=== PATIENT | female | born 1950 | race Caucasian/White ===

== ENCOUNTER 2021-10-03 22:28 | Emergency (ER) | payer MEDICARE, BC, SELFPAY ==
[2021-10-03 22:40] VITALS: BP 216/98; PULSE 88; RESP 18; TEMP 37.2; O2SAT 97; BMI 26.5
--- NOTE | 2021-10-03 23:31 | ED.GENADULT ---
HPI - General Adult General Chief complaint: Extremity Pain/Injury, Upper Stated complaint: Possible Clot Left Arm Time Seen by Provider: 10/03/21 23:18 Source: patient Mode of arrival: ambulatory Limitations: no limitations History of Present Illness HPI narrative: 71-year-old female coming in today complaining of a painful vein in the left upper arm. States that she just noticed it recently. On the 20 of September she did have an IV in that arm. But the pain in that vein did start until couple days ago. She denies any systemic symptoms such as fevers or chills. No nausea or vomiting. No swelling of that extremity. She is quite concerned because she does have a history of high blood pressure that she has not been able to control. Patient states that she has reactions to multiple medications and she has taken 22 different blood pressure medications that all have caused some kind of side effect including her throat closing. She does have an appoint with her filament tester in 2 days to discuss next steps. She states that her blood pressure is generally around 200 systolic it has been like that for as ?long as I can remember?. Given her multitude of side effects to blood pressure medications, patient does not wish to have any medication for her blood pressure given to her today. Related Data Home Medications Medication Instructions Recorded Confirmed alprazolam 0.25 mg tablet mg 10/03/21 cholecalciferol (vitamin D3) 50 10/03/21 mcg (2,000 unit) tablet fluticasone propionate 50 INTRANASAL 10/03/21 mcg/actuation nasal spray,suspension meclizine 12.5 mg tablet mg 10/03/21 nitroglycerin 0.4 mg sublingual mg 10/03/21 tablet ondansetron 4 mg disintegrating mg 10/03/21 tablet Allergies Allergy/AdvReac Type Severity Reaction Status Date / Time morphine Allergy Verified 10/03/21 22:45 Penicillins Allergy throat Verified 10/03/21 22:45 closing bp meds Allergy throat Uncoded 10/03/21 22:45 closing Review of Systems Status of ROS: Reports: 10 or more systems reviewed and unremarkable except as noted in History and below [facility] Social History Smoking Status: Never smoker How often do you have a drink containing alcohol: never AUDIT-C Alcohol total score: 0 Non-prescribed substance use: denies use Exam Narrative: Exam Narrative: Well-nourished well-developed patient in no acute distress. Alert and oriented. Answers questions appropriately. Mood and affect are appropriate. Thoughts are goal oriented and rational. No tangential or magical thinking noted. Patient speaks in full sentences without needing to catch their breath. HEENT: Normocephalic atraumatic. Pupils are equally round reactive to light. Extraocular muscles are intact. Conjunctivae are moist without any icterus noted. Cardiovascular: Heart is regular rate and rhythm S1 and S2 are preset. Extremities: Upper left extremity has normal appearance except for on the anterior upper arm she has a prominent vein. It is not as hard, there is no significant cord appreciated however it is tender to palpation. She has no tenderness in the remainder of the arm just directly over that pain. Skin: Well perfused without any obvious rashes. Const: Vital Signs, click to edit/add: Vital Signs - 24 hr 10/03/21 22:40 Temperature 99.0 F Pulse Rate [Left P ulse Oximeter] 88 Respiratory Rate 18 Blood Pressure [Ri ght Upper Arm] 216/98 H Pulse Oximetry 97 Course Vital Signs Vital signs: Initial Vital Signs Temperature 99.0 F 10/03/21 22:40 Temperature Source Temporal Artery Scan 10/03/21 22:40 Pulse Rate 88 10/03/21 22:40 Respiratory Rate 18 10/03/21 22:40 Blood Pressure 216/98 H 10/03/21 22:40 Blood Pressure Mean 137 10/03/21 22:40 Blood Pressure Position Sitting 10/03/21 22:40 Pulse Oximetry 97 10/03/21 22:40 Oxygen Delivery Method 10/03/21 22:40 Vital Signs Temperature 99.0 F 10/03/21 22:40 Pulse Rate 88 10/03/21 22:40 Respiratory Rate 18 10/03/21 22:40 Blood Pressure 216/98 H 10/03/21 22:40 Pulse Oximetry 97 10/03/21 22:40 Temperature 99.0 F 10/03/21 22:40 Pulse Rate 88 10/03/21 22:40 Respiratory Rate 18 10/03/21 22:40 Blood Pressure 216/98 H 10/03/21 22:40 Pulse Oximetry 97 10/03/21 22:40 Medical Decision Making MDM Narrative Medical decision making narrative: 71-year-old female with an uncomfortable vein in the left upper arm -question a very mild superficial thrombophlebitis. We discussed ibuprofen or a daily baby aspirin and heat to the area. We discussed reasons to follow up. As far as her blood pressure goes again we decided not to treat her at this time given her history and she already has a follow-up appointment scheduled. She understands that if she develops chest pain, weakness, neurologic deficits she should return right away. Patient was agreeable and had no other questions. Medical Records Medical records reviewed: Yes I reviewed the patient's medical records Discharge Plan Discharge Clinical Impression: Superficial thrombophlebitis Patient Disposition: Home, Self-Care Condition: Stable Additional Instructions: Okay to take ibuprofen daily or a daily baby aspirin for a few days until the arm feels better. Okay to use heat to the area 3 times a day for 20 minutes, do not apply heat directly to skin. Return to the ER if you feel that things are getting worse instead of better. Prescriptions: No Action meclizine 12.5 mg tablet 0RF Label Comments: Every 8 Hours as needed alprazolam 0.25 mg tablet 0RF Label Comments: TAKE ONE-HALF TABLET BY MOUTH THREE TIMES DAILY NEEDED nitroglycerin 0.4 mg tablet, sublingual 0RF Label Comments: Every 5 Minutes X 3 as needed ondansetron 4 mg tablet,disintegrating 0RF Label Comments: Every 6 Hours as needed fluticasone propionate 50 mcg/actuation spray,suspension INTRANASAL 0RF Label Comments: Twice A Day as needed cholecalciferol (vitamin D3) 50 mcg (2,000 unit) tablet 0RF Label Comments: Daily Stand Alone Forms: [employer] Info Instructions
[2021-10-03 23:50] VITALS: PULSE 83; RESP 16; O2SAT 98
== END 2021-10-03 23:56 | disposition home or self-care (01) ==
LOC: ED 23:45
PROVIDERS: Emergency Provider Family Medicine; PCP Physician Assistant Medical
DX: I80.8 Phlebitis and thrombophlebitis of other sites (principal)
CPT/HCPCS: 99282; 99283

== ENCOUNTER 2022-02-06 21:47 | Emergency (ER) | payer MEDICARE, BC, SELFPAY ==
[2022-02-06] VITALS (10 sets, daily range): BP systolic 144–214; BP diastolic 83–133; PULSE 74–88; RESP 24; TEMP 36.2; O2SAT 93–97; BMI 26.5
[2022-02-06 23:44] LABS: Basophils Absolute Auto 0.02 K/uL (0.00-0.30); Basophils Percent Auto 0.3 % (0.0-3.0); Eosinophils Absolute Auto 0.09 K/uL (0.00-0.50); Eosinophils Percent Auto 1.4 % (0.0-7.0); Hematocrit 41.8 % (33.0-51.0); Hemoglobin* 14.1 gm/dL (12.0-16.0); Immature Granulocytes Abs Auto 0.05 K/uL (0.00-0.30); Immature Granulocytes Pct Auto 0.8 %; Lymphocytes Percent Auto 25.6 % (20-44); Mean Corpuscular HGB Conc 34 gm/dL (32-36); Mean Corpuscular Hemoglobin 29 pg (26-34); Mean Corpuscular Volume 86 fL (80-100); Monocytes Percent Auto 11.2 % (0.0-11.0); Neutrophils Percent Auto 60.7 % (42.0-72.0); Platelet Count* 230 K/uL (140-440); RDW Coefficient of Variation % 12.9 % (11.5-15.5); Red Blood Count 4.88 m/uL (4.00-5.20); White Blood Count* 6.26 K/uL (4.50-11.00)
[2022-02-06 23:45] LABS: Chloride* 107 mmol/L (96-114); Potassium* 3.2 mmol/L (3.6-5.1); Sodium* 140 mmol/L (135-149)
[2022-02-06 23:48] LABS: Blood Urea Nitrogen* 18 mg/dL (7-30); Carbon Dioxide* 26 mmol/L (20-32); Creatinine* 0.9 mg/dL (0.5-1.5); Est. Creatinine Clearance* 40.81; Estimated Glomerular Filt Rate 68 ml/min
[2022-02-06 23:49] LABS: Calcium* 9.1 mg/dL (8.4-10.6); Glucose* 129 mg/dL (60-115)
[2022-02-06 23:50] LABS: Slide Review Reflex No
--- NOTE | 2022-02-06 23:50 | ED.CHESTPAIN ---
HPI - Chest Pain General Chief Complaint: High Blood Pressure Stated Complaint: blood pressure dropped from 196/100 to 140/185 Time Seen by Provider: 02/06/22 23:17 Source: patient Mode of arrival: ambulatory Limitations: no limitations History of Present Illness HPI narrative: 71-year-old female presents to the emergency department for elevated blood pressure in sensation of chest tightness. She reports that she has a known history of hypertension and her blood pressure runs very high. She reports that she has seen cardiology in multiple providers. She has side effects every medication and therefore cannot take them. It does not sound based on her description as though any of these are anaphylactic. She reports that she has a supply of nitroglycerin that she can take for chest pain and has been told she has 25% blockages in the past. Apparently this was given by husker operator. She does take aspirin 81 mg daily. In took this today. She states that act her blood pressure as she typically does several times daily this evening and noted that her blood pressure was in the 190s over 100 systolic which is not terribly atypical for her. She says that she felt very anxious after this and started feeling a little lightheaded with some spasm E feeling in the chest. Because of this, she took her nitroglycerin. Her symptoms have abated. Returned that her blood pressure had dropped from the 190s to 140s. Was prior to taking the nitroglycerin per her report though I am not quite clear of the details and it sounds more so as though her blood pressure dropped after taking her nitroglycerin them having a hard time getting this clarified based on our discussion. She denies any chest pain on exertion. The chest pain and spasm have abated. This started approximately 9:00 p.m. and because unfortunately we were quite busy I evaluated her at about 11:30 p.m. and the labs were drawn about 11:00 p.m.. She reports to me that she does not have reactions to the nitroglycerin. Denies any neurological changes or persistent symptoms. She felt a little short of breath earlier today but this has also resolved. No prior history of stroke, TIA or other similar symptoms. She tells me that she has a known history of left ventricular hypertrophy and this has been present for several years, it sounds like this was diagnosed on echo in the past. Other than the aspirin, she does not take anticoagulants. She tells me that her only other prescription medications or half of a Xanax at night and sometimes in the morning also for anxiety. This is other than the aspirin that she already notes. He reports allergies to morphine and penicillin as well as all other blood pressure medications though I cannot L these in their entirety. Surgical history is negative for recent procedures. Socially she denies any tobacco or pertinent travel. ROS is notable for anxiety, the respiratory, HEENT, neurological and cardiovascular symptoms as above. Otherwise she denies times 12 systems. Related Data Home Medications Medication Instructions Recorded Confirmed alprazolam 0.25 mg tablet mg 10/03/21 cholecalciferol (vitamin D3) 50 10/03/21 mcg (2,000 unit) tablet fluticasone propionate 50 intranasal 10/03/21 mcg/actuation nasal spray,suspension meclizine 12.5 mg tablet mg 10/03/21 nitroglycerin 0.4 mg sublingual mg 10/03/21 tablet ondansetron 4 mg disintegrating mg 10/03/21 tablet Allergies Allergy/AdvReac Type Severity Reaction Status Date / Time morphine Allergy Verified 10/03/21 22:45 Penicillins Allergy throat Verified 10/03/21 22:45 closing bp meds Allergy throat Uncoded 10/03/21 22:45 closing PFSH PFSH Social History Smoking Status: Never smoker How often do you have a drink containing alcohol: never AUDIT-C Alcohol total score: 0 Non-prescribed substance use: denies use service: No Exam Const Vital Signs, click to edit/add: Vital Signs - 24 hr 02/06/22 22:01 02/06/22 22:54 02/06/22 22:57 Temperature 97.2 F L Pulse Rate 88 81 Pulse Rate [Pulse Oximeter] 85 Respiratory Rate 24 Blood Pressure 178/94 H Blood Pressure [Left Forearm] 192/108 H Blood Pressure [Left Upper Arm] 214/102 H Pulse Oximetry 97 95 95 Oxygen Delivery Method Room Air 02/06/22 23:00 02/06/22 23:02 02/06/22 23:20 Temperature Pulse Rate 76 78 78 Pulse Rate [Pulse Oximeter] Respiratory Rate Blood Pressure 187/98 H Blood Pressure [Left Forearm] Blood Pressure [Left Upper Arm] Pulse Oximetry 96 93 94 Oxygen Delivery Method 02/06/22 23:22 02/06/22 23:43 02/06/22 23:44 Temperature Pulse Rate 82 80 79 Pulse Rate [Pulse Oximeter] Respiratory Rate Blood Pressure 172/87 H 144/133 H Blood Pressure [Left Forearm] Blood Pressure [Left Upper Arm] Pulse Oximetry 95 97 97 Oxygen Delivery Method 02/06/22 23:46 02/07/22 00:00 02/07/22 00:02 Temperature Pulse Rate 74 75 74 Pulse Rate [Pulse Oximeter] Respiratory Rate Blood Pressure 179/83 H 146/103 H Blood Pressure [Left Forearm] Blood Pressure [Left Upper Arm] Pulse Oximetry 96 96 96 Oxygen Delivery Method 02/07/22 00:20 02/07/22 00:22 02/07/22 00:40 Temperature Pulse Rate 76 77 74 Pulse Rate [Pulse Oximeter] Respiratory Rate Blood Pressure 155/131 H Blood Pressure [Left Forearm] Blood Pressure [Left Upper Arm] Pulse Oximetry 97 97 95 Oxygen Delivery Method 02/07/22 00:42 02/07/22 01:00 02/07/22 01:02 Temperature Pulse Rate 73 73 71 Pulse Rate [Pulse Oximeter] Respiratory Rate Blood Pressure 176/95 H 181/113 H Blood Pressure [Left Forearm] Blood Pressure [Left Upper Arm] Pulse Oximetry 95 94 95 Oxygen Delivery Method Documenting provider has reviewed patient's vital signs: yes Common normals: no apparent distress General appearance: cooperative, comfortable and well kempt HENDE Common normals: normocephalic and TM's normal bilaterally Head and scalp: normocephalic Tympanic membrane: TM's normal bilaterally Mouth: oral and palatal mucosa normal Throat: posterior oropharynx normal Eye Common normals: conjunctivae normal and no scleral icterus Conjunctiva: conjunctiva(e) normal Neck & C-Spine Common normals: full ROM and no lymphadenopathy Resp Common normals: normal respiratory effort and clear to auscultation bilaterally Effort & inspection: able to speak in complete sentences Auscultation: clear to auscultation bilaterally Cardio Common normals: regular rate, regular rhythm, S1 normal heart sound, S2 normal heart sound, no murmurs and peripheral pulses 2+ throughout Rate: regular rate Rhythm: regular rhythm Heart sounds: S1 normal and S2 normal Peripheral pulses: pulses 2+ throughout Extremity Common normals: normal to inspection, normal capillary refill and no pedal edema Neuro Speech: speech normal Motor exam: strength 5/5 throughout, no tremor noted and no movement abnormalities noted Psych Appearance: well kempt Mood and affect: anxious Insight: insight good Judgement: judgment good Skin Common normals: no rashes or lesions noted General skin exam: no rashes or lesions noted Course Vital Signs Vital signs: Initial Vital Signs Temperature 97.2 F L 02/06/22 22:01 Temperature Source Temporal Artery Scan 02/06/22 22:01 Pulse Rate 85 02/06/22 22:01 Pulse Rhythm 02/06/22 22:01 Respiratory Rate 24 02/06/22 22:01 Blood Pressure 214/102 H 02/06/22 22:01 Blood Pressure Mean 139 02/06/22 22:01 Pulse Oximetry 97 02/06/22 22:01 Oxygen Delivery Method 02/06/22 22:01 Vital Signs Temperature 97.2 F L 02/06/22 22:01 Pulse Rate 85 02/06/22 22:01 Respiratory Rate 24 02/06/22 22:01 Blood Pressure 214/102 H 02/06/22 22:01 Pulse Oximetry 97 02/06/22 22:01 Oxygen Delivery Method 02/06/22 22:01 Temperature 97.2 F L 02/06/22 22:01 Pulse Rate 71 02/07/22 01:02 Respiratory Rate 24 02/06/22 22:01 Blood Pressure 181/113 H 02/07/22 01:02 Pulse Oximetry 95 02/07/22 01:02 Oxygen Delivery Method 02/06/22 22:01 MDM - Chest Pain MDM Narrative Medical decision making narrative: High risk for coronary artery disease based on untreated hypertension. Blood pressure when I was in the room is 170s over 80s which is somewhat reassuring and she is now asymptomatic. Do not recommend a head CT as she is not having any persistent neurological changes. Unclear based on her description if her blood pressure dropped before or after taking nitroglycerin. It did not drop to truly hypotensive levels. This would be expected after taking nitroglycerin if this in fact was the course of the night. Would recommend serial troponins, chest x-ray, cardiac monitoring. She has already taken nitroglycerin earlier tonight and has already taken adequate aspirin today. Counseled patient that I do not have a suggestion for management of her hypertension long-term nor should I be making a recommendation as she cannot follow-up with me to discuss this further if she has further side effects. Re-evaluated patient: They are unchanged at this time. Logical tracings reviewed that she has had no significant arrhythmia while here. Troponins are negative x2 and the 2nd was drawn 4 hours from onset of symptoms. There are no signs of ischemia. Chest x-ray is also reviewed. Per my interpretation, there is some mild cardiomegaly which we are aware of from her previous visits but no signs of congestive heart failure, pleural effusions or other abnormalities. Laboratory studies are reviewed and shared with patient as well. There are no signs of ischemia. Counseled patient that I do think she will continue to have these episodes and hope that we can get her hypertension under better control outpatient. Would recommend that she make a follow-up with her primary care provider within the next 2 weeks to further discuss. It is curious that she has tolerated short-acting nitroglycerin and I wonder if she would tolerate Imdur. She tells me that she did not tolerate isosorbide dinitrate in the past. She may continue p.r.n. use of her nitroglycerin if she finds this helpful. Medical Records Data Attestation: I reviewed the patient's medical records. Lab Data Attestation: I reviewed the patient's lab results. Labs: Lab Results 02/06/22 02/06/22 02/06/22 Range/Units 23:12 23:12 23:38 WBC 6.26 (4.50-11.00) K/uL RBC 4.88 (4.00-5.20) m/uL Hgb 14.1 (12.0-16.0) gm/dL Hct 41.8 (33.0-51.0) % MCV 86 (80-100) fL MCH 29 (26-34) pg MCHC 34 (32-36) gm/dL RDW Coeff of Jaylen 12.9 (11.5-15.5) % Plt Count 230 (140-440) K/uL Neut % (Auto) 60.7 (42.0-72.0) % Lymph % (Auto) 25.6 (20-44) % [place] % (Auto) 11.2 H (0.0-11.0) % Eos % (Auto) 1.4 (0.0-7.0) % Baso % (Auto) 0.3 (0.0-3.0) % Neut # (Auto) 3.80 (1.7-7.0) K/uL Lymph # (Auto) 1.60 (0.90-2.90) K/uL [place] # (Auto) 0.70 (0.00-0.90) K/UL Eos # (Auto) 0.09 (0.00-0.50) K/uL Baso # (Auto) 0.02 (0.00-0.30) K/uL Abs Immat Gran (auto) 0.05 (0.00-0.30) K/uL Imm/Tot Granulo (auto) 0.8 % Sodium 140 (135-149) mmol/L Potassium 3.2 L (3.6-5.1) mmol/L Chloride 107 (96-114) mmol/L Carbon Dioxide 26 (20-32) mmol/L BUN 18 (7-30) mg/dL Creatinine 0.9 (0.5-1.5) mg/dL Estimated Creat Clear 40.81 Estimated GFR 68 ml/min Glucose 129 H (60-115) mg/dL Calcium 9.1 (8.4-10.6) mg/dL Troponin I < 0.01 L (0.01-0.04) ng/mL C-Reactive Protein < 0.5 L (0.5-1.0) mg/dL NT-Pro-B Natriuret Pep 118 (0-125) PG/mL POC Troponin I 0.00 L (0.01-0.04) ng/ml 02/07/22 Range/Units 00:45 WBC (4.50-11.00) K/uL RBC (4.00-5.20) m/uL Hgb (12.0-16.0) gm/dL Hct (33.0-51.0) % MCV (80-100) fL MCH (26-34) pg MCHC (32-36) gm/dL RDW Coeff of Jaylen (11.5-15.5) % Plt Count (140-440) K/uL Neut % (Auto) (42.0-72.0) % Lymph % (Auto) (20-44) % [place] % (Auto) (0.0-11.0) % Eos % (Auto) (0.0-7.0) % Baso % (Auto) (0.0-3.0) % Neut # (Auto) (1.7-7.0) K/uL Lymph # (Auto) (0.90-2.90) K/uL [place] # (Auto) (0.00-0.90) K/UL Eos # (Auto) (0.00-0.50) K/uL Baso # (Auto) (0.00-0.30) K/uL Abs Immat Gran (auto) (0.00-0.30) K/uL Imm/Tot Granulo (auto) % Sodium (135-149) mmol/L Potassium (3.6-5.1) mmol/L Chloride (96-114) mmol/L Carbon Dioxide (20-32) mmol/L BUN (7-30) mg/dL Creatinine (0.5-1.5) mg/dL Estimated Creat Clear Estimated GFR ml/min Glucose (60-115) mg/dL Calcium (8.4-10.6) mg/dL Troponin I (0.01-0.04) ng/mL C-Reactive Protein (0.5-1.0) mg/dL NT-Pro-B Natriuret Pep (0-125) PG/mL POC Troponin I 0.00 L (0.01-0.04) ng/ml Imaging Data Chest x-ray: Attestation: I have reviewed the pertinent imaging results. Radiologist's impression: IMPRESSION: Normal chest two views. Dictated by Jamey Duran MD @ 02/07/2022 12:54:37 AM ECG Data Attestation: I personally reviewed and interpreted this ECG as follows: Prior ECG tracings: available for review Interpretation: Slight leftward axis. Normal sinus rhythm with no signs of ischemia, ST or T-wave abnormalities.. Borderline criteria for LVH. Similar to previous tracings. Discharge Plan Discharge Clinical Impression: Hypertension Condition: Stable Instructions: Hypertension (ED) Additional Instructions: There are no signs of abnormal heart rhythm or lack of blood flow to the heart such as heart attack today. This is reassuring. As with her other doctors, I think it is important that we find a medicine for your blood pressure that you can tolerate. We will continue to have spells like this elevated blood pressure and your body trying to compensate for this. Please make a followup with her primary care provider within the next 2 weeks to discuss this again. As we discussed, your likely to have side effects to most medications but the benefit may outweigh the risk. I hope you can find 1 that the side effects are tolerable even if they are not absent. If you have severe chest pain, neurological changes or worsening of symptoms, please come back to the emergency department. Continue taking your daily aspirin as well. Activity Level: No Restrictions Discharge Diet: Regular Prescriptions: No Action meclizine 12.5 mg tablet Label Comments: Every 8 Hours as needed alprazolam 0.25 mg tablet Label Comments: TAKE ONE-HALF TABLET BY MOUTH THREE TIMES DAILY NEEDED nitroglycerin 0.4 mg tablet, sublingual Label Comments: Every 5 Minutes X 3 as needed ondansetron 4 mg tablet,disintegrating Label Comments: Every 6 Hours as needed fluticasone propionate 50 mcg/actuation spray,suspension INTRANASAL Label Comments: Twice A Day as needed cholecalciferol (vitamin D3) 50 mcg (2,000 unit) tablet Label Comments: Daily Follow Up/Referrals: Kyra Perera PA-C [Primary Care Provider] - Stand Alone Forms: [email or web address] Info Instructions
[2022-02-06 23:56] LABS: C Reactive Protein* < 0.5 mg/dL (0.5-1.0)
[2022-02-06 23:58] LABS: NT Pro B Type NatriureticPept* 118 PG/mL (0-125)
--- NOTE | 2022-02-06 23:58 | CRLHL7_ITS ---
For Patients: As a result of the Century Cures Act, medical imaging exams and procedure reports are released immediately into your electronic medical record. You may view this report before your referring provider. If you have questions, please contact your health care provider. INDICATION: Chest pain COMPARISON: Portable chest from 03/10/2021 FINDINGS: PA and lateral views of the chest were obtained. The lungs remain clear. No focal or diffuse infiltrates are present. There is no sign of pneumothorax or abnormality of the ribs to correlate with the history of chest pain. The heart remains normal in size. The mediastinum is normal in appearance. The osseous structures are normal in appearance for the patient`s age. IMPRESSION: Normal chest two views. Dictated by Jamey Duran MD @ 02/07/2022 12:54:37 AM (Electronically Signed)
[2022-02-07] VITALS (8 sets, daily range): BP systolic 146–181; BP diastolic 95–131; PULSE 71–77; O2SAT 94–97
[2022-02-07 00:01] LABS: Troponin I* < 0.01 ng/mL (0.01-0.04)
== END 2022-02-07 01:29 | disposition home or self-care (01) ==
PROVIDERS: Emergency Provider Family Medicine; PCP Physician Assistant Medical
DX: I10 Essential (primary) hypertension (principal)
CPT/HCPCS: 36415; 71046; 80048; 83880; 84484; 85025; 86140; 93005; 99283; 99284; 99285

== ENCOUNTER 2022-02-15 19:26 | Emergency (ER) | payer MEDICARE, BC, SELFPAY ==
[2022-02-15 19:38] VITALS: BP 222/113; PULSE 80; RESP 18; TEMP 36.6; O2SAT 97; BMI 25.6
[2022-02-15 20:00] VITALS: BP 204/101; PULSE 71; O2SAT 94
[2022-02-15] MEDS: ASPIRIN 81 MG TAB.CHEW 324 MG PO (20:03)
[2022-02-15] MEDS: diazePAM 5 MG TABLET PO (20:03)
--- NOTE | 2022-02-15 20:07 | ED_ITS ---
HPI - General Adult General Time Seen by Provider: 20:07 <Tulio Carmen MD - Last Filed: 02/16/22 08:41> Date Seen: 02/15/22 <Tulio Carmen MD - Last Filed: 02/16/22 08:41> Chief complaint: Arrhythmia/Palpitations <Tulio Carmen MD - Last Filed: 02/16/22 08:41> Stated complaint: Irregular Heart Activity <Tulio Carmen MD - Last Filed: 02/16/22 08:41> Time Seen by Provider: 02/15/22 19:30 <Tulio Carmen MD - Last Filed: 02/16/22 08:41> Source: patient <Tulio Carmen MD - Last Filed: 02/16/22 08:41> Mode of arrival: ambulatory <Tulio Carmen MD - Last Filed: 02/16/22 08:41> Limitations: no limitations <Tulio Carmen MD - Last Filed: 02/16/22 08:41> History of Present Illness HPI narrative: Patient is a 71 year white female that has had a history of significant problems with blood pressure medications and blood pressure treatment, she has consulted with well flow operator in the past. They have really found nothing that works for her. Patient heavenly was visiting her brother felt some anxiety but also felt little bit lightheaded and she presented the ER her blood pressure is elevated here in the 220 range systolic. She has tried multiple medications for blood pressure and they are listed under her allergies, as she has tends to get ?throat tightening?, and is not interested in taking blood pressure medicine. She has taken nitroglycerin sublingual in the past she tried Imdur recently from her primary care doctor Kyra Marroquin and that was unsuccessful she got a headache and could not tolerate it. The patient reports she has high energy and high motion, and does have fairly regular anxiety. She really has no chest pain no neurologic symptoms, she had a negative rule out about a week ago and had similar presentation. No leg swelling edema bleeding or clotting problems <Tulio Carmen MD - Last Filed: 02/16/22 08:41> Related Data Home medications: Home Medications Medication Instructions Recorded Confirmed alprazolam 0.25 mg tablet 0.25 mg PO TID PRN 10/03/21 02/15/22 cholecalciferol (vitamin D3) 50 50 mcg PO DAILY 10/03/21 02/15/22 mcg (2,000 unit) tablet fluticasone propionate 50 1 - 2 spray intranasal BID PRN 10/03/21 02/15/22 mcg/actuation nasal spray,suspension meclizine 12.5 mg tablet 12.5 mg PO TID PRN 10/03/21 02/15/22 nitroglycerin 0.4 mg sublingual 0.4 mg sublingual Q5M PRN 10/03/21 02/15/22 tablet ondansetron 4 mg disintegrating 4 mg translingual Q6H PRN 10/03/21 02/15/22 tablet aspirin 81 mg capsule 81 mg PO DAILY 02/15/22 02/15/22 <Tulio Carmen MD - Last Filed: 02/16/22 08:41> Allergies/adverse reactions: Allergies Allergy/AdvReac Type Severity Reaction Status Date / Time Penicillins Allergy Severe Throat Verified 02/15/22 19:54 Closing amlodipine Allergy Intermediate Palpitation Verified 02/15/22 19:54 s atorvastatin Allergy Intermediate Myalgia Verified 02/15/22 19:54 chlorthalidone Allergy Intermediate Dyspnea Verified 02/15/22 19:54 clonidine Allergy Intermediate Dyspnea Verified 02/15/22 19:54 diltiazem Allergy Intermediate Anxiety Verified 02/15/22 19:54 doxazosin Allergy Intermediate Bleeding Verified 02/15/22 19:54 hydralazine Allergy Intermediate Tachycardia Verified 02/15/22 19:54 hydrochlorothiazide Allergy Intermediate Dyspnea Verified 02/15/22 19:54 labetalol Allergy Intermediate Dyspnea Verified 02/15/22 19:54 lisinopril Allergy Intermediate Chest Pain Verified 02/15/22 19:54 lorazepam [From Ativan] Allergy Intermediate Depression Verified 02/15/22 19:54 losartan Allergy Intermediate Dyspnea Verified 02/15/22 19:54 methyldopa Allergy Intermediate Rash Verified 02/15/22 19:54 metoprolol Allergy Intermediate Dyspnea Verified 02/15/22 19:54 metronidazole [From Flagyl] Allergy Intermediate Hives Verified 02/15/22 19:54 rosuvastatin Allergy Intermediate Myalgia Verified 02/15/22 19:54 verapamil Allergy Intermediate Dyspnea Verified 02/15/22 19:54 morphine Allergy Mild Hives Verified 02/15/22 19:54 Sulfa (Sulfonamide Allergy Mild Hives Verified 02/15/22 19:54 Antibiotics) hydrocodone AdvReac Intermediate Nausea/Vomi Verified 02/15/22 19:54 ting <Tulio Carmen MD - Last Filed: 02/16/22 08:41> Review of Systems Status of ROS: Reports: 6 or more systems reviewed and unremarkable except as noted in History and below <Tulio Carmen MD - Last Filed: 02/16/22 08:41> [facility] Social History: Social History Smoking Status: Never smoker How often do you have a drink containing alcohol: never AUDIT-C Alcohol total score: 0 Non-prescribed substance use: denies use service: No <Tulio Carmen MD - Last Filed: 02/16/22 08:41> Exam Narrative: Exam Narrative: Objective: In general patient is in no apparent distress, mildly anxious very pleasant Vital signs show blood pressure 222/113 O2 sat excellent afebrile pulse is 80 and regular HEENT unremarkable Lungs are clear Heart rhythm regular without murmur Extremities are no edema Neurologic grossly nonfocal moving all extremities <Tulio Carmen MD - Last Filed: 02/16/22 08:41> Const: Vital Signs, click to edit/add: Vital Signs - 24 hr 02/15/22 19:38 02/15/22 20:00 02/15/22 20:30 Temperature 97.9 F Pulse Rate [Right Pulse Oximeter] 80 71 73 Respiratory Rate 18 Blood Pressure [Le ft Upper Arm] 222/113 H 204/101 H 169/91 H Pulse Oximetry 97 94 97 Oxygen Delivery Me thod Room Air Room Air Room Air 02/15/22 22:01 Temperature Pulse Rate [Right Pulse Oximeter] 70 Respiratory Rate Blood Pressure [Le ft Upper Arm] 190/101 H Pulse Oximetry 96 Oxygen Delivery Me thod Room Air <Tulio Carmen MD - Last Filed: 02/16/22 08:41> Vital Signs, click to edit/add: Vital Signs - 24 hr 02/15/22 19:38 02/15/22 20:00 02/15/22 20:30 Temperature 97.9 F Pulse Rate [Right Pulse Oximeter] 80 71 73 Respiratory Rate 18 Blood Pressure [Le ft Upper Arm] 222/113 H 204/101 H 169/91 H Pulse Oximetry 97 94 97 Oxygen Delivery Me thod Room Air Room Air Room Air 02/15/22 22:01 Temperature Pulse Rate [Right Pulse Oximeter] 70 Respiratory Rate Blood Pressure [Le ft Upper Arm] 190/101 H Pulse Oximetry 96 Oxygen Delivery Me thod Room Air <Lev Young MD - Last Filed: 02/15/22 21:46> Course Vital Signs Vital signs: Initial Vital Signs Temperature 97.9 F 02/15/22 19:38 Temperature Source Temporal Artery Scan 02/15/22 19:38 Pulse Rate 80 02/15/22 19:38 Respiratory Rate 18 02/15/22 19:38 Blood Pressure 222/113 H 02/15/22 19:38 Blood Pressure Mean 149 02/15/22 19:38 Blood Pressure Position Sitting 02/15/22 19:38 Pulse Oximetry 97 02/15/22 19:38 Oxygen Delivery Method 02/15/22 19:38 Vital Signs Temperature 97.9 F 02/15/22 19:38 Pulse Rate 80 02/15/22 19:38 Respiratory Rate 18 02/15/22 19:38 Blood Pressure 222/113 H 02/15/22 19:38 Pulse Oximetry 97 02/15/22 19:38 Oxygen Delivery Method 02/15/22 19:38 Temperature 97.9 F 02/15/22 19:38 Pulse Rate 70 02/15/22 22:01 Respiratory Rate 18 02/15/22 19:38 Blood Pressure 190/101 H 02/15/22 22:01 Pulse Oximetry 96 02/15/22 22:01 Oxygen Delivery Method 02/15/22 22:01 <Tulio Carmen MD - Last Filed: 02/16/22 08:41> Initial Vital Signs Temperature 97.9 F 02/15/22 19:38 Temperature Source Temporal Artery Scan 02/15/22 19:38 Pulse Rate 80 02/15/22 19:38 Respiratory Rate 18 02/15/22 19:38 Blood Pressure 222/113 H 02/15/22 19:38 Blood Pressure Mean 149 02/15/22 19:38 Blood Pressure Position Sitting 02/15/22 19:38 Pulse Oximetry 97 02/15/22 19:38 Oxygen Delivery Method 02/15/22 19:38 Vital Signs Temperature 97.9 F 02/15/22 19:38 Pulse Rate 80 02/15/22 19:38 Respiratory Rate 18 02/15/22 19:38 Blood Pressure 222/113 H 02/15/22 19:38 Pulse Oximetry 97 02/15/22 19:38 Oxygen Delivery Method 02/15/22 19:38 Temperature 97.9 F 02/15/22 19:38 Pulse Rate 70 02/15/22 22:01 Respiratory Rate 18 02/15/22 19:38 Blood Pressure 190/101 H 02/15/22 22:01 Pulse Oximetry 96 02/15/22 22:01 Oxygen Delivery Method 02/15/22 22:01 <Lev Young MD - Last Filed: 02/15/22 21:46> Medical Decision Making MDM Narrative Medical decision making narrative: Patient initially reported her heart was ?irregular?. Appears to be in a regular sinus rhythm. She has had Holter monitors in the past as well. She does report that she feels her heart jump when she has a PVC on her monitor which is fairly rare and she has single PVCs. We discussed at length that if blood pressure medicines are unavailable then perhaps controlling her anxiety might help lower her blood pressure, rehydration might help as well and will give her L saline, check her laboratories, check a troponin, and give her 5 mg oral Valium. She likely will need to rediscuss with her primary care doctor regarding controlling the blood pressure and monitoring it and controlling or anxiety on a regular basis. Patient certainly is at higher risk for cardiac issues given her blood pressure if it remains elevated and has been for prolonged periods without treatment., but at this point on have any additional recommendations for other than trying to help her anxiety and see if that would help her blood pressure is well. She does have the ability take Xanax and Valium morning and night per her primary care doctor and that would be encouraged and month monitoring her blood pressure. Will watch her blood pressure here and see if there is any changes after medication. <Tulio Carmen MD - Last Filed: 02/16/22 08:41> Patient initially reported her heart was ?irregular?. Appears to be in a regular sinus rhythm. She has had Holter monitors in the past as well. She does report that she feels her heart jump when she has a PVC on her monitor which is fairly rare and she has single PVCs. We discussed at length that if blood pressure medicines are unavailable then perhaps controlling her anxiety might help lower her blood pressure, rehydration might help as well and will give her L saline, check her laboratories, check a troponin, and give her 5 mg oral Valium. She likely will need to rediscuss with her primary care doctor regarding controlling the blood pressure and monitoring it and controlling or anxiety on a regular basis. Patient certainly is at higher risk for cardiac issues given her blood pressure if it remains elevated and has been for prolonged periods without treatment., but at this point on have any additional recommendations for other than trying to help her anxiety and see if that would help her blood pressure is well. She does have the ability take Xanax and Valium morning and night per her primary care doctor and that would be encouraged and month monitoring her blood pressure. Will watch her blood pressure here and see if there is any changes after medication. Lab results returned with reassuring findings. In particular her troponin is 0. Additionally her blood pressure did decrease to a systolic value of 169. This patient is okay to return home and is encouraged to follow-up with her primary physician for ongoing management. Insert my name <Lev Young MD - Last Filed: 02/15/22 21:46> Lab Data Labs: Lab Results 02/15/22 02/15/22 Range/Units 20:10 20:10 WBC 5.02 (4.50-11.00) K/uL RBC 5.08 (4.00-5.20) m/uL Hgb 14.7 (12.0-16.0) gm/dL Hct 43.8 (33.0-51.0) % MCV 86 (80-100) fL MCH 29 (26-34) pg MCHC 34 (32-36) gm/dL RDW Coeff of Jaylen 13.3 (11.5-15.5) % Plt Count 223 (140-440) K/uL Neut % (Auto) 52.7 (42.0-72.0) % Lymph % (Auto) 34.5 (20-44) % [place] % (Auto) 9.4 (0.0-11.0) % Eos % (Auto) 2.8 (0.0-7.0) % Baso % (Auto) 0.6 (0.0-3.0) % Neut # (Auto) 2.60 (1.7-7.0) K/uL Lymph # (Auto) 1.70 (0.90-2.90) K/uL [place] # (Auto) 0.50 (0.00-0.90) K/UL Eos # (Auto) 0.10 (0.00-0.50) K/uL Baso # (Auto) 0.00 (0.00-0.30) K/uL Abs Immat Gran (auto) 0.00 (0.00-0.30) K/uL Imm/Tot Granulo (auto) 0.0 % Sodium 139 (135-149) mmol/L Potassium 3.7 (3.6-5.1) mmol/L Chloride 105 (96-114) mmol/L Carbon Dioxide 25 (20-32) mmol/L BUN 19 (7-30) mg/dL Creatinine 0.7 (0.5-1.5) mg/dL Estimated Creat Clear 40.81 Estimated GFR 92 ml/min Glucose 90 (60-115) mg/dL Calcium 9.5 (8.4-10.6) mg/dL Troponin I < 0.01 L (0.01-0.04) ng/mL <Tulio Carmen MD - Last Filed: 02/16/22 08:41> Lab Results 02/15/22 02/15/22 Range/Units 20:10 20:10 WBC 5.02 (4.50-11.00) K/uL RBC 5.08 (4.00-5.20) m/uL Hgb 14.7 (12.0-16.0) gm/dL Hct 43.8 (33.0-51.0) % MCV 86 (80-100) fL MCH 29 (26-34) pg MCHC 34 (32-36) gm/dL RDW Coeff of Jaylen 13.3 (11.5-15.5) % Plt Count 223 (140-440) K/uL Neut % (Auto) 52.7 (42.0-72.0) % Lymph % (Auto) 34.5 (20-44) % [place] % (Auto) 9.4 (0.0-11.0) % Eos % (Auto) 2.8 (0.0-7.0) % Baso % (Auto) 0.6 (0.0-3.0) % Neut # (Auto) 2.60 (1.7-7.0) K/uL Lymph # (Auto) 1.70 (0.90-2.90) K/uL [place] # (Auto) 0.50 (0.00-0.90) K/UL Eos # (Auto) 0.10 (0.00-0.50) K/uL Baso # (Auto) 0.00 (0.00-0.30) K/uL Abs Immat Gran (auto) 0.00 (0.00-0.30) K/uL Imm/Tot Granulo (auto) 0.0 % Sodium 139 (135-149) mmol/L Potassium 3.7 (3.6-5.1) mmol/L Chloride 105 (96-114) mmol/L Carbon Dioxide 25 (20-32) mmol/L BUN 19 (7-30) mg/dL Creatinine 0.7 (0.5-1.5) mg/dL Estimated Creat Clear 40.81 Estimated GFR 92 ml/min Glucose 90 (60-115) mg/dL Calcium 9.5 (8.4-10.6) mg/dL Troponin I < 0.01 L (0.01-0.04) ng/mL <Lev Young MD - Last Filed: 02/15/22 21:46> Discharge Plan Discharge Clinical Impression: Palpitations, Anxiety, Hypertension <Tulio Carmen MD - Last Filed: 02/16/22 08:41> Patient Disposition: Home w/ Parent or Adult <Tulio Carmen MD - Last Filed: 02/16/22 08:41> Condition: Improved <Tulio Carmen MD - Last Filed: 02/16/22 08:41> Additional Instructions: Light activity, blood pressure monitoring at home would be optimal, recheck with primary care in the next couple of days for reassessment and follow-up on blood pressure values, as well consideration of additional blood pressure medication trial if able. Return as needed. Would recommend continuing the Valium and Xanax morning and night as she has planned from her primary care doctor <Tulio Carmen MD - Last Filed: 02/16/22 08:41> Activity Level: Light activity <Tulio Carmen MD - Last Filed: 02/16/22 08:41> Light activity <Lev Young MD - Last Filed: 02/15/22 21:46> Discharge Diet: Regular <Tulio Carmen MD - Last Filed: 02/16/22 08:41> Regular <Lev Young MD - Last Filed: 02/15/22 21:46> Prescriptions: No Action aspirin 81 mg capsule 81 mg PO DAILY meclizine 12.5 mg tablet 12.5 mg PO TID PRN Label Comments: Every 8 Hours as needed alprazolam 0.25 mg tablet 0.25 mg PO TID PRN Label Comments: TAKE ONE-HALF TABLET BY MOUTH THREE TIMES DAILY NEEDED nitroglycerin 0.4 mg tablet, sublingual 0.4 mg sublingual Q5M PRN Label Comments: Every 5 Minutes X 3 as needed ondansetron 4 mg tablet,disintegrating 4 mg translingual Q6H PRN Label Comments: Every 6 Hours as needed fluticasone propionate 50 mcg/actuation spray,suspension 1 - 2 spray INTRANASAL BID PRN Label Comments: Twice A Day as needed cholecalciferol (vitamin D3) 50 mcg (2,000 unit) tablet 50 mcg PO DAILY Label Comments: Daily <Tulio Carmen MD - Last Filed: 02/16/22 08:41> Follow Up/Referrals: Kyra Perera PA-C [Primary Care Provider] - <Tulio Carmen MD - Last Filed: 02/16/22 08:41> Stand Alone Forms: MyHealth Info Instructions <Tulio Carmen MD - Last Filed: 02/16/22 08:41>
[2022-02-15] MEDS: 0.9 % SODIUM CHLORIDE 1000 ml 1,000 ML 6000 ML IV (20:15)
[2022-02-15 20:25] LABS: Mean Corpuscular HGB Conc 34 gm/dL (32-36); Mean Corpuscular Hemoglobin 29 pg (26-34); White Blood Count* 5.02 K/uL (4.50-11.00)
[2022-02-15 20:30] VITALS: BP 169/91; PULSE 73; O2SAT 97
[2022-02-15 20:37] LABS: Slide Review Reflex No
[2022-02-15 20:39] LABS: Chloride* 105 mmol/L (96-114); Potassium* 3.7 mmol/L (3.6-5.1); Sodium* 139 mmol/L (135-149)
[2022-02-15 20:42] LABS: Carbon Dioxide* 25 mmol/L (20-32); Creatinine* 0.7 mg/dL (0.5-1.5); Est. Creatinine Clearance* 40.81; Estimated Glomerular Filt Rate 92 ml/min
[2022-02-15 20:43] LABS: Blood Urea Nitrogen* 19 mg/dL (7-30); Calcium* 9.5 mg/dL (8.4-10.6); Glucose* 90 mg/dL (60-115)
[2022-02-15 21:08] LABS: Troponin I* < 0.01 ng/mL (0.01-0.04)
[2022-02-15 22:01] VITALS: BP 190/101; PULSE 70; O2SAT 96
[2022-02-15 22:46] LABS: Basophils Percent Auto 0.6 % (0.0-3.0); Eosinophils Percent Auto 2.8 % (0.0-7.0); Hematocrit 43.8 % (33.0-51.0); Hemoglobin* 14.7 gm/dL (12.0-16.0); Lymphocytes Percent Auto 34.5 % (20-44); Mean Corpuscular Volume 86 fL (80-100); Monocytes Percent Auto 9.4 % (0.0-11.0); Neutrophils Percent Auto 52.7 % (42.0-72.0); Platelet Count* 223 K/uL (140-440); RDW Coefficient of Variation % 13.3 % (11.5-15.5); Red Blood Count 5.08 m/uL (4.00-5.20)
== END 2022-02-15 22:10 | disposition home or self-care (01) ==
PROVIDERS: Emergency Provider Family Medicine; PCP Physician Assistant Medical
DX: R00.2 Palpitations (principal); F41.9 Anxiety disorder, unspecified; I10 Essential (primary) hypertension
CPT/HCPCS: 36415; 80048; 84484; 85025; 93005; 96360; 99284; A9270; J7030

== ENCOUNTER 2022-03-30 14:40 | Emergency (ER) | payer MEDICARE, BC, SELFPAY ==
[2022-03-30 14:47] VITALS: BP 239/94; PULSE 82; RESP 18; TEMP 36.7; O2SAT 98; BMI 25.1
--- NOTE | 2022-03-30 15:03 | CRLHL7_ITS ---
For Patients: As a result of the Century Cures Act, medical imaging exams and procedure reports are released immediately into your electronic medical record. You may view this report before your referring provider. If you have questions, please contact your health care provider. INDICATION: Fall, head trauma TECHNIQUE: CT head without contrast. COMPARISON: Head CT 05/07/2019 FINDINGS: CSF spaces: Within normal limits for age. Brain parenchyma: No intracranial bleed or mass effect. Cheng-white differentiation is distinct moderate low density in the deep white matter. Skull base and calvarium: The visualized paranasal sinuses and mastoid air cells demonstrate no acute or significant findings. The visualized orbits are grossly unremarkable. No skull fractures. Atherosclerosis. Posterior scalp hematoma. IMPRESSION: 1. Posterior scalp hematoma without calvarial fracture or intracranial bleed. 2. 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 This appears mildly progressive compared to the 2019 exam. Please note that all CT scans at this facility use dose modulation, iterative reconstruction, and/or weight-based dosing when appropriate to reduce radiation dose to as low as reasonably achievable. Dictated by Jarad Da Silva MD @ 03/30/2022 4:02:36 PM (Electronically Signed)
--- NOTE | 2022-03-30 15:06 | ED_ITS ---
HPI - Head Injury General Chief complaint: Head Injury/Pain Stated complaint: Post Fall Dizziness Vision Issues Weakness Time Seen by Provider: 03/30/22 14:56 History of Present Illness HPI Narrative: This 71-year-old female comes in for re-evaluation of a head injury that occurred several days ago. She slipped on ice and fell hitting her head about 3 or 4 days ago. She went to [facility] where she had a CT scan that was negative. She is not sure that she had loss of consciousness. She comes in today because she states that her headache is worse. She also feels like her vision has changed a little bit when reading some letters that appeared to be wavy when she was trying to focus on them. She also states that she for got a few things today and she usually does not forget anything. She arrives with headache but does not have any abnormal vital signs or neural exam. She states that she has anxiety and insomnia related to these symptoms. Related Data Home Medications Medication Instructions Recorded Confirmed alprazolam 0.25 mg tablet 0.25 mg PO TID PRN 10/03/21 03/30/22 cholecalciferol (vitamin D3) 50 50 mcg PO DAILY 10/03/21 03/30/22 mcg (2,000 unit) tablet fluticasone propionate 50 1 - 2 spray intranasal BID PRN 10/03/21 03/30/22 mcg/actuation nasal spray,suspension meclizine 12.5 mg tablet 12.5 mg PO TID PRN 10/03/21 03/30/22 nitroglycerin 0.4 mg sublingual 0.4 mg sublingual Q5M PRN 10/03/21 03/30/22 tablet ondansetron 4 mg disintegrating 4 mg translingual Q6H PRN 10/03/21 03/30/22 tablet aspirin 81 mg capsule 81 mg PO DAILY 02/15/22 02/15/22 losartan 25 mg tablet 12.5 mg PO DAILY 03/30/22 03/30/22 Previous Rx's Medication Instructions Recorded ketorolac 10 mg tablet 10 mg PO Q8H 5 days #15 tabs 03/30/22 Allergies Allergy/AdvReac Type Severity Reaction Status Date / Time Penicillins Allergy Severe Throat Verified 02/15/22 19:54 Closing amlodipine Allergy Intermediate Palpitation Verified 02/15/22 19:54 s atorvastatin Allergy Intermediate Myalgia Verified 02/15/22 19:54 chlorthalidone Allergy Intermediate Dyspnea Verified 02/15/22 19:54 clonidine Allergy Intermediate Dyspnea Verified 02/15/22 19:54 diltiazem Allergy Intermediate Anxiety Verified 02/15/22 19:54 doxazosin Allergy Intermediate Bleeding Verified 02/15/22 19:54 hydralazine Allergy Intermediate Tachycardia Verified 02/15/22 19:54 hydrochlorothiazide Allergy Intermediate Dyspnea Verified 02/15/22 19:54 labetalol Allergy Intermediate Dyspnea Verified 02/15/22 19:54 lisinopril Allergy Intermediate Chest Pain Verified 02/15/22 19:54 lorazepam [From Ativan] Allergy Intermediate Depression Verified 02/15/22 19:54 losartan Allergy Intermediate Dyspnea Verified 02/15/22 19:54 methyldopa Allergy Intermediate Rash Verified 02/15/22 19:54 metoprolol Allergy Intermediate Dyspnea Verified 02/15/22 19:54 metronidazole [From Flagyl] Allergy Intermediate Hives Verified 02/15/22 19:54 rosuvastatin Allergy Intermediate Myalgia Verified 02/15/22 19:54 verapamil Allergy Intermediate Dyspnea Verified 02/15/22 19:54 morphine Allergy Mild Hives Verified 02/15/22 19:54 Sulfa (Sulfonamide Allergy Mild Hives Verified 02/15/22 19:54 Antibiotics) hydrocodone AdvReac Intermediate Nausea/Vomi Verified 02/15/22 19:54 ting Review of Systems Status of ROS: Reports: 10 or more systems reviewed and unremarkable except as noted in History and below Narrative: Constitutional: No fevers, no weight gain or loss. Eyes: No discharge. No vision changes. HENT: No congestion, no sore throat, no ear pain. She reports a headache. Cardiovascular: No chest pain, no palpitations. Respiratory: No shortness of breath, no wheezes, no cough. Gastrointestinal: No abdominal pain, no vomiting, no diarrhea. Genitourinary: No dysuria, no hematuria. Musculoskeletal: Normal range of motion. Skin: No rashes, no pruritis. Neurological: No dizziness, weakness, sensory change, speech change. Endo/Heme/Allergies: No bruising or bleeding. No polydipsia. Pysch: no suicidality. She reports anxiety and insomnia symptoms. All other systems reviewed and are negative. PFSH PFSH Social History Smoking Status: Never smoker How often do you have a drink containing alcohol: never AUDIT-C Alcohol total score: 0 Non-prescribed substance use: denies use service: No Exam Narrative: Exam Narrative: Constitutional: Well-developed, well-nourished, no acute distress. HEENT: Occipital hematoma that is resolving. Neck: Normal range of motion. Nontender. Supple. Heart: Regular. No murmurs. Normal rate. Intact distal pulses. Lungs: Clear to auscultation. No chest discomfort. No wheezes, rhonchi, or rales. Abdomen: Normal bowel sounds. Nontender. No rebound tenderness. Genitalia: Deferred. Back: No midline tenderness. Normal range of motion. Extremities: Normal range of motion. No injury. Skin: Intact. No rash. Warm. No erythema or pallor. Neurologic: No altered sensation. No weakness. Alert and oriented. No facial asymmetry. [id number] is normal. No pronator drift. She is able to raise each leg from the floor. Psychiatric: No suicidality. No anxiety or depression. No insomnia. Nursing notes and vitals signs are reviewed. Const: Vital Signs, click to edit/add: Vital Signs - 24 hr 03/30/22 14:47 03/30/22 16:18 Temperature 98.1 F 97.6 F Pulse Rate [Pulse Oximeter] 82 72 Respiratory Rate 18 16 Blood Pressure [Le ft Upper Arm] 239/94 H 177/88 H Pulse Oximetry 98 96 Oxygen Delivery Me thod Room Air Room Air Course Vital Signs Vital signs: Initial Vital Signs Temperature 98.1 F 03/30/22 14:47 Temperature Source Temporal Artery Scan 03/30/22 14:47 Pulse Rate 82 03/30/22 14:47 Respiratory Rate 18 03/30/22 14:47 Blood Pressure 239/94 H 03/30/22 14:47 Blood Pressure Mean 142 03/30/22 14:47 Blood Pressure Position Sitting 03/30/22 14:47 Pulse Oximetry 98 03/30/22 14:47 Oxygen Delivery Method 03/30/22 14:47 Vital Signs Temperature 98.1 F 03/30/22 14:47 Pulse Rate 82 03/30/22 14:47 Respiratory Rate 18 03/30/22 14:47 Blood Pressure 239/94 H 03/30/22 14:47 Pulse Oximetry 98 03/30/22 14:47 Oxygen Delivery Method 03/30/22 14:47 Temperature 97.6 F 03/30/22 16:18 Pulse Rate 72 03/30/22 16:18 Respiratory Rate 16 03/30/22 16:18 Blood Pressure 177/88 H 03/30/22 16:18 Pulse Oximetry 96 03/30/22 16:18 Oxygen Delivery Method 03/30/22 16:18 MDM - Head Injury MDM Narrative Medical decision making narrative: This patient was evaluated for head injury about [address] scan. She continues to have symptoms typical of concussion. She comes in stating that her headache is worse today. She has anxiety related to her symptoms. I did repeated a CT scan of her head today and this returns with no acute findings. This was reassuring to her. She does have small doses of Valium and Xanax that she has been prescribed that can be used for insomnia. She has not been taking these and I stated that it is okay to resume that medicine. She did receive a prescription for Toradol. She has Zofran at home that also can be used as needed and directed. Imaging Data CT scan - head: Radiologist's impression: 1. Posterior scalp hematoma without calvarial fracture or intracranial bleed. 2. 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 This appears mildly progressive compared to the 2020 exam. Discharge Plan Discharge Clinical Impression: Concussion without loss of consciousness Patient Disposition: Home, Self-Care Condition: Stable Additional Instructions: Take medication as needed and directed. Follow up with MD or return if worsening. Prescriptions: New ketorolac 10 mg tablet 10 mg PO Q8H 5 Days Qty: 15 0RF No Action aspirin 81 mg capsule 81 mg PO DAILY meclizine 12.5 mg tablet 12.5 mg PO TID PRN Label Comments: Every 8 Hours as needed alprazolam 0.25 mg tablet 0.25 mg PO TID PRN Label Comments: TAKE ONE-HALF TABLET BY MOUTH THREE TIMES DAILY NEEDED nitroglycerin 0.4 mg tablet, sublingual 0.4 mg sublingual Q5M PRN Label Comments: Every 5 Minutes X 3 as needed ondansetron 4 mg tablet,disintegrating 4 mg translingual Q6H PRN Label Comments: Every 6 Hours as needed fluticasone propionate 50 mcg/actuation spray,suspension 1 - 2 spray INTRANASAL BID PRN Label Comments: Twice A Day as needed cholecalciferol (vitamin D3) 50 mcg (2,000 unit) tablet 50 mcg PO DAILY Label Comments: Daily losartan 25 mg tablet 12.5 mg PO DAILY Label Comments: TAKE ONE-HALF TABLET (12.5 MG) BY MOUTH ONCE DAILY. Follow Up/Referrals: Kyra Perera PA-C [Primary Care Provider] - Stand Alone Forms: [employer] Info Instructions
[2022-03-30 16:18] VITALS: BP 177/88; PULSE 72; RESP 16; TEMP 36.4; O2SAT 96
== END 2022-03-30 17:25 | disposition home or self-care (01) ==
PROVIDERS: Emergency Provider Emergency Medicine Emergency Medical Services; PCP Physician Assistant Medical
DX: S06.0X0A Concussion without loss of consciousness, initial encounter (principal); W00.9XXA Unspecified fall due to ice and snow, initial encounter
CPT/HCPCS: 70450; 99283; 99284; 99285

== ENCOUNTER 2022-04-04 17:47 | Emergency (ER) | payer MEDICARE, BC, SELFPAY ==
[2022-04-04 18:25] VITALS: BP 186/107; PULSE 86; RESP 16; TEMP 36.4; BMI 25.1
--- NOTE | 2022-04-04 19:00 | ED.GENADULT ---
HPI - General Adult General Time Seen by Provider: 19:00 Date Seen: 04/04/22 Chief complaint: Syncope/Fainted Stated complaint: Concussion 1 week ago, Fainted today Time Seen by Provider: 04/04/22 18:50 Source: patient Mode of arrival: ambulatory Limitations: no limitations History of Present Illness HPI narrative: Patient is a 71-year-old female who fell about a week ago, and had a CT scan done at [facility] it was negative, CT scan done here on the that was negative with Dr. Jameel quezada. Patient has had post concussive symptoms of lightheadedness faintness, occasional dizziness. She has been battling elevated blood pressure she has tried multiple medications. She is scheduled to see the tobacco prizer tomorrow. Patient denies chest pain palpitations other than she felt too hard heartbeats after she had near syncopal spell. No loss ofBowel or bladder control. No neurologic complaints. Related Data Home Medications Medication Instructions Recorded Confirmed alprazolam 0.25 mg tablet 0.25 mg PO TID PRN 10/03/21 03/30/22 cholecalciferol (vitamin D3) 50 50 mcg PO DAILY 10/03/21 03/30/22 mcg (2,000 unit) tablet fluticasone propionate 50 1 - 2 spray intranasal BID PRN 10/03/21 03/30/22 mcg/actuation nasal spray,suspension meclizine 12.5 mg tablet 12.5 mg PO TID PRN 10/03/21 03/30/22 nitroglycerin 0.4 mg sublingual 0.4 mg sublingual Q5M PRN 10/03/21 03/30/22 tablet ondansetron 4 mg disintegrating 4 mg translingual Q6H PRN 10/03/21 03/30/22 tablet aspirin 81 mg capsule 81 mg PO DAILY 02/15/22 02/15/22 losartan 25 mg tablet 12.5 mg PO DAILY 03/30/22 03/30/22 Previous Rx's Medication Instructions Recorded ketorolac 10 mg tablet 10 mg PO Q8H 5 days #15 tabs 03/30/22 Allergies Allergy/AdvReac Type Severity Reaction Status Date / Time Penicillins Allergy Severe Throat Verified 02/15/22 19:54 Closing amlodipine Allergy Intermediate Palpitation Verified 02/15/22 19:54 s atorvastatin Allergy Intermediate Myalgia Verified 02/15/22 19:54 chlorthalidone Allergy Intermediate Dyspnea Verified 02/15/22 19:54 clonidine Allergy Intermediate Dyspnea Verified 02/15/22 19:54 diltiazem Allergy Intermediate Anxiety Verified 02/15/22 19:54 doxazosin Allergy Intermediate Bleeding Verified 02/15/22 19:54 hydralazine Allergy Intermediate Tachycardia Verified 02/15/22 19:54 hydrochlorothiazide Allergy Intermediate Dyspnea Verified 02/15/22 19:54 labetalol Allergy Intermediate Dyspnea Verified 02/15/22 19:54 lisinopril Allergy Intermediate Chest Pain Verified 02/15/22 19:54 lorazepam [From Ativan] Allergy Intermediate Depression Verified 02/15/22 19:54 losartan Allergy Intermediate Dyspnea Verified 02/15/22 19:54 methyldopa Allergy Intermediate Rash Verified 02/15/22 19:54 metoprolol Allergy Intermediate Dyspnea Verified 02/15/22 19:54 metronidazole [From Flagyl] Allergy Intermediate Hives Verified 02/15/22 19:54 rosuvastatin Allergy Intermediate Myalgia Verified 02/15/22 19:54 verapamil Allergy Intermediate Dyspnea Verified 02/15/22 19:54 morphine Allergy Mild Hives Verified 02/15/22 19:54 Sulfa (Sulfonamide Allergy Mild Hives Verified 02/15/22 19:54 Antibiotics) hydrocodone AdvReac Intermediate Nausea/Vomi Verified 02/15/22 19:54 ting Review of Systems Status of ROS: Reports: 6 or more systems reviewed and unremarkable except as noted in History and below PFSH PFSH Social History Smoking Status: Never smoker How often do you have a drink containing alcohol: never AUDIT-C Alcohol total score: 0 Non-prescribed substance use: denies use service: No Exam Narrative: Exam Narrative: Objective: Vital signs as above, slightly hypertensive Alert orient x3 No facial asymmetry Neck full range of motion Neurologic is grossly nonfocal Heart rhythm regular without murmur no ectopic beats noted Extremities good perfusion Const: Vital Signs, click to edit/add: Vital Signs - 24 hr 04/04/22 18:25 Temperature 97.6 F Pulse Rate [Right Pulse Oximeter] 86 Respiratory Rate 16 Blood Pressure [Ri ght Upper Arm] 186/107 H Oxygen Delivery Me thod Room Air Course Vital Signs Vital signs: Initial Vital Signs Temperature 97.6 F 04/04/22 18:25 Temperature Source Temporal Artery Scan 04/04/22 18:25 Pulse Rate 86 04/04/22 18:25 Pulse Rhythm 04/04/22 18:25 Respiratory Rate 16 04/04/22 18:25 Blood Pressure 186/107 H 04/04/22 18:25 Blood Pressure Mean 133 04/04/22 18:25 Blood Pressure Position Sitting 04/04/22 18:25 Oxygen Delivery Method 04/04/22 18:25 Vital Signs Temperature 97.6 F 04/04/22 18:25 Pulse Rate 86 04/04/22 18:25 Respiratory Rate 16 04/04/22 18:25 Blood Pressure 186/107 H 04/04/22 18:25 Oxygen Delivery Method 04/04/22 18:25 Temperature 97.6 F 04/04/22 18:25 Pulse Rate 86 04/04/22 18:25 Respiratory Rate 16 04/04/22 18:25 Blood Pressure 186/107 H 04/04/22 18:25 Oxygen Delivery Method 04/04/22 18:25 Medical Decision Making MDM Narrative Medical decision making narrative: Patient gives excellent symptoms for a post concussive syndrome. She has had 2- CT scans of the head since her fall. She has had some lightheadedness and dizziness and I suspect this is related her postconcussive syndrome. I am not excited to order another CT scan or imaging of her head. She has no chest pain, breathing difficulty, recent illness. She is scheduled to see Cardiology tomorrow. I think tonight be reasonable to get an EKG put on a cardiac specialist, check some labs, and if these are reassuring I think she can go home rest light activity fluids and visit with Cardiology tomorrow. Addendum: The patient's EKG shows normal sinus rhythm questionable mild LVH that would be reasonable given her level of difficulty controlling her blood pressure. She sees Cardiology tomorrow. Her troponin point of care is negative. Her CBC and Chem profile are completely unremarkable. I think some of her lightheadedness dizziness is due to her head injury and postconcussive syndrome. Meet with Cardiology tomorrow light activity in the interim. Lab Data Labs: Lab Results 04/04/22 04/04/22 04/04/22 Range/Units 19:12 19:12 19:15 WBC 4.76 (4.50-11.00) K/uL RBC 5.27 H (4.00-5.20) m/uL Hgb 15.4 (12.0-16.0) gm/dL Hct 45.6 (33.0-51.0) % MCV 87 (80-100) fL MCH 29 (26-34) pg MCHC 34 (32-36) gm/dL RDW Coeff of Jaylen 13.2 (11.5-15.5) % Plt Count 234 (140-440) K/uL Neut % (Auto) 56.7 (42.0-72.0) % Lymph % (Auto) 33.0 (20-44) % Payne % (Auto) 8.2 (0.0-11.0) % Eos % (Auto) 1.5 (0.0-7.0) % Baso % (Auto) 0.4 (0.0-3.0) % Neut # (Auto) 2.70 (1.7-7.0) K/uL Lymph # (Auto) 1.57 (0.90-2.90) K/uL Payne # (Auto) 0.40 (0.00-0.90) K/UL Eos # (Auto) 0.07 (0.00-0.50) K/uL Baso # (Auto) 0.02 (0.00-0.30) K/uL Sodium 139 (135-149) mmol/L Potassium 4.2 (3.6-5.1) mmol/L Chloride 107 (96-114) mmol/L Carbon Dioxide 26 (20-32) mmol/L BUN 19 (7-30) mg/dL Creatinine 0.6 (0.5-1.5) mg/dL Estimated Creat Clear 40.81 Estimated GFR 96 ml/min Glucose 105 (60-115) mg/dL Calcium 9.4 (8.4-10.6) mg/dL POC Troponin I 0.01 (0.01-0.04) ng/ml Discharge Plan Discharge Clinical Impression: Near syncope, Post concussion syndrome Patient Disposition: Home w/ Parent or Adult Condition: Stable Additional Instructions: Light activity, fluids, cardiology visit tomorrow as planned. Return sooner problems or concerns. Activity Level: Light activity Discharge Diet: Regular Prescriptions: No Action aspirin 81 mg capsule 81 mg PO DAILY [facility] mg tablet 12.5 mg PO TID PRN Label Comments: Every 8 Hours as needed alprazolam 0.25 mg tablet 0.25 mg PO TID PRN Label Comments: TAKE ONE-HALF TABLET BY MOUTH THREE TIMES DAILY NEEDED nitroglycerin 0.4 mg tablet, sublingual 0.4 mg sublingual Q5M PRN Label Comments: Every 5 Minutes X 3 as needed ondansetron 4 mg tablet,disintegrating 4 mg translingual Q6H PRN Label Comments: Every 6 Hours as needed fluticasone propionate 50 mcg/actuation spray,suspension 1 - 2 spray INTRANASAL BID PRN Label Comments: Twice A Day as needed cholecalciferol (vitamin D3) 50 mcg (2,000 unit) tablet 50 mcg PO DAILY Label Comments: Daily losartan 25 mg tablet 12.5 mg PO DAILY Label Comments: TAKE ONE-HALF TABLET (12.5 MG) BY MOUTH ONCE DAILY. ketorolac 10 mg tablet 10 mg PO Q8H 5 Days Qty: 15 0RF Follow Up/Referrals: Kyra Perera PA-C [Primary Care Provider] - Stand Alone Forms: [facility] Info Instructions
[2022-04-04 19:21] LABS: Basophils Absolute Auto 0.02 K/uL (0.00-0.30); Basophils Percent Auto 0.4 % (0.0-3.0); Eosinophils Absolute Auto 0.07 K/uL (0.00-0.50); Eosinophils Percent Auto 1.5 % (0.0-7.0); Hematocrit 45.6 % (33.0-51.0); Hemoglobin* 15.4 gm/dL (12.0-16.0); Immature Granulocytes Abs Auto 0.01 K/uL (0.00-0.30); Immature Granulocytes Pct Auto 0.2 %; Lymphocytes Absolute Auto 1.57 K/uL (0.90-2.90); Mean Corpuscular HGB Conc 34 gm/dL (32-36); Mean Corpuscular Hemoglobin 29 pg (26-34); Mean Corpuscular Volume 87 fL (80-100); Monocytes Percent Auto 8.2 % (0.0-11.0); Neutrophils Percent Auto 56.7 % (42.0-72.0); Platelet Count* 234 K/uL (140-440); RDW Coefficient of Variation % 13.2 % (11.5-15.5); Red Blood Count 5.27 m/uL (4.00-5.20); White Blood Count* 4.76 K/uL (4.50-11.00)
[2022-04-04 19:22] LABS: Slide Review Reflex No
[2022-04-04 19:37] LABS: Chloride* 107 mmol/L (96-114); Sodium* 139 mmol/L (135-149)
[2022-04-04 19:38] LABS: Potassium* 4.2 mmol/L (3.6-5.1)
[2022-04-04 19:40] LABS: Carbon Dioxide* 26 mmol/L (20-32); Creatinine* 0.6 mg/dL (0.5-1.5); Est. Creatinine Clearance* 40.81; Estimated Glomerular Filt Rate 96 ml/min
[2022-04-04 19:41] LABS: Blood Urea Nitrogen* 19 mg/dL (7-30); Calcium* 9.4 mg/dL (8.4-10.6); Glucose* 105 mg/dL (60-115)
[2022-04-04 19:46] LABS: Troponin, Point-of-Care* 0.01 ng/ml (0.01-0.04)
== END 2022-04-04 20:11 | disposition home or self-care (01) ==
LOC: ED 19:46
PROVIDERS: Emergency Provider Family Medicine; PCP Physician Assistant Medical
DX: R55 Syncope and collapse (principal); F07.81 Postconcussional syndrome
CPT/HCPCS: 36415; 80048; 84484; 85025; 93005; 99284

== ENCOUNTER 2022-05-11 13:48 | Outpatient (CLI) | payer MEDICARE, BC, SELFPAY | END 2022-05-11 13:49 | disposition home or self-care (01) | LOC: RAD 13:48 | PROVIDERS: PCP Physician Assistant Medical; Visit Provider Physician Assistant | DX: I47.1 Supraventricular tachycardia (principal); I35.1 Nonrheumatic aortic (valve) insufficiency; I34.0 Nonrheumatic mitral (valve) insufficiency; I49.3 Ventricular premature depolarization | CPT/HCPCS: 93306 ==

== ENCOUNTER 2022-10-10 09:36 | Outpatient (CLI) | payer MEDICARE, BC, SELFPAY ==
--- NOTE | 2022-10-10 08:33 | W.ANESCHARGE ---
Anesthesia Charges Start Date/Time Anesthesia Start Date: 10/10/22 Anesthesia Start Time: 10:54 Stop Date/Time Anesthesia Stop Date: 10/10/22 Anesthesia Stop Time: 11:20 Summary Extremes of Age - Over 70 or under 1: MDA
--- OUTSIDE RECORDS SUMMARY | 2022-10-10 09:38 | XMS_ITS | Continuity of Care Document ---
Author Name Unknown Organization [facility] [place] Address [address] [place] [address] Phone Care Team Providers Care Internal Medicine Physician Assistant Name Role Phone Bernabe MAURICE, Clayton Unavailable Unavailable Advance Directives Directive Yes / No Effective Date File Name No Information Encounters Encounter Description Practice Location Reason(s) For Visit Diagnoses Date Provider Providers Copied on Encounter Z [facility], [address] [place] [address], [place], [address], [place] tel:[phone] [facility] No Information Bernabe Arnold. [facility], [address], [place], [place], [id number] , [place]. tel:[phone] Family History Family Member Type Diagnosis Age At Onset No Information Payers Payer name Insurance type Covered green party ID Authoriza tion(s) No Information Social History Type Description Quantity Date Captured Comments Sex Female Smoking Status No Information Chief Complaint And Reason For Visit No Information Reason For Referral Reason For Referral No Information History Of Present Illness Encounter Date Complaint History Of Prese nt Illness No Information Functional Status Date Functional Assessmen t No Information Instructions Date Instruction Additional Infor mation No Information Assessments Type Assessment Date No Information Patient Care Teams Name Effective Dates (start - stop) Status Members No Information
--- NOTE | 2022-10-10 11:21 | P.ANES_ITS ---
Anesthesia Charges Start Date/Time Anesthesia Start Date: 10/10/22 Anesthesia Start Time: 10:54 Stop Date/Time Anesthesia Stop Date: 10/10/22 Anesthesia Stop Time: 11:20 Summary Extremes of Age - Over 70 or under 1: [employer]
== END 2022-10-10 09:37 | disposition home or self-care (01) ==
LOC: OP CLINIC 09:36
PROVIDERS: PCP Physician Assistant Medical; Visit Provider Internal Medicine Gastroenterology
DX: Z12.11 Encounter for screening for malignant neoplasm of colon (principal); K64.8 Other hemorrhoids
CPT/HCPCS: 45378; 811; 812; 99100; J2704

== ENCOUNTER 2022-12-08 10:55 | Emergency (ER) | payer MEDICARE, BC, SELFPAY ==
[2022-12-08] VITALS (19 sets, daily range): BP systolic 168–196; BP diastolic 85–107; PULSE 82–102; RESP 16–20; TEMP 36.2; O2SAT 91–97; BMI 24.0
--- NOTE | 2022-12-08 12:03 | ED_ITS ---
HPI - Chest Pain General Chief Complaint: Chest Pain Stated Complaint: Arrythmia and chest pain Time Seen by Provider: 12/08/22 11:21 History of Present Illness HPI narrative: This 72-year-old female reports some brief episodes of chest discomfort and episodes of getting lightheaded. She has been to a dolly operator and has worn a heart monitor. She did state that the backup administrator said there was nothing more that could be done. On the heart monitor at the time of my visit she is having occasional premature atrial contractions. She reports a large list of allergies which are really more adverse effects to many medications. She does have an appointment with her dolly operator but this is in the middle of next month. She states that she is afraid to drive because of feeling lightheaded. She does not currently feel lightheaded and has elevated blood pressure. She does report a brief loss of consciousness that occurred yesterday Related Data Home Medications Medication Instructions Recorded Confirmed alprazolam 0.25 mg tablet 0.25 mg PO TID PRN 10/03/21 12/08/22 cholecalciferol (vitamin D3) 50 50 mcg PO DAILY 10/03/21 12/08/22 mcg (2,000 unit) tablet fluticasone propionate 50 1 - 2 spray intranasal BID PRN 10/03/21 12/08/22 mcg/actuation nasal spray,suspension meclizine 12.5 mg tablet 12.5 mg PO TID PRN 10/03/21 12/08/22 nitroglycerin 0.4 mg sublingual 0.4 mg sublingual Q5M PRN 10/03/21 12/08/22 tablet ondansetron 4 mg disintegrating 4 mg translingual Q6H PRN 10/03/21 12/08/22 tablet aspirin 81 mg capsule 81 mg PO DAILY 02/15/22 12/08/22 Previous Rx's Medication Instructions Recorded propranolol 10 mg tablet 10 mg PO BID #30 tabs 12/08/22 Allergies Allergy/AdvReac Type Severity Reaction Status Date / Time Penicillins Allergy Severe Throat Verified 12/08/22 11:04 Closing amlodipine Allergy Intermediate Palpitation Verified 12/08/22 11:04 s atorvastatin Allergy Intermediate Myalgia Verified 12/08/22 11:04 chlorthalidone Allergy Intermediate Dyspnea Verified 12/08/22 11:04 clonidine Allergy Intermediate Dyspnea Verified 12/08/22 11:04 diltiazem Allergy Intermediate Anxiety Verified 12/08/22 11:04 doxazosin Allergy Intermediate Bleeding Verified 12/08/22 11:04 hydralazine Allergy Intermediate Tachycardia Verified 12/08/22 11:04 hydrochlorothiazide Allergy Intermediate Dyspnea Verified 12/08/22 11:04 labetalol Allergy Intermediate Dyspnea Verified 12/08/22 11:04 lisinopril Allergy Intermediate Chest Pain Verified 12/08/22 11:04 lorazepam [From Ativan] Allergy Intermediate Depression Verified 12/08/22 11:04 losartan Allergy Intermediate Dyspnea Verified 12/08/22 11:04 methyldopa Allergy Intermediate Rash Verified 12/08/22 11:04 metoprolol Allergy Intermediate Dyspnea Verified 12/08/22 11:04 metronidazole [From Flagyl] Allergy Intermediate Hives Verified 12/08/22 11:04 rosuvastatin Allergy Intermediate Myalgia Verified 12/08/22 11:04 verapamil Allergy Intermediate Dyspnea Verified 12/08/22 11:04 morphine Allergy Mild Hives Verified 12/08/22 11:04 Sulfa (Sulfonamide Allergy Mild Hives Verified 12/08/22 11:04 Antibiotics) hydrocodone AdvReac Intermediate Nausea/Vomi Verified 12/08/22 11:04 ting Review of Systems Status of ROS Reports: 10 or more systems reviewed and unremarkable except as noted in History and below Narrative Constitutional: No fevers, no weight gain or loss. Eyes: No discharge. No vision changes. HENT: No congestion, no sore throat, no ear pain. Cardiovascular: Palpitations and brief occasions of chest pain lasting less than a minute. No exertional symptoms. Respiratory: No shortness of breath, no wheezes, no cough. Gastrointestinal: No abdominal pain, no vomiting, no diarrhea. Genitourinary: No dysuria, no hematuria. Musculoskeletal: Normal range of motion. Skin: No rashes, no pruritis. Neurological: No dizziness, weakness, sensory change, speech change. Endo/Heme/Allergies: No bruising or bleeding. No polydipsia. Pysch: no suicidality, no anxiety, no insomnia. All other systems reviewed and are negative. [facility] Social History Smoking Status: Never smoker Do you use any of these nicotine containing products: None Second hand tobacco smoke exposure: No How often do you have a drink containing alcohol: never AUDIT-C Alcohol total score: 0 Non-prescribed substance use: denies use service: No Exam Narrative Exam Narrative: Constitutional: Well-developed, well-nourished, no acute distress. HEENT: Normocephalic, atraumatic. Neck: Normal range of motion. Nontender. Supple. Heart: Regular. No murmurs. Normal rate. Intact distal pulses. Lungs: Clear to auscultation. No chest discomfort. No wheezes, rhonchi, or rales. Abdomen: Normal bowel sounds. Nontender. No rebound tenderness. Genitalia: Deferred. Back: No midline tenderness. Normal range of motion. Extremities: Normal range of motion. No injury. Skin: Intact. No rash. Warm. No erythema or pallor. Neurologic: No altered sensation. No weakness. Alert and oriented. Psychiatric: No suicidality. She is anxious about her health. Nursing notes and vitals signs are reviewed. Const Vital Signs, click to edit/add: Vital Signs - 24 hr 12/08/22 11:03 12/08/22 11:04 12/08/22 11:05 Temperature 97.2 F L Pulse Rate 98 102 H Pulse Rate [Pulse Oximeter] 100 Respiratory Rate 20 Blood Pressure 168/105 H Blood Pressure [Right Upper Arm] 168/105 H Pulse Oximetry 96 97 95 Oxygen Delivery Method Room Air 12/08/22 11:15 12/08/22 11:16 12/08/22 11:30 Temperature Pulse Rate 93 93 87 Pulse Rate [Pulse Oximeter] Respiratory Rate Blood Pressure 182/100 H Blood Pressure [Right Upper Arm] Pulse Oximetry 92 91 93 Oxygen Delivery Method 12/08/22 11:32 12/08/22 11:45 12/08/22 11:47 Temperature Pulse Rate 90 93 93 Pulse Rate [Pulse Oximeter] Respiratory Rate Blood Pressure 181/93 H 196/107 H Blood Pressure [Right Upper Arm] Pulse Oximetry 92 95 94 Oxygen Delivery Method 12/08/22 12:00 12/08/22 12:02 12/08/22 12:15 Temperature Pulse Rate 88 89 89 Pulse Rate [Pulse Oximeter] Respiratory Rate Blood Pressure 188/85 H Blood Pressure [Right Upper Arm] Pulse Oximetry 93 91 91 Oxygen Delivery Method 12/08/22 12:16 12/08/22 12:17 12/08/22 12:30 Temperature Pulse Rate 88 82 85 Pulse Rate [Pulse Oximeter] Respiratory Rate Blood Pressure 184/107 H Blood Pressure [Right Upper Arm] Pulse Oximetry 92 94 91 Oxygen Delivery Method 12/08/22 12:32 12/08/22 12:45 12/08/22 12:47 Temperature Pulse Rate 83 83 86 Pulse Rate [Pulse Oximeter] Respiratory Rate 16 Blood Pressure 181/99 H 175/101 H Blood Pressure [Right Upper Arm] Pulse Oximetry 93 95 94 Oxygen Delivery Method Course Vital Signs Vital signs: Initial Vital Signs Pulse Rate 98 12/08/22 11:03 Pulse Oximetry 96 12/08/22 11:03 Vital Signs Pulse Rate 98 12/08/22 11:03 Pulse Oximetry 96 12/08/22 11:03 Temperature 97.2 F L 12/08/22 11:05 Pulse Rate 86 12/08/22 12:47 Respiratory Rate 16 12/08/22 12:47 Blood Pressure 175/101 H 12/08/22 12:47 Pulse Oximetry 94 12/08/22 12:47 Oxygen Delivery Method Room Air 12/08/22 11:05 MDM - Chest Pain MDM Narrative Medical decision making narrative: This patient comes in reporting palpitations and episodes of lightheadedness and brief chest discomfort. Her EKG shows normal sinus rhythm here. Her heart monitor does show occasional premature atrial contractions. Labs are acquired and her troponin returns at 0. Other labs also are all reassuring. I had discussion with the patient regarding various circumstances that can cause lightheadedness or loss of consciousness. She has worn a heart monitor in the past there has been some evidence of premature beats and brief SVT. I did also discuss possibility of cardiac pauses as the patient does describe symptoms that could be attributed to that also as a explanation. This patient does have elevated blood pressure and reports adverse effects to all kinds of medications. I did suggest trying propranolol in the low dose as it has a alpha and beta blockade component that may help her some with anxiety, blood pressure, and palpitations. She does have a follow-up appointment with her dolly operator in a few weeks. Lab Data Labs: Lab Results 12/08/22 12/08/22 Range/Units 12:00 12:13 WBC 4.60 (4.50-11.00) K/uL RBC 5.35 H (4.00-5.20) m/uL Hgb 15.4 (12.0-16.0) gm/dL Hct 46.1 (33.0-51.0) % MCV 86 (80-100) fL MCH 29 (26-34) pg MCHC 33 (32-36) gm/dL RDW Coeff of Jaylen 12.7 (11.5-15.5) % Plt Count 232 (140-440) K/uL Neut % (Auto) 54.9 (42.0-72.0) % Lymph % (Auto) 30.4 (20-44) % [place] % (Auto) 11.5 H (0.0-11.0) % Eos % (Auto) 2.6 (0.0-7.0) % Baso % (Auto) 0.4 (0.0-3.0) % Neut # (Auto) 2.52 (1.7-7.0) K/uL Lymph # (Auto) 1.40 (0.90-2.90) K/uL [place] # (Auto) 0.50 (0.00-0.90) K/UL Eos # (Auto) 0.12 (0.00-0.50) K/uL Baso # (Auto) 0.02 (0.00-0.30) K/uL Abs Immat Gran (auto) 0.01 (0.00-0.30) K/uL Imm/Tot Granulo (auto) 0.2 % Sodium 140 (135-149) mmol/L Potassium 4.5 (3.6-5.1) mmol/L Chloride 104 (96-114) mmol/L Carbon Dioxide 26 (20-32) mmol/L Anion Gap 10 (7-15) mEq/L BUN 18 (7-30) mg/dL Creatinine 0.6 (0.5-1.5) mg/dL Estimated Creat Clear 40.22 Estimated GFR 95 ml/min Glucose 114 (60-115) mg/dL Calcium 9.6 (8.4-10.6) mg/dL Magnesium 2.0 (1.5-2.6) mg/dL POC Troponin I 0.00 L (0.01-0.04) ng/ml ECG Data Attestation: I personally reviewed and interpreted this ECG as follows: Interpretation: Normal sinus rhythm. Rate is 92 beats per minute. There are no ST or T-wave abnormalities. Discharge Plan Discharge Clinical Impression: Heart palpitations, Syncope Patient Disposition: Home, Self-Care Condition: Stable Additional Instructions: Continue current medications. Use propranolol as needed and directed. Follow up with dolly operator as scheduled or return if symptoms are recurrent or worsening. Prescriptions: New propranolol 10 mg tablet 10 mg PO BID Qty: 30 2RF No Action aspirin 81 mg capsule 81 mg PO DAILY meclizine 12.5 mg tablet 12.5 mg PO TID PRN Patient Comments: Every 8 Hours as needed alprazolam 0.25 mg tablet 0.25 mg PO TID PRN Patient Comments: TAKE ONE-HALF TABLET BY MOUTH THREE TIMES DAILY NEEDED nitroglycerin 0.4 mg tablet, sublingual 0.4 mg sublingual Q5M PRN Patient Comments: Every 5 Minutes X 3 as needed ondansetron 4 mg tablet,disintegrating 4 mg translingual Q6H PRN Patient Comments: Every 6 Hours as needed fluticasone propionate 50 mcg/actuation spray,suspension 1 - 2 spray INTRANASAL BID PRN Patient Comments: Twice A Day as needed cholecalciferol (vitamin D3) 50 mcg (2,000 unit) tablet 50 mcg PO DAILY Patient Comments: Daily Follow Up/Referrals: Kyra Perera PA-C [Primary Care Provider] - Stand Alone Forms: [facility] [facility] [employer] Info Instructions
[2022-12-08 12:31] LABS: Basophils Absolute Auto 0.02 K/uL (0.00-0.30); Basophils Percent Auto 0.4 % (0.0-3.0); Eosinophils Absolute Auto 0.12 K/uL (0.00-0.50); Eosinophils Percent Auto 2.6 % (0.0-7.0); Hematocrit 46.1 % (33.0-51.0); Hemoglobin* 15.4 gm/dL (12.0-16.0); Immature Granulocytes Abs Auto 0.01 K/uL (0.00-0.30); Immature Granulocytes Pct Auto 0.2 %; Lymphocytes Percent Auto 30.4 % (20-44); Mean Corpuscular HGB Conc 33 gm/dL (32-36); Mean Corpuscular Hemoglobin 29 pg (26-34); Mean Corpuscular Volume 86 fL (80-100); Monocytes Percent Auto 11.5 % (0.0-11.0); Neutrophils Absolute Auto 2.52 K/uL (1.7-7.0); Neutrophils Percent Auto 54.9 % (42.0-72.0); Platelet Count* 232 K/uL (140-440); RDW Coefficient of Variation % 12.7 % (11.5-15.5); Red Blood Count 5.35 m/uL (4.00-5.20)
[2022-12-08 12:34] LABS: Slide Review Reflex No
[2022-12-08 12:36] LABS: Chloride* 104 mmol/L (96-114); Potassium* 4.5 mmol/L (3.6-5.1); Sodium* 140 mmol/L (135-149)
--- NOTE | 2022-12-08 12:38 | ED.NURSE ---
Notified Dr. Wiseman that BP continues to be elevated. He is aware.
[2022-12-08 12:39] LABS: Anion Gap 10 mEq/L (7-15); Carbon Dioxide* 26 mmol/L (20-32); Creatinine* 0.6 mg/dL (0.5-1.5); Est. Creatinine Clearance* 40.22; Estimated Glomerular Filt Rate 95 ml/min
[2022-12-08 12:40] LABS: Blood Urea Nitrogen* 18 mg/dL (7-30); Calcium* 9.6 mg/dL (8.4-10.6); Glucose* 114 mg/dL (60-115)
== END 2022-12-08 13:27 | disposition home or self-care (01) ==
PROVIDERS: Emergency Provider Emergency Medicine Emergency Medical Services; PCP Physician Assistant Medical
DX: R00.2 Palpitations (principal); R55 Syncope and collapse
CPT/HCPCS: 36415; 80048; 83735; 84484; 85025; 93005; 99284

== ENCOUNTER 2023-05-16 11:58 | Emergency (ER) | payer MEDICARE, BC, SELFPAY ==
[2023-05-16 12:09] VITALS: BP 214/108; PULSE 90; RESP 20; TEMP 36.8; O2SAT 95; BMI 26.5
--- NOTE | 2023-05-16 12:16 | ED.GENADULT ---
HPI - General Adult General Chief complaint: Arrhythmia/Palpitations Stated complaint: Feeling faint Time Seen by Provider: 05/16/23 12:02 History of Present Illness HPI narrative: Patient reports frequent PVC' s going on for 4 days. She feels so faint from this that she reports not leaving her bed. Today and yesterday she also notes pressure/pain from the PVC's. She has been seen for similar episodes in the past. Patient reports allergy to all BP medications. Did attempt to take one SL nitro and 0.5 tab of Valium for her symptoms 4 hours ago with no improvement. 72-year-old woman presenting to the emergency department with concern of persistent PVCs. Was at the grocery store today and started to feel lightheaded about to pass out someone assisted her to a chair. She is nervous to drive grandchildren around she does not know when this might happen again. 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 Symptomatic feeling a thump in her chest. She has had numerous rounds of his out patch. Recently evaluated also with a PET scan in place of a vascular accessed EP study. She does frequently check her blood pressure and notes that they have been quite high over 200 over even as high as 140. Couple days ago she was alarmed by pressure though dropping down to 101 systolic. Also reports that her oxygen saturations were 90%. Has extensive allergies/intolerance is to antihypertensives of numerous classes. Most recently a believe that was in fall of last year, was tried on propranolol out of this emergency department. She says she ?felt like a kid? for 1 day and then the next day just felt terrible. There is some question of mast cell to stable is a andrews with a daughter with similar bad reactions and that perhaps that is contributing to her medication allergies. She is is wondering whether not I know of anything that might help her control her blood pressure. She did take 1 nitro and of Valium last dosed about 3 hours ago. No improvement in her symptoms. History of a fall over a year ago with closed head injury, secondary dizziness/post concussive syndrome. Is now being seen at [facility]. Recent episode of dizziness brought on by manipulation during session. Related Data Home Medications Medication Instructions Recorded Confirmed alprazolam 0.25 mg tablet 0.25 mg PO TID PRN 10/03/21 04/28/23 cholecalciferol (vitamin D3) 50 50 mcg PO DAILY 10/03/21 04/28/23 mcg (2,000 unit) tablet fluticasone propionate 50 1 - 2 spray intranasal BID PRN 10/03/21 04/28/23 mcg/actuation nasal spray,suspension meclizine 12.5 mg tablet 12.5 mg PO TID PRN 10/03/21 04/28/23 nitroglycerin 0.4 mg sublingual 0.4 mg sublingual Q5M PRN 10/03/21 04/28/23 tablet ondansetron 4 mg disintegrating 4 mg translingual Q6H PRN 10/03/21 04/28/23 tablet aspirin 81 mg capsule 81 mg PO DAILY 02/15/22 04/28/23 Previous Rx's Medication Instructions Recorded carvedilol 6.25 mg tablet 6.25 mg PO BID #60 tabs 05/16/23 Allergies Allergy/AdvReac Type Severity Reaction Status Date / Time Penicillins Allergy Severe Throat Verified 04/28/23 09:50 Closing amlodipine Allergy Intermediate Palpitation Verified 04/28/23 09:50 s atorvastatin Allergy Intermediate Myalgia Verified 04/28/23 09:50 chlorthalidone Allergy Intermediate Dyspnea Verified 04/28/23 09:50 clonidine Allergy Intermediate Dyspnea Verified 04/28/23 09:50 diltiazem Allergy Intermediate Anxiety Verified 04/28/23 09:50 doxazosin Allergy Intermediate Bleeding Verified 04/28/23 09:50 hydralazine Allergy Intermediate Tachycardia Verified 04/28/23 09:50 hydrochlorothiazide Allergy Intermediate Dyspnea Verified 04/28/23 09:50 labetalol Allergy Intermediate Dyspnea Verified 04/28/23 09:50 lisinopril Allergy Intermediate Chest Pain Verified 04/28/23 09:50 lobster Allergy Intermediate Verified 04/28/23 13:37 lorazepam [From Ativan] Allergy Intermediate Depression Verified 04/28/23 09:50 losartan Allergy Intermediate Dyspnea Verified 04/28/23 09:50 methyldopa Allergy Intermediate Rash Verified 04/28/23 09:50 metoprolol Allergy Intermediate Dyspnea Verified 04/28/23 09:50 metronidazole [From Flagyl] Allergy Intermediate Hives Verified 04/28/23 09:50 milk Allergy Intermediate Verified 04/28/23 13:37 rosuvastatin Allergy Intermediate Myalgia Verified 04/28/23 09:50 verapamil Allergy Intermediate Dyspnea Verified 04/28/23 09:50 morphine Allergy Mild Hives Verified 04/28/23 09:50 Sulfa (Sulfonamide Allergy Mild Hives Verified 04/28/23 09:50 Antibiotics) acetaminophen Allergy Unknown Verified 04/28/23 13:37 lactose Allergy Unknown Verified 04/28/23 13:37 latex Allergy Unknown Verified 04/28/23 13:37 hydrocodone AdvReac Intermediate Nausea/Vomi Verified 04/28/23 09:50 ting Review of Systems Status of ROS: Reports: 6 or more systems reviewed and unremarkable except as noted in History and below PFSH [facility] Medical History Viral infection ?B34.9 - Viral infection, unspecified (ICD-10) Upper back pain ?M54.9 - Dorsalgia, unspecified (ICD-10) Tinnitus ?H93.19 - Tinnitus, unspecified ear (ICD-10) Obstructive sleep apnea treated with continuous positive airway pressure (CPAP) ?G47.33 - Obstructive sleep apnea (adult) (pediatric) (ICD-10) Headache ?R51.9 - Headache, unspecified (ICD-10) Excessive daytime sleepiness ?G47.19 - Other hypersomnia (ICD-10) Encounter for follow-up ?Z09 - Encounter for follow-up examination after completed treatment for conditions other than malignant neoplasm (ICD-10) Disorder of paranasal sinus ?J34.9 - Unspecified disorder of nose and nasal sinuses (ICD-10) Difficulty sleeping ?G47.9 - Sleep disorder, unspecified (ICD-10) Chest pain ?R07.9 - Chest pain, unspecified (ICD-10) Abdominal pain ?R10.9 - Unspecified abdominal pain (ICD-10) Surgical History Hx of removal of ovary H/O section ?Z98.891 - History of uterine scar from previous surgery (ICD-10) H/O resection of rib ?Z98.890 - Other specified postprocedural states (ICD-10) History of tonsillectomy ?Z90.89 - Acquired absence of other organs (ICD-10) Hx of cholecystectomy ?Z90.49 - Acquired absence of other specified parts of digestive tract (ICD-10) History of appendectomy ?Z90.49 - Acquired absence of other specified parts of digestive tract (ICD-10) Social History Smoking Status: Never smoker Do you use any of these nicotine containing products: None Second hand tobacco smoke exposure: No How often do you have a drink containing alcohol: never AUDIT-C Alcohol total score: 0 Non-prescribed substance use: denies use service: No Exam Narrative: Exam Narrative: Pleasant. Mildly distressed mildly anxious. Breathing easily. Lungs appear to be clear. No JVD. Heart in a regular rhythm though with some ectopic beats coinciding with her symptoms and when I observed to be isolated but frequent PVCs on monitor. Cranial nerves 2-12 intact. Abdomen is soft and nontender throughout the upper abdomen. Extremities are well perfused. She is without lower extremity edema. Const: Vital Signs, click to edit/add: Vital Signs - 24 hr 05/16/23 12:09 05/16/23 12:38 05/16/23 12:42 Temperature 98.3 F Pulse Rate [Pulse Oximeter] 90 Pulse Rate [Right Pulse Oximeter] 75 Pulse Rate [orthos tatic sitting Righ t] 74 Pulse Rate [orthos tatic standing Rig ht] 84 Respiratory Rate 20 Blood Pressure [Ri ght Upper Arm] 214/108 H Blood Pressure [or thostatic lying Le ft Arm] 215/109 H Blood Pressure [or thostatic sitting Left Arm] 202/124 H Blood Pressure [or thostatic standing Left Arm] 207/120 H Pulse Oximetry 95 94 Oxygen Delivery Me thod Room Air Documenting provider has reviewed patient's vital signs: yes Course Vital Signs Vital signs: Initial Vital Signs Temperature 98.3 F 05/16/23 12:09 Temperature Source Temporal Artery Scan 05/16/23 12:09 Pulse Rate 90 05/16/23 12:09 Respiratory Rate 20 05/16/23 12:09 Blood Pressure 214/108 H 05/16/23 12:09 Blood Pressure Mean 143 H 05/16/23 12:09 Pulse Oximetry 95 05/16/23 12:09 Oxygen Delivery Method Room Air 05/16/23 12:09 Vital Signs Temperature 98.3 F 05/16/23 12:09 Pulse Rate 90 05/16/23 12:09 Respiratory Rate 20 05/16/23 12:09 Blood Pressure 214/108 H 05/16/23 12:09 Pulse Oximetry 95 05/16/23 12:09 Oxygen Delivery Method Room Air 05/16/23 12:09 Temperature 98.3 F 05/16/23 12:09 Pulse Rate 75 05/16/23 12:42 Respiratory Rate 20 05/16/23 12:09 Blood Pressure 215/109 H 05/16/23 12:42 Pulse Oximetry 94 05/16/23 12:38 Oxygen Delivery Method Room Air 05/16/23 12:09 Medications Administered Medications: Discontinued Medications Generic Name Dose Route Start Last Admin Trade Name Abdirahman PRN Reason Stop Dose Admin Diazepam 2.5 mg 05/16/23 14:41 05/16/23 14:53 Diazepam 5 Mg/Ml Inj IV 05/16/23 14:42 2.5 mg ONCE ONE Administration Sodium Chloride 1,000 mls @ 1,000 mls/hr 05/16/23 12:38 05/16/23 13:54 0.9 % Sodium Chloride 1000 Ml IV 05/16/23 13:37 Infused .Q1H ONE Infusion Medical Decision Making MDM Narrative Medical decision making narrative: I do suspect that the lightheadedness that brought her here today is multifactorial. I discussed that these isolated PVCs are not known cells dangerous. Furthermore has had extensive evaluation for this. Chronically elevated blood pressure I think is also self perpetuating with checking and underlying history of anxiety. May be also with propensity towards syncope with a low resting vagal tone. Mast cell this stabilization is another matter only other. She expresses concern that she might be having a heart attack. I think that this is quite unlikely. Happy to evaluate. quality assurance monitor chassis for some time in the emergency department. Check orthostatics. Check labs in general including screening for anemia. EKG is below happens to be without any PVCs captured. I would recommend that not continue to check blood pressures generally. Labs are wholly reassuring. With IV hydration frequency of PVCs on monitor did fade. [place] improved. Did also give low-dose Valium with history of dizziness and what I think is some related anxiety. I did discuss this case with her Cardiology Clinic/provider on-call. Reviewed options for medication. Carvedilol recommended. Did discuss this with Ms. Restrepo. She does recall this medication in the past. There were some extenuating or dosing circumstances that may have been related to perceived intolerance. Would encourage to continue beyond 1 or 2 doses to know for sure. Overall improved. During further conversation PVCs did start to return in frequency little bit toward the end of the visit. See patient discharge plan further discussion Medical Records Medical records reviewed: Yes I reviewed the patient's medical records Lab Data Lab results reviewed: Yes I reviewed the patient's lab results Labs: Lab Results 05/16/23 05/16/23 Range/Units 12:56 13:11 WBC 3.84 L (4.50-11.00) K/uL RBC 5.31 H (4.00-5.20) m/uL Hgb 15.3 (12.0-16.0) gm/dL Hct 45.7 (33.0-51.0) % MCV 86 (80-100) fL MCH 29 (26-34) pg MCHC 34 (32-36) gm/dL RDW Coeff of Jaylen 12.9 (11.5-15.5) % Plt Count 193 (140-440) K/uL Neut % (Auto) 54.2 (42.0-72.0) % Lymph % (Auto) 32.3 (20-44) % Smyth % (Auto) 11.7 H (0.0-11.0) % Eos % (Auto) 1.0 (0.0-7.0) % Baso % (Auto) 0.5 (0.0-3.0) % Neut # (Auto) 2.10 (1.7-7.0) K/uL Lymph # (Auto) 1.20 (0.90-2.90) K/uL Smyth # (Auto) 0.40 (0.00-0.90) K/UL Eos # (Auto) 0.00 (0.00-0.50) K/uL Baso # (Auto) 0.00 (0.00-0.30) K/uL Abs Immat Gran (auto) 0.00 (0.00-0.30) K/uL Imm/Tot Granulo (auto) 0.3 % D-Dimer Quant (PE/DVT) < 0.27 (0.00-0.50) ug/ml Sodium 140 (135-149) mmol/L Potassium 3.6 (3.6-5.1) mmol/L Chloride 107 (96-114) mmol/L Carbon Dioxide 24 (20-32) mmol/L Anion Gap 9 (7-15) mEq/L BUN 16 (7-30) mg/dL Creatinine 0.5 (0.5-1.5) mg/dL Estimated Creat Clear 40.22 Estimated GFR 100 ml/min Glucose 100 (60-115) mg/dL Calcium 9.7 (8.4-10.6) mg/dL Magnesium 2.0 (1.5-2.6) mg/dL Troponin I < 0.01 L (0.01-0.04) ng/mL C-Reactive Protein < 0.5 L (0.5-1.0) mg/dL NT-Pro-B Natriuret Pep 103 pg/mL Urine Color Yellow (Yellow) Urine Appearance Clear (Clear) Urine pH 6.5 (5.0-8.5) Ur Specific [place] 1.015 (1.000-1.030) Urine Protein Negative (Negative) Urine Glucose (UA) Negative (Negative) Urine Ketones Negative (Negative) Urine Blood Negative (Negative) Urine Nitrite Negative (Negative) Urine Bilirubin Negative (Negative) Urine Urobilinogen 0.2 (0.2-1.0) Ur Leukocyte Esterase Negative (Negative) Urine RBC 0-2 (0-2) Urine WBC 0-2 (0-5) Ur Squamous Epith Cells None (None-Few) Urine Bacteria None (None) ECG Data Attestation: I personally reviewed and interpreted this ECG as follows: (Normal sinus rhythm without arrhythmia. No PVCs. Rate 76. No ischemic changes appreciated) Discharge Plan Discharge Clinical Impression: Medication intolerance, Frequent unifocal PVCs, Near syncope Patient Disposition: Home w/ Parent or Adult Condition: Improved Additional Instructions: I am not sure that you are having true allergies to these medications. It is possible that we just have not continued long enough on them to see true potential effect of your antihypertensives. Real allergies would include rash, swelling of the lips tongue mouth throat, wheeze, maybe abdominal cramping and vomiting. Would continue on the furosemide dosing every other day or half dose daily. Recommendations are to try again carvedilol. Outside of the symptoms as outlined above, would try to continue to take the carvedilol. This is at a very low dose; lower than typically prescribed. Hopefully we can increase it a little bit in the future if tolerated. And without the symptoms as mentioned above, I would consider avoiding checking your blood pressure and pulse and oximetry readings over the next week or 2. Otherwise follow-up as scheduled next week. Care in transitions in light of new medication. Return for persistent worsening lightheadedness, persistent and escalating shortness of breath, chest pain. Nice to see you. Prescriptions: New carvedilol 6.25 mg tablet 6.25 mg PO BID Qty: 60 1RF Rx Instructions: must administer with a meal/food No Action aspirin 81 mg capsule 81 mg PO DAILY meclizine 12.5 mg tablet 12.5 mg PO TID PRN Patient Comments: Every 8 Hours as needed alprazolam 0.25 mg tablet 0.25 mg PO TID PRN Patient Comments: TAKE ONE-HALF TABLET BY MOUTH THREE TIMES DAILY NEEDED nitroglycerin 0.4 mg tablet, sublingual 0.4 mg sublingual Q5M PRN Patient Comments: Every 5 Minutes X 3 as needed ondansetron 4 mg tablet,disintegrating 4 mg translingual Q6H PRN Patient Comments: Every 6 Hours as needed fluticasone propionate 50 mcg/actuation spray,suspension 1 - 2 spray INTRANASAL BID PRN Patient Comments: Twice A Day as needed cholecalciferol (vitamin D3) 50 mcg (2,000 unit) tablet 50 mcg PO DAILY Patient Comments: Daily Follow Up/Referrals: Kyra Perera PA-C [Primary Care Provider] - Stand Alone Forms: [employer] Info Instructions
[2023-05-16 12:38] VITALS: O2SAT 94
[2023-05-16 12:42] VITALS: BP 202/124; BP 207/120; BP 215/109; PULSE 74; PULSE 75; PULSE 84
[2023-05-16 13:07] LABS: Basophils Percent Auto 0.5 % (0.0-3.0); Hematocrit 45.7 % (33.0-51.0); Hemoglobin* 15.3 gm/dL (12.0-16.0); Immature Granulocytes Pct Auto 0.3 %; Lymphocytes Percent Auto 32.3 % (20-44); Mean Corpuscular HGB Conc 34 gm/dL (32-36); Mean Corpuscular Hemoglobin 29 pg (26-34); Mean Corpuscular Volume 86 fL (80-100); Monocytes Percent Auto 11.7 % (0.0-11.0); Neutrophils Percent Auto 54.2 % (42.0-72.0); Platelet Count* 193 K/uL (140-440); RDW Coefficient of Variation % 12.9 % (11.5-15.5); Red Blood Count 5.31 m/uL (4.00-5.20); White Blood Count* 3.84 K/uL (4.50-11.00)
[2023-05-16 13:10] LABS: Slide Review Reflex No
[2023-05-16] MEDS: 0.9 % SODIUM CHLORIDE 1000 ml 1,000 ML IV (13:14)
[2023-05-16 13:21] LABS: Chloride* 107 mmol/L (96-114); Potassium* 3.6 mmol/L (3.6-5.1); Sodium* 140 mmol/L (135-149)
[2023-05-16 13:23] LABS: Creatinine* 0.5 mg/dL (0.5-1.5); Est. Creatinine Clearance* 40.22; Estimated Glomerular Filt Rate 100 ml/min
[2023-05-16 13:24] LABS: Appearance Urine Clear (Clear); Bilirubin Urine Negative (Negative); Blood Urine Negative (Negative); Color Urine Yellow (Yellow); Glucose Urine Negative (Negative); Ketones Urine Negative (Negative); Leukocyte Esterase Urine Negative (Negative); Nitrite Urine Negative (Negative); Protein Urine Negative (Negative); Specific Gravity Urine 1.015 (1.000-1.030); Urobilinogen Urine 0.2 (0.2-1.0); pH Urine 6.5 (5.0-8.5)
[2023-05-16 13:24] LABS: Anion Gap 9 mEq/L (7-15); Blood Urea Nitrogen* 16 mg/dL (7-30); Carbon Dioxide* 24 mmol/L (20-32); Glucose* 100 mg/dL (60-115)
[2023-05-16 13:25] LABS: Calcium* 9.7 mg/dL (8.4-10.6)
[2023-05-16 13:28] LABS: C Reactive Protein* < 0.5 mg/dL (0.5-1.0)
[2023-05-16 13:39] LABS: D Dimer Quantitative* < 0.27 ug/ml (0.00-0.50)
[2023-05-16 13:39] LABS: RBC Urine 0-2 (0-2); WBC Urine 0-2 (0-5)
[2023-05-16 13:56] LABS: NT Pro B Type NatriureticPept* 103 pg/mL; Troponin I* < 0.01 ng/mL (0.01-0.04)
[2023-05-16] MEDS: diazePAM 5 MG/ML inj 2.5 MG IV (14:53)
== END 2023-05-16 15:20 | disposition home or self-care (01) ==
PROVIDERS: Emergency Provider Family Medicine; PCP Physician Assistant Medical
DX: I49.3 Ventricular premature depolarization (principal); R55 Syncope and collapse; T50.905A Adverse effect of unspecified drugs, medicaments and biological substances, initial encounter
CPT/HCPCS: 36415; 80048; 81001; 83735; 83880; 84484; 85025; 85379; 86140; 93005; 94761; 96374; 99284; J3360; J7030

== ENCOUNTER 2023-06-30 14:25 | Inpatient (IN) | payer MEDICARE, BC, SELFPAY ==
[2023-06-30] VITALS (26 sets, daily range): BP systolic 198–229; BP diastolic 107–130; PULSE 73–87; RESP 16–22; TEMP 36.8–37; O2SAT 83–96; BMI 26.5; BMI 26.4
--- NOTE | 2023-06-30 14:43 | CT_ITS ---
Patient: JOSE CHOW Facility:?[facility] Patient ID:?[id number] Site Patient ID:?[id number]. Site :?1950 Study:?CT-Head NON ACUTE-06/30/2023 2:57:25 PM Ordering Physician:?DR. MORIN Final Report: INDICATION: RT ARM WEAKNESS. TECHNIQUE: Head CT without contrast. COMPARISON: None. FINDINGS: CSF spaces: Within normal limits for age. Brain parenchyma and extra-axial spaces: There are nonspecific low attenuation white matter changes consistent with chronic microvascular disease. No sign of mass, hemorrhage, or midline shift. Skull base and calvarium: The visualized paranasal sinuses and mastoid air cells demonstrate no acute or significant findings. The visualized orbits are grossly unremarkable. No skull fractures. IMPRESSION: No evidence of acute intracranial abnormality on this unenhanced CT. Mild chronic microvascular ischemic changes. Please note that all CT scans at this facility use dose modulation, iterative reconstruction, and/or weight-based dosing when appropriate to reduce radiation dose to as low as reasonably achievable. Dictated by Terrance Molina MD @ 06/30/2023 3:22:14 PM Signed by:?Terrance Molina MD @06/30/2023 3:22:14 PM (Electronic Signature)
--- NOTE | 2023-06-30 14:43 | CT_ITS ---
Patient: JOSE CHOW Facility:?[facility] Patient ID:?[id number] Site Patient ID:?[id number]. Site :?1950 Study:?CT-Head Angio 95 CC ISOVUE 370 NON ACUTE-06/30/2023 2:58:37 PM Ordering Physician:?DR. MORIN Final Report: DATE: 06/30/2023 CLINICAL HISTORY: Patient with focal neurological deficits. TECHNIQUE: Standard helical CT image acquisition through the intracranial circulation following intravenous administration of contrast material with bolus tracking. 2D and 3D MIP images for post-processing were performed and interpreted on an independent workstation and 3D images were permanently archived. COMPARISON: CT same day. FINDINGS: There is no cerebral aneurysm or large vessel occlusion. There is mild to moderate scattered intracranial atherosclerosis. The non-dominant left vertebral artery terminates in the PICA. The visualized venous structures are patent. IMPRESSION: 1. No large vessel occlusion. 2. Mild to moderate scattered intracranial atherosclerosis. Please note that all CT scans at this facility use dose modulation, iterative reconstruction, and/or weight-based dosing when appropriate to reduce radiation dose to as low as reasonably achievable. Dictated by Angeles Cueva MD @ 06/30/2023 5:24:31 PM Signed by:?Angeles Cueva MD @06/30/2023 5:24:31 PM (Electronic Signature)
--- NOTE | 2023-06-30 14:43 | CT_ITS ---
Patient: JOSE CHOW Facility:?[facility] Patient ID:?[id number] Site Patient ID:?[id number]. Site :?1950 Study:?CT-Neck Angio 95 CC ISOVUE 370 NON ACUTE-06/30/2023 2:59:16 PM Ordering Physician:?DR. MORIN Final Report: DATE: 06/30/2023 CLINICAL HISTORY: Patient with right arm weakness. TECHNIQUE: Standard helical CT image acquisition of the neck up to the skull base after bolus intravenous contrast enhancement. 2D and 3D MIP images for post-processing were performed and interpreted on an independent workstation and 3D images were permanently archived. COMPARISON: CT same day. FINDINGS: The origins of the great vessels from the aortic arch are patent. The origin of the right vertebral artery is patent. The origin of the left vertebral artery is patent. The common carotid arteries are patent. There is a mild (<50%) stenosis at the origin of the right internal carotid artery by NASCET criteria. This is caused by calcified and noncalcified plaque with a <2mm residual lumen. There is a mild (<50%) stenosis at the origin of the left internal carotid artery by NASCET criteria. This is caused by calcified and noncalcified plaque with a <2mm residual lumen. The rest of the cervical segments of the internal carotid arteries are patent up to the skull base. The right vertebral artery is dominant. The cervical segments of the vertebral arteries are patent up to the skull base. The visualized lung apices are unremarkable. The thyroid gland is unremarkable. The soft tissues of the neck are unremarkable. There are degenerative changes in the cervical spine. IMPRESSION: 1. Mild (<50%) stenosis at the origin of the right internal carotid artery by NASCET criteria. This is caused by calcified and noncalcified plaque with a <2mm residual lumen. 2. Mild (<50%) stenosis at the origin of the left internal carotid artery by NASCET criteria. This is caused by calcified and noncalcified plaque with a <2mm residual lumen. Please note that all CT scans at this facility use dose modulation, iterative reconstruction, and/or weight-based dosing when appropriate to reduce radiation dose to as low as reasonably achievable. Dictated by Angeles Cueva MD @ 06/30/2023 5:13:56 PM Signed by:?nAgeles Cueva MD @06/30/2023 5:13:56 PM (Electronic Signature)
[2023-06-30 14:58] LABS: Basophils Absolute Auto 0.02 K/uL (0.00-0.30); Basophils Percent Auto 0.4 % (0.0-3.0); Eosinophils Absolute Auto 0.14 K/uL (0.00-0.50); Eosinophils Percent Auto 2.5 % (0.0-7.0); Hematocrit 48.6 % (33.0-51.0); Hemoglobin* 16.4 gm/dL (12.0-16.0); Immature Granulocytes Abs Auto 0.05 K/uL (0.00-0.30); Immature Granulocytes Pct Auto 0.9 %; Lymphocytes Absolute Auto 1.95 K/uL (0.90-2.90); Lymphocytes Percent Auto 34.8 % (20-44); Mean Corpuscular HGB Conc 34 gm/dL (32-36); Mean Corpuscular Hemoglobin 29 pg (26-34); Mean Corpuscular Volume 86 fL (80-100); Monocytes Percent Auto 9.1 % (0.0-11.0); Neutrophils Absolute Auto 2.93 K/uL (1.7-7.0); Neutrophils Percent Auto 52.3 % (42.0-72.0); Platelet Count* 212 K/uL (140-440); RDW Coefficient of Variation % 12.8 % (11.5-15.5); Red Blood Count 5.63 m/uL (4.00-5.20)
[2023-06-30] MEDS: 0.9 % SODIUM CHLORIDE 1000 ml 1,000 ML IV (15:00)
[2023-06-30 15:05] LABS: Slide Review Reflex No
[2023-06-30 15:08] LABS: Chloride* 110 mmol/L (96-114); Sodium* 140 mmol/L (135-149)
[2023-06-30 15:09] LABS: Potassium* 3.5 mmol/L (3.6-5.1)
[2023-06-30 15:11] LABS: Anion Gap 3 mEq/L (7-15); Carbon Dioxide* 27 mmol/L (20-32); Creatinine* 0.7 mg/dL (0.5-1.5); Est. Creatinine Clearance* 39.63; Estimated Glomerular Filt Rate 91 ml/min
[2023-06-30 15:12] LABS: Blood Urea Nitrogen* 15 mg/dL (7-30); Calcium* 9.3 mg/dL (8.4-10.6); Glucose* 108 mg/dL (60-115)
[2023-06-30 15:27] LABS: Appearance Urine Clear (Clear); Bilirubin Urine Negative (Negative); Blood Urine Negative (Negative); Color Urine Yellow (Yellow); Glucose Urine Negative (Negative); Ketones Urine Negative (Negative); Leukocyte Esterase Urine Negative (Negative); Nitrite Urine Negative (Negative); Protein Urine Negative (Negative); Specific Gravity Urine 1.015 (1.000-1.030); Urobilinogen Urine 0.2 (0.2-1.0); pH Urine 7.5 (5.0-8.5)
[2023-06-30 15:27] LABS: Troponin I* < 0.01 ng/mL (0.01-0.04)
[2023-06-30 15:30] LABS: INR 0.92 (0.91-1.10); Partial Thromboplastin Time* 33 Seconds (23-33); Prothrombin Time 12.9 Seconds
--- NOTE | 2023-06-30 15:34 | MR_ITS ---
Patient: JOSE CHOW Facility:?[facility] Patient ID:?[id number] Site Patient ID:?[id number]. Site :?1950 Study:?MRI-Head W/O-06/30/2023 4:48:04 PM Ordering Physician:MILTON RITTER Final Report: Indication: Expressive aphasia. Technique: Multisequence multiplanar MRI of the brain without the use of intravenous contrast. Comparison: MRI brain dated 05/07/2019. Findings: New diffusion restriction in the left centrum semiovale and posterior putamen consistent with acute ischemia. No significant associated T2/FLAIR hyperintensity. Similar scattered foci of T2 prolongation within the supratentorial white matter typical of chronic small vessel ischemic changes. Similar mild diffuse parenchymal volume loss without ventricular obstruction. Flow voids of the larger intracranial arteries are preserved. Bone marrow signal intensity of the calvarium is within normal limits. The orbits are unremarkable. The paranasal sinuses and mastoid air cells are predominantly clear. Impression: 1. New diffusion restriction within the left centrum semiovale and posterior putamen consistent with acute ischemia. Lack of associated T2/FLAIR hyperintensity suggests time course of less than 6 hours. 2. Similar mild diffuse parenchymal volume loss and chronic small-vessel ischemic changes. Findings were discussed with Dr. Brito on 06/30/2023 at 5:01 p.m.. Dictated by Andres Galvan MD @ 06/30/2023 5:01:41 PM Signed by:?Andres Galvan MD @06/30/2023 5:01:41 PM (Electronic Signature)
--- OUTSIDE RECORDS SUMMARY | 2023-06-30 15:40 | XMS_ITS | Continuity of Care Document ---
Author Name Unknown Organization [facility] Address [address] [place] [address] Phone Care Team Providers Care Gas Processing Plant Operator Name Role Phone Bernabe MAURICE, Clayton Unavailable Unavailable Advance Directives Directive Yes / No Effective Date File Name No Information Encounters Encounter Description Practice Location Reason(s) For Visit Diagnoses Date Provider Providers Copied on Encounter [facility], [address] [place] [address], [place], [address], [place] tel:[phone] [facility] No Information Bernabe Arnold. [facility], [address], [place], [place], [id number] , [place]. tel:[phone] Family History Family Member Type Diagnosis Age At Onset No Information Payers Payer name Insurance type Covered constitution party ID Authoriza tion(s) No Information Social [...]
--- OUTSIDE RECORDS SUMMARY | 2023-06-30 15:40 | XMS_ITS | Clinical Summary ---
Author Name Unknown [facility] Address [address] [address] Phone Care Team Providers Care Cigar Patcher Name Role Phone Elsewhere, Pcp Primary Care Provider Unavailabl e Allergies Active Allergy Reactions Criticality Noted Date Comments Amoxicillin Swelling 12/20/2014 Morphine Anaphylaxis 12/20/2014 Penicillin G Swelling 12/20/2014 Unclear Patient Report 12/20/2014 Blood pressure medications Hydrocodone-Acetamino phen Nausea and Vomiting 12/20/2014 Active Problems No known active problems Surgical History Surgery Date Site/Laterality Comments CHOLECYSTECTOMY SECTION TONSILLECTOMY Medical History Medical History Date Comments HTN (hypertension) Anxiety Social History Tobacco Use Types Packs/Day Years Used Date Smoking Tobacco: Never Alcohol Use Standard Drinks/Week Comments No 0 (1 standard drink = 0.6 oz pur e alcohol) Sex and Gender Information Value Date Recorded Sex Assigned at Not on file Gender Identity Not on file Sexual Orientation Not on file Obstetrics History Last Filed Vital Signs Vital Sign Reading Time Taken Comments Blood Pressure 178/85 12/20/2014 1:30 PM CDT Pulse 68 12/20/2014 1:30 PM CDT Temperature 36.6 ??C (97.8 ??F) 12/20/2014 11:53 AM C DT Respiratory Rate 29 12/20/2014 1:30 PM CDT Oxygen Saturation 96% 12/20/2014 1:30 PM CDT Inhaled Oxygen Concentration - - Weight 56.7 kg (125 lb) 12/20/2014 11:53 AM CDT Height 157.5 cm (5' 2) 12/20/2014 11:53 AM CDT Body Mass Index 22.86 12/20/2014 11:53 AM CDT Plan of Treatment Not on file Care Teams Cigar Patcher Relationship Specialty Start Date End Date Elsewhere, Pcp PCP - General 12/20/14
--- OUTSIDE RECORDS SUMMARY | 2023-06-30 15:40 | XMS_ITS | Referral Summary ---
Author Name Unknown Organization [facility] Address [address] [place] [id number] Care Team Providers Care Environmental Test Technician Name Role Phone Gwensofi Kyra Bell Primary Care Provider [phone] Allergies Active Allergy Reactions Criticality Noted Date Comments Atorvastatin 10/28/2010 Other reaction(s): Myalgia Caused myalgias. Caused myalgias. Caused myalgias. Caused myalgias. Diltiazem Anxiety Low 05/12/2011 Hydralazine 05/12/2011 Other reaction(s): Tachycardia Hydrochlorothiazide 09/26/2007 ? asthma ? asthma Hydrocodone-Acetaminophen Nausea and Vomiting 02/29/2012 Labetalol Shortness Of Breath High 05/05/2011 Lactose 02/18/2009 Other reaction(s): Intolerance-Can't Take Flu-like symptoms Latex Other (See Comments) 06/15/2016 Lisinopril 11/30/2007 Other reaction(s): Chest Pain Lorazepam Other (See Comments) 03/26/2010 Pt reports depression Pt reports depression Losartan Shortness Of Breath High 12/01/2010 Noted dyspnea Methyldopa Rash Low 06/13/2011 Metoprolol Shortness Of Breath High 12/01/2010 Possible dyspnea. Possible dyspnea. Morphine Anaphylaxis High 05/22/2006 Olmesartan Dizziness 03/18/2022 vertigo Penicillins Swelling 05/22/2006 Other reaction(s): Angioedema, Angioedema Rosuvastatin 10/28/2010 Other reaction(s): Myalgia Caused myalgias. Caused myalgias. Caused myalgias. Caused myalgias. Shellfish-Derived Products High 1 Other reaction(s): Angioedema Had severe pain and swelling after lobster Sulfa Antibiotics Hives High 05/22/2006 Verapamil Shortness Of Breath High 05/02/2011 Medications No known medications Active Problems No known active problems Social History Tobacco Use Types Packs/Day Years Used Date Smoking Tobacco: Never Assessed Adolescent Education Answer Date Record ed Getting School Help Needed Not on file 12/25 Sex and Gender Information Value Date Recorded Sex Assigned at Not on file Gender Identity Not on file Sexual Orientation Not on file Last Filed Vital Signs Vital Sign Reading Time Taken Comments Blood Pressure 182/98 03/26/2022 9:01 PM COMMUNICATIONS ATTENDANT Pulse 79 03/26/2022 9:01 PM COMMUNICATIONS ATTENDANT Temperature 37.2 ??C (98.9 ??F) 03/26/2022 5:25 PM CS T Respiratory Rate 18 03/26/2022 9:01 PM COMMUNICATIONS ATTENDANT Oxygen Saturation 96% 03/26/2022 9:01 PM COMMUNICATIONS ATTENDANT Inhaled Oxygen Concentration - - Weight 65.8 kg (145 lb) 08/16/2019 5:39 PM CDT Height - - Body Mass Index - - Plan of Treatment Not on file Procedures Procedure Name Priority Date/Time Associated Diagnosis Comments COMPREHENSIVE METABOLIC PANEL STAT 08/16/2019 5:48 PM CDT from Last 3 Months or Most Recently Relevant to Health Maintenance Results * (ABNORMAL) Comprehensive metabolic panel (08/16/2019 5:48 PM CDT) Sodium 141 133 - 144 mmol/L 08/16/2019 6:[address] [facility] Potassium 3.6 3.4 - 5.3 mmol/L 08/16/2019 6:[address] [facility] Chloride 109 94 - 109 mmol/L 08/16/2019 6:[address] [facility] Carbon Dioxide 27 20 - 32 mmol/L 08/16/2019 6:[address] [facility] Anion Gap 5 3 - 14 mmol/L 08/16/2019 6:[address] [facility] Glucose 123(H) 70 - 99 mg/dL 08/16/2019 6:[address] [facility] Urea Nitrogen 18 7 - 30 mg/dL 08/16/2019 6:[address] [facility] Creatinine 0.76 0.52 - 1.04 mg/dL 08/16/2019 6:[address] [facility] GFR Estimate 80 >60 mL/min/{1. 73_m2} 08/16/2019 6:[address] [facility] Comment: Non GFR Calc Starting 02/27/2018, serum creatinine based estimated GFR (eGFR) will be calculated using the Chronic Kidney Disease Epidemiology Collaboration (CKD-EPI) equation. GFR Estimate If Black >90 >60 mL/min/{1. 73_m2} 08/16/2019 6:[address] [facility] Comment: GFR Calc Starting 02/27/2018, serum creatinine based estimated GFR (eGFR) will be calculated using the Chronic Kidney Disease Epidemiology Collaboration (CKD-EPI) equation. Calcium 8.3(L) 8.5 - 10.1 mg/dL 08/16/2019 6:[address] [facility] Bilirubin Total 0.3 0.2 - 1.3 mg/dL 08/16/2019 6:[address] [facility] Albumin 4.2 3.4 - 5.0 g/dL 08/16/2019 6:[address] [facility] Protein Total 7.8 6.8 - 8.8 g/dL 08/16/2019 6:[address] [facility] Alkaline Phosphatase 121 40 - 150 U/L 08/16/2019 6:[address] [facility] ALT 47 0 - 50 U/L 08/16/2019 6:[address] [facility] AST 30 0 - 45 U/L 08/16/2019 6:[address] [facility] Blood specimen (specimen) 08/16/2019 5:48 PM CDT 08/16/2019 5:54 PM CDT Kirill Ta MD LAB - BLOOD ORDERABL ES [facility] [address] [place], [place] [address], [facility] [phone] from Last 3 Months or Most Recently Relevant to Health Maintenance Care Teams Environmental Test Technician Relationship Specialty Start Date End Date Kyra Perera [address] [place], [place] [id number] PCP - General Physician Service Observer Chief 03/31/22
--- OUTSIDE RECORDS SUMMARY | 2023-06-30 15:40 | XMS_ITS | Clinical Summary ---
Author Name Unknown Organization [place] Address [address] [place] [address] Care Team Providers Care Hand Flatwork Finisher Name Role Phone Gwensofi Kyra Bell Primary Care Provider [phone] Allergies Active Allergy Reactions Criticality Noted Date [...] Comments Blood Pressure 182/98 03/26/2022 9:01 PM PROCESSING TECHNOLOGIST Pulse 79 03/26/2022 9:01 PM PROCESSING TECHNOLOGIST Temperature 37.2 ??C (98.9 ??F) 03/26/2022 5:25 PM CS T Respiratory Rate 18 03/26/2022 9:01 PM PROCESSING TECHNOLOGIST Oxygen Saturation 96% 03/26/2022 9:01 PM PROCESSING TECHNOLOGIST Inhaled Oxygen Concentration - - Weight 65.8 kg (145 lb) 08/16/2019 5:39 PM CDT Height - - Body Mass Index - - Plan of Treatment Health Maintenance Due Date Last Done Comments ADVANCE CARE PLANNING 1950 ANNUAL REVIEW OF HM ORDERS 1950 CT COLONOGRAPHY 1950 DEXA 1950 FIT 1950 FLEX SIG 1950 MAMMO SCREENING 1950 sDNA (Cologuard) 1950 COLONOSCOPY 1960 COLORECTAL CANCER SCREENING 1960 HEPATITIS C SCREENING 1968 LIPID 1990 ZOSTER IMMUNIZATION (1 of 2) 2000 RSV VACCINE ( & 60+ ) (1 - 1-dose 60+ series) 2010 FALL RISK ASSESSMENT 06/21/2015 Pneumococcal Vaccine: 65+ Years (1 of 1 - PCV) 06/21/2015 GLUCOSE 08/15/2022 08/16/2019 COVID-19 Vaccine (3 - 2022-2 4 season) 2022 03/16/2021, 05/23/2020 INFLUENZA VACCINE (#1) 2022 MEDICARE ANNUAL WELLNESS VISIT 01/21/2023 01/21/2022, 01/19/2021, 01/10/2020 PHQ-2 (once per calendar year) 2023 DTAP/TDAP/TD IMMUNIZATION (3 - Td or Tdap) 11/09/2027 11/08/2017, 05/30/2007 HPV IMMUNIZATION Aged Out No longer e ligible based on patient's age to complete this topic IPV IMMUNIZATION Aged Out No longer e ligible based on patient's age to complete this topic MENINGITIS IMMUNIZATION Aged Out No l onger eligible based on patient's age to complete this topic RSV MONOCLONAL ANTIBODY Aged Out No l onger eligible based on patient's age to complete this topic Procedures Procedure Name Priority Date/Time Associated Diagnosis Comments COMPREHENSIVE METABOLIC PANEL STAT 08/16/2019 5:48 PM CDT from Last 3 Months or Most Recently Relevant to Health Maintenance Results * (ABNORMAL) Comprehensive metabolic panel (08/16/2019 5:48 PM CDT) Sodium 141 133 - 144 mmol/L 08/16/2019 6:05 PM CDT [facility] Potassium 3.6 3.4 - 5.3 mmol/L 08/16/2019 6:05 PM CDT [facility] Chloride 109 94 - 109 mmol/L 08/16/2019 6:05 PM T [facility] Carbon Dioxide 27 20 - 32 mmol/L 08/16/2019 6:13 PM T [facility] Anion Gap 5 3 - 14 mmol/L 08/16/2019 6:13 PM [facility] Glucose 123(H) 70 - 99 mg/dL 08/16/2019 6:13 PM T [facility] Urea Nitrogen 18 7 - 30 mg/dL 08/16/2019 6:13 PM T [facility] Creatinine 0.76 0.52 - 1.04 mg/dL 08/16/2019 6:13 PM T [facility] GFR Estimate 80 >60 mL/min/{1. 73_m2} 08/16/2019 6:13 PM T [facility] Comment: Non GFR Calc Starting 02/27/2018, serum creatinine based estimated GFR (eGFR) will be calculated using the Chronic Kidney Disease Epidemiology Collaboration (CKD-EPI) equation. GFR Estimate If Black >90 >60 mL/min/{1. 73_m2} 08/16/2019 6:13 PM CDT [facility] Comment: GFR Calc Starting 02/27/2018, serum creatinine based estimated GFR (eGFR) will be calculated using the Chronic Kidney Disease Epidemiology Collaboration (CKD-EPI) equation. Calcium 8.3(L) 8.5 - 10.1 mg/dL 08/16/2019 6:13 PM CDT [facility] Bilirubin Total 0.3 0.2 - 1.3 mg/dL 08/16/2019 6:13 PM CDT [facility] Albumin 4.2 3.4 - 5.0 g/dL 08/16/2019 6:13 PM CDT [facility] Protein Total 7.8 6.8 - 8.8 g/dL 08/16/2019 6:13 PM CDT [facility] Alkaline Phosphatase 121 40 - 150 U/L 08/16/2019 6:13 PM CDT [facility] ALT 47 0 - 50 U/L 08/16/2019 6:13 PM CDT [facility] AST 30 0 - 45 U/L 08/16/2019 6:13 PM CDT [facility] Blood specimen (specimen) 08/16/2019 5:48 PM CDT 08/16/2019 5:54 PM CDT Kirill Ta MD LAB - BLOOD ORDERABL ES [facility] [address] [facility] [place] [address], [facility] [phone] from Last 3 Months or Most Recently Relevant to Health Maintenance Care Teams Hand Flatwork Finisher Relationship Specialty Start Date End Date Kyra Perera [address] [place], [place] [id number] PCP - General Physician National Van Owner Operator 03/31/22
--- OUTSIDE RECORDS SUMMARY | 2023-06-30 15:40 | XMS_ITS | Clinical Summary ---
Author Name Unknown Organization [facility] Address [address] [place] [address] Care Team Providers Care Slip Seat Coverer Name Role Phone Bettye Davis MD Primary Care Provider + Source Comments You are receiving this document as you are listed as the primary care provider,follow-up provider, or the patient has been referred to you for consultation.This is in compliance with the Medicare andMedicaid EHR Incentive Program,which states Providers who transition their patient to another setting of careor provider of care or refers their patient to another provider of care shouldprovide summary care record for each transition of care or referral. [facility] Allergies Active Allergy Reactions Criticality Noted Date Comments Atorvastatin 10/28/2010 Caused myalgias. Diltiazem Anxiety 05/12/2011 Hydralazine Tachycardia 05/12/2011 Hydrochlorothiazide 09/26/2007 ? asthma Hydrocodone-Acetaminophen Nausea And Vomiting 1 05/01/2011 Lorazepam 03/26/2010 Pt reports depression Methyldopa Rash 06/13/2011 Morphine 05/22/2006 Penicillins 05/22/2006 Rosuvastatin 10/28/2010 Caused myalgias. Shellfish-Derived Products Angioedema High 1 Had severe pain and swelling after lobster Sulfa Antibiotics Hives High 05/22/2006 Medications Medication Sig Dispensed Refills Start Date End Date Status ALPRAZolam (XANAX) 0.25 MG tablet TAKE 1/2 TABLET TWICE DAILY NEEDED 10/05/2016 Active aspirin, enteric-coated 81 MG enteric coated tablet Daily 01/09/2017 Active Cholecalciferol (VITAMIN D3) 2000 units Take 2,000 Units by mouth. 02/27/2012 Active Coenzyme Q10 (SM COENZYME Q-10) 100 MG Take 100 mg by mouth. 01/09/2017 Active fluticasone (FLONASE) 50 MCG/ACT nasal solution INHALE 1-2 SPRAY IN EACH NOSTRIL BY INTRANASAL ROUTE ONCE DAILY. 12/30/2013 Active meclizine (ANTIVERT) 25 MG tablet Take 25 mg by mouth. 02/09/2016 Ac tive nitroglycerin (NITROSTAT) 0.[address] 0.4 mg under tongue. 04/12/2017 Active pravastatin (PRAVACHOL) 20 MG tablet Take 10 mg by mouth. 04/12/2017 Acti ve Social History Tobacco Use Types Packs/Day Years Used Date Smoking Tobacco: Never Smokeless Tobacco: Never Sex and Gender Information Value Date Recorded Sex Assigned at Not on file Gender Identity Not on file Sexual Orientation Not on file Plan of Treatment Health Maintenance Due Date Last Done Comments Hep C Screening (Preventive Services) 1950 Medicare Annual Wellness Visit 1950 Cholesterol 06/21/1995 Zoster/Shingles (1 of 2) 2000 Colon Cancer Screening Plan Due 04/21/2012 3 Mammogram 01/04/2013 01/05/2012 Dexa 06/21/2015 Pneumococcal 65+ Yrs (1 - PCV) 06/21/2015 DTaP/Tdap/Td (2 - Tdap) 05/29/2017 05/30/2007 COVID-19 Vaccine ( - 2022-2 4 season) 2022 Influenza (#1) 2022 HepA Aged Out No longer eligi ble based on patient's age to complete this topic HepB Aged Out No longer eligi ble based on patient's age to complete this topic Hib Aged Out No longer eligi ble based on patient's age to complete this topic IPV (Polio) Aged Out No longer eligi ble based on patient's age to complete this topic MCV4 Aged Out No longer eligi ble based on patient's age to complete this topic Care Teams Slip Seat Coverer Relationship Specialty Start Date End Date Bettye Davis MD [address] [place] [address] PCP - General 06/13/10
--- OUTSIDE RECORDS SUMMARY | 2023-06-30 15:40 | XMS_ITS | Clinical Summary ---
Author Name Unknown Organization [facility] Address [place], [place] [address] Care Team Providers Care Meeting Coordinator Name Role Phone Kyra Perera Primary Care Provider Genaro Leonard MD Unavailable Janay Nunez MD Unavailable [phone] Carolyn Pisano Unavailable Keo Escobar MD Unavailable Allergies Active Allergy Reactions Criticality Noted Date Comments Amlodipine Palpitations 03/03/2020 Atorvastatin Myalgia 10/28/2010 Caused myalgias. Caused myalgias. Caused myalgias. Other reaction(s): Myalgia Caused myalgias. Caused myalgias. Caused myalgias. Caused myalgias. Chlorthalidone Shortness Of Breath 03/03/2020 Clonidine Shortness Of Breath 03/04/2020 Diltiazem Anxiety Low 05/12/2011 Doxazosin Bleeding 05/21/2020 Nose bleeding, tried twice for 3 days and happened both times Nitroimidazoles Other - Describe In Comment Field 03/20/2013 got sick from it Hydralazine Tachycardia 05/12/2011 Other reaction(s): Tachycardia Hydrochlorothiazide Other - Describe In Comment Field 09/26/2007 ? asthma ? asthma ? asthma Isosorbide Palpitations 04/07/2020 Labetalol Dyspnea High 05/05/2011 Lactose Intolerance-Can't Take 02/18/2009 Flu-like symptoms Other reaction(s): Intolerance-Can't Take Flu-like symptoms Latex Other - Describe In Comment Field 06/15/2016 Lisinopril Chest Pain 11/30/2007 Other reaction(s): Chest Pain Lorazepam Other - Describe In Comment Field 03/26/2010 Pt reports depression Pt reports depression Pt reports depression Losartan Shortness Of Breath,Dyspnea High 12/01/2010 Noted dyspnea Noted dyspnea Methyldopa Rash Low 06/13/2011 Metoprolol Shortness Of Breath,Dyspnea High 12/01/2010 Possible dyspnea. Possible dyspnea. Possible dyspnea. Possible dyspnea. Morphine Anaphylaxis High 05/22/2006 Olmesartan Dizziness 03/18/2022 vertigo Penicillins Angioedema Low 05/22/2006 Other reaction(s): Angioedema, Angioedema Propranolol Headache 01/03/2023 Rosuvastatin Myalgia 10/28/2010 Caused myalgias. Caused myalgias. Caused myalgias. Other reaction(s): Myalgia Caused myalgias. Caused myalgias. Caused myalgias. Caused myalgias. Shellfish Containing Products Angioedema High 05/11/2010 Had severe pain and swelling after lobster Other reaction(s): Angioedema Had severe pain and swelling after lobster Shellfish Derived Angioedema High 05/11/2010 Lobster: ??Angioedema and severe stomach pain; has to go to ER when she ate lobster Had severe pain and swelling after lobster Lobster: ??Angioedema and severe stomach pain; has to go to ER when she ate lobster Sulfa (Sulfonamide Antibiotics) Hives High 05/22/2006 Verapamil Dyspnea High 05/02/2011 Hydrocodone-Acetaminophen Nausea And Vomiting 1 05/01/2011 Medications Medication Sig Dispensed Refills Start Date End Date Status aspirin (ECOTRIN) 81 mg enteric coated tablet Daily 0 01/09/2017 Active meclizine (ANTIVERT) 25 mg tabletIndications:Rosita tigo Take 1 tablet by mouth 3 times daily if needed. 30 tablet 1 08/14/2018 Active ondansetron (ZOFRAN ODT) 4 mg disintegrating tabletIndications:Mark sea DISSOLVE 1 TABLET ON TONGUE EVERY 6 HOURS NEEDED FOR VOMITING 30 Tablet 2 01/19/2021 Active cholecalciferol (Vitamin D-3) 2,000 unit capsuleIndications:Vi tamin D deficiency Take 2 Capsules (4,000 units) by mouth once daily. 0 10/05/2021 Active famotidine (Pepcid AC) 10 mg tabletIndications:Mas t cell activation syndrome (HC) Take 1 Tablet (10 mg) by mouth once daily. 11/21/2022 Active furosemide (LASIX) 20 mg tabletIndications:Hyp ertension, unspecified type every other morning. 45 Tablet 3 01/03/2023 Active nitroglycerin (NITROSTAT) 0.4 mg sublingual tabletIndications:Susan st pain in adult Place 1 Tablet (0.4 mg) under the tongue every 5 minutes if needed for Chest Pain. Patient tolerated in the past. 25 Tablet 5 01/03/2023 Active ALPRAZolam (XANAX) 0.25 mg tabletIndications:Anx iety state TAKE ONE-HALF TABLET BY MOUTH THREE TIMES DAILY NEEDED 45 Tablet 5 02/15/2023 Active fluticasone (50 mcg per actuation) nasal solution (FLONASE)Indications: Acute non-recurrent maxillary sinusitis INHALE 1-2 SPRAYS IN EACH NOSTRIL BY INTRANASAL ROUTE ONCE DAILY. 48 g 3 02/15/2023 Active diazePAM (VALIUM) 5 mg tabletIndications:Anx iety state TAKE 1/2-1 TABLETS BY MOUTH EVERY 6 HOURS NEEDED FOR ANXIETY. 20 Tablet 03/31/2023 Active telmisartan (MICARDIS) 20 mg tabletIndications:Susan st pain in adult Take 0.5 Tablets (10 mg) by mouth once daily. 45 Tablet 3 06/23/2023 Active metoprolol tartrate (LOPRESSOR) 25 mg tabletIndications:Susan st pain in adult Take 0.25 Tablets (6.25 mg) by mouth two times daily. 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 Typically, a plan of annual monitoring would be employed, with prescription reserved for TSH values consistently greater that 5-10. TSH 1.83 (10-13, above). Additionally: despite the patients family history of thyroid cancer not otherwise specified (daughter), her exam and CT of neck do not suggest an obvious thyroid nodule to merit concern. Plan: monitoring, as above. A) TSH/fT4: every year. B) reassurance provided to Patient. C) [email or web address] Screen for colon cancer 04/20/2012 Overview: Colonoscopy 04/2012 normal repeat in 10 years Anxiety state, unspecified 05/05/2011 Lipid disorder 10/28/2010 Tailor's bunion 10/28/2010 Sphincter of Oddi dysfunction 08/19/2010 Esophageal reflux 03/22/2010 Overview: EGD 03/2009 Reactive gastropathy Sprain of neck 07/23/2008 Diverticulosis of colon (without mention of hemo rrhage) 07/23/2008 Degeneration of cervical intervertebral disc Closed Head Injury 05/21/2008 06/16/2008 Overview: Fell down stairs, didn't miss work, MRI normal except for small vessel white matter changes, now with headaches and fatigue (06/15/2008) Abdominal pain, right upper quadrant 05/30/2007 Plantar fascial fibromatosis 02/09/2007 Raynaud's syndrome 01/02/2007 ATYPICAL CHEST DISCOMFORT Unspecified essential hypertension Hypertension Resolved Problems Problem Noted Date Diagnosed Date Resolved Date Stage 3 chronic kidney disease 01/19/2021 04/07/2021 Cardiomyopathy 10/11/2019 04/07/2021 Rosacea 01/02/2007 01/24/2007 Encounters Date Type Department Care Team Description 06/28/2023 Telephone [facility] [address] [facility] [place] [address] Janay Nunez MD Has not rec'd needed letter via [employer] (Unable to see / pull up Letter on [email or web address]) 06/26/2023 9:00 AM CDT Procedure Only [facility] [address] [place] [id number] Marizol Walton L Ac Acupuncture 06/26/2023 Travel 06/24/[address] [address] Janay Nunez MD Letter (Reimbursement for flight) 06/23/2023 11:30 AM CDT Office Visit [address] [address] Janay Nunez MD Follow Up (3 month; PVC; Intermittent CP) 06/23/2023 9:29 AM CDT - 06/23/2023 11:59 PM CDT Hospital Encounter [address] [address] Tito García MD Iverson, Ryan, PT 06/23/2023 Orders Only [address] [address] Janay Nunez MD <No scans attached> 06/23/2023 Travel 06/19/2023 9:00 AM CDT Procedure Only [facility] [address] [place] [address] Marizol Walton L Ac Acupuncture 06/19/2023 Travel 06/12/2023 9:00 AM CDT Procedure Only [facility] [address] [place] [address] Marizol Walton L Ac Acupuncture 06/12/2023 Travel 06/05/2023 1:00 PM CDT - 06/05/2023 11:59 PM CDT Hospital Encounter [address] [address] Tito García MD Iverson, Ryan, PT 06/05/2023 7:30 AM CDT Procedure Only [facility] [address] [place] [address] Marizol Walton L Ac Acupuncture 06/05/2023 Telephone [facility] [address] [facility] [place] [address] Kyra Perera PA Results 06/05/2023 Travel 05/29/2023 12:55 PM CDT - 05/29/2023 11:59 PM CDT Hospital Encounter [address] [address] Tito García MD Iverson, Ryan, PT 05/29/2023 10:30 AM CDT Procedure Only [facility] [address] [facility] [address] Marizol Walton L Ac Acupuncture 05/29/2023 Travel 05/25/2023 1:30 PM CDT Office Visit [facility] [address] [facility] [address] [place] [address] Diogo Acosta MD CV General Cardiology Est (CV Gen Card f/u. Pt reports recent near syncope episode and another episode of low O2 Sat. Review Zio.) 05/25/2023 Travel 05/22/2023 12:58 PM CDT - 05/22/2023 11:59 PM CDT Hospital Encounter [address] [address] Tito García MD Iverson, Ryan, PT 05/22/2023 8:30 AM CDT Procedure Only [facility] [address] [facility] [address] Marizol Walton L Ac Acupuncture (Initial treatment, order is a... 05/22/2023 Travel 05/08/2023 2:27 PM ELECTRO OPTICS ENGINEER - 05/08/2023 11:59 PM ELECTRO OPTICS ENGINEER Hospital Encounter [address] [address] Tito García MD Iverson, Ryan, PT 05/08/2023 Travel 05/04/2023 Orders Only [facility] [address] [facility] [address] Juliana Pollard 1 scan: (1-Ord) Zio Patch final result I-WH 05/03/2023 11:00 AM ELECTRO OPTICS ENGINEER Ancillary Procedure [facility] [address] [place] [address] 05/03/2023 Travel 05/01/2023 12:52 PM ELECTRO OPTICS ENGINEER - 05/01/2023 11:59 PM ELECTRO OPTICS ENGINEER Hospital Encounter [address] [address] Tito García MD Iverson, Ryan, PT 05/01/2023 Travel 04/24/2023 2:25 PM ELECTRO OPTICS ENGINEER - 04/24/2023 11:59 PM ELECTRO OPTICS ENGINEER Hospital Encounter [address] [address] Tito García MD Iverson, Ryan, PT 04/24/2023 Travel 04/17/2023 2:20 PM ELECTRO OPTICS ENGINEER - 04/17/2023 11:59 PM ELECTRO OPTICS ENGINEER Hospital Encounter [address] [address] Tito García MD Iverson, Ryan, PT 04/17/2023 Travel 04/04/2023 11:00 AM ELECTRO OPTICS ENGINEER Office Visit [facility] [address] [facility] [address] Janay Nunez MD Follow Up (Hypertension ) 04/03/2023 8:15 AM ELECTRO OPTICS ENGINEER Orders Only [facility] [address] [place] [address] Lab, [facility] 04/03/2023 Travel from Last 3 Months Immunizations Name Administration Dates Next Due COVID-19 vaccine ([employer]) REBA HOPKINS 1 Td, Preservative Free (age >= 7 Years) 8 Tdap 05/30/2007 Family History Medical History Relation Name Comments Heart Disease Brother 1 Osteoarthritis Brother 1 back and leg Other Brother 1 pulmonary hyper tension Cancer-prostate Brother 2 Other Brother [address] grace, htn Good Health Brother 4 Heart Disease Brother 5 Heart Disease Brother 6 Hyperlipidemia Brother 7 Other Father d54 [place], liver e tom Cancer-breast Maternal Aunt Other Mother d86, heart and dm Cancer-breast Paternal Aunt Cancer-breast Paternal Grandmother Lung cancer Sister 1 Good Health Sister 2 possible brain aneurysm, htn Relation Name Status Comments Brother 1 Alive Brother 2 Brother 3 Brother 4 Brother 5 Brother 6 Brother 7 Father Maternal Aunt Maternal Grandfather Mother Paternal Aunt Paternal Grandmother Sister 1 Sister 2 Social History Tobacco Use Types Packs/Day Years Used Date Smoking Tobacco: Never Smokeless Tobacco: Never Tobacco Cessation:Counseling Given: Yes Alcohol Use Standard Drinks/Week Comments No 0 (1 standard drink = 0.6 oz pur e alcohol) does not drink PHQ-2 Answer Date Recorded PHQ-2 TOTAL SCORE 0 01/21/2022 Social Connections Answer Date Recorded Frequency of Communication with Friends and Fami ly Not on file 09/10/2022 Financial Resource Strain Answer Date R ecorded Difficulty of Paying Living Expenses 3 09/06/2021 Difficulty of Paying Living Expenses Not on file 09/06/2021 Food Insecurity Answer Date Recorded Worried About Running Out of Food in the Last Ye ar 1 09/06/2021 Transportation Needs Answer Date Record ed Lack of Transportation (Medical) 1 09/06/2021 Housing Stability Answer Date Recorded Unable to Pay for Housing in the Last Year 1 09/06/2021 Sex and Gender Information Value Date Recorded Sex Assigned at Not on file Gender Identity Not on file Sexual Orientation Not on file Obstetrics History Last Filed Vital Signs Vital Sign Reading Time Taken Comments Blood Pressure 184/120 06/23/2023 11:23 AM CDT Pulse 85 06/23/2023 11:23 AM CDT Temperature 36.8 ??C (98.2 ??F) 03/08/2022 1:46 PM CS T Respiratory Rate 18 06/23/2023 11:23 AM CDT Oxygen Saturation 95% 06/23/2023 11:23 AM CDT Inhaled Oxygen Concentration - - Weight 66.4 kg (146 lb 6.4 oz) 06/23/2023 11:23 AM CDT Height 157.5 cm (5' 2) 05/25/2023 1:32 PM CDT Body Mass Index 26.78 05/25/2023 1:32 PM CDT Plan of Treatment Upcoming Encounters Date Type Department Care Team (Late st Contact Info) Description 07/10/2023 9:00 AM CDT Procedure Only [facility] [address] [place] [address] Marizol Walton L Ac [address] [facility] [place] [address] 07/10/2023 1:00 PM CDT Appointment [facility] [address] [place] [address] Terrance Barr, PT [address] [place] [address] 07/17/2023 1:00 PM CDT Office Visit [facility] [address] [place] [address] Amandeep Benz MD [address] [place] [address] 07/18/2023 8:30 AM CDT Procedure Only [facility] [address] [facility] [address] Marizol Walton L Ac [address] [facility] [place] [address] 07/18/2023 1:00 PM CDT Appointment [facility] [address] [place] [address] Terrance Barr, PT [address] [place] [address] 07/19/2023 8:50 AM CDT Office Visit [facility] [address] [place] [address] Kyra Perera PA [address] [place] [address] 07/25/2023 9:00 AM CDT Procedure Only [facility] [address] [facility] [address] Marizol Walton L Ac [address] [place] [address] 08/01/2023 9:00 AM CDT Procedure Only [facility] [address] [place] [address] Marizol Walton L Ac [address] [place] [address] Health Maintenance Due Date Last Done Comments Pneumococcal series for age 65+ (1 of 2 - PCV) 1956 Zoster (shingles) series for age 50+ (1 of 2) 2000 DEXA/DXA scan for age 65+ 06/21/2015 COVID-19 vaccine series (2022- season) 2022 03/16/2021, 05/23/2020 Mammogram for age 45-75 12/08/2022 12/09/19, 12/31/2020, 05/24/2019, Additional history exists Depression screening for age 12+ 01/21/2023 01/21/2022, 01/19/2021, 01/19/2021, Additional history exists Medicare Wellness for age 65+ 01/22/2023, 01/19/2021, 01/10/2020, Additional history exists Influenza for age 65+ 11/12/2023 BMI (ht and wt on same day) for age 18+ 05/24/2024 05/25/2023, 12/26/2022, 09/21/2022, Additional history exists Tetanus booster 11/09/2027 11/08/2017, 05/30/2007 Lipids for age 45-75 04/03/2028 04/03/2023, 12/30/2022, 07/20/2022, Additional history exists Colonoscopy through age 75 10/10/203210/10, 10/10/2022, 10/10/2022, Additional history exists Tdap Completed 05/30/2007 Hepatitis C screening for ag e 18-79 Completed 02/09/2016 Procedures Procedure Name Priority Date/Time Associated Diagnosis Comments ACUPUNCTURE PLAN OF CARE Routine 06/26/2023 9:01 AM CDT Chronic neck pain ACUPUNCTURE PLAN OF CARE Routine 06/19/2023 9:03 AM CDT Chronic neck pain ACUPUNCTURE PLAN OF CARE Routine 06/12/2023 9:04 AM CDT Chronic neck pain ACUPUNCTURE PLAN OF CARE Routine 06/05/2023 7:36 AM CDT Chronic neck pain ACUPUNCTURE PLAN OF CARE Routine 05/29/2023 10:33 AM CDT Chronic neck pain ACUPUNCTURE PLAN OF CARE Routine 05/23/2023 12:45 PM CDT Chronic neck pain EXTENDED HOLTER Routine 05/04/2023 PVC (premature ventricular contraction) ECHO TTE COMPLETE WO CONTRAST Routine 05/03/2023 11:40 AM ELECTRO OPTICS ENGINEER Chest pain in adult COMP METABOLIC PANEL Routine 04/03/2023 8:20 AM ELECTRO OPTICS ENGINEER Lipid disorder Hypertension, unspecified type VITAMIN D 25 (DEFICIENCY) Routine 04/03/2023 8:20 AM ELECTRO OPTICS ENGINEER Lipid disorder HEMOGLOBIN A1C SCREENING Routine 04/03/2023 8:20 AM ELECTRO OPTICS ENGINEER Lipid disorder LIPID PANEL W REFLEX MEASURED LDL Routine 04/03/2023 8:20 AM ELECTRO OPTICS ENGINEER Lipid disorder COLONOSCOPY SCREENING Routine 10/10/2022 12:00 AM CDT Screen for colon cancer XR MAMMO ALEENA BILAT DIAG Routine 12/08/2021 2:57 PM CDT Breast pain in female ANTI HCV Routine 02/09/2016 10:00 AM ELECTRO OPTICS ENGINEER Need for hepatitis C screening test from Last 3 Months or Most Recently Relevant to Health Maintenance Results * ZIO PATCH XT - weekly to monthly symptoms. (05/04/2023) Janay Nunez MD CARDIAC SERVICES ORD * ECHO TTE COMPLETE WO CONTRAST (05/03/2023 11:40 AM ELECTRO OPTICS ENGINEER) AORTIC VALVE MEAN PG 4 mmHg EJECTION FRACTION 62 % PEAK TR VELOCITY 2.2 m/s LVEDD 3.2 cm MITRAL VALVE MR ERO 5 mm2 Anatomical Region Laterality Modality Ultrasound 05/03/2023 11:1 2 AM ELECTRO OPTICS ENGINEER Narrative 05/03/2023 1:19 PM ELECTRO OPTICS ENGINEER ECHOCARDIOGRAM MIYA CHOW ? Accession#: ?? [id number] : ?1950 72 years Study Date: ?? 05/03/2023 11:12:45 AM Gender: F ?BP: ? 200/104 mmHg Height: 157.00 cm ?BSA: ?1.66 m? ? ? Weight: 65.00 kg ? Tech: ? MCK ? Referring MD: JANAY NUNEZ Site: ? [facility] Reading Location: Mobile-OP Patient Location: Outpatient. Procedure: 2D, Color Doppler and Spectral Doppler. Indication for study: Chest pain, palpitations Cardiac Rhythm: Regular and with premature ventricular contractions.Study quality: Fair. Final Impressions: 1. Normal left ventricular size, moderately increased wall thickness, normal global systolic function, calculated EF of 62 %. 2. Right ventricular cavity size is normal, global systolic RV function is normal. 3. The aortic valve is trileaflet and sclerotic, no stenosis and mild regurgitation. 4. The mitral valve is normal, mild mitral regurgitation. Comparison Compared to prior exam report of 05/11/2022, there has been no significant change. Chamber Sizes and Function Normal left ventricular size, moderately increased wall thickness, normal global systolic function, calculated EF of 62 %. Left atrial size is normal. Right ventricular cavity size is normal, global systolic RV function is normal. RV wall thickness is normal. The right atrium is normal. Right atrial volume index is 13 ml/m? ? ?. Right atrial area is 11 cm? ? ?. The pulmonary artery is of normal size and origin. The sinus of Valsalva is normal sized. The ascending aorta is normal sized. Valves, RV Pressures and Diastolic Function The aortic valve is trileaflet and sclerotic, no stenosis and mild regurgitation. The mitral valve is normal in structure, mild mitral regurgitation. Spectral Doppler shows Grade 1 pattern of LV diastolic filling. The tricuspid valve is normal in structure. Tricuspid regurgitation is trace regurgitation. The tricuspid regurgitant velocity is 2.2 m/s, the estimated right ventricular systolic pressure is 19 mmHg plus right atrial pressure. The pulmonic valve is normal. Trace pulmonary regurgitation. Masses, Effusion, Shunts There is no pericardial effusion. The inferior vena cava is normal sized, respiratory size variation not well visualized. Interatrial septum is not well visualized. MEASUREMENTS AND CALCULATIONS 2-D Measurements and LV Function: LVID (d) 3.2 cm Planimetered EF 62 % LVID (s) 2.1 cm LV FS% (2D) ? 34 % LVPW (d) 1.4 cm LVOT diameter ?? 2.2 cm Ao Sinus 3.7 cm HR ?80 bpm Asc Ao ?? 3.6 cm LA Vol index ?22 ml/m2 LA ? 3.3 cm RA Vol index ?13 ml/m2 ?RA area ? 11 cm?RV Max 4C (d) ?? 3.0 cm Diastology: Mitral ?Tissue Doppler E Peak 0.7 m/s ??e', Septum ? 0.05 m/s A Peak 0.9 m/s ??e', Lateral ?0.08 m/s E/A ?0.7 ?E/e' Average ?? 10.34 DT ? 153 msec Aortic Valve: Vmax ? 1.4 m/s ??IGGY (V) ?? 3.12 cm? AI P 1/2 326 msec VTI ?0.27 m ?? IGGY (I) ?? 3.09 cm? ? ? LVOT V max 1.2 m/s ??Max PG ?8 mmHg LVOT VTI ?? 0.22 m ?? Mean PG ?? 4 mmHg SV ? 83 ml ?Dim Index 0.83 SV index ?? 50 ml/m? ? ? CO ?6.6 l/min ?CI ?4.0 l/min/m? ? ? Mitral Valve: MVA ?5.0 cm? ? ? MR ERO ??0.05 cm? ? ? MV P 1/2 44 msec MR Vol. 13 ml ? MR TVI ??2.48 m Tricuspid Valve and estimated PA pressures: TR Vmax 2.2 m/s TAPSE 2.1 cm TR maxG 19 mmHg . This study was interpreted by an PSYCHIATRIC accredited facility. ??Final ?? Procedure Note Boo Starkey MD - 05/03/2023 ECHOCARDIOGRAM MIYA CHOW : 1950 72 years Study Date: 05/03/2023 11:12:45 AM Gender: F BP: 200/104 mmHg Height: 157.00 cm BSA: 1.66 m? ? ? Weight: 65.00 kg Tech: RONNELL Referring MD: JANAY NUNEZ Site: [facility] Reading Location: Mobile-OP Patient Location: Outpatient. Procedure: 2D, Color Doppler and Spectral Doppler. Indication for study: Chest pain, palpitations Cardiac Rhythm: Regular and with premature ventricular contractions.Studyquality: Fair. Final Impressions: 1. Normal left ventricular size, moderately increased wall thickness,normal global systolic function, calculated EF of 62 %. 2. Right ventricular cavity size is normal, global systolic RV functionis normal. 3. The aortic valve is trileaflet and sclerotic, no stenosis and mildregurgitation. 4. The mitral valve is normal, mild mitral regurgitation. Comparison Compared to prior exam report of 05/11/2022, there has been no significantchange. Chamber Sizes and Function Normal left ventricular size, moderately increased wall thickness, normalglobal systolic function, calculated EF of 62 %. Left atrial size isnormal. Right ventricular cavity size is normal, global systolic RVfunction is normal. RV wall thickness is normal. The right atrium isnormal. Right atrial volume index is 13 ml/m? ? ?. Right atrial area is 11cm? ? ?. The pulmonary artery is of normal size and origin. The sinus ofValsalva is normal sized. The ascending aorta is normal sized. Valves, RV Pressures and Diastolic Function The aortic valve is trileaflet and sclerotic, no stenosis and mildregurgitation. The mitral valve is normal in structure, mild mitralregurgitation. Spectral Doppler shows Grade 1 pattern of LV diastolicfilling. The tricuspid valve is normal in structure. Tricuspidregurgitation is trace regurgitation. The tricuspid regurgitant velocityis 2.2 m/s, the estimated right ventricular systolic pressure is 19 mmHgplus right atrial pressure. The pulmonic valve is normal. Trace pulmonaryregurgitation. Masses, Effusion, Shunts There is no pericardial effusion. The inferior vena cava is normal sized,respiratory size variation not well visualized. Interatrial septum is notwell visualized. MEASUREMENTS AND CALCULATIONS 2-D Measurements and LV Function: LVID (d) 3.2 cm Planimetered EF 62 % LVID (s) 2.1 cm LV FS% (2D) 34 % LVPW (d) 1.4 cm LVOT diameter 2.2 cm Ao Sinus 3.7 cm HR 80 bpm Asc Ao 3.6 cm LA Vol index 22 ml/m2 LA 3.3 cm RA Vol index 13 ml/m2 RA area 11 cm? ? ? RV Max 4C (d) 3.0 cm Diastology: Mitral Tissue Doppler E Peak 0.7 m/s e', Septum 0.05 m/s A Peak 0.9 m/s e', Lateral 0.08 m/s E/A 0.7 E/e' Average 10.34 DT 153 msec Aortic Valve: Vmax 1.4 m/s IGGY (V) 3.12 cm? ? ? AI P 1/2 326 msec VTI 0.27 m IGGY (I) 3.09 cm? ? ? LVOT V max 1.2 m/s Max PG 8 mmHg LVOT VTI 0.22 m Mean PG 4 mmHg SV 83 ml Dim Index 0.83 SV index 50 ml/m? ? ? CO 6.6 l/min CI 4.0 l/min/m? ? ? Mitral Valve: MVA 5.0 cm? ? ? MR ERO 0.05 cm? ? ? MV P 1/2 44 msec MR Vol. 13 ml MR TVI 2.48 m Tricuspid Valve and estimated PA pressures: TR Vmax 2.2 m/s TAPSE 2.1 cm TR maxG 19 mmHg . This study was interpreted by an [facility] accredited facility. Final Janay Nunez MD ECHO ORD * HEMOGLOBIN A1C SCREENING (04/03/2023 8:20 AM ELECTRO OPTICS ENGINEER) HEMOGLOBIN A1C SCREENING 5.9 <=6.4 % 04/03/2023 3:14 PM ELECTRO OPTICS ENGINEER [facility] Blood BLOOD SPECIMEN / Unknown Venipuncture / Unknown 04/03/2023 8:20 AM ELECTRO OPTICS ENGINEER 04/03/2023 8:26 AM ELECTRO OPTICS ENGINEER Narrative [facility] - 04/03/2023 3:14 PM ELECTRO OPTICS ENGINEER ? (<5.7%) ?Normal ? (5.7% to 6.4%) ? Indicates prediabetes ? (>=6.5%) ? Confirms diabetes Falsely low levels may be seen with: Recent Transfusion, Recent Significant Blood Loss, Hemolytic Diseases, or Falsely elevated levels may be seen with: Untreated Anemias, Splenectomy Carolyn ANTHONY CHEMISTRY [facility] [address] [place] [phone], [place] * (ABNORMAL) LIPID PANEL W REFLEX MEASURED LDL (04/03/2023 8:20 AM [employer]LECTRO [employer] ENGINEER) CHOLESTEROL,TOTAL 268(H) 100 - 199 mg/dL 04/03/2023 6:54 PM [employer] ENGINEER [facility] Comment: Cholesterol, Total Reference Ranges Desirable <200 mg/dL Borderline 200-239 mg/dL High >=240 mg/dL TRIGLYCERIDES 232(H) <150 mg/dL 04/03/2023 6:54 PM [employer] ENGINEER [facility] HDL CHOLESTEROL 58 >40 mg/dL 6:54 PM [employer] ENGINEER [facility] NON-HDL CHOLESTEROL 210(H) <145 mg/dl 04/03/2023 6:54 PM [employer] ENGINEER [facility] CHOL/HDL RATIO 4.62(H) <4.50 04/03/2023 6:54 PM [employer] ENGINEER [facility] LDL CHOLESTEROL 164(H) <=130 mg/dL 04/03/2023 6:54 PM [employer] ENGINEER [facility] VLDL CHOLESTEROL 46(H) <=30 mg/dL 04/03/2023 6:54 PM [employer] ENGINEER [facility] PROVIDER ORDERED STATUS FASTING 04/03/2023 6:54 PM [employer] ENGINEER [facility] Blood BLOOD SPECIMEN / Unknown Venipuncture / Unknown 04/03/2023 8:20 AM [employer] ENGINEER 04/03/2023 8:26 AM [employer] ENGINEER Carolyn ANTHONY CHEMISTRY Performing Organization Address City/[facility]/ZIP Co de Phone Number [facility] [address] [place] [phone], [place] * VITAMIN D 25 (DEFICIENCY) (04/03/2023 8:20 AM [employer] ENGINEER) Pathologist [facility] VITAMIN D TOTAL 23.9 20.0 - 80.0 ng/mL 04/03/2023 6:54 PM [facility] Blood BLOOD SPECIMEN / Unknown Venipuncture / Unknown 04/03/2023 8:20 AM E[employer] ENGINEER 04/03/2023 8:26 AM ELECTRO OPT[employer] ENGINEER Narrative [facility] - 04/03/2023 6:54 PM E[employer]RO [employer] ENGINEER ? Vitamin D Status Deficiency: ? <20 ng/mL Insufficiency: ?20-29 ng/mL Sufficiency: ?30-80 ng/mL Possible Toxicity: ??>80 ng/mL Based on [employer] recommendations Biotin supplements may cause clinically significant interference for this test assay. ??If interference is suspected, it is strongly recommended that biotin is discontinued for at least one week prior to retesting. Carolyn ANTHONY SEND OUTS [facility] [address] [place] [address], * (ABNORMAL) COMP METABOLIC PANEL (04/03/2023 8:20 AM [facility]) Pathologist [facility] SODIUM 144 136 - 145 mmol/L 04/03/2023 6:54 PM [facility] POTASSIUM 4.1 3.5 - 5.1 mmol/L 04/03/2023 6:54 PM [facility] CHLORIDE 106 98 - 107 mmol/L 04/03/2023 6:54 PM [facility] CO2,TOTAL 24 22 - 29 mmol/L 04/03/2023 6:54 PM [facility] ANION GAP 14 5 - 18 04/03/2023 6:54 PM [facility] GLUCOSE 105(H) 70 - 99 mg/dL 04/03/2023 6:54 PM [facility] CALCIUM 9.5 8.8 - 10.2 mg/dL 04/03/2023 6:54 PM [employer]RO [employer] ENGINEER [facility] BUN 12 8 - 23 mg/dL 04/03/2023 6:54 PM [facility] CREATININE 0.69 0.50 - 0.90 mg/dL 04/03/2023 6:54 PM [facility] BUN/CREAT RATIO 17 10 - 20 6:54 PM [facility] eGFR >90 >90 mL/min/1.7 3m2 04/03/2023 6:54 PM [facility] Comment:As of 2021, eG FR is calculated by the CKD-EPI creatinine equation without race adjustment. ??eGFR can be influenced by muscle mass, exercise, and diet. ??The reported eGFR is an estimation only and is only applicable if the renal function is stable. ALBUMIN 4.6 4.0 - 4.9 g/dL 04/03/2023 6:54 PM [facility] PROTEIN,TOTAL 6.7 6.0 - 8.0 g/dL 04/03/2023 6:54 PM [facility] BILIRUBIN,TOTAL 0.3 0.0 - 1.2 mg/dL 04/03/2023 6:54 PM [facility] ALK PHOSPHATASE 96 35 - 104 IU/L 04/03/2023 6:54 PM [facility] ALT (SGPT) 55(H) 10 - 35 IU/L 04/03/2023 6:54 PM [facility] AST (SGOT) 41(H) 10 - 35 IU/L 04/03/2023 6:54 PM [facility] Blood BLOOD SPECIMEN / Unknown Venipuncture / Unknown 04/03/2023 8:20 AM ELECTRO OPT[employer] ENGINEER 04/03/2023 8:26 AM [facility] Carolyn ANTHONY CHEMISTRY [facility] [address] [place] [phone], [place] * COLONOSCOPY SCREENING (10/10/2022 12:00 AM CDT) Andrea Devi MD GI PROCEDURE ORD * XR MAMMO ALEENA BILAT DIAG (12/08/2021 2:57 PM CDT) Anatomical Region Laterality Modality BREASTS, Breast Left, Breast Right Bilateral Mammography 12/08/2021 3:39 PM CDT Impressions 12/09/2021 2:10 PM CDT No evidence of malignancy. Normal BILATERAL mammograms and targeted LEFT breast ultrasound. RECOMMENDATIONS: Annual BILATERAL screening mammography. BI-RADS Category 2: Benign Results and recommendations discussed with the patient. Dictated by: Iván Luu MD @12/08/2021 3:39:51 PM/e PATIENTS: You will also receive a letter with your examination results in an easy to read format. ??If you have questions about your results, please contact your referring provider. Narrative 12/09/2021 2:10 PM CDT As a result of the Century Cures Act, medical imaging exams and procedure reports are released immediately into your electronic medical record. ??You may view this report before your referring provider. ??If you have questions, please contact your health care provider. BILATERAL BREAST MAMMOGRAM DIGITAL DIAGNOSTIC WITH TOMOSYNTHESIS 12/08/2021 LEFT BREAST ULTRASOUND 12/08/2021 CLINICAL HISTORY: LEFT breast pain. COMPARISON: 05/24/2019, 04/26/2018. TECHNIQUE: Digital BILATERAL mammogram in 4 projections. Real-time ultrasound imaging of LEFT breast with imaging documentation. BREAST COMPOSITION: The breasts are heterogeneously dense, which may obscure small masses. ?? FINDINGS: 3D CC/MLO mammogram submitted bilaterally. Stable fibroglandular tissue. No suspicious masses or architectural distortion. No adenopathy or suspicious calcifications. Targeted LEFT breast ultrasound performed in the area of concern 7-8 o'clock 3 cm from the nipple. Normal fibroglandular tissue is present. No fibrocystic change or solid mass. Gabriella Chapman PA MAMMO * ANTI HCV [03499.2] (02/09/2016 10:00 AM ELECTRO [employer] ENGINEER) HEPATITIS C ANTIBODY Non-Reacti ve Non-Reacti ve 02/09/2016 5:42 PM ELECTRO OPTICS ENGINEER [facility] Blood BLOOD SPECIMEN / Unknown Venipuncture / Unknown 02/09/2016 10:00 AM ELECTRO OPTICS ENGINEER 02/09/2016 10:01 AM ELECTRO OPTICS ENGINEER Narrative [facility] - 02/09/2016 5:42 PM ELECTRO OPTICS ENGINEER Antibodies to HCV not detected; does not exclude the possibility of exposure to HCV. Kyra ANTHONY SEND OUTS [facility] [address] [place] [address], from Last 3 Months or Most Recently Relevant to Health Maintenance Advance Directives * Full Code (Latest Code Status on File) Date Activated Date Inactivated Comments 05/11/2010 8:46 AM 05/12/2010 2:51 AM * Full Code Date Activated Date Inactivated Comments 03/22/2010 2:54 PM 03/22/2010 10:16 PM * Full Code Date Activated Date Inactivated Comments 03/22/2010 1:40 PM 03/22/2010 2:54 PM * Full Code Date Activated Date Inactivated Comments 03/22/2010 4:20 AM 03/22/2010 1:40 PM Care Teams Meeting Coordinator Relationship Specialty Start Date End Date Kyra Perera PA [address] [place] [address] PCP - General 06/16/08 Genaro Leonard MD [address] [place] [address] Cardiology - Electrophysiology 05/30/22 Janay Nunez MD [address] [facility] [place] [place] [address] Cardiology - Interventional 09/21/22 Carolyn Pisano PA [address] [facility] [place] [address] Physician Poultry Cleaner 09/21/22 Keo Escobar MD [address] [place] [address] Sports Medicine - Family Medicine 09/21/22
[2023-06-30 15:44] LABS: RBC Urine 0-2 (0-2); WBC Urine 0-2 (0-5)
[2023-06-30] MEDS: diazePAM 5 MG/ML inj IV (16:47)
--- NOTE | 2023-06-30 17:13 | ED_ITS ---
HPI - General Adult General Chief complaint: Neuro Symptoms/Altered Deficit Stated complaint: possible stroke Time Seen by Provider: 06/30/23 14:43 History of Present Illness HPI narrative: Pt reports slurring speech that started yesterday around 12 PM. Pt states she took baby aspirin, nitro, and diazepam last night, and today has now noticed weakness in right arm and headache. Pt had holter monitor placed last Monday due to so many heart issues. 73-year-old woman presenting to the emergency department via EMS stroke code activated and I go to see her in Stab 1 upon arrival. Beginning 26 hours approximately prior to arrival here had some slurring of speech but also more of the word-finding difficulty as she describes it. This continued intermittently to some degree through the evening and then around 7:00 p.m. yesterday evening proximally 19 hours prior to arrival began to have some clumsiness and just some weakness to her right arm. Was having trouble holding a pen in her right hand. Has been struggling for quite some time with rather marked hypertension and intolerance to numerous classes of medications. Was to begin a new ARB but has not yet started it; it sounds as though she was concerned about if affecting findings on Holter monitor. Has also had symptomatic PVCs for which she had just had a Holter monitor removed. Does continue to take daily 81 mg of aspirin. However yesterday evening she took 3 tabs of this aspirin nitro and diazepam and a couple more doses today. She is otherwise having some headache. No new visual changes though does note macular degeneration. No chest pain no shortness of breath no nausea. Related Data Home Medications Medication Instructions Recorded Confirmed alprazolam 0.25 mg tablet 0.25 mg PO TID PRN 10/03/21 04/28/23 cholecalciferol (vitamin D3) 50 50 mcg PO DAILY 10/03/21 04/28/23 mcg (2,000 unit) tablet fluticasone propionate 50 1 - 2 spray intranasal BID PRN 10/03/21 04/28/23 mcg/actuation nasal spray,suspension meclizine 12.5 mg tablet 12.5 mg PO TID PRN 10/03/21 04/28/23 nitroglycerin 0.4 mg sublingual 0.4 mg sublingual Q5M PRN 10/03/21 04/28/23 tablet ondansetron 4 mg disintegrating 4 mg translingual Q6H PRN 10/03/21 04/28/23 tablet aspirin 81 mg capsule 81 mg PO DAILY 02/15/22 04/28/23 Previous Rx's Medication Instructions Recorded carvedilol 6.25 mg tablet 6.25 mg PO BID #60 tabs 05/16/23 Allergies Allergy/AdvReac Type Severity Reaction Status Date / Time Penicillins Allergy Severe Throat Verified 04/28/23 09:50 Closing amlodipine Allergy Intermediate Palpitation Verified 04/28/23 09:50 s atorvastatin Allergy Intermediate Myalgia Verified 04/28/23 09:50 chlorthalidone Allergy Intermediate Dyspnea Verified 04/28/23 09:50 clonidine Allergy Intermediate Dyspnea Verified 04/28/23 09:50 diltiazem Allergy Intermediate Anxiety Verified 04/28/23 09:50 doxazosin Allergy Intermediate Bleeding Verified 04/28/23 09:50 hydralazine Allergy Intermediate Tachycardia Verified 04/28/23 09:50 hydrochlorothiazide Allergy Intermediate Dyspnea Verified 04/28/23 09:50 labetalol Allergy Intermediate Dyspnea Verified 04/28/23 09:50 lisinopril Allergy Intermediate Chest Pain Verified 04/28/23 09:50 lobster Allergy Intermediate Verified 04/28/23 13:37 lorazepam [From Ativan] Allergy Intermediate Depression Verified 04/28/23 09:50 losartan Allergy Intermediate Dyspnea Verified 04/28/23 09:50 methyldopa Allergy Intermediate Rash Verified 04/28/23 09:50 metoprolol Allergy Intermediate Dyspnea Verified 04/28/23 09:50 metronidazole [From Flagyl] Allergy Intermediate Hives Verified 04/28/23 09:50 milk Allergy Intermediate Verified 04/28/23 13:37 rosuvastatin Allergy Intermediate Myalgia Verified 04/28/23 09:50 verapamil Allergy Intermediate Dyspnea Verified 04/28/23 09:50 morphine Allergy Mild Hives Verified 04/28/23 09:50 Sulfa (Sulfonamide Allergy Mild Hives Verified 04/28/23 09:50 Antibiotics) acetaminophen Allergy Unknown Verified 04/28/23 13:37 lactose Allergy Unknown Verified 04/28/23 13:37 latex Allergy Unknown Verified 04/28/23 13:37 hydrocodone AdvReac Intermediate Nausea/Vomi Verified 04/28/23 09:50 ting Review of Systems Status of ROS: Reports: 6 or more systems reviewed and unremarkable except as noted in History and below [facility] Medical History Viral infection ?B34.9 - Viral infection, unspecified (ICD-10) Upper back pain ?M54.9 - Dorsalgia, unspecified (ICD-10) Tinnitus ?H93.19 - Tinnitus, unspecified ear (ICD-10) Obstructive sleep apnea treated with continuous positive airway pressure (CPAP) ?G47.33 - Obstructive sleep apnea (adult) (pediatric) (ICD-10) Headache ?R51.9 - Headache, unspecified (ICD-10) Excessive daytime sleepiness ?G47.19 - Other hypersomnia (ICD-10) Encounter for follow-up ?Z09 - Encounter for follow-up examination after completed treatment for conditions other than malignant neoplasm (ICD-10) Disorder of paranasal sinus ?J34.9 - Unspecified disorder of nose and nasal sinuses (ICD-10) Difficulty sleeping ?G47.9 - Sleep disorder, unspecified (ICD-10) Chest pain ?R07.9 - Chest pain, unspecified (ICD-10) Abdominal pain ?R10.9 - Unspecified abdominal pain (ICD-10) Surgical History Hx of removal of ovary H/O section ?Z98.891 - History of uterine scar from previous surgery (ICD-10) H/O resection of rib ?Z98.890 - Other specified postprocedural states (ICD-10) History of tonsillectomy ?Z90.89 - Acquired absence of other organs (ICD-10) Hx of cholecystectomy ?Z90.49 - Acquired absence of other specified parts of digestive tract (ICD- 10) History of appendectomy ?Z90.49 - Acquired absence of other specified parts of digestive tract (ICD- 10) Social History Smoking Status: Never smoker Do you use any of these nicotine containing products: None Second hand tobacco smoke exposure: No How often do you have a drink containing alcohol: never AUDIT-C Alcohol total score: 0 Non-prescribed substance use: denies use service: No Exam Narrative: Exam Narrative: I see her initially in stab 1 and accompany her to imaging to CT scan. She is fully alert GCS of 15. Pupils are briskly reactive and equal. Cranial nerves 2-12 look to be intact with full range of motion to EOMs. Appears a little bit to have some downgoing of the right side of her mouth but strength with effort is clearly intact. She appears to be speaking easily occassionally maybe some very subtle slurring of her words. Not seem to be having trouble with word finding. Only other deficit appears to be the right arm which drips but does not hit the bed. On initial assessment would assess NIH stroke scale of 1-2. Heart in regular rate and rhythm without murmur rub or gallop. Lungs are clear. She is sore to palpation in the right periscapular/rhomboid musculature.. Neck is supple. Is well-perfused peripherally extremities are without edema. Initially did note rather elevated blood pressure which is not entirely atypical for Ms. Restrepo. Const: Vital Signs, click to edit/add: Vital Signs - 24 hr 06/30/23 14:31 06/30/23 15:24 06/30/23 15:26 Temperature 98.5 F Pulse Rate 77 77 Pulse Rate [Pulse Oximeter] 84 Respiratory Rate 18 Blood Pressure 218/114 H Blood Pressure [Le ft Upper Arm] 198/117 H Pulse Oximetry 94 94 95 Oxygen Delivery Me thod Room Air 06/30/23 15:30 06/30/23 15:33 06/30/23 15:34 Temperature Pulse Rate 76 73 76 Pulse Rate [Pulse Oximeter] Respiratory Rate Blood Pressure 215/107 H Blood Pressure [Le ft Upper Arm] Pulse Oximetry 94 93 95 Oxygen Delivery Nh thod 06/30/23 15:45 06/30/23 15:47 06/30/23 16:01 Temperature Pulse Rate 84 81 87 Pulse Rate [Pulse Oximeter] Respiratory Rate Blood Pressure 224/127 H Blood Pressure [Le ft Upper Arm] Pulse Oximetry 95 94 95 Oxygen Delivery Nh thod 06/30/23 16:46 06/30/23 16:48 06/30/23 17:00 Temperature Pulse Rate 83 79 84 Pulse Rate [Pulse Oximeter] Respiratory Rate Blood Pressure 200/124 H Blood Pressure [Le ft Upper Arm] Pulse Oximetry 83 L 94 93 Oxygen Delivery Nh thod 06/30/23 17:02 06/30/23 17:15 06/30/23 17:32 Temperature Pulse Rate 87 86 Pulse Rate [Pulse Oximeter] Respiratory Rate Blood Pressure 201/120 H 224/120 H Blood Pressure [Le ft Upper Arm] Pulse Oximetry 92 94 Oxygen Delivery Me thod Documenting provider has reviewed patient's vital signs: yes Course Vital Signs Vital signs: Initial Vital Signs Temperature 98.5 F 06/30/23 14:31 Temperature Source Temporal Artery Scan 06/30/23 14:31 Pulse Rate 84 06/30/23 14:31 Respiratory Rate 18 06/30/23 14:31 Blood Pressure 198/117 H 06/30/23 14:31 Blood Pressure Mean 144 H 06/30/23 14:31 Blood Pressure Position Supine 06/30/23 14:31 Pulse Oximetry 94 06/30/23 14:31 Oxygen Delivery Method Room Air 06/30/23 14:31 Vital Signs Temperature 98.5 F 06/30/23 14:31 Pulse Rate 84 06/30/23 14:31 Respiratory Rate 18 06/30/23 14:31 Blood Pressure 198/117 H 06/30/23 14:31 Pulse Oximetry 94 06/30/23 14:31 Oxygen Delivery Method Room Air 06/30/23 14:31 Temperature 98.5 F 06/30/23 14:31 Pulse Rate 86 06/30/23 17:15 Respiratory Rate 18 06/30/23 14:31 Blood Pressure 224/120 H 06/30/23 17:32 Pulse Oximetry 94 06/30/23 17:15 Oxygen Delivery Method Room Air 06/30/23 14:31 Medications Administered Medications: Discontinued Medications Generic Name Dose Route Start Last Admin Trade Name Freq PRN Reason Stop Dose Admin Clopidogrel Bisulfate 300 mg 06/30/23 17:41 06/30/23 17:49 Clopidogrel 300 Mg Tablet PO 06/30/23 17:42 300 mg ONCE ONE Administration Diazepam 5 mg 06/30/23 16:14 06/30/23 16:47 Diazepam 5 Mg/Ml Inj IV 06/30/23 16:15 5 mg ONCE ONE Administration Sodium Chloride 1,000 mls @ 1,000 mls/hr 06/30/23 14:45 06/30/23 17:00 0.9 % Sodium Chloride 1000 Ml IV 06/30/23 15:44 Infused .Q1H ONE Infusion Medical Decision Making MDM Narrative Medical decision making narrative: Stroke Neuro was contacted directly and I spoke to them before repeat assessment. Following CT imaging is placed on him coder and initiated on IV fluid bolus of normal saline. I reviewed head CT without evidence of acute abnormality, no bleed. Proceeded with CTA of head and neck. Discussed CTA head and neck with radiology. Some evidence of fibromuscular dysplasia noted and retrograde flow in vertebral artery but no large vessel occl usion noted. Stroke Neuro interviewed patient pending MRI Considering history of rather high blood pressures would have initial concern of hemorrhagic stroke or encephalopathy. She does not have however seemed globally affected. Due to extensive duration of onset and mild symptoms, continued to monitor during time in the emergency department with subtly waxing and waning strength in the right arm. Persisted though. Spoke with Radiology about basic brain MRI result noted as below and discussed with Stroke Neuro. Recommendations for aspirin and Plavix aspirin load, admission and further cardiovascular evaluation then continuing on low-dose aspirin and 75 mg of Plavix. Check lipids. Permissive hypertension though in this patient goals might be a little different. Recommendations by Stroke Neuro are to keep blood pressures below 220/120 I would consider use of nitro drip here. Will be contacting hospitalist for admission Study:?MRI-Head W/O-06/30/2023 4:48:04 PM Ordering Physician:IVÁN RITTER Final Report: Indication: Expressive aphasia. Technique: Multisequence multiplanar MRI of the brain without the use of intravenous contrast. Comparison: MRI brain dated 05/07/2019. Findings: New diffusion restriction in the left centrum semiovale and posterior putamen consistent with acute ischemia. No significant associated T2/FLAIR hyperintensity. Similar scattered foci of T2 prolongation within the supratentorial white matter typical of chronic small vessel ischemic changes. Similar mild diffuse parenchymal volume loss without ventricular obstruction. Flow voids of the larger intracranial arteries are preserved. Bone marrow signal intensity of the calvarium is within normal limits. The orbits are unremarkable. The paranasal sinuses and mastoid air cells are predominantly clear. Impression: 1. New diffusion restriction within the left centrum semiovale and posterior putamen consistent with acute ischemia. Lack of associated T2/FLAIR hyperintensity suggests time course of less than 6 hours. 2. Similar mild diffuse parenchymal volume loss and chronic small-vessel ischemic changes. Findings were discussed with Dr. Brito on 06/30/2023 at 5:01 p.m.. Have discussed with our hospitalist who is thankfully accepting admission Medical Records Medical records reviewed: Yes I reviewed the patient's medical records Lab Data Lab results reviewed: Yes I reviewed the patient's lab results Labs: Lab Results 06/30/23 06/30/23 Range/Units 14:45 15:20 WBC 5.60 (4.50-11.00) K/uL RBC 5.63 H (4.00-5.20) m/uL Hgb 16.4 H (12.0-16.0) gm/dL Hct 48.6 (33.0-51.0) % MCV 86 (80-100) fL MCH 29 (26-34) pg MCHC 34 (32-36) gm/dL RDW Coeff of Jaylen 12.8 (11.5-15.5) % Plt Count 212 (140-440) K/uL Neut % (Auto) 52.3 (42.0-72.0) % Lymph % (Auto) 34.8 (20-44) % [place] % (Auto) 9.1 (0.0-11.0) % Eos % (Auto) 2.5 (0.0-7.0) % Baso % (Auto) 0.4 (0.0-3.0) % Neut # (Auto) 2.93 (1.7-7.0) K/uL Lymph # (Auto) 1.95 (0.90-2.90) K/uL [place] # (Auto) 0.50 (0.00-0.90) K/UL Eos # (Auto) 0.14 (0.00-0.50) K/uL Baso # (Auto) 0.02 (0.00-0.30) K/uL Abs Immat Gran (auto) 0.05 (0.00-0.30) K/uL Imm/Tot Granulo (auto) 0.9 % INR 0.92 (0.91-1.10) APTT 33 (23-33) Seconds Sodium 140 (135-149) mmol/L Potassium 3.5 L (3.6-5.1) mmol/L Chloride 110 (96-114) mmol/L Carbon Dioxide 27 (20-32) mmol/L Anion Gap 3 L (7-15) mEq/L BUN 15 (7-30) mg/dL Creatinine 0.7 (0.5-1.5) mg/dL Estimated Creat Clear 39.63 Estimated GFR 91 ml/min Glucose 108 (60-115) mg/dL Calcium 9.3 (8.4-10.6) mg/dL Troponin I < 0.01 L (0.01-0.04) ng/mL Urine Color Yellow (Yellow) Urine Appearance Clear (Clear) Urine pH 7.5 (5.0-8.5) Ur Specific Skipwith 1.015 (1.000-1.030) Urine Protein Negative (Negative) Urine Glucose (UA) Negative (Negative) Urine Ketones Negative (Negative) Urine Blood Negative (Negative) Urine Nitrite Negative (Negative) Urine Bilirubin Negative (Negative) Urine Urobilinogen 0.2 (0.2-1.0) Ur Leukocyte Esterase Negative (Negative) Urine RBC 0-2 (0-2) Urine WBC 0-2 (0-5) Ur Squamous Epith Cells None (None-Few) Urine Bacteria None (None) POC Troponin I 0.00 L (0.01-0.04) ng/ml ECG Data Attestation: I personally reviewed and interpreted this ECG as follows: (Normal sinus rhythm at a rate of 83. No acute ischemic changes ) Critical Care Time Critical Care Time Critical Care Time: Yes Attestation: The patient required my highest level preparedness to intervene emergently and I personally spent this critical care time directly and personally managing the patient. This critical care time included: Obtaining a history; Examining the patient; Pulse oximetry; Ordering and reviewing of studies; Arranging urgent treatment with development of a management plan; Evaluation of patients response to treatment; Frequent reassessment discussions with other providers. This critical care time was performed to assess and manage the high probability of imminent life-threatening deterioration that could result in multiorgan failure. It was exclusive of separate billable procedures and treating other patients and teaching time. Total Critical Care Time in Minutes: 70 Discharge Plan Discharge Clinical Impression: Ischemic cerebrovascular accident (CVA), Hypertension Patient Disposition: Admitted As Observation
[2023-06-30] MEDS: CLOPIDOGREL 300 MG TABLET PO (17:49)
--- NOTE | 2023-06-30 18:08 | P.IMHP_ITS ---
Hospitalist- H&P: HPI History of Present Illness Date Seen: 06/30/23 Chief complaint: possible stroke Narrative: Miya Restrepo is a 73 year old female admitted through the emergency department with a 1 day history of right hand clumsiness and weakness and difficulty with word finding and expressive aphasia. Symptoms started around noon yesterday. They have been somewhat fluctuating over the last day. She also noted a little bit of numbness around her mouth. She thinks her speech is a little better today and she is able to give her history today without much difficulty. In the emergency department she had CT scan of the head showing mild chronic microvascular ischemic changes and CT angiogram of the head and neck showed no significant large vessel occlusion or stenosis. MRI of the brain showed new diffusion restriction within the left centrum semiovale and posterior putamen consistent with acute ischemia. Radiologist felt this was ischemia that occurred within the last 6 hours. She was seen by Stroke Neurology. They recommended therapy, antiplatelets, assessment of lipids and blood sugar and echocardiogram. Permissive hypertension and blood pressure control also reviewed. She had an echocardiogram performed on May 03 which was unremarkable with an ejection fraction of 62% with no significant valvular disease. Hemoglobin A1c in March was 5.9 and lipid profile in March 2023 was fairly abnormal with a total cholesterol 268, triglycerides 232, HDL 58 and LDL of 164. Patient has multiple drug intolerances to blood pressure medicines and statins. I reviewed these in detail with the patient. She has been working for many years with Cardiology and others to find blood pressure medicines she can tolerate. Last week she saw her paper bag press operator who recommended cautiously introducing telmisartan 10 mg daily and increase to 10 mg b.i.d. if she can tolerate it and metoprolol tartrate 6.25 mg b.i.d.. She did not follow these instructions because she was worried about side effects. She tells me she gets increased palpitations and short of breath from beta-blockers. She is open to trying them again while she is in the hospital. She is intolerant of all statins and is not interested in trying them again. Statins cause her legs to be weak and she has fallen down because of statin therapy. Review of Systems Narrative: She reports that she has generally been feeling well except for the last day with symptoms as noted above. [facility] Medical History (Updated 06/30/23 @ 19:43 by Junito Ro MD) Frequent PVCs ?I49.3 - Ventricular premature depolarization (ICD-10) Anxiety ?F41.9 - Anxiety disorder, unspecified (ICD-10) Statin intolerance ?Z78.9 - Other specified health status (ICD-10) Hypertension with intolerance to multiple antihypertensive drugs ?I10 - Essential (primary) hypertension (ICD-10) Viral infection ?B34.9 - Viral infection, unspecified (ICD-10) Upper back pain ?M54.9 - Dorsalgia, unspecified (ICD-10) Tinnitus ?H93.19 - Tinnitus, unspecified ear (ICD-10) Obstructive sleep apnea treated with continuous positive airway pressure (CPAP) ?G47.33 - Obstructive sleep apnea (adult) (pediatric) (ICD-10) Headache ?R51.9 - Headache, unspecified (ICD-10) Excessive daytime sleepiness ?G47.19 - Other hypersomnia (ICD-10) Encounter for follow-up ?Z09 - Encounter for follow-up examination after completed treatment for conditions other than malignant neoplasm (ICD-10) Disorder of paranasal sinus ?J34.9 - Unspecified disorder of nose and nasal sinuses (ICD-10) Difficulty sleeping ?G47.9 - Sleep disorder, unspecified (ICD-10) Chest pain ?R07.9 - Chest pain, unspecified (ICD-10) Abdominal pain ?R10.9 - Unspecified abdominal pain (ICD-10) Surgical History Hx of removal of ovary H/O section ?Z98.891 - History of uterine scar from previous surgery (ICD-10) H/O resection of rib ?Z98.890 - Other specified postprocedural states (ICD-10) History of tonsillectomy ?Z90.89 - Acquired absence of other organs (ICD-10) Hx of cholecystectomy ?Z90.49 - Acquired absence of other specified parts of digestive tract (ICD- 10) History of appendectomy ?Z90.49 - Acquired absence of other specified parts of digestive tract (ICD- 10) Family History (Updated 06/30/23 @ 19:33 by Junito Ro MD) Brother Prostate cancer Heart disease Sister Lung cancer Social History (Updated 06/30/23 @ 19:34 by Junito Ro MD) Narrative: She lives in [place] Accompanied today by her son David. She does not smoke. She does not drink alcohol. What is your current living situation?: I presently have a place to live Problems where you live: no known problems Problems where you live details: none In the past 12 months, utilities in danger of being shut off: no In past 12 months, lack of transportation kept you from medical appts, meetings, work, or getting things needed for daily living: no In the past 12 mos, have been you worried that your food would run out before you had money to buy more?: never true In the past 12 mos, the food you bought just didn't last and you didn't have money to buy more?: never true Highest level of school completed/degree received: some college, no degree Smoking Status: Never smoker Do you use any of these nicotine containing products: None Second hand tobacco smoke exposure: No How often do you have a drink containing alcohol: never AUDIT-C Alcohol total score: 0 Non-prescribed substance use: denies use Caffeine: No How often does anyone, including family, friends and others, physically hurt you : never How often does anyone, including family, friends and others, insult or talk down to you: never How often does anyone, including family, friends and others, threaten you with harm: never How often does anyone, including family, friends and others, scream or curse at you: never service: No Meds Home Medications and Allergies Home Medications Medication Instructions Recorded Confirmed Type alprazolam 0.25 mg tablet 0.25 mg PO TID PRN 10/03/21 06/30/23 History cholecalciferol (vitamin D3) 50 50 mcg PO DAILY 10/03/21 06/30/23 History mcg (2,000 unit) tablet fluticasone propionate 50 1 - 2 spray intranasal BID PRN 10/03/21 04/28/23 History mcg/actuation nasal spray,suspension meclizine 12.5 mg tablet 12.5 mg PO TID PRN 10/03/21 04/28/23 History nitroglycerin 0.4 mg sublingual 0.4 mg sublingual Q5M PRN 10/03/21 04/28/23 History tablet ondansetron 4 mg disintegrating 4 mg translingual Q6H PRN 10/03/21 04/28/23 History tablet aspirin 81 mg capsule 81 mg PO DAILY 02/15/22 06/30/23 History metoprolol tartrate 25 mg tablet 6.25 mg PO BID 06/30/23 06/30/23 History telmisartan 20 mg tablet 10 mg PO HS 06/30/23 06/30/23 History Home Medication Comments: One week ago was prescribed telmisartan and metoprolol but has only taken a couple doses of each. Allergies Allergy/AdvReac Type Severity Reaction Status Date / Time Penicillins Allergy Severe Throat Verified 04/28/23 09:50 Closing amlodipine Allergy Intermediate Palpitation Verified 04/28/23 09:50 s atorvastatin Allergy Intermediate Myalgia Verified 04/28/23 09:50 chlorthalidone Allergy Intermediate Dyspnea Verified 04/28/23 09:50 clonidine Allergy Intermediate Dyspnea Verified 04/28/23 09:50 diltiazem Allergy Intermediate Anxiety Verified 04/28/23 09:50 doxazosin Allergy Intermediate Bleeding Verified 04/28/23 09:50 hydralazine Allergy Intermediate Tachycardia Verified 04/28/23 09:50 hydrochlorothiazide Allergy Intermediate Dyspnea Verified 04/28/23 09:50 labetalol Allergy Intermediate Dyspnea Verified 04/28/23 09:50 lisinopril Allergy Intermediate Chest Pain Verified 04/28/23 09:50 lobster Allergy Intermediate Verified 04/28/23 13:37 lorazepam [From Ativan] Allergy Intermediate Depression Verified 04/28/23 09:50 losartan Allergy Intermediate Dyspnea Verified 04/28/23 09:50 methyldopa Allergy Intermediate Rash Verified 04/28/23 09:50 metoprolol Allergy Intermediate Dyspnea Verified 04/28/23 09:50 metronidazole [From Flagyl] Allergy Intermediate Hives Verified 04/28/23 09:50 milk Allergy Intermediate Verified 04/28/23 13:37 rosuvastatin Allergy Intermediate Myalgia Verified 04/28/23 09:50 verapamil Allergy Intermediate Dyspnea Verified 04/28/23 09:50 morphine Allergy Mild Hives Verified 04/28/23 09:50 Sulfa (Sulfonamide Allergy Mild Hives Verified 04/28/23 09:50 Antibiotics) acetaminophen Allergy Unknown Verified 04/28/23 13:37 lactose Allergy Unknown Verified 04/28/23 13:37 latex Allergy Unknown Verified 04/28/23 13:37 hydrocodone AdvReac Intermediate Nausea/Vomi Verified 04/28/23 09:50 ting Exam Narrative: Exam Narrative: She is alert and in no distress. Speech is relatively fluent with no significant word-finding difficulties. Head is without trauma. Eyes are normal. Pupils are equal round reactive to light. Extraocular movements are full. Visual joyce are intact. There is no facial asymmetry. Oropharynx is normal. Small airway. Neck is supple without mass or adenopathy. No jugular venous distension. Respirations are clear to auscultation. Cardiovascular: S1, S2, regular rate and rhythm. No murmur gallop or rub. Abdomen: Bowel sounds active. Abdomen is soft without tenderness or mass. Upper extremities with 5/5 strength in shoulder flexion extension elbow flexion extension. She has 5- over 5 strength in finger extension and whizzer operator strength on the right c ompared to the left 5/5 on the left. Fifth ioiplw-ebwe-wzjubb is bilaterally accurate. Rapid finger movements on the right are slower than on the left. Lower extremity strength is 5/5 in hip flexion, knee flexion extension, ankle dorsiflexion plantar flexion and great toes dorsiflexion bilaterally. Heel-andrews is symmetric. Intact pedal pulses. Intact sensation all 4 extremities. Const: Vital Signs, click to edit/add: Vital Signs - 24 hr 06/30/23 14:31 06/30/23 15:24 06/30/23 15:26 Temperature 98.5 F Pulse Rate 77 77 Pulse Rate [Pulse Oximeter] 84 Respiratory Rate 18 Blood Pressure 218/114 H Blood Pressure [Le ft Upper Arm] 198/117 H Pulse Oximetry 94 94 95 Oxygen Delivery Me thod Room Air 06/30/23 15:30 06/30/23 15:33 06/30/23 15:34 Temperature Pulse Rate 76 73 76 Pulse Rate [Pulse Oximeter] Respiratory Rate Blood Pressure 215/107 H Blood Pressure [Le ft Upper Arm] Pulse Oximetry 94 93 95 Oxygen Delivery Ks thod 06/30/23 15:45 06/30/23 15:47 06/30/23 16:01 Temperature Pulse Rate 84 81 87 Pulse Rate [Pulse Oximeter] Respiratory Rate Blood Pressure 224/127 H Blood Pressure [Le ft Upper Arm] Pulse Oximetry 95 94 95 Oxygen Delivery Ks thod 06/30/23 16:46 06/30/23 16:48 06/30/23 17:00 Temperature Pulse Rate 83 79 84 Pulse Rate [Pulse Oximeter] Respiratory Rate Blood Pressure 200/124 H Blood Pressure [Le ft Upper Arm] Pulse Oximetry 83 L 94 93 Oxygen Delivery Me thod 06/30/23 17:02 06/30/23 17:15 06/30/23 17:32 Temperature Pulse Rate 87 86 Pulse Rate [Pulse Oximeter] Respiratory Rate Blood Pressure 201/120 H 224/120 H Blood Pressure [Le ft Upper Arm] Pulse Oximetry 92 94 Oxygen Delivery Me thod Documenting provider has reviewed patient's vital signs: yes Hospitalist - H&P: Result Labs Labs: Short CBC 06/30/23 Range/Units 14:45 WBC 5.60 (4.50-11.00) K/uL Hgb 16.4 H (12.0-16.0) gm/dL Hct 48.6 (33.0-51.0) % Plt Count 212 (140-440) K/uL BMP 06/30/23 14:45 Sodium 140 Potassium 3.5 L Chloride 110 Carbon Dioxide 27 BUN 15 Creatinine 0.7 Glucose 108 Calcium 9.3 Cardiac Enzymes 06/30/23 Range/Units 14:45 Troponin I < 0.01 L (0.01-0.04) ng/mL Urine 06/30/23 Range/Units 15:20 Urine Color Yellow (Yellow) Urine Appearance Clear (Clear) Urine pH 7.5 (5.0-8.5) Ur Specific [place] 1.015 (1.000-1.030) Urine Protein Negative (Negative) Urine Glucose (UA) Negative (Negative) Imaging Echo: Radiologist's impression: Echocardiogram from 05/03/2023: Final Impressions: 1. Normal left ventricular size, moderately increased wall thickness, normal global systolic function, calculated EF of 62 %. 2. Right ventricular cavity size is normal, global systolic RV function is normal. 3. The aortic valve is trileaflet and sclerotic, no stenosis and mild regurgitation. 4. The mitral valve is normal, mild mitral regurgitation. MR Brain: Radiologist's impression: Study:?MRI-Head W/O-06/30/2023 4:48:04 PM Ordering Physician:MILTON RITTER Final Report: Indication: Expressive aphasia. Technique: Multisequence multiplanar MRI of the brain without the use of intravenous contrast. Comparison: MRI brain dated 05/07/2019. Findings: New diffusion restriction in the left centrum semiovale and posterior putamen consistent with acute ischemia. No significant associated T2/FLAIR hyperintensity. Similar scattered foci of T2 prolongation within the supratentorial white matter typical of chronic small vessel ischemic changes. Similar mild diffuse parenchymal volume loss without ventricular obstruction. Flow voids of the larger intracranial arteries are preserved. Bone marrow signal intensity of the calvarium is within normal limits. The orbits are unremarkable. The paranasal sinuses and mastoid air cells are predominantly clear. Impression: 1. New diffusion restriction within the left centrum semiovale and posterior putamen consistent with acute ischemia. Lack of associated T2/FLAIR hyperintensity suggests time course of less than 6 hours. 2. Similar mild diffuse parenchymal volume loss and chronic small-vessel ischemic changes. CT- Other: Radiologist's impression: CT angio of the head: CLINICAL HISTORY: Patient with focal neurological deficits. TECHNIQUE: Standard helical CT image acquisition through the intracranial circulation following intravenous administration of contrast material with bolus tracking. 2D and 3D MIP images for post-processing were performed and interpreted on an independent workstation and 3D images were permanently archived. COMPARISON: CT same day. FINDINGS: There is no cerebral aneurysm or large vessel occlusion. There is mild to moderate scattered intracranial atherosclerosis. The non-dominant left vertebral artery terminates in the PICA. The visualized venous structures are patent. IMPRESSION: 1. No large vessel occlusion. 2. Mild to moderate scattered intracranial atherosclerosis. CT angiogram of the neck: CLINICAL HISTORY: Patient with right arm weakness. TECHNIQUE: Standard helical CT image acquisition of the neck up to the skull base after bolus intravenous contrast enhancement. 2D and 3D MIP images for post-processing were performed and interpreted on an independent workstation and 3D images were permanently archived. COMPARISON: CT same day. FINDINGS: The origins of the great vessels from the aortic arch are patent. The origin of the right vertebral artery is patent. The origin of the left vertebral artery is patent. The common carotid arteries are patent. There is a mild (<50%) stenosis at the origin of the right internal carotid artery by NASCET criteria. This is caused by calcified and noncalcified plaque with a <2mm residual lumen. There is a mild (<50%) stenosis at the origin of the left internal carotid artery by NASCET criteria. This is caused by calcified and noncalcified plaque with a <2mm residual lumen. The rest of the cervical segments of the internal carotid arteries are patent up to the skull base. The right vertebral artery is dominant. The cervical segments of the vertebral arteries are patent up to the skull base. The visualized lung apices are unremarkable. The thyroid gland is unremarkable. The soft tissues of the neck are unremarkable. There are degenerative changes in the cervical spine. IMPRESSION: 1. Mild (<50%) stenosis at the origin of the right internal carotid artery by NASCET criteria. This is caused by calcified and noncalcified plaque with a <2mm residual lumen. 2. Mild (<50%) stenosis at the origin of the left internal carotid artery by NASCET criteria. This is caused by calcified and noncalcified plaque with a <2mm residual lumen. PET CT: Radiologist's impression: PET CT cardiac perfusion on 01/20/2023: IMPRESSION 1. Myocardial perfusion was normal. 2. Left ventricular cavity size was normal (resting EDV 65 ml). 3. Overall left ventricular systolic function was normal without wall motion abnormalities. The stress LVEF was visually estimated to be 75%. 4. Adequate pharmacologic stress test with regadenoson. 5. The pharmacologic stress ECG was negative for ischemia. 6. Compared to prior study of 10/17/19, there is no significant change. 7. Stress myocardial blood flow was normal at 3.8 ml/min/g and myocardial flow reserve was normal at 2.4. Assessment and Plan Assessment and plan (1) Ischemic cerebrovascular accident (CVA): Problem comment: 06/30/2023 she has had an acute ischemic infarct in the left centrum semiovale and posterior putamen. Primary symptoms are expressive aphasia and right upper extremity apraxia. Antiplatelet therapy. Before scheduling further outpatient cardiac monitoring consider getting results of recent Zio patch monitoring. Status: Acute (2) Hypertension with intolerance to multiple antihypertensive drugs: Problem comment: Patient reports intolerance to all classes of blood pressure medications. City Auditor is considering renal denervation surgery for this. Permissive hypertension post stroke to keep blood pressure below to 220/120 with a gradual introduction of blood pressure medicines to achieve normotension over the next few weeks. Given longstanding history of medication intolerance, blood pressure control is unlikely with medications. Status: Acute (3) Statin intolerance: Problem comment: Patient reports leg weakness and falling down as a side effect of statins. For treatment of stroke patient should have aggressive lipid-lowering therapy. Patient is reluctant to attempt statin therapy. Outpatient follow-up to review options. Status: Acute (4) Obstructive sleep apnea treated with continuous positive airway pressure (CPAP): Problem comment: Referred for sleep study. Patient has sleep apnea. She had a CPAP that was recalled. She quit using it because of the recall. Pending further evaluation. Status: Acute (5) Frequent PVCs: Problem comment: Patient is aware of frequent PVCs. Intolerant of beta-blockers to suppress PVCs. Willing to give a trial of metoprolol again Status: Acute (6) Anxiety: Problem comment: Manages her anxiety with p.r.n. diazepam and p.r.n. alprazolam. Likely contributing to her reports of medication intolerance. Status: Acute Plan Patient is admitted to the hospital for evaluation management of ischemic stroke causing left-sided apraxia and expressive aphasia clinically already a little better today. Continue discuss management of risk factors such as hypertension hyperlipidemia with medication side effects verses risk of recurrent stroke. Total Time Spent Total Time Spent: Total time spent today is 90 minutes, 60 minutes in coordination of care discuss ing with patient and other providers ongoing evaluation management of stroke, medication side effects, hypertension hyperlipidemia.
[2023-06-30] MEDS: ASPIRIN 81 MG TAB.CHEW 324 MG PO (18:10)
[2023-06-30] MEDS: TELMISARTAN 20 MG 10 EACH PO (22:13)
[2023-06-30] MEDS: SODIUM CHLORIDE 0.9 % (FLUSH) 10 ML SYRINGE 5 ML IVF (22:14)
[2023-06-30] MEDS: ALPRAZolam 0.25 MG TABLET PO (22:25)
[2023-07-01] VITALS (9 sets, daily range): BP systolic 168–209; BP diastolic 98–117; PULSE 73–102; RESP 16–20; TEMP 36.7–37.2; O2SAT 91–96
--- NOTE | 2023-07-01 06:38 | PC.NURSE ---
End of shift -Pt alert, oriented, cooperative. Up with 2 assist, walker/gait belt. Pt reported feeling ?weak? and experiencing dizziness with standing. Pt observed to sway and lose balance to R side while ambulating. Pt expressed frustration at weakness of R arm and R leg. RN provided education and support regarding unilateral weakness and the benefits of rest and therapies for recovery. Pt challenged herself physically using her R arm and hand to brush teeth, reach for paper towels, and pull up pants. Pt continued to voice frustration and worry stating she ?hopes it isn?t like this forever?. RN continued to provide emotional support. Pt continent of bowel and bladder, tolerating RA, regular diet/fluids. No difficulty with swallowing noted. Pt reported difficulty finding words, R sided droop noted by RN in pt mouth/smile. Pt appears to be resting comfortably at the end of shift. ?
--- NOTE | 2023-07-01 08:04 | CT_ITS ---
Patient: JOSE CHOW Facility:?[facility] Patient ID:?[id number] Site Patient ID:?[id number]. Site :?[id number] Study:?CT-Head WO STROKE PROTOCOL-07/01/2023 8:41:58 AM Ordering Physician:FELISHA GILL Final Report: INDICATION: INCREASING RT ARM WEAKNESS, SLURRED WORDS TECHNIQUE: CT head without contrast. COMPARISON: MRI brain June 30, 2023. FINDINGS: CSF spaces: Within normal limits for age. Brain parenchyma and extra-axial spaces: Ill-defined hypodensities within the left centrum semiovale and posterior putamen consistent with acute ischemia better visualized on prior MRI. No evidence of hemorrhagic transformation. There are nonspecific low attenuation white matter changes consistent with chronic microvascular disease. No sign of mass effect, hemorrhage, or midline shift. No extra-axial fluid collection. Skull base and calvarium: The visualized paranasal sinuses and mastoid air cells demonstrate no acute or significant findings. The visualized orbits are grossly unremarkable. No skull fractures. IMPRESSION: Ill-defined hypodensities within the left centrum semiovale and posterior putamen consistent with acute ischemia better visualized on prior MRI. No evidence of hemorrhagic transformation. Please note that all CT scans at this facility use dose modulation, iterative reconstruction, and/or weight-based dosing when appropriate to reduce radiation dose to as low as reasonably achievable. Dictated by Terrance Molina MD @ 07/01/2023 9:00:24 AM Signed by:?Terrance Molina MD @07/01/2023 9:00:24 AM (Electronic Signature)
--- NOTE | 2023-07-01 08:21 | PC.NURSE ---
At 0800 I was notified by Delvin PEDRAZA that the patient was having worsening R facial drop and R arm weakness. Marilyn Connor Hospitalist was present at the time of my assessment. Neurological assessment: The patient was alert and orientated, GCS 15. Slurred speech was present. The patient reported that this was new. R arm was noted to be severely weak, almost flaccid. A R arm drift was also noted. The finger to thumb coordination test with the R hand is slow and deliberate with some lack of coordination. RLE was noted with normal strength when compared to the LLE. No nystagmus present or visual field cut. Sensation was intact in BLE. The patient's primary RN-Kaye was in another patient room at the time and after my assessment I notified her of my assessment findings and the new orders per Nikolas for a repeat head/neck CT and repeat head/ neck angiogram. The patient was then brought down to CT MIREYA. Nancy HERNANDEZ BSN
--- NOTE | 2023-07-01 08:23 | CT_ITS ---
Patient: JOSE CHOW Facility:?[facility] Patient ID:?[id number] Site Patient ID:?[id number]. Site :?[id number] Study:?CT-Head Angio W/IV-07/01/2023 9:09:36 AM Ordering Physician:MARVIN Final Report: DATE: 07/01/2023 CLINICAL HISTORY: Patient with focal neurological deficits. TECHNIQUE: Standard helical CT image acquisition through the intracranial circulation following intravenous administration of contrast material with bolus tracking. 2D and 3D MIP images for post-processing were performed and interpreted on an independent workstation and 3D images were permanently archived. COMPARISON: CT same day. FINDINGS: There is no cerebral aneurysm or large vessel occlusion. There is intracranial atherosclerosis with multifocal severe stenosis in the right M2 segments, mild to moderate stenoses in the M1 segments bilaterally and mild stenoses in the basilar and posterior cerebral arteries bilaterally. The right internal carotid artery is normal. The right anterior cerebral artery and its branches are normal. The left internal carotid artery is normal. The left anterior cerebral artery and its branches are normal. The right vertebral artery is dominant. The visualized venous structures are patent. IMPRESSION: 1. No cerebral aneurysm or large vessel occlusion. 2. Intracranial atherosclerosis with multifocal severe stenosis in the right M2 segments, mild to moderate stenoses in the M1 segments bilaterally and mild stenoses in the basilar and posterior cerebral arteries bilaterally. Please note that all CT scans at this facility use dose modulation, iterative reconstruction, and/or weight-based dosing when appropriate to reduce radiation dose to as low as reasonably achievable. Dictated by Angeles Cueva MD @ 07/01/2023 1:57:36 PM Signed by:?Angeles Cueva MD @07/01/2023 1:57:36 PM (Electronic Signature)
--- NOTE | 2023-07-01 08:24 | CT_ITS ---
Patient: JOSE CHOW Facility:?[facility] Patient ID:?[id number] Site Patient ID:?[id number]. Site :?[id number] Study:?CT-Neck Angio W/IV-07/01/2023 9:06:36 AM Ordering Physician:MARVIN Final Report: DATE: 07/01/2023 CLINICAL HISTORY: Patient with focal neurological deficits. TECHNIQUE: Standard helical CT image acquisition of the neck up to the skull base after bolus intravenous contrast enhancement. 2D and 3D MIP images for post-processing were performed and interpreted on an independent workstation and 3D images were permanently archived. COMPARISON: CT same day. FINDINGS: The origins of the great vessels from the aortic arch are patent. The origin of the right vertebral artery is patent. The origin of the left vertebral artery is patent. The common carotid arteries are patent. There is a mild (<50%) stenosis at the origin of the right internal carotid artery by NASCET criteria. This is caused by non-calcified plaque with a <2mm residual lumen. There is a mild (<50%) stenosis at the origin of the left internal carotid artery by NASCET criteria. This is caused by non-calcified plaque with a <2mm residual lumen. The rest of the cervical segments of the internal carotid arteries are patent up to the skull base, demonstrating findings consistent with fibromuscular dysplasia. The right vertebral artery is dominant. The cervical segments of the vertebral arteries are patent up to the skull base. The visualized intracranial vasculature is unremarkable. The visualized lung apices are unremarkable. The thyroid gland is unremarkable. The soft tissues of the neck are unremarkable. There are degenerative changes in the cervical spine. IMPRESSION: 1. Mild (<50%) stenosis at the origin of the right internal carotid artery by NASCET criteria. This is caused by non-calcified plaque with a <2mm residual lumen. 2. Mild (<50%) stenosis at the origin of the left internal carotid artery by NASCET criteria. This is caused by non-calcified plaque with a <2mm residual lumen. Please note that all CT scans at this facility use dose modulation, iterative reconstruction, and/or weight-based dosing when appropriate to reduce radiation dose to as low as reasonably achievable. Dictated by Angeles Cueva MD @ 07/01/2023 1:53:15 PM Signed by:?Angeles Cueva MD @07/01/2023 1:53:15 PM (Electronic Signature)
[2023-07-01] MEDS: CLOPIDOGREL 75 MG TABLET PO (08:41)
[2023-07-01] MEDS: ASPIRIN 81 MG TABLET EC PO (08:41)
[2023-07-01] MEDS: METOPROLOL TARTRATE 25 MG TABLET 6.25 MG PO (08:41)
[2023-07-01] MEDS: SODIUM CHLORIDE 0.9 % (FLUSH) 10 ML SYRINGE 5 ML IVF ×2 (08:45→20:31)
--- NOTE | 2023-07-01 11:53 | PM.IMPN1 ---
Progress Note: A&P Assessment and plan (1) Ischemic cerebrovascular accident (CVA): Problem details: Symptom onset, slurred speech, 06/29/2023 around noon. Presented to ED [address] head without evidence of acute intracranial abnormality. CTA head/neck shows no large vessel occlusion, mild stenosis (< 50%) right ICA/left ICA. MRI shows new diffusion restriction within the left centrum semiovale and posterior putamen. Primary symptoms are expressive aphasia and right upper extremity apraxia and difficulty with handwriting. Per [facility] Stroke Neurology, Dr. Wagner, recommendations as follows: Continue aspirin 325 mg daily and Plavix 75 mg daily x 21 days, then d/c plavix and decrease ASA to 81mg daily Allow for permissive hypertension for initial 48 hours, begin slowly lowering blood pressure on Monday (can work on normotensive as an outpatient) Lipids, 04/03/2023, reviewed. Recommending statin (patient reported sensitivities to statins and resistance to initiating therapy). Will need close outpatient follow-up/management with PCP PT/OT. Continued daily aerobic activity > 30 minutes as tolerated Continue telemetry. Recent Zio completed April 2023, defer consideration for repeat Zio monitoring to PCP Defer repeat echo to PCP as recently completed 05/03/202306/30: Repeat CT head for reported new symptoms (Neuorology reeval afterward reports these were present on admission as well) now showing evidence of ischemic stroke seen on MRI, no evidence of hemorrhagic transformation. Reviewed with [facility] Neurology, Dr. Wagner (continuity as also evaluated her last night) Status: Acute (2) Hypertension with intolerance to multiple antihypertensive drugs: Problem details: Patient reports intolerance to all classes of blood pressure medications. Rent Collector is considering renal denervation surgery for this. Permissive hypertension post stroke (48 hours) to keep blood pressure below to 220/120 Gradual introduction of blood pressure medicines to achieve normotension over the next few weeks. Given longstanding history of medication intolerance, blood pressure control is unlikely with medications. Status: Acute (3) Statin intolerance: Problem details: Patient reports leg weakness and falling down as a side effect of statins. For treatment of stroke patient should have aggressive lipid-lowering therapy. Patient is reluctant to attempt statin therapy. Outpatient follow-up to review options. Status: Acute (4) Obstructive sleep apnea treated with continuous positive airway pressure (CPAP): Problem details: Referred for sleep study. Patient has sleep apnea. She had a CPAP that was recalled. She quit using it because of the recall. Pending further evaluation. Outpatient follow-up PCP Status: Acute (5) Frequent PVCs: Problem details: Patient is aware of frequent PVCs. Zio monitor April 2023 reviewed Intolerant of beta-blockers to suppress PVCs Continue home low-dose metoprolol Status: Acute (6) Anxiety: Problem details: Manages her anxiety with p.r.n. diazepam and p.r.n. alprazolam. Likely contributing to her reports of medication intolerance. Status: Acute Plan Discharge to home versus SNF, pending further clinical improvement/monitoring 20 minute discussion with patient's daughter reviewing findings, progress, plan of care, discharge. Time Spent With Patient Total time spent: Total time spent caring for the patient today was 75 minutes. This includes time spent for the visit reviewing the chart, time spent during the visit, time spent after the visit and documentation and planning in coordination of care. Subjective Date Seen: 07/01/23 Interval history: Patient is seen on a more urgent need this morning. Had reported to nursing staff that she was having right sided facial drooping which she had not been experiencing prior to this morning. I had not yet met or reviewed this patient's so was unaware if this was the case. Has a few occasional slurring words which was reported prior to this morning. Reports word-finding difficulty, previously reported. Is demonstrating right upper extremity weakness, onset also prior to this morning. Is otherwise demonstrating right lower extremity strength and active range of motion. Has remained afebrile overnight. No events reported overnight. Blood pressures have remained elevated, allowing for permissive hypertension. Has passed the bedside swallow eval and has been tolerating orals without concern or nausea vomiting. Exam Narrative: Exam Narrative: PHYSICAL EXAM General: Quite anxious otherwise NAD HEENT: Normocephalic, atraumatic, sclera white, EOMI Cardiovascular: RRR, S1S2. No pitting edema Pulmonary: CTA bilaterally without rhonchi, rales, expiratory wheezes. No dyspnea on room air Neurological: Alert, oriented, quite anxious, slurred maybe 1 word during exam, mild facial droop right side of mouth, remainder of facial muscles/neuro intact. Uses left hand to assist right upper extremity movement proximally. Finger to nose slow but intact, thumb opposition slow but intact. Right lower extremity strength nearly 5/5, AROM intact proximally and distally Extremities: No gross joint deformity or swelling. AROMI. Neurovascularly intact Skin: Warm, dry. Const: Vital Signs, click to edit/add: Vital Signs - 24 hr 06/30/23 14:31 06/30/23 15:24 06/30/23 15:26 Temperature 98.5 F Pulse Rate 77 77 Pulse Rate [Pulse Oximeter] 84 Respiratory Rate 18 Blood Pressure 218/114 H Blood Pressure [Le ft Arm] Blood Pressure [Le ft Upper Arm] 198/117 H Pulse Oximetry 94 94 95 Oxygen Delivery Me od Room Air 06/30/23 15:30 06/30/23 15:33 06/30/23 15:34 Temperature Pulse Rate 76 73 76 Pulse Rate [Pulse Oximeter] Respiratory Rate Blood Pressure 215/107 H Blood Pressure [Le ft Arm] Blood Pressure [Le ft Upper Arm] Pulse Oximetry 94 93 95 Oxygen Delivery Me od 06/30/23 15:45 06/30/23 15:47 06/30/23 16:01 Temperature Pulse Rate 84 81 87 Pulse Rate [Pulse Oximeter] Respiratory Rate Blood Pressure 224/127 H Blood Pressure [Le ft Arm] Blood Pressure [Le ft Upper Arm] Pulse Oximetry 95 94 95 Oxygen Delivery Me od 06/30/23 16:46 06/30/23 16:48 06/30/23 17:00 Temperature Pulse Rate 83 79 84 Pulse Rate [Pulse Oximeter] Respiratory Rate Blood Pressure 200/124 H Blood Pressure [Le ft Arm] Blood Pressure [Le ft Upper Arm] Pulse Oximetry 83 L 94 93 Oxygen Delivery Me thod 06/30/23 17:02 06/30/23 17:15 06/30/23 17:32 Temperature Pulse Rate 87 86 Pulse Rate [Pulse Oximeter] Respiratory Rate Blood Pressure 201/120 H 224/120 H Blood Pressure [Le ft Arm] Blood Pressure [Le ft Upper Arm] Pulse Oximetry 92 94 Oxygen Delivery Me od 06/30/23 17:38 06/30/23 17:45 06/30/23 18:00 Temperature Pulse Rate 82 81 79 Pulse Rate [Pulse Oximeter] Respiratory Rate Blood Pressure Blood Pressure [Le ft Arm] Blood Pressure [Le ft Upper Arm] Pulse Oximetry 92 93 93 Oxygen Delivery Me od 06/30/23 18:02 06/30/23 18:15 06/30/23 18:30 Temperature Pulse Rate 80 80 84 Pulse Rate [Pulse Oximeter] Respiratory Rate Blood Pressure 229/128 H Blood Pressure [Le ft Arm] Blood Pressure [Le ft Upper Arm] Pulse Oximetry 94 [address] [facility] 06/30/23 18:33 06/30/23 18:34 06/30/23 18:45 Temperature Pulse Rate 82 80 82 Pulse Rate [Pulse Oximeter] Respiratory Rate Blood Pressure 204/130 H Blood Pressure [Le ft Arm] Blood Pressure [Le ft Upper Arm] Pulse Oximetry 95 96 94 Oxygen Delivery [facility] 06/30/23 18:59 06/30/23 19:00 07/01/23 03:45 Temperature 98.6 F 98.3 F Pulse Rate 73 Pulse Rate [Pulse Oximeter] 82 82 Respiratory Rate 22 16 Blood Pressure Blood Pressure [Le ft Arm] 218/108 H 204/115 H Blood Pressure [Le ft Upper Arm] Pulse Oximetry 93 94 Oxygen Delivery [facility] Room Air Room Air 07/01/23 03:52 07/01/23 08:24 07/01/23 08:24 Temperature 98.1 F Pulse Rate 81 Pulse Rate [Pulse Oximeter] 102 H 84 Respiratory Rate 20 18 Blood Pressure Blood Pressure [Le ft Arm] 198/117 H Blood Pressure [Le ft Upper Arm] Pulse Oximetry 96 Oxygen Delivery [facility] Room Air 07/01/23 08:24 07/01/23 11:19 Temperature 98.1 F 98.9 F Pulse Rate Pulse Rate [Pulse Oximeter] 84 85 Respiratory Rate 18 20 Blood Pressure Blood Pressure [Le ft Arm] 200/103 H 209/113 H Blood Pressure [Le ft Upper Arm] Pulse Oximetry 96 93 Oxygen Delivery [facility] Room Air Room Air Labs Labs: Laboratory Results - last 24 hr 06/30/23 06/30/23 14:45 15:20 WBC 5.60 RBC 5.63 H Hgb 16.4 H Hct 48.6 MCV 86 MCH 29 MCHC 34 RDW Coeff of Jaylen 12.8 Plt Count 212 Neut % (Auto) 52.3 Lymph % (Auto) 34.8 [place] % (Auto) 9.1 Eos % (Auto) 2.5 Baso % (Auto) 0.4 Neut # (Auto) 2.93 Lymph # (Auto) 1.95 [place] # (Auto) 0.50 Eos # (Auto) 0.14 Baso # (Auto) 0.02 Abs Immat Gran (auto) 0.05 Imm/Tot Granulo (auto) 0.9 INR 0.92 APTT 33 Sodium 140 Potassium 3.5 L Chloride 110 Carbon Dioxide 27 Anion Gap 3 L BUN 15 Creatinine 0.7 Estimated Creat Clear 39.63 Estimated GFR 91 Glucose 108 Calcium 9.3 Troponin I < 0.01 L Urine Color Yellow Urine Appearance Clear Urine pH 7.5 Ur Specific [place] 1.015 Urine Protein Negative Urine Glucose (UA) Negative Urine Ketones Negative Urine Blood Negative Urine Nitrite Negative Urine Bilirubin Negative Urine Urobilinogen 0.2 Ur Leukocyte Esterase Negative Urine RBC 0-2 Urine WBC 0-2 Ur Squamous Epith Cells None Urine Bacteria None POC Troponin I 0.00 L
[2023-07-01 14:40] LABS: Hemoglobin A1C* 5.8 % (0-5.6)
[2023-07-01 15:25] LABS: Troponin I* < 0.01 ng/mL (0.01-0.04)
--- NOTE | 2023-07-01 18:23 | PC.NURSE ---
End of Shift: Pt calm, cooperative, and pleasant, but also anxious today regarding current situation. See previous nurse note regarding Pt's neuro changes this morning, witnessed by a different RN. Pt vital signs WDL, lung sounds clear. Pt IVs saline locked, and intact. Pt tolerated regular diet and urinating well. Pt has reported headache, declined Tylenol. Pt reported chest pain, EKG performed. No neuro changes have occurred since this morning. Pt has slight right facial drooping, and moderate right arm and mild right leg weakness. Pt 1 assist walker. Tele = NSR.
[2023-07-01] MEDS: ENOXAPARIN 40 MG/0.4 ML INJ SUBCUT (20:29)
[2023-07-01] MEDS: ALPRAZolam 0.25 MG TABLET PO (20:29)
[2023-07-02] VITALS (8 sets, daily range): BP systolic 183–197; BP diastolic 103–116; PULSE 75–91; RESP 16–24; TEMP 36.9–37.2; O2SAT 92–95
--- NOTE | 2023-07-02 06:14 | PC.NURSE ---
END OF SHIFT NOTE: PT A&O. RIGHT SIDED WEAKNESS TO ARM AND LEG, RIGHT SIDED FACIAL DROOP. PT DENIES CP, SOB, N/V. AMBULATES A1/W AND GB. VSS (HTN) ON RA; AFEBRILE. PT REPORTED RECEIVING ORDERED LOVENOX INJECTION CAUSED PT TO NOT BE ABLE TO SLEEP. PRN XANAX ADMINISTERED PER REQUEST FROM PT FOR ANXIETY; PT STATES XANAX MAKES HER URINATE EVERY HOUR. PT SLEPT WELL FROM UNTIL MORNING.?CALL LIGHT WITHIN PT?S REACH.
[2023-07-02 06:21] LABS: Hematocrit 47.1 % (33.0-51.0); Hemoglobin* 15.9 gm/dL (12.0-16.0); Mean Corpuscular HGB Conc 34 gm/dL (32-36); Mean Corpuscular Hemoglobin 29 pg (26-34); Mean Corpuscular Volume 87 fL (80-100); Platelet Count* 214 K/uL (140-440); Red Blood Count 5.43 m/uL (4.00-5.20); White Blood Count* 5.36 K/uL (4.50-11.00)
[2023-07-02 06:34] LABS: Slide Review Reflex No
[2023-07-02 06:50] LABS: Chloride* 112 mmol/L (96-114); Sodium* 141 mmol/L (135-149)
[2023-07-02 06:51] LABS: Potassium* 3.3 mmol/L (3.6-5.1)
[2023-07-02 06:53] LABS: Anion Gap 7 mEq/L (7-15); Blood Urea Nitrogen* 14 mg/dL (7-30); Carbon Dioxide* 22 mmol/L (20-32); Creatinine* 0.5 mg/dL (0.5-1.5); Est. Creatinine Clearance* 39.63; Estimated Glomerular Filt Rate 99 ml/min
[2023-07-02 06:54] LABS: Calcium* 9.1 mg/dL (8.4-10.6); Glucose* 97 mg/dL (60-115)
[2023-07-02] MEDS: POTASSIUM CHLORIDE 10 MEQ CAPSULE ER 40 MEQ PO (08:08)
[2023-07-02] MEDS: METOPROLOL TARTRATE 25 MG TABLET 6.25 MG PO (09:22)
[2023-07-02] MEDS: ASPIRIN EC 325 MG TABLET PO (09:22)
[2023-07-02] MEDS: CLOPIDOGREL 75 MG TABLET PO (09:23)
[2023-07-02] MEDS: SODIUM CHLORIDE 0.9 % (FLUSH) 10 ML SYRINGE 5 ML IVF ×2 (09:24→21:07)
--- NOTE | 2023-07-02 10:07 | PM.IMPN1 ---
Progress Note: A&P Assessment and plan (1) Ischemic cerebrovascular accident (CVA): Problem details: Symptom onset, slurred speech, 06/29/2023 around noon. Presented to ED [address] head without evidence of acute intracranial abnormality. CTA head/neck shows no large vessel occlusion, mild stenosis (< 50%) right ICA/left ICA. MRI shows new diffusion restriction within the left centrum semiovale and posterior putamen. Primary symptoms are expressive aphasia and right upper extremity apraxia and difficulty with handwriting. Per [facility] Stroke Neurology, Dr. Wagner, recommendations as follows: Continue aspirin 325 mg daily and Plavix 75 mg daily x 21 days, then d/c plavix and decrease ASA to 81mg daily Allow for permissive hypertension for initial 48 hours, begin slowly lowering blood pressure on Monday (can work on normotensive as an outpatient) Lipids, 04/03/2023, reviewed. Recommending statin (patient reported sensitivities to statins and resistance to initiating therapy). Will need close outpatient follow-up/management with PCP. 07/01: patient reiterates sensitivities to statin, plan to follow-up with PCP PT/OT. Continued daily aerobic activity > 30 minutes as tolerated Continue telemetry. Recent Zio completed April 2023, defer consideration for repeat Zio monitoring to PCP Defer repeat echo to PCP as recently completed 05/03/202306/30: Repeat CT head for reported new symptoms (Neuorology reeval afterward reports these were present on admission as well) now showing evidence of ischemic stroke seen on MRI, no evidence of hemorrhagic transformation. Reviewed with [facility] Neurology, Dr. Wagner (continuity as also evaluated her last night) Patient is currently followed at [facility] in [place] for TBI. Will see if post CVA therapies can be initiated here Status: Acute (2) Hypertension with intolerance to multiple antihypertensive drugs: Problem details: Patient reports intolerance to all classes of blood pressure medications. Efficiency Expert is considering renal denervation surgery for this. Permissive hypertension post stroke (48 hours) to keep blood pressure below to 220/120 Gradual introduction of blood pressure medicines to achieve normotension over the next few weeks. Given longstanding history of medication intolerance, blood pressure control is unlikely with medications. 07/01: Patient has refused evening dose metoprolol the past 2 nights. Tells me she needs to take this slowly. Discussed risks and benefits, verbalizes understanding. Status: Acute (3) Statin intolerance: Problem details: Patient reports leg weakness and falling down as a side effect of statins. For treatment of stroke patient should have aggressive lipid-lowering therapy. Patient is reluctant to attempt statin therapy. Outpatient follow-up to review options. 07/01: Discussed risks and benefits, patient verbalizes understanding Status: Acute (4) Obstructive sleep apnea treated with continuous positive airway pressure (CPAP): Problem details: Referred for sleep study. Patient has sleep apnea. She had a CPAP that was recalled. She quit using it because of the recall. Pending further evaluation. Outpatient follow-up PCP Status: Acute (5) Frequent PVCs: Problem details: Patient is aware of frequent PVCs. Zio monitor April 2023 reviewed Intolerant of beta-blockers to suppress PVCs Continue home low-dose metoprolol (currently taking only a.m. dose) Status: Acute (6) Anxiety: Problem details: Manages her anxiety with p.r.n. diazepam and p.r.n. alprazolam. Likely contributing to her reports of medication intolerance. Status: Acute Plan Discussed with PT/OT need for acute therapy. Will have team look into [facility] in [place] where she is currently followed Time Spent With Patient Total time spent: Total time spent caring for the patient today was 60 minutes. This includes time spent for the visit reviewing the chart, time spent during the visit, time spent after the visit and documentation and planning in coordination of care. Subjective Date Seen: 07/02/23 Interval history: Patient reports feeling a little better this morning. Concerned that her speech/slurring comes and goes. Continues to ask if her symptoms will completely resolve or how long it will take. We discussed this yesterday as well. Has remained afebrile. Tolerating orals without nausea vomiting. Overnight, nursing staff reports that patient was making appropriate attempts to complete ADLs, making progress. Patient has been refusing evening dose of metoprolol. She tells me this is because her inventory taker told her to slowly reintroduce metoprolol. She also tells me that she became very weak and sick after the Lovenox shot last night. Exam Narrative: Exam Narrative: PHYSICAL EXAM General: Remains quite anxious otherwise NAD HEENT: Normocephalic, atraumatic, sclera white, EOMI Cardiovascular: RRR, S1S2. No pitting edema Pulmonary: CTA bilaterally without rhonchi, rales, expiratory wheezes. No dyspnea on room air Neurological: Alert, oriented, quite anxious, mild facial droop right side of mouth remains, remainder of facial muscles/neuro intact. Improved movement right upper extremity. Proximal strength > distal strength. Right lower extremity strength nearly 5/5, distal strength> proximal strength, AROM intact proximally and distally Extremities: No gross joint deformity or swelling. AROMI. Neurovascularly intact Skin: Warm, dry. Const: Vital Signs, click to edit/add: Vital Signs - 24 hr 07/01/23 11:19 07/01/23 15:12 07/01/23 15:12 Temperature 98.9 F 98.8 F Pulse Rate Pulse Rate [Pulse Oximeter] 85 78 78 Respiratory Rate 20 18 18 Blood Pressure [Le ft Arm] 209/113 H 168/98 H Pulse Oximetry 93 91 Oxygen Delivery Me thod Room Air Room Air 07/01/23 15:48 07/01/23 19:55 07/01/23 20:08 Temperature 99.0 F Pulse Rate 82 77 Pulse Rate [Pulse Oximeter] 83 Respiratory Rate 18 Blood Pressure [Le ft Arm] 186/104 H Pulse Oximetry 93 Oxygen Delivery Me thod Room Air 07/01/23 20:08 07/01/23 23:00 07/02/23 05:30 Temperature 98.6 F Pulse Rate Pulse Rate [Pulse Oximeter] 83 80 Respiratory Rate 18 16 18 Blood Pressure [Le ft Arm] 183/105 H Pulse Oximetry 94 Oxygen Delivery Me thod Room Air Room Air 07/02/23 09:51 Temperature Pulse Rate 83 Pulse Rate [Pulse Oximeter] Respiratory Rate Blood Pressure [Le ft Arm] Pulse Oximetry Oxygen Delivery Me thod Labs Labs: Laboratory Results - last 24 hr 06/30/23 07/01/23 07/01/23 14:45 14:00 14:45 WBC RBC Hgb Hct MCV MCH MCHC Plt Count Sodium Potassium Chloride Carbon Dioxide Anion Gap BUN Creatinine Estimated Creat Clear Estimated GFR Glucose Hemoglobin A1c 5.8 H Calcium Troponin I < 0.01 L Lab Acknowledgement Test Added 07/02/23 05:28 WBC 5.36 RBC 5.43 H Hgb 15.9 Hct 47.1 MCV 87 MCH 29 MCHC 34 Plt Count 214 Sodium 141 Potassium 3.3 L Chloride 112 Carbon Dioxide 22 Anion Gap 7 BUN 14 Creatinine 0.5 Estimated Creat Clear 39.63 Estimated GFR 99 Glucose 97 Hemoglobin A1c Calcium 9.1 Troponin I Lab Acknowledgement
--- NOTE | 2023-07-02 13:24 | PC.NURSE ---
Patient had a fall in the bathroom. I had shut the door for privacy and told her to call when she was done
--- NOTE | 2023-07-02 13:27 | PC.NURSE ---
Patient had a fall. I helped her to the bathroom and when she was sitting I shut the door to give her privacy and told her to call when she was done. I was standing by the computer when I heard what sounded like a walker falling over and I opened the door and found patient guiding herself down to the floor by holding onto the sink. I got her nurse and we helped her stand back up and I helped her back to her chair. She had a really hard time keeping her balance and her right leg kept giving out. She had just got done with PT not that long ago and was just tired out from that. She didn't call because she wanted to try and pull up her pants by herself. No injuries seen at this time and no pain reported by patient -Sloane
--- NOTE | 2023-07-02 17:57 | PC.NURSE ---
End of Shift: Pt cooperative, pleasant, and anxious about situation. Pt is oriented x3. Pt hypertensive but vitally stable, lung sounds clear, BS active. Pt IVs intact and SL. Pt reports chest discomfort but declines pain medication, Pt reports chest discomfort is part of her normal daily life. Pt did report upset stomach after potassium medication, and Pt declined anti-nausea medication. Pt tolerating regular diet well, urinating, and had 2 small BMs. Pt Tele=NSR. Pt fell in bathroom and sustained no injuries, witnessed by IMPROVEMENT LEADER, charge nurse and MD were notified.
[2023-07-02] MEDS: BENZOCAINE/MENTHOL 1 EACH LOZENGE MUCOUS MEM (21:05)
[2023-07-02] MEDS: ALPRAZolam 0.25 MG TABLET PO (21:05)
[2023-07-03] VITALS (7 sets, daily range): BP systolic 175–193; BP diastolic 94–106; PULSE 20–101; RESP 18–22; TEMP 36.8–37.2; O2SAT 91–97
--- NOTE | 2023-07-03 05:56 | PC.NURSE ---
END OF SHIFT NOTE: PT A&O. RIGHT SIDED WEAKNESS TO ARM AND LEG, RIGHT SIDED FACIAL DROOP. PT DENIES SOB, N/V. AMBULATES A1/W AND GB. VSS (PERMISSIVE HTN ALLOWED) ON RA; AFEBRILE. PT SLEPT WELL DURING HS.?PT REPORTED GENERALIZED DISCOMFORT; PAIN MEDS DISCUSSED AND PT DECLINED MEDICATION. CALL LIGHT WITHIN PT?S REACH.
[2023-07-03 06:06] LABS: Chloride* 113 mmol/L (96-114); Sodium* 141 mmol/L (135-149)
[2023-07-03 06:07] LABS: Potassium* 3.8 mmol/L (3.6-5.1)
[2023-07-03 06:09] LABS: Anion Gap 5 mEq/L (7-15); Carbon Dioxide* 23 mmol/L (20-32); Creatinine* 0.5 mg/dL (0.5-1.5); Est. Creatinine Clearance* 39.63; Estimated Glomerular Filt Rate 99 ml/min
[2023-07-03 06:10] LABS: Blood Urea Nitrogen* 12 mg/dL (7-30); Calcium* 9.2 mg/dL (8.4-10.6); Glucose* 101 mg/dL (60-115)
[2023-07-03] MEDS: CLOPIDOGREL 75 MG TABLET PO (09:30)
[2023-07-03] MEDS: METOPROLOL TARTRATE 25 MG TABLET 6.25 MG PO (09:30)
[2023-07-03] MEDS: ASPIRIN EC 325 MG TABLET PO (09:30)
[2023-07-03] MEDS: SODIUM CHLORIDE 0.9 % (FLUSH) 10 ML SYRINGE 5 ML IVF ×2 (09:31→21:54)
[2023-07-03] MEDS: ALPRAZolam 0.25 MG TABLET PO ×2 (10:02→21:55)
--- NOTE | 2023-07-03 11:35 | PM.IMPN1 ---
Progress Note: A&P Assessment and plan (1) Ischemic cerebrovascular accident (CVA): Problem details: Symptom onset, slurred speech, 06/29/2023 around noon. Presented to ED [address] head without evidence of acute intracranial abnormality. CTA head/neck shows no large vessel occlusion, mild stenosis (< 50%) right ICA/left ICA. MRI shows new diffusion restriction within the left centrum semiovale and posterior putamen. Primary symptoms are expressive aphasia and right upper extremity apraxia and difficulty with handwriting. Per [facility] Stroke Neurology, Dr. Wagner, recommendations as follows: Continue aspirin 325 mg daily and Plavix 75 mg daily x 21 days, then d/c plavix and decrease ASA to 81mg daily Allow for permissive hypertension for initial 48 hours, begin slowly lowering blood pressure on Monday (can work on normotensive as an outpatient) Lipids, 04/03/2023, reviewed. Recommending statin (patient reported sensitivities to statins and resistance to initiating therapy). Will need close outpatient follow-up/management with PCP. 07/01: patient reiterates sensitivities to statin, plan to follow-up with PCP PT/OT. Continued daily aerobic activity > 30 minutes as tolerated Continue telemetry. Recent Zio completed April 2023, defer consideration for repeat Zio monitoring to PCP Defer repeat echo to PCP as recently completed 05/03/202306/30: Repeat CT head for reported new symptoms (Neuorology reeval afterward reports these were present on admission as well) now showing evidence of ischemic stroke seen on MRI, no evidence of hemorrhagic transformation. Reviewed with [facility] Neurology, Dr. Wagner (continuity as also evaluated her last night) Patient is currently followed at [facility] in [place] for TBI. Will attempt inpatient rehab placement if possible versus outpatient Status: Acute (2) Hypertension with intolerance to multiple antihypertensive drugs: Problem details: Patient reports intolerance to all classes of blood pressure medications. Pneumatic System Conveyor Operator is considering renal denervation surgery for this. Permissive hypertension post stroke (48 hours) to keep blood pressure below to 220/120 Gradual introduction of blood pressure medicines to achieve normotension over the next few weeks. Given longstanding history of medication intolerance, blood pressure control is unlikely with medications. 07/01: Patient has refused evening dose metoprolol the past 2 nights. Tells me she needs to take this slowly. Discussed risks and benefits, verbalizes understanding. 07/02: Willing to continue low-dose antihypertensives for now Status: Acute (3) Statin intolerance: Problem details: Patient reports leg weakness and falling down as a side effect of statins. For treatment of stroke patient should have aggressive lipid-lowering therapy. Patient is reluctant to attempt statin therapy. Outpatient follow-up to review options. 07/01: Discussed risks and benefits, patient verbalizes understanding 07/02: Prefers to wait until the outpatient setting before considering lipid-lowering agents Status: Acute (4) Obstructive sleep apnea treated with continuous positive airway pressure (CPAP): Problem details: Referred for sleep study. Patient has sleep apnea. She had a CPAP that was recalled. She quit using it because of the recall. Pending further evaluation. Outpatient follow-up PCP Status: Acute (5) Frequent PVCs: Problem details: Patient is aware of frequent PVCs. Zio monitor April 2023 reviewed Intolerant of beta-blockers to suppress PVCs Continue home low-dose metoprolol (currently taking only a.m. dose) Status: Acute (6) Anxiety: Problem details: Manages her anxiety with p.r.n. diazepam and p.r.n. alprazolam. Likely contributing to her reports of medication intolerance. Status: Acute Plan 1. Reviewed with patient. Answered her questions. 2. Patient agreeable to above stated plans and recommendations. 3. Continue work with physical therapy and occupational therapy 4. Await speech therapy consultation Time Spent With Patient Total time spent: 45 minute Subjective Date Seen: 07/03/23 Interval history: Hospital day 5: Notes slight improvement in right hand and arm function today compared to yesterday. Expresses willingness and desire to proceed with appropriate rehabilitation hereafter, inpatient or outpatient. Remains anxious about starting various medications including ones which we have started for blood pressure control. Agrees to attempt low does of blood pressure controlling medicines including metoprolol. Refuses to take statins due to her fear of weak legs which she states she has had in the past. Exam Narrative: Exam Narrative: I examine her in her hospital room and also when she is working with the physical therapist in the therapy area. Appears comfortable and in no acute distress. Vision and hearing are grossly normal. Alert, oriented to self, place, time, situation. Friendly, cooperative. Tends to be anxious. Able to articulate clearly. Lungs clear to auscultation. Heart tones with regular rhythm. Abdomen with active bowel sounds, soft, nontender. Apraxia of right upper extremity and and right lower extremity. With assist of 1, gait belt, walker, is able to ambulate with obvious right-sided deficit. Const: Vital Signs, click to edit/add: Vital Signs - 24 hr 07/02/23 15:33 07/02/23 15:33 07/02/23 19:38 Temperature 98.9 F Pulse Rate 91 Pulse Rate [Pulse Oximeter] 88 88 Respiratory Rate 24 24 Blood Pressure [Le ft Arm] 197/111 H Pulse Oximetry 92 Oxygen Delivery Me thod Room Air 07/02/23 21:00 07/02/23 21:13 07/03/23 00:30 Temperature 98.7 F 98.3 F Pulse Rate Pulse Rate [Pulse Oximeter] 75 75 87 Respiratory Rate 18 18 20 Blood Pressure [Le ft Arm] 184/113 H 192/94 H Pulse Oximetry 92 94 Oxygen Delivery Ia thod Room Air Room Air 07/03/23 05:30 07/03/23 07:00 07/03/23 07:30 Temperature 98.8 F Pulse Rate 83 Pulse Rate [Pulse Oximeter] 96 20 L Respiratory Rate 20 20 Blood Pressure [Le ft Arm] 178/99 H Pulse Oximetry 91 Oxygen Delivery Me thod Room Air 07/03/23 07:30 Temperature 99 F Pulse Rate Pulse Rate [Pulse Oximeter] 101 H Respiratory Rate 20 Blood Pressure [Le ft Arm] 193/105 H Pulse Oximetry 95 Oxygen Delivery Ia thod Room Air Labs Labs: Laboratory Results - last 24 hr 07/03/23 05:39 Sodium 141 Potassium 3.8 Chloride 113 Carbon Dioxide 23 Anion Gap 5 L BUN 12 Creatinine 0.5 Estimated Creat Clear 39.63 Estimated GFR 99 Glucose 101 Calcium 9.2
--- NOTE | 2023-07-03 13:59 | NUTR.NU ---
RDN with nutrition screen and diet education related to low sodium diet. Patient admitted for CVA. Diet is currently 2 gram sodium. Meal intakes have adequate, averaging ~75%. Current weight 143 lb; height 5ft 2in; BMI 26.2 kg/m2. RDN visited with family and patient whom agreed to receive diet education materials, however declined education at this time. Patient tries to follow a healthy diet at home. She tries to limit sweets. Heart healthy diet education materials provided. RDN's contact information provided and encouraged patient to call with questions. RDN to follow up as needed.
--- NOTE | 2023-07-03 14:21 | PC.SOCIAL ---
Discharge planning: Met with pt's dtr Fatemeh regarding d/c plan. Fatemeh states she and the patient are in agreement with recommendation for in-pt acute rehab program at discharge. Fatemeh is most interested in [facility] and the acute rehab unit at [facility]. Called and faxed information to both of these programs. Received call back from [facility] stating they do not currently have beds but will review again tomorrow and call back regarding bed availability in the next few days. Spoke with Marquita at [facility] who confirmed they have beds available and she will call back after completing referral. Met with dtr Fatemeh and updated her on this progress. Provided her with written information on the program at [facility]. Dtr statse she is going to talk to some friends in healthcare about acute rehab options and get back to oncology social work with her choices on placement. At this time, dtkimi states her preferred order for placement would be 1. [facility] (not [place]), 2. [facility], 3. [place] 4. [place]. tar worker to follow up as needed.
--- NOTE | 2023-07-03 15:18 | PC.NURSE ---
Qjp-iv-Nizur Note: Patient A&OX3. Patient has R) sided deficits from stroke (RUE and RLE weakness, slight facial droop, and slightly slurred speech). Pt ambulates Ax1 with walker. Patient requires close monitoring when toileting or ambulating. Patient has good appetite and has been eating majority of meals. Patient has two patent IVs that are saline locked. Patient anxious about new diagnosis; reinforcement and encouragement provided. Patient working with PT/OT and likely discharging to rehab center for ongoing therapy. BP has been elevated; permissive BP parameters in place. Will continue to implement ongoing plan of care.
[2023-07-04] VITALS (8 sets, daily range): BP systolic 158–191; BP diastolic 96–115; PULSE 84–98; RESP 16–20; TEMP 36.7–37.3; O2SAT 92–97
--- NOTE | 2023-07-04 06:55 | PC.NURSE ---
END OF SHIFT NOTE: UNEVENTFUL NIGHT. PT A&O. RIGHT SIDED WEAKNESS TO ARM AND LEG, RIGHT SIDED FACIAL DROOP. PT REPORTED FEELING ?WEAKER? AROUND 0330 WHEN PT WAS AMBULATED TO THE BATHROOM. PT REPORTS GENERALIZED DISCOMFORT STATING ?IT?S FROM THE MEDICINE.? CALL LIGHT WITHIN PT?S REACH.
[2023-07-04] MEDS: CLOPIDOGREL 75 MG TABLET PO (09:32)
[2023-07-04] MEDS: METOPROLOL TARTRATE 25 MG TABLET 6.25 MG PO ×2 (09:32→18:33)
[2023-07-04] MEDS: ASPIRIN EC 325 MG TABLET PO (09:32)
[2023-07-04] MEDS: SODIUM CHLORIDE 0.9 % (FLUSH) 10 ML SYRINGE 5 ML IVF ×2 (09:36→21:05)
[2023-07-04] MEDS: ALPRAZolam 0.25 MG TABLET PO ×2 (09:45→21:05)
--- NOTE | 2023-07-04 12:17 | PC.SOCIAL ---
Discharge planning: On 07/02/22, faxed information to [facility] and [facility]. Called back and left messages for both admissions teams requesting a call back regarding admission evaluation status. Received call from [facility] stating they are still assessing and will call back with a decision soon. Called [facility] and was told they would likely have an available bed tomorrow and are able to assess pt for this bed if needed. Faxed information to [facility] and awaiting call back with decision on admit. jig worker to follow up as needed.
--- NOTE | 2023-07-04 14:41 | PC.SOCIAL ---
Addendum entered by SALMA Donovan 07/04/23 16:11: bunk house worker faxed updated MD note from today to [facility] acute rehab, [facility] added to the information they have already received to review for admission. bunk house worker awaiting decisions from these facilities regarding admit. Called [facility] rehab [phone] and left message requesting call back regarding bed availability in their facility and if information on this patient can be faxed for evaluation for admit. bunk house worker to follow up as needed. Original Note: Discharge planning: Received call back from Marquita at [facility] stating they are unable to accept pt due to reluctance of pt to medication management of her blood pressure. [facility] acute admissions suggested a snf admission might be an option for pt. bunk house worker met with dtrFatemeh, and shared [facility] acute rehab decision to decline. Dtr shared that she wants to make sure facility is provided with updated information as pt has agreed to some medication management. bunk house worker had already shared this with facility buy phone but will fax updated MD note when available to [facility] at dtr's request. Discussed with dtr the option of a retirement rehab stay at a snf. 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 bunk house worker to follow up as needed.
--- NOTE | 2023-07-04 15:31 | P.IMPN_ITS ---
Progress Note: A&P Assessment and plan (1) Ischemic cerebrovascular accident (CVA): Problem details: Symptom onset, slurred speech, 06/29/2023 around noon. Presented to ED [address] head without evidence of acute intracranial abnormality. CTA head/neck shows no large vessel occlusion, mild stenosis (< 50%) right ICA/left ICA. MRI shows new diffusion restriction within the left centrum semiovale and posterior putamen. Primary symptoms are expressive aphasia and right upper extremity apraxia and difficulty with handwriting. Per [facility] Stroke Neurology, Dr. Wagner, recommendations as follows: Continue aspirin 325 mg daily and Plavix 75 mg daily x 21 days, then d/c plavix and decrease ASA to 81mg daily Allow for permissive hypertension for initial 48 hours, begin slowly lowering blood pressure on Monday (can work on normotensive as an outpatient) Lipids, 04/03/2023, reviewed. Recommending statin (patient reported sensitivities to statins and resistance to initiating therapy). Will need close outpatient follow-up/management with PCP. 07/01: patient reiterates sensitivities to statin, plan to follow-up with PCP PT/OT. Continued daily aerobic activity > 30 minutes as tolerated Continue telemetry. Recent Zio completed April 2023, defer consideration for repeat Zio monitoring to PCP Defer repeat echo to PCP as recently completed 05/03/202306/30: Repeat CT head for reported new symptoms (Neuorology reeval afterward reports these were present on admission as well) now showing evidence of ischemic stroke seen on MRI, no evidence of hemorrhagic transformation. Reviewed with [facility] Neurology, Dr. Wagner (continuity as also evaluated her last night) Patient is currently followed at [facility] in [place] for TBI. Will attempt inpatient rehab placement if possible versus outpatient. Status: Acute (2) Hypertension with intolerance to multiple antihypertensive drugs: Problem details: Patient reports intolerance to all classes of blood pressure medications. Rn Spine is considering renal denervation surgery for this. Permissive hypertension post stroke (48 hours) to keep blood pressure below to 220/120 Gradual introduction of blood pressure medicines to achieve normotension over the next few weeks. Given longstanding history of medication intolerance, blood pressure control is unlikely with medications. 07/01: Patient has refused evening dose metoprolol the past 2 nights. Tells me she needs to take this slowly. Discussed risks and benefits, verbalizes understanding. 07/02: Willing to continue low-dose antihypertensives for now and to gradually increase the doses. Status: Acute (3) Statin intolerance: Problem details: Patient reports leg weakness and falling down as a side effect of statins. For treatment of stroke patient should have aggressive lipid-lowering therapy. Patient is reluctant to attempt statin therapy. Outpatient follow-up to review options. 07/01: Discussed risks and benefits, patient verbalizes understanding 07/02: Prefers to wait until the outpatient setting before considering lipid- lowering agents. 07/03: Will discuss possible treatment options given her relative fear of statins including low-dose rosuvastatin, initially twice weekly and gradually increased dose over time, bempedoic acid, PCSK9 inhibitor inclisiran. Status: Acute (4) Obstructive sleep apnea treated with continuous positive airway pressure (CPAP): Problem details: Referred for sleep study. Patient has sleep apnea. She had a CPAP that was recalled. She quit using it because of the recall. Pending further evaluation. Outpatient follow-up PCP Status: Acute (5) Frequent PVCs: Problem details: Patient is aware of frequent PVCs. Zio monitor April 2023 reviewed Intolerant of beta-blockers to suppress PVCs Continue home low-dose metoprolol (currently taking only a.m. dose) Status: Acute (6) Anxiety: Problem details: Manages her anxiety with p.r.n. diazepam and p.r.n. alprazolam. Likely contributing to her reports of medication intolerance. Status: Acute Plan 1. Patient agreeable to above stated plans and recommendations 2. Continue with above stated plans Time Spent With Patient Total time spent: 40 minutes Subjective Date Seen: 07/04/23 Interval history: Hospital day 6: Anxious about the variable ability for her to use her right hand and arm, at times improving and other times losing abilities. Expresses willingness and desire to proceed with appropriate rehabilitation hereafter, inpatient or outpatient. Remains anxious about starting various medications including ones which we have started for blood pressure control. Agrees to attempt low does of blood pressure controlling medicines including metoprolol. Today she is willing to take the metoprolol tartrate 6.25 mg twice daily and continue with her ARB. Willing to consider gradual increase in doses of these blood pressure lowering agents. For the time being she continues to decline taking statins due to her fear of weak legs which she states she has had in the past. Will continue to work with her on this. Exam Narrative: Exam Narrative: Examine her in her hospital room. She is anxious, not new. Alert and oriented to self, place, time, situation. Continues to have right-sided weakness, of upper extremity and lower extremity and face. Lungs clear to auscultation. Heart tones with regular rhythm. Abdomen benign. Const: Vital Signs, click to edit/add: Vital Signs - 24 hr 07/03/23 21:45 07/03/23 21:45 07/03/23 21:45 Temperature 98.7 F Pulse Rate 84 Pulse Rate [Pulse Oximeter] 84 84 Respiratory Rate 18 18 Blood Pressure [Le ft Arm] 182/98 H Pulse Oximetry 93 Oxygen Delivery Fl thod Room Air 07/04/23 00:00 07/04/23 03:35 07/04/23 07:00 Temperature 98.0 F Pulse Rate Pulse Rate [Pulse Oximeter] 88 86 Respiratory Rate 18 20 18 Blood Pressure [Le ft Arm] 178/115 H Pulse Oximetry 92 Oxygen Delivery Fl thod Room Air Room Air 07/04/23 07:00 07/04/23 11:00 Temperature 99.1 F 99.1 F Pulse Rate Pulse Rate [Pulse Oximeter] 86 91 Respiratory Rate 18 18 Blood Pressure [Le ft Arm] 191/97 H 179/101 H Pulse Oximetry 95 96 Oxygen Delivery Fl thod Room Air Room Air
--- NOTE | 2023-07-04 18:58 | PC.NURSE ---
End of shift: Patient A&OX3, family at bedside throughout the day, emotional this morning and crying because she states that she feels like she will not improve VSS, Blood pressures elevated throughout day, permissive BP parameters in place. denies pain. Patient has right-sided deficits from stroke (RUE and RLE weakness, slight facial droop, and slightly slurred speech). Right arm is flaccid and needs to be repositioned on walker when ambulating, and on two pillows when in bed. Pt ambulates Ax1 with walker and GB and needs reminding to shredder picker the right foot when ambulating. Patient requires close monitoring when toileting or ambulating as she may be impulsive to ambulate on her own. Patient's IVs are patent and SL. Patient anxious throughout the day, encouraged patient to rest, stay off phone, and keep stimulation low. Patient working with PT/OT and likely discharging to acute rehab center for ongoing therapy.
[2023-07-05 03:31] VITALS: BP 172/109; RESP 18; TEMP 36.9; O2SAT 94
--- NOTE | 2023-07-05 06:10 | PC.NURSE ---
End of shift [id number]: A&O pleasant and cooperative. Upon arrival pt laughing and joking around with family. BP elevated, VS otherwise stable. Right sided weakness. Right arm flaccid and needs help repositioning. Pt was able to move her right index finger and thumb this evening. Overnight pt was a heavy A1 w/ walker and GB to bathroom needing continuous ques. Pt using call light appropriately.
[2023-07-05 07:00] VITALS: BP 176/113; PULSE 103; PULSE 99; RESP 18; TEMP 36.8; O2SAT 92
[2023-07-05] MEDS: ASPIRIN EC 325 MG TABLET PO (09:22)
[2023-07-05] MEDS: METOPROLOL TARTRATE 25 MG TABLET 6.25 MG PO ×2 (09:22→18:29)
[2023-07-05] MEDS: SODIUM CHLORIDE 0.9 % (FLUSH) 10 ML SYRINGE 5 ML IVF ×2 (09:23→20:48)
[2023-07-05] MEDS: CLOPIDOGREL 75 MG TABLET PO (09:23)
[2023-07-05] MEDS: ALPRAZolam 0.25 MG TABLET PO ×2 (09:26→20:48)
--- NOTE | 2023-07-05 13:35 | PC.SOCIAL ---
Addendum entered by PETRA Zambrano 07/05/23 13:50: Address to [facility] is [address] [address]. Original Note: Discharge planning- Contacted the following acute rehab facilities for pt. 1. [facility]- [facility] admissions did not receive faxed packet. Faxed new referral packet to [phone]. 2. [facility]- Received a phone call from Kurtis in admissions ([phone]) requesting new therapy notes, current vitals, and MAR. Faxed requested medical documents to [phone]. [facility] from [facility] informing that he is waiting for the medical esthetician's approval for admission. Received a phone call back from Kurtis in admissions informing the medical esthetician approved. Originally [facility] was going to have an open bed today, however, the pt leaving their facility is discharging later this evening, so pt will not be able to admit until tomorrow. [facility] will require a physician to physician phone call tomorrow and will call with more details. They will have a final approval by 9:00 am tomorrow. [facility] would like to call the patient and a family member to discuss their program today. Provided Kurtis with the contact information for pt's daughter Fatemeh Tang. Kurtis informs that the [facility] MD would like a more detailed plan of how to control pt's blood pressures and what interventions have been tried. This detail can be provided in pt's discharge summary. Discussed with MD and MD will detail plan in pt's chart note. Met with pt's daughter Fatemeh and provided update. Informed pt's daughter that [facility] will reach out to her this afternoon and provide details on the facility and program. Informed pt's daughter that [facility] will give the final approval tomorrow morning and if approved, pt will transport around 1:30 pm. Pt's daughter was agreeable to the plan. Provided update to charge nurse. Social work will follow up with [facility] tomorrow morning.
[2023-07-05 14:56] VITALS: BP 145/87; PULSE 84; PULSE 87; RESP 18; TEMP 37.2; O2SAT 92
--- NOTE | 2023-07-05 15:22 | PM.IMPN1 ---
Progress Note: A&P Assessment and plan (1) Ischemic cerebrovascular accident (CVA): Problem details: Symptom onset, slurred speech, 06/29/2023 around noon. Presented to ED [address] head without evidence of acute intracranial abnormality. CTA head/neck shows no large vessel occlusion, mild stenosis (< 50%) right ICA/left ICA. MRI shows new diffusion restriction within the left centrum semiovale and posterior putamen. Primary symptoms are expressive aphasia and right upper extremity apraxia and difficulty with handwriting. Per [facility] Stroke Neurology, Dr. Wagner, recommendations as follows: Continue aspirin 325 mg daily and Plavix 75 mg daily x 21 days, then d/c plavix and decrease ASA to 81mg daily Allow for permissive hypertension for initial 48 hours, begin slowly lowering blood pressure on Monday (can work on normotensive as an outpatient) Lipids, 04/03/2023, reviewed. Recommending statin (patient reported sensitivities to statins and resistance to initiating therapy). Will need close outpatient follow-up/management with PCP. 07/01: patient reiterates sensitivities to statin, plan to follow-up with PCP PT/OT. Continued daily aerobic activity > 30 minutes as tolerated Continue telemetry. Recent Zio completed April 2023, defer consideration for repeat Zio monitoring to PCP Defer repeat echo to PCP as recently completed 05/03/202306/30: Repeat CT head for reported new symptoms (Neuorology reeval afterward reports these were present on admission as well) now showing evidence of ischemic stroke seen on MRI, no evidence of hemorrhagic transformation. Reviewed with [facility] Neurology, Dr. Wagner (continuity as also evaluated her last night) Patient is currently followed at [facility] in [place] for TBI. Will continue to attempt inpatient rehab placement if at all possible. Status: Acute (2) Hypertension with intolerance to multiple antihypertensive drugs: Problem details: Patient reports intolerance to all classes of blood pressure medications. 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 Permissive hypertension post stroke (48 hours) to keep blood pressure below to 220/120 Gradual introduction of blood pressure medicines to achieve normotension over the next few weeks. Given longstanding history of medication intolerance, blood pressure control is unlikely with medications. 07/01: Patient has refused evening dose metoprolol the past 2 nights. Tells me she needs to take this slowly. Discussed risks and benefits, verbalizes understanding. 07/02: Willing to continue low-dose antihypertensives for now and to gradually increase the doses. 07/04: Increase telmisartan dose from 10 mg once daily to 10 mg twice daily today. Continue to make very slight doses in her antihypertensive regimen as warranted over time. Status: Acute (3) Statin intolerance: Problem details: Patient reports leg weakness and falling down as a side effect of statins. For treatment of stroke patient should have aggressive lipid-lowering therapy. Patient is reluctant to attempt statin therapy. Outpatient follow-up to review options. 07/01: Discussed risks and benefits, patient verbalizes understanding 07/02: Prefers to wait until the outpatient setting before considering lipid-lowering agents. 07/03: Will discuss possible treatment options given her relative fear of statins including low-dose rosuvastatin, initially twice weekly and gradually increased dose over time, bempedoic acid, PCSK9 inhibitor inclisiran. 07/04: She is agreeable to start low-dose trial of rosuvastatin 5 mg orally once weekly for 1 week, and if she tolerates that then increase to 5 mg twice weekly for 2 weeks, and if she tolerates that then increase to 5 mg thrice weekly for 2 weeks, and so forth thereafter. Status: Acute (4) Obstructive sleep apnea treated with continuous positive airway pressure (CPAP): Problem details: Referred for sleep study. Patient has sleep apnea. She had a CPAP that was recalled. She quit using it because of the recall. Pending further evaluation. Outpatient follow-up PCP Status: Acute (5) Frequent PVCs: Problem details: Patient is aware of frequent PVCs. Zio monitor April 2023 reviewed Intolerant of beta-blockers to suppress PVCs Continue home low-dose metoprolol tartrate 6.25 mg twice daily Status: Acute (6) Anxiety: Problem details: Manages her anxiety with p.r.n. diazepam and p.r.n. alprazolam. Likely contributing to her reports of medication intolerance. Status: Acute Plan 1. Reviewed impression with patient 2. Reviewed with her daughter, Fatemeh. 3. Answered their questions. 4. Continue with current efforts 5. They are agreeable with above stated plans and recommendations. Subjective Date Seen: 07/05/23 Interval history: Hospital day 7: Continues to note variable ability to use her right hand and arm. Expresses continued willingness and desire to proceed with appropriate rehabilitation hereafter, preferably inpatient. Remains anxious about starting various medications including ones which we have started for blood pressure control. Agrees to attempt low does of blood pressure controlling medicines including metoprolol. Today she is willing to take the metoprolol tartrate 6.25 mg twice daily and continue with her ARB. Willing to consider gradual increase in doses of these blood pressure lowering agents. For the time being she continues to decline taking statins due to her fear of weak legs which she states she has had in the past. Will continue to work with her on this. Tolerating metoprolol tartrate 6.25 mg twice daily. Tolerating telmisartan 10 mg daily and willing to increase to 10 mg twice daily. For the 1st time today she expresses willingness to attempt low-dose statin and slowly increase the dose over time. Discussed trying rosuvastatin 5 mg orally once weekly for 1 week, and if she tolerates that then increase to 5 mg twice weekly for 2 weeks, and if she tolerates that then increase to 5 mg thrice weekly for 2 weeks, and so forth thereafter. Exam Narrative: Exam Narrative: I examine her in her room and while she is working with Physical therapy in the physical therapy department and in halls. Vision and hearing continue to be normal. Alert and oriented to self, place, time, situation. Continues to be anxious yet reasonable. Friendly and cooperative. Lungs remain clear to auscultation. Heart tones with regular rhythm. Abdomen with active bowel sounds, soft, nontender. Continues to have right-sided hemiparesis including mild drooping in corner of the right mouth, although I do not know how much of this is chronic and how much is acute based on 1 photo that I reviewed of her in the past. Const: Vital Signs, click to edit/add: Vital Signs - 24 hr 07/04/23 20:07 07/04/23 22:49 07/04/23 23:00 Temperature 98.8 F 98.6 F Pulse Rate 88 Pulse Rate [Pulse Oximeter] 98 88 Respiratory Rate 18 16 Blood Pressure [Le ft Arm] 175/100 H 158/96 H Pulse Oximetry 93 95 Oxygen Delivery Me thod Room Air Room Air 07/05/23 03:31 07/05/23 07:00 07/05/23 07:00 Temperature 98.4 F 98.3 F Pulse Rate Pulse Rate [Pulse Oximeter] 99 99 Respiratory Rate 18 18 18 Blood Pressure [Le ft Arm] 172/109 H 176/113 H Pulse Oximetry 94 92 Oxygen Delivery Me thod Room Air Room Air 07/05/23 07:00 07/05/23 14:56 07/05/23 14:56 Temperature 99.0 F Pulse Rate 103 H 84 Pulse Rate [Pulse Oximeter] 87 Respiratory Rate 18 Blood Pressure [Le ft Arm] 145/87 H Pulse Oximetry 92 Oxygen Delivery Me thod Room Air 07/05/23 14:56 Temperature Pulse Rate Pulse Rate [Pulse Oximeter] 87 Respiratory Rate 18 Blood Pressure [Le ft Arm] Pulse Oximetry Oxygen Delivery Me thod
--- NOTE | 2023-07-05 19:10 | PC.NURSE ---
End of shift: Patient pleasant and cooperative, Patient A&OX3, family at bedside throughout the day, VSS, Blood pressures elevated throughout day, permissive BP parameters in place. denies pain. Patient has right-sided deficits from stroke (RUE and RLE weakness, slight facial droop, and slightly slurred speech). Right arm is flaccid and needs to be repositioned on walker when ambulating, and on two pillows when in bed. Pt ambulates Ax1 with walker and GB and needs reminding to cook pickled meat the right foot when ambulating. Patient's IVs are patent and SL. Patient working with PT/OT and likely discharging to [facility] in [place] for ongoing therapy tomorrow 07/06/23, see social work notes.
[2023-07-05 19:36] VITALS: BP 154/88; PULSE 84; RESP 16; TEMP 37; O2SAT 93
[2023-07-05] MEDS: ROSUVASTATIN CALCIUM 10 MG TABLET 5 MG PO (20:48)
[2023-07-05 22:55] VITALS: BP 160/90; PULSE 65; RESP 16; TEMP 36.7; O2SAT 95
[2023-07-05 23:00] VITALS: PULSE 79
[2023-07-06 03:00] VITALS: BP 150/80; PULSE 87; RESP 16; TEMP 36.7; O2SAT 92
[2023-07-06] MEDS: SENNOSIDES/DOCUSATE TABLET PO (04:41)
[2023-07-06] MEDS: ACETAMINOPHEN 325 MG TABLET 650 MG PO (04:44)
--- NOTE | 2023-07-06 06:24 | PC.NURSE ---
End of shift [id number]: A&O pleasant and cooperative. Pt was a bit more sad today than the last. She states that she is nervous about her transition tomorrow. BP elevated, VS otherwise stable. Right sided weakness. Right arm flaccid but able to move pointer finger. Needs help repositioning arm. A1 w/ walker and gait belt last evening and A2 w/ walker and gait belt overnight. Pt reported 9/10 generalized pain overnight stating that she feels ?sore all over?. Pt requested some Tylenol stating that she takes it at home. Senna given overnight per request. Pt using call light appropriately.?
[2023-07-06 06:39] LABS: Hemoglobin* 14.8 gm/dL (12.0-16.0)
[2023-07-06 07:02] VITALS: PULSE 84
[2023-07-06 07:06] LABS: Potassium* 3.6 mmol/L (3.6-5.1)
[2023-07-06 08:10] VITALS: BP 167/93; PULSE 73; RESP 18; TEMP 36.9; O2SAT 96
[2023-07-06 08:13] LABS: Aspartate Amino Transferase* 39 U/L (12-35)
[2023-07-06 08:14] LABS: Creatine Kinase* 70 U/L (41-117)
[2023-07-06] MEDS: ASPIRIN EC 325 MG TABLET PO (09:18)
[2023-07-06] MEDS: ALPRAZolam 0.25 MG TABLET PO (09:18)
[2023-07-06] MEDS: CLOPIDOGREL 75 MG TABLET PO (09:19)
[2023-07-06] MEDS: METOPROLOL TARTRATE 25 MG TABLET 6.25 MG PO (09:19)
[2023-07-06] MEDS: SODIUM CHLORIDE 0.9 % (FLUSH) 10 ML SYRINGE 5 ML IVF (09:19)
[2023-07-06 11:20] VITALS: BP 153/81; PULSE 72; RESP 18; TEMP 36.9; O2SAT 95
--- NOTE | 2023-07-06 11:38 | PC.SOCIAL ---
Addendum entered by PETRA Zambrano 07/06/23 14:40: EMS had an emergency call and will not arrive by 1:30 pm. Estimated arrival time is 2:30 pm. Called admissions at [facility] to discuss discharge time. Informed that pt will not leave until 3:00 pm. Admissions informs that they can only accept pt until a certain time and informs that 3:00 pm will be ok. Admissions requests a call when pt is leaving [facility]. Met with pt and pt's daughter Fatemeh to discuss. Fatemeh is leaving at 2:30 pm and requests that her sister, Angelica, be updated on discharge plans for today. Angelica's phone number is [phone]. Fatemeh informs that Angelica plans to drive to [facility] to assist pt with getting settled in. Original Note: Discharge planning- Re[facility] requesting Consultation notes, Neurology notes, med list, labs, vitals, and discharge summary prior to 12:00 pm. Faxed requested documents to [phone]. Received phone call back from [facility] admissions asking for confirmation that transportation is set. Provided information that EMS will spanish moss picker between 12:45 pm to 1:30 pm. Discharge summary will be faxed when completed by . Jasmina nurse to nurse phone number is [phone]. [facility]'s accepting MD is Dr. Ibeth Ellison. Nurse to nurse should be completed prior to discharge. Provided information to charge nurse. Met with pt and pt's daughter Fatemeh to discuss discharge. Provided information on EMS arrival time. Pt has no further questions. Informed pt and family they can contact social work if there are any further questions.
--- NOTE | 2023-07-06 14:38 | P.DS_ITS ---
DS: Providers Provider Date Seen: 07/06/23 Date of admission: 06/30/23 18:56 Primary care physician: Kyra Perera PA-C Admitting Clinician: Junito Ro MD Consults: 06/30/23 18:56 Consult to Speech Therapy [CONS] Routine Comment: Reason(s) for Speech Consult:: Speech/Swallowing Eval 06/30/23 18:59 Consult to Occupational Therapy [CONS] Routine Comment: Reason(s) for OT Consult:: Evaluate and Treat Any Restrictions?:: No Restrictions Consult to Physical Therapy [CONS] Routine Comment: Reason(s) for PT Consult:: Evaluate and Treat Any Restrictions?:: No Restrictions 07/01/23 00:18 Consult to Occupational Therapy [CONS] Routine Comment: Reason(s) for OT Consult:: Evaluate and Treat Any Restrictions?:: No Restrictions Comment: R sided weakness from CVA Consult to Physical Therapy [CONS] Routine Comment: Reason(s) for PT Consult:: Evaluate and Treat Any Restrictions?:: No Restrictions Comment: R sided weakness from CVA 07/02/23 12:58 Consult to Refrigeration Operator [CONS] Routine Comment: Currently in outpt rehab [facility] Reason for Consult:: Discharge Planning Needs Attending Physician on discharge: Raoul Sanabria MD Date of Discharge: 07/06/23 DS: Diagnosis Discharge Diagnosis (1) Ischemic cerebrovascular accident (CVA): Status: Acute Problem details: Symptom onset, slurred speech, 06/29/2023 around noon. Presented to ED [address] head without evidence of acute intracranial abnormality. CTA head/neck shows no large vessel occlusion, mild stenosis (< 50%) right ICA/left ICA. MRI shows new diffusion restriction within the left centrum semiovale and posterior putamen. Primary symptoms are expressive aphasia and right upper extremity apraxia and difficulty with handwriting. Per [facility] Stroke Neurology, Dr. Wagner, recommendations as follows: Continue aspirin 325 mg daily and Plavix 75 mg daily x 21 days, then d/c plavix and decrease ASA to 81mg daily Allow for permissive hypertension for initial 48 hours, begin slowly lowering blood pressure on Monday (can work on normotensive as an outpatient) Lipids, 04/03/2023, reviewed. Recommending statin (patient reported sensitivities to statins and resistance to initiating therapy). Will need close outpatient follow-up/management with PCP. 07/01: patient reiterates sensitivities to statin, plan to follow-up with PCP PT/OT. Continued daily aerobic activity > 30 minutes as tolerated Continue telemetry. Recent Zio completed April 2023, defer consideration for repeat Zio monitoring to PCP Defer repeat echo to PCP as recently completed 05/03/202306/30: Repeat CT head for reported new symptoms (Neuorology reeval afterward reports these were present on admission as well) now showing evidence of ischemic stroke seen on MRI, no evidence of hemorrhagic transformation. Reviewed with [facility], Dr. Wagner (continuity as also evaluated her last night) Patient is currently followed at [facility] in [place] for TBI. Will continue to attempt inpatient rehab placement if at all possible. (2) Anxiety: Status: Acute Problem details: Manages her anxiety with p.r.n. diazepam and p.r.n. alprazolam. Likely contributing to her reports of medication intolerance. (3) Hypertension with intolerance to multiple antihypertensive drugs: Status: Acute Problem details: Patient reports intolerance to all classes of blood pressure medications. 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 Permissive hypertension post stroke (48 hours) to keep blood pressure below to 220/120 Gradual introduction of blood pressure medicines to achieve normotension over the next few weeks. Given longstanding history of medication intolerance, blood pressure control is unlikely with medications. 07/01: Patient has refused evening dose metoprolol the past 2 nights. Tells me she needs to take this slowly. Discussed risks and benefits, verbalizes understanding. 07/02: Willing to continue low-dose antihypertensives for now and to gradually increase the doses. 07/04: Increase telmisartan dose from 10 mg once daily to 10 mg twice daily today. Continue to make very slight doses in her antihypertensive regimen as warranted over time. (4) Statin intolerance: Status: Acute Problem details: Patient reports leg weakness and falling down as a side effect of statins. For treatment of stroke patient should have aggressive lipid-lowering therapy. Patient is reluctant to attempt statin therapy. Outpatient follow-up to review options. 07/01: Discussed risks and benefits, patient verbalizes understanding 07/02: Prefers to wait until the outpatient setting before considering lipid- lowering agents. 07/03: Will discuss possible treatment options given her relative fear of statins including low-dose rosuvastatin, initially twice weekly and gradually increased dose over time, bempedoic acid, PCSK9 inhibitor inclisiran. 07/04: She is agreeable to start low-dose trial of rosuvastatin 5 mg orally once weekly for 1 week, and if she tolerates that then increase to 5 mg twice weekly for 2 weeks, and if she tolerates that then increase to 5 mg thrice weekly for 2 weeks, and so forth thereafter. (5) Obstructive sleep apnea treated with continuous positive airway pressure (CPAP): Status: Acute Problem details: Referred for sleep study. Patient has sleep apnea. She had a CPAP that was recalled. She quit using it because of the recall. Pending further evaluation. Outpatient follow-up PCP (6) Frequent PVCs: Status: Acute Problem details: Patient is aware of frequent PVCs. 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 Symptoms started around noon yesterday. They have been somewhat fluctuating over the last day. She also noted a little bit of numbness around her mouth. She thinks her speech is a little better today and she is able to give her history today without much difficulty. In the emergency department she had CT scan of the head showing mild chronic microvascular ischemic changes and CT angiogram of the head and neck showed no significant large vessel occlusion or stenosis. MRI of the brain showed new diffusion restriction within the left centrum semiovale and posterior putamen consistent with acute ischemia. Radiologist felt this was ischemia that occurred within the last 6 hours. She was seen by Stroke Neurology. They recommended therapy, antiplatelets, assessment of lipids and blood sugar and echocardiogram. Permissive hypertension and blood pressure control also reviewed. She had an echocardiogram performed on May 03 which was unremarkable with an ejection fraction of 62% with no significant valvular disease. Hemoglobin A1c in March was 5.9 and lipid profile in March 2023 was fairly abnormal with a total cholesterol 268, triglycerides 232, HDL 58 and LDL of 164. Patient has multiple drug intolerances to blood pressure medicines and statins. I reviewed these in detail with the patient. She has been working for many years with Cardiology and others to find blood pressure medicines she can tolerate. Last week she saw her dairy bar manager who recommended cautiously introducing telmisartan 10 mg daily and increase to 10 mg b.i.d. if she can tolerate it and metoprolol tartrate 6.25 mg b.i.d.. She did not follow these instructions because she was worried about side effects. She tells me she gets increased palpitations and short of breath from beta-blockers. She is open to trying them again while she is in the hospital. She is intolerant of all statins and is not interested in trying them again. Statins cause her legs to be weak and she has fallen down because of statin therapy. Please see details above of her hospital course. Ultimately patient did tolerate the gradual introduction of the telmisartan and the metoprolol tartrate. Additionally we introduced rosuvastatin 5 mg once weekly with intent of continue to try this. Patient is discharged to an acute rehabilitation unit at [place], [place]. They will continue to work with her toward achieving her desire goes for short, intermediate, and long-term independence. Time Spent with Patient Time attestation: Total time spent providing and/or coordinating discharge services: Exam Narrative: Exam Narrative: I examine her in her room and while she is working with Physical therapy in the physical therapy department and in halls. Vision and hearing continue to be normal. Alert and oriented to self, place, time, situation. Continues to be anxious yet reasonable. Friendly and cooperative. Lungs remain clear to auscultation. Heart tones with regular rhythm. Abdomen with active bowel sounds, soft, nontender. Continues to have right-sided hemiparesis including mild drooping in corner of the right mouth, although I do not know how much of this is chronic and how much is acute based on 1 photo that I reviewed of her in the past. Const: Vital Signs, click to edit/add: Vital Signs - 24 hr 07/05/23 14:56 07/05/23 14:56 07/05/23 14:56 Temperature 99.0 F Pulse Rate 84 Pulse Rate [Pulse Oximeter] 87 87 Respiratory Rate 18 18 Blood Pressure [Le ft Arm] 145/87 H Pulse Oximetry 92 Oxygen Delivery Me thod Room Air 07/05/23 19:36 07/05/23 22:55 07/05/23 23:00 Temperature 98.6 F 98.1 F Pulse Rate 79 Pulse Rate [Pulse Oximeter] 84 65 Respiratory Rate 16 16 Blood Pressure [Le ft Arm] 154/88 H 160/90 H Pulse Oximetry 93 95 Oxygen Delivery Me thod Room Air Room Air 07/06/23 03:00 07/06/23 07:02 07/06/23 08:10 Temperature 98.1 F 98.4 F Pulse Rate 84 Pulse Rate [Pulse Oximeter] 87 73 Respiratory Rate 16 18 Blood Pressure [Le ft Arm] 150/80 H 167/93 H Pulse Oximetry 92 96 Oxygen Delivery Me thod Room Air Room Air 07/06/23 11:20 Temperature 98.5 F Pulse Rate Pulse Rate [Pulse Oximeter] 72 Respiratory Rate 18 Blood Pressure [Le ft Arm] 153/81 H Pulse Oximetry 95 Oxygen Delivery Me thod Room Air DS: Data Data Completed and Pending Labs on day of discharge: Labs from last 24 hours 07/06/23 07/06/23 07:50 06:04 Hgb 14.8 Potassium 3.6 AST 39 H Total Creatine Kinase 70 Lab Acknowledgement Test Added Imaging CT scan - head: Radiologist's impression: 06/30/2023: IMPRESSION: No evidence of acute intracranial abnormality on this unenhanced CT. Mild chronic microvascular ischemic changes. 07/01/2023: IMPRESSION: Ill-defined hypodensities within the left centrum semiovale and posterior putamen consistent with acute ischemia better visualized on prior MRI. No evidence of hemorrhagic transformation. MR Brain: Radiologist's impression: 06/30/2023: Impression: 1. New diffusion restriction within the left centrum semiovale and posterior putamen consistent with acute ischemia. Lack of associated T2/FLAIR hyperintensity suggests time course of less than 6 hours. 2. Similar mild diffuse parenchymal volume loss and chronic small-vessel ischemic changes. CT scan angiogram - head and neck: Radiologist's impression: 07/01/2023: Impression: 1. New diffusion restriction within the left centrum semiovale and posterior putamen consistent with acute ischemia. Lack of associated T2/FLAIR hyperintensity suggests time course of less than 6 hours. 2. Similar mild diffuse parenchymal volume loss and chronic small-vessel ischemic changes. IMPRESSION: 1. No cerebral aneurysm or large vessel occlusion. 2. Intracranial atherosclerosis with multifocal severe stenosis in the right M2 segments, mild to moderate stenoses in the M1 segments bilaterally and mild stenoses in the basilar and posterior cerebral arteries bilaterally. Discharge Plan Discharge Disposition: [facility] Discharge Location: [facility] Date of Admission: 06/30/23 18:56 Attending Provider on Discharge: Raoul Sanabria Primary Care Provider: Kyra Perera Condition: Stable Discharge Orders: Transfer of Care to Other Hospital (ORDER); Ordered 07/06/23 Ordered By: Raoul Sanabria Additional Instructions: 1. Tolerating low-dose metoprolol tartrate and telmisartan for BP control - consider adjustment as wareranted; 2. Initiated trial of rosuvastatin 5 mg po once weekly on 07/05/2023. Noted transient aching throughout the night of 07/04-07/05, with resultant little sleep. She is willing to continue with trial for now. On 07/06/23 AST 39 and CK 70. May need to consider non-statin alternative for lipid management. Oxygen: No Urinary Catheter: No Drips/Lines: None Services not available here: Acute rehabilitation services and professionals
[2023-07-06 15:15] VITALS: BP 160/78; PULSE 84; RESP 18; TEMP 37.2; O2SAT 98
--- NOTE | 2023-07-06 16:31 | PC.NURSE ---
Pt alert and oriented. Pt had complaints of pain ranging from 0-3. Both Pt's IV removed; catheters in place. Pt assist of one with walker and gait belt. Pt had some anxiety about discharge today time spent with Pt to help with this. Pt's daughter at bedside most of shift. Pt had shower with OT today. Pt has right sided weakness due to recent stroke. Pt going to rehab facility at [place]. Pt transported via non emergent EMS.
== END 2023-07-06 15:53 | disposition short-term general hospital (02) | DRG 65 ==
LOC: ED 17:55 → MEDSURG 18:53
PROVIDERS: Internal Medicine; Physician Assistant; Admitting Provider Family Medicine; Emergency Provider Family Medicine; PCP Physician Assistant Medical; Visit Provider Family Medicine
DX: I63.9 Cerebral infarction, unspecified (principal); G81.91 Hemiplegia, unspecified affecting right dominant side; R47.01 Aphasia; R48.2 Apraxia; R47.81 Slurred speech; R53.1 Weakness; I10 Essential (primary) hypertension; I65.23 Occlusion and stenosis of bilateral carotid arteries; F41.9 Anxiety disorder, unspecified; G47.33 Obstructive sleep apnea (adult) (pediatric); I49.3 Ventricular premature depolarization; L72.9 Follicular cyst of the skin and subcutaneous tissue, unspecified; M15.1 Heberden's nodes (with arthropathy); Z88.8 Allergy status to other drugs, medicaments and biological substances
CPT/HCPCS: 36415; 70450; 70496; 70498; 70551; 80048; 81001; 82550; 82962; 83036; 84132; 84450; 84484; 85018; 85025; 85027; 85610; 85730; 92523; 93005; 94761; 97110; 97112; 97116; 97161; 97165; 97535; 99233; 99284; 99291; G0427; A9270; J1650; J3360; J7030; Q9967

== ENCOUNTER 2023-07-06 15:35 | Outpatient (CLI) | payer MEDICARE, BC, SELFPAY ==
--- OUTSIDE RECORDS SUMMARY | 2023-07-18 02:04 | XMS_ITS | Continuity of Care Document ---
Author Name Unknown Organization Z [facility] Address [address] [place] [address] Phone Care Team Providers Care Professor Of Biology Name Role Phone Bernabe MAURICE, Clayton Unavailable Unavailable Advance Directives Directive Yes / No Effective Date File Name No Information Encounters Encounter Description Practice Location Reason(s) For Visit Diagnoses Date Provider Providers Copied on Encounter Z [facility], [address] [place] [address], [place], [address], [place] tel:[phone] [facility] No Information Bernabe Arnold. [facility], [address], [place], [place], [id number] , [place]. tel:[phone] Family History Family Member Type Diagnosis Age At Onset No Information Payers Payer name Insurance type Covered libertarian ID Authoriza tion(s) No Information Social History [...]
--- OUTSIDE RECORDS SUMMARY | 2023-07-18 02:04 | XMS_ITS | Clinical Summary ---
Author Name Unknown Organization [facility] Address [address] [place] [address] Care Team Providers Care Career Portals Teacher Name Role Phone Kyra Perera Primary Care Provider [phone] Allergies Active Allergy Reactions Criticality Noted Date [...] 05/02/2011 Medications No known medications Active Problems Problem Noted Date Diagnosed Date Stroke (cerebrum) 07/06/2023 Encounters Date Type Department Care Team Description 07/06/2023 5:24 PM CDT - Present Hospital Encounter [address] [address] Ibeth Ellison MD Salehi, Parisa, MD Cerebrovascular accident (CVA) due to thrombosis of left middle cerebral artery (H) (Primary Dx); Anxiety; Benign essential hypertension from Last 3 Months Family History Medical History Relation Comments Prostate Cancer Brother Cancer Sister Relation Status Comments Brother Sister Social History Tobacco Use Types Packs/Day Years Used Date Smoking Tobacco: Never Assessed Adolescent Education Answer Date Record ed Getting School Help Needed Not on file 12/25 Sex and Gender Information Value Date Recorded Sex Assigned at Not on file Gender Identity Not on file Sexual Orientation Not on file Last Filed Vital Signs Vital Sign Reading Time Taken Comments Blood Pressure 182/103 07/18/2023 1:31 AM CDT Pulse 77 07/17/2023 8:37 PM CDT Temperature 36.5 ??C (97.7 ??F) 07/17/2023 3:44 PM CD T Respiratory Rate 18 07/17/2023 3:44 PM CDT Oxygen Saturation 93% 07/17/2023 3:44 PM CDT Inhaled Oxygen Concentration - - Weight 64.6 kg (142 lb 6.4 oz) 07/14/2023 12:36 AM CDT Height - - Body Mass Index - - Plan of Treatment Health Maintenance Due Date Last Done Comments ADVANCE CARE PLANNING 1950 ANNUAL REVIEW OF HM ORDERS 1950 CT COLONOGRAPHY 1950 DEXA 1950 FIT 1950 FLEX SIG 1950 LIPID 1950 sDNA (Cologuard) 1950 HEPATITIS C SCREENING 1968 ZOSTER IMMUNIZATION (1 of 2) 2000 RSV VACCINE ( & 60+) (1 - 1-dose 60+ series) 2010 FALL RISK ASSESSMENT 06/21/2015 Pneumococcal Vaccine: 65+ Years (1 of 1 - PCV) 06/21/2015 COVID-19 Vaccine (3 - season) 2022 03/16/2021, 05/23/2020 MEDICARE ANNUAL WELLNESS VISIT 01/21/2023 01/21/2022, 01/19/2021, 01/10/2020 PHQ-2 (once per calendar year) 2023 INFLUENZA VACCINE (Season Ended) 2023 MAMMO SCREENING 12/09/2023 12/08/2021, 12/08/2021 GLUCOSE 07/16/2026 07/17/2023, 06/12, 07/06/2023, Additional history exists DTAP/TDAP/TD IMMUNIZATION (3 - Td or Tdap) 11/09/2027 11/08/2017, 05/30/2007 COLONOSCOPY 10/10/2032 10/10/2022 COLORECTAL CANCER SCREENING 10/10/2032 HPV IMMUNIZATION Aged Out No longer e [...] patient's age to complete this topic Procedures The patient is currently admitted. The information in this section might not be complete until the patient is discharged. Procedure Name Priority Date/Time Associated Diagnosis Comments MAGNESIUM Routine 07/17/2023 7:44 AM CDT CBC WITH PLATELETS Routine 07/17/2023 7: 44 AM CDT BASIC METABOLIC PANEL Routine 07/17/2023 7:44 AM CDT MAGNESIUM Routine 07/10/2023 6:09 AM CDT CBC WITH PLATELETS Routine 07/10/2023 6: 09 AM CDT BASIC METABOLIC PANEL Routine 07/10/2023 6:09 AM CDT CBC WITH PLATELETS Routine 07/07/2023 5: 56 AM CDT MAGNESIUM Routine 07/07/2023 5:56 AM CDT BASIC METABOLIC PANEL Routine 07/06/2023 7:00 PM CDT MA DIAGNOSTIC BILATERAL W/ ALEENA Routine 12/08/2021 2:57 PM CDT from Last 3 Months or Most Recently Relevant to Health Maintenance Results * Magnesium (07/17/2023 7:44 AM CDT) Only the most recent of3 resultswithin the time period is included. Magnesium 1.9 1.7 - 2.3 mg/dL 07/17/2023 9:27 AM CDT [facility] Blood STRUCTURE OF LEFT HAND / Unknown Venipuncture / Unknown 07/17/2023 7:44 AM CDT 07/17/2023 8:34 AM CDT Petra AN[facility]ON[facility] - BLOOD ORDERAB LES [facility] [address] [facility], [address] [place] [address] * (ABNORMAL) Basic metabolic panel (07/17/2023 7:44 AM CDT) Only the most recent of3 resultswithin the time period is included. Sodium 142 135 - 145 mmol/L 07/17/2023 9:27 AM CDT [facility] Comment:Reference intervals for this test were updated on 12/06/2022 to more accurately reflect our healthy population. There may be differences in the flagging of prior results with similar values performed with this method. Interpretation of those prior results can be made in the context of the updated reference intervals. Potassium 4.2 3.4 - 5.3 mmol/L 07/17/2023 9:27 AM CDT [facility] Chloride 104 98 - 107 mmol/L 07/17/2023 9:27 AM CDT [facility] Carbon Dioxide (CO2) 26 22 - 29 mmol/L 07/17/2023 9:27 AM CDT [facility] Anion Gap 12 7 - 15 mmol/L 07/17/2023 9:27 AM CDT [facility] Urea Nitrogen 13.5 8.0 - 23.0 mg/dL 07/17/2023 9:27 AM CDT [facility] Creatinine 0.61 0.51 - 0.95 mg/dL 07/17/2023 9:27 AM CDT [facility] GFR Estimate >90 >60 mL/min/1. 73m2 07/17/2023 9:27 AM CDT [facility] Calcium 9.4 8.8 - 10.2 mg/dL 07/17/2023 9:27 AM CDT [facility] Glucose 143(H) 70 - 99 mg/dL 07/17/2023 9:27 AM CDT [facility] Blood STRUCTURE OF LEFT HAND / Unknown Venipuncture / Unknown 07/17/2023 7:44 AM CDT 07/17/2023 8:34 AM CDT Pet[facility] - BLOOD ORDERAB LES [facility] [address] [facility], [address] [place] [address] * (ABNORMAL) CBC with platelets (07/17/2023 7:44 AM CDT) Only the most recent of3 resultswithin the time period is included. WBC Count 4.8 4.0 - 11.0 10e3/uL 07/17/2023 8:38 AM CDT [facility] RBC Count 5.33(H) 3.80 - 5.20 10e6/uL 07/17/2023 8:38 AM CDT [facility] Hemoglobin 15.5 11.7 - 15.7 g/dL 07/17/2023 8:38 AM CDT [facility] Hematocrit 47.4(H) 35.0 - 47.0 % 07/17/2023 8:38 AM CDT [facility] MCV 89 78 - 100 fL 07/17/2023 8:38 AM CDT [facility] MCH 29.1 26.5 - 33.0 pg 07/17/2023 8:38 AM CDT [facility] MCHC 32.7 31.5 - 36.5 g/dL 07/17/2023 8:38 AM CDT [facility] RDW 13.4 10.0 - 15.0 % 07/17/2023 8:38 AM CDT [facility] Platelet Count 252 150 - 450 10e3/uL 07/17/2023 8:38 AM CDT [facility] Blood STRUCTURE OF LEFT HAND / Unknown Venipuncture / Unknown 07/17/2023 7:44 AM CDT 07/17/2023 8:34 AM CDT Pet[facility] ANTH[facility] - BLOOD ORDERAB LES [facility] [address] [facility], [address] [place] [address] from Last 3 Months or Most Recently Relevant to Health Maintenance Advance Directives For more information, please contact: [phone] * Full Code (Latest Code Status on File) Date Activated Date Inactivated Comments 07/06/2023 5:36 PM All basic and advanced life-sustaining interventions are performed as appropriate Question Answer Comments Code status determined by: Discussion with ke saravia/ legal decision maker Care Teams Career Portals Teacher Relationship Specialty Start Date End Date Kyra Perera [address] [place] [address] PCP - General Physician Obstetrics Technician 03/31/22
--- OUTSIDE RECORDS SUMMARY | 2023-07-18 02:04 | XMS_ITS | Continuity of Care Document ---
Author Name Unknown Organization [facility] Address [address] [address] [place] [address] Phone Care Team Providers Care Market Master Name Role Phone Unavailable Unavailable Unavailable Allergies, Adverse Reactions, Alerts Substance Reaction Status Criticality HOMEOPATHIC DRUGS sick Active No Informa tion morphine Nausea/vomiting Active No Informati on Sulfa (Sulfonamide Antibiotics) Hives Active No Information Penicillins throat swells Active No Information WARNIN allergy(ies) could not be collected because the type is not supported. Please contact the source practice for further details. Medications Medication Instructions Dosage Effective Dates (start - stop) Status Comments Amitriptyline 25 mgTABLET One tab every evening. - Active Miralax 17 gram/dose Oral Powder Use as directed - Active Advil unknown as needed - Active Procedures Procedure Date Ugi Endo; W/endo Untrasound Ex 11 Init Hosp-da E&m Mod Severity 1 Offic Cons New/estab Mod-hi 60 07 Routine Serum Collection Offic Cons New/estab Mod- Advance Directives Directive Yes / No Effective Date File Name No Information Encounters Encounter Description Practice Location Reason(s) For Visit Diagnoses Date Provider Providers Copied on Encounter [facility], [address] [address], [place], [id number], [place] tel:[phone] [facility] No Information 1 No Information [facility] [address] [address], [place], [id number], [place] tel:[phone] [facility] No Information 1 No Information Referring Provider: Andrea Thomas, [address], [place], [address]. tel:[phone] Init Hosp-da E&m Mod Severity [facility], [address] [address], [place], [place], [id number], [place] tel:[phone] [facility] No Information 1 Bela Gatica. [address], [id number], [place]. tel:[phone] Referring Provider: Nazanin Allan MD [place], [address] [place] [address], [address]. tel:[phone] Offic Cons New/estab Mod-hi 60 [facility], [address] [address], [facility] [place], [id number], [place] tel:[phone] [facility] Abdominal Pain, UnspecifiedCo nstipation Unspecified 7 Marino De La Cruz. [address], [id number], [place]. tel:[phone] Referring Provider: Iván Sweet MD L, [address], [place], [address]. tel:[phone] [facility], [address] [address], [facility] [place], [id number], [place] tel:[phone] [facility] No Information 5 No Information Offic Cons New/estab Mod- [facility], [address] [address], [facility] [place], [id number], [place] tel:[phone] [facility] Irritable Bowel SyndromeRUQ pain 2 5 No Information Family History Family Member Type Diagnosis Age At Onset First degree family history Problem (finding) No history of Ulcerative Colitis First degree family history Problem (finding) No history of Crohn's First degree family history Problem (finding) diverticulitis of colon First degree family history Problem (finding) No Family history of No history of Colon Polyps First degree family history Problem (finding) No history of Cancer, colon First degree family history Problem (finding) Cirrhosis Payers Payer name Insurance type Covered green party ID Quique [id number](s) [employer] [id number] Social History Type Description Quantity Date Captured [...]
--- OUTSIDE RECORDS SUMMARY | 2023-07-18 02:04 | XMS_ITS | Referral Summary ---
Author Name Unknown Organization [facility] Address [address] [place] [address] Care Team Providers Care Pot Filler Name Role Phone Kyra Perera Primary Care Provider [phone] Encounters Date Type Department Care Team Description 07/06/2023 5:24 PM CDT - Present Hospital Encounter [address] [address] Ibeth Ellison MD Salehi, Parisa, MD Cerebrovascular accident (CVA) due to thrombosis of left middle cerebral artery (H) (Primary Dx); Anxiety; Benign essential hypertension from Last 3 Months Allergies Active Allergy Reactions Criticality Noted Date [...] Noted Date Diagnosed Date Stroke (cerebrum) 07/06/2023 Social History Tobacco Use Types Packs/Day Years [...] Plan of Treatment Not on file Procedures The patient is currently admitted. The [...] LAB - BLOOD ORDERAB LES UR LAB[facility]ATORY [facility] [address] [facility], [address] [place] [address] * (ABNORMAL) Basic metabolic panel (07/17/2023 7:44 [...] LAB - BLOOD ORDERAB LES UR LAB[facility]ATORY [facility], [address] [place] [address] * (ABNORMAL) CBC with platelets (07/17/2023 7:44 [...] LAB - BLOOD ORDERAB LES UR LAB[facility]ATORY [facility] [address] [facility], [address] [place] [address], [facility] from Last 3 Months or Most Recently Relevant to Health Maintenance Advance Directives For more information, please contact: [phone] * Full Code (Latest Code Status on File) Date Activated Date Inactivated Comments 07/06/2023 5:36 PM All basic and advanced life-sustaining interventions are performed as appropriate Question Answer Comments Code status determined by: Discussion with ke nt/ legal decision maker Care Teams Pot Filler Relationship Specialty Start Date End Date Kyra Perera [address] [place] [address] PCP - General Physician Negative Developer 03/31/22
--- OUTSIDE RECORDS SUMMARY | 2023-07-18 02:05 | XMS_ITS | Encounter Summary ---
Author Name Unknown Organization [facility] Address [address] [place] [id number] Care Team Providers Care Training Director Name Role Phone Kyra Perera Primary Care Provider Reason for Visit * Auth/Cert (Routine) Specialty Diagnoses / Procedures Referred By Scott muniz Referred To Contact Rehabilitation Diagnoses 01.2 Right body, left brain involvement stroke; Left centrum semiovale and posterior putamen ischemic stroke [facility] [address] [place] [id number] Referral ID Status Reason Start Date Expiration Date Visits Re quested Visits Authorized [id number] 1 1 Encounter Details Date Type Department Care Team (Latest Contact Info) Description 07/06/2023 5:24 PM CDT - Present Hospital Encounter [facility] [address] [id number] Ibeth Ellison MD [address] [place] [address] Joanie Storey MD [address] [place] [id number] Cerebrovascular accident (CVA) due to thrombosis of left middle cerebral artery (H) (Primary Dx); Anxiety; Benign essential hypertension Social History Tobacco Use Types Packs/Day Years Used Date Smoking Tobacco: Never Assessed Adolescent Education Answer Date Record ed Getting School Help Needed Not on file 12/25 Sex and Gender Information Value Date Recorded Sex Assigned at Not on file Gender Identity Not on file Sexual Orientation Not on file documented as of this encounter Last Filed Vital Signs Vital Sign Reading [...] - - Body Mass Index - - documented in this encounter Progress Notes * Cuco Ramos OT - 07/17/2023 2:02 PM CDT Skilled set up on RT300: Pt dependent for proper placement of electrodes on RUE for optimum muscle contraction, safe positioning on w/c within frame and cushion for prevention of skin breakdown, UE secured to arm support. Passive motion assessed to ensure proper positioning. Pt performed 30 minutes of active FES ergometry with 0-100% stimulation applied to above muscles at25-30 rpm with 0.5-0.96 nm resistance. This OT adjusted e- stim and cycling parameters in real-time to ensure palpable muscle contractions throughout session. Please see [email or web address] for further details on patient's stimulation parameters and ergometry outcomes. Changes in parameters that were part of this treatment: -resistance -pulse width, frequency -amplitude -pedal speed - RUE only for increased weightbearing Functional outcomes from this intervention include: -reduced spasticity -improved sensory awareness and proprioception -improved muscle strength -improved motor coordination Session Summary: -Average Power: 0.5W -Active Minutes: 3:28 * Ibeth Ellison MD - 07/17/2023 9:07 AM CDT [facility] Acute Rehabilitation Unit Daily progress note INTERVAL HISTORY Miya Restrepo was seen this morning at bedside. She had an uneventful weekend and participated inher therapy well. She feels that she is ready for discharge on Monday. We discussed her blood pressure which continues to be elevated. Though SBP remains elevated now ranging 140s-170s which is animprovement. She is agreeable to increase her telmisartan but with twice daily dosing. No issues wit h sleep overnight. She does mention she felt more tired in the morning and during the day with utility of Benadryl. She is requesting if the Benadryl can be switched to as needed. Bowel and bladder are moving adequately. Appetite remains intact. No other concerns or issues verbalized on today's visit. FUNCTIONAL UPDATES: PT: Current Status: Bed Mobility: mod I Transfer: SBA w/out device Gait: SBA w/out device, 300+ ft altho pt prefers using WBQC for security. Stairs: 12 x6'' stairs, single rail, Verna reciprocal stepping Balance: Seated balance static. Intermittent R lean w/ unsupported standing with lessening frequency. Outcome Measures: PASS: 07/07: 07/14: Lyle: 07/07: 3307/14: FGA: 07/14: 01/09 10mWT: 07/14: 0.46 m/sec comfortable, 0.61 m/sec fast w/out device and SBA Assessment: Pt enjoyed walking outdoors today and did well with irregular sidewalk levels. Discussed merits of 4WW down the line for it's ability to expand pt's independence and capacity to transportobjects more easily and safely but recognizing that RUE impairment limits useability of a 4WW at present. Tolerated UE support gear well without pain, requiring CGA<>min A for adequate UE extension stability and PT ensuring appropriate alignment. Continues to require encouragement from PT for training gait without device during sessions, citing fear of falling but willing for therapeutic value. OT: Current Status: ADLs: Mobility: Mod I wc pivots with cane. CGA-Min Ax1 cane-based ambulation. Recommend nursing Min A cane amb in room/to bathroom with A at R side. Grooming: SBA seated. Dressing: UB - IND. LB - Min A. Feet - IND shoes. Bathing: Declined shower; clinically reason transfer CGA pivot wc <> ETB with grab bar and Mod A tasks. Toileting: Transfer Mod I wc <> toilet with grab bar. IND trent cares seated; IND-Min A c/m pending clothing. 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 Contacts. Mildly impulsive. Tangential and attention deficits noted; family reported personality similar. Assessment: Progressed to Mod I wc-based pivots in room. Utilized FES bike to promote RUE sensorimotor function, see POC note for details. MEDICATIONS Current Facility-Administered Medications Medication Dose Route Frequency Provider Last Rate Last Admin ALPRAZolam (XANAX) half-tab 0.125 mg 0.125 mg Oral Daily Ibeth Ellison MD 0.125 mg at 07/17/23 0815 aspirin (ASA) EC tablet 325 mg 325 mg Oral Daily Petra Dorado PA 325 mg at 07/17/23 0821 clopidogrel (PLAVIX) tablet 75 mg 75 mg Oral Daily Petra Dorado PA 75 mg at 07/17/23 0824 diphenhydrAMINE (BENADRYL) capsule 25-50 mg 25-50 mg Oral At Bedtime Ibeth Ellison MD 25 mg at 07/16/232004 metoprolol tartrate (LOPRESSOR) quarter-tab 6.25 mg 6.25 mg Oral BID Petra Dorado PA 6.25 mgat 07/17/23 0815 rosuvastatin (CRESTOR) tablet 5 mg 5 mg Oral Weekly Petra Dorado PA telmisartan (MICARDIS) half-tab 10 mg 10 mg Oral Daily Petra Dorado PA 10 mg at 07/17/23 0815 telmisartan (MICARDIS) tablet 20 mg 20 mg Oral QPM Petra Dorado PA 20 mg at 07/16/232004 Vitamin D3 (CHOLECALCIFEROL) tablet 50 mcg 50 mcg Oral Daily Petra Dorado PA 50 mcg at 07/17/23 0815 Current Facility-Administered Medications Medication Dose Route Frequency Provider Last Rate Last Admin acetaminophen (TYLENOL) tablet 650 mg 650 mg Oral Q4H PRN Joanie Storey MD 650 mg at 07/16/23 1104 ALPRAZolam (XANAX) half-tab 0.125 mg 0.125 mg Oral BID PRN Ibeth Ellison MD 0.125 mg at 07/16/23 1320 bisacodyl (DULCOLAX) suppository 10 mg 10 mg Rectal Daily PRN Petra Dorado PA diclofenac (VOLTAREN) 1 % topical gel 2 g 2 g Topical 4x Daily PRN Ibeth Ellison MD 2 g at 07/17/23 0815 fluticasone (FLONASE) 50 MCG/ACT spray 1 spray 1 spray Both Nostrils BID PRN Petra Dorado PA senna-docusate (SENOKOT-S/PERICOLACE) 8.6-50 MG per tablet 1 tablet 1 tablet Oral BID PRN Petra Dorado PA PHYSICAL EXAM BP (!) 170/73 (BP Location: Left arm, Patient Position: Supine, Cuff Size: Adult Regular) Pulse 68 Temp 97.9 ??F (36.6 ??C) (Oral) Resp 18 Wt 64.6 kg (142 lb 6.4 oz) SpO2 95% Gen: NAD, HEENT: MMM, EOMI Pulm: CTA, nonlabored Abd: Nondistended, nontender Ext: Calves are supple without edema Neuro/MSK: Right hemiparesis, continues to make improvements in motor function of the right upper extremity. Able to flex at the elbow against gravity, extend and flex fingers as well as supination/pronation of the forearm. LABS CBC RESULTS: Recent Labs Lab Test 07/17/23 0744 07/10/23 0609 07/07/23 0556 WBC 4.8 6.0 6.5 RBC 5.33* 5.15 5.08 HGB 15.5 15.0 15.0 HCT 47.4* 44.9 44.7 MCV 89 87 88 MCH 29.1 29.1 29.5 MCHC 32.7 33.4 33.6 RDW 13.4 13.2 13.5 PLT 252 229 208 Last Basic Metabolic Panel: Recent Labs Lab Test 07/10/23 0609 07/06/23 1900 08/16/19 1748 NA 140 141 141 POTASSIUM 4.0 4.1 3.6 CHLORIDE 105 106 109 CO2 24 25 27 ANIONGAP 11 10 5 GLC 94 105* 123* BUN 19.1 18.6 18 CR 0.60 0.56 0.76 GFRESTIMATED >90 >90 80 LIZ 9.1 9.0 8.3* Rehabilitation - continue comprehensive acute inpatient rehabilitation program with multidisciplinary approach including therapies, rehab nursing, and physiatry following. See interval history for updates. Admission to acute inpatient rehab acute left periventricular/putamen stroke. 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 Impairment of ADL's: Noted to have impaired strength, impaired activity tolerance, impaired coordination and impaired safety awareness leading to decreased ability to independently complete ADL's. Will benefit from ongoing OT with goal for MOD I with basic ADLs. Impairment of mobility: Noted to have impaired strength, impaired activity tolerance, and impaired coordination leading to decreased mobility. Will benefit from ongoing PT with goal for IGGY with basic mobility. Impairment of cognition/language/swallow: Noted to have impaired safety awareness, dysarthria, wordfinding difficulties and verbal apraxia will benefit from ongoing MEDICAL SCIENTIFIC LIAISON to improve ability to expressneeds clearly ASSESSMENT AND PLAN Miya Restrepo is a 73 year old right hand dominant woman with past medical history of SHERRIE, HTN, HLD, CAD, anxiety, recurrent chest pain, multiple medication intolerances, and frequent PVCs who presented 06/30/23 with acute right sided weakness and changes in speech she was found to have acute left periventricular/putamen ischemic stroke, on presentation have hypertensive urgency, untreated HLD, stroke felt secondary to small vessel ischemic disease. Course complicated by medication intolerances reported poor response to multiple medications for secondary prevention. Admitted to rehab 07/06/23. Acute ischemic stroke Left Periventricular/Putamen Seen by neurology felt 2/2 small vessel disease- BP up to 224/127 in ED 06/29. A1C 5.9%, 05/03/2023: EF 62%, mild mitral regurgitation, aortic valve tri leaflet & sclerotic, Total cholesterol 268, triglycerides 232, HDL 58, LDL 164 03/2023. asa 325 mg and plavix 75 mg x 21 days then asa 81 mg daily. Exam findings aphasia, right upper extremity apraxia. -HTN management as below -continue ASA 325 mg & Plavix x21 days -HLD-management as below. -continue PT/OT/MEDICAL SCIENTIFIC LIAISON Frequent PVCs Follows with electrophysiology scheduled 07/17/[address] Benz, 7 day zio patch ordered per cardiology 06/23/23 - metoprolol 6.25 mg bid -monitor BMP Anxiety -prior to admission on alprazolam 0.25 mg tid prn, and diazepam prn -Xanax has been changed to 0.125 mg scheduled in a.m. then as needed at afternoon and in the evening. -consider addition of atarax prn- she declines stating not tolerated in past -psychology consult for emotional support per Dr. Jackson 07/10 Miya does appear to struggle withanxiety, however, her insight and willingness to talk about it appear to be challenges that make integrating anxiolytic techniques into her rehab very challenging see note for further details. -scalloper for emotional support -suspect anxiety about reaction to medications contributing to medication intolerance HTN Non obstructive CAD Dyslipidemia Seen by cardiology Dr. Nunez 06/23/23, documented chest pain, does not respond to nitroglycerin, has been seen by multiple providers . On metoprolol 6.25 mg bid and telmisartan 10 mg bid prior to admission -metoprolol 6.25 mg bid. -receiving telmisartan 10 mg q am and 20 mg at bedtime -Will increase telmisartan to 20 mg twice daily. -cardiology considering renal denervation -follow up Dr.Yale Soni Nunez -was trying crestor 5 mg once weekly- slow titration- reports statin intolerance leg weakness and falling down as side effect not willing to continue on statin- interested in PSCK9 inhibitors SHERRIE On CPAP stopped using because of recall -follow up sleep medicine/ obtain new CPAP Allergies/Intolerances Mast Cell Activation Syndrome -patient has intolerance to many antihypertensives and statins, as well as other medications, complicating cares and increasing difficulty getting therapeutic secondary stroke prevention. she has tried/ been on pepcid and flonase in past. -Zyrtec was started during rehab stay, reported lethargy/fatigue with first dose was then changed to be administered at night, felt stimulating and unable to sleep- now discontinued. Using benadryl at bedtime. -Benadryl changed to twice daily at 25 mg as needed. Adjustment to disability: Clinical psychology to eval and treat FEN: reg Bowel: monitor; prn bowel meds Bladder: monitor DVT Prophylaxis: mechanical GI Prophylaxis: none Code: full Disposition: home ELOS: 07/19/23 Rehab prognosis: fair Follow up Appointments on Discharge: pcp, neurology, cardiology, psychology/ psychiatry, PM&R I Ibeth Ellison MD attest to spending over 35 minutes in completion of this document, reviewing chart, seeing and examining patient. * Bhargavi Vicente OT - 07/16/2023 8:49 AM CDT Skilled set up on RT300: Pt dependent for proper placement of electrodes on RUE for optimum muscle contraction, safe positioning on w/c within frame and cushion for prevention of skin breakdown, UE secured to arm support. Passive motion assessed to ensure proper positioning. Pt performed 24 minutes of active FES ergometry with 0-100% stimulation applied to above muscles at25-30 rpm with 0.5-0.96 nm resistance. This OT adjusted e- stim and cycling parameters in real-time to ensure palpable muscle contractions throughout session. Please see [email or web address] for further details on patient's stimulation parameters and ergometry outcomes. Changes in parameters that were part of this treatment: -resistance -pulse width, frequency -amplitude -pedal speed Functional outcomes from this intervention include: -reduced spasticity -improved sensory awareness and proprioception -improved muscle strength -improved motor coordination * Bhargavi Vicente OT - 07/16/2023 8:46 AM CDT [facility]: Discharge Plan: daughter's home with A; OP OT Precautions: falls, R caitlin shoulder, BP OK for therapy if systolic <200 and asymptomatic. Daughters OK to A pt with toileting. Current Status: ADLs: Mobility: Cane-based amb CGA-Min A. Recommend nursing Min A cane amb in room/to bathroom with A at R side, -based hallway. Grooming: Min A standing. Dressing: UB - Mod A. LB - Mod A. Feet - SBA using shoe horn for shoes. Bathing: Declined shower; clinically reason transfer CGA pivot wc <> ETB with grab bar and Mod A tasks. Toileting: Transfer amb cane <> commode overlay Min A. SBA cares seated, CGA-Min A c/m. Recommend nsg amb Min A cane <> commode overlay, guard R side. 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 Contacts. R inattention noted. Mildly impulsive. Tangential and attention deficits noted; family reported personality similar. Assessment: Utilized FES for RUE neuro re-education and sensorimotor skills; refer to care plan note for further details. Other Barriers to Discharge (DME, Family Training, etc): Level of A. Home environment: Daughter's home initially; flight of stairs to mother in law suite with WIS. [place] able to provide daytime A. Family training: Thursday 07/13 with yin Lawson PT/MEDICAL SCIENTIFIC LIAISON/OT - completed. DME: Owns shower chair. Pt family to order bed assist rail (preference), pressurized suction grab bar, and potential ETB. * Elijah Davis, PT - 07/15/2023 4:12 PM CDT 07/15/23 1500 Signing Clinician's Name / Credentials Signing clinician's name / credentials Elijah Davis DPT Functional Gait Assessment (Rehana Matt, Bharathi, GBernie F., et al. (2004)) 1. GAIT LEVEL SURFACE 1 2. CHANGE IN GAIT SPEED 2 3. GAIT WITH HORIZONTAL HEAD TURNS 1 4. GAIT WITH VERTICAL HEAD TURNS 2 5. GAIT AND PIVOT TURN 2 6. STEP OVER OBSTACLE 0 7. GAIT WITH NARROW BASE OF SUPPORT 0 8. GAIT WITH EYES CLOSED 0 9. AMBULATING BACKWARDS 1 10. STEPS 1 Total Functional Gait Assessment Score TOTAL SCORE: (MAXIMUM SCORE 30) 10 Functional Gait Assessment (FGA): The FGA assesses postural stability during various walking tasks. Gait assistive device used: None Scores of <22 /30 have been correlated with predicting falls in community- dwelling older adults according to Shaka & Shun 2010. Scores of <18 /30 have been correlated with increased risk for falls in patients with ParkinsonsDisease according to Enrique García Zhou et al 2014. Minimal Detectable Change for patients with acute/chronic stroke = 4.2 according to Alissa & Randy 2009 Minimal Detectable Change for patients with vestibular disorder = 8 according to Shaka & Shun 2010 * Elijah Davis, PT - 07/15/2023 4:10 PM CDT 07/15/23 1400 Signing Clinician's Name / Credentials Signing clinician's name / credentials Elijah Davis DPBen Lyle Balance Scale (WERO Lombardi, ROBBIN S, KAY KUMAR, PIERRE, B: MEASURING BALANCE IN THE ELDERLY: VALIDATION OF AN INSTRUMENT. CAN. J. PUB. HEALTH, SUPPLEMENT 2:S7-11, 1991.) Sit To Stand 4 Standing Unsupported 4 Sitting Unsupported 4 Stand to Sit 4 Transfers 4 Standing with Eyes Closed 4 Standing Unsupported, Feet Together 3 Reach Forward With Outstretched Arm 3 Retrieve Object From Floor 3 Turning to Look Behind 4 Turn 360 Degrees 2 Placing Alternate Foot on Stool (4-6 inches) 0 Unsupported Tandem Stand (Demonstrate to Subject) 2 One Leg Stand 0 Total Score (A score of 45 or less has been correlated with an increased risk of falls) Total Score (out of 56) 41 Lyle Balance Scale (BBS) Cutoff Scores for CVA Population: The BBS is a measure of static and dynamic standing balance that has been validated in community dwelling elderly individuals and individuals who have Parkinson's Disease, MS, and those who are s/p CVA and TBI. The test is administered without an assistive device. Scores from the Lyle are used to de termine the probability of falling based on the patient's previous history of falls and their test performance. 0-20 High risk for falling- Corresponded with w/c bound status 21-40 Medium risk for falling- Able to walk with assistance 41-56 Low risk for falling- Able to walk independently According to [facility]. Available at http://www.strokecenter.org/. Accessibility verified 2012. Minimal Detectable Change = 6.5 according to Aamir & Raymond 2008 10 Meter Walk Test: Setup - using open 10 [address]. Can be setup individually or using guo along base board of East hallway between PT and OT gyms. Instructions - comfortable/self chosen pace: Walk at your own comfortable walking pace and stop when you reach the end, and fast pace: Walk as fast as you can safely walk and stop when you reach the end. Time was started as the lead foot crossed the 2 meter felipe and finished as the patient's lead foot crossed the 8 meter felipe. Assistive Device: None Assist Provided: SBA Average Speed for Comfortable Pace - 0.46 m/sec Average Speed for Fast Pace - 0.61 m/sec Normative Data: Spinal Cord Injury - MDC - 0.13 m/s (Roger et al, 2008) MCID - 0.06 m/s (Mason et al, 2007) 0.13 m/s (Roger et al, 2008) Gait Speed for Community Dwellers - Enrique et al, 2005 Low Gait Speed - <0.7 m/sec Mean Gait Speed - 0.7-1.0 m/sec High Functioning Gait Speed - >1.1 m/sec * Mily Cesar MD - 07/15/2023 9:28 AM CDT Images from the original note were not included. [facility] Acute Rehabilitation Unit Daily progress note INTERVAL HISTORY Miya Restrepo was seen and examined in her room this morning. No concerns reported. FUNCTIONAL UPDATES: PT: Current Status: Bed Mobility: Iggy Transfer: SBA w/ NBQC cane or w/o AD Gait: >300' CGA w/ NBQC, OK to amb to bathroom with nsg and quad cane and Gait belt. Stairs: 12 x6'' stairs, single rail, Verna reciprocal stepping Balance: Seated balance static. Intermittent R lean w/ unsupported standing Outcome Measures: PASS: 07/07: Lyle: 07/07: Assessment: Family training with pt two daughters today on stairs, car transfer, gait, and general recommendations for OP therapy and DME. Daughters will benefit from onging family training for stairs navigation. Discharge date adjusted to 07/18. PM- pt preference for quad cane, but improved speed and step-through patterning with hurrycane/tripod cane. Pt agreeable to use this (vs no AD) as tool in therapy to challenge but continues to choosequad cane for in-room mobility. OT: Current Status: ADLs: Mobility: Cane-based amb CGA-Min A. Recommend nursing Min A cane amb in room/to bathroom with A at R side, wc-based hallway. Grooming: Min A standing. Dressing: UB - Mod A. LB - Mod A. Feet - SBA using shoe horn for shoes. Bathing: Declined shower; clinically reason transfer CGA pivot wc <> ETB with grab bar and Mod A tasks. Toileting: Transfer amb cane <> commode overlay Min A. SBA cares seated, CGA-Min A c/m. Recommend nsg amb Min A cane <> commode overlay, guard R side. 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 Contacts. R inattention noted. Mildly impulsive. Tangential and attention deficits noted; family reported personality similar. Assessment: Family training completed. Discharge date extended to 07/18 for environmental readiness and target increased performance with elements of functional mobility including goal for Mod I wc pivots toileting transfer. MEDICAL SCIENTIFIC LIAISON: Current Status: Hearing: WFL Vision: wears contacts/glassse Communication: Mild-moderate spastic dysarthria with 90% intelligibility in conversation. Word-finding is WFL. Cognition: Pt/family reports at baseline. Not assessed at ARU. Swallow: Regular diet/thin liquids. Not assessed at ARU. Assessment: Pt and family present for training. Education provided on pt progress, dysarthria strategies, and tasks to complete at home with family at va to continue targeting dysarthria. MEDICAL SCIENTIFIC LIAISON addressed all concerns/?. Provided pt and famiyl with HEP MEDICATIONS Current Facility-Administered Medications Medication Dose Route Frequency Provider Last Rate Last Admin ALPRAZolam (XANAX) half-tab 0.125 mg 0.125 mg Oral Daily Novin, Ali, MD 0.125 mg at 07/15/23 0759 aspirin (ASA) EC tablet 325 mg 325 mg Oral Daily Petra Dorado PA 325 mg at 07/15/23 0759 clopidogrel (PLAVIX) tablet 75 mg 75 mg Oral Daily Petra Dorado PA 75 mg at 07/15/23 0759 diphenhydrAMINE (BENADRYL) capsule 25-50 mg 25-50 mg Oral At Bedtime Ibeth Ellison MD 25 mg at 07/14/23 205 metoprolol tartrate (LOPRESSOR) quarter-tab 6.25 mg 6.25 mg Oral BID Petra Dorado PA 6.25 mgat 07/15/23 0801 rosuvastatin (CRESTOR) tablet 5 mg 5 mg Oral Weekly Petra Dorado PA telmisartan (MICARDIS) half-tab 10 mg 10 mg Oral Daily Petra Dorado PA 10 mg at 07/15/23 075 telmisartan (MICARDIS) tablet 20 mg 20 mg Oral QPM Petra Dorado PA 20 mg at 07/14/23 205 Vitamin D3 (CHOLECALCIFEROL) tablet 50 mcg 50 mcg Oral Daily Petra Dorado PA 50 mcg at 07/15/23 0758 Current Facility-Administered Medications Medication Dose Route Frequency Provider Last Rate Last Admin acetaminophen (TYLENOL) tablet 650 mg 650 mg Oral Q4H PRN Joanie Storey MD 650 mg at 07/14/23 1155 ALPRAZolam (XANAX) half-tab 0.125 mg 0.125 mg Oral BID PRN Ibeth Ellison MD bisacodyl (DULCOLAX) suppository 10 mg 10 mg Rectal Daily PRN Petra Dorado PA diclofenac (VOLTAREN) 1 % topical gel 2 g 2 g Topical 4x Daily PRN Ibeth Ellison MD 2 g at 07/15/23 0759 fluticasone (FLONASE) 50 MCG/ACT spray 1 spray 1 spray Both Nostrils BID PRN Petra Dorado PA senna-docusate (SENOKOT-S/PERICOLACE) 8.6-50 MG per tablet 1 tablet 1 tablet Oral BID PRN Petra Dorado PA PHYSICAL EXAM BP (!) 171/87 (BP Location: Right arm, Patient Position: Chair, Cuff Size: Adult Regular) Pulse 92 Temp 97.6 ??F (36.4 ??C) (Oral) Resp 18 Wt 64.6 kg (142 lb 6.4 oz) SpO2 95% Gen: NAD, HEENT: MMM, EOMI Pulm: non labored Abd: , nondistended Ext: Calves are supple without edema Neuro/MSK: Right hemiparesis, continues to make improvements in motor function of the right upper extremity. LABS CBC RESULTS: Recent Labs Lab Test 07/10/23 0609 07/07/23 0556 08/16/19 1748 WBC 6.0 6.5 5.9 RBC 5.15 5.08 5.11 HGB 15.0 15.0 15.0 HCT 44.9 44.7 44.9 MCV 87 88 88 MCH 29.1 29.5 29.4 MCHC 33.4 33.6 33.4 RDW 13.2 13.5 13.2 PLT 229 208 225 Last Basic Metabolic Panel: Recent Labs Lab Test 07/10/23 0609 07/06/23 1900 08/16/19 1748 NA 140 141 141 POTASSIUM 4.0 4.1 3.6 CHLORIDE 105 106 109 CO2 24 25 27 ANIONGAP 11 10 5 GLC 94 105* 123* BUN 19.1 18.6 18 CR 0.60 0.56 0.76 GFRESTIMATED >90 >90 80 LIZ 9.1 9.0 8.3* Rehabilitation - continue comprehensive acute inpatient rehabilitation program with multidisciplinary approach including therapies, rehab nursing, and physiatry following. See interval history for updates. Admission to acute inpatient rehab acute left periventricular/putamen stroke. 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 Impairment of ADL's: Noted to have impaired strength, impaired activity tolerance, impaired coordination and impaired safety awareness leading to decreased ability to independently complete ADL's. Will benefit from ongoing OT with goal for MOD I with basic ADLs. Impairment of mobility: Noted to have impaired strength, impaired activity tolerance, and impaired coordination leading to decreased mobility. Will benefit from ongoing PT with goal for IGGY with basic mobility. Impairment of cognition/language/swallow: Noted to have impaired safety awareness, dysarthria, wordfinding difficulties and verbal apraxia will benefit from ongoing MEDICAL SCIENTIFIC LIAISON to improve ability to expressneeds clearly ASSESSMENT AND PLAN Miya Restrepo is a 73 year old right hand dominant woman with past medical history of SHERRIE, HTN, HLD, CAD, anxiety, recurrent chest pain, multiple medication intolerances, and frequent PVCs who presented 06/30/23 with acute right sided weakness and changes in speech she was found to have acute left periventricular/putamen ischemic stroke, on presentation have hypertensive urgency, untreated HLD, stroke felt secondary to small vessel ischemic disease. Course complicated by medication intolerances reported poor response to multiple medications for secondary prevention. Admitted to rehab 07/06/23. Acute ischemic stroke Left Periventricular/Putamen Seen by neurology felt 2/2 small vessel disease- BP up to 224/127 in ED 06/29. A1C 5.9%, 05/03/2023: EF 62%, mild mitral regurgitation, aortic valve tri leaflet & sclerotic, Total cholesterol 268, triglycerides 232, HDL 58, LDL 164 03/2023. asa 325 mg and plavix 75 mg x 21 days then asa 81 mg daily. Exam findings aphasia, right upper extremity apraxia. -HTN management as below -continue ASA 325 mg & Plavix x21 days -HLD-management as below. -continue PT/OT/MEDICAL SCIENTIFIC LIAISON Frequent PVCs Follows with electrophysiology scheduled 07/17/[address] Benz, 7 day zio patch ordered per cardiology 06/23/23 - metoprolol 6.25 mg bid -monitor BMP Anxiety -prior to admission on alprazolam 0.25 mg tid prn, and diazepam prn -Xanax has been changed to 0.125 mg scheduled in a.m. then as needed at afternoon and in the evening. -consider addition of atarax prn- she declines stating not tolerated in past -psychology consult for emotional support, scalloper for emotional support -suspect anxiety (worry about reaction to medications) contributing to medication intolerance HTN Non obstructive CAD Dyslipidemia Seen by cardiology Dr. Nunez 06/23/23, documented chest pain, does not respond to nitroglycerin, has been seen by multiple providers . On metoprolol 6.25 mg bid and telmisartan 10 mg bid prior to admission -metoprolol 6.25 mg bid. -receiving telmisartan 10 mg bid not on formulary here-- increased telmisartan 10 mg q am and 20 mgat bedtime - she tried 07/09 had shortness of breath, throat swelling response- she is now interested in repeat trial 07/12 (10 mg q am and 20 mg q pm) -cardiology considering renal denervation -follow up Dr.Yale Soni Nunez -was trying crestor 5 mg once weekly- slow titration- reports statin intolerance leg weakness and falling down as side effect not willing to continue on statin- interested in PSCK9 inhibitors SHERRIE On CPAP stopped using because of recall -follow up sleep medicine/ obtain new CPAP Allergies/Intolerances Mast Cell Activation Syndrome -patient has intolerance to many antihypertensives and statins, as well as other medications, complicating cares and increasing difficulty getting therapeutic secondary stroke prevention. Appears shehas tried/ been on pepcid and flonase in past. -Zyrtec has been discontinued as per patient's request and patient will be utilizing Benadryl as needed at nighttime. Adjustment to disability: Clinical psychology to eval and treat FEN: reg Bowel: monitor; prn bowel meds Bladder: monitor; will check PVRs DVT Prophylaxis: mechanical GI Prophylaxis: none Code: full Disposition: home ELOS: 7-10 days . Rehab prognosis: fair Follow up Appointments on Discharge: pcp, neurology, cardiology, psychology/ psychiatry, PM&R 30 minutes spent on the date of service doing chart review, history and exam, documentation, and further activities as noted above. * Bhargavi Vicente, PAM - 07/15/2023 9:16 AM CDT [employer] stim unit for Activity Based Therapy. Skilled set up; determined appropriate FES parameters for each muscle group based off of strong tetanic response of muscle test. Used the following activities from the software library: hand Intervention and patient response:Pt completed 100 repetitions x2 sets of grasp/release with writerguiding through transitional movements with RUE. Pt completed 50 repetitions x1 set of lumbrical grasp with aligner typewriter guiding through transitional movements. * Sujata Randle RD - 07/14/2023 9:52 AM CDT CLINICAL NUTRITION SERVICES Reviewed nutrition risk factors due to LOS. Pt is tolerating diet, eating well per nursing documentation (75-100% per flowsheets). Pt ordering from room service and receiving meals from home. Weight stable over past year. No nutrition issues identified at this time. RD will follow via rounds at this time, unless consulted. Sujata Randle RD, LD Available via phone and If You Canera Vocera: 5R Acute Rehab Clinical Dietitian Weekend/Holiday Vocera: Weekend Holiday Clinical Dietitian [Multi Site Groups] * Vanessa Escalera HIDE BUFFER - 07/14/2023 8:31 AM CDT Received two calls from pt dtr Fatemeh this morning before 9:30am. Calls totaled 40 minutes. Fatemeh had many questions about follow-up apts, meeting today (team rounds), and SW involvement in discharge plans. Questions answered to the best of SW ability, some questions deferred to others and pt dtr understanding. Pt dtr expressed feeling frustrated due to communication amongst staff, interruptionsto pt when trying to rest, inconsistencies, staff talking about a discharge date this weekend, PT session not taking place this morning, misunderstanding of team rounds this morning (and feeling theydidn't understand what the meeting was and why other team members wouldn't be a part of it), and feeling trust broken. SW escalated pt dtr concerns and provided empathic listening. DIOMEDES explained to ptdtr how SW would try to relieve some of her frustrations by adding some information to treatment team and provider sticky notes, as well as providing an update to direct team members and COMMERCIAL SINGER (RE: foll ow-up apts). Assuming that pt discharge date will be extended, per pt dtr request and communicationfrom [facility] staff, pt dtr requested to meet with this aligner typewriter in person on 07/17 AM before noon. SW made note to self and will follow-up. During these calls with pt dtr, pt dtr also expressed frustration with lack of SW involvement. SW notified pt dtr that SW met with pt at time of admission and that pt other dtr and son were present. Notified pt dtr of SW hours, SW role in discharge planning (pt planning to do OP, which is coordinated by therapy), SW role in meet with pt 24-48 hours before discharge, and that SW had given pt SW business card at time of admission. Pt dtr acknowledged that SW card given to pt, as that is how she got SW number. Encouraged pt dtr to call if additional needs arise. SW will plan to follow-up next week and remain available. ADDENDUM: Met pt dtr in [place] at end of the day. Dtr leaving. SW introduced self since. Dtr apologized and stated that today went well and on track for discharge 07/18. SW will still plan to meet with pt and pt family on 07/17 and remain available. No other needs requested. SALMA Figueroa [facility] Acute Inpatient Rehab Inspecting Machine Adjuster PH: [phone] & Email: [email or web address] * Ibeth Ellison MD - 07/14/2023 7:52 AM CDT [facility] Acute Rehabilitation Unit Daily progress note INTERVAL HISTORY Miya Restrepo was seen and examined in her room this morning in the presence of her significant other and 2 daughters. Overall she is doing reasonably well has made notable improvements. She is happy with her rehab course. We had a rather lengthy discussion with regards to her current medicationsand her specific desire to change the current regiment. She is requesting that her Benadryl to be put as needed at 25 to 50 mg. She wants to discontinue her Zyrtec. She is asking for her Xanax to be scheduled for the morning and as needed in the afternoon and in the evening. We also discussed tighter blood pressure control and she is in agreement to increase her blood pressure medications to her tolerance. We also reviewed her follow-ups as well as signs and symptoms to seek immediate help in the context of possible second stroke. FUNCTIONAL UPDATES: PT: Current Status: Bed Mobility: Iggy Transfer: SBA w/ NBQC cane or w/o AD Gait: >300' CGA w/ NBQC, OK to amb to bathroom with nsg and quad cane and Gait belt. Stairs: 12 x6'' stairs, single rail, Verna reciprocal stepping Balance: Seated balance static. Intermittent R lean w/ unsupported standing Outcome Measures: PASS: 07/07: Lyle: 07/07: Assessment: Family training with pt two daughters today on stairs, car transfer, gait, and general recommendations for OP therapy and DME. Daughters will benefit from onging family training for stairs navigation. Discharge date adjusted to 07/18. PM- pt preference for quad cane, but improved speed and step-through patterning with hurrycane/tripod cane. Pt agreeable to use this (vs no AD) as tool in therapy to challenge but continues to choosequad cane for in-room mobility. OT: Current Status: ADLs: Mobility: Cane-based amb CGA-Min A. Recommend nursing Min A cane amb in room/to bathroom with A at R side, wc-based hallway. Grooming: Min A standing. Dressing: UB - Mod A. LB - Mod A. Feet - SBA using shoe horn for shoes. Bathing: Declined shower; clinically reason transfer CGA pivot wc <> ETB with grab bar and Mod A tasks. Toileting: Transfer amb cane <> commode overlay Min A. SBA cares seated, CGA-Min A c/m. Recommend nsg amb Min A cane <> commode overlay, guard R side. 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 Contacts. R inattention noted. Mildly impulsive. Tangential and attention deficits noted; family reported personality similar. Assessment: Family training completed. Discharge date extended to 07/18 for environmental readiness and target increased performance with elements of functional mobility including goal for Mod I wc pivots toileting transfer. MEDICAL SCIENTIFIC LIAISON: Current Status: Hearing: WFL Vision: wears contacts/glassse Communication: Mild-moderate spastic dysarthria with 90% intelligibility in conversation. Word-finding is WFL. Cognition: Pt/family reports at baseline. Not assessed at ARU. Swallow: Regular diet/thin liquids. Not assessed at ARU. Assessment: Pt and family present for training. Education provided on pt progress, dysarthria strategies, and tasks to complete at home with family at [place] to continue targeting dysarthria. MEDICAL SCIENTIFIC LIAISON addressed all concerns/?. Provided pt and famiyl with HEP MEDICATIONS Current Facility-Administered Medications Medication Dose Route Frequency Provider Last Rate Last Admin ALPRAZolam (XANAX) half-tab 0.125 mg 0.125 mg Oral TID Petra Dorado PA 0.125 mg at 07/13/23 221 aspirin (ASA) EC tablet 325 mg 325 mg Oral Daily Petra Dorado PA 325 mg at 07/13/23 0832 cetirizine (zyrTEC) solution 5 mg 5 mg Oral At Bedtime Petra Dorado PA 5 mg at 07/13/232057 clopidogrel (PLAVIX) tablet 75 mg 75 mg Oral Daily Petra Dorado PA 75 mg at 07/13/2333 metoprolol tartrate (LOPRESSOR) quarter-tab 6.25 mg 6.25 mg Oral BID Petra Dorado PA 6.25 mgat 07/13/232054 rosuvastatin (CRESTOR) tablet 5 mg 5 mg Oral Weekly Petra Dorado PA telmisartan (MICARDIS) half-tab 10 mg 10 mg Oral Daily Petra Dorado PA telmisartan (MICARDIS) tablet 20 mg 20 mg Oral QPM Petra Dorado PA 20 mg at 07/13/232054 Vitamin D3 (CHOLECALCIFEROL) tablet 50 mcg 50 mcg Oral Daily Petra Dorado PA 50 mcg at 07/13/23 0833 Current Facility-Administered Medications Medication Dose Route Frequency Provider Last Rate Last Admin acetaminophen (TYLENOL) tablet 650 mg 650 mg Oral Q4H PRN Joanie Storey MD 650 mg at 07/13/23 1616 ALPRAZolam (XANAX) tablet 0.25 mg 0.25 mg Oral Daily PRN Petra Dorado PA bisacodyl (DULCOLAX) suppository 10 mg 10 mg Rectal Daily PRN Petra Dorado PA diclofenac (VOLTAREN) 1 % topical gel 2 g 2 g Topical 4x Daily PRN Ibeth Ellison MD diphenhydrAMINE (BENADRYL) capsule 25-50 mg 25-50 mg Oral Q6H PRN Petra Dorado PA fluticasone (FLONASE) 50 MCG/ACT spray 1 spray 1 spray Both Nostrils BID PRN Petra Dorado PA melatonin tablet 3 mg 3 mg Oral At Bedtime PRN Petra Dorado PA senna-docusate (SENOKOT-S/PERICOLACE) 8.6-50 MG per tablet 1 tablet 1 tablet Oral BID PRN Petra Dorado PA PHYSICAL EXAM BP (!) 164/91 (BP Location: Left arm) Pulse 89 Temp 97.5 ??F (36.4 ??C) (Oral) Resp 20 Wt 64.6 kg (142 lb 6.4 oz) SpO2 98% Gen: NAD, HEENT: MMM, EOMI Pulm: non labored Abd: , nondistended Ext: Calves are supple without edema Neuro/MSK: Right hemiparesis, continues to make improvements in motor function of the right upper extremity. LABS CBC RESULTS: Recent Labs Lab Test 07/10/23 0609 07/07/23 0556 08/16/19 1748 WBC 6.0 6.5 5.9 RBC 5.15 5.08 5.11 HGB 15.0 15.0 15.0 HCT 44.9 44.7 44.9 MCV 87 88 88 MCH 29.1 29.5 29.4 MCHC 33.4 33.6 33.4 RDW 13.2 13.5 13.2 PLT 229 208 225 Last Basic Metabolic Panel: Recent Labs Lab Test 07/10/23 0609 07/06/23 1900 08/16/19 1748 NA 140 141 141 POTASSIUM 4.0 4.1 3.6 CHLORIDE 105 106 109 CO2 24 25 27 ANIONGAP 11 10 5 GLC 94 105* 123* BUN 19.1 18.6 18 CR 0.60 0.56 0.76 GFRESTIMATED >90 >90 80 LIZ 9.1 9.0 8.3* Rehabilitation - continue comprehensive acute inpatient rehabilitation program with multidisciplinary approach including therapies, rehab nursing, and physiatry following. See interval history for updates. Admission to acute inpatient rehab acute left periventricular/putamen stroke. 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 Impairment of ADL's: Noted to have impaired strength, impaired activity tolerance, impaired coordination and impaired safety awareness leading to decreased ability to independently complete ADL's. Will benefit from ongoing OT with goal for MOD I with basic ADLs. Impairment of mobility: Noted to have impaired strength, impaired activity tolerance, and impaired coordination leading to decreased mobility. Will benefit from ongoing PT with goal for IGGY with basic mobility. Impairment of cognition/language/swallow: Noted to have impaired safety awareness, dysarthria, wordfinding difficulties and verbal apraxia will benefit from ongoing MEDICAL SCIENTIFIC LIAISON to improve ability to expressneeds clearly ASSESSMENT AND PLAN Miya Restrepo is a 73 year old right hand dominant woman with past medical history of SHERRIE, HTN, HLD, CAD, anxiety, recurrent chest pain, multiple medication intolerances, and frequent PVCs who presented 06/30/23 with acute right sided weakness and changes in speech she was found to have acute left periventricular/putamen ischemic stroke, on presentation have hypertensive urgency, untreated HLD, stroke felt secondary to small vessel ischemic disease. Course complicated by medication intolerances reported poor response to multiple medications for secondary prevention. Admitted to rehab 07/06/23. Acute ischemic stroke Left Periventricular/Putamen Seen by neurology felt 2/2 small vessel disease- BP up to 224/127 in ED 06/29. A1C 5.9%, 05/03/2023: EF 62%, mild mitral regurgitation, aortic valve tri leaflet & sclerotic, Total cholesterol 268, triglycerides 232, HDL 58, LDL 164 03/2023. asa 325 mg and plavix 75 mg x 21 days then asa 81 mg daily. Exam findings aphasia, right upper extremity apraxia. -HTN management as below -continue ASA 325 mg & Plavix x21 days -HLD-management as below. -continue PT/OT/MEDICAL SCIENTIFIC LIAISON Frequent PVCs Follows with electrophysiology scheduled 07/17/[address] Benz, 7 day zio patch ordered per cardiology 06/23/23 - metoprolol 6.25 mg bid -monitor BMP Anxiety -prior to admission on alprazolam 0.25 mg tid prn, and diazepam prn -Xanax has been changed to 0.125 mg scheduled in a.m. then as needed at afternoon and in the evening. -consider addition of atarax prn- she declines stating not tolerated in past -psychology consult for emotional support, scalloper for emotional support -suspect anxiety (worry about reaction to medications) contributing to medication intolerance HTN Non obstructive CAD Dyslipidemia Seen by cardiology Dr. Nunez 06/23/23, documented chest pain, does not respond to nitroglycerin, has been seen by multiple providers . On metoprolol 6.25 mg bid and telmisartan 10 mg bid prior to admission -metoprolol 6.25 mg bid. -receiving telmisartan 10 mg bid not on formulary here-- increased telmisartan 10 mg q am and 20 mgat bedtime - she tried 07/09 had shortness of breath, throat swelling response- she is now interested in repeat trial 07/12 (10 mg q am and 20 mg q pm) -cardiology considering renal denervation -follow up Dr.Yale Soni Nunez -was trying crestor 5 mg once weekly- slow titration- reports statin intolerance leg weakness and falling down as side effect not willing to continue on statin- interested in PSCK9 inhibitors SHERRIE On CPAP stopped using because of recall -follow up sleep medicine/ obtain new CPAP Allergies/Intolerances Mast Cell Activation Syndrome -patient has intolerance to many antihypertensives and statins, as well as other medications, complicating cares and increasing difficulty getting therapeutic secondary stroke prevention. Appears shehas tried/ been on pepcid and flonase in past. -Zyrtec has been discontinued as per patient's request and patient will be utilizing Benadryl as needed at nighttime. Adjustment to disability: Clinical psychology to eval and treat FEN: reg Bowel: monitor; prn bowel meds Bladder: monitor; will check PVRs DVT Prophylaxis: mechanical GI Prophylaxis: none Code: full Disposition: home ELOS: 7-10 days . Rehab prognosis: fair Follow up Appointments on Discharge: pcp, neurology, cardiology, psychology/ psychiatry, PM&R I Ibeth Ellison MD attest to spending over 40 minutes in completion of this document, reviewing chart, seeing and examining patient. * aVnessa Escalera LICSW - 07/13/2023 10:29 AM CDT Team rounds. Targeting discharge 07/16/23. Family training tomorrow, Mon07/14/23. May considerextending an extra day or two, pending training. Planning for OP at discharge. SW will meet with ptbefore discharge to complete IRF and IMM. No other SW needs identified at this time. Will continue to follow and remain available. SALMA Figueroa [facility] Acute Inpatient Rehab Inspecting Machine Adjuster PH: [phone] & Email: [email or web address] * Petra Dorado PA - 07/13/2023 7:53 AM CDT Images from the original note were not included. [facility] Acute Rehabilitation Unit Daily progress note INTERVAL HISTORY Miya Restrepo was seen during team rounds daughter present for duration of visit. Medically BP remains above goal- titration remains limited by medication intolerance/ reactions with dose changes. Zyrtec changed to pm as felt made her drowsy during daytime dosing. Would like to retry telmisartan 10 mg am and 20 mg q pm- Making great progress in therapy, working on mild dysarthria with speech. Working on stairs cga-minassist with PT, transfers cga. Walking cga with cane. Family asking questions about medication management, plan for choleteserol. Planning for family training 07/13- considering extending discharge a few days to improve independence. See rounds note by Dr. Ellison for further details. MEDICATIONS Current Facility-Administered Medications Medication Dose Route Frequency Provider Last Rate Last Admin ALPRAZolam (XANAX) half-tab 0.125 mg 0.125 mg Oral TID Petra Dorado PA 0.125 mg at 07/12/23 1352 aspirin (ASA) EC tablet 325 mg 325 mg Oral Daily Petra Dorado PA 325 mg at 07/12/23 0812 cetirizine (zyrTEC) solution 5 mg 5 mg Oral Daily Petra Dorado PA 5 mg at 07/12/23 0813 clopidogrel (PLAVIX) tablet 75 mg 75 mg Oral Daily Petra Dorado PA 75 mg at 07/12/23 0812 diclofenac (VOLTAREN) 1 % topical gel 2 g 2 g Topical 4x Daily Ibeth Ellison MD 2 g at 07/13/23 0640 metoprolol tartrate (LOPRESSOR) quarter-tab 6.25 mg 6.25 mg Oral BID Petra Dorado PA 6.25 mgat 07/12/23 1946 rosuvastatin (CRESTOR) tablet 5 mg 5 mg Oral Weekly Petra Dorado PA telmisartan (MICARDIS) half-tab 10 mg 10 mg Oral BID Petra Dorado PA 10 mg at 07/13/23 0640 Vitamin D3 (CHOLECALCIFEROL) tablet 50 mcg 50 mcg Oral Daily Petra Dorado PA 50 mcg at 07/12/23 0812 Current Facility-Administered Medications Medication Dose Route Frequency Provider Last Rate Last Admin acetaminophen (TYLENOL) tablet 650 mg 650 mg Oral Q4H PRN Joanie Storey MD 650 mg at 07/12/23 1151 ALPRAZolam (XANAX) tablet 0.25 mg 0.25 mg Oral Daily PRN Petra Dorado PA bisacodyl (DULCOLAX) suppository 10 mg 10 mg Rectal Daily PRN Petra Dorado PA diclofenac (VOLTAREN) 1 % topical gel 2 g 2 g Topical 4x Daily PRN Ibeth Ellison MD diphenhydrAMINE (BENADRYL) capsule 25-50 mg 25-50 mg Oral Q6H PRN Petra Dorado PA fluticasone (FLONASE) 50 MCG/ACT spray 1 spray 1 spray Both Nostrils BID PRN Petra Dorado PA melatonin tablet 3 mg 3 mg Oral At Bedtime PRN Petra Dorado PA senna-docusate (SENOKOT-S/PERICOLACE) 8.6-50 MG per tablet 1 tablet 1 tablet Oral BID PRN Petra Dorado PA PHYSICAL EXAM BP (!) 182/94 (BP Location: Left arm, Patient Position: Sitting) Pulse 79 Temp 97.8 ??F (36.6 ??C) (Oral) Resp 16 Wt 64.7 kg (142 lb 10.2 oz) SpO2 93% Gen: NAD, HEENT: MMM, EOMI Pulm: non labored Abd: , nondistended Ext: Calves are supple without edema Neuro/MSK: Right hemiparesis, LABS CBC RESULTS: Recent Labs Lab Test 07/10/23 0609 07/07/23 0556 08/16/19 1748 WBC 6.0 6.5 5.9 RBC 5.15 5.08 5.11 HGB 15.0 15.0 15.0 HCT 44.9 44.7 44.9 MCV 87 88 88 MCH 29.1 29.5 29.4 MCHC 33.4 33.6 33.4 RDW 13.2 13.5 13.2 PLT 229 208 225 Last Basic Metabolic Panel: Recent Labs Lab Test 07/10/23 0609 07/06/23 1900 08/16/19 1748 NA 140 141 141 POTASSIUM 4.0 4.1 3.6 CHLORIDE 105 106 109 CO2 24 25 27 ANIONGAP 11 10 5 GLC 94 105* 123* BUN 19.1 18.6 18 CR 0.60 0.56 0.76 GFRESTIMATED >90 >90 80 LIZ 9.1 9.0 8.3* Rehabilitation - continue comprehensive acute inpatient rehabilitation program with multidisciplinary approach including therapies, rehab nursing, and physiatry following. See interval history for updates. Admission to acute inpatient rehab acute left periventricular/putamen stroke. 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 Impairment of ADL's: Noted to have impaired strength, impaired activity tolerance, impaired coordination and impaired safety awareness leading to decreased ability to independently complete ADL's. Will benefit from ongoing OT with goal for MOD I with basic ADLs. Impairment of mobility: Noted to have impaired strength, impaired activity tolerance, and impaired coordination leading to decreased mobility. Will benefit from ongoing PT with goal for IGGY with basic mobility. Impairment of cognition/language/swallow: Noted to have impaired safety awareness, dysarthria, wordfinding difficulties and verbal apraxia will benefit from ongoing MEDICAL SCIENTIFIC LIAISON to improve ability to expressneeds clearly ASSESSMENT AND PLAN Miya Restrepo is a 73 year old right hand dominant woman with past medical history of SHERRIE, HTN, HLD, CAD, anxiety, recurrent chest pain, multiple medication intolerances, and frequent PVCs who presented 06/30/23 with acute right sided weakness and changes in speech she was found to have acute left periventricular/putamen ischemic stroke, on presentation have hypertensive urgency, untreated HLD, stroke felt secondary to small vessel ischemic disease. Course complicated by medication intolerances reported poor response to multiple medications for secondary prevention. Admitted to rehab 07/06/23. Acute ischemic stroke Left Periventricular/Putamen Seen by neurology felt 2/2 small vessel disease- BP up to 224/127 in ED 06/29. A1C 5.9%, 05/03/2023: EF 62%, mild mitral regurgitation, aortic valve tri leaflet & sclerotic, Total cholesterol 268, triglycerides 232, HDL 58, LDL 164 03/2023. asa 325 mg and plavix 75 mg x 21 days then asa 81 mg daily. Exam findings aphasia, right upper extremity apraxia. -HTN management as below -continue ASA 325 mg & Plavix x21 days -HLD-management as below. -continue PT/OT/MEDICAL SCIENTIFIC LIAISON Frequent PVCs Follows with electrophysiology scheduled 07/17/[address] Benz, 7 day zio patch ordered per cardiology 06/23/23 - metoprolol 6.25 mg bid -monitor BMP Anxiety -prior to admission on alprazolam 0.25 mg tid prn, and diazepam prn Xanax 0.125 mg tid (reportedly how she is taking), and prn -consider addition of atarax prn- she declines stating not tolerated in past -psychology consult for emotional support, scalloper for emotional support -suspect anxiety (worry about reaction to medications) contributing to medication intolerance HTN Non obstructive CAD Dyslipidemia Seen by cardiology Dr. Nunez 06/23/23, documented chest pain, does not respond to nitroglycerin, has been seen by multiple providers . On metoprolol 6.25 mg bid and telmisartan 10 mg bid prior to admission -metoprolol 6.25 mg bid. -receiving telmisartan 10 mg bid not on formulary here-- increased telmisartan 10 mg q am and 20 mgat bedtime - she tried 07/09 had shortness of breath, throat swelling response- she is now interested in repeat trial 07/12 (10 mg q am and 20 mg q pm) -cardiology considering renal denervation -follow up Dr.Yale Soni Nunez -was trying crestor 5 mg once weekly- slow titration- reports statin intolerance leg weakness and falling down as side effect not willing to continue on statin- interested in PSCK9 inhibitors SHERRIE On CPAP stopped using because of recall -follow up sleep medicine/ obtain new CPAP Allergies/Intolerances Mast Cell Activation Syndrome -patient has intolerance to many antihypertensives and statins, as well as other medications, complicating cares and increasing difficulty getting therapeutic secondary stroke prevention. Appears crystals tried/ been on pepcid and flonase in past. -started zyrtec 5 5 mg at bedtime - liquid per her request. Adjustment to disability: Clinical psychology to eval and treat FEN: reg Bowel: monitor; prn bowel meds Bladder: monitor; will check PVRs DVT Prophylaxis: mechanical GI Prophylaxis: none Code: full Disposition: home ELOS: 7-10 days . Rehab prognosis: fair Follow up Appointments on Discharge: pcp, neurology, cardiology, psychology/ psychiatry, PM&R [facility] I spent a total of 40 minutes [id number]-exmx or managing the care of Miya Restrepo, seen during team rounds. Associated attestation - Ibeth Ellison MD - 07/13/2023 8:03 PM CDT Physician Attestation I saw and evaluated Miya Restrepo as part of a shared ASSISTANT OPERATIONS MANAGER/PA visit. I personally reviewed the vital signs, medications, and labs. I personally provided a substantive portion of care for this patient and I approve the care plan aswritten by the TIMMY. I was involved with Medical Decision Making including: In addition to team rounds (please see my note) I stayed back as patient and daughter had questionsabout target cholesterol levels and stroke risk factors. Along with answering all questions I also reviewed poststroke recovery course along with positive and negative prognostic factors in her case. Please see A&P for additional details of medical decision making. Over 50 minutes were utilized in today's visit with the patient, management and documentation. IBETH ELLISON MD Date of Service (when I saw the patient): 07/13/23 * Cuco Ramos OT - 07/13/2023 7:33 AM CDT Skilled set up on RT300: Pt dependent for proper placement of electrodes on RUE for optimum muscle contraction, safe positioning on w/c within frame and cushion for prevention of skin breakdown, UE secured to arm support. Passive motion assessed to ensure proper positioning. Pt performed 34 minutes of active FES ergometry with 0-100% stimulation applied to above muscles at25-30 rpm with 0.5-0.96 nm resistance. This OT adjusted e- stim and cycling parameters in real-time to ensure palpable muscle contractions throughout session. Please see [email or web address] for further details on patient's stimulation parameters and ergometry outcomes. Changes in parameters that were part of this treatment: -resistance -pulse width, frequency -amplitude -pedal speed - RUE only for increased weightbearing on caitlin side Functional outcomes from this intervention include: -reduced spasticity -improved sensory awareness and proprioception -improved muscle strength -improved motor coordination Session Summary: -Average Power: 0.5 W -Active Minutes: 2:36 * Cuco Ramos OT - 07/11/2023 9:50 AM CDT Skilled set up on RT300: Pt dependent for proper placement of electrodes on RUE for optimum muscle contraction, safe positioning on w/c within frame and cushion for prevention of skin breakdown, UE secured to arm support. Passive motion assessed to ensure proper positioning. Pt performed 30:02 minutes of active FES ergometry with 0-100% stimulation applied to above musclesat 25-30rpm with 0.5-0.86 nm resistance. This OT adjusted e-stim and cycling parameters in real-time to ensure palpable muscle contractions throughout session. Please see [email or web address] for further details on patient's stimulation parameters and ergometry outcomes. Changes in parameters that were part of this treatment: -resistance -pulse width, frequency -amplitude -pedal speed - Use of RUE only for increased weightbearing intensity Functional outcomes from this intervention include: -reduced spasticity -improved sensory awareness and proprioception -improved muscle strength -improved motor coordination Session Summary: -Average Power: 0.5W -Active Minutes: 3:09 * Bisi Gray, MEDICAL SCIENTIFIC LIAISON - 07/11/2023 8:53 AM CDT [facility] MEDICAL SCIENTIFIC LIAISON: Discharge Plan: home with dtr ? 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 Word-finding is WFL. Cognition: Pt/family reports at baseline. Not assessed at ARU. Swallow: Regular diet/thin liquids. Not assessed at ARU. Assessment: Pt able to recall dysarthria strategies via SLOB with 100% accuracy. Pt reported further IND practice with diaphragmic breathing last night. Pt engaged in implementing strategies across structured and unstructured conversation. Pt able to implement with 90% accuracy IND, 100% minimal cues. May reduce frequency as pt improving IND with strategies and remains 100% intelligible in conversation Other Barriers to Discharge (Family Training, etc): None from MEDICAL SCIENTIFIC LIAISON perspective. * Petra Dorado PA - 07/11/2023 7:48 AM CDT Images from the original note were not included. [facility] Acute Rehabilitation Unit Daily progress note INTERVAL HISTORY Miya Restrepo was seen sitting up on nu-step in gym. Daughter, Fatemeh present for part of visit. Miya reports she tried 20 mg telmisartan 07/09 reported sob/ throat closure about 45 minutes after taking, consistent with prior experience with 20 mg of telmisartan, she reports it improved with benadryl but not interested in trying again tonight. -wonder if she has tried antihistamines- zyrtec or atarax vs singulair...to try to prevent symptomsmargarita does not recall consistently taking any antihistamine, recalls being told to take zyrtec before, recalls being told to try pepcid before but unclear she ever took even once let alone daily, discussed goal to try to prevent/ reduce response to medications. She notes symptoms feel better today after scheduled xanax and would like to continue to take 0.125mg tid during rehab stay, discussed this treats her anxiety and by doing so helps with her blood pressure, we had discussion today about how mind/body are closely interlinked and how symptoms of drugintolerances are stressful and provoke anxiety. Discussed how it is understandable given responses she has had to prior medications why she would feel worried that it would recur with alternative medications. While Miya agrees that xanax is helpful she does not verbalize agreement with any component of anxiety to her reactions or concern for future reactions. She is not interested in trial of hydroxyzinebelieves she did not tolerate, she does not like benadryl as she feels it has a stimulating side effect but does reduce throat closing, itching, shortness of breath symptoms. -reduce telmisartan 10 mg bid -try zyrtec 5 mg daily- Miya asked for liquid -xanax 0.125 mg tid -bendaryl prn MEDICATIONS Current Facility-Administered Medications Medication Dose Route Frequency Provider Last Rate Last Admin ALPRAZolam (XANAX) half-tab 0.125 mg 0.125 mg Oral BID Andres Worthy MD aspirin (ASA) EC tablet 325 mg 325 mg Oral Daily Petra Dorado PA 325 mg at 07/10/23827 clopidogrel (PLAVIX) tablet 75 mg 75 mg Oral Daily Petra Dorado PA 75 mg at 07/10/23827 diclofenac (VOLTAREN) 1 % topical gel 2 g 2 g Topical 4x Daily Ibeth Ellison MD 2 g at 07/10/231943 melatonin tablet 3 mg 3 mg Oral At Bedtime Ibeth Ellison MD 3 mg at 07/07/231928 metoprolol tartrate (LOPRESSOR) quarter-tab 6.25 mg 6.25 mg Oral BID Petra Dorado PA 6.25 mgat 07/10/231942 [START ON 07/12/2023] rosuvastatin (CRESTOR) tablet 5 mg 5 mg Oral Weekly Petra Dorado PA telmisartan (MICARDIS) half-tab 10 mg 10 mg Oral Daily Petra Dorado PA telmisartan (MICARDIS) tablet 20 mg 20 mg Oral QPM Petra Dorado PA 20 mg at 07/10/231942 Vitamin D3 (CHOLECALCIFEROL) tablet 50 mcg 50 mcg Oral Daily Petra Dorado PA 50 mcg at 07/10/23 0828 Current Facility-Administered Medications Medication Dose Route Frequency Provider Last Rate Last Admin acetaminophen (TYLENOL) tablet 650 mg 650 mg Oral Q4H PRN Joanie Storey MD 650 mg at 07/10/23 174 ALPRAZolam (XANAX) tablet 0.25 mg 0.25 mg Oral Daily PRN Andres Worthy MD bisacodyl (DULCOLAX) suppository 10 mg 10 mg Rectal Daily PRN Petra Dorado PA [START ON 07/13/2023] diclofenac (VOLTAREN) 1 % topical gel 2 g 2 g Topical 4x Daily PRN Ibeth Ellison MD fluticasone (FLONASE) 50 MCG/ACT spray 1 spray 1 spray Both Nostrils BID PRN Petra Dorado PA senna-docusate (SENOKOT-S/PERICOLACE) 8.6-50 MG per tablet 1 tablet 1 tablet Oral BID PRN Petra Dorado PA PHYSICAL EXAM BP (!) 169/75 (BP Location: Left arm, Patient Position: Semi-Montez's, Cuff Size: Adult Regular) Pulse 68 Temp 97.9 ??F (36.6 ??C) (Oral) Resp 18 Wt 66.5 kg (146 lb 9.7 oz) SpO2 94% Gen: NAD, HEENT: MMM, EOMI Cardio: RRR Pulm: non labored clear Abd: Soft, nontender, nondistended Ext: Calves are supple without edema Neuro/MSK: Right hemiparesis, on bike during visit LABS CBC RESULTS: Recent Labs Lab Test 07/10/23 0609 07/07/23 0556 08/16/19 1748 WBC 6.0 6.5 5.9 RBC 5.15 5.08 5.11 HGB 15.0 15.0 15.0 HCT 44.9 44.7 44.9 MCV 87 88 88 MCH 29.1 29.5 29.4 MCHC 33.4 33.6 33.4 RDW 13.2 13.5 13.2 PLT 229 208 225 Last Basic Metabolic Panel: Recent Labs Lab Test 07/10/23 0609 07/06/23 1900 08/16/19 1748 NA 140 141 141 POTASSIUM 4.0 4.1 3.6 CHLORIDE 105 106 109 CO2 24 25 27 ANIONGAP 11 10 5 GLC 94 105* 123* BUN 19.1 18.6 18 CR 0.60 0.56 0.76 GFRESTIMATED >90 >90 80 LIZ 9.1 9.0 8.3* Rehabilitation - continue comprehensive acute inpatient rehabilitation program with multidisciplinary approach including therapies, rehab nursing, and physiatry following. See interval history for updates. Admission to acute inpatient rehab acute left periventricular/putamen stroke. 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 Impairment of ADL's: Noted to have impaired strength, impaired activity tolerance, impaired coordination and impaired safety awareness leading to decreased ability to independently complete ADL's. Will benefit from ongoing OT with goal for MOD I with basic ADLs. Impairment of mobility: Noted to have impaired strength, impaired activity tolerance, and impaired coordination leading to decreased mobility. Will benefit from ongoing PT with goal for IGGY with basic mobility. Impairment of cognition/language/swallow: Noted to have impaired safety awareness, dysarthria, wordfinding difficulties and verbal apraxia will benefit from ongoing MEDICAL SCIENTIFIC LIAISON to improve ability to expressneeds clearly ASSESSMENT AND PLAN Miya Restrepo is a 73 year old right hand dominant woman with past medical history of SHERRIE, HTN, HLD, CAD, anxiety, recurrent chest pain, multiple medication intolerances, and frequent PVCs who presented 06/30/23 with acute right sided weakness and changes in speech she was found to have acute left periventricular/putamen ischemic stroke, on presentation have hypertensive urgency, untreated HLD, stroke felt secondary to small vessel ischemic disease. Course complicated by medication intolerances reported poor response to multiple medications for secondary prevention. Admitted to rehab 07/06/23. Acute ischemic stroke Left Periventricular/Putamen Seen by neurology felt 2/2 small vessel disease- BP up to 224/127 in ED 06/29. A1C 5.9%, 05/03/2023: EF 62%, mild mitral regurgitation, aortic valve tri leaflet & sclerotic, Total cholesterol 268, triglycerides 232, HDL 58, LDL 164 03/2023. asa 325 mg and plavix 75 mg x 21 days then asa 81 mg daily. Exam findings aphasia, right upper extremity apraxia. -HTN management as below -continue ASA 325 mg & Plavix x21 days -HLD-management as below. -continue PT/OT/MEDICAL SCIENTIFIC LIAISON Frequent PVCs Follows with electrophysiology scheduled 07/17/[address] Benz, 7 day zio patch ordered per cardiology 06/23/23 - metoprolol 6.25 mg bid -monitor BMP Anxiety -prior to admission on alprazolam 0.25 mg tid prn, and diazepam prn Xanax 0.125 mg tid (reportedly how she is taking), and prn -consider addition of atarax prn- she declines stating not tolerated in past -psychology consult for emotional support, scalloper for emotional support -suspect anxiety (worry about reaction to medications) contributing to medication intolerance HTN Non obstructive CAD Dyslipidemia Seen by cardiology Dr. Nunez 06/23/23, documented chest pain, does not respond to nitroglycerin, has been seen by multiple providers . On metoprolol 6.25 mg bid and telmisartan 10 mg bid prior to admission -metoprolol 6.25 mg bid. -receiving telmisartan 10 mg bid not on formulary here-- increased telmisartan 10 mg q am and 20 mgat bedtime - she tried 07/09 had shortness of breath, throat swelling response- she is not interested in repeat trial- reduce telmisartan 10 mg bid -cardiology considering renal denervation -follow up Dr.Yale Soni Nunez -was trying crestor 5 mg once weekly- slow titration- reports statin intolerance leg weakness and falling down as side effect not willing to continue on statin- interested in PSCK9 inhibitors SHERRIE On CPAP stopped using because of recall -follow up sleep medicine/ obtain new CPAP Allergies/Intolerances Mast Cell Activation Syndrome -patient has intolerance to many antihypertensives and statins, as well as other medications, complicating cares and increasing difficulty getting therapeutic secondary stroke prevention. Appears crystals tried/ been on pepcid and flonase in past. -question if scheduled certizine or hydroxyzine (antihistamine), -Singulair (Leukotriene inhibitor) would help improve tolerance /prevent reactions Adjustment to disability: Clinical psychology to eval and treat FEN: reg Bowel: monitor; prn bowel meds Bladder: monitor; will check PVRs DVT Prophylaxis: mechanical GI Prophylaxis: none Code: full Disposition: home ELOS: 7-10 days . Rehab prognosis: fair Follow up Appointments on Discharge: pcp, neurology, cardiology, psychology/ psychiatry, PM&R [facility] Physical Medicine [facility] Rehabilitation I spent a total of 45 minutes vyip-ke-tlhr or managing the care of Miya Restrepo, we discussed medications, side effects, possible treatment, reviewed chart/ notes, labs. Associated attestation - Ibeth Ellison MD - 07/11/2023 2:11 PM CDT Physician Attestation I saw and evaluated Miya Restrepo as part of a shared ASSISTANT OPERATIONS MANAGER/PA visit. I personally reviewed the vital signs, medications, and labs. I personally provided a substantive portion of care for this patient and I approve the care plan aswritten by the TIMMY. I was involved with Medical Decision Making including: Saw patient in the presence of her daughter. She is making remarkable improvements in her motor function on the right side. She is now able to flex at the elbow against gravity which she was not ableto do just a day or 2 ago. As described in the note patient also told me about her reaction with increasing telmisartan. I have reemphasized the importance of addressing her risk factors for her stroke particularly her blood pressure. I have also discussed the importance of avoiding neuro suppressive agents such as benzodiazepines which may slow down neural regeneration in the context of her stroke. Patient and daughter expressed understanding of our recommendations. Please see A&P for additional details of medical decision making. IBETH ELLISON MD Date of Service (when I saw the patient): 07/11/23 * Bisi Gray, JB - 07/10/2023 12:20 PM CDT [facility] MEDICAL SCIENTIFIC LIAISON: Discharge Plan: home with dtr ? 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 Word-finding is WFL. Cognition: Pt/family reports at baseline. Not assessed at ARU. Swallow: Regular diet/thin liquids. Not assessed at ARU. Assessment: Pt with dtr upon arrival and reported increased confusion and lethargy d/t larger dose of medication. Pt able to recall previously introduced strategies for dysarthria via SLOB. Pt engaged in structured practice of diaphragmic breathing. required max cues to implement correctly, benefited from tactile support and feedback for accuracy. Pt provided additional education on SLOB strategies and encouraged to continue across all forms of communication outside of MEDICAL SCIENTIFIC LIAISON. Pt in agreement. Pt able to implement strategies across structured sentences with 90% accuracy IND Other Barriers to Discharge (Family Training, etc): None from MEDICAL SCIENTIFIC LIAISON perspective. * JAD BAI - 07/10/2023 11:09 AM CDT Patient and her daughter participated in stroke education. They were engaged and asked appropriate questions. Stroke handbook reviewed with them and given to them to keep. * Petra Dorado PA - 07/10/2023 8:42 AM CDT Images from the original note were not included. [facility] Unit Daily progress note INTERVAL HISTORY Miya Restrepo was seen sitting up in bed, daughter at bedside. BP remains above goal SBP 160s-190s is on very small doses of both telmisartan and metoprolol. Notes she is very sensitive to all medications and family feels this is best blood pressure control she has had in years, she is tolerating current medications patient and daughter would like to continue to slowly titrate medications to build tolerance. Miya suggests telmisartan 10 mg in am 20 mg in pm- with close monitoring. Note she had some upper back pain after sitting in wheel chair for several hours and upon to bed was very sore in upper back and worried she had recurrent stroke, pain improved with heat and xanax. Discussed anxiety around stroke and situation, Miya is interested in speaking to scalloper, and hesitant but willing to speak to psychology. Mentions how in life she does not dwell in emotions just moves forward. Statin- reports cause muscle aches and have led to past fall(s)- tried crestor 5 mg in hospital this admission and had very bad night wondering about PCSK9 inhibitors- specifically Repatha. Discussed how this may be good option for patient but not available in hospital/and will likely require Prior Authorization- but suspect good option for outpatient. MEDICATIONS Current Facility-Administered Medications Medication Dose Route Frequency Provider Last Rate Last Admin aspirin (ASA) EC tablet 325 mg 325 mg Oral Daily Petra Dorado PA 325 mg at 07/10/23827 clopidogrel (PLAVIX) tablet 75 mg 75 mg Oral Daily Petra Dorado PA 75 mg at 07/10/23827 melatonin tablet 3 mg 3 mg Oral At Bedtime Ibeth Ellison MD 3 mg at 07/07/231928 metoprolol tartrate (LOPRESSOR) quarter-tab 6.25 mg 6.25 mg Oral BID Petra Dorado PA 6.25 mgat 07/10/23 0829 [START ON 07/12/2023] rosuvastatin (CRESTOR) tablet 5 mg 5 mg Oral Weekly Petra Dorado PA telmisartan (MICARDIS) half-tab 10 mg 10 mg Oral BID Petra Dorado PA 10 mg at 07/10/23 08 Vitamin D3 (CHOLECALCIFEROL) tablet 50 mcg 50 mcg Oral Daily Petra Dorado PA 50 mcg at 07/10/23 0828 Current Facility-Administered Medications Medication Dose Route Frequency Provider Last Rate Last Admin acetaminophen (TYLENOL) tablet 650 mg 650 mg Oral Q4H PRN Joanie Storey MD 650 mg at 07/09/23 1419 ALPRAZolam (XANAX) tablet 0.25 mg 0.25 mg Oral TID PRN Petra Dorado PA 0.25 mg at 07/09/23 1419 bisacodyl (DULCOLAX) suppository 10 mg 10 mg Rectal Daily PRN Petra Dorado PA fluticasone (FLONASE) 50 MCG/ACT spray 1 spray 1 spray Both Nostrils BID PRN Petra Dorado PA senna-docusate (SENOKOT-S/PERICOLACE) 8.6-50 MG per tablet 1 tablet 1 tablet Oral BID PRN Petra Dorado PA PHYSICAL EXAM BP (!) 160/75 Pulse 90 Temp 98.2 ??F (36.8 ??C) (Oral) Resp 20 Wt 66.5 kg (146 lb 9.7 oz) SpO2 97% Gen: NAD, HEENT: MMM, EOMI Cardio: RRR Pulm: non labored clear Abd: Soft, nontender, nondistended Ext: Calves are supple without edema Neuro/MSK: Right hemiparesis, able to do shoulder shrug on the right, elbow flexion with gravity eliminated as well as finger flexion. Right hf ke df/pf all anti gravity LABS CBC RESULTS: Recent Labs Lab Test 07/10/23 0609 07/07/23 0556 08/16/19 1748 WBC 6.0 6.5 5.9 RBC 5.15 5.08 5.11 HGB 15.0 15.0 15.0 HCT 44.9 44.7 44.9 MCV 87 88 88 MCH 29.1 29.5 29.4 MCHC 33.4 33.6 33.4 RDW 13.2 13.5 13.2 PLT 229 208 225 Last Basic Metabolic Panel: Recent Labs Lab Test 07/10/23 0609 07/06/23 1900 08/16/19 1748 NA 140 141 141 POTASSIUM 4.0 4.1 3.6 CHLORIDE 105 106 109 CO2 24 25 27 ANIONGAP 11 10 5 GLC 94 105* 123* BUN 19.1 18.6 18 CR 0.60 0.56 0.76 GFRESTIMATED >90 >90 80 LIZ 9.1 9.0 8.3* Rehabilitation - continue comprehensive acute inpatient rehabilitation program with multidisciplinary approach including therapies, rehab nursing, and physiatry following. See interval history for updates. Admission to acute inpatient rehab acute left periventricular/putamen stroke. 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 Impairment of ADL's: Noted to have impaired strength, impaired activity tolerance, impaired coordination and impaired safety awareness leading to decreased ability to independently complete ADL's. Will benefit from ongoing OT with goal for MOD I with basic ADLs. Impairment of mobility: Noted to have impaired strength, impaired activity tolerance, and impaired coordination leading to decreased mobility. Will benefit from ongoing PT with goal for IGGY with basic mobility. Impairment of cognition/language/swallow: Noted to have impaired safety awareness, dysarthria, wordfinding difficulties and verbal apraxia will benefit from ongoing MEDICAL SCIENTIFIC LIAISON to improve ability to expressneeds clearly ASSESSMENT AND PLAN Miya Restrepo is a 73 year old right hand dominant woman with past medical history of SHERRIE, HTN, HLD, CAD, anxiety, recurrent chest pain, multiple medication intolerances, and frequent PVCs who presented 06/30/23 with acute right sided weakness and changes in speech she was found to have acute left periventricular/putamen ischemic stroke, on presentation have hypertensive urgency, untreated HLD, stroke felt secondary to small vessel ischemic disease. Course complicated by medication intolerances reported poor response to multiple medications for secondary prevention. Admitted to rehab 07/06/23. Acute ischemic stroke Left Periventricular/Putamen Seen by neurology felt 2/2 small vessel disease- BP up to 224/127 in ED 06/29. A1C 5.9%, 05/03/2023: EF 62%, mild mitral regurgitation, aortic valve tri leaflet & sclerotic, Total cholesterol 268, triglycerides 232, HDL 58, LDL 164 03/2023. asa 325 mg and plavix 75 mg x 21 days then asa 81 mg daily. Exam findings aphasia, right upper extremity apraxia. -HTN management as below -continue ASA 325 mg & Plavix x21 days -HLD-management as below. -continue PT/OT/MEDICAL SCIENTIFIC LIAISON Frequent PVCs Follows with electrophysiology scheduled 07/17/[address] Benz, 7 day zio patch ordered per cardiology 06/23/23 - metoprolol 6.25 mg bid -monitor BMP Anxiety -prior to admission on alprazolam 0.25 mg tid prn, and diazepam prn -continue xanax prn -consider addition of atarax prn -psychology consult for emotional support, scalloper for emotional support -suspect anxiety contributing to medication intolerance issues- consider psychiatry inpatient vs outpatient follow up HTN Non obstructive CAD Dyslipidemia Seen by cardiology Dr. Nunez 06/23/23, documented chest pain, does not respond to nitroglycerin, has been seen by multiple providers . On metoprolol 6.25 mg bid and telmisartan 10 mg bid prior to admission -metoprolol 6.25 mg bid. 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 Appears shehas tried/ been on pepcid and flonase in past. -question if scheduled certizine or hydroxyzine (antihistamine),Singulair (Leukotriene inhibitor) would help improve tolerance /prevent reactions Adjustment to disability: Clinical psychology to eval and treat FEN: reg Bowel: monitor; prn bowel meds Bladder: monitor; will check PVRs DVT Prophylaxis: mechanical GI Prophylaxis: none Code: full Disposition: home ELOS: 7-10 days . Rehab prognosis: fair Follow up Appointments on Discharge: pcp, neurology, cardiology, psychology/ psychiatry, PM&R Petra Dorado PA-C Physical Medicine & Rehabilitation I spent a total of 45 minutes [id number] or managing the care of Miya Restrepo, we discussed hypertension management, anxiety, and hyperlipidemia, chart reviewed.. * Vinod Sethi RN - 07/09/2023 12:32 PM CDT VS: VSS O2: 96% AT RA Output: SEE I AND O FLOW SHEET Last BM: 07/09/23 Activity: ASSIST OF ONE WITH CANE/ WHEEL CHAIR Skin: INTACT Pain: DENIES PAIN CMS: INTACT Dressing: NONE Diet: REGULAR /THIN LDA: NONE Equipment: T BELT, CANE AND WHEEL CHAIR Plan: WE WILL CONTINUE WITH CURRENT PLAN OF CARE Additional Info: * Oksana Baeza, MEDICAL SCIENTIFIC LIAISON - 07/09/2023 11:28 AM CDT [facility] MEDICAL SCIENTIFIC LIAISON: Discharge Plan: TBD Precautions: fall Current Status: Hearing: WFL Vision: wears contacts/glassse Communication: Mild-moderate spastic dysarthria with 90% intelligibility in conversation. Word-finding is WFL. Cognition: Pt/family reports at baseline. Not assessed at ARU. Swallow: Regular diet/thin liquids. Not assessed at ARU. Assessment: MEDICAL SCIENTIFIC LIAISON provided continued training in speech intelligibility strategies, focusing on improved breath suppor and louder voice. Sound pressure meter utilized for visual feedback. Pt responded well to cueing strategies and utilized them in production of multisyllabic words with /b/ in inital/m edial/final position of single words and in sentences. Intelligibility is 100%, but pt requring mincues for use of strategies. MEDICAL SCIENTIFIC LIAISON provided education in breathing/phrasing to reduce rushing through speech. Pt noted to independently take drinks throughout session to reduce effects of xerostomia. Other Barriers to Discharge (Family Training, etc): None from MEDICAL SCIENTIFIC LIAISON perspective. * Cuco Ramos OT - 07/08/2023 3:06 PM CDT [facility] OT: Discharge Plan: home with s/o A vs daughter's home; HCOT vs OP OT pending progress Precautions: falls, R caitlin shoulder, R inattention Current Status: ADLs: Mobility: Therapies cane-based amb CGA-Mod A. Recommend nursing Min A stand pivot with cane; wc-based in hallway. Grooming: Min A. Dressing: UB - Mod A. LB - Mod A. Feet - Total A. Bathing: Declined shower; clinically reason transfer CGA pivot wc <> ETB with grab bar and Mod A tasks. Toileting: Progressing cane-based amb with therapies only d/t Min-Mod A. SBA cares, Min A c/m. Recommend nsg wc <> commode overlay pivot with grab bar CGA. 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 Contacts. R inattention noted. Mildly impulsive. Tangential and attention deficits noted; family reported personality similar. Assessment: Declined shower, clinical reasoning for levels above. Pt motivated to participate in RUE exercises in both sessions; benefits from quite environment to maintain attention to tasks. Other Barriers to Discharge (DME, Family Training, etc): -Level of A. -Home environment: Stairs to access 2nd floor main bedroom/bathroom. Tub/shower combo. 1/2 bath available on main level; can temporarily live on main level if needed. S/o David works out of home as longo. Vs. Daughter's home: Mother in law suite with WIS. [place] able to provide daytime A per pt. DME: Owns shower chair, has access to manual wc. TBD pending progress. * Cuco Ramos OT - 07/08/2023 2:03 PM CDT Skilled set up on RT300: Pt dependent for proper placement of electrodes on RUE for optimum muscle contraction, safe positioning on w/c within frame and cushion for prevention of skin breakdown, UE secured to arm support. Passive motion assessed to ensure proper positioning. Pt performed 30 minutes of active FES ergometry with 0-100% stimulation applied to above muscles [id number] with 0.50.86 nm resistance. This OT adjusted e-stim and cycling parameters in real-time to ensure palpable muscle contractions throughout session. Please see [email or web address] for further detailson patient's stimulation parameters and ergometry outcomes. Changes in parameters that were part of this treatment: -resistance -pulse width, frequency -amplitude -pedal speed - RUE only for increased attn and wb Functional outcomes from this intervention include: -reduced spasticity -improved sensory awareness and proprioception -improved muscle strength -improved motor coordination Session Summary: -Average Power: 0.5 W -Active Minutes: 2:44 * Oksana Baeza SLP - 07/08/2023 1:05 PM CDT [facility] MEDICAL SCIENTIFIC LIAISON: Discharge Plan: KAL Precautions: fall Current Status: Hearing: WFL Vision: wears contacts/glassse Communication: Mild-moderate spastic dysarthria with 90% intelligibility in conversation. Word-finding is WFL. Cognition: Pt/family reports at baseline. Not assessed at ARU. Swallow: Regular diet/thin liquids. Not assessed at ARU. Assessment: MEDICAL SCIENTIFIC LIAISON provided continued training in speech intelligibility strategies including slow rate, louder voice, exagerrated articulation, and improved breath support. Pt responded well to cueing strategies and utilized them in production of multisyllabic words with /b/ in inital/medial/final position of single words and in sentences. Intelligibility is 100%, but pt requring min cues for use of strategies. MEDICAL SCIENTIFIC LIAISON provided education in breathing/phrasing to reduce rushing through speech. MEDICAL SCIENTIFIC LIAISON also educated pt moistening oral cavity with liquid throughout the day and prior to speaking to reduce the chance of xerostomia exacerbating dysarthria. Pt voices comprehension and intent. Other Barriers to Discharge (Family Training, etc): None from MEDICAL SCIENTIFIC LIAISON perspective. * Nelli Frazier MD - 07/08/2023 10:25 AM CDT PM&R PROGRESS NOTE Patient Active Problem List Diagnosis Stroke (cerebrum) (H) HPI Miya Restrepo is a 73 year old female admitted to the ARU on 07/06/2023. She presented with right-sided weakness slurred speech and word finding difficulty secondary to left Periventricular/putamen infarct secondary to small vessel disease She has a history of hypertension, hyperlipidemia, mast cell activation syndrome, anxiety and PVCs Deficits include right-sided weakness, slurred speech, and word finding difficulties From the functional perspective, she is initially discouraged thinking that her right upper extremity is completely flaccid. But upon my examination it is evident that she has some strength albeit not antigravity. She is motivated by the fact. She was admitted on and has undergone a full formal evaluation. She has speech intelligibility. She is requiring minimal assist for mobility, wheelchair based on the hallways Continue the current intense rehabitation. Monitor for post stroke depression. Medically, Periventricular infarct; l Etiology of the stroke secondary to small vessel ischemic disease with risk factors of hypertension. She is currently on aspirin and Plavix for secondary prevention of stroke Hyperlipidemia Her lipid profile at the time of admission was notable for LDL of 164. She is currently on Crestor for hyperlipidemia Hypertension; Notes that she has had a history of allergies to beta-blockers but notes that there have not been any concerns at this point. We will continue the beta- blockers given her blood pressures continue to be high at 160.81. Will monitor closely for now. Orders Placed This Encounter Combination Diet Regular Diet; Thin Liquids (level 0) Review Of Systems Total of ten systems reviewed, pertinent positives and negatives as follows Denies chest pain fever chills rigors Denies any shortness of breath Denies any nausea or vomiting Appetite good Denies any lightheadedness or dizziness Denies any pain Denies any sob or cough Denies any new rashes Mood is difficult for her given her new loss Voiding without any problems, no incontinence Slept well last night Remainder of the review of the systems was negative BP (!) 160/81 Pulse 75 Temp (P) 97.9 ??F (36.6 ??C) (Oral) Resp (P) 18 Wt 66.5 kg (146 lb 9.7 oz) SpO2 (P) 95% Physical exam Patient is sitting in bed comfortable in no acute distress HEENT NC AT PRTL EOM good Neck supple Heart S1S2 Lungs CTA Abdomen benign BS positive NT NR LE no edema She does have some strength albeit not antigravity in her right upper extremity. Notable weakness in dorsiflexion and tendency to supinate and her right foot. Current Facility-Administered Medications Medication Dose Route Frequency Provider Last Rate Last Admin acetaminophen (TYLENOL) tablet 650 mg 650 mg Oral Q4H PRN Joanie Storey MD ALPRAZolam (XANAX) tablet 0.25 mg 0.25 mg Oral TID PRN Petra Dorado PA 0.25 mg at 07/08/23 0858 aspirin (ASA) EC tablet 325 mg 325 mg Oral Daily Petra Dorado PA 325 mg at 07/08/23 0851 bisacodyl (DULCOLAX) suppository 10 mg 10 mg Rectal Daily PRN Petra Dorado PA clopidogrel (PLAVIX) tablet 75 mg 75 mg Oral Daily Petra Dorado PA 75 mg at 07/08/23 0851 fluticasone (FLONASE) 50 MCG/ACT spray 1 spray 1 spray Both Nostrils BID PRN Petra Dorado PA melatonin tablet 3 mg 3 mg Oral At Bedtime Ibeth Ellison MD 3 mg at 07/07/23 192 metoprolol tartrate (LOPRESSOR) quarter-tab 6.25 mg 6.25 mg Oral BID Petra Dorado PA 6.25 mgat 07/08/23 0851 [START ON 07/12/2023] rosuvastatin (CRESTOR) tablet 5 mg 5 mg Oral Weekly Petra Dorado PA senna-docusate (SENOKOT-S/PERICOLACE) 8.6-50 MG per tablet 1 tablet 1 tablet Oral BID PRN Petra Dorado PA telmisartan (MICARDIS) half-tab 10 mg 10 mg Oral BID Petra Dorado PA 10 mg at 07/08/23 0851 Vitamin D3 (CHOLECALCIFEROL) tablet 50 mcg 50 mcg Oral Daily Petra Dorado PA 50 mcg at 07/08/23 0851 Labs: Lab Results Component Value Date WBC 6.5 07/07/2023 HGB 15.0 07/07/2023 HCT 44.7 07/07/2023 PLT 208 07/07/2023 NA 141 07/06/2023 POTASSIUM 4.1 07/06/2023 CHLORIDE 106 07/06/2023 CO2 25 07/06/2023 BUN 18.6 07/06/2023 CR 0.56 07/06/2023 GLC 105 (H) 07/06/2023 TROPI <0.015 08/16/2019 AST 30 08/16/2019 ALT 47 08/16/2019 ALKPHOS 121 08/16/2019 BILITOTAL 0.3 08/16/2019 Attestation: This patient has been seen and evaluated by me, Nelli Frazier MD. Total time: 35 minutes more than 50% in Care coordination on the floor/ counseling the patient faceto face Also see my separate note for [facility] Nelli Frazier MD, [facility] Department of Rehabilitation * Ibeth Ellison MD - 07/07/2023 8:37 PM CDT Images from the original note were not included. [facility] Acute Rehabilitation Unit Daily progress note INTERVAL HISTORY Miya Restrepo was seen and examined at bedside this morning. No acute events reported overnight. She has been participating in her daily therapy with no significant issues. Does not have any pain. Appetite remains intact. Bowel and bladder moving well. She has had some difficulty with sleep overnight and we had a discussion about sleep aids. She prefers to take minimal amounts of medications but is agreeable to try melatonin. Functional Update: PT: Current Status: Bed Mobility: verna Transfer: Verna w/ quad cane Gait: min-modA with NBQC variable with fatigue, therapy only. Wc based for nsg to bathroom. Stairs: NT Balance: Seated balance intact static. Standing balance impaired. Outcome Measures: Assessment: Pt presents with R hemiparesis (UE weakner than LE), fractionated movement deficit ( R LE), sensory detection and weighting deficit, in presence of impaired activity tolerance and impaired standing balance. Pt house has several flights of stairs, and is often home alone. Pt also has more accessible daughters house as an option at discharge. Pt with supportive family, who are planning to provide intermittent assist. Goals for Iggy ambulatory based mobility, intermittent assist for stairs. ELOS to achieve these goals 10 days. PM session limited by BP 175/81, RN aware.Unable to assess stairs/ further OOR mobility d/t this. OT: Current Status: ADLs: Mobility: Therapies cane-based amb Min-Mod A. Recommend nursing Min A stand pivot with cane; wc-based in hallway. Grooming: NT Dressing: UB - NT. LB - NT. Feet - Total A. Bathing: NT Toileting: Min-Mod A amb w/ cane with therapies. Recommend nsg wc <> commode overlay pivot with grab bar CGA. 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 Contacts. R inattention noted. Mildly impulsive. Tangential and attention deficits noted; family reported personality similar. Assessment: Pt admitted s/p left periventricular/ putamen ischemic stroke. Pt previously IND ADLs and high-level IADLs; currently requires increased assist for all ADLs and functional transfers. Performance primarily limited by R side hemiparesis impairing RUE > RLE and functional cognition deficits. Discharge disposition options include home with need to do stairs and Mod I toileting transfers vs to daughter's home with increased daytime A available. ELOS 10-14 days, HC vs OP OT pending progress. MEDICATIONS Current Facility-Administered Medications Medication Dose Route Frequency Provider Last Rate Last Admin aspirin (ASA) EC tablet 325 mg 325 mg Oral Daily Petra Dorado PA 325 mg at 07/07/23 0825 clopidogrel (PLAVIX) tablet 75 mg 75 mg Oral Daily Petra Dorado PA 75 mg at 07/07/23 0825 melatonin tablet 3 mg 3 mg Oral At Bedtime Ibeth Ellison MD 3 mg at 07/07/231928 metoprolol tartrate (LOPRESSOR) quarter-tab 6.25 mg 6.25 mg Oral BID Petra Dorado PA 6.25 mgat 07/07/231929 [START ON 07/12/2023] rosuvastatin (CRESTOR) tablet 5 mg 5 mg Oral Weekly Petra Dorado PA telmisartan (MICARDIS) half-tab 10 mg 10 mg Oral BID Petra Dorado PA 10 mg at 07/07/231929 Vitamin D3 (CHOLECALCIFEROL) tablet 50 mcg 50 mcg Oral Daily Petra Dorado PA 50 mcg at 07/07/23 0825 Current Facility-Administered Medications Medication Dose Route Frequency Provider Last Rate Last Admin acetaminophen (TYLENOL) tablet 650 mg 650 mg Oral Q4H PRN Joanie Storey MD ALPRAZolam (XANAX) tablet 0.25 mg 0.25 mg Oral TID PRN Petra Dorado PA 0.25 mg at 07/07/23 1743 bisacodyl (DULCOLAX) suppository 10 mg 10 mg Rectal Daily PRN Petra Dorado PA fluticasone (FLONASE) 50 MCG/ACT spray 1 spray 1 spray Both Nostrils BID PRN Petra Dorado PA senna-docusate (SENOKOT-S/PERICOLACE) 8.6-50 MG per tablet 1 tablet 1 tablet Oral BID PRN Petra Dorado PA PHYSICAL EXAM BP (!) 175/85 Pulse 84 Temp 97.7 ??F (36.5 ??C) (Oral) Resp 18 Wt 66.5 kg (146 lb 9.7 oz) SpO2 95% Gen: NAD, comfortably laying in bed. HEENT: MMM, EOMI, right facial droop Cardio: RRR Pulm: CTA bilaterally, nonlabored on room air Abd: Soft, nontender, nondistended Ext: Calves are supple Neuro/MSK: Right hemiparesis, able to do shoulder shrug on the right, elbow flexion with gravity eliminated as well as finger flexion. LABS CBC RESULTS: Recent Labs Lab Test 07/07/23 0556 08/16/19 1748 WBC 6.5 5.9 RBC 5.08 5.11 HGB 15.0 15.0 HCT 44.7 44.9 MCV 88 88 MCH 29.5 29.4 MCHC 33.6 33.4 RDW 13.5 13.2 PLT 208 225 Last Basic Metabolic Panel: Recent Labs Lab Test 07/06/23 1900 08/16/19 1748 NA 141 141 POTASSIUM 4.1 3.6 CHLORIDE 106 109 CO2 25 27 ANIONGAP 10 5 GLC 105* 123* BUN 18.6 18 CR 0.56 0.76 GFRESTIMATED >90 80 LIZ 9.0 8.3* Rehabilitation - continue comprehensive acute inpatient rehabilitation program with multidisciplinary approach including therapies, rehab nursing, and physiatry following. See interval history for updates. ASSESSMENT AND PLAN Miya Restrepo is a 73 year old right hand dominant woman with past medical history of SHERRIE, HTN, HLD, CAD, anxiety, recurrent chest pain, multiple medication intolerances, and frequent PVCs who presented 06/30/23 with acute right sided weakness and changes in speech she was found to have acute left periventricular/putamen ischemic stroke, on presentation have hypertensive urgency, untreated HLD, stroke felt secondary to small vessel ischemic disease. Course complicated by medication intolerances reported poor response to multiple medications for secondary prevention. Admitted to rehab 07/06/23. Admission to acute inpatient rehab acute left periventricular/putamen stroke. 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 Impairment of ADL's: Noted to have impaired strength, impaired activity tolerance, impaired coordination and impaired safety awareness leading to decreased ability to independently complete ADL's. Will benefit from ongoing OT with goal for MOD I with basic ADLs. Impairment of mobility: Noted to have impaired strength, impaired activity tolerance, and impaired coordination leading to decreased mobility. Will benefit from ongoing PT with goal for IGGY with basic mobility. Impairment of cognition/language/swallow: Noted to have impaired safety awareness, dysarthria, wordfinding difficulties and verbal apraxia will benefit from ongoing MEDICAL SCIENTIFIC LIAISON to improve ability to expressneeds clearly Medical Conditions Acute ischemic stroke Left Periventricular/Putamen Seen by neurology felt 2/2 small vessel disease- BP up to 224/127 in ED 06/29. A1C 5.9%, 05/03/2023: EF 62%, mild mitral regurgitation, aortic valve tri leaflet & sclerotic, Total cholesterol 268, triglycerides 232, HDL 58, LDL 164 03/2023. asa 325 mg and plavix 75 mg x 21 days then asa 81 mg daily. Exam findings aphasia, right upper extremity apraxia. -HTN management as below -continue ASA 325 mg & Plavix x21 days -HLD-management as below. -continue PT/OT/MEDICAL SCIENTIFIC LIAISON Frequent PVCs Follows with electrophysiology scheduled 07/17/[address] Benz, 7 day zio patch ordered per cardiology 06/23/23 - metoprolol 6.25 mg bid -monitor BMP Anxiety -prior to admission on alprazolam 0.25 mg tid prn, and diazepam prn -continue xanax prn -psychology consult for emotional support -suspect anxiety contributing to medication intolerance issues- consider psychiatry inpatient vs outpatient follow up HTN Non obstructive CAD Dyslipidemia Seen by cardiology Dr. Nunez 06/23/23, documented chest pain, does not respond to nitroglycerin, has been seen by multiple providers . On metoprolol 6.25 mg bid and telmisartan 10 mg bid prior to admission -metoprolol 6.25 mg bid. -receiving telmisartan 10 mg bid not on formulary here. - -cardiology considering renal denervation -telmisartan 10 mg bid -follow up Dr.Yale Soni Nunez -trying crestor 5 mg once weekly- slow titration- reports statin intolerance leg weakness and falling down as side effect -Blood pressures have been on the high side, patient able to lower blood pressure with relaxation. She has some intolerance to medication and would like to avoid any increase in her meds if possible.We will continue monitoring her at this point. SHERRIE On CPAP stopped using because of recall -follow up sleep medicine/ obtain new CPAP Allergies/Intolerances -patient has intolerance to many antihypertensives and statins, as well as other medications. Adjustment to disability: Clinical psychology to eval and treat FEN: reg Bowel: monitor; prn bowel meds Bladder: monitor; will check PVRs DVT Prophylaxis: mechanical GI Prophylaxis: none Code: full Disposition: home ELOS: 7-10 days . Rehab prognosis: fair Follow up Appointments on Discharge: pcp, neurology, cardiology, psychology/ psychiatry, PM&R I have started patient on melatonin to be tried over the weekend and will reevaluate on Monday. I, IBETH ELLISON, spent over 35 minutes [id number] or managing the care of this patient. Patient was discussed with PM&R team Ibeth Ellison MD Physical Medicine & Rehabilitation * Cuco Ramos, OT - 07/07/2023 1:33 PM CDT [facility] OT: Discharge Plan: home vs daughter's home; HCOT vs OP OT pending progress Precautions: falls, R caitlin shoulder, R inattention Current Status: ADLs: Mobility: Therapies cane-based amb Min-Mod A. Recommend nursing Min A stand pivot with cane; wc-based in hallway. Grooming: NT Dressing: UB - NT. LB - NT. Feet - Total A. Bathing: NT Toileting: Min-Mod A amb w/ cane with therapies. Recommend nsg wc <> commode overlay pivot with grab bar CGA. 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 Contacts. R inattention noted. Mildly impulsive. Tangential and attention deficits noted; family reported personality similar. Assessment: Pt admitted s/p left periventricular/ putamen ischemic stroke. Pt previously IND ADLs and high-level IADLs; currently requires increased assist for all ADLs and functional transfers. Performance primarily limited by R side hemiparesis impairing RUE > RLE and functional cognition deficits. Discharge disposition options include home with need to do stairs and Mod I toileting transfers vs to daughter's home with increased daytime A available. ELOS 10-14 days, HC vs OP OT pending progress. Other Barriers to Discharge (DME, Family Training, etc): -Level of A. -Home environment: Stairs to access 2nd floor main bedroom/bathroom. Tub/shower combo. 1/2 bath available on main level; can temporarily live on main level if needed. S/o David works out of home as longo. Vs. Daughter's home: Mother in law suite with WIS. [place] able to provide daytime A per pt. DME: TBD pending progress. * Cuco Ramos OT - 07/07/2023 12:59 PM CDT 07/07/23 1100 Appointment Info Signing Clinician's Name / Credentials (OT) NOEL More/Soni Living Environment People in Home significant other Current Living Arrangements house Home Accessibility stairs to enter home;stairs within home Number of Stairs, Main Entrance 2 Stair Railings, Main Entrance none Number of Stairs, Within Home, Primary greater than 10 stairs Stair Railings, Within Home, Primary railing on right side (ascending) Transportation Anticipated family or friend will provide Living Environment Comments Lives in home with s/o David. 1/2 bathroom on main level; flight of stairs to access main bedroom and BR with tub/shower. Open to staying on main level of home and showering at family member's house if needed. Also discussed option to stay at ric Weldon's home with [id number] suite with AMINA. David works as longo; ric Weldon able to provide daytime A at her home if needed/stays there. Self-Care Usual Activity Tolerance good Current Activity Tolerance fair Equipment Currently Used at Home none Activity/Exercise/Self-Care Comment IND baseline. 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 Post-Acute Assessment Only Post-Acute Functional Assessment See below Previous Level of Function/Home Environm Bathing, Previous Functional Level independent Grooming, Previous Functional Level independent Dressing, Previous Functional Level independent Eating/Feeding, Previous Functional Level independent Toileting, Previous Functional Level independent BADLs, Previous Functional Level independent IADLs, Previous Functional Level independent Bed Mobility, Previous Functional Level independent Transfers, Previous Functional Level independent Household Ambulation, Previous Functional Level independent Stairs, Previous Functional Level independent Community Ambulation, Previous Functional Level independent Functional Cognition, Previous Functional Level IND Previous Level of Function IND General Information Onset of Illness/Injury or Date of Surgery 06/30/23 Referring Physician Ibeth Ellison MD Additional Occupational Profile Info/Pertinent History of Current Problem Per EMR Per EMR: 73 year old right hand dominant woman with past medical history of SHERRIE, HTN, HLD, CAD, anxiety, recurrent chest pain, multiple medication intolerances, and frequent PVCs who presented 06/30/23 with acute right sided weakness and changes in speech she was found to have acute left periventricular/putamen ischemic stroke, on presentation have hypertensive urgency, untreated HLD, stroke felt secondary to small vessel ischemic disease. Performance Patterns (Routines, Roles, Habits) right handed female Existing Precautions/Restrictions fall;other (see comments) (hemiplegic RUE) Limitations/Impairments safety/cognitive Left Upper Extremity (Weight-bearing Status) full weight-bearing (FWB) Right Upper Extremity (Weight-bearing Status) full weight-bearing (FWB) Left Lower Extremity (Weight-bearing Status) full weight-bearing (FWB) Right Lower Extremity (Weight-bearing Status) full weight-bearing (FWB) Heart Disease Risk Factors Medical history General Observations and Info Daughter Sarah present. Cognitive Status Examination Orientation Status orientation to person, place and time Safety Deficit impulsivity Attention Deficit distractible in noisy environment;distractible in quiet environment Cognitive Status Comments Word finding deficits. Mild R inattention noted. Mild emotional lability. Visual Perception Visual Impairment/Limitations (contacts) Impact of Vision Impairment on Function (Vision) Baseline R eye macular degeneration. No deficits noted in screens, conitnue to monitor functionally. Sensory Sensory Comments R hand 5th digit numb to light touch with pt reporting since ~6 months ago. No light touch, sterognosis, or proprioception deficits noted in RUE in screen. Posture Posture not impaired Range of Motion Comprehensive Comment, General Range of Motion LUE WNL. RUE PROM normal; no subluxation indicated in palpation screen; unable to perform functional AROM. Strength Comprehensive (MMT) Comment, General Manual Muscle Testing (MMT) Assessment LUE 5/5 MMT grossly. RUE scap elevation andretraction 5/5, sh flex 2-/5, scap protraction 2+/5, bicep 3/5, sup/pro 3-/5, wrist ext 2+/5, iv therapy nurse (see below). Hand Strength Left hand iv therapy nurse (pounds) 46 Right hand iv therapy nurse (pounds) 5 Muscle Tone Assessment Muscle Tone Quick Adds RUE;RLE Muscle Tone Assessment - RUE hypotonic Coordination Functional Limitations Decreased speed;Fine motor ADL performance impaired;Impaired ability to perform bilateral tasks;Object transport impaired;Reach to targets impaired Bed Mobility Comment (Bed Mobility) Min A bed mobility, cues to attend RLE Transfers Transfer Comments Min-Mod A amb bed <> BR with cues for RLE using quad cane; CGA pivot wc <> toilet with grab bar Clinical Impression Criteria for Skilled Therapeutic Interventions Met (OT) Yes, treatment indicated OT Diagnosis Impaired ADLs, IADLs, and functional transfers Influenced by the following impairments R side hemiparesis, R inattention, functional cog deficits OT Problem List-Impairments impacting ADL problems related to;activity tolerance impaired;balance;cognition;communication;coordination;mobility;motor control;muscle tone;range of motion (ROM);sensation;strength Assessment of Occupational Performance 5 or more Performance Deficits Identified Performance Deficits dressing, toileting, bathing, grooming, functional transfers, meal prep Planned Therapy Interventions (OT) ADL retraining;IADL retraining;balance training;cognition;E-stim;motor coordination training;neuromuscular re- education;ROM;strengthening;stretching;orthotic fitting/training;groups;transfer training;home program guidelines;progressive activity/exercise;risk factor education Clinical Decision Making Complexity (OT) detailed assessment/moderate complexity Risk & Benefits of therapy have been explained evaluation/treatment results reviewed;care plan/treatment goals reviewed;risks/benefits reviewed;current/potential barriers reviewed;participants voiced agreement with care plan;participants included;patient;daughter Clinical Impression Comments Pt admitted s/p left periventricular/putamen ischemic stroke. Pt previously IND ADLs and high-level IADLs; currently requires increased assist for all ADLs and functionaltransfers. Performance primarily limited by R side hemiparesis impairing RUE > RLE and functional cognition deficits. Discharge disposition options include home with need to do stairs and Mod I toileting transfers vs to daughter's home with increased daytime A available. ELOS 10-14 days, HC vs OP OT pending progress. OT Total Evaluation Time OT Eval, Moderate Complexity Minutes (99536) 20 OT Goals Therapy Frequency (OT) 6 times/week OT Predicted Duration/Target Date for Goal Attainment 07/16/23 OT Goals Hygiene/Grooming;Upper Body Dressing;Lower Body Dressing;Upper Body Bathing;Lower Body Bathing;Bed Mobility;Transfers;Toilet Transfer/Toileting;Cognition;OT Goal 1 OT: Hygiene/Grooming modified independent;within precautions OT: Upper Body Dressing Modified independent;including set-up/clothing retrieval;within precautions OT: Lower Body Dressing Modified independent;within precautions;including set- up/clothing retrieval OT: Upper Body Bathing Modified independent;using adaptive equipment;within precautions OT: Lower Body Bathing Modified independent;using adaptive equipment;with precautions OT: Bed Mobility Independent;supine to/from sitting;within precautions OT: Transfer Modified independent;with assistive device;within precautions OT: Toilet Transfer/Toileting Modified independent;cleaning and garment management;toilet transfer;using adaptive equipment;within precautions OT: Cognitive Patient/caregiver will verbalize understanding of cognitive assessment results/recommendations as needed for safe discharge planning OT: Goal 1 Pt will perform bathing transfer simulating discharge environment set up SBA utilizing adaptive equipment within precautions. Total Session Time Total Session Time (sum of timed and untimed services) 20 Post Acute Settings Only What unit is patient on? Acute Rehab Toilet Hygiene Describe performance SBA seated on toilet with commode overlay Toilet Transfer Describe performance Initially Mod A amb toilet with commode overlay with cane; second time wc-based able to perform pivot wc <> commode overlay SBA with grab bar Sit to Lying Comment Min A for RLE Lying to Sitting on Side of Bed Comment Min A, cues to RLE and RUE attention * Regina Vega, MEDICAL SCIENTIFIC LIAISON - 07/07/2023 12:57 PM CDT [facility] Post-Acute Rehab MEDICAL SCIENTIFIC LIAISON: Discharge Plan: TBD Precautions: fall Current Status: Hearing: WFL Vision: wears contacts/glassse Communication: Mild-moderate spastic dysarthria with 90% intelligibility in conversation. Word-finding is WFL. Cognition: Pt/family reports at baseline. Not assessed at ARU. Swallow: Regular diet/thin liquids. Not assessed at ARU. Assessment: Formal speech evaluation completed this date. MEDICAL SCIENTIFIC LIAISON administered [place] Dysarthria Assessment Tool (N-REI). Pt's verbal expression and speech are characterized by fluent word-finding, mildly strained/breathy vocal quality, reduced prosody, mild-mod imprecise articulation, and rapid rate of speech. Pt is judged to be ~90% intelligible in conversation with known context. No changes in swallowing, cognition, or word-finding from baseline per pt or family. Introduced compensatory speech strategies using SLOB acronym (slow down, loud voice, over-articulate, breath support) and pt implemented in conversation with mod cues overall. Discussed strategies to improve intelligibility and provided written handouts to pt/family. The pt will benefit from ongoing MEDICAL SCIENTIFIC LIAISON services targeting functional communication and intelligibility. Other Barriers to Discharge (Family Training, etc): None from MEDICAL SCIENTIFIC LIAISON perspective. * Regina Vega, MEDICAL SCIENTIFIC LIAISON - 07/07/2023 12:56 PM CDT Speech-Language Pathology: Speech Evaluation 07/07/23 1031 Appointment Info Signing Clinician's Name / Credentials (MEDICAL SCIENTIFIC LIAISON) Regina Vega MS [facility]-MEDICAL SCIENTIFIC LIAISON General Information Onset of Illness/Injury or Date of Surgery 07/06/23 Referring Physician Petra Dorado PA Patient/Family Therapy Goal Statement (MEDICAL SCIENTIFIC LIAISON) Go improve speech and play football with grandchildren Pertinent History of Current Problem The pt is a 73 year old woman with past medical history of HTN, HLD, multiple medication intolerances/ Mast Cell activation syndrome, , anxiety, and PVCs who presesented 06/30/23 with right sided weakness, slurred speech, and word finding difficulties. CT brain negative for acute stroke did demonstrate chronic microvascular ischemic changes. CTA head and neck negative, MRI brain with left periventricular/putamen infarct. Repeat Head CT stable 06/30. Seen by neurology etiology of stroke felt small vessel disease. She was started on aspirin and plavix. Initially recommended permissive hypertension than recommended starting 07/02/23 to slowly lower blood pressure. Echo EF 62% was not repeated this hospitalization, Hgb A1C 5.9% 03/2023. Lipid panel March 2023 total cholesterol 268, triglycerides 232, HDL 58, LDL 164. Recommended statin, reported allergies/intolerance to numerous medications. Functionally noted to have impaired strength, impaired activity tolerance, impaired coordination, impaired communication and safety awareness. She is currently stand by assist for eating. Is reqiring min assist for ambulation with walker. She is min assist for stairs. Min assist for toilet transfers, mod assist for lower body dressing, set up assist for eating. Noted to have right inattention. Mild dysarthria, apraxia and word finding difficulties. Willbenefit from ongoing PT, OT, and MEDICAL SCIENTIFIC LIAISON, with goals for MOD I with basic mobility and adls and improved ability to express needs. Reported right sided facial droop and slurred speech which gets worse towards the end of day due to fatigue. Speech evaluation completed per MD order. General Observations The pt is alert, pleasant, and agreeable to evaluation. Pt seen with her daughter, Angelica, present. The pt lives with her SO, David, in [place]. She has 3 children and 6 grandchildren. She is retired from [employer] prior to admission. She enjoys going to her cabin, helping others, cooking, and playing with grandchildren. She wears glasses or contacts for reading and distance. Pain Assessment Patient Currently in Pain No Type of Evaluation Type of Evaluation Speech, Language, Cognition Oral Motor Oral Musculature anomalies present Structural Abnormalities none present Mucosal Quality adequate Dentition (Oral Motor) Dentition (Oral Motor) natural dentition Facial Symmetry (Oral Motor) Facial Symmetry (Oral Motor) right side impairment Right Side Facial Asymmetry minimal impairment Lip Function (Oral Motor) Lip Range of Motion (Oral Motor) protrusion impairment Lip Sensitivity (Oral Motor) intact Lip Strength (Oral Motor) WNL Lip Coordination (Oral Motor) right side;minimal impairment Protrusion, Lip Range of Motion right side;minimal impairment Tongue Function (Oral Motor) Tongue ROM (Oral Motor) WNL Jaw Function (Oral Motor) Jaw Function (Oral Motor) WNL Facial Sensation Facial Sensation cheek impairment Cheek right side;minimal impairment Cough/Swallow/Gag Reflex (Oral Motor) Soft Palate/Velum (Oral Motor) WNL Volitional Throat Clear/Cough (Oral Motor) WNL Volitional Swallow (Oral Motor) WNL Vocal Quality/Secretion Management (Oral Motor) Vocal Quality (Oral Motor) strained/strangled;breathy Secretion Management (Oral Motor) WNL Motor Speech Vocal Loudness (Motor Speech) monoloudness Speech Intelligibility (Motor Speech) conversational level Breath Support (Motor Speech) impaired;minimal impairment Resonance (Motor Speech) hypernasal (minimal) Speech Fluency (Motor Speech) WFL Rate/Prosody (Motor Speech) monotone speech;rapid rate Articulation (Motor Speech) errors with increasing word length;imprecise articulation Pitch glide able;adequate pitch range Articulatory rate of movement (number of repetitions in 5 seconds) 9 Sequential Motion Rates (number of repetitions in 5 seconds) 8 Dysarthria differential diagnosis Spastic/UMN Phonation (motor speech) Loudness (soft);Strained-strangled quality Maximum phonation time (seconds) 6.7 S/Z Ratio 1.1 Conversational Level, Speech Intelligibility (Motor Speech) minimal impairment Auditory Comprehension Follows Commands (Auditory Comprehension) WNL Yes/No Questions (Auditory Comprehension) WNL Verbal Expression Conversational Speech (Verbal Expression) WNL Cognition Cognitive Status Not formally assessed - pt reports that she scored WNL on asssesment at previous hospital with MEDICAL SCIENTIFIC LIAISON Orientation Status (Cognition) oriented x 4 Affect/Mental Status (Cognition) WNL General Therapy Interventions Planned Therapy Interventions Communication Communication Improve speech intelligibility Clinical Impression Criteria for Skilled Therapeutic Interventions Met (MEDICAL SCIENTIFIC LIAISON Eval) Yes, treatment indicated MEDICAL SCIENTIFIC LIAISON Diagnosis Mild-moderate dysarthria Risks & Benefits of therapy have been explained evaluation/treatment results reviewed;care plan/treatment goals reviewed;risks/benefits reviewed;current/potential barriers reviewed;participants voiced agreement with care plan;participants included;patient;daughter Clinical Impression Comments Formal speech evaluation completed this date. MEDICAL SCIENTIFIC LIAISON administered [place] Dysarthria Assessment Tool (N-REI). Pt's verbal expression and speech are characterized by fluentword-finding, mildly strained/breathy vocal quality, reduced prosody, mild-mod imprecise articulatio n, and rapid rate of speech. Pt is judged to be ~90% intelligible in conversation with known context. No changes in swallowing, cognition, or word- finding from baseline per pt or family. Introduced compensatory speech strategies using SLOB acronym (slow down, loud voice, over-articulate, breath support) and pt implemented in conversation with mod cues overall. Discussed strategies to improve intelligibility and provided written handouts to pt/family. The pt will benefit from ongoing MEDICAL SCIENTIFIC LIAISON services targeting functional communication and intelligibility. MEDICAL SCIENTIFIC LIAISON Total Evaluation Time Eval: Sound production Minutes (artic, phonology, apraxia, dysarthria) (63839) 60 MEDICAL SCIENTIFIC LIAISON Discharge Planning MEDICAL SCIENTIFIC LIAISON Plan MEDICAL SCIENTIFIC LIAISON: Review compensatory speech strategies, practice implementing over- articulation and prosody, record voice or use mirror for feedback MEDICAL SCIENTIFIC LIAISON Discharge Recommendation home with outpatient therapy services Total Session Time Total Session Time (sum of timed and untimed services) 60 Post Acute Settings Only What unit is patient on? Acute Rehab MEDICAL SCIENTIFIC LIAISON - Acute Rehab Center Time Individual Time (minutes) - MEDICAL SCIENTIFIC LIAISON 60 (speech) Group Time (minutes) - MEDICAL SCIENTIFIC LIAISON 0 Concurrent Time (minutes) - MEDICAL SCIENTIFIC LIAISON 0 Co-Treatment Time (minutes) - MEDICAL SCIENTIFIC LIAISON 0 ARC Total Session Time (minutes) - MEDICAL SCIENTIFIC LIAISON 60 ARC Daily Total Session Time MEDICAL SCIENTIFIC LIAISON ARC Daily Total Session Time 60 ARC Daily Rehab Total Minutes 120 Expression Expression Comment MEDICAL SCIENTIFIC LIAISON: Formal speech evaluation completed this date. See evaluation note for details. * Petra Perez, PT - 07/07/2023 12:23 PM CDT 07/07/23 4484 Appointment Info Signing Clinician's Name / Credentials (PT) Petra Perez, DPT Living Environment People in Home significant other Current Living Arrangements house Home Accessibility stairs to enter home;stairs within home Number of Stairs, Main Entrance 2 (2+ 2) Stair Railings, Main Entrance none Number of Stairs, Within Home, Primary greater than 10 stairs Stair Railings, Within Home, Primary railing on right side (ascending) Transportation Anticipated family or friend will provide Living Environment Comments Pt lives wtih s/o who works during the day, pt is mostly home alone. [place] has 2 + 2 LAUREN w/o rails, has several flights of stairs at home needs to navigate 2 flights toaccess all needed areas (one flight has R rail, one has L). Pt bathroom has tub/shower combo Daughters house accessible able to stay there in basment- has walk in shower. Self-Care Usual Activity Tolerance good Current Activity Tolerance moderate Equipment Currently Used at Home none Activity/Exercise/Self-Care Comment Pt previously IND in ADLs, amb w/o AD. Endorsed she has hx of passing out. Active in playing football with grandkids. General Information Onset of Illness/Injury or Date of Surgery 06/30/23 Referring Physician Petra Dorado, PA Patient/Family Therapy Goals Statement (PT) To be indpendent, improve R arm function Pertinent History of Current Problem (include personal factors and/or comorbidities that impact thePOC) Per EMR: 73 year old right hand dominant woman with past medical history of SHERRIE, HTN, HLD, CAD, anxiety, recurrent chest pain, multiple medication intolerances, and frequent PVCs who presented 06/30/23 with acute right sided weakness and changes in speech she was found to have acute left periventricular/putamen ischemic stroke, on presentation have hypertensive urgency, untreated HLD, strokefelt secondary to small vessel ischemic disease. Existing Precautions/Restrictions fall (R hemiplegic shoulder) Pain Assessment Patient Currently in Pain No Integumentary/Edema Integumentary/Edema no deficits were identifed Posture Posture Comments R shoulder protraction Range of Motion (ROM) ROM Comment ROM impiared 2/2 hemiparesis Strength (Manual Muscle Testing) Strength Comments R hemiparesis, UE worse than LE. Trace in shoulder, none distally. Balance Balance Comments impaired dynamic seated balance when lifting LE, static seated balance intact Sensory Examination Sensory Perception Comments light touch intact B, endorses slight decreased light touch sensation when tested simultaneously R/L. Proprioception intact at ankle. Coordination Coordination Comments R LE dysmetria and impaired CHEO as seen in toe tap and heel up andrews Muscle Tone Muscle Tone Comments hypotonia in R UE Clinical Impression Criteria for Skilled Therapeutic Intervention Yes, treatment indicated PT Diagnosis (PT) Force production deficit (R UE), fractionated movement deficit ( R LE), sensory detection and weighting deficit Influenced by the following impairments R hemiparesis, coordination impairment in R LE, impaired activity tolerance, impaired dynmaic/static standing balance Functional limitations due to impairments bed mobility, transfers, gait, wc mobility, stairs Clinical Presentation (PT Evaluation Complexity) evolving Clinical Presentation Rationale Pt requires close monitoring of vitals, >3 functional impairments Clinical Decision Making (Complexity) moderate complexity Planned Therapy Interventions (PT) balance training;bed mobility training;gait training;groups;homeexercise program;neuromuscular re-education;motor coordination training;patient/family education;postural re-education;ROM (range of motion);strengthening;stair training;stretching;transfer training;wheelchair management/propulsion training;progressive activity/exercise;home program guidelines;riskfactor education Risk & Benefits of therapy have been explained evaluation/treatment results reviewed;care plan/treatment goals reviewed;risks/benefits reviewed;current/potential barriers reviewed;participants voiced agreement with care plan;participants included;patient;daughter Clinical Impression Comments Pt presents with R hemiparesis (UE weakner than LE), fractionated movement deficit ( R LE), sensory detection and weighting deficit, in presence of impaired activity tolerance and impaired standing balance. Pt house has several flights of stairs, and is often home alone. Pt also has more accessible daughters house as an option at discharge. Pt with supportive family, who are planning to provide intermittent assist. Goals for Iggy ambulatory based mobility, intermittent assist for stairs. ELOS to achieve these goals 10 days. PT Total Evaluation Time PT Eval, Moderate Complexity Minutes (08937) 30 Physical Therapy Goals PT Frequency 6x/week PT Predicted Duration/Target Date for Goal Attainment 07/16/23 PT Goals Bed Mobility;Transfers;Gait;Stairs;Wheelchair Mobility;PT Goal 1 PT: Bed Mobility Independent PT: Transfers Modified independent PT: Gait Greater than 200 feet;Modified independent PT: Stairs Greater than 10 stairs;Minimal assist (2 steps w/o rail, 10+ with single rail) PT: Wheelchair Mobility 50 feet PT: Goal 1 car transfer CGA Interventions Interventions Quick Adds Gait Training Therapeutic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 training: scheduled with pt daughter 07/13 * Plan of Care - Cuco Ramos, OT - 07/13/2023 1:33 PM CDT [facility] OT: Discharge Plan: daughter's home with A; OP OT Precautions: falls, R caitlin shoulder, BP OK for therapy if systolic <200 and asymptomatic. Current Status: ADLs: Mobility: Therapies cane-based amb CGA-Min A.. Recommend nursing Min A cane amb in room/to bathroomwith A at R side, wc-based hallway. Grooming: Min A standing. Dressing: UB - Mod A. LB - Mod A. Feet - SBA using shoe horn for shoes. Bathing: Declined shower; clinically reason transfer CGA pivot wc <> ETB with grab bar and Mod A tasks. Toileting: Transfer amb cane <> commode overlay Min A. SBA cares seated, CGA-Min A c/m. Recommend nsg amb Min A cane <> commode overlay, guard R side. 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 Contacts. R inattention noted. Mildly impulsive. Tangential and attention deficits noted; family reported personality similar. Assessment: Pt seen for interdisciplinary rounds, see POC note for details. Daughter and pt verbalizing concerns regarding Saturday 07/15 discharge date; potential for short extension pending family training tomorrow and family readiness needs. Other Barriers to Discharge (DME, Family Training, etc): Level of A. Home environment: Daughter's home initially; flight of stairs to mother in law suite with AMINA. Fatemeh able to provide daytime A. Family training: Thursday 07/13 with yin Weldon PT/MEDICAL SCIENTIFIC LIAISON/OT. DME: Owns shower chair, has access to manual wc. TBD pending progress. * Plan of Care - Sujata Mo RN - 07/13/2023 11:38 AM CDT Goal Outcome Evaluation: Plan of Care Reviewed With: patient Overall Patient Progress: no changeOverall Patient Progress: no change Patient is alert and oriented, able to make needs known. Using call light approprietly.Pleasant andcooperative with cares. Offers no complaints of chest pain or shortness of breath. Continues to have right shoulder pain. Topicals helpful for pain management. Daughter bedside and involved in cares.Patient up with a contact guard assist and cane. Working each time she is up to the bathroom to useher right hand to throw away paper towel. Given a dose of PRN tylenol after working with therapy tohelp with shoulder pain. * Plan of Care - Nora Champagne SLP - 07/13/2023 9:52 AM CDT [facility] MEDICAL SCIENTIFIC LIAISON: Discharge Plan: home with dtr ? 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 Word-finding is WFL. Cognition: Pt/family reports at baseline. Not assessed at ARU. Swallow: Regular diet/thin liquids. Not assessed at ARU. Assessment: Patient's daughter present. Patient reported Zyrtec affected alertness and speech yesterday. Today patient speech seems better per patient. Patient reported voice is slightly softer than usual. Patient stated speech strategies of slowing rate, good breath support, over-articulating. Patient also reported tongue feels enlarged when talking but ROM functional or at baseline. Patient participated in conversation using speech strategies given occasional minimal cues. Speech intelligibility judged 95% in conversation. Other Barriers to Discharge (Family Training, etc): None from MEDICAL SCIENTIFIC LIAISON perspective. * Plan of Care - Ibeth Ellison MD - 07/13/2023 2:59 AM CDT Acute Rehab Care Conference/Team Rounds Type: Team Rounds Present: Dr. Ibeth Ellison, Petra Dorado PA, Dr. Cassandra Jackson Neuropsychologist, Petra Perez PT, Cuco Ramos OT, Marin Seymour MEDICAL SCIENTIFIC LIAISON, Vanessa WADESW, Sujata Randle RD, Magali Martinez RN, and Miya Restrepo Patient and dtr at bedside. Discharge Barriers/Treatment/Education Rehab Diagnosis: Left hemisphere ischemic stroke Active Medical Co-morbidities/Prognosis: Patient Active Problem List Diagnosis Stroke (cerebrum) (H) Safety: Pt is A/O x4. No impulsive behavior overnight, able to make needs known. Transfers A1 cane.Call light in reach, bed alarm on. Pain: C/o right shoulder tenderness in morning, scheduled Voltaren cream applied early per pt request before therapy. Medications, Skin, Tubes/Lines: Takes medications whole with water. No skin concerns, lines, or drains. Swallowing/Nutrition: Regular solids/thin liquids (0), not formally evaluated on ARU. Bowel/Bladder: Continent B/B, LBM 5/. Psychosocial: . Adult children supportive. 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 Anxiety reported by family. No substance abuse or financial concerns reported. ADLs/IADLs: Pt progressing well during stay. Current function SBA-Mod A ADLs and CGA-Min A cane-based functional transfers. Performance primarily limited by R side hemiparesis impairing dynamic standing posturalcontrol, RLE and RUE weakness and coordination deficits with UE < LE. Pt demonstrating good RUE sensorimotor recovery; initially presenting hypotonic with grossly 1-2/5 MMT and currently demonstrating return proximally and distally grossly ~-3/5 MMT. Plan for discharge to daughter's home initially with more daytime A available. Pt and family expressing concerns whether discharge readiness appropriate for current target discharge date 07/15; family training scheduled for Thursday 07/13 with daughter to check-in on feasibility of level of A for discharge environment vs extension of ARU stay. Mobility: Pt demonstrating good progressin functional mobility, dynamic balance, and coordination. Currently, pt demonstrates bed mobility SBA, transfers SBA w/ NBQC, amb >300' with NBQC CGA, stairs 8 x6'' steps with single rail CGA-Verna. PASS score predicts pt will be ambulating independently at 3 mo, however currently pt demonstrates falls risk as evidenced by LYLE. DME needs include quad cane, potentially transport wc for community mobility. Family training planned for 07/13 with pt daughter who plans to provide initial assist at discharge. Cognition/Language: Language intact, no changes in cognition reported by both pt and family members. Pt with min-mld dysarthria, intelligibility improved with training in and good carryover of motor speech strategies- breath support, loud, over-articulate, slow. Pt upset prior day's MEDICAL SCIENTIFIC LIAISON session that speech sounding worse than prior days, pt rated at 95% intelligibility by MEDICAL SCIENTIFIC LIAISON. Pt reassured by edu from MEDICAL SCIENTIFIC LIAISON about factors that can impact speech function day to day, over course of day that shouldimprove with time as pt's over health and functioning improves. No ongoing MEDICAL SCIENTIFIC LIAISON recommended upon discharge from ARU. Community Re-Entry: Anticipate community mobility mixed amb and wc based, recommending OP therapy at discharge. Transportation: Car transfer goal met (Ax1) anticipate family to assist. Decision maker: self Plan of Care and goals reviewed and updated. Discharge Plan/Recommendations Fall Precautions: continue Estimated length of stay: Anticipating discharge 07/15-09/2023 Overall plan for the patient: Continue with high intensity therapy at 3 hours/day addressing deficits in ADLs working on speech impairments and right- sided weakness. Utilization Review and Continued Stay Justification Medical Necessity Criteria: For any criteria that is not met, please document reason and plan for discharge, transfer, or modification of plan of care to address. Requires intensive rehabilitation program to treat functional deficits?: Yes Requires 3x per week or greater involvement of rehabilitation physician to oversee rehabilitation program?: Yes Requires rehabilitation nursing interventions?: Yes Patient is making functional progress?: Yes There is a potential for additional functional progress? Yes Patient is participating in therapy 3 hours per day a minimum of 5 days per week or 15 hours per week in 7 day period?:Yes Has discharge needs that require coordinated discharge planning approach?:Yes Final Physician Sign off Statement of Approval: I have reviewed this document and aprove its content. Patient Goals Social Work Goals: Confirm discharge recommendations with therapy, coordinate safe discharge plan and remain available to support and assist as needed. OT Predicted Duration/Target Date for Goal Attainment: 07/16/23 Therapy Frequency (OT): 6 times/week OT: Hygiene/Grooming: modified independent, within precautions OT: Upper Body Dressing: Modified independent, including set-up/clothing retrieval, within precautions OT: Lower Body Dressing: Modified independent, within precautions, including set-up/clothing retrieval OT: Upper Body Bathing: Modified independent, using adaptive equipment, within precautions OT: Lower Body Bathing: Modified independent, using adaptive equipment, with precautions OT: Bed Mobility: Independent, supine to/from sitting, within precautions OT: Transfer: Modified independent, with assistive device, within precautions OT: Toilet Transfer/Toileting: Modified independent, cleaning and garment management, toilet transfer, using adaptive equipment, within precautions OT: Cognitive: Patient/caregiver will verbalize understanding of cognitive assessment results/recommendations as needed for safe discharge planning OT: Goal 1: Pt will perform bathing transfer simulating discharge environment set up SBA utilizing adaptive equipment within precautions. PT Predicted Duration/Target Date for Goal Attainment: 07/16/23 PT Frequency: 6x/week PT: Bed Mobility: Independent PT: Transfers: Modified independent PT: Gait: Greater than 200 feet, Modified independent PT: Stairs: Greater than 10 stairs, Minimal assist (2 steps w/o rail, 10+ with single rail) PT: Wheelchair Mobility: 50 feet PT: Goal 1: car transfer CGA MEDICAL SCIENTIFIC LIAISON Predicted Duration/Target Date for Goal Attainment: 07/18/23 MEDICAL SCIENTIFIC LIAISON Frequency: 6x/week MEDICAL SCIENTIFIC LIAISON: Patient will demonstrate 95% or greater speech intelligibility at connected speech level with use of trained motor speech strategies. RN: Patient/Family Goal 1: Medication Management: Pt will be able to identify medications, dosage and when to take the meds during her stay at [facility] RN Goal 2: Skin Integrity: Pt will maintain good skin integrity by proper skin hygiene and safe transfers. RN Goal 3: Safety Management: Pt will be safe from falls and injuries by ensuring that safety alarmis in place and call light within reach. * Plan of Care - Alissa Jorgensen RN - 07/12/2023 6:54 PM CDT Goal Outcome Evaluation: Plan of Care Reviewed With: patient Overall Patient Progress: no change A/O x 4, calm and relax this shift, afebrile, denies SOB, paint to right shoulder managed with scheduled Voltaren gel. Requested for all evening meds be given early as she wants to rest. Patient requesting Zyrtec to be scheduled at bedtime instead, felt sleepy, tired and groggy after taking thisin AM and not able able to perform well with therapy, note left to provider for this. Refused scheduled Xanax at bedtime also, doesn't feel that she needs this, as feeling groggy with this too. Noacute issues this shift, comfortable at this time, will continue POC. Patient's most recent vital signs are: Vital signs: BP: 174/79(asymptomatic), baseline reading, no PRN for this, given scheduled HTN meds , refused rechecked after given , doesn't want to be disturbed when sleeping Temp: 97.7 HR: 69 RR: 17 SpO2: 95 % Patient does not have new respiratory symptoms. Patient does not have new sore throat. Patient does not have a fever greater than 99.5. * Plan of Care - Marin Seymour SLP - 07/12/2023 5:12 PM CDT [facility] MEDICAL SCIENTIFIC LIAISON: Discharge Plan: home with dtr ? 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 Word-finding is WFL. Cognition: Pt/family reports at baseline. Not assessed at ARU. Swallow: Regular diet/thin liquids. Not assessed at ARU. Assessment: Pt reported feeling very fatigued most of day after taking a medication, that her speech is worse than prior days. Pt educated in impact of fatigue, some medications on motor speech function. Facilitated unstructured practice of trained motor speech strategies with open-ended question elliciting novel response. Pt demo'd good use of all strategies with no cues from MEDICAL SCIENTIFIC LIAISON, 100% intelligible to MEDICAL SCIENTIFIC LIAISON but pt stated multiple times how badly her speech sounded to her. Other Barriers to Discharge (Family Training, etc): None from MEDICAL SCIENTIFIC LIAISON perspective. * Plan of Care - Petra Perez PT - 07/12/2023 4:25 PM CDT [facility] PT: Discharge Plan: To [facility], OP PT Precautions: Falls, R hemiplegic shoulder, R inattention. BP OK for therapy if systolic <200 andasymptomatic. Current Status: Bed Mobility: Iggy Transfer: CGA-Verna w/ NBQC cane Gait: 150' CGA w/ NBQC, OK to amb to bathroom with nsg and quad cane Stairs: 12 x6'' stairs, single rail, Verna reciprocal stepping Balance: Seated balance static. Intermittent R lean w/ unsupported standing Outcome Measures: PASS: 07/07: 29/ Lyle: 07/07: 33/ Assessment: Pt engaged in gait training circuits, ongoing stairs training, and reducing reliance onquad cane. Pt improving in reciprocal patterning on stairs CGA-Verna. Other Barriers to Discharge (DME, Family Training, etc): DME: quad cane vs LRAD Family training: scheduled with pt daughter 5/3 * Plan of Care - Radha Nash OTR - 07/12/2023 3:24 PM CDT [facility] OT: Discharge Plan: daughter's home with A; OP OT Precautions: falls, R caitlin shoulder, BP OK for therapy if systolic <200 and asymptomatic. Current Status: ADLs: Mobility: Therapies cane-based amb CGA-Min A.. Recommend nursing Min A cane amb in room/to bathroomwith A at R side, wc-based hallway. Grooming: Min A standing. Dressing: UB - Mod A. LB - Mod A. Feet - SBA using shoe horn for shoes. Bathing: Declined shower; clinically reason transfer CGA pivot wc <> ETB with grab bar and Mod A tasks. Toileting: Transfer amb cane <> commode overlay Min A. SBA cares seated, CGA-Min A c/m. Recommend nsg amb Min A cane <> commode overlay, guard R side. 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 Contacts. R inattention noted. Mildly impulsive. Tangential and attention deficits noted; family reported personality similar. Assessment: Intervention focus on RUE sensorimotor retraining with use of FES Xcite and proprioceptive tasks. Pt continues to show excellent UE return. Pt reports that family would like her to stay at [facility] longer than the anticipated discharge date. Other Barriers to Discharge (DME, Family Training, etc): Level of A. Home environment: Daughter's home initially; flight of stairs to mother in law suite with WIS. Weldon able to provide daytime A. Family training: Thursday 07/13 with yni Weldon PT/MEDICAL SCIENTIFIC LIAISON/OT. DME: Owns shower chair, has access to manual wc. TBD pending progress. * Plan of Care - Sujata Mo RN - 07/12/2023 11:16 AM CDT Goal Outcome Evaluation: Plan of Care Reviewed With: patient Overall Patient Progress: no changeOverall Patient Progress: no change Patient is alert and oriented, able to make needs known. Using call light approprietly. Complained of a headache today.This is ongoing. Also has some minor shoulder pain. Relieved with topicals. Patient denies chest pain or shortness of breath. Has a right sided facial droop and right upper arm weak ness. This is baseline. States she still hasn't accepted that she has had a stroke and that she is struggling with the diagnosis. Voices frustration that she really enjoys helping others and struggles being the one who needs assistance. Emotional support given and appreciated. Working well with therapy today. States she looks forward to therapy. Had family bedside. Supportive and involved in her care. * Plan of Care - Ani Ames RN - 07/12/2023 2:54 AM CDT Goal Outcome Evaluation: Overall Patient Progress: no changeOverall Patient Progress: no change Patient is alert and oriented x4. Per report received from Pm RN, patient does not want to be disturbed and wants to sleep tonight. BP was not rechecked prior. Will attempt to check if when patient wakes. No complaints of pain, no anxiety, sob, dizziness or any new weakness observed. Stroke affected right side extremities. Ambulates as A1 with the cane. Continent of both Bowel and bladder to the bathroom. Continue poc. Had a large BM this morning assisted by NA. * Plan of Care - Stella Vega RN - 07/11/2023 10:41 PM CDT Goal Outcome Evaluation: Plan of Care Reviewed With: patient Overall Patient Progress: improving Outcome Evaluation: patient using call light and awaiting assist from staff. A1, cane, GB. no chnages in skin integrity. Declines melatonin; sticky note left for providers. B/P elevated; asymptomatic. Pt declined recheckof VS if asleep. Patient sleeping on reassessment. Complained of R scapular pain treated with prn tylenol and heat; requested scheduled voltaren at HS.will start liquid zyrtec in AM. * Plan of Care - Jono Butler PTA - 07/11/2023 4:39 PM CDT [facility] PT: Discharge Plan: To daughters house, OP PT Precautions: Falls, R hemiplegic shoulder, R inattention. BP OK for therapy if systolic <200 andasymptomatic. Current Status: Bed Mobility: Iggy Transfer: Verna w/ NBQC cane Gait: 150' Verna w/ NBQC, OK to amb to bathroom with nsg and quad cane Stairs: NT Balance: Seated balance static. Intermittent R lean w/ unsupported standing Outcome Measures: PASS: 07/07: Lyle: 07/07: Assessment: pt cont to work hard each PT session, still impulsive at time causing mild instability.V.c for safety limited carryover Other Barriers to Discharge (DME, Family Training, etc): DME: quad cane vs LRAD Family training: scheduled with pt daughter 53 * Plan of Care - Cuco Ramos OT - 07/11/2023 3:11 PM CDT [facility] OT: Discharge Plan: daughter's home with A; OP OT Precautions: falls, R caitlin shoulder, BP OK for therapy if systolic <200 and asymptomatic. Current Status: ADLs: Mobility: Therapies cane-based amb CGA-Min A.. Recommend nursing Min A cane amb in room/to bathroomwith A at R side, wc-based hallway. Grooming: Min A standing. Dressing: UB - Mod A. LB - Mod A. Feet - SBA using shoe horn for shoes. Bathing: Declined shower; clinically reason transfer CGA pivot wc <> ETB with grab bar and Mod A tasks. Toileting: Transfer amb cane <> commode overlay Min A. SBA cares seated, CGA-Min A c/m. Recommend nsg amb Min A cane <> commode overlay, guard R side. 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 Contacts. R inattention noted. Mildly impulsive. Tangential and attention deficits noted; family reported personality similar. Assessment: FES for RUE sensorimotor recovery, see POC note for details. Other Barriers to Discharge (DME, Family Training, etc): Level of A. Home environment: Daughter's home initially; flight of stairs to mother in law suite with WIS. Weldon able to provide daytime A. Family training: Thursday 07/13 with yin Weldon PT/MEDICAL SCIENTIFIC LIAISON/OT. DME: Owns shower chair, has access to manual wc. TBD pending progress. * Plan of Care - [facility] Elder Chung RN - 07/11/2023 2:06 PM CDT Orientation:A/O x4, VSS on RA with still elevated bps but improved. Bowel:continent to the bathroom. LBM 07/10. Bladder: Continent to the bathroom. Pain:minimal c/o pain to right shoulder/ shoulder blade this shift, lidocaine cream and PRN Tylenolgiven. Intervention was effective. Ambulation/Transfers: up with A1 gait belt with cane. Diet/ Liquids:Regular thin, pills whole. Skin: intact. Bed alarm on for safety, call light within reach. Continue with POC. No Acute event noted during shift. * Plan of Care - Kurtis Wu RN - 07/11/2023 6:29 AM CDT Goal Outcome Evaluation: Plan of Care Reviewed With: patient Overall Patient Progress: improvingOverall Patient Progress: improving Patient is alert and oriented. Able to use a call light and make her needs known. Assist of x 1 with a cane. Right side weakness. Cont of BB, LBM, 07/09 voids spontaneously. Denies pain, SOB, or discomfort at this time. Call light within reach, Bed alarm on. Slept well through the night. Nursing staff will continue with POC. * Plan of Care - Arcelia Ortiz RN - 07/10/2023 10:43 PM CDT Goal Outcome Evaluation: Plan of Care Reviewed With: patient Overall Patient Progress: no change Outcome Evaluation: Patient got a shower this evening. Orientation:A/O x4, VSS on RA with still elevated bps. Bowel:continent to the bathroom. LBM 07/09. Bladder: Continent to the bathroom. Pain:minimal c/o pain to right shoulder/ shoulder blade this shift, hot pack applied prn and Voltaren applied at HS. Ambulation/Transfers: up with assist one gait belt and cane to the bathroom. Diet/ Liquids:Regular thin, pills whole. Skin: intact. Bed alarm on for safety, call light within reach. Continue with POC. * Plan of Care - Andres Worthy MD - 07/10/2023 8:09 PM CDT Paged at 7:58 pm - pt requesting scheduled xanax be changed to home dose which was half of what sheis currently taking. This is for anxiety. Adjusted dose * Plan of Care - Cuco Ramos OT - 07/10/2023 3:38 PM CDT [facility] OT: Discharge Plan: daughter's home with A; HCOT vs OP OT pending progress Precautions: falls, R caitlin shoulder, BP OK for therapy if systolic <200 and asymptomatic. Current Status: ADLs: Mobility: Therapies cane-based amb CGA-Min A.. Recommend nursing Min A cane amb in room/to bathroomwith A at R side, wc-based hallway. Grooming: Min A standing. Dressing: UB - Mod A. LB - Mod A. Feet - SBA using shoe horn for shoes. Bathing: Declined shower; clinically reason transfer CGA pivot wc <> ETB with grab bar and Mod A tasks. Toileting: Transfer amb cane <> commode overlay Min A. SBA cares seated, CGA-Min A c/m. Recommend nsg amb Min A cane <> commode overlay, guard R side. 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 Contacts. R inattention noted. Mildly impulsive. Tangential and attention deficits noted; family reported personality similar. Assessment: In collab with PT, progressed transfer to in-room amb cane based Min A with nsg. Scheduled family training with pt and yin Weldon; confirmed daughter's home as discharge location. Other Barriers to Discharge (DME, Family Training, etc): Level of A. Home environment: Daughter's home initially; flight of stairs to mother in law suite with WIS. Weldon able to provide daytime A. Family training: Thursday 07/13 with yin Weldon PT/MEDICAL SCIENTIFIC LIAISON/OT. DME: Owns shower chair, has access to manual wc. TBD pending progress. * Plan of Care - Petra Perez, PT - 07/10/2023 3:04 PM CDT [facility] PT: Discharge Plan: To daughters house, OP PT Precautions: Falls, R hemiplegic shoulder, R inattention. BP OK for therapy if systolic <200 andasymptomatic. Current Status: Bed Mobility: Iggy Transfer: Verna w/ NBQC cane Gait: 150' Verna w/ NBQC, OK to amb to bathroom with nsg and quad cane Stairs: NT Balance: Seated balance static. Intermittent R lean w/ unsupported standing Outcome Measures: PASS: 07/07: Lyle: 07/07: / Assessment: Progressed pt to amb into bathroom with nsg assist with quad cane. Stairs training, gait training with directional changes and additional resistance for increased intensity. Pt BP elevated, PA/MD OK BP to <200 systolic as long as pt asymptomatic. Other Barriers to Discharge (DME, Family Training, etc): DME: quad cane vs LRAD Family training: scheduled with pt daughter 5/3 * Plan of Care - Guerda Claire RN - 07/10/2023 2:49 PM CDT Goal Outcome Evaluation: VS: BP (!) 169/67 (BP Location: Left arm, Patient Position: Semi-Montez's, Cuff Size: Adult Regular) Pulse 90 Temp 98.2 ??F (36.8 ??C) (Oral) Resp 20 Wt 66.5 kg (146 lb 9.7 oz) SpO2 97% O2: 97% RA Output: Adequate; no pain on urination Last BM: 07/10/2023 Activity: Assist x1 w/cane; R hemiparesis Skin: No issues Pain: Managed with tylenol, hot packs- back CMS: A/O x4; Denies SOB, chest pain, headache, n/v, numbness on R 5th digit Dressing: none Diet: Regular, thin, pills whole LDA: none Equipment: cane Plan: Continue POC Additional Info: * Plan of Care - Lula Laguna RN - 07/10/2023 7:22 AM CDT Goal Outcome Evaluation: Plan of Care Reviewed With: patient Overall Patient Progress: no changeOverall Patient Progress: no change Patient alert and oriented x4 able to make needs known and use call light. Denies SOB, chest pain and lightheadedness. Bed alarm on for safety. tolerating SPT with gait belt to wheelchair. -voiding without difficulty. * Plan of Care - Arcelia Ortiz RN - 07/09/2023 8:50 PM CDT Goal Outcome Evaluation: Plan of Care Reviewed With: patient Overall Patient Progress: improvingOverall Patient Progress: improving Outcome Evaluation: Right shoulder pain improved this shift. bps still elevated but in better rangethan has been. Orientation:A/O x4, VSS on RA with still elevated bps but improved. Bowel:continent to the bathroom. LBM 07/08. Bladder: Continent to the bathroom. Pain:minimal c/o pain to right shoulder/ shoulder blade this shift, hot pack applied prn. Ambulation/Transfers: up with assist one gait belt stand pivot to w/c. Diet/ Liquids:Regular thin, pills whole. Skin: intact. Bed alarm on for safety, call light within reach. Continue with POC. * Plan of Care - Jack Davenport, PT - 07/09/2023 4:28 PM CDT [facility]: Discharge Plan: Home (to pt house or daughters, pending progress), OP PT (pending stair progress) Precautions: Falls, R hemiplegic shoulder, R inattention Use of Gait belt with all transfers per patient and family Current Status: Bed Mobility: Iggy Transfer: Verna w/ NBQC cane Gait: 150' Verna w/ NBQC, therapy only. Wc based for nsg to bathroom. Stairs: NT Balance: Seated balance static. Intermittent R lean w/ unsupported standing Outcome Measures: PASS: 07/07: / Lyle: 07/07: 33/56 10MWT: 07/09: Assessment: Daughter present at therapy session and wanted to make sure all personal were using gait belt for all transfers. Pt reported back pain and dizziness with >3 hours up in chair and may benefit from cueing for rest every 2 hours until tolerance improves. Needs continued RLE strength andstability toward improved gait. Other Barriers to Discharge (DME, Family Training, etc): DME: quad cane vs LRAD Family training likely required on stairs with spouse/daughters/other family. * Plan of Care - Marielena Bain, OTR - 07/09/2023 12:14 PM CDT [facility] OT: Discharge Plan: home with s/o A vs daughter's home; HCOT vs OP OT pending progress Precautions: falls, R caitlin shoulder, R inattention Current Status: ADLs: Mobility: Therapies cane-based amb CGA short distances. Recommend nursing Min A stand pivot with cane; wc-based in hallway. Grooming: Min A standing. Dressing: UB - Mod A. LB - Mod A. Feet - SBA using shoe horn for shoes. Bathing: Declined shower; clinically reason transfer CGA pivot wc <> ETB with grab bar and Mod A tasks. Toileting: Progressing cane-based amb with therapies only d/t Min-Mod A. SBA cares, Min A c/m. Recommend nsg wc <> commode overlay pivot with grab bar CGA. 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 Contacts. R inattention noted. Mildly impulsive. Tangential and attention deficits noted; family reported personality similar. Assessment: Patient progressing with ambulatory ADLs, ambulated to/from bathroom with cane with CGA3x during session. Focus of session on NM re-ed RUE with patient very motivated. Other Barriers to Discharge (DME, Family Training, etc): -Level of A. -Home environment: Stairs to access 2nd floor main bedroom/bathroom. Tub/shower combo. 1/2 bath available on main level; can temporarily live on main level if needed. S/o David works out of home as longo. Vs. Daughter's home: Mother in law suite with WIS. Weldon able to provide daytime A per pt. DME: Owns shower chair, has access to manual wc. TBD pending progress. * Plan of Care - Lula Laguna RN - 07/09/2023 7:05 AM CDT Goal Outcome Evaluation: Plan of Care Reviewed With: patient Overall Patient Progress: no changeOverall Patient Progress: no change Patient alert and oriented x4 able to make needs known and use call light. Denies SOB, chest pain and lightheadedness. Bed alarm on for safety. tolerating SPT with gait belt to wheelchair. Refused scheduled Melatonin but requested PRN xanax. Noted to be HTN at bedtime asymptomatic, with scheduled HTN medications given. -voiding without difficulty. * Plan of Care - Charlotte Zimmerman RN - 07/08/2023 7:51 PM CDT Goal Outcome Evaluation: Plan of Care Reviewed With: patient Overall Patient Progress: no change Outcome Evaluation: Pt. alert oriented x4, calls appropriately. Denies pain SOB and chest pain. Continent of bowel and bladder LBM 07/06/23, pt feels constipated, Prune juice given.PRN Alprazolam given this AM before therapy. BP monitored regularly this shift. Regular thin with good appetite. A1 SPTto wheelchair for transfer. Cooperates with cares and therapy. Safety measures in place, call lightwithin reach. Will continue with current POC. * Pharmacy-Medication Regimen Review - Serrato-Fortino Hanna [facility] - 07/08/2023 3:45 PM CDT Pharmacy Medication Regimen Review Miya Restrepo is a 73 year old female who is currently in the Acute Rehab Unit. Assessment: All medications have an appropriate indications, durations and no unnecessary use was found Plan: - Continue all medications as ordered; consider adding hold parameters for telmisartan. Attending provider will be sent this note for review. If there are any emergent issues noted above,pharmacist will contact provider directly by phone. Pharmacy will periodically review the resident's medication regimen for any PRN medications not administered in > 72 hours and discontinue them. The pharmacist will discuss gradual dose reductionsof psychopharmacologic medications with interdisciplinary team on a regular basis. Please contact pharmacy if the above does not answer specific medication questions/concerns. Background: A pharmacist has reviewed all medications and pertinent medical history today. Medications were reviewed for appropriate use and any irregularities found are listed with recommendations. Current Facility-Administered Medications: acetaminophen (TYLENOL) tablet 650 mg, 650 mg, Oral, Q4H PRN, Joanie Storey MD ALPRAZolam (XANAX) tablet 0.25 mg, 0.25 mg, Oral, TID PRN, Petra Dorado PA, 0.25 mg at 07/08/23 0858 aspirin (ASA) EC tablet 325 mg, 325 mg, Oral, Daily, Petra Dorado PA, 325 mg at 07/08/23 0851 bisacodyl (DULCOLAX) suppository 10 mg, 10 mg, Rectal, Daily PRN, Petra Dorado PA clopidogrel (PLAVIX) tablet 75 mg, 75 mg, Oral, Daily, Petra Dorado PA, 75 mg at 07/08/23 0851 fluticasone (FLONASE) 50 MCG/ACT spray 1 spray, 1 spray, Both Nostrils, BID PRN, Petra Dorado PA melatonin tablet 3 mg, 3 mg, Oral, At Bedtime, Ibeth Ellison MD, 3 mg at 07/07/23 192 metoprolol tartrate (LOPRESSOR) quarter-tab 6.25 mg, 6.25 mg, Oral, BID, Petra Dorado PA, 6.25 mg at 07/08/23 0851 [START ON 07/12/2023] rosuvastatin (CRESTOR) tablet 5 mg, 5 mg, Oral, Weekly, Petra Dorado PA senna-docusate (SENOKOT-S/PERICOLACE) 8.6-50 MG per tablet 1 tablet, 1 tablet, Oral, BID PRN, Petra Dorado PA telmisartan (MICARDIS) half-tab 10 mg, 10 mg, Oral, BID, Petra Dorado PA, 10 mg at 07/08/23 0851 Vitamin D3 (CHOLECALCIFEROL) tablet 50 mcg, 50 mcg, Oral, Daily, Petra Dorado PA, 50 mcg at 07/08/23 0851 No current outpatient prescriptions on file. 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 Thank you for your help. * Plan of Care - Nelli Frazier MD - 07/08/2023 2:05 PM CDT Individualized Overall Plan Of Care (IOPOC) Rehab diagnosis/Impairment Group Code: 01.2 right body, left brain involvement stroke; left centrumsemiovale and posterior putamen ischemic stroke Stroke (cerebrum) (h) Expected functional outcome: Anticipated the patient will be independent with her basic ADLs and IADLs. She will be able to ambulate with a cane. Clinical Impression Comments: Initial blood pressures appear to be high and we will continue to monitor her closely. Mobility: Pt presents with R hemiparesis (UE weakner than LE), fractionated movement deficit ( R LE), sensory detection and weighting deficit, in presence of impaired activity tolerance and impaired standing balance. Pt house has several flights of stairs, and is often home alone. Pt also has more accessible daughters house as an option at discharge. Pt with supportive family, who are planning toprovide intermittent assist. Goals for Iggy ambulatory based mobility, intermittent assist for stairs. ELOS to achieve these goals 10 days. ADL: Pt admitted s/p left periventricular/putamen ischemic stroke. Pt previously IND ADLs and high-level IADLs; currently requires increased assist for all ADLs and functional transfers. Performance primarily limited by R side hemiparesis impairing RUE > RLE and functional cognition deficits. Discharge disposition options include home with need to do stairs and Mod I toileting transfers vs to daughter's home with increased daytime A available. ELOS 10-14 days, HC vs OP OT pending progress. Communication/Cognition/Swallow: Formal speech evaluation completed this date. MEDICAL SCIENTIFIC LIAISON administered [place] Dysarthria Assessment Tool (N-REI). Pt's verbal expression and speech are characterized by fluent word-finding, mildly strained/breathy vocal quality, reduced prosody, mild-mod imprecise articul ation, and rapid rate of speech. Pt is judged to be ~90% intelligible in conversation with known context. No changes in swallowing, cognition, or word- finding from baseline per pt or family. Introduced compensatory speech strategies using SLOB acronym (slow down, loud voice, over-articulate, breath support) and pt implemented in conversation with mod cues overall. Discussed strategies to improve intelligibility and provided written handouts to pt/family. The pt will benefit from ongoing MEDICAL SCIENTIFIC LIAISON services targeting functional communication and intelligibility. Intensity of therapy: PT 60 minutes, 6x/week, for 7 to 10 days OT 60 minutes, 6 times/week, for 7 to 10 days MEDICAL SCIENTIFIC LIAISON 60 minutes, , for 7 to 10 days Orthotics AFO Education stroke and diabetes Neuropsychology Testing: No Other: Family training Medical Prognosis: Patient is a 73-year-old female with past medical history significant for hypertension and diabeteswith significant intolerance to medications who presents with acute stroke leading to right hemiparesis, word finding difficulties, slurred speech, leading to impaired mobility and ADLs. During her hospitalization here we will closely monitor her blood pressures and her sugars given that her initial hemoglobin A1c was 9.0. Given the history of intolerance to medications we will slowly titrate the medications for optimization of risk factors prior to discharge. Physician summary statement: See above Discharge destination: prior home Discharge rehabilitation needs: outpatient Estimated length of stay: 7 to 10 days Rehabilitation Physician Nelli Frazier MD * Plan of Care - Cielo Grey, PT - 07/08/2023 12:56 PM CDT [facility] PT: Discharge Plan: Home (to pt house or daughters, pending progress), OP PT (pending stair progress) Precautions: Falls, R hemiplegic shoulder, R inattention Current Status: Bed Mobility: Iggy Transfer: Verna w/ NBQC cane Gait: Verna w/ NBQC, therapy only. based for nsg to bathroom. Stairs: NT Balance: Seated balance static. Intermittent R lean w/ unsupported standing Outcome Measures: PASS: 07/07: Lyle: 07/07: 33/56 10MWT: 07/08: Assessment: Lyle and PASS scores confirm expectation that pt will be Iggy walking at discharge. Pt motivated and progressing well. Other Barriers to Discharge (DME, Family Training, etc): DME: quad cane vs LRAD Family training likely required on stairs with spouse/daughters/other family. Postural Assessment for Stroke Scale (PASS) Maintaining posture - 1) Sitting without support - 3 2) Standing with support (feet position free) - 3 3) Standing without support (feet position free) - 2 4) Standing on nonparetic leg - 1 5) Standing on paretic leg - 0 Changing posture - 6) Rolling supine -> affected side - 3 7) Rolling supine -> unaffected side - 2 8) Sup->sitting edge of bed - 3 9) Sitting edge of bed -> sup - 3 10) Sit->stand without support - 3 11) Stand->sit without support - 3 12) Standing, milk pickup truck driver pencil from floor without support - 3 Total Score - 29/36 The PASS assesses a patient's ability to change and maintain posture during different balance activities. It is not associated with falls risk, but is used to track progress with the patient's ability to control their posture and balance throughout the course of the patient's admission. A score of <22 points at admission to Acute Rehab is predictive that pt is not likely to be walking independently at 3 months. (Enrique et al. 2021. Postural Maintenance Is Associated with Walking Ability in People Received Acute Rehabilitation after Stroke) 07/08/23 1431 Signing Clinician's Name / Credentials Signing clinician's name / credentials CHRISTINE RosalesT Lyle Balance Scale (ROBBIN BURCIAGA S, KAY KUMAR, PIERRE, B: MEASURING BALANCE IN THE ELDERLY: VALIDATION OF AN INSTRUMENT. CAN. J. PUB. HEALTH, SUPPLEMENT 2:S7-11, 1991.) Sit To Stand 4 Standing Unsupported 4 Sitting Unsupported 4 Stand to Sit 4 Transfers 3 Standing with Eyes Closed 3 Standing Unsupported, Feet Together 1 Reach Forward With Outstretched Arm 2 Retrieve Object From Floor 3 Turning to Look Behind 3 Turn 360 Degrees 0 Placing Alternate Foot on Stool (4-6 inches) 0 Unsupported Tandem Stand (Demonstrate to Subject) 2 One Leg Stand 0 Total Score (A score of 45 or less has been correlated with an increased risk of falls) Total Score (out of 56) 33 Lyle Balance Scale (BBS) Cutoff Scores for CVA Population: The BBS is a measure of static and dynamic standing balance that has been validated in community dwelling elderly individuals and individuals who have Parkinson's Disease, MS, and those who are s/p CVA and TBI. The test is administered without an assistive device. Scores from the Lyle are used to de termine the probability of falling based on the patient's previous history of falls and their test performance. 0-20 High risk for falling- Corresponded with w/c bound status 21-40 Medium risk for falling- Able to walk with assistance 41-56 Low risk for falling- Able to walk independently According to [employer] [facility]roke [facility]. Available at http://www.strokecenter.org/. Accessibility verified 2012. Minimal Detectable Change = 6.5 according to Aamir & Seney 2008 Assessment (rationale for performing, application to patient? s function & care plan): Score indicates medium fall risk. Pt has most difficulty w/ tasks requiring narrow [place] and R wt shift. Recommending ongoing assist and NBQC w/ amb. * Plan of Care - Stacey Marinelli RN - 07/08/2023 7:42 AM CDT Goal Outcome Evaluation: Plan of Care Reviewed With: patient Overall Patient Progress: no changeOverall Patient Progress: no change Outcome Evaluation: Alert and oriented x4; call light appropriate. Denies of pain/SOB/Dizziness. Continent of bladder and bowel. Transfers with A1 pivot to WC. Safety checks done. Patient able to turn to sides. * Plan of Care - Ethan Carr RN - 07/07/2023 7:00 PM CDT Goal Outcome Evaluation: Plan of Care Reviewed With: patient Overall Patient Progress: no change Outcome Evaluation: Pt is knowldegable of medicaitons, no change to skin, continues to be safe using call light and waiting for assistance. FOCUS/GOAL Medication management ASSESSMENT, INTERVENTIONS AND CONTINUING PLAN FOR GOAL: Pt aox4, using call light to make needs known. A1 pivot with cane using W/C for restroom. Denies pain, cough, sob, n/v, n/t. Pt has HTN and reported a little anxiety, PRN xanax did not help with HTN,MD was in room and aware of HTN giving HS medications early. Cont of B&B, LBM 07/05. Reg/thin, taking pills whole with water. Working with therapies. Nursing will continue with POC. * Plan of Care - ePtra Perez PT - 07/07/2023 12:24 PM CDT [facility]: Discharge Plan: Home (to pt house or daughters, pending progress), OP PT (pending stair progress) Precautions: Falls, R hemiplegic shoulder, R inattention Current Status: Bed Mobility: verna Transfer: Verna w/ quad cane Gait: min-modA with NBQC variable with fatigue, therapy only. based for nsg to bathroom. Stairs: NT Balance: Seated balance intact static. Standing balance impaired. Outcome Measures: Assessment: Pt presents with R hemiparesis (UE weakner than LE), fractionated movement deficit ( R LE), sensory detection and weighting deficit, in presence of impaired activity tolerance and impaired standing balance. Pt house has several flights of stairs, and is often home alone. Pt also has more accessible daughters house as an option at discharge. Pt with supportive family, who are planning to provide intermittent assist. Goals for Iggy ambulatory based mobility, intermittent assist for stairs. ELOS to achieve these goals 10 days. PM session limited by BP 175/81, RN aware.Unable to assess stairs/ further OOR mobility d/t this. Other Barriers to Discharge (DME, Family Training, etc): DME: quad cane Family training likely required on stairs with spouse/daughters/other family. * Care Plan - Bharathi Davis RN - 07/07/2023 10:38 AM CDT Shift: 0700 - 1530 BP (!) 145/84 (BP Location: Left arm) Pulse 79 Temp 97.7 ??F (36.5 ??C) (Oral) Resp 16 Wt 66.5 kg (146 lb 9.7 oz) SpO2 94% Patient is, AOX4, Pt is anxious and frequently asking about regaining function in the right hand.Ptdaughter remains at bedside. Pt reported right arm pain and mild chest pain, Ict Educator offered pain meds, Pt decline. Rate pain at 3/10, the chest pain is not new it comes and goes SBP still elevated,recheck in 30 mins.Handoff. No acute change or events; VSS, Denies shortness of breath,chest pain, numbness/tingling present in right arm and right leg, No nausea/vomiting, no fever or chills. Pt denies pain. Pt is able to make needs know, call light is in reach, continue with POC. * Plan of Care - Sara Huertas RN - 07/07/2023 5:20 AM CDT [id number] Pt. Is A & O X 4. Denies pain, SOB or acute distress. Daughter pent the night in Pt's room. Pt's B/P was 167/82. Pt declined intervention while stating My B/P runs in the 200s for a long number of years. This is actually one of my good numbers. I will wait till I take my blood pressure medications in the morning. Education And Development Manager signs and symptoms of cardiac arrest. Pt. Is continent of bowel ad bladder e limination. Call button placed within reach, plan of care is on-going. * Plan of Care - Mayte Gutierrez RN - 07/06/2023 8:10 PM CDT Goal Outcome Evaluation: Pt is alert and oriented x 4 , denies pain. Prn xanax given. On Regular, thin liquids and takes pills whole with water. Assist of x 1 with a walker. Continent of bowel and bladder. LBM 07/05 per report. Call light within reach and safety alarms in place. documented in this encounter Plan of Treatment Scheduled Orders Name Type Priority Associated Diagnoses Order Schedule Oxygen: Nasal cannula Respiratory Care Routine As Needed until discontinued starting 07/06/2023 Basic metabolic panel Lab Routine Every Mon for 3 Occurrences starting 07/10/2023 until 07/24/2023, 2 completed CBC with platelets Lab Routine Every Mon for 12 Occurrences starting 07/10/2023 until 09/25/2023, 2 completed Magnesium Lab Routine Every Mon for 12 Occurrences starting 07/10/2023 until 09/25/2023, 2 completed documented as of this encounter Procedures The patient is currently admitted. The information in this section might not be complete until the patient is discharged. Procedure Name Priority Date/Time Associated Diagnosis Comments MAGNESIUM Routine 07/17/2023 7:44 AM CDT BASIC METABOLIC PANEL Routine 07/17/2023 7:44 AM CDT CBC WITH PLATELETS Routine 07/17/2023 7: 44 AM CDT MAGNESIUM Routine 07/10/2023 6:09 AM CDT BASIC METABOLIC PANEL Routine 07/10/2023 6:09 AM CDT CBC WITH PLATELETS Routine 07/10/2023 6: 09 AM CDT MAGNESIUM Routine 07/07/2023 5:56 AM CDT CBC WITH PLATELETS Routine 07/07/2023 5: 56 AM CDT BASIC METABOLIC PANEL Routine 07/06/2023 7:00 PM CDT documented in this encounter Results * Magnesium (07/17/2023 7:44 AM CDT) Pathologist [facility] Magnesium 1.9 1.7 - 2.3 mg/dL 07/17/2023 9:27 AM CDT [facility] Blood STRUCTURE OF LEFT HAND / Unknown Venipuncture / Unknown 07/17/2023 7:44 AM CDT 07/17/2023 8:34 AM CDT Petra ANTHONY LAB - BLOOD ORDERAB LES [facility] Acute Care Lab [address] [facility], [address] [place] [id number] * (ABNORMAL) CBC with platelets (07/17/2023 7:44 AM CDT) WBC Count 4.8 4.0 - 11.0 10e3/uL [...] LAB - BLOOD ORDERAB LES [facility] Acute Care Lab [address] [facility], [address] [place] [id number] * (ABNORMAL) Basic metabolic panel (07/17/2023 7:44 AM CDT) Sodium 142 135 - 145 mmol/L 07/17/2023 [...] LAB - BLOOD ORDERAB LES [facility] Acute Care Lab [address] [place] [address], [address] * Magnesium (07/10/2023 6:09 AM CDT) Magnesium 2.0 1.7 - 2.3 mg/dL 07/10/2023 7:27 AM CDT [facility] Blood STRUCTURE OF LEFT HAND / Unknown Venipuncture / Unknown 07/10/2023 6:09 AM CDT 07/10/2023 6:59 AM CDT Petra ANTHONY LAB - BLOOD ORDERAB LES Performing Organization Address City/[facility] Co de Phone Number [facility] Acute Care Lab [address] [place] [address], [address] * CBC with platelets (07/10/2023 6:09 AM CDT) WBC Count 6.0 4.0 - 11.0 10e3/uL 07/10/2023 7:06 AM CDT [facility] RBC Count 5.15 3.80 - 5.20 10e6/uL 07/10/2023 7:06 AM CDT [facility] Hemoglobin 15.0 11.7 - 15.7 g/dL 07/10/2023 7:06 AM CDT [facility] Hematocrit 44.9 35.0 - 47.0 % 07/10/2023 7:06 AM CDT [facility] MCV 87 78 - 100 fL 07/10/2023 7:06 AM CDT [facility] MCH 29.1 26.5 - 33.0 pg 07/10/2023 7:06 AM CDT [facility] MCHC 33.4 31.5 - 36.5 g/dL 07/10/2023 7:06 AM CDT [facility] RDW 13.2 10.0 - 15.0 % 07/10/2023 7:06 AM CDT [facility] Platelet Count 229 150 - 450 10e3/uL 07/10/2023 7:06 AM CDT [facility] Blood STRUCTURE OF LEFT HAND / Unknown Venipuncture / Unknown 07/10/2023 6:09 AM CDT 07/10/2023 6:59 AM CDT Petra ANTHONY [facility] - BLOOD ORDERAB LES [facility] [address] [facility], [address] [place], [place] [id number] * Basic metabolic panel (07/10/2023 6:09 AM CDT) Pathologist [facility] Sodium 140 135 - 145 mmol/L 07/10/2023 7:27 AM CDT [facility] Comment:Reference intervals for this test were updated on 12/06/2022 to more accurately reflect our healthy population. There may be differences in the flagging of prior results with similar values performed with this method. Interpretation of those prior results can be made in the context of the updated reference intervals. Potassium 4.0 3.4 - 5.3 mmol/L 07/10/2023 7:27 AM CDT [facility] Chloride 105 98 - 107 mmol/L 07/10/2023 7:27 AM CDT [facility] Carbon Dioxide (CO2) 24 22 - 29 mmol/L 07/10/2023 7:27 AM CDT [facility] Anion Gap 11 7 - 15 mmol/L 07/10/2023 7:27 AM CDT [facility] Urea Nitrogen 19.1 8.0 - 23.0 mg/dL 07/10/2023 7:27 AM CDT [facility] Creatinine 0.60 0.51 - 0.95 mg/dL 07/10/2023 7:27 AM CDT [facility] GFR Estimate >90 >60 mL/min/1. 73m2 07/10/2023 7:27 AM CDT [facility] Calcium 9.1 8.8 - 10.2 mg/dL 07/10/2023 7:27 AM CDT [facility] Glucose 94 70 - 99 mg/dL 07/10/2023 7:27 AM CDT [facility] Blood STRUCTURE OF LEFT HAND / Unknown Venipuncture / Unknown 07/10/2023 6:09 AM CDT 07/10/2023 6:59 AM CDT Petra ANTHONY LAB - BLOOD ORDERAB LES [facility] [address] [facility], [address] [place] [id number] * CBC with platelets (07/07/2023 5:56 AM CDT) WBC Count 6.5 4.0 - 11.0 10e3/uL 07/07/2023 6:31 AM CDT [facility] RBC Count 5.08 3.80 - 5.20 10e6/uL 07/07/2023 6:31 AM CDT [facility] Hemoglobin 15.0 11.7 - 15.7 g/dL 07/07/2023 6:31 AM CDT [facility] Hematocrit 44.7 35.0 - 47.0 % 07/07/2023 6:31 AM CDT [facility] MCV 88 78 - 100 fL 07/07/2023 6:31 AM CDT [facility] MCH 29.5 26.5 - 33.0 pg 07/07/2023 6:31 AM CDT [facility] MCHC 33.6 31.5 - 36.5 g/dL 07/07/2023 6:31 AM CDT [facility] RDW 13.5 10.0 - 15.0 % 07/07/2023 6:31 AM CDT [facility] Platelet Count 208 150 - 450 10e3/uL 07/07/2023 6:31 AM CDT [facility] Blood STRUCTURE OF LEFT HAND / Unknown Venipuncture / Unknown 07/07/2023 5:56 AM CDT 07/07/2023 6:25 AM CDT Petra ANTHONY LAB - BLOOD ORDERAB LES [facility] [address] [facility], [address] * Magnesium (07/07/2023 5:56 AM CDT) Magnesium 2.3 1.7 - 2.3 mg/dL 07/07/2023 6:45 AM CDT [facility] Blood STRUCTURE OF LEFT HAND / Unknown Venipuncture / Unknown 07/07/2023 5:56 AM CDT 07/07/2023 6:25 AM CDT Petra ANTHONY LAB - BLOOD ORDERAB LES [facility], [address] * (ABNORMAL) Basic metabolic panel (07/06/2023 7:00 PM CDT) Sodium 141 135 - 145 mmol/L 07/06/2023 7:57 PM CDT [facility] Comment:Reference intervals for this test were updated on 12/06/2022 to more accurately reflect our healthy population. There may be differences in the flagging of prior results with similar values performed with this method. Interpretation of those prior results can be made in the context of the updated reference intervals. Potassium 4.1 3.4 - 5.3 mmol/L 07/06/2023 7:57 PM CDT [facility] Chloride 106 98 - 107 mmol/L 07/06/2023 7:57 PM CDT [facility] Carbon Dioxide (CO2) 25 22 - 29 mmol/L 07/06/2023 7:57 PM CDT [facility] Anion Gap 10 7 - 15 mmol/L 07/06/2023 7:57 PM CDT [facility] Urea Nitrogen 18.6 8.0 - 23.0 mg/dL 07/06/2023 7:57 PM CDT [facility] Creatinine 0.56 0.51 - 0.95 mg/dL 07/06/2023 7:57 PM CDT [facility] GFR Estimate >90 >60 mL/min/1. 73m2 07/06/2023 7:57 PM CDT [facility] Calcium 9.0 8.8 - 10.2 mg/dL 07/06/2023 7:57 PM CDT [facility] Glucose 105(H) 70 - 99 mg/dL 07/06/2023 7:57 PM CDT [facility] Blood STRUCTURE OF LEFT UPPER LIMB / Unknown Venipuncture / Unknown 07/06/2023 7:00 PM CDT 07/06/2023 7:39 PM CDT Petra ANTHONY LAB - BLOOD ORDERAB LES [facility] [address] [facility] [place] [id number] documented in this encounter Visit Diagnoses Diagnosis Cerebrovascular accident (CVA) due to thrombosis of left middle cerebral artery (H)- Primary Anxiety Anxiety state, unspecified Benign essential hypertension Essential hypertension, benign Stroke (cerebrum) (H) Unspecified cerebral artery occlusion with cerebral infarction documented in this encounter Administered Medications Active Administered Medications - up to 3 most recent administrations Medication Order MAR Action Action Date Dose Rate Site acetaminophen (TYLENOL) tablet 650 mg 650 mg, Oral, EVERY 4 HOURS PRN, mild pain, fever, Starting on Amy 07/06/23 at 1758, Maximum acetaminophen dose from all sources = 75 mg/kg/day not to exceed 4 grams/day. $Given 07/17/2023 12:35 PM CDT 650 mg $Given 07/16/2023 11:04 AM CDT 650 mg $Given 07/14/2023 11:55 AM CDT 650 mg ALPRAZolam (XANAX) half-tab 0.125 mg 0.125 mg, Oral, DAILY, First dose (after last modification) on 07/15/23 at 0800, Avoid taking with grapefruit juice $Given 07/17/2023 8:15 AM CDT 0.125 mg $Given 07/16/2023 8:31 AM CDT 0.125 mg $Given 07/15/2023 7:59 AM CDT 0.125 mg ALPRAZolam (XANAX) half-tab 0.125 mg 0.125 mg, Oral, 2 TIMES DAILY PRN, anxiety, Starting on Mon07/14/23 at 1346, Avoid taking with grapefruit juice $Given 07/18/2023 1:43 AM CDT 0.125 mg $Given 07/17/2023 4:13 PM CDT 0.125 mg $Given 07/16/2023 1:20 PM CDT 0.125 mg aspirin (ASA) EC tablet 325 mg 325 mg, Oral, DAILY, First dose on Mon07/07/23 at 0800, DO NOT CRUSH. DO NOT CRUSH. $Given 07/17/2023 8:21 AM CDT 325 mg $Given 07/16/2023 8:31 AM CDT 325 mg $Given 07/15/2023 7:59 AM CDT 325 mg bisacodyl (DULCOLAX) suppository 10 mg 10 mg, Rectal, DAILY PRN, constipation, Starting on Mon07/06/23 at 1736, Hold for loose stools. clopidogrel (PLAVIX) tablet 75 mg 75 mg, Oral, DAILY, First dose on Mon07/07/23 at 0800 $Given 07/17/2023 8:24 AM CDT 75 mg $Given 07/16/2023 8:30 AM CDT 75 mg $Given 07/15/2023 7:59 AM CDT 75 mg diclofenac (VOLTAREN) 1 % topical gel 2 g 2 g, Topical, 4 TIMES DAILY PRN, inflammatory pain, moderate pain, Starting on Mon07/13/23 at 1600, Apply to mid back. Use supplied dosing card to mearsure dose. $Given 07/17/2023 12:35 PM CDT 2 g $Given 07/17/2023 8:15 AM CDT 2 g $Given 07/15/2023 7:59 AM CDT 2 g diphenhydrAMINE (BENADRYL) capsule 25 mg 25 mg, Oral, 2 TIMES DAILY PRN, allergies, anxiety, Starting on Mon07/17/23 at 1200 $Given 07/18/2023 1:42 AM CDT 25 m g fluticasone (FLONASE) 50 MCG/ACT spray 1 spray 1 spray, Both Nostrils, 2 TIMES DAILY PRN, rhinitis, Starting on Mon07/06/23 at 1736 metoprolol tartrate (LOPRESSOR) quarter-tab 6.25 mg 6.25 mg, Oral, 2 TIMES DAILY, First dose on Mon07/06/23 at 2100, Hold for sbp <110 or pulse <60 $Given 07/17/2023 8:37 PM CDT 6.25 mg $Given 07/17/2023 8:15 AM CDT 6.25 mg $Given 07/16/2023 8:05 PM CDT 6.25 mg rosuvastatin (CRESTOR) tablet 5 mg 5 mg, Oral, WEEKLY, First dose on Mon07/12/23 at 2100 senna-docusate (SENOKOT-S/PERICOLACE) 8.6-50 MG per tablet 1 tablet 1 tablet, Oral, 2 TIMES DAILY PRN, constipation, Starting on Mon07/06/23 at 1736, Hold for loose stools. telmisartan (MICARDIS) tablet 20 mg 20 mg, Oral, EVERY EVENING, First dose (after last modification) on Mon07/13/23 at 2100, Hold for sbp <110 $Given 07/17/2023 8:37 PM CDT 20 mg $Given 07/16/2023 8:05 PM CDT 20 mg $Given 07/15/2023 7:41 PM CDT 20 mg telmisartan (MICARDIS) tablet 20 mg 20 mg, Oral, DAILY, First dose (after last modification) on Mon07/18/23 at 0800, Hold for sbp <110 Vitamin D3 (CHOLECALCIFEROL) tablet 50 mcg 50 mcg, Oral, DAILY, First dose on Mon07/07/23 at 0800, Note: 25 mcg = 1000 units $Given 07/17/2023 8:15 AM CD T 50 mcg $Given 07/16/2023 8:30 AM CDT 50 mcg $Given 07/15/2023 7:58 AM CDT 50 mcg Inactive Administered Medications - up to 3 most recent administrations Medication Order MAR Action Action Date Dose Rate Site ALPRAZolam (XANAX) half-tab 0.125 mg 0.125 mg, Oral, 2 TIMES DAILY, First dose (after last modification) on Mon07/10/23 at 2200, Avoid taking with grapefruit juice $Given 07/11/2023 8:15 AM CDT 0.125 mg ALPRAZolam (XANAX) half-tab 0.125 mg 0.125 mg, Oral, 3 TIMES DAILY, First dose (after last modification) on Mon07/11/23 at 1400, Avoid taking with grapefruit juice $Given 07/14/2023 8:44 AM CDT 0.125 mg $Given 07/13/2023 10:13 PM CDT 0.125 mg $Given 07/13/2023 8:32 AM CDT 0.125 mg ALPRAZolam (XANAX) tablet 0.25 mg 0.25 mg, Oral, 3 TIMES DAILY PRN, anxiety, Starting on Mon07/06/23 at 1736, Avoid taking with grapefruit juice $Given 07/10/2023 10:24 AM CDT 0.25 mg $Given 07/09/2023 2:19 PM CDT 0.25 mg $Given 07/08/2023 8:32 PM CDT 0.25 mg cetirizine (zyrTEC) solution 5 mg 5 mg, Oral, DAILY, First dose on Mon07/11/23 at 1030 $Given 07/12/2023 8:13 AM CDT 5 mg cetirizine (zyrTEC) solution 5 mg 5 mg, Oral, AT BEDTIME, First dose (after last modification) on Mon07/13/23 at 2100 $Given 07/13/2023 8:58 PM CDT 5 m g diclofenac (VOLTAREN) 1 % topical gel 2 g 2 g, Topical, 4 TIMES DAILY, First dose on Mon07/10/23 at 1600, For 3 days, Apply to mid back at tender area. Use supplied dosing card to mearsure dose. $Given 07/13/2023 12:05 PM CDT 2 g $Given 07/13/2023 6:40 AM CDT 2 g Ri ght Upper Back $Given 07/12/2023 7:41 PM CDT 2 g diphenhydrAMINE (BENADRYL) capsule 25-50 mg 25-50 mg, Oral, AT BEDTIME, First dose (after last modification) on Mon07/14/23 at 2000 $Given 07/16/2023 8:05 PM CDT 25 mg $Given 07/15/2023 7:33 PM CDT 25 mg $Given 07/14/2023 8:51 PM CDT 25 mg melatonin tablet 3 mg 3 mg, Oral, AT BEDTIME, First dose on Mon07/07/23 at 2100 $Given 07/07/2023 7:29 PM CDT 3 mg telmisartan (MICARDIS) half-tab 10 mg 10 mg, Oral, 2 TIMES DAILY, First dose on Mon07/06/23 at 2100 $Given 07/10/2023 8:30 AM CDT 10 mg $Given 07/09/2023 8:27 PM CDT 10 mg $Given 07/09/2023 8:25 AM CDT 10 mg telmisartan (MICARDIS) half-tab 10 mg 10 mg, Oral, DAILY, First dose (after last modification) on Mon07/11/23 at 0800, Hold for sbp <110 $Given 07/11/2023 8:16 AM CDT 10 mg telmisartan (MICARDIS) half-tab 10 mg 10 mg, Oral, 2 TIMES DAILY, First dose (after last modification) on Mon07/11/23 at 2100, Hold for sbp <110 $Given 07/13/2023 6:40 AM CDT 10 mg $Given 07/12/2023 7:46 PM CDT 10 mg $Given 07/12/2023 8:13 AM CDT 10 mg telmisartan (MICARDIS) half-tab 10 mg 10 mg, Oral, DAILY, First dose (after last reorder) on Mon07/14/23 at 0800, Hold for sbp <110 $Given 07/17/2023 8:15 AM CDT 10 mg $Given 07/16/2023 8:31 AM CDT 10 mg $Given 07/15/2023 7:59 AM CDT 10 mg telmisartan (MICARDIS) tablet 20 mg 20 mg, Oral, EVERY EVENING, First dose on Mon07/10/23 at 2000, Medication Name: Telmisartan, Form: Capsule $Given 07/10/2023 7:43 PM CDT 20 mg documented in this encounter Active and Recently Administered Medications Times are shown in CDT. Scheduled Medication Order 07/16/2023 07/17/2023 07/18/2023 ALPRAZolam (XANAX) half-tab 0.125 mg(Linked Group 1) 0.125 mg, Oral, DAILY, First dose (after last modification) on Mon07/15/23 at 0800, Avoid taking with grapefruit juice 0831 ($Given - Provider: Stlela Vega RN) 0815 ($Given - Provider: Charlotte Zimmerman RN) 0800 (Due) aspirin (ASA) EC tablet 325 mg 325 mg, Oral, DAILY, First dose on Mon07/07/23 at 0800, DO NOT CRUSH. DO NOT CRUSH. 0831 ($Given - Provider: Stella Vega RN) 0821 ($Given - Provider: Charlotte Zimmerman RN) 0800 (Due) clopidogrel (PLAVIX) tablet 75 mg 75 mg, Oral, DAILY, First dose on Mon07/07/23 at 0800 0830 ($Given - Provider: Stella Vega RN) 0824 ($Given - Provider: Charlotte Zimmerman RN) 0800 (Due) diphenhydrAMINE (BENADRYL) capsule 25-50 mg (CANCELED) 25-50 mg, Oral, AT BEDTIME, First dose (after last modification) on Mon07/14/23 at 1999 2004 ($Given - Provider: Jhony Alvarez RN) metoprolol tartrate (LOPRESSOR) quarter-tab 6.25 mg 6.25 mg, Oral, 2 TIMES DAILY, First dose on Mon07/06/23 at 2100, Hold for sbp <110 or pulse <60 0831 ($Given - Provider: Stella Vega RN)2004 ($Given - Provider: Jhony Alvarez RN) 15 ($Given - Provider: Charlotte Zimmerman RN)2036 ($Given - Provider: Charlotte Zimmerman RN) 08 (Due - Provider: Hai Pichardo RPH)1999 (Due - Provider: Hai Pichardo RPH) rosuvastatin (CRESTOR) tablet 5 mg 5 mg, Oral, WEEKLY, First dose on Mon07/12/23 at 2100 telmisartan (MICARDIS) half-tab 10 mg (CANCELED) 10 mg, Oral, DAILY, First dose (after last reorder) on Mon07/14/23 at 0800, Hold for sbp <110 0831 ($Given - Provider: Stella Vega RN) 0815 ($Given - Provider: Charlotte Zimmerman RN) telmisartan (MICARDIS) tablet 20 mg 20 mg, Oral, EVERY EVENING, First dose (after last modification) on Mon07/13/23 at 2100, Hold for sbp <110 2004 ($Given - Provider: Jhony Alvarez RN) 2036 ($Given - Provider: Charlotte Zimmerman RN) 1999 (Due - Provider: Hai Pichardo [facility]) telmisartan (MICARDIS) tablet 20 mg 20 mg, Oral, DAILY, First dose (after last modification) on Mon07/18/23 at 0800, Hold for sbp <110 0800 (Due) Vitamin D3 (CHOLECALCIFEROL) tablet 50 mcg 50 mcg, Oral, DAILY, First dose on Mon07/07/23 at 0800, Note: 25 mcg = 1000 units 0830 ($Given - Provider: Stella Vega RN) 0815 ($Given - Provider: Charlotte Zimmerman RN) 0800 (Due) PRN Medication Order 07/16/2023 07/17/2023 07/18/2023 acetaminophen (TYLENOL) tablet 650 mg 650 mg, Oral, EVERY 4 HOURS PRN, mild pain, fever, Starting on Mon07/06/23 at 1758, Maximum acetaminophen dose from all sources = 75 mg/kg/day not to exceed 4 grams/day. 1104 ($Given - Provider: Stella Vega RN) 1235 ($Given - Provider: Charlotte Zimmerman RN) ALPRAZolam (XANAX) half-tab 0.125 mg(Linked Group 1) 0.125 mg, Oral, 2 TIMES DAILY PRN, anxiety, Starting on Mon07/14/23 at 1346, Avoid taking with grapefruit juice 1320 ($Given - Provider: Stella Vega RN) 1613 ($Given - Provider: Charlotte Zimmerman RN) 0143 ($Given - Provider: Vicki Simmons RN) bisacodyl (DULCOLAX) suppository 10 mg 10 mg, Rectal, DAILY PRN, constipation, Starting on Mon07/06/23 at 1736, Hold for loose stools. diclofenac (VOLTAREN) 1 % topical gel 2 g(Linked Group 2) 2 g, Topical, 4 TIMES DAILY PRN, inflammatory pain, moderate pain, Starting on Mon07/13/23 at 1600, Apply to mid back. Use supplied dosing card to mearsure dose. 0815 ($Given - Provider: Charlotte Zimmerman RN)1235 ($Given - Provider: Charlotte Zimmerman RN) diphenhydrAMINE (BENADRYL) capsule 25 mg 25 mg, Oral, 2 TIMES DAILY PRN, allergies, anxiety, Starting on Mon07/17/23 at 1200 0142 ($Given - Provider: Vicki Simmons RN) fluticasone (FLONASE) 50 MCG/ACT spray 1 spray 1 spray, Both Nostrils, 2 TIMES DAILY PRN, rhinitis, Starting on Mon07/06/23 at 1736 senna-docusate (SENOKOT-S/PERICOLACE) 8.6-50 MG per tablet 1 tablet 1 tablet, Oral, 2 TIMES DAILY PRN, constipation, Starting on Mon07/06/23 at 1736, Hold for loose stools. Linked Groups Order Group 1: ALPRAZolam (XANAX) half-tab 0.125 mgJump to med 0.125 mg, Oral, DAILY, First dose (after last modification) on Mon07/15/23 at 0800, Avoid taking with grapefruit juice And ALPRAZolam (XANAX) half-tab 0.125 mgJump to med 0.125 mg, Oral, 2 TIMES DAILY PRN, anxiety, Starting on Mon07/14/23 at 1346, Avoid taking with grapefruit juice Group 2: diclofenac (VOLTAREN) 1 % topical gel 2 g (COMPLETED) 2 g, Topical, 4 TIMES DAILY, First dose on Mon07/10/23 at 1600, For 3 days, Apply to mid back at tender area. Use supplied dosing card to mearsure dose. Followed by diclofenac (VOLTAREN) 1 % topical gel 2 gJump to med 2 g, Topical, 4 TIMES DAILY PRN, inflammatory pain, moderate pain, Starting on Mon07/13/23 at 1600, Apply to mid back. Use supplied dosing card to mearsure dose. documented in this encounter Care Teams Training Director Relationship Specialty Start Date End Date Kyra Perera [address] [place] [address] PCP - General Physician [employer] Board[employer]anger 03/31/22 documented as of this encounter
--- OUTSIDE RECORDS SUMMARY | 2023-07-18 02:05 | XMS_ITS | Clinical Summary ---
Author Name Unknown Organization [facility]ly [facility] Address [address] [place] [address] Care Team Providers Care Chief Accounting Officer Name Role Phone Bettye Davis MD Primary [...] for each transition of care or referral. [facility] Allerg[facility] Active Allergy Reactions Criticality Noted Date [...] 2000 Colon Cancer Screening Plan Due 04/21/2012 04/20/2012 Dexa 06/21/2015 Pneumococcal 65+ Yrs (1 - PCV) 06/21/2015 DTaP/Tdap/Td (2 - Tdap) 05/29/2017 05/30/2007 COVID-19 Vaccine (2 - 2022-2 4 season) 2022 05/23/2020 Mammogram 12/08/2022 12/08/2021, 01/05/2012 Influenza (Season Ended) 2023 HepA Aged Out No longer eligi ble [...] Procedure Name Priority Date/Time Associated Diagnosis Comments MM MAMMOGRAM DIAG BILAT W 3D ALEENA Routine 12/08/2021 2:57 PM CDT from Last 3 Months or Most Recently Relevant to Health Maintenance Care Teams Chief Accounting Officer Relationship Specialty Start Date End Date Bettye Davis MD [address] [place] [address] PCP - General 06/13/10
--- OUTSIDE RECORDS SUMMARY | 2023-07-18 02:05 | XMS_ITS | Clinical Summary ---
Author Name Unknown Organization [facility] Address [place], [place] [address] Care Team Providers Care Etl Bi Developer Name Role Phone Kyra Perera Primary Care Provider Genaro Leonard MD Unavailable Janay Nunez MD Unavailable Carolyn Pisano Unavailable Keo Escobar MD Unavailable [...] times daily. 30 Tablet 3 06/23/2023 Active telmisartan (MICARDIS) 20 mg tabletIndications:Hyp ertension, unspecified type Take 1/2 tablet in the morning and 1 tablet in the evening 45 Tablet 1 07/10/2023 Active Active Problems Problem Noted Date Diagnosed [...] Encounters Date Type Department Care Team Description 07/13/2023 Telephone [facility] [address] [facility] [address] [place] [address] Amandeep Benz MD Appointment Request 07/10/2023 Telephone [facility] [address] [place] [address] Kyra Perera PA Medication Management (Hydroxizine) 07/07/2023 Orders Only [facility] [address] [place] [address] Nazanin Kennedy 1 scan: (1-Ord) Final Ziio Report 07/04/2023 Telephone [facility] [address] [place] [address] Kyra Perera PA Medication Management (CHOLESTEROL MEDICATION/ MED THAT WAS PRESCRIBED) 07/04/2023 Travel 07/01/2023 Orders Only [facility] Scanner 1 scan: (1-Ord) [facility], CT HEAD/BRAIN WO CON, 07/01/2023 07/01/2023 Office Visit [address] [address] Linn Wagner MD 07/01/2023 Telephone [facility] [address] [place] [address] Kyra Perera PA Appointment Request 06/30/2023 Orders Only [facility] Scanner 1 scan: (1-Ord) [facility] VERONICA HEAD W/O, 06/30/2023 06/30/2023 Orders Only [facility] Scanner 1 scan: (1-Ord) [facility], CT ANGIO NECK, 06/30/2023 06/30/2023 Orders Only [facility] Scanner 1 scan: (1-Ord) [facility], CT HEAD/BRAIN W/O CONTRAST, 06/30/2023 06/30/2023 Office Visit [address] [address] Linn Wagner MD 06/28/2023 Telephone [facility] [address] [place] [phone] Janay Nunez MD Has not rec'd needed letter via [employer] (Unable to see / pull up Letter on [email or web address]) 06/26/2023 9:00 AM CDT Procedure Only [facility] [address] [facility] [address] Marizol Walton L Ac Acupuncture 06/26/2023 Travel 06/24/2023 Telephone [facility] [address] [place] [address] Janay Nunez MD Letter (Reimbursement for flight) 06/23/2023 11:30 AM CDT Office Visit [facility] [address] [place] [address] Janay Nunez MD Follow Up (3 month; PVC; Intermittent CP) 06/23/2023 9:29 AM CDT - 06/23/2023 11:59 PM CDT Hospital Encounter [address] [address] Tito García MD Iverson, Ryan, PT 06/23/2023 Orders Only [address] [address] Janay Nunez MD <No scans attached> 06/23/2023 Travel 06/19/2023 9:00 AM CDT Procedure Only [facility] [address] [place] [address] Marizol Walton L Ac Acupuncture 06/19/2023 Travel 06/12/2023 9:00 AM CDT Procedure Only [facility] [address] [facility] [address] Marizol Walton L Ac Acupuncture 06/12/2023 Travel 06/05/2023 1:00 PM CDT - 06/05/2023 11:59 PM CDT Hospital Encounter [address] [address] Tito García MD Iverson, Ryan, PT 06/05/2023 7:30 AM CDT Procedure Only [facility] [address] [place] [address] Marizol Walton L Ac Acupuncture 06/05/2023 Telephone [facility] [address] [place] [address] Kyra Perera PA Results 06/05/2023 Travel 05/29/2023 12:55 PM CDT - 05/29/2023 11:59 PM CDT Hospital Encounter [address] [address] Tito García MD Iverson, Ryan, PT 05/29/2023 10:30 AM CDT Procedure Only [facility] [address] [place] [address] Marizol Walton L Ac Acupuncture 05/29/2023 Travel 05/25/2023 1:30 PM CDT Office Visit [facility] [address] [facility] [address] [place] [address] Diogo Acosta MD CV General Cardiology Est (CV Gen Card f/u. Pt reports recent near syncope episode and another episode of low O2 Sat. Review Zio.) 05/25/2023 Travel 05/22/2023 12:58 PM CDT - 05/22/2023 11:59 PM CDT Hospital Encounter [address] [address] Tito García MD Iverson, Ryan, PT 05/22/2023 8:30 AM CDT Procedure Only [facility] [address] [place] [address] Marizol Walton L Ac Acupuncture (Initial treatment, order is a... 05/22/2023 Travel 05/08/2023 2:27 PM COMBINE OPERATOR - 05/08/2023 11:59 PM COMBINE OPERATOR Hospital Encounter [address] [address] Tito García MD Iverson, Ryan, PT 05/08/2023 Travel 05/04/2023 Orders Only [facility] [address] [facility] [address] Juliana Pollard 1 scan: (1-Ord) Zio Patch final result [facility]- 05/03/2023 11:00 AM COMBINE OPERATOR Ancillary Procedure [facility] [address] [facility] [phone] 05/03/2023 Travel 05/01/2023 12:52 PM COMBINE OPERATOR - 05/01/2023 11:59 PM COMBINE OPERATOR Hospital Encounter [address] [address] Tito García MD Iverson, Ryan, PT 05/01/2023 Travel 04/24/2023 2:25 PM COMBINE OPERATOR - 04/24/2023 11:59 PM COMBINE OPERATOR Hospital Encounter [address] [address] Tito García MD Iverson, Ryan, PT 04/24/2023 Travel from Last 3 Months Immunizations Name Administration Dates Next Due COVID-19 vaccine ([employer]-J&J) REBA HOPKINS 1 Td, Preservative Free (age >= 7 Years) 8 Tdap 05/30/2007 Family History Medical History Relation Name Comments Heart Disease Brother 1 Osteoarthritis Brother 1 back and leg Other Brother 1 pulmonary hyper tension Cancer-prostate Brother 2 Other Brother [address] edwards, htn Good Health Brother 4 Heart Disease Brother 5 Heart Disease Brother 6 Hyperlipidemia Brother 7 Other Father d54 [place], liver e tom Cancer-breast Maternal Aunt Other [...] Care Team (Late st Contact Info) Description 07/19/2023 8:50 AM CDT Office Visit [facility] [address] [place] [address] Kyra Perera PA [address] [place] [address] 07/26/2023 10:00 AM CDT Office Visit [facility] [address] [place] [address] Delvin Thomas MD [address] [place] [address] Health Maintenance Due Date Last Done Comments Pneumococcal series for age 65+ (1 of 2 - PCV) 1956 Zoster (shingles) series for age 50+ (1 of 2) 2000 DEXA/DXA scan for age 65+ 06/21/2015 COVID-19 vaccine series (24 season) 2022 03/16/2021, 05/23/2020 Mammogram for age [...] Procedure Name Priority Date/Time Associated Diagnosis Comments SCAN-CT INTERPRETATION 12:00 AM CDT SCAN-MRI INTERPRETATION 06/30/2023 12:00 AM CDT SCAN-ANGIOGRAM 06/30/2023 12:00 AM CDT SCAN-CT INTERPRETATION 12:00 AM CDT ACUPUNCTURE PLAN OF CARE Routine 06/26/2023 9:01 AM CDT Chronic neck pain EXTENDED HOLTER Routine 06/23/2023 Palpitations ACUPUNCTURE PLAN OF CARE Routine 06/19/2023 9:03 [...] COMPLETE WO CONTRAST Routine 05/03/2023 11:40 AM COMBINE OPERATOR Chest pain in adult LIPID PANEL W REFLEX MEASURED LDL Routine 04/03/2023 8:20 AM COMBINE OPERATOR Lipid disorder COLONOSCOPY SCREENING Routine 10/10/2022 12:00 AM CDT Screen for colon cancer XR MAMMO ALEENA BILAT DIAG Routine 12/08/2021 2:57 PM CDT Breast pain in female ANTI HCV Routine 02/09/2016 10:00 AM COMBINE OPERATOR Need for hepatitis C screening test from Last 3 Months or Most Recently Relevant to Health Maintenance Results * SCAN-CT INTERPRETATION (07/01/2023 12:00 AM CDT) Only the most recent of2 resultswithin the time period is included. Anatomical Region Laterality Modality Other Scanner OTHER * SCAN-ANGIOGRAM (06/30/2023 12:00 AM CDT) Anatomical Region Laterality Modality Other Scanner OTHER * SCAN-MRI INTERPRETATION (06/30/2023 12:00 AM CDT) Anatomical Region Laterality Modality Other Scanner OTHER * Zio XT (06/23/2023) Janay Nunez MD CARDIAC SERVICES ORD * ZIO PATCH XT - weekly to monthly symptoms. (05/04/2023) Janay Nunez MD CARDIAC SERVICES ORD * ECHO TTE COMPLETE WO CONTRAST (05/03/2023 11:40 AM COMBINE OPERATOR) AORTIC VALVE MEAN PG 4 mmHg EJECTION FRACTION 62 % PEAK TR VELOCITY 2.2 m/s LVEDD 3.2 cm MITRAL VALVE MR ERO 5 mm2 Anatomical Region Laterality Modality Ultrasound 05/03/2023 11:1 2 AM COMBINE OPERATOR Narrative 05/03/2023 1:19 PM COMBINE OPERATOR ECHOCARDIOGRAM MIYA CHOW ? Accession#: ?? [id number] : ?1950 72 years Study Date: ?? 05/03/2023 11:12:45 AM Gender: F ?BP: ? 200/104 mmHg Height: 157.00 cm ?BSA: ?1.66 m? ? ? Weight: 65.00 kg ? Tech: ? MCK ? Referring MD: JANAY NUNEZ Site: ? [facility] Reading Location: Mobile-OP Patient Location: Outpatient. Procedure: [...] . This study was interpreted by an [facility] accredited facility. ??Final ?? Procedure Note Boo Starkey MD - 05/03/2023 ECHOCARDIOGRAM MIYA CHOW : 1950 72 years Study Date: 05/03/2023 11:12:45 AM Gender: F BP: 200/104 mmHg Height: 157.00 cm BSA: 1.66 m? ? ? Weight: 65.00 kg Tech: RONNELL Referring MD: JANAY NUNEZ Site: [facility] Reading Location: Mobile-OP Patient Location: Outpatient. Procedure: [...] . This study was interpreted by an [facility] accredited facility. Final Janay Nunez MD ECHO ORD * (ABNORMAL) LIPID PANEL W REFLEX MEASURED LDL (04/03/2023 8:20 AM COMBINE OPERATOR) CHOLESTEROL,TOTAL 268(H) 100 - 199 mg/dL 04/03/2023 6:54 PM COMBINE OPERATOR [facility] Comment: Cholesterol, Total Reference Ranges Desirable <200 mg/dL Borderline 200-239 mg/dL High >=240 mg/dL TRIGLYCERIDES 232(H) <150 mg/dL 04/03/2023 6:54 PM COMBINE OPERATOR [facility] HDL CHOLESTEROL 58 >40 mg/dL 6:54 PM COMBINE OPERATOR [facility] NON-HDL CHOLESTEROL 210(H) <145 mg/dl 04/03/2023 6:54 PM [facility] CHOL/HDL RATIO 4.62(H) <4.50 04/03/2023 6:54 PM COMBINE OPERATOR [facility] TRA [facility] LDL CHOLESTEROL 164(H) <=130 mg/dL 04/03/2023 6:54 PM COMBINE OPERATOR [facility] VLDL CHOLESTEROL 46(H) <=30 mg/dL 04/03/2023 6:54 PM COMBINE OPERATOR [facility] TRA [facility] PROVIDER ORDERED STATUS FASTING 04/03/2023 6:54 PM COMBINE OPERATOR [facility] Blood BLOOD SPECIMEN / Unknown Venipuncture / Unknown 04/03/2023 8:20 AM COMBINE OPERATOR 04/03/2023 8:26 AM COMBINE OPERATOR Carolyn ANTHONY CHEMISTRY [facility] [address] [place] [address], * COLONOSCOPY SCREENING (10/10/2022 12:00 AM CDT) [...] Dictated by: Iván Luu MD @12/08/2021 3:39:51 PM/cici PATIENTS: You will also receive a letter with your examination results in an easy to read format. ??If you have questions about your results, please contact your referring provider. Narrative 12/09/2021 2:10 PM CDT As a result of the Cures Act, medical imaging exams and procedure [...] No fibrocystic change or solid mass. Gabriella ANTHONY MAMMO * ANTI HCV [05787.2] (02/09/2016 10:00 AM COMBINE OPERATOR) HEPATITIS C ANTIBODY Non-Reacti ve Non-Reacti ve 02/09/2016 5:42 PM COMBINE OPERATOR [facility] Blood BLOOD SPECIMEN / Unknown Venipuncture / Unknown 02/09/2016 10:00 AM COMBINE OPERATOR 02/09/2016 10:01 AM COMBINE OPERATOR Narrative [facility] - 02/09/2016 5:42 PM COMBINE OPERATOR Antibodies to HCV not detected; does not exclude the possibility of exposure to HCV. Kyra ANTHONY SEND OUTS [facility] [address] [place] [address], from Last 3 Months or Most Recently [...] 4:20 AM 03/22/2010 1:40 PM Care Teams Etl Bi Developer Relationship Specialty Start Date End Date Kyra Perera PA [address] [place] [address] PCP - General 06/16/08 Genaro Leonard MD [address] [place] [address] Cardiology - Electrophysiology 05/30/22 Janay Nunez MD [facility] [place] [id number] Cardiology - Interventional 09/21/22 Carolyn Pisano PA [address] [place] [address] [place] [address] Physician Assessment Technician 09/21/22 Keo Escobar MD [address] [place] [id number] Sports Medicine - Family Medicine 09/21/22
--- OUTSIDE RECORDS SUMMARY | 2023-07-18 02:05 | XMS_ITS | Clinical Summary ---
Author Name Unknown Organization [facility] Address [address] [address] Phone Care Team Providers Care Third Mate Name Role Phone Elsewhere, Pcp Primary Care [...] of Treatment Not on file Care Teams Third Mate Relationship Specialty Start Date End Date Elsewhere, Pcp PCP - General 12/20/14
== END 2023-07-06 15:36 | disposition home or self-care (01) ==
LOC: AMB 07-18 02:01
PROVIDERS: PCP Physician Assistant Medical; Visit Provider Student in an Organized Health Care Education/Training Program
DX: I63.9 Cerebral infarction, unspecified (principal)
CPT/HCPCS: A0425; A0428

== ENCOUNTER 2023-09-19 03:26 | Emergency (ER) | payer MEDICARE, BC, SELFPAY ==
[2023-09-19 03:36] VITALS: BP 195/105; PULSE 86; RESP 18; TEMP 36.6; O2SAT 97; BMI 25.2
--- NOTE | 2023-09-19 04:08 | CRLHL7_ITS ---
For Patients: As a result of the Century Cures Act, medical imaging exams and procedure reports are released immediately into your electronic medical record. You may view this report before your referring provider. If you have questions, please contact your health care provider. INDICATION: Thoracic back pain COMPARISON: 02/07/2022 TECHNIQUE: PA and lateral 2 view chest. FINDINGS: Lung volumes are good. No focal or diffuse opacities. No pulmonary edema. No pleural effusion. No pneumothorax. No pneumomediastinum. Normal cardiomediastinal silhouette. Bones: Normal for age. IMPRESSION: Normal chest radiographs. Dictated by Rosalva Taveras MD @ 09/19/2023 5:33:43 AM (Electronically Signed)
--- NOTE | 2023-09-19 04:14 | ED.GENADULT ---
HPI - General Adult General Chief complaint: Hypertension Stated complaint: high blood pressure Time Seen by Provider: 09/19/23 03:39 Source: patient Mode of arrival: ambulatory Limitations: no limitations History of Present Illness HPI narrative: 73-year-old female with multiple allergies and comorbid conditions presents to the emergency department for evaluation of multiple complaints at 3:30 a.m. in the morning. She reports that she has been having chest pain for the past 18 hours. Initially told me that it was not affected by anything but then states that it has been worsening with rest and with anxiety. She has had an ongoing feeling of had buzzing and pins and needles which she initially tells me has been going on for 11 weeks since she had a stroke but then tells me that it was worse since 8:00 p.m. last night which is about 7 hours prior to presentation. She reports that she has an ongoing history of hypertension which is difficult to manage as she has multiple antibiotic and medication allergies. She questioned if the telmisartan was making her swallowing worse or contributing to for 4 weeks of epigastric/right upper quadrant abdominal pain that she has been having. She was started on the telmisartan 11 weeks ago after her stroke. She elected not to take her telmisartan last night, questioning if it was contributing to her side effects. Her blood pressure has been running high and obviously skipping her medications did not improve the situation. She reports that her blood pressure has been persistently high but her medications are being titrated slowly. I gather though some of this is per my interpretation that that has to be done so that she tolerates medications better. She reports that she tried taking her diazepam and also some alprazolam to help with her anxiety and it did not lower her blood pressure, help her abdominal pain or make her palpitations go away. She just our primary care team 4 days ago and her metoprolol was increased from a tiny dose of 6.25 mg twice daily up to still a very small 12.5 twice daily. Her telmisartan was increased from 15 twice daily to 20 twice daily. Her chest pain is accompanied by feeling of palpitations which has been an ongoing problem for her. I can see that many medications give her side effects of palpitations in her list of allergies. She denies a history of heart failure or prior cardiac surgeries. She is a nonsmoker. Denies alcohol use. She also reports this ongoing right upper quadrant/epigastric abdominal pain for the past 4 weeks. She reports that she was hospitalized overnight at [facility] after initial visit 1 week prior was also unrevealing. It sounds as though ultimately she had an endoscopy and 2 CT scans which failed to reveal any abnormalities. She reports that none of the medications that she was given in the hospital were affective. Through loss of questioning I can tell that this was oxycodone, Flexeril and a single dose of fentanyl for the endoscopy. It sounds as though she was discharged on Carafate. It sounds as though she only took a dose or so and discontinued the medication per her own choice. Review of the records reveals that this abdominal pain has been going on for a couple of months at least. She did follow-up specifically regarding this with her primary care team. [place] is that this is of musculoskeletal etiology and she has been referred for physical therapy which she has not yet scheduled. She is also referred for acupuncture. She does have multiple risk factors for coronary artery disease including poorly-controlled hypertension, gender, age and hyperlipidemia. She does not tolerate statins but is on an injectable agent though she has had many years of untreated hyperlipidemia due to her medications sensitivities. She is not having any new neurological changes, stroke-like symptoms or other acute findings this morning. Past medical history is fairly extensive. I do review her recent outpatient note dated 09/07 as well as for hospitalization overnight for observation from [facility], discharge date was 09/03. Medications do seem accurate as listed currently. These are compared to her primary care notes. Socially, no smoking or tobacco use. ROS is notable for the chest, abdominal, musculoskeletal, GI and had symptoms as described above. ROS was quite difficult as many systems were positive and chronicity is difficult to interpret. Related Data Home Medications ?Medication ?Instructions ?Recorded ?Confirmed alprazolam 0.25 mg tablet 0.125 mg PO TID PRN 10/03/21 07/01/23 cholecalciferol (vitamin D3) 50 50 mcg PO DAILY 10/03/21 06/30/23 mcg (2,000 unit) tablet fluticasone propionate 50 1 - 2 spray intranasal DAILY PRN 10/03/21 07/01/23 mcg/actuation nasal spray,suspension nitroglycerin 0.4 mg sublingual 0.4 mg sublingual Q5M PRN 10/03/21 07/01/23 tablet aspirin 81 mg capsule 81 mg PO DAILY 02/15/22 06/30/23 metoprolol tartrate 25 mg tablet 6.25 mg PO DAILY 06/30/23 07/01/23 telmisartan 20 mg tablet 10 mg PO HS 06/30/23 06/30/23 diazepam 5 mg tablet 2.5 - 5 mg PO Q6H PRN anxiety 07/01/23 07/01/23 famotidine 10 mg tablet 10 mg PO DAILY 07/01/23 07/01/23 furosemide 20 mg tablet 20 mg PO Q OTHER DAY PRN 07/01/23 07/01/23 meclizine 25 mg tablet 25 mg PO TID PRN 07/01/23 07/01/23 Allergies Allergy/AdvReac Type Severity Reaction Status Date / Time Penicillins Allergy Severe Throat Verified 04/28/23 09:50 Closing amlodipine Allergy Intermediate Palpitation Verified 04/28/23 09:50 s atorvastatin Allergy Intermediate Myalgia Verified 04/28/23 09:50 chlorthalidone Allergy Intermediate Dyspnea Verified 04/28/23 09:50 clonidine Allergy Intermediate Dyspnea Verified 04/28/23 09:50 diltiazem Allergy Intermediate Anxiety Verified 04/28/23 09:50 doxazosin Allergy Intermediate Bleeding Verified 04/28/23 09:50 hydralazine Allergy Intermediate Tachycardia Verified 04/28/23 09:50 hydrochlorothiazide Allergy Intermediate Dyspnea Verified 04/28/23 09:50 labetalol Allergy Intermediate Dyspnea Verified 04/28/23 09:50 lisinopril Allergy Intermediate Chest Pain Verified 04/28/23 09:50 lobster Allergy Intermediate Verified 04/28/23 13:37 lorazepam [From Ativan] Allergy Intermediate Depression Verified 04/28/23 09:50 losartan Allergy Intermediate Dyspnea Verified 04/28/23 09:50 methyldopa Allergy Intermediate Rash Verified 04/28/23 09:50 metoprolol Allergy Intermediate Dyspnea Verified 04/28/23 09:50 metronidazole [From Flagyl] Allergy Intermediate Hives Verified 04/28/23 09:50 milk Allergy Intermediate Verified 04/28/23 13:37 rosuvastatin Allergy Intermediate Myalgia Verified 04/28/23 09:50 verapamil Allergy Intermediate Dyspnea Verified 04/28/23 09:50 morphine Allergy Mild Hives Verified 04/28/23 09:50 Sulfa (Sulfonamide Allergy Mild Hives Verified 04/28/23 09:50 Antibiotics) acetaminophen Allergy Unknown Verified 04/28/23 13:37 lactose Allergy Unknown Verified 04/28/23 13:37 latex Allergy Unknown Verified 04/28/23 13:37 hydrocodone AdvReac Intermediate Nausea/Vomi Verified 04/28/23 09:50 ting [facility] Medical History Hypertension ?I10 - Essential (primary) hypertension (ICD-10) Paroxysmal SVT (supraventricular tachycardia) (04/07/21) ?I47.10 - Supraventricular tachycardia, unspecified (ICD-10) 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) ?D89.40 - Mast cell activation, unspecified (ICD-10) LVH (left ventricular hypertrophy) (01/26/21) ?I51.7 - Cardiomegaly (ICD-10) TBI (traumatic brain injury) ?S06.9XAA - Unspecified intracranial injury with loss of consciousness status unknown, initial encounter (ICD-10) Frequent PVCs ?I49.3 - Ventricular premature depolarization (ICD-10) Anxiety ?F41.9 - Anxiety disorder, unspecified (ICD-10) Statin intolerance ?Z78.9 - Other specified health status (ICD-10) Hypertension with intolerance to multiple antihypertensive drugs ?I10 - Essential (primary) hypertension (ICD-10) Viral infection ?B34.9 - Viral infection, unspecified (ICD-10) Upper back pain ?M54.9 - Dorsalgia, unspecified (ICD-10) Tinnitus ?H93.19 - Tinnitus, unspecified ear (ICD-10) Obstructive sleep apnea treated with continuous positive airway pressure (CPAP) ?G47.33 - Obstructive sleep apnea (adult) (pediatric) (ICD-10) Headache ?R51.9 - Headache, unspecified (ICD-10) Excessive daytime sleepiness ?G47.19 - Other hypersomnia (ICD-10) Encounter for follow-up ?Z09 - Encounter for follow-up examination after completed treatment for conditions other than malignant neoplasm (ICD-10) Disorder of paranasal sinus ?J34.9 - Unspecified disorder of nose and nasal sinuses (ICD-10) Difficulty sleeping ?G47.9 - Sleep disorder, unspecified (ICD-10) Chest pain ?R07.9 - Chest pain, unspecified (ICD-10) Abdominal pain ?R10.9 - Unspecified abdominal pain (ICD-10) Surgical History Hx of removal of ovary H/O section ?Z98.891 - History of uterine scar from previous surgery (ICD-10) H/O resection of rib ?Z98.890 - Other specified postprocedural states (ICD-10) History of tonsillectomy ?Z90.89 - Acquired absence of other organs (ICD-10) Hx of cholecystectomy ?Z90.49 - Acquired absence of other specified parts of digestive tract (ICD-10) History of appendectomy ?Z90.49 - Acquired absence of other specified parts of digestive tract (ICD-10) Family History Brother Prostate cancer Heart disease Sister Lung cancer Social History Narrative: She lives in [place]. Accompanied today by her son David. She does not smoke. She does not drink alcohol. What is your current living situation?: I presently have a place to live Problems where you live: no known problems Problems where you live details: none In the past 12 months, utilities in danger of being shut off: no In past 12 months, lack of transportation kept you from medical appts, meetings, work, or getting things needed for daily living: no In the past 12 mos, have been you worried that your food would run out before you had money to buy more?: never true In the past 12 mos, the food you bought just didn't last and you didn't have money to buy more?: never true Highest level of school completed/degree received: some college, no degree Smoking Status: Never smoker Do you use any of these nicotine containing products: None Second hand tobacco smoke exposure: No How often do you have a drink containing alcohol: never AUDIT-C Alcohol total score: 0 Non-prescribed substance use: denies use Caffeine: No How often does anyone, including family, friends and others, physically hurt you: never How often does anyone, including family, friends and others, insult or talk down to you: never How often does anyone, including family, friends and others, threaten you with harm: never How often does anyone, including family, friends and others, scream or curse at you: never service: No Exam Const: Vital Signs, click to edit/add: Vital Signs - 24 hr 09/19/23 03:36 09/19/23 05:04 Temperature 97.8 F Pulse Rate [Pulse Oximeter] 86 67 Respiratory Rate 18 16 Blood Pressure [Ri ght Upper Arm] 195/105 H 194/105 H Pulse Oximetry 97 97 Oxygen Delivery Me thod Room Air Room Air Documenting provider has reviewed patient's vital signs: yes Common normals: alert General appearance: well kempt Orientation/consciousness: Yes awake Other: Anxious with a difficult to follow history. No signs of impairment, intoxication or psychosis. Cooperative HENMT: Common normals: normocephalic and oropharynx normal Head and scalp: normocephalic Face and sinus: normal facial exam Mouth: oral and palatal mucosa normal Eye: Common normals: EOMs intact bilaterally and conjunctivae normal General eye: normal appearance of both eyes Conjunctiva: conjunctiva(e) normal Neck & C-Spine: Common normals: no lymphadenopathy General: normal visual inspection Chest: Common normals: inspection of chest normal Resp: Common normals: normal respiratory effort, no use of accessory muscles and clear to auscultation bilaterally Effort & inspection: able to speak in complete sentences Auscultation: clear to auscultation bilaterally Cardio: Common normals: regular rate, regular rhythm, S1 normal heart sound, S2 normal heart sound and no murmurs Rate: regular rate Rhythm: regular rhythm Heart sounds: S1 normal and S2 normal Other: Occasional PVCs reviewed on rhythm strip. GI: Common normals: Normal to inspection, nondistended, normoactive bowel sounds present, soft to palpation, no hepatosplenomegaly and no masses Palpation: soft and no hepatosplenomegaly Other: Mildly tender to palpation in right upper quadrant area. Note, prior reported uncomplicated cholecystectomy. No rebound tenderness or guarding. Normoactive bowel sounds. : Common normals: no CVA tenderness Bladder/kidney exam: no CVA tenderness Back & Pelvis: Common normals: no CVA tenderness Other: Mild but not fully reproducible tenderness to palpation over T11/T12 area and right paraspinal muscles as well. Extremity: Common normals: normal to inspection and normal capillary refill Other: Mild weakness in right hand but 5/5 strength in proximal flexors and extensors of both sides. Neuro: Sensorium/orientation: awake and alert Speech: speech normal Psych: Appearance: well kempt Attitude: engaged Activity/motor behavior: appropriate eye contact Thought content: normal thought content Attention/concentration: attention grossly intact Insight: insight good Judgement: judgment good Skin: Common normals: no rashes or lesions noted General skin exam: no rashes or lesions noted Course Course ED Course: 73-year-old female with an 18 hour history of chest pain and palpitations which is a recurrent issue, at least 1 month of right upper quadrant/epigastric area pain with thorough previous outpatient workup including endoscopy in 2 CT scans, elevated blood pressure with poor adherence to outpatient regimen and fear of multiple side effects that does limit our ability to manage this condition for her. Patient counseled 1st on the abdominal pain. I do also suspect that this is musculoskeletal in nature but will be obtaining some basic labs as well as a chest x-ray. She does have some tenderness along her spine. I am not overly suspicious of a compression fracture but she does have prior history of falls and certainly this could be related to some osteoarthritic changes. The certainly could have been seen on her recent CT scans as well. The pattern of her right upper quadrant pain would not fit with a radiculopathy to the T10/T12 areas. She questions why an endoscopic ultrasound would not be done. With normal labs, 2 [address] and a normal endoscopy, I would not recommend that study be performed. I will repeat the basic labs today. Counseled that she may need subspecialty follow-up but I would strongly recommend that she began with the physical therapy that has been it by her primary care team. For chest pain, I am recommending an EKG, troponin basic labs as well as the x-ray. I suspect that she is symptomatic to her PVCs which are exacerbated by anxiety but she may be having some mild side effects to her antihypertensives as well. Counseled patient that we may have to tolerate the side effects in order to reduce her risk of stroke. Side effects do not seem life-threatening at this time. She is quite frustrated by her abdominal pain. I offered 1 tablet of hydrocodone to see if this would improve her symptoms. She does list this as an allergy as she does most medications. It does not sound as though it was anaphylactic. Will not be giving any IV medications and if she is in need of long-term management, this would have to come from her primary care provider. I would strongly discourage narcotics until she has completed an appropriate course of physical therapy. For her hypertension, will given additional dose of 12.5 mg p.o. x1 of metoprolol. We do not have Junito are gordon here and it does appear as though she reports sensitivity to all of the other arbs. Prior to any intervention, her blood pressure had already improved to 190 5/95 and I am not appreciating any acute neurological changes suggestive of hypertensive urgency. Will await findings. Reevaluation(s) Time of Reevaluation #1: 05:25 Reevaluation #1: Counseled patient on findings, normal labs. She reports minimal relief from the hydrocodone. Tolerated this slightly increased dose of metoprolol well. Lowest systolic blood pressure is 89, no further increases. No new neurological changes. I am hesitant to give her higher doses of antihypertensives to quickly. I would strongly recommend that she take her telmisartan as I do not have it here in our facility. She is reassured that her EKG, labs and exam are very reassuring. The chest x-ray does show clear lungs, no obvious large compression fracture. She does ask if potentially overusing her left side to pull herself up more could be contributing to her back pain and this would certainly make good sense. I am not comfortable sending her home with additional pain medications as her primary care team nor the discharging hospital thought that this was in her best interest. She does report an allergy to hydrocodone and she reported that the previously given oxycodone was not effective for her. She asks about trying the Flexeril again and states that she has some at home and I did encourage her to try this at nighttime. She is counseled regarding the PVCs which were the source of the palpitations that brought her in and is reassured by this. It looks as though these have been documented multiple times. She is counseled on use of [id number] Tylenol and ibuprofen. A referral has already been placed for acupuncture, physical therapy and occupational therapy by her primary care team. She has a follow-up scheduled for Monday which is in 4 days. I recommended that she increase her metoprolol to 25 b.i.d. and that she restart her telmisartan to treat her hypertension. She start the physical therapy and acupuncture and consider chiropractic manipulation for her back and rib pain. She is reassured regarding the cardiac issues and has a follow-up scheduled on Monday with cardiology any way. No additional changes are recommended at this time. Vital Signs Vital signs: Initial Vital Signs Temperature 97.8 F 09/19/23 03:36 Temperature Source Temporal Artery Scan 09/19/23 03:36 Pulse Rate 86 09/19/23 03:36 Pulse Rhythm Regular 09/19/23 03:36 Respiratory Rate 18 09/19/23 03:36 Blood Pressure 195/105 H 09/19/23 03:36 Blood Pressure Mean 135 H 09/19/23 03:36 Blood Pressure Position Supine 09/19/23 03:36 Pulse Oximetry 97 09/19/23 03:36 Oxygen Delivery Method Room Air 09/19/23 03:36 Vital Signs Temperature 97.8 F 09/19/23 03:36 Pulse Rate 86 09/19/23 03:36 Respiratory Rate 18 09/19/23 03:36 Blood Pressure 195/105 H 09/19/23 03:36 Pulse Oximetry 97 09/19/23 03:36 Oxygen Delivery Method Room Air 09/19/23 03:36 Temperature 97.8 F 09/19/23 03:36 Pulse Rate 67 09/19/23 05:04 Respiratory Rate 16 09/19/23 05:04 Blood Pressure 194/105 H 09/19/23 05:04 Pulse Oximetry 97 09/19/23 05:04 Oxygen Delivery Method Room Air 09/19/23 05:04 Medications Administered Medications: Discontinued Medications Generic Name Dose Route Start Last Admin Trade Name Freq PRN Reason Stop Dose Admin Hydrocodone Bitart/Acetaminophen 1 tab 09/19/23 04:08 09/19/23 04:20 Hydrocodone/Acetamin 7.5-325 Tablet PO 09/19/23 04:09 1 tab ONCE ONE Administration Metoprolol Tartrate 12.5 mg 09/19/23 04:08 09/19/23 04:17 Metoprolol Tartrate 25 Mg Tablet PO 09/19/23 04:09 12.5 mg ONCE ONE Administration Medical Decision Making Lab Data Lab results reviewed: Yes I reviewed the patient's lab results Lab results narrative: All reassuring, as expected. Labs: Lab Results 09/19/23 09/19/23 Range/Units 04:08 04:15 WBC 4.98 (4.50-11.00) K/uL RBC 5.08 (4.00-5.20) m/uL Hgb 15.0 (12.0-16.0) gm/dL Hct 44.0 (33.0-51.0) % MCV 87 (80-100) fL MCH 30 (26-34) pg MCHC 34 (32-36) gm/dL RDW Coeff of Jaylen 12.9 (11.5-15.5) % Plt Count 222 (140-440) K/uL Neut % (Auto) 57.5 (42.0-72.0) % Lymph % (Auto) 29.5 (20-44) % Kane % (Auto) 9.6 (0.0-11.0) % Eos % (Auto) 2.6 (0.0-7.0) % Baso % (Auto) 0.6 (0.0-3.0) % Neut # (Auto) 2.86 (1.7-7.0) K/uL Lymph # (Auto) 1.47 (0.90-2.90) K/uL Kane # (Auto) 0.50 (0.00-0.90) K/UL Eos # (Auto) 0.13 (0.00-0.50) K/uL Baso # (Auto) 0.03 (0.00-0.30) K/uL Abs Immat Gran (auto) 0.01 (0.00-0.30) K/uL Imm/Tot Granulo (auto) 0.2 % Sodium 139 (135-149) mmol/L Potassium 3.7 (3.6-5.1) mmol/L Chloride 103 (96-114) mmol/L Carbon Dioxide 26 (20-32) mmol/L Anion Gap 10 (7-15) mEq/L BUN 21 (7-30) mg/dL Creatinine 0.7 (0.5-1.5) mg/dL Estimated Creat Clear 39.63 Estimated GFR 91 ml/min Glucose 117 H (60-115) mg/dL Calcium 9.5 (8.4-10.6) mg/dL Total Bilirubin 0.4 (0.1-1.5) mg/dL AST 25 (12-35) U/L ALT 23 (4-35) U/L Alkaline Phosphatase 97 (40-150) U/L C-Reactive Protein < 0.5 L (0.5-1.0) mg/dL Total Protein 7.0 (6.0-8.3) g/dL Albumin 4.4 (3.3-5.0) g/dL Lipase 132 (23-300) U/L POC Troponin I 0.01 (0.01-0.04) ng/ml Imaging Data Chest x-ray: Attestation: I have reviewed the pertinent imaging results. My impression: Mild degenerative changes the spine but no evidence of major compression fractures, pulmonary infiltrates, cardiomegaly or effusions. Overall, normal x-ray Radiologist's impression: IMPRESSION: Normal chest radiographs. ECG Data Attestation: I personally reviewed and interpreted this ECG as follows: Prior ECG tracings: available for review Interpretation: Normal sinus rhythm, rate of 85 with few PVCs present. Probably does meet some criteria for LVH but normal intervals and axis. No significant ST or T-wave abnormalities. Normal EKG. Multiple prior comparisons, unchanged. Discharge Plan Discharge Clinical Impression: Frequent PVCs, Back pain, thoracic, Hypertension with intolerance to multiple antihypertensive drugs Patient Disposition: Home w/ Parent or Adult Condition: Stable Instructions: Thoracic Pain (ED) Additional Instructions: As we discussed, there are no signs of heart attack or dangerous heart rhythm changes today. You do have a few PVCs which are very benign extra beats. These do not cause dangerous heart rhythm problems. Most people that get these are very symptomatic to them though they are not dangerous. They are also very, very common. Your blood pressure is elevated but we are not detecting any new signs of stroke or heart damage today. Please take your telmisartan as prescribed. Keep taking your metoprolol and since you have been tolerating the 12.5 mg dose so well, I would recommend that you try increasing up to 25 mg twice daily. Please bear in mind that this is still a very small dose. As we discussed, carvedilol may be a reasonable choice for you if your blood pressure does not get under good control on the metoprolol instead. But, you certainly have not been on a high enough dose of metoprolol yet to tell. I know that it must be frustrating for you to have so many side effects to medications. As we discussed, you will continue to have side effects but the benefit of reducing your risk of stroke is so important that we are going to have to tolerate these side effects as long as there are no signs of anaphylaxis. 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 I would recommend physical therapy to specifically target this. It looks like your primary care team has also referred you for acupuncture. I would also recommend that you consider a chiropractor. You have been prescribed Flexeril and I would strongly recommend that you give this another try, especially at night. Make sure your max thing out your doses of Tylenol which would be 1000 mg every 6 hours and or ibuprofen 600 mg every 6 hours for pain. Keep your follow-up appointment for Monday with your primary care team. If you did elect to increase her metoprolol to 25 twice daily in the meantime, your primary care doctor would have that information to help them in guiding your treatment on Monday. This would be enough time to tell. Activity Level: No Restrictions Discharge Diet: Regular Prescriptions: No Action aspirin 81 mg capsule 81 mg PO DAILY alprazolam 0.25 mg tablet 0.125 mg PO TID PRN nitroglycerin 0.4 mg tablet, sublingual 0.4 mg sublingual Q5M PRN Patient Comments: Every 5 Minutes X 3 as needed fluticasone propionate 50 mcg/actuation spray,suspension 1 - 2 spray INTRANASAL DAILY PRN cholecalciferol (vitamin D3) 50 mcg (2,000 unit) tablet 50 mcg PO DAILY telmisartan 20 mg tablet 10 mg PO HS metoprolol tartrate 25 mg tablet 6.25 mg PO DAILY furosemide 20 mg tablet 20 mg PO Q OTHER DAY PRN famotidine 10 mg tablet 10 mg PO DAILY diazepam 5 mg tablet 2.5 - 5 mg PO Q6H PRN (Reason: anxiety) meclizine 25 mg tablet 25 mg PO TID PRN Follow Up/Referrals: Kyra Perera PA-C [Primary Care Provider] - Stand Alone Forms: [facility] Info Instructions
[2023-09-19] MEDS: METOPROLOL TARTRATE 25 MG TABLET 12.5 MG PO (04:17)
[2023-09-19] MEDS: HYDROCODONE/ACETAMIN 7.5-325 TABLET 1 TAB PO (04:20)
[2023-09-19 04:24] LABS: Basophils Absolute Auto 0.03 K/uL (0.00-0.30); Basophils Percent Auto 0.6 % (0.0-3.0); Eosinophils Absolute Auto 0.13 K/uL (0.00-0.50); Eosinophils Percent Auto 2.6 % (0.0-7.0); Immature Granulocytes Abs Auto 0.01 K/uL (0.00-0.30); Immature Granulocytes Pct Auto 0.2 %; Lymphocytes Absolute Auto 1.47 K/uL (0.90-2.90); Lymphocytes Percent Auto 29.5 % (20-44); Mean Corpuscular HGB Conc 34 gm/dL (32-36); Mean Corpuscular Hemoglobin 30 pg (26-34); Mean Corpuscular Volume 87 fL (80-100); Monocytes Percent Auto 9.6 % (0.0-11.0); Neutrophils Absolute Auto 2.86 K/uL (1.7-7.0); Neutrophils Percent Auto 57.5 % (42.0-72.0); Platelet Count* 222 K/uL (140-440); RDW Coefficient of Variation % 12.9 % (11.5-15.5); Red Blood Count 5.08 m/uL (4.00-5.20); White Blood Count* 4.98 K/uL (4.50-11.00)
--- NOTE | 2023-09-19 04:24 | PC.NURSE ---
to radiology via wheelchair. ate a few saltine crackers with her pain medication as she says it makes her nauseous/vomit in the past.
[2023-09-19 04:26] LABS: Slide Review Reflex No
[2023-09-19 04:37] LABS: Albumin* 4.4 g/dL (3.3-5.0); Chloride* 103 mmol/L (96-114); Sodium* 139 mmol/L (135-149)
[2023-09-19 04:38] LABS: Potassium* 3.7 mmol/L (3.6-5.1)
[2023-09-19 04:39] LABS: Creatinine* 0.7 mg/dL (0.5-1.5); Est. Creatinine Clearance* 39.63; Estimated Glomerular Filt Rate 91 ml/min
[2023-09-19 04:40] LABS: Alanine Aminotransferase* 23 U/L (4-35); Alkaline Phosphatase* 97 U/L (40-150); Anion Gap 10 mEq/L (7-15); Aspartate Amino Transferase* 25 U/L (12-35); Bilirubin Total* 0.4 mg/dL (0.1-1.5); Carbon Dioxide* 26 mmol/L (20-32)
[2023-09-19 04:41] LABS: Blood Urea Nitrogen* 21 mg/dL (7-30); Calcium* 9.5 mg/dL (8.4-10.6); Glucose* 117 mg/dL (60-115)
[2023-09-19 04:43] LABS: C Reactive Protein* < 0.5 mg/dL (0.5-1.0)
[2023-09-19 04:46] LABS: Troponin, Point-of-Care* 0.01 ng/ml (0.01-0.04)
--- OUTSIDE RECORDS SUMMARY | 2023-09-19 04:50 | XMS_ITS | Continuity of Care Document ---
Author Organization Z [facility] Address [address] [place] [address] [address] [place] [address] Phone Care Team Providers Care Factory Lay Out Engineer Name Role Phone Bernabe MAURICE, Clayton Unavailable Unavailable Advance Directives Directive Yes / No Effective Date File Name No Information Encounters Encounter Description Practice Location Reason(s) For Visit Diagnoses Date Provider Providers Copied on Encounter Z [facility], [address] [place], [place] [address], [place], [address], [place] tel:[phone] [facility] No Information Bernabe Arnold. [facility], [address] [place] [address] [address], [place], [place], [id number] , [place]. tel:[phone] Family History Family Member Type Diagnosis Age [...]
--- OUTSIDE RECORDS SUMMARY | 2023-09-19 04:51 | XMS_ITS | Encounter Summary ---
Author Organization [facility] Address [address] [place] [address] Care Team Providers Care Gis Analyst Developer Name Role Phone Kyra Perera Arabella Primary Care Provider [phone] Angel Hollins MD Unavailable Petra Dorado Unavailable [phone] Angel Hollins MD Unavailable Reason for Visit * Reason Onset Date Comments Patient Request 09/12/2023 Call back Encounter Details Date Type Department Care Team (Late st Contact Info) Description 09/12/2023 Telephone [facility] [address] [phone] Mily Cesar MD [address] [place] [phone] Patient Request (Call back ) Social History Tobacco Use Types Packs/Day Years Used Date Smoking Tobacco: Never Smokeless Tobacco: Never Alcohol Use Standard Drinks/Week Comments Not Currently 0 (1 standard drink = 0.6 oz pur e alcohol) PHQ-2 Answer Date Recorded PHQ-2 Score 0 07/25/2023 Adolescent Education Answer Date Record ed Getting School Help Needed Not on file 12/25 Sex and Gender Information Value Date Recorded Sex Assigned at Not on file Gender Identity Not on file Sexual Orientation Not on file documented as of this encounter Miscellaneous Notes * Telephone Encounter - Tk Alvarezmack - 09/12/2023 2:26 PM CDT Returned call and spoke to pt, per pt, she is currently doing Phyical therapy and feels that she can wait to rescehdule this at antoher time if need be. she is also following up with her PCP, as it[place] to [place]. pt canceled appt for 09/18/23. * Telephone Encounter - Gabriella Ash - 09/12/2023 9:42 AM CDT [facility] Phone Message May a detailed message be left on voicemail: yes Reason for Call: Other: Pt is calling and would like a call back to discuss what will Pt be doing at the follow up appt.Please call Pt back to discuss. Action Taken: Message routed to: [facility] PMR Travel Screening: Not Applicable Date of Service: documented in this encounter Plan of Treatment Upcoming Encounters Date Type Department Care Team (Late st Contact Info) Description 09/19/2023 2:15 PM CDT Therapy Visit [address] [phone] Ibeth Ellison MD [address] [place] [address] [id number] Marquita Trivedi, PT 09/19/2023 3:00 PM CDT Therapy Visit [address] [phone] Ibeth Ellison MD [address] [place] [address] Gabriella Bailey, OTR [facility] [address] 09/21/2023 2:15 PM CDT Therapy Visit [address] [phone] Ibeth Ellison MD [address] [place] [address] [id number] Marquita Trivedi, PT 09/21/2023 3:45 PM CDT Therapy Visit [address] [phone] Ibeth Ellison MD [address] [place] [address] [phone] Dylan Mccann, OT 09/26/2023 9:45 AM CDT Therapy Visit [address] [phone] Ibeth Ellison MD [address] [place] [address] [id number] Maura Javier, PT [address] 868015 09/26/2023 11:00 AM CDT Therapy Visit [address] [phone] Ibeth Ellison MD [address] [place] [address] [phone] Gabriella Bailey, OTR [address] [address] 09/28/2023 10:30 AM CDT Therapy Visit [address] [phone] Ibeth Ellison MD [address] [place] [address] [phone] Maura Javier, PT [address] 490[address] 09/28/2023 11:30 AM CDT Therapy Visit [address] [phone] Ibeth Ellison MD [address] [place] [address] [phone] Dylan Mccann, OT 10/03/2023 9:30 AM CDT Therapy Visit [address] [phone] Ibeth Ellison MD [address] [place] [address] [phone] Gabriella Bailey, OTR [address] [address] 10/03/2023 10:30 AM CDT Therapy Visit [address] [phone] Ibeth Ellison MD [address] [place] [address] [phone] Marquita Trivedi, PT 10/05/2023 9:45 AM CDT Therapy Visit [address] [phone] Ibeth Ellison MD [address] [place] [address] [phone] Maura Javier, PT [address] [place], [place] [address] 10/05/2023 10:45 AM CDT Therapy Visit [address] [phone] Ibeth Ellison MD [address] [place] [address] [phone] Dylan Mccann, OT 10/10/2023 9:30 AM CDT Therapy Visit [address] [phone] Ibeth Ellison MD [address] [place] [address] [phone] Gabriella Bailey, OTR [address] [address] 10/10/2023 10:30 AM CDT Therapy Visit [address] [phone] Ibeth Ellison MD [address] [place] [address] [phone] Marquita Trivedi, PT 10/12/2023 9:45 AM CDT Therapy Visit [address] [phone] Ibeth Ellison MD [address] [place] [address] Maura Javier, PT [address] [place], [place] [address] 10/12/2023 10:45 AM CDT Therapy Visit [address] [phone] Ibeth Ellison MD [address] [place] [address] [phone] Dylan Mccann, OT 10/17/2023 9:30 AM CDT Therapy Visit [address] [phone] Ibeth Ellison MD [address] [place] [address] [phone] Gabriella Bailey, OTR [address] [address] 10/17/2023 10:30 AM CDT Therapy Visit [address] [phone] Ibeth Ellison MD [address] [place] [address] [phone] Marquita Trivedi, JESSICA 10/19/2023 10:15 AM CDT Therapy Visit [address] [phone] Ibeth Ellison MD [address] [place] [address] [phone] Annamaria Dennison [address] [address] 10/19/2023 11:15 AM CDT Therapy Visit [address] [phone] Ibeth Ellison MD [address] [place] [address] [phone] Marquita Trivedi, PT 10/24/2023 12:15 PM CDT Therapy Visit [address] [phone] Ibeth Ellison MD [address] [place] [address] [phone] Maura Javier, PT [address] 027155 10/26/2023 11:30 AM CDT Therapy Visit [address] [phone] Ibeth Ellison MD [address] [place] [address] [phone] Dylan Mccann, OT 10/26/2023 12:15 PM CDT Therapy Visit [address] [phone] Ibeth Ellison MD [address] [place] [address] [phone] Maura Javier, PT [address] 488635 10/31/2023 10:15 AM CDT Therapy Visit [address] [phone] Ibeth Ellison MD [address] [place] [address] [phone] Gabriella Bailey, OTR [address] [address] 10/31/2023 11:15 AM CDT Therapy Visit [address] [phone] Ibeth Ellison MD [address] [place] [address] Marquita Trivedi, PT 11/02/2023 10:00 AM CDT Therapy Visit [address] [phone] Ibeth Ellison MD [address] [place] [address] [phone] Dylan Mccann, OT 11/02/2023 11:15 AM CDT Therapy Visit [address] [phone] Ibeth Ellison MD [address] [place] [address] [phone] Marquita Trivedi, PT 11/07/2023 10:30 AM CDT Therapy Visit [address] [phone] Ibeth Ellison MD [address] [place] [address] [phone] Marquiat Trivedi, PT 11/09/2023 10:30 AM CDT Therapy Visit [address] [phone] Ibeth Ellison MD [address] [place] [address] [phone] Marquita Trivedi, PT 11/14/2023 12:15 PM CDT Therapy Visit [facility] [address] [place] [phone] Ibeth Ellison MD [address] [place], [place] [phone] Maura Javier Ap, PT [facility] [address] [facility] [address] [place], [place] 2890[address] 11/16/2023 10:30 AM CDT Therapy Visit [facility] [address] [place] [phone] Ibeth Ellison MD [address] [place] [address] [phone] Marquita Trivedi, PT documented as of this encounter Visit Diagnoses Not on filedocumented in this encounter Care Teams Gis Analyst Developer Relationship Specialty Start Date End Date Kyra Perera [address] [place] [id number] PCP - General Physician Block Placer 03/31/22 Angel Hollins MD [address] [address] Neurology 07/20/23 Petra Dorado PA [address] [place] [address] [address] [place] [address] Physician Block Placer Physical Medicine and Rehabilitation 07/20/23 Angel Hollins MD [address] [address] Assigned Neuroscience Provider 08/03/23 documented as of this encounter
--- OUTSIDE RECORDS SUMMARY | 2023-09-19 04:51 | XMS_ITS | Clinical Summary ---
Author Organization [facility] Address [address] [place] [address] Care Team Providers Care Executive Director Name Role Phone Kyra Perera Primary Care Provider Angel Hollins MD Unavailable Petra Dorado Unavailable [phone] Angel Hollins MD Unavailable Allergies Active Allergy Reactions Criticality [...] Verapamil Shortness Of Breath High 05/02/2011 Medications Medication Sig Dispensed Refills Start Date End Date Status telmisartan (MICARDIS) 20 MG tablet Take 20 mg by mouth 2 times daily Active ALPRAZolam (XANAX) 0.25 MG tablet Take 0.125 mg by mouth 3 times daily as needed for anxiety Active nitroGLYcerin (NITROSTAT) 0.[address] 0.4 mg under the tongue every 5 minutes as needed for chest pain For chest pain place 1 tablet under the tongue every 5 minutes for 3 doses. If symptoms persist 5 minutes after 1st dose call 911. Active Vitamin D3 (VITAMIN D, CHOLECALCIFEROL,) 25 mcg (1000 units) tablet Take 2 tablets by mouth daily Active acetaminophen (TYLENOL) 325 MG tabletIndications :Right upper quadrant abdominal pain Take 2 tablets (650 mg) by mouth every 4 hours as needed for mild pain or other (and adjunct with moderate or severe pain or per patient request) 4 Active aspirin 81 MG EC tabletIndications :Right upper quadrant abdominal pain Take 1 tablet (81 mg) by mouth daily 4 Active metoprolol tartrate (LOPRESSOR) 25 MG tabletIndications :Benign essential hypertension Take 0.5 tablets (12.5 mg) by mouth 2 times daily 30 tablet 1 4 Active famotidine (PEPCID) 20 MG tabletIndications :Right upper quadrant abdominal pain Take 1 tablet (20 mg) by mouth 2 times daily as needed (if taking Ibuprofen or NSAID for pain) 4 Active Lidocaine (LIDOCARE) 4 % PatchIndications: Right upper quadrant abdominal pain Place 1 patch onto the skin every 24 hours To prevent lidocaine toxicity, patient should be patch free for 12 hrs daily. Apply patch(s) to right upper quadrant or back pain. To prevent lidocaine toxicity, patient should be patch free for 12 hrs daily. Patches may be cut to smaller size prior to removing release liner. Reminder: Remove previous patch before applying new patch. NEVER APPLY HEAT OVER PATCH which increases absorption and may lead to local anesthetic toxicity. Do not apply over area where liposomal bupivacaine was injected for 96 hours post injection. 3 patch 4 Active clopidogrel (PLAVIX) 75 MG tabletIndications :Cerebrovascular accident (CVA) due to thrombosis of left middle cerebral artery (H) Take 1 tablet (75 mg) by mouth daily for 2 days 2 tablet 4 09/03/19 24 Discontinued(Med Rec(No AVS / No eCancel)) metoprolol tartrate (LOPRESSOR) 25 MG tabletIndications :Benign essential hypertension Take 0.25 tablets (6.25 mg) by mouth 2 times daily for 30 days 15 tablet 4 09/03/19 24 Discontinued(Med Rec(No AVS / No eCancel)) rosuvastatin (CRESTOR) 5 MG tabletIndications :Cerebrovascular accident (CVA) due to thrombosis of left middle cerebral artery (H) Take 1 tablet (5 mg) by mouth once a week for 30 days 4 tablet 4 09/03/19 24 Discontinued(Med Rec(No AVS / No eCancel)) aspirin 81 MG EC tabletIndications :Cerebrovascular accident (CVA) due to thrombosis of left middle cerebral artery (H) Take 1 tablet (81 mg) by mouth daily for 30 days 30 tablet 4 08/20/19 24 telmisartan (MICARDIS) 20 MG tabletIndications :Cerebrovascular accident (CVA) due to thrombosis of left middle cerebral artery (H),Benign essential hypertension Take 0.5 tablets (10 mg) by mouth daily for 30 days 15 tablet 4 09/03/19 24 Discontinued(Med Rec(No AVS / No eCancel)) telmisartan (MICARDIS) 20 MG tabletIndications :Benign essential hypertension Take 0.5 tablets (10 mg) by mouth every evening for 30 days 15 tablet 4 09/03/19 24 Discontinued(Med Rec(No AVS / No eCancel)) sucralfate (CARAFATE) 1 GM/10ML suspension Take 10 mLs (1 g) by mouth 4 times daily 414 mL 4 09/05/19 Discontinued(Sto p at Discharge) metoprolol tartrate (LOPRESSOR) 25 MG tablet Take 6.25 mg by mouth 2 times daily 09/04/19 24 Discontinued(Sto p at Discharge) aspirin (ASA) 81 MG chewable tablet Take 81 mg by mouth daily 09/04/19 24 Discontinued(Sto p at Discharge) metoprolol tartrate (LOPRESSOR) 25 MG tabletIndications :Benign essential hypertension Take 0.5 tablets (12.5 mg) by mouth 2 times daily 4 09/04/19 24 Discontinued famotidine (PEPCID) 20 MG tabletIndications :Right upper quadrant abdominal pain Take 1 tablet (20 mg) by mouth 2 times daily as needed (as needed for indigestion) 4 09/05/19 24 Discontinued Lidocaine (LIDOCARE) 4 % PatchIndications: Right upper quadrant abdominal pain Place 1 patch onto the skin every 24 hours To prevent lidocaine toxicity, patient should be patch free for 12 hrs daily. Apply patch(s) to right upper quadrant or back pain. To prevent lidocaine toxicity, patient should be patch free for 12 hrs daily. Patches may be cut to smaller size prior to removing release liner. Reminder: Remove previous patch before applying new patch. NEVER APPLY HEAT OVER PATCH which increases absorption and may lead to local anesthetic toxicity. Do not apply over area where liposomal bupivacaine was injected for 96 hours post injection. 3 patch 4 09/05/19 Discontinued ibuprofen (ADVIL/MOTRIN) 600 MG tabletIndications :Right upper quadrant abdominal pain Take 1 tablet (600 mg) by mouth 2 times daily as needed for moderate pain Take with food, start pepcid if taking ibuprofen for pain. 4 09/10/19 cyclobenzaprine (FLEXERIL) 5 MG tabletIndications :Right upper quadrant abdominal pain Take 1 tablet (5 mg) by mouth 2 times daily as needed (pain in right upper quadrant, back) Do not take within 1 hour of taking Xanax. 12 tablet 4 09/17/19 Active Problems Problem Noted Date Diagnosed Date Left ovarian cyst 09/03/2023 Right upper quadrant abdominal pain 09/03/2023 Other speech disturbance 07/20/2023 Stroke (cerebrum) 07/06/2023 Encounters Date Type Department Care Team Description 09/12/2023 Telephone [facility] [address] 3[address] [place] [phone] Mily Cesar MD Patient Request (Call back ) 09/07/2023 3:00 PM CDT Therapy Visit [address] [address] Ibeth Ellison MD Edin, Matthew M, OT Cerebrovascular accident (CVA) due to thrombosis of left middle cerebral artery (H) (Primary Dx); Activity of daily living alteration 09/07/2023 2:15 PM CDT Therapy Visit [address] [address] Ibeth Ellison MD Katzmark, Erin, PT Cerebrovascular accident (CVA) due to thrombosis of left middle cerebral artery (H) (Primary Dx) 09/07/2023 Travel 09/04/2023 1:48 PM CDT - 09/04/2023 2:18 PM CDT Surgery [facility] [place] [address] [place] [address] Larissa Fox MD Esophagoscopy, gastroscopy, duodenoscopy (EGD), combined using cold bx forcep 09/03/2023 10:24 AM CDT - 09/05/2023 1:31 PM CDT Emergency [facility] Observation Dept [address] [place] [address] Estuardo Mayorga MD Jaleta, Cherinet Negeri, MD Link, Aaron A, MD Right upper quadrant abdominal pain; Left ovarian cyst; Benign essential hypertension Discharge Disposition: Home or Self Care 09/03/2023 Travel 08/31/2023 3:00 PM CDT Therapy Visit [address] [phone] Ibeth Ellison MD Katzmark, Erin, PT Cerebrovascular accident (CVA) due to thrombosis of left middle cerebral artery (H) (Primary Dx) 08/31/2023 2:15 PM CDT Therapy Visit [address] [address] Ibeth Ellison MD Edin, Matthew M, OT Cerebrovascular accident (CVA) due to thrombosis of left middle cerebral artery (H) (Primary Dx); Activity of daily living alteration 08/31/2023 Travel 08/29/2023 3:00 PM CDT Therapy Visit [address] [address] Ibeth Ellison MD Peterson, Megan A, OTR Cerebrovascular accident (CVA) due to thrombosis of left middle cerebral artery (H) (Primary Dx) 08/29/2023 2:00 PM CDT Therapy Visit [address] [address] Ibeth Ellison MD Hoyt, Kelly, PT Cerebrovascular accident (CVA) due to thrombosis of left middle cerebral artery (H) (Primary Dx) 08/29/2023 12:45 PM CDT Therapy Visit [address] [address] Ibeth Ellison MD Raasch, Sharon, P[employer]ER W[employer]ER Other speech disturbance (Primary Dx); Dysarthria due to acute stroke (H); Cerebrovascular accident (CVA) due to thrombosis of left middle cerebral artery (H) 08/29/2023 Travel 08/27/2023 5:46 AM CDT - 08/27/2023 8:19 AM CDT Emergency [facility] Emergency Dept [address] [place] [address] Alvaro Ayala MD Hypertension, unspecified type; Abdominal pain, epigastric Discharge Disposition: Home or Self Care 08/27/2023 Travel 08/24/2023 11:30 AM CDT Therapy Visit [address] [phone] Ibeth Ellison MD Edin, Matthew M, OT Cerebrovascular accident (CVA) due to thrombosis of left middle cerebral artery (H) (Primary Dx); Activity of daily living alteration 08/24/2023 10:15 AM CDT Therapy Visit [address] [address] Ibeth Ellison MD Hoyt, Kelly, PT Cerebrovascular accident (CVA) due to thrombosis of left middle cerebral artery (H) (Primary Dx) 08/24/2023 Travel 08/18/2023 3:00 PM CDT Therapy Visit [address] [phone] Ibeth Ellison MD Peterson, Megan A, OTR Cerebrovascular accident (CVA) due to thrombosis of left middle cerebral artery (H) (Primary Dx) 08/18/2023 2:00 PM CDT Therapy Visit [address] [phone] Ibeth Ellison MD Raasch, Sharon, [employer] W[employer]ER Other speech disturbance (Primary Dx); Dysarthria due to acute stroke (H); Cerebrovascular accident (CVA) due to thrombosis of left middle cerebral artery (H) 08/18/2023 Travel 08/17/2023 10:15 AM CDT Therapy Visit [address] [phone] Ibeth Ellison MD Groshens, Emily, PT Cerebrovascular accident (CVA) due to thrombosis of left middle cerebral artery (H) (Primary Dx) 08/16/2023 10:15 AM CDT Therapy Visit [address] [address] Ibeth Ellison MD Peterson, Megan A, OTR Cerebrovascular accident (CVA) due to thrombosis of left middle cerebral artery (H) (Primary Dx) 08/16/2023 Travel 08/13/2023 1:08 PM CDT - 08/13/2023 2:32 PM CDT Emergency [facility] Emergency Dept [address] [place] [address] Byron Boland MD Sprain of right shoulder, unspecified shoulder sprain type, initial encounter; Closed head injury, initial encounter Discharge Disposition: Home or Self Care 08/13/2023 Travel 08/09/2023 1:30 PM CDT Therapy Visit [address] [address] Ibeth Ellison MD Peterson, Megan A, OTR Cerebrovascular accident (CVA) due to thrombosis of left middle cerebral artery (H) (Primary Dx) 08/09/2023 Travel 08/04/2023 12:45 PM CDT Therapy Visit [address] [address] Ibeth Ellison MD Peterson, Megan A, OTR Cerebrovascular accident (CVA) due to thrombosis of left middle cerebral artery (H) (Primary Dx) 08/04/2023 Travel 08/01/2023 10:15 AM CDT Therapy Visit [address] [address] Ibeth Ellison MD Peterson, Megan A, OTR Cerebrovascular accident (CVA) due to thrombosis of left middle cerebral artery (H) (Primary Dx) 08/01/2023 Documentation Only [facility] [address] [place] [address] Ibeth Ellison MD Hemiplegia of right dominant side as late effect of cerebral infarction, unspecified hemiplegia type (H) (Primary Dx) 08/01/2023 Travel 07/27/2023 10:30 AM CDT Therapy Visit [address] [address] Ibeth Ellison MD Katzmark, Erin, JESSICA Cerebrovascular accident (CVA) due to thrombosis of left middle cerebral artery (H) (Primary Dx) 07/27/2023 9:30 AM CDT Therapy Visit [address] [address] Ibeth Ellison MD Van Dyk, Sara, OTR Cerebrovascular accident (CVA) due to thrombosis of left middle cerebral artery (H) (Primary Dx); Activity of daily living alteration 07/27/2023 Travel 07/25/2023 10:00 AM CDT Virtual Visit [facility] [address] [address] Petra Dorado PA Lakshminarayan, Kamakshi, MD 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) (Primary Dx); Hemiparesis affecting dominant side as late effect of cerebrovascular accident (CVA) (H); Hypertension, unspecified type; Mixed hyperlipidemia 07/20/2023 1:45 PM CDT Therapy Visit [address] [address] Ibeth Ellison MD Raasch, Sharon, P[employer] W[employer]ER Other speech disturbance (Primary Dx); Dysarthria due to acute stroke (H); Cerebrovascular accident (CVA) due to thrombosis of left middle cerebral artery (H) 07/20/2023 12:30 PM CDT Therapy Visit [address] [address] Ibeth Ellison MD Van Dyk, Sara, OTR Cerebrovascular accident (CVA) due to thrombosis of left middle cerebral artery (H) (Primary Dx); Activity of daily living alteration 07/20/2023 10:15 AM CDT Therapy Visit [facility] [address] [place] [address] Ibeth Ellison MD Groshens, Emily, PT Cerebrovascular accident (CVA) due to thrombosis of left middle cerebral artery (H) (Primary Dx) 07/20/2023 Travel 07/19/2023 Telephone [facility] - [address], [address] [place] [address] None Referral 07/06/2023 5:24 PM CDT - 07/19/2023 11:45 AM CDT Hospital Encounter [facility] [address] [address] Ibeth Ellison MD Salehi, Parisa, MD Cerebrovascular accident (CVA) due to thrombosis of left middle cerebral artery (H) (Primary Dx); Anxiety; Benign essential hypertension Discharge Disposition: Home or Self Care from Last 3 Months Family History Medical History Relation Comments Prostate Cancer Brother Cancer Sister Relation Status Comments Brother Sister Social History Tobacco Use Types Packs/Day Years Used Date Smoking Tobacco: Never Smokeless Tobacco: Never Tobacco Cessation:Counseling Given: Not Answered Alcohol Use Standard Drinks/Week Comments Not Currently [...] Sign Reading Time Taken Comments Blood Pressure 159/79 09/05/2023 11:22 AM CDT Pulse 71 09/05/2023 11:22 AM CDT Temperature 36.4 ??C (97.5 ??F) 09/05/2023 11:22 AM C DT Respiratory Rate 18 09/05/2023 11:22 AM CDT Oxygen Saturation 95% 09/05/2023 11:22 AM CDT Inhaled Oxygen Concentration - - Weight 64 kg (141 lb 1.5 oz) 09/03/2023 7:02 PM CDT Height 157.5 cm (5' 2) 09/03/2023 7:02 PM CDT Body Mass Index 25.81 09/03/2023 7:02 PM CDT Plan of Treatment Upcoming Encounters Date Type Department Care Team (Late st Contact Info) Description 09/19/2023 2:15 PM CDT Therapy Visit [address] [phone] Ibeth Ellison MD [address] [place] [address] [phone] Marquita Trivedi, PT 09/19/2023 3:00 PM CDT Therapy Visit [address] [phone] Ibeth Ellison MD [address] [place] [address] [phone] Gabriella Bailey, OTR [address] [address] 09/21/2023 2:15 PM CDT Therapy Visit [address] [phone] Ibeth Ellison MD [address] [place] [address] [phone] Marquita Trivedi, PT 09/21/2023 3:45 PM CDT Therapy Visit [address] [phone] Ibeth Ellison MD [address] [place] [address] [phone] Dylan cMcann, OT 09/26/2023 9:45 AM CDT Therapy Visit [address] [phone] Ibeth Ellison MD [address] [place] [address] [phone] Maura Javier, PT [address] [address] 09/26/2023 11:00 AM CDT Therapy Visit [address] [phone] Ibeth Ellison MD [address] [place] [address] [phone] Gabriella Bailey, OTR [address] [address] 09/28/2023 10:30 AM CDT Therapy Visit [address] [phone] Ibeth Ellison MD [address] [place] [address] [phone] Maura Javier, PT [address] [address] 09/28/2023 11:30 AM CDT Therapy Visit [address] [phone] Ibeth Ellison MD [address] [place] [address] [phone] Dylan Mccann, OT 10/03/2023 9:30 AM CDT Therapy Visit [address] [phone] Ibeth Ellison MD [address] [place] [address] [phone] Gabriella Bailey, OTR FV [address] [address] 10/03/2023 10:30 AM CDT Therapy Visit [address] [phone] Ibeth Ellison MD [address] [place] [address] [phone] Marquita Trivedi, PT 10/05/2023 9:45 AM CDT Therapy Visit [address] [phone] Ibeth Ellison MD [address] [place] [address] [phone] Maura Javier Ap, PT [address] [address] 10/05/2023 10:45 AM CDT Therapy Visit [address] [phone] Ibeth Ellison MD [address] [place] [address] [phone] Dylan Mccann, OT 10/10/2023 9:30 AM CDT Therapy Visit [address] [phone] Ibeth Ellison MD [address] [place] [address] [phone] Gabriella Bailey, OTR FV [address] [place] [address] 10/10/2023 10:30 AM CDT Therapy Visit [address] [phone] Ibeth Ellison MD [address] [place] [phone] Marquita Trivedi, PT 10/12/2023 9:45 AM CDT Therapy Visit [address] [phone] Ibeth Ellison MD [address] [place] [address] [phone] Maura Javier Ap, PT [address] [address] 10/12/2023 10:45 AM CDT Therapy Visit [address] [phone] Ibeth Ellison MD [address] [place] [address] [phone] Dylan Mccann, OT 10/17/2023 9:30 AM CDT Therapy Visit [address] [phone] Ibeth Ellison MD [address] [place] [address] [phone] Gabriella Bailey, OTR [address] [address] 10/17/2023 10:30 AM CDT Therapy Visit [address] [phone] Ibeth Ellison MD [address] [place] [address] [phone] Marquita Trivedi, PT 10/19/2023 10:15 AM CDT Therapy Visit [address] [phone] Ibeth Ellison MD [address] [place] [phone] Annamaria Dennison [phone] [address] 10/19/2023 11:15 AM CDT Therapy Visit [address] [phone] Ibeth Ellison MD [address] [place] [address] [phone] Marquita Trivedi, PT 10/24/2023 12:15 PM CDT Therapy Visit [address] [phone] Ibeth Ellison MD [address] [place] [address] [phone] Maura Javier Ap, PT [address] [address] 10/26/2023 11:30 AM CDT Therapy Visit [address] [phone] Ibeth Ellison MD [address] [place] [address] [phone] Dylan Mccann, OT 10/26/2023 12:15 PM CDT Therapy Visit [address] [phone] Ibeth Ellison MD [address] [place] [phone] Maura Javier Ap, PT [address] 032785 10/31/2023 10:15 AM CDT Therapy Visit [address] [phone] Ibeth Ellison MD [address] [place] [address] [phone] Gabriella Bailey, OTR [address] [address] 10/31/2023 11:15 AM CDT Therapy Visit [address] [phone] Ibeth Ellison MD [address] [place] [address] [phone] Marquita Trivedi, PT 11/02/2023 10:00 AM CDT Therapy Visit [address] [phone] Ibeth Ellison MD [address] [place] [address] [phone] Dylan Mccann, OT 11/02/2023 11:15 AM CDT Therapy Visit [address] [phone] Ibeth Ellison MD [address] [place] [address] [phone] Marquita Trivedi, PT 11/07/2023 10:30 AM CDT Therapy Visit [address] [phone] Ibeth Ellison MD [address] [place] [address] [phone] Marquita Trivedi, PT 11/09/2023 10:30 AM CDT Therapy Visit [address] [phone] Ibeth Ellison MD [address] [place] [address] [phone] Marquita Trivedi, PT 11/14/2023 12:15 PM CDT Therapy Visit [address] [phone] Ibeth Ellison MD [address] [place] [address] [phone] Maura Javier Ap, PT [address] 542405 11/16/2023 10:30 AM CDT Therapy Visit [address] [phone] Ibeth Ellison MD [address] [place] [address] [phone] Marquita Trivedi, PT Health Maintenance Due Date Last Done Comments ADVANCE CARE PLANNING 1950 ANNUAL REVIEW OF HM ORDERS [address] CT COLONOGRAPHY 1950 DEXA 1950 FIT 1950 FLEX SIG 1950 sDNA (Cologuard) 1950 HEPATITIS C SCREENING 1968 LIPID 1990 ZOSTER IMMUNIZATION (1 of 2) 2000 RSV VACCINE ( & 60+) (1 - 1-dose 60+ series) 2010 FALL RISK ASSESSMENT 06/21/2015 Pneumococcal Vaccine: 65+ Years (1 of 1 - PCV) 06/21/2015 COVID-19 Vaccine (3 - 2022- season) 2022 03/16/2021, 05/23/2020 MEDICARE ANNUAL WELLNESS VISIT 01/21/2023 01/21/2022, 01/19/2021, 01/10/2020 INFLUENZA VACCINE (#1) 2023 MAMMO SCREENING 12/09/2023 12/08/2021, 12/08/2021 GLUCOSE 09/03/2026 09/04/2023, 08/12, 08/27/2023, Additional history exists DTAP/TDAP/TD IMMUNIZATION (3 - Td or Tdap) 11/09/2027 11/08/2017, 05/30/2007 COLONOSCOPY 10/10/2032 10/10/2022 COLORECTAL CANCER SCREENING 10/10/2032 PHQ-2 (once per calendar year) Completed 07/25/2023 HPV IMMUNIZATION Aged Out No longer e [...] Procedure Name Priority Date/Time Associated Diagnosis Comments SURGICAL PATHOLOGY EXAM Routine 09/04/2023 2:44 PM CDT UGI ENDOSCOPY DIAG W BIOPSY 09/04/2023 2:23 PM CDT Epigastric pain UPPER GI ENDOSCOPY Routine 09/04/2023 2: 18 PM CDT CBC WITH PLATELETS & DIFFERENTIAL STAT 09/04/2023 5:41 AM CDT CBC WITH PLATELETS AND DIFFERENTIAL STAT 09/04/2023 5:41 AM CDT BASIC METABOLIC PANEL Routine 09/04/2023 5:41 AM CDT CTA ABDOMEN PELVIS WITH CONTRAST STAT 09/03/2023 12:39 PM CDT EKG 12-LEAD, TRACING ONLY STAT 09/03/2023 11:14 AM CDT LACTIC ACID WHOLE BLOOD STAT 09/03/2023 11:10 AM CDT CBC WITH PLATELETS & DIFFERENTIAL STAT 09/03/2023 10:35 AM CDT CBC WITH PLATELETS AND DIFFERENTIAL STAT 09/03/2023 10:35 AM CDT TROPONIN T, HIGH SENSITIVITY STAT 09/03/2023 10:35 AM CDT LIPASE STAT 09/03/2023 10:35 AM CDT COMPREHENSIVE METABOLIC PANEL STAT 09/03/2023 10:35 AM CDT EXTRA BLOOD BANK PURPLE TOP TUBE STAT 09/03/2023 10:35 AM CDT EXTRA BLOOD BANK PURPLE TOP TUBE STAT 09/03/2023 10:35 AM CDT EXTRA PURPLE TOP TUBE STAT 09/03/2023 10:35 AM CDT EXTRA GREEN TOP (LITHIUM HEPARIN) TUBE STAT 09/03/2023 10:35 AM CDT EXTRA BLUE TOP TUBE STAT 09/03/2023 1 0:35 AM CDT EXTRA TUBE STAT 09/03/2023 10:[address] ABDOMEN PELVIS W CONTRAST STAT 08/27/2023 7:[address] HEAD W/O CONTRAST STAT 08/27/2023 7:15 AM CDT EXTRA RED TOP TUBE STAT 08/27/2023 6: 11 AM CDT EXTRA BLUE TOP TUBE STAT 08/27/2023 6 :11 AM CDT EXTRA TUBE STAT 08/27/2023 6:11 AM CDT CBC WITH PLATELETS & DIFFERENTIAL STAT 08/27/2023 6:08 AM CDT CBC WITH PLATELETS AND DIFFERENTIAL STAT 08/27/2023 6:08 AM CDT LIPASE STAT 08/27/2023 6:08 AM CDT COMPREHENSIVE METABOLIC PANEL STAT 08/27/2023 6:08 AM CDT ROUTINE UA WITH MICROSCOPIC STAT 08/27/2023 5:59 AM CDT EKG 12-LEAD, TRACING ONLY STAT 08/27/2023 5:[address] HEAD W/O CONTRAST STAT 08/13/2023 1:18 PM CDT XR SHOULDER RIGHT G/E 3 VIEWS STAT 08/13/2023 1:07 PM CDT MAGNESIUM Routine 07/17/2023 7:44 AM CDT CBC [...] Recently Relevant to Health Maintenance Results * Surgical Pathology Exam (09/04/2023 2:44 PM CDT) Case Report Surgical Pathology Report ? Case: [id number] ? Authorizing Provider: ??Link, Larissa Beckwith MD ?Collected: ? 09/04/2023 02:44 PM ? Ordering Location: ? [facility] ?Received: ?09/04/2023 03:00 PM ? [facility] [place] ? Pathologist: ? Keira Torres, ? MD ? Specimens: ?? A) - Small Intestine, Duodenum, duodenum biopsies ? B) - Stomach, stomach biopsies; evaluate for h pylori etc ? 09/06/2023 10:18 AM [facility] Final Diagnosis A: Small intestine, duodenum, biopsies: -Normal small intestinal mucosa without evidence of untreated sprue, peptic duodenitis or other microscopic alteration B: Stomach, biopsies: -Mildly active, chronic gastritis with reactive epithelial changes, special stain for Helicobacter pylori-like organisms performed and negative -No evidence of intestinal metaplasia, dysplasia or malignancy 09/06/2023 10:18 AM [facility] Comment The gastric sample shows mildly active, chronic gastritis, as described and the special stain for Helicobacter pylori-like organisms is negative. Ancillary testing for Helicobacter may be considered as a negative special stain does not entirely rule out Helicobacter infection. In the absence of an infectious etiology, the findings would suggest irritant reaction. Please correlate clinically. 09/06/2023 10:18 AM [facility] Clinical Information Procedure: Esophagoscopy, gastroscopy, duodenoscopy (EGD), combined using cold bx forcep Pre-op Diagnosis: Epigastric pain [R10.13] Post-op Diagnosis: R10.13 - Epigastric pain [ICD-10-CM] Excerpt from endoscopy note: Impression: - Normal esophagus. - Erythematous mucosa in the stomach. Biopsied. - Normal examined duodenum. Biopsied. 09/06/2023 10:18 AM CDT LABORATORY Gross Description A(1). Small Intestine, Duodenum, duodenum biopsies: The specimen is received in formalin, labeled with the patient's name, medical record number and other identifying information and designated ? duodenum biopsies? . It consists of 7 gordon soft tissue fragments ranging from 0.1-0.3 cm. Entirely submitted in one cassette. B(2). Stomach, stomach biopsies; evaluate for h pylori etc: The specimen is received in formalin, labeled with the patient's name, medical record number and other identifying information and designated ? stomach biopsies, evaluate for H. pylori, etc.? . It consists of 3 gordon soft tissue fragments ranging from 0.2-0.5 cm. Entirely submitted in one cassette. RAJ Mendoza(ASCP) 09/04/2023 3:20 PM 09/06/2023 10:18 AM CDT LABORATORY Microscopic Description A, B. A formal microscopic examination has been performed. A special stain for Helicobacter pylori-like organisms was done on the gastric sample. The patient sample is negative. 09/06/2023 10:18 AM CDT LABORATORY Performing Labs The technical component of this testing was completed at [facility]. Stain controls for all stains resulted within this report have been reviewed and show appropriate reactivity. 09/06/2023 10:18 AM CDT LABORATORY Case Images 09/06/2023 10:18 AM CDT LABORATORY Biopsy DUODENAL STRUCTURE / Unknown 09/04/2023 2:44 PM CDT 09/04/2023 3:00 PM CDT Specimen from unspecified body site obtained by biopsy (specimen) STOMACH STRUCTURE / Unknown 09/04/2023 2:45 PM CDT 09/04/2023 3:00 PM CDT Larissa GARNICA - JOHANTHAN BERNSTEIN LABORATORY [facility] Lab [address] 1st floor, [address] [place] [address], [facility] [phone] LABORATORY [facility] Acute Care Lab [address] [facility] Lab (1st floor, no room number) [place] [address] * UPPER GI ENDOSCOPY (09/04/2023 2:18 PM CDT) [facility] Upper GI Endoscopy [facility] Patient Name: Miya Restrepo ?Procedure Date: 09/04/2023 2:18 PM ? Date of : 1950 ?Admit Type: Outpatient Age: 73 ? Gender: Female Attending MD: LARISSA FOX MD, ?Total Sedation Time: _10_ minutes of continuous bedside 1:1 Instrument Name: 205 - Gastroscope ? Procedure: ?Upper GI endoscopy Indications: ?Abdominal pain in the right upper quadrant Providers: ?LARISSA FOX MD (Doctor) Referring MD: ? Medicines: ?Fentanyl 50 micrograms IV, Midazolam 1 mg IV, ?Benzocaine spray Complications: ?No immediate complications. Procedure: ?Pre-Anesthesia Assessment: ?- Prior to the procedure, a History and Physical ?was performed, and patient medications and ?allergies were reviewed. The patient is competent. ?The risks and benefits of the procedure and the ?sedation options and risks were discussed with the ?patient. All questions were answered and informed ?consent was obtained. Patient identification and ?proposed procedure were verified by the physician ?in the procedure room. Mental Status Examination: ?alert and oriented. Airway Examination: normal ?oropharyngeal airway and neck mobility. Respiratory ?Examination: clear to auscultation. CV Examination: ?regular rate and rhythm. ASA Grade Assessment: II - ?A patient with mild systemic disease. After ?reviewing the risks and benefits, the patient was ?deemed in satisfactory condition to undergo the ?procedure. The anesthesia plan was to use moderate ?sedation / analgesia (conscious sedation). ?Immediately prior to administration of medications, ?the patient was re-assessed for adequacy to receive ?sedatives. The heart rate, respiratory rate, oxygen ?saturations, blood pressure, adequacy of pulmonary ?ventilation, and response to care were monitored ?throughout the procedure. The physical status of ?the patient was re-assessed after the procedure. ?After obtaining informed consent, the endoscope was ?passed under direct vision. Throughout the ?procedure, the patient's blood pressure, pulse, and ?oxygen saturations were monitored continuously. The ?Olympus Gastroscope, Model # GIF-H190, Censitrac # ?[id number] was introduced through the mouth, and ?advanced to the second part of duodenum. The upper ?GI endoscopy was accomplished without difficulty. ?The patient tolerated the procedure well. ? Findings: ? The esophagus was normal. ? Diffuse mildly erythematous mucosa was found in the entire examined ? stomach. Biopsies were taken with a cold forceps for histology. ? The examined duodenum was normal. Biopsies were taken with a cold ? forceps for histology. ? Impression: ? - Normal esophagus. ?- Erythematous mucosa in the stomach. Biopsied. ?- Normal examined duodenum. Biopsied. Recommendation: ? - Await pathology results. ?- No GI tract cause of her pain identified. Given ?that her pain changes with position may be ?musculoskeletal. ?- Discussed with Stella Worthington. Will sign off, ?please call with questions. ? Electonically signed by Larissa Fox MD LARISSA FOX MD 09/04/2023 2:57:47 PM I was physically present for the entire viewing portion of the exam. LARISSA FOX MD Number of Addenda: 0 Note Initiated On: 09/04/2023 2:18 PM MRN: ?[id number] Procedure Date: ? 09/04/2023 2:18:56 PM Total Procedure Duration: 0 hours 7 minutes 21 seconds Estimated Blood Loss: ? Scope In: 2:39:40 PM Scope Out: 2:47:01 PM RADIOLOGY RESULTS 09/04/2023 2:18 PM CDT Larissa Fox MD PROCEDURES RADIOLOGY RESULTS * CBC with platelets and differential (09/04/2023 5:41 AM CDT) Only the most recent of3 resultswithin the time period is included. WBC Count 4.4 4.0 - 11.0 10e3/uL 09/04/2023 6:06 AM CDT [facility] LAB[facility] RBC Count 4.90 3.80 - 5.20 10e6/uL 09/04/2023 6:06 AM CDT [facility] Hemoglobin 14.2 11.7 - 15.7 g/dL 09/04/2023 6:06 AM CDT [facility] Hematocrit 43.0 35.0 - 47.0 % 09/04/2023 6:06 AM CDT [facility] MCV 88 78 - 100 fL 09/04/2023 6:06 AM CDT [facility] MCH 29.0 26.5 - 33.0 pg 09/04/2023 6:06 AM CDT [facility] MCHC 33.0 31.5 - 36.5 g/dL 09/04/2023 6:06 AM CDT [facility] RDW 13.1 10.0 - 15.0 % 09/04/2023 6:06 AM CDT [facility] Platelet Count 163 150 - 450 10e3/uL 09/04/2023 6:06 AM CDT [facility] % Neutrophils 52 % 09/04/2023 6:06 AM CDT [facility] % Lymphocytes 35 % 09/04/2023 6:06 AM CDT [facility] % Monocytes 9 % 09/04/2023 6:06 AM CDT [facility] % Eosinophils 3 % 09/04/2023 6:06 AM CDT [facility] % Basophils 1 % 09/04/2023 6:06 AM CDT [facility] % Immature Granulocytes 0 % 09/04/2023 6:06 AM CDT [facility] NRBCs per 100 WBC 0 <1 /100 024 6:06 AM CDT [facility] Absolute Neutrophils 2.3 1.6 - 8.3 10e3/uL 09/04/2023 6:06 AM CDT [facility] Absolute Lymphocytes 1.5 0.8 - 5.3 10e3/uL 09/04/2023 6:06 AM CDT [facility] Absolute Monocytes 0.4 0.0 - 1.3 10e3/uL 09/04/2023 6:06 AM CDT [facility] Absolute Eosinophils 0.1 0.0 - 0.7 10e3/uL 09/04/2023 6:06 AM CDT [facility] Absolute Basophils 0.0 0.0 - 0.2 10e3/uL 09/04/2023 6:06 AM CDT [facility] Absolute Immature Granulocytes 0.0 <=0.4 10e3/uL 09/04/2023 6:06 AM CDT [facility] Absolute NRBCs 0.0 10e3/uL 09/04/2023 6:06 AM CDT [facility] Blood STRUCTURE OF RIGHT HAND / Unknown Venipuncture / Unknown 09/04/2023 5:41 AM CDT 09/04/2023 6:00 AM CDT Judit Lugo MD LAB - BLOOD OR DERABLES [facility] LABORATORY [facility] Lab [address] Lab (1st floor, no room number) [place] [address], [facility] * Basic metabolic panel (09/04/2023 5:41 AM CDT) Only the most recent of4 resultswithin the time period is included. Sodium 141 135 - 145 mmol/L 09/04/2023 6:24 AM CDT [facility]AT[facility] Comment:Reference intervals for this test were updated on 12/06/2022 to more accurately reflect our healthy population. There may be differences in the flagging of prior results with similar values performed with this method. Interpretation of those prior results can be made in the context of the updated reference intervals. Potassium 3.6 3.4 - 5.3 mmol/L 09/04/2023 6:24 AM CDT LABORATORY Chloride 105 98 - 107 mmol/L 09/04/2023 6:24 AM CDT [facility] Carbon Dioxide (CO2) 23 22 - 29 mmol/L 09/04/2023 6:24 AM CDT LABORATORY Anion Gap 13 7 - 15 mmol/L 09/04/2023 6:24 AM CDT LABORATORY Urea Nitrogen 10.3 8.0 - 23.0 mg/dL 09/04/2023 6:24 AM CDT LABORATORY Creatinine 0.60 0.51 - 0.95 mg/dL 09/04/2023 6:24 AM CDT LABORATORY GFR Estimate >90 >60 mL/min/1. 73m2 09/04/2023 6:24 AM CDT LABORATORY Comment:eGFR calculated usin 2020 CKD-EPI equation. Calcium 9.4 8.8 - 10.2 mg/dL 09/04/2023 6:24 AM CDT LABORATORY Glucose 94 70 - 99 mg/dL 09/04/2023 6:24 AM CDT LABORATORY Blood STRUCTURE OF RIGHT HAND / Unknown Venipuncture / Unknown 09/04/2023 5:41 AM CDT 09/04/2023 6:00 AM CDT Judit Lugo MD LAB - BLOOD OR DERABLES LABORATORY [facility] Lab [address] Lab (1st floor, no room number) [place] [address], [facility] * CTA Abdomen Pelvis with Contrast (09/03/2023 12:39 PM CDT) Anatomical Region Laterality Modality Abdomen/Pelvis, SUBRAD IR NC OCEDURE, UMP CT CTA, RAD CT Computed Tomography 09/03/2023 12:3 9 PM CDT Impressions 09/03/2023 1:19 PM CDT IMPRESSION: 1. ??No acute vascular abnormality. 2. ??A stable 4.7 cm left adnexal cyst. Recommend nonemergent pelvic ultrasound. Narrative 09/03/2023 1:19 PM CDT EXAM: CTA ABDOMEN PELVIS WITH CONTRAST LOCATION: [facility] DATE: 09/03/2023 INDICATION: severe abd pain, mostly RUQ. CT a couple weeks ago. now worse COMPARISON: 08/27/2023 TECHNIQUE: CT angiogram abdomen pelvis during arterial phase of injection of IV contrast. 2D and 3D MIP reconstructions were performed by the agricultural research technologist. Dose reduction techniques were used. CONTRAST: 72mL Isovue 370 FINDINGS: ANGIOGRAM ABDOMEN/PELVIS: No aneurysm, dissection or severe stenosis. Mild- moderate atherosclerosis. The celiac and superior mesenteric arteries are widely patent. The inferior mesenteric artery is patent. LOWER CHEST: Stable mild right basilar scarring. HEPATOBILIARY: Cholecystectomy. Probable hepatic steatosis. PANCREAS: Normal. SPLEEN: Normal. ADRENAL GLANDS: Normal. KIDNEYS/BLADDER: Normal. BOWEL: No obstruction or inflammatory change. No pneumatosis intestinalis or portal venous gas. Appendix not visualized. LYMPH NODES: Normal. PELVIC ORGANS: A stable simple 4.7 cm left adnexal cyst. MUSCULOSKELETAL: Degenerative changes. L5 spondylolysis and anterolisthesis. Procedure Note Steven Cheng MD - 09/03/2023 EXAM: CTA ABDOMEN PELVIS WITH CONTRAST LOCATION: [facility] DATE: 09/03/2023 INDICATION: severe abd pain, mostly RUQ. CT a couple weeks ago. nowworse COMPARISON: 08/27/2023 TECHNIQUE: CT angiogram abdomen pelvis during arterial phase of injectionof IV contrast. 2D and 3D MIP reconstructions were performed by the CTtechnologist. Dose reduction techniques were used. CONTRAST: 72mL Isovue 370 FINDINGS: ANGIOGRAM ABDOMEN/PELVIS: No aneurysm, dissection or severe stenosis.Mild- moderate atherosclerosis. The celiac and superior mesenteric arteriesare widely patent. The inferior mesenteric artery is patent. LOWER CHEST: Stable mild right basilar scarring. HEPATOBILIARY: Cholecystectomy. Probable hepatic steatosis. PANCREAS: Normal. SPLEEN: Normal. ADRENAL GLANDS: Normal. KIDNEYS/BLADDER: Normal. BOWEL: No obstruction or inflammatory change. No pneumatosis intestinalisor portal venous gas. Appendix not visualized. LYMPH NODES: Normal. PELVIC ORGANS: A stable simple 4.7 cm left adnexal cyst. MUSCULOSKELETAL: Degenerative changes. L5 spondylolysis andanterolisthesis. IMPRESSION: 1. No acute vascular abnormality. 2. A stable 4.7 cm left adnexal cyst. Recommend nonemergent pelvicultrasound. Estuardo Mayorga MD IMG CT ORDERABLES * EKG 12-lead, tracing only (09/03/2023 11:14 AM CDT) Only the most recent of2 resultswithin the time period is included. Systolic Blood Pressure mmHg RADIOLOGY RESULTS Diastolic Blood Pressure mmHg RADIOLOGY RESULTS Ventricular Rate 71 BPM RAD IOLOGY RESULTS Atrial Rate 71 BPM RADIOLOG Y RESULTS NC Interval 144 ms RADIOLOG Y RESULTS QRS Duration 86 ms RADIOLO GY RESULTS QT 372 ms RADIOLOGY RESULTS QTc 404 ms RADIOLOGY RESULTS P [place] 21 degrees RADIOLOGY RESULTS R AX[place] 26 degrees RADIOLOGY RESULTS T [place] 39 degrees RADIOLOGY RESULTS Interpretation ECG Sinus rhythm Minimal voltage criteria for LVH, may be normal variant ( Sokolow-Jasso ) Borderline ECG When compared with ECG of 27-AUG-2023 05:52, No significant change was found RADIOLOGY RESULTS 09/03/2023 11:1 4 AM CDT Estuardo Mayorga MD ECG ORDERABLES RADIOLOGY RESULTS * Lactic acid whole blood (09/03/2023 11:10 AM CDT) Lactic Acid 1.2 0.7 - 2.0 mmol/L 09/03/2023 11:16 AM CDT LABORATORY Blood BLOOD SPECIMEN / Unknown Venipuncture / Unknown 09/03/2023 11:10 AM CDT 09/03/2023 11:14 AM CDT Estuardo Mayorga MD LAB - BLOOD ORDERABL ES LABORATORY [facility] Lab [address] Lab (1st floor, no room number) [place] [address], [facility] * Extra Blood Bank Purple Top Tube (09/03/2023 10:35 AM CDT) Only the most recent of2 resultswithin the time period is included. Hold Specimen [facility] 09/03/2023 11:46 AM CDT [facility] LABORATORY Blood VENOUS LINE / Unknown Venipuncture / Unknown 09/03/2023 10:35 AM CDT 09/03/2023 10:40 AM CDT Estuardo Mayorga MD LAB - BLOOD ORDERABL ES [facility] Lab [address] Lab (1st floor, no room number) [address] * Extra Purple Top Tube (09/03/2023 10:35 AM CDT) Hold Specimen [facility] 09/03/2023 11:46 AM CDT [facility] LABORATORY Blood VENOUS LINE / Unknown Venipuncture / Unknown 09/03/2023 10:35 AM CDT 09/03/2023 10:40 AM CDT Estuardo Mayorga MD LAB - BLOOD ORDERABL ES Performing Organization Address [facility]/ZIP Co de Phone Number [facility] Lab [address] Lab (1st floor, no room number) [address] [place] [address] * Extra Green Top ([place] Heparin) Tube (09/03/2023 10:35 AM CDT) Hold Specimen [facility] 09/03/2023 11:46 AM CDT [facility] LABORATORY Blood VENOUS LINE / Unknown Venipuncture / Unknown 09/03/2023 10:35 AM CDT 09/03/2023 10:40 AM CDT Estuardo Mayorga MD LAB - BLOOD ORDERABL ES [facility] Lab [address] Lab (1st floor, no room number) [place] [phone] [place] [address] * Extra Blue Top Tube (09/03/2023 10:35 AM CDT) Only the most recent of2 resultswithin the time period is included. Hold Specimen [facility] 09/03/2023 11:46 AM CDT LABORATORY Blood VENOUS LINE / Unknown Venipuncture / Unknown 09/03/2023 10:35 AM CDT 09/03/2023 10:40 AM CDT Estuardo Mayorga MD LAB - BLOOD ORDERABL ES Performing Organization Address City/[facility]/ZIP Co de Phone Number LABORATORY [facility] Lab [address] Lab (1st floor, no room number) [place] [address] * Troponin T, High Sensitivity (09/03/2023 10:35 AM CDT) Troponin T, High Sensitivity 7 <=14 ng/L 09/03/2023 11:16 AM CDT LABORATORY Comment: Either a High Sensitivity Troponin T baseline (0 hours) value = 100 ng/L, or an increase in High Sensitivity Troponin T = 7 ng/L at 2 hours compared to 0 hours (2-0 hours), suggests myocardial injury, and urgent clinical attention is required. ?? If the 2-0 hours increase is <7 ng/L, a High Sensitivity Troponin T result above gender-specific reference ranges warrants further evaluation. Recommendations for further evaluation include correlation with clinical decision-making tool (e.g., HEART), a 3rd High Sensitivity Troponin T test 2 hours after the 2nd (a 20% change from baseline would represent concern), admission for observation, close PCC/cardiology follow-up, or urgent outpatient provocative testing. Blood VENOUS LINE / Unknown Venipuncture / Unknown 09/03/2023 10:35 AM CDT 09/03/2023 10:40 AM CDT Estuardo Mayorga MD LAB - BLOOD ORDERABL ES LABORATORY [facility] [address] Lab (1st floor, no room number) [place] [address] * Lipase (09/03/2023 10:35 AM CDT) Only the most recent of2 resultswithin the time period is included. Lipase 37 13 - 60 U/L 09/03/2023 11:16 AM CDT LABORATORY Blood VENOUS LINE / Unknown Venipuncture / Unknown 09/03/2023 10:35 AM CDT 09/03/2023 10:40 AM CDT Estuardo Mayorga MD LAB - BLOOD ORDERABL ES LABORATORY [facility] Lab [address] Lab (1st floor, no room number) [place] [address] * Comprehensive metabolic panel (09/03/2023 10:35 AM CDT) Only the most recent of2 resultswithin the time period is included. Pathologist [facility] Sodium 141 135 - 145 mmol/L 09/03/2023 11:16 AM CDT LABORATORY Comment:Reference intervals for this test were updated on 12/06/2022 to more accurately reflect our healthy population. There may be differences in the flagging of prior results with similar values performed with this method. Interpretation of those prior results can be made in the context of the updated reference intervals. Potassium 4.4 3.4 - 5.3 mmol/L 09/03/2023 11:16 AM CDT LABORATORY Carbon Dioxide (CO2) 22 22 - 29 mmol/L 09/03/2023 11:16 AM CDT LABORATORY Anion Gap 15 7 - 15 mmol/L 09/03/2023 11:16 AM CDT [facility] LABORATORY Urea Nitrogen 11.9 8.0 - 23.0 mg/dL 09/03/2023 11:16 AM CDT [facility] LABORATORY Creatinine 0.61 0.51 - 0.95 mg/dL 09/03/2023 11:16 AM CDT LABORATORY GFR Estimate >90 >60 mL/min/1. 73m2 09/03/2023 11:16 AM CDT [facility] LABORATORY Comment:eGFR calculated us2020 CKD-EPI equation. Calcium 10.0 8.8 - 10.2 mg/dL 09/03/2023 11:16 AM CDT [facility] LABORATORY Chloride 104 98 - 107 mmol/L 09/03/2023 11:16 AM CDT [facility] LAB[facility]ATORY Glucose 98 70 - 99 mg/dL 09/03/2023 11:16 AM CDT [facility] LAB[facility]ATORY Alkaline Phosphatase 87 40 - 150 U/L 09/03/2023 11:16 AM CDT [facility] LABORATORY AST 30 0 - 45 U/L 09/03/2023 11:16 AM CDT [facility] LABORATORY Comment:Reference intervals for this test were updated on 08/22/2022 to more accurately reflect our healthy population. There may be differences in the flagging of prior results with similar values performed with this method. Interpretation of those prior results can be made in the context of the updated reference intervals. ALT 29 0 - 50 U/L 09/03/2023 11:16 AM CDT [facility] LAB[facility]AT[facility] Comment:Reference intervals for this test were updated on 08/22/2022 to more accurately reflect our healthy population. There may be differences in the flagging of prior results with similar values performed with this method. Interpretation of those prior results can be made in the context of the updated reference intervals. Protein Total 7.5 6.4 - 8.3 g/dL 09/03/2023 11:16 AM CDT [facility] LAB[facility]ATORY Albumin 4.5 3.5 - 5.2 g/dL 09/03/2023 11:16 AM CDT [facility] LAB[facility] Bilirubin Total 0.4 <=1.2 mg/dL 09/03/2023 11:16 AM CDT [facility] LABORATORY Blood VENOUS LINE / Unknown Venipuncture / Unknown 09/03/2023 10:35 AM CDT 09/03/2023 10:40 AM CDT Estuardo Mayorga MD LAB - BLOOD ORDERABL ES LABORATORY [facility] [address] (1st floor, no room number) [place] [address], [facility] * CT Abdomen Pelvis w Contrast (08/27/2023 7:16 AM CDT) Anatomical Region Laterality Modality Abdomen/Pelvis, SUBRAD CT SADIA DY, UMP CT ABDOMEN PELVIS, RAD CT Computed Tomography 08/27/2023 7:16 AM CDT Impressions 08/27/2023 7:30 AM CDT IMPRESSION: 1. ??Few mild areas of circumferential colonic wall thickening which could represent a mild colitis. 2. ??Left adnexal cyst measuring 4.8 cm. Recommend nonemergent evaluation with pelvic ultrasound. 3. ??Hepatic steatosis. Narrative 08/27/2023 7:30 AM CDT EXAM: CT ABDOMEN PELVIS W CONTRAST LOCATION: [facility] DATE: 08/27/2023 INDICATION: Right flank and abdominal pain, urinary frequency, bloody mucous intermittently in stools COMPARISON: MRCP 07/20/2010. TECHNIQUE: CT scan of the abdomen and pelvis was performed following injection of IV contrast. Multiplanar reformats were obtained. Dose reduction techniques were used. CONTRAST: 100mL Isovue 370 FINDINGS: LOWER CHEST: Lung bases are clear. HEPATOBILIARY: Liver dome is incompletely imaged. Relative hypoattenuation of the hepatic parenchyma suggestive of hepatic steatosis. Cholecystectomy. PANCREAS: Normal. SPLEEN: Normal. ADRENAL GLANDS: Normal. KIDNEYS/BLADDER: Symmetric renal enhancement. No hydronephrosis. Left renal cyst, not requiring specific follow-up. The urinary bladder is unremarkable. BOWEL: No evidence of obstruction. Mild areas of circumferential colonic wall thickening such as within the mid sigmoid colon and at the hepatic flexure. LYMPH NODES: Normal. VASCULATURE: Moderate burden of atherosclerotic disease without abdominal aortic aneurysm. Circumaortic left renal vein. PELVIC ORGANS: Uterine fibroids. Left adnexal cyst measuring 4.8 cm. MUSCULOSKELETAL: Degenerative changes of the spine. Bilateral L5 pars defects with grade 1 anterolisthesis of L5 on S1. Procedure Note Ryan David MD - 08/27/2023 EXAM: CT ABDOMEN PELVIS W CONTRAST LOCATION: [facility] DATE: 08/27/2023 INDICATION: Right flank and abdominal pain, urinary frequency, bloodymucous intermittently in stools COMPARISON: MRCP 07/20/2010. TECHNIQUE: CT scan of the abdomen and pelvis was performed followinginjection of IV contrast. Multiplanar reformats were obtained. Dosereduction techniques were used. CONTRAST: 100mL Isovue 370 FINDINGS: LOWER CHEST: Lung bases are clear. HEPATOBILIARY: Liver dome is incompletely imaged. Relative hypoattenuationof the hepatic parenchyma suggestive of hepatic steatosis.Cholecystectomy. PANCREAS: Normal. SPLEEN: Normal. ADRENAL GLANDS: Normal. KIDNEYS/BLADDER: Symmetric renal enhancement. No hydronephrosis. Leftrenal cyst, not requiring specific follow-up. The urinary bladder isunremarkable. BOWEL: No evidence of obstruction. Mild areas of circumferential colonicwall thickening such as within the mid sigmoid colon and at the hepaticflexure. LYMPH NODES: Normal. VASCULATURE: Moderate burden of atherosclerotic disease without abdominalaortic aneurysm. Circumaortic left renal vein. PELVIC ORGANS: Uterine fibroids. Left adnexal cyst measuring 4.8 cm. MUSCULOSKELETAL: Degenerative changes of the spine. Bilateral L5 parsdefects with grade 1 anterolisthesis of L5 on S1. IMPRESSION: 1. Few mild areas of circumferential colonic wall thickening which couldrepresent a mild colitis. 2. Left adnexal cyst measuring 4.8 cm. Recommend nonemergent evaluationwith pelvic ultrasound. 3. Hepatic steatosis. Radha Cabrera MD IMG CT ORDERABL ES * CT Head w/o Contrast (08/27/2023 7:15 AM CDT) Only the most recent of2 resultswithin the time period is included. Anatomical Region Laterality Modality Head, SUBRAD CT NEURO, SUBRA D CT NEURO, UMP CT NEURO, RAD CT Computed Tomography 08/27/2023 7:15 AM CDT Impressions 08/27/2023 7:22 AM CDT IMPRESSION: 1. ??No acute intracranial process. Narrative 08/27/2023 7:22 AM CDT EXAM: CT HEAD W/O CONTRAST LOCATION: [facility] DATE: 08/27/2023 INDICATION: headache, HTN, stroke earlier this year COMPARISON: 08/13/2023 TECHNIQUE: Routine CT Head without IV contrast. Multiplanar reformats. Dose reduction techniques were used. FINDINGS: INTRACRANIAL CONTENTS: No intracranial hemorrhage, extraaxial collection, or mass effect. ??No CT evidence of acute infarct. 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 Mild to moderate presumed chronic small vessel ischemic changes. Mild generalized volume loss. No hydrocephalus. VISUALIZED ORBITS/SINUSES/MASTOIDS: No intraorbital abnormality. No paranasal sinus mucosal disease. No middle ear or mastoid effusion. BONES/SOFT TISSUES: No scalp hematoma. No skull fracture. Procedure Note Andrew Ruvalcaba MD - 08/27/2023 EXAM: CT HEAD W/O CONTRAST LOCATION: [facility] DATE: 08/27/2023 INDICATION: headache, HTN, stroke earlier this year COMPARISON: 08/13/2023 TECHNIQUE: Routine CT Head without IV contrast. Multiplanar reformats.Dose reduction techniques were used. FINDINGS: INTRACRANIAL CONTENTS: No intracranial hemorrhage, extraaxial collection,or mass effect. No CT evidence of acute infarct. Unchanged small oldinfarction left moore radiata. Mild to moderate presumed chronic smallvessel ischemic changes. Mild generalized volume loss. No hydrocephalus. VISUALIZED ORBITS/SINUSES/MASTOIDS: No intraorbital abnormality. Noparanasal sinus mucosal disease. No middle ear or mastoid effusion. BONES/SOFT TISSUES: No scalp hematoma. No skull fracture. IMPRESSION: 1. No acute intracranial process. Radha Cabrera MD IMG CT ORDERABL ES * Extra Red Top Tube (08/27/2023 6:11 AM CDT) Hold Specimen JI 08/27/2023 7:17 AM CDT LABORATORY Blood VENOUS LINE / Unknown Venipuncture / Unknown 08/27/2023 6:11 AM CDT 08/27/2023 6:17 AM CDT Alvaro Ayala MD LAB - BLOOD AKASH MCCANN [facility] [address] [facility] (1st floor, no room number) [place] [address], [facility] * (ABNORMAL) UA with Microscopic (08/27/2023 5:59 AM CDT) Color Urine Straw Colorless, Straw, Light Yellow, Yellow 08/27/2023 6:07 AM CDT LABORATORY Appearance Urine Slightly Cloudy(A) Clear 08/27/2023 6:07 AM CDT LABORATORY Glucose Urine Negative Negative mg/dL 08/27/2023 6:07 AM CDT LABORATORY Bilirubin Urine Negative Negative 6:07 AM CDT LABORATORY Ketones Urine Negative Negative mg/dL 08/27/2023 6:07 AM CDT LABORATORY Specific [place] Urine 1.005 1.003 - 1.035 08/27/2023 6:07 AM CDT LABORATORY Blood Urine Negative Negative 08/27/2023 6:07 AM CDT LABORATORY pH Urine 6.5 5.0 - 7.0 08/27/2023 6:07 AM CDT LABORATORY Protein Albumin Urine Negative Negative mg/dL 08/27/2023 6:07 AM CDT LABORATORY Urobilinogen Urine Normal Normal, 2.0 mg/dL 08/27/2023 6:07 AM CDT LABORATORY Nitrite Urine Negative Negative 08/27/2023 6:07 AM CDT LABORATORY Leukocyte Esterase Urine Negative Negative 08/27/2023 6:07 AM CDT LABORATORY RBC Urine <1 <=2 /HPF 08/27/2023 6:07 AM CDT LABORATORY WBC Urine <1 <=5 /HPF 08/27/2023 6:07 AM CDT LABORATORY Urine MID-STREAM URINE SPECIMEN / Unknown Non-blood Collection / Unknown 08/27/2023 5:59 AM CDT 08/27/2023 6:03 AM CDT Radha Cabrera MD LAB - URINE ORD ERABLES LABORATORY [facility] [address] [facility] Lab (1st floor, no room number) [place] [address] * XR Shoulder Right G/E 3 Views (08/13/2023 1:07 PM CDT) Anatomical Region Laterality Modality Shoulder, Right Shoulder Right Digital Radiography 08/13/2023 1:07 PM CDT Impressions 08/13/2023 1:12 PM CDT IMPRESSION: Normal alignment. No acute fracture. 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 Narrative 08/13/2023 1:12 PM CDT EXAM: XR SHOULDER RIGHT G/E 3 VIEWS LOCATION: [facility] DATE: 08/13/2023 INDICATION: fall with pain COMPARISON: None. Procedure Note Elgin Champion MD - 08/13/2023 EXAM: XR SHOULDER RIGHT G/E 3 VIEWS LOCATION: [facility] DATE: 08/13/2023 INDICATION: fall with pain COMPARISON: None. IMPRESSION: Normal alignment. No acute fracture. 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 Melida Stevens MD IMG DIAGNOSTIC IMAGI NG ORDERABLES * Magnesium (07/17/2023 7:44 AM CDT) Only the most recent of3 resultswithin the time period is included. Pathologist [facility] Magnesium 1.9 1.7 - 2.3 mg/dL 07/17/2023 9:27 AM CDT UR LABORATORY Blood STRUCTURE OF LEFT HAND / Unknown Venipuncture / Unknown 07/17/2023 7:44 AM CDT 07/17/2023 8:34 AM CDT Petra ANTHONY LAB - BLOOD ORDERAB LES UR LABORATORY [facility] [address] [place] [address] * (ABNORMAL) CBC with platelets (07/17/2023 [...] LABORATORY [facility] [address] [place] [address], [facility] from Last 3 Months or Most Recently Relevant to Health Maintenance Advance Directives For more information, please contact: [phone] * Full Code (Latest Code Status on File) Date Activated Date Inactivated Comments 09/03/2023 5:16 PM 09/05/2023 3:36 PM All basic an d advanced life-sustaining interventions are performed as appropriate Question Answer Comments Code status determined by: Discussion with ke nt/ legal decision maker * Full Code Date Activated Date Inactivated Comments 07/06/2023 5:36 PM 07/19/2023 1:50 PM All basic and advanced life-sustaining interventions are performed as appropriate Question Answer Comments Code status determined by: Discussion with patie nt/ legal decision maker Care Teams Executive Director Relationship Specialty Start Date End Date Kyra Perera [address] [place] [address] PCP - General Physician [employer] 03/31/22 Angel Hollins MD [address] [id number] Neurology 07/20/23 [place] [address] [place] [address] [address] [place] [address] Physician [employer]pper [employer]inter Physical Medicine and Rehabilitation 07/20/23 Angel Hollins MD [address] [id number] Assigned Neuroscience Provider 08/03/23
--- OUTSIDE RECORDS SUMMARY | 2023-09-19 04:51 | XMS_ITS | Referral Summary ---
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 Name Role Phone Kyra Perera Arabella Primary Care Provider [phone] Angel Hollins MD Unavailable Petra Dorado Unavailable [phone] Angel Hollins MD Unavailable [phone] Encounters Date Type Department Care Team Description 09/12/2023 Telephone [facility] Physical Medicine [facility] Rehabilitation Clinic [address] [place] [address] Mily Cesar MD Patient Request (Call back ) 09/07/2023 Travel 09/07/2023 3:00 PM CDT Therapy Visit [address] [phone] Ibeth Ellison MD Edin, Matthew M, OT Cerebrovascular accident (CVA) due to thrombosis of left middle cerebral artery (H) (Primary Dx); Activity of daily living alteration 09/07/2023 2:15 PM CDT Therapy Visit [address] [phone] Ibeth Ellison MD Katzmark, Erin, PT Cerebrovascular accident (CVA) due to thrombosis of left middle cerebral artery (H) (Primary Dx) 09/03/2023 10:24 AM CDT - 09/05/2023 1:31 PM CDT Emergency [facility] Observation Dept [address] [place] [address] Estuardo Mayorga MD Jaleta, Cherinet Negeri, MD Link, Aaron A, MD Right upper quadrant abdominal pain; Left ovarian cyst; Benign essential hypertension Discharge Disposition: Home or Self Care 09/04/2023 1:48 PM CDT - 09/04/2023 2:18 PM CDT Surgery [facility] End[facility] [place] [address] [place] [address] Larissa Fox MD Esophagoscopy, gastroscopy, duodenoscopy (EGD), combined using cold bx forcep 09/03/2023 Travel 08/31/2023 Travel 08/31/2023 2:15 PM CDT Therapy Visit [address] [address] Ibeth Ellison MD Edin, Matthew M, OT Cerebrovascular accident (CVA) due to thrombosis of left middle cerebral artery (H) (Primary Dx); Activity of daily living alteration 08/31/2023 3:00 PM CDT Therapy Visit [address] [address] Ibeth Ellison MD Katzmark, Erin, PT Cerebrovascular accident (CVA) due to thrombosis of left middle cerebral artery (H) (Primary Dx) 08/29/2023 Travel 08/29/2023 3:00 PM CDT Therapy Visit [address] [address] Ibeth Ellison MD Peterson, Megan A, OTR Cerebrovascular accident (CVA) due to thrombosis of left middle cerebral artery (H) (Primary Dx) 08/29/2023 2:00 PM CDT Therapy Visit [address] [address] Ibeth Ellison MD Hoyt, Kelly, PT Cerebrovascular accident (CVA) due to thrombosis of left middle cerebral artery (H) (Primary Dx) 08/29/2023 12:45 PM CDT Therapy Visit [address] [address] Ibeth Ellison MD Raasch, Sharon, DIRECTOR OF MUSIC Other speech disturbance (Primary Dx); Dysarthria due to acute stroke (H); Cerebrovascular accident (CVA) due to thrombosis of left middle cerebral artery (H) 08/27/2023 Travel 08/27/2023 5:46 AM CDT - 08/27/2023 8:19 AM CDT Emergency [facility] Emergency Dept [address] [place] [address] Alvaro Ayala MD Hypertension, unspecified type; Abdominal pain, epigastric Discharge Disposition: Home or Self Care 08/24/2023 Travel 08/24/2023 11:30 AM CDT Therapy Visit [address] [address] Ibeth Ellison MD Edin, Matthew M, OT Cerebrovascular accident (CVA) due to thrombosis of left middle cerebral artery (H) (Primary Dx); Activity of daily living alteration 08/24/2023 10:15 AM CDT Therapy Visit [address] [address] Ibeth Ellison MD Hoyt, Kelly, PT Cerebrovascular accident (CVA) due to thrombosis of left middle cerebral artery (H) (Primary Dx) 08/18/2023 Travel 08/18/2023 3:00 PM CDT Therapy Visit [address] [address] Ibeth Ellison MD Peterson, Megan A, OTR Cerebrovascular accident (CVA) due to thrombosis of left middle cerebral artery (H) (Primary Dx) 08/18/2023 2:00 PM CDT Therapy Visit [address] [address] Ibeth Ellison MD Raasch, Sharon, DIRECTOR OF MUSIC Other speech disturbance (Primary Dx); Dysarthria due to acute stroke (H); Cerebrovascular accident (CVA) due to thrombosis of left middle cerebral artery (H) 08/17/2023 10:15 AM CDT Therapy Visit [address] [address] Ibeth Ellison MD Groshens, Emily, JESSICA Cerebrovascular accident (CVA) due to thrombosis of left middle cerebral artery (H) (Primary Dx) 08/16/2023 Travel 08/16/2023 10:15 AM CDT Therapy Visit [address] [address] Ibeth Ellison MD Peterson, Megan A, OTR Cerebrovascular accident (CVA) due to thrombosis of left middle cerebral artery (H) (Primary Dx) 08/13/2023 Travel 08/13/2023 1:08 PM CDT - 08/13/2023 2:32 PM CDT Emergency [facility] Emergency Dept [address] [place] [address] Byron Boland MD Sprain of right shoulder, unspecified shoulder sprain type, initial encounter; Closed head injury, initial encounter Discharge Disposition: Home or Self Care 08/09/2023 Travel 08/09/2023 1:30 PM CDT Therapy Visit [address] [address] Ibeth Ellison MD Peterson, Megan A, OTR Cerebrovascular accident (CVA) due to thrombosis of left middle cerebral artery (H) (Primary Dx) 08/04/2023 Travel 08/04/2023 12:45 PM CDT Therapy Visit [address] [address] Ibeth Ellison MD Peterson, Megan A, OTR Cerebrovascular accident (CVA) due to thrombosis of left middle cerebral artery (H) (Primary Dx) 08/01/2023 Documentation Only [facility] Physical Medicine and Rehabilitation Clinic [address] [phone] Ibeth Ellison MD Hemiplegia of right dominant side as late effect of cerebral infarction, unspecified hemiplegia type (H) (Primary Dx) 08/01/2023 Travel 08/01/2023 10:15 AM CDT Therapy Visit [address] [address] Ibeth Ellison MD Peterson, Megan A, OTR Cerebrovascular accident (CVA) due to thrombosis of left middle cerebral artery (H) (Primary Dx) 07/27/2023 Travel 07/27/2023 9:30 AM CDT Therapy Visit [address] [address] Ibeth Ellison MD Van Dyk, Sara, OTR Cerebrovascular accident (CVA) due to thrombosis of left middle cerebral artery (H) (Primary Dx); Activity of daily living alteration 07/27/2023 10:30 AM CDT Therapy Visit [address] [address] Ibeth Ellison MD Katzmark, Erin, JESSICA Cerebrovascular accident (CVA) due to thrombosis of left middle cerebral artery (H) (Primary Dx) 07/25/2023 10:00 AM CDT Virtual Visit [facility] Neurology Clinic [address] [phone] Petra Dorado PA Lakshminarayan, Kamakshi, MD 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) (Primary Dx); Hemiparesis affecting dominant side as late effect of cerebrovascular accident (CVA) (H); Hypertension, unspecified type; Mixed hyperlipidemia 07/20/2023 Travel 07/20/2023 1:45 PM CDT Therapy Visit [address] [address] Ibeth Ellison MD Raasch, Sharon, JB Other speech disturbance (Primary Dx); Dysarthria due to acute stroke (H); Cerebrovascular accident (CVA) due to thrombosis of left middle cerebral artery (H) 07/20/2023 12:30 PM CDT Therapy Visit [address] [address] Ibeth Ellison MD Van Dyk, Sara, PAMR Cerebrovascular accident (CVA) due to thrombosis of left middle cerebral artery (H) (Primary Dx); Activity of daily living alteration 07/20/2023 10:15 AM CDT Therapy Visit [address] [address] Ibeth Ellison MD Groshens, Emily, PT Cerebrovascular accident (CVA) due to thrombosis of left middle cerebral artery (H) (Primary Dx) 07/19/2023 Telephone [facility] Neurology Clinics - [address], [address] [place] [address] None Referral 07/06/2023 5:24 PM CDT - 07/19/2023 11:45 AM CDT Hospital Encounter [facility] Acute Rehabilitation Center [address] [address] Ibeth Ellison MD Salehi, Parisa, MD Cerebrovascular accident (CVA) due to thrombosis of left middle cerebral artery (H) (Primary Dx); Anxiety; Benign essential hypertension Discharge Disposition: Home or Self Care from Last 3 Months Allergies Active Allergy [...] 4 times daily 414 mL 4 09/05/19 24 Discontinued(Sto p at Discharge) metoprolol tartrate [...] hours post injection. 3 patch 4 09/05/19 24 Discontinued ibuprofen (ADVIL/MOTRIN) 600 MG tabletIndications :Right upper quadrant abdominal pain Take 1 tablet (600 mg) by mouth 2 times daily as needed for moderate pain Take with food, start pepcid if taking ibuprofen for pain. 4 09/10/19 24 cyclobenzaprine (FLEXERIL) 5 MG tabletIndications :Right upper quadrant abdominal pain Take 1 tablet (5 mg) by mouth 2 times daily as needed (pain in right upper quadrant, back) Do not take within 1 hour of taking Xanax. 12 tablet 4 09/17/19 24 Active Problems Problem Noted Date Diagnosed Date Left ovarian cyst 09/03/2023 Right upper quadrant abdominal pain 09/03/2023 Other speech disturbance 07/20/2023 Stroke (cerebrum) 07/06/2023 Social History Tobacco Use [...] Description 09/19/2023 2:15 PM CDT Therapy Visit [address] [phone] Ibeth Ellison MD [address] [place] [address] [phone] Marquita Trivedi, PT 09/19/2023 3:00 PM CDT Therapy Visit [address] [phone] Ibeth Ellison MD [address] [place] [address] [phone] Gabriella Bailey, OTR [address] [address] 09/21/2023 2:15 PM CDT Therapy Visit [address] [phone] Ibeth Ellison MD [address] [place] [address] [phone] Marquita Trivedi, PT 09/21/2023 3:45 PM CDT Therapy Visit [address] [phone] Ibeth Ellison MD [address] [place] [address] [phone] Dylan Mccann, OT 09/26/2023 9:45 AM CDT Therapy Visit [address] [phone] Ibeth Ellison MD [address] [place] [address] Maura Javier, PT [address] [id number] 09/26/2023 11:00 AM CDT Therapy Visit [address] [phone] Ibeth Ellison MD [address] [place] [address] [phone] Gabriella Bailey, OTR [address] [address] 09/28/2023 10:30 AM CDT Therapy Visit [address] [phone] Ibeth Ellison MD [address] [place] [address] [phone] Maura Javier, PT [address] [address] 09/28/2023 11:30 AM CDT Therapy Visit [address] [phone] Ibeth Ellison MD [address] [place] [address] [phone] Dylan Mccann, OT 10/03/2023 9:30 AM CDT Therapy Visit [address] [address] Ibeth Ellison MD [address] [place] [address] [phone] Gabriella Bailey, OTR FV KARTHAUSMary Lou [address] [phone] 10/03/2023 10:30 AM CDT Therapy Visit [address] [phone] Ibeth Ellison MD [address] [place] [address] [phone] Marquita Trivedi, PT 10/05/2023 9:45 AM CDT Therapy Visit [address] [phone] Ibeth Ellison MD [address] [place] [address] [phone] Maura Javier Ap, PT [address] [phone] 10/05/2023 10:45 AM CDT Therapy Visit [address] [phone] Ibeth Ellison MD [address] [place] [address] [phone] Dylan Mccann, OT 10/10/2023 9:30 AM CDT Therapy Visit [address] [phone] Ibeth Ellison MD [address] [place] [address] [phone] Gabriella Bailey, OTR FV KARTHAUSMary Lou [address] [address] 10/10/2023 10:30 AM CDT Therapy Visit [address] [phone] Ibeth Ellison MD [address] [place] [address] [phone] Marquita Trivedi, PT 10/12/2023 9:45 AM CDT Therapy Visit [address] [phone] Ibeth Ellison MD [address] [place] [address] [phone] Maura Javier Ap, PT [address] 895455 10/12/2023 10:45 AM CDT Therapy Visit [address] [phone] Ibeth Ellison MD [address] [place] [address] [phone] Dylan Mccann, OT 10/17/2023 9:30 AM CDT Therapy Visit [address] [phone] Ibeth Ellison MD [address] [place] [address] [phone] Gabriella Bailey, OTR [address] [address] 10/17/2023 10:30 AM CDT Therapy Visit [address] [phone] Ibeth Ellison MD [address] [place] [address] Marquita Trivedi, PT 10/19/2023 10:15 AM CDT Therapy Visit [address] [phone] Ibeth Ellison MD [address] [place] [address] [phone] Annamaria Dennison [address] [address] 10/19/2023 11:15 AM CDT Therapy Visit [address] [phone] Ibeth Ellison MD [address] [place] [address] [phone] Marquita Trivedi, PT 10/24/2023 12:15 PM CDT Therapy Visit [address] [phone] Ibeth Ellison MD [address] [place] [address] [phone] Maura Javier Ap, PT [address] [phone] 10/26/2023 11:30 AM CDT Therapy Visit [address] [phone] Ibeth Ellison MD [address] [place] [address] [phone] Dylan Mccann, OT 10/26/2023 12:15 PM CDT Therapy Visit [address] [phone] Ibeth Ellison MD [address] [place] [address] Maura Javier Ap, PT [address] 280915 10/31/2023 10:15 AM CDT Therapy Visit [address] [phone] Ibeth Ellison MD [address] [place] [address] [phone] Gabriella Bailey, OTR [address] [address] 10/31/2023 11:15 AM CDT Therapy Visit [address] [phone] Ibeth Ellison MD [address] [place] [address] [phone] Marquita Trivedi, PT 11/02/2023 10:00 AM CDT Therapy Visit [address] [phone] Ibeth Ellison MD [address] [place] [address] [phone] Dylan Mccann, OT 11/02/2023 11:15 AM CDT Therapy Visit [address] [phone] Ibeth Ellison MD [address] [place] [address] Marquita Trivedi, PT 11/07/2023 10:30 AM CDT Therapy Visit [address] [phone] Ibeth Ellison MD [address] [place] [address] [phone] Marquita Trivedi, PT 11/09/2023 10:30 AM CDT Therapy Visit [address] [phone] Ibeth Ellison MD [address] [place] [address] [phone] Marquita Trivedi, PT 11/14/2023 12:15 PM CDT Therapy Visit [address] [phone] Ibeth Ellison MD [address] [place] [address] [phone] Maura Javier Ap, PT [address] 367535 11/16/2023 10:30 AM CDT Therapy Visit [address] [phone] Ibeth Ellison MD [address] [place] [address] [phone] Marquita Trivedi, PT Procedures Procedure Name Priority Date/Time Associated Diagnosis [...] Case Report Surgical Pathology Report ? Case: [id number] ? Authorizing Provider: ??Larissa Fox MD ?Collected: ? 09/04/2023 02:44 PM ? Ordering Location: ? [facility] ?Received: ?09/04/2023 03:00 PM ? [facility] [place] ? Pathologist: ? Keira Torres, ? MD ? Specimens: ?? A) - Small Intestine, Duodenum, duodenum biopsies ? B) - Stomach, stomach biopsies; evaluate for h pylori etc ? 09/06/2023 10:18 AM [facility] Final Diagnosis A: Small intestine, duodenum, biopsies: -Normal small intestinal mucosa without evidence of untreated sprue, peptic duodenitis or other microscopic alteration B: Stomach, biopsies: -Mildly active, chronic gastritis with reactive epithelial changes, special stain for Helicobacter pylori-like organisms performed and negative -No evidence of intestinal metaplasia, dysplasia or malignancy 09/06/2023 10:18 AM [facility] Comment The gastric sample shows mildly active, chronic gastritis, as described and the special stain for Helicobacter pylori-like organisms is negative. Ancillary testing for Helicobacter may be considered as a negative special stain does not entirely rule out Helicobacter infection. In the absence of an infectious etiology, the findings would suggest irritant reaction. Please correlate clinically. 09/06/2023 10:18 AM [facility] Clinical Information Procedure: Esophagoscopy, gastroscopy, [...] cm. Entirely submitted in one cassette. RAJ Mendoza(ASCP)CM 09/04/2023 3:20 PM 09/06/2023 10:18 AM CDT LABORATORY Microscopic Description A, B. A formal microscopic examination has been performed. A special stain for Helicobacter pylori-like organisms was done on the gastric sample. The patient sample is negative. 09/06/2023 10:18 AM CDT LABORATORY Performing Labs The technical component of this testing was completed at [facility]. Stain controls for all [...] 09/04/2023 3:00 PM CDT Larissa GARNICA - JOHNATHAN BERNSTEIN LABORATORY [facility] Acute Care Lab [address] 1st floor, Room 20B [place] [phone], [place] [phone] LABORATORY [facility] Acute Care Lab [address] [facility] Lab (1st floor, no room number) [place] [address], [place] * UPPER GI ENDOSCOPY (09/04/2023 2:18 PM CDT) [facility] Upper GI Endoscopy [facility] Patient Name: Miya Restrepo ?Procedure Date: [...] ?Olympus Gastroscope, Model # GIF-H190, Censitrac # [id number] was introduced through the mouth, and ?advanced [...] Note Initiated On: 09/04/2023 2:18 PM MRN: ?[id number] Procedure Date: ? 09/04/2023 2:18:56 PM Total [...] LAB - BLOOD OR DERABLES [facility] LABORATORY [facility] Acute Care Lab [address] Lab (1st floor, no room number) [place] [address], [facility] * Basic metabolic panel (09/04/2023 5:41 [...] - 107 mmol/L 09/04/2023 6:24 AM CDT LABORATORY Carbon Dioxide (CO2) 23 22 - 29 mmol/L 09/04/2023 6:24 AM CDT LABORATORY Anion Gap 13 7 - 15 mmol/L 09/04/2023 6:24 AM CDT LABORATORY Urea Nitrogen 10.3 8.0 - 23.0 mg/dL 09/04/2023 6:24 AM CDT LABORATORY Creatinine 0.60 0.51 - 0.95 mg/dL 09/04/2023 6:24 AM CDT LABORATORY GFR Estimate >90 >60 mL/min/1. 73m2 09/04/2023 6:24 AM CDT [facility] Comment:eGFR calculated usin 2020 CKD-EPI equation. Calcium 9.4 8.8 - 10.2 mg/dL 09/04/2023 6:24 AM CDT LABORATORY Glucose 94 70 - 99 mg/dL 09/04/2023 6:24 AM CDT LABORATORY Blood STRUCTURE OF RIGHT HAND / Unknown Venipuncture / Unknown 09/04/2023 5:41 AM CDT 09/04/2023 6:00 AM CDT Judit Lugo MD LAB - BLOOD OR DERABLES LABORATORY [facility] Acute Care Lab [address] [facility] Lab (1st floor, no room number) [place] [address], [facility] * CTA Abdomen Pelvis with Contrast [...] EXAM: CTA ABDOMEN PELVIS WITH CONTRAST LOCATION: [facility] DATE: 09/03/2023 INDICATION: severe abd pain, mostly RUQ. CT a couple weeks ago. now worse COMPARISON: 08/27/2023 TECHNIQUE: CT angiogram abdomen pelvis during arterial phase of injection of IV contrast. 2D and 3D MIP reconstructions were performed by the isotope technologist. Dose reduction techniques were used. CONTRAST: [...] EXAM: CTA ABDOMEN PELVIS WITH CONTRAST LOCATION: [facility] DATE: 09/03/2023 INDICATION: severe abd pain, mostly [...] RESULTS QTc 404 ms RADIOLOGY RESULTS P [place] 21 degrees RADIOLOGY RESULTS R [place] 26 degrees RADIOLOGY RESULTS T [place] 39 degrees RADIOLOGY RESULTS Interpretation ECG Sinus rhythm Minimal voltage criteria for LVH, may be normal variant ( Sokolow-Jasso ) Borderline ECG When compared with ECG of 27-AUG-2023 05:52, No significant change was found RADIOLOGY RESULTS 09/03/2023 11:1 4 AM CDT Estuardo Mayorga MD ECG ORDERABLES Performing Organization Address City/State/[facility] Co de Phone Number RADIOLOGY RESULTS * Lactic acid whole blood (09/03/2023 11:10 AM CDT) Lactic Acid 1.2 0.7 - 2.0 mmol/L 09/03/2023 11:16 AM CDT [facility] Blood BLOOD SPECIMEN / Unknown Venipuncture / Unknown 09/03/2023 11:10 AM CDT 09/03/2023 11:14 AM CDT Estuardo Mayorga MD LAB - BLOOD ORDERABL ES [facility] Acute Care Lab [address] Lab (1st floor, no room number) [address] * Extra Blood Bank Purple Top Tube (09/03/2023 10:35 AM CDT) Only the most recent of2 resultswithin the time period is included. Hold Specimen [facility] 09/03/2023 11:46 AM CDT [facility] LABORATORY Blood VENOUS LINE / Unknown Venipuncture / Unknown 09/03/2023 10:35 AM CDT 09/03/2023 10:40 AM CDT Estuardo Mayorga MD LAB - BLOOD ORDERABL ES Performing Organization Address [facility]/ZIP Co de Phone Number [facility] Lab [address] Lab (1st floor, no room number) [address] * Extra Purple Top Tube (09/03/2023 10:35 AM CDT) Hold Specimen [facility] 09/03/2023 11:46 AM CDT [facility] LABORATORY Blood VENOUS LINE / Unknown Venipuncture / Unknown 09/03/2023 10:35 AM CDT 09/03/2023 10:40 AM CDT Estuardo Mayorga MD LAB - BLOOD ORDERABL ES Performing Organization Address City/[facility]/ZIP Co de Phone Number [facility] Acute Care Lab [address] Lab (1st floor, no room number) [address] * Extra Green Top ([place] Heparin) Tube (09/03/2023 10:35 AM CDT) Hold Specimen [facility] 09/03/2023 11:46 AM CDT [facility] LABORATORY Blood VENOUS LINE / Unknown Venipuncture / Unknown 09/03/2023 10:35 AM CDT 09/03/2023 10:40 AM CDT Estuardo Mayorga MD LAB - BLOOD ORDERABL ES Performing Organization Address City/[facility]/ZIP Co de Phone Number LABORATORY [facility] Acute Care Lab [address] Lab (1st floor, no room number) [place] [phone] [place] [address] * Extra Blue Top Tube (09/03/2023 10:35 AM CDT) Only the most recent of2 resultswithin the time period is included. Hold Specimen [facility] 09/03/2023 11:46 AM CDT LABORATORY Blood VENOUS LINE / Unknown Venipuncture / Unknown 09/03/2023 10:35 AM CDT 09/03/2023 10:40 AM CDT Estuardo Mayorga MD LAB - BLOOD ORDERABL ES Performing Organization Address [facility]/ZIP Co de Phone Number [facility] Acute Care Lab [address] Lab (1st floor, no room number) [place] [phone] [place] [address] * Troponin T, High Sensitivity (09/03/2023 10:35 [...] - BLOOD ORDERABL ES Performing Organization Address City/[facility]/ZIP Co de Phone Number LABORATORY [facility] Acute Care Lab [address] Lab (1st floor, no room number) [place] [phone] [place] [address] * Lipase (09/03/2023 10:35 AM CDT) Only the most recent of2 resultswithin the time period is included. Lipase 37 13 - 60 U/L 09/03/2023 11:16 AM CDT LABORATORY Blood VENOUS LINE / Unknown Venipuncture / Unknown 09/03/2023 10:35 AM CDT 09/03/2023 10:40 AM CDT Estuardo Mayorga MD LAB - BLOOD ORDERABL ES Performing Organization Address [facility] Co de Phone Number LABORATORY [facility] Lab [address] Lab (1st floor, no room number) [address] [place] [address] * Comprehensive metabolic panel (09/03/2023 10:35 AM CDT) Only the most recent of2 resultswithin the time period is included. Sodium 141 135 - 145 mmol/L 09/03/2023 [...] - 0.95 mg/dL 09/03/2023 11:16 AM CDT [facility] LABORATORY GFR Estimate >90 >60 mL/min/1. 73m2 09/03/2023 11:16 AM CDT [facility] LABORATORY Comment:eGFR calculated usin 2020 CKD-EPI equation. Calcium 10.0 8.8 - 10.2 [...] Mayorga MD LAB - BLOOD ORDERABL ES [facility] LABORATORY [facility] [address] [facility]1st floor, no room number) [place] [address], [facility] * CT Abdomen Pelvis w Contrast [...] EXAM: CT ABDOMEN PELVIS W CONTRAST LOCATION: [facility] DATE: 08/27/2023 INDICATION: Right flank and abdominal [...] EXAM: CT ABDOMEN PELVIS W CONTRAST LOCATION: [facility] DATE: 08/27/2023 INDICATION: Right flank and abdominal [...] CDT EXAM: CT HEAD W/O CONTRAST LOCATION: [facility] DATE: 08/27/2023 INDICATION: headache, HTN, stroke earlier [...] 08/27/2023 EXAM: CT HEAD W/O CONTRAST LOCATION: [facility] DATE: 08/27/2023 INDICATION: headache, HTN, stroke earlier [...] Ayala MD LAB - BLOOD AKASH MCCANN [facility] Acute Care Lab [address] [facility] Lab (1st floor, no room number) [place] [address], [facility] * (ABNORMAL) UA with Microscopic (08/27/2023 5:59 AM CDT) Color Urine Straw Colorless, Straw, Light Yellow, Yellow 08/27/2023 6:07 AM CDT LABORATORY Appearance Urine Slightly Cloudy(A) Clear 08/27/2023 6:07 AM CDT LABORATORY Glucose Urine Negative Negative mg/dL 08/27/2023 6:07 AM CDT LABORATORY Bilirubin Urine Negative Negative 6:07 AM CDT LABORATORY Ketones Urine Negative Negative mg/dL 08/27/2023 6:07 AM CDT LABORATORY Specific [place] Urine 1.005 1.003 - 1.035 08/27/2023 6:07 [...] MD LAB - URINE ORD ERABLES LABORATORY [facility] Lab [address] [facility] Lab (1st floor, no room number) [place] [address], [facility] * XR Shoulder Right G/E 3 Views (08/13/2023 1:07 PM CDT) Anatomical Region Laterality Modality Shoulder, Right Shoulder Right Digital Radiography 08/13/2023 1:07 PM CDT Impressions 08/13/2023 1:12 PM CDT IMPRESSION: Normal alignment. No acute fracture. 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 Narrative 08/13/2023 1:12 PM CDT EXAM: XR SHOULDER RIGHT G/E 3 VIEWS LOCATION: [facility] DATE: 08/13/2023 INDICATION: fall with pain COMPARISON: None. Procedure Note Elgin Champion MD - 08/13/2023 EXAM: XR SHOULDER RIGHT G/E 3 VIEWS LOCATION: [facility] DATE: 08/13/2023 INDICATION: fall with pain COMPARISON: None. IMPRESSION: Normal alignment. No acute fracture. 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 Melida Stevens MD IMG DIAGNOSTIC IMAGI NG ORDERABLES * Magnesium (07/17/2023 7:44 AM CDT) Only the most recent of3 resultswithin the time period is included. Pathologist [facility] Magnesium 1.9 1.7 - 2.3 mg/dL 07/17/2023 9:27 AM CDT UR LABORATORY Blood STRUCTURE OF LEFT HAND / Unknown Venipuncture / Unknown 07/17/2023 7:44 AM CDT 07/17/2023 8:34 AM CDT Petra ANTHONY LAB - BLOOD ORDERAB LES UR LABORATORY [facility] Acute Care Lab [address] [place] [address] * (ABNORMAL) CBC with platelets (07/17/2023 [...] LAB - BLOOD ORDERAB LES UR LABORATORY [facility] Lab [address] [place] [address], [facility] from Last 3 Months or Most Recently Relevant to Health Maintenance Advance Directives For more information, please contact: [phone] * Full Code (Latest Code Status on File) Date Activated Date Inactivated Comments 09/03/2023 5:16 PM 09/05/2023 3:36 PM All basic an d advanced life-sustaining interventions are performed as appropriate Question Answer Comments Code status determined by: Discussion with patie nt/ legal decision maker * Full Code Date Activated Date Inactivated Comments 07/06/2023 5:36 PM 07/19/2023 1:50 PM All basic and advanced life-sustaining interventions are performed as appropriate Question Answer Comments Code status determined by: Discussion with ke nt/ legal decision maker Care Teams Cloth Dye Range Operator Relationship Specialty Start Date End Date Kyra Perera [address] [place] [address] PCP - General Physician Lunchroom Worker 03/31/22 Angel Hollins MD [address] [address] Neurology 07/20/23 Petra Dorado PA [address] [place] [address] [id number] Physician Lunchroom Worker Physical Medicine and Rehabilitation 07/20/23 Angel Hollins MD [address] [place] [address] Assigned Neuroscience Provider 08/03/23
--- OUTSIDE RECORDS SUMMARY | 2023-09-19 04:51 | XMS_ITS | Continuity of Care Document ---
Author Organization [facility] Address [address] [address] [place] [address] Phone Care Team Providers Care Vacuum Evaporation Operator Name Role Phone Link Jensen MAURICE Unavailable Unavailable Allergies, Adverse Reactions, Alerts Substance [...] as needed - Active Procedures Procedure Date Init Hosp-da E&m Mod Severity 4 Ugi Endo; W/endo Untrasound Ex 11 Init Hosp-da E&m Mod Severity 1 Offic Cons New/estab Mod-hi 60 07 Routine Serum Collection Offic Cons New/estab Mod- Advance Directives Directive Yes / No Effective Date File Name No Information Encounters Encounter Description Practice Location Reason(s) For Visit Diagnoses Date Provider Providers Copied on Encounter [facility], [address] [address], [place], [id number], [place] tel:[phone] [facility] No Information 4 Ben Styles. [address] [facility] [address], [place], [place], [id number], [place]. tel:[phone] Referring Provider: Kyra ANTHONY, [address] [place] [address], [address]. tel:[phone] Init Hosp-da E&m Mod Severity [facility], [address] [address], [place], [place], [id number], [place] tel:[phone] [facility] No Information 4 Agustina Davisvitha. [address] [place] [address], [place], [id number], [place]. tel:[phone] Referring Provider: Kyra ANTHONY, [address] [place] [address], [address]. tel:[phone] [facility], [address] [address], [place], [id number], [place] tel:[phone] [facility] No Information 1 No Information Referring Provider: Andrea Thomas, [address] [place] [address], [address]. tel:[phone] Init Hosp-da E&m Mod Severity [facility], [address] [address], [place], [place], [id number], [place] tel:[phone] [facility] No Information 1 Bela Gatica. [address], [id number], [place]. tel:[phone] Referring Provider: Nazanin Allan MD [place], [facility] [address], [address]. tel:[phone] Offic Cons New/estab Mod-hi 60 [facility], [address] [address], [place], [id number], [place] tel:[phone] [facility] Abdominal Pain, UnspecifiedCo nstipation Unspecified 200 [address] Marino De La Cruz. [address] [facility], [address], [id number], [place]. tel:[phone] Referring Provider: Iván Sweet MD L, [address], [place], [address]. tel:[phone] [facility], [address] [address], [place], [id number], tel:[phone] [facility] No Information 8-200 5 No Information Offic Cons New/estab Mod- [facility], [address] [address], [place], [id number], [place] tel:[phone] [facility] Irritable Bowel SyndromeRUQ pain 2-200 5 No Information Family History Family Member [...] Cirrhosis Payers Payer name Insurance type Covered libertarian ID Authoriza tirashmi(s) [employer] [place] [employer] BL [id number] Social History Type Description Quantity Date Captured [...]
--- OUTSIDE RECORDS SUMMARY | 2023-09-19 04:52 | XMS_ITS | Encounter Summary ---
Author Organization [facility] Address [address] [place] [address] Care Team Providers Care [employer] Name Role Phone Kyra Perera Primary Care Provider Angel Hollins MD Unavailable Petra Dorado Unavailable [phone] Angel Hollins MD Unavailable [phone] Reason for Visit * Reason Comments Abdominal Pain Flank Pain Hypertension * Auth/Cert (Routine) Specialty Diagnoses / Procedures Referred By Scott muniz Referred To Contact Med Surg Diagnoses Left ovarian cyst Right upper quadrant abdominal pain Right upper quadrant abdominal pain Left ovarian cyst [facility] [address] [place] [address] Referral ID Status Reason Start Date Expiration Date Visits Re quested Visits Authorized [id number] 1 1 Encounter Details Date Type Department Care Team (Late st Contact Info) Description 09/04/2023 1:48 PM CDT - 09/04/2023 2:18 PM CDT Surgery [facility] [place] [address] [place] [address] Larissa Fox MD [facility] [address] [facility] [place] [id number] Esophagoscopy, gastroscopy, duodenoscopy (EGD), combined using cold bx forcep Surgery Details Date/Time Status Location OR Service Patient Class Case Class Case Type Trauma Case? 09/04/23 1:48 PM Posted GI GI B Gastroenterology Inpatient NEST 4 - Urgent (within 12hrs) Panel 1 Procedure LRB Anes Op Region Wound Class Comments Esophagoscopy, gastroscopy, duodenoscopy (EGD), combined using cold bx forcep N/A Moderate Sedation Mouth II-Clean Contaminated Surgeon Surgeon Role Service Panel Link, Larissa Beckwith MD Primary Gastroenterology 1 documented in this encounter Social History Tobacco Use Types Packs/Day Years [...] Sign Reading Time Taken Comments Blood Pressure 176/83 09/04/2023 11:16 AM CDT Pulse 63 09/04/2023 11:16 AM CDT Temperature 36.7 ??C (98.1 ??F) 09/04/2023 11:16 AM C DT Respiratory Rate 18 09/04/2023 11:16 AM CDT Oxygen Saturation 94% 09/04/2023 11:16 AM CDT Inhaled Oxygen Concentration - - Weight 64 kg (141 lb 1.5 oz) 09/03/2023 7:02 PM CDT Height 157.5 cm (5' 2) 09/03/2023 7:02 PM CDT Body Mass Index 25.81 09/03/2023 7:02 PM CDT documented in this encounter Discharge Instructions * Discharge Instructions* Stella Worthington PA-C - 09/04/2023 3:01 PM CDT Recommend increased dose of Metoprolol given high blood pressure in the hospital. Please follow up with PCP regarding this change for blood pressure recheck. Sent refill for new dose for when you runout of current metoprolol prescription to your [place] pharmacy. OK to continue aspirin. OK to take limited dose of ibuprofen with food for pain but for no longer than 5 days. See notes in medication orders section. documented in this encounter Medications at Time of Discharge Medication Sig Dispensed Refills Start Date End Date acetaminophen (TYLENOL) 325 MG tabletIndications:Righ t upper quadrant abdominal pain Take 2 tablets (650 mg) by mouth every 4 hours as needed for mild pain or other (and adjunct with moderate or severe pain or per patient request) 09/04/2023 ALPRAZolam (XANAX) 0.25 MG tablet Take 0.125 mg by mouth 3 times daily as needed for anxiety aspirin 81 MG EC tabletIndications:Righ t upper quadrant abdominal pain Take 1 tablet (81 mg) by mouth daily 09/04/2023 famotidine (PEPCID) 20 MG tabletIndications:Righ t upper quadrant abdominal pain Take 1 tablet (20 mg) by mouth 2 times daily as needed (if taking Ibuprofen or NSAID for pain) 09/05/2023 Lidocaine (LIDOCARE) 4 % PatchIndications:Right upper quadrant abdominal pain Place 1 patch [...] for 96 hours post injection. 3 patch 09/05/2023 metoprolol tartrate (LOPRESSOR) 25 MG tabletIndications:Brock gn essential hypertension Take 0.5 tablets (12.5 mg) by mouth 2 times daily 30 tablet 1 09/04/2023 nitroGLYcerin (NITROSTAT) 0.[address] 0.4 mg under the tongue every 5 minutes as needed for chest pain For chest pain place 1 tablet under the tongue every 5 minutes for 3 doses. If symptoms persist 5 minutes after 1st dose call 911. telmisartan (MICARDIS) 20 MG tablet Take 20 mg by mouth 2 times daily Vitamin D3 (VITAMIN D, CHOLECALCIFEROL,) 25 mcg (1000 units) tablet Take 2 tablets by mouth daily cyclobenzaprine (FLEXERIL) 5 MG tabletIndications:Righ t upper quadrant abdominal pain Take 1 tablet (5 mg) by mouth 2 times daily as needed (pain in right upper quadrant, back) Do not take within 1 hour of taking Xanax. 12 tablet 09/05/2023 09/17/2023 ibuprofen (ADVIL/MOTRIN) 600 MG tabletIndications:Righ t upper quadrant abdominal pain Take 1 tablet (600 mg) by mouth 2 times daily as needed for moderate pain Take with food, start pepcid if taking ibuprofen for pain. 09/05/2023 09/10/2023 documented as of this encounter Progress Notes * Stella Worthington PA-C - 09/04/2023 5:13 PM CDT [facility] Medicine Progress Note - Hospitalist Service Date of Admission: 09/03/2023 Assessment & Plan Miya Restrepo is a 73 year old female patient with past medical history of hypertension, hyperlipidemia, coronary artery disease, obstructive sleep apnea, CVA, anxiety, who came to emergency room for evaluation for epigastric pain. Patient states that she has been having epigastric pain for about 2 weeks. She also states that she had noted bloody stool about 3 weeks ago. She denies nausea or vomiting. She states that she had colonoscopy about 6 months ago which was unremarkable. Patient was seen in emergency room on 08/[address] of the abdomen/pelvis which was unremarkable for acute intra-abdominal abnormality. It showed left 4.8 cm adnexal cyst. Patient states that she continued to have epigastric pain and came back to emergency room today forevaluation. Initial vital signs showed temperature 97.8, pulse 74, blood pressure 200/104, oxygen saturation 97% on room air. Lab work unremarkable. CT angiogram abdomen/pelvis done today and showed no acute vascular abnormality. There is a stable 4.7 cm left adnexal cyst. Nonemergent pelvic ultrasound recommended on previous CT scan from 08/26. In the emergency room, she was given Protonix 80 mg IV. Gastroenterology was consulted and planningto do upper endoscopy. Patient was admitted for further evaluation and management. Upper endoscopy on 09/03 with normal esophagus, duodenum. No ulcers. Stomach mucosa biopsied. Abdominal Pain She has some chronic RUQ pain which has been more aggravated in the recent days to week. She deniesany fevers, nausea, vomiting, or other GI symptoms. No respiratory symptoms or dyspnea. She does not use NSAIDs, tobacco, or alcohol. She is on 81 mg of aspirin daily since her stroke and she had been on 21 days of Plavix but has been off for about a month now. Hemoglobin stable. Hepatic panel normal. Her colonoscopy in 2022 was normal but did report internal hemorrhoids. Her EGD in 2021 was normal and gastric and duodenal biopsies were all normal. EGD 09/03 Suspect symptoms are more musculoskeletal in nature, GI Work up negative. Patient intolerant to many medications. OK to continue [employer] pepcid if this was helping. GI will follow up biopsies taken. -reporting pain uncontrolled: adding topical therapy, flexeril PRN -anticipate will not require further work up during this admission Uncontrolled HTN Known history of resistant, uncontrolled HTN. Previously recommended by providers to undergo microvascular study and vasospasm study. Being addressed as an outaptient, recently increased telmisartan. Previously on lasix, since discontinued and was started on metoprolol dose which was increased to 12.5 mg BID this hospital stay. Close follow-up recommended with primary care provider for blood pressure recheck. -If does not tolerate increased dose of metoprolol consider starting Lasix she was taking 20 mg every other day. CVA Patient states that she had CVA about 9 weeks ago and undergoing therapy as outpatient. She still has some residual right-sided weakness. -Continue enteric coated aspirin. Left ovarian cyst CT of the abdomen/pelvis showed 4.8 cm left ovarian cyst. Currently denies lower abdominal pain. -Non-emergent pelvic ultrasound as outpatient. Diet: Diet Advance Diet as Tolerated: Regular Diet Adult DVT Prophylaxis: Pneumatic Compression Devices Cutler Catheter: Not present Lines: None Cardiac Monitoring: None Code Status: Full Code Clinically Significant Risk Factors Present on Admission # Drug Induced Platelet Defect: home medication list includes an antiplatelet medication # Hypertension: Home medication list includes antihypertensive(s) # Overweight: Estimated body mass index is 25.81 kg/m?? as calculated from the following: Height as of this encounter: 1.575 m (5' 2). Weight as of this encounter: 64 kg (141 lb 1.5 oz). Disposition Plan Expected Discharge Date: 09/04/2023 Destination: home Securely message with [employer] (more info) Text page via [facility] Paging/Directory Interval History Ongoing RUQ pain. No dyspnea, nausea, vomiting. No bowel movement. No CP, dyspnea. Physical Exam Vital Signs: Temp: 97.9 ??F (36.6 ??C) Temp src: Oral BP: (!) 150/86 Pulse: 65 Resp: (!) 6 SpO2: 98% O2 Device: None (Room air) Oxygen Delivery: 2 LPM Weight: 141 lbs 1.51 oz Constitutional: Awake, alert, no apparent distress Respiratory: Normal work of breathing. Lungs clear to auscultation bilaterally, no crackles or wheezing. Cardiovascular: Regular rate and rhythm, normal S1 and S2, and no murmur appreciated. GI: Bowel sounds present. soft, non-distended, non-tender. Skin/Integument: Warm, dry. no peripheral edema. MK: tender to palpation near right upper quadrant more midline, lower lateral ribs. Neuro: No focal deficits. Moving all extremities with normal strength. Coordination and sensation grossly intact. Speech clear. No focal deficits. Psych: Appropriate affect. Medical Decision Making 55 MINUTES SPENT BY ME on the date of service doing chart review, history, exam, documentation & further activities per the note. Data PAST 24 HR DATA REVIEWED [id number]} documented in this encounter H&P Notes * Judit Lugo MD - 09/03/2023 5:13 PM CDT [facility] History and Physical Hospitalist Date of Admission: 09/03/2023 Date of Service (when I saw the patient): 09/03/23 Assessment & Plan Miya Restrepo is a 73 year old female patient with past medical history of hypertension, hyperlipidemia, coronary artery disease, obstructive sleep apnea, CVA, anxiety, who came to emergency room for evaluation for epigastric pain. Patient states that she has been having epigastric pain for about2 weeks. She also states that she had noted bloody stool about 3 weeks ago. She denies nausea or vomiting. She states that she had colonoscopy about 6 months ago which was unremarkable. Patient was seen in emergency room on 08/[address] of the abdomen/pelvis which was unremarkable for acute intra-abdominal abnormality. It showed left 4.8 cm adnexal cyst. Patient states that she continued to have epigastric pain and came back to emergency room today forevaluation. Initial vital signs showed temperature 97.8, pulse 74, blood pressure 200/104, oxygen saturation 97% on room air. Lab work unremarkable. CT angiogram abdomen/pelvis done today and showed no acute vascular abnormality. There is a stable 4.7 cm left adnexal cyst. Nonemergent pelvic ultrasound recommended. In the emergency room, she was given Protonix 80 mg IV. Gastroenterology was consulted and planningto do upper endoscopy tomorrow. Patient was admitted for further evaluation and management. Epigastric pain, bloody stool rule out PUD Patient complains of epigastric pain for 2 to 3 weeks. She has been recently diagnosed and placed on Plavix and aspirin. Now on baby aspirin. She states that she had bloody stool about 2 to 3 weeks ago. She continues to have epigastric pain. She denies bloody stool today. Hemoglobin 16.3 today. She was given Protonix 80 mg in the ER. Will put her on Protonix 40 mg IV twice daily. Gastroenterology consulted from emergency room and planning to do endoscopy tomorrow. Will place official consult for GI. Will also keep her n.p.o. after midnight for anticipated procedure in the morning. Hypertension, uncontrolled Recent CVA Patient states that she had CVA about 9 weeks ago and undergoing therapy as outpatient. She still has some residual right-sided weakness. -Will continue aggressive blood pressure control. Noted allergies to labetalol and hydralazine. -Will resume metoprolol and telmisartan. -Will also resume statin Hyperlipidemia -Will resume Crestor Coronary artery disease -Resume your [employer] medications once reviewed by pharmacy Left ovarian cyst CT of the abdomen/pelvis showed 4.8 cm left ovarian cyst. Currently denies lower abdominal pain. -Non-emergent pelvic ultrasound as outpatient. Will admit to observation unit DVT Prophylaxis: Pneumatic Compression Devices Code Status: Full Code Disposition: Expected discharge in 1-2 days Judit Lugo MD Primary Care Physician Kyra Perera Chief Complaint Epigastric pain History is obtained from the patient History of Present Illness Miya Restrepo is a 73 year old female patient with past medical history of hypertension, hyperlipidemia, coronary artery disease, obstructive sleep apnea, CVA, anxiety, who came to emergency room for evaluation for epigastric pain. Patient states that she has been having epigastric pain for about2 weeks. She also states that she had noted bloody stool about 3 weeks ago. She denies nausea or vomiting. She states that she had colonoscopy about 6 months ago which was unremarkable. He states that she was diagnosed with acute stroke 9 weeks ago and has been on Plavix and aspirin. Currently she is on baby aspirin but off Plavix. She is not on Protonix or similar medications. She denies prior history of GI bleeding. She states that she was seen in the emergency room on 08/[address] of the abdomen/pelvis which was unremarkable for acute intra-abdominal abnormality. She was observed overnight and discharged home. Because of worsening of her pain, she came to emergency room for evaluation. On arrival to emergency room, her vital signs were checked and showed temperature 97.8, pulse 74, blood pressure 200/104, oxygen saturation 97% on room air. Laboratory workup showed normal BMP and LFTs. Lipase is also within normal limits. WBC 5.2, hemoglobin 16.3. CT angiogram abdomen/pelvis done today and showed no acute vascular abnormality. There is a stable 4.7 cm left adnexal cyst. Nonemergent pelvic ultrasound recommended. In the emergency room, she was given Protonix 80 mg IV. Gastroenterology was consulted and planningto do upper endoscopy tomorrow. Patient was admitted for further evaluation and management. Past Medical History I have reviewed this patient's medical history and updated it with pertinent information if needed. Past Medical History: Diagnosis Date Anxiety CAD (coronary artery disease) HLD (hyperlipidemia) HTN (hypertension) SHERRIE (obstructive sleep apnea) Past Surgical History I have reviewed this patient's surgical history and updated it with pertinent information if needed. No past surgical history on file. Prior to Admission Medications Prior to Admission Medications Prescriptions Last Dose Informant Patient Reported? Taking? clopidogrel (PLAVIX) 75 MG tablet No No Sig: Take 1 tablet (75 mg) by mouth daily for 2 days metoprolol tartrate (LOPRESSOR) 25 MG tablet No No Sig: Take 0.25 tablets (6.25 mg) by mouth 2 times daily for 30 days rosuvastatin (CRESTOR) 5 MG tablet No No Sig: Take 1 tablet (5 mg) by mouth once a week for 30 days sucralfate (CARAFATE) 1 GM/10ML suspension No No Sig: Take 10 mLs (1 g) by mouth 4 times daily telmisartan (MICARDIS) 20 MG tablet No No Sig: Take 0.5 tablets (10 mg) by mouth daily for 30 days telmisartan (MICARDIS) 20 MG tablet No No Sig: Take 0.5 tablets (10 mg) by mouth every evening for 30 days Facility-Administered Medications: None Allergies Allergies Allergen Reactions Labetalol Shortness Of Breath [...] myalgias. Caused myalgias. Diltiazem Anxiety Methyldopa Rash Social History I have reviewed this patient's social history and updated it with pertinent information if needed. Miya Arabella Kaye Family History I have reviewed this patient's family history and updated it with pertinent information if needed. Family History Problem Relation Age of Onset Cancer Sister Prostate Cancer Brother Review of Systems The 10 point Review of Systems is negative other than noted in the HPI or here. Epigastric pain Physical Exam Temp: 97.8 ??F (36.6 ??C) Temp src: Temporal BP: (!) 153/106 Pulse: 56 Resp: 18 SpO2: 95 % O2 Device: None (Room air) Vital Signs with Ranges Temp: [97.8 ??F (36.6 ??C)] 97.8 ??F (36.6 ??C) Pulse: [56-74] 56 Resp: [18] 18 BP: (153-200)/(85-106) 153/106 SpO2: [94 %-100 %] 95 % 140 lbs 0 oz GEN: Alert, oriented x 3, appears comfortable, NAD. HEENT: Normocephalic/atraumatic, no scleral icterus, no nasal discharge, mouth moist. CV: Regular rate and rhythm, no murmur or JVD. S1 + S2 noted, no S3 or S4. LUNGS: Clear to auscultation bilaterally without rales/rhonchi/wheezing/retractions. Symmetric chest rise on inhalation noted. ABD: Active bowel sounds, soft, non-tender/non-distended. No rebound/guarding/rigidity. EXT: No edema or cyanosis. Hands/feet warm to touch with good signs of peripheral perfusion. No joint synovitis noted. SKIN: Dry to touch, no exanthems noted in the visualized areas. NEURO: Symmetric muscle strength, sensation to touch grossly intact. No new focal deficits appreciated. Data Data reviewed today: I personally reviewed no images or EKG's today. Recent Labs Lab 09/03/23 1035 WBC 5.2 HGB 16.3* MCV 88 PLT 200 NA 141 POTASSIUM 4.4 CHLORIDE 104 CO2 22 BUN 11.9 CR 0.61 ANIONGAP 15 LIZ 10.0 GLC 98 ALBUMIN 4.5 PROTTOTAL 7.5 BILITOTAL 0.4 ALKPHOS 87 ALT 29 AST 30 LIPASE 37 Recent Results (from the past 24 hour(s)) CTA Abdomen Pelvis with Contrast Narrative EXAM: CTA ABDOMEN PELVIS WITH CONTRAST LOCATION: [facility] DATE: 09/03/2023 INDICATION: severe abd pain, mostly RUQ. CT a couple weeks ago. now worse COMPARISON: 08/27/2023 TECHNIQUE: CT angiogram abdomen pelvis during arterial phase of injection of IV contrast. 2D and 3DMIP reconstructions were performed by the cardiovascular technologist. Dose reduction techniques were used. CONTRAST: [...] MUSCULOSKELETAL: Degenerative changes. L5 spondylolysis and anterolisthesis. Impression IMPRESSION: 1. No acute vascular abnormality. 2. A stable 4.7 cm left adnexal cyst. Recommend nonemergent pelvic ultrasound. * Judit Lugo MD - 09/03/2023 5:07 PM CDT [facility] History and Physical Hospitalist Date of Admission: 09/03/2023 Date of Service (when I saw the patient): 09/03/23 Assessment & Plan Miya Restrepo is a 73 year old female patient with past medical history of hypertension, hyperlipidemia, coronary artery disease, obstructive sleep apnea, CVA, anxiety, who came to emergency room for evaluation for epigastric pain. Patient states that she has been having epigastric pain for about2 weeks. She also states that she had noted bloody stool about 3 weeks ago. She denies nausea or vomiting. She states that she had colonoscopy about 6 months ago which was unremarkable. Patient was seen in emergency room on 08/[address] of the abdomen/pelvis which was unremarkable for acute intra-abdominal abnormality. It showed left 4.8 cm adnexal cyst. Patient states that she continued to have epigastric pain and came back to emergency room today forevaluation. Initial vital signs showed temperature 97.8, pulse 74, blood pressure 200/104, oxygen saturation 97% on room air. Lab work unremarkable. CT angiogram abdomen/pelvis done today and showed no acute vascular abnormality. There is a stable 4.7 cm left adnexal cyst. Nonemergent pelvic ultrasound recommended. In the emergency room, she was given Protonix 80 mg IV. Gastroenterology was consulted and planningto do upper endoscopy tomorrow. Patient was admitted for further evaluation and management. Epigastric pain, bloody stool rule out PUD Patient complains of epigastric pain for 2 to 3 weeks. She has been recently diagnosed and placed on Plavix and aspirin. Now on baby aspirin. She states that she had bloody stool about 2 to 3 weeks ago. She continues to have epigastric pain. She denies bloody stool today. Hemoglobin 16.3 today. She was given Protonix 80 mg in the ER. Will put her on Protonix 40 mg IV twice daily. Gastroenterology consulted from emergency room and planning to do endoscopy tomorrow. Will place official consult for GI. Will also keep her n.p.o. after midnight for anticipated procedure in the morning. Hypertension, uncontrolled Recent CVA Patient states that she had CVA about 9 weeks ago and undergoing therapy as outpatient. She still has some residual right-sided weakness. -Will continue aggressive blood pressure control -Will also resume statin Hyperlipidemia -Will resume Crestor Coronary artery disease -Resume your [employer] medications once reviewed by pharmacy Left ovarian cyst CT of the abdomen/pelvis showed 4.8 cm left ovarian cyst. Currently denies lower abdominal pain. -Non-emergent pelvic ultrasound as outpatient. Will admit to observation unit DVT Prophylaxis: Pneumatic Compression Devices Code Status: Full Code Disposition: Expected discharge in 1-2 days Judit Lugo MD Primary Care Physician Kyra Perera Chief Complaint Epigastric pain History is obtained from the patient History of Present Illness Miya Restrepo is a 73 year old female patient with past medical history of hypertension, hyperlipidemia, coronary artery disease, obstructive sleep apnea, CVA, anxiety, who came to emergency room for evaluation for epigastric pain. Patient states that she has been having epigastric pain for about2 weeks. She also states that she had noted bloody stool about 3 weeks ago. She denies nausea or vomiting. She states that she had colonoscopy about 6 months ago which was unremarkable. He states that she was diagnosed with acute stroke 9 weeks ago and has been on Plavix and aspirin. Currently she is on baby aspirin but off Plavix. She is not on Protonix or similar medications. She denies prior history of GI bleeding. She states that she was seen in the emergency room on 08/[address] of the abdomen/pelvis which was unremarkable for acute intra-abdominal abnormality. She was observed overnight and discharged home. Because of worsening of her pain, she came to emergency room for evaluation. On arrival to emergency room, her vital signs were checked and showed temperature 97.8, pulse 74, blood pressure 200/104, oxygen saturation 97% on room air. Laboratory workup showed normal BMP and LFTs. Lipase is also within normal limits. WBC 5.2, hemoglobin 16.3. CT angiogram abdomen/pelvis done today and showed no acute vascular abnormality. There is a stable 4.7 cm left adnexal cyst. Nonemergent pelvic ultrasound recommended. In the emergency room, she was given Protonix 80 mg IV. Gastroenterology was consulted and planningto do upper endoscopy tomorrow. Patient was admitted for further evaluation and management. Past Medical History I have reviewed this patient's medical history and updated it with pertinent information if needed. Past Medical History: Diagnosis Date Anxiety CAD (coronary artery disease) HLD (hyperlipidemia) HTN (hypertension) SHERRIE (obstructive sleep apnea) Past Surgical History I have reviewed this patient's surgical history and updated it with pertinent information if needed. No past surgical history on file. Prior to Admission Medications Prior to Admission Medications Prescriptions Last Dose Informant Patient Reported? Taking? clopidogrel (PLAVIX) 75 MG tablet No No Sig: Take 1 tablet (75 mg) by mouth daily for 2 days metoprolol tartrate (LOPRESSOR) 25 MG tablet No No Sig: Take 0.25 tablets (6.25 mg) by mouth 2 times daily for 30 days rosuvastatin (CRESTOR) 5 MG tablet No No Sig: Take 1 tablet (5 mg) by mouth once a week for 30 days sucralfate (CARAFATE) 1 GM/10ML suspension No No Sig: Take 10 mLs (1 g) by mouth 4 times daily telmisartan (MICARDIS) 20 MG tablet No No Sig: Take 0.5 tablets (10 mg) by mouth daily for 30 days telmisartan (MICARDIS) 20 MG tablet No No Sig: Take 0.5 tablets (10 mg) by mouth every evening for 30 days Facility-Administered Medications: None Allergies Allergies Allergen Reactions Labetalol Shortness Of Breath [...] myalgias. Caused myalgias. Diltiazem Anxiety Methyldopa Rash Social History I have reviewed this patient's social history and updated it with pertinent information if needed. Miya Restrepo Family History I have reviewed this patient's family history and updated it with pertinent information if needed. Family History Problem Relation Age of Onset Cancer Sister Prostate Cancer Brother Review of Systems The 10 point Review of Systems is negative other than noted in the HPI or here. Epigastric pain Physical Exam Temp: 97.8 ??F (36.6 ??C) Temp src: Temporal BP: (!) 153/106 Pulse: 56 Resp: 18 SpO2: 95 % O2 Device: None (Room air) Vital Signs with Ranges Temp: [97.8 ??F (36.6 ??C)] 97.8 ??F (36.6 ??C) Pulse: [56-74] 56 Resp: [18] 18 BP: (153-200)/(85-106) 153/106 SpO2: [94 %-100 %] 95 % 140 lbs 0 oz GEN: Alert, oriented x 3, appears comfortable, NAD. HEENT: Normocephalic/atraumatic, no scleral icterus, no nasal discharge, mouth moist. CV: Regular rate and rhythm, no murmur or JVD. S1 + S2 noted, no S3 or S4. LUNGS: Clear to auscultation bilaterally without rales/rhonchi/wheezing/retractions. Symmetric chest rise on inhalation noted. ABD: Active bowel sounds, soft, non-tender/non-distended. No rebound/guarding/rigidity. EXT: No edema or cyanosis. Hands/feet warm to touch with good signs of peripheral perfusion. No joint synovitis noted. SKIN: Dry to touch, no exanthems noted in the visualized areas. NEURO: Symmetric muscle strength, sensation to touch grossly intact. No new focal deficits appreciated. Data Data reviewed today: I personally reviewed no images or EKG's today. Recent Labs Lab 09/03/23 1035 WBC 5.2 HGB 16.3* MCV 88 PLT 200 NA 141 POTASSIUM 4.4 CHLORIDE 104 CO2 22 BUN 11.9 CR 0.61 ANIONGAP 15 LIZ 10.0 GLC 98 ALBUMIN 4.5 PROTTOTAL 7.5 BILITOTAL 0.4 ALKPHOS 87 ALT 29 AST 30 LIPASE 37 Recent Results (from the past 24 hour(s)) CTA Abdomen Pelvis with Contrast Narrative EXAM: CTA ABDOMEN PELVIS WITH CONTRAST LOCATION: [facility] DATE: 09/03/2023 INDICATION: severe abd pain, mostly RUQ. CT a couple weeks ago. now worse COMPARISON: 08/27/2023 TECHNIQUE: CT angiogram abdomen pelvis during arterial phase of injection of IV contrast. 2D and 3DMIP reconstructions were performed by the cardiovascular technologist. Dose reduction techniques were used. CONTRAST: [...] MUSCULOSKELETAL: Degenerative changes. L5 spondylolysis and anterolisthesis. Impression IMPRESSION: 1. No acute vascular abnormality. 2. A stable 4.7 cm left adnexal cyst. Recommend nonemergent pelvic ultrasound. documented in this encounter Consult Notes * Guadalupe eBrrios APRN OPERATIONS MANAGER STATION - 09/04/2023 9:51 AM CDTAssociated Order(s): GASTROENTEROLOGY IP CONSULT Images from the original note were not included. GASTROENTEROLOGY CONSULTATION Miya Restrepo [address] [facility] [id number] 73 year old female Admission Date/Time: 09/03/2023 Primary Care Provider: Kyra Perera We were asked to see the patient in consultation by Judit Hart MD for evaluation of RUQ pain. CC: Abdominal pain HPI: Miya Restrepo is a 73 year old female with a PMH of hypertension, hyperlipidemia, coronary artery disease, obstructive sleep apnea, CVA, anxiety, and status postcholecystectomy who is admittedfor an evaluation of epigastric pain. Today, patient reports constant epigastric discomfort. Reportedly, has tried sucralfate in the pastwithout any improvement of symptoms. She is very worried about this ongoing pain. She states that there is something wrong with her right mid abdominal area. She is worried there could be stones, or inflammation in her duodenum. She denies other associated symptoms such as nausea, vomiting. Although acknowledges blood-tinged mucousy stools. Denies taking ibuprofen, Aleve, or naproxen type medications on a regular basis. She is on baby aspirin 81 mg daily. She was on Plavix for 21 days when she had stroke. Evidently, contacted her primary GI practice and she was asked to present herself to [facility] or [facility]. Admission labs are notable for normal comprehensive metabolic panel, hemoglobin 16.3, platelets 200,000. CT abdomen and pelvis showed a few mild areas of circumferential colonic wall thickening, left adnexal cyst measuring 4.8 cm, and hepatic steatosis. CT angiogram of abdomen and pelvis showed no vascular abnormality. A stable 4.7 cm left adnexal cyst. Colonoscopy from September 2022 showed internal hemorrhoids otherwise unremarkable. PAST MEDICAL HISTORY: Patient Active Problem List Diagnosis Date Noted Left ovarian cyst 09/03/2023 Priority: Medium Right upper quadrant abdominal pain 09/03/2023 Priority: Medium Other speech disturbance 07/20/2023 Priority: Medium Stroke (cerebrum) (H) 07/06/2023 Priority: Medium ROS: A comprehensive ten point review of systems was negative aside from those in mentioned in the HPI. MEDICATIONS: Prior to Admission medications Medication Sig Start Date End Date Taking? Authorizing Provider ALPRAZolam (XANAX) 0.25 MG tablet Take 0.125 mg by mouth 3 times daily as needed for anxiety Yes Reported, Patient aspirin (ASA) 81 MG chewable tablet Take 81 mg by mouth daily Yes Reported, Patient metoprolol tartrate (LOPRESSOR) 25 MG tablet Take 6.25 mg by mouth 2 times daily Yes Reported, Patient nitroGLYcerin (NITROSTAT) 0.[address] 0.4 mg under the tongue every 5 minutes asneeded for chest pain For chest pain place 1 tablet under the tongue every 5 minutes for 3 doses. If symptoms persist 5 minutes after 1st dose call 911. Yes Reported, Patient telmisartan (MICARDIS) 20 MG tablet Take 20 mg by mouth 2 times daily Yes Reported, Patient Vitamin D3 (VITAMIN D, CHOLECALCIFEROL,) 25 mcg (1000 units) tablet Take 2 tablets by mouth daily Yes Reported, Patient sucralfate (CARAFATE) 1 GM/10ML suspension Take 10 mLs (1 g) by mouth 4 times daily 08/27/23 Alvaro Ayala MD ALLERGIES: Allergies Allergen Reactions Labetalol Shortness Of Breath [...] myalgias. Caused myalgias. Diltiazem Anxiety Methyldopa Rash SOCIAL HISTORY: FAMILY HISTORY: Family History Problem Relation Age of Onset Cancer Sister Prostate Cancer Brother PHYSICAL EXAM: BP (!) 168/94 (BP Location: Left arm) Pulse 65 Temp 98.2 ??F (36.8 ??C) (Oral) Resp 18 Ht 1.575 m (5' 2) Wt 64 kg (141 lb 1.5 oz) SpO2 95% BMI 25.81 kg/m?? General: alert, oriented, NAD SKIN: no suspicious lesions, rashes, jaundice, or spider angiomas EYES: No scleral icterus RESPIRATORY: Non labored breathing, Lungs clear CARDIOVASCULAR: RRR. No murmurs, clicks gallops or rub GASTROINTESTINAL: Active bowel sounds, abdomen soft and epigastric tenderness on palpation. JOINT/EXTREMITIES: extremities normal- no gross deformities noted. No edema noted. NEURO: Grossly WNL. PSYCH: no abnormal anxiety/depression LABS: I reviewed the patient's new clinical lab test results. Recent Labs Lab Test 09/04/23 0541 09/03/23 1035 08/27/23 0608 WBC 4.4 5.2 5.1 HGB 14.2 16.3* 15.8* MCV 88 88 86 PLT 163 200 223 Recent Labs Lab Test 09/04/23 0541 09/03/23 1035 08/27/23 0608 NA 141 141 140 POTASSIUM 3.6 4.4 3.9 CHLORIDE 105 104 103 CO2 23 22 22 BUN 10.3 11.9 15.4 ANIONGAP 13 15 15 LIZ 9.4 10.0 9.5 Recent Labs Lab Test 09/03/23 1035 08/27/23 0608 08/27/23 0559 08/16/19 1748 ALBUMIN 4.5 4.9 -- 4.2 BILITOTAL 0.4 0.4 -- 0.3 ALT 29 30 -- 47 AST 30 31 -- 30 ALKPHOS 87 92 -- 121 PROTEIN -- -- Negative -- LIPASE 37 43 -- -- IMAGING/PROCEDURES: CTAP 08/26 IMPRESSION: 1. Few mild areas of circumferential colonic wall thickening which could represent a mild colitis. 2. Left adnexal cyst measuring 4.8 cm. Recommend nonemergent evaluation with pelvic ultrasound. 3. Hepatic steatosis. CTA AP 09/02 IMPRESSION: 1. No acute vascular abnormality. 2. A stable 4.7 cm left adnexal cyst. Recommend nonemergent pelvic ultrasound. I personally reviewed the patient's new imaging results. Problem list pertaining to GI: Epigastric and RUQ pain S/P lo several years ago Assessment: This is a 73 y-o female with PMH of hypertension, hyperlipidemia, coronary artery disease, obstructive sleep apnea, CVA, anxiety, and status postcholecystectomy who is admitted for an evaluation of epigastric pain.Labs and imaging without clear indication for her pain. Differentials considered are gastritis, or duodenitis or non ulcer pain, or visceral sensitivity. Plan: - NPO - EGD today - Continue protonix - Further recommendation to follow after EGD - Continue dicyclomine twice daily - Ambulate - Bowel regimen I will discuss with Dr. Fox Thank you for allowing me to participate in the care of this patient. Please contact me with any questions or concerns. Total time spent: Approximately, 45 minutes was spent providing patient care, including patient evaluation, reviewing documentation/test results, and mental health orderly. Thank you for asking us to participate in the care of this patient. Guadalupe Berrios, [facility] ([facility]) [phone] Associated attestation - Larissa Fox MD - 09/04/2023 3:04 PM CDT GI/Hepatology Staff addendum This patient was discussed in detail with NPPA, seen and examined by myself, please see my findingsas outlined below. She describes RUQ abdominal pain which radiates to her back. She notes that it often changes based on her position. Denies any NSAID use. Reported a single bloody stool 3 weeks ago, none since. Had internal hemorrhoids on colonoscopy last year. Physical Exam: General Appearance: alert, oriented x3, no acute distress. BP (!) 181/101 Pulse 70 Temp 98.1 ??F (36.7 ??C) (Oral) Resp 15 Ht 1.575 m (5' 2) Wt 64 kg (141 lb 1.5 oz) SpO2 94% BMI 25.81 kg/m?? : Eye: sclera anicteric. GI: Soft, NABS, mild RUQ tenderness without rebound. Neuro: no asterixis. COMMENTS: Reviewed the patient's pertinent lab and imaging results. Assessment and Plan: 73 year old female with abdominal pain, normal imaging and labs. DDx includes PUD, gastritis, esophagitis, H pylori. Musculoskeletal also possible given positional nature. EGD today, further recs to follow. Total time spent on patient care activities 18 minutes Larissa Fox MD documented in this encounter Nursing Notes * Hallie Begum RN - 09/04/2023 3:00 PM CDT Pt tolerated egd with biopsies well. Vss. Will observe pt in endoscopy for 30 minutes then send pt back to station on stretcher. Report called to station nurse. See MD note. documented in this encounter ED Notes * Sadie Cespedes RN - 09/03/2023 3:56 PM CDT [facility] ED Nurse Handoff Report ED Chief complaint: Abdominal Pain, Flank Pain, and Hypertension . ED Diagnosis: Final diagnoses: Right upper quadrant abdominal pain Left ovarian cyst Allergies: Allergies Allergen Reactions Labetalol Shortness Of Breath [...] myalgias. Caused myalgias. Diltiazem Anxiety Methyldopa Rash Code Status: Full Code Activity level - Baseline/Home: standby and assist of 1. Activity Level - Current: assist of 1. Lift room needed: No. Bariatric: No Telegraphic Typewriter Installer Needed: No Isolation: No. Infection: Not Applicable. Respiratory status: Room air Vital Signs (within 30 minutes): Vitals: 09/03/23 1417 09/03/23 1419 09/03/23 1549 09/03/23 1550 BP: (!) 176/106 (!) 175/101 (!) 178/85 Pulse: 66 65 Resp: 18 Temp: TempSrc: SpO2: 100% 94% Weight: Height: Cardiac Rhythm: , Pain level: Patient confused: No. Patient Falls Risk: patient and family education. Elimination Status: Has voided Patient Report - Initial Complaint: Pt arrives with c/o continued right flank/abd pain that started3 weeks ago. Pt reports she was seen last week for the same. Pt endorses some bloody mucus in her stools. . Focused Assessment: Abdominal Pain Assessments Abdominal Pain AssessmentsAbdominal Appearance: roundedAbdominal Palpation: RUQRUQ Abdominal Palpation: guarding Gastrointestinal WDLGastrointestinal WDL: GI symptoms; .WDL exceptGI Signs/Symptoms: abdominal discomfort Abnormal Results: Labs Ordered and Resulted from Time of ED Arrival to Time of ED Departure CBC WITH PLATELETS AND DIFFERENTIAL - Abnormal Result Value WBC Count 5.2 RBC Count 5.58 (*) Hemoglobin 16.3 (*) Hematocrit 49.1 (*) MCV 88 MCH 29.2 MCHC 33.2 RDW 13.2 Platelet Count 200 % Neutrophils 60 % Lymphocytes 29 % Monocytes 8 % Eosinophils 2 % Basophils 0 % Immature Granulocytes 0 NRBCs per 100 WBC 0 Absolute Neutrophils 3.1 Absolute Lymphocytes 1.5 Absolute Monocytes 0.4 Absolute Eosinophils 0.1 Absolute Basophils 0.0 Absolute Immature Granulocytes 0.0 Absolute NRBCs 0.0 COMPREHENSIVE METABOLIC PANEL - Normal Sodium 141 Potassium 4.4 Carbon Dioxide (CO2) 22 Anion Gap 15 Urea Nitrogen 11.9 Creatinine 0.61 GFR Estimate >90 Calcium 10.0 Chloride 104 Glucose 98 Alkaline Phosphatase 87 AST 30 ALT 29 Protein Total 7.5 Albumin 4.5 Bilirubin Total 0.4 LIPASE - Normal Lipase 37 LACTIC ACID WHOLE BLOOD - Normal Lactic Acid 1.2 TROPONIN T, HIGH SENSITIVITY - Normal Troponin T, High Sensitivity 7 CTA Abdomen Pelvis with Contrast Final Result IMPRESSION: 1. No acute vascular abnormality. 2. A stable 4.7 cm left adnexal cyst. Recommend nonemergent pelvic ultrasound. Treatments provided: labs Family Comments: s/o at bedside intermittently OBS brochure/video discussed/provided to patient: No ED Medications: Medications sodium chloride 0.9% BOLUS 1,000 mL (0 mLs Intravenous Stopped 09/03/23 1340) oxyCODONE (ROXICODONE) tablet 5 mg (5 mg Oral $Given 09/03/23 1132) iopamidol (ISOVUE-370) solution 72 mL (72 mLs Intravenous $Given 09/03/23 1230) sodium chloride (PF) 0.9% PF flush 80 mL (80 mLs Intravenous $Given 09/03/23 1228) alum & mag hydroxide-simethicone (MAALOX) suspension 15 mL (15 mLs Oral $Given 09/03/23 1415) dicyclomine (BENTYL) tablet 20 mg (20 mg Oral $Given 09/03/23 1415) pantoprazole (PROTONIX) IV push injection 80 mg (80 mg Intravenous $Given 09/03/23 1540) Drips infusing: No For the majority of the shift this patient was Green. Interventions performed were N/A. Sepsis treatment initiated: No Cares/treatment/interventions/medications to be completed following ED care: pain control, patient appreciates a gentle approach ED Nurse Name: Gabriella Jacome RN 3:56 PM RECEIVING UNIT ED HANDOFF REVIEW Above ED Nurse Handoff Report was reviewed: Yes Reviewed by: Sadie Cespedes RN on September 03, 2023 at 5:54 PM I Melissa called the ED to inform them the note was read: Yes * Gabriella Jacome RN - 09/03/2023 9:51 AM CDT Pt arrives with c/o continued right flank/abd pain that started 3 weeks ago. Pt reports she was seen last week for the same. Pt endorses some bloody mucus in her stools. Triage Assessment (Adult) Row Name 09/03/23 0951 Triage Assessment Airway WDL WDL Respiratory WDL Respiratory WDL WDL Skin Circulation/Temperature WDL Skin Circulation/Temperature WDL WDL Cardiac WDL Cardiac WDL WDL Peripheral/Neurovascular WDL Peripheral Neurovascular WDL WDL Cognitive/Neuro/Behavioral WDL Cognitive/Neuro/Behavioral WDL WDL * Estuardo Mayorga MD - 09/03/2023 9:45 AM CDT Emergency Department Note History of Present Illness Chief Complaint Abdominal Pain, Flank Pain, and Hypertension HPI Miya Restrepo is a 73 year old female who presents at the emergency department for evaluation of centralized abdominal pain and right flank pain. Miya reports that for the past 3 weeks she experienced consistent abdominal and flank pain. She explains that her pain has recently worsened and radiates to feel like labor. She denies nausea, vomiting, fever, and shortness of breath. She endorse loss of appetite and a little chest pain. Miya notes history of stroke 9 weeks ago, for which she is on Asprin. She is concerned with mucus blood in her stool which has been present for weeks. She has history of C- section surgery and gallbladder removal, but denies history of aneurism or a- fib. The patient notes she has been on sucralfate and pepcid for a week but no omeprazole. Miya mentions she had similar stomach pain years ago, but was never diagnosed. Independent Historian None Review of External Notes August 23-office visit for blood in stool and ED visit on August 26 for abdominal pain. Past Medical History Medical History and Problem List Anxiety Coronary artery disease Hyperlipidemia) Hypertension) Obstructive sleep apnea Medications Plavix Lopressor Crestor Carafate Micardis Physical Exam Patient Vitals for the past 24 hrs: BP Temp Temp src Pulse Resp SpO2 Height Weight 09/03/23 1610 -- -- -- -- -- 95 % -- -- 09/03/23 1605 (!) 153/106 -- -- 56 -- -- -- -- 09/03/23 1550 -- -- -- -- -- 94 % -- -- 09/03/23 1549 (!) 178/85 -- -- 65 -- -- -- -- 09/03/23 1419 (!) 175/101 -- -- -- -- -- -- -- 09/03/23 1417 (!) 176/106 -- -- 66 18 100 % -- -- 09/03/23 0952 (!) 200/104 97.8 ??F (36.6 ??C) Temporal 74 18 97 % 1.575 m (5' 2) 63.5 kg (140 lb) Physical Exam GENERAL: Patient sitting in wheelchair. Tearful and upset but nontoxic. HEAD: Atraumatic. NECK: No rigidity CV: RRR, no murmurs, rubs or gallops PULM: CTAB with good aeration; no retractions, rales, rhonchi, or wheezing ABD: Soft, epigastric and right upper quadrant tenderness to palpation without skin changes, nondistended, no guarding DERM: No rash. Skin warm and dry Diagnostics Lab Results Labs Ordered and Resulted from Time of ED Arrival to Time of ED Departure CBC WITH PLATELETS AND DIFFERENTIAL - Abnormal Result Value WBC Count 5.2 RBC Count 5.58 (*) Hemoglobin 16.3 (*) Hematocrit 49.1 (*) MCV 88 MCH 29.2 MCHC 33.2 RDW 13.2 Platelet Count 200 % Neutrophils 60 % Lymphocytes 29 % Monocytes 8 % Eosinophils 2 % Basophils 0 % Immature Granulocytes 0 NRBCs per 100 WBC 0 Absolute Neutrophils 3.1 Absolute Lymphocytes 1.5 Absolute Monocytes 0.4 Absolute Eosinophils 0.1 Absolute Basophils 0.0 Absolute Immature Granulocytes 0.0 Absolute NRBCs 0.0 COMPREHENSIVE METABOLIC PANEL - Normal Sodium 141 Potassium 4.4 Carbon Dioxide (CO2) 22 Anion Gap 15 Urea Nitrogen 11.9 Creatinine 0.61 GFR Estimate >90 Calcium 10.0 Chloride 104 Glucose 98 Alkaline Phosphatase 87 AST 30 ALT 29 Protein Total 7.5 Albumin 4.5 Bilirubin Total 0.4 LIPASE - Normal Lipase 37 LACTIC ACID WHOLE BLOOD - Normal Lactic Acid 1.2 TROPONIN T, HIGH SENSITIVITY - Normal Troponin T, High Sensitivity 7 Imaging CTA Abdomen Pelvis with Contrast Final Result IMPRESSION: 1. No acute vascular abnormality. 2. A stable 4.7 cm left adnexal cyst. Recommend nonemergent pelvic ultrasound. EKG ECG interpreted by me. Time 1114 NSR at [address] No [address] elevation or depression. Normal intervals. Normal axis. Minimal voltage criteria for LVH-unchanged from prior. Independent Interpretation None ED Course Medications Administered Medications sodium chloride 0.9% BOLUS 1,000 mL (0 mLs Intravenous Stopped 09/03/23 1340) oxyCODONE (ROXICODONE) tablet 5 mg (5 mg Oral $Given 09/03/23 1132) iopamidol (ISOVUE-370) solution 72 mL (72 mLs Intravenous $Given 09/03/23 1230) sodium chloride (PF) 0.9% PF flush 80 mL (80 mLs Intravenous $Given 09/03/23 1228) alum & mag hydroxide-simethicone (MAALOX) suspension 15 mL (15 mLs Oral $Given 09/03/23 1415) dicyclomine (BENTYL) tablet 20 mg (20 mg Oral $Given 09/03/23 1415) pantoprazole (PROTONIX) IV push injection 80 mg (80 mg Intravenous $Given 09/03/23 1540) Procedures Procedures Discussion of Management Discussed with physiatrist Dr. Pichardo. I discussed admission and the plan of care with the Hospitalist. Social Determinants of Health adding to complexity of care None ED Course ED Course as of 09/03/23 1703 Sun Sep 03, 2023 1053 I obtained history and examined the patient as noted above 1054 I obtained history and examined the patient as noted above Medical Decision Making / Diagnosis LUX Miya Restrepo is a 73 year old female Presenting with significant epigastric and right upper quadrant abdominal pain with recent visit for the same. Patient was significantly hypertensive upon initial arrival therefore ordered CTA of the abdomen pelvis which was negative for acute process. Ordered basic labs which are overall reassuring. She doeshave erythrocytosis which is not significantly changed from prior. Lactate within normal limits. She also states that her chest was slightly irritated so troponin that was unremarkable. ECG unchangedfrom prior. Given oxycodone, fluids, but pain was still severe. Given GI cocktail and Bentyl and had minimal improvement. Patient's still endorses that the pain is very concerning and she is concerned about going home with how bad the pain is. Therefore I discussed with gastroenterology Dr. Estevez current plan is for potential endoscopy in the morning. Given IV Protonix here. Discussed with hospitalist and patient to be admitted. Incidental ovarian cyst. Recommend outpatient follow-up. Patient made aware. Disposition The patient was admitted to the hospital. ICD-10 Codes: ICD-10-CM 1. Right upper quadrant abdominal pain R10.11 2. Left ovarian cyst N83.202 Discharge Medications New Prescriptions No medications on file Scribe Disclosure: Terry Patel, am serving as a scribe at 1:45 PM on 09/03/2023 to document services personally performed by Estuardo Mayorga MD based on my observations and the provider's statements to me. Estuardo Mayorga MD 09/03/23 1706 documented in this encounter Miscellaneous Notes * Plan of Care - Chelsea Heath RN - 09/05/2023 12:56 PM CDT Patient's After Visit Summary was reviewed with patient and/or family. Patient verbalized understanding of After Visit Summary, recommended follow up and was given an opportunity to ask questions. Discharge medications sent home with patient/family: Scripts sent home with pt. Pt picking up medications from her local pharmacy. Discharged with daughter Provided cares for pt from [id number]. Pt a/o x4. C/o abdominal and back pain, Tylenol, flexeril, and lidocaine patch given, small amount of relief. Independent in room. R arm weak and R side of mouthdroop from previous stroke, pt stated that is her baseline. Pt discharged home with lidocaine patchin place, pt knows to take patch off tonight before bed. Educated pt to not take flexeril and xanaxat the same time. Educated pt to eat food when taking ibuprofen and take Pepcid while taking ibuprofen. Pt discharged home with daughter. Plan of Care Reviewed With: patient Overall Patient Progress: no changeOverall Patient Progress: no change Outcome Evaluation: a/o x4, c/o abd and back paiun, tylenol given. Independent in room Problem: Adult Inpatient Plan of Care Goal: Plan of Care Review Description: The Plan of Care Review/Shift note should be completed every shift. The Outcome Evaluation is a brief statement about your assessment that the patient is improving, declining, or no change. This information will be displayed automatically on your shift note. 09/05/2023 1256 by Chelsea Heath RN Outcome: Met Flowsheets (Taken 09/05/20231255) Outcome Evaluation: a/o x4. C/o abd and back pain, tylenol, flexaril, and lidocaide patch given. Overall Patient Progress: no change 09/05/2023 125 by Chelsea Heath RN Outcome: Progressing Flowsheets (Taken 09/05/20231254) Outcome Evaluation: a/o x4, c/o abd and back paiun, tylenol given. Independent in room Plan of Care Reviewed With: patient Overall Patient Progress: no change Goal: Patient-Specific Goal (Individualized) Description: You can add care plan individualizations to a care plan. Examples of Individualizationmight be: Parent requests to be called daily at 9am for status, I have a hard time hearing out of my right ear, or Do not touch me to wake me up as it startles me. 09/05/2023 1256 by Chelsea Heath RN Outcome: Met 09/05/2023 1255 by Chelsea Heath RN Outcome: Progressing Goal: Absence of Hospital-Acquired Illness or Injury 09/05/2023 1256 by Chelsea Heath RN Outcome: Met 09/05/2023 1255 by Chelsea Heath RN Outcome: Progressing Intervention: Identify and Manage Fall Risk Recent Flowsheet Documentation Taken 09/05/2023 0841 by Chelsea Heath RN Safety Promotion/Fall Prevention: assistive device/personal items within reach clutter free environment maintained increased rounding and observation nonskid shoes/slippers when out of bed room near nurse's station safety round/check completed room organization consistent Intervention: Prevent Skin Injury Recent Flowsheet Documentation Taken 09/05/2023 0841 by Chelsea Heath RN Body Position: position changed independently Device Skin Pressure Protection: tubing/devices free from skin contact Intervention: Prevent and Manage VTE (Venous Thromboembolism) Risk Recent Flowsheet Documentation Taken 09/05/2023 0841 by Chelsea Heath RN VTE Prevention/Management: SCDs (sequential compression devices) off Intervention: Prevent Infection Recent Flowsheet Documentation Taken 09/05/2023 0841 by Chelsea Heath RN Infection Prevention: equipment surfaces disinfected hand hygiene promoted personal protective equipment utilized rest/sleep promoted single patient room provided Goal: Optimal Comfort and Wellbeing 09/05/2023 1256 by Chelsea Heath RN Outcome: Met 09/05/2023 1255 by Chelsea Heath RN Outcome: Progressing Intervention: Monitor Pain and Promote Comfort Recent Flowsheet Documentation Taken 09/05/2023 0935 by Chelsea Heath RN Pain Management Interventions: medication (see MAR) Taken 09/05/2023 0835 by Chelsea Heath RN Pain Management Interventions: medication (see MAR) Goal: Readiness for Transition of Care 09/05/2023 1256 by Chelsea Heath RN Outcome: Met 09/05/2023 1255 by Chelsea Heath RN Outcome: Progressing Problem: Pain Acute Goal: Optimal Pain Control and Function 09/05/2023 1256 by Chelsea Heath RN Outcome: Met 09/05/2023 1255 by Chelsea Heath RN Outcome: Progressing Intervention: Develop Pain Management Plan Recent Flowsheet Documentation Taken 09/05/2023 0935 by Chelsea Heath RN Pain Management Interventions: medication (see MAR) Taken 09/05/2023 0835 by Chelesa Heath RN Pain Management Interventions: medication (see MAR) Intervention: Prevent or Manage Pain Recent Flowsheet Documentation Taken 09/05/2023 0841 by Chelsea Heath RN Medication Review/Management: medications reviewed Intervention: Optimize Psychosocial Wellbeing Recent Flowsheet Documentation Taken 09/05/2023 0841 by Chelsea Heath RN Supportive Measures: active listening utilized counseling provided decision-making supported goal-setting facilitated positive reinforcement provided self-care encouraged self-reflection promoted self-responsibility promoted verbalization of feelings encouraged Problem: Comorbidity Management Goal: Blood Pressure in Desired Range 09/05/2023 1256 by Chelsea Heath RN Outcome: Met 09/05/2023 1255 by Chelsea Heath RN Outcome: Progressing Intervention: Maintain Blood Pressure Management Recent Flowsheet Documentation Taken 09/05/2023 0841 by Chelsea Heath RN Medication Review/Management: medications reviewed * Plan of Care - Chelsea Heath RN - 09/05/2023 8:30 AM CDT PRIMARY DIAGNOSIS: ACUTE PAIN OUTPATIENT/OBSERVATION GOALS TO BE MET BEFORE DISCHARGE: 1. Pain Status: Improved-controlled with oral pain medications. 2. Return to near baseline physical activity: Yes 3. Cleared for discharge by consultants (if involved): Yes Steam Trap Worker Nurse Safe discharge environment identified: Yes Barriers to discharge: No Entered by: Chelsea Heath RN 09/05/2023 12:56 PM Please review provider order for any additional goals. Nurse to notify provider when observation goals have been met and patient is ready for discharge. Plan of Care Reviewed With: patient Overall Patient Progress: no changeOverall Patient Progress: no change Outcome Evaluation: a/o x4, c/o abd and back paiun, tylenol given. Independent in room Problem: Adult Inpatient Plan of Care Goal: Plan of Care Review Description: The Plan of Care Review/Shift note should be completed every shift. The Outcome Evaluation is a brief statement about your assessment that the patient is improving, declining, or no change. This information will be displayed automatically on your shift note. Outcome: Progressing Flowsheets (Taken 09/05/2023 1255) Outcome Evaluation: a/o x4, c/o abd and back paiun, tylenol given. Independent in room Plan of Care Reviewed With: patient Overall Patient Progress: no change Goal: Patient-Specific Goal (Individualized) Description: You can add care plan individualizations to a care plan. Examples of Individualizationmight be: Parent requests to be called daily at 9am for status, I have a hard time hearing out of my right ear, or Do not touch me to wake me up as it startles me. Outcome: Progressing Goal: Absence of Hospital-Acquired Illness or Injury Outcome: Progressing Intervention: Identify and Manage Fall Risk Recent Flowsheet Documentation Taken 09/05/2023840 by Chelsea Heath RN Safety Promotion/Fall Prevention: assistive device/personal items within reach clutter free environment maintained increased rounding and observation nonskid shoes/slippers when out of bed room near nurse's station safety round/check completed room organization consistent Intervention: Prevent Skin Injury Recent Flowsheet Documentation Taken 09/05/2023840 by Chelsea Heath RN Body Position: position changed independently Device Skin Pressure Protection: tubing/devices free from skin contact Intervention: Prevent and Manage VTE (Venous Thromboembolism) Risk Recent Flowsheet Documentation Taken 09/05/2023840 by Chelsea Heath RN VTE Prevention/Management: SCDs (sequential compression devices) off Intervention: Prevent Infection Recent Flowsheet Documentation Taken 09/05/2023840 by Chelsea Heath RN Infection Prevention: equipment surfaces disinfected hand hygiene promoted personal protective equipment utilized rest/sleep promoted single patient room provided Goal: Optimal Comfort and Wellbeing Outcome: Progressing Intervention: Monitor Pain and Promote Comfort Recent Flowsheet Documentation Taken 09/05/2023934 by Chelsea Heath RN Pain Management Interventions: medication (see MAR) Taken 09/05/2023834 by Chelsea Heath RN Pain Management Interventions: medication (see MAR) Goal: Readiness for Transition of Care Outcome: Progressing Problem: Pain Acute Goal: Optimal Pain Control and Function Outcome: Progressing Intervention: Develop Pain Management Plan Recent Flowsheet Documentation Taken 09/05/2023934 by Chelsea Heath RN Pain Management Interventions: medication (see MAR) Taken 09/05/2023834 by Chelsea Heath RN Pain Management Interventions: medication (see MAR) Intervention: Prevent or Manage Pain Recent Flowsheet Documentation Taken 09/05/2023840 by Chelsea Heath RN Medication Review/Management: medications reviewed Intervention: Optimize Psychosocial Wellbeing Recent Flowsheet Documentation Taken 09/05/2023 0841 by Chelsea Heath RN Supportive Measures: active listening utilized counseling provided decision-making supported goal-setting facilitated positive reinforcement provided self-care encouraged self-reflection promoted self-responsibility promoted verbalization of feelings encouraged Problem: Comorbidity Management Goal: Blood Pressure in Desired Range Outcome: Progressing Intervention: Maintain Blood Pressure Management Recent Flowsheet Documentation Taken 09/05/2023 0841 by Chelsea Heath RN Medication Review/Management: medications reviewed * Plan of Care - Sloane Mar RN - 09/05/2023 5:20 AM CDT Goal Outcome Evaluation: PRIMARY DIAGNOSIS: EPIGASTRIC PAIN OUTPATIENT/OBSERVATION GOALS TO BE MET BEFORE DISCHARGE: 1. Pain Status: Improved-controlled with oral pain medications. 2. Return to near baseline physical activity: No 3. Cleared for discharge by consultants (if involved): No Steam Trap Worker Nurse Safe discharge environment identified: Yes Barriers to discharge: Yes Entered by: Sloane Mar RN 09/05/2023 BP (!) 164/80 (BP Location: Left arm) Pulse 63 Temp 97.8 ??F (36.6 ??C) (Oral) Resp 16 Ht 1.575 m (5' 2) Wt 64 kg (141 lb 1.5 oz) SpO2 94% BMI 25.81 kg/m?? Alert & oriented, VSS. Up independently in room.C/o pain to RUQ. TYlenol and icepack given and provided some relief.No IV access and pt did not wish to have one tonight.Refused lidocaine patch..No stool sample tonight. Overall Patient Progress: improving Please review provider order for any additional goals. Nurse to notify provider when observation goals have been met and patient is ready for discharge. * Plan of Care - Sloane Mar RN - 09/05/2023 12:13 AM CDT Goal Outcome Evaluation: PRIMARY DIAGNOSIS: EPIGASTRIC PAIN OUTPATIENT/OBSERVATION GOALS TO BE MET BEFORE DISCHARGE: 1. Pain Status: Improved-controlled with oral pain medications. 2. Return to near baseline physical activity: No 3. Cleared for discharge by consultants (if involved): No Steam Trap Worker Nurse Safe discharge environment identified: Yes Barriers to discharge: Yes Entered by: Sloane Mar RN 09/05/2023 BP (!) 164/80 (BP Location: Left arm) Pulse 63 Temp 97.8 ??F (36.6 ??C) (Oral) Resp 16 Ht 1.575 m (5' 2) Wt 64 kg (141 lb 1.5 oz) SpO2 94% BMI 25.81 kg/m?? Alert & oriented, VSS. Up independently in room.Refused lidocaine patch..No stool sample tonight. Overall Patient Progress: improving Please review provider order for any additional goals. Nurse to notify provider when observation goals have been met and patient is ready for discharge. * Plan of Care - Sloane Mar RN - 09/04/2023 8:24 PM CDT Goal Outcome Evaluation: PRIMARY DIAGNOSIS: EPIGASTRIC PAIN OUTPATIENT/OBSERVATION GOALS TO BE MET BEFORE DISCHARGE: 1. Pain Status: Improved-controlled with oral pain medications. 2. Return to near baseline physical activity: No 3. Cleared for discharge by consultants (if involved): No Steam Trap Worker Nurse Safe discharge environment identified: Yes Barriers to discharge: Yes Entered by: Sloane Mar RN 09/04/2023 BP (!) 147/81 (BP Location: Left arm) Pulse 67 Temp 98.3 ??F (36.8 ??C) (Oral) Resp 16 Ht 1.575 m (5' 2) Wt 64 kg (141 lb 1.5 oz) SpO2 95% BMI 25.81 kg/m?? Overall Patient Progress: improving Please review provider order for any additional goals. Nurse to notify provider when observation goals have been met and patient is ready for discharge. * Plan of Care - Dorina Shannon RN - 09/04/2023 6:34 PM CDT Goal Outcome Evaluation: Plan of Care Reviewed With: patient PRIMARY DIAGNOSIS: ACUTE PAIN OUTPATIENT/OBSERVATION GOALS TO BE MET BEFORE DISCHARGE: 1. Pain Status: Still having a lot of pain but not wanting to take much for pain medications 2. Return to near baseline physical activity: No 3. Cleared for discharge by consultants (if involved): No Steam Trap Worker Nurse Safe discharge environment identified: Yes Barriers to discharge: Yes Entered by: Dorina Shannon RN 09/04/2023 The patient remains alert and oriented x4 and call light appropriate. EGD came back clear for patient but she is still reporting a lot of pain. Staying the night. PRN tylenol given for pain. Patient anxious. Vitally stable on room air. Please review provider order for any additional goals. Nurse to notify provider when observation goals have been met and patient is ready for discharge. Problem: Adult Inpatient Plan of Care Goal: Plan of Care Review Description: The Plan of Care Review/Shift note should be completed every shift. The Outcome Evaluation is a brief statement about your assessment that the patient is improving, declining, or no change. This information will be displayed automatically on your shift note. 09/04/20231738 by Dorina Shannon RN Outcome: Progressing Flowsheets (Taken 09/04/2023 173) Plan of Care Reviewed With: patient 09/04/2023 1736 by Dorina Shannon RN Outcome: Progressing Flowsheets (Taken 09/04/2023 1736) Plan of Care Reviewed With: patient 09/04/2023 1207 by Dorina Shannon RN Outcome: Progressing Flowsheets (Taken 09/04/2023 1207) Plan of Care Reviewed With: patient Goal: Patient-Specific Goal (Individualized) Description: You can add care plan individualizations to a care plan. Examples of Individualizationmight be: Parent requests to be called daily at 9am for status, I have a hard time hearing out of my right ear, or Do not touch me to wake me up as it startles me. 09/04/20231738 by Dorina Shannon RN Outcome: Progressing 09/04/2023 1736 by Dorina Shannon RN Outcome: Progressing 09/04/2023 1207 by Dorina Shannon RN Outcome: Progressing Goal: Absence of Hospital-Acquired Illness or Injury 09/04/2023 173 by Dorina Shannon RN Outcome: Progressing 09/04/2023 1736 by Dorina Shannon RN Outcome: Progressing 09/04/2023 1207 by Dorina Shannon RN Outcome: Progressing Intervention: Identify and Manage Fall Risk Recent Flowsheet Documentation Taken 09/04/2023 1612 by Dorina Shannon RN Safety Promotion/Fall Prevention: activity supervised Taken 09/04/2023 0751 by Dorina Shannon RN Safety Promotion/Fall Prevention: activity supervised Intervention: Prevent and Manage VTE (Venous Thromboembolism) Risk Recent Flowsheet Documentation Taken 09/04/2023 1612 by Dorina Shannon RN VTE Prevention/Management: SCDs (sequential compression devices) off Taken 09/04/2023 0751 by Dorina Shannon RN VTE Prevention/Management: SCDs (sequential compression devices) off Goal: Optimal Comfort and Wellbeing 09/04/2023 173 by Dorina Shannon RN Outcome: Progressing 09/04/2023 173 by Dorina Shannon RN Outcome: Progressing 09/04/2023 1207 by Dorina Shannon RN Outcome: Progressing Intervention: Monitor Pain and Promote Comfort Recent Flowsheet Documentation Taken 09/04/2023 0751 by Dorina Shannon RN Pain Management Interventions: (refusing pain medications) repositioned relaxation techniques promoted other (see comments) Goal: Readiness for Transition of Care 09/04/2023 173 by Dorina Shannon RN Outcome: Progressing 09/04/2023 173 by Dorina Shannon RN Outcome: Progressing 09/04/2023 1207 by Dorina Shannon RN Outcome: Progressing Problem: Pain Acute Goal: Optimal Pain Control and Function 09/04/20231738 by Dorina Shannon RN Outcome: Progressing 09/04/2023 1736 by Dorina Shannon RN Outcome: Progressing 09/04/2023 1207 by Dorina Shannon RN Outcome: Not Progressing Intervention: Develop Pain Management Plan Recent Flowsheet Documentation Taken 09/04/2023 0751 by Dorina Shannon RN Pain Management Interventions: (refusing pain medications) repositioned relaxation techniques promoted other (see comments) Intervention: Prevent or Manage Pain Recent Flowsheet Documentation Taken 09/04/2023 1612 by Dorina Shannon RN Medication Review/Management: medications reviewed Taken 09/04/2023 0751 by Dorina Shannon RN Medication Review/Management: medications reviewed Problem: Comorbidity Management Goal: Blood Pressure in Desired Range 09/04/2023 1739 by Dorina Shannon RN Outcome: Progressing 09/04/2023 1736 by Dorina Shannon RN Outcome: Progressing 09/04/2023 1207 by Dorina Shannon RN Outcome: Progressing Intervention: Maintain Blood Pressure Management Recent Flowsheet Documentation Taken 09/04/2023 1612 by Dorina Shannon RN Medication Review/Management: medications reviewed Taken 09/04/2023 0751 by Dorina Shannon RN Medication Review/Management: medications reviewed * Plan of Care - Dorina Shannon RN - 09/04/2023 3:30 PM CDT Goal Outcome Evaluation: Plan of Care Reviewed With: patient PRIMARY DIAGNOSIS: ACUTE PAIN OUTPATIENT/OBSERVATION GOALS TO BE MET BEFORE DISCHARGE: 1. Pain Status: No improvement reported by patient. Patient hesitant to take pain medications. 2. Return to near baseline physical activity: No 3. Cleared for discharge by consultants (if involved): No Steam Trap Worker Nurse Safe discharge environment identified: Yes Barriers to discharge: Yes Entered by: Dorina Shannon RN 09/04/2023 The patient remains alert and oriented x4 and call light appropriate. NPO for first half due to EGD. Now on regular diet and was able to tolerate food okay. PRN tylenol given for pain. Patient anxious. Vitally stable on room air. Please review provider order for any additional goals. Nurse to notify provider when observation goals have been met and patient is ready for discharge. Problem: Adult Inpatient Plan of Care Goal: Plan of Care Review Description: The Plan of Care Review/Shift note should be completed every shift. The Outcome Evaluation is a brief statement about your assessment that the patient is improving, declining, or no change. This information will be displayed automatically on your shift note. 09/04/20231735 by Dorina Shannon RN Outcome: Progressing Flowsheets (Taken 09/04/2023 173) Plan of Care Reviewed With: patient 09/04/2023 1207 by Dorina Shannon RN Outcome: Progressing Flowsheets (Taken 09/04/2023 1207) Plan of Care Reviewed With: patient Goal: Patient-Specific Goal (Individualized) Description: You can add care plan individualizations to a care plan. Examples of Individualizationmight be: Parent requests to be called daily at 9am for status, I have a hard time hearing out of my right ear, or Do not touch me to wake me up as it startles me. 09/04/20231735 by Dorina Shannon RN Outcome: Progressing 09/04/20231206 by Dorina Shannon RN Outcome: Progressing Goal: Absence of Hospital-Acquired Illness or Injury 09/04/20231735 by Dorina Shannon RN Outcome: Progressing 09/04/20231206 by Dorina Shannon RN Outcome: Progressing Intervention: Identify and Manage Fall Risk Recent Flowsheet Documentation Taken 09/04/20231611 by Dorina Shannon RN Safety Promotion/Fall Prevention: activity supervised Taken 09/04/2023 075 by Dorina Shannon RN Safety Promotion/Fall Prevention: activity supervised Intervention: Prevent and Manage VTE (Venous Thromboembolism) Risk Recent Flowsheet Documentation Taken 09/04/2023 161 by Dorina Shannon RN VTE Prevention/Management: SCDs (sequential compression devices) off Taken 09/04/2023 075 by Dorina Shannon RN VTE Prevention/Management: SCDs (sequential compression devices) off Goal: Optimal Comfort and Wellbeing 09/04/20231735 by Dorina Shannon RN Outcome: Progressing 09/04/2023 120 by Dorina Shannon RN Outcome: Progressing Intervention: Monitor Pain and Promote Comfort Recent Flowsheet Documentation Taken 09/04/2023 075 by Dorina Shannon RN Pain Management Interventions: (refusing pain medications) repositioned relaxation techniques promoted other (see comments) Goal: Readiness for Transition of Care 09/04/2023 1736 by Dorina Shannon RN Outcome: Progressing 09/04/2023 1207 by Dorina Shannon RN Outcome: Progressing Problem: Pain Acute Goal: Optimal Pain Control and Function 09/04/2023 173 by Dorina Shannon RN Outcome: Progressing 09/04/2023 1207 by Dorina Shannon RN Outcome: Not Progressing Intervention: Develop Pain Management Plan Recent Flowsheet Documentation Taken 09/04/2023 0751 by Dorina Shannon RN Pain Management Interventions: (refusing pain medications) repositioned relaxation techniques promoted other (see comments) Intervention: Prevent or Manage Pain Recent Flowsheet Documentation Taken 09/04/2023 1612 by Dorina Shannon RN Medication Review/Management: medications reviewed Taken 09/04/2023 0751 by Dorina Shannon RN Medication Review/Management: medications reviewed Problem: Comorbidity Management Goal: Blood Pressure in Desired Range 09/04/20231735 by Dorina Shannon RN Outcome: Progressing 09/04/2023 1207 by Dorina Shannon RN Outcome: Progressing Intervention: Maintain Blood Pressure Management Recent Flowsheet Documentation Taken 09/04/2023 1612 by Dorina Shannon RN Medication Review/Management: medications reviewed Taken 09/04/2023 0751 by Dorina Shannon RN Medication Review/Management: medications reviewed * Pre-Procedure - Larissa Fox MD - 09/04/2023 2:36 PM CDT INPATIENT PRE-PROCEDURE NOTE CHIEF COMPLAINT / REASON FOR PROCEDURE: abdominal pain Admission History and Physical Reviewed, including past medical history, social history family history, ROS, and interval progress notes: on chart-<30 days old; updated within 7 days. PRE-SEDATION ASSESSMENT: Lung Exam: normal Heart Exam: normal Airway Exam: Normal Previous reaction to anesthesia/sedation: NO Sedation plan based on assessment:Moderate (conscious) sedation ASA Classification: 2 - Mild systemic disease IMPRESSION: abdominal pain PLAN: EGD Larissa Fox MD * Plan of Care - Dorina Shannon RN - 09/04/2023 12:07 PM CDT Goal Outcome Evaluation: Plan of Care Reviewed With: patient The patient remains alert and oriented x4 and call light appropriate. Reporting a lot of abdominal pain/discomfort this am. Did not want any pain medications, so utilized heat pack and repositioning.Ambulates independently in room. Refusing IV fluids due to reporting it makes her feel worse. PRN anxiety medication given. Vitally stable on room air. Problem: Pain Acute Goal: Optimal Pain Control and Function Outcome: Not Progressing Intervention: Develop Pain Management Plan Recent Flowsheet Documentation Taken 09/04/2023750 by Dorina Shannon RN Pain Management Interventions: (refusing pain medications) repositioned relaxation techniques promoted other (see comments) Intervention: Prevent or Manage Pain Recent Flowsheet Documentation Taken 09/04/2023750 by Dorina Shannon RN Medication Review/Management: medications reviewed Problem: Adult Inpatient Plan of Care Goal: Plan of Care Review Description: The Plan of Care Review/Shift note should be completed every shift. The Outcome Evaluation is a brief statement about your assessment that the patient is improving, declining, or no change. This information will be displayed automatically on your shift note. Outcome: Progressing Flowsheets (Taken 09/04/2023 1207) Plan of Care Reviewed With: patient Goal: Patient-Specific Goal (Individualized) Description: You can add care plan individualizations to a care plan. Examples of Individualizationmight be: Parent requests to be called daily at 9am for status, I have a hard time hearing out of my right ear, or Do not touch me to wake me up as it startles me. Outcome: Progressing Goal: Absence of Hospital-Acquired Illness or Injury Outcome: Progressing Intervention: Identify and Manage Fall Risk Recent Flowsheet Documentation Taken 09/04/2023750 by Dorina Shannon RN Safety Promotion/Fall Prevention: activity supervised Intervention: Prevent and Manage VTE (Venous Thromboembolism) Risk Recent Flowsheet Documentation Taken 09/04/2023750 by Dorina Shannon RN VTE Prevention/Management: SCDs (sequential compression devices) off Goal: Optimal Comfort and Wellbeing Outcome: Progressing Intervention: Monitor Pain and Promote Comfort Recent Flowsheet Documentation Taken 09/04/2023750 by Dorina Shannon RN Pain Management Interventions: (refusing pain medications) repositioned relaxation techniques promoted other (see comments) Goal: Readiness for Transition of Care Outcome: Progressing Problem: Comorbidity Management Goal: Blood Pressure in Desired Range Outcome: Progressing Intervention: Maintain Blood Pressure Management Recent Flowsheet Documentation Taken 09/04/2023750 by Dorina Shannon RN Medication Review/Management: medications reviewed * Plan of Care - Caryn Flor RN - 09/04/2023 7:00 AM CDT PRIMARY DIAGNOSIS: ACUTE PAIN OUTPATIENT/OBSERVATION GOALS TO BE MET BEFORE DISCHARGE: 1. Pain Status: Improved with use of alternative comfort measures i.e.: Rest, quiet environment, cares bundled. 2. Return to near baseline physical activity: Yes 3. 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 VSS, besides hypertensive. RA. Up w/ SBA. Paged MD for PRN meclizine-- given, per pt report, effective. NPO for endoscopy-- GI following. Cont NS paused per pt request-- MD aware. Pt rating pain 6/10 at this time to RUQ of abd-- but declining pain medications-- states it is tolerable for now. Pt resting b/t cares and able to make needs known. Please review provider order for any additional goals. Nurse to notify provider when observation goals have been met and patient is ready for discharge. Goal Outcome Evaluation: Plan of Care Reviewed With: patient Overall Patient Progress: improvingOverall Patient Progress: improving Outcome Evaluation: Per pt, pain tolerable. NPO for GI. Problem: Adult Inpatient Plan of Care Goal: Plan of Care Review Description: The Plan of Care Review/Shift note should be completed every shift. The Outcome Evaluation is a brief statement about your assessment that the patient is improving, declining, or no change. This information will be displayed automatically on your shift note. Outcome: Progressing Flowsheets (Taken 09/04/2023 0325) Outcome Evaluation: Per pt, pain tolerable. NPO for GI. Plan of Care Reviewed With: patient Overall Patient Progress: improving Goal: Patient-Specific Goal (Individualized) Description: You can add care plan individualizations to a care plan. Examples of Individualizationmight be: Parent requests to be called daily at 9am for status, I have a hard time hearing out of my right ear, or Do not touch me to wake me up as it startles me. Outcome: Progressing Goal: Absence of Hospital-Acquired Illness or Injury Outcome: Progressing Goal: Optimal Comfort and Wellbeing Outcome: Progressing Goal: Readiness for Transition of Care Outcome: Progressing * Plan of Care - Caryn Flor RN - 09/04/2023 2:00 AM CDT PRIMARY DIAGNOSIS: ACUTE PAIN OUTPATIENT/OBSERVATION GOALS TO BE MET BEFORE DISCHARGE: 1. Pain Status: Improved with use of alternative comfort measures i.e.: Rest, quiet environment, cares bundled. 2. Return to near baseline physical activity: Yes 3. 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 VSS, besides hypertensive. RA. Up w/ SBA. Paged MD for PRN meclizine-- given, per pt report, effective. NPO for endoscopy-- GI following. Cont NS paused per pt request-- MD aware. Pt rating pain 7/10 to RUQ of abd-- but declining pain medications. Pt resting b/t cares and able to make needs known. Please review provider order for any additional goals. Nurse to notify provider when observation goals have been met and patient is ready for discharge. Goal Outcome Evaluation: Plan of Care Reviewed With: patient Overall Patient Progress: improvingOverall Patient Progress: improving Outcome Evaluation: Per pt, pain tolerable. NPO for GI. Problem: Adult Inpatient Plan of Care Goal: Plan of Care Review Description: The Plan of Care Review/Shift note should be completed every shift. The Outcome Evaluation is a brief statement about your assessment that the patient is improving, declining, or no change. This information will be displayed automatically on your shift note. Outcome: Progressing Flowsheets (Taken 09/04/2023 0325) Outcome Evaluation: Per pt, pain tolerable. NPO for GI. Plan of Care Reviewed With: patient Overall Patient Progress: improving Goal: Patient-Specific Goal (Individualized) Description: You can add care plan individualizations to a care plan. Examples of Individualizationmight be: Parent requests to be called daily at 9am for status, I have a hard time hearing out of my right ear, or Do not touch me to wake me up as it startles me. Outcome: Progressing Goal: Absence of Hospital-Acquired Illness or Injury Outcome: Progressing Goal: Optimal Comfort and Wellbeing Outcome: Progressing Goal: Readiness for Transition of Care Outcome: Progressing * Plan of Care - Sadie Cespedes RN - 09/03/2023 9:35 PM CDT CARE FROM: 1620 - 2300 PRIMARY DIAGNOSIS: Abdominal/Juan Pain/Ovarian Cyst & HTN OUTPATIENT/OBSERVATION GOALS TO BE MET BEFORE DISCHARGE: 1. Pain Status: Improved-controlled with oral pain medications. 2. Return to near baseline physical activity: No 3. 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 Patient is a SBA, has been continent of bladder. Pt tolerating po meds, mild pain to RUQ. PIV to right hand infusing NS @ 100 ml/hr. Plan is patient to stay NPO after midnight for Endoscopy tomorrow. GI is following. Will continue to monitor. BP (!) 149/80 (BP Location: Right arm) Pulse 64 Temp 98.3 ??F (36.8 ??C) (Oral) Resp 18 Ht 1.575 m (5' 2) Wt 64 kg (141 lb 1.5 oz) SpO2 96% BMI 25.81 kg/m?? Please review provider order for any additional goals. Nurse to notify provider when observation goals have been met and patient is ready for discharge.Problem: Adult Inpatient Plan of Care Goal: Plan of Care Review Description: The Plan of Care Review/Shift note should be completed every shift. The Outcome Evaluation is a brief statement about your assessment that the patient is improving, declining, or no change. This information will be displayed automatically on your shift note. Outcome: Progressing Goal: Patient-Specific Goal (Individualized) Description: You can add care plan individualizations to a care plan. Examples of Individualizationmight be: Parent requests to be called daily at 9am for status, I have a hard time hearing out of my right ear, or Do not touch me to wake me up as it startles me. Outcome: Progressing Flowsheets (Taken 09/03/20231958) Anxieties, Fears or Concerns: none Goal: Absence of Hospital-Acquired Illness or Injury Outcome: Progressing Intervention: Identify and Manage Fall Risk Recent Flowsheet Documentation Taken 09/03/20232014 by Sadie Cespedes RN Safety Promotion/Fall Prevention: activity supervised clutter free environment maintained mobility aid in reach lighting adjusted nonskid shoes/slippers when out of bed Intervention: Prevent Skin Injury Recent Flowsheet Documentation Taken 09/03/20232014 by Sadie Cespedes RN Body Position: position changed independently Skin Protection: adhesive use limited Device Skin Pressure Protection: absorbent pad utilized/changed Intervention: Prevent and Manage VTE (Venous Thromboembolism) Risk Recent Flowsheet Documentation Taken 09/03/20232014 by Sadie Cespedes RN VTE Prevention/Management: SCDs (sequential compression devices) off Goal: Optimal Comfort and Wellbeing Outcome: Progressing Goal: Readiness for Transition of Care Outcome: Progressing Intervention: Mutually Develop Transition Plan Recent Flowsheet Documentation Taken 09/03/20231958 by Sadie Cespedes RN Patient/Family Anticipates Transition to: home Goal Outcome Evaluation: * Pharmacy-Admission Medication History - Amandeep Woody [facility] - 09/03/2023 7:58 PM CDT Pharmacist Admission Medication History Admission medication history is complete. The information provided in this note is only as accurateas the sources available at the time of the update. Information Source(s): Patient and CareEverywhere/SureScripts via in-person Pertinent Information: Miya said she was taken off rosuvastatin due to adverse effects during a recent, prior hospital visit. She has been taking sucralfate but did not find it very effective. She has concerns about the daily aspirin potentially contributing to her side pains. Miya confirmed she was started on a low dose of metoprolol despite it being listed on her allergy list. Vocera page to Dr. Lugo at 2001 Changes made to [employer]ASTEW[employer] T[employer]ATMENT ENGINEER medication list: Added: alprazolam, nitroglycerin, aspirin, vitamin D Deleted: clopidogrel (not taking), rosuvastatin (discontinued due to adverse effects) Changed: telmisartan (changed from 10 mg daily to 20 mg twice daily) Allergies reviewed with patient and updates made in EHR: yes Medication History Completed By: Amandeep Woody RPH 09/03/2023 7:59 PM [employer]ATMENT ENGINEER Med List Medication Sig Last Dose ALPRAZolam (XANAX) 0.25 MG tablet Take 0.125 mg by mouth 3 times daily as needed for anxiety 09/03/2023 at 0800 aspirin (ASA) 81 MG chewable tablet Take 81 mg by mouth daily 09/02/2023 at AM metoprolol tartrate (LOPRESSOR) 25 MG tablet Take 6.25 mg by mouth 2 times daily 09/03/2023 at 0800 nitroGLYcerin (NITROSTAT) 0.[address] 0.4 mg under the tongue every 5 minutes asneeded for chest pain For chest pain place 1 tablet under the tongue every 5 minutes for 3 doses. If symptoms persist 5 minutes after 1st dose call 911. 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 Patient has been oriented to the observation room, bathroom and call light is in place. Discussed discharge goals and expectations with patient/family. Yes documented in this encounter Plan of Treatment Upcoming Encounters Date Type Department Care Team (Late st Contact Info) Description 09/19/2023 2:15 PM CDT Therapy Visit [address] [phone] Ibeth Ellison MD [address] [place] [address] [phone] Marquita Trivedi, JESSICA 09/19/2023 3:00 PM CDT Therapy Visit [address] [phone] Ibeth Ellison MD [address] [place] [address] [phone] Gabriella Bailey, OTR [address] [address] 09/21/2023 2:15 PM CDT Therapy Visit [address] [phone] Ibeth Ellison MD [address] [place] [address] [phone] Marquita Trivedi, PT 09/21/2023 3:45 PM CDT Therapy Visit [address] [phone] Ibeth Ellison MD [address] [place] [address] [phone] Dylan Mccann, OT 09/26/2023 9:45 AM CDT Therapy Visit [address] [phone] Ibeth Ellison MD [address] [place] [address] [phone] Maura Javier, PT [address] [phone] 09/26/2023 11:00 AM CDT Therapy Visit [address] [phone] Ibeth Ellison MD [address] [place] [address] [phone] Gabriella Bailey, OTR [address] [address] 09/28/2023 10:30 AM CDT Therapy Visit [address] [phone] Ibeth Ellison MD [address] [place] [address] [phone] Maura Javier, PT [address] [phone] 09/28/2023 11:30 AM CDT Therapy Visit [address] [phone] Ibeth Ellison MD [address] [place] [address] [phone] Dylan Mccann, OT 10/03/2023 9:30 AM CDT Therapy Visit [address] [phone] Ibeth Ellison MD [address] [place] [address] [phone] Gabriella Bailey, OTR [address] [address] 10/03/2023 10:30 AM CDT Therapy Visit [address] [phone] Ibeth Ellison MD [address] [place] [address] [phone] Marquita Trivedi, PT 10/05/2023 9:45 AM CDT Therapy Visit [address] [phone] Ibeth Ellison MD [address] [place] [address] [phone] Maura Javier Ap, PT [address] [phone] 10/05/2023 10:45 AM CDT Therapy Visit [address] [phone] Ibeth Ellison MD [address] [place] [address] [phone] Dylan Mccann, OT 10/10/2023 9:30 AM CDT Therapy Visit [address] [phone] Ibeth Ellison MD [address] [place] [address] [phone] Gabriella Bailey, OTR [address] [address] 10/10/2023 10:30 AM CDT Therapy Visit [address] [phone] Ibeth Ellison MD [address] [place] [address] [phone] Marquita Trivedi, PT 10/12/2023 9:45 AM CDT Therapy Visit [address] [phone] Ibeth Ellison MD [address] [place] [address] [phone] Maura Javier Ap, PT [address] [phone] 10/12/2023 10:45 AM CDT Therapy Visit [address] [phone] Ibeth Ellison MD [address] [place] [address] [phone] Dylan Mccann, OT 10/17/2023 9:30 AM CDT Therapy Visit [facility] [address] [place] [address] Ibeth Ellison MD [address] [place] [address] [phone] Gabriella Bailey, OTR [facility] [address] [place] [address] 10/17/2023 10:30 AM CDT Therapy Visit [address] [phone] Ibeth Ellison MD [address] [place] [address] [phone] Marquita Trivedi, PT 10/19/2023 10:15 AM CDT Therapy Visit [address] [phone] Ibeth Ellison MD [address] [place] [address] [phone] Annamaria Dennison [address] [address] 10/19/2023 11:15 AM CDT Therapy Visit [address] [phone] Ibeth Ellison MD [address] [place] [address] [phone] Marquita Trivedi, PT 10/24/2023 12:15 PM CDT Therapy Visit [address] [phone] Ibeth Ellison MD [address] [place] [address] [phone] Maura Javier, PT [address] [place] [address] 10/26/2023 11:30 AM CDT Therapy Visit [address] [phone] Ibeth Ellison MD [address] [place] [address] [phone] Dylan Mccann, OT 10/26/2023 12:15 PM CDT Therapy Visit [address] [phone] Ibeth Ellison MD [address] [place] [address] [phone] Maura Javier, PT [address] [address] 10/31/2023 10:15 AM CDT Therapy Visit [address] [phone] Ibeth Ellison MD [address] [place] [address] [phone] Gabriella Bailey, OTR [address] [address] 10/31/2023 11:15 AM CDT Therapy Visit [address] [phone] Ibeth Ellison MD [address] [place] [address] [phone] Marquita Trivedi, PT 11/02/2023 10:00 AM CDT Therapy Visit [address] [phone] Ibeth Ellison MD [address] [place] [address] [phone] Dylan Mccann, OT 11/02/2023 11:15 AM CDT Therapy Visit [address] [phone] Ibeth Ellison MD [address] [place] [address] [phone] Marquita Trivedi, PT 11/07/2023 10:30 AM CDT Therapy Visit [address] [phone] Ibeth Ellison MD [address] [place] [address] [phone] Marquita Trivedi, PT 11/09/2023 10:30 AM CDT Therapy Visit [address] [phone] Ibeth Ellison MD [address] [place] [address] [phone] Marquita Trivedi, PT 11/14/2023 12:15 PM CDT Therapy Visit [address] [phone] Iebth Ellison MD [address] [place] [address] [phone] Maura Javier Ap, PT [address] [phone] 11/16/2023 10:30 AM CDT Therapy Visit [facility] [address] [place] [phone] Ibeth Ellison MD [address] [place] [address] Marquita Trivedi, PT documented as of this encounter Procedures Procedure Name Priority Date/Time Associated Diagnosis Comments SURGICAL PATHOLOGY EXAM Routine 09/04/2023 2:44 PM CDT UGI ENDOSCOPY DIAG W BIOPSY 09/04/2023 2:23 PM CDT Epigastric pain UPPER GI ENDOSCOPY Routine 09/04/2023 2: 18 PM CDT CBC WITH PLATELETS AND DIFFERENTIAL STAT 09/04/2023 5:41 AM CDT CBC WITH PLATELETS & DIFFERENTIAL STAT 09/04/2023 5:41 AM CDT BASIC METABOLIC PANEL Routine 09/04/2023 5:41 AM CDT CTA ABDOMEN PELVIS WITH CONTRAST STAT 09/03/2023 12:39 PM CDT EKG 12-LEAD, TRACING ONLY STAT 09/03/2023 11:14 AM CDT LACTIC ACID WHOLE BLOOD STAT 09/03/2023 11:10 AM CDT EXTRA TUBE STAT 09/03/2023 10:35 AM CDT EXTRA BLOOD BANK PURPLE TOP TUBE STAT 09/03/2023 10:35 AM CDT EXTRA BLOOD BANK PURPLE TOP TUBE STAT 09/03/2023 10:35 AM CDT EXTRA PURPLE TOP TUBE STAT 09/03/2023 10:35 AM CDT EXTRA GREEN TOP (LITHIUM HEPARIN) TUBE STAT 09/03/2023 10:35 AM CDT EXTRA BLUE TOP TUBE STAT 09/03/2023 1 0:35 AM CDT CBC WITH PLATELETS AND DIFFERENTIAL STAT 09/03/2023 10:35 AM CDT TROPONIN T, HIGH SENSITIVITY STAT 09/03/2023 10:35 AM CDT CBC WITH PLATELETS & DIFFERENTIAL STAT 09/03/2023 10:35 AM CDT LIPASE STAT 09/03/2023 10:35 AM CDT COMPREHENSIVE METABOLIC PANEL STAT 09/03/2023 10:35 AM CDT documented in this encounter Results * Surgical Pathology Exam (09/04/2023 2:44 PM CDT) Case Report Surgical Pathology Report ? Case: [id number] ? Authorizing Provider: ??Larissa Fox MD ?Collected: ? 09/04/2023 02:44 PM ? Ordering Location: ? [facility] ?Received: ?09/04/2023 03:00 PM ? [facility] [place] ? Pathologist: ? Keira Torres, ? MD ? Specimens: ?? A) - Small Intestine, Duodenum, duodenum biopsies ? B) - Stomach, stomach biopsies; evaluate for h pylori etc ? 09/06/2023 10:18 AM [facility] Final Diagnosis A: Small intestine, duodenum, biopsies: -Normal small intestinal mucosa without evidence of untreated sprue, peptic duodenitis or other microscopic alteration B: Stomach, biopsies: -Mildly active, chronic gastritis with reactive epithelial changes, special stain for Helicobacter pylori-like organisms performed and negative -No evidence of intestinal metaplasia, dysplasia or malignancy 09/06/2023 10:18 AM [facility] Comment The gastric sample shows mildly active, chronic gastritis, as described and the special stain for Helicobacter pylori-like organisms is negative. Ancillary testing for Helicobacter may be considered as a negative special stain does not entirely rule out Helicobacter infection. In the absence of an infectious etiology, the findings would suggest irritant reaction. Please correlate clinically. 09/06/2023 10:18 AM [facility] Clinical Information Procedure: Esophagoscopy, gastroscopy, [...] component of this testing was completed at [facility]. Stain controls for all stains [...] CDT Larissa GARNICA - [facility]ATH[facility]STEIN LAB[facility]AT[facility] [address] 1[address], [address] [place] [address], [place] [phone] LABORATORY [facility] [address] [facility] (1st floor, no room number) [place] [address], [place] * UPPER GI ENDOSCOPY (09/04/2023 2:18 PM CDT) [facility] Upper GI Endoscopy [facility] Patient Name: Miya Restrepo ?Procedure Date: 09/04/2023 [...] ?Olympus Gastroscope, Model # GIF-H190, Censitrac # ?[id number] was introduced through the mouth, and ?advanced [...] Note Initiated On: 09/04/2023 2:18 PM MRN: ?[id number] Procedure Date: ? 09/04/2023 2:18:56 PM Total Procedure Duration: 0 hours 7 minutes 21 seconds Estimated Blood Loss: ? Scope In: 2:39:40 PM Scope Out: 2:47:01 PM RADIOLOGY RESULTS 09/04/2023 2:18 PM CDT Larissa Fox MD PROCEDURES RADIOLOGY RESULTS * CBC with platelets and differential (09/04/2023 5:41 AM CDT) WBC Count 4.4 4.0 - 11.0 10e3/uL [...] MD LAB - BLOOD OR DERABLES LABORATORY [facility] [address] [facility] Lab (1st floor, no room number) [place] [address], [facility] * Basic metabolic panel (09/04/2023 5:41 AM CDT) Sodium 141 135 - 145 mmol/L 09/04/2023 [...] 09/04/2023 6:24 AM CDT LABORATORY Comment:eGFR calculated us2020 CKD-EPI equation. Calcium 9.4 8.8 - 10.2 mg/dL 09/04/2023 6:24 AM CDT LABORATORY Glucose 94 70 - 99 mg/dL 09/04/2023 6:24 AM CDT LABORATORY Blood STRUCTURE OF RIGHT HAND / Unknown Venipuncture / Unknown 09/04/2023 5:41 AM CDT 09/04/2023 6:00 AM CDT Judit Lugo MD LAB - BLOOD OR DERABLES LABORATORY [facility] [address] [facility]st [facility], no room number) [place] [address], [facility] * CTA Abdomen Pelvis with Contrast (09/03/2023 12:39 PM CDT) Anatomical Region Laterality Modality Abdomen/Pelvis, SUBRAD IR VT OCEDURE, UMP CT CTA, RAD CT Computed Tomography 09/03/2023 12:3 9 PM CDT Impressions 09/03/2023 1:19 PM CDT IMPRESSION: 1. ??No acute vascular abnormality. 2. ??A stable 4.7 cm left adnexal cyst. Recommend nonemergent pelvic ultrasound. Narrative 09/03/2023 1:19 PM CDT EXAM: CTA ABDOMEN PELVIS WITH CONTRAST LOCATION: [facility] DATE: 09/03/2023 INDICATION: severe abd pain, mostly RUQ. CT a couple weeks ago. now worse COMPARISON: 08/27/2023 TECHNIQUE: CT angiogram abdomen pelvis during arterial phase of injection of IV contrast. 2D and 3D MIP reconstructions were performed by the cardiovascular technologist. Dose reduction techniques were used. CONTRAST: [...] EXAM: CTA ABDOMEN PELVIS WITH CONTRAST LOCATION: [facility] DATE: 09/03/2023 INDICATION: severe abd pain, [...] 12-lead, tracing only (09/03/2023 11:14 AM CDT) Systolic Blood Pressure mmHg RADIOLOGY RESULTS Diastolic Blood Pressure mmHg RADIOLOGY RESULTS Ventricular Rate 71 BPM RAD IOLOGY RESULTS Atrial Rate 71 BPM RADIOLOG Y RESULTS VT Interval 144 ms RADIOLOG Y RESULTS QRS Duration 86 ms RADIOLO GY RESULTS QT 372 ms RADIOLOGY RESULTS QTc 404 ms RADIOLOGY RESULTS P [place] 21 degrees RADIOLOGY RESULTS R AXIS 26 degrees RADIOLOGY RESULTS T [place] 39 degrees RADIOLOGY RESULTS Interpretation ECG Sinus [...] 11:10 AM CDT 09/03/2023 11:14 AM CDT Etsuardo Mayorga MD LAB - BLOOD ORDERABL ES LABORATORY [facility] [address] Lab (1st floor, no room number) [place] [address], [facility] * (ABNORMAL) CBC with platelets and differential (09/03/2023 10:35 AM CDT) [facility] Signature WBC Count 5.2 4.0 - 11.0 10e3/uL 09/03/2023 11:04 AM CDT [facility] RBC Count 5.58(H) 3.80 - 5.20 10e6/uL 09/03/2023 11:04 AM CDT [facility] Hemoglobin 16.3(H) 11.7 - 15.7 g/dL 09/03/2023 11:04 AM CDT [facility] Hematocrit 49.1(H) 35.0 - 47.0 % 09/03/2023 11:04 AM CDT [facility] MCV 88 78 - 100 fL 09/03/2023 11:04 AM CDT [facility] MCH 29.2 26.5 - 33.0 pg 09/03/2023 11:04 AM CDT [facility] MCHC 33.2 31.5 - 36.5 g/dL 09/03/2023 11:04 AM CDT [facility] RDW 13.2 10.0 - 15.0 % 09/03/2023 11:04 AM CDT [facility] Platelet Count 200 150 - 450 10e3/uL 09/03/2023 11:04 AM CDT [facility] % Neutrophils 60 % 09/03/2023 11:04 AM CDT [facility] % Lymphocytes 29 % 09/03/2023 11:04 AM CDT [facility] % Monocytes 8 % 09/03/2023 11:04 AM CDT [facility] % Eosinophils 2 % 09/03/2023 11:04 AM CDT [facility] % Basophils 0 % 09/03/2023 11:04 AM CDT [facility] % Immature Granulocytes 0 % 09/03/2023 11:04 AM CDT [facility] NRBCs per 100 WBC 0 <1 /100 024 11:04 AM CDT [facility] Absolute Neutrophils 3.1 1.6 - 8.3 10e3/uL 09/03/2023 11:04 AM CDT [facility] Absolute Lymphocytes 1.5 0.8 - 5.3 10e3/uL 09/03/2023 11:04 AM CDT [facility] Absolute Monocytes 0.4 0.0 - 1.3 10e3/uL 09/03/2023 11:04 AM CDT [facility] Absolute Eosinophils 0.1 0.0 - 0.7 10e3/uL 09/03/2023 11:04 AM CDT [facility] Absolute Basophils 0.0 0.0 - 0.2 10e3/uL 09/03/2023 11:04 AM CDT [facility] Absolute Immature Granulocytes 0.0 <=0.4 10e3/uL 09/03/2023 11:04 AM CDT [facility] Absolute NRBCs 0.0 10e3/uL 09/03/2023 11:04 AM CDT [facility] Blood VENOUS LINE / Unknown Venipuncture / Unknown 09/03/2023 10:35 AM CDT 09/03/2023 10:40 AM CDT Estuardo Mayorga MD LAB - BLOOD ORDERABL ES LABORATORY [facility] [address] [facility] Lab (1st floor, no room number) [place] [address] * Troponin T, High Sensitivity (09/03/2023 10:35 AM CDT) [facility] Troponin T, High Sensitivity 7 <=14 ng/L 09/03/2023 11:16 AM CDT [facility] Comment: Either a High Sensitivity Troponin [...] MD LAB - BLOOD ORDERABL ES LABORATORY [facility] [address] Lab (1st floor, no room number) [place] [address] * Lipase (09/03/2023 10:35 AM CDT) Lipase 37 13 - 60 U/L 09/03/2023 11:16 AM CDT [facility] Blood VENOUS LINE / Unknown Venipuncture / Unknown 09/03/2023 10:35 AM CDT 09/03/2023 10:40 AM CDT Estuardo Mayorga MD LAB - BLOOD ORDERABL ES Performing Organization Address City/[facility]/ZIP Co de Phone Number LABORATORY [facility] [address] Lab (1st floor, no room number) [place] [phone] * Comprehensive metabolic panel (09/03/2023 10:35 AM CDT) Sodium 141 135 - 145 mmol/L 09/03/2023 11:16 AM CDT [facility] Comment:Reference [...] - 5.3 mmol/L 09/03/2023 11:16 AM CDT [facility] Carbon Dioxide (CO2) 22 22 - 29 mmol/L 09/03/2023 11:16 AM CDT [facility] Anion Gap 15 7 - 15 mmol/L 09/03/2023 11:16 AM CDT [facility] Urea Nitrogen 11.9 8.0 - 23.0 mg/dL 09/03/2023 11:16 AM CDT [facility] Creatinine 0.61 0.51 - 0.95 mg/dL 09/03/2023 11:16 AM CDT [facility] GFR Estimate >90 >60 mL/min/1. 73m2 09/03/2023 11:16 AM CDT [facility] Comment:eGFR calculated usin g 2021 CKD-EPI equation. Calcium 10.0 8.8 - 10.2 [...] MD LAB - BLOOD ORDERABL ES LABORATORY [facility] [address] [facility] Lab (1st floor, no room number) [place] [address], [facility] * Extra Blood Bank Purple Top Tube (09/03/2023 10:35 AM CDT) [facility] Hold Specimen [facility] 09/03/2023 11:46 AM CDT [facility] LABORATORY Blood VENOUS LINE / Unknown Venipuncture / Unknown 09/03/2023 10:35 AM CDT 09/03/2023 10:40 AM CDT Estuardo Mayorga MD LAB - BLOOD ORDERABL ES [facility] [address] Lab (1st floor, no room number) [address] * Extra Blood Bank Purple Top Tube (09/03/2023 10:35 AM CDT) Hold Specimen [facility] 09/03/2023 11:46 AM CDT [facility] LABORATORY Blood VENOUS LINE / Unknown Venipuncture / Unknown 09/03/2023 10:35 AM CDT 09/03/2023 10:40 AM CDT Estuardo Mayorga MD LAB - BLOOD ORDERABL ES Performing Organization Address [facility]/ZIP Co de Phone Number [facility] [address] Lab (1st floor, no room number) [address] * Extra Purple Top Tube (09/03/2023 10:35 AM CDT) Hold Specimen [facility] 09/03/2023 11:46 AM CDT [facility] LABORATORY Blood VENOUS LINE / Unknown Venipuncture / Unknown 09/03/2023 10:35 AM CDT 09/03/2023 10:40 AM CDT Estuardo Mayorga MD LAB - BLOOD ORDERABL ES [facility] Lab [address] Lab (1st floor, no room number) [address] * Extra Green Top ([place] Heparin) Tube (09/03/2023 10:35 AM CDT) Hold Specimen [facility] 09/03/2023 11:46 AM CDT [facility] LABORATORY Blood VENOUS LINE / Unknown Venipuncture / Unknown 09/03/2023 10:35 AM CDT 09/03/2023 10:40 AM CDT Estuardo Mayorga MD LAB - BLOOD ORDERABL ES [facility] [address] Lab (1st floor, no room number) [place] [phone] [place] [address] * Extra Blue Top Tube (09/03/2023 10:35 AM CDT) Hold Specimen [facility] 09/03/2023 11:46 AM CDT LABORATORY Blood VENOUS LINE / Unknown Venipuncture / Unknown 09/03/2023 10:35 AM CDT 09/03/2023 10:40 AM CDT Estuardo Mayorga MD LAB - BLOOD ORDERABL ES [facility] [address] Lab (1st floor, no room number) [place] [phone] documented in this encounter Visit Diagnoses Diagnosis Right upper quadrant abdominal pain Abdominal pain, right upper quadrant Left ovarian cyst Other and unspecified ovarian cyst Benign essential hypertension Essential hypertension, benign Left ovarian cyst Other and unspecified ovarian cyst Right upper quadrant abdominal pain Abdominal pain, right upper quadrant Epigastric pain Abdominal pain, epigastric documented in this encounter Administered Medications Inactive Administered Medications - up to 3 most recent administrations Medication Order MAR Action Action Date Dose Rate Site acetaminophen (TYLENOL) Suppository 650 mg 650 mg, Rectal, EVERY 4 HOURS PRN, mild pain, other, and adjunct with moderate or severe pain or per patient request, Starting on 09/03/23 at 1716, Alternate with ibuprofen if ordered. Maximum acetaminophen dose from all sources = 75 mg/kg/day not to exceed 4 grams/day. acetaminophen (TYLENOL) tablet 650 mg 650 mg, Oral, EVERY 4 HOURS PRN, mild pain, other, and adjunct with moderate or severe pain or per patient request, Starting on 09/03/23 at 1716, Alternate with ibuprofen if ordered. Maximum acetaminophen dose from all sources = 75 mg/kg/day not to exceed 4 grams/day. $Given 09/05/2023 12:33 PM CDT 650 mg $Given 09/05/2023 8:35 AM CDT 650 mg $Given 09/04/2023 7:57 PM CDT 650 mg ALPRAZolam (XANAX) half-tab 0.125 mg 0.125 mg, Oral, 3 TIMES DAILY PRN, anxiety, Starting on Mon09/04/23 at 0753, Avoid taking with grapefruit juice $Given 09/05/2023 8:40 AM CDT 0.125 mg $Given 09/04/2023 7:57 PM CDT 0.125 mg $Given 09/04/2023 9:02 AM CDT 0.125 mg alum & mag hydroxide-simethicone (MAALOX) suspension 15 mL 15 mL, Oral, ONCE, On Mon09/03/23 at 1410, For 1 dose, Use for 'GI cocktail'. $Given 09/03/2023 2:15 PM CDT 15 mLs aspirin EC tablet 81 mg 81 mg, Oral, DAILY, First dose on Mon09/05/23 at 0930, DO NOT CRUSH. $Given 09/05/2023 10:13 AM CDT 81 mg benzocaine 20% (HURRICAINE/TOPEX) 20 % spray 0.5 mL 0.5 mL (1 spray), Mouth/Throat, ONCE PRN, sore throat, Starting on Mon09/04/23 at 1419, For 1 dose, Wiley throat with 1 spray 5 minutes prior to procedure., Intra-procedure $Given 09/04/2023 2:37 PM CDT 0.5 mLs cyclobenzaprine (FLEXERIL) tablet 5 mg 5 mg, Oral, ONCE, On Mon09/05/23 at 1000, For 1 dose $Given 09/05/2023 10:13 AM CDT 5 mg dicyclomine (BENTYL) tablet 20 mg 20 mg, Oral, ONCE, On Mon09/03/23 at 1410, For 1 dose, Recommended to take before meals. $Given 09/03/2023 2:15 PM CDT 20 mg fentaNYL (PF) (SUBLIMAZE) injection 50-100 mcg 50-100 mcg, Intravenous, EVERY 5 MIN PRN, severe pain, If inadequate response may repeat every 3 min PRN severe pain; when verbally requested by provider., Starting on Mon09/04/23 at 1419, Doses can be exceeded under direct oversight of patient by physician., Intra-procedure $Given 09/04/2023 2:37 PM CDT 50 mcg iopamidol (ISOVUE-370) solution 72 mL 72 mL, Intravenous, ONCE, On Mon09/03/23 at 1230, For 1 dose $Given 09/03/2023 12:30 PM CDT 72 mLs Lidocaine (LIDOCARE) 4 % Patch 1 patch 1 patch, Transdermal, EVERY 24 HOURS 1999, Administer over 12 Hours, First dose on Mon09/04/23 at 2000, Apply patch(s) to right upper quadrant pain. To prevent lidocaine toxicity, patient should [...] was injected for 96 hours post injection. $Patch/Med Applied 09/05/2023 11:38 AM CDT 1 patch Right Upper Back meclizine (ANTIVERT) tablet 12.5 mg 12.5 mg, Oral, 3 TIMES DAILY PRN, dizziness, Starting on Mon09/03/23 at 2340 $Given 09/04/2023 12:25 AM CDT 12.5 mg metoprolol tartrate (LOPRESSOR) half-tab 12.5 mg 12.5 mg, Oral, 2 TIMES DAILY, First dose (after last modification) on Mon09/04/23 at 0800, Tablets can be crushed and given via enteral route. Hold for HR <50 or SBP <100 $Given 09/05/2023 8:35 AM CDT 12.5 mg $Given 09/04/2023 6:00 PM CDT 12.5 mg $Given 09/04/2023 9:00 AM CDT 12.5 mg metoprolol tartrate (LOPRESSOR) quarter-tab 6.25 mg 6.25 mg, Oral, 2 TIMES DAILY, First dose on Mon09/03/23 at 2030, Tablets can be crushed and given via enteral route. $Given 09/03/2023 8:55 PM CDT 6.25 mg midazolam (VERSED) injection 0.5-2 mg 0.5-2 mg, Intravenous, EVERY 4 MIN PRN, sedation, If inadequate response may repeat every 4 minutes PRN sedation until desired response; when verbally requested by provider., Starting on Mon09/04/23 at 1419, Doses can be exceeded under direct oversight of patient by physician. This drug may cause significant respiratory depression. Monitor respiratory status and vital signs carefully for 1 hour after each dose., Intra-procedure $Given 09/04/2023 2:37 PM CDT 1 mg naloxone (NARCAN) injection 0.2 mg 0.2 mg, Intravenous, EVERY 2 MIN PRN, opioid reversal, Starting on Mon09/04/23 at 0828, Administer intravenous route when available and notify provider when administered. For unintended sedation or respiratory depression if all of the below criteria are met: ~ respiratory rate LESS than or EQUAL to 8. ~SaO2 less than 92% and or/end-tidal CO2 is greater than 50. ~ the patient is receiving an opioid, has unintended sedations assessed as RASS (-3), and is currently not on mechanical ventilation. RASS scale moderate (-3) is movement or eye opening to voice but no eye contact. Patient Monitoring Once the patient has demonstrated a response to the naloxone, continue to monitor respiratory rate, depth, oxygen saturation and end-tidal CO2 (if available) every 15 minutes x 2, then every 30 minutes x 2, then every 1 hour x 1 after each naloxone dose. Consider transfer to ICU if patient respiratory parameters have not improved after 4 naloxone doses. naloxone (NARCAN) injection 0.2 mg 0.2 mg, Intramuscular, EVERY 2 MIN PRN, opioid reversal, Starting on Mon09/04/23 at 0828, Administer intramuscular if an intravenous route is not available and notify provider when administered. For unintended sedation or respiratory depression if all of the below criteria are met: ~ respiratory rate LESS than or EQUAL to 8. ~SaO2 less than 92% and or/end-tidal CO2 is greater than 50. ~ the patient is receiving an opioid, has unintended sedations assessed as RASS (-3), and is currently not on mechanical ventilation. RASS scale moderate (-3) is movement or eye opening to voice but no eye contact. Patient Monitoring Once the patient has demonstrated a response to the naloxone, continue to monitor respiratory rate, depth, oxygen saturation and end-tidal CO2 (if available) every 15 minutes x 2, then every 30 minutes x 2, then every 1 hour x 1 after each naloxone dose. Consider transfer to ICU if patient respiratory parameters have not improved after 4 naloxone doses. naloxone (NARCAN) injection 0.4 mg 0.4 mg, Intravenous, EVERY 2 MIN PRN, opioid reversal, Starting on Mon09/04/23 at 0828, Administer intravenous route when available and notify provider when administered. For unintended sedation or respiratory depression if all of the below criteria are met: ~ respiratory rate LESS than or EQUAL to 8. ~ SaO2 less than 92% and or/end-tidal CO2 is greater than 50. ~ the patient is receiving an opioid, has unintended sedation assessed as RASS (-4) or (-5) and patient is currently not on mechanical ventilation. RASS scale (-4) is deep sedation with no response to voice but movement or eye opening to physical stimulation. RASS scale (-5) is unarousable. Patient Monitoring Once the patient has demonstrated a response to the naloxone, continue to monitor respiratory rate, depth, oxygen saturation and end-tidal CO2 (if available) every 15 minutes x 2, then every 30 minutes x 2, then every 1 hour x 1 after each naloxone dose. Consider transfer to ICU if patient respiratory parameters have not improved after 4 naloxone doses. naloxone (NARCAN) injection 0.4 mg 0.4 mg, Intramuscular, EVERY 2 MIN PRN, opioid reversal, Starting on Mon09/04/23 at 0828, Administer intramuscular if an intravenous route is not available and notify provider when administered. For unintended sedation or respiratory depression if all of the below criteria are met: ~ respiratory rate LESS than or EQUAL to 8. ~ SaO2 less than 92% and or/end-tidal CO2 is greater than 50. ~ the patient is receiving an opioid, has unintended sedation assessed as RASS (-4) or (-5) and patient is currently not on mechanical ventilation. RASS scale (-4) is deep sedation with no response to voice but movement or eye opening to physical stimulation. RASS scale (-5) is unarousable. Patient Monitoring Once the patient has demonstrated a response to the naloxone, continue to monitor respiratory rate, depth, oxygen saturation and end-tidal CO2 (if available) every 15 minutes x 2, then every 30 minutes x 2, then every 1 hour x 1 after each naloxone dose. Consider transfer to ICU if patient respiratory parameters have not improved after 4 naloxone doses. ondansetron (ZOFRAN ODT) ODT tab 4 mg 4 mg, Oral, EVERY 6 HOURS PRN, nausea, vomiting, Starting on 09/03/23 at 1716, This is Step 1 of nausea and vomiting management. If nausea not resolved in 15 minutes, go to Step 2 prochlorperazine (COMPAZINE). With dry hands, peel back foil backing and gently remove tablet. Do not push oral disintegrating tablet through foil backing. Administer immediately on tongue and oral disintegrating tablet dissolves in seconds, then swallow with saliva. Liquid not required. ondansetron (ZOFRAN) injection 4 mg 4 mg, Intravenous, EVERY 6 HOURS PRN, nausea, vomiting, Administer over 2-5 Minutes, Starting on 09/03/23 at 1716, Give IF patient unable to tolerate oral medication. This is Step 1 of nausea and vomiting management. If nausea not resolved in 15 minutes, go to Step 2 prochlorperazine (COMPAZINE). Irritant. oxyCODONE (ROXICODONE) tablet 5 mg 5 mg, Oral, ONCE, On 09/03/23 at 1115, For 1 dose $Given 09/03/2023 11:32 AM CDT 5 mg pantoprazole (PROTONIX) IV push injection 80 mg 80 mg, Intravenous, ONCE, On 09/03/23 at 1535, For 1 dose, Irritant. $Given 09/03/2023 3:40 PM CDT 80 mg senna-docusate (SENOKOT-S/PERICOLACE) 8.6-50 MG per tablet 1 tablet 1 tablet, Oral, 2 TIMES DAILY PRN, constipation, Starting on 09/03/23 at 1716, If no bowel movement in 24 hours, increase to 2 tablets by mouth. IF more than 1 constipation PRN medication is ordered, administer step-paulino as indicated, moving to the next step ONLY if prior step ineffective. Step 1: senna-docusate (SENOKOT-S; PERICOLACE) OR bisacodyl (DULCOLAX) EC tablet Step 2: polyethylene glycol (MIRALAX/GLYCOLAX) Step 3: bisacodyl (DULCOLAX) suppository Step 4: enema Hold for loose stools. senna-docusate (SENOKOT-S/PERICOLACE) 8.6-50 MG per tablet 2 tablet 2 tablet, Oral, 2 TIMES DAILY PRN, constipation, Starting on 09/03/23 at 1716, IF more than 1 constipation PRN medication is ordered, administer step-paulino as indicated, moving to the next step ONLY if prior step ineffective. Step 1: senna-docusate (SENOKOT-S; PERICOLACE) OR bisacodyl (DULCOLAX) EC tablet Step 2: polyethylene glycol (MIRALAX/GLYCOLAX) Step 3: bisacodyl (DULCOLAX) suppository Step 4: enema Hold for loose stools. sodium chloride (PF) 0.9% PF flush 3 mL 3 mL, Intravenous, EVERY 1 MIN PRN, line flush, Starting on 09/04/23 at 1419, Indications: for Peripheral IV flush post IV meds, Intra-procedure $Given 09/04/2023 2:37 PM CDT 3 mLs sodium chloride (PF) 0.9% PF flush 80 mL 80 mL, Intravenous, ONCE, On Mon09/03/23 at 1230, For 1 dose $Given 09/03/2023 12:28 PM CDT 80 mLs sodium chloride 0.9 % infusion at 100 mL/hr, Intravenous, CONTINUOUS, Starting on Mon09/03/23 at 1720, Until 09/04/23 at 1717 $New Bag 09/03/2023 6:50 PM CDT 100 mL/hr sodium chloride 0.9% BOLUS 1,000 mL Intravenous, 1,000 mL, ONCE, at 1,000 mL/hr, Administer over 1 Hours, On Mon09/03/23 at 1100, For 1 dose $New Bag 09/03/2023 11:33 AM CDT 1,000 mLs 1000 mL/hr telmisartan (MICARDIS) tablet 20 mg 20 mg, Oral, 2 TIMES DAILY, First dose on Mon09/03/23 at 2100, OK to use home supply. $Given 09/05/2023 10:12 AM CDT 20 mg $Given 09/04/2023 6:42 PM CDT 20 mg $Given 09/03/2023 9:00 PM CDT 20 mg documented in this encounter Active and Recently Administered Medications Times are shown in CDT. Scheduled Medication Order 09/03/2023 09/04/2023 09/05/2023 alum & mag hydroxide-simethicone (MAALOX) suspension 15 mL (COMPLETED) 15 mL, Oral, ONCE, On Mon09/03/23 at 1410, For 1 dose, Use for 'GI cocktail'. 1415 ($Given - Provider: Gabriella Jacome RN) aspirin EC tablet 81 mg 81 mg, Oral, DAILY, First dose on Mon09/05/23 at 0930, DO NOT CRUSH. 1013 ($Given - Provider: Chelsea Heath RN) cyclobenzaprine (FLEXERIL) tablet 5 mg (COMPLETED) 5 mg, Oral, ONCE, On Mon09/05/23 at 1000, For 1 dose 1013 ($Given - Provider: Chelsea Heath RN) dicyclomine (BENTYL) tablet 20 mg (COMPLETED) 20 mg, Oral, ONCE, On Mon09/03/23 at 1410, For 1 dose, Recommended to take before meals. 1415 ($Given - Provider: Gabriella Jacome RN) iopamidol (ISOVUE-370) solution 72 mL (COMPLETED) 72 mL, Intravenous, ONCE, On Mon09/03/23 at 1230, For 1 dose 1230 ($Given - Provider: Forest Bailey, RT) Lidocaine (LIDOCARE) 4 % Patch 1 patch 1 patch, Transdermal, EVERY 24 HOURS 1999, Administer over 12 Hours, First dose on Mon09/04/23 at 2000, Apply patch(s) to right upper quadrant pain. To prevent lidocaine toxicity, patient should [...] was injected for 96 hours post injection. 2031 (Not Given - Provider: Sloane Mar RN - Reason: Patient/family refused) 1138 ($Patch/Med Applied - Provider: Chelsea Heath RN - Comment: called pharmacy, keyonna to give patch now since pt did not use it overnight.Verbal from [facility]J newby to place patch on back)1331 (Due: Patch/Med Removed - Provider: Orders Generic Provider - Comment: Time automatically adjusted from order being discontinued) metoprolol tartrate (LOPRESSOR) half-tab 12.5 mg 12.5 mg, Oral, 2 TIMES DAILY, First dose (after last modification) on 09/04/23 at 0800, Tablets can be crushed and given via enteral route. Hold for HR <50 or SBP <100 0900 ($Given - Provider: Dorina Shannon, MARY)1800 ($Given - Provider: Dorina Shannon, RN) 0835 ($Given - Provider: Chelsea Heath RN) metoprolol tartrate (LOPRESSOR) quarter-tab 6.25 mg (CANCELED) 6.25 mg, Oral, 2 TIMES DAILY, First dose on 09/03/23 at 2030, Tablets can be crushed and given via enteral route. 2054 ($Given - Provider: Sadie Cespedes RN) oxyCODONE (ROXICODONE) tablet 5 mg (COMPLETED) 5 mg, Oral, ONCE, On 09/03/23 at 1115, For 1 dose 1132 ($Given - Provider: John Paul Ellison RN) pantoprazole (PROTONIX) IV push injection 80 mg (COMPLETED) 80 mg, Intravenous, ONCE, On 09/03/23 at 1535, For 1 dose, Irritant. 1540 ($Given - Provider: Bisi Campuzano RN) sodium chloride (PF) 0.9% PF flush 80 mL (COMPLETED) 80 mL, Intravenous, ONCE, On 09/03/23 at 1230, For 1 dose 1228 ($Given - Provider: Forest Bailey, RT) sodium chloride 0.9% BOLUS 1,000 mL (COMPLETED) Intravenous, 1,000 mL, ONCE, at 1,000 mL/hr, Administer over 1 Hours, On 09/03/23 at 1100, For 1 dose 1133 ($New Bag - Provider: John Paul Ellison RN)1340 (Stopped - Provider: Bisi Campuzano RN) telmisartan (MICARDIS) tablet 20 mg 20 mg, Oral, 2 TIMES DAILY, First dose on 09/03/23 at 2100, OK to use home supply. 2100 ($Given - Provider: Sadie Cespedes RN) 0855 (Not Given - Provider: Dorina Shannon RN - Reason: Medication not available - Comment: home med and patient does not have here)1842 ($Given - Provider: Dorina Shannon RN - Comment: patient supplied) 1012 ($Given - Provider: Chelsea Heath RN - Comment: pharmacy needed to label home supplyBP: 144/98) Continuous Medication Order 09/03/2023 09/04/2023 09/05/2023 sodium chloride 0.9 % infusion (CANCELED) at 100 mL/hr, Intravenous, CONTINUOUS, Starting on 09/03/23 at 1720, Until 09/04/23 at 1717 1850 ($New Bag - Provider: Sadei Cespedes RN)2330 (Paused - Provider: Caryn Garcia RN - Comment: Pt refusing at this time.) PRN Medication Order 09/03/2023 09/04/2023 09/05/2023 acetaminophen (TYLENOL) Suppository 650 mg(Linked Group 1) 650 mg, Rectal, EVERY 4 HOURS PRN, mild pain, other, and adjunct with moderate or severe pain or per patient request, Starting on 09/03/23 at 1716, Alternate with ibuprofen if ordered. Maximum acetaminophen dose from all sources = 75 mg/kg/day not to exceed 4 grams/day. 1727 (See Alternative - Provider: Jeanna Hook RN) 1548 (See Alternative - Provider: Dorina Shannon, MARY)1957 (See Alternative - Provider: Sloane Mar RN) 0835 (See Alternative - Provider: Chelsea Heath, MARY)1233 (See Alternative - Provider: Chelsea Heath, MARY) acetaminophen (TYLENOL) tablet 650 mg(Linked Group 1) 650 mg, Oral, EVERY 4 HOURS PRN, mild pain, other, and adjunct with moderate or severe pain or per patient request, Starting on 09/03/23 at 1716, Alternate with ibuprofen if ordered. Maximum acetaminophen dose from all sources = 75 mg/kg/day not to exceed 4 grams/day. 1727 ($Given - Provider: Jeanna Hook, MARY) 1548 ($Given - Provider: Dorina Shannon, MARY)195 ($Given - Provider: Sloane Mar, MARY) 0835 ($Given - Provider: Chelsea Heath RN - Comment: pt refused to try flexaril, only other pain medication as of now is IV and pt refuses to have new IV placed)1233 ($Given - Provider: Chelsea Heath RN) ALPRAZolam (XANAX) half-tab 0.125 mg 0.125 mg, Oral, 3 TIMES DAILY PRN, anxiety, Starting on Mon09/04/23 at 0753, Avoid taking with grapefruit juice 0902 ($Given - Provider: Dorina Shannon RN)1956 ($Given - Provider: Sloane Mar, MARY) 0840 ($Given - Provider: Chelsea Heath RN) benzocaine 20% (HURRICAINE/TOPEX) 20 % spray 0.5 mL (COMPLETED) 0.5 mL (1 spray), Mouth/Throat, ONCE PRN, sore throat, Starting on Mon09/04/23 at 1419, For 1 dose, Wiley throat with 1 spray 5 minutes prior to procedure., Intra-procedure 1436 ($Given - Provider: Hallie Begum RN) fentaNYL (PF) (SUBLIMAZE) injection 50-100 mcg (CANCELED) 50-100 mcg, Intravenous, EVERY 5 MIN PRN, severe pain, If inadequate response may repeat every 3 min PRN severe pain; when verbally requested by provider., Starting on Mon09/04/23 at 1419, Doses can be exceeded under direct oversight of patient by physician., Intra-procedure 1436 ($Given - Provider: Hallie Begum RN) flumazenil (ROMAZICON) injection 0.2 mg 0.2 mg, Intravenous, EVERY 1 MIN PRN, benzodiazepine reversal, over sedation, Administer over 1 Minutes, Starting on Mon09/04/23 at 1509, For 12 hours, Give over 15 seconds. If inadequate response after 45 seconds, may repeat up to a MAX total dose of 1 mg) Irritant. Use with caution in patients on benzodiazepine therapy. HYDROmorphone (DILAUDID) injection 0.2 mg 0.2 mg, Intravenous, EVERY 2 HOURS PRN, moderate pain, IF patient cannot take oral opioid OR IF pain not managed with non-pharmacological, non-opioid, or oral opioid interventions if ordered, Starting on Mon09/03/23 at 1716, May use concomitant with non-opioid analgesics. HYDROmorphone (DILAUDID) injection 0.4 mg 0.4 mg, Intravenous, EVERY 2 HOURS PRN, severe pain, IF patient cannot take oral opioid OR IF pain not managed with non-pharmacological, non-opioid, or oral opioid interventions if ordered, Starting on Mon09/03/23 at 1716, May use concomitant with non-opioid analgesics. meclizine (ANTIVERT) tablet 12.5 mg 12.5 mg, Oral, 3 TIMES DAILY PRN, dizziness, Starting on Mon09/03/23 at 2340 0025 ($Given - Provider: Caryn Garcia RN) midazolam (VERSED) injection 0.5-2 mg (CANCELED) 0.5-2 mg, Intravenous, EVERY 4 MIN PRN, sedation, If inadequate response may repeat every 4 minutes PRN sedation until desired response; when verbally requested by provider., Starting on Mon09/04/23 at 1419, Doses can be exceeded under direct oversight of patient by physician. This drug may cause significant respiratory depression. Monitor respiratory status and vital signs carefully for 1 hour after each dose., Intra-procedure 1437 ($Given - Provider: Hallie Begum RN) naloxone (NARCAN) injection 0.2 mg(Linked Group 2) 0.2 mg, Intravenous, EVERY 2 MIN PRN, opioid reversal, Starting on Mon09/04/23 at 0828, Administer intravenous route when available and notify provider when administered. For unintended sedation or respiratory depression if all of the below criteria are met: ~ respiratory rate LESS than or EQUAL to 8. ~SaO2 less than 92% and or/end-tidal CO2 is greater than 50. ~ the patient is receiving an opioid, has unintended sedations assessed as RASS (-3), and is currently not on mechanical ventilation. RASS scale moderate (-3) is movement or eye opening to voice but no eye contact. Patient Monitoring Once the patient has demonstrated a response to the naloxone, continue to monitor respiratory rate, depth, oxygen saturation and end-tidal CO2 (if available) every 15 minutes x 2, then every 30 minutes x 2, then every 1 hour x 1 after each naloxone dose. Consider transfer to ICU if patient respiratory parameters have not improved after 4 naloxone doses. naloxone (NARCAN) injection 0.2 mg(Linked Group 2) 0.2 mg, Intramuscular, EVERY 2 MIN PRN, opioid reversal, Starting on Mon09/04/23 at 0828, Administer intramuscular if an intravenous route is not available and notify provider when administered. For unintended sedation or respiratory depression if all of the below criteria are met: ~ respiratory rate LESS than or EQUAL to 8. ~SaO2 less than 92% and or/end-tidal CO2 is greater than 50. ~ the patient is receiving an opioid, has unintended sedations assessed as RASS (-3), and is currently not on mechanical ventilation. RASS scale moderate (-3) is movement or eye opening to voice but no eye contact. Patient Monitoring Once the patient has demonstrated a response to the naloxone, continue to monitor respiratory rate, depth, oxygen saturation and end-tidal CO2 (if available) every 15 minutes x 2, then every 30 minutes x 2, then every 1 hour x 1 after each naloxone dose. Consider transfer to ICU if patient respiratory parameters have not improved after 4 naloxone doses. naloxone (NARCAN) injection 0.4 mg(Linked Group 2) 0.4 mg, Intravenous, EVERY 2 MIN PRN, opioid reversal, Starting on Mon09/04/23 at 0828, Administer intravenous route when available and notify provider when administered. For unintended sedation or respiratory depression if all of the below criteria are met: ~ respiratory rate LESS than or EQUAL to 8. ~ SaO2 less than 92% and or/end-tidal CO2 is greater than 50. ~ the patient is receiving an opioid, has unintended sedation assessed as RASS (-4) or (-5) and patient is currently not on mechanical ventilation. RASS scale (-4) is deep sedation with no response to voice but movement or eye opening to physical stimulation. RASS scale (-5) is unarousable. Patient Monitoring Once the patient has demonstrated a response to the naloxone, continue to monitor respiratory rate, depth, oxygen saturation and end-tidal CO2 (if available) every 15 minutes x 2, then every 30 minutes x 2, then every 1 hour x 1 after each naloxone dose. Consider transfer to ICU if patient respiratory parameters have not improved after 4 naloxone doses. naloxone (NARCAN) injection 0.4 mg(Linked Group 2) 0.4 mg, Intramuscular, EVERY 2 MIN PRN, opioid reversal, Starting on Mon09/04/23 at 0828, Administer intramuscular if an intravenous route is not available and notify provider when administered. For unintended sedation or respiratory depression if all of the below criteria are met: ~ respiratory rate LESS than or EQUAL to 8. ~ SaO2 less than 92% and or/end-tidal CO2 is greater than 50. ~ the patient is receiving an opioid, has unintended sedation assessed as RASS (-4) or (-5) and patient is currently not on mechanical ventilation. RASS scale (-4) is deep sedation with no response to voice but movement or eye opening to physical stimulation. RASS scale (-5) is unarousable. Patient Monitoring Once the patient has demonstrated a response to the naloxone, continue to monitor respiratory rate, depth, oxygen saturation and end-tidal CO2 (if available) every 15 minutes x 2, then every 30 minutes x 2, then every 1 hour x 1 after each naloxone dose. Consider transfer to ICU if patient respiratory parameters have not improved after 4 naloxone doses. ondansetron (ZOFRAN ODT) ODT tab 4 mg(Linked Group 3) 4 mg, Oral, EVERY 6 HOURS PRN, nausea, vomiting, Starting on 09/03/23 at 1716, This is Step 1 of nausea and vomiting management. If nausea not resolved in 15 minutes, go to Step 2 prochlorperazine (COMPAZINE). With dry hands, peel back foil backing and gently remove tablet. Do not push oral disintegrating tablet through foil backing. Administer immediately on tongue and oral disintegrating tablet dissolves in seconds, then swallow with saliva. Liquid not required. ondansetron (ZOFRAN) injection 4 mg(Linked Group 3) 4 mg, Intravenous, EVERY 6 HOURS PRN, nausea, vomiting, Administer over 2-5 Minutes, Starting on Mon09/03/23 at 1716, Give IF patient unable to tolerate oral medication. This is Step 1 of nausea and vomiting management. If nausea not resolved in 15 minutes, go to Step 2 prochlorperazine (COMPAZINE). Irritant. senna-docusate (SENOKOT-S/PERICOLACE) 8.6-50 MG per tablet 1 tablet(Linked Group 4) 1 tablet, Oral, 2 TIMES DAILY PRN, constipation, Starting on 09/03/23 at 1716, If no bowel movement in 24 hours, increase to 2 tablets by mouth. IF more than 1 constipation PRN medication is ordered, administer step-paulino as indicated, moving to the next step ONLY if prior step ineffective. Step 1: senna-docusate (SENOKOT-S; PERICOLACE) OR bisacodyl (DULCOLAX) EC tablet Step 2: polyethylene glycol (MIRALAX/GLYCOLAX) Step 3: bisacodyl (DULCOLAX) suppository Step 4: enema Hold for loose stools. senna-docusate (SENOKOT-S/PERICOLACE) 8.6-50 MG per tablet 2 tablet(Linked Group 4) 2 tablet, Oral, 2 TIMES DAILY PRN, constipation, Starting on 09/03/23 at 1716, IF more than 1 constipation PRN medication is ordered, administer step-paulino as indicated, moving to the next step ONLY if prior step ineffective. Step 1: senna-docusate (SENOKOT-S; PERICOLACE) OR bisacodyl (DULCOLAX) EC tablet Step 2: polyethylene glycol (MIRALAX/GLYCOLAX) Step 3: bisacodyl (DULCOLAX) suppository Step 4: enema Hold for loose stools. sodium chloride (PF) 0.9% PF flush 3 mL (CANCELED) 3 mL, Intravenous, EVERY 1 MIN PRN, line flush, Starting on 09/04/23 at 1419, Indications: for Peripheral IV flush post IV meds, Intra-procedure 1437 ($Given - Provider: Hallie Begum RN) Linked Groups Order Group 1: acetaminophen (TYLENOL) tablet 650 mgJump to med 650 mg, Oral, EVERY 4 HOURS PRN, mild pain, other, and adjunct with moderate or severe pain or per patient request, Starting on 09/03/23 at 1716, Alternate with ibuprofen if ordered. Maximum acetaminophen dose from all sources = 75 mg/kg/day not to exceed 4 grams/day. Or acetaminophen (TYLENOL) Suppository 650 mgJump to med 650 mg, Rectal, EVERY 4 HOURS PRN, mild pain, other, and adjunct with moderate or severe pain or per patient request, Starting on Mon09/03/23 at 1716, Alternate with ibuprofen if ordered. Maximum acetaminophen dose from all sources = 75 mg/kg/day not to exceed 4 grams/day. Group 2: naloxone (NARCAN) injection 0.2 mgJump to med 0.2 mg, Intravenous, EVERY 2 MIN PRN, opioid reversal, Starting on Mon09/04/23 at 0828, Administer intravenous route when available and notify provider when administered. For unintended sedation or respiratory depression if all of the below criteria are met: ~ respiratory rate LESS than or EQUAL to 8. ~SaO2 less than 92% and or/end-tidal CO2 is greater than 50. ~ the patient is receiving an opioid, has unintended sedations assessed as RASS (-3), and is currently not on mechanical ventilation. RASS scale moderate (-3) is movement or eye opening to voice but no eye contact. Patient Monitoring Once the patient has demonstrated a response to the naloxone, continue to monitor respiratory rate, depth, oxygen saturation and end-tidal CO2 (if available) every 15 minutes x 2, then every 30 minutes x 2, then every 1 hour x 1 after each naloxone dose. Consider transfer to ICU if patient respiratory parameters have not improved after 4 naloxone doses. Or naloxone (NARCAN) injection 0.4 mgJump to med 0.4 mg, Intravenous, EVERY 2 MIN PRN, opioid reversal, Starting on Mon09/04/23 at 0828, Administer intravenous route when available and notify provider when administered. For unintended sedation or respiratory depression if all of the below criteria are met: ~ respiratory rate LESS than or EQUAL to 8. ~ SaO2 less than 92% and or/end-tidal CO2 is greater than 50. ~ the patient is receiving an opioid, has unintended sedation assessed as RASS (-4) or (-5) and patient is currently not on mechanical ventilation. RASS scale (-4) is deep sedation with no response to voice but movement or eye opening to physical stimulation. RASS scale (-5) is unarousable. Patient Monitoring Once the patient has demonstrated a response to the naloxone, continue to monitor respiratory rate, depth, oxygen saturation and end-tidal CO2 (if available) every 15 minutes x 2, then every 30 minutes x 2, then every 1 hour x 1 after each naloxone dose. Consider transfer to ICU if patient respiratory parameters have not improved after 4 naloxone doses. Or naloxone (NARCAN) injection 0.2 mgJump to med 0.2 mg, Intramuscular, EVERY 2 MIN PRN, opioid reversal, Starting on Mon09/04/23 at 0828, Administer intramuscular if an intravenous route is not available and notify provider when administered. For unintended sedation or respiratory depression if all of the below criteria are met: ~ respiratory rate LESS than or EQUAL to 8. ~SaO2 less than 92% and or/end-tidal CO2 is greater than 50. ~ the patient is receiving an opioid, has unintended sedations assessed as RASS (-3), and is currently not on mechanical ventilation. RASS scale moderate (-3) is movement or eye opening to voice but no eye contact. Patient Monitoring Once the patient has demonstrated a response to the naloxone, continue to monitor respiratory rate, depth, oxygen saturation and end-tidal CO2 (if available) every 15 minutes x 2, then every 30 minutes x 2, then every 1 hour x 1 after each naloxone dose. Consider transfer to ICU if patient respiratory parameters have not improved after 4 naloxone doses. Or naloxone (NARCAN) injection 0.4 mgJump to med 0.4 mg, Intramuscular, EVERY 2 MIN PRN, opioid reversal, Starting on Mon09/04/23 at 0828, Administer intramuscular if an intravenous route is not available and notify provider when administered. For unintended sedation or respiratory depression if all of the below criteria are met: ~ respiratory rate LESS than or EQUAL to 8. ~ SaO2 less than 92% and or/end-tidal CO2 is greater than 50. ~ the patient is receiving an opioid, has unintended sedation assessed as RASS (-4) or (-5) and patient is currently not on mechanical ventilation. RASS scale (-4) is deep sedation with no response to voice but movement or eye opening to physical stimulation. RASS scale (-5) is unarousable. Patient Monitoring Once the patient has demonstrated a response to the naloxone, continue to monitor respiratory rate, depth, oxygen saturation and end-tidal CO2 (if available) every 15 minutes x 2, then every 30 minutes x 2, then every 1 hour x 1 after each naloxone dose. Consider transfer to ICU if patient respiratory parameters have not improved after 4 naloxone doses. Group 3: ondansetron (ZOFRAN ODT) ODT tab 4 mgJump to med 4 mg, Oral, EVERY 6 HOURS PRN, nausea, vomiting, Starting on 09/03/23 at 1716, This is Step 1 of nausea and vomiting management. If nausea not resolved in 15 minutes, go to Step 2 prochlorperazine (COMPAZINE). With dry hands, peel back foil backing and gently remove tablet. Do not push oral disintegrating tablet through foil backing. Administer immediately on tongue and oral disintegrating tablet dissolves in seconds, then swallow with saliva. Liquid not required. Or ondansetron (ZOFRAN) injection 4 mgJump to med 4 mg, Intravenous, EVERY 6 HOURS PRN, nausea, vomiting, Administer over 2-5 Minutes, Starting on 09/03/23 at 1716, Give IF patient unable to tolerate oral medication. This is Step 1 of nausea and vomiting management. If nausea not resolved in 15 minutes, go to Step 2 prochlorperazine (COMPAZINE). Irritant. Group 4: senna-docusate (SENOKOT-S/PERICOLACE) 8.6-50 MG per tablet 1 tabletJump to med 1 tablet, Oral, 2 TIMES DAILY PRN, constipation, Starting on 09/03/23 at 1716, If no bowel movement in 24 hours, increase to 2 tablets by mouth. IF more than 1 constipation PRN medication is ordered, administer step-paulino as indicated, moving to the next step ONLY if prior step ineffective. Step 1: senna-docusate (SENOKOT-S; PERICOLACE) OR bisacodyl (DULCOLAX) EC tablet Step 2: polyethylene glycol (MIRALAX/GLYCOLAX) Step 3: bisacodyl (DULCOLAX) suppository Step 4: enema Hold for loose stools. Or senna-docusate (SENOKOT-S/PERICOLACE) 8.6-50 MG per tablet 2 tabletJump to med 2 tablet, Oral, 2 TIMES DAILY PRN, constipation, Starting on 09/03/23 at 1716, IF more than 1 constipation PRN medication is ordered, administer step-paulino as indicated, moving to the next step ONLY if prior step ineffective. Step 1: senna-docusate (SENOKOT-S; PERICOLACE) OR bisacodyl (DULCOLAX) EC tablet Step 2: polyethylene glycol (MIRALAX/GLYCOLAX) Step 3: bisacodyl (DULCOLAX) suppository Step 4: enema Hold for loose stools. documented in this encounter Care Teams Decorator [employer]xtures Relationship Specialty Start Date End Date Kyra Perera [address] [place] [address] PCP - General Physician Corporate Wellness Coordinator 03/31/22 Angel Hollins MD [address] [address] Neurology 07/20/23 [place] [address] [place] [address] [address] [place], [place] [id number] Physician Corporate Wellness Coordinator Physical Medicine and Rehabilitation 07/20/23 Angel Hollins MD [address] [address] Assigned Neuroscience Provider 08/03/23 documented as of this encounter
--- OUTSIDE RECORDS SUMMARY | 2023-09-19 04:52 | XMS_ITS | Encounter Summary ---
Author Organization [facility] Address [address] [place] [id number] Care Team Providers Care Case Packer Name Role Phone Kyra Perera Arabella Primary Care Provider [phone] Angel Hollins MD Unavailable [phone] Petra Dorado Unavailable [phone] Angel Hollins MD Unavailable Reason for Visit * Rehab Therapy Integrated Services (Routine) - Authorized Specialty Diagnoses / Procedures Referred By Scott muniz Referred To Contact Diagnoses Scot DAUGHERTY PF RN sent order Procedures PT NEURO EVAL [address] [address] Referral ID Status Reason Start Date Expiration Date V isits Requested Visits Authorized [id number] Authorized 07/18/2023 03/12/2024 365 365 Encounter Details Date Type Department Care Team (Latest Contact Info) Description 09/07/2023 3:00 PM CDT Therapy Visit [address] [phone] Ibeth Ellison MD [address] [place] [address] [id number] Dylan Mccann, OT Cerebrovascular accident (CVA) due to thrombosis of left middle cerebral artery (H) (Primary Dx); Activity of daily living alteration Social History Tobacco Use Types Packs/Day Years [...] on file documented as of this encounter Plan of Treatment Upcoming Encounters Date Type Department Care Team (Late st Contact Info) Description 09/19/2023 2:15 PM CDT Therapy Visit [address] [phone] Ibeth Ellison MD [address] [place] [address] [id number] Marquita Trivedi, PT 09/19/2023 3:00 PM CDT Therapy Visit [address] [phone] Ibeth Ellison MD [address] [place] [address] [phone] Gabriella Bailey, OTR [address] [address] 09/21/2023 2:15 PM CDT Therapy Visit [address] [phone] Ibeth Ellison MD [address] [place] [address] [phone] Marquita Trivedi, PT 09/21/2023 3:45 PM CDT Therapy Visit [address] [phone] Ibeth Ellison MD [address] [place] [address] [phone] Dylan Mccann OT 09/26/2023 9:45 AM CDT Therapy Visit [address] [phone] Ibeth Ellison MD [address] [place] [address] [phone] Maura Javier, PT [address] [id number] 09/26/2023 11:00 AM CDT Therapy Visit [address] [phone] Ibeth Ellison MD [address] [place] [address] [id number] Gabriella Bailey, OTR [address] [address] 09/28/2023 10:30 AM CDT Therapy Visit [address] [phone] Ibeth Ellison MD [address] [place] [id number] Maura Javier, PT [address] [id number] 09/28/2023 11:30 AM CDT Therapy Visit [address] [phone] Ibeth Ellison MD [address] [place] [address] [phone] Dylan Mccann, OT 10/03/2023 9:30 AM CDT Therapy Visit [address] [phone] Ibeth Ellison MD [address] [place] [address] [phone] Gabriella Bailey, OTR [address] [address] 10/03/2023 10:30 AM CDT Therapy Visit [address] [phone] Ibeth Ellison MD [address] [place] [address] [id number] Marquita Trivedi, PT 10/05/2023 9:45 AM CDT Therapy Visit [address] [phone] Ibeth Ellison MD [address] [place] [address] [phone] Maura Javier Ap, PT [address] 134[address] 10/05/2023 10:45 AM CDT Therapy Visit [address] [phone] Ibeth Ellison MD [address] [place] [address] [phone] Dylan Mccann, OT 10/10/2023 9:30 AM CDT Therapy Visit [facility] [address] [phone] Ibeth Ellison MD [address] [place] [address] [phone] Gabriella Bailey, OTR [address] [address] 10/10/2023 10:30 AM CDT Therapy Visit [address] [phone] Ibeth Ellison MD [address] [place] [address] [phone] Marquita Trivedi, PT 10/12/2023 9:45 AM CDT Therapy Visit [address] [phone] Ibeth Ellison MD [address] [place] [address] [phone] Maura Javier Ap, PT [address] [id number] 10/12/2023 10:45 AM CDT Therapy Visit [address] [phone] Ibeth Ellison MD [address] [place] [address] [phone] Dylan Mccann, OT 10/17/2023 9:30 AM CDT Therapy Visit [address] [phone] Ibeth Ellison MD [address] [place] [address] [id number] Gabriella Bailey, OTR F[facility] [address] [address] 10/17/2023 10:30 AM CDT Therapy Visit [address] [phone] Ibeth Ellison MD [address] [place] [address] [phone] Marquita Trivedi, PT 10/19/2023 10:15 AM CDT Therapy Visit [address] [phone] Ibeth Ellison MD [address] [place] [address] [phone] Annamaria Dennison [address] [address] 10/19/2023 11:15 AM CDT Therapy Visit [address] [phone] Ibeth Ellison MD [address] [place] [address] [phone] Marquita Trivedi, PT 10/24/2023 12:15 PM CDT Therapy Visit [address] [phone] Ibeth Ellison MD [address] [place] [address] [phone] Maura Javier Ap, PT [address] [id number] 10/26/2023 11:30 AM CDT Therapy Visit [address] [phone] Ibeth Ellison MD [address] [place] [address] [id number] Dylan Mccann, OT 10/26/2023 12:15 PM CDT Therapy Visit [address] [phone] Ibeth Ellison MD [address] [place] [address] [phone] Maura Javier Ap, PT [address] [id number] 10/31/2023 10:15 AM CDT Therapy Visit [address] [phone] Ibeth Ellison MD [address] [place] [address] [phone] Gabriella Bailey, OTR [address] [address] 10/31/2023 11:15 AM CDT Therapy Visit [address] [phone] Ibeth Ellison MD [address] [place] [address] [phone] Marquita Trivedi, PT 11/02/2023 10:00 AM CDT Therapy Visit [address] [phone] Ibeth Ellison MD [address] [place] [id number] Dylan Mccann, OT 11/02/2023 11:15 AM CDT Therapy Visit [address] [phone] Ibeth Ellison MD [address] [place] [address] [phone] Marquita Trivedi, PT 11/07/2023 10:30 AM CDT Therapy Visit [address] [phone] Ibeth Ellison MD [address] [place] [address] [phone] Marquita Trivedi, PT 11/09/2023 10:30 AM CDT Therapy Visit [address] [phone] Ibeth Ellison MD [address] [place] [address] [phone] Marquita Trivedi, PT 11/14/2023 12:15 PM CDT Therapy Visit [address] [phone] Ibeth Ellison MD [address] [place] [address] [phone] Maura Javier Ap, PT [address] [id number] 11/16/2023 10:30 AM CDT Therapy Visit [address] [phone] Ibeth Ellison MD [address] [place] [address] [phone] Marquita Trivedi PT documented as of this encounter Visit Diagnoses Diagnosis Cerebrovascular accident (CVA) due to thrombosis of left middle cerebral artery (H)- Primary Activity of daily living alteration Debility, unspecified documented in this encounter Care Teams Case Packer Relationship Specialty Start Date End Date Kyra Perera [facility] [place] [address] PCP - General Physician Event Specialist Food Demonstrator 03/31/22 Angel Hollins MD [address] [place] [phone] Neurology 07/20/23 Petra Dorado PA [address] [place] [address] Physician Event Specialist Food Demonstrator Physical Medicine and Rehabilitation 07/20/23 Angel Hollins MD [address] [address] Assigned Neuroscience Provider 08/03/23 documented as of this encounter
--- OUTSIDE RECORDS SUMMARY | 2023-09-19 04:52 | XMS_ITS | Encounter Summary ---
Author Organization [place] Address [address] [place] [address] Care Team Providers Care Organ Teacher Name Role Phone Pramod Pereraflavio Bell Primary Care Provider [phone] Angel Hollins MD Unavailable [phone] Petra Dorado Unavailable [phone] Angel Hollins MD Unavailable Reason for Visit * Reason Comments Abdominal Pain Flank Pain Hypertension * Auth/Cert (Routine) Specialty Diagnoses / Procedures Referred By Scott muniz Referred To Contact Med Surg Diagnoses Left ovarian cyst Right upper quadrant abdominal pain Right upper quadrant abdominal pain Left ovarian cyst Observation Dept [address] [place] [address] Referral ID Status Reason Start Date Expiration Date Visits Re quested Visits Authorized [id number] 1 1 Encounter Details Date Type Department Care Team (Late st Contact Info) Description 09/03/2023 10:24 AM CDT - 09/05/2023 1:31 PM T [facility] Observation Dept [address] [place] [address] Estuardo Mayorga MD [facility] [address], [address] [place], [place] [address] Judit Lugo MD [address] [place] [address] Larissa Fox MD [facility] [address] [facility] [place] [id number] Right upper quadrant abdominal pain; Left ovarian cyst; Benign essential hypertension Discharge Disposition: Home or Self Care Social History Tobacco Use Types Packs/Day Years [...] runout of current metoprolol prescription to your [facility] pharmacy. OK to continue aspirin. OK to [...] [place] PA-C - 09/04/2023 5:13 PM CDT [facility] Medicine Progress Note - Hospitalist Service Date [...] intolerant to many medications. OK to continue CONSTRUCTION RECRUITER pepcid if this was helping. GI will [...] Date: 09/04/2023 Destination: home Securely message with [employer] (more info) Text page via [facility] Paging/Directory Interval History Ongoing RUQ pain. No [...] note. Data PAST 24 HR DATA REVIEWED [id number]} documented in this encounter H&P Notes * Judit Lugo MD - 09/03/2023 5:13 PM CDT [facility] History and Physical Hospitalist Date [...] resume Crestor Coronary artery disease -Resume your CONSTRUCTION RECRUITER medications once reviewed by pharmacy Left ovarian [...] EXAM: CTA ABDOMEN PELVIS WITH CONTRAST LOCATION: [facility] DATE: 09/03/2023 INDICATION: severe abd pain, mostly RUQ. CT a couple weeks ago. now worse COMPARISON: 08/27/2023 TECHNIQUE: CT angiogram abdomen pelvis during arterial phase of injection of IV contrast. 2D and 3DMIP reconstructions were performed by the electroencephalograph technologist. Dose reduction techniques were used. CONTRAST: [...] Lugo MD - 09/03/2023 5:07 PM CDT [facility] History and Physical Hospitalist Date [...] resume Crestor Coronary artery disease -Resume your CONSTRUCTION RECRUITER medications once reviewed by pharmacy Left ovarian [...] EXAM: CTA ABDOMEN PELVIS WITH CONTRAST LOCATION: [facility] DATE: 09/03/2023 INDICATION: severe abd pain, mostly RUQ. CT a couple weeks ago. now worse COMPARISON: 08/27/2023 TECHNIQUE: CT angiogram abdomen pelvis during arterial phase of injection of IV contrast. 2D and 3DMIP reconstructions were performed by the electroencephalograph technologist. Dose reduction techniques were used. CONTRAST: [...] in this encounter Consult Notes * Guadalupe Berrios APRN MENTAL HEALTH NURSE PRACTITIONER - 09/04/2023 9:51 AM CDTAssociated Order(s): GASTROENTEROLOGY IP CONSULT Images from the original note were not included. GASTROENTEROLOGY CONSULTATION Miya Restrepo [address] [facility] [id number] 73 year old female Admission Date/Time: 09/03/2023 [...] she was asked to present herself to [facility] or [facility]. Admission labs are notable for normal [...] including patient evaluation, reviewing documentation/test results, and field recorder. Thank you for asking us to participate in the care of this patient. Guadalupe Berrios CNP [facility] ([facility]) [phone] Associated attestation - Larissa Fox MD - [...] Cespedes RN - 09/03/2023 3:56 PM CDT [facility] ED Nurse Handoff Report ED [...] 1. Lift room needed: No. Bariatric: No Room Maid Needed: No Isolation: No. Infection: Not Applicable. [...] Procedures Procedures Discussion of Management Discussed with timing adjuster Dr. Pichardo. I discussed admission and the plan of care with the Hospitalist. Social Determinants of Health adding to complexity of care None ED Course ED Course as of 09/03/23 1703 [place] Sep 03, 2023 1053 I obtained history and examined the patient as noted above 1054 I obtained history and examined the patient as noted above Medical Decision Making / Diagnosis LUX Holliday Arabella Restrepo is a 73 year old female [...] Prescriptions No medications on file Scribe Disclosure: I, Anayakiko Gabriel, am serving as a scribe at 1:45 [...] with daughter Provided cares for pt from [id number]. Pt a/o x4. C/o abdominal and back [...] Chelsea Heath RN Outcome: Met Flowsheets (Taken 09/05/2023 125) Outcome Evaluation: a/o x4. C/o abd and [...] for discharge by consultants (if involved): Yes Obstetrician/Gynecologist Nurse Safe discharge environment identified: Yes Barriers [...] for discharge by consultants (if involved): No Obstetrician/Gynecologist Nurse Safe discharge environment identified: Yes Barriers [...] for discharge by consultants (if involved): No Obstetrician/Gynecologist Nurse Safe discharge environment identified: Yes Barriers [...] for discharge by consultants (if involved): No Obstetrician/Gynecologist Nurse Safe discharge environment identified: Yes Barriers [...] for discharge by consultants (if involved): No Obstetrician/Gynecologist Nurse Safe discharge environment identified: Yes Barriers [...] wake me up as it startles me. 09/04/2023 173 by Dorina Shannon RN Outcome: Progressing 09/04/2023 173 by Dorina Shannon RN Outcome: Progressing 09/04/2023 1207 by Dorina Shannon RN Outcome: Progressing Goal: Absence of Hospital-Acquired Illness or Injury 09/04/2023 1739 by Dorina Shannon RN Outcome: [...] Goal: Readiness for Transition of Care 09/04/2023 1739 by Dorina Shannon RN Outcome: Progressing 09/04/2023 1736 by Dorina Shannon RN Outcome: Progressing 09/04/2023 1207 by Dorina Shannon RN Outcome: Progressing Problem: Pain Acute Goal: Optimal Pain Control and Function 09/04/2023 173 by Dorina Shannon RN Outcome: Progressing 09/04/2023 1736 by Dorian Shannon RN Outcome: Progressing 09/04/2023 1207 by [...] for discharge by consultants (if involved): No Obstetrician/Gynecologist Nurse Safe discharge environment identified: Yes Barriers [...] 120 by Dorina Shannon RN Outcome: Progressing Goal: Absence of Hospital-Acquired Illness or Injury 09/04/20231735 by Dorina Shannon RN Outcome: Progressing 09/04/2023 120 by Dorina Shannon RN Outcome: Progressing Intervention: Identify and Manage Fall Risk Recent Flowsheet Documentation Taken 09/04/2023 161 by Dorina Shannon RN Safety Promotion/Fall Prevention: [...] Goal: Optimal Pain Control and Function 09/04/2023 1736 by Dorina Shannon RN Outcome: [...] Goal: Blood Pressure in Desired Range 09/04/2023 1736 by Dorina Shannon RN Outcome: [...] Documentation Taken 09/04/2023 075 by Dorina Shannon blowing weasand Interventions: (refusing pain medications) repositioned relaxation techniques promoted other (see comments) Goal: Readiness for Transition of Care Outcome: Progressing Problem: Comorbidity Management Goal: Blood Pressure in Desired Range Outcome: Progressing Intervention: Maintain Blood Pressure Management Recent Flowsheet Documentation Taken 09/04/2023 075 by Dorina 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 Pain Status: Improved with use of alternative comfort measures i.e.: Rest, quiet environment, cares bundled. 2. Return to near baseline physical activity: Yes 3. Cleared for discharge by consultants (if involved): No Obstetrician/Gynecologist Nurse Safe discharge environment identified: Yes Barriers [...] for discharge by consultants (if involved): No Obstetrician/Gynecologist Nurse Safe discharge environment identified: Yes Barriers [...] for discharge by consultants (if involved): No Obstetrician/Gynecologist Nurse Safe discharge environment identified: Yes Barriers [...] * Pharmacy-Admission Medication History - Amandeep Woody [facility] - 09/03/2023 7:58 PM CDT Pharmacist Admission [...] Dr. Lugo at 2001 Changes made to CONSTRUCTION RECRUITER medication list: Added: alprazolam, nitroglycerin, aspirin, vitamin D Deleted: clopidogrel (not taking), rosuvastatin (discontinued due to adverse effects) Changed: telmisartan (changed from 10 mg daily to 20 mg twice daily) Allergies reviewed with patient and updates made in EHR: yes Medication History Completed By: Amandeep Woody RPH 09/03/2023 7:59 PM CONSTRUCTION RECRUITER Med List Medication Sig Last Dose ALPRAZolam [...] At home with family Facility name: NA personnel research psychologist: Obed Weldon Activity level at baseline: Independent, [...] Description 09/19/2023 2:15 PM CDT Therapy Visit [address] [phone] Ibeth Ellison MD [address] [place] [address] [phone] Marquita Trivedi, PT 09/19/2023 3:00 PM CDT Therapy Visit [address] [phone] Ibeth Ellison MD [address] [place] [address] [phone] Gabriella Bailey, PAMR [address] [address] 09/21/2023 2:15 PM CDT Therapy Visit [address] [phone] Ibeth Ellison MD [address] [place] [address] [phone] Marquita Trivedi, PT 09/21/2023 3:45 PM CDT Therapy Visit [facility] [address] [place] [address] Ibeth Ellison MD [address] [place] [address] Dylan Mccann, OT 09/26/2023 9:45 AM CDT Therapy Visit [address] [phone] Ibeth Ellison MD [address] [place] [address] [phone] Maura Javier, PT [address] [place], [place] [address] 09/26/2023 11:00 AM CDT Therapy Visit [address] [phone] Ibeth Ellison MD [address] [place] [address] [phone] Gabriella Bailey, OTR [address] [address] 09/28/2023 10:30 AM CDT Therapy Visit [address] [phone] Ibeth Ellison MD [address] [place] [address] [phone] Maura Javier, PT [address] [place], [place] [address] 09/28/2023 11:30 AM CDT Therapy Visit [address] [phone] Ibeth Ellison MD [address] [place] [address] [phone] Dylan Mccann, OT 10/03/2023 9:30 AM CDT Therapy Visit [address] [phone] Ibeth Ellison MD [address] [place] [address] [phone] Gabriella Bailey, OTR [address] [address] 10/03/2023 10:30 AM CDT Therapy Visit [address] [phone] Ibeth Ellison MD [address] [place] [address] Marquita Trivedi, PT 10/05/2023 9:45 AM CDT Therapy Visit [address] [phone] Ibeth Ellison MD [address] [place] [address] [phone] Maura Javier Ap, PT [address] [address] 10/05/2023 10:45 AM CDT Therapy Visit [address] [phone] Ibeth Ellison MD [address] [place] [address] [phone] Dylan Mccann, OT 10/10/2023 9:30 AM CDT Therapy Visit [address] [phone] Ibeth Ellison MD [address] [place] [address] [phone] Gabriella Bailey, OTR [address] [address] 10/10/2023 10:30 AM CDT Therapy Visit [address] [phone] Ibeth Ellison MD [address] [place] [address] [phone] Marquita Trivedi, PT 10/12/2023 9:45 AM CDT Therapy Visit [address] [phone] Ibeth Ellison MD [address] [place] [address] [phone] Maura Javier Ap, PT [address] 976215 10/12/2023 10:45 AM CDT Therapy Visit [address] [phone] Ibeth Ellison MD [address] [place] [address] [phone] Dylan Mccann, OT 10/17/2023 9:30 AM CDT Therapy Visit [address] [phone] Ibeth Ellison MD [address] [place] [address] [phone] Gabriella Bailey, OTR [address] [address] 10/17/2023 10:30 AM CDT Therapy Visit [address] [phone] Ibeth Ellison MD [address] [place] [address] [phone] Marquita Trivedi, PT 10/19/2023 10:15 AM CDT Therapy Visit [address] [phone] Ibeth Ellison MD [address] [place] [address] Annamaria Dennison [address] [address] 10/19/2023 11:15 AM CDT Therapy Visit [address] [phone] Ibeth Ellison MD [address] [place] [address] Marquita Trivedi, PT 10/24/2023 12:15 PM CDT Therapy Visit [address] [phone] Ibeth Ellison MD [address] [place] [address] [phone] Maura Javier, PT [address] 277285 10/26/2023 11:30 AM CDT Therapy Visit [address] [phone] Ibeth Ellison MD [address] [place] [address] [phone] Dylan Mccann, OT 10/26/2023 12:15 PM CDT Therapy Visit [address] [phone] Ibeth Ellison MD [address] [place] [address] [phone] Maura Javier, PT [address] [address] 10/31/2023 10:15 AM CDT Therapy Visit [address] [phone] Ibeth Ellison MD [address] [place] [address] [phone] Gabriella Bailey, OTR [address] [address] 10/31/2023 11:15 AM CDT Therapy Visit [address] [phone] Ibeth Ellison MD [address] [place] [address] [phone] Marquita Trivedi, PT 11/02/2023 10:00 AM CDT Therapy Visit [address] [phone] Ibeth Ellison MD [address] [place] [address] Dylan Mccann, OT 11/02/2023 11:15 AM CDT Therapy Visit [address] [phone] Ibeth Ellison MD [address] [place] [address] [phone] Marquita Trivedi, PT 11/07/2023 10:30 AM CDT Therapy Visit [address] [phone] Ibeth Ellison MD [address] [place] [address] [phone] Marquita Trivedi, PT 11/09/2023 10:30 AM CDT Therapy Visit [address] [phone] Ibeth Ellison MD [address] [place] [address] [phone] Marquita Trivedi, PT 11/14/2023 12:15 PM CDT Therapy Visit [address] [phone] Ibeth Ellison MD [address] [place] [address] [phone] Maura Javier Ap, PT [address] 057745 11/16/2023 10:30 AM CDT Therapy Visit [facility] [address] [place] [address] Ibeth Ellison MD [address] [place] [address] Marquita Trivedi, PT documented as of this [...] Case Report Surgical Pathology Report ? Case: [id number] ? Authorizing Provider: ??Larissa Fox MD ?Collected: ? 09/04/2023 02:44 PM ? Ordering Location: ? [facility] ?Received: ?09/04/2023 03:00 PM ? [facility] ? Pathologist: ? Keira Torres, ? MD ? Specimens: ?? A) - Small Intestine, Duodenum, duodenum biopsies ? B) - Stomach, stomach biopsies; evaluate for h pylori etc ? 09/06/2023 10:18 AM [facility] Final Diagnosis A: Small intestine, duodenum, biopsies: -Normal small intestinal mucosa without evidence of untreated sprue, peptic duodenitis or other microscopic alteration B: Stomach, biopsies: -Mildly active, chronic gastritis with reactive epithelial changes, special stain for Helicobacter pylori-like organisms performed and negative -No evidence of intestinal metaplasia, dysplasia or malignancy 09/06/2023 10:18 AM [facility] Comment The gastric sample shows mildly active, chronic gastritis, as described and the special stain for Helicobacter pylori-like organisms is negative. Ancillary testing for Helicobacter may be considered as a negative special stain does not entirely rule out Helicobacter infection. In the absence of an infectious etiology, the findings would suggest irritant reaction. Please correlate clinically. 09/06/2023 10:18 AM [facility] Clinical Information Procedure: Esophagoscopy, [...] cm. Entirely submitted in one cassette. RAJ Mendoza(ASC) 09/04/2023 3:20 PM 09/06/2023 10:18 AM CDT LABORATORY Microscopic Description A, B. A formal microscopic examination has been performed. A special stain for Helicobacter pylori-like organisms was done on the gastric sample. The patient sample is negative. 09/06/2023 10:18 AM CDT LABORATORY Performing Labs The technical component of this testing was completed at [facility]. Stain controls for all [...] CDT Larissa GARNICA - JOHNATHAN BERNSTEIN LABORATORY [facility] Acute Care Lab [address] 1st floor, Room [address] [place] [address], [place] [phone] [facility] Acute Care Lab [address] [facility] (1st floor, no room number) [place] [address], [facility] * UPPER GI ENDOSCOPY (09/04/2023 2:18 PM CDT) [facility] Upper GI Endoscopy [facility] Patient Name: Miya Restrepo ?Procedure [...] ?Olympus Gastroscope, Model # GIF-H190, Censitrac # ?[id number] was introduced through the mouth, and ?advanced [...] Note Initiated On: 09/04/2023 2:18 PM MRN: ?[id number] Procedure Date: ? 09/04/2023 2:18:56 PM Total [...] MD LAB - BLOOD OR DERABLES LABORATORY [facility] Acute Care Lab [address] [facility] Lab (1st floor, no room number) [place] [address], [facility] * Basic metabolic panel (09/04/2023 5:41 [...] - 29 mmol/L 09/04/2023 6:24 AM CDT [facility] Anion Gap 13 7 - 15 mmol/L 09/04/2023 6:24 AM CDT LABORATORY Urea Nitrogen 10.3 8.0 - 23.0 mg/dL 09/04/2023 6:24 AM CDT [facility] Creatinine 0.60 0.51 - 0.95 mg/dL 09/04/2023 6:24 AM CDT [facility] GFR Estimate >90 [...] MD LAB - BLOOD OR DERABLES LABORATORY [facility] Acute Care Lab [address] Lab (1st floor, no room number) [place] [address], [facility] * CTA Abdomen Pelvis with Contrast (09/03/2023 12:39 PM CDT) Anatomical Region Laterality Modality Abdomen/Pelvis, SUBRAD IR NH OCEDURE, UMP CT CTA, RAD CT Computed Tomography 09/03/2023 12:3 9 PM CDT Impressions 09/03/2023 1:19 PM CDT IMPRESSION: 1. ??No acute vascular abnormality. 2. ??A stable 4.7 cm left adnexal cyst. Recommend nonemergent pelvic ultrasound. Narrative 09/03/2023 1:19 PM CDT EXAM: CTA ABDOMEN PELVIS WITH CONTRAST LOCATION: [facility] DATE: 09/03/2023 INDICATION: severe abd pain, mostly RUQ. CT a couple weeks ago. now worse COMPARISON: 08/27/2023 TECHNIQUE: CT angiogram abdomen pelvis during arterial phase of injection of IV contrast. 2D and 3D MIP reconstructions were performed by the electroencephalograph technologist. Dose reduction techniques were used. CONTRAST: [...] EXAM: CTA ABDOMEN PELVIS WITH CONTRAST LOCATION: [facility] DATE: 09/03/2023 INDICATION: severe abd [...] Atrial Rate 71 BPM RADIOLOG Y RESULTS NH Interval 144 ms RADIOLOG Y RESULTS QRS Duration 86 ms RADIOLO GY RESULTS QT 372 ms RADIOLOGY RESULTS QTc 404 ms RADIOLOGY RESULTS P Patriot 21 degrees RADIOLOGY RESULTS R AXIS 26 degrees RADIOLOGY RESULTS T Patriot 39 degrees RADIOLOGY RESULTS Interpretation ECG Sinus [...] MD LAB - BLOOD ORDERABL ES LABORATORY [facility] Acute Care Lab [address] Lab (1st floor, no room number) [place] [address], [facility] * (ABNORMAL) CBC with platelets and differential (09/03/2023 10:35 AM CDT) WBC Count 5.2 4.0 - 11.0 10e3/uL [...] LAB - BLOOD ORDERABL ES [facility] LABORATORY [facility] Acute Care Lab [address] [facility] Lab (1st floor, no room number) [place] [address], [facility] * Troponin T, High Sensitivity (09/03/2023 10:35 AM CDT) [facility] Troponin T, High Sensitivity 7 <=14 ng/L [...] MD LAB - BLOOD ORDERABL ES LABORATORY [facility] Acute Care Lab [address] Lab (1st floor, no room number) [place] [address] * Lipase (09/03/2023 10:35 AM CDT) Lipase 37 13 - 60 U/L 09/03/2023 11:16 AM CDT [facility] Blood VENOUS LINE / Unknown Venipuncture / Unknown 09/03/2023 10:35 AM CDT 09/03/2023 10:40 AM CDT Estuardo Mayorga MD LAB - BLOOD ORDERABL ES Performing Organization Address City/[facility]/ZIP Co de Phone Number LABORATORY [facility] Acute Care Lab [address] Lab (1st floor, no room number) [place] [address] * Comprehensive [...] CDT [facility] Comment:eGFR calculated usin g 2020 CKD-EPI equation. Calcium 10.0 8.8 - [...] MD LAB - BLOOD ORDERABL ES LABORATORY [facility] Acute Care Lab [address] [facility] Lab (1st floor, no room number) [place] [address], [facility] * Extra Blood Bank Purple Top Tube (09/03/2023 10:35 AM CDT) [facility] Hold Specimen [facility] 09/03/2023 11:46 AM CDT [facility] Blood VENOUS LINE / Unknown Venipuncture / Unknown 09/03/2023 10:35 AM CDT 09/03/2023 10:40 AM CDT Estuardo Mayorga MD LAB - BLOOD ORDERABL ES Performing Organization Address City/[facility]/ZIP Co de Phone Number [facility] Lab [address] Lab (1st floor, no room number) [address] * Extra Blood Bank Purple Top Tube (09/03/2023 10:35 AM CDT) Hold Specimen [facility] 09/03/2023 11:46 AM CDT [facility] Blood VENOUS LINE / Unknown Venipuncture / Unknown 09/03/2023 10:35 AM CDT 09/03/2023 10:40 AM CDT Estuardo Mayorga MD LAB - BLOOD ORDERABL ES Performing Organization Address [facility]/ZIP Co de Phone Number [facility] [address] Lab (1st floor, no room number) [address] * Extra Purple Top Tube (09/03/2023 10:35 AM CDT) Hold Specimen [facility] 09/03/2023 11:46 AM CDT [facility] Blood VENOUS LINE / Unknown Venipuncture / Unknown 09/03/2023 10:35 AM CDT 09/03/2023 10:40 AM CDT Estuardo Mayorga MD LAB - BLOOD ORDERABL ES [facility] [address] Lab (1st floor, no room number) [address] * Extra Green Top ([place] Heparin) Tube (09/03/2023 10:35 AM CDT) Hold Specimen [facility] 09/03/2023 11:46 AM CDT [facility] Blood VENOUS LINE / Unknown Venipuncture / Unknown 09/03/2023 10:35 AM CDT 09/03/2023 10:40 AM CDT Estuardo Mayorga MD LAB - BLOOD ORDERABL ES [facility] Care Lab [address] Lab (1st floor, no room number) [place] [address] * Extra Blue Top Tube (09/03/2023 10:35 AM CDT) Hold Specimen [facility] 09/03/2023 11:46 AM CDT [facility] Blood VENOUS LINE / Unknown Venipuncture / Unknown 09/03/2023 10:35 AM CDT 09/03/2023 10:40 AM CDT Estuardo Mayorga MD LAB - BLOOD ORDERABL ES [facility] Acute Care Lab [address] Lab (1st floor, no room number) [place] [address] documented in this encounter Visit Diagnoses Diagnosis Right upper quadrant abdominal pain Abdominal pain, right upper quadrant Left ovarian cyst Other and unspecified ovarian cyst Benign essential hypertension Essential hypertension, benign Left ovarian cyst Other and unspecified ovarian cyst Right upper quadrant abdominal pain Abdominal pain, right upper quadrant documented in this encounter Administered Medications Inactive [...] on Mon09/04/23 at 1419, For 1 dose, [place] throat with 1 spray 5 minutes prior [...] 2 TIMES DAILY PRN, constipation, Starting on Mon09/03/23 at 1716, IF more than 1 constipation [...] 1 MIN PRN, line flush, Starting on Mon09/04/23 at 1419, Indications: for Peripheral IV flush post IV meds, Intra-procedure $Given 09/04/2023 2:37 PM CDT 3 mLs sodium chloride (PF) 0.9% PF flush 80 mL 80 mL, Intravenous, ONCE, On Mon09/03/23 at 1230, For 1 dose $Given 09/03/2023 12:28 PM CDT 80 mLs sodium chloride 0.9 % infusion at 100 mL/hr, Intravenous, CONTINUOUS, Starting on Mon09/03/23 at 1720, Until Mon09/04/23 at 1717 $New Bag 09/03/2023 6:50 PM [...] NOT CRUSH. 1013 ($Given - Provider: Chelsea Heath, MARY) cyclobenzaprine (FLEXERIL) tablet 5 mg (COMPLETED) 5 [...] Chelsea Heath RN - Comment: called pharmacy, okay to give patch now since pt did [...] Shannon, MARY)1800 ($Given - Provider: Dorina Shannon, MARY) 0835 ($Given - Provider: Chelsea Heath RN) [...] dose, Irritant. 1540 ($Given - Provider: Bisi Campuzano, MARY) sodium chloride (PF) 0.9% PF flush 80 [...] Paul Ellison RN)1340 (Stopped - Provider: Bisi Campuzano, MARY) telmisartan (MICARDIS) tablet 20 mg 20 mg, [...] patient supplied) 1012 ($Given - Provider: Chelsea Heath, MARY - Comment: pharmacy needed to label home supplyBP: 144/98) Continuous Medication Order 09/03/2023 09/04/2023 09/05/2023 sodium chloride 0.9 % infusion (CANCELED) at 100 mL/hr, Intravenous, CONTINUOUS, Starting on 09/03/23 at 1720, Until 09/04/23 at 1717 1850 ($New Bag - Provider: Sadie Cespedes RN)2330 (Paused - Provider: Caryn Garcia [...] RN) 1548 (See Alternative - Provider: Dorina Shannon RN)1957 (See Alternative - Provider: Sloane Mar RN) 0835 (See Alternative - Provider: Chelsea Heath, MARY)1233 (See Alternative - Provider: Chelsea Heath, RN) acetaminophen (TYLENOL) tablet 650 mg(Linked Group 1) 650 mg, Oral, EVERY 4 HOURS PRN, mild pain, other, and adjunct with moderate or severe pain or per patient request, Starting on 09/03/23 at 1716, Alternate with ibuprofen if ordered. Maximum acetaminophen dose from all sources = 75 mg/kg/day not to exceed 4 grams/day. 1727 ($Given - Provider: Jeanna Hook RN) 1548 ($Given - Provider: Dorina Shannon RN)1956 ($Given - Provider: Sloane Mar, MARY) 0835 ($Given - Provider: Chelsea Heath, MARY - Comment: pt refused to try flexaril, only other pain medication as of now is IV and pt refuses to have new IV placed)1233 ($Given - Provider: Chelsea Heath, MARY) ALPRAZolam (XANAX) half-tab 0.125 mg 0.125 mg, Oral, 3 TIMES DAILY PRN, anxiety, Starting on Mon09/04/23 at 0753, Avoid taking with grapefruit juice 0902 ($Given - Provider: Dorina Shannon RN)1956 ($Given - Provider: Sloane Mar RN) 0840 ($Given - Provider: Chelsea Heath RN) benzocaine 20% (HURRICAINE/TOPEX) 20 % spray 0.5 mL (COMPLETED) 0.5 mL (1 spray), Mouth/Throat, ONCE PRN, sore throat, Starting on Mon09/04/23 at 1419, For 1 dose, [place] throat with 1 spray 5 minutes prior to procedure., Intra-procedure 143 ($Given - Provider: Hallie Begum RN) fentaNYL (PF) (SUBLIMAZE) injection 50-100 mcg (CANCELED) 50-100 mcg, Intravenous, EVERY 5 MIN PRN, severe pain, If inadequate response may repeat every 3 min PRN severe pain; when verbally requested by provider., Starting on Mon09/04/23 at 1419, Doses can be exceeded under direct oversight of patient by physician., Intra-procedure 143 ($Given - Provider: Hallie Begum RN) flumazenil [...] 6 HOURS PRN, nausea, vomiting, Starting on Mon09/03/23 at 1716, This is Step 1 of [...] stools. documented in this encounter Care Teams Organ Teacher Relationship Specialty Start Date End Date Kyra Perera [address] [place] [address] PCP - General Physician Interventional Physiatrist 03/31/22 Angel Hollins MD [address] [address] Neurology 07/20/23 [place] [address] [place] [address] [address] [place] [address] Physician Interventional Physiatrist Physical Medicine and Rehabilitation 07/20/23 Angel Hollins MD [address] [address] Assigned Neuroscience Provider 08/03/23 documented as of this encounter
--- OUTSIDE RECORDS SUMMARY | 2023-09-19 04:52 | XMS_ITS | Encounter Summary ---
Author Organization [facility] Address [address] [place] [address] Care Team Providers Care Insurance Follow Up Specialist Name Role Phone Kyra Perera Primary Care Provider [phone] Angel Hollins MD Unavailable Petra Dorado Unavailable [phone] Angel Hollins MD Unavailable Reason for Visit * Rehab Therapy Integrated Services (Routine) - Authorized Specialty Diagnoses / Procedures Referred By Scott t Referred To Contact Diagnoses Scot DAUGHERTY PF RN sent order Procedures PT NEURO EVAL [address] [address] Referral ID Status Reason Start Date Expiration Date V isits Requested Visits Authorized [id number] Authorized 07/18/2023 03/12/2024 365 365 Encounter Details Date Type Department Care Team (Latest Contact Info) Description 09/07/2023 2:15 PM CDT Therapy Visit [address] [phone] Ibeth Ellison MD [address] [place] [address] [phone] Marquita Trivedi, PT Cerebrovascular accident (CVA) due to thrombosis of left middle cerebral artery (H) (Primary Dx) Social History Tobacco Use Types Packs/Day Years [...] 09/19/2023 2:15 PM CDT Therapy Visit [address] [phone] Ibeth Ellison MD [address] [place] [address] [phone] Marquita Trivedi, PT 09/19/2023 3:00 PM CDT Therapy Visit [address] [phone] Ibeth Ellison MD [address] [place] [address] [phone] Gabriella Bailey, OTR MILE [address] [address] 09/21/2023 2:15 PM CDT Therapy Visit [address] [phone] Ibeth Ellison MD [address] [place] [address] [phone] Marquita Trivedi, PT 09/21/2023 3:45 PM CDT Therapy Visit [address] [phone] Ibeth Ellison MD [address] [place] [address] Dylan Mccann OT 09/26/2023 9:45 AM CDT Therapy Visit [address] [address] Ibeth Ellison MD [address] [place] [address] [phone] Maura Javier, PT [address] [id number] 09/26/2023 11:00 AM CDT Therapy Visit [address] [phone] Ibeth Ellison MD [address] [place] [address] [phone] Gabriella Bailey, OTR [address] [address] 09/28/2023 10:30 AM CDT Therapy Visit [address] [address] Ibeth Ellison MD [address] [place] [address] Maura Javier, PT [address] 805235 09/28/2023 11:30 AM CDT Therapy Visit [address] [phone] Ibeth Ellison MD [address] [place] [address] [phone] Dylan Mccann, OT 10/03/2023 9:30 AM CDT Therapy Visit [address] [phone] Ibeth Ellison MD [address] [place] [address] [phone] Gabriella Bailey, OTR [address] [address] 10/03/2023 10:30 AM CDT Therapy Visit [address] [phone] Ibeth Ellison MD [address] [place] [address] [phone] Marquita Trivedi, PT 10/05/2023 9:45 AM CDT Therapy Visit [address] [phone] Ibeth Ellison MD [address] [place] [address] [phone] Maura Javier Ap, PT [address] 752525 10/05/2023 10:45 AM CDT Therapy Visit [address] [phone] Ibeth Ellison MD [address] [place] [address] [phone] Dylan Mccann, OT 10/10/2023 9:30 AM CDT Therapy Visit [address] [place] [address]499414 Ibeth Ellison MD [address] [place] [address] [phone] Gabriella Bailey, OTR [address] [address] 10/10/2023 10:30 AM CDT Therapy Visit [address] [phone] Ibeth Ellison MD [address] [place] [address] [phone] Marquita Trivedi, PT 10/12/2023 9:45 AM CDT Therapy Visit [address] [phone] Ibeth Ellison MD [address] [place] [address] [phone] Maura Javier Ap, PT [address] [id number] 10/12/2023 10:45 AM CDT Therapy Visit [address] [phone] Ibeth Ellison MD [address] [place] [address] [phone] Dylan Mccann, OT 10/17/2023 9:30 AM CDT Therapy Visit [address] [phone] Ibeth Ellison MD [address] [place] [address] [phone] Gabriella Bailey, OTR [address] [address] 10/17/2023 10:30 AM CDT Therapy Visit [address] [phone] Ibeth Ellison MD [address] [place] [address] [phone] Marquita Trivedi, PT 10/19/2023 10:15 AM CDT Therapy Visit [address] [phone] Ibeth Ellison MD [address] [place] [address] [phone] Annamaria Dennison [address] [address] 10/19/2023 11:15 AM CDT Therapy Visit [address] [phone] Ibeth Ellison MD [address] [place] [address] [phone] Marquita Trivedi, PT 10/24/2023 12:15 PM CDT Therapy Visit [address] [phone] Ibeth Ellison MD [address] [place] [address] [phone] Maura Javier Ap, PT [address] 747965 10/26/2023 11:30 AM CDT Therapy Visit [address] [address] Ibeth Ellison MD [address] [place] [address] Dylan Mccann, OT 10/26/2023 12:15 PM CDT Therapy Visit [address] [phone] Ibeth Ellison MD [address] [place] [address] [phone] Maura Javier Ap, PT [address] 502175 10/31/2023 10:15 AM CDT Therapy Visit [address] [phone] Ibeth Ellison MD [address] [place] [address] [phone] Gabriella Bailey, OTR [address] [address] 10/31/2023 11:15 AM CDT Therapy Visit [address] [phone] Ibeth Ellison MD [address] [place] [address] [phone] Marquita Trivedi, PT 11/02/2023 10:00 AM CDT Therapy Visit [address] [phone] Ibeth Ellison MD [address] [place] [address] Dylan Mccann, OT 11/02/2023 11:15 AM CDT Therapy Visit [address] [phone] Ibeth Ellison MD [address] [place] [address] [phone] Marquita Trivedi, PT 11/07/2023 10:30 AM CDT Therapy Visit [address] [phone] Ibeth Ellison MD [address] [place] [address] Marquita Trivedi, PT 11/09/2023 10:30 AM CDT Therapy Visit [address] [phone] Ibeth Ellison MD [address] [place] [address] [phone] Marquita Trivedi, PT 11/14/2023 12:15 PM CDT Therapy Visit [address] [phone] Ibeth Ellison MD [address] [place] [address] Maura Javier Ap, PT [address] 078315 11/16/2023 10:30 AM CDT Therapy Visit [address] [phone] Ibeth Ellison MD [address] [place], [place] 050555 Marquita Trivedi PT documented as of this encounter Visit Diagnoses Diagnosis Cerebrovascular accident (CVA) due to thrombosis of left middle cerebral artery (H)- Primary documented in this encounter Care Teams Insurance Follow Up Specialist Relationship Specialty Start Date End Date Kyra Perera [address] [place] [address] PCP - General Physician Interventionist 03/31/22 Angel Hollins MD [address] [place] [address] Neurology 07/20/23 Petra Dorado PA [address] [place] [address] Physician Interventionist Physical Medicine and Rehabilitation 07/20/23 Angel Hollins MD [address] [address] Assigned Neuroscience Provider 08/03/23 documented as of this encounter
--- OUTSIDE RECORDS SUMMARY | 2023-09-19 04:52 | XMS_ITS | Encounter Summary ---
Author Organization [facility] Address [address] [place] [address] Care Team Providers Care Thermocouple Tester Name Role Phone Kyra Perera Primary Care Provider [phone] Angel Hollins MD Unavailable Petra Dorado Unavailable [phone] Angel Hollins MD Unavailable Encounter Details Date Type Department Care Team (Latest Contact Info) Description 09/07/2023 Travel Social History Tobacco Use Types Packs/Day Years [...] Description 09/19/2023 2:15 PM CDT Therapy Visit [address] [phone] Ibeth Ellison MD [address] [place], [place] [phone] Marquita Trivedi, PT 09/19/2023 3:00 PM CDT Therapy Visit [address] [phone] Ibeth Ellison MD [address] [place] [address] [phone] Gabriella Bailey, OTR [address] [address] 09/21/2023 2:15 PM CDT Therapy Visit [address] [phone] Ibeth Ellison MD [address] [place] [address] [phone] Marquita Trivedi, PT 09/21/2023 3:45 PM CDT Therapy Visit [address] [phone] Ibeth Ellison MD [address] [place] [address] [phone] Dylan Mccann, OT 09/26/2023 9:45 AM CDT Therapy Visit [address] [phone] Ibeth Ellison MD [address] [place] [address] [phone] Maura Javier Ap, PT [address] [phone] 09/26/2023 11:00 AM CDT Therapy Visit [address] [phone] Ibeth Ellison MD [address] [place] [address] [phone] Gbariella Bailey OTR FV [address] [address] 09/28/2023 10:30 AM CDT Therapy Visit [address] [phone] Ibeth Ellison MD [address] [place] [address] [phone] Maura Javier, PT [address] 445375 09/28/2023 11:30 AM CDT Therapy Visit [address] [phone] Ibeth Ellison MD [address] [place] [address] [phone] Dylan Mccann, OT 10/03/2023 9:30 AM CDT Therapy Visit [address] [phone] Ibeth Ellison MD [address] [place] [address] [phone] Gabriella Bailey OTTomi [address] [address] 10/03/2023 10:30 AM CDT Therapy Visit [address] [phone] Ibeth Ellison MD [address] [place] [address] [phone] Marquita Trivedi, PT 10/05/2023 9:45 AM CDT Therapy Visit [address] [phone] Ibeth Ellison MD [address] [place] [address] [phone] Maura Javier Ap, PT [address] 289025 10/05/2023 10:45 AM CDT Therapy Visit [address] [phone] Ibeth Ellison MD [address] [place] [address] [phone] Dylan Mccann, OT 10/10/2023 9:30 AM CDT Therapy Visit [address] [phone] Ibeth Ellison MD [address] [place] [address] [phone] Gabriella Bailey, OTR [address] [address] 10/10/2023 10:30 AM CDT Therapy Visit [address] [phone] Ibeth Ellison MD [address] [place] [address] [phone] Marquita Trivedi, PT 10/12/2023 9:45 AM CD[facility] [address] [place] [address] Ibeth Ellison MD [address] [place] [address] [phone] Maura Javier Ap, PT [address] [place], [place] 244955 10/12/2023 10:45 AM CDT Therapy Visit [address] [phone] Ibeth Ellison MD [address] [place] [address] [phone] Dylan Mccann, OT 10/17/2023 9:30 AM CDT Therapy Visit [address] [phone] Ibeth Ellison MD [address] [place] [address] [phone] Gabriella Bailey, OTR [address] [address] 10/17/2023 10:30 AM CDT Therapy Visit [address] [phone] Ibeth Ellison MD [address] [place] [address] [phone] Marquita Trivedi, PT 10/19/2023 10:15 AM CDT Therapy Visit [address] [phone] Ibeth Ellison MD [address] [place] [address] [phone] Mariannaana Annamaria L [address] [address] 10/19/2023 11:15 AM CDT Therapy Visit [address] [phone] Ibeth Ellison MD [address] [place] [address] [phone] Marquita Trivedi, PT 10/24/2023 12:15 PM CDT Therapy Visit [address] [phone] Ibeth Ellison MD [address] [place] [address] [phone] Marua Javier, PT [address] 115745 10/26/2023 11:30 AM CDT Therapy Visit [address] [phone] Ibeth Ellison MD [address] [place] [address] [phone] Dylan Mccann, OT 10/26/2023 12:15 PM CDT Therapy Visit [address] [phone] Ibeth Ellison MD [address] [place] [address] [phone] Maura Javier, PT [address] 660435 10/31/2023 10:15 AM CDT Therapy Visit [address] [phone] Ibeth Ellison MD [address] [place] [address] 83[address] Gabriella Bailey, OTR [address] [address] 10/31/2023 11:15 AM CDT Therapy Visit [address] [phone] Ibeth Ellison MD [address] [place] [address] [phone] Marquita Trivedi, PT 11/02/2023 10:00 AM CDT Therapy Visit [address] [phone] Ibeth Ellison MD [address] [place] [address] [phone] Dylan Mccann, OT 11/02/2023 11:15 AM CDT Therapy Visit [address] [phone] Ibeth Ellison MD [address] [place] [address] [phone] Marquita Trivedi, PT 11/07/2023 10:30 AM CDT Therapy Visit [address] [phone] Ibeth Ellison MD [address] [place] [address] [phone] Marquita Trivedi, PT 11/09/2023 10:30 AM CDT Therapy Visit [address] [phone] Ibeth Ellison MD [address] [place] [address] [phone] Marquita Trivedi, PT 11/14/2023 12:15 PM CDT Therapy Visit [address] [phone] Ibeth Ellison MD [address] [place] [address] [phone] aMura Javier Ap, PT [address] [place], [place] 5638[address] 11/16/2023 10:30 AM CDT Therapy Visit [address] [phone] Ibeth Ellison MD [address] [place] [address] [phone] Marquita Trivedi, PT documented as of this encounter Visit Diagnoses Not on filedocumented in this encounter Care Teams Thermocouple Tester Relationship Specialty Start Date End Date Kyra Perera [address] [place] [address] PCP - General Physician Painting Machine Operator 03/31/22 Angel Hollins MD [address] [place] [address] [id number] [place] [address] Neurology 07/20/23 Petra Dorado PA [address] [place], [place] [id number] [address] [place] [address] Physician Painting Machine Operator Physical Medicine and Rehabilitation 07/20/23 Angel Hollins MD 909 [facility] [id number] [place] [address] Assigned Neuroscience Provider 08/03/23 documented as of this encounter
--- OUTSIDE RECORDS SUMMARY | 2023-09-19 04:53 | XMS_ITS | Encounter Summary ---
Author Organization [facility] Address [address] [place] [address] Care Team Providers Care Seasoning Sprayer Name Role Phone GwenPramod farahflavio Bell Primary Care Provider [phone] Angel Hollins MD Unavailable Petra Dorado Unavailable [phone] Angel Hollins MD Unavailable Reason for Visit * Reason Comments Multiple Complaints Encounter Details Date Type Department Care Team (Late st Contact Info) Description 08/27/2023 5:46 AM CDT - 08/27/2023 8:19 AM CDT Emergency [facility] [address] [place] [id number] [phone] Alvaro Ayala MD [facility] [address] [place] [address] Hypertension, unspecified type; Abdominal pain, epigastric Discharge Disposition: Home or Self Care Social History Tobacco Use Types Packs/Day Years Used Date Smoking Tobacco: Never Assessed PHQ-2 Answer Date Recorded PHQ-2 Score 0 07/25/2023 Adolescent Education Answer Date Record ed Getting School Help Needed Not on file 12/25 Sex and Gender Information Value Date Recorded Sex Assigned at Not on file Gender Identity Not on file Sexual Orientation Not on file documented as of this encounter Last Filed Vital Signs Vital Sign Reading Time Taken Comments Blood Pressure 170/95 08/27/2023 7:58 AM CDT Pulse 68 08/27/2023 7:48 AM CDT Temperature 36.8 ??C (98.2 ??F) 08/27/2023 5:46 AM CD T Respiratory Rate 16 08/27/2023 7:00 AM CDT Oxygen Saturation 97% 08/27/2023 7:58 AM CDT Inhaled Oxygen Concentration - - Weight 63.5 kg (140 lb) 08/27/2023 5:42 AM CDT Height 157.5 cm (5' 2) 08/27/2023 7:30 AM CDT Body Mass Index 25.61 08/27/2023 5:42 AM CDT documented in this encounter Discharge Instructions * Discharge Instructions* Alvaro Ayala MD - 08/27/2023 7:59 AM CDT Due to your allergies to hypertensive meds it is difficult to treat your blood pressure we have given you a list of medications but due to the recent history of increasing your Micardis. We recommendyou take this close your regular doctor in continue to recheck with blood pressure and with them. We cannot evaluate stomach pain. We are offering a coating medication for this. Please discuss with your regular doctor endoscopy and further workup if you have persistent heavy red blood in the stool or mucus in the stool or high fever return to the emergency room for reassessment. * Attachments The following attachments cannot be sent through Care Everywhere. 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 (H) Take 1 tablet (75 mg) by mouth daily for 2 days 2 tablet 07/19/2023 09/03/2023 metoprolol tartrate (LOPRESSOR) 25 MG tabletIndications:Benign essential hypertension Take 0.25 tablets (6.25 mg) by mouth 2 times daily for 30 days 15 tablet 07/18/2023 09/03/2023 rosuvastatin (CRESTOR) 5 MG tabletIndications: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 (H) Take 1 tablet (5 mg) by mouth once a week for 30 days 4 tablet 07/19/2023 09/03/2023 sucralfate (CARAFATE) 1 GM/10ML suspension Take 10 mLs (1 g) by mouth 4 times daily 414 mL 08/27/2023 09/05/2023 telmisartan (MICARDIS) 20 MG tabletIndications: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 C/o R-sided flank pain x1 day. Rates pain 8/10, describes pain as sharp. Denies N/V. Pt states she had a stroke 8 weeks ago. Also c/o dysuria, headache rates pain 4/10, palpitations. Pt states she took 1 nitroglycerin [employer] because her BP was high. VSS except hypertensive 214/106, ABCs intact, A&Ox4. * Alvaro Ayala MD - 08/27/2023 5:33 AM CDT Emergency Department Note History of Present Illness Chief Complaint Multiple Complaints HPI Miya Restrepo is a 73 year old female who presents with multiple complaints. Patient is a 73-year-old female with a history of refractory hypertension prior stroke. Patient lists 20 allergies to different medications and she is allergic to due to high multiple complaints. Patient presents to the emergency room stating she has had abdominal pain for a while. She seen her primary doctor they havenot come up with a source. It was worse since yesterday. She is also had a headache. Pain localizesin the right mid back and radiates to the front. She has had a prior gallbladder and appendix removal. Does not change with position or exertion. She has had a mild headache. She states her blood pressure was running high due to her multiple allergies she took nitroglycerin. Patient does not have any diagnosed coronary artery disease. Patient presents to the emergency room for assessment due to worsening pain since yesterday. Independent Historian None Review of External Notes None Past Medical History Medical History and Problem List Past Medical History: Diagnosis Date Anxiety CAD (coronary artery disease) HLD (hyperlipidemia) HTN (hypertension) SHERRIE (obstructive sleep apnea) Medications clopidogrel (PLAVIX) 75 MG tablet metoprolol tartrate (LOPRESSOR) 25 MG tablet rosuvastatin (CRESTOR) 5 MG tablet telmisartan (MICARDIS) 20 MG tablet telmisartan (MICARDIS) 20 MG tablet Surgical History No past surgical history on file. Physical Exam Patient Vitals for the past 24 hrs: BP Temp Temp src Pulse Resp SpO2 Weight 08/27/23 0546 (!) 214/106 98.2 ??F (36.8 ??C) Temporal 79 18 97 % -- 08/27/23 0542 -- -- -- -- -- -- 63.5 kg (140 lb) Physical Exam Vitals reviewed. HENT: Head: Normocephalic. Right Ear: Tympanic membrane normal. Nose: Nose normal. Mouth/Throat: Mouth: Mucous membranes are moist. Eyes: Pupils: Pupils are equal, round, and reactive to light. Cardiovascular: Rate and Rhythm: Normal rate. Pulmonary: Effort: Pulmonary effort is normal. Abdominal: General: Abdomen is flat. Bowel sounds are normal. Musculoskeletal: General: Normal range of motion. Skin: General: Skin is warm. Capillary Refill: Capillary refill takes less than 2 seconds. Neurological: General: No focal deficit present. Mental Status: She is alert and oriented to person, place, and time. Psychiatric: Mood and Affect: Mood normal. Diagnostics Lab Results Labs Ordered and Resulted from Time of ED Arrival to Time of ED Departure COMPREHENSIVE METABOLIC PANEL - Abnormal Result Value Sodium 140 Potassium 3.9 Carbon Dioxide (CO2) 22 Anion Gap 15 Urea Nitrogen 15.4 Creatinine 0.56 GFR Estimate >90 Calcium 9.5 Chloride 103 Glucose 100 (*) Alkaline Phosphatase 92 AST 31 ALT 30 Protein Total 7.5 Albumin 4.9 Bilirubin Total 0.4 ROUTINE UA WITH MICROSCOPIC - Abnormal Color Urine Straw Appearance Urine Slightly Cloudy (*) Glucose Urine Negative Bilirubin Urine Negative Ketones Urine Negative Specific [place] Urine 1.005 Blood Urine Negative pH Urine 6.5 Protein Albumin Urine Negative Urobilinogen Urine Normal Nitrite Urine Negative Leukocyte Esterase Urine Negative RBC Urine <1 WBC Urine <1 CBC WITH PLATELETS AND DIFFERENTIAL - Abnormal WBC Count 5.1 RBC Count 5.46 (*) Hemoglobin 15.8 (*) Hematocrit 47.2 (*) MCV 86 MCH 28.9 MCHC 33.5 RDW 13.3 Platelet Count 223 % Neutrophils 59 % Lymphocytes 29 % Monocytes 9 % Eosinophils 2 % Basophils 1 % Immature Granulocytes 0 NRBCs per 100 WBC 0 Absolute Neutrophils 3.0 Absolute Lymphocytes 1.5 Absolute Monocytes 0.4 Absolute Eosinophils 0.1 Absolute Basophils 0.0 Absolute Immature Granulocytes 0.0 Absolute NRBCs 0.0 LIPASE - Normal Lipase [address] Abdomen Pelvis w Contrast Final Result IMPRESSION: 1. Few mild areas of circumferential colonic wall thickening which could represent a mild colitis. 2. Left adnexal cyst measuring 4.8 cm. Recommend nonemergent evaluation with pelvic ultrasound. 3. Hepatic steatosis. CT Head w/o Contrast Final Result IMPRESSION: 1. No acute intracranial process. EKG ECG taken at 0552, ECG read at 0610 Rate 76 bpm. UT interval 144 ms. QRS duration 86 ms. QT/QTc 368/414 ms. normal sinus rhythm no ST or T wave abnormalities. Independent Interpretation None ED Course Medications Administered Medications acetaminophen (TYLENOL) tablet 1,000 mg (1,000 mg Oral $Given 08/27/23 0614) fentaNYL (PF) (SUBLIMAZE) injection 50 mcg (50 mcg Intravenous Not Given 08/27/23 0615) Procedures Procedures Discussion of Management None Social Determinants of Health adding to complexity of care None ED Course Medical Decision Making / Diagnosis [facility] Diagnoses: and None MIPS None [facility] Miya Restrepo is a 73 year old female who presents with multiple complaints including flank pain and headache and not feeling well taking nitro without history of coronary artery disease with history of uncontrolled high blood pressure with listed 20 allergies to different medications including multiple blood pressure medications. Patient is well-appearing seems somewhat anxious. Evaluation is negative in the ER. CTs of the head and abdomen were ordered prior to my arrival. Care was discussedwith the patient unsure how this colitis finding on CT measures to her symptoms as patient is had no diarrhea. Hard to rule out dyspeptic pain. No concerns for coronary artery disease or stroke. Noncontrast head CT CT performed due to hypertension and headache negative for hemorrhage. Care was discussed with the patient was observed in the ER and offered discharge home. Encouraged follow-up for blood pressure reassess meant through primary care. Disposition The patient was discharged. ICD-10 Codes: ICD-10-CM 1. Hypertension, unspecified type I10 2. Abdominal pain, epigastric R10.13 Discharge Medications New Prescriptions No medications on file MD Lucy Trujillo Brian Samuel, MD 08/29/23 0136 documented in this encounter Plan of Treatment Upcoming Encounters Date Type Department Care Team (Late st Contact Info) Description 09/19/2023 2:15 PM CDT Therapy Visit [address] [phone] Ibeth Ellison MD [address] [place] [address] [phone] Marquita Trivedi, JESSICA 09/19/2023 3:00 PM CDT Therapy Visit [address] [phone] Ibeth Ellison MD [address] [place] [phone] Gabriella Bailey, OTR [facility] [address] [address] 09/21/2023 2:15 PM CDT Therapy Visit [address] [phone] Ibeth Ellison MD [address] [place] [address] [phone] Marquita Trivedi, PT 09/21/2023 3:45 PM CDT Therapy Visit [address] [phone] Ibeth Ellison MD [address] [place] [address] [phone] Dylan Mccann, OT 09/26/2023 9:45 AM CDT Therapy Visit [address] [phone] Ibeth Ellison MD [address] [place] [address] [phone] Maura Javier, PT [address] [phone] 09/26/2023 11:00 AM CDT Therapy Visit [address] [phone] Ibeth Ellison MD [address] [place] [address] [phone] Gabriella Bailey, OTR [address] [address] 09/28/2023 10:30 AM CDT Therapy Visit [address] [phone] Ibeth Ellison MD [address] [place] [address] [phone] Maura Javier, PT [address] [place] [address] 09/28/2023 11:30 AM CDT Therapy Visit [facility] [address] [place] [phone] Ibeth Ellison MD [address] [place] [address] [phone] Dylan Mccann, OT 10/03/2023 9:30 AM CDT Therapy Visit [address] [phone] Ibeth Ellison MD [address] [place] [address] [phone] Gabriella Bailey, OTR [facility] [address] [place] [address] 10/03/2023 10:30 AM CDT Therapy Visit [address] [phone] Ibeth Ellison MD [address] [place] [address] [phone] Marquita Trivedi, PT 10/05/2023 9:45 AM CDT Therapy Visit [address] [phone] Ibeth Ellison MD [address] [place] [address] [phone] Maura Javier Ap, PT [address] [place], [place] [phone] 10/05/2023 10:45 AM CDT Therapy Visit [facility] [address] [phone] Ibeth Ellison MD [address] [place] [address] [phone] Dylan Mccann, OT 10/10/2023 9:30 AM CDT Therapy Visit [address] [phone] Ibeth Ellison MD [address] [place] [address] [phone] Gabriella Bailey, OTR [address] [address] 10/10/2023 10:30 AM CDT Therapy Visit [address] [phone] Ibeth Ellison MD [address] [place] [address] [phone] Marquita Trivedi, PT 10/12/2023 9:45 AM CDT Therapy Visit [address] [phone] Ibeth Ellison MD [address] [place] [address] [phone] Maura Javier Ap, PT [address] [phone] 10/12/2023 10:45 AM CDT Therapy Visit [address] [phone] Ibeth Ellison MD [address] [place] [address] [phone] Dylan Mccann, OT 10/17/2023 9:30 AM CDT Therapy Visit [address] [phone] Ibeth Ellison MD [address] [place] [address] [phone] Gabriella Bailey, OTR [address] [address] 10/17/2023 10:30 AM CDT Therapy Visit [address] [phone] Ibeth Ellison MD [address] [place] [address] [phone] Marquita Trivedi, PT 10/19/2023 10:15 AM CDT Therapy Visit [address] [phone] Ibeth Ellison MD [address] [place] [address] [phone] Annamaria Dennison [address] [address] 10/19/2023 11:15 AM CDT Therapy Visit [address] [phone] Ibeth Ellison MD [address] [place] [address] [phone] Marquita Trivedi, PT 10/24/2023 12:15 PM CDT Therapy Visit [address] [phone] Ibeth Ellison MD [address] [place] [address] [phone] Maura Javier, PT [address] [address] 10/26/2023 11:30 AM CDT Therapy Visit [address] [phone] Ibeth Ellison MD [address] [place] [address] [phone] Dylan Mccann, OT 10/26/2023 12:15 PM CDT Therapy Visit [address] [phone] Ibeth Ellison MD [address] [place] [address] [phone] Maura Javier, PT [address] [address] 10/31/2023 10:15 AM CDT Therapy Visit [address] [phone] Ibeth Ellison MD [address] [place] [address] [phone] Gabriella Bailey, OTR [address] [address] 10/31/2023 11:15 AM CDT Therapy Visit [address] [phone] Ibeth Ellison MD [address] [place] [phone] Marquita Trivedi, PT 11/02/2023 10:00 AM CDT Therapy Visit [address] [phone] Ibeth Ellison MD [address] [place] [address] [phone] Dylan Mccann, OT 11/02/2023 11:15 AM CDT Therapy Visit [address] [phone] Ibeth Ellison MD [address] [place] [phone] Marquita Trivedi, PT 11/07/2023 10:30 AM CDT Therapy Visit [address] [phone] Ibeth Ellison MD [address] [place] [address] [phone] Marquita Trivedi, PT 11/09/2023 10:30 AM CDT Therapy Visit [address] [phone] Ibeth Ellison MD [address] [place] [phone] Marquita Trivedi, PT 11/14/2023 12:15 PM CDT Therapy Visit [address] [phone] Ibeth Ellison MD [address] [place] [address] [phone] Maura Javier Ap, PT [facility] [address] [facility] [address] [place], [place] [phone] 11/16/2023 10:30 AM CDT Therapy Visit [facility] [address] [place] [phone] Ibeth Ellison MD [address] [place], [place] [phone] Marquita Trivedi, PT documented as of this encounter Procedures Procedure Name Priority Date/Time Associated Diagnosis Comments CT ABDOMEN PELVIS W CONTRAST STAT 08/27/2023 7:[address] HEAD W/O CONTRAST STAT 08/27/2023 7:15 AM CDT EXTRA TUBE STAT 08/27/2023 6:11 AM CDT EXTRA RED TOP TUBE STAT 08/27/2023 6: 11 AM CDT EXTRA BLUE TOP TUBE STAT 08/27/2023 6 :11 AM CDT CBC WITH PLATELETS AND DIFFERENTIAL STAT 08/27/2023 6:08 AM CDT CBC WITH PLATELETS & DIFFERENTIAL STAT 08/27/2023 6:08 AM CDT LIPASE STAT 08/27/2023 6:08 AM CDT COMPREHENSIVE METABOLIC PANEL STAT 08/27/2023 6:08 AM CDT ROUTINE UA WITH MICROSCOPIC STAT 08/27/2023 5:59 AM CDT EKG 12-LEAD, TRACING ONLY STAT 08/27/2023 5:52 AM CDT documented in this encounter Results * CT Abdomen Pelvis w Contrast (08/27/2023 [...] EXAM: CT ABDOMEN PELVIS W CONTRAST LOCATION: [facility] DATE: 08/27/2023 INDICATION: Right flank [...] EXAM: CT ABDOMEN PELVIS W CONTRAST LOCATION: [facility] DATE: 08/27/2023 INDICATION: Right flank [...] Head w/o Contrast (08/27/2023 7:15 AM CDT) Anatomical Region Laterality Modality Head, SUBRAD CT NEURO, SUBRA D CT NEURO, UMP CT NEURO, RAD CT Computed Tomography 08/27/2023 7:15 AM CDT Impressions 08/27/2023 7:22 AM CDT IMPRESSION: 1. ??No acute intracranial process. Narrative 08/27/2023 7:22 AM CDT EXAM: CT HEAD W/O CONTRAST LOCATION: [facility] DATE: 08/27/2023 INDICATION: headache, HTN, [...] 08/27/2023 EXAM: CT HEAD W/O CONTRAST LOCATION: [facility] DATE: 08/27/2023 INDICATION: headache, HTN, [...] Tube (08/27/2023 6:11 AM CDT) Hold Specimen [facility] 08/27/2023 7:17 AM CDT LABORATORY Blood VENOUS LINE / Unknown Venipuncture / Unknown 08/27/2023 6:11 AM CDT 08/27/2023 6:17 AM CDT Alvaro Ayala MD LAB - BLOOD AKASH MCCANN [facility] [address] [facility] Lab (1st floor, no room number) [place] [address] * Extra Blue Top Tube (08/27/2023 6:11 AM CDT) [facility] Signature Hold Specimen [facility] 08/27/2023 7:17 AM CDT LABORATORY Blood VENOUS LINE / Unknown Venipuncture / Unknown 08/27/2023 6:11 AM CDT 08/27/2023 6:17 AM CDT Alvaro Ayala MD LAB - BLOOD AKASH MCCANN [facility] Organization Address City/State/ZIP Co de Phone Number [facility] LABORATORY [facility] [address] Lab (1st floor, no room number) [place] [address], [facility] * (ABNORMAL) CBC with platelets and differential (08/27/2023 6:08 AM CDT) WBC Count 5.1 4.0 - 11.0 10e3/uL 08/27/2023 6:22 AM CDT [facility] RBC Count 5.46(H) 3.80 - 5.20 10e6/uL 08/27/2023 6:22 AM CDT [facility] Hemoglobin 15.8(H) 11.7 - 15.7 g/dL 08/27/2023 6:22 AM CDT [facility] Hematocrit 47.2(H) 35.0 - 47.0 % 08/27/2023 6:22 AM CDT [facility] MCV 86 78 - 100 fL 08/27/2023 6:22 AM CDT [facility] MCH 28.9 26.5 - 33.0 pg 08/27/2023 6:22 AM CDT [facility] MCHC 33.5 31.5 - 36.5 g/dL 08/27/2023 6:22 AM CDT [facility] RDW 13.3 10.0 - 15.0 % 08/27/2023 6:22 AM CDT [facility] Platelet Count 223 150 - 450 10e3/uL 08/27/2023 6:22 AM CDT [facility] % Neutrophils 59 % 08/27/2023 6:22 AM CDT [facility] % Lymphocytes 29 % 08/27/2023 6:22 AM CDT [facility] % Monocytes 9 % 08/27/2023 6:22 AM CDT [facility] % Eosinophils 2 % 08/27/2023 6:22 AM CDT [facility] % Basophils 1 % 08/27/2023 6:22 AM CDT [facility] % Immature Granulocytes 0 % 08/27/2023 6:22 AM CDT [facility] LAB[facility] NRBCs per 100 WBC 0 <1 /100 024 6:22 AM CDT [facility] Absolute Neutrophils 3.0 1.6 - 8.3 10e3/uL 08/27/2023 6:22 AM CDT [facility] Absolute Lymphocytes 1.5 0.8 - 5.3 10e3/uL 08/27/2023 6:22 AM CDT [facility] Absolute Monocytes 0.4 0.0 - 1.3 10e3/uL 08/27/2023 6:22 AM CDT [facility] Absolute Eosinophils 0.1 0.0 - 0.7 10e3/uL 08/27/2023 6:22 AM CDT [facility] LAB[facility] Absolute Basophils 0.0 0.0 - 0.2 10e3/uL 08/27/2023 6:22 AM CDT [facility] Absolute Immature Granulocytes 0.0 <=0.4 10e3/uL 08/27/2023 6:22 AM CDT [facility] Absolute NRBCs 0.0 10e3/uL 08/27/2023 6:22 AM CDT [facility] LAB[facility] Blood VENOUS LINE / Unknown Venipuncture / Unknown 08/27/2023 6:08 AM CDT 08/27/2023 6:17 AM CDT Radha Cabrera MD LAB - BLOOD ORD ERABLES [facility] [address] Lab (1st floor, no room number) [place] [address] * Lipase (08/27/2023 6:08 AM CDT) Lipase 43 13 - 60 U/L 08/27/2023 6:47 AM CDT [facility] LAB[facility]AT[facility] Blood VENOUS LINE / Unknown Venipuncture / Unknown 08/27/2023 6:08 AM CDT 08/27/2023 6:17 AM CDT Radha Cabrera MD LAB - BLOOD ORD ERABLES [facility] [address] Lab (1st floor, no room number) [place] [address], [facility] * (ABNORMAL) Comprehensive metabolic panel (08/27/2023 6:08 AM CDT) [facility] Sodium 140 135 - 145 mmol/L 08/27/2023 6:47 AM CDT [facility] LAB[facility] Comment:Reference intervals for this test were updated on 12/06/2022 to more accurately reflect our healthy population. There may be differences in the flagging of prior results with similar values performed with this method. Interpretation of those prior results can be made in the context of the updated reference intervals. Potassium 3.9 3.4 - 5.3 mmol/L 08/27/2023 6:47 AM CDT [facility] Carbon Dioxide (CO2) 22 22 - 29 mmol/L 08/27/2023 6:47 AM CDT [facility] Anion Gap 15 7 - 15 mmol/L 08/27/2023 6:47 AM CDT [facility] Urea Nitrogen 15.4 8.0 - 23.0 mg/dL 08/27/2023 6:47 AM CDT [facility] Creatinine 0.56 0.51 - 0.95 mg/dL 08/27/2023 6:47 AM CDT [facility] GFR Estimate >90 >60 mL/min/1. 73m2 08/27/2023 6:47 AM CDT [facility] Comment:eGFR calculated usin 2020 CKD-EPI equation. Calcium 9.5 8.8 - 10.2 mg/dL 08/27/2023 6:47 AM CDT [facility] Chloride 103 98 - 107 mmol/L 08/27/2023 6:47 AM CDT [facility] Glucose 100(H) 70 - 99 mg/dL 08/27/2023 6:47 AM CDT [facility] Alkaline Phosphatase 92 40 - 150 U/L 08/27/2023 6:47 AM CDT [facility] AST 31 0 - 45 U/L 08/27/2023 6:47 AM CDT [facility] Comment:Reference intervals for this test were updated on 08/22/2022 to more accurately reflect our healthy population. There may be differences in the flagging of prior results with similar values performed with this method. Interpretation of those prior results can be made in the context of the updated reference intervals. ALT 30 0 - 50 U/L 08/27/2023 6:47 AM CDT [facility] Comment:Reference intervals for this test were updated on 08/22/2022 to more accurately reflect our healthy population. There may be differences in the flagging of prior results with similar values performed with this method. Interpretation of those prior results can be made in the context of the updated reference intervals. Protein Total 7.5 6.4 - 8.3 g/dL 08/27/2023 6:47 AM CDT [facility] Albumin 4.9 3.5 - 5.2 g/dL 08/27/2023 6:47 AM CDT [facility] Bilirubin Total 0.4 <=1.2 mg/dL 08/27/2023 6:47 AM CDT [facility] Blood VENOUS LINE / Unknown Venipuncture / Unknown 08/27/2023 6:08 AM CDT 08/27/2023 6:17 AM CDT Radha Cabrera MD LAB - BLOOD ORD ERABLES LABORATORY [facility] [address] [facility] Lab (1st floor, no room number) [place] [address], [facility] * (ABNORMAL) UA with Microscopic (08/27/2023 5:59 AM CDT) Color Urine Straw Colorless, Straw, Light Yellow, Yellow 08/27/2023 6:07 AM CDT LABORATORY Appearance Urine Slightly Cloudy(A) Clear 08/27/2023 6:07 AM CDT LABORATORY Glucose Urine Negative Negative mg/dL 08/27/2023 6:07 AM CDT LABORATORY Bilirubin Urine Negative Negative 6:07 AM CDT LABORATORY Ketones Urine Negative Negative mg/dL 08/27/2023 6:07 AM CDT LABORATORY Specific [place] Urine 1.005 1.003 - 1.035 08/27/2023 6:07 AM CDT LABORATORY Blood Urine Negative Negative 08/27/2023 6:07 AM CDT LABORATORY pH Urine 6.5 5.0 - 7.0 08/27/2023 6:07 AM CDT LABORATORY Protein Albumin Urine Negative Negative mg/dL 08/27/2023 6:07 AM CDT [facility] Urobilinogen Urine Normal Normal, 2.0 mg/dL 08/27/2023 6:07 AM CDT [facility] Nitrite Urine Negative Negative 08/27/2023 6:07 AM CDT [facility] Leukocyte Esterase Urine Negative Negative 08/27/2023 6:07 AM CDT [facility] RBC Urine <1 <=2 /HPF 08/27/2023 6:07 AM CDT [facility] LAB[facility] WBC Urine <1 <=5 /HPF 08/27/2023 6:07 AM CDT [facility] LAB[facility] Urine MID-STREAM URINE SPECIMEN / Unknown Non-blood Collection / Unknown 08/27/2023 5:59 AM CDT 08/27/2023 6:03 AM CDT Radha Cabrera MD LAB - URINE ORD [facility] [address] Lab (1st floor, no room number) [place] [address] * EKG 12 lead (08/27/2023 5:52 AM CDT) Systolic Blood Pressure mmHg RADIOLOGY RESULTS Diastolic Blood Pressure mmHg RADIOLOGY RESULTS Ventricular Rate 76 BPM RAD IOLOGY RESULTS Atrial Rate 76 BPM RADIOLOG Y RESULTS UT Interval 144 ms RADIOLOG Y RESULTS QRS Duration 86 ms RADIOLO GY RESULTS QT 368 ms RADIOLOGY RESULTS QTc 414 ms RADIOLOGY RESULTS P Mason 9 degrees RADIOLOGY RESULTS R AXIS 11 degrees RADIOLOGY RESULTS T Mason 30 degrees RADIOLOGY RESULTS Interpretation ECG Sinus rhythm Moderate voltage criteria for LVH, may be normal variant ( R in aVL , Hardin product ) Borderline ECG No previous ECGs available Confirmed by - EMERGENCY ROOM, PHYSICIAN ([id number]), editorial manager TERRENCE JONES ([id number]) on 08/28/2023 7:07:59 AM Also confirmed by - EMERGENCY ROOM, PHYSICIAN ([id number]), editorial manager TERRENCE JONES (1964) ??on 08/28/2023 7:08:15 AM RADIOLOGY RESULTS 08/27/2023 5:52 AM CDT 08/28/2023 7:08 AM CDT Alvaro Ayala MD ECG ORDERABLES RADIOLOGY RESULTS documented in this encounter Visit Diagnoses Diagnosis Hypertension, unspecified type Abdominal pain, epigastric documented in this encounter Administered Medications Inactive Administered Medications - up to 3 most recent administrations Medication Order MAR Action Action Date Dose Rate Site acetaminophen (TYLENOL) tablet 1,000 mg 1,000 mg, Oral, ONCE, On 08/27/23 at 0600, For 1 dose, Maximum acetaminophen dose from all sources = 75 mg/kg/day not to exceed 4 gram $Given 08/27/2023 6:14 AM CDT 1,[address] Scan Flush Intravenous, 100 mL, ONCE, On 08/27/23 at 0710, For 1 dose, This entry is for use by Radiology to intermittently used as a flush in patients receiving a CT scan. $Given 08/27/2023 7:09 AM CDT 65 mLs iopamidol (ISOVUE-370) solution 500 mL 500 mL, Intravenous, ONCE, On 08/27/23 at 0710, For 1 dose $Given 08/27/2023 7:08 AM CDT 100 mLs documented in this encounter Active and Recently Administered Medications Times are shown in CDT. Scheduled Medication Order 08/25/2023 08/26/2023 08/27/2023 acetaminophen (TYLENOL) tablet 1,000 mg (COMPLETED) 1,000 mg, Oral, ONCE, On 08/27/23 at 0600, For 1 dose, Maximum acetaminophen dose from all sources = 75 mg/kg/day not to exceed 4 gram 0614 ($Given - Provi shaylee: Payal Oquendo RN) CT Scan Flush (COMPLETED) Intravenous, 100 mL, ONCE, On 08/27/23 at 0710, For 1 dose, This entry is for use by Radiology to intermittently used as a flush in patients receiving a CT scan. 0709 ($Given - Provi shaylee: Graham Mac) iopamidol (ISOVUE-370) solution 500 mL (COMPLETED) 500 mL, Intravenous, ONCE, On 08/27/23 at 0710, For 1 dose 0708 ($Given - Provi shaylee: Graham Mac) documented in this encounter Care Teams Seasoning Sprayer Relationship Specialty Start Date End Date Kyra Perera [address] [place] [address] PCP - General Physician Hard Tile Setter 03/31/22 Angel Hollins MD [address] [address] Neurology 07/20/23 [place] [address] [place] [address] [address] [place] [address] Physician Hard Tile Setter Physical Medicine and Rehabilitation 07/20/23 Angel Hollins MD [address] [address] Assigned Neuroscience Provider 08/03/23 documented as of this encounter
--- OUTSIDE RECORDS SUMMARY | 2023-09-19 04:53 | XMS_ITS | Encounter Summary ---
Author Organization [place] Address [address] [place] [address] Care Team Providers Care Nurse Sane Name Role Phone Kyra Perera Primary Care Provider [phone] Angel Hollins MD Unavailable Petra Dorado Unavailable [phone] Angel Hollins MD Unavailable [phone] Reason for Visit * Rehab Therapy Integrated Services (Routine) - Authorized Specialty Diagnoses / Procedures Referred By Scott muniz Referred To Contact Diagnoses Scot DAUGHERTY PF RN sent order Procedures PT NEURO EVAL [address] [address] Referral ID Status Reason Start Date Expiration Date V isits Requested Visits Authorized [id number] Authorized 07/18/2023 03/12/2024 365 365 Encounter Details Date Type Department Care Team (Latest Contact Info) Description 08/29/2023 12:45 PM CDT Therapy Visit [address] [address] Ibeth Ellison MD [address] [place] [address] Thuy Morrison, JB [facility] [address] [place] [address] Other speech disturbance (Primary Dx); Dysarthria due to acute stroke (H); Cerebrovascular accident (CVA) due to thrombosis of left middle cerebral artery (H) Social History Tobacco Use Types Packs/Day Years Used Date Smoking Tobacco: Never Assessed PHQ-2 Answer Date Recorded PHQ-2 Score 0 07/25/2023 Adolescent Education Answer Date Record ed Getting School Help Needed Not on file 12/25 Sex and Gender Information Value Date Recorded Sex Assigned at Not on file Gender Identity Not on file Sexual Orientation Not on file documented as of this encounter Progress Notes * Thuy Morrison, JB - 09/08/2023 2:50 PM CDT Outpatient Speech-Language Pathology Discharge Report DISCHARGE Reason for Discharge: Patient has met all goals. Equipment Issued: none Discharge Plan: Patient to continue home program. Referring Provider: Ibeth Ellison 08/29/23 0500 Appointment Info Treating Provider Thuy Morrison MA, CCC-HOT CELL TECHNICIAN Total/Authorized Visits 05/20 - 10th visit note Visits Used 3 Medical Diagnosis Dysarthria , CVA HOT CELL TECHNICIAN Tx Diagnosis dysarthria Quick Adds Certification Progress Note/Certification Start Of Care Date 07/20/23 Onset Of Illness/injury Or Date Of Surgery 06/30/23 Therapy Frequency 1x/week Predicted Duration 4 sessions in 60 day period Certification date from 07/20/23 Certification date to 09/18/23 Progress Note Due Date 08/29/23 (Discharge Report) Subjective Report Subjective Report Pt went to ER on Monday d/t R sided pain and they suspect a bleeding ulcer. She reports improvements with her speech and is ready to discharge today. HOT CELL TECHNICIAN Goal 1 Goal Identifier Goal 1: Intelligibility/strategies Goal Description Patient will implement trained speech production strategies to improve clarity andintelligibility of speech during structured and unstructured speech tasks with less than 4 times requiring repetition for intelligibility during therapy session. Goal Progress 08/29/23-GOAL MET. She is able to complete daily speech exercises and oral ROM exercises to improve her intelligibility. Intelligibility for single words = 100%, sentences of extended length = 100%, conversational speech = 100%. Target Date 09/18/23 Date Met 08/29/23 Education Learner/Method Patient;Family;No Barriers to Learning Education Comments Word finding strategies, speech intell strategies and oral exercises for speech intelligibility. Plan Home program OME, tongues twisters, continued home practice Plan for next session D/C today documented in this encounter Plan of Treatment Upcoming Encounters Date Type Department Care Team (Late st Contact Info) Description 09/19/2023 2:15 PM CDT Therapy Visit [address] [phone] Ibeth Ellison MD [address] [place] [address] [phone] Marquita Trivedi, PT 09/19/2023 3:00 PM CDT Therapy Visit [address] [phone] Ibeth Ellison MD [address] [place] [address] [phone] Gabriella Bailey, OTR [address] [address] 09/21/2023 2:15 PM CDT Therapy Visit [address] [phone] Ibeth Ellison MD [address] [place] [address] [phone] Marquita Trivedi, PT 09/21/2023 3:45 PM CDT Therapy Visit [address] [phone] Ibeth Ellison MD [address] [place] [address] [phone] Dylan Mccann, OT 09/26/2023 9:45 AM CDT Therapy Visit [address] [address] Ibeth Ellison MD [address] [place] [address] Maura Javier, PT [address] 0640[address] 09/26/2023 11:00 AM CDT Therapy Visit [address] [phone] Ibeth Ellison MD [address] [place] [address] Gabriella Bailey, OTR [address] [address] 09/28/2023 10:30 AM CDT Therapy Visit [address] [phone] Ibeth Ellison MD [address] [place] [address] Maura Javier, PT [address] [address] 09/28/2023 11:30 AM CDT Therapy Visit [address] [phone] Ibeth Ellison MD [address] [place] [address] [phone] Dylan Mccann, OT 10/03/2023 9:30 AM CDT Therapy Visit M [address] [address] Ibeth Ellison MD [address] [place] [address] [phone] Gabriella Bailey, OTR [address] [address] 10/03/2023 10:30 AM CDT Therapy Visit [address] [phone] Ibeth Ellison MD [address] [place] [address] [phone] Marquita Trivedi, PT 10/05/2023 9:45 AM CDT Therapy Visit [address] [phone] Ibeth Ellison MD [address] [place] [address] [phone] Maura Javier, PT [address] 059235 10/05/2023 10:45 AM CDT Therapy Visit [address] [phone] Ibeth Ellison MD [address] [place] [address] [phone] Dylan Mccann, OT 10/10/2023 9:30 AM CDT Therapy Visit [address] [phone] Ibeth Ellison MD [address] [place] [address] [phone] Gabriella Bailey, OTR FV [address] [address] 10/10/2023 10:30 AM CDT Therapy Visit [address] [phone] Ibeth Ellison MD [address] [place] [address] [phone] Marquita Trivedi, PT 10/12/2023 9:45 AM CDT Therapy Visit [address] [phone] Ibeth Ellison MD [address] [place] [address] [phone] Maura Javier Ap, PT [address] 159955 10/12/2023 10:45 AM CDT Therapy Visit [address] [phone] Ibeth Ellison MD [address] [place] [address] [phone] Dylan Mccann, OT 10/17/2023 9:30 AM CDT Therapy Visit [address] [phone] Ibeth Ellison MD [address] [place] [address] [phone] Gabriella Bailey, OTR FV [address] [address] 10/17/2023 10:30 AM CDT Therapy Visit [address] [phone] Ibeth Ellison MD [address] [place] [address] [phone] Marquita Trivedi, PT 10/19/2023 10:15 AM CDT Therapy Visit [address] [phone] Ibeth Ellison MD [address] [place] [address] 235115 Annamaria Dennison [address] [address] 10/19/2023 11:15 AM CDT Therapy Visit [address] [phone] Ibeth Ellison MD [address] [place] [address] [phone] Marquita Trivedi, PT 10/24/2023 12:15 PM CDT Therapy Visit [address] [phone] Ibeth Ellison MD [address] [place] [address] [phone] Maura Javier Ap, PT [address] [address] 10/26/2023 11:30 AM CDT Therapy Visit [address] [phone] Ibeth Ellison MD [address] [place] [address] [phone] Dylan Mccann, OT 10/26/2023 12:15 PM CDT Therapy Visit [address] [phone] Ibeth Ellison MD [address] [place] [address] [phone] Maura Javier Ap, PT [address] 159435 10/31/2023 10:15 AM CDT Therapy Visit [address] [phone] Ibeth Ellison MD [address] [place] [address] [phone] Gabriella Bailey, OTR [address] [address] 10/31/2023 11:15 AM CDT Therapy Visit [address] [phone] Ibeth Ellison MD [address] [place] [address] [phone] Marquita Trivedi, PT 11/02/2023 10:00 AM CDT Therapy Visit [address] [phone] Ibeth Ellison MD [address] [place] [address] [phone] Dylan Mccann, OT 11/02/2023 11:15 AM CDT Therapy Visit [address] [phone] Ibeth Ellison MD [address] [place] [address] [phone] Marquita Trivedi, PT 11/07/2023 10:30 AM CDT Therapy Visit [address] [phone] Ibeth Ellison MD [address] [place] [address] [phone] Marquita Trivedi, PT 11/09/2023 10:30 AM CDT Therapy Visit [address] [phone] Ibeth Ellison MD [address] [place] [address] [phone] Marquita Trivedi, PT 11/14/2023 12:15 PM CDT Therapy Visit [address] [address] Ibeth Ellison MD [address] [place] [address] [phone] Maura Javier Ap, PT [address] [phone] 11/16/2023 10:30 AM CDT Therapy Visit [address] [phone] Ibeth Ellison MD [address] [place] [address] [phone] Marquita Trivedi, PT documented as of this encounter Visit Diagnoses Diagnosis Other speech disturbance- Primary Dysarthria due to acute stroke (H) Cerebrovascular accident (CVA) due to thrombosis of left middle cerebral artery (H) documented in this encounter Care Teams Nurse Sane Relationship Specialty Start Date End Date Kyra Perera [address] [place] [address] PCP - General Physician Piece Dyeing Machine Tender 03/31/22 Angel Hollins MD [address] [address] Neurology 07/20/23 Petra Dorado PA 2450 [facility] [address] [place] [address] Physician Piece Dyeing Machine Tender Physical Medicine and Rehabilitation 07/20/23 Angel Hollins MD [address] [address] Assigned Neuroscience Provider 08/03/23 documented as of this encounter
--- OUTSIDE RECORDS SUMMARY | 2023-09-19 04:53 | XMS_ITS | Encounter Summary ---
Author Organization [place] Address [address] [place] [address] Care Team Providers Care Principal Process Engineer Name Role Phone Kyra Perera Primary Care Provider Angel Hollins MD Unavailable Petra Dorado Unavailable [phone] Angel Hollins MD Unavailable Encounter Details Date Type Department Care Team (Latest Contact Info) Description 08/29/2023 Travel Social History Tobacco Use Types Packs/Day [...] Description 09/19/2023 2:15 PM CDT Therapy Visit [facility] [address] [address] Ibeth Ellison MD [address] [place] [address] Marquita Trivedi, JESSICA 09/19/2023 3:00 PM CDT Therapy Visit [address] [phone] Ibeth Ellison MD [address] [place] [address] [phone] Gabriella Bailey, OTR [address] [address] 09/21/2023 2:15 PM CDT Therapy Visit [address] [phone] Ibeth Ellison MD [address] [place] [address] 299325 Marquita Trivedi, PT 09/21/2023 3:45 PM CDT Therapy Visit [address] [phone] Ibeth Ellison MD [address] [place] [address] [phone] Dylan Mccann, OT 09/26/2023 9:45 AM CDT Therapy Visit [address] [address] Ibeth Ellison MD [address] [place] [address] 636115 Maura Javier, PT [address] 333455 09/26/2023 11:00 AM CDT Therapy Visit [address] [phone] Ibeth Ellison MD [address] [place] [address] Gabriella Bailey, OTR [address] [address] 09/28/2023 10:30 AM CDT Therapy Visit [address] [phone] Ibeth Ellison MD [address] [place] [address] [phone] Maura Javier, PT [address] [phone] 09/28/2023 11:30 AM CDT Therapy Visit [address] [phone] Ibeth Ellison MD [address] [place] [address] [phone] Dylan Mccann, OT 10/03/2023 9:30 AM CDT Therapy Visit [address] [phone] Ibeth Ellison MD [address] [place] [address] [phone] Gabriella Bailey, OTR [address] [address] 10/03/2023 10:30 AM CDT Therapy Visit [address] [phone] Ibeth Ellison MD [address] [place] [address] [phone] Marquita Trievdi, PT 10/05/2023 9:45 AM CDT Therapy Visit [address] [phone] Ibeth Ellison MD [address] [place] [address] [phone] Maura Javier Ap, PT [address] [phone] 10/05/2023 10:45 AM CDT Therapy Visit [address] [phone] Ibeth Ellison MD [address] [place] [address] [phone] Dylan Mccann, OT 10/10/2023 9:30 AM CDT Therapy Visit [address] [phone] Ibeth Ellison MD [address] [place] [address] [phone] Gabriella Bailey, OTR [address] [address] 10/10/2023 10:30 AM CDT Therapy Visit [address] [phone] Ibeth Ellison MD [address] [place] [address] [phone] Marquita Trivedi, PT 10/12/2023 9:45 AM CDT Therapy Visit [address] [phone] Ibeth Ellison MD [address] [place] [address] Maura Javier Ap, PT [address] [place] [address] 10/12/2023 10:45 AM CDT Therapy Visit [address] [phone] Ibeth Ellison MD [address] [place] [address] [phone] Dylan Mccann, OT 10/17/2023 9:30 AM CDT Therapy Visit [address] [address] Ibeth Ellison MD [address] [place] [address] [phone] Gabriella Bailey, OTR [address] [address] 10/17/2023 10:30 AM CDT Therapy Visit [address] [address] Ibeth Ellison MD [address] [place] [address] [phone] Marquita Trivedi, PT 10/19/2023 10:15 AM CDT Therapy Visit [address] [phone] Ibeth Ellison MD [address] [place] [address] [phone] Annamaria Dennison [address] [address] 10/19/2023 11:15 AM CDT Therapy Visit [address] [phone] Ibeth Ellison MD [address] [place] [address] [phone] Marquita Trivedi, PT 10/24/2023 12:15 PM CDT Therapy Visit [address] [phone] Ibeth Ellison MD [address] [place] [address] [phone] Maura Javier, PT [address] [phone] 10/26/2023 11:30 AM CDT Therapy Visit [address] [phone] Ibeth Ellison MD [address] [place] [address] Dylan Mccann, OT 10/26/2023 12:15 PM CDT Therapy Visit [address] [phone] Ibeth Ellison MD [address] [place] [address] [phone] Maura Javier, PT [address] 936415 10/31/2023 10:15 AM CDT Therapy Visit [address] [phone] Ibeth Ellison MD [address] [place] [address] [phone] Gabriella Bailey, OTR [address] [address] 10/31/2023 11:15 AM CDT Therapy Visit [address] [phone] Ibeth Ellison MD [address] [place] [address] [phone] Marquita Trivedi, PT 11/02/2023 10:00 AM CDT Therapy Visit [address] [address] Ibeth Ellison MD [address] [place] [address] [phone] Dylan Mccann, OT 11/02/2023 11:15 AM CDT Therapy Visit [address] [phone] Ibeth Ellison MD [address] [place] [address] [phone] Marquita Trivedi, PT 11/07/2023 10:30 AM CDT Therapy Visit [address] [phone] Ibeth Ellison MD [address] [place] [address] [phone] Marquita Trivedi, PT 11/09/2023 10:30 AM CDT Therapy Visit [address] [phone] Ibeth Ellison MD [address] [place] [address] 529165 Marquita Trivedi, PT 11/14/2023 12:15 PM CDT Therapy Visit [address] [phone] Ibeth Ellison MD [address] [place] [address] [phone] Maura Javier Ap, PT [address] [place], [place] 753185 11/16/2023 10:30 AM CDT Therapy Visit [address] [phone] Ibeth Ellison MD [address] [place] [address] [phone] Marquita Trivedi, PT documented as of this encounter Visit Diagnoses Not on filedocumented in this encounter Care Teams Principal Process Engineer Relationship Specialty Start Date End Date Kyra Perera [address] [place] [address] PCP - General Physician Can Filling Room Sweeper 03/31/22 Angel Hollins MD 909 [facility] [id number] [place], [place] [phone] Neurology 07/20/23 Petra Dorado PA 2450 [facility] [address] [place], [place] 332704 Physician Can Filling Room Sweeper Physical Medicine and Rehabilitation 07/20/23 Angel Hollins MD 9 [facility], [place] [address] Assigned Neuroscience Provider 08/03/23 documented as of this encounter
--- OUTSIDE RECORDS SUMMARY | 2023-09-19 04:53 | XMS_ITS | Encounter Summary ---
Author Organization [place] [facility] Address [address] [place] [address] 48875 Care Team Providers Care Risk Management Director Name Role Phone Kyra Perera Primary Care Provider Angel Hollins MD Unavailable [phone] Petra Dorado Unavailable [phone] Angel Hollins MD Unavailable Encounter Details Date Type Department Care Team (Latest Contact Info) Description 08/31/2023 Travel Social History Tobacco Use Types Packs/Day [...] Description 09/19/2023 2:15 PM CDT Therapy Visit [facility] [address] [address] Ibeth Ellison MD [address] [place] [address] Marquita Trivedi, JESSICA 09/19/2023 3:00 PM CDT Therapy Visit [address] [phone] Ibeth Ellison MD [address] [place] [address] [phone] Gabirella Bailey, OTR [address] [address] 09/21/2023 2:15 PM CDT Therapy Visit [address] [phone] Ibeth Ellison MD [address] [place] [address] [phone] Marquita Trivedi, PT 09/21/2023 3:45 PM CDT Therapy Visit [address] [phone] Ibeth Ellison MD [address] [place] [address] [phone] Dylan Mccann, OT 09/26/2023 9:45 AM CDT Therapy Visit [address] [address] Ibeth Ellison MD [address] [place] [address] 780655 Maura Javier, PT [address] 001955 09/26/2023 11:00 AM CDT Therapy Visit [address] [phone] Ibeth Ellison MD [address] [place] [address]85 Gabriella Bailey, OTR [address] [address] 09/28/2023 10:30 AM CDT Therapy Visit [address] [phone] Ibeth Ellison MD [address] [place] [address] [phone] Maura Javier, PT [address] 724435 09/28/2023 11:30 AM CDT Therapy Visit [address] [phone] Ibeth Ellison MD [address] [place] [address] [phone] Dylan Mccann, OT 10/03/2023 9:30 AM CDT Therapy Visit [address] [phone] Ibeth Ellison MD [address] [place] [address] [phone] Gabriella Bailey, OTR [address] [address] 10/03/2023 10:30 AM CDT Therapy Visit [address] [phone] Ibeth Ellison MD [address] [place] [address] [phone] Marquita Trivedi, PT 10/05/2023 9:45 AM CDT Therapy Visit [address] [phone] Ibeth Ellison MD [address] [place] [address] [phone] Maura Javier Ap, PT [address] [phone] 10/05/2023 10:45 AM CDT Therapy Visit [address] [phone] Ibeth Ellison MD [address] [place] [address] [phone] Dylan Mccann, OT 10/10/2023 9:30 AM CDT Therapy Visit [address] [phone] Ibeth Ellison MD [address] [place] [address] [phone] Gabriella Bailey, OTR [address] [address] 10/10/2023 10:30 AM CDT Therapy Visit [address] [phone] Ibeth Ellison MD [address] [place] [address] [phone] Marquita Trivedi, PT 10/12/2023 9:45 AM CDT Therapy Visit [address] [phone] Ibeth Ellison MD [address] [place] [address]90 Maura Javier Ap, PT [address] [place] [address] 10/12/2023 10:45 AM CDT Therapy Visit [address] [phone] Ibeth Ellison MD [address] [place] [address] [phone] Dylan Mccann, OT 10/17/2023 9:30 AM CDT Therapy Visit [address] [address] Ibeth Ellison MD [address] [place] [address] [phone] Gabriella Bailey, OTR [address] [address] 10/17/2023 10:30 AM CDT Therapy Visit [address] [address] Ibeth Ellison MD [address] [place] [address] [phone] Marquita Trivedi, PT 10/19/2023 10:15 AM CDT Therapy Visit [address] [phone] Ibeth Ellison MD [address] [place] [address] [phone] Annamaria Dennison [address] [address] 10/19/2023 11:15 AM CDT Therapy Visit [address] [phone] Ibeth Ellison MD [address] [place] [address] [phone] Marquita Trivedi, PT 10/24/2023 12:15 PM CDT Therapy Visit [address] [phone] Ibeth Ellison MD [address] [place] [address] [phone] Maura Javier, PT [address] 785075 10/26/2023 11:30 AM CDT Therapy Visit [address] [phone] Ibeth Ellison MD [address] [place] [address] Dylan Mccann, OT 10/26/2023 12:15 PM CDT Therapy Visit [address] [phone] Ibeth Ellison MD [address] [place] [address] [phone] Maura Javier, PT [address] 455595 10/31/2023 10:15 AM CDT Therapy Visit [address] [address] Ibeth Ellison MD [address] [place] [address] [phone] Gabriella Bailey, OTR [address] [address] 10/31/2023 11:15 AM CDT Therapy Visit [address] [phone] Ibeth Ellison MD [address] [place] [address] 149005 Marquita Trivedi, PT 11/02/2023 10:00 AM CDT Therapy Visit [address] [address] Ibeth Ellison MD [address] [place] [address] [phone] Dylan Mccann, OT 11/02/2023 11:15 AM CDT Therapy Visit [address] [address] Ibeth Ellison MD [address] [place] [address] [phone] Marquita Trivedi, PT 11/07/2023 10:30 AM CDT Therapy Visit [address] 85228-905314 Ibeth Ellison MD [address] [place] [address] 459165 Marquita Trivedi, PT 11/09/2023 10:30 AM CDT Therapy Visit [address] [phone] Ibeth Ellison MD [address] [place] [address] [phone] Marquita Trivedi, PT 11/14/2023 12:15 PM CDT Therapy Visit [address] [phone] Ibeth Ellison MD [address] [place] [address] [phone] Maura Javier Ap, PT [address] [place], [place] 558065 11/16/2023 10:30 AM CDT Therapy Visit [address] [phone] Ibeth Ellison MD [address] [place] [address] [phone] Marquita Trivedi, PT documented as of this encounter Visit Diagnoses Not on filedocumented in this encounter Care Teams Risk Management Director Relationship Specialty Start Date End Date Kyra Perera [address] [place] [address] 51798 PCP - General Physician Network Account Manager 03/31/22 Angel Hollins MD 909 [facility] [id number] [place], [place] [id number] Neurology 07/20/23 Petra Dorado PA 2450 [facility] 213 [place], [place] 173134 Physician Network Account Manager Physical Medicine and Rehabilitation 07/20/23 Angel Hollins MD 9 [facility]2121[place], [place] [address] Assigned Neuroscience Provider 08/03/23 documented as of this encounter
--- OUTSIDE RECORDS SUMMARY | 2023-09-19 04:53 | XMS_ITS | Encounter Summary ---
Author Organization [facility] Address [address] [place] [address] 26837 Care Team Providers Care Tire Cord Weaver Name Role Phone Kyra Perera Primary Care Provider Angel Hollins MD Unavailable Petra Dorado Unavailable [phone] Angel Hollins MD Unavailable Encounter Details Date Type Department Care Team (Latest Contact Info) Description 08/27/2023 Travel Social History Tobacco Use Types Packs/Day [...] Description 09/19/2023 2:15 PM CDT Therapy Visit [facility] [address] [address] Ibeth Ellison MD [address] [place] [address] Marquita Trivedi, JESSICA 09/19/2023 3:00 PM CDT Therapy Visit [address] 97188-000314 Ibeth Ellison MD [address] [place] [address] [phone] Gabriella Bailey, OTR [address] [address] 09/21/2023 2:15 PM CDT Therapy Visit [address] [phone] Ibeth Ellison MD [address] [place] [address] [phone] Marquita Trivedi, PT 09/21/2023 3:45 PM CDT Therapy Visit [address] [phone] Ibeth Ellison MD [address] [place] [address] [phone] Dylan Mccann, OT 09/26/2023 9:45 AM CDT Therapy Visit [address] [address] Ibeth Ellison MD [address] [place] [address] 827655 Maura Javier, PT [address] 118005 09/26/2023 11:00 AM CDT Therapy Visit [address] [phone] Ibeth Ellison MD [address] [place] [address] 15108 Gabriella Bailey, OTR [address] [address] 09/28/2023 10:30 AM CDT Therapy Visit [address] [phone] Ibeth Ellison MD [address] [place] [address] [phone] Maura Javier, PT [address] 340835 09/28/2023 11:30 AM CDT Therapy Visit [address] [phone] Ibeth Ellison MD [address] [place] [address] [phone] Dylan Mccann, OT 10/03/2023 9:30 AM CDT Therapy Visit [address] [phone] Ibeth Ellison MD [address] [place] [address] [phone] Gabriella Bailey, OTR [address] [address] 10/03/2023 10:30 AM CDT Therapy Visit [address] [phone] Ibeth Ellison MD [address] [place] [address] [phone] Marquita Trivedi, PT 10/05/2023 9:45 AM CDT Therapy Visit [address] [phone] Ibeth Ellison MD [address] [place] [address] [phone] Maura Javier Ap, PT [address] [phone] 10/05/2023 10:45 AM CDT Therapy Visit [address] [phone] Ibeth Ellison MD [address] [place] [address] [phone] Dylan Mccann, OT 10/10/2023 9:30 AM CDT Therapy Visit [address] [phone] Ibeth Ellison MD [address] [place] [address] [phone] Gabriella Bailey, OTR [address] [address] 10/10/2023 10:30 AM CDT Therapy Visit [address] [phone] Ibeth Ellison MD [address] [place] [address] [phone] Marquita Trivedi, PT 10/12/2023 9:45 AM CDT Therapy Visit [address] [phone] Ibeth Ellison MD [address] [place] [address] 31112 Maura Javier Ap, PT [address] [place] [address] 10/12/2023 10:45 AM CDT Therapy Visit [address] [phone] Ibeth Ellison MD [address] [place] [address] [phone] Dylan Mccann, OT 10/17/2023 9:30 AM CDT Therapy Visit [address] [address] Ibeth Ellison MD [address] [place] [address] [phone] Gabriella Bailey, OTR [address] [address] 10/17/2023 10:30 AM CDT Therapy Visit [address] [address] Ibeth Ellison MD [address] [place] [address] [phone] Marquita Trivedi, PT 10/19/2023 10:15 AM CDT Therapy Visit [address] [phone] Ibeth Ellison MD [address] [place] [address] [phone] Annamaria Dennison [address] [address] 10/19/2023 11:15 AM CDT Therapy Visit [address] [phone] Ibeth Ellison MD [address] [place] [address] 519385 Marquita Trivedi, PT 10/24/2023 12:15 PM CDT Therapy Visit [address] [phone] Ibeth Ellison MD [address] [place] [address] [phone] Maura Javier, PT [address] 999035 10/26/2023 11:30 AM CDT Therapy Visit [address] [phone] Ibeth Ellison MD [address] [place] [address] 66996 Dylan Mccann, OT 10/26/2023 12:15 PM CDT Therapy Visit [address] [phone] Ibeth Ellison MD [address] [place] [address] [phone] Maura Javier, PT [address] 099255 10/31/2023 10:15 AM CDT Therapy Visit [address] [address] Ibeth Ellison MD [address] [place] [address] [phone] Gabriella Bailey, OTR [address] [address] 10/31/2023 11:15 AM CDT Therapy Visit [address] [phone] Ibeth Ellison MD [address] [place] [address] 605135 Marquita Trivedi, PT 11/02/2023 10:00 AM CDT Therapy Visit [address] [address] Ibeth Ellison MD [address] [place] [address] 750125 Dylan Mccann, OT 11/02/2023 11:15 AM CDT Therapy Visit [address] [address] Ibeth Ellison MD [address] [place] [address] [phone] Marquita Trivedi, PT 11/07/2023 10:30 AM CDT Therapy Visit [address] [phone] Ibeth Ellison MD [address] [place] [address] [phone] Marquita Trivedi, PT 11/09/2023 10:30 AM CDT Therapy Visit [address] [phone] Ibeth Ellison MD [address] [place] [address] 404165 Marquita Trivedi, PT 11/14/2023 12:15 PM CDT Therapy Visit [address] [phone] Ibeth Ellison MD [address] [place] [address] [phone] Maura Javier Ap, PT [address] [place], [place] 604605 11/16/2023 10:30 AM CDT Therapy Visit [address] [phone] Ibeth Ellison MD [address] [place] [address] [phone] Marquita Trivedi, PT documented as of this encounter Visit Diagnoses Not on filedocumented in this encounter Care Teams Tire Cord Weaver Relationship Specialty Start Date End Date Kyra Perera [address] [place] [address] 21022 PCP - General Physician Taxicab Driver 03/31/22 Angel Hollins MD 9[address] [facility] [id number] [place], [place] [id number] Neurology 07/20/23 Petra Dorado PA 2450 [facility] 213 [place], [place] 956354 Physician Taxicab Driver Physical Medicine and Rehabilitation 07/20/23 Angel Hollins MD 9 [facility]2121[place], [place] [address] Assigned Neuroscience Provider 08/03/23 documented as of this encounter
--- OUTSIDE RECORDS SUMMARY | 2023-09-19 04:53 | XMS_ITS | Encounter Summary ---
Author Organization [facility] Address [address] [place] [address] 15959 Care Team Providers Care Dynamite Packing Machine Operator Name Role Phone Kyra Perera Primary Care Provider [phone] Angel Hollins MD Unavailable Petra Dorado Unavailable [phone] Angel Hollins MD Unavailable Reason for Visit * Rehab Therapy Integrated Services (Routine) - Authorized Specialty Diagnoses / Procedures Referred By Scott t Referred To Contact Diagnoses Scot DAUGHERTY PF RN sent order Procedures PT NEURO EVAL [address] [address] Referral ID Status Reason Start Date Expiration Date V isits Requested Visits Authorized [id number] Authorized 07/18/2023 03/12/2024 365 365 Encounter Details Date Type Department Care Team (Latest Contact Info) Description 08/31/2023 3:00 PM CDT Therapy Visit [address] [address] Ibeth Ellison MD [address] [place] [address] [phone] Marquita Trivedi, PT Cerebrovascular accident (CVA) due [...] on file documented as of this encounter Patient Instructions * Patient Instructions* Marquita Trivedi, PT - 08/31/2023 3:00 PM CDT 08/31/23 Intervals are 3 minutes each with breaks between. repeated 2 sets. x8 exercises = 48 minutes/day. Setup and equipment includes stairs and counter/railing, obstacles such as pillows, mop/broom handle, shoe/tissue box to step over. 1) Sidestepping in a squat position with band around your thighs feet in a ???crabwalk??? with handsupport from counter. 2) Negotiate obstacles forwards <>backwards. 3) Negotiate obstacles sideways with left hand on the counter. 4) Stairs: forward stepping with 1 or 2 hand on the railing at your side 5) heel tap to the first step then second step then leg straight behind your with toes on the floor, hold the railing if you need to for balance, when standing on right leg focus on soften knee 6) monster walks with red theraband around ankles - HIGH knee lifts BIG steps forward and back 7) repeated sit to stands with red band below your knees 8) ankle movements sitting documented in this encounter Plan of Treatment Upcoming Encounters Date Type Department Care Team (Late st Contact Info) Description 09/19/2023 2:15 PM CDT Therapy Visit [facility] [address] [phone] Ibeth Ellison MD 420 [place] [address] Marquita Trivedi, PT 09/19/2023 3:00 PM CDT Therapy Visit [address] [phone] Ibeth Ellison MD [address] [place] [address] [phone] Gabriella Bailey, OTR [address] [address] 09/21/2023 2:15 PM CDT Therapy Visit [address] [phone] Ibeth Ellison MD [address] [place] [address] 135405 Marquita Trivedi, PT 09/21/2023 3:45 PM CDT Therapy Visit [address] [phone] Ibeth Ellison MD [address] [place] [address] [phone] Dylan Mccann, OT 09/26/2023 9:45 AM CDT Therapy Visit [address] [phone] Ibeth Ellison MD [address] [place] [address] 132245 Maura Javier, PT [address] 012005 09/26/2023 11:00 AM CDT Therapy Visit [address] [phone] Ibeth Ellison MD [address] [place] [address] 35990 Gabriella Bailey, OTR [address] [address] 09/28/2023 10:30 AM CDT Therapy Visit [address] [phone] Ibeth Ellison MD [address] [place] [address] 13315 Maura Javier Ap, PT [address] 071795 09/28/2023 11:30 AM CDT Therapy Visit [address] [phone] Ibeth Ellison MD [address] [place] [address] [phone] Dylan Mccann, OT 10/03/2023 9:30 AM CDT Therapy Visit [address] [phone] Ibeth Ellison MD [address] [place] [address] 120095 Gabriella Bailey, OTR FV [address] [address] 10/03/2023 10:30 AM CDT Therapy Visit [address] [phone] Ibeth Ellison MD [address] [place] [address] 479415 Marquita Trivedi, PT 10/05/2023 9:45 AM CDT Therapy Visit [address] [phone] Ibeth Ellison MD [address] [place] [address] [phone] Maura Javier Ap, PT [address] 739955 10/05/2023 10:45 AM CDT Therapy Visit [address] [phone] Ibeth Ellison MD [address] [place] [address] [phone] Dylan Mccann, OT 10/10/2023 9:30 AM CDT Therapy Visit [address] [phone] Ibeth Ellison MD [address] [place] [address] [phone] Gabriella Bailey, OTR [address] 217387 10/10/2023 10:30 AM CDT Therapy Visit [address] [phone] Ibeth Ellison MD [address] [place] [address] [phone] Marquita Trivedi, PT 10/12/2023 9:45 AM CDT Therapy Visit [address] [phone] Ibeth Ellison MD [address] [place] [address] [phone] Maura Javier Ap, PT [address] [address] 10/12/2023 10:45 AM CDT Therapy Visit [address] [phone] Ibeth Ellison MD [address] [place] [address] [phone] Dylan Mccann, OT 10/17/2023 9:30 AM CDT Therapy Visit [address] [phone] Ibeth Ellison MD [address] [place] [address] [phone] Gabriella Bailey, OTR [address] [address] 10/17/2023 10:30 AM CDT Therapy Visit [address] [phone] Ibeth Ellison MD [address] [place] [address] [phone] Marquita Trivedi, PT 10/19/2023 10:15 AM CDT Therapy Visit [address] [phone] Ibeth Ellison MD [address] [place] [address] 116315 Annamaria Dennison [address] [address] 10/19/2023 11:15 AM CDT Therapy Visit [address] [phone] Ibeth Ellison MD [address] [place] [address] [phone] Marquita Trivedi, PT 10/24/2023 12:15 PM CDT Therapy Visit [address] [phone] Ibeth Ellison MD [address] [place] [address] [phone] Maura Javier, PT [address] [address] 10/26/2023 11:30 AM CDT Therapy Visit [address] [phone] Ibeth Ellison MD [address] [place] [address] [phone] Dylan Mccann, OT 10/26/2023 12:15 PM CDT Therapy Visit [address] [phone] Ibeth Ellison MD [address] [place] [address] [phone] Maura Javier, PT [address] [address] 10/31/2023 10:15 AM CDT Therapy Visit [address] [phone] Ibeth Ellison MD [address] [place] [address] [phone] Gabriella Bailey, OTR [address] [address] 10/31/2023 11:15 AM CDT Therapy Visit [address] [phone] Ibeth Ellison MD [address] [place] [address] [phone] Marquita Trivedi, PT 11/02/2023 10:00 AM CDT Therapy Visit [address] [phone] Ibeth Ellison MD [address] [place] [address] 433165 Dylan Mccann, OT 11/02/2023 11:15 AM CDT Therapy Visit [address] [phone] Ibeth Ellison MD [address] [place] [address] [phone] Marquita Trivedi, PT 11/07/2023 10:30 AM CDT Therapy Visit [address] [address] Ibeth Ellison MD [address] [place] [address] 188725 Marquita Trivedi, PT 11/09/2023 10:30 AM CDT Therapy Visit [address] [phone] Ibeth Ellison MD [address] [place] [address] [phone] Marquita Trivedi, JESSICA 11/14/2023 12:15 PM CDT Therapy Visit [address] [phone] Ibeth Ellison MD [address] [place] [address] [phone] Maura Javier Ap, PT [address] [place], [place] 723795 11/16/2023 10:30 AM CDT Therapy Visit [address] [phone] Ibeth Ellison MD [address] [place] [address] [phone] Marquita Trivedi, JESSICA documented as of this encounter Visit Diagnoses Diagnosis Cerebrovascular accident (CVA) due to thrombosis of left middle cerebral artery (H)- Primary documented in this encounter Care Teams Dynamite Packing Machine Operator Relationship Specialty Start Date End Date Kyra Perera [address] [place] [address] PCP - General Physician Telephonic Rn 03/31/22 Angel Hollins MD 909 [facility] [id number] [place] [address] Neurology 07/20/23 Petra Dorado PA [address] [place] [address] [address] [place] [address] Physician Telephonic Rn Physical Medicine and Rehabilitation 07/20/23 Angel Hollins MD 909 [facility] [id number] [place] [address] Assigned Neuroscience Provider 08/03/23 documented as of this encounter
--- OUTSIDE RECORDS SUMMARY | 2023-09-19 04:53 | XMS_ITS | Encounter Summary ---
Author Organization [facility] Address [address] [place] [address] Care Team Providers Care Clock Smith Name Role Phone Kyra Perera Primary Care Provider [phone] Angel Hollins MD Unavailable [phone] Petra Dorado Unavailable [phone] Angel Hollins MD Unavailable [phone] Reason for Visit * Rehab Therapy Integrated Services (Routine) - Authorized Specialty Diagnoses / Procedures Referred By Scott muniz Referred To Contact Diagnoses Scot DAUGHERTY PF RN sent order Procedures PT NEURO EVAL [address] [address] Referral ID Status Reason Start Date Expiration Date V isits Requested Visits Authorized [id number] Authorized 07/18/2023 03/12/2024 365 365 Encounter Details Date Type Department Care Team (Late st Contact Info) Description 08/29/2023 3:00 PM CDT Therapy Visit [address] [address] Ibeth Ellison MD [address] [place] [address] [phone] Gabriella Bailey, OTTomi [address] [address] Cerebrovascular accident (CVA) due to thrombosis of [...] Description 09/19/2023 2:15 PM CDT Therapy Visit [address] [phone] Ibeth Ellison MD [address] [place] [address] [phone] Marquita Trivedi, PT 09/19/2023 3:00 PM CDT Therapy Visit [address] [phone] Ibeth Ellison MD [address] [place] [address] [phone] Gabriella Bailey, OTR [address] [address] 09/21/2023 2:15 PM CDT Therapy Visit [address] [phone] Ibeth Ellison MD [address] [place] [address] [phone] Marquita Trivedi, PT 09/21/2023 3:45 PM CDT Therapy Visit [address] [phone] Ibeth Ellison MD [address] [place] [address] [phone] Dylan Mccann OT 09/26/2023 9:45 AM CDT Therapy Visit [address] [phone] Ibeth Ellison MD [address] [place] [address] 436605 Maura Javier, PT [address] 710855 09/26/2023 11:00 AM CDT Therapy Visit [address] [phone] Ibeth Ellison MD [address] [place] [address] 277305 Gabriella Bailey, OTR [address] [address] 09/28/2023 10:30 AM CDT Therapy Visit [address] [phone] Ibeth Ellison MD [address] [place] [address] Maura Javier, PT [address] [id number] 09/28/2023 11:30 AM CDT Therapy Visit [address] [phone] Ibeth Ellison MD [address] [place] [address] [phone] Dylan Mccann, OT 10/03/2023 9:30 AM CDT Therapy Visit [address] [phone] Ibeth Ellison MD [address] [place] [address] [phone] Gabriella Bailey, OTR [address] [address] 10/03/2023 10:30 AM CDT Therapy Visit [address] [phone] Ibeth Ellison MD [address] [place] [address] [phone] Marquita Trivedi, PT 10/05/2023 9:45 AM CDT Therapy Visit [address] [phone] Ibeth Ellison MD [address] [place] [address] [phone] Maura Javier Ap, PT [address] 816055 10/05/2023 10:45 AM CDT Therapy Visit [address] [phone] Ibeth Ellison MD [address] [place] [address] [phone] Dylan Mccann, OT 10/10/2023 9:30 AM CDT Therapy Visit [facility] [address] [address] Ibeth Ellison MD [address] [place] [address] [phone] Gabriella Bailey, OTR [address] [address] 10/10/2023 10:30 AM CDT Therapy Visit [address] [phone] Ibeth Ellison MD [address] [place] [address] [phone] Marquita Trivedi, PT 10/12/2023 9:45 AM CDT Therapy Visit [address] [phone] Ibeth Ellison MD [address] [place] [address] [phone] Maura Javier Ap, PT [address] 709875 10/12/2023 10:45 AM CDT Therapy Visit [address] [phone] Ibeth Ellison MD [address] [place] [address] [phone] Dylan Mccann, OT 10/17/2023 9:30 AM CDT Therapy Visit [address] [phone] Ibeth Ellison MD [address] [place] [address] [phone] Gabriella Bailey, OTR FV [address] [address] 10/17/2023 10:30 AM CDT Therapy Visit [address] [phone] Ibeth Ellison MD [address] [place] [address] [phone] Marquita Trivedi, PT 10/19/2023 10:15 AM CDT Therapy Visit [address] [phone] Ibeth Ellison MD [address] [place] [address] [phone] Annamaria Dennison [address] [address] 10/19/2023 11:15 AM CDT Therapy Visit [address] [phone] Ibeth Ellison MD [address] [place] [address] 137155 Marquita Trivedi, PT 10/24/2023 12:15 PM CDT Therapy Visit [address] [phone] Ibeth Ellison MD [address] [place] [address] [phone] Maura Javier Ap, PT [address] 311655 10/26/2023 11:30 AM CDT Therapy Visit [address] [phone] Ibeth Ellison MD [address] [place] [address] 606215 Dylan Mccann, OT 10/26/2023 12:15 PM CDT Therapy Visit [address] [phone] Ibeth Ellison MD [address] [place] [address] [phone] Maura Javier Ap, PT [address] 913715 10/31/2023 10:15 AM CDT Therapy Visit [address] [phone] Ibeth Ellison MD [address] [place] [address] 344255 Gabriella Bailey, OTR [address] [address] 10/31/2023 11:15 AM CDT Therapy Visit [address] [phone] Ibeth Ellison MD [address] [place] [address] [phone] Marquita Trivedi, PT 11/02/2023 10:00 AM CDT Therapy Visit [address] [phone] Ibeth Ellison MD [address] [place] [address] 8[address] Dylan Mccann, OT 11/02/2023 11:15 AM CDT Therapy Visit [address] [phone] Ibeth Ellison MD [address] [place] [address] 378755 Marquita Trivedi, PT 11/07/2023 10:30 AM CDT Therapy Visit [address] [address] Ibeth Ellison MD [address] [place] [address] [phone] Marquita Trivedi, PT 11/09/2023 10:30 AM CDT Therapy Visit [address] [phone] Ibeth Ellison MD [address] [place] [address] [phone] Marquita Trivedi, PT 11/14/2023 12:15 PM CDT Therapy Visit [address] [address] Ibeth Ellison MD [address] [place] [address] 529695 Maura Javier Ap, PT [address] 594675 11/16/2023 10:30 AM CDT Therapy Visit [address] [phone] Ibeth Ellison MD [address] [place] [address] 101525 Marquita Trivedi PT documented as of this encounter Visit Diagnoses Diagnosis Cerebrovascular accident (CVA) due to thrombosis of left middle cerebral artery (H)- Primary documented in this encounter Care Teams Clock Smith Relationship Specialty Start Date End Date Kyra Perera [address] [place] [address] 80104 PCP - General Physician Assistant Credit Manager 03/31/22 Angel Hollins MD [address] [place] [address] Neurology 07/20/23 Petra Dorado PA [address] [place] [address] [address] Physician Assistant Credit Manager Physical Medicine and Rehabilitation 07/20/23 Angel Hollins MD [address] [address] Assigned Neuroscience Provider 08/03/23 documented as of this encounter
--- OUTSIDE RECORDS SUMMARY | 2023-09-19 04:53 | XMS_ITS | Encounter Summary ---
Author Organization [facility] Address [address] [place] [address] 57[address] Care Team Providers Care Abstract Writer Name Role Phone Kyra Perera Arabella Primary Care Provider [phone] Angel Hollins MD Unavailable Petra Dorado Unavailable [phone] Angel Hollins MD Unavailable [phone] Reason for Visit * Rehab Therapy Integrated Services (Routine) - Authorized Specialty Diagnoses / Procedures Referred By Scott muniz Referred To Contact Diagnoses Scot DAUGHERTY PF RN sent order Procedures PT NEURO EVAL [address] [address] Referral ID Status Reason Start Date Expiration Date V isits Requested Visits Authorized [id number] Authorized 07/18/2023 03/12/2024 365 365 Encounter Details Date Type Department Care Team (Latest Contact Info) Description 08/31/2023 2:15 PM CDT Therapy Visit [address] [address] Ibeth Ellison MD [address] [place] [address] [phone] Dylan Mccann, OT Cerebrovascular accident (CVA) due [...] as of this encounter Progress Notes * Dylan Mccann OT - 08/31/2023 4:37 PM CDT 08/31/23 0500 Appointment Info Treating Provider Dylan Mccann OTR/L Visits Used Visit 12/20-Medicare for supplament Medical Diagnosis Cerebrovascular accident (CVA) due to thrombosis of left middle cerebral artery OT Tx Diagnosis Activity of daily living alteration Precautions/Limitations falls, R caitlin/shoulder subluxation Quick Add Certification Progress Note/Certification Start Of Care Date 07/20/23 Onset of Illness/Injury or Date of Surgery 06/30/23 Therapy Frequency 2x/week decreasing frequency as clinically indicated/necessary Predicted Duration up to 90 days Certification date from 07/20/23 Certification date to 10/17/23 KX Modifier Statement I certify the need for these services furnished under this plan of treatment and while under my care. (Physician co-signature of this document indicates review and certificationof the therapy plan) Progress Note Due Date (every 10th visit) Goals OT Goals 1;2;3;4;5;6;7;8 OT Goal 1 Goal Identifier fatigue management Goal Description Pt will demonstrate at least 3 energy conservation strategies (e.g. pacing, planning, prioritizing, sleep hygiene, etc.) to facilitate improved fatigue management with ADL/IADL tasks(e.g. laundry, building/handiwork, meal preparation, walking/exercise). Rationale In order to maximize safety and independence with ADL/IADLs Goal Progress Pt able to manage daily activities with good energy conservation. GOAL MET. Target Date 10/17/23 Date Met 08/31/23 OT Goal 2 Goal Identifier R UE function Goal Description Patient to demonstrate functional tasks with 50% use of R UE as gross stabilizer or gross assist for increased ADL/IADL independence and closer return to prior level of function. Rationale In order to maximize safety and independence with ADL/IADLs Goal Progress progressing, variable performance at this time - improving. Continue Target Date 10/17/23 OT Goal 3 Goal Identifier home program Goal Description Pt to complete invidualized HEP including ROM, WBing for tone management, NMES if indicated, and progressing to strength training to maximize functional use of R UE during daily living tasks. Rationale In order to maximize safety and independence with ADL/IADLs Goal Progress Pt with excellent compliance with continue development of HEP, continue Target Date 10/17/23 OT Goal 4 Goal Identifier ROM Goal Description Pt will increase AROM shoulder flexion with R UE seated to 120 degrees or greater without compensatory muscle use and demonstrating functional reaching pattern to maximize functionaluse of R UE during daily living tasks. Rationale In order to maximize safety and independence with ADL/IADLs Goal Progress 90 degrees shoulder flexion, GOAL MET/Updated Target Date 10/17/23 Date Met 08/31/23 OT Goal 5 Goal Identifier industrial controls technician Goal Description Patient to demonstrate improved B industrial controls technician strength by 5# for increased ADL/IADL independence (hanging onto objects for hygienes, home and work tasks, etc.). Rationale In order to maximize safety and independence with ADL/IADLs Goal Progress 07/20/23: R - 13 lbs. 08/31/23: R - 15 lbs Target Date 10/17/23 OT Goal 6 Goal Identifier 9 hole peg Goal Description Pt to demonstrate increased fine motor coordination as evidenced by improvement of9 hole peg test by 15 seconds with left UE in order to increase safety and independence with ADL/IADL tasks. Target Date 11/29/23 OT Goal 7 Goal Identifier Pinch strength Goal Description Pt will demonstrate increased right hand pinch (lateral and 3 point) strength by 15% in order to increase safety with ADL tasks. Target Date 11/29/23 OT Goal 8 Goal Identifier gross motor coord Goal Description Pt to demonstrate increase of gross motor coordination as evidenced by increase inbox and blocks test performance by 15 blocks, in order to increase independence and safety with ADLtasks. Target Date 11/29/23 Subjective Report Subjective Report Pt arrives on time. Pt reports improvements with RUE use. Pt with use of right compression glove. Pt reports she will be getting right foot drop brace soon. Objective Measures Objective Measures Objective Measure 1;Objective Measure 2;Objective Measure 3;Objective Measure 4;Objective Measure 5;Objective Measure 6 Objective Measure 1 Objective Measure industrial controls technician Details R: 15 lbs, L: 46 lbs Objective Measure 2 Objective Measure lateral pinch Details R: 5 lbs, L: 10.5 lbs Objective Measure 3 Objective Measure 3 pt pinch Details R: 5 lbs, L: 11 lbs Objective Measure 4 Objective Measure 9 hole peg Details R: 60 sec, L: 22 sec Objective Measure 5 Objective Measure Fugl-Zhang Details 56/66 Objective Measure 6 Objective Measure Box and Blocks Details R: 28, L: 66 (completes while standing for optimal positioning with heightened table) Treatment Interventions (OT) Interventions Self Care/Home Management;Therapeutic Procedure/Exercise;Therapeutic Activity;Manual Therapy;Neuromuscular Re-education Neuromuscular Re-education Neuromuscular Re-ed Minutes (08942) 15 Neuro Re-ed 1 RUE neuro Neuro Re-ed 1 - Details To promote ROM, edema management, and neuromuscular re- education of RUE forfunctional use, facilitated further training in AAROM table slides with weight-bearing into washcloth on tabletop this date with pt completing about 10 reps each of the followin) shoulder flexion/extension, 2) horizontal abduction/adduction, Progressed with training in 1) bicep curl and 2) forearm supination/pronation AROM x10 repetitions with RUE. Required min verbal and visual cues throughout to promote form, and end range of motion. Skilled Intervention Skilled education and training for RUE shoulder movements and increased use ofRUE for increased safety and independence with ADL/IADL tasks. Patient Response/Progress These exercises are fun; I like doing them with table slides. Goals 2-4progressing Therapeutic Activity Therapeutic Activity Minutes (03009) 30 Ther Act 1 progress/goals Ther Act 1 - Details Pt educated with progression toward goal areas, plan for continued treatment intervention, and anticipation of continued progress with more function. Pt educated with all testingand objective measures, and implications with performance. See results above. Pt educated on continued need for AROM and weight bearing activities to increase and manage edema and sensation changes in right hand. Skilled Intervention Skilled training in objective measures and goal areas to promote funcitonal use of RUE and IND with ADLs/IADLs Patient Response/Progress Miya reports activities are really hard and reports they are easier without edema glove (tries a few repetitions with and without). Goals 2-5 progressing. Education Learner/Method Patient;Family;Listening;Demonstration;Pictures/Video ([email or web address]) Education Comments see tx details above Plan Home program edema management (elevation, massage, functional use, glove, KT tape). UE HEP: AAROM, table slides, dowel (1-2#), gordon theraputty. FMC activities (progressing). Plan for next session Cont AROM/AAROM RUE warm up, table slides RUE, 2 lb dowel bicep flexion. ContC - progress to clips, cards, Jenga, [place], pegs, building. Cont. proximal strengthening of RUE. Monitor lymphedema therapy needs. Comments Comments Pt has been seen on 10 occasions between 07/20/23-08/31/23 with OT interventions including edema mgmt, ROM, neuro re-ed RUE, fine motor coordination, and fatigue mgmt. Pt with excellent participation within therapy session and with HEP. Pt demonstrates excellent progression with RUE function w ith Fugl-Zhang score of 56/66, mild improvements with right industrial controls technician strength, and significant improvements with RUE coordination. Pt continues to be excellent candidate for skilled OP occupational therapy in order to continue to address the above deficits and progress toward increased safety and independence with ADL/IADL tasks. Total Session Time Timed Code Treatment Minutes 45 Total Treatment Time (sum of timed and untimed services) 45 PLAN Continue therapy per current plan of care. Beginning/End Dates of Progress Note Reporting Period: to 08/31/2023 Referring Provider: Ibeth Ellison documented in this encounter Plan of Treatment Upcoming Encounters Date Type Department Care Team (Late st Contact Info) Description 09/19/2023 2:15 PM CDT Therapy Visit [facility] [address] [place] [phone] Ibeth Ellison MD [address] [place] [address] [phone] Marquita Trivedi, PT 09/19/2023 3:00 PM CDT Therapy Visit [facility] [address] [place] [address]-668314 Ibeth Ellison MD [address] [place] [address] [phone] Gabriella Bailey, OTR FV [address] [address] 09/21/2023 2:15 PM CDT Therapy Visit [address] [phone] Ibeth Ellison MD [address] [place] [address] [phone] Marquita Trivedi, PT 09/21/2023 3:45 PM CDT Therapy Visit [address] [phone] Ibeth Ellison MD [address] [place] [address] [phone] Dylan Mccann, OT 09/26/2023 9:45 AM CDT Therapy Visit [address] [phone] Ibeth Ellison MD [address] [place] [address] [phone] Maura Javier Ap, PT [address] 324825 09/26/2023 11:00 AM CDT Therapy Visit [address] [phone] Ibeth Ellison MD [address] [place] [address] [phone] Gabriella Bailey, OTR FV [address] [address] 09/28/2023 10:30 AM CDT Therapy Visit [address] [phone] Ibeth Ellison MD [address] [place] [address] [phone] Maura Javier Ap, PT [address] 685635 09/28/2023 11:30 AM CDT Therapy Visit [address] [phone] Ibeth Ellison MD [address] [place] [address] [phone] Dylan Mccann, OT 10/03/2023 9:30 AM CDT Therapy Visit [address] [phone] Ibeth Ellison MD [address] [place] [address] [phone] Gabriella Bailey, OTR [address] [address] 10/03/2023 10:30 AM CDT Therapy Visit [address] [phone] Ibeth Ellison MD [address] [place] [address] [phone] Marquita Trivedi, PT 10/05/2023 9:45 AM CDT Therapy Visit [address] [phone] Ibeth Ellison MD [address] [place] [address] [phone] Maura Javier, PT [address] 308535 10/05/2023 10:45 AM CDT Therapy Visit [address] [phone] Ibeth Ellison MD [address] [place] [address] [phone] Dylan Mccann, OT 10/10/2023 9:30 AM CDT Therapy Visit [address] [phone] Ibeth Ellison MD [address] [place] [address] [phone] Gabriella Bailey, OTR [address] [address] 10/10/2023 10:30 AM CDT Therapy Visit [address] [phone] Ibeth Ellison MD [address] [place] [address] 199035 Marquita Trivedi, PT 10/12/2023 9:45 AM CDT Therapy Visit [address] [phone] Ibeth Ellison MD [address] [place] [address] [phone] Maura Javier, PT [address] [place] [address] 10/12/2023 10:45 AM CDT Therapy Visit [address] [phone] Ibeth Ellison MD [address] [place] [address] [phone] Dylan Mccann, OT 10/17/2023 9:30 AM CDT Therapy Visit [address] [phone] Ibeth Ellison MD [address] [place] [address] [phone] Gabriella Bailey, OTR [address] [address] 10/17/2023 10:30 AM CDT Therapy Visit [address] [phone] Ibeth Ellison MD [address] [place] [address] [phone] Marquita Trivedi, PT 10/19/2023 10:15 AM CDT Therapy Visit [address] [phone] Ibeth Ellison MD [address] [place] [address] [phone] Annamaria Dennison [address] [address] 10/19/2023 11:15 AM CDT Therapy Visit [address] [phone] Ibeth Ellison MD [address] [place] [address] [phone] Marquita Trivedi, PT 10/24/2023 12:15 PM CDT Therapy Visit [address] [address] Ibeth Ellison MD [address] [place] [address] [phone] Maura Javier, PT [address] 686945 10/26/2023 11:30 AM CDT Therapy Visit [address] [phone] Ibeth Ellison MD [address] [place] [address] [phone] Dylan Mccann, OT 10/26/2023 12:15 PM CDT Therapy Visit [address] [address] Ibeth Ellison MD [address] [place] [address] [phone] Maura Javier, PT [address] [id number] 10/31/2023 10:15 AM CDT Therapy Visit [address] [address] Ibeth Ellison MD [address] [place] [address] 61246 Gabriella Bailey, OTR [address] [address] 10/31/2023 11:15 AM CDT Therapy Visit [address] [phone] Ibeth Ellison MD [address] [place] [address] [phone] Marquita Trviedi, PT 11/02/2023 10:00 AM CDT Therapy Visit [address] [phone] Ibeth Ellison MD [address] [place] [address] [phone] Dylan Mccann, OT 11/02/2023 11:15 AM CDT Therapy Visit [address] [phone] Ibeth Ellison MD [address] [place] [address] [phone] Marquita Trivedi, PT 11/07/2023 10:30 AM CDT Therapy Visit [address] [phone] Ibeth Ellison MD [address] [place] [address] 535115 Marquita Trivedi, PT 11/09/2023 10:30 AM CDT Therapy Visit [address] [phone] Ibeth Ellison MD [address] [place] [address] [phone] Marquita Trivedi, PT 11/14/2023 12:15 PM CDT Therapy Visit [address] [phone] Ibeth Ellison MD [address] [place] [address] [phone] Maura Javier Ap, PT [address] [place], [place] 829085 11/16/2023 10:30 AM CDT Therapy Visit [address] [phone] Ibeth Ellison MD [address] [place] [address] [phone] Marquita Trivedi, PT documented as of this encounter Visit Diagnoses Diagnosis Cerebrovascular accident (CVA) due to thrombosis of left middle cerebral artery (H)- Primary Activity of daily living alteration Debility, unspecified documented in this encounter Care Teams Abstract Writer Relationship Specialty Start Date End Date GwensofiPramodflavio Bell [address] [place] [address] PCP - General Physician Iron Caster 03/31/22 Angel Hollins MD [address] [facility] [id number] [place], [place] [id number] Neurology 07/20/23 Petra Dorado PA [address] [place], [place] 106044 Physician Iron Caster Physical Medicine and Rehabilitation 07/20/23 Angel Hollins MD [address]09 [facility] [id number] [place] [address] Assigned Neuroscience Provider 08/03/23 documented as of this encounter
--- OUTSIDE RECORDS SUMMARY | 2023-09-19 04:53 | XMS_ITS | Encounter Summary ---
Author Organization [facility] Address [address] [place] [address] 28174 Care Team Providers Care Rubber Tubing Backer Name Role Phone Kyra Perera Primary Care Provider Angel Hollins MD Unavailable Petra Dorado Unavailable [phone] Angel Hollins MD Unavailable [phone] Encounter Details Date Type Department Care Team (Latest Contact Info) Description 09/03/2023 Travel Social History Tobacco Use Types Packs/Day [...] Description 09/19/2023 2:15 PM CDT Therapy Visit [facility] [address] [address] Ibeth Ellison MD [address] [place] [address] Marquita Trivedi, JESSICA 09/19/2023 3:00 PM CDT Therapy Visit [address] [phone] Ibeth Ellison MD [address] [place] [address] [phone] Gabriella Bailey, OTR [address] [address] 09/21/2023 2:15 PM CDT Therapy Visit [address] [phone] Ibeth Ellison MD [address] [place] [address] 843405 Marquita Trivedi, PT 09/21/2023 3:45 PM CDT Therapy Visit [address] [phone] Ibeth Ellison MD [address] [place] [address] [phone] Dylan Mccann, OT 09/26/2023 9:45 AM CDT Therapy Visit [address] [address] Ibeth Ellison MD [address] [place] [address] [phone] Maura Javier, PT [address] 954375 09/26/2023 11:00 AM CDT Therapy Visit [address] [phone] Ibeth Ellison MD [address] [place] [address] 48191 Gabriella Bailey, OTR [address] [address] 09/28/2023 10:30 AM CDT Therapy Visit [address] [phone] Ibeth Ellison MD [address] [place] [address] [phone] Maura Javier, PT [address] 612045 09/28/2023 11:30 AM CDT Therapy Visit [address] [phone] Ibeth Ellison MD [address] [place] [address] [phone] Dylan Mccann, OT 10/03/2023 9:30 AM CDT Therapy Visit [address] [phone] Ibeth Ellison MD [address] [place] [address] [phone] Gabriella Bailey, OTR [address] [address] 10/03/2023 10:30 AM CDT Therapy Visit [address] [phone] Ibeth Ellison MD [address] [place] [address] [phone] Marquita Trivedi, PT 10/05/2023 9:45 AM CDT Therapy Visit [address] [phone] Ibeth Ellison MD [address] [place] [address] 154835 Maura Javier Ap, PT [address] [phone] 10/05/2023 10:45 AM CDT Therapy Visit [address] [phone] Ibeth Ellison MD [address] [place] [address] [phone] Dylan Mccann, OT 10/10/2023 9:30 AM CDT Therapy Visit [address] [phone] Ibeth Ellison MD [address] [place] [address] [phone] Gabriella Bailey, OTR [address] [address] 10/10/2023 10:30 AM CDT Therapy Visit [address] [phone] Ibeth Ellison MD [address] [place] [address] [phone] Marquita Trivedi, PT 10/12/2023 9:45 AM CDT Therapy Visit [address] [phone] Ibeth Ellison MD [address] [place] [address] 54276 Maura Jaiver Ap, PT [address] [place] [address] 10/12/2023 10:45 AM CDT Therapy Visit [address] [phone] Ibeth Ellison MD [address] [place] [address] [phone] Dylan Mccann, OT 10/17/2023 9:30 AM CDT Therapy Visit [address] [address] Ibeth Ellison MD [address] [place] [address] 439755 Gabriella Bailey, OTR [address] [address] 10/17/2023 10:30 AM CDT Therapy Visit [address] [address] Ibeth Ellison MD [address] [place] [address] [phone] Marquita Trivedi, PT 10/19/2023 10:15 AM CDT Therapy Visit [address] [phone] Ibeth Ellison MD [address] [place] [address] [phone] Annamaria Dennison [address] [address] 10/19/2023 11:15 AM CDT Therapy Visit [address] [phone] Ibeth Ellison MD [address] [place] [address] 429355 Marquita Trivedi, PT 10/24/2023 12:15 PM CDT Therapy Visit [address] [phone] Ibeth Ellison MD [address] [place] [address] 860225 Maura Javier, PT [address] 125615 10/26/2023 11:30 AM CDT Therapy Visit [address] 20650-294114 Ibeth Ellison MD [address] [place] [address] 73986 Dylna Mccann, OT 10/26/2023 12:15 PM CDT Therapy Visit [address] [phone] Ibeth Ellison MD [address] [place] [address] 813655 Maura Javier, PT [address] 759205 10/31/2023 10:15 AM CDT Therapy Visit [address] [address] Ibeth Ellison MD [address] [place] [address] [phone] Gabriella Bailey, OTR [address] [address] 10/31/2023 11:15 AM CDT Therapy Visit [address] [phone] Ibeth Ellison MD [address] [place] [address] [phone] Marquita Trivedi, PT 11/02/2023 10:00 AM CDT Therapy Visit [address] [address] Ibeth Ellison MD [address] [place] [address] [phone] Dylan Mccann, OT 11/02/2023 11:15 AM CDT Therapy Visit [address] [address] Ibeth Ellison MD [address] [place] [address] [phone] Marquita Trivedi, PT 11/07/2023 10:30 AM CDT Therapy Visit [address] 08366-200214 Ibeth Ellison MD [address] [place] [address] 324555 Marquita Trivedi, PT 11/09/2023 10:30 AM CDT Therapy Visit [address] [phone] Ibeth Ellison MD [address] [place] [address] [phone] Marquita Trivedi, PT 11/14/2023 12:15 PM CDT Therapy Visit [address] [phone] Ibeth Ellison MD [address] [place] [address] [phone] Maura Javier Ap, PT [address] [place], [place] 932895 11/16/2023 10:30 AM CDT Therapy Visit [address] [phone] Ibeth Ellison MD [address] [place] [address] [phone] Marquita Trivedi, PT documented as of this encounter Visit Diagnoses Not on filedocumented in this encounter Care Teams Rubber Tubing Backer Relationship Specialty Start Date End Date Kyra Perera [address] [place] [address] 08991 PCP - General Physician Phonograph Needle Tip Maker 03/31/22 Angel Hollins MD 909 [facility] [id number] [place], [place] [id number] Neurology 07/20/23 Petra Dorado PA 2450 [facility] 213 [place], [place] [phone] Physician Phonograph Needle Tip Maker Physical Medicine and Rehabilitation 07/20/23 Angel Hollins MD 9 [facility], [place] [address] Assigned Neuroscience Provider 08/03/23 documented as of this encounter
--- OUTSIDE RECORDS SUMMARY | 2023-09-19 04:53 | XMS_ITS | Encounter Summary ---
Author Organization [facility] Address [address] [place] [address] 87067 Care Team Providers Care Counter Top Maker Name Role Phone Kyra Perera Primary Care Provider [phone] Angel Hollins MD Unavailable Petra Dorado Unavailable [phone] Angel Hollins MD Unavailable Reason for Visit * Rehab Therapy Integrated Services (Routine) - Authorized Specialty Diagnoses / Procedures Referred By Scott muniz Referred To Contact Diagnoses Scot DAUGHERTY PF RN sent order Procedures PT NEURO EVAL [address] [address] Referral ID Status Reason Start Date Expiration Date V isits Requested Visits Authorized [id number] Authorized 07/18/2023 03/12/2024 365 365 Encounter Details Date Type Department Care Team (Latest Contact Info) Description 08/29/2023 2:00 PM CDT Therapy Visit [address] [address] Ibeth Ellison MD [address] [place] [address] Sylwia Stuart, PT [facility] [address] [address] 62 Cerebrovascular accident (CVA) due to thrombosis of [...] Description 09/19/2023 2:15 PM CDT Therapy Visit [address] [phone] Ibeth Ellison MD [address] [place] [address] [phone] Marquita Trivedi, PT 09/19/2023 3:00 PM CDT Therapy Visit [address] [phone] Ibeth Ellison MD [address] [place] [address] 634305 Gabriella Bailey, OTR [address] [address] 09/21/2023 2:15 PM CDT Therapy Visit [address] [phone] Ibeth Ellison MD [address] [place] [address] 743005 Marquita Trivedi, PT 09/21/2023 3:45 PM CDT Therapy Visit [address] [phone] Ibeth Ellison MD [address] [place] [address] [phone] Dylan Mccann, OT 09/26/2023 9:45 AM CDT Therapy Visit [address] 39334-397514 Ibeth Ellison MD [address] [place] [address] 8[address]17 Maura Javier, PT [address] 200955 09/26/2023 11:00 AM CDT Therapy Visit [address] [phone] Ibeth Ellison MD [address] [place] [address] 260285 Gabriella Bailey, OTR [address] [address] 09/28/2023 10:30 AM CDT Therapy Visit [address] 44569-878514 Ibeth Ellison MD [address] [place] [address] 833[address] Maura Javier, PT [address] 058385 09/28/2023 11:30 AM CDT Therapy Visit [address] [phone] Ibeth Ellison MD [address] [place] [address] [phone] Dylan Mccann, OT 10/03/2023 9:30 AM CDT Therapy Visit [address] [phone] Ibeth Ellison MD [address] [place] [address] [phone] Gabriella Bailey, OTR [address] [address] 10/03/2023 10:30 AM CDT Therapy Visit [address] [phone] Ibeth Ellison MD [address] [place] [address] [phone] Marquita Trivedi, PT 10/05/2023 9:45 AM CDT Therapy Visit [address] [phone] Ibeth Ellison MD [address] [place] [address] [phone] Maura Javier Ap, PT [address] 947675 10/05/2023 10:45 AM CDT Therapy Visit [address] [phone] Ibeth Ellison MD [address] [place] [address] [phone] Dylan Mccann, OT 10/10/2023 9:30 AM CDT Therapy Visit [address] [phone] Ibeth Ellison MD [address] [place] [address] [phone] Gabriella Bailey, OTR [address] [address] 10/10/2023 10:30 AM CDT Therapy Visit [address] [phone] Ibeth Ellison MD [address] [place] [address] [phone] Marquita Trivedi, PT 10/12/2023 9:45 AM CDT Therapy Visit [address] [phone] Ibeth Ellison MD [address] [place] [address] [phone] Maura Javier, PT [address] 439545 10/12/2023 10:45 AM CDT Therapy Visit [address] [phone] Ibeth Ellison MD [address] [place] [address] [phone] Dylan Mccann, OT 10/17/2023 9:30 AM CDT Therapy Visit [address] [phone] Ibeth Ellison MD [address] [place] [address] [phone] Gabriella Bailey, OTR [address] [address] 10/17/2023 10:30 AM CDT Therapy Visit [address] [phone] Ibeth Ellison MD [address] [place] [address] [phone] Marquita Trivedi, PT 10/19/2023 10:15 AM CDT Therapy Visit [address] [phone] Ibeth Ellison MD [address] [place] [address] [phone] Annamaria Dennison [address] [address] 10/19/2023 11:15 AM CDT Therapy Visit [address] [phone] Ibeth Ellison MD [address] [place] [address] [phone] Marquita Trivedi, PT 10/24/2023 12:15 PM CDT Therapy Visit [address] [phone] Ibeth Ellison MD [address] [place] [address] [phone] Maura Javier Ap, PT [address] 081905 10/26/2023 11:30 AM CDT Therapy Visit [address] [phone] Ibeth Ellison MD [address] [place] [address] [phone] Dylan Mccann, OT 10/26/2023 12:15 PM CDT Therapy Visit [address] [phone] Ibeth Ellison MD [address] [place] [address] [phone] Maura Javier Ap, PT [address] 011645 10/31/2023 10:15 AM CDT Therapy Visit [address] [phone] Ibeth Ellison MD [address] [place] [address] 632255 Gabriella Bailey, OTR [address] [address] 10/31/2023 11:15 AM CDT Therapy Visit [address] [phone] Ibeth Ellison MD [address] [place] [address] [phone] Marquita Trivedi, PT 11/02/2023 10:00 AM CDT Therapy Visit [address] [phone] Ibeth Ellison MD [address] [place] [address] [phone] Dylan Mccann, OT 11/02/2023 11:15 AM CDT Therapy Visit [address] [address] Ibeth Ellison MD [address] [place] [address] [phone] Marquita Trivedi, PT 11/07/2023 10:30 AM CDT Therapy Visit [address] [address] Ibeth Ellison MD [address] [place] [address] [phone] Marquita Trivedi, PT 11/09/2023 10:30 AM CDT Therapy Visit [address] [phone] Ibeth Ellison MD [address] [place] [address] 510155 Marquita Trivedi, PT 11/14/2023 12:15 PM CDT Therapy Visit [address] [address] Ibeth Ellison MD [address] [place] [address] 628205 Maura Javier, PT [address] 808885 11/16/2023 10:30 AM CDT Therapy Visit [address] [phone] Ibeth Ellison MD [address] [place] [address] [phone] Marquita Trivedi PT documented as of this encounter Visit Diagnoses Diagnosis 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
--- OUTSIDE RECORDS SUMMARY | 2023-09-19 04:54 | XMS_ITS | Encounter Summary ---
Author Organization [facility] Address [address] [place] [address] 93825 Care Team Providers Care Clothing Patternmaker Name Role Phone Kyra Perera Primary Care Provider Angel Hollins MD Unavailable Petra Dorado Unavailable [phone] Angel Hollins MD Unavailable [phone] Encounter Details Date Type Department Care Team (Latest Contact Info) Description 08/18/2023 Travel Social History Tobacco Use Types Packs/Day [...] Description 09/19/2023 2:15 PM CDT Therapy Visit [facility] [address] [address] Ibeth Ellison MD [address] [place] [address] Marquita Trivedi, JESSICA 09/19/2023 3:00 PM CDT Therapy Visit [address] [phone] Ibeth Ellison MD [address] [place] [address] [phone] Gabriella Bailey, OTR [address] [address] 09/21/2023 2:15 PM CDT Therapy Visit [address] [phone] Ibeth Ellison MD [address] [place] [address] [phone] Marquita Trivedi, PT 09/21/2023 3:45 PM CDT Therapy Visit [address] [phone] Ibeth Ellison MD [address] [place] [address] 266255 Dylan Mccann, OT 09/26/2023 9:45 AM CDT Therapy Visit [address] [address] Ibeth Ellison MD [address] [place] [address] 201035 Maura Javier, PT [address] 659365 09/26/2023 11:00 AM CDT Therapy Visit [address] [phone] Ibeth Ellison MD [address] [place] [address] 75017 Gabriella Bailey, OTR [address] [address] 09/28/2023 10:30 AM CDT Therapy Visit [address] [phone] Ibeth Ellison MD [address] [place] [address] [phone] Maura Javier, PT [address] 856035 09/28/2023 11:30 AM CDT Therapy Visit [address] [phone] Ibeth Ellison MD [address] [place] [address] 189315 Dylan Mccann, OT 10/03/2023 9:30 AM CDT Therapy Visit [address] [phone] Ibeth Ellison MD [address] [place] [address] [phone] Gabriella Bailey, OTR [address] [address] 10/03/2023 10:30 AM CDT Therapy Visit [address] [phone] Ibeth Ellison MD [address] [place] [address] [phone] Marquita Trivedi, PT 10/05/2023 9:45 AM CDT Therapy Visit [address] [phone] Ibeth Ellison MD [address] [place] [address] 822335 Maura Javier Ap, PT [address] [id number] 10/05/2023 10:45 AM CDT Therapy Visit [address] [phone] Ibeth Ellison MD [address] [place] [address] [phone] Dylan Mccann, OT 10/10/2023 9:30 AM CDT Therapy Visit [address] [phone] Ibeth Ellison MD [address] [place] [address] [phone] Gabriella Bailey, OTR [address] [address] 10/10/2023 10:30 AM CDT Therapy Visit [address] [phone] Ibeth Ellison MD [address] [place] [address] [phone] Marquita Trivedi, PT 10/12/2023 9:45 AM CDT Therapy Visit [address] [phone] Ibeth Ellison MD [address] [place] [address] 40611 Maura Javier Ap, PT [address] [place] [address] 10/12/2023 10:45 AM CDT Therapy Visit [address] [phone] Ibeth Ellison MD [address] [place] [address] [phone] Dylan Mccann, OT 10/17/2023 9:30 AM CDT Therapy Visit [address] [address] Ibeth Ellison MD [address] [place] [address] [phone] Gabriella Bailey, OTR [address] [address] 10/17/2023 10:30 AM CDT Therapy Visit [address] [address] Ibeth Ellison MD [address] [place] [address] [phone] Marquita Trivedi, PT 10/19/2023 10:15 AM CDT Therapy Visit [address] [phone] Ibeth Ellison MD [address] [place] [address] [phone] Annamaria Dennison [address] [address] 10/19/2023 11:15 AM CDT Therapy Visit [address] 54035-980914 Ibeth Ellison MD [address] [place] [address] 168455 Marquita Trivedi, PT 10/24/2023 12:15 PM CDT Therapy Visit [address] [phone] Ibeth Ellison MD [address] [place] [address] [phone] Maura Javier, PT [address] 523555 10/26/2023 11:30 AM CDT Therapy Visit [address] 10784-165014 Ibeth Ellison MD [address] [place] [address] 79925 Dylan Mccann, OT 10/26/2023 12:15 PM CDT Therapy Visit [address] 85344-881414 Ibeth Ellison MD [address] [place] [address] [phone] Maura Javier, PT [address] 021425 10/31/2023 10:15 AM CDT Therapy Visit [address] [address] Ibeth Ellison MD [address] [place] [address] [phone] Gabriella Bailey, OTR [address] [address] 10/31/2023 11:15 AM CDT Therapy Visit [address] [phone] Ibeth Ellison MD [address] [place] [address] 885365 Marquita Trivedi, PT 11/02/2023 10:00 AM CDT Therapy Visit [address] [address] Ibeth Ellison MD [address] [place] [address] [phone] Dylan Mccann, OT 11/02/2023 11:15 AM CDT Therapy Visit [address] [address] Ibeth Ellison MD [address] [place] [address] [phone] Marquita Trivedi, PT 11/07/2023 10:30 AM CDT Therapy Visit [address] [phone] Ibeth Ellison MD [address] [place] [address] [phone] Marquita Trivedi, PT 11/09/2023 10:30 AM CDT Therapy Visit [address] 09815-697014 Ibeth Ellison MD [address] [place] [address] [phone] Marquita Trivedi, PT 11/14/2023 12:15 PM CDT Therapy Visit [address] [phone] Ibeth Ellison MD [address] [place] [address] [phone] Maura Javier Ap, PT [address] [place], [place] 377225 11/16/2023 10:30 AM CDT Therapy Visit [address] [phone] Ibeth Ellison MD [address] [place] [address] [phone] Marquita Trivedi, PT documented as of this encounter Visit Diagnoses Not on filedocumented in this encounter Care Teams Clothing Patternmaker Relationship Specialty Start Date End Date Kyra Perera [address] [place] [address] 71883 PCP - General Physician Edger Machine Operator 03/31/22 Angel Hollins MD 909 [facility] [id number] [place], [place] [id number] Neurology 07/20/23 Petra Dorado PA 2450 [facility] 213 [place], [place] 553544 Physician Edger Machine Operator Physical Medicine and Rehabilitation 07/20/23 Angel Hollins MD 9 [facility], [place] [address] Assigned Neuroscience Provider 08/03/23 documented as of this encounter
--- OUTSIDE RECORDS SUMMARY | 2023-09-19 04:54 | XMS_ITS | Encounter Summary ---
Author Organization [place] Address [address] [place] [address] Care Team Providers Care Packaging Associate Name Role Phone Kyra Perera Primary Care Provider [phone] Angel Hollins MD Unavailable Petra Dorado Unavailable [phone] Angel Hollins MD Unavailable Reason for Visit * Reason Comments Head Injury Encounter Details Date Type Department Care Team (Late st Contact Info) Description 08/13/2023 1:08 PM CDT - 08/13/2023 2:32 PM CDT Emergency [facility] Emergency Dept [address] [place] [address] Byron Boland MD [facility] [address] [place] [address] Sprain of right shoulder, unspecified shoulder sprain type, initial encounter; Closed head injury, initial encounter Discharge Disposition: Home or Self Care Social [...] Sign Reading Time Taken Comments Blood Pressure 187/93 08/13/2023 11:59 AM CDT Pulse 68 08/13/2023 11:56 AM CDT Temperature 36.4 ??C (97.5 ??F) 08/13/2023 11:56 AM C DT Respiratory Rate 18 08/13/2023 11:56 AM CDT Oxygen Saturation 96% 08/13/2023 11:56 AM CDT Inhaled Oxygen Concentration - - Weight 64.9 kg (143 lb) 08/13/2023 11:56 AM CDT Height 157.5 cm (5' 2) 08/13/2023 11:56 AM CDT Body Mass Index 26.16 08/13/2023 11:56 AM CDT documented in this encounter Discharge Instructions * Discharge Instructions* Byron Boland MD - 08/13/2023 2:26 PM CDT Continue with ice and tylenol Tylenol 1000mg every 6 hours for pain Recheck with your doctor in 1 week * Attachments The following attachments cannot be sent through Care Everywhere. 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 Pt presents with concern for worsening headache after hitting head on wooden table 4 days ago. Pt on daily baby asa, did not take today. Pt hx stroke 6 wks ago, R sided paralysis. Pt also hit R shoulder and endorses pain, pt in R shoulder brace. Denies LOC, reports saw stars. A & Ox4. Triage Assessment (Adult) Row Name 08/13/23 1158 Triage Assessment Airway WDL WDL Respiratory WDL Respiratory WDL WDL Skin Circulation/Temperature WDL Skin Circulation/Temperature WDL WDL Cardiac WDL Cardiac WDL WDL Peripheral/Neurovascular WDL Peripheral Neurovascular WDL WDL Cognitive/Neuro/Behavioral WDL Cognitive/Neuro/Behavioral WDL X hx R sided paralysis from stroke. endorses headache-hit head 4 days ago. * Byron Boland MD - 08/13/2023 11:48 AM CDT Emergency Department Note History of Present Illness Chief Complaint Head Injury DENZEL Restrepo is a 73 year old female with history of stroke, hypertension, CAD, stage 3 CKD, andcardiomyopathy who presents to the ED for evaluation of head injury. The patient reports that four days ago she had a mechanical fall hitting her head on the ground and her right shoulder on a table.The patient reports that her persistent headache is about a 5 or 6/10. She denies loss of consciousness, visual changes, or vomiting. She states that she took tylenol last night. Of note the patient has a stroke 6 weeks ago and was on Plavix for the first 21 days, she is now only taking baby aspirin. Independent Historian None Review of External Notes None Past Medical History Medical History and Problem List Anxiety CAD Hyperlipidemia Hypertension Obstructive sleep apnea Stroke Stage 3 CKD Exudative age-related macular degeneration Cardiomyopathy Paroxysmal SVT Left ventricular hypertrophy Mast cell activation syndrome Lipid disorder Sphincter of Oddi dysfunction GERD Diverticulosis of colon Degeneration of cervical intervertebral disc Plantar fascial fibromatosis Raynaud's syndrome Rosacea Insomnia Medications Aspirin 81 mg Lopressor Crestor Micardis Xanax Antivert Nitrostat Pravachol Inspra Zofran Lasix Pepcid Valium Surgical History Cholecystectomy section Tonsillectomy Thoracic laminectomy EGD x2 Colonoscopy x2 Appendectomy Physical Exam Patient Vitals for the past 24 hrs: BP Temp Temp src Pulse Resp SpO2 Height Weight 08/13/23 1159 (!) 187/93 -- -- -- -- -- -- -- 08/13/23 1156 -- 97.5 ??F (36.4 ??C) Temporal 68 18 96 % 1.575 m (5' 2) 64.9 kg (143 lb) Physical Exam GEN- alert, cooperative HEENT- TTP occipital area, PERRL, EOMI, MMM, oral pharynx without abnormalities, no dental injuries, midface stable, TM's clear bilaterally NECK- ROM, soft, supple, no midline C spine tenderness to palpation, no abrasions RESP- CTAB, no w/r/r, chest wall nontender CV- RRR, no m/r/g ABD- soft, NT/ND, +BS MSK- R shoulder in strap, TTP R shoulder to palpation, ROM produces pain NEURO- GCS 15, speech normal, alert SKIN- no rash, no bruising, no ecchymosis, PSYCH- normal mood Diagnostics Imaging CT Head w/o Contrast Final Result IMPRESSION: 1. No CT evidence for acute intracranial process or acute calvarial fracture. 2. Brain atrophy and presumed chronic microvascular ischemic changes as above. XR Shoulder Right G/E 3 Views Final Result IMPRESSION: Normal alignment. No acute fracture. 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 Independent Interpretation Shoulder XR neg ED Course Medications Administered Medications - No data to display Discussion of Management None Social Determinants of Health adding to complexity of care None ED Course ED Course as of 08/13/23 1514 Sun Aug 13, 2023 1419 I obtained history and examined the patient as noted above. Medical Decision Making / Diagnosis [facility] Diagnoses: None MIPS None [facility] Miya Restrepo is a 73 year old female who presents after a fall from several days ago. Imaging did not show any acute injuries. She was reassured. She can continue with Tylenol for pain as needed. She can apply ice to the shoulder. Return precaution provided. She can follow-up with her regular doctor. Disposition The patient was discharged. ICD-10 Codes: ICD-10-CM 1. Sprain of right shoulder, unspecified shoulder sprain type, initial encounter S43.401A 2. Closed head injury, initial encounter S09.90XA Discharge Medications Discharge Medication List as of 08/13/2023 2:30 PM Scribe Disclosure: Melissa Patel, am serving as a scribe at 2:19 PM on 08/13/2023 to document services personallyperformed by Byron Boland MD based on my observations and the provider's statements to me. Scribe Disclosure: SHAYNA Patel, am serving as a scribe life trainer at 3:14 PM on 08/13/2023 to document services personally performed by Byron Boland MD based on my observations and the provider's statements to me. Byron Boland MD 08/13/232115 documented in this encounter Plan of Treatment Upcoming Encounters Date Type Department Care Team (Late st Contact Info) Description 09/19/2023 2:15 PM CDT Therapy Visit [address] [phone] Ibeth Ellison MD [address] [place] [address] 167405 Marquita Trivedi, PT 09/19/2023 3:00 PM CDT Therapy Visit [address] [phone] Ibeth Ellison MD [address] [place] [address] [phone] Gabriella Bailey, OTR [address] [address] 09/21/2023 2:15 PM CDT Therapy Visit [address] [phone] Ibeth Ellison MD [address] [place] [address] [phone] Marquita Trivedi, PT 09/21/2023 3:45 PM CDT Therapy Visit [address] [phone] Ibeth Ellison MD [address] [place] [address] [phone] Dylan Mccann, OT 09/26/2023 9:45 AM CDT Therapy Visit [address] [phone] Ibeth Ellison MD [address] [place] [address] [phone] Maura Javier Ap, PT [address] [place] [address] 09/26/2023 11:00 AM CDT Therapy Visit [facility] [address] [place] [phone] Ibeth Ellison MD [address] [place] [address] [phone] Gabriella Bailey, OTR [facility] [address] 411[address] 09/28/2023 10:30 AM CDT Therapy Visit [address] [phone] Ibeth Ellison MD [address] [place] [address] [phone] Maura Javier, PT [address] [address] 09/28/2023 11:30 AM CDT Therapy Visit [address] [phone] Ibeth Ellison MD [address] [place] [address] [phone] Dylan Mccann, OT 10/03/2023 9:30 AM CDT Therapy Visit [address] [phone] Ibeth Ellison MD [address] [place] [address] [phone] Gabriella Bailey OTR [address] [address] 10/03/2023 10:30 AM CDT Therapy Visit [address] [phone] Ibeth Ellison MD [address] [place] [address] 634195 Marquita Trivedi, PT 10/05/2023 9:45 AM CDT Therapy Visit [address] [phone] Ibeth Ellison MD [address] [place] [address] [phone] Maura Javier Ap, PT [address] [address] 10/05/2023 10:45 AM CDT Therapy Visit [address] [phone] Ibeth Ellison MD [address] [place] [address] [phone] Dylan Mccann, OT 10/10/2023 9:30 AM CDT Therapy Visit [address] [phone] Ibeth Ellison MD [address] [place] [address] [phone] Gabriella Bailey, OTR [address] [address] 10/10/2023 10:30 AM CDT Therapy Visit [address] [phone] Ibeth Ellsion MD [address] [place] [address] [phone] Marquita Trivedi, PT 10/12/2023 9:45 AM CDT Therapy Visit [address] [phone] Ibeth Ellison MD [address] [place] [address] [phone] Maura Javier Ap, PT [address] 372395 10/12/2023 10:45 AM CDT Therapy Visit [address] [phone] Ibeht Ellison MD [address] [place] [address] [phone] Dylan Mccann, OT 10/17/2023 9:30 AM CDT Therapy Visit [address] [phone] Ibeth Ellison MD [address] [place] [address] [phone] Gabriella Bailey, OTR [address] [address] 10/17/2023 10:30 AM CDT Therapy Visit [address] [phone] Ibeth Ellison MD [address] [place] [address] [phone] Marquita Trivedi, PT 10/19/2023 10:15 AM CDT Therapy Visit [address] [phone] Ibeth Ellison MD [address] [place] [address] 390395 Annamaria Dennison [address] [address] 10/19/2023 11:15 AM CDT Therapy Visit [address] [phone] Ibeth Ellison MD [address] [place] [address] [phone] Marquita Trivedi, PT 10/24/2023 12:15 PM CDT Therapy Visit [address] [phone] Ibeth Ellison MD [address] [place] [address] [phone] Maura Javier Ap, PT [address] 117645 10/26/2023 11:30 AM CDT Therapy Visit [address] [phone] Ibeth Ellison MD [address] [place] [address] [phone] Dylan Mccann, OT 10/26/2023 12:15 PM CDT Therapy Visit [address] [phone] Ibeth Ellison MD [address] [place] [address] Maura Javier Ap, PT [address] [address] 10/31/2023 10:15 AM CDT Therapy Visit [address] [phone] Ibeth Ellison MD [address] [place] [address] [phone] Gabriella Bailey, OTR [address] [address] 10/31/2023 11:15 AM CDT Therapy Visit [address] [phone] Ibeth Ellison MD [address] [place] [address] [phone] Marquita Trivedi, PT 11/02/2023 10:00 AM CDT Therapy Visit [address] [phone] Ibeth Ellison MD [address] [place] [address] Dylan Mccann, OT 11/02/2023 11:15 AM CDT Therapy Visit [address] [phone] Ibeth Ellison MD [address] [place] [address] [phone] Marquita Trivedi, PT 11/07/2023 10:30 AM CDT Therapy Visit [address] [phone] Ibeth Ellison MD [address] [place] [address] [phone] Marquita Trivedi, PT 11/09/2023 10:30 AM CDT Therapy Visit [address] [phone] Ibeth Ellison MD [address] [place] [address] 617125 Marquita Trivedi, PT 11/14/2023 12:15 PM CDT Therapy Visit [address] [phone] Ibeth Ellison MD [address] [place] [address] [phone] Maura Javier Ap, PT [address] [phone] 11/16/2023 10:30 AM CDT Therapy Visit [address] [phone] Ibeth Ellison MD [address] [place] [address] [phone] Marquita Trivedi, PT documented as of this encounter Procedures Procedure Name Priority Date/Time Associated Diagnosis Comments CT HEAD W/O CONTRAST STAT 08/13/2023 1:18 PM CDT XR SHOULDER RIGHT G/E 3 VIEWS STAT 08/13/2023 1:07 PM CDT documented in this encounter Results * CT Head w/o Contrast (08/13/2023 1:18 PM CDT) Anatomical Region Laterality Modality Head, SUBRAD CT NEURO, SUBRA D CT NEURO, UMP CT NEURO, RAD CT Computed Tomography 08/13/2023 1:18 PM CDT Impressions 08/13/2023 1:29 PM CDT IMPRESSION: 1. ??No CT evidence for acute intracranial process or acute calvarial fracture. 2. ??Brain atrophy and presumed chronic microvascular ischemic changes as above. Narrative 08/13/2023 1:29 PM CDT EXAM: CT HEAD W/O CONTRAST LOCATION: [facility] DATE: 08/13/2023 INDICATION: Traumatic head injury, posttraumatic headache COMPARISON: None. TECHNIQUE: Routine CT Head without IV contrast. Multiplanar reformats. Dose reduction techniques were used. FINDINGS: INTRACRANIAL CONTENTS: No intracranial hemorrhage, extraaxial collection, or mass effect. ??No CT evidence of acute infarct. Chronic lacunar infarction in the posterior left frontal periventricular white matter. Mild to moderate presumed chronic small vessel ischemic changes. Mild generalized volume loss. No hydrocephalus. Mild episodic calcifications of the bilateral cavernous ICAs. VISUALIZED ORBITS/SINUSES/MASTOIDS: Prior bilateral cataract surgery. Visualized portions of the orbits are otherwise unremarkable. No paranasal sinus mucosal disease. No middle ear or mastoid effusion. BONES/SOFT TISSUES: No acute calvarial fracture or scalp hematoma. Procedure Note Gross, Ethan Morton MD - 08/13/2023 EXAM: CT HEAD W/O CONTRAST LOCATION: [facility] DATE: 08/13/2023 INDICATION: Traumatic head injury, posttraumatic headache COMPARISON: None. TECHNIQUE: Routine CT Head without IV contrast. Multiplanar reformats.Dose reduction techniques were used. FINDINGS: INTRACRANIAL CONTENTS: No intracranial hemorrhage, extraaxial collection,or mass effect. No CT evidence of acute infarct. Chronic lacunarinfarction in the posterior left frontal periventricular white matter.Mild to moderate presumed chronic small vessel ischemic changes. Mild generalized volume loss. No hydrocephalus.Mild episodic calcifications of the bilateral cavernous ICAs. VISUALIZED ORBITS/SINUSES/MASTOIDS: Prior bilateral cataract surgery.Visualized portions of the orbits are otherwise unremarkable. No paranasalsinus mucosal disease. No middle ear or mastoid effusion. BONES/SOFT TISSUES: No acute calvarial fracture or scalp hematoma. IMPRESSION: 1. No CT evidence for acute intracranial process or acute calvarialfracture. 2. Brain atrophy and presumed chronic microvascular ischemic changes asabove. Melida Stevens MD [facility] ORDERABLES * XR Shoulder Right G/E 3 Views (08/13/2023 1:07 PM CDT) Anatomical Region Laterality Modality Shoulder, Right Shoulder Right Digital Radiography 08/13/2023 1:07 PM CDT Impressions 08/13/2023 1:12 PM CDT IMPRESSION: Normal alignment. No acute fracture. 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 Narrative 08/13/2023 1:12 PM CDT EXAM: XR SHOULDER RIGHT G/E 3 VIEWS LOCATION: [facility] DATE: 08/13/2023 INDICATION: fall with pain COMPARISON: None. Procedure Note Elgin Champion MD - 08/13/2023 EXAM: XR SHOULDER RIGHT G/E 3 VIEWS LOCATION: [facility] DATE: 08/13/2023 INDICATION: fall with pain COMPARISON: None. IMPRESSION: Normal alignment. No acute fracture. 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 Melida Stevens MD G DIAGNOSTIC IMAGI NG ORDERABLES documented in this encounter Visit Diagnoses Diagnosis Sprain of right shoulder, unspecified shoulder sprain type, initial encounter Closed head injury, initial encounter documented in this encounter Care Teams Packaging Associate Relationship Specialty Start Date End Date Kyra Perera Arabella [address] [place] [address] PCP - General Physician Stone Polisher Hand 03/31/22 Angel Hollins MD [address] [facility] [id number] [place] [address] Neurology 07/20/23 Petra Dorado PA [address] [place] [address] Physician Stone Polisher Hand Physical Medicine and Rehabilitation 07/20/23 Angel Hollins MD [address] [facility] [id number] [place] [address] Assigned Neuroscience Provider 08/03/23 documented as of this encounter
--- OUTSIDE RECORDS SUMMARY | 2023-09-19 04:54 | XMS_ITS | Encounter Summary ---
Author Organization [place] Address [address] [place] [address] Care Team Providers Care Tool Inspector Name Role Phone Kyra Perera Primary Care Provider Angel Hollins MD Unavailable Petra Dorado Unavailable [phone] Angel Hollins MD Unavailable Encounter Details Date Type Department Care Team (Latest Contact Info) Description 08/16/2023 Travel Social History Tobacco Use Types Packs/Day [...] Description 09/19/2023 2:15 PM CDT Therapy Visit [facility] [address] [phone] Ibeth Ellison MD [address] [place] [address] Marquita Trivedi, JESSICA 09/19/2023 3:00 PM CDT Therapy Visit [address] [phone] Ibeth Ellison MD [address] [place] [address] [phone] Gabriella Bailey, OTR [address] [address] 09/21/2023 2:15 PM CDT Therapy Visit [address] [phone] Ibeth Ellison MD [address] [place] [address] [phone] Marquita Trivedi, PT 09/21/2023 3:45 PM CDT Therapy Visit [address] [phone] Ibeth Ellison MD [address] [place] [address] [phone] Dylan Mccann, OT 09/26/2023 9:45 AM CDT Therapy Visit [address] [phone] Ibeth Ellison MD [address] [place] [address] [phone] Maura Javier, PT [address] [phone] 09/26/2023 11:00 AM CDT Therapy Visit [address] [phone] Ibeth Ellison MD [address] [place] [address] Gabriella Bailey, OTR [address] [address] 09/28/2023 10:30 AM CDT Therapy Visit [address] [phone] Ibeth Ellison MD [address] [place] [address] [phone] Maura Javier, PT [address] 393585 09/28/2023 11:30 AM CDT Therapy Visit [address] [phone] Ibeth Ellison MD [address] [place] [address] [phone] Dylan Mccann, OT 10/03/2023 9:30 AM CDT Therapy Visit [address] [phone] Ibeth Ellison MD [address] [place] [address] [phone] Gabriella Bailey, OTR [address] [address] 10/03/2023 10:30 AM CDT Therapy Visit [address] [phone] Ibeth Ellison MD [address] [place] [address] [phone] Marquita Trivedi, PT 10/05/2023 9:45 AM CDT Therapy Visit [address] [phone] Ibeth Ellison MD [address] [place] [address] [phone] Maura Javier Ap, PT [address] [phone] 10/05/2023 10:45 AM CDT Therapy Visit [address] [phone] Ibeth Ellison MD [address] [place] [address] [phone] Dylan Mccann, OT 10/10/2023 9:30 AM CDT Therapy Visit [address] [phone] Ibeth Ellison MD [address] [place] [address] [phone] Gabriella Bailey, OTR [address] [address] 10/10/2023 10:30 AM CDT Therapy Visit [address] [phone] Ibeth Ellison MD [address] [place] [address] [phone] Marquita Trivedi, PT 10/12/2023 9:45 AM CDT Therapy Visit [address] [phone] Ibeth Ellison MD [address] [place] [address] Maura Javier Ap, PT [address] [place] [address] 10/12/2023 10:45 AM CDT Therapy Visit [address] [phone] Ibeth Ellison MD [address] [place] [address] [phone] Dylan Mccann, OT 10/17/2023 9:30 AM CDT Therapy Visit [address] [address] Ibeth Ellison MD [address] [place] [address] [phone] Gabriella Bailey, OTR [address] [address] 10/17/2023 10:30 AM CDT Therapy Visit [address] [phone] Ibeth Ellison MD [address] [place] [address] [phone] Marquita Trivedi, PT 10/19/2023 10:15 AM CDT Therapy Visit [address] [phone] Ibeth Ellison MD [address] [place] [address] [phone] Annamaria Dennison [address] [address] 10/19/2023 11:15 AM CDT Therapy Visit [address] [phone] Ibeth Ellison MD [address] [place] [address] [phone] Marquita Trivedi, PT 10/24/2023 12:15 PM CDT Therapy Visit [address] [phone] Ibeth Ellison MD [address] [place] [address] [phone] Maura Javier, PT [address] [phone] 10/26/2023 11:30 AM CDT Therapy Visit [address] [phone] Ibeth Ellison MD [address] [place] [address] Dylan Mccann, OT 10/26/2023 12:15 PM CDT Therapy Visit [address] [phone] Ibeth Ellison MD [address] [place] [address] [phone] Maura Javier, PT [address] 850915 10/31/2023 10:15 AM CDT Therapy Visit [address] [address] Ibeth Ellison MD [address] [place] [address] [phone] Gabriella Bailey, OTR [address] [address] 10/31/2023 11:15 AM CDT Therapy Visit [address] [phone] Ibeth Ellison MD [address] [place] [address] [phone] Marquita Trivedi, PT 11/02/2023 10:00 AM CDT Therapy Visit [address] [address] Ibeth Ellison MD [address] [place] [address] [phone] Dylan Mccann, OT 11/02/2023 11:15 AM CDT Therapy Visit [address] [phone] Ibeth Ellison MD [address] [place] [address] [phone] Marquita Trivedi, PT 11/07/2023 10:30 AM CDT Therapy Visit [address] [phone] Ibeth Ellison MD [address] [place] [address] [phone] Marquita Trivedi, PT 11/09/2023 10:30 AM CDT Therapy Visit [address] [phone] Ibeth Ellison MD [address] [place] [address] [phone] Marquita Trivedi, PT 11/14/2023 12:15 PM CDT Therapy Visit [address] [phone] Ibeth Ellison MD [address] [place] [address] [phone] Maura Javier Ap, PT [address] [place], [place] 980395 11/16/2023 10:30 AM CDT Therapy Visit [address] [phone] Ibeth Ellison MD [address] [place] [address] [phone] Marquita Trivedi, PT documented as of this encounter Visit Diagnoses Not on filedocumented in this encounter Care Teams Tool Inspector Relationship Specialty Start Date End Date Kyra Perera [address] [place] [id number] PCP - General Physician Hand Turner 03/31/22 Angel Hollins MD [address] [facility] [id number] [place], [place] [id number] Neurology 07/20/23 Petra Dorado PA [address] [facility] [address] [place], [place] [phone] Physician Hand Turner Physical Medicine and Rehabilitation 07/20/23 Angel Hollins MD [address] [facility], [place] [address] Assigned Neuroscience Provider 08/03/23 documented as of this encounter
--- OUTSIDE RECORDS SUMMARY | 2023-09-19 04:54 | XMS_ITS | Encounter Summary ---
Author Organization [facility] Address [address] [place] [address] Care Team Providers Care Ad Setter Name Role Phone Kyra Perera Primary Care Provider [phone] Angel Hollins MD Unavailable Petra Dorado Unavailable [phone] Angel Hollins MD Unavailable Encounter Details Date Type Department Care Team (Latest Contact Info) Description 08/09/2023 Travel Social History Tobacco Use Types Packs/Day [...] Description 09/19/2023 2:15 PM CDT Therapy Visit [facility] [address] [address] Ibeth Ellison MD [address] [place] [address] Marquita Trivedi, JESSICA 09/19/2023 3:00 PM CDT Therapy Visit [address] [phone] Ibeth Ellison MD [address] [place] [address] [phone] Gabriella Bailey, OTR [address] [address] 09/21/2023 2:15 PM CDT Therapy Visit [address] [phone] Ibeth Ellison MD [address] [place] [address] [phone] Marquita Trivedi, PT 09/21/2023 3:45 PM CDT Therapy Visit [address] [phone] Ibeth Ellison MD [address] [place] [address] [phone] Dylan Mccann, OT 09/26/2023 9:45 AM CDT Therapy Visit [address] [address] Ibeth Ellison MD [address] [place] [address] [phone] Maura Javier, PT [address] 555555 09/26/2023 11:00 AM CDT Therapy Visit [address] [phone] Ibeth Ellison MD [address] [place] [address] 68906 Gabriella Bailey, OTR [address] [address] 09/28/2023 10:30 AM CDT Therapy Visit [address] [phone] Ibeth Ellison MD [address] [place] [address] [phone] Maura Javier, PT [address] 410605 09/28/2023 11:30 AM CDT Therapy Visit [address] [phone] Ibeth Ellison MD [address] [place] [address] [phone] Dylan Mccann, OT 10/03/2023 9:30 AM CDT Therapy Visit [address] [phone] Ibeth Ellison MD [address] [place] [address] [phone] Gabriella Bailey, OTR [address] [address] 10/03/2023 10:30 AM CDT Therapy Visit [address] [phone] Ibeth Ellison MD [address] [place] [address] [phone] Marquita Trivedi, PT 10/05/2023 9:45 AM CDT Therapy Visit [address] [phone] Ibeth Ellison MD [address] [place] [address] [phone] Maura Javier Ap, PT [address] [phone] 10/05/2023 10:45 AM CDT Therapy Visit [address] [phone] Ibeth Ellison MD [address] [place] [address] [phone] Dylan Mccann, OT 10/10/2023 9:30 AM CDT Therapy Visit [address] [phone] Ibeth Ellison MD [address] [place] [address] [phone] Gabriella Bailey, OTR [address] [address] 10/10/2023 10:30 AM CDT Therapy Visit [address] [phone] Ibeth Ellison MD [address] [place] [address] [phone] Marquita Trivedi, PT 10/12/2023 9:45 AM CDT Therapy Visit [address] [phone] Ibeth Ellison MD [address] [place] [address] 84168 Maura Javier Ap, PT [address] [place] [address] 10/12/2023 10:45 AM CDT Therapy Visit [address] [phone] Ibeth Ellison MD [address] [place] [address] [phone] Dylan Mccann, OT 10/17/2023 9:30 AM CDT Therapy Visit [address] [address] Ibeth Ellison MD [address] [place] [address] [phone] Gabriella Bailey, OTR [address] [address] 10/17/2023 10:30 AM CDT Therapy Visit [address] [address] Ibeth Ellison MD [address] [place] [address] [phone] Marquita Trivedi, PT 10/19/2023 10:15 AM CDT Therapy Visit [address] [phone] Ibeth Ellison MD [address] [place] [address] [phone] Annamaria Dennison [address] [address] 10/19/2023 11:15 AM CDT Therapy Visit [address] [phone] Ibeth Ellison MD [address] [place] [address] [phone] Marquita Trivedi, PT 10/24/2023 12:15 PM CDT Therapy Visit [address] [phone] Ibeth Ellison MD [address] [place] [address] [phone] Maura Javier, PT [address] 352135 10/26/2023 11:30 AM CDT Therapy Visit [address] [phone] Ibeth Ellison MD [address] [place] [address] 40491 Dylan Mccann, OT 10/26/2023 12:15 PM CDT Therapy Visit [address] [phone] Ibeth Ellison MD [address] [place] [address] [phone] Maura Javier, PT [address] 962335 10/31/2023 10:15 AM CDT Therapy Visit [address] [address] Ibeth Ellison MD [address] [place] [address] [phone] Gabriella Bailey, OTR [address] [address] 10/31/2023 11:15 AM CDT Therapy Visit [address] [phone] Ibeth Ellison MD [address] [place] [address] [phone] Marquita Trivedi, PT 11/02/2023 10:00 AM CDT Therapy Visit [address] [address] Ibeth Ellison MD [address] [place] [address] [phone] Dylan Mccann, OT 11/02/2023 11:15 AM CDT Therapy Visit [address] [address] Ibeth Ellison MD [address] [place] [address] [phone] Marquita Trivedi, PT 11/07/2023 10:30 AM CDT Therapy Visit [address] [phone] Ibeth Ellison MD [address] [place] [address] [phone] Marquita Trivedi, PT 11/09/2023 10:30 AM CDT Therapy Visit [address] 28173-028014 Ibeth Ellison MD [address] [place] [address] [phone] Marquita Trivedi, PT 11/14/2023 12:15 PM CDT Therapy Visit [address] [phone] Ibeth Ellison MD [address] [place] [address] [phone] Mauar Javier Ap, PT [address] [place], [place] 283425 11/16/2023 10:30 AM CDT Therapy Visit [address] [phone] Ibeth Ellison MD [address] [place] [address] [phone] Marquita Trivedi, PT documented as of this encounter Visit Diagnoses Not on filedocumented in this encounter Care Teams Ad Setter Relationship Specialty Start Date End Date Kyra Perera [address] [place] [address] 09103 PCP - General Physician Shoe Turner 03/31/22 Angel Hollins MD 909 [facility] [id number] [place], [place] [id number] Neurology 07/20/23 Petra Dorado PA 24[address] [facility] [address] [place], [place] 327944 Physician Shoe Turner Physical Medicine and Rehabilitation 07/20/23 Angel Hollins MD 9 [facility], [place] [address] Assigned Neuroscience Provider 08/03/23 documented as of this encounter
--- OUTSIDE RECORDS SUMMARY | 2023-09-19 04:54 | XMS_ITS | Encounter Summary ---
Author Organization [facility] Address [address] [place] [address] 58857 Care Team Providers Care Swing Driver Name Role Phone Kyra Perera Primary Care Provider [phone] Angel Hollins MD Unavailable [phone] Petra Dorado Unavailable [phone] Angel Hollins MD Unavailable Reason for Visit * Rehab Therapy Integrated Services (Routine) - Authorized Specialty Diagnoses / Procedures Referred By Scott muniz Referred To Contact Diagnoses Scot DAUGHERTY PF RN sent order Procedures PT NEURO EVAL [address] [address] Referral ID Status Reason Start Date Expiration Date V isits Requested Visits Authorized [id number] Authorized 07/18/2023 03/12/2024 365 365 Encounter Details Date Type Department Care Team (Late st Contact Info) Description 08/16/2023 10:15 AM CDT Therapy Visit [address] [address] Ibeth Ellison MD [address] [place], [place] 164465 Gabriella Bailey OTTomi [address] [address] Cerebrovascular accident (CVA) due to thrombosis of [...] Description 09/19/2023 2:15 PM CDT Therapy Visit [address] [phone] Ibeth Ellison MD [address] [place] [address] [phone] Marquita Trivedi, PT 09/19/2023 3:00 PM CDT Therapy Visit [address] [phone] Ibeth Ellison MD [address] [place] [address] [phone] Gabriella Bailey, OTR [address] [address] 09/21/2023 2:15 PM CDT Therapy Visit [address] [phone] Ibeth Ellison MD [address] [place] [address] 135555 Marquita Trivedi, PT 09/21/2023 3:45 PM CDT Therapy Visit [address] [phone] Ibeth Ellison MD [address] [place] [address] [phone] Dylan Mccann OT 09/26/2023 9:45 AM CDT Therapy Visit [address] [phone] Ibeth Ellison MD [address] [place] [address] 636125 Maura Javier, PT [address] 536515 09/26/2023 11:00 AM CDT Therapy Visit [address] [phone] Ibeth Ellison MD [address] [place] [address] [phone] Gabriella Bailey, OTR [address] [address] 09/28/2023 10:30 AM CDT Therapy Visit [address] [phone] Ibeth Ellison MD [address] [place] [address] Maura Javier, PT [address] 936595 09/28/2023 11:30 AM CDT Therapy Visit [address] [phone] Ibeth Ellison MD [address] [place] [address] [phone] Dylan Mccann, OT 10/03/2023 9:30 AM CDT Therapy Visit [address] [phone] Ibeth Ellison MD [address] [place] [address] [phone] Gabriella Bailey, OTR [address] [address] 10/03/2023 10:30 AM CDT Therapy Visit [address] [phone] Ibeth Ellison MD [address] [place] [address] [phone] Marquita Trivedi, PT 10/05/2023 9:45 AM CDT Therapy Visit [address] [phone] Ibeth Ellison MD [address] [place] [address] [phone] Maura Javier Ap, PT [address] 796465 10/05/2023 10:45 AM CDT Therapy Visit [address] [phone] Ibeth Ellison MD [address] [place] [address] [phone] Dylan Mccann, OT 10/10/2023 9:30 AM CDT Therapy Visit [facility] [address] [address] Ibeth Ellison MD [address] [place] [address] [phone] Gabriella Bailey, OTR [address] [address] 10/10/2023 10:30 AM CDT Therapy Visit [address] [phone] Ibeth Ellison MD [address] [place] [address] [phone] Marquita Trivedi, PT 10/12/2023 9:45 AM CDT Therapy Visit [address] [phone] Ibeth Ellison MD [address] [place] [address] [phone] Maura Javier Ap, PT [address] 047295 10/12/2023 10:45 AM CDT Therapy Visit [address] [phone] Ibeth Ellison MD [address] [place] [address] [phone] Dylan Mccann, OT 10/17/2023 9:30 AM CDT Therapy Visit [address] [phone] Ibeth Ellison MD [address] [place] [address] [phone] Gabriella Bailey, OTR FV [address] [address] 10/17/2023 10:30 AM CDT Therapy Visit [address] [phone] Ibeth Ellison MD [address] [place] [address] [phone] Marquita Trivedi, PT 10/19/2023 10:15 AM CDT Therapy Visit [address] [phone] Ibeth Ellison MD [address] [place] [address] [phone] Annamaria Dennison [address] [address] 10/19/2023 11:15 AM CDT Therapy Visit [address] [phone] Ibeth Ellison MD [address] [place] [address] [phone] Marquita Trivedi, PT 10/24/2023 12:15 PM CDT Therapy Visit [address] [phone] Ibeth Ellison MD [address] [place] [address] [phone] Maura Javier Ap, PT [address] 737375 10/26/2023 11:30 AM CDT Therapy Visit [address] [phone] Ibeth Ellison MD [address] [place] [address] [phone] Dylan Mccann, OT 10/26/2023 12:15 PM CDT Therapy Visit [address] [phone] Ibeth Ellison MD [address] [place] [address] [phone] Maura Javier Ap, PT [address] 324195 10/31/2023 10:15 AM CDT Therapy Visit [address] [phone] Ibeth Ellison MD [address] [place] [address] [phone] Gabriella Bailey, OTR [address] [address] 10/31/2023 11:15 AM CDT Therapy Visit [address] [phone] Ibeth Ellison MD [address] [place] [address] [phone] Marquita Trivedi, PT 11/02/2023 10:00 AM CDT Therapy Visit [address] [phone] Ibeth Ellison MD [address] [place] [address] 73554 Dylan Mccann, OT 11/02/2023 11:15 AM CDT Therapy Visit [address] [phone] Ibeth Ellison MD [address] [place] [address] [phone] Marquita Trivedi, PT 11/07/2023 10:30 AM CDT Therapy Visit [address] [address] Ibeth Ellison MD [address] [place] [address] [phone] Marquita Trivedi, PT 11/09/2023 10:30 AM CDT Therapy Visit [address] [phone] Ibeth Ellison MD [address] [place] [address] [phone] Marquita Trivedi, PT 11/14/2023 12:15 PM CDT Therapy Visit [address] [address] Ibeth Ellison MD [address] [place] [address] [phone] Maura Javier Ap, PT [address] 159685 11/16/2023 10:30 AM CDT Therapy Visit [address] [phone] Ibeth Ellison MD [address] [place] [address] [phone] Marquita Trivedi PT documented as of this encounter Visit Diagnoses Diagnosis Cerebrovascular accident (CVA) due to thrombosis of left middle cerebral artery (H)- Primary documented in this encounter Care Teams Swing Driver Relationship Specialty Start Date End Date Kyra Perera [address] [place] [address] 59996 PCP - General Physician Composition Molder 03/31/22 Angel Hollins MD [address] [place] [address] 64549 Neurology 07/20/23 Petra Dorado PA [address] [place] [address] [address] Physician Composition Molder Physical Medicine and Rehabilitation 07/20/23 Angel Hollins MD [address] [address] Assigned Neuroscience Provider 08/03/23 documented as of this encounter
--- OUTSIDE RECORDS SUMMARY | 2023-09-19 04:54 | XMS_ITS | Encounter Summary ---
Author Organization [facility] Address [address] [place] [address] 74881 Care Team Providers Care Lane Attendant Name Role Phone Kyra Perera Arabella Primary Care Provider [phone] Angel Hollins MD Unavailable Petra Dorado Unavailable [phone] Angel Hollins MD Unavailable [phone] Reason for Visit * Rehab Therapy Integrated Services (Routine) - Authorized Specialty Diagnoses / Procedures Referred By Scott muniz Referred To Contact Diagnoses Scot DAUGHERTY PF RN sent order Procedures PT NEURO EVAL [address] [address] Referral ID Status Reason Start Date Expiration Date V isits Requested Visits Authorized [id number] Authorized 07/18/2023 03/12/2024 365 365 Encounter Details Date Type Department Care Team (Latest Contact Info) Description 08/24/2023 11:30 AM CDT Therapy Visit [address] [address] Ibeth Ellison MD [address] [place] [address] [phone] Dylan Mccann, OT Cerebrovascular accident (CVA) due [...] Description 09/19/2023 2:15 PM CDT Therapy Visit [address] [phone] Ibeth Ellison MD [address] [place] [address] [phone] Marquita Trivedi, PT 09/19/2023 3:00 PM CDT Therapy Visit [address] [phone] Ibeth Ellison MD [address] [place] [address] [phone] Gabriella Bailey, OTR [address] [address] 09/21/2023 2:15 PM CDT Therapy Visit [address] [phone] Ibeth Ellison MD [address] [place] [address] [phone] Marquita Trivedi, PT 09/21/2023 3:45 PM CDT Therapy Visit [address] [phone] Ibeth Ellison MD [address] [place] [address] 55455 Dylan Mccann, OT 09/26/2023 9:45 AM CDT Therapy Visit M [address] [address] Ibeth Ellison MD [address] [place] [address] 62780 Maura Javier, PT [address] [address] 09/26/2023 11:00 AM CDT Therapy Visit M [address] [phone] Ibeth Ellison MD [address] [place] [address] [phone] Gabriella Bailey, OTR [address] [address] 09/28/2023 10:30 AM CDT Therapy Visit M [address] [phone] Ibeth Ellison MD [address] [place] [address] [phone] Maura Javier, PT [address] [address] 09/28/2023 11:30 AM CDT Therapy Visit M [address] [phone] Ibeth Ellison MD [address] [place] [address] [phone] Dylan Mccann, OT 10/03/2023 9:30 AM CDT Therapy Visit [address] [phone] Ibeth Ellison MD [address] [place] [address] [phone] Gabriella Bailey, OTR [address] [address] 10/03/2023 10:30 AM CDT Therapy Visit [address] [phone] Ibeth Ellison MD [address] [place] [address] [phone] Marquita Trivedi, PT 10/05/2023 9:45 AM CDT Therapy Visit [address] [phone] Ibeth Ellison MD [address] [place] [address] [phone] Maura Javier, PT [address] 445165 10/05/2023 10:45 AM CDT Therapy Visit [address] [phone] Ibeth Ellison MD [address] [place] [address] [phone] Dylan Mccann, OT 10/10/2023 9:30 AM CDT Therapy Visit [address] [phone] Ibeth Ellison MD [address] [place] [address] [phone] Gabriella Bailey, OTTomi [facility] [address] [place] [address] 10/10/2023 10:30 AM CDT Therapy Visit [address] [phone] Ibeth Ellison MD [address] [place] [address] [phone] Marquita Trivedi, PT 10/12/2023 9:45 AM CDT Therapy Visit [address] [phone] Ibeth Ellison MD [address] [place] [address] [phone] Maura Javier Ap, PT [address] [phone] 10/12/2023 10:45 AM CDT Therapy Visit [address] [phone] Ibeth Ellison MD [address] [place] [address] [phone] Dylan Mccann, OT 10/17/2023 9:30 AM CDT Therapy Visit [address] [phone] Ibeth Ellison MD [address] [place] [address] [phone] Gabriella Bailey OTTomi [facility] [address] [address] 10/17/2023 10:30 AM CDT Therapy Visit [address] [address] Ibeth Ellison MD [address] [place] [address] [phone] Marquita Trivedi, PT 10/19/2023 10:15 AM CDT Therapy Visit [address] [phone] Ibeth Ellison MD [address] [place] [address] [phone] Annamaria Dennison [address] [address] 10/19/2023 11:15 AM CDT Therapy Visit [address] [phone] Ibeth Ellison MD [address] [place] [address] [phone] Marquita Trivedi, PT 10/24/2023 12:15 PM CDT Therapy Visit [address] 68471-380214 Ibeth Ellison MD [address] [place] [address] [phone] Maura Javier Ap, PT [address] 975265 10/26/2023 11:30 AM CDT Therapy Visit [address] [place] [address] Ibeth Ellison MD [address] [place] [address] [phone] Dylan Mccann, OT 10/26/2023 12:15 PM CDT Therapy Visit [address] [phone] Ibeth Ellison MD [address] [place] [address] 95216 Maura Javier Ap, PT [address] 391225 10/31/2023 10:15 AM CDT Therapy Visit [address] [address] Ibeth Ellison MD [address] [place] [address] [phone] Gabriella Bailey, OTR [address] [address] 10/31/2023 11:15 AM CDT Therapy Visit [address] [address] Ibeth Ellison MD [address] [place] [address] 08159 Marquita Trivedi, PT 11/02/2023 10:00 AM CDT Therapy Visit [address] [address] Ibeth Ellison MD [address] [place] [address] [phone] Dylan Mccann, OT 11/02/2023 11:15 AM CDT Therapy Visit [address] [phone] Ibeth Ellison MD [address] [place] [address] [phone] Marquita Trivedi, PT 11/07/2023 10:30 AM CDT Therapy Visit [address] [phone] Ibeth Ellison MD [address] [place] [address] [phone] Marquita Trivedi, PT 11/09/2023 10:30 AM CDT Therapy Visit [address] [phone] Ibeth Ellison MD [address] [place] [address] [phone] Marquita Trivedi, PT 11/14/2023 12:15 PM CDT Therapy Visit [address] [phone] Ibeth Ellison MD [address] [place] [address] [phone] Maura Javier Ap, PT [address] 591105 11/16/2023 10:30 AM CDT Therapy Visit [address] [phone] Ibeth Ellison MD [address] [place] [address] [phone] Marquita Trivedi, JESSICA documented as of this encounter Visit Diagnoses Diagnosis Cerebrovascular accident (CVA) due to thrombosis of left middle cerebral artery (H)- Primary Activity of daily living alteration Debility, unspecified documented in this encounter Care Teams Lane Attendant Relationship Specialty Start Date End Date Kyra Perera [address] [place] [address] PCP - General Physician Almond Paste Mixer 03/31/22 Angel Hollins MD [address] [address] Neurology 07/20/23 Petra Dorado PA [address] [place] [address] Physician Almond Paste Mixer Physical Medicine and Rehabilitation 07/20/23 Angel Hollins MD [address] [address] Assigned Neuroscience Provider 08/03/23 documented as of this encounter
--- OUTSIDE RECORDS SUMMARY | 2023-09-19 04:54 | XMS_ITS | Encounter Summary ---
Author Organization [facility] Address [address] [place] [address] 48071 Care Team Providers Care Recoater Name Role Phone Kyra Perera Primary Care Provider [phone] Angel Hollins MD Unavailable Petra Dorado Unavailable [phone] Angel Hollins MD Unavailable Reason for Visit * Rehab Therapy Integrated Services (Routine) - Authorized Specialty Diagnoses / Procedures Referred By Scott muniz Referred To Contact Diagnoses Scot DAUGHERTY PF RN sent order Procedures PT NEURO EVAL [address] [phone] Referral ID Status Reason Start Date Expiration Date V isits Requested Visits Authorized [id number] Authorized 07/18/2023 03/12/2024 365 365 Encounter Details Date Type Department Care Team (Latest Contact Info) Description 08/18/2023 2:00 PM CDT Therapy Visit [address] [address] Ibeth Ellison MD [address] [place] [address] Thuy Morrison, JB [facility] [place] 2[place]AB [address] [place] [address] Other speech disturbance (Primary Dx); Dysarthria due [...] Description 09/19/2023 2:15 PM CDT Therapy Visit [address] [phone] Ibeth Ellison MD [address] [place] [address] [phone] Marquita Trivedi, PT 09/19/2023 3:00 PM CDT Therapy Visit [address] [phone] Ibeth Ellison MD [address] [place] [address] [phone] Gabriella Bailey, OTR [facility] [address] [place] [address] 09/21/2023 2:15 PM CDT Therapy Visit [address] [phone] Ibeth Ellison MD [address] [place] [address] [phone] Marquita Trivedi, PT 09/21/2023 3:45 PM CDT Therapy Visit [address] [place] [address] Ibeth Ellison MD [address] [place] [address] [phone] Dylan Mccann OT 09/26/2023 9:45 AM CDT Therapy Visit [facility] [address] [place] [phone] Ibeth Ellison MD [address] [place] [address] 612[address] Maura Javier, PT [address] [place], [place] [address]645 09/26/2023 11:00 AM CDT Therapy Visit [address] [phone] Ibeth Ellison MD [address] [place] [address] 199825 Gabriella Bailey, OTR [address] [address] 09/28/2023 10:30 AM CDT Therapy Visit [address] [phone] Ibeth Ellison MD [address] [place] [address] [phone] Maura Javier, PT [address] [place], [place] 323895 09/28/2023 11:30 AM CDT Therapy Visit [address] [phone] Ibeth Ellison MD [address] [place] [address] [phone] Dylan Mccann, OT 10/03/2023 9:30 AM CDT Therapy Visit [address] 71062-[address] Ibeth Ellison MD [address] [place] [address] [phone] Gabriella Bailey, OTR [address] [address] 10/03/2023 10:30 AM CDT Therapy Visit [address] [phone] Ibeth Ellison MD [address] [place] [address] [phone] Marquita Trivedi, PT 10/05/2023 9:45 AM CDT Therapy Visit [address] [address] Ibeth Ellison MD [address] [place] [address] 528145 Maura Javier Ap, PT [address] 407595 10/05/2023 10:45 AM CDT Therapy Visit [address] [phone] Ibeth Ellison MD [address] [place] [address] [phone] Dylan Mccann, OT 10/10/2023 9:30 AM CDT Therapy Visit [address] 62606-[address] Ibeth Ellison MD [address] [place] [address] 618185 Gabriella Bailey, OTR [address] [address] 10/10/2023 10:30 AM CDT Therapy Visit [address] [phone] Ibeth Ellison MD [address] [place] [address] [phone] Marquita Trivedi, PT 10/12/2023 9:45 AM CDT Therapy Visit [address] [phone] Ibeth Ellison MD [address] [place] [address] [phone] Maura Javier Ap, PT [address] 909595 10/12/2023 10:45 AM CDT Therapy Visit [address] [phone] Ibteh Ellison MD [address] [place] [address] [phone] Dylan Mccann, OT 10/17/2023 9:30 AM CDT Therapy Visit [address] [phone] Ibeth Ellison MD [address] [place] [address] [phone] Gabriella Bailey, OTR [address] [address] 10/17/2023 10:30 AM CDT Therapy Visit [address] [phone] Ibeth Ellison MD [address] [place] [address] 267145 Marquita Trivedi, PT 10/19/2023 10:15 AM CDT Therapy Visit [address] [phone] Ibeth Ellison MD [address] [place] [address] [phone] Annamaria Dennison [address] [address] 10/19/2023 11:15 AM CDT Therapy Visit [address] [phone] Ibeth Ellison MD [address] [place] [address] [phone] Marquita Trivedi, PT 10/24/2023 12:15 PM CDT Therapy Visit [address] [phone] Ibeth Ellison MD [address] [place] [address] [phone] Maura Javier Ap, PT [address] 403965 10/26/2023 11:30 AM CDT Therapy Visit [address] [phone] Ibeth Ellison MD [address] [place] [address] [phone] Dylan Mccann, OT 10/26/2023 12:15 PM CDT Therapy Visit [address] [phone] Ibeth Ellison MD [address] [place] [address] 050995 Maura Javier Ap, PT [address] 931035 10/31/2023 10:15 AM CDT Therapy Visit [address] [phone] Ibeth Ellison MD [address] [place] [address] [phone] Gabriella Bailey, OTR [address] [address] 10/31/2023 11:15 AM CDT Therapy Visit [address] [phone] Ibeth Ellison MD [address] [place] [address] [phone] Marquita Trivedi, PT 11/02/2023 10:00 AM CDT Therapy Visit [address] [address] Ibeth Ellison MD [address] [place] [address] [phone] Dylan Mccann, OT 11/02/2023 11:15 AM CDT Therapy Visit [address] [address] Ibeth Ellison MD [address] [place] [address] [phone] Marquita Trivedi, PT 11/07/2023 10:30 AM CDT Therapy Visit [address] [address] Ibeth Ellison MD [address] [place] [address] [phone] Marquita Trivedi, PT 11/09/2023 10:30 AM CDT Therapy Visit [address] [phone] Ibeth Ellison MD [address] [place] [address] 105955 Marquita Trivedi, PT 11/14/2023 12:15 PM CDT Therapy Visit [address] [address] Ibeth Ellison MD [address] [place] [address] 443195 Maura Javier Ap, PT [address] 156155 11/16/2023 10:30 AM CDT Therapy Visit [address] [place] [address] Ibeth Ellison MD [address] [place] [address] [phone] Marquita Trivedi PT documented as of this encounter Visit Diagnoses Diagnosis Other speech disturbance- Primary Dysarthria due to acute stroke (H) Cerebrovascular accident (CVA) due to thrombosis of left middle cerebral artery (H) documented in this encounter Care Teams Recoater Relationship Specialty Start Date End Date Kyra Perera [address] [place] [address] PCP - General Physician Jde Developer 03/31/22 Angel Hollins MD [address] [place] [address] 66592 Neurology 07/20/23 Petra Dorado PA [address] [place] [address] [address] [place], [place] 624984 Physician Jde Developer Physical Medicine and Rehabilitation 07/20/23 Angel Hollins MD [address] [place] [address] 92516 Assigned Neuroscience Provider 08/03/23 documented as of this encounter
--- OUTSIDE RECORDS SUMMARY | 2023-09-19 04:54 | XMS_ITS | Encounter Summary ---
Author Organization [facility] Address [address] [place] [address] 58778 Care Team Providers Care Bi Solutions Architect Name Role Phone Kyra Perera Primary Care Provider Angel Hollins MD Unavailable [phone] Petra Dorado Unavailable [phone] Angel Hollins MD Unavailable Encounter Details Date Type Department Care Team (Latest Contact Info) Description 08/13/2023 Travel Social History Tobacco Use Types Packs/Day [...] Description 09/19/2023 2:15 PM CDT Therapy Visit [facility] [address] [address] Ibeth Ellison MD [address] [place] [address] Marquita Trivedi, JESSICA 09/19/2023 3:00 PM CDT Therapy Visit [address] [phone] Ibeth Ellison MD [address] [place] [address] [phone] Gabriella Bailey, OTR [address] [address] 09/21/2023 2:15 PM CDT Therapy Visit [address] [phone] Ibeth Ellison MD [address] [place] [address] [phone] Marquita Trivedi, PT 09/21/2023 3:45 PM CDT Therapy Visit [address] [phone] Ibeth Ellison MD [address] [place] [address] [phone] Dylan Mccann, OT 09/26/2023 9:45 AM CDT Therapy Visit [address] [address] Ibeth Ellison MD [address] [place] [address] [phone] Maura Javier, PT [address] 548185 09/26/2023 11:00 AM CDT Therapy Visit [address] [phone] Ibeth Ellison MD [address] [place] [address] 545[address] Gabriella Bailey, OTR [address] [address] 09/28/2023 10:30 AM CDT Therapy Visit [address] [phone] Ibeth Ellison MD [address] [place] [address] [phone] Maura Javier, PT [address] 285475 09/28/2023 11:30 AM CDT Therapy Visit [address] [phone] Ibeth Ellison MD [address] [place] [address] [phone] Dylan Mccann, OT 10/03/2023 9:30 AM CDT Therapy Visit [address] [phone] Ibeth Ellison MD [address] [place] [address] 344175 Gabriella Bailey, OTR [address] [address] 10/03/2023 10:30 AM CDT Therapy Visit [address] [phone] Ibeth Ellison MD [address] [place] [address] [phone] Marquita Trivedi, PT 10/05/2023 9:45 AM CDT Therapy Visit [address] [phone] Ibeth Ellison MD [address] [place] [address] 150305 Maura Javier Ap, PT [address] [phone] 10/05/2023 10:45 AM CDT Therapy Visit [address] [phone] Ibeth Ellison MD [address] [place] [address] [phone] Dylan Mccann, OT 10/10/2023 9:30 AM CDT Therapy Visit [address] [phone] Ibeth Ellison MD [address] [place] [address] [phone] Gabriella Bailey, OTR [address] [address] 10/10/2023 10:30 AM CDT Therapy Visit [address] [phone] Ibeth Ellison MD [address] [place] [address] [phone] Marquita Trivedi, PT 10/12/2023 9:45 AM CDT Therapy Visit [address] [phone] Ibeth Ellison MD [address] [place] [address] 46809 Maura Javier Ap, PT [address] [place] [address] 10/12/2023 10:45 AM CDT Therapy Visit [address] [phone] Ibeth Ellison MD [address] [place] [address] [phone] Dylan Mccann, OT 10/17/2023 9:30 AM CDT Therapy Visit [address] [address] Ibeth Ellison MD [address] [place] [address] [phone] Gbariella Bailey, OTR [address] [address] 10/17/2023 10:30 AM CDT Therapy Visit [address] [address] Ibeth Ellison MD [address] [place] [address] [phone] Marquita Trivedi, PT 10/19/2023 10:15 AM CDT Therapy Visit [address] [phone] Ibeth Ellison MD [address] [place] [address] 480225 Annamaria Dennison [address] [address] 10/19/2023 11:15 AM CDT Therapy Visit [address] [phone] Ibeth Ellison MD [address] [place] [address] [phone] Marquita Trivedi, PT 10/24/2023 12:15 PM CDT Therapy Visit [address] [phone] Ibeth Ellison MD [address] [place] [address] [phone] Maura Javier, PT [address] 350355 10/26/2023 11:30 AM CDT Therapy Visit [address] [phone] Ibeth Ellison MD [address] [place] [address] 82348 Dylan Mccann, OT 10/26/2023 12:15 PM CDT Therapy Visit [address] 51663-541914 Ibeth Ellison MD [address] [place] [address] 924115 Maura Javier, PT [address] 613675 10/31/2023 10:15 AM CDT Therapy Visit [address] [address] Ibeth Ellison MD [address] [place] [address] [phone] Gabriella Bailey, OTR [address] [address] 10/31/2023 11:15 AM CDT Therapy Visit [address] [phone] Ibeth Ellison MD [address] [place] [address] [phone] Marquita Trivedi, PT 11/02/2023 10:00 AM CDT Therapy Visit [address] [address] Ibeth Ellison MD [address] [place] [address] [phone] Dylan Mccann, OT 11/02/2023 11:15 AM CDT Therapy Visit [address] [address] Ibeth Ellison MD [address] [place] [address] 149355 Marquita Trivedi, PT 11/07/2023 10:30 AM CDT Therapy Visit [address] [phone] Ibeth Ellison MD [address] [place] [address] [phone] Marquita Trivedi, PT 11/09/2023 10:30 AM CDT Therapy Visit [address] [phone] Ibeth Ellison MD [address] [place] [address] [phone] Marquita Trivedi, PT 11/14/2023 12:15 PM CDT Therapy Visit [address] [phone] Ibeth Ellison MD [address] [place] [address] [phone] Maura Javier Ap, PT [address] [place], [place] 749965 11/16/2023 10:30 AM CDT Therapy Visit [address] [phone] Ibeth Ellison MD [address] [place] [address] [phone] Marquita Trivedi, PT documented as of this encounter Visit Diagnoses Not on filedocumented in this encounter Care Teams Bi Solutions Architect Relationship Specialty Start Date End Date Kyra Perera [address] [place] [address] 45474 PCP - General Physician Translational Specialist 03/31/22 Angel Hollins MD 909 [facility] [id number] [place], [place] [id number] Neurology 07/20/23 Petra Dorado PA 2450 [facility] 213 [place], [place] [phone] Physician Translational Specialist Physical Medicine and Rehabilitation 07/20/23 Angel Hollins MD 9 [facility], [place] [address] Assigned Neuroscience Provider 08/03/23 documented as of this encounter
--- OUTSIDE RECORDS SUMMARY | 2023-09-19 04:54 | XMS_ITS | Encounter Summary ---
Author Organization [facility] Address [address] [place] [address] 05471 Care Team Providers Care Patient Service Representative Name Role Phone Kyra Perera Primary Care Provider Angel Hollins MD Unavailable Petra Dorado Unavailable [phone] Angel Hollins MD Unavailable Encounter Details Date Type Department Care Team (Latest Contact Info) Description 08/24/2023 Travel Social History Tobacco Use Types Packs/Day [...] Description 09/19/2023 2:15 PM CDT Therapy Visit [facility] [address] [address] Ibeth Ellison MD [address] [place] [address] Marquita Trivedi, JESSICA 09/19/2023 3:00 PM CDT Therapy Visit [address] [phone] Ibeth Ellison MD [address] [place] [address] [phone] Gabriella Bailey, OTR [address] [address] 09/21/2023 2:15 PM CDT Therapy Visit [address] [phone] Ibeth Ellison MD [address] [place] [address] 115165 Marquita Trivedi, PT 09/21/2023 3:45 PM CDT Therapy Visit [address] [phone] Ibeth Ellison MD [address] [place] [address] [phone] Dylan Mccann, OT 09/26/2023 9:45 AM CDT Therapy Visit [address] [address] Ibeth Ellison MD [address] [place] [address] 115165 Maura Javier, PT [address] 403275 09/26/2023 11:00 AM CDT Therapy Visit [address] [address]-5714 Ibeth Ellison MD [address] [place] [address] 70363 Gabriella Bailey, OTR [address] [address] 09/28/2023 10:30 AM CDT Therapy Visit [address] [phone] Ibeth Ellison MD [address] [place] [address] [phone] Maura Javier, PT [address] 988855 09/28/2023 11:30 AM CDT Therapy Visit [address] [phone] Ibeth Ellison MD [address] [place] [address] [phone] Dylan Mccann, OT 10/03/2023 9:30 AM CDT Therapy Visit [address] 98292-[address] Ibeth Ellison MD [address] [place] [address] [phone] Gabriella Bailey, OTR [address] [address] 10/03/2023 10:30 AM CDT Therapy Visit [address] [phone] Ibeth Ellison MD [address] [place] [address] [phone] Marquita Trivedi, PT 10/05/2023 9:45 AM CDT Therapy Visit [address] [phone] Ibeth Ellison MD [address] [place] [address] [phone] Maura Javier Ap, PT [address] [id number] 10/05/2023 10:45 AM CDT Therapy Visit [address] [phone] Ibeth Ellison MD [address] [place] [address] [phone] Dylan Mccann, OT 10/10/2023 9:30 AM CDT Therapy Visit [address] [phone] Ibeth Ellison MD [address] [place] [address] [phone] Gabriella Bailey, OTR [address] [address] 10/10/2023 10:30 AM CDT Therapy Visit [address] [phone] Ibeth Ellison MD [address] [place] [address] [phone] Marquita Trivedi, PT 10/12/2023 9:45 AM CDT Therapy Visit [address] [phone] Ibeth Ellison MD [address] [place] [address] 20789 Maura Javier Ap, PT [address] [place] [address] 10/12/2023 10:45 AM CDT Therapy Visit [address] [phone] Ibeth Ellison MD [address] [place] [address] [phone] Dylan Mccann, OT 10/17/2023 9:30 AM CDT Therapy Visit [address] [address] Ibeth Ellison MD [address] [place] [address] [phone] Gabriella Bailey, OTR [address] [address] 10/17/2023 10:30 AM CDT Therapy Visit [address] [address] Ibeth Ellison MD [address] [place] [address] [phone] Marquita Trivedi, PT 10/19/2023 10:15 AM CDT Therapy Visit [address] [phone] Ibeth Ellison MD [address] [place] [address] [phone] Annamaria Dennison [address] [address] 10/19/2023 11:15 AM CDT Therapy Visit [address] [phone] Ibeth Ellison MD [address] [place] [address] [phone] Marquita Trivedi, PT 10/24/2023 12:15 PM CDT Therapy Visit [address] [phone] Ibeth Ellison MD [address] [place] [address] [phone] Maura Javier, PT [address] 678505 10/26/2023 11:30 AM CDT Therapy Visit [address] [phone] Ibeth Ellison MD [address] [place] [address] 95088 Dylan Mccann, OT 10/26/2023 12:15 PM CDT Therapy Visit [address] [phone] Ibeth Ellison MD [address] [place] [address] [phone] Maura Javier, PT [address] 045045 10/31/2023 10:15 AM CDT Therapy Visit [address] [address] Ibeth Ellison MD [address] [place] [address] [phone] Gabriella Bailey, OTR [address] [address] 10/31/2023 11:15 AM CDT Therapy Visit [address] [phone] Ibeth Ellison MD [address] [place] [address] [phone] Marquita Trivedi, PT 11/02/2023 10:00 AM CDT Therapy Visit [address] [address] Ibeth Ellison MD [address] [place] [address] [phone] Dylan Mccann, OT 11/02/2023 11:15 AM CDT Therapy Visit [address] [address] Ibeth Ellison MD [address] [place] [address] [phone] Marquita Trivedi, PT 11/07/2023 10:30 AM CDT Therapy Visit [address] 39706-489214 Ibeth Ellison MD [address] [place] [address] [phone] Marquita Trivedi, PT 11/09/2023 10:30 AM CDT Therapy Visit [address] 13893-589414 Ibeth Ellison MD [address] [place] [address] [phone] Marquita Trivedi, PT 11/14/2023 12:15 PM CDT Therapy Visit [address] [phone] Ibeth Ellison MD [address] [place] [address] [phone] Maura Javier Ap, PT [address] [place], [place] 621795 11/16/2023 10:30 AM CDT Therapy Visit [address] [phone] Ibeth Ellison MD [address] [place] [address] [phone] Marquita Trivedi, PT documented as of this encounter Visit Diagnoses Not on filedocumented in this encounter Care Teams Patient Service Representative Relationship Specialty Start Date End Date Kyra Perera [address] [place] [address] 87542 PCP - General Physician Pediatrician 03/31/22 Angel Hollins MD 909 [facility] [id number] [place], [place] [id number] Neurology 07/20/23 Petra Dorado PA 2450 [facility] 213 [place], [place] 184294 Physician Pediatrician Physical Medicine and Rehabilitation 07/20/23 Angel Hollins MD 9 [facility], [place] [address] Assigned Neuroscience Provider 08/03/23 documented as of this encounter
--- OUTSIDE RECORDS SUMMARY | 2023-09-19 04:54 | XMS_ITS | Encounter Summary ---
Author Organization [facility] Address [address] [place] [address] 8[address] Care Team Providers Care Lead Dental Assistant Name Role Phone Kyra Perera Primary Care Provider [phone] Angel Hollins MD Unavailable Petra Dorado Unavailable [phone] Angel Hollins MD Unavailable Reason for Visit * Rehab Therapy Integrated Services (Routine) - Authorized Specialty Diagnoses / Procedures Referred By Scott muniz Referred To Contact Diagnoses Scot DAUGHERTY PF RN sent order Procedures PT NEURO EVAL [address] [address] Referral ID Status Reason Start Date Expiration Date V isits Requested Visits Authorized [id number] Authorized 07/18/2023 03/12/2024 365 365 Encounter Details Date Type Department Care Team (Late st Contact Info) Description 08/18/2023 3:00 PM CDT Therapy Visit [address] [address] Ibeth Ellison MD [address] [place] [address] [phone] Gabriella Bailey, OTTomi [address] [address] Cerebrovascular accident (CVA) due to thrombosis of [...] Description 09/19/2023 2:15 PM CDT Therapy Visit [address] [phone] Ibeth Ellison MD [address] [place] [address] [phone] Marquita Trivedi, PT 09/19/2023 3:00 PM CDT Therapy Visit [address] [address]-202214 Ibeth Ellison MD [address] [place] [address] [phone] Gabriella Bailey, OTR [address] [address] 09/21/2023 2:15 PM CDT Therapy Visit [address] [phone] Ibeth Ellison MD [address] [place] [address] [phone] Marquita Trivedi, PT 09/21/2023 3:45 PM CDT Therapy Visit [address] [phone] Ibeth Ellison MD [address] [place] [address] [phone] Dylan Mccann OT 09/26/2023 9:45 AM CDT Therapy Visit [address] [phone] Ibeth Ellison MD [address] [place] [address] [phone] Maura Javier, PT [address] 955805 09/26/2023 11:00 AM CDT Therapy Visit [address] [phone] Ibeth Ellison MD [address] [place] [address] [phone] Gabriella Bailey, OTR [address] [address] 09/28/2023 10:30 AM CDT Therapy Visit [address] [address]-035414 Ibeth Ellison MD [address] [place] [address] 18[address] Maura Javier, PT [address] 990835 09/28/2023 11:30 AM CDT Therapy Visit [address] [phone] Ibeth Ellison MD [address] [place] [address] [phone] Dylan Mccann, OT 10/03/2023 9:30 AM CDT Therapy Visit [address] [phone] Ibeth Ellison MD [address] [place] [address] [phone] Gabriella Bailey, OTR [address] [address] 10/03/2023 10:30 AM CDT Therapy Visit [address] [phone] bIeth Ellison MD [address] [place] [address] [phone] Marquita Trivedi, PT 10/05/2023 9:45 AM CDT Therapy Visit [address] [phone] Ibeth Ellison MD [address] [place] [address] [phone] Maura Javier Ap, PT [address] 520925 10/05/2023 10:45 AM CDT Therapy Visit [address] [phone] Ibeth Ellison MD [address] [place] [address] [phone] Dylan Mccann, OT 10/10/2023 9:30 AM CDT Therapy Visit [facility] [address] [address] Ibeth Ellison MD [address] [place] [address] [phone] Gabriella Bailey, OTR [address] [address] 10/10/2023 10:30 AM CDT Therapy Visit [address] [phone] Ibeth Ellison MD [address] [place] [address] [phone] Marquita Trivedi, PT 10/12/2023 9:45 AM CDT Therapy Visit [address] [phone] Ibeth Ellison MD [address] [place] [address] [phone] Maura Javier Ap, PT [address] 799105 10/12/2023 10:45 AM CDT Therapy Visit [address] [phone] Ibeth Ellison MD [address] [place] [address] [phone] Dylan Mccann, OT 10/17/2023 9:30 AM CDT Therapy Visit [address] [phone] Ibeth Ellison MD [address] [place] [address] [phone] Gabriella Bailey, OTR FV [address] [address] 10/17/2023 10:30 AM CDT Therapy Visit [address] [phone] Ibeth Ellison MD [address] [place] [address] [phone] Marquita Trivedi, PT 10/19/2023 10:15 AM CDT Therapy Visit [address] [phone] Ibeth Ellison MD [address] [place] [address] [phone] Annamaria Dennison [address] [address] 10/19/2023 11:15 AM CDT Therapy Visit [address] [phone] Ibeth Ellison MD [address] [place] [address] [phone] Marquita Trivedi, PT 10/24/2023 12:15 PM CDT Therapy Visit [address] [phone] Ibeth Ellison MD [address] [place] [address] [phone] Maura Javier Ap, PT [address] 978905 10/26/2023 11:30 AM CDT Therapy Visit [address] [phone] Ibeth Ellison MD [address] [place] [address] [phone] Dylan Mccann, OT 10/26/2023 12:15 PM CDT Therapy Visit [address] [phone] Ibeth Ellison MD [address] [place] [address] [phone] Maura Javier Ap, PT [address] 830535 10/31/2023 10:15 AM CDT Therapy Visit [address] [phone] Ibeth Ellison MD [address] [place] [address] [phone] Gabriella Bailey, OTR [address] [address] 10/31/2023 11:15 AM CDT Therapy Visit [address] [phone] Ibeth Ellison MD [address] [place] [address] [phone] Marquita Trivedi, PT 11/02/2023 10:00 AM CDT Therapy Visit [address] [phone] Ibeth Ellison MD [address] [place] [address] [phone] Dylan Mccann, OT 11/02/2023 11:15 AM CDT Therapy Visit [address] [phone] Ibeth Ellison MD [address] [place] [address] [phone] Marquita Trivedi, PT 11/07/2023 10:30 AM CDT Therapy Visit [address] [address] Ibeth Ellison MD [address] [place] [address] [phone] Marquita Trivedi, PT 11/09/2023 10:30 AM CDT Therapy Visit [address] [phone] Ibeth Ellison MD [address] [place] [address] [phone] Marquita Trivedi, PT 11/14/2023 12:15 PM CDT Therapy Visit [address] [address] Ibeth Ellison MD [address] [place] [address] [phone] Maura Javier Ap, PT [address] 399805 11/16/2023 10:30 AM CDT Therapy Visit [address] [phone] Ibeth Ellison MD [address] [place] [address] [phone] Marquita Trivedi PT documented as of this encounter Visit Diagnoses Diagnosis Cerebrovascular accident (CVA) due to thrombosis of left middle cerebral artery (H)- Primary documented in this encounter Care Teams Lead Dental Assistant Relationship Specialty Start Date End Date Kyra Perera [address] [place] [address] 18567 PCP - General Physician Dining Room Host/Hostess 03/31/22 Angel Hollins MD [address] [place] [address] Neurology 07/20/23 Petra Dorado PA [address] [place] [address] [address] Physician Dining Room Host/Hostess Physical Medicine and Rehabilitation 07/20/23 Angel Hollins MD [address] [address] Assigned Neuroscience Provider 08/03/23 documented as of this encounter
--- OUTSIDE RECORDS SUMMARY | 2023-09-19 04:54 | XMS_ITS | Encounter Summary ---
Author Organization [facility] Address [address] [place] [address] 37708 Care Team Providers Care Rust Proofer Name Role Phone Kyra Perera Primary Care Provider [phone] Angel Hollins MD Unavailable Petra Dorado Unavailable [phone] Angel Hollins MD Unavailable Reason for Visit * Rehab Therapy Integrated Services (Routine) - Authorized Specialty Diagnoses / Procedures Referred By Scott muniz Referred To Contact Diagnoses Scot DAUGHERTY PF RN sent order Procedures PT NEURO EVAL [address] [address] Referral ID Status Reason Start Date Expiration Date V isits Requested Visits Authorized [id number] Authorized 07/18/2023 03/12/2024 365 365 Encounter Details Date Type Department Care Team (Late st Contact Info) Description 08/17/2023 10:15 AM CDT Therapy Visit [address] [address] Ibeth Ellison MD [address] [place] [address] Marielena Quinteros, PT [facility] [address] [place] [address] Cerebrovascular accident (CVA) due to thrombosis of [...] Description 09/19/2023 2:15 PM CDT Therapy Visit [address] [phone] Ibeth Ellison MD [address] [place] [address] [phone] Marquita Trivedi, PT 09/19/2023 3:00 PM CDT Therapy Visit [address] [phone] Ibeth Ellison MD [address] [place] [address] [phone] Gabriella Bailey, OTR [address] [address] 09/21/2023 2:15 PM CDT Therapy Visit [address] [phone] Ibeth Ellison MD [address] [place] [address] [phone] Marquita Trivedi, PT 09/21/2023 3:45 PM CDT Therapy Visit [address] [phone] Ibeth Ellison MD [address] [place] [address] [phone] Dylan Mccann OT 09/26/2023 9:45 AM CDT Therapy Visit [address] [phone] Ibeth Ellison MD [address] [place] [address] Maura Javier, PT [address] 262325 09/26/2023 11:00 AM CDT Therapy Visit [address] [phone] Ibeth Ellison MD [address] [place] [address] [phone] Gabriella Bailey, OTR [address] [address] 09/28/2023 10:30 AM CDT Therapy Visit [address] 69451-920014 Ibeth Ellison MD [address] [place] [address] [phone] Maura Javier, PT [address] 676585 09/28/2023 11:30 AM CDT Therapy Visit [address] [phone] Ibeth Ellison MD [address] [place] [address] [phone] Dylan Mccann, OT 10/03/2023 9:30 AM CDT Therapy Visit [address] [phone] Ibeth Ellison MD [address] [place] [address] [phone] Gabriella Bailey, OTR [address] [address] 10/03/2023 10:30 AM CDT Therapy Visit [address] [phone] Ibeth Ellison MD [address] [place] [address] [phone] Marquita Trivedi, PT 10/05/2023 9:45 AM CDT Therapy Visit [address] [phone] Ibeth Ellison MD [address] [place] [address] [phone] Maura Javier Ap, PT [address] 713035 10/05/2023 10:45 AM CDT Therapy Visit [address] [phone] Ibeth Ellison MD [address] [place] [address] [phone] Dylan Mccann, OT 10/10/2023 9:30 AM CDT Therapy Visit [address] [phone] Ibeth Ellison MD [address] [place] [address] [phone] Gabriella Bailey, OTR [address] [address] 10/10/2023 10:30 AM CDT Therapy Visit [address] [phone] Ibeth Ellison MD [address] [place] [address] Marquita Trivedi, PT 10/12/2023 9:45 AM CDT Therapy Visit [address] [address]-5714 Ibeth Ellison MD [address] [place] [address] [phone] Maura Javier Ap, PT [address] 802585 10/12/2023 10:45 AM CDT Therapy Visit [address] [phone] Ibeth Ellison MD [address] [place] [address] [phone] Dylan Mccann, OT 10/17/2023 9:30 AM CDT Therapy Visit [address] [phone] Ibeth Ellison MD [address] [place] [address] Gabriella Bailey, OTR [address] [address] 10/17/2023 10:30 AM CDT Therapy Visit [address] [phone] Ibeth Ellison MD [address] [place] [address] [phone] Marquita Trivedi, PT 10/19/2023 10:15 AM CDT Therapy Visit [address] [phone] Ibeth Ellison MD [address] [place] [address] [phone] Annamaria Dennison [address] [address] 10/19/2023 11:15 AM CDT Therapy Visit [address] [phone] Ibeth Ellison MD [address] [place] [address] [phone] Marquita Trivedi, PT 10/24/2023 12:15 PM CDT Therapy Visit [address] [phone] Ibeth Ellison MD [address] [place] [address] [phone] Maura Javier Ap, PT [address] 530985 10/26/2023 11:30 AM CDT Therapy Visit [address] [phone] Ibeth Ellison MD [address] [place] [address] [phone] Dylan Mccann, OT 10/26/2023 12:15 PM CDT Therapy Visit [address] [phone] Ibeth Ellison MD [address] [place] [address] [phone] Maura Javier Ap, PT [address] 758475 10/31/2023 10:15 AM CDT Therapy Visit [address] [phone] Ibeth Ellison MD [address] [place] [address] [phone] Gabriella Bailey, OTR [address] [address] 10/31/2023 11:15 AM CDT Therapy Visit [address] [phone] Ibeth Ellison MD [address] [place] [address] [phone] Marquita Trivedi, PT 11/02/2023 10:00 AM CDT Therapy Visit [address] [phone] Ibeth Ellison MD [address] [place] [address] [phone] Dylan Mccann, OT 11/02/2023 11:15 AM CDT Therapy Visit [address] [phone] Ibeth Ellison MD [address] [place] [address] [phone] Marquita Trivedi, PT 11/07/2023 10:30 AM CDT Therapy Visit [address] [address] Ibeth Ellison MD [address] [place] [address] [phone] Marquita Trivedi, PT 11/09/2023 10:30 AM CDT Therapy Visit [address] [phone] Ibeth Ellison MD [address] [place] [address] [phone] Marquita Trivedi, PT 11/14/2023 12:15 PM CDT Therapy Visit [address] [address] Ibeth Ellison MD [address] [place] [address] [phone] Maura Javier, PT [address] 653175 11/16/2023 10:30 AM CDT Therapy Visit [address] [phone] Ibeth Ellison MD [address] [place] [address] [phone] Marquita Trivedi PT documented as of this encounter Visit Diagnoses Diagnosis Cerebrovascular accident (CVA) due to thrombosis of left middle cerebral artery (H)- Primary documented in this encounter Care Teams Rust Proofer Relationship Specialty Start Date End Date Kyra Perera [address] [place] [address] PCP - General Physician Oracle Fusion Middleware Developer 03/31/22 Angel Hollins MD [address] [place] [address] 9[address] Neurology 07/20/23 Petra Dorado PA [address] [place] [address] Physician [employer] Fusion Middleware Developer Physical Medicine and Rehabilitation 07/20/23 Angel Hollins MD [address] [address] Assigned Neuroscience Provider 08/03/23 documented as of this encounter
--- OUTSIDE RECORDS SUMMARY | 2023-09-19 04:54 | XMS_ITS | Encounter Summary ---
Author Organization [facility] Address [address] [place] [address] 41331 Care Team Providers Care Air/Ocean Export Clerk Name Role Phone Kyra Perera Primary Care Provider [phone] Angel Hollins MD Unavailable Petra Dorado Unavailable [phone] Angel Hollins MD Unavailable Reason for Visit * Rehab Therapy Integrated Services (Routine) - Authorized Specialty Diagnoses / Procedures Referred By Scott t Referred To Contact Diagnoses Scot DAUGHERTY PF RN sent order Procedures PT NEURO EVAL [address] [address] Referral ID Status Reason Start Date Expiration Date V isits Requested Visits Authorized [id number] Authorized 07/18/2023 03/12/2024 365 365 Encounter Details Date Type Department Care Team (Latest Contact Info) Description 08/24/2023 10:15 AM CDT Therapy Visit [address] [address] Ibeth Ellison MD [address] [place] [address] Sylwia Stuart, PT [facility] [address] [address] 90 Cerebrovascular accident (CVA) due to thrombosis of [...] Description 09/19/2023 2:15 PM CDT Therapy Visit [address] [phone] Ibeth Ellison MD [address] [place] [address] [phone] Marquita Trivedi, PT 09/19/2023 3:00 PM CDT Therapy Visit [address] [phone] Ibeth Ellison MD [address] [place] [address] [phone] Gabriella Bailey, OTR [address] [address] 09/21/2023 2:15 PM CDT Therapy Visit [address] [phone] Ibeth Ellison MD [address] [place] [address] [phone] Marquita Trivedi, PT 09/21/2023 3:45 PM CDT Therapy Visit [address] [phone] Ibeth Ellison MD [address] [place] [address] [phone] Dylan Mccann, OT 09/26/2023 9:45 AM CDT Therapy Visit [address] 43334-983014 Ibeth Ellison MD [address] [place] [address] 07923 Maura Javier, PT [address] 341545 09/26/2023 11:00 AM CDT Therapy Visit [address] [phone] Ibeth Ellison MD [address] [place] [address] [phone] Gabriella Bailey, OTR [address] [address] 09/28/2023 10:30 AM CDT Therapy Visit [address] [phone] Ibeth Ellison MD [address] [place] [address] 47[address] Maura Javier, PT [address] 927065 09/28/2023 11:30 AM CDT Therapy Visit [address] [phone] Ibeth Ellison MD [address] [place] [address] [phone] Dylan Mccann, OT 10/03/2023 9:30 AM CDT Therapy Visit [address] [phone] Ibeth Ellsion MD [address] [place] [address] [phone] Gabriella Bailey, OTR [address] [address] 10/03/2023 10:30 AM CDT Therapy Visit [address] [phone] Ibeth Ellison MD [address] [place] [address] [phone] Marquita Trivedi, PT 10/05/2023 9:45 AM CDT Therapy Visit [address] [phone] Ibeth Ellison MD [address] [place] [address] [phone] Maura Javier Ap, PT [address] 839295 10/05/2023 10:45 AM CDT Therapy Visit [address] [phone] Ibeth Ellison MD [address] [place] [address] [phone] Dylan Mccann, OT 10/10/2023 9:30 AM CDT Therapy Visit [address] [phone] Ibeth Ellison MD [address] [place] [address] [phone] Gabriella Bailey, OTR [address] [address] 10/10/2023 10:30 AM CDT Therapy Visit [address] [phone] Ibeth Ellison MD [address] [place] [address] [phone] Marquita Trivedi, PT 10/12/2023 9:45 AM CDT Therapy Visit [address] [phone] Ibeth Ellison MD [address] [place] [address] [phone] Maura Javier, PT [address] 058775 10/12/2023 10:45 AM CDT Therapy Visit [address] [phone] Ibeth Ellison MD [address] [place] [address] [phone] Dylan Mccann, OT 10/17/2023 9:30 AM CDT Therapy Visit [address] [phone] Ibeth Ellison MD [address] [place] [address] [phone] Gabriella Bailey, OTR [address] [address] 10/17/2023 10:30 AM CDT Therapy Visit [address] [phone] Ibeth Ellison MD [address] [place] [address] [phone] Marquita Trivedi, PT 10/19/2023 10:15 AM CDT Therapy Visit [address] [phone] Ibeth Ellison MD [address] [place] [address] [phone] Annamaria Dennison [address] [address] 10/19/2023 11:15 AM CDT Therapy Visit [address] [phone] Ibeth Ellison MD [address] [place] [address] [phone] Marquita Trivedi, PT 10/24/2023 12:15 PM CDT Therapy Visit [address] [phone] Ibeth Ellison MD [address] [place] [address] [phone] Maura Javier Ap, PT [address] 005325 10/26/2023 11:30 AM CDT Therapy Visit [address] [phone] Ibeth Ellison MD [address] [place] [address] [phone] Dylan Mccann, OT 10/26/2023 12:15 PM CDT Therapy Visit [address] [phone] Ibeth Ellison MD [address] [place] [address] [phone] Maura Javier Ap, PT [address] 530445 10/31/2023 10:15 AM CDT Therapy Visit [address] [phone] Ibeth Ellison MD [address] [place] [address] [phone] Gabriella Bailey, OTR [address] [address] 10/31/2023 11:15 AM CDT Therapy Visit [address] [phone] Ibeth Ellison MD [address] [place] [address] [phone] Marquita Trivedi, PT 11/02/2023 10:00 AM CDT Therapy Visit [address] [phone] Ibeth Ellison MD [address] [place] [address] [phone] Dylan Mccann, OT 11/02/2023 11:15 AM CDT Therapy Visit [address] [address] Ibeth Ellison MD [address] [place] [address] [phone] Marquita Trivedi, PT 11/07/2023 10:30 AM CDT Therapy Visit [address] [address] Ibeth Ellison MD [address] [place] [address] [phone] Marquita Trivedi, PT 11/09/2023 10:30 AM CDT Therapy Visit [address] 51777-730314 Ibeth Ellison MD [address] [place] [address] [phone] Marquita Trivedi, PT 11/14/2023 12:15 PM CDT Therapy Visit [address] [address] Ibeth Ellison MD [address] [place] [address] [phone] Maura Javier, PT [address] 857085 11/16/2023 10:30 AM CDT Therapy Visit [address] [phone] Ibeth Ellison MD [address] [place] [address] [phone] Marquita Trivedi PT documented as of this encounter Visit Diagnoses Diagnosis Cerebrovascular accident (CVA) due to 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
[2023-09-19 04:55] LABS: Lipase* 132 U/L (23-300)
--- OUTSIDE RECORDS SUMMARY | 2023-09-19 04:55 | XMS_ITS | Encounter Summary ---
Author Organization [facility] Address [address] [place] [address] Care Team Providers Care Commissary Worker Name Role Phone Kyra Perera Primary Care Provider [phone] Angel Hollins MD Unavailable Petra Dorado Unavailable [phone] Angel Hollins MD Unavailable Reason for Visit * Rehab Therapy Integrated Services (Routine) - Authorized Specialty Diagnoses / Procedures Referred By Scott muniz Referred To Contact Diagnoses Scot DAUGHERTY PF RN sent order Procedures PT NEURO EVAL [address] [address] Referral ID Status Reason Start Date Expiration Date V isits Requested Visits Authorized [id number] Authorized 07/18/2023 03/12/2024 365 365 Encounter Details Date Type Department Care Team (Late st Contact Info) Description 08/04/2023 12:45 PM CDT Therapy Visit [address] [address] Ibeth Ellison MD [address] [place], [place] [phone] Gabriella Bailey, OTTomi [address] [address] Cerebrovascular accident (CVA) due to thrombosis of [...] Description 09/19/2023 2:15 PM CDT Therapy Visit [address] [phone] Ibeth Ellison MD [address] [place] [address] [phone] Marquita Trivedi, PT 09/19/2023 3:00 PM CDT Therapy Visit [address] [phone] Ibeth Ellison MD [address] [place] [address] [phone] Gabriella Bailey, OTR [address] [address] 09/21/2023 2:15 PM CDT Therapy Visit [address] [phone] Ibeth Ellison MD [address] [place] [address] [phone] Marquita Trivedi, PT 09/21/2023 3:45 PM CDT Therapy Visit [address] [phone] Ibeth Ellison MD [address] [place] [address] [phone] Dylan Mccann OT 09/26/2023 9:45 AM CDT Therapy Visit [address] [phone] Ibeth Ellison MD [address] [place] [address] [phone] Maura Javier, PT [address] 264545 09/26/2023 11:00 AM CDT Therapy Visit [address] [phone] Ibeth Ellison MD [address] [place] [address] [phone] Gabriella Bailey, OTR [address] [address] 09/28/2023 10:30 AM CDT Therapy Visit [address] [address]-135214 Ibeth Ellison MD [address] [place] [phone] Maura Javier, PT [address] 017465 09/28/2023 11:30 AM CDT Therapy Visit [address] [phone] Ibeth Ellison MD [address] [place] [address] [phone] Dylan Mccann, OT 10/03/2023 9:30 AM CDT Therapy Visit [address] [phone] Ibeth Ellison MD [address] [place] [address] [phone] Gabriella Bailey, OTR [address] [address] 10/03/2023 10:30 AM CDT Therapy Visit [address] [phone] Ibeth Ellison MD [address] [place] [address] [phone] Marquita Trivedi, PT 10/05/2023 9:45 AM CDT Therapy Visit [address] [phone] Ibeth Ellison MD [address] [place] [address] [phone] Maura Javier Ap, PT [address] 264285 10/05/2023 10:45 AM CDT Therapy Visit [address] [phone] Ibeth Ellison MD [address] [place] [address] [phone] Dylan Mccann, OT 10/10/2023 9:30 AM CDT Therapy Visit [facility] [address] [address] Ibeth Ellison MD [address] [place] [address] [phone] Gabriella Bailey, OTR [address] [address] 10/10/2023 10:30 AM CDT Therapy Visit [address] [phone] Ibeth Ellison MD [address] [place] [address] [phone] Marquita Trivedi, PT 10/12/2023 9:45 AM CDT Therapy Visit [address] [phone] Ibeth Ellison MD [address] [place] [address] [phone] Maura Javier Ap, PT [address] 393835 10/12/2023 10:45 AM CDT Therapy Visit [address] [phone] Ibeth Ellison MD [address] [place] [address] [phone] Dylan Mccann, OT 10/17/2023 9:30 AM CDT Therapy Visit [address] [phone] Ibeth Ellison MD [address] [place] [address] [phone] Gabriella Bailey, OTR FV [address] [address] 10/17/2023 10:30 AM CDT Therapy Visit [address] [phone] Ibeth Ellison MD [address] [place] [address] [phone] Marquita Trivedi, PT 10/19/2023 10:15 AM CDT Therapy Visit [address] [phone] Ibeth Ellison MD [address] [place] [address] [phone] Annamaria Dennison [address] [address] 10/19/2023 11:15 AM CDT Therapy Visit [address] [phone] Ibeth Ellison MD [address] [place] [address] [phone] Marquita Trivedi, PT 10/24/2023 12:15 PM CDT Therapy Visit [address] [phone] Ibeth Ellison MD [address] [place] [address] [phone] Maura Javier Ap, PT [address] 948445 10/26/2023 11:30 AM CDT Therapy Visit [address] [phone] Ibeth Ellison MD [address] [place] [address] [phone] Dylan Mccann, OT 10/26/2023 12:15 PM CDT Therapy Visit [address] [phone] Ibeth Ellison MD [address] [place] [address] [phone] Maura Javier Ap, PT [address] 092415 10/31/2023 10:15 AM CDT Therapy Visit [address] [phone] Ibeth Ellison MD [address] [place] [address] [phone] Gabriella Bailey, OTR [address] [address] 10/31/2023 11:15 AM CDT Therapy Visit [address] [phone] Ibeth Ellison MD [address] [place] [address] [phone] Marquita Trivedi, PT 11/02/2023 10:00 AM CDT Therapy Visit [address] [phone] Ibeth Ellison MD [address] [place] [address] [phone] Dylan Mccann, OT 11/02/2023 11:15 AM CDT Therapy Visit [address] 66218-023414 Ibeth Ellison MD [address] [place] [address] [phone] Marquita Trivedi, PT 11/07/2023 10:30 AM CDT Therapy Visit [address] [address] Ibeth Ellison MD [address] [place] [address] [phone] Marquita Trivedi, PT 11/09/2023 10:30 AM CDT Therapy Visit [address] [phone] Ibeth Ellison MD [address] [place] [address] [phone] Marquita Trivedi, PT 11/14/2023 12:15 PM CDT Therapy Visit [address] [address] Ibeth Ellison MD [address] [place] [address] [phone] Maura Javier Ap, PT [address] 145935 11/16/2023 10:30 AM CDT Therapy Visit [address] [phone] Ibeth Ellison MD [address] [place] [address] [phone] Marquita Trivedi PT documented as of this encounter Visit Diagnoses Diagnosis Cerebrovascular accident (CVA) due to 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
--- OUTSIDE RECORDS SUMMARY | 2023-09-19 04:55 | XMS_ITS | Encounter Summary ---
Author Organization [facility] Address [address] [place] [address] Care Team Providers Care Small Business Sales Representative Name Role Phone Kyra Perera Primary Care Provider [phone] Angel Hollins MD Unavailable Petra Dorado Unavailable [phone] Angel Hollins MD Unavailable [phone] Reason for Visit * Rehab Therapy Integrated Services (Routine) - Authorized Specialty Diagnoses / Procedures Referred By Scott t Referred To Contact Diagnoses Scot DAUGHERTY PF RN sent order Procedures PT NEURO EVAL [address] [address] Referral ID Status Reason Start Date Expiration Date V isits Requested Visits Authorized [id number] Authorized 07/18/2023 03/12/2024 365 365 Encounter Details Date Type Department Care Team (Latest Contact Info) Description 07/27/2023 10:30 AM CDT Therapy Visit [address] [address] Ibeth Ellison MD [address] [place] [address] [phone] Marquita Trivedi, PT Cerebrovascular accident (CVA) due [...] Description 09/19/2023 2:15 PM CDT Therapy Visit [address] [phone] Ibeth Ellison MD [address] [place] [address] [phone] Marquita Trivedi, PT 09/19/2023 3:00 PM CDT Therapy Visit [address] [phone] Ibeth Ellison MD [address] [place] [address] [phone] Gabriella Bailey, OTR [address] [address] 09/21/2023 2:15 PM CDT Therapy Visit [address] [phone] Ibeth Ellison MD [address] [place] [address] 343145 Marquita Trivedi, PT 09/21/2023 3:45 PM CDT Therapy Visit [address] [phone] Ibeth Ellison MD [address] [place] [address] [phone] Dylan Mccann, OT 09/26/2023 9:45 AM CDT Therapy Visit M [address] [phone] Ibeth Ellison MD [address] [place] [address] Maura Javier, PT [address] [address] 09/26/2023 11:00 AM CDT Therapy Visit M [address] [phone] Ibeth Ellison MD [address] [place] [address] [phone] Gabriella Bailey, OTR [address] [address] 09/28/2023 10:30 AM CDT Therapy Visit M [address] [phone] Ibeth Ellison MD [address] [place] [address] [phone] Maura Javier, PT [address] [address] 09/28/2023 11:30 AM CDT Therapy Visit M [address] [phone] Ibeth Ellison MD [address] [place] [address] [phone] Dylan Mccann, OT 10/03/2023 9:30 AM CDT Therapy Visit [address] [phone] Ibeth Ellison MD [address] [place] [address] 30[address] Gabriella Bailey, OTR [address] [address] 10/03/2023 10:30 AM CDT Therapy Visit [address] [phone] Ibeth Ellison MD [address] [place] [address] [phone] Marquita Trivedi, PT 10/05/2023 9:45 AM CDT Therapy Visit [address] 45212-220314 Ibeth Ellison MD [address] [place] [address] [phone] Maura Javier Ap, PT [address] 538425 10/05/2023 10:45 AM CDT Therapy Visit [address] [phone] Ibeth Ellison MD [address] [place] [address] [phone] Dylan Mccann, OT 10/10/2023 9:30 AM CDT Therapy Visit [address] [phone] Ibeth Ellison MD [address] [place] [address] [phone] Gabriella Bailey, OTR FV [address] [address] 10/10/2023 10:30 AM CDT Therapy Visit [address] [phone] Ibeth Ellison MD [address] [place] [address] [phone] Marquita Trivedi, PT 10/12/2023 9:45 AM CDT Therapy Visit [address] [phone] Ibeth Ellison MD [address] [place] [address] [phone] Maura Javier Ap, PT [address] [address] 10/12/2023 10:45 AM CDT Therapy Visit [address] [phone] Ibeth Ellison MD [address] [place] [address] [phone] Dylan Mccann, OT 10/17/2023 9:30 AM CDT Therapy Visit [address] [phone] Ibeth Ellison MD [address] [place] [address] [phone] Gabriella Bailey, OTR [address] [address] 10/17/2023 10:30 AM CDT Therapy Visit [address] [address] Ibeth Ellison MD [address] [place] [address] [phone] Marquita Trivedi, PT 10/19/2023 10:15 AM CDT Therapy Visit [address] 21007-325114 Ibeth Ellison MD [address] [place] [address] 348225 Annamaria Dennison [address] [address] 10/19/2023 11:15 AM CDT Therapy Visit [address] [phone] Ibeth Ellison MD [address] [place] [address] 458645 Marquita Trivedi, PT 10/24/2023 12:15 PM CDT Therapy Visit [address] [address] Ibeth Ellison MD [address] [place] [address] [phone] Maura Javier Ap, PT [address] 477985 10/26/2023 11:30 AM CDT Therapy Visit [address] [place] [address] Ibeth Ellison MD [address] [place] [address] [phone] Dylan Mccann, OT 10/26/2023 12:15 PM CDT Therapy Visit [address] 56850-667214 Ibeth Ellison MD [address] [place] [address] 587425 Maura Javier Ap, PT [address] 518725 10/31/2023 10:15 AM CDT Therapy Visit [address] [address] Ibeth Ellison MD [address] [place] [address] 590335 Gabriella Bailey, OTR [address] [address] 10/31/2023 11:15 AM CDT Therapy Visit [address] [address] Ibeth Ellison MD [address] [place] [address] [phone] Marquiat Trivedi, PT 11/02/2023 10:00 AM CDT Therapy Visit [address] [phone] Ibeth Ellison MD [address] [place] [address] 335385 Dylan Mccann, OT 11/02/2023 11:15 AM CDT Therapy Visit [address] [phone] Ibeth Ellison MD [address] [place] [address] [phone] Marquita Trivedi, PT 11/07/2023 10:30 AM CDT Therapy Visit [address] [phone] Ibeth Ellison MD [address] [place] [address] [phone] Marquita Trivedi, PT 11/09/2023 10:30 AM CDT Therapy Visit [address] [phone] Ibeth Ellison MD [address] [place] [address] 467955 Marquita Trivedi, PT 11/14/2023 12:15 PM CDT Therapy Visit [address] [phone] Ibeth Ellison MD [address] [place] [address] [phone] Maura Javier Ap, PT [address] 160505 11/16/2023 10:30 AM CDT Therapy Visit [address] [phone] Ibeth Ellison MD [address] [place] [address] 523655 Marquita Trivedi, JESSICA documented as of this encounter Visit Diagnoses Diagnosis Cerebrovascular accident (CVA) due to thrombosis of left middle cerebral artery (H)- Primary documented in this encounter Care Teams Small Business Sales Representative Relationship Specialty Start Date End Date Kyra Perera [address] [place] [address] PCP - General Physician Cytology Teacher 03/31/22 Angel Hollins MD [address] 218405 Neurology 07/20/23 [place] [address] [place] [address] [address] [place], [place] 798844 Physician Cytology Teacher Physical Medicine and Rehabilitation 07/20/23 Angel Hollins MD [address] 548655 Assigned Neuroscience Provider 08/03/23 documented as of this encounter
--- OUTSIDE RECORDS SUMMARY | 2023-09-19 04:55 | XMS_ITS | Encounter Summary ---
Author Organization [facility] Address [address] [place] [address] 04226 Care Team Providers Care Medicine Assistant Name Role Phone Kyra Perera Arabella Primary Care Provider Angel Hollins MD Unavailable Petra Dorado Unavailable [phone] Encounter Details Date Type Department Care Team (Latest Contact Info) Description 07/20/2023 Travel Social History Tobacco Use Types Packs/Day [...] Description 09/19/2023 2:15 PM CDT Therapy Visit [address] [phone] Ibeth Ellison MD [address] [place] [address] [phone] Marquita Trivedi, JESSICA 09/19/2023 3:00 PM CDT Therapy Visit [address] [phone] Ibeth Ellison MD [address] [place] [address] [phone] Gabriella Bailey OTR [facility] [address] [place] [address] 09/21/2023 2:15 PM CDT Therapy Visit [address] [phone] Ibeth Ellison MD [address] [place] [address] [phone] Marquita Trivedi, PT 09/21/2023 3:45 PM CDT Therapy Visit [address] [phone] Ibeth Ellison MD [address] [place] [address] [phone] Dylan Mccann, OT 09/26/2023 9:45 AM CDT Therapy Visit [address] [phone] Ibeth Ellison MD [address] [place] [address] 986215 Maura Javier, PT [address] 751325 09/26/2023 11:00 AM CDT Therapy Visit [address] [phone] Ibeth Ellison MD [address] [place] [address] 408235 Gabriella Bailey OTR [facility] [address] [place] [address] 09/28/2023 10:30 AM CDT Therapy Visit [address] [phone] Ibeth Ellison MD [address] [place] [address] [phone] Maura Javier Ap, PT [address] 527585 09/28/2023 11:30 AM CDT Therapy Visit [address] [phone] Ibeth Ellison MD [address] [place] [address] 284665 Dylan Mccann, OT 10/03/2023 9:30 AM CDT Therapy Visit [address] [phone] Ibeth Ellison MD [address] [place] [address] [phone] Gabriella Bailey, OTR [address] [address] 10/03/2023 10:30 AM CDT Therapy Visit [address] [phone] Ibeth Ellison MD [address] [place] [address] [phone] Marquita Trivedi, PT 10/05/2023 9:45 AM CDT Therapy Visit [address] 51537-562314 Ibeth Ellison MD [address] [place] [address] [phone] Maura Javier Ap, PT [address] 560345 10/05/2023 10:45 AM CDT Therapy Visit [address] [phone] Ibeth Ellison MD [address] [place] [address] [phone] Dylan Mccann, OT 10/10/2023 9:30 AM CDT Therapy Visit [address] [phone] Ibeth Ellison MD [address] [place] [address] [phone] Gabriella Bailey, OTR [address] [address] 10/10/2023 10:30 AM CDT Therapy Visit [address] [phone] Ibeth Ellison MD [address] [place] [address] 531965 Marquita Trivedi, PT 10/12/2023 9:45 AM CDT Therapy Visit [address] [phone] Ibeth Ellison MD [address] [place] [address] [phone] Maura Javier Ap, PT [address] [place], [place] 083825 10/12/2023 10:45 AM CDT Therapy Visit [address] [phone] Ibeth Ellison MD [address] [place] [address] [phone] Dylan Mccann, OT 10/17/2023 9:30 AM CDT Therapy Visit [address] [phone] Ibeth Ellison MD [address] [place] [address] 462205 Gabriella Bailey, OTR [address] [address] 10/17/2023 10:30 AM CDT Therapy Visit [address] [phone] Ibeth Ellison MD [address] [place] [address] [phone] Marquita Trivedi, PT 10/19/2023 10:15 AM CDT Therapy Visit [address] [phone] Ibeth Ellison MD [address] [place] [address] [phone] Annamaria Dennison [address] [address] 10/19/2023 11:15 AM CDT Therapy Visit [address] [phone] Ibeth Ellison MD [address] [place] [address] [phone] Marquita Trivedi, PT 10/24/2023 12:15 PM CDT Therapy Visit [address] [address] Ibeth Ellison MD [address] [place] [address] [phone] Maura Javier, PT [address] 181035 10/26/2023 11:30 AM CDT Therapy Visit [address] [phone] Ibeth Ellison MD [address] [place] [address] [phone] Dylan Mccann, OT 10/26/2023 12:15 PM CDT Therapy Visit [address] [address] Ibeth Ellison MD [address] [place] [address] [phone] Maura Javier, PT [address] 517965 10/31/2023 10:15 AM CDT Therapy Visit [address] [phone] Ibeth Ellison MD [address] [place] [address] 57584 Gabriella Bailey, OTR [address] [address] 10/31/2023 11:15 AM CDT Therapy Visit [address] [phone] Ibeth Ellison MD [address] [place] [address] 09971 Marquita Trivedi, PT 11/02/2023 10:00 AM CDT Therapy Visit [address] [phone] Ibeth Ellison MD [address] [place] [address] [phone] Dylan Mccann, OT 11/02/2023 11:15 AM CDT Therapy Visit [address] [phone] Ibeth Ellison MD [address] [place] [address] 44944 Marquita Trivedi, PT 11/07/2023 10:30 AM CDT Therapy Visit [address] [phone] Ibeth Ellison MD [address] [place] [address] [phone] Marquita Trivedi, PT 11/09/2023 10:30 AM CDT Therapy Visit [address] 29267-209114 Ibeth Ellison MD [address] [place] [address] [phone] Marquita Trivedi, PT 11/14/2023 12:15 PM CDT Therapy Visit [facility] [address] [place] [phone] Ibeth Ellison MD [address] [place] [address] [phone] Maura Javier Ap, PT [address] [place], [place] 905535 11/16/2023 10:30 AM CDT Therapy Visit [address] [phone] Ibeth Ellison MD [address] [place] [address] [phone] Marquita Trivedi, PT documented as of this encounter Visit Diagnoses Not on filedocumented in this encounter Care Teams Medicine Assistant Relationship Specialty Start Date End Date Trever Kyra Bell [address] [place] [address] PCP - General Physician Head Of Housekeeping 03/31/22 Angel Hollins MD 909 [facility] [id number] [place] [address] Neurology 07/20/23 Petra Dorado PA [address] [facility] [address] [place] [address] Physician Head Of Housekeeping Physical Medicine and Rehabilitation 07/20/23 documented as of this encounter
--- OUTSIDE RECORDS SUMMARY | 2023-09-19 04:55 | XMS_ITS | Encounter Summary ---
Author Organization [place] Address [address] [place] [address] 52991 Care Team Providers Care Home Mortgage Disclosure Act Specialist Name Role Phone Trever Kyra Bell Primary Care Provider Angel Hollins MD Unavailable Petra Dorado Unavailable [phone] Encounter Details Date Type Department Care Team (Latest Contact Info) Description 08/01/2023 Travel Social History Tobacco Use Types Packs/Day [...] Description 09/19/2023 2:15 PM CDT Therapy Visit [address] [address] Ibeth Ellison MD [address] [place] [address] 13173 Marquita Trivedi PT 09/19/2023 3:00 PM CDT Therapy Visit [address] [address] Ibeth Ellison MD [address] [place] [address] [phone] Gabriella Bailey, OTR [address] [address] 09/21/2023 2:15 PM CDT Therapy Visit [address] [address] Ibeth Ellison MD [address] [place] [address] [phone] Marquita Trivedi, PT 09/21/2023 3:45 PM CDT Therapy Visit [address] [phone] Ibeth Ellison MD [address] [place] [address] [phone] Dylan Mccann, OT 09/26/2023 9:45 AM CDT Therapy Visit [address] [address] Ibeth Ellison MD [address] [place] [address] [phone] Maura Javier, PT [address] 693135 09/26/2023 11:00 AM CDT Therapy Visit [address] [phone] Ibeth Ellison MD [address] [place] [address] [phone] Gabriella Bailey, OTR [facility] [address] [place] [address] 09/28/2023 10:30 AM CDT Therapy Visit [address] [phone] Ibeth Ellison MD [address] [place] [address] [phone] Maura Javier Ap, PT [address] 634755 09/28/2023 11:30 AM CDT Therapy Visit [address] [phone] Ibeth Ellison MD [address] [place] [address] [phone] Dylan Mccann, OT 10/03/2023 9:30 AM CDT Therapy Visit [address] [phone] Ibeth Ellison MD [address] [place] [address] [phone] Gabriella Bailey, OTR FV [address] [address] 10/03/2023 10:30 AM CDT Therapy Visit [address] [phone] Ibeth Ellison MD [address] [place] [address] [phone] Marquita Trivedi, PT 10/05/2023 9:45 AM CDT Therapy Visit [address] [phone] Ibeth Ellison MD [address] [place] [address] [phone] Maura Javier Ap, PT [address] [address] 10/05/2023 10:45 AM CDT Therapy Visit [address] [phone] Ibeth Ellison MD [address] [place] [address] [phone] Dyaln Mccann, OT 10/10/2023 9:30 AM CDT Therapy Visit [address] [phone] Ibeth Ellison MD [address] [place] [address] [phone] Gabriella Bailey, OTR [address] [address] 10/10/2023 10:30 AM CDT Therapy Visit [address] [phone] Ibeth Ellison MD [address] [place] [address] [phone] Marquita Trivedi, PT 10/12/2023 9:45 AM CDT Therapy Visit [address] [phone] Ibeth Ellison MD [address] [place] [address] 55455 Maura Javier Ap, PT [address] [place], [place] 346905 10/12/2023 10:45 AM CDT Therapy Visit [address] [phone] Ibeth Ellison MD [address] [place] [address] [phone] Dylan Mccann, OT 10/17/2023 9:30 AM CDT Therapy Visit [address] [phone] Ibeth Ellison MD [address] [place] [address] [phone] Gabriella Bailey, OTR [address] [address] 10/17/2023 10:30 AM CDT Therapy Visit [address] [phone] Ibeth Ellison MD [address] [place] [address] [phone] Marquita Trivedi, PT 10/19/2023 10:15 AM CDT Therapy Visit [address] [phone] Ibeth Ellison MD [address] [place] [address] [phone] Annamaria Dennison [address] [address] 10/19/2023 11:15 AM CDT Therapy Visit [address] [phone] Ibeth Ellison MD [address] [place] [address] [phone] Marquita Trivedi, PT 10/24/2023 12:15 PM CDT Therapy Visit [address] [phone] Ibeth Ellison MD [address] [place] [address] [phone] Maura Javier, PT [address] 345355 10/26/2023 11:30 AM CDT Therapy Visit [address] 98679-[address] Ibeth Ellison MD [address] [place] [address] [phone] Dylan Mccann, OT 10/26/2023 12:15 PM CDT Therapy Visit [address] [phone] Ibeth Ellison MD [address] [place] [address] [phone] Maura Javier, PT [address] 538305 10/31/2023 10:15 AM CDT Therapy Visit [address] [address] Ibeth Ellison MD [address] [place] [address] [phone] Gabriella Bailey, OTR [address] [address] 10/31/2023 11:15 AM CDT Therapy Visit [address] [address] Ibeth Ellison MD [address] [place] [address] [phone] Marquita Trivedi, PT 11/02/2023 10:00 AM CDT Therapy Visit [address] 26857-640214 Ibeth Ellison MD [address] [place] [address] [phone] Dylan Mccann, OT 11/02/2023 11:15 AM CDT Therapy Visit [address] [address] Ibeth Ellison MD [address] [place] [address] [phone] Marquita Trivedi, PT 11/07/2023 10:30 AM CDT Therapy Visit [address] [phone] Ibeth Ellison MD [address] [place] [address] [phone] Marquita Trivedi, PT 11/09/2023 10:30 AM CDT Therapy Visit [address] [phone] Ibeht Ellison MD [address] [place] [address] [phone] Marquita Trivedi, PT 11/14/2023 12:15 PM CDT Therapy Visit [facility] [address] [place] [address] Ibeth Ellison MD [address] [place] [address] [phone] Maura Javier Ap, PT [address] [place], [place] 836795 11/16/2023 10:30 AM CDT Therapy Visit [address] [phone] Ibeth Ellison MD [address] [place] [address] [phone] Marquita Trivedi, PT documented as of this encounter Visit Diagnoses Not on filedocumented in this encounter Care Teams Home Mortgage Disclosure Act Specialist Relationship Specialty Start Date End Date Kyra Perera Arabella [address] [place] [address] PCP - General Physician Molding Machine Operator 03/31/22 Angel Hollins MD 909 [facility] [id number] [place], [place] 236575 Neurology 07/20/23 Petra Dorado, PA [address] [facility] [address] [place] [address] Physician Molding Machine Operator Physical Medicine and Rehabilitation 07/20/23 documented as of this encounter
--- OUTSIDE RECORDS SUMMARY | 2023-09-19 04:55 | XMS_ITS | Encounter Summary ---
Author Organization [place] Address [address] [place] [address] 50274 Care Team Providers Care Co Founder And Chairman Name Role Phone Kyra Perera Primary Care Provider [phone] Angel Hollins MD Unavailable Petra Dorado Unavailable [phone] Angel Hollins MD Unavailable Reason for Visit * Rehab Therapy Integrated Services (Routine) - Authorized Specialty Diagnoses / Procedures Referred By Scott muniz Referred To Contact Diagnoses Scot DAUGHERTY PF RN sent order Procedures PT NEURO EVAL [address] [address] Referral ID Status Reason Start Date Expiration Date V isits Requested Visits Authorized [id number] Authorized 07/18/2023 03/12/2024 365 365 Encounter Details Date Type Department Care Team (Late st Contact Info) Description 08/09/2023 1:30 PM CDT Therapy Visit [address] [address] Ibeth Ellison MD [address] [place], [place] [phone] Gabriella Bailey, OTTomi [address] [address] Cerebrovascular accident (CVA) due to thrombosis of [...] 09/19/2023 2:15 PM CDT Therapy Visit [address] [phone] Ibeth Ellison MD [address] [place] [address] [phone] Marquita Trivedi, PT 09/19/2023 3:00 PM CDT Therapy Visit [address] [phone] Ibeth Ellison MD [address] [place] [address] [phone] Gabriella Bailey, OTR [address] [address] 09/21/2023 2:15 PM CDT Therapy Visit [address] 51811-167614 Ibeth Ellison MD [address] [place] [address] [phone] Marquita Trivedi, PT 09/21/2023 3:45 PM CDT Therapy Visit [address] [phone] Ibeth Ellison MD [address] [place] [address] [phone] Dylan Mccann OT 09/26/2023 9:45 AM CDT Therapy Visit [address] [phone] Ibeth Ellison MD [address] [place] [address] 239385 Maura Javier, PT [address] 718305 09/26/2023 11:00 AM CDT Therapy Visit [address] [address]-5714 Ibeth Ellison MD [address] [place] [address] [phone] Gabriella Bailey, OTR [address] [address] 09/28/2023 10:30 AM CDT Therapy Visit [address] 59161-163114 Ibeth Ellison MD [address] [place] [address] 39116 Maura Javier, PT [address] 719645 09/28/2023 11:30 AM CDT Therapy Visit [address] [address]-5714 Ibeth Ellison MD [address] [place] [address] [phone] Dylan Mccann, OT 10/03/2023 9:30 AM CDT Therapy Visit [address] 34312-[address] Ibeth Ellison MD [address] [place] [address] [phone] Gabriella Bailey, OTR [address] [address] 10/03/2023 10:30 AM CDT Therapy Visit [address] [phone] Ibeth Ellison MD [address] [place] [address] [phone] Marquita Trivedi, PT 10/05/2023 9:45 AM CDT Therapy Visit [address] [phone] Ibeth Ellison MD [address] [place] [address] [phone] Maura Javier Ap, PT [address] 104685 10/05/2023 10:45 AM CDT Therapy Visit [address] [phone] Ibeth Ellison MD [address] [place] [address] [phone] Dylan Mccann, OT 10/10/2023 9:30 AM CDT Therapy Visit [facility] [address] [address] Ibeth Ellison MD [address] [place] [address] [phone] Gabriella Bailey, OTR [address] [address] 10/10/2023 10:30 AM CDT Therapy Visit [address] [phone] Ibeth Ellison MD [address] [place] [address] [phone] Marquita Trivedi, PT 10/12/2023 9:45 AM CDT Therapy Visit [address] [phone] Ibeth Ellison MD [address] [place] [address] 193795 Maura Javier Ap, PT [address] 701875 10/12/2023 10:45 AM CDT Therapy Visit [address] 48904-[address] Ibeth Ellison MD [address] [place] [address] [phone] Dylan Mccann, OT 10/17/2023 9:30 AM CDT Therapy Visit [address] [phone] Ibeth Ellison MD [address] [place] [address] [phone] Gabriella Bailey, OTR FV [address] [address] 10/17/2023 10:30 AM CDT Therapy Visit [address] [phone] Ibeth Ellison MD [address] [place] [address] [phone] Marquita Trivedi, PT 10/19/2023 10:15 AM CDT Therapy Visit [address] [phone] Ibeth Ellison MD [address] [place] [address] [phone] Annamaria Dennison [address] [address] 10/19/2023 11:15 AM CDT Therapy Visit [address] [phone] Ibeth Ellison MD [address] [place] [address] [phone] Marquita Trivedi, PT 10/24/2023 12:15 PM CDT Therapy Visit [address] [phone] Ibeth Ellison MD [address] [place] [address] 321935 Maura Javier Ap, PT [address] 066755 10/26/2023 11:30 AM CDT Therapy Visit [address] [phone] Ibeth Ellison MD [address] [place] [address] [phone] Dylan Mccann, OT 10/26/2023 12:15 PM CDT Therapy Visit [address] [phone] Ibeth Ellison MD [address] [place] [address] [phone] Maura Javier Ap, PT [address] 760105 10/31/2023 10:15 AM CDT Therapy Visit [address] [phone] Ibeth Ellison MD [address] [place] [address] [phone] Gabriella Bailey, OTR [address] [address] 10/31/2023 11:15 AM CDT Therapy Visit [address] 23954-003514 Ibeth Ellison MD [address] [place] [address] [phone] Marquita Trivedi, PT 11/02/2023 10:00 AM CDT Therapy Visit [address] [phone] Ibeth Ellison MD [address] [place] [address] 28030 Dylan Mccann, OT 11/02/2023 11:15 AM CDT Therapy Visit [address] 84697-035314 Ibeth Ellison MD [address] [place] [address] 301995 Marquita Trivedi, PT 11/07/2023 10:30 AM CDT Therapy Visit [address] [address] Ibeth Ellison MD [address] [place] [address] [phone] Marquita Trivedi, PT 11/09/2023 10:30 AM CDT Therapy Visit [address] 78447-[address] Ibeth Ellison MD [address] [place] [address] [phone] Marquita Trivedi, PT 11/14/2023 12:15 PM CDT Therapy Visit [address] [address] Ibeth Ellison MD [address] [place] [address] [phone] Maura Javier Ap, PT [address] 795675 11/16/2023 10:30 AM CDT Therapy Visit [address] [phone] Ibeth Ellison MD [address] [place] [address] [phone] Marquita Trivedi PT documented as of this encounter Visit Diagnoses Diagnosis Cerebrovascular accident (CVA) due to thrombosis of left middle cerebral artery (H)- Primary documented in this encounter Care Teams Co Founder And Chairman Relationship Specialty Start Date End Date Kyra Perera [address] [place] [address] 66708 PCP - General Physician Kindergartner 03/31/22 Angel Hollins MD [address] [place] [address] 39900 Neurology 07/20/23 Petra Dorado PA [address] [place] [address] [address] Physician Kindergartner Physical Medicine and Rehabilitation 07/20/23 Angel Hollins MD [address] [address] Assigned Neuroscience Provider 08/03/23 documented as of this encounter
--- OUTSIDE RECORDS SUMMARY | 2023-09-19 04:55 | XMS_ITS | Encounter Summary ---
Author Organization [facility] Address [address] [place] [address] 59249 Care Team Providers Care Sales And Marketing Agent Name Role Phone Kyra Perera Primary Care Provider Angel Hollins MD Unavailable Petra Dorado Unavailable [phone] Angel Hollins MD Unavailable Encounter Details Date Type Department Care Team (Latest Contact Info) Description 08/04/2023 Travel Social History Tobacco Use Types Packs/Day [...] Description 09/19/2023 2:15 PM CDT Therapy Visit [facility] [address] [address] Ibeth Ellison MD [address] [place] [address] Marquita Trivedi, JESSICA 09/19/2023 3:00 PM CDT Therapy Visit [address] [phone] Ibeth Ellison MD [address] [place] [address] [phone] Gabriella Bailey, OTR [address] [address] 09/21/2023 2:15 PM CDT Therapy Visit [address] [phone] Ibeth Ellison MD [address] [place] [address] [phone] Marquita Trivedi, PT 09/21/2023 3:45 PM CDT Therapy Visit [address] [phone] Ibeth Ellison MD [address] [place] [address] [phone] Dylan Mccann, OT 09/26/2023 9:45 AM CDT Therapy Visit [address] [address] Ibeth Ellison MD [address] [place] [address] [phone] Maura Javier, PT [address] 297055 09/26/2023 11:00 AM CDT Therapy Visit [address] [phone] Ibeth Ellison MD [address] [place] [address] 14059 Gabriella Bailey, OTR [address] [address] 09/28/2023 10:30 AM CDT Therapy Visit [address] [phone] Ibeth Ellison MD [address] [place] [address] [phone] Maura Javier, PT [address] 458675 09/28/2023 11:30 AM CDT Therapy Visit [address] [phone] Ibeth Ellison MD [address] [place] [address] [phone] Dylan Mccann, OT 10/03/2023 9:30 AM CDT Therapy Visit [address] [phone] Ibeth Ellison MD [address] [place] [address] [phone] Gabriella Bailey, OTR [address] [address] 10/03/2023 10:30 AM CDT Therapy Visit [address] [phone] Ibeth Ellison MD [address] [place] [address] [phone] Marquita Trivedi, PT 10/05/2023 9:45 AM CDT Therapy Visit [address] [phone] Ibeth Ellison MD [address] [place] [address] [phone] Maura Javier Ap, PT [address] [phone] 10/05/2023 10:45 AM CDT Therapy Visit [address] [phone] Ibeth Ellison MD [address] [place] [address] [phone] Dylan Mccann, OT 10/10/2023 9:30 AM CDT Therapy Visit [address] [phone] Ibeth Ellison MD [address] [place] [address] [phone] Gabriella Bailey, OTR [address] [address] 10/10/2023 10:30 AM CDT Therapy Visit [address] [phone] Ibeth Ellison MD [address] [place] [address] [phone] Marquita Trivedi, PT 10/12/2023 9:45 AM CDT Therapy Visit [address] [phone] Ibeth Ellison MD [address] [place] [address] 28892 Maura Javier Ap, PT [address] [place] [address] 10/12/2023 10:45 AM CDT Therapy Visit [address] [phone] Ibeth Ellison MD [address] [place] [address] [phone] Dylan Mccann, OT 10/17/2023 9:30 AM CDT Therapy Visit [address] [address] Ibeth Ellison MD [address] [place] [address] [phone] Gabriella Bailey, OTR [address] [address] 10/17/2023 10:30 AM CDT Therapy Visit [address] [address] Ibeth Ellison MD [address] [place] [address] [phone] Marquita Trivedi, PT 10/19/2023 10:15 AM CDT Therapy Visit [address] 66022-[address] Ibeth Ellison MD [address] [place] [address] 186995 Annamaria Dennison [address] [address] 10/19/2023 11:15 AM CDT Therapy Visit [address] [phone] Ibeth Ellison MD [address] [place] [address] [phone] Marquita Trivedi, PT 10/24/2023 12:15 PM CDT Therapy Visit [address] [phone] Ibeth Ellison MD [address] [place] [address] [phone] Maura Javier, PT [address] 429875 10/26/2023 11:30 AM CDT Therapy Visit [address] [phone] Ibeth Ellison MD [address] [place] [address] 57145 Dylan Mccann, OT 10/26/2023 12:15 PM CDT Therapy Visit [address] [phone] Ibeth Ellison MD [address] [place] [address] [phone] Maura Javier, PT [address] 474175 10/31/2023 10:15 AM CDT Therapy Visit [address] [address] Ibeth Ellison MD [address] [place] [address] [phone] Gabriella Bailey, OTR [address] [address] 10/31/2023 11:15 AM CDT Therapy Visit [address] [phone] Ibeth Ellison MD [address] [place] [address] [phone] Marquita Trivedi, PT 11/02/2023 10:00 AM CDT Therapy Visit [address] [address] Ibeth Ellison MD [address] [place] [address] [phone] Dylan Mccann, OT 11/02/2023 11:15 AM CDT Therapy Visit [address] [address] Ibeth Ellison MD [address] [place] [address] [phone] Marquita Trivedi, PT 11/07/2023 10:30 AM CDT Therapy Visit [address] [phone] Ibeth Ellison MD [address] [place] [address] [phone] Marquita Trivedi, PT 11/09/2023 10:30 AM CDT Therapy Visit [address] [phone] Ibeth Ellison MD [address] [place] [address] [phone] Marquita Trivedi, PT 11/14/2023 12:15 PM CDT Therapy Visit [address] [phone] Ibeth Ellison MD [address] [place] [address] [phone] Maura Javier Ap, PT [address] [place], [place] 606475 11/16/2023 10:30 AM CDT Therapy Visit [address] [phone] Ibeth Ellison MD [address] [place] [address] [phone] Marquita Trivedi, PT documented as of this encounter Visit Diagnoses Not on filedocumented in this encounter Care Teams Sales And Marketing Agent Relationship Specialty Start Date End Date Kyra Perera [address] [place] [address] 70388 PCP - General Physician Labor Mediator 03/31/22 Angel Hollins MD 909 [facility] [id number] [place], [place] [id number] Neurology 07/20/23 Petra Dorado PA 2450 [facility] 213 [place], [place] 322554 Physician Labor Mediator Physical Medicine and Rehabilitation 07/20/23 Angel Hollins MD 9 [facility] [address] Assigned Neuroscience Provider 08/03/23 documented as of this encounter
--- OUTSIDE RECORDS SUMMARY | 2023-09-19 04:55 | XMS_ITS | Encounter Summary ---
Author Organization [facility] Address [address] [place] [address] 17455 Care Team Providers Care Retail Assistant Name Role Phone Trever Kyra Bell Primary Care Provider Angel Hollins MD Unavailable Petra Dorado Unavailable [phone] Encounter Details Date Type Department Care Team (Latest Contact Info) Description 07/27/2023 Travel Social History Tobacco Use Types Packs/Day [...] Description 09/19/2023 2:15 PM CDT Therapy Visit [address] [address] Ibeth Ellison MD [address] [place] [address] 47886 Marquita Trivedi PT 09/19/2023 3:00 PM CDT Therapy Visit [address] [address] Ibeth Ellison MD [address] [place] [address] 517175 Gabriella Bailey, OTR [address] [address] 09/21/2023 2:15 PM CDT Therapy Visit [address] [address] Ibeth Ellison MD [address] [place] [address] 878005 Marquita Trivedi, PT 09/21/2023 3:45 PM CDT Therapy Visit [address] 62109-[address] Ibeth Ellison MD [address] [place] [address] [phone] Dylan Mccann, OT 09/26/2023 9:45 AM CDT Therapy Visit [address] [address] Ibeth Ellison MD [address] [place] [address] [phone] Maura Javier, PT [address] 999855 09/26/2023 11:00 AM CDT Therapy Visit [address] [phone] Ibeth Ellison MD [address] [place] [address] [phone] Gabriella Bailey, OTR [facility] [address] [place] [address] 32521 09/28/2023 10:30 AM CDT Therapy Visit [address] [phone] Ibeth Ellison MD [address] [place] [address] [phone] Maura Javier Ap, PT [address] 727985 09/28/2023 11:30 AM CDT Therapy Visit [address] [phone] Ibeth Ellison MD [address] [place] [address] [phone] Dylan Mccann, OT 10/03/2023 9:30 AM CDT Therapy Visit [address] [phone] Ibeth Ellison MD [address] [place] [address] 736405 Gabriella Bailey, OTR FV [address] [address] 10/03/2023 10:30 AM CDT Therapy Visit [address] [phone] Ibeth Ellison MD [address] [place] [address] 885125 Marquita Trivedi, PT 10/05/2023 9:45 AM CDT Therapy Visit [address] [phone] Ibeth Ellison MD [address] [place] [address] [phone] Maura Javier Ap, PT [address] [address] 10/05/2023 10:45 AM CDT Therapy Visit [address] [phone] Ibeth Ellison MD [address] [place] [address] [phone] Dylan Mccann, OT 10/10/2023 9:30 AM CDT Therapy Visit [address] [phone] Ibeth Ellison MD [address] [place] [address] [phone] Gabriella Bailey, OTR [address] [address] 10/10/2023 10:30 AM CDT Therapy Visit [address] [phone] Ibeth Ellison MD [address] [place] [address] [phone] Marquita Trivedi, PT 10/12/2023 9:45 AM CDT Therapy Visit [address] [phone] Ibeth Ellison MD [address] [place] [address] Maura Javier Ap, PT [address] [place], [place] [address] 10/12/2023 10:45 AM CDT Therapy Visit [address] [phone] Ibeth Ellison MD [address] [place] [address] 895335 Dylan Mccann, OT 10/17/2023 9:30 AM CDT Therapy Visit [address] [phone] Ibeth Ellison MD [address] [place] [address] [phone] Gabriella Bailey, OTR [address] [address] 10/17/2023 10:30 AM CDT Therapy Visit [address] [phone] Ibeth Ellison MD [address] [place] [address] 531195 Marquita Trivedi, PT 10/19/2023 10:15 AM CDT Therapy Visit [address] [phone] Ibeth Ellison MD [address] [place] [address] [phone] Annamaria Dennison [address] [address] 10/19/2023 11:15 AM CDT Therapy Visit [address] [phone] Ibeth Ellison MD [address] [place] [address] 813205 Marquita Trivedi, PT 10/24/2023 12:15 PM CDT Therapy Visit [address] [phone] Ibeth Ellison MD [address] [place] [address] [phone] Maura Javier, PT [address] 026995 10/26/2023 11:30 AM CDT Therapy Visit [address] [phone] Ibeth Ellison MD [address] [place] [address] [phone] Dylan Mccann, OT 10/26/2023 12:15 PM CDT Therapy Visit [address] [phone] Ibeth Ellison MD [address] [place] [address] 428255 Maura Javier, PT [address] 503985 10/31/2023 10:15 AM CDT Therapy Visit [address] [address] Ibeth Ellison MD [address] [place] [address] [phone] Gabriella Bailey, OTR [address] [address] 10/31/2023 11:15 AM CDT Therapy Visit [address] [address] Ibeth Ellison MD [address] [place] [address] [phone] Marquita Trivedi, PT 11/02/2023 10:00 AM CDT Therapy Visit [address] 57164-775714 Ibeth Ellison MD [address] [place] [address] [phone] Dylan Mccnan, OT 11/02/2023 11:15 AM CDT Therapy Visit [address] [address] Ibeth Ellison MD [address] [place] [address] 150555 Marquita Trivedi, PT 11/07/2023 10:30 AM CDT Therapy Visit [address] 56906-587614 Ibeth Ellison MD [address] [place] [address] 756125 Marquita Trivedi, PT 11/09/2023 10:30 AM CDT Therapy Visit [address] [phone] Ibeth Ellison MD [address] [place] [address] [phone] Marquita Trivedi, PT 11/14/2023 12:15 PM CDT Therapy Visit [facility] [address] [place] [phone] Ibeth Ellison MD [address] [place] [address] [phone] Maura Javier Ap, PT [address] [place], [place] 9[address]15 11/16/2023 10:30 AM CDT Therapy Visit [address] [phone] Ibeth Ellison MD [address] [place] [address] [phone] Marquita Trivedi, PT documented as of this encounter Visit Diagnoses Not on filedocumented in this encounter Care Teams Retail Assistant Relationship Specialty Start Date End Date Kyra Perera Arabella [address] [place] [address] PCP - General Physician Reel Repairer 03/31/22 Angel Hollins MD [address] [facility] [id number] [place], [place] 853965 Neurology 07/20/23 Petra Dorado, PA [address] [facility] [address] [place] [address] Physician Reel Repairer Physical Medicine and Rehabilitation 07/20/23 documented as of this encounter
--- OUTSIDE RECORDS SUMMARY | 2023-09-19 04:55 | XMS_ITS | Encounter Summary ---
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, unspecified hemiplegia type (H) (Primary Dx) Social History Tobacco Use [...] Description 09/19/2023 2:15 PM CDT Therapy Visit [facility] [address] [place] [address]-585414 Ibeth Ellison MD [address] [place] [address] [phone] Marquita Trivedi, PT 09/19/2023 3:00 PM CDT Therapy Visit [address] [phone] Ibeth Ellison MD [address] [place] [address] [phone] Gabriella Bailey, OTR [address] [address] 09/21/2023 2:15 PM CDT Therapy Visit [address] [phone] Ibeth Ellison MD [address] [place] [address] 261995 Marquita Trivedi, PT 09/21/2023 3:45 PM CDT Therapy Visit [address] [phone] Ibeth Elilson MD [address] [place] [address] [phone] Dylan Mccann, OT 09/26/2023 9:45 AM CDT Therapy Visit [address] [phone] Ibeth Ellison MD [address] [place] [address] [phone] Maura Javier Ap, PT [address] 829695 09/26/2023 11:00 AM CDT Therapy Visit [address] [phone] Ibeth Ellison MD [address] [place] [address] 91937 Gabriella Bailey, OTR [address] [address] 09/28/2023 10:30 AM CDT Therapy Visit [address] [phone] Ibeth Ellison MD [address] [place] [address] 246075 Maura Javier, PT [address] [address] 09/28/2023 11:30 AM CDT Therapy Visit [address] [phone] Ibeth Ellison MD [address] [place] [address] [phone] Dylan Mccann, OT 10/03/2023 9:30 AM CDT Therapy Visit [address] [phone] Ibeth Ellison MD [address] [place] [address] [phone] Gabriella Bailey, OTR FV [address] [address] 10/03/2023 10:30 AM CDT Therapy Visit [address] [phone] Ibeth Ellison MD [address] [place] [address] [phone] Marquita Trivedi, PT 10/05/2023 9:45 AM CDT Therapy Visit [address] [phone] Ibeth Ellison MD [address] [place] [address] [phone] Maura Javier Ap, PT [address] 818855 10/05/2023 10:45 AM CDT Therapy Visit [address] [phone] Ibeth Ellison MD [address] [place] [address] [phone] Dylan Mccann, OT 10/10/2023 9:30 AM CDT Therapy Visit [address] [phone] Ibeth Ellison MD [address] [place] [address] [phone] Gabriella Bailey, OTR [address] 9[address] 10/10/2023 10:30 AM CDT Therapy Visit [address] [phone] Ibeth Ellison MD [address] [place] [address] 425555 Marquita Trivedi, PT 10/12/2023 9:45 AM CDT Therapy Visit [address] [phone] Ibeth Ellison MD [address] [place] [address] 850405 Maura Javier Ap, PT [address] 294285 10/12/2023 10:45 AM CDT Therapy Visit [address] [phone] Ibeth Ellison MD [address] [place] [address] [phone] Dylan Mccann, OT 10/17/2023 9:30 AM CDT Therapy Visit [address] [phone] Ibeth Ellison MD [address] [place] [address] [phone] Gabriella Bailey, OTR [address] [address] 10/17/2023 10:30 AM CDT Therapy Visit [address] [phone] Ibeth Ellison MD [address] [place] [address] [phone] Marquita Trivedi, PT 10/19/2023 10:15 AM CDT Therapy Visit [address] [place] [address] Ibeth Ellison MD [address] [place] [address] 163085 Annamaria Dennison [address] [address] 10/19/2023 11:15 AM CDT Therapy Visit [address] 64366-706014 Iebth Ellison MD [address] [place] [address] [phone] Marquita Trivedi, PT 10/24/2023 12:15 PM CDT Therapy Visit [address] [address] Ibeth Ellison MD [address] [place] [address] [phone] Maura Javier Ap, PT [address] 878375 10/26/2023 11:30 AM CDT Therapy Visit [address] [address] Ibeth Ellison MD [address] [place] [address] [phone] Dylan Mccann, OT 10/26/2023 12:15 PM CDT Therapy Visit [address] 88065-495114 Ibeth Ellison MD [address] [place] [address] [phone] Maura Javier Ap, PT [address] [place], [place] 992865 10/31/2023 10:15 AM CDT Therapy Visit [address] [phone] Ibeth Ellison MD [address] [place] [address] 03919 Gabriella Bailey, OTR [address] [address] 10/31/2023 11:15 AM CDT Therapy Visit [address] [phone] Ibeth Ellison MD [address] [place] [address] [phone] Marquita Trivedi, PT 11/02/2023 10:00 AM CDT Therapy Visit [address] [phone] Ibeth Ellison MD [address] [place] [address] [phone] Dylan Mccann, OT 11/02/2023 11:15 AM CDT Therapy Visit [address] [phone] Ibeth Ellison MD [address] [place] [address] [phone] Marquita Trivedi, PT 11/07/2023 10:30 AM CDT Therapy Visit [address] [address] Ibeth Ellison MD [address] [place] [address] 745185 Marquita Trivedi, PT 11/09/2023 10:30 AM CDT Therapy Visit [address] [phone] Ibeth Ellison MD [address] [place] [address] 133375 Marquita Trivedi, PT 11/14/2023 12:15 PM CDT Therapy Visit [address] [address] Ibeth Ellison MD [address] [place] [address] [phone] Maura Javier Ap, PT [address] 776235 11/16/2023 10:30 AM CDT Therapy Visit [address] [phone] Ibeth Ellison MD [address] [place] [address] [phone] Marquita Trivedi, PT documented as of this encounter Visit Diagnoses Diagnosis 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
--- OUTSIDE RECORDS SUMMARY | 2023-09-19 04:55 | XMS_ITS | Encounter Summary ---
Author Organization [facility] Address [address] [place] [address] 68983 Care Team Providers Care Mandolin Repair Person Name Role Phone Kyra Perera Arabella Primary Care Provider [phone] Angel Hollins MD Unavailable [phone] Petra Dorado Unavailable [phone] Reason for Visit * Rehab Therapy Integrated Services (Routine) - Authorized Specialty Diagnoses / Procedures Referred By Contmichelle t Referred To Contact Diagnoses Scot DAUGHERTY PF RN sent order Procedures PT NEURO EVAL [address] [address] Referral ID Status Reason Start Date Expiration Date V isits Requested Visits Authorized [id number] Authorized 07/18/2023 03/12/2024 365 365 Encounter Details Date Type Department Care Team (Late st Contact Info) Description 08/01/2023 10:15 AM CDT Therapy Visit [address] [phone] Ibeth Ellison MD [address] [place] [address] [phone] Gabriella Bailey OTR [facility] [address] [place] [address] Cerebrovascular accident (CVA) due to thrombosis of [...] 09/19/2023 2:15 PM CDT Therapy Visit [address] [phone] Ibeth Ellison MD [address] [place] [address] 127005 Marquita Trivedi, PT 09/19/2023 3:00 PM CDT Therapy Visit [address] [phone] Ibeth Ellison MD [address] [place] [address] [phone] Gabriella Bailey, OTR [address] [address] 09/21/2023 2:15 PM CDT Therapy Visit [address] [phone] Ibeth Ellison MD [address] [place] [address] [phone] Marquita Trivedi, PT 09/21/2023 3:45 PM CDT Therapy Visit [address] [phone] Ibeth Ellison MD [address] [place] [address] [phone] Dylan Mccann OT 09/26/2023 9:45 AM CDT Therapy Visit [address] [address] Ibeth Ellison MD [address] [place] [address] 24838 Maura Javier, PT [address] [address] 09/26/2023 11:00 AM CDT Therapy Visit [address] 96335-124314 Ibeth Ellison MD [address] [place] [address] [phone] Gabriella Bailey, OTR [address] [address] 09/28/2023 10:30 AM CDT Therapy Visit [address] [phone] Ibeth Ellison MD [address] [place] [address] [phone] Maura Javier, PT [address] [address] 09/28/2023 11:30 AM CDT Therapy Visit [address] 71076-940314 Ibeth Ellison MD [address] [place] [address] [phone] Dylan Mccann, OT 10/03/2023 9:30 AM CDT Therapy Visit [address] [phone] Ibeth Ellison MD [address] [place] [address] [phone] Gabriella Bailey, OTR [address] [address] 10/03/2023 10:30 AM CDT Therapy Visit [address] [phone] Ibeth Ellison MD [address] [place] [address] [phone] Marquita Trivedi, PT 10/05/2023 9:45 AM CDT Therapy Visit [address] [phone] Ibeth Ellison MD [address] [place] [address] [phone] Maura Javier Ap, PT [address] 032795 10/05/2023 10:45 AM CDT Therapy Visit [address] [phone] Ibeth Ellison MD [address] [place] [address] [phone] Dylan Mccann, OT 10/10/2023 9:30 AM CDT Therapy Visit [address] [phone] Ibeth Ellison MD [address] [place] [address] 449005 Gabriella Bailey, OTR [facility] [address] [place] [address] 10/10/2023 10:30 AM CDT Therapy Visit [address] [phone] Ibeth Ellison MD [address] [place] [address] [phone] Marquita Trivedi, PT 10/12/2023 9:45 AM CDT Therapy Visit [address] [phone] Ibeth Ellison MD [address] [place] [address] [phone] Maura Javier Ap, PT [address] [phone] 10/12/2023 10:45 AM CDT Therapy Visit [address] [phone] Ibeth Ellison MD [address] [place] [address] [phone] Dylan Mccann, OT 10/17/2023 9:30 AM CDT Therapy Visit [address] [phone] Ibeth Ellison MD [address] [place] [address] 152165 Gabriella Bailey, OTR [facility] [address] [address] 10/17/2023 10:30 AM CDT Therapy Visit [address] [phone] Ibeth Ellison MD [address] [place] [address] 922205 Marquita Trivedi, PT 10/19/2023 10:15 AM CDT Therapy Visit [address] [phone] Ibeth Ellison MD [address] [place] [address] [phone] Annamaria Dennison [address] 723299 10/19/2023 11:15 AM CDT Therapy Visit [address] [phone] Ibeth Ellison MD [address] [place] [address] [phone] Marquita Trivedi, PT 10/24/2023 12:15 PM CDT Therapy Visit [address] [phone] Ibeth Ellison MD [address] [place] [address] [phone] Maura Javier Ap, PT [address] [address] 10/26/2023 11:30 AM CDT [facility] [address] [place] [address] Ibeth Ellison MD [address] [place] [address] [phone] Dylan Mccann, OT 10/26/2023 12:15 PM CDT Therapy Visit [address] [phone] Ibeth Ellison MD [address] [place] [address] 33793 Maura Javier Ap, PT [address] 193865 10/31/2023 10:15 AM CDT Therapy Visit [address] [address] Ibeth Ellison MD [address] [place] [address] [phone] Gabriella Bailey, OTR [address] [address] 10/31/2023 11:15 AM CDT Therapy Visit [address] [address] Ibeth Ellison MD [address] [place] [address] [phone] Marquita Trivedi, PT 11/02/2023 10:00 AM CDT Therapy Visit [address] [address] Ibeth Ellison MD [address] [place] [address] [phone] Dylan Mccann, OT 11/02/2023 11:15 AM CDT Therapy Visit [address] [phone] Ibeth Ellison MD [address] [place] [address] [phone] Marquita Trivedi, PT 11/07/2023 10:30 AM CDT Therapy Visit [address] [phone] Ibeth Ellison MD [address] [place] [address] [phone] Marquita Trivedi, PT 11/09/2023 10:30 AM CDT Therapy Visit [address] [phone] Ibeth Ellison MD [address] [place] [address] [phone] Marquita Trivedi, PT 11/14/2023 12:15 PM CDT Therapy Visit [address] [phone] Ibeth Ellison MD [address] [place] [address] [phone] Maura Javier Ap, PT [address] 423315 11/16/2023 10:30 AM CDT Therapy Visit [address] [phone] Ibeth Ellison MD [address] [place] [address] 95724 Marquita Trivedi, JESSICA documented as of this encounter Visit Diagnoses Diagnosis 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
--- OUTSIDE RECORDS SUMMARY | 2023-09-19 04:55 | XMS_ITS | Encounter Summary ---
Author Organization [facility] Address [address] [place] [address] Care Team Providers Care Power Equipment Mechanics Instructor Name Role Phone Kyra Perera Arabella Primary Care Provider [phone] Angel Hollins MD Unavailable Petra Dorado Unavailable [phone] Reason for Visit * Rehab Therapy Integrated Services (Routine) - Authorized Specialty Diagnoses / Procedures Referred By Contmichelle t Referred To Contact Diagnoses Scot DAUGHERTY PF RN sent order Procedures PT NEURO EVAL [address] [address] Referral ID Status Reason Start Date Expiration Date V isits Requested Visits Authorized [id number] Authorized 07/18/2023 03/12/2024 365 365 Encounter Details Date Type Department Care Team (Latest Contact Info) Description 07/27/2023 9:30 AM CDT Therapy Visit [address] [address] Ibeth Ellison MD [address] [place] [address] Lucinda Mcqueen, PAMR [address] [place] [address] Cerebrovascular accident (CVA) due to thrombosis [...] Description 09/19/2023 2:15 PM CDT Therapy Visit [address] [phone] Ibeth Ellison MD [address] [place] [address] [phone] Marquita Trivedi, PT 09/19/2023 3:00 PM CDT Therapy Visit [address] [phone] Ibeth Ellison MD [address] [place] [address] [phone] Gabriella Bailey, OTR [address] [address] 09/21/2023 2:15 PM CDT Therapy Visit [address] [phone] Ibeth Ellison MD [address] [place] [address] [phone] Marquita Trivedi, PT 09/21/2023 3:45 PM CDT Therapy Visit [address] [phone] Ibeth Ellison MD [address] [place] [address] Dylan Mccann, OT 09/26/2023 9:45 AM CDT Therapy Visit [address] [address] Ibeth Ellison MD [address] [place] [address] [phone] Maura Javier, PT [address] [id number] 09/26/2023 11:00 AM CDT Therapy Visit [address] [phone] Ibeth Ellison MD [address] [place] [address] [phone] Gabriella Bailey, OTR [address] [address] 09/28/2023 10:30 AM CDT Therapy Visit [address] [phone] Ibeth Ellison MD [address] [place] [address] [phone] Maura Javier, PT [address] 539265 09/28/2023 11:30 AM CDT Therapy Visit [address] [phone] Ibeth Ellison MD [address] [place] [address] [phone] Dylan Mccann, OT 10/03/2023 9:30 AM CDT Therapy Visit [address] [phone] Ibeth Ellison MD [address] [place] [address] [phone] Gabriella Bailey, OTR [address] [address] 10/03/2023 10:30 AM CDT Therapy Visit [address] [phone] Ibeth Ellison MD [address] [place] [address] [phone] Marquita Trivedi, PT 10/05/2023 9:45 AM CDT Therapy Visit [address] [phone] Ibeth Ellison MD [address] [place] [address] [phone] Maura Javier Ap, PT [address] 963785 10/05/2023 10:45 AM CDT Therapy Visit [address] [phone] Ibeth Ellison MD [address] [place] [address] [phone] Dylan Mccann, OT 10/10/2023 9:30 AM CDT Therapy Visit [address] [phone] Ibeth Ellison MD [address] [place] [address] [phone] Gabriella Bailey, OTR [address] [address] 10/10/2023 10:30 AM CDT Therapy Visit [address] [phone] Ibeth Ellison MD [address] [place] [address] [phone] Marquita Trivedi, PT 10/12/2023 9:45 AM CDT Therapy Visit [address] [phone] Ibeth Ellison MD [address] [place] [address] [phone] Maura Javier Ap, PT [address] [address] 10/12/2023 10:45 AM CDT Therapy Visit [address] [phone] Ibeth Ellison MD [address] [place] [address] [phone] Dylan Mccann, OT 10/17/2023 9:30 AM CDT Therapy Visit [address] [phone] Ibeth Ellison MD [address] [place] [address] [phone] Gabriella Bailey, OTR [facility] [address] [place] [address] 10/17/2023 10:30 AM CDT Therapy Visit [address] [phone] Ibeth Ellison MD [address] [place] [address] [phone] Marquita Triveid, PT 10/19/2023 10:15 AM CDT Therapy Visit [address] [phone] Ibeth Ellison MD [address] [place] [address] [phone] Annamaria Dennison [address] [address] 10/19/2023 11:15 AM CDT Therapy Visit [address] [phone] Ibeth Ellison MD [address] [place] [address] [phone] Marquita Trivedi, PT 10/24/2023 12:15 PM CDT Therapy Visit [address] [phone] Ibeth Ellison MD [address] [place] [address] [phone] Maura Javier Ap, PT [address] [id number] 10/26/2023 11:30 AM CDT Therapy Visit [address] [phone] Ibeth Ellison MD [address] [place] [address] [phone] Dylan Mccann, OT 10/26/2023 12:15 PM CDT Therapy Visit [address] [phone] Ibeth Ellison MD [address] [place] [address] [phone] Maura Javier Ap, PT [address] 465565 10/31/2023 10:15 AM CDT Therapy Visit [address] [phone] Ibeth Ellison MD [address] [place] [address] [phone] Gabriella Bailey, OTR [address] [address] 10/31/2023 11:15 AM CDT Therapy Visit [address] [phone] Ibeth Ellison MD [address] [place] [address] [phone] Marquita Trivedi, PT 11/02/2023 10:00 AM CDT Therapy Visit [address] [phone] Ibeth Ellison MD [address] [place] [address] Dylan Mccann, OT 11/02/2023 11:15 AM CDT Therapy Visit [address] [phone] Ibeth Ellison MD [address] [place] [address] [phone] Marquita Trivedi, PT 11/07/2023 10:30 AM CDT Therapy Visit [address] [phone] Ibeth Ellison MD [address] [place] [address] [phone] Marquita Trivedi, PT 11/09/2023 10:30 AM CDT Therapy Visit [address] [phone] Ibeth Ellison MD [address] [place] [address] [phone] Marquita Trivedi, PT 11/14/2023 12:15 PM CDT Therapy Visit [address] [phone] Ibeth Ellison MD [address] [place] [address] Maura Javier Ap, PT [address] 589945 11/16/2023 10:30 AM CDT Therapy Visit [address] [phone] Ibeth Ellison MD [address] [place] [address] Marquita Trivedi, PT documented as of this encounter Visit Diagnoses Diagnosis Cerebrovascular accident (CVA) due to thrombosis of left middle cerebral artery (H)- Primary Activity of daily living alteration Debility, unspecified documented in this encounter Care Teams Power Equipment Mechanics Instructor Relationship Specialty Start Date End Date Kyra Perera [address] [place] [address] PCP - General Physician Para Machine Operator 03/31/22 Angel Hollins MD [address] [id number] [place] [address] Neurology 07/20/23 Petra Dorado PA [address] [place] [address] [address] [place] [address] Physician Para Machine Operator Physical Medicine and Rehabilitation 07/20/23 documented as of this encounter
--- OUTSIDE RECORDS SUMMARY | 2023-09-19 04:55 | XMS_ITS | Encounter Summary ---
Author Organization [facility] Address [address] [place] [address] Care Team Providers Care Card Painter Name Role Phone Kyra Perera Arabella Primary Care Provider [phone] Angel Hollins MD Unavailable Petra Dorado Unavailable [phone] Reason for Visit * Rehab Therapy Integrated Services (Routine) - Authorized Specialty Diagnoses / Procedures Referred By Contmichelle t Referred To Contact Diagnoses Scot DAUGHERTY PF RN sent order Procedures PT NEURO EVAL [address] [address] Referral ID Status Reason Start Date Expiration Date V isits Requested Visits Authorized [id number] Authorized 07/18/2023 03/12/2024 365 365 Encounter Details Date Type Department Care Team (Latest Contact Info) Description 07/20/2023 1:45 PM CDT Therapy Visit [address] [phone] Ibeth Morgan MD [address] [place] [address] [phone] Thuy Morrison SLP [facility] [address] [place] [address] Other speech disturbance (Primary Dx); Dysarthria due [...] Progress Notes * Thuy Morrison, JB - 07/20/2023 1:45 PM CDT SPEECH LANGUAGE PATHOLOGY EVALUATION See electronic medical record for Abuse and Falls Screening details. Subjective Presenting condition or subjective complaint: Miya Restrepo is a 73 year old right hand dominant woman with past medical history of SHERRIE, HTN, HLD, CAD, anxiety, recurrent chest pain, multiple medication intolerances, and frequent PVCs who presented to hospital on 06/30/23 with acute right sided weakness and changes in speech she was found to have acute left periventricular/putamen ischemic stroke, on presentation have hypertensive urgency, untreated HLD, stroke felt secondary to small vessel ischemic disease. Course complicated by medication intolerances reported poor response to multiple medications for secondary prevention. Admitted to acute on rehab 07/06/23 and discharged on home on 07/18/23. She is here today for a speech-language pathology evaluation to further assess her speech production and intelligibility. Pt reports her speech is not as clear as it was prior to stroke but has improved. Date of onset: 06/30/23 Prior diagnostic imaging/testing results: See EPIC Prior therapy history for the same diagnosis, illness or injury: No Living Environment Social support: family Employment: retired Hobbies/Interests: Patient goals for therapy: She would like to continue to address her speech intelligibility to be better understood at home and in the community. Pain assessment: Pain denied Objective ORAL MOTOR FUNCTION: generally intact Secretion management: WFL Mucosal quality: good Oral labial function: impaired sensation on right, improved since discharge from hospital Lingual function: WFL Buccal function: low tone, improved since d/c MOTOR SPEECH: Speech Intelligibility: Word level speech intelligibility: 100% intelligible Phrase/sentence level speech intelligibility: 100% intelligible Conversation level speech intelligibility: 100% intelligible, slight reduction with intelligibilitywith extended speaking tasks. Respiration Observations: short breath phrases Phonation: clear, patient reports quality is slightly softer than baseline Maximum phonation time (seconds): 7 Rate/prosody: WNL Articulation: imprecise articulation, with extended speaking Repetition Skills: sounds intact sentences: intact Speech Fluency: WNL Dysarthria differential diagnosis: minimal dysarthric speech U[facility]N dysarthria Motor speech level of impairment: minimal impairment Assessment & Plan CLINICAL IMPRESSIONS Medical Diagnosis: Dysarthria , CVA Treatment Diagnosis: dysarthria Impression/Assessment: Patient presents with minimal dysarthric speech primarily with extended speaking and multi-syllabic words. She will benefit from skilled outpatient speech-language pathology services to provide training and education of speech production/intelligibility strategies, exercises and home program development. PLAN OF CARE Treatment Interventions: Speech Prognosis to achieve stated therapy goals is good Rehab potential is impacted by: current level of function, family/caregiver support, patient motivation Long-Term Goals: FRONTEND ENGINEER Goal 1 Goal Identifier: Goal 1: Intelligibility/strategies Goal Description: Patient will implement trained speech production strategies to improve clarity and intelligibility of speech during structured and unstructured speech tasks with less than 4 times requiring repetition for intelligibility during therapy session. Target Date: 09/18/23 Frequency of Treatment: 1x/week Duration of Treatment: 4 sessions in 60 day period Recommended Referrals to Other Professionals: Occupational Therapy, Physical Therapy Education Assessment: Learner/Method: Patient;Family;No Barriers to Learning (daughter-Fatemeh) Education Comments: Goals, speech therapy recommendations and stroke support group resources Risks and benefits of evaluation/treatment have been explained. Patient/Family/caregiver agrees with Plan of Care. Evaluation Time: Sound production (artic, phonology, apraxia, dysarthria) Minutes (93615): 40 Signing Clinician: Thuy Morrison, FRONTEND ENGINEER [facility] OUTPATIENT SPEECH LANGUAGE PATHOLOGY PLAN OF TREATMENT FOR OUTPATIENT REHABILITATION Patient's Last Name, First Name, Miya Stephenson Date of : 1950 Provider's Name [facility] Onset Date: 06/30/23 Start of Care Date: 07/20/23 Medical Diagnosis: Dysarthria , CVA FRONTEND ENGINEER Treatment Diagnosis: dysarthria Plan of Treatment Frequency/Duration: 1x/week / 4 sessions in 60 day period Certification date from 07/20/23 To 09/18/23 See note for plan of treatment details and functional goals Thuy Morrison, FRONTEND ENGINEER I CERTIFY THE NEED FOR THESE SERVICES FURNISHED UNDER THIS PLAN OF TREATMENT AND WHILE UNDER MY CARE (Physician attestation of this document indicates review and certification of the therapy plan). Referring Provider: Ibeth Morgan Initial Assessment See Epic Evaluation- 07/20/23 Associated attestation - Ibeth Morgan MD - 07/20/2023 6:39 PM CDT Physician Attestation I agree with the information in this note. IBETH MORGAN MD documented in this encounter Plan of Treatment Upcoming Encounters Date Type Department Care Team (Late st Contact Info) Description 09/19/2023 2:15 PM CDT Therapy Visit [address] [phone] Ibeth Morgan MD [address] [place] [address] [phone] Marquita Trivedi, PT 09/19/2023 3:00 PM CDT Therapy Visit [address] [phone] Ibeth Morgan MD [address] [place] [address] [phone] Gabriella Bailey, OTR [address] [address] 09/21/2023 2:15 PM CDT Therapy Visit [address] [phone] Ibeth Morgan MD [address] [place] [address] [phone] Marquita Trivedi, PT 09/21/2023 3:45 PM CDT Therapy Visit [address] [phone] Ibeth Morgan MD [address] [place] [address] [phone] Dylan Mccann, OT 09/26/2023 9:45 AM CDT Therapy Visit [address] [phone] Ibeth Morgan MD [address] [place] [address] [phone] Maura Javier, PT [address] [place], [place] 8[address]85 09/26/2023 11:00 AM CDT Therapy Visit [address] [phone] Ibeth Morgan MD [address] [place] [address] [phone] Gabriella Bailey, OTR [address] [address] 09/28/2023 10:30 AM CDT Therapy Visit [address] [phone] Ibeth Morgan MD [address] [place] [address] [phone] Maura Javier, PT [address] [place], [place] 295165 09/28/2023 11:30 AM CDT Therapy Visit [address] [phone] Ibeth Morgan MD [address] [place] [address] [phone] Dylan Mccann, OT 10/03/2023 9:30 AM CDT Therapy Visit [address] [phone] Ibeth Morgan MD [address] [place] [address] [phone] Gabriella Bailey, OTR [address] [address] 10/03/2023 10:30 AM CDT Therapy Visit [address] [phone] Ibeth Morgan MD [address] [place] [address] [phone] Marquita Trivedi, PT 10/05/2023 9:45 AM CDT Therapy Visit [address] [phone] Ibeth Morgan MD [address] [place] [address] [phone] Maura Javier Ap, PT [address] 516745 10/05/2023 10:45 AM CDT Therapy Visit [address] [phone] Ibeth Morgan MD [address] [place] [address] [phone] Dylan Mccann, OT 10/10/2023 9:30 AM CDT Therapy Visit [address] [phone] Ibeth Morgan MD [address] [place] [address] [phone] Gabriella Bailey, OTR [address] [address] 10/10/2023 10:30 AM CDT Therapy Visit [address] [phone] Ibeth Morgan MD [address] [place] [address] [phone] Marquita Trivedi, PT 10/12/2023 9:45 AM CDT Therapy Visit [address] [phone] Ibeth Morgan MD [address] [place] [address] [phone] Maura Javier Ap, PT [address] 386775 10/12/2023 10:45 AM CDT Therapy Visit [address] [phone] Ibeth Morgan MD [address] [place] [address] [phone] Dylan Mccann, OT 10/17/2023 9:30 AM CDT Therapy Visit [address] [place] [address] Ibeth Morgan MD [address] [place] [address] [phone] Gabriella Bailey, OTR [facility] [address] [place] [address] 10/17/2023 10:30 AM CDT Therapy Visit [address] [phone] Ibeth Morgan MD [address] [place] [address] [phone] Marquita Trivedi, PT 10/19/2023 10:15 AM CDT Therapy Visit [address] [phone] Ibeth Morgan MD [address] [place] [address] Annamaria Dennison [address] [address] 10/19/2023 11:15 AM CDT Therapy Visit [address] [phone] Ibeth Morgan MD [address] [place] [address] 20[address] Marquita Trivedi, PT 10/24/2023 12:15 PM CDT Therapy Visit [address] [phone] Ibeth Morgan MD [address] [place] [address] [phone] Maura Javier, PT [address] 355965 10/26/2023 11:30 AM CDT Therapy Visit [address] [phone] Ibeth Morgan MD [address] [place] [address] [phone] Dylan Mccann, OT 10/26/2023 12:15 PM CDT Therapy Visit [address] [phone] Ibeth Morgan MD [address] [place] [address] [phone] Maura Javier, PT [address] [address] 10/31/2023 10:15 AM CDT Therapy Visit [address] [phone] Ibeth Morgan MD [address] [place] [address] [phone] Gabriella Bailey, OTR [address] [address] 10/31/2023 11:15 AM CDT Therapy Visit [address] [phone] Ibeth Morgan MD [address] [place] [address] [phone] Marquita Trivedi, PT 11/02/2023 10:00 AM CDT Therapy Visit [address] [address] Ibeth Morgan MD [address] [place] [address] 599[address] Dylan Mccann, OT 11/02/2023 11:15 AM CDT Therapy Visit [address] [phone] Ibeth Morgan MD [address] [place] [address] [phone] Marquita Trivedi, PT 11/07/2023 10:30 AM CDT Therapy Visit [address] [phone] Ibeth Morgan MD [address] [place] [address] [phone] Marquita Trivedi, PT 11/09/2023 10:30 AM CDT Therapy Visit [address] [phone] Ibeth Morgan MD [address] [place] [address] [phone] Marquita Trivedi, PT 11/14/2023 12:15 PM CDT Therapy Visit [address] [phone] Ibeth Morgan MD [address] [place] [address] [phone] Maura Javier Ap, PT [address] 645595 11/16/2023 10:30 AM CDT Therapy Visit [facility] [address] [place] [phone] Ibeth Morgan MD [address] [place] [address] [phone] Marquita Trivedi, PT documented as of this encounter Visit Diagnoses Diagnosis Other speech disturbance- Primary Dysarthria due to acute stroke (H) Cerebrovascular accident (CVA) due to thrombosis of left middle cerebral artery (H) documented in this encounter Care Teams Card Painter Relationship Specialty Start Date End Date Kyra Perera [address] [place] [address] PCP - General Physician Product Development Carpenter 03/31/22 Angel Hollins MD [address] [place] [address] [id number] [address] Neurology 07/20/23 Petra Dorado PA [address] [place] [address] Physician Product Development Carpenter Physical Medicine and Rehabilitation 07/20/23 documented as of this encounter
--- OUTSIDE RECORDS SUMMARY | 2023-09-19 04:55 | XMS_ITS | Encounter Summary ---
Author Organization [place] Address Formerly [facility] [place] [address] Care Team Providers Care .Net Programmer Name Role Phone Kyra Perera Primary Care Provider [phone] Angel Hollins MD Unavailable Petra Dorado Unavailable [phone] Reason for Visit * Reason Comments Follow Up * Consultation (Routine: Next available opening) - Pending Review Specialty Diagnoses / Procedures Referred By Scott muniz Referred To Contact Diagnoses Cerebrovascular accident (CVA) due to thrombosis of left middle cerebral artery (H) Petra Dorado PA [address] [facility] [address] [place] [address] Referral ID Status Reason Start Date Expiration Date V isits Requested Visits Authorized [id number] Pending Review 07/19/2023 07/18/2024 1 1 Encounter Details Date Type Department Care Team (Late st Contact Info) Description 07/25/2023 10:00 AM CDT Virtual Visit [facility] [address] [place] [address] Petra Dorado PA [address] [facility] [address] [place] [address] Angel Hollins MD [address] [place], [place] [address] [place] [address] 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) (Primary Dx); Hemiparesis affecting dominant side as late effect of cerebrovascular accident (CVA) (H); Hypertension, unspecified type; Mixed hyperlipidemia Social History Tobacco Use Types Packs/Day Years [...] this encounter Patient Instructions * Patient Instructions* Yamile Nassar RN - 07/25/2023 10:00 AM CDT Will follow up with [facility] No further follow up with [facility] RN Care Coordinators: Yamile Nassar RN, BSN Rosemarie Wynn RN, CNRN, SCRN If you have any questions please contact the RN Care Coordinators at [phone], option [phone]. Thank you for choosing [facility] for your health care needs. documented in this encounter Progress Notes * Angel Hollins MD - 07/25/2023 10:00 AM CDT Virtual Visit Details Type of service: Video Visit Video Start Time: 10:07 Video End Time:10:54 Originating Location (pt. Location): Home Distant Location (provider location): Off-site Platform used for Video Visit: [facility] * Angel Hollins MD - 07/25/2023 10:00 AM CDT Images from the original note were not included. [facility] [address] [facility] [id number] July 25, 2023 Miya Restrepo [address] [facility] [id number] TOTAL 77 Minutes Video visit: 10:07-10:54 = 47 minutes Documentation = 30 minutes Ms. Restrepo is a 73 year old lady who was hospitalized ~06/30/23 with R sided weakness (paralysis per patient) and speech difficulty. She is seen today with her daughter Suki who is very helpful duringthe visit and is supporting her mother. The patient presented to a local [facility] outside the thrombolytic window. Hospital work up included brain MRI which showed an acute infarct involving Lperiventricular white matter and tail of the putamen. Neck CTA showed < 50% stenosis of bilateral ICA. There was no intracranial CTA. Zio for 7 days did not show AF. The patient is gaining mobility of the R side though R hand is still not functional and R arm is floppy. She walks with a cane or w alker. Her speech is muh improved though she notes residual slurring. 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 Vascular risk factors: She had HTN - pre-stroke her BP would run 200/100 - she was very sensitive to all BP medications and could not tolerate most of them. Since the stroke she has been started on Telmisartan - her recent BP have ranged in the 160's - 180's systolic. She has hyperlipidemia and is unable to tolerate statins. She mentioned that Repatha is under consideration. No tobacco use and noDM. No prior h/o stroke and no significant family h/o stroke. Father of heart disease and liver disease. She has completed 21 days of dual antiplatelets and is now only on aspirin 81 mg daily. Patient worked in [employer] for 40 years. ASSESSMENT / PLAN Encounter Diagnoses Name Primary? 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) Yes ??? Hemiparesis affecting dominant side as late effect of cerebrovascular accident (CVA) (H) ??? Hypertension, unspecified type ??? Mixed hyperlipidemia Ms. Restrepo has had a stroke involving the lenticulostriate territory. Likely mechanism is small vessel disease involving the LSA of the MCA. Risk factors include significant HTN and HLD. Goal SBP < 140 mm Hg and preferably < 130 mm Hg if tolerated. Goal LDL < 70 mg /dl - she has some plaque in the bilateral ICA. Continue aspirin 81 mg. In addition to the acute infarct involving the periventricular WM and posterior putamen, there is significant WMH in the periventricular area. This wasreviewed with the patient and Suki and explained that small chronic strokes may be part of the WMH. Patient wants to consolidate her care at [facility] and would prefer to follow there for Neurology. I referred her to Dr. Chloe Henry and Dr. Mo. I recommend an intracranial CTA and they will discuss this further at [facility] in follow up. No further follow up with me - they will follow with Neurology at [facility] and Dr. Nunez in Cardiology at [facility] and their PCP for risk factor management. Brain MRI 06/30/23 Acute infarct L centrum semiovale and posterior putamen Neck CTA < 50% stenosis both ICA; calcified and non-calcified plaque at ICA origin intracranial CTA not done Zio 7 days. No AFIB. Symptomatic SVT. Has follow up with Dr. Nunez in [facility] (Cardiology). TTE Final Impressions: ??1. Normal left ventricular size, moderately increased wall thickness, normal global systolic function, calculated EF of 62 %. ??2. Right ventricular cavity size is normal, global systolic RV function is normal. ??3. The aortic valve is trileaflet and sclerotic, no stenosis and mild regurgitation. ??4. The mitral valve??is normal, mild mitral regurgitation. EXAM Orientation: Normal; Language normal; Attention: DLROW; normal 5/5 Mild slurring of speech Cranial nerves: EOMI face symmetric; has R face numbness near cheek tongue ML Motor: FFM normal L; unable R; No drift L ; R drifts down and hits table by 10 seconds; Strength normal in both L UE as tested by Suki; R SA < 3; EE 3; EF 3+ to 4; WE 2 FE 2 Sensory: no deficits to LT in arms or legs currently Co-ordination normal in L UE - unable on R due to weakness Gait: walks slowly with 4 pronged cane Angel Hollins MD documented in this encounter Nursing Notes * Anna Stephenson - 07/25/2023 10:00 AM CDT Is the patient currently in the state of [place]? YES Visit mode:VIDEO If the visit is dropped, the patient can be reconnected by: VIDEO VISIT: Text to cell phone: Telephone Information: Will anyone else be joining the visit? NO (If patient encounters technical issues they should call [phone]) How would you like to obtain your AVS? MyChart Are changes needed to the allergy or medication list? No Are refills needed on medications prescribed by this physician? NO Reason for visit: Follow Up Anna Stephenson VVF documented in this encounter Plan of Treatment Upcoming Encounters Date Type Department Care Team (Late st Contact Info) Description 09/19/2023 2:15 PM CDT Therapy Visit [address] [phone] Ibeth Ellison MD [address] [place] [address] [id number] Marquita Trivedi, JESSICA 09/19/2023 3:00 PM CDT Therapy Visit [address] [phone] Ibeth Ellison MD [address] [place] [address] [id number] Gabriella Bailey, OTR [address] [address] 09/21/2023 2:15 PM CDT Therapy Visit [address] [phone] Ibeth Ellison MD [address] [place] [address] [id number] Marquita Trivedi, PT 09/21/2023 3:45 PM CDT Therapy Visit [address] [phone] Ibeth Ellison MD [address] [place] [address] [id number] Dylan Mccann, OT 09/26/2023 9:45 AM CDT Therapy Visit [address] [phone] Ibeth Ellison MD [address] [place] [address] [id number] Maura Javier, PT [address] [id number] 09/26/2023 11:00 AM CDT Therapy Visit [address] [phone] Ibeth Ellison MD [address] [place] [address] [phone] Gabreilla Bailey, OTR [address] [address] 09/28/2023 10:30 AM CDT Therapy Visit [address] [phone] Ibeth Ellison MD [address] [place] [address] [id number] Maura Javier, PT [address] [id number] 09/28/2023 11:30 AM CDT Therapy Visit [address] [phone] Ibeth Ellison MD [address] [place] [address] [phone] Dylan Mccann, OT 10/03/2023 9:30 AM CDT Therapy Visit [address] [phone] Ibeth Ellison MD [address] [place] [address] [phone] Gabriella Bailey, OTR [address] [address] 10/03/2023 10:30 AM CDT Therapy Visit [address] [phone] Ibeth Ellison MD [address] [place] [address] [phone] Marquita Trivedi, PT 10/05/2023 9:45 AM CDT Therapy Visit [address] [phone] Ibeth Ellison MD [address] [place] [address] [id number] Maura aJvier Ap, PT [address] [id number] 10/05/2023 10:45 AM CDT Therapy Visit [address] [phone] Ibeth Ellison MD [address] [place] [address] [id number] Dylan Mccann, OT 10/10/2023 9:30 AM CDT Therapy Visit [address] [phone] Ibeth Ellison MD [address] [place] [address] [phone] Gabriella Bailey, OTR [address] [address] 10/10/2023 10:30 AM CDT Therapy Visit [address] [phone] Ibeth Ellison MD [address] [place] [address] [phone] Marquita Trivedi, PT 10/12/2023 9:45 AM CDT Therapy Visit [address] [phone] Ibeth Ellison MD [address] [place] [address] [id number] Maura Javier Ap, PT [address] [id number] 10/12/2023 10:45 AM CDT Therapy Visit [address] [phone] Ibeth Ellison MD [address] [place] [address] [phone] Dylan Mccann, OT 10/17/2023 9:30 AM CDT Therapy Visit [facility] [place] [phone] Ibeth Ellison MD [address] [place] [phone] Gabriella Bailey, OTR [address] [address] 10/17/2023 10:30 AM CDT Therapy Visit [address] [phone] Ibeth Ellison MD [address] [place] [address] [phone] Marquita Trivedi, PT 10/19/2023 10:15 AM CDT Therapy Visit [address] [phone] Ibeth Ellison MD [address] [place] [address] Annamaria Dennison [address] [address] 10/19/2023 11:15 AM CDT Therapy Visit [address] [phone] Ibeth Ellison MD [address] [place] [address] [phone] Marquita Trivedi, PT 10/24/2023 12:15 PM CDT Therapy Visit [address] [phone] Ibeth Ellison MD [address] [place] [address] [phone] Maura Javier, PT [address] [address] 10/26/2023 11:30 AM CDT Therapy Visit [address] [phone] Ibeth Ellison MD [address] [place] [address] [phone] Dylan Mccann, OT 10/26/2023 12:15 PM CDT Therapy Visit [address] [phone] Ibeth Ellison MD [address] [place] [address] [phone] Maura Javier, PT [address] [address] 10/31/2023 10:15 AM CDT Therapy Visit [address] [phone] Ibeth Ellison MD [address] [place] [address] [phone] Gabriella Bailey, OTR [address] [address] 10/31/2023 11:15 AM CDT Therapy Visit [address] [phone] Ibeth Ellison MD [address] [place] [address] [phone] Marquita Trivedi, PT 11/02/2023 10:00 AM CDT Therapy Visit [address] [phone] Ibeth Ellison MD [address] [place] [address] [phone] Dylan Mccann, OT 11/02/2023 11:15 AM CDT Therapy Visit [address] [phone] Ibeth Ellison MD [address] [place] [address] [phone] Marquita Trivedi, PT 11/07/2023 10:30 AM CDT Therapy Visit [address] [phone] Ibeth Ellison MD [address] [place] [address] [phone] Marquita Trivedi, PT 11/09/2023 10:30 AM CDT Therapy Visit [address] [phone] Ibeth Ellison MD [address] [place] [address] [phone] Marquita Trivedi, PT 11/14/2023 12:15 PM CDT Therapy Visit [address] [phone] Ibeth Ellison MD [address] [place] [address] [phone] Maura Javier Ap, PT [address] [id number] 11/16/2023 10:30 AM CDT Therapy Visit [facility] [address] [place] [phone] Ibeth Ellison MD [address] [place] [phone] Marquita Trivedi, PT documented as of this encounter Visit Diagnoses Diagnosis 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)- Primary Hemiparesis affecting dominant side as late effect of cerebrovascular accident (CVA) (H) Hypertension, unspecified type Mixed hyperlipidemia documented in this encounter Care Teams .Net Programmer Relationship Specialty Start Date End Date Krya Perera [address] [place] [address] PCP - General Physician Drycleaner 03/31/22 Angel Hollins MD [address] [facility] [address] Neurology 07/20/23 Petra Dorado PA [address] [facility] [address] [place] [address] Physician Drycleaner Physical Medicine and Rehabilitation 07/20/23 documented as of this encounter
--- OUTSIDE RECORDS SUMMARY | 2023-09-19 04:56 | XMS_ITS ---
Author Organization [place] Address [address] [place] [address] Care Team Providers Care Software Developer Manager Name Role Phone Kyra Perera Primary Care Provider [phone] Angel Hollins MD Unavailable Petra Dorado Unavailable [phone] Angel Hollins MD Unavailable Transitional Care Management Status:Closed (Closed) Start date:07/20/2023 Enrollment date:07/21/2023 End date:08/03/2023 Close reason:Goals met Continued Care and Services Coordination
--- OUTSIDE RECORDS SUMMARY | 2023-09-19 04:56 | XMS_ITS | Encounter Summary ---
Author Organization [facility] Address [address] [place] [address] Care Team Providers Care Facility Supervisor Name Role Phone Kyra Perera Arabella Primary Care Provider [phone] Angel Hollins MD Unavailable Petra Dorado Unavailable [phone] Reason for Visit * Rehab Therapy Integrated Services (Routine) - Authorized Specialty Diagnoses / Procedures Referred By Contmichelle t Referred To Contact Diagnoses Scot DAUGHERTY PF RN sent order Procedures PT NEURO EVAL [address] [address] Referral ID Status Reason Start Date Expiration Date V isits Requested Visits Authorized [id number] Authorized 07/18/2023 03/12/2024 365 365 Encounter Details Date Type Department Care Team (Latest Contact Info) Description 07/20/2023 12:30 PM CDT Therapy Visit [address] [address] Ibeth Ellison MD [address] [place] [address] Lucinda Mcqueen, PAMR [address] [place] [address] Cerebrovascular accident (CVA) due to [...] as of this encounter Progress Notes * Lucinda Mcqueen OTR - 07/20/2023 12:30 PM CDT OCCUPATIONAL THERAPY EVALUATION Type of Visit: Evaluation See electronic medical record for Abuse and Falls Screening details. Subjective Presenting condition or subjective complaint: R sided deficits s/p CVA Date of onset: 06/30/23 Relevant medical history: Past Medical History: Diagnosis Date Anxiety CAD (coronary artery disease) HLD (hyperlipidemia) HTN (hypertension) SHERRIE (obstructive sleep apnea) Dates & types of surgery: Prior diagnostic imaging/testing results: Prior therapy history for the same diagnosis, illness or injury: Yes discharged from ARU 07/18/23 Prior Level of Function Transfers: Independent Ambulation: Independent ADL: Independent IADL: Driving, Finances, Laundry, Meal preparation, Work Living Environment Social support: With family members Type of home: House; Multi-level Stairs to enter the home: Yes 4 Is there a railing: No Ramp: Stairs inside the home: Yes 18 Is there a railing: Yes Help at home: Self Cares (home health aide/tool storage attendant, family, etc); Home and Yard maintenance tasks; Home management tasks (cooking, cleaning); Assist for driving and community activities; Emergency call system Equipment owned: Four-point cane; Walker with wheels; Bath bench; Commode; Grab bars Employment: No Hobbies/Interests: camping, playing with grandkids Patient goals for therapy: play with grandkids, camp, take care of cabin Pain assessment: Pain present Shoulder pain fluctuates from 5-9 (a little better than resting) Objective Cognitive Status Examination Orientation: Oriented to person, place and time Level of Consciousness: Alert Follows Commands and Answers Questions: 100% of the time Personal Safety and Judgement: Intact Memory: Intact Attention: No deficits identified Organization/Problem Solving: No deficits identified Executive Function: No deficits identified MoCA The Jonancy Cognitive Assessment (MOCA) is a 30 point cognitive screening assessment. Normal scoreis considered = or > 26/30. The following ranges may be used to grade severity: 18-26 = mild cognitive impairment, 10-17= moderate cognitive impairment (MCI) and less than 10= severe cognitive impairment. These have not been researched. Average score for MCI is 22 and for mild Alzheimer's disease is 16. Pt scored 29/30 scoring indicating cognition WNL. -1 point for delayed recall. SENSATION: lateral aspect of 5th finger numb but this was the case prior to stroke POSTURE: R shoulder protracted RANGE OF MOTION: Shoulder flexion AROM ~5 degrees without shoulder hiking while seated, full ROM elbow flexion/extension with support for plane of movement, full ROM forearm pronation/supination AROM, wrist flexion/extension and finger flexion/extension able to achieve full range with assist to reach end range STRENGTH: R UE: able to retract scapula, 3/5 bicep flexion, 4+/5 internal shoulder rotation; see above for AROM comments Deck Supervisor: R-13#; L-48# Lateral prince pinch: R-5#, L-11# 3 point pinch: R-3#; L-12# MUSCLE TONE: shoulder subluxation COORDINATION: able to cloth picker peg for 9HPT with R hand using gross grasp vs pincer grasp BALANCE: defer to PT assessment FUNCTIONAL MOBILITY Assistive Device(s): Cane (quad), Walker (four wheeled), Wheelchair (manual) Ambulation: with assistance Wheelchair: with assistance using bariatric w/c at time of session BED MOBILITY: Pt reports sliding off edge of bed last night when attempting to transfer back into bed. TRANSFERS: I'ly transferring from most surfaces BATHING: Contact Guard, SBA Equipment: shower chair and grab bars UPPER BODY DRESSING: Min Assist LOWER BODY DRESSING: Independent, currently wearing slip on shoes TOILETING: Independent Equipment: Commode chair GROOMING: Independent EATING/SELF FEEDING: hasn't tried cutting up foods yet, able to eat with L hand ACTIVITY TOLERANCE: Gets tired more easily-reports pacing self is challenging INSTRUMENTAL ACTIVITIES OF DAILY LIVING (IADL): Meal Planning/Prep: Currently having increased assistance Home/Drawing Frame Tender: currently having increased assistance Communication/Computer Use: Uses L hand for technology devices Community Mobility: Not currently driving but would like to return to this Care of Others:- enjoys playing with grandchildren Assessment & Plan CLINICAL IMPRESSIONS Medical Diagnosis: Cerebrovascular accident (CVA) due to thrombosis of left middle cerebral artery Treatment Diagnosis: Activity of daily living alteration Impression/Assessment: Pt is a 73 yo f referred to occupational therapy referred to OP OT followinga stay at [facility]. Pt presented 06/30/23 with R sided weakness, slurred speech, and word finding difficulties and found to have experienced a L MCA CVA. 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 In ARU pt noted to have impaired strength , activity tolerance, coordination, communication and safety awareness along with R inattention. Ptdischarged from ARU 07/18/23 to daughter's home with daytime assistance and recommendation for OP OT. Clinical Decision Making (Complexity): Assessment of Occupational Performance: 3-5 Performance Deficits Occupational Performance Limitations: functional mobility, driving and community mobility, home establishment and management, meal preparation and cleanup, and leisure activities Clinical Decision Making (Complexity): Moderate complexity PLAN OF CARE Treatment Interventions: Interventions: Self-Care/Home Management, Therapeutic Activity, Therapeutic Exercise, Manual Therapy, Neuromuscular Re-education Fci Goals OT Goal 1 Goal Identifier: fatigue management Goal Description: Pt will demonstrate at least 3 energy conservation strategies (e.g. pacing, planning, prioritizing, sleep hygiene, etc.) to facilitate improved fatigue management with ADL/IADL tasks (e.g. laundry, building/handiwork, meal preparation, walking/exercise). Rationale: In order to maximize safety and independence with ADL/IADLs Target Date: 10/17/23 OT Goal 2 Goal Identifier: R UE function Goal Description: Patient to demonstrate functional tasks with 50% use of R UE as gross stabilizer or gross assist for increased ADL/IADL independence and closer return to prior level of function. Rationale: In order to maximize safety and independence with ADL/IADLs Target Date: 10/17/23 OT Goal 3 Goal Identifier: home program Goal Description: Pt to complete invidualized HEP including ROM, WBing for tone management, NMES ifindicated, and progressing to strength training to maximize functional use of R UE during daily living tasks. Rationale: In order to maximize safety and independence with ADL/IADLs Target Date: 10/17/23 OT Goal 4 Goal Identifier: ROM Goal Description: Pt will increase AROM shoulder flexion with R UE seated to 60 degrees or greater without compensatory muscle use and demonstrating functional reaching pattern to maximize functionaluse of R UE during daily living tasks. Rationale: In order to maximize safety and independence with ADL/IADLs Target Date: 10/17/23 OT Goal 5 Goal Identifier: carding supervisor Goal Description: Patient to demonstrate improved B carding supervisor strength by 5# for increased ADL/IADL independence (hanging onto objects for hygienes, home and work tasks, etc.). Rationale: In order to maximize safety and independence with ADL/IADLs Target Date: 10/17/23 Frequency of Treatment: 2x/week decreasing frequency as clinically indicated/necessary Duration of Treatment: up to 90 days Recommended Referrals to Other Professionals: no additional referrals indicated at time of eval; ptalso with [facility] and PT OP services recommended Education Assessment: Learner/Method: Patient;Family Education Comments: Educated on role/scope of OT and POC/goals Risks and benefits of evaluation/treatment have been explained. Patient/Family/caregiver agrees with Plan of Care. Evaluation Time: OT Teresa, Low Complexity Minutes (87495): 39 Signing Clinician: NOEL Colunga [facility] OUTPATIENT OCCUPATIONAL THERAPY PLAN OF TREATMENT FOR OUTPATIENT REHABILITATION Patient's Last Name, First Name, Miya Stephenson Date of : 1950 Provider's Name [facility] Onset Date: 06/30/23 Start of Care Date: 07/20/23 Medical Diagnosis: Cerebrovascular accident (CVA) due to thrombosis of left middle cerebral artery OT Treatment Diagnosis: Activity of daily living alteration Plan of Treatment Frequency/Duration:2x/week decreasing frequency as clinically indicated/necessary/up to 90 days Certification date from 07/20/23 To 10/17/23 See note for plan of treatment details and functional goals NOEL Colunga I CERTIFY THE NEED FOR THESE SERVICES FURNISHED UNDER THIS PLAN OF TREATMENT AND WHILE UNDER MY CARE (Physician attestation of this document indicates review and certification of the therapy plan). Referring Provider: Ibeth Ellison Initial Assessment See Epic Evaluation- 07/20/23 Associated attestation - Ibeth Ellison MD - 07/20/2023 6:40 PM CDT Physician Attestation I agree with the information in this note. IBETH ELLISON MD documented in this encounter Plan of Treatment Upcoming Encounters Date Type Department Care Team (Late st Contact Info) Description 09/19/2023 2:15 PM CDT Therapy Visit [address] [phone] Ibeth Ellison MD [address] [place] [address] [phone] Marquita Trivedi, PT 09/19/2023 3:00 PM CDT Therapy Visit [address] [phone] Ibeth Ellison MD [address] [place] [address] [phone] Gabriella Bailey, OTR [address] [address] 09/21/2023 2:15 PM CDT Therapy Visit [address] [phone] Ibeth Ellison MD [address] [place] [address] [phone] Marquita Trivedi, PT 09/21/2023 3:45 PM CDT Therapy Visit [address] [phone] Ibeth Ellison MD [address] [place] [address] [phone] Dylan Mccann, OT 09/26/2023 9:45 AM CDT Therapy Visit M [address] [phone] Ibeth Ellison MD [address] [place] [address] [phone] Maura Javier, PT [address] [id number] 09/26/2023 11:00 AM CDT Therapy Visit [address] [phone] Ibeth Ellison MD [address] [place] [address] [phone] Gabriella Bailey, OTR [address] [address] 09/28/2023 10:30 AM CDT Therapy Visit [address] [phone] Ibeth Ellison MD [address] [place] [address] [phone] Maura Javier, PT [address] [id number] 09/28/2023 11:30 AM CDT Therapy Visit [address] [phone] Ibeth Ellison MD [address] [place] [address] [phone] Dylan Mccann, OT 10/03/2023 9:30 AM CDT Therapy Visit [address] [phone] Ibeth Ellison MD [address] [place] [address] [phone] Gabriella Bailey, OTR [address] [address] 10/03/2023 10:30 AM CDT Therapy Visit [address] [phone] Ibeth Ellison MD [address] [place] [address] [phone] Marquita Trivedi, PT 10/05/2023 9:45 AM CDT Therapy Visit [address] [phone] Ibeth Ellison MD [address] [place] [address] [phone] Maura Javier Ap, PT [address] [address] 10/05/2023 10:45 AM CDT Therapy Visit [address] [phone] Ibeth Ellison MD [address] [place] [address] [phone] Dylan Mccann, OT 10/10/2023 9:30 AM CDT Therapy Visit [address] [phone] Ibeth Ellison MD [address] [place] [address] [phone] Gabriella Bailey, OTR [facility] [address] [place] [address] 10/10/2023 10:30 AM CDT Therapy Visit [address] [phone] Ibeth Ellison MD [address] [place] [address] [phone] Marquita Trivedi, PT 10/12/2023 9:45 AM CDT Therapy Visit [address] [phone] Ibeth Ellison MD [address] [place] [address] [phone] Maura Javier Ap, PT [address] [phone] 10/12/2023 10:45 AM CDT Therapy Visit [address] [phone] Ibeth Ellison MD [address] [place] [address] [phone] Dylan Mccann, OT 10/17/2023 9:30 AM CDT Therapy Visit [address] [phone] Ibeth Ellison MD [address] [place] [phone] Gabriella Bailey, OTR [facility] [address] [place] [phone] 10/17/2023 10:30 AM CDT Therapy Visit [address] [phone] Ibeth Ellison MD [address] [place] [address] [phone] Marquita Trivedi, PT 10/19/2023 10:15 AM CDT Therapy Visit [address] [phone] Ibeth Ellison MD [address] [place] [address] [phone] Annamaria Dennison [address] [address] 10/19/2023 11:15 AM CDT Therapy Visit [address] [phone] Ibeth Ellison MD [address] [place] [address] [phone] Marquita Trivedi, PT 10/24/2023 12:15 PM CDT Therapy Visit [address] [phone] Ibeth Ellison MD [address] [place] [phone] Maura Javier Ap, PT [address] [id number] 10/26/2023 11:30 AM CDT Therapy Visit [address] [phone] Ibeth Ellison MD [address] [place] [phone] Dylan Mccann, OT 10/26/2023 12:15 PM CDT Therapy Visit [address] [phone] Ibeth Ellison MD [address] [place] [address] [phone] Maura Javier Ap, PT [address] [id number] 10/31/2023 10:15 AM CDT Therapy Visit [address] [phone] Ibeth Ellison MD [address] [place] [address] [phone] Gabriella Bailey, OTR [address] [address] 10/31/2023 11:15 AM CDT Therapy Visit [address] [phone] Ibeth Ellison MD [address] [place] [address] [phone] Marquita Trivedi, PT 11/02/2023 10:00 AM CDT Therapy Visit [address] [phone] Ibeth Ellison MD [address] [place] [address] [phone] Dylan Mccann, OT 11/02/2023 11:15 AM CDT Therapy Visit [address] [place] [address] Ibeth Ellison MD [address] [place] [address] [phone] Marquita Trivedi, PT 11/07/2023 10:30 AM CDT Therapy Visit [address] [phone] Ibeth Ellison MD [address] [place] [address] [phone] Marquita Trivedi, PT 11/09/2023 10:30 AM CDT Therapy Visit [address] [phone] Ibeth Ellison MD [address] [place] [address] [phone] Marquita Trivedi, PT 11/14/2023 12:15 PM CDT Therapy Visit [address] [phone] Ibeth Ellison MD [address] [place] [address] [phone] Maura Javier Ap, PT [address] [id number] 11/16/2023 10:30 AM CDT Therapy Visit [address] [phone] Ibeth Ellison MD [address] [place] [address] [phone] Marquita Trivedi, PT documented as of this encounter Visit Diagnoses Diagnosis Cerebrovascular accident (CVA) due to thrombosis of left middle cerebral artery (H)- Primary Activity of daily living alteration Debility, unspecified documented in this encounter Care Teams Facility Supervisor Relationship Specialty Start Date End Date Trever Kyra Bell [address] [place] [address] PCP - General Physician Asp Developer 03/31/22 Angel Hollins MD [address] [id number] [place] [address] Neurology 07/20/23 Petra Dorado PA [facility] [address] [place] [address] Physician Asp Developer Physical Medicine and Rehabilitation 07/20/23 documented as of this encounter
--- OUTSIDE RECORDS SUMMARY | 2023-09-19 04:56 | XMS_ITS | Clinical Summary ---
Author Organization [facility] Address [address] [address] Phone Care Team Providers Care Retail Bakery Manager Name Role Phone Elsewhere, Pcp Primary Care [...] of Treatment Not on file Care Teams Retail Bakery Manager Relationship Specialty Start Date End Date Elsewhere, Pcp PCP - General 12/20/14
--- OUTSIDE RECORDS SUMMARY | 2023-09-19 04:56 | XMS_ITS | Encounter Summary ---
Author Organization [facility] Address [address] [place] [address] Care Team Providers Care Broach Setter Name Role Phone Kyra Perera Arabella Primary Care Provider [phone] Angel Hollins MD Unavailable Petra Dorado Unavailable [phone] Reason for Visit * Rehab Therapy Integrated Services (Routine) - Authorized Specialty Diagnoses / Procedures Referred By Contac t Referred To Contact Diagnoses Scot DAUGHERTY PF RN sent order Procedures PT NEURO EVAL [address] [address] Referral ID Status Reason Start Date Expiration Date V isits Requested Visits Authorized [id number] Authorized 07/18/2023 03/12/2024 365 365 Encounter Details Date Type Department Care Team (Late st Contact Info) Description 07/20/2023 10:15 AM CDT Therapy Visit [address] [phone] Ibeth Morgan MD [address] [place] [address] Marielena Quinteros, PT [facility] [address] [place], [place] [phone] Cerebrovascular accident (CVA) due to thrombosis of [...] as of this encounter Progress Notes * Aldair Marielena, PT - 07/20/2023 10:15 AM CDT PHYSICAL THERAPY EVALUATION Type of Visit: Evaluation See electronic medical record for Abuse and Falls Screening details. Subjective Presenting condition or subjective complaint: Patient discharged from [facility]U 07/18/23, 14 day stay. Presenting with right sided deficits from recent L MCA CVA. Notes she will be staying with her daughter for the foreseeable future. Is currently receiving assistance whenever she is up and walking with quad cane. Notes some discomfort in RUE in brace. Date of onset: 07/06/23 (referral date) Relevant medical history: Past Medical History: Diagnosis Date Anxiety CAD (coronary artery disease) HLD (hyperlipidemia) HTN (hypertension) SHERRIE (obstructive sleep apnea) Dates & types of surgery: see chart Prior diagnostic imaging/testing results: see chart Prior therapy history for the same diagnosis, illness or injury: discontinue from [facility] on 07/17/22 Prior Level of Function Transfers: Independent Ambulation: Independent ADL: Independent IADL: Driving, Finances, Laundry, Meal preparation, Work Living Environment Social support: Will be living with daughter for the foreseeable future Type of home: [facility] - has a basement suite that she lives in, 10+8 Stairs to enter the home: 4, no rails Ramp: Stairs inside the home: 10 + 8, yes Help at home: Dtr will be home most of the time, random couple of hours here and there Equipment owned: [employer], standard WC, grab bars, commode, bath bench Employment: Not working Hobbies/Interests: Camping, playing with her grandkids Patient goals for therapy: Be able to camp and take care of the cabin. Pain assessment: Pain denied, some discomfort in RUE brace. Objective Cognitive Status Examination Orientation: Oriented to person, place and time Level of Consciousness: Alert Follows Commands and Answers Questions: Follows multi step instructions Personal Safety and Judgement: Intact Memory: Intact OBSERVATION: Pt ambulating with quad cane, shoulder brace INTEGUMENTARY: Intact POSTURE: WFL, occasional L sided preference in standing RANGE OF MOTION: LE ROM WFL STRENGTH: Grossly reduced RLE, DF and hip flexor most substantially BED MOBILITY: Independent, though does note that she has slid off once TRANSFERS: Contact Guard WHEELCHAIR MOBILITY: Typically IND with BLE, sometimes A when fatigued GAIT: Level of Stanton: Contact Guard Assistive Device(s): Cane (quad) Gait Deviations: Base of support decreased Stance time decreased Stride length decreased Elaine decreased Drop foot R Gait Distance: Within clinic Stairs: CGA, completed 12 in clinic and has 10+8 at home she has been negotiating BALANCE: Sitting balance WNL, standing static balance with some left sided preference but able to hold EO/EC for 30 seconds. Noted deficits in dynamic balance with difficulty with coordination and motor control to RLE. SPECIAL TESTS Functional Gait Assessment (FGA) TOTAL SCORE: (MAXIMUM SCORE 30): 10 Indicating increased risk of falls. 10 Meter Walk Test (Comfortable) 13.62s, 0.44m/s 10 Meter Walk Test (Fast) 9.45s, 0.63 m/s 5 Times Rna-jw-Nital (5TSTS) 19.91s SENSATION: Slightly reduced RLE, varying responses COORDINATION: Reduced accuracy with RLE on heel to andrews MUSCLE TONE: WFL Assessment & Plan CLINICAL IMPRESSIONS Medical Diagnosis: I63.312 (ICD-10-CM) - Cerebrovascular accident (CVA) due to thrombosis of left middle cerebral artery (H) Treatment Diagnosis: Force production deficits, balance deficits,movement pattern coordination deficits Impression/Assessment: Patient is a 73 year old female with deficits in functional mobility secondary to recent L MCA CVA. The following significant findings have been identified: Decreased strength,Impaired balance, Decreased proprioception, Impaired sensation, Impaired gait, Impaired muscle performance, Decreased activity tolerance, and Instability. These impairments interfere with their ability to perform self care tasks, work tasks, recreational activities, cook fast food, household mobility, and community mobility as compared to previous level of function. Clinical Decision Making (Complexity): Clinical Presentation: Evolving/Changing Clinical Presentation Rationale: based on medical and personal factors listed in PT evaluation Clinical Decision Making (Complexity): Moderate complexity PLAN OF CARE Treatment Interventions: Interventions: Gait Training, Manual Therapy, Neuromuscular Re-education, Therapeutic Activity, Therapeutic Exercise Belt Conveyor Drier Goals PT Goal 1 Goal Identifier: HEP Goal Description: Pt will be able to demonstrate HEP activities without need for cues from providerto demonstrate understanding and independence with HEP. Rationale: to maximize safety and independence with performance of ADLs and functional tasks;to maximize safety and independence within the home;to maximize safety and independence within the community Target Date: 10/17/23 PT Goal 2 Goal Identifier: FGA Goal Description: Pt will demonstrate a 4 point improvement on the FGA to demonstrate minimum clinically significant difference in score to demonstrate improved safety with functional mobility and decrease risk of falls. Rationale: to maximize safety and independence within the home;to maximize safety and independence with performance of ADLs and functional tasks;to maximize safety and independence within the community Target Date: 10/17/23 PT Goal 3 Goal Identifier: Gait speed Goal Description: Pt will demonstrate a 0.12 second improvement in gait speed to demonstrate minimum clinically significant difference in score to demonstrate improved gait velocity. Rationale: to maximize safety and independence with performance of ADLs and functional tasks;to maximize safety and independence within the home;to maximize safety and independence within the community Target Date: 10/17/23 PT Goal 4 Goal Identifier: 5xSTS Goal Description: Pt will demonstrate a 2.3 seconds improvement on 5xSTS to demonstrate minimum clinically significant difference in score to demonstrate improved LE strength. Rationale: to maximize safety and independence with performance of ADLs and functional tasks;to maximize safety and independence within the home;to maximize safety and independence within the community Target Date: 10/17/23 Frequency of Treatment: 2x/week Duration of Treatment: 90 days Recommended Referrals to Other Professionals: Occupational Therapy, Speech Language Pathology Education Assessment: Learner/Method: Patient;Demonstration;Listening Education Comments: Pt verbalizes/demos understanding of education. Risks and benefits of evaluation/treatment have been explained. Patient/Family/caregiver agrees with Plan of Care. Evaluation Time: Gumaro Russell Minutes ([id number]): 55 Signing Clinician: Marielena Quinteros, PT, DPT Psychiatric OUTPATIENT PHYSICAL THERAPY PLAN OF TREATMENT FOR OUTPATIENT REHABILITATION Patient's Last Name, First Name, Miya Stephenson Date of : 1950 Provider's Name Psychiatric Onset Date: 07/06/23 (referral date) Start of Care Date: 07/20/23 Medical Diagnosis: I63.312 (ICD-10-CM) - Cerebrovascular accident (CVA) due to thrombosis of left middle cerebral artery (H) PT Treatment Diagnosis: Force production deficits, balance deficits,movement pattern coordination deficits Plan of Treatment Frequency/Duration: 2x/week/ 90 days Certification date from 07/20/23 to 10/17/23 See note for plan of treatment details and functional goals Marielena Quinteros, PT I CERTIFY THE NEED FOR THESE SERVICES FURNISHED UNDER THIS PLAN OF TREATMENT AND WHILE UNDER MY CARE (Physician attestation of this document indicates review and certification of the therapy plan). Referring Provider: Ibeth Morgan [facility]- Start of Care Date: 07/20/23 Associated attestation - Ibeth Morgan MD - 07/20/2023 12:07 PM CDT Physician Attestation I agree with the information in this note. IBETH MORGAN MD documented in this encounter Plan of Treatment Upcoming Encounters Date Type Department Care Team (Late st Contact Info) Description 09/19/2023 2:15 PM CDT Therapy Visit [address] [phone] Ibeth Morgan MD [address] [place] [phone] Marquita Trivedi PT 09/19/2023 3:00 PM CDT Therapy Visit [address] [phone] Ibeth Morgan MD [address] [place] [phone] Gabriella Bailey, PAMR [address] [address] 09/21/2023 2:15 PM CDT Therapy Visit [address] [phone] Ibeth Morgan MD [address] [place] [address] [phone] Marquita Trivedi, PT 09/21/2023 3:45 PM CDT Therapy Visit [address] [phone] Ibeth Morgan MD [address] [place] [address] [phone] Dylan Mccann, OT 09/26/2023 9:45 AM CDT Therapy Visit [address] [phone] Ibeth Morgan MD [address] [place] [address] [phone] Maura Javier Ap, PT [address] 664[address] 09/26/2023 11:00 AM CDT Therapy Visit [address] [phone] Ibeth Morgan MD [address] [place] [address] [phone] Gabriella Bailey, OTR [address] [address] 09/28/2023 10:30 AM CDT Therapy Visit [address] [phone] Ibeth Morgan MD [address] [place] [address] [phone] Maura Javier, PT [address] [place] [address] 09/28/2023 11:30 AM CDT Therapy Visit [address] [phone] Ibeth Morgan MD [address] [place] [address] [phone] Dylan Mccann, OT 10/03/2023 9:30 AM CDT Therapy Visit [address] [phone] Ibeth Morgan MD [address] [place] [address] [phone] Gabriella Bailey, OTR [address] 956687 10/03/2023 10:30 AM CDT Therapy Visit [address] [phone] Ibeth Morgan MD [address] [place] [address] [phone] Marquita Trivedi, PT 10/05/2023 9:45 AM CDT Therapy Visit [address] [phone] Ibeth Morgan MD [address] [place] [address] [phone] Maura aJvier, PT [address] [place], [place] [address] 10/05/2023 10:45 AM CDT Therapy Visit [address] [phone] Ibeth Morgan MD [address] [place] [address] [phone] Dylan Mccann, OT 10/10/2023 9:30 AM CDT Therapy Visit [address] [phone] Ibeth Morgan MD [address] [place] [address] [phone] Gabriella Bailey, OTR [address] [address] 10/10/2023 10:30 AM CDT Therapy Visit [address] [phone] Ibeth Morgan MD [address] [place] [address] [phone] Marquita Trivedi, PT 10/12/2023 9:45 AM CDT Therapy Visit [address] [phone] Ibeth Morgan MD [address] [place] [address] [phone] Maura Javier, PT [address] [address] 10/12/2023 10:45 AM CDT Therapy Visit [address] [phone] Ibeth Morgan MD [address] [place] [address] [phone] Dylan Mccann, OT 10/17/2023 9:30 AM CDT Therapy Visit [address] [phone] Ibeth Morgan MD [address] [place] [phone] Gabriella Bailey, OTR [address] [address] 10/17/2023 10:30 AM CDT Therapy Visit [address] [phone] Ibeth Morgan MD [address] [place] [address] [phone] Marquita Trivedi PT 10/19/2023 10:15 AM CDT Therapy Visit [address] [phone] Ibeth Morgan MD [address] [place] [phone] Annamaria Dennison [address] [address] 10/19/2023 11:15 AM CDT Therapy Visit [address] [phone] Ibeth Morgan MD [address] [place] [address] [phone] Marquita Trivedi, PT 10/24/2023 12:15 PM CDT Therapy Visit [address] [phone] Ibeth Morgan MD [address] [place] [address] [phone] Maura Javier, PT [address] [place], [place] [address] 10/26/2023 11:30 AM CDT Therapy Visit [address] [phone] Ibeth Morgan MD [address] [place] [address] [phone] Dylan Mccann, OT 10/26/2023 12:15 PM CDT Therapy Visit [address] [phone] Ibeth Morgan MD [address] [place] [address] [phone] Maura Javier, PT [address] [place], [place] [address] 10/31/2023 10:15 AM CDT Therapy Visit [address] [phone] Ibeth Morgan MD [address] [place] [address] [phone] Gabriella Bailey, OTR [address] [address] 10/31/2023 11:15 AM CDT Therapy Visit [address] [phone] Ibeth Morgan MD [address] [place] [phone] Marquita Trivedi, PT 11/02/2023 10:00 AM CDT Therapy Visit [address] [phone] Ibeth Morgan MD [address] [place] [address] [phone] Dylan Mccann, OT 11/02/2023 11:15 AM CDT Therapy Visit [address] [phone] Ibeth Morgan MD [address] [place] [phone] Marquita Trivedi, PT 11/07/2023 10:30 AM CDT Therapy Visit [address] [phone] Ibeth Morgan MD [address] [place] [address] [phone] Marquita Trivedi, PT 11/09/2023 10:30 AM CDT Therapy Visit [address] [phone] Ibeth Morgan MD [address] [place] [address] [phone] Marquita Trivedi, PT 11/14/2023 12:15 PM CDT Therapy Visit [address] [phone] Ibeth Morgan MD [address] [place] [address] [phone] Maura Javier Ap, PT [facility] [address] [facility] [address] [place], [place] 12[address] 11/16/2023 10:30 AM CDT Therapy Visit [facility] [address] [place] [phone] Ibeth Morgan MD [address] [place] [address] [phone] Marquita Trivedi, PT documented as of this encounter Visit Diagnoses Diagnosis Cerebrovascular accident (CVA) due to thrombosis of left middle cerebral artery (H)- Primary documented in this encounter Care Teams Broach Setter Relationship Specialty Start Date End Date Kyra Perera [address] [place] [address] PCP - General Physician Wireless Architect 03/31/22 Angel Hollins MD [address] [facility] [id number] [place] [address] Neurology 07/20/23 Petra Dorado PA [address] [place] [address] [address] [place] [address] Physician Wireless Architect Physical Medicine and Rehabilitation 07/20/23 documented as of this encounter
--- OUTSIDE RECORDS SUMMARY | 2023-09-19 04:56 | XMS_ITS | Encounter Summary ---
Author Organization [facility] Address [address] [place] [address]. [place] [address] Care Team Providers Care Diesel Trailer Mechanic Name Role Phone Gwensofi Kyra Bell Primary Care Provider [phone] Reason for Referral * Consultation (Routine: Next available opening) - Pending Review Specialty Diagnoses / Procedures Referred By Scott muniz Referred To Contact Diagnoses Cerebrovascular accident (CVA) due to thrombosis of left middle cerebral artery (H) Petra Dorado PA [address] [id number] Referral ID Status Reason Start Date Expiration Date V isits Requested Visits Authorized [id number] Pending Review 07/19/2023 07/18/2024 1 1 Question Answer Reason for Referral: Stroke Scheduling Instructions: [facility] will call you to coordinate your care as prescribed by your provider. If you don't hear from a claim representative within 2 business days, please call . Comments Please be aware that coverage of these services is subject to the terms and limitations of your health insurance plan. Call member services at your health plan with any benefit or coverage questions. [facility] will call you to coordinate your care as prescribed by your provider. If you don't hear from a claim representative within 2 business days, please call . * Therapeutic Services (Routine) - Pending Review Specialty Diagnoses / Procedures Referred By Scott t Referred To Contact Diagnoses Cerebrovascular accident (CVA) due to thrombosis of left middle cerebral artery (H) Ibeth Ellison MD [address] [place] [id number] Referral ID Status Reason Start Date Expiration Date V isits Requested Visits Authorized [id number] Pending Review 07/18/2023 07/17/2024 1 1 Question Answer Course of Action: Evaluation and Treatment Speech Treatment Diagnosis: Dysarthria Specialty Services: Per Associated Diagnosis Scheduling Instructions: [facility] will call you to coordinate your care as prescribed by your provider. If you don't hear from a claim representative within 2 business days, please call . Comments Please be aware that coverage of these services is subject to the terms and limitations of your health insurance plan. Call member services at your health plan with any benefit or coverage questions. [facility] will call you to coordinate your care as prescribed by your provider. If you don't hear from a claim representative within 2 business days, please call . * Occupational Therapy (Routine) - Pending Review Specialty Diagnoses / Procedures Referred By Scott umniz Referred To Contact Diagnoses Cerebrovascular accident (CVA) due to thrombosis of left middle cerebral artery (H) Ibeth Ellison MD [address] [place] [id number] Referral ID Status Reason Start Date Expiration Date V isits Requested Visits Authorized [id number] Pending Review 07/18/2023 07/17/2024 1 1 Question Answer Course of Action: Evaluation and Treatment Specialty Services: Per Associated Diagnosis Scheduling Instructions: [facility] will call you to coordinate your care as prescribed by your provider. If you don't hear from a claim representative within 2 business days, please call . Comments Please be aware that coverage of these services is subject to the terms and limitations of your health insurance plan. Call member services at your health plan with any benefit or coverage questions. [facility] will call you to coordinate your care as prescribed by your provider. If you don't hear from a claim representative within 2 business days, please call . * Rehab Therapy Physical Therapy (Routine) - Pending Review Specialty Diagnoses / Procedures Referred By Scott muniz Referred To Contact Diagnoses Cerebrovascular accident (CVA) due to thrombosis of left middle cerebral artery (H) Ibeth Ellison MD [address] [place] [address] Referral ID Status Reason Start Date Expiration Date V isits Requested Visits Authorized [id number] Pending Review 07/18/2023 07/17/2024 1 1 Question Answer Course of Action: Evaluation and Treatment Specialty Services: Per Associated Diagnosis Scheduling Instructions: [facility] will call you to coordinate your care as prescribed by your provider. If you don't hear from a claim representative within 2 business days, please call . Comments Please be aware that coverage of these services is subject to the terms and limitations of your health insurance plan. Call member services at your health plan with any benefit or coverage questions. [facility] will call you to coordinate your care as prescribed by your provider. If you don't hear from a claim representative within 2 business days, please call . Reason for Visit * Auth/Cert (Routine) Specialty Diagnoses / Procedures Referred By Scott muniz Referred To Contact Rehabilitation Diagnoses 01.2 Right body, left brain involvement stroke; Left centrum semiovale and posterior putamen ischemic stroke [facility] [address] [place] [id number] Referral ID Status Reason Start Date Expiration Date Visits Re quested Visits Authorized [id number] 1 1 Encounter Details Date Type Department Care Team (Latest Contact Info) Description 07/06/2023 5:24 PM CDT - 07/19/2023 11:45 AM CDT Hospital Encounter [facility] [address] [phone] Ibeth Ellison MD [address] [place] [id number] Joanie Storey MD [address] [place] [id number] Cerebrovascular accident (CVA) due to thrombosis of [...] Sign Reading Time Taken Comments Blood Pressure 168/74 07/19/2023 7:33 AM CDT Pulse 86 07/19/2023 7:33 AM CDT Temperature 36.7 ??C (98.1 ??F) 07/19/2023 7:33 AM CD T Respiratory Rate 16 07/19/2023 7:33 AM CDT Oxygen Saturation 96% 07/19/2023 7:33 AM CDT Inhaled Oxygen Concentration - - Weight 64.6 kg (142 lb 6.4 oz) 07/14/2023 12:36 AM CDT Height - - Body Mass Index - - documented in this encounter Discharge Summaries * Ibeth Ellison MD - 07/19/2023 11:06 AM CDT Images from the original note were not included. [facility] Discharge summary Date of Admission: 07/06/2023 Date of Discharge: 07/19/2023 Disposition: Home Primary Care Physician: Kyra Perera Attending physician: Ibeth Ellison MD DISCHARGE DIAGNOSIS Patient Active Problem List Diagnosis Stroke (cerebrum) (H) Other speech disturbance BRIEF SUMMARY Miya Restrepo is a 73 year old [...] for secondary prevention. Admitted to rehab 07/06/23. REHABILITATION COURSE PT: Discharge Plan: To [facility], OP PT . Precautions: Falls, R hemiplegic [...] m/sec fast w/out device and SBA Assessment: pt cont to progress with all functional mob PT working of full flight of stairs and product safety and standards engineer for all mob, pt needing close SBA with CGA for stairs. Pt use quad cane for all standing mob. OT: Progress towards therapy goal(s). See goals on Care Plan in [facility] electronic health record for goal details. Goals partially met. Barriers to achieving goals: discharge from facility. Current status at discharge: Mobility: Mod I wc pivots with cane. CGA-Min Ax1 cane-based ambulation. Grooming: IND seated, extra time. Dressing: UB - IND. LB - Min A. Feet - IND shoes. Bathing: Declined shower; clinically reason transfer Mod I pivot wc <> ETB with grab bar and SBA tasks. Toileting: Transfer Mod I wc <> toilet with grab bar. IND trent cares seated; IND-Min A c/m pending clothing. 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 Contacts. Mildly impulsive. Mild attention deficits noted; family reported personality similar prior to hospitalization. RUE progression: - At admission, hemiparetic RUE with grossly 1-2 MMT - At discharge, Fugl Zhang UE assesment score of 37/66 within moderate-mild motor deficit classification Therapy recommendation(s): Continued therapy is recommended. Rationale/Recommendations: Pt progressed well during stay and will benefit from continued skilled occupational therapy to progress RUE sensorimotor recovery and reduce compensatory motor patterns, increased independence and safety in cane-based ambulatory ADLs and IADLs, and inform recommendations for readiness to return to own home with decreased daytime A. LAP WINDING MACHINE OPERATOR: Therapy recommendation(s): Continued therapy is recommended. Rationale/Recommendations: OP LAP WINDING MACHINE OPERATOR for motor speech per pt preference. Recommend OP LAP WINDING MACHINE OPERATOR determine appropriateness for ongoing LAP WINDING MACHINE OPERATOR at evaluation. Current Status: Hearing: WF Vision: wears contacts/glassse Communication: 100% intelligible. Expressive/receptive language intact. Cognition: Pt/family reports at baseline. Not assessed at ARU. Swallow: Regular diet/thin liquids. Not assessed at ARU. Discharge session: Pt reported she did not want to do LAP WINDING MACHINE OPERATOR session when LAP WINDING MACHINE OPERATOR arrived due to mouth swelling from increased medication dose. Pt agreeable to session with encouragement from LAP WINDING MACHINE OPERATOR regarding need for re-education, confirm discharge plan, etc. Pt agreeable to shortened session. Pt re-educated in motor speech strategies- breathing, slow, loud, overarticulate- and factors that can impact speech intellibility from day to day, during a day (e.g., fatigue). Pt continues to demonstrate 100% intelligibility; pt educated that she is easily understood, LAP WINDING MACHINE OPERATOR acknowledged pt perceiving her speech as disordered as it is different than prior to CVA. Pt continues to express wanting OP LAP WINDING MACHINE OPERATOR for ongoing motor speech treatment. MEDICAL COURSE Acute ischemic stroke Left Periventricular/Putamen Seen by [...] upper extremity apraxia. -HTN management as below -Completed ASA 325 mg & Plavix x21 days -HLD-management as below. -continue PT/OT/LAP WINDING MACHINE OPERATOR Frequent PVCs Follows with electrophysiology scheduled 07/17/[address] Benz, 7 day zio patch ordered per cardiology 06/23/23 - metoprolol 6.25 mg bid Anxiety -prior to admission on alprazolam 0.25 [...] very challenging see note for further details. -suspect anxiety about reaction to medications contributing [...] twice daily at 25 mg as needed. DISCHARGE MEDICATIONS Current Discharge Medication List START taking these medications Details !! aspirin (ASA) 325 MG EC tablet Take 1 tablet (325 mg) by mouth daily for 2 days Qty: 2 tablet, Refills: 0 Associated Diagnoses: Cerebrovascular accident (CVA) due to thrombosis of left middle cerebral artery (H) !! aspirin 81 MG EC tablet Take 1 tablet (81 mg) by mouth daily for 30 days Qty: 30 tablet, Refills: 0 Associated Diagnoses: Cerebrovascular accident (CVA) due to thrombosis of left middle cerebral artery (H) clopidogrel (PLAVIX) 75 MG tablet Take 1 tablet (75 mg) by mouth daily for 2 days Qty: 2 tablet, Refills: 0 Associated Diagnoses: Cerebrovascular accident (CVA) due to thrombosis of left middle cerebral artery (H) metoprolol tartrate (LOPRESSOR) 25 MG tablet Take 0.25 tablets (6.25 mg) by mouth 2 times daily for30 days Qty: 15 tablet, Refills: 0 Associated Diagnoses: Benign essential hypertension rosuvastatin (CRESTOR) 5 MG tablet Take 1 tablet (5 mg) by mouth once a week for 30 days Qty: 4 tablet, Refills: 0 Associated Diagnoses: Cerebrovascular accident (CVA) due to thrombosis of left middle cerebral artery (H) !! telmisartan (MICARDIS) 20 MG tablet Take 0.5 tablets (10 mg) by mouth daily for 30 days Qty: 15 tablet, Refills: 0 Associated Diagnoses: Cerebrovascular accident (CVA) due to thrombosis of left middle cerebral artery (H); Benign essential hypertension !! telmisartan (MICARDIS) 20 MG tablet Take 0.5 tablets (10 mg) by mouth every evening for 30 days Qty: 15 tablet, Refills: 0 Associated Diagnoses: Benign essential hypertension Vitamin D3 (CHOLECALCIFEROL) 25 mcg (1000 units) tablet Take 2 tablets (50 mcg) by mouth daily for 30 days Qty: 60 tablet, Refills: 0 Associated Diagnoses: Cerebrovascular accident (CVA) due to thrombosis of left middle cerebral artery (H) !! - Potential duplicate medications found. Please discuss with provider. DISCHARGE INSTRUCTIONS AND FOLLOW UP Discharge Procedure Orders Physical Therapy Twisthand Referral Standing Status: Future Referral Priority: Routine Referral Type: Rehab Therapy Physical Therapy Number of Visits Requested: 1 Occupational Therapy Twisthand Referral Standing Status: Future Referral Priority: Routine Referral Type: Occupational Therapy Number of Visits Requested: 1 Speech Therapy Twisthand Referral Standing Status: Future Referral Priority: Routine Referral Type: Therapeutic Services Number of Visits Requested: 1 Adult Neurology Twisthand Referral Standing Status: Future Referral Priority: Routine: Next available opening Referral Type: Consultation Number of Visits Requested: 1 Reason for your hospital stay Order Comments: Left hemisphere ischemic stroke Activity Order Comments: Your activity upon discharge: activity as tolerated and no driving until cleared byprimary physician or by OT through driving assessment. Order Specific Question Answer Comments Is discharge order? Yes Adult [facility] Follow-up and recommended labs and tests Order Comments: Follow up with following services has been arranged for you: pcp, neurology, cardiology, psychology/ psychiatry, PM&R. Consider sleep study through your PCP in about 6-8 weeks after discharge from rehab. Appointments on [facility] and/or [facility] (with [facility] or [facility] provider or service). Call [phone] if you haven't heard regarding these appointments within 7 days of discharge. Diet Order Comments: Follow this diet upon discharge: Orders Placed This Encounter Room Service Combination Diet Regular Diet; Thin Liquids (level 0) Order Specific Question Answer Comments Is discharge order? Yes PHYSICAL EXAMINATION Most recent Vital Signs: Vitals: 07/18/23 0750 07/18/23 1631 07/18/23 2117 07/19/23 0733 BP: (!) 182/92 (!) 154/77 (!) 169/86 (!) 168/74 BP Location: Left arm Left arm Patient Position: Cuff Size: Pulse: 83 82 86 86 Resp: 20 18 16 Temp: 97.2 ??F (36.2 ??C) 98.1 ??F (36.7 ??C) 98.1 ??F (36.7 ??C) TempSrc: Oral Oral Oral SpO2: 96% 94% 96% Weight: Gen: NAD, HEENT: MMM, EOMI Pulm: CTA, nonlabored Abd: Nondistended, nontender Ext: Calves are supple without edema Neuro/MSK: Right hemiparesis, continues to make improvements in motor function of the right upper extremity. Able to flex at the elbow against gravity, extend and flex fingers as well as supination/pronation of the forearm. Over 35 minutes spent in discharge, including >50% in counseling and coordination of care, medication review and plan of care recommended on follow up. Patient was evaluated on day of discharge by attending physician, Ibeth Ellison MD, who agrees with plan of care. Discharge summary was forwarded to Kyra Perera (PCP) at the time of discharge, so as to bridge from hospital to outpatient care. It was our pleasure to care for Miya Restrepo during this hospitalization. Please do not hesitateto contact me should there be questions regarding the hospital course or discharge plan. Ibeth Ellison MD Physical Medicine and Rehabilitation documented in this encounter Discharge Instructions * Discharge Instructions* Jayson Mishra R - 07/07/2023 1:34 PM CDT Images from the original note were not included. Follow up Appointments on Discharge: PCP You are scheduled to see Dr. Cesar on Jul 24 2023 at 1:45 pm. Address [address] [facility] [address] Neurology You are scheduled to see on at . Referral placed, you will be called to schedule appointment by the Neurology team. Address [address] [address] Cardiology You are scheduled to see Dr. Nunez on September 07 2023 at 10:45 am. Address [address] [facility] [address] PM & R You are scheduled to see Dr. Cesar on September 18 2023 at 11:15 am. Address [address] [facility] [address] [place] [employer] [email or web address] Resource Facilitation is a free, two-year telephone support program provides education and connection to supports and services to assist people throughout [place] in navigating life after brain injury. Participants receive scheduled calls over a two-year period to help problem-solve issues and identify resources to help them transition back to family life, work, school, and the community while achieving the greatest level of independence as possible. Individuals can be referred by a professional or self-refer at any time. Types of services that Stroke Resource Facilitation offers include: Emotional support in coping with a ???new normal??? Finding mental health support and counselors who understand brain injury and stroke Finding a support group Finding or re-connecting to rehabilitation services Finding where and how to get a brain injury assessed Finding or re-connecting with a primary care physician Supporting caregivers by connecting them with resources Education about diagnosis and symptoms - ???Is this normal?? Helping educate family and loved ones of the survivor???s ???invisible?? symptoms Figuring out the logistics of returning to work, vocational rehab and understanding ADA rights If not going back to work, support in finding meaningful ways to structure your day and exploring volunteer options Coaching on navigation the federal, [facility] and [facility] health and disability service system with additional support and conference calls as needed Help finding appropriate legal support for appealing and navigating Social Security Disability, providing advocacy on the individual???s behalf as needed and connecting with cost effective alternatives to trust evaluation supervisor as needed Supporting parents/students with how to discuss return to school and sports with educators and connecting to a TBI specialist or parent advocate group if needed Connecting to addiction (alcohol/drug/gambling/smoking) support and treatment services Support with creative problem solving to life barriers. *These are just a few examples of common things that Resource Facilitation can help with. They are not limited to what is listed here so if you are curious if they can help, just ask. Call us at [phone] or [phone]. documented in this encounter Medications at Time of Discharge Medication Sig Dispensed Refills Start Date End Date aspirin (ASA) 325 MG EC tabletIndications: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 (H) Take 1 tablet (325 mg) by mouth daily for 2 days 2 tablet 07/19/2023 07/21/2023 aspirin 81 MG EC tabletIndications:Cerebr ovascular accident [...] 07/18/2023 09/03/2023 documented as of this encounter Progress Notes * Cuco Ramos OT - 07/18/2023 11:43 AM CDT Occupational Therapy Discharge Summary Reason for therapy discharge: Discharged to daughter's home with daytime A, outpatient therapy. Progress towards therapy goal(s). See goals on Care Plan in [facility] electronic health record for goal details. Goals partially met. Barriers to achieving goals: discharge from facility. Current status at discharge: Mobility: Mod I wc pivots with cane. CGA-Min Ax1 cane-based ambulation. Grooming: IND seated, extra time. Dressing: UB - IND. LB - Min A. Feet - IND shoes. Bathing: Declined shower; clinically reason transfer Mod I pivot wc <> ETB with grab bar and SBA tasks. Toileting: Transfer Mod I wc <> toilet with grab bar. IND trent cares seated; IND-Min A c/m pending clothing. 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 Contacts. Mildly impulsive. Mild attention deficits noted; family reported personality similar prior to hospitalization. RUE progression: - At admission, hemiparetic RUE with grossly 1-2 MMT - At discharge, Fugl Zhang UE assesment score of 37/66 within moderate-mild motor deficit classification Therapy recommendation(s): Continued therapy is recommended. Rationale/Recommendations: Pt progressed well during stay and will benefit from continued skilled occupational therapy to progress RUE sensorimotor recovery and reduce compensatory motor patterns, increased independence and safety in cane-based ambulatory ADLs and IADLs, and inform recommendations for readiness to return to own home with decreased daytime A. Precautions: falls, R caitlin shoulder, BP OK for therapy if systolic <200 and asymptomatic, reaction to medications * Cuco Ramos OT - 07/18/2023 10:57 AM CDT FUGL-ZHANG ASSESSMENT UPPER EXTREMITY Assessment of sensorimotor function Stroke specific, performance-based impairment index. It is designed to assess motor functioning, sensation, and joint functioning in patients with post-stroke hemiplegia. Scoring The FMA is an impairment measure, consisting of 33 motor tasks and 30 sensory/pain observations. Motor and sensory items are scored on a 0-2 scale: 0 none, 1 partial, and 2 full. Motor Function Upper Extremity Wrist /10 Hand 12/24 Coordination/Speed 0/6 Total 37/66 Sensory Function Sensation 02/21 Joint Pain Passive Joint Motion Motor Classification Very Severe (0-12) Severe-Moderate (13-30) Moderate-Mild (31-47) Mild (48-60) References FMA-UE PROTOCOL [facility] Approved by Fugl-Zhang ROSIBEL 2009 Fugl-Zhang ROSIBEL, Cristela Shafer, Arelis I, Mary Jo S, Salvador S: The post-stroke hemiplegic patient. A method for evaluation of physical performance. Scand J Rehabil Med 1975, 7:13-31. Abbie et al.: Determining Levels of Upper Extremity Movement Impairment by Applying a Cluster Analysis to the Fugl-Zhang Assessment of the Upper Extremity in Chronic Stroke. Archives of Physical Medicine and Rehabilitation 2016, 98: 456-462. * Vanessa Escalera, [facility] - 07/18/2023 10:44 AM CDT Met with pt and pt luisr Fatemeh at bedside. Answered questions about discharge timing. Pt son planning to come tomorrow around 9:30am and will transport pt home. Pt had questions about OP set up, therapy to follow-up and pt aware. SW discussed [place] [employer] and offered a referral. Pt declinedat this time but appreciative of the information. Pt confirmed that she has the information to takehome and SW reminded pt that the information is also in her AVS for reference. IRF and IMM completed with pt. Pt and pt dtr denied additional needs or questions at this time. No additional SW needs. Home tomorrow, Mon07/19/23. IRF-IRIS Pain Assessment Pain Effect on Sleep Over the past 5 days, how much of the time has pain made it hard for you to sleep at night? 2. Occasionally Pain Interference with Therapy Activities Over the past 5 days, how often have you limited your participation in rehabilitation therapy sessions due to pain? 1. Rarely or not at all Pain Interference with Day-to-Day Activities Over the past 5 days, how often have you limited your day-to-day activities (excluding rehabilitation therapy sessions) because of pain? 1. Rarely or not at all SALMA Figueroa [facility] Inpatient Rehab Drum Barker Operator PH: [phone] & Email: [email or web address] * Marin Seymour SLP - 07/18/2023 9:06 AM CDT Speech Language Therapy Discharge Summary Reason for therapy discharge: Discharged to home with outpatient therapy. Progress towards therapy goal(s). See goals on Care Plan in [facility] electronic health record for goal details. Goals met Therapy recommendation(s): Continued therapy is recommended. Rationale/Recommendations: OP LAP WINDING MACHINE OPERATOR for motor speech per pt preference. Recommend OP LAP WINDING MACHINE OPERATOR determine appropriateness for ongoing LAP WINDING MACHINE OPERATOR at evaluation. Current Status: Hearing: WFL Vision: wears contacts/glassse Communication: 100% intelligible. Expressive/receptive language intact. Cognition: Pt/family reports at baseline. Not assessed at ARU. Swallow: Regular diet/thin liquids. Not assessed at ARU. Discharge session: Pt reported she did not want to do LAP WINDING MACHINE OPERATOR session when LAP WINDING MACHINE OPERATOR arrived due to mouth swelling from increased medication dose. Pt agreeable to session with encouragement from LAP WINDING MACHINE OPERATOR regarding need for re-education, confirm discharge plan, etc. Pt agreeable to shortened session. Pt re-educated in motor speech strategies- breathing, slow, loud, overarticulate- and factors that can impact speech intellibility from day to day, during a day (e.g., fatigue). Pt continues to demonstrate 100% intelligibility; pt educated that she is easily understood, LAP WINDING MACHINE OPERATOR acknowledged pt perceiving her speech as disordered as it is different than prior to CVA. Pt continues to express wanting OP LAP WINDING MACHINE OPERATOR for ongoing motor speech treatment. * Ibeth Ellison MD - 07/18/2023 7:47 AM CDT Images from the original note were not included. [facility] Daily progress note INTERVAL HISTORY Miya Restrepo was seen and examined in her room today. Apparently she had some issues with increasing her telmisartan. She tells me she had a sensation of her lip swelling and tingling sensations in her head. She wishes to go back down on her medication dose. I spent a fairly lengthy time talkingabout the importance of her secondary stroke prevention in my opinion about her intolerance to someof her medications. Otherwise she is doing well. No difficulties with bowel and bladder function. Sleep was not adequate last night due to her medication issues and her worrying. FUNCTIONAL UPDATES: PT: Current Status: Bed Mobility: [...] m/sec fast w/out device and SBA Assessment: pt cont to progress with all functional mob PT working of full flight of stairs and product safety and standards engineer for all mob, pt needing close SBA with CGA for stairs. Pt use quad cane for all standing mob. OT: Current status at discharge: Mobility: Mod I wc pivots with cane. CGA-Min Ax1 cane-based ambulation. Grooming: IND seated, extra time. Dressing: UB - IND. LB - Min A. Feet - IND shoes. Bathing: Declined shower; clinically reason transfer Mod I pivot wc <> ETB with grab bar and SBA tasks. Toileting: Transfer Mod I wc <> toilet with grab bar. IND trent cares seated; IND-Min A c/m pending clothing. 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 Contacts. Mildly impulsive. Mild attention deficits noted; family reported personality similar prior to hospitalization. RUE progression: - At admission, hemiparetic RUE with grossly 1-2 MMT - At discharge, Fugl Zhang UE assesment score of 37/66 within moderate-mild motor deficit classification LAP WINDING MACHINE OPERATOR: Current Status: Hearing: WFL Vision: wears contacts/glassse Communication: 100% intelligible. Expressive/receptive language intact. Cognition: Pt/family reports at baseline. Not assessed at ARU. Swallow: Regular diet/thin liquids. Not assessed at ARU. Discharge session: Pt reported she did not want to do LAP WINDING MACHINE OPERATOR session when LAP WINDING MACHINE OPERATOR arrived due to mouth swelling from increased medication dose. Pt agreeable to session with encouragement from LAP WINDING MACHINE OPERATOR regarding need for re-education, confirm discharge plan, etc. Pt agreeable to shortened session. Pt re-educated in motor speech strategies- breathing, slow, loud, overarticulate- and factors that can impact speech intellibility from day to day, during a day (e.g., fatigue). Pt continues to demonstrate 100% intelligibility; pt educated that she is easily understood, LAP WINDING MACHINE OPERATOR acknowledged pt perceiving her speech as disordered as it is different than prior to CVA. Pt continues to express wanting OP LAP WINDING MACHINE OPERATOR for ongoing motor speech treatment. MEDICATIONS Current Facility-Administered Medications Medication Dose Route [...] Dorado PA 75 mg at 07/17/23 0824 metoprolol tartrate (LOPRESSOR) quarter-tab 6.25 mg 6.25 mg Oral BID Petra Dorado PA 6.25 mgat 07/17/232036 rosuvastatin (CRESTOR) tablet 5 mg 5 mg Oral Weekly Petra Dorado PA telmisartan (MICARDIS) tablet 20 mg 20 mg Oral Daily Ibeth Ellison MD telmisartan (MICARDIS) tablet 20 mg 20 mg Oral QPM Petra Dorado PA 20 mg at 07/17/232036 Vitamin D3 (CHOLECALCIFEROL) tablet 50 mcg 50 mcg Oral Daily Petra Dorado PA 50 mcg at 07/17/23 0815 Current Facility-Administered Medications Medication Dose Route Frequency Provider Last Rate Last Admin acetaminophen (TYLENOL) tablet 650 mg 650 mg Oral Q4H PRN Joanie Storey MD 650 mg at 07/17/23 1235 ALPRAZolam (XANAX) half-tab 0.125 mg 0.125 mg Oral BID PRN Ibeth Ellison MD 0.125 mg at 07/18/23 0143 bisacodyl (DULCOLAX) suppository 10 mg 10 mg Rectal Daily PRN Petra Dorado PA diclofenac (VOLTAREN) 1 % topical gel 2 g 2 g Topical 4x Daily PRN Ibeth Ellison MD 2 g at 07/17/23 1235 diphenhydrAMINE (BENADRYL) capsule 25 mg 25 mg Oral BID PRN Ibeth Ellison MD 25 mg at 07/18/23 0142 fluticasone (FLONASE) 50 MCG/ACT spray 1 spray 1 spray Both Nostrils BID PRN Petra Dorado PA senna-docusate (SENOKOT-S/PERICOLACE) 8.6-50 MG per tablet 1 tablet 1 tablet Oral BID PRN Petra Dorado PA PHYSICAL EXAM BP (!) 172/78 (BP Location: Left arm, Patient Position: Supine, Cuff Size: Adult Regular) Pulse 77 Temp 97.7 ??F (36.5 ??C) (Oral) Resp 18 Wt 64.6 kg (142 lb 6.4 oz) SpO2 93% Gen: NAD, HEENT: MMM, EOMI Pulm: CTA, [...] Basic Metabolic Panel: Recent Labs Lab Test 07/17/23 0744 07/10/23 0609 07/06/23 1900 NA 142 140 141 POTASSIUM 4.2 4.0 4.1 CHLORIDE 104 105 106 CO2 26 24 25 ANIONGAP 12 11 10 GLC 143* 94 105* BUN 13.5 19.1 18.6 CR 0.61 0.60 0.56 GFRESTIMATED >90 >90 >90 LIZ 9.4 9.1 9.0 Rehabilitation - continue comprehensive acute inpatient rehabilitation program with multidisciplinary approach including therapies, rehab nursing, and physiatry following. See interval history for updates. Admission to acute inpatient rehab acute left periventricular/putamen stroke. Impairment group code: 01.2 PT, OT and LAP WINDING MACHINE OPERATOR 60 minutes of each on a daily basis up to 6 days per week, in addition to rehab nursing and close management of machine crater. 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 -continue PT/OT/LAP WINDING MACHINE OPERATOR Frequent PVCs Follows with electrophysiology scheduled 07/17/23 [...] very challenging see note for further details. -bridge builder for emotional support -suspect anxiety about reaction [...] am and 20 mg at bedtime -Will revert back to previous dose of telmisartan -cardiology considering renal denervation -follow up Dr.Yale [...] to twice daily at 25 mg as needed and a scheduled dose at nighttime. Adjustment to disability: Clinical psychology to eval and treat FEN: reg Bowel: monitor; prn bowel meds Bladder: monitor DVT Prophylaxis: mechanical GI Prophylaxis: none Code: full Disposition: home ELOS: 07/19/23 Rehab prognosis: fair Follow up Appointments on Discharge: pcp, neurology, cardiology, psychology/ psychiatry, PM&R * Cuco Ramos OT - 07/17/2023 2:02 [...] palpable muscle contractions throughout session. Please see [email or web address] for further details on patient's stimulation parameters [...] Ellison MD - 07/17/2023 9:07 AM CDT [facility] Daily progress note INTERVAL [...] with lessening frequency. Outcome Measures: PASS: 07/07: 2907/14: Lyle: 07/07: 33/07/14: FGA: 07/14: 01/09 10mWT: [...] BID Petra Dorado PA 6.25 mgat 07/17/23 08 rosuvastatin (CRESTOR) tablet 5 mg 5 mg [...] Impairment group code: 01.2 PT, OT and LAP WINDING MACHINE OPERATOR 60 minutes of each on a daily basis up to 6 days per week, in addition to rehab nursing and close management of machine crater. 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 -continue PT/OT/LAP WINDING MACHINE OPERATOR Frequent PVCs Follows with electrophysiology scheduled 07/17/23 [...] very challenging see note for further details. -bridge builder for emotional support -suspect anxiety about reaction [...] palpable muscle contractions throughout session. Please see [email or web address] for further details on patient's stimulation parameters and ergometry outcomes. Changes in parameters that were part of this treatment: -resistance -pulse width, frequency -amplitude -pedal speed Functional outcomes from this intervention include: -reduced spasticity -improved sensory awareness and proprioception -improved muscle strength -improved motor coordination * Bhargavi Vicente, OT - 07/16/2023 8:46 AM CDT [facility] OT: Discharge Plan: daughter's home [...] Family training: Thursday 07/13 with yin Lawson PT/LAP WINDING MACHINE OPERATOR/OT - completed. DME: Owns shower chair. Pt family to order bed assist rail (preference), pressurized suction grab bar, and potential ETB. * Elijah Davis, PT - 07/15/2023 4:12 PM CDT 07/15/23 1500 Signing Clinician's Name / Credentials Signing clinician's name / credentials Elijah Davis DPT Functional Gait Assessment (Rehana Matt, Amanda Garvin, et al. (2004)) 1. GAIT LEVEL SURFACE [...] with vestibular disorder = 8 according to Dilan 2010 * Elijah Davis, PT - 07/15/2023 4:10 PM CDT 07/15/23 1400 Signing Clinician's Name / Credentials Signing clinician's name / credentials Elijah Davis DPT Lyle Balance Scale (WERO Lombardi, ROBBIN S, KAY KUMAR, Renaldo JAY: MEASURING BALANCE IN THE ELDERLY: VALIDATION OF [...] from the original note were not included. [facility] Daily progress note INTERVAL [...] for Mod I wc pivots toileting transfer. 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 Word-finding is WFL. Cognition: Pt/family reports at baseline. Not assessed at ARU. Swallow: Regular diet/thin liquids. Not assessed at ARU. Assessment: Pt and family present for training. Education provided on pt progress, dysarthria strategies, and tasks to complete at home with family at al to continue targeting dysarthria. LAP WINDING MACHINE OPERATOR addressed all concerns/?. Provided pt and famiyl with HEP MEDICATIONS Current Facility-Administered Medications Medication Dose Route Frequency Provider Last Rate Last Admin ALPRAZolam (XANAX) half-tab 0.125 mg 0.125 mg Oral Daily Ibeth Ellison MD 0.125 mg at 07/15/23 0759 aspirin [...] Petra Dorado PA 10 mg at 07/15/23 0759 telmisartan (MICARDIS) tablet 20 mg 20 mg [...] Impairment group code: 01.2 PT, OT and LAP WINDING MACHINE OPERATOR 60 minutes of each on a daily basis up to 6 days per week, in addition to rehab nursing and close management of machine crater. 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 -continue PT/OT/LAP WINDING MACHINE OPERATOR Frequent PVCs Follows with electrophysiology scheduled 07/17/23 [...] in past -psychology consult for emotional support, bridge builder for emotional support -suspect anxiety (worry about [...] further activities as noted above. * Bhargavi Vicente OT - 07/15/2023 9:16 AM CDT XCite stim [...] repetitions x1 set of lumbrical grasp with show card writer guiding through transitional movements. * Sujata Randle [...] Randle RD, LD Available via phone and [place] Vocera: 5R Acute Rehab Clinical Dietitian Weekend/Holiday Vocera: Weekend Holiday Clinical Dietitian [Multi Site Groups] * Vanessa Escalera ONCOLOGY TECHNICIAN - 07/14/2023 8:31 AM CDT Received two [...] pt dtr concerns and provided empathic listening. SW explained to ptdtr how SW would try to relieve some of her frustrations by adding some information to treatment team and provider sticky notes, as well as providing an update to direct team members and MISDRAW HAND (RE: foll ow-up apts). Assuming that pt discharge date will be extended, per pt dtr request and [facility], pt dtr requested to meet with this show card writer in person on 07/17 AM before noon. [...] available. No other needs requested. SALMA [facility]ero[facility] Drum Barker Operator PH: [phone] & Email: [email or web address] * Ibeth Ellison MD - 07/14/2023 7:52 AM CDT [facility] Daily progress note INTERVAL [...] for Mod I wc pivots toileting transfer. 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 Word-finding is WFL. Cognition: Pt/family reports at baseline. Not assessed at ARU. Swallow: Regular diet/thin liquids. Not assessed at ARU. Assessment: Pt and family present for training. Education provided on pt progress, dysarthria strategies, and tasks to complete at home with family at al to continue targeting dysarthria. LAP WINDING MACHINE OPERATOR addressed all concerns/?. Provided pt and famiyl with HEP MEDICATIONS Current Facility-Administered Medications Medication Dose Route Frequency Provider Last Rate Last Admin ALPRAZolam (XANAX) half-tab 0.125 mg 0.125 mg Oral TID Petra Dorado PA 0.125 mg at 07/13/23 2213 aspirin (ASA) EC tablet 325 mg 325 mg Oral Daily Petra Dorado PA 325 mg at 07/13/23 0832 cetirizine (zyrTEC) solution 5 mg 5 mg Oral At Bedtime Petra Dorado PA 5 mg at 07/13/232057 clopidogrel (PLAVIX) tablet 75 mg 75 mg Oral Daily Petra Dorado PA 75 mg at 07/13/23 0833 metoprolol tartrate (LOPRESSOR) quarter-tab 6.25 mg 6.25 [...] Impairment group code: 01.2 PT, OT and LAP WINDING MACHINE OPERATOR 60 minutes of each on a daily basis up to 6 days per week, in addition to rehab nursing and close management of machine crater. 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 -continue PT/OT/LAP WINDING MACHINE OPERATOR Frequent PVCs Follows with electrophysiology scheduled 07/17/23 [...] in past -psychology consult for emotional support, bridge builder for emotional support -suspect anxiety (worry about [...] difficulty getting therapeutic secondary stroke prevention. Appears shenailas tried/ been on pepcid and flonase in [...] reviewing chart, seeing and examining patient. * Vanessa Escalera LICSW - 07/13/2023 10:29 AM CDT Team rounds. Targeting discharge 07/16/23. Family training tomorrow, Mon07/14/23. May considerextending an extra day or two, pending training. Planning for OP at discharge. SW will meet with ptbefore discharge to complete IRF and IMM. No other SW needs identified at this time. Will continue to follow and remain available. SLAMA Figuero[facility] Drum Barker Operator PH: [phone] & Email: [email or web address] * Petra Dorado PA - 07/13/2023 7:53 AM CDT Images from the original note were not included. [facility] Daily progress note INTERVAL [...] Impairment group code: 01.2 PT, OT and LAP WINDING MACHINE OPERATOR 60 minutes of each on a daily basis up to 6 days per week, in addition to rehab nursing and close management of machine crater. 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 -continue PT/OT/LAP WINDING MACHINE OPERATOR Frequent PVCs Follows with electrophysiology scheduled 07/17/23 [...] in past -psychology consult for emotional support, bridge builder for emotional support -suspect anxiety (worry about [...] pepcid and flonase in past. -started zyrtec 5/1 5 mg at bedtime - liquid per [...] I spent a total of 40 minutes [id number] or managing the care of Myia Restrepo, seen during team rounds. Associated attestation - Ibeth Ellison MD - 07/13/2023 8:03 PM CDT Physician Attestation I saw and evaluated Miya Restrepo as part of a shared PUBLICITY PERSON/PA visit. I personally reviewed the vital signs, [...] palpable muscle contractions throughout session. Please see [email or web address] for further details on patient's stimulation parameters [...] palpable muscle contractions throughout session. Please see [email or web address] for further details on patient's stimulation parameters [...] 0.5W -Active Minutes: 3:09 * Bisi Gray, JB - 07/11/2023 8:53 AM CDT [facility] LAP WINDING MACHINE OPERATOR: Discharge Plan: home with dtr ? OP LAP WINDING MACHINE OPERATOR per pt request Precautions: fall Current Status: [...] to Discharge (Family Training, etc): None from LAP WINDING MACHINE OPERATOR perspective. * Petra Dorado PA - 07/11/2023 7:48 AM CDT Images from the original note were not included. [facility] Daily progress note INTERVAL [...] or atarax vs singulair...to try to prevent symptomsshe does not recall consistently taking any antihistamine, [...] Daily Petra Dorado PA 325 mg at 07/10/23 0828 clopidogrel (PLAVIX) tablet 75 mg 75 mg Oral Daily Petra Dorado PA 75 mg at 07/10/23 0828 diclofenac (VOLTAREN) 1 % topical gel 2 [...] Joanie Storey MD 650 mg at 07/10/23 1748 ALPRAZolam (XANAX) tablet 0.25 mg 0.25 mg [...] Impairment group code: 01.2 PT, OT and LAP WINDING MACHINE OPERATOR 60 minutes of each on a daily basis up to 6 days per week, in addition to rehab nursing and close management of machine crater. 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 -continue PT/OT/LAP WINDING MACHINE OPERATOR Frequent PVCs Follows with electrophysiology scheduled 07/17/23 [...] in past -psychology consult for emotional support, bridge builder for emotional support -suspect anxiety (worry about [...] I spent a total of 45 minutes [id number] or managing the care of Miya Restrepo, we discussed medications, side effects, possible treatment, reviewed chart/ notes, labs. Associated attestation - Ibeth Ellison MD - 07/11/2023 2:11 PM CDT Physician Attestation I saw and evaluated Miya Restrepo as part of a shared PUBLICITY PERSON/PA visit. I personally reviewed the vital signs, [...] saw the patient): 07/11/23 * Bisi Gray, LAP WINDING MACHINE OPERATOR - 07/10/2023 12:20 PM CDT [facility] LAP WINDING MACHINE OPERATOR: Discharge Plan: home with dtr ? OP LAP WINDING MACHINE OPERATOR per pt request Precautions: fall Current Status: [...] across all forms of communication outside of LAP WINDING MACHINE OPERATOR. Pt in agreement. Pt able to implement strategies across structured sentences with 90% accuracy IND Other Barriers to Discharge (Family Training, etc): None from LAP WINDING MACHINE OPERATOR perspective. * JAD BAI - 07/10/2023 11:09 AM CDT Patient and her daughter participated in stroke education. They were engaged and asked appropriate questions. Stroke handbook reviewed with them and given to them to keep. * Petra Dorado PA - 07/10/2023 8:42 AM CDT Images from the original note were not included. [facility] Daily progress note INTERVAL [...] situation, Miya is interested in speaking to bridge builder, and hesitant but willing to speak to [...] Petra Dorado PA 10 mg at 07/10/23 0830 Vitamin D3 (CHOLECALCIFEROL) tablet 50 mcg 50 [...] Impairment group code: 01.2 PT, OT and LAP WINDING MACHINE OPERATOR 60 minutes of each on a daily basis up to 6 days per week, in addition to rehab nursing and close management of machine crater. 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 -continue PT/OT/LAP WINDING MACHINE OPERATOR Frequent PVCs Follows with electrophysiology scheduled 07/17/[address] Benz, 7 day zio patch ordered per cardiology 06/23/23 - metoprolol 6.25 mg bid -monitor BMP Anxiety -prior to admission on alprazolam 0.25 mg tid prn, and diazepam prn -continue xanax prn -consider addition of atarax prn -psychology consult for emotional support, bridge builder for emotional support -suspect anxiety contributing to [...] I spent a total of 45 minutes [id number] or managing the care of Miya Restrepo, we discussed hypertension management, anxiety, and hyperlipidemia, chart reviewed.. Associated attestation - Ibeth Ellison MD - 08/18/2023 1:49 AM CDT Physician Attestation I saw and evaluated Miya Restrepo as part of a shared PUBLICITY PERSON/PA visit. I personally reviewed the vital signs, medications, and labs. I personally provided a substantive portion of care for this patient and I approve the care plan aswritten by the TIMMY. I was involved with Medical Decision Making including: Please see A&P for additional details of medical decision making. 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 Word-finding is WFL. Cognition: Pt/family reports at baseline. Not assessed at ARU. Swallow: Regular diet/thin liquids. Not assessed at ARU. Assessment: LAP WINDING MACHINE OPERATOR provided continued training in speech intelligibility strategies, focusing on improved breath suppor and louder voice. Sound pressure meter utilized for visual feedback. Pt responded well to cueing strategies and utilized them in production of multisyllabic words with /b/ in inital/m edial/final position of single words and in sentences. Intelligibility is 100%, but pt requring mincues for use of strategies. LAP WINDING MACHINE OPERATOR provided education in breathing/phrasing to reduce rushing through speech. Pt noted to independently take drinks throughout session to reduce effects of xerostomia. Other Barriers to Discharge (Family Training, etc): None from LAP WINDING MACHINE OPERATOR perspective. * Cuco Ramos, OT - 07/08/2023 3:06 PM CDT [facility] OT: Discharge Plan: home with [...] with 0-100% stimulation applied to above muscles [id number] with 0.50.86 nm resistance. This OT adjusted e-stim and cycling parameters in real-time to ensure palpable muscle contractions throughout session. 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 Word-finding is WFL. Cognition: Pt/family reports at baseline. Not assessed at ARU. Swallow: Regular diet/thin liquids. Not assessed at ARU. Assessment: LAP WINDING MACHINE OPERATOR provided continued training in speech intelligibility strategies including slow rate, louder voice, exagerrated articulation, and improved breath support. Pt responded well to cueing strategies and utilized them in production of multisyllabic words with /b/ in inital/medial/final position of single words and in sentences. Intelligibility is 100%, but pt requring min cues for use of strategies. LAP WINDING MACHINE OPERATOR provided education in breathing/phrasing to reduce rushing through speech. LAP WINDING MACHINE OPERATOR also educated pt moistening oral cavity with liquid throughout the day and prior to speaking to reduce the chance of xerostomia exacerbating dysarthria. Pt voices comprehension and intent. Other Barriers to Discharge (Family Training, etc): None from LAP WINDING MACHINE OPERATOR perspective. * Nelli Frazier MD - 07/08/2023 [...] separate note for [facility] Nelli Frazier MD, [facility] Department of Rehabilitation * Ibeth Ellison MD - 07/07/2023 8:37 PM CDT Images from the original note were not included. [facility] Acute Rehabilitation Unit Daily progress note INTERVAL [...] Petra Dorado PA 0.25 mg at 07/07/23 174 bisacodyl (DULCOLAX) suppository 10 mg 10 mg [...] Impairment group code: 01.2 PT, OT and LAP WINDING MACHINE OPERATOR 60 minutes of each on a daily basis up to 6 days per week, in addition to rehab nursing and close management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 to work hard each PT session, still impulsive at time causing mild instability.V.c for safety limited carryover Other Barriers to Discharge (DME, Family Training, etc): DME: quad cane vs LRAD Family training: scheduled with pt daughter 07/13 * Plan of Care - Cuco Ramos OT - 07/11/2023 3:11 PM CDT [facility] OT: Discharge Plan: daughter's home [...] Family training: Thursday 07/13 with yin Weldon PT/LAP WINDING MACHINE OPERATOR/OT. DME: Owns shower chair, has access to manual wc. TBD pending progress. * Plan of Care - [facility] Elder Chung, MARY - 07/11/2023 2:06 PM CDT Orientation:A/O x4, [...] dose * Plan of Care - Cuco Ramos, OT - 07/10/2023 3:38 PM CDT [facility] OT: Discharge Plan: daughter's home [...] nsg. Scheduled family training with pt and dtr Fatemeh; confirmed daughter's home as discharge location. Other Barriers to Discharge (DME, Family Training, etc): Level of A. Home environment: Daughter's home initially; flight of stairs to mother in law suite with WIS. Weldon able to provide daytime A. Family training: Thursday 07/13 with yin Weldon PT/LAP WINDING MACHINE OPERATOR/OT. DME: Owns shower chair, has access to manual wc. TBD pending progress. * Plan of Care - Petra Perez, PT - 07/10/2023 3:04 PM CDT [facility] PT: Discharge Plan: To daughters [...] Outcome Measures: PASS: 07/07: Lyle: 07/07: Assessment: Progressed pt to amb into bathroom with nsg assist with quad cane. Stairs training, gait training with directional changes and additional resistance for increased intensity. Pt BP elevated, PA/MD OK BP to <200 systolic as long as pt asymptomatic. Other Barriers to Discharge (DME, Family Training, etc): DME: quad cane vs LRAD Family training: scheduled with pt daughter /3 * Plan of Care - Guerda Claire [...] Davenport, PT - 07/09/2023 4:28 PM CDT [facility] PT: Discharge Plan: Home (to [...] standing Outcome Measures: PASS: 07/07: Lyle: 07/07: 33/ 10MWT: 07/09: Assessment: Daughter present at therapy [...] family. * Plan of Care - Marielena Bain OTR - 07/09/2023 12:14 PM CDT [facility] OT: Discharge Plan: home with [...] current POC. * Pharmacy-Medication Regimen Review - [facility], [facility] - 07/08/2023 3:45 PM CDT Pharmacy Medication [...] Ibeth Ellison MD, 3 mg at 07/07/23 1929 metoprolol tartrate (LOPRESSOR) quarter-tab 6.25 mg, 6.25 [...] Communication/Cognition/Swallow: Formal speech evaluation completed this date. LAP WINDING MACHINE OPERATOR administered Fonda Dysarthria Assessment Tool (N-REI). Pt's verbal expression [...] pt/family. The pt will benefit from ongoing LAP WINDING MACHINE OPERATOR services targeting functional communication and intelligibility. Intensity of therapy: PT 60 minutes, 6x/week, for 7 to 10 days OT 60 minutes, 6 times/week, for 7 to 10 days LAP WINDING MACHINE OPERATOR 60 minutes, , for 7 to 10 [...] Grey, PT - 07/08/2023 12:56 PM CDT [facility] PT: Discharge Plan: Home (to pt house or daughters, pending progress), OP PT (pending stair progress) Precautions: Falls, R hemiplegic shoulder, R inattention Current Status: Bed Mobility: Iggy Transfer: Verna w/ NBQC cane Gait: Verna w/ NBQC, therapy only. Wc based for nsg to bathroom. Stairs: NT Balance: Seated balance static. Intermittent R lean w/ unsupported standing Outcome Measures: PASS: 07/07: 29/36 Lyle: 07/07: 33/ 10MWT: 07/08: Assessment: Lyle and PASS scores [...] Stand->sit without support - 3 12) Standing, sampler pickup pencil from floor without support - 3 [...] to be walking independently at 3 months. (Enrique, et al. 202. Postural Maintenance Is Associated with Walking Ability in People Received Acute Rehabilitation after Stroke) 07/08/23 1431 Signing Clinician's Name / Credentials Signing clinician's name / credentials Cielo Grey,DPT Lyle Balance Scale (WERO Lombardi, ROBBIN S, [...] Change = 6.5 according to Aamir & Jcey 2008 Assessment (rationale for performing, application to [...] and bowel. Transfers with A1 pivot to . Safety checks done. Patient able to turn [...] with POC. * Plan of Care - Petra Perez PT - 07/07/2023 12:24 PM CDT [facility] PT: Discharge Plan: Home (to [...] right arm pain and mild chest pain, Visual Presentation Manager offered pain meds, Pt decline. Rate pain [...] Huertas RN - 07/07/2023 5:20 AM CDT [id number] Pt. Is A & O X 4. Denies pain, SOB or acute distress. Daughter pent the night in Pt's room. Pt's B/P was 167/82. Pt declined intervention while stating My B/P runs in the 200s for a long number of years. This is actually one of my good numbers. I will wait till I take my blood pressure medications in the morning. Trimmer Helper signs and symptoms of cardiac arrest. Pt. [...] walker. Continent of bowel and bladder. LBM 4/25 per report. Call light within reach and safety alarms in place. documented in this encounter Plan of Treatment Upcoming Encounters Date Type Department Care Team (Late st Contact Info) Description 09/19/2023 2:15 PM CDT Therapy Visit [address] [phone] Ibeth Ellison MD [address] [place] [address] [phone] Marquita Trivedi, PT 09/19/2023 3:00 PM CDT Therapy Visit [address] [phone] Ibeth Ellison MD [address] [place] [address] [phone] Gabriella Bailey, OTR [address] [address] 09/21/2023 2:15 PM CDT Therapy Visit [address] [phone] Ibeth Ellison MD [address] [place] [address] [phone] Marquita Trivedi, PT 09/21/2023 3:45 PM CDT Therapy Visit [address] [phone] Ibeth Ellison MD [address] [place] [address] [phone] Dylan Mccann, OT 09/26/2023 9:45 AM CDT [facility] Visit [facility] [address] [phone] Ibeth Ellison MD [address] [place] [address] [phone] Maura Javier, PT [address] [id number] 09/26/2023 11:00 AM CDT Therapy Visit [address] [phone] Ibeth Ellison MD [address] [place] [address] [phone] Gabriella Bailey, OTR [address] [address] 09/28/2023 10:30 AM CDT Therapy Visit [address] [phone] Ibeth Ellison MD [address] [place] [address] [phone] Maura Javier, PT [address] [address] 09/28/2023 11:30 AM CDT Therapy Visit [address] [phone] Ibeth Ellison MD [address] [place] [address] [phone] Dylan Mccann, OT 10/03/2023 9:30 AM CDT Therapy Visit [address] [phone] Ibeth Ellison MD [address] [place] [address] [phone] Gabriella Bailey, OTR MILE [address] [address] 10/03/2023 10:30 AM CDT Therapy Visit [address] [phone] Ibeth Ellison MD [address] [place] [address] [phone] Marquita Trivedi, PT 10/05/2023 9:45 AM CDT Therapy Visit [address] [phone] Ibeth Ellison MD [address] [place] [address] [phone] Maura Javier Ap, PT [address] [address] 10/05/2023 10:45 AM CDT Therapy Visit [address] [phone] Ibeth Ellison MD [address] [place] [address] [phone] Dylan Mccann, OT 10/10/2023 9:30 AM CDT Therapy Visit [address] [phone] Ibeth Ellison MD [address] [place] [address] [phone] Gabriella Bailey, OTR FV [address] [address] 10/10/2023 10:30 AM CDT Therapy Visit [address] [phone] Ibeth Ellison MD [address] [place] [address] [phone] Marquita Trivedi, PT 10/12/2023 9:45 AM CDT Therapy Visit [address] [phone] Ibeth Ellison MD [address] [place] [address] [phone] Maura Javier Ap, PT [address] [phone] 10/12/2023 10:45 AM CDT Therapy Visit [address] [phone] Ibeth Ellison MD [address] [place] [address] [phone] Dylan Mccann, OT 10/17/2023 9:30 AM CDT Therapy Visit [address] [phone] Ibeth Ellison MD [address] [place] [address] [phone] Gabriella Bailey, OTR FV [address] [address] 10/17/2023 10:30 AM CDT Therapy Visit [facility] [address] [phone] Ibeth Ellison MD [address] [place] [address] [phone] Marquita Trivedi, PT 10/19/2023 10:15 AM CDT Therapy Visit [address] [phone] Ibeth Ellison MD [address] [place] [phone] Annamaria Dennison [address] [address] 10/19/2023 11:15 AM CDT Therapy Visit [address] [phone] Ibeth Ellison MD [address] [place] [address] [phone] Marquita Trivedi, PT 10/24/2023 12:15 PM CDT Therapy Visit [address] [phone] Ibeth Ellison MD [address] [place] [address] [phone] Maura Javier Ap, PT [address] [id number] 10/26/2023 11:30 AM CDT Therapy Visit [address] [phone] Ibeth Ellison MD [address] [place] [address] [phone] Dylan Mccann, OT 10/26/2023 12:15 PM CDT Therapy Visit [address] [phone] Ibeth Ellison MD [address] [place] [address] [phone] Maura Javier Ap, PT [address] [phone] 10/31/2023 10:15 AM CDT Therapy Visit [address] [phone] Ibeth Ellison MD [address] [place] [address] [phone] Gabriella Bailey, OTR [address] [address] 10/31/2023 11:15 AM CDT Therapy Visit [address] [phone] Ibeth Ellison MD [address] [place] [address] [phone] Marquita Trivedi, PT 11/02/2023 10:00 AM CDT Therapy Visit [address] [phone] Ibeth Ellison MD [address] [place] [address] [phone] Dylan Mccann, OT 11/02/2023 11:15 AM CDT Therapy Visit [address] [place] [phone] Ibeth Ellison MD [address] [place] [address] [phone] Marquita Trivedi, PT 11/07/2023 10:30 AM CDT Therapy Visit [address] [phone] Ibeth Ellison MD [address] [place] [address] [phone] Marquita Trivedi, PT 11/09/2023 10:30 AM CDT Therapy Visit [address] [phone] Ibeth Ellison MD [address] [place] [address] [phone] Marquita Trivedi, PT 11/14/2023 12:15 PM CDT Therapy Visit [address] [phone] Ibeth Ellison MD [address] [place] [address] [phone] Maura Javier, PT [address] 637805 11/16/2023 10:30 AM CDT Therapy Visit [address] [phone] Ibeth Ellison MD [address] [place] [address] [phone] Marquita Trivedi, PT Scheduled Referrals Name Type Priority Associated Diagnoses Order Schedule Physical Therapy Twisthand Referral Referral Routine Cerebrovascular accident (CVA) due to thrombosis of left middle cerebral artery (H) Expected: 07/18/2023 (Approximate), Expires: 07/17/2024 Occupational Therapy Twisthand Referral Referral Routine Cerebrovascular accident (CVA) due to thrombosis of left middle cerebral artery (H) Expected: 07/18/2023 (Approximate), Expires: 07/17/2024 Speech Therapy Twisthand Referral Referral Routine Cerebrovascular accident (CVA) due to thrombosis of left middle cerebral artery (H) Expected: 07/18/2023 (Approximate), Expires: 07/17/2024 Adult Neurology Twisthand Referral Referral Routine: Next available opening Cerebrovascular accident (CVA) due to thrombosis of left middle cerebral artery (H) Expected: 09/18/2023 (Approximate), Expires: 11/19/2023 documented as of this encounter Procedures Procedure [...] Results * Magnesium (07/17/2023 7:44 AM CDT) Magnesium 1.9 1.7 - 2.3 mg/dL 07/17/2023 9:27 AM CDT UR LABORATORY Blood STRUCTURE OF LEFT HAND / Unknown Venipuncture / Unknown 07/17/2023 7:44 AM CDT 07/17/2023 8:34 AM CDT Petra ANTHONY LAB - BLOOD ORDERAB LES UR LABORATORY [facility] [address] [place] [address], [address] [phone] * (ABNORMAL) CBC with platelets (07/17/2023 7:44 AM CDT) Pathologist [facility] WBC Count 4.8 4.0 - 11.0 10e3/uL [...] LAB - BLOOD ORDERAB LES UR LABORATORY [facility] [address] [facility], [address] [phone] * (ABNORMAL) Basic metabolic panel (07/17/2023 7:44 AM CDT) [facility] Signature Sodium 142 135 - 145 mmol/L 07/17/2023 [...] LAB - BLOOD ORDERAB LES UR LABORATORY [facility] [address] [facility], [address] [place] [address], [facility] * Magnesium (07/10/2023 6:09 AM CDT) Pathologist [facility] Magnesium 2.0 1.7 - 2.3 mg/dL 07/10/2023 7:27 AM CDT UR LABORATORY Blood STRUCTURE OF LEFT HAND / Unknown Venipuncture / Unknown 07/10/2023 6:09 AM CDT 07/10/2023 6:59 AM CDT Petra ANTHONY LAB - BLOOD ORDERAB LES UR LABORATORY [facility] [address] [facility], [address] [place] [address] * CBC with platelets (07/10/2023 6:09 AM CDT) [facility] WBC Count 6.0 4.0 - 11.0 10e3/uL [...] LAB - BLOOD ORDERAB LES UR LABORATORY [facility] [address] [facility], [address] [place] [address], [facility] * Basic metabolic panel (07/10/2023 6:09 AM CDT) Sodium 140 135 - 145 mmol/L 07/10/2023 [...] LAB - BLOOD ORDERAB LES UR LABORATORY [facility] [address] [facility], [address] [place] [address], [place] * CBC with platelets (07/07/2023 5:56 AM [...] LAB - BLOOD ORDERAB LES UR LABORATORY [facility] [address] [place] [address], [address] [place] [address], [facility] * Magnesium (07/07/2023 5:56 AM CDT) Magnesium 2.3 1.7 - 2.3 mg/dL 07/07/2023 6:45 AM CDT UR LABORATORY Blood STRUCTURE OF LEFT HAND / Unknown Venipuncture / Unknown 07/07/2023 5:56 AM CDT 07/07/2023 6:25 AM CDT Petra ANTHONY LAB - BLOOD ORDERAB LES UR LABORATORY [facility] [address] [facility], [address] [place] [phone] * (ABNORMAL) Basic metabolic panel (07/06/2023 7:00 [...] LAB - BLOOD ORDERAB LES UR LABORATORY [facility] [address] [facility], [address] [place] [address], [facility] documented in this encounter Visit Diagnoses Diagnosis Cerebrovascular accident (CVA) due to thrombosis of left middle cerebral artery (H)- Primary Anxiety Anxiety state, unspecified Benign essential hypertension Essential hypertension, benign Stroke (cerebrum) (H) Unspecified cerebral artery occlusion with cerebral infarction documented in this encounter Administered Medications Inactive [...] DAILY, First dose (after last modification) on Tu07/11/23 at 1400, Avoid taking with grapefruit juice $Given 07/14/2023 8:44 AM CDT 0.125 mg $Given 07/13/2023 10:13 PM CDT 0.125 mg $Given 07/13/2023 8:32 AM CDT 0.125 mg ALPRAZolam (XANAX) half-tab 0.125 mg 0.125 mg, Oral, DAILY, First dose (after last modification) on 07/15/23 at 0800, Avoid taking with grapefruit juice $Given 07/19/2023 8:19 AM CDT 0.125 mg $Given 07/18/2023 10:25 AM CDT 0.125 mg $Given 07/17/2023 8:15 AM CDT 0.125 mg ALPRAZolam (XANAX) half-tab 0.125 mg 0.125 mg, Oral, 2 TIMES DAILY PRN, anxiety, Starting on Mon07/14/23 at 1346, Avoid taking with grapefruit juice $Given 07/18/2023 9:21 PM CDT 0.125 mg $Given 07/18/2023 1:43 AM CDT 0.125 mg $Given 07/17/2023 4:13 PM CDT 0.125 mg ALPRAZolam (XANAX) tablet 0.25 mg 0.25 mg, Oral, 3 TIMES DAILY PRN, anxiety, Starting on Mon07/06/23 at 1736, Avoid taking with grapefruit juice $Given 07/10/2023 10:24 AM CDT 0.25 mg $Given 07/09/2023 2:19 PM CDT 0.25 mg $Given 07/08/2023 8:32 PM CDT 0.25 mg aspirin (ASA) EC tablet 325 mg 325 mg, Oral, DAILY, First dose on Mon07/07/23 at 0800, DO NOT CRUSH. DO NOT CRUSH. $Given 07/19/2023 8:19 AM CDT 325 mg $Given 07/18/2023 10:26 AM CDT 325 mg $Given 07/17/2023 8:21 AM CDT 325 mg bisacodyl (DULCOLAX) suppository 10 mg 10 mg, Rectal, DAILY PRN, constipation, Starting on Mon07/06/23 at 1736, Hold for loose stools. cetirizine (zyrTEC) solution 5 mg 5 mg, Oral, DAILY, First dose on Mon07/11/23 at 1030 $Given 07/12/2023 8:13 AM CDT 5 mg cetirizine (zyrTEC) solution 5 mg 5 mg, Oral, AT BEDTIME, First dose (after last modification) on Mon07/13/23 at 2100 $Given 07/13/2023 8:58 PM CDT 5 m g clopidogrel (PLAVIX) tablet 75 mg 75 mg, Oral, DAILY, First dose on Mon07/07/23 at 0800 $Given 07/19/2023 8:19 AM CDT 75 mg $Given 07/18/2023 10:26 AM CDT 75 mg $Given 07/17/2023 8:24 AM CDT 75 mg diclofenac (VOLTAREN) 1 [...] $Given 07/12/2023 7:41 PM CDT 2 g diclofenac (VOLTAREN) 1 % topical gel 2 g 2 g, Topical, 4 TIMES DAILY PRN, inflammatory pain, moderate pain, Starting on Mon07/13/23 at 1600, Apply to mid back. Use supplied dosing card to mearsure dose. $Given 07/19/2023 8:18 AM CDT 2 g $Given 07/17/2023 12:35 PM CDT 2 g $Given 07/17/2023 8:15 AM CDT 2 g diphenhydrAMINE (BENADRYL) capsule 25 mg 25 mg, Oral, 2 TIMES DAILY PRN, allergies, anxiety, Starting on Mon07/17/23 at 1200 $Given 07/18/2023 1:42 AM CDT 25 m g diphenhydrAMINE (BENADRYL) capsule 25-50 mg 25-50 mg, Oral, AT BEDTIME, First dose (after last modification) on Mon07/14/23 at 2000 $Given 07/16/2023 8:05 PM CDT 25 mg $Given 07/15/2023 7:33 PM CDT 25 mg $Given 07/14/2023 8:51 PM CDT 25 mg fluticasone (FLONASE) 50 MCG/ACT spray 1 spray 1 spray, Both Nostrils, 2 TIMES DAILY PRN, rhinitis, Starting on Mon07/06/23 at 1736 melatonin tablet 3 mg 3 mg, Oral, AT BEDTIME, First dose on Mon07/07/23 at 2100 $Given 07/07/2023 7:29 PM CDT 3 mg metoprolol tartrate (LOPRESSOR) quarter-tab 6.25 mg 6.25 mg, Oral, 2 TIMES DAILY, First dose on Mon07/06/23 at 2100, Hold for sbp <110 or pulse <60 $Given 07/19/2023 8:19 AM CDT 6.25 mg $Given 07/18/2023 9:17 PM CDT 6.25 mg $Given 07/18/2023 10:26 AM CDT 6.25 mg senna-docusate (SENOKOT-S/PERICOLACE) 8.6-50 MG per tablet 1 tablet 1 tablet, Oral, 2 TIMES DAILY PRN, constipation, Starting on Mon07/06/23 at 1736, Hold for loose stools. telmisartan (MICARDIS) half-tab 10 mg 10 mg, [...] 7:59 AM CDT 10 mg telmisartan (MICARDIS) half-tab 10 mg 10 mg, Oral, DAILY, First dose (after last modification) on Mon07/19/23 at 0800, Hold for sbp <110 $Given 07/19/2023 8:21 AM CDT 10 mg telmisartan (MICARDIS) half-tab 10 mg 10 mg, Oral, EVERY EVENING, First dose (after last modification) on Mon07/18/23 at 2000, Hold for sbp <110 $Given 07/18/2023 9:17 PM CDT 10 mg telmisartan (MICARDIS) tablet 20 mg 20 mg, Oral, EVERY EVENING, First dose on Mon07/10/23 at 2000, Medication Name: Telmisartan, Form: Capsule $Given 07/10/2023 7:43 PM CDT 20 mg telmisartan (MICARDIS) tablet 20 mg 20 mg, Oral, EVERY EVENING, First dose (after last modification) on Mon07/13/23 at 2100, Hold for sbp <110 $Given 07/17/2023 8:37 PM CDT 20 mg $Given 07/16/2023 8:05 PM CDT 20 mg $Given 07/15/2023 7:41 PM CDT 20 mg Vitamin D3 (CHOLECALCIFEROL) tablet 50 mcg 50 mcg, Oral, DAILY, First dose on Mon07/07/23 at 0800, Note: 25 mcg = 1000 units $Given 07/19/2023 8:19 AM CD T 50 mcg $Given 07/18/2023 10:26 AM CDT 50 mcg $Given 07/17/2023 8:15 AM CDT 50 mcg documented in this encounter Active and Recently Administered Medications Times are shown in CDT. Scheduled Medication Order 07/17/2023 07/18/2023 07/19/2023 ALPRAZolam (XANAX) half-tab 0.125 mg(Linked Group 1) 0.125 mg, Oral, DAILY, First dose (after last modification) on Mon07/15/23 at 0800, Avoid taking with grapefruit juice 0815 ($Given - Provider: Charlotte Zimmerman RN) 1025 ($Given - Provider: Sigrid English RN - Comment: pt refused all medications this morning stating she will start taking meds once provider speaks to her.) 0819 ($Given - Provider: Zayda Carr RN) aspirin (ASA) EC tablet 325 mg 325 mg, Oral, DAILY, First dose on Mon07/07/23 at 0800, DO NOT CRUSH. DO NOT CRUSH. 0821 ($Given - Provider: Charlotte Zimmerman RN) 1026 ($Given - Provider: Sigrid English, MARY - Comment: pt refused all medications this morning stating she will start taking meds once provider speaks to her.) 0819 ($Given - Provider: Zayda Carr RN) clopidogrel (PLAVIX) tablet 75 mg 75 mg, Oral, DAILY, First dose on Mon07/07/23 at 0800 0824 ($Given - Provider: Charlotte Zimmerman RN) 1026 ($Given - Provider: Sigrid English, MARY) 0819 ($Given - Provider: Zayda Carr, MARY) metoprolol tartrate (LOPRESSOR) quarter-tab 6.25 mg 6.25 mg, Oral, 2 TIMES DAILY, First dose on Mon07/06/23 at 2100, Hold for sbp <110 or pulse <60 0815 ($Given - Provider: Charlotte Zimmerman RN)2036 ($Given - Provider: Charlotte Zimmerman RN) 1026 ($Given - Provider: Sigrid English RN - Comment: pt refused all medications this morning stating she will start taking meds once provider speaks to her.)2116 ($Given - Provider: Elsy Jeffers, MARY) 0819 ($Given - Provider: Zayda Carr RN) telmisartan (MICARDIS) half-tab 10 mg (CANCELED) 10 mg, Oral, DAILY, First dose (after last reorder) on Mon07/14/23 at 0800, Hold for sbp <110 0815 ($Given - Provider: Charlotte Zimmerman RN) telmisartan (MICARDIS) half-tab 10 mg 10 mg, Oral, DAILY, First dose (after last modification) on Mon07/19/23 at 0800, Hold for sbp <110 0821 ($Given - Provider: Zayda Carr, MARY) telmisartan (MICARDIS) half-tab 10 mg 10 mg, Oral, EVERY EVENING, First dose (after last modification) on Mon07/18/23 at 2000, Hold for sbp <110 2116 ($Given - Provider: Elsy Jeffers, MARY) telmisartan (MICARDIS) tablet 20 mg (CANCELED) 20 mg, Oral, EVERY EVENING, First dose (after last modification) on Mon07/13/23 at 2100, Hold for sbp <110 2036 ($Given - Provider: Charlotte Zimmerman RN) Vitamin D3 (CHOLECALCIFEROL) tablet 50 mcg 50 mcg, Oral, DAILY, First dose on Mon07/07/23 at 0800, Note: 25 mcg = 1000 units 0815 ($Given - Provider: Charlotte Zimmerman RN) 1026 ($Given - Provider: Sigrid English RN - Comment: pt refused all medications this morning stating she will start taking meds once provider speaks to her.) 0819 ($Given - Provider: Zayda Carr RN) PRN Medication Order 07/17/2023 07/18/2023 07/19/2023 acetaminophen (TYLENOL) tablet 650 mg 650 mg, Oral, EVERY 4 HOURS PRN, mild pain, fever, Starting on Mon07/06/23 at 1758, Maximum acetaminophen dose from all sources = 75 mg/kg/day not to exceed 4 grams/day. 1235 ($Given - Provider: Charlotte Zimmerman RN) ALPRAZolam (XANAX) half-tab 0.125 mg(Linked Group 1) 0.125 mg, Oral, 2 TIMES DAILY PRN, anxiety, Starting on Mon07/14/23 at 1346, Avoid taking with grapefruit juice 1613 ($Given - Provider: Charlotte Zimmerman RN) 0143 ($Given - Provider: Vicki Simmons RN)2121 ($Given - Provider: Elsy Jeffers RN) bisacodyl (DULCOLAX) suppository 10 mg 10 mg, Rectal, DAILY PRN, constipation, Starting on Mon07/06/23 at 1736, Hold for loose stools. diclofenac (VOLTAREN) 1 % topical gel 2 g(Linked Group 2) 2 g, Topical, 4 TIMES DAILY PRN, inflammatory pain, moderate pain, Starting on Amy 07/13/23 at 1600, Apply to mid back. Use supplied dosing card to mearsure dose. 0815 ($Given - Provider: Charlotte Zimmerman RN)1235 ($Given - Provider: Charlotte Zimmerman, RN) 0818 ($Given - Provider: Zayda Carr, MARY) diphenhydrAMINE (BENADRYL) capsule 25 mg 25 mg, Oral, 2 TIMES DAILY PRN, allergies, anxiety, Starting on Mon07/17/23 at 1200 0142 ($Given - Provider: Vicki Simmons, MARY) fluticasone (FLONASE) 50 MCG/ACT spray 1 spray [...] dose. documented in this encounter Care Teams Diesel Trailer Mechanic Relationship Specialty Start Date End Date Kyra Perera [address] [place] [address] PCP - General Physician Client Operations Manager 03/31/22 documented as of this encounter
--- OUTSIDE RECORDS SUMMARY | 2023-09-19 04:56 | XMS_ITS ---
Author Organization [facility] Address [address] [place] [address] Care Team Providers Care Sand Wheeler Name Role Phone Kyra Perera Primary Care Provider [phone] Angel Hollins MD Unavailable Petra Dorado Unavailable [phone] Angel Hollins MD Unavailable Transitional Care Management Status:Enrolled (Active) Start date:09/06/2023 Enrollment date:09/06/2023 Continued Care and Services Coordination
--- OUTSIDE RECORDS SUMMARY | 2023-09-19 04:56 | XMS_ITS | Encounter Summary ---
Author Organization [facility] Address [address] [place] [address] Care Team Providers Care Historian Research Assistant Name Role Phone Kyra Perera Primary Care Provider [phone] Angel Hollins MD Unavailable Petra Dorado Unavailable [phone] Angel Hollins MD Unavailable Reason for Visit * Reason Onset Date Comments Referral 07/19/2023 Encounter Details Date Type Department Care Team (Late st Contact Info) Description 07/19/2023 [facility] Neurology Clinics - [address], [address] [place] [address] None Referral Social History Tobacco Use Types Packs/Day Years Used Date Smoking Tobacco: Never Assessed Adolescent Education Answer Date Record ed Getting School Help Needed Not on file 12/25 Sex and Gender Information Value Date Recorded Sex Assigned at Not on file Gender Identity Not on file Sexual Orientation Not on file documented as of this encounter Miscellaneous Notes * Telephone Encounter - Shantel Garcia - 07/19/2023 11:08 AM CDT M [facility] Call Center Phone Message May a detailed message be left on voicemail: yes Reason for Call: Other: [facility] is calling from [facility] to schedule stroke follow up. Janay unable to schedule due to no specific instructions to schedule. Please contact patients daughter arpan to schedule. Action Taken: Message routed to: Other: [facility] Travel Screening: Not Applicable documented in this encounter Plan of Treatment Upcoming Encounters Date Type Department Care Team (Late st Contact Info) Description 09/19/2023 2:15 PM CDT Therapy Visit [address] [phone] Ibeth Ellison MD [address] [place] [address] [phone] Marquita Trivedi, PT 09/19/2023 3:00 PM CDT Therapy Visit [address] [phone] Ibeth Ellison MD [address] [place] [address] [phone] Gabriella Bailey, OTR [address] [address] 09/21/2023 2:15 PM CDT Therapy Visit [address] [phone] Ibeth Ellison MD [address] [place] [address] [phone] Marquita Trivedi, PT 09/21/2023 3:45 PM CDT Therapy Visit [address] [phone] Ibeth Ellison MD [address] [place] [address] [phone] Dylan Mccann, OT 09/26/2023 9:45 AM CDT Therapy Visit M [address] [phone] Ibeth Ellison MD [address] [place] [address] [phone] Maura Javier, PT [address] [id number] 09/26/2023 11:00 AM CDT Therapy Visit M [address] [phone] Ibeth Ellison MD [address] [place] [address] [phone] Gabriella Bailey, OTR [address] [address] 09/28/2023 10:30 AM CDT Therapy Visit M [address] [phone] Ibeth Ellison MD [address] [place] [address] [phone] Maura Javier, PT [address] [address] 09/28/2023 11:30 AM CDT Therapy Visit M [address] [phone] Ibeth Ellison MD [address] [place] [address] [phone] Dylan Mccann, OT 10/03/2023 9:30 AM CDT Therapy Visit M [address] [phone] Ibeth Ellison MD [address] [place] [address] [phone] Gabriella Bailey, OTR MILE [address] [address] 10/03/2023 10:30 AM CDT Therapy Visit [address] [phone] Ibeth Ellison MD [address] [place] [address] [phone] Marquita Trivedi, PT 10/05/2023 9:45 AM CDT Therapy Visit [address] [phone] Ibeth Ellison MD [address] [place] [address] [phone] Maura Javier Ap, PT [address] [address] 10/05/2023 10:45 AM CDT Therapy Visit [address] [phone] Ibeth Ellison MD [address] [place] [address] [phone] Dylan Mccann, OT 10/10/2023 9:30 AM CDT Therapy Visit [address] [phone] Ibeth Ellison MD [address] [place] [address] [phone] Gabriella Bailey, OTR FV [address] [address] 10/10/2023 10:30 AM CDT Therapy Visit [address] [phone] Ibeth Ellison MD [address] [place] [address] [phone] Marquita Trivedi, PT 10/12/2023 9:45 AM CDT Therapy Visit [address] [phone] Ibeth Ellison MD [address] [place] [address] [phone] Maura Javier Ap, PT [address] [phone] 10/12/2023 10:45 AM CDT Therapy Visit [address] [phone] Ibeth Ellison MD [address] [place] [address] [phone] Dylan Mccann, OT 10/17/2023 9:30 AM CDT Therapy Visit [address] [phone] Ibeth Ellison MD [address] [place] [address] [phone] Gabriella Bailey, OTR FV [address] [address] 10/17/2023 10:30 AM CDT Therapy Visit M [address] [phone] Ibeth Ellison MD [address] [place] [address] [phone] Marquita Trivedi, PT 10/19/2023 10:15 AM CDT Therapy Visit [address] [phone] Ibeth Ellison MD [address] [place] [phone] Annamaria Dennison [address] [address] 10/19/2023 11:15 AM CDT Therapy Visit [address] [phone] Ibeth Ellison MD [address] [place] [address] [phone] Marquita Trivedi, PT 10/24/2023 12:15 PM CDT Therapy Visit [address] [phone] Ibeth Ellison MD [address] [place] [address] [phone] Maura Javier Ap, PT [address] [phone] 10/26/2023 11:30 AM CDT Therapy Visit [address] [phone] Ibeth Ellison MD [address] [place] [phone] Dylan Mccann, OT 10/26/2023 12:15 PM CDT Therapy Visit [address] [phone] Ibeth Ellison MD [address] [place] [address] [phone] Maura Javier Ap, PT [address] 138095 10/31/2023 10:15 AM CDT Therapy Visit [address] [phone] Ibeth Ellison MD [address] [place] [address] [phone] Gabriella Bailey, OTR [address] [address] 10/31/2023 11:15 AM CDT Therapy Visit [address] [phone] Ibeth Ellison MD [address] [place] [address] [phone] Marquita Trivedi, PT 11/02/2023 10:00 AM CDT Therapy Visit [address] [phone] Ibeth Ellison MD [address] [place] [address] [phone] Dylan Mccann, OT 11/02/2023 11:15 AM CDT Therapy Visit [address] [place] [phone] Ibeth Ellison MD [address] [place] [address] [phone] Marquita Trivedi, PT 11/07/2023 10:30 AM CDT Therapy Visit [address] [phone] Ibeth Ellison MD [address] [place] [address] [phone] Marquita Trivedi, PT 11/09/2023 10:30 AM CDT Therapy Visit [address] [phone] Ibeth Ellison MD [address] [place] [address] [phone] Marquita Trivedi, PT 11/14/2023 12:15 PM CDT Therapy Visit [address] [phone] Ibeth Ellison MD [address] [place] [address] [phone] Maura Javier Ap, PT [address] [phone] 11/16/2023 10:30 AM CDT Therapy Visit [address] [phone] Ibeth Ellison MD [address] [place] [address] [phone] Marquita Trivedi, PT documented as of this encounter Visit Diagnoses Not on filedocumented in this encounter Care Teams Historian Research Assistant Relationship Specialty Start Date End Date Kyra Perera [address] [place] [address] PCP - General Physician Receivable Manager 03/31/22 Angel Hollins MD [address] [address] Neurology 07/20/23 Petra Dorado PA [address] [place], [place] [phone] Physician Receivable Manager Physical Medicine and Rehabilitation 07/20/23 Angel Hollins MD [address] [address] Assigned Neuroscience Provider 08/03/23 documented as of this encounter
--- OUTSIDE RECORDS SUMMARY | 2023-09-19 04:57 | XMS_ITS | Clinical Summary ---
Author Organization [facility] Address [place], [place] [address] Care Team Providers Care Door Builder Name Role Phone Kyra Perera Primary Care Provider Genaro Leonard MD Unavailable Janay Nunez MD Unavailable [phone] Carolyn Pisano Unavailable Keo Escobar MD Unavailable [phone] Allergies Active Allergy Reactions Criticality Noted Date [...] 81 mg enteric coated tablet Daily 0 7 Active meclizine (ANTIVERT) 25 mg tabletIndications:V ertigo Take 1 tablet by mouth 3 times daily if needed. 30 tablet 1 9 Active ondansetron (ZOFRAN ODT) 4 mg disintegrating tabletIndications:N ausea DISSOLVE 1 TABLET ON TONGUE EVERY 6 HOURS NEEDED FOR VOMITING 30 Tablet 2 1 Active cholecalciferol (Vitamin D-3) 2,000 unit capsuleIndications: Vitamin D deficiency Take 2 Capsules (4,000 units) by mouth once daily. 0 2 Active famotidine (Pepcid AC) 10 mg tabletIndications:M ast cell activation syndrome (HC) Take 1 Tablet (10 mg) by mouth once daily. 3 Active furosemide (LASIX) 20 mg tabletIndications:H ypertension, unspecified type every other morning. 45 Tablet 3 3 Active nitroglycerin (NITROSTAT) 0.4 mg sublingual tabletIndications:C hest pain in adult Place 1 Tablet (0.4 mg) under the tongue every 5 minutes if needed for Chest Pain. Patient tolerated in the past. 25 Tablet 5 3 Active fluticasone (50 mcg per actuation) nasal solution (FLONASE)Indication s:Acute non-recurrent maxillary sinusitis INHALE 1-2 SPRAYS IN EACH NOSTRIL BY INTRANASAL ROUTE ONCE DAILY. 48 g 3 3 Active diazePAM (VALIUM) 5 mg tabletIndications:A nxiety state TAKE 1/2-1 TABLETS BY MOUTH EVERY 6 HOURS NEEDED FOR ANXIETY. 20 Tablet 4 Active metoprolol tartrate (LOPRESSOR) 25 mg tabletIndications:C hest pain in adult Take 0.25 Tablets (6.25 mg) by mouth two times daily. 30 Tablet 3 4 Active Additional Information Patient taking differently: 12.5 mgOral BID, Reported on 09/08/2023 telmisartan (MICARDIS) 20 mg tabletIndications:H ypertension, unspecified type Take 1/2 tablet in the morning and 1 tablet in the evening 45 Tablet 1 4 Active Additional Information Patient taking differently: 15 mg Oral BID, (No instructions reported), Reported on 07/24/2023 ALPRAZolam (XANAX) 0.25 mg tabletIndications:A nxiety state TAKE ONE-HALF TABLET BY MOUTH THREE TIMES DAILY NEEDED 60 Tablet 5 4 Active evolocumab (Repatha SureClick) 140 mg/mL subcutaneous pen injectorIndications :Cerebrovascular accident (CVA), unspecified mechanism (HC),Lipid disorder Inject 1 mL (140 mg) subcutaneous every 2 weeks. Inject into abdomen, thigh, or upper arm; rotate injection sites. 6 mL 1 4 Active alirocumab (Praluent Pen) 75 mg/mL pnijIndications:Cer ebrovascular accident (CVA), unspecified mechanism (HC),Lipid disorder Inject subcutaneous. Inject 75 mg subcutaneous every 2 weeks. 6 mL 3 4 Active telmisartan (MICARDIS) 20 mg tabletIndications:C erebrovascular accident (CVA), unspecified mechanism (HC),Hypertension, unspecified type Take 1 tab twice daily. 180 Tablet 3 4 Active sucralfate (CARAFATE) 1 gram tablet 4 Active lidocaine 4 % topical patch Apply 1 Patch on dry, clean, hairless skin once daily. 4 Active telmisartan (MICARDIS) 20 mg tabletIndications:C hest pain in adult Take 0.5 Tablets (10 mg) by mouth once daily. 45 Tablet 3 4 09/10/19 24 Discontinue d(Duplicate therapy (E-cancel not sent)) telmisartan (MICARDIS) 40 mg tabletIndications:H ypertension, unspecified type,Cerebrovascula r accident (CVA), unspecified mechanism (HC) Take 1 Tablet (40 mg) by mouth once daily. 90 Tablet 3 4 09/10/19 24 Discontinue d(Duplicate therapy (E-cancel not sent)) pravastatin (PRAVACHOL) 10 mg tabletIndications:C erebrovascular accident (CVA), unspecified mechanism (HC) Take 1 Tablet (10 mg) by mouth at bedtime. 90 Tablet 3 4 09/10/19 24 Discontinue d(*Patient states no longer taking) sucralfate (CARAFATE) 1 gram tabletIndications:S tomach pain Take 1 Tablet (1 g) by mouth four times daily before meals and at bedtime. 20 Tablet 4 09/10/19 24 Discontinue d(*Patient states no longer taking) Active Problems Problem Noted Date Diagnosed Date Exudative age-related macula r degeneration, unspecified laterality, unspecified stage 07/24/2023 Cardiomyopathy, unspecified type 03/18/2022 Paroxysmal SVT (supraventricular [...] Anxiety state, unspecified 05/05/2011 Lipid disorder 10/28/2010 Sphincter of Oddi dysfunction 08/19/2010 Esophageal reflux 03/22/2010 Overview: EGD 03/2009 Reactive gastropathy Degeneration of cervical intervertebral disc Raynaud's syndrome 01/02/2007 Hypertension Resolved Problems Problem Noted Date Diagnosed Date Resolved Date Stage 3 chronic kidney disease 01/19/2021 04/07/2021 Cardiomyopathy 10/11/2019 04/07/2021 Closed Head Injury 05/21/2008 06/16/2008 09/08/2023 Overview: Fell down stairs, didn't miss work, MRI normal except for small vessel white matter changes, now with headaches and fatigue (06/15/2008) Plantar fascial fibromatosis 02/09/2007 09/08/2023 Rosacea 01/02/2007 01/24/2007 Unspecified essential hypertension 09/08/2023 Encounters Date Type Department Care Team Description 09/08/2023 12:45 PM CDT Office Visit [facility] [address] [place], [place] [id number] Beatrice Noguera MD Follow Up ([facility] ER/ right sided abdominal pain) 09/08/2023 Travel 08/30/2023 Telephone [facility] [address] [place] [address] Kyra Perera PA Concerns (MEDICATION MANAGEMENT, PAIN) 08/30/2023 Telephone [facility] [address] [place] [address] Andrea Devi MD Appointment Request 08/26/2023 Telephone [facility] [address] [place] [address] Kyra Peerra PA Prior Authorization (alirocumab (Praluent Pen) 75 mg/mL pnij (APPROVED 08/12/23 UNTIL FURTHER NOTICE)) 08/25/2023 Telephone [facility] [address] [place] [address] Kyra Perera PA Form 08/24/2023 1:40 PM CDT Office Visit [facility] [address] [place] [address] Felipa Triplett PA Blood In Stool 08/24/2023 Travel 08/24/2023 Telephone [facility] [address] [place] [address] Kyra Perera PA Questions (Appt Req ); Blood In Stool 08/24/2023 Nurse Triage [facility] [address] [place] [address] Kyra Perera PA Blood In Stool 08/23/2023 Telephone [facility] [address] [place] [address] Kyra Perera PA Health Maintenance Update 08/21/2023 Telephone [facility] [address] [place] [address] Kyra Perera PA Prior Authorization (telmisartan (MICARDIS) 20 mg tablet - QTY LIMITS - APPEAL APPROVED 08/22/23-until further notice) 08/18/2023 12:30 PM CDT Ancillary Procedure [facility] [address] [facility] [address] 08/18/2023 12:15 PM CDT Ancillary Procedure [facility] [address] [facility] [address] 08/18/2023 11:30 AM CDT Office Visit [facility] [address] [place] [address] Felipa Triplett PA Arm Pain/problem 08/18/2023 Travel 08/18/2023 Telephone [facility] [address] [place] [address] Kyra Perera PA Appointment Request 08/15/2023 Orders Only [facility] Scanner 1 scan: (1-Ord) [facility] [place] 08/11/2023 Telephone [facility] [address] [place] [address] Kyra Perera PA Prior Authorization (evolocumab (Repatha SureClick) 140 mg/mL subcutaneous pen injector (DENIED)) 08/10/2023 8:45 AM CDT Orders Only [facility] [address] [place] [address] Lab 08/10/2023 Travel 08/08/2023 Telephone [facility] [address] [place] [address] Kyra Perera PA Medication Management (telmisartan (MICARDIS) 20 mg tablet) 08/08/[address] [address] Janay Nunez MD Appointment Request (F/U FROM STROKE 06/29/2023 - WENT TO HOSPITAL 06/29/ WENT TO ACCUTE REHAB FOR 2 WEEKS / CONVERSATION ABOUT MEDS) 08/02/[address] [address] Janay Nunez MD Appointment Request 07/25/2023 Telephone [facility] [address] [place] [phone] Deidre Bocanegra NP Referral 07/25/2023 Medical Messaging [facility] [address] [place] [address] Kyra Perera PA follow up from todays visit 07/24/2023 2:00 PM CDT Office Visit [facility] [address] [place] [address] Kyra Perera PA Hospital F/U (Post hospital / stroke) 07/24/2023 Travel 07/19/2023 Telephone [facility] [address] [place] [address] Kyra Perera PA Prior Authorization (telmisartan (MICARDIS) 20 mg tablet - PA NOT NEEDED ) 07/13/2023 Telephone [facility] [address] [facility] [address] [place] [phone] Amandeep Benz MD Appointment Request 07/10/2023 Telephone [facility] [address] [place] [address] Kyra Perera PA Medication Management (Hydroxizine) 07/07/2023 Orders Only [facility] [address] [place] [address] Nazanin Kennedy 1 scan: (1-Ord) Final Ziio Report 07/04/2023 Telephone [facility] [address] [place] [address] Kyra Perera PA Medication Management (CHOLESTEROL MEDICATION/ MED THAT WAS PRESCRIBED) 07/04/2023 Travel 07/01/2023 Orders Only [facility] Scanner 1 scan: (1-Ord) [facility], CT HEAD/BRAIN WO CON, 07/01/2023 07/01/2023 Office Visit [facility] [address] [place] [address] Linn Wagner MD 07/01/2023 Telephone [facility] [address] [facility] [address] Kyra Perera PA Appointment Request 06/30/2023 Orders Only [facility] Scanner 1 scan: (1-Ord) [facility] HEAD W/O, 06/30/2023 06/30/2023 Orders Only [facility] Scanner 1 scan: (1-Ord) [facility], CT ANGIO NECK, 06/30/2023 06/30/2023 Orders Only [facility] Scanner 1 scan: (1-Ord) [facility], CT HEAD/BRAIN W/O CONTRAST, 06/30/2023 06/30/2023 Office Visit [address] [address] Linn Wagner MD 06/28/[address] [address] Janay Nunez MD Has not rec'd needed letter via [employer] (Unable to see / pull up Letter on Ondango) 06/26/2023 9:00 AM CDT Procedure Only [facility] [address] [place] [place] [address] Marizol Walton L Ac Acupuncture 06/26/2023 Travel 06/24/[address] [address] Janay Nunez MD Letter (Reimbursement for flight) 06/23/2023 11:30 AM CDT Office Visit [facility] [address] [place] [address] Janay Nunez MD Follow Up (3 month; PVC; Intermittent CP) 06/23/2023 9:29 AM CDT - 06/23/2023 11:59 PM CDT Hospital Encounter [facility] [address] [place] [address] Tito García MD Iverson, Ryan, PT 06/23/2023 Orders Only [facility] [address] [place] [address] Janay Nunez MD <No scans attached> 06/23/2023 Travel from Last 3 Months Immunizations Name Administration Dates Next Due COVID-19 vaccine (Amna-J&J) PF, MDV 1 Td, Preservative Free (age >= 7 [...] 6 Hyperlipidemia Brother 7 Other Father d54 [place], liver e tom Cancer-breast Maternal Aunt Other [...] Answer Date Recorded PHQ-2 TOTAL SCORE 0 09/08/2023 Social Connections Answer Date Recorded Frequency of [...] Sign Reading Time Taken Comments Blood Pressure 160/80 09/08/2023 1:02 PM CDT Pulse 76 09/08/2023 12:59 PM CDT Temperature 36.4 ??C (97.6 ??F) 08/18/2023 11:41 AM C DT Respiratory Rate 18 06/23/2023 11:23 AM CDT Oxygen Saturation 97% 08/24/2023 1:45 PM CDT Inhaled Oxygen Concentration - - Weight 63 kg (139 lb) 09/08/2023 12:59 PM CDT Height 154.9 cm (5' 1) 09/08/2023 12:59 PM CDT Body Mass Index 26.26 09/08/2023 12:59 PM CDT Plan of Treatment Upcoming Encounters Date Type Department Care Team (Late st Contact Info) Description 09/20/2023 1:00 PM CDT Office Visit [facility] [address] [place] [address] Janay Nunez MD [address] [facility] [address] [place] [address] 09/22/2023 10:30 AM CDT Office Visit [facility] [address] [place] [address] Kyra Perera PA [address] [place] [address] Health Maintenance Due Date Last Done Comments Pneumococcal series for age 65+ (1 of 2 - PCV) 1956 Zoster (shingles) series for age 50+ (1 of 2) 2000 DEXA/DXA scan for age 65+ 06/21/2015 COVID-19 vaccine series ( season) 2022 03/16/2021, 05/23/2020 Mammogram for age 45-75 12/08/2022 12/09/19 22, 12/31/2020, 05/24/2019, Additional history exists Medicare Wellness for age 65+ 01/22/2023, 01/19/2021, 01/10/2020, Additional history exists Influenza for age 65+ 11/12/2023 BMI (ht and wt on same day) for age 18+ 09/07/2024 09/08/2023, 05/25/2023, 12/26/2022, Additional history exists Depression screening for age 12+ 09/07/2024 09/08/2023, 01/21/2022, 01/19/2021, Additional history exists Tetanus booster 11/09/2027 11/08/2017, 05/30/2007 Lipids for age 45-75 08/09/2028 08/10/2023, 04/03/2023, 12/30/2022, Additional history exists Colonoscopy through age 75 10/10/203210/10, 10/10/2022, 10/10/2022, Additional history exists Tdap Completed 05/30/2007 Hepatitis C screening for ag e 18-79 Completed 02/09/2016 Procedures Procedure Name Priority Date/Time Associated Diagnosis Comments HEMOGLOBIN Routine 08/24/2023 2:10 PM CDT Hematochezia XR HAND 3 VIEWS RIGHT Routine 08/18/2023 12:14 PM CDT Right arm pain XR WRIST 3 VIEWS RIGHT Routine 12:14 PM CDT Right arm pain SCAN-EYE EXAM 08/15/2023 12:00 AM CDT LIPID PANEL W REFLEX MEASURED LDL Routine 08/10/2023 8:50 AM CDT Cerebrovascular accident (CVA), unspecified mechanism (HC) UA W/ SEDIMENT EXAM REFLEXED PER CRITERIA Routine 07/24/2023 2:48 PM CDT Urinary frequency SCAN-CT INTERPRETATION 12:00 AM CDT SCAN-MRI INTERPRETATION 06/30/2023 12:00 AM CDT SCAN-ANGIOGRAM 06/30/2023 12:00 AM CDT SCAN-CT INTERPRETATION 12:00 AM CDT ACUPUNCTURE PLAN OF CARE Routine 06/26/2023 9:01 AM CDT Chronic neck pain EXTENDED HOLTER Routine 06/23/2023 Palpitations COLONOSCOPY SCREENING Routine 10/10/2022 12:00 AM CDT Screen for colon cancer XR MAMMO ALEENA BILAT DIAG Routine 12/08/2021 2:57 PM CDT Breast pain in female ANTI HCV Routine 02/09/2016 10:00 AM DIRECTOR OF SOCIAL MEDIA MARKETING Need for hepatitis C screening test from Last 3 Months or Most Recently Relevant to Health Maintenance Results * HEMOGLOBIN (08/24/2023 2:10 PM CDT) HEMOGLOBIN 14.7 12.0 - 16.0 g/dL 08/24/2023 2:19 PM CDT [facility] MCV 87 80 - 100 fL 08/24/2023 2:19 PM CDT [facility] Blood BLOOD SPECIMEN / Unknown Venipuncture / Unknown 08/24/2023 2:10 PM CDT 08/24/2023 2:15 PM CDT Felipa ANTHONY HEMATOLOGY [facility] [address] [place] [address], * XR HAND 3 VIEWS RIGHT (08/18/2023 12:14 PM CDT) Anatomical Region Laterality Modality HANDS, HAND R Computed Radiogr aphy 08/20/2023 11:0 1 PM CDT Narrative 08/20/2023 11:01 PM CDT For Patients: ??As a result of the Century Cures Act, medical imaging exams and procedure reports are released immediately into your electronic medical record. ??You may view this report before your referring provider. ??If you have questions, please contact your health care provider. Indication: Pain Technique: Right hand three views Comparison: None Findings: Narrowing and spurring at the distal interphalangeal joints noted particularly at the index finger and long finger. No erosions. Mild degenerative changes at the thumb interphalangeal joint and 1st carpometacarpal joint. Impression: Multifocal degenerative joint disease. Dictated by Iván Luu MD @ 08/20/2023 11:01:47 PM (Electronically Signed) Procedure Note Iván Luu MD - 08/20/2023 For Patients: As a result of the Cures Act, medical imagingexams and procedure reports are released immediately into your electronicmedical record. You may view this report before your referring provider.If you have questions, please contact your health care provider. Indication: Pain Technique: Right hand three views Comparison: None Findings: Narrowing and spurring at the distal interphalangeal joints notedparticularly at the index finger and long finger. No erosions. Milddegenerative changes at the thumb interphalangeal joint and 1stcarpometacarpal joint. Impression: Multifocal degenerative joint disease. Dictated by Iván Luu MD @ 08/20/2023 11:01:47 PM (Electronically Signed) Felipa ANTHONY GENERAL IMAGIN G * XR WRIST 3 VIEWS RIGHT (08/18/2023 12:14 PM CDT) Anatomical Region Laterality Modality WRISTS, WRIST R Computed Radiogr aphy 08/20/2023 11:0 0 PM CDT Narrative 08/20/2023 11:00 PM CDT For Patients: ??As a result of the Cures Act, medical imaging exams and procedure reports are released immediately into your electronic medical record. ??You may view this report before your referring provider. ??If you have questions, please contact your health care provider. Indication: Pain Technique: Three views right wrist Comparison: None Findings: Osteopenia. No fracture. Mild narrowing and spurring at the 1st carpometacarpal joint. No erosions. Impression: Mild degenerative joint disease. Dictated by Iván Luu MD @ 08/20/2023 11:00:43 PM (Electronically Signed) Procedure Note Iván Luu MD - 08/20/2023 For Patients: As a result of the Century Cures Act, medical imagingexams and procedure reports are released immediately into your electronicmedical record. You may view this report before your referring provider.If you have questions, please contact your health care provider. Indication: Pain Technique: Three views right wrist Comparison: None Findings: Osteopenia. No fracture. Mild narrowing and spurring at the 1stcarpometacarpal joint. No erosions. Impression: Mild degenerative joint disease. Dictated by Iván Luu MD @ 08/20/2023 11:00:43 PM (Electronically Signed) Felipa ANTHONY GENERAL IMAGIN G * SCAN-EYE EXAM (08/15/2023 12:00 AM CDT) Scanner OTHER * (ABNORMAL) LIPID PANEL W REFLEX MEASURED LDL (08/10/2023 8:50 AM CDT) CHOLESTEROL,TOTAL 245(H) 100 - 199 mg/dL 08/10/2023 4:29 PM CDT [facility] Comment: Cholesterol, Total Reference Ranges Desirable <200 mg/dL Borderline 200-239 mg/dL High >=240 mg/dL TRIGLYCERIDES 234(H) <150 mg/dL 08/10/2023 4:29 PM CDT [facility] HDL CHOLESTEROL 45 >40 mg/dL 4:29 PM CDT [facility] [employer] [facility] [facility] NON-HDL CHOLESTEROL 200(H) <145 mg/dl 08/10/2023 4:29 PM CDT [facility] CHOL/HDL RATIO 5.44(H) <4.50 08/10/2023 4:29 PM CDT [facility] LDL CHOLESTEROL 153(H) <=130 mg/dL 08/10/2023 4:29 PM CDT [facility] [employer]-[facility] VLDL CHOLESTEROL 47(H) <=30 mg/dL 08/10/2023 4:29 PM CDT [facility] PROVIDER ORDERED STATUS RANDOM 08/10/2023 4:29 PM CDT [facility] Blood BLOOD SPECIMEN / Unknown Venipuncture / Unknown 08/10/2023 8:50 AM CDT 08/10/2023 8:55 AM CDT Kyra ANTHONY CHEMISTRY [facility] [address] [place] [address], [place] * (ABNORMAL) UA W/ SEDIMENT EXAM REFLEXED PER CRITERIA (07/24/2023 2:48 PM CDT) COLOR Yellow Yellow Color 07/24/2023 3:09 PM CDT [facility] CLARITY Clear Clear Clarity 07/24/2023 3:09 PM CDT [facility] SPECIFIC GRAVITY,URINE >=1.030(A) 1.010, 1.015, 1.020, 1.025 07/24/2023 3:09 PM CDT [facility] PH,URINE 5.5 6.0, 7.0, 8.0, 5.5, 6.5, 7.5, 8.5 07/24/2023 3:09 PM CDT [facility] UROBILINOGEN, QUALITATIVE Normal Normal EU/dl 07/24/2023 3:09 PM CDT [facility] PROTEIN, URINE Negative Negative mg/dL 07/24/2023 3:09 PM CDT [facility] GLUCOSE, URINE Negative Negative mg/dL 07/24/2023 3:09 PM CDT [facility] KETONES,URINE Negative Negative mg/dL 07/24/2023 3:09 PM CDT [facility] BILIRUBIN,URI NE Negative Negative 07/24/2023 3:09 PM CDT [facility] OCCULT BLOOD,URINE Negative Negative 07/24/2023 3:09 PM CDT [facility] NITRITE Negative Negative 07/24/2023 3:09 PM CDT [facility] LEUKOCYTE ESTERASE Negative Negative 07/24/2023 3:09 PM CDT [facility] Urine URINE SPECIMEN / Unknown Non-Blood / Unknown 07/24/2023 2:48 PM CDT 07/24/2023 3:06 PM CDT Kyra ANTHONY URINE [facility] [address] [place] [address], * SCAN-CT INTERPRETATION (07/01/2023 12:00 AM CDT) Only the most recent of2 resultswithin the time period is included. Anatomical Region Laterality Modality Other Scanner OTHER * SCAN-ANGIOGRAM (06/30/2023 12:00 AM CDT) Anatomical Region Laterality Modality Other Scanner OTHER * SCAN-MRI INTERPRETATION (06/30/2023 12:00 AM CDT) Anatomical Region Laterality Modality Other Scanner OTHER * Zio XT (06/23/2023) Janay Nunez MD CARDIAC SERVICES ORD * COLONOSCOPY SCREENING (10/10/2022 12:00 AM CDT) [...] Dictated by: Iván Luu MD @12/08/2021 3:39:51 PM/bhe PATIENTS: You will also receive a letter [...] mass. Gabriella ANTHONY MAMMO * ANTI HCV [98890.2] (02/09/2016 10:00 AM DIRECTOR OF SOCIAL MEDIA MARKETING) HEPATITIS C ANTIBODY Non-Reacti ve Non-Reacti ve 02/09/2016 5:42 PM DIRECTOR OF SOCIAL MEDIA MARKETING [facility] Blood BLOOD SPECIMEN / Unknown Venipuncture / Unknown 02/09/2016 10:00 AM DIRECTOR OF SOCIAL MEDIA MARKETING 02/09/2016 10:01 AM DIRECTOR OF SOCIAL MEDIA MARKETING Narrative [facility] - 02/09/2016 5:42 PM DIRECTOR OF SOCIAL MEDIA MARKETING Antibodies to HCV not detected; does not exclude the possibility of exposure to HCV. Kyra ANTHONY SEND [facility]S [facility] [address] [place] [address], from Last 3 Months or Most Recently [...] 4:20 AM 03/22/2010 1:40 PM Care Teams Door Builder Relationship Specialty Start Date End Date Kyra Perera PA [address] [place] [address] PCP - General 06/16/08 Genaro Leonard MD [address] [place] [address] Cardiology - Electrophysiology 05/30/22 Janay Nunez MD [address] [facility] [place] [address] Cardiology - Interventional 09/21/22 Carolyn Pisano PA [address] [facility] [place] [address] Physician Engineering Specialist 09/21/22 Keo Escobar MD [address] [place] [address] [place] [address] Sports Medicine - Family Medicine 09/21/22
--- OUTSIDE RECORDS SUMMARY | 2023-09-19 04:57 | XMS_ITS | Clinical Summary ---
Author Organization formerly [facility] Address [address] [place] [address] Care Team Providers Care Tax Services Manager Name Role Phone Bettye Davis MD Primary [...] for each transition of care or referral. All-Scrap Allergies Active Allergy Reactions Criticality Noted Date [...] 2022 05/23/2020 Mammogram 12/08/2022 12/08/2021, 01/05/2012 Influenza (#1) 2023 HepA Aged Out No longer eligi [...] Recently Relevant to Health Maintenance Care Teams Tax Services Manager Relationship Specialty Start Date End Date Bettye Davis MD [address] [place] [address] PCP - General 06/13/10
[2023-09-19 05:04] VITALS: BP 194/105; PULSE 67; RESP 16; O2SAT 97
== END 2023-09-19 05:53 | disposition home or self-care (01) ==
PROVIDERS: Emergency Provider Family Medicine; PCP Physician Assistant Medical
DX: I49.3 Ventricular premature depolarization (principal); I10 Essential (primary) hypertension; M54.6 Pain in thoracic spine
CPT/HCPCS: 36415; 71046; 80053; 83690; 84484; 85025; 86140; 93005; 99284; 99285; A9270

== ENCOUNTER 2024-02-15 09:15 | Outpatient (CLI) | payer MEDICARE, BC, SELFPAY ==
--- NOTE | 2024-02-15 09:15 | CRLHL7_ITS ---
For Patients: As a result of the Cures Act, medical imaging exams and procedure reports are released immediately into your electronic medical record. You may view this report before your referring provider. If you have questions, please contact your health care provider. INDICATION: Neck pain. COMPARISON: None. TECHNIQUE: Sagittal T1, T2, and STIR sequences. Axial T2/gradient sequences. FINDINGS: Straightening of the normal cervical lordosis. Normal vertebral body facet alignment. No fractures. No vertebral body loss of height. No spondylosis. No evidence injury. No suspicious osseous lesions. Cervical spondylosis with multilevel disc degeneration and facet arthropathy. There is marrow edema of the articular processes of the left C3-4 facet joint which may be secondary to stress reaction or inflammation from facet arthritis. C1-2: No spinal canal narrowing. C2-3: No spinal canal neural foraminal narrowing. C3-4: No narrowing of the spinal canal. Uncovertebral facet joint hypertrophy results in mild narrowing of left neural foramen. No narrowing of the right neural foramen. C4-5: No spinal canal or neural foraminal narrowing. C5-6: Disc degeneration loss of disc height. Broad-based disc osteophyte complex. Effacement of the ventral thecal sac. Mild to moderate narrowing of spinal canal. Mild right and moderate left neural foraminal narrowing. C6-7: No spinal canal or neural foraminal narrowing. C7-T1: No spinal canal or neural foraminal narrowing. IMPRESSION: 1. Normal alignment. No fractures. 2. Cervical spondylosis. Marrow edema of the articular processes of the left C3-4 facet joint which may be secondary to stress reaction or inflammation. 3. A C5-6, broad-based disc osteophyte complex. Guwr-dx-trbuagdy narrowing of the spinal canal. Mild right and moderate left neural foraminal narrowing. Dictated by Main Galvan MD @ 02/17/2024 12:29:25 AM (Electronically Signed)
== END 2024-02-15 09:16 | disposition home or self-care (01) ==
LOC: MRI 09:17
PROVIDERS: PCP Physician Assistant Medical; Visit Provider Family Medicine
DX: M54.2 Cervicalgia (principal); M47.892 Other spondylosis, cervical region; M50.30 Other cervical disc degeneration, unspecified cervical region; M54.12 Radiculopathy, cervical region
CPT/HCPCS: 72141

== ENCOUNTER 2024-04-08 00:53 | Emergency (ER) | payer MEDICARE, BC, SELFPAY ==
--- OUTSIDE RECORDS SUMMARY | 2024-04-08 00:56 | XMS_ITS | Clinical Summary ---
Author Organization [facility] Address [address] [place] [address] Care Team Providers Care Raw Stock Drier Tender Name Role Phone Bettye Davis MD Primary [...] for each transition of care or referral. Schematic Labs Allergies Active Allergy Reactions Criticality Noted Date [...] 06/21/2015 DTaP/Tdap/Td (2 - Tdap) 05/29/2017 05/30/2007 Mammogram 12/08/2022 12/08/2021, 01/05/2012 COVID-19 Vaccine (2 - 2023-2 5 season) 2023 05/23/2020 Influenza (#1) 2023 RSV (1 - 1-dose 75+ series) 2025 HepA Aged Out No longer eligi ble [...] age to complete this topic Care Teams Raw Stock Drier Tender Relationship Specialty Start Date End Date Bettye Davis MD [address] [place], [place] [address] PCP - General 06/13/10
--- OUTSIDE RECORDS SUMMARY | 2024-04-08 00:56 | XMS_ITS | Encounter Summary ---
Author Organization [place] Address [address] [place] [address] Care Team Providers Care Director Multiple Sclerosis Center Name Role Phone Kyra Perera Primary Care Provider [phone] Angel Hollins MD Unavailable Petra Dorado Unavailable [phone] Angel Hollins MD Unavailable Yves Ballard MD Unavailable + [phone] Reason for Visit * Reason Onset Date Comments Referral 07/19/2023 Encounter Details Date Type Department Care Team (Late st Contact Info) Description 07/19/2023 [facility] - [address], [address] [place] [address] None Referral Social History Tobacco Use Types Packs/Day Years Used Date Smoking Tobacco: Never Assessed Adolescent Education Answer Date Record ed Getting School Help Needed Not on file 12/25 Comments Unknown Sex and Gender Information Value Date Recorded Sex Assigned at Not on file 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 Janay unable to schedule due to no specific instructions to schedule. Please contact patients daughter fatemeh to schedule. Action Taken: Message routed to: Other: [facility] Travel Screening: Not Applicable documented in this encounter Plan of Treatment Not on file documented as of this encounter Visit Diagnoses Not on filedocumented in this encounter Care Teams Director Multiple Sclerosis Center Relationship Specialty Start Date End Date Kyra Perera [address] [place] [address] PCP - General Physician Service Center Representative 03/31/22 Angel Hollins MD [address] [id number] Neurology 07/20/23 Petra Dorado PA [address] [place], [place] [address] Physician Service Center Representative Physical Medicine and Rehabilitation 07/20/23 Angel Hollins MD [address] [place] [address] Assigned Neuroscience Provider 08/03/23 Yves Ballard MD [address] [place] [address] Assigned Heart and Vascular Provider 12/04/23 documented as of this encounter
--- OUTSIDE RECORDS SUMMARY | 2024-04-08 00:56 | XMS_ITS | Continuity of Care Document ---
Author Organization [facility] Address [address] [address] [place] [address] Phone Care Team Providers Care Counselor Manager Name Role Phone Link Jensen MAURICE Unavailable [...] - Active Procedures Procedure Date Ugi Endo; W/bx 1/mx Moderate Sedation, Initial 15 minutes Ju Init Hosp-da E&m Mod Severity 4 Ugi [...] Encounter [facility], [address] [address], [place], [id number], [place] tel:[phone] [facility] No Information 4 Ben Styles. [address], [id number], [place]. tel:[phone] Referring Provider: Kyra ANTHONY, [address] [place] [address], [address]. tel:[phone] Init Hosp-da E&m Mod Severity [facility], [address] [address], [place], [id number], [place] tel:[phone] [facility] No Information 4 Agustina Butcher. [address] [place] [address], [id number], [place]. tel:[phone] Referring Provider: Kyra ANTHONY, [address] [place] [address], [address]. tel:[phone] [facility], [address] [address], [place], [id number], [place] tel:[phone] [facility] No Information 1 No Information Referring Provider: Andrea Thomas, [address] [place] [address], [address]. tel:[phone] Init Hosp-da E&m Mod Severity [facility], [address] [address], [place], [id number], [place] tel:[phone] [facility] No Information 1 Bela Gatica. [address], [id number], [place]. tel:[phone] Referring Provider: Nazanin Allan MD [place], [address] [place] [address], [address]. tel:[phone] Offic Cons New/estab Mod-hi 60 [facility], [address] [address], [place], [id number], [place] tel:[phone] [facility] Abdominal Pain, UnspecifiedCo nstipation Unspecified [address]. [address] [facility], [address], [place], [place], [id number], [place]. tel:[phone] Referring Provider: Iván Sweet MD L, [address], [place], [address]. tel:[phone] [facility], [address] [address], [place], [place], [id number], [place] tel:[phone] [facility] No Information 5 No Information Offic Cons New/estab Mod- [facility], [address] [address], [place], [place], [id number], [place] tel:[phone] [facility] Irritable Bowel SyndromeRUQ pain 5 No Information Family History Family Member [...] type Covered green party ID Authoriza tion(s) [employer] [place] [employer] [id number] Social History Type Description Quantity Date Captured [...]
--- OUTSIDE RECORDS SUMMARY | 2024-04-08 00:56 | XMS_ITS | Continuity of Care Document ---
Author Organization [facility] Address [address] [place] [address] [address] [place] [address] Phone Care Team Providers Care Business Supervisor Name Role Phone Bernabe MAURICE, Clayton Unavailable Unavailable Advance Directives Directive Yes / No Effective Date File Name No Information Encounters Encounter Description Practice Location Reason(s) For Visit Diagnoses Date Provider Providers Copied on Encounter Z [facility], [address] [place], [place] [address], [place], [address], [place] tel:[phone] [facility] No Information Bernabe Arnold. [facility], [address] [place] [address] [address], [place], [place], [id number] , [place]. tel:[phone] Family History Family Member Type Diagnosis Age [...]
--- OUTSIDE RECORDS SUMMARY | 2024-04-08 00:56 | XMS_ITS | Clinical Summary ---
Author Organization [facility] [employer] [facility] Address [address] [address] Phone Care Team Providers Care Farm Loan Representative Name Role Phone Elsewhere, Pcp Primary Care [...] drink = 0.6 oz pur e alcohol) Comments No Sex and Gender Information Value Date Recorded Sex Assigned at Not on file Legal Sex Female 11:44 AM CDT Gender Identity Not on file Sexual Orientation Not on file Obstetrics History Last Filed Vital Signs Vital Sign Reading Time Taken Comments Blood Pressure 178/85 12/20/2014 1:30 PM CDT Pulse 68 12/20/2014 1:30 PM CDT Temperature 36.6 C (97.8 F) 12/20/2014 11:53 AM CDT Respiratory Rate 29 12/20/2014 1:30 PM CDT Oxygen Saturation 96% 12/20/2014 1:30 PM CDT Inhaled Oxygen Concentration - - Weight 56.7 kg (125 lb) 12/20/2014 11:53 AM CDT Height 157.5 cm (5' 2) 12/20/2014 11:53 AM CDT Body Mass Index 22.86 12/20/2014 11:53 AM CDT Plan of Treatment Not on file Insurance MEDICA CHOICE Care Teams Farm Loan Representative Relationship Specialty Start Date End Date Elsewhere, Pcp PCP - General 12/20/14
--- OUTSIDE RECORDS SUMMARY | 2024-04-08 00:56 | XMS_ITS | Encounter Summary ---
Author Organization [place] Address [address] [facility] [place] [address] Care Team Providers Care Camera Tuning Engineer Name Role Phone GwensofiKyra Arabella Primary Care Provider Angel Hollins MD Unavailable Petra Dorado Unavailable [phone] Angel Hollins MD Unavailable Yevs Ballard MD Unavailable + [phone] Reason for Visit * Reason Onset Date Comments Appointment 12/22/2023 Virtual - return vascular Encounter Details Date Type Department Care Team (Late st Contact Info) Description 12/22/2023 Telephone [facility] [place] 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 Attempted to schedule, but was unable. Please call back to further coordinate. Thank you! [facility] documented in this encounter Plan of Treatment Not on file documented as of this encounter Visit Diagnoses Not on filedocumented in this encounter Care Teams Camera Tuning Engineer Relationship Specialty Start Date End Date Trever Kyra Bell [address] [place] [address] PCP - General Physician Camera Tuning Engineer 03/31/22 Angel Hollins MD [address] [place], [place] [id number] Neurology 07/20/23 Petra Dorado PA [address] [place], [place] [address] Physician Camera Tuning Engineer Physical Medicine and Rehabilitation 07/20/23 Angel Hollins MD [address] [place], [place] [address] Assigned Neuroscience Provider 08/03/23 Yves Ballard MD [address] [facility] [place] [id number] Assigned Heart and Vascular Provider 12/04/23 documented as of this encounter
--- OUTSIDE RECORDS SUMMARY | 2024-04-08 00:56 | XMS_ITS | Clinical Summary ---
Author Organization [facility] Address [address] [place] [address] Care Team Providers Care Weight Reducing Technician Name Role Phone GwenKyra farah Arabella Primary Care Provider Angel Hollins MD Unavailable Petra Dorado Unavailable [phone] Angel Hollins MD Unavailable Yves Ballard MD Unavailable [phone] Allergies Active Allergy Reactions Criticality Noted Date Comments Amlodipine Palpitations Low 01/27/2024 Atorvastatin 10/28/2010 Other reaction(s): Myalgia Caused myalgias. Caused myalgias. Caused myalgias. Caused myalgias. Chlorthalidone Shortness Of Breath High 01/27/2024 Clonidine Shortness Of Breath High 01/27/2024 Diltiazem Anxiety Low 05/12/2011 Doxazosin Other (See Comments) 01/27/2024 Bleeding Gabapentin Shortness Of Breath High 11/09/2023 Hydralazine 05/12/2011 Other reaction(s): Tachycardia Hydrochlorothiazide 09/26/2007 ? asthma ? asthma Hydrocodone-Acetaminophen Nausea and Vomiting 1 05/01/2011 Isosorbide Nitrate Headache 01/27/2024 Labetalol Shortness Of Breath High 05/05/2011 Lactose 02/18/2009 Other reaction(s): Intolerance-Can't Take Flu-like symptoms Latex Other (See Comments) 06/15/2016 Lisinopril 11/30/2007 Other reaction(s): Chest Pain Lorazepam Other (See Comments) 03/26/2010 Pt reports depression Pt reports depression Losartan Shortness Of Breath High 12/01/2010 Noted dyspnea Pregabalin Shortness Of Breath High 11/09/2023 Methyldopa Rash Low 06/13/2011 Morphine Anaphylaxis High 05/22/2006 Olmesartan Dizziness 03/18/2022 vertigo Penicillins Swelling 05/22/2006 Other reaction(s): Angioedema, Angioedema Propafenone Shortness Of Breath High 11/09/2023 Propranolol Anxiety Low 01/27/2024 Rosuvastatin 10/28/2010 Other reaction(s): Myalgia Caused myalgias. Caused myalgias. Caused myalgias. Caused myalgias. Shellfish-Derived Products High 1 Other reaction(s): Angioedema Had severe pain and swelling after lobster Sulfa Antibiotics Hives High 05/22/2006 Verapamil Shortness Of Breath High 05/02/2011 Medications ALPRAZolam (XANAX) 0.25 MG tablet Take 0.5 tablets by mouth 3 times daily as needed for anxiety. Active nitroGLYcerin (NITROSTAT) 0.[address] 0.4 mg under the tongue every 5 minutes as needed for chest pain For chest pain place 1 tablet under the tongue every 5 minutes for 3 doses. If symptoms persist 5 minutes after 1st dose call 911. Active Vitamin D3 (VITAMIN D, CHOLECALCIFEROL ,) 25 mcg (1000 units) tablet Take 1 tablet by mouth daily. Active acetaminophen (TYLENOL) 325 MG tabletIndicatio ns:Right upper quadrant abdominal pain Take 2 tablets (650 mg) by mouth every 4 hours as needed for mild pain or other (and adjunct with moderate or severe pain or per patient request) 09/04/2023 Active aspirin 81 MG EC tabletIndicatio ns:Right upper quadrant abdominal pain Take 1 tablet (81 mg) by mouth daily 09/04/2023 Active ezetimibe (ZETIA) 10 MG tablet Take 5 mg by mouth every other day. 11/01/2023 Active famotidine (PEPCID) 20 MG tablet Take 20 mg by mouth daily as needed. Active furosemide (LASIX) 20 MG tablet Take 20 mg by mouth twice a week. Active metoprolol tartrate (LOPRESSOR) 25 MG tablet Take 12.5 mg by mouth 2 times daily. Active telmisartan (MICARDIS) 20 MG tablet Take 10 mg by mouth 2 times daily. Active Active Problems Problem Noted Date Diagnosed Date Anxiety 01/27/2024 Concussion without loss of consciousness 024 Hypertension 01/27/2024 Post concussion syndrome 01/27/2024 Superficial thrombophlebitis 01/27/2024 Facial droop 01/27/2024 History of stroke 01/27/2024 Dysarthria 01/27/2024 Alteration in neurologic function 01/27/2024 Elevated blood pressure read ing with diagnosis of hypertension 01/27/2024 Left ovarian cyst 09/03/2023 Right upper quadrant abdominal pain 09/03/2023 Exudative age-related macula r degeneration, unspecified laterality, unspecified stage 07/24/2023 Other speech disturbance 07/20/2023 Stroke (cerebrum) 07/06/2023 Cardiomyopathy, unspecified type 03/18/2022 Paroxysmal SVT (supraventricular tachycardia) LVH (left ventricular hypertrophy) 01/26/2021 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 Hypertensive kidney disease, stage 1 03/20/2019 Lipid disorder 10/28/2010 Sphincter of Oddi dysfunction 08/19/2010 Esophageal reflux 03/22/2010 Overview (01/27/2024): EGD 03/2009 Reactive gastropathy Degeneration of cervical intervertebral disc Raynaud's syndrome 01/02/2007 Encounters Date Type Department Care Team Description 02/29/2024 4:20 PM SEAFOOD SPECIALIST Virtual Visit [facility] [address] [place] [address] Yves Ballard MD Hypertension, unspecified type; Atherosclerosis of abdominal aorta; Hx of Cerebrovascular accident (CVA), (H); Hyperlipidemia LDL goal <70; Statin intolerance; Lymphedema 02/26/2024 1:30 PM SEAFOOD SPECIALIST Therapy Visit [facility] [address] [address] Kyra Perera Matthew M, OT Cerebrovascular accident (CVA) due to thrombosis of left middle cerebral artery (H) (Primary Dx); Activity of daily living alteration 02/26/2024 Travel 02/21/2024 MyC Medical Advice [facility] [address] [place] [address] Angel Hollins MD 02/20/2024 8:30 AM SEAFOOD SPECIALIST Lab [facility] [address] [place] [address] Hyperlipidemia LDL goal <70 02/19/2024 2:15 PM SEAFOOD SPECIALIST Therapy Visit [address] [address] Kyra Perera Matthew M, OT Cerebrovascular accident (CVA) due to thrombosis of left middle cerebral artery (H) (Primary Dx); Activity of daily living alteration 02/19/2024 Travel 01/27/2024 3:06 PM SEAFOOD SPECIALIST - 01/28/2024 12:30 PM SEAFOOD SPECIALIST Emergency [place] [address] [facility] [address] [place] [address] Luis Armando Dietz MD Ricklefs, Kendall D, DO Alteration in neurologic function (Primary Dx); History of stroke; Dysarthria; Facial droop; Elevated blood pressure reading with diagnosis of hypertension; Neck pain; Hypertensive urgency Discharge Disposition: Home or Self Care 01/27/2024 Travel 01/22/2024 2:15 PM SEAFOOD SPECIALIST Therapy Visit [address] [address] Kyra Perera Matthew M, OT Cerebrovascular accident (CVA) due to thrombosis of left middle cerebral artery (H) (Primary Dx); Activity of daily living alteration 01/22/2024 1:30 PM SEAFOOD SPECIALIST Therapy Visit [facility] [address] [place] [address] Kyra Perera [place], PT Cerebrovascular accident (CVA) due to thrombosis of left middle cerebral artery (H) (Primary Dx) 01/22/2024 Travel 01/19/2024 2:00 PM SEAFOOD SPECIALIST Therapy Visit [address] [address] Kyra Perera Matthew A Lymphedema (Primary Dx) 01/19/2024 Travel 01/15/2024 3:00 PM SEAFOOD SPECIALIST Therapy Visit [address] [address] Kyra Perera [place], PT Cerebrovascular accident (CVA) due to thrombosis of left middle cerebral artery (H) (Primary Dx) 01/15/2024 2:15 PM SEAFOOD SPECIALIST Therapy Visit [address] [address] Kyra Perera Matthew M, OT Cerebrovascular accident (CVA) due to thrombosis of left middle cerebral artery (H) (Primary Dx); Activity of daily living alteration 01/15/2024 Travel 01/08/2024 11:15 AM CDT Therapy Visit [address] [address] Kyra Perera Matthew M, OT Cerebrovascular accident (CVA) due to thrombosis of left middle cerebral artery (H) (Primary Dx); Activity of daily living alteration 01/08/2024 Travel from Last 3 Months Family History Medical [...] on file Legal Sex Female 3:34 AM SEAFOOD SPECIALIST Gender Identity Not on file Sexual Orientation Not on file Last Filed Vital Signs Vital Sign Reading Time Taken Comments Blood Pressure 160/93 01/28/2024 10:37 AM SEAFOOD SPECIALIST Pulse 77 01/28/2024 10:37 AM SEAFOOD SPECIALIST Temperature 36.8 C (98.3 F) 01/28/2024 10:37 AM SEAFOOD SPECIALIST Respiratory Rate 20 01/28/2024 10:3 7 AM SEAFOOD SPECIALIST Oxygen Saturation 96% 01/28/2024 10: 37 AM SEAFOOD SPECIALIST Inhaled Oxygen Concentration - - Weight 62.9 kg (138 lb 11.4 oz) 024 10:05 PM SEAFOOD SPECIALIST Height 157.5 cm (5' 2) 01/27/2024 10:0 5 PM SEAFOOD SPECIALIST Body Mass Index 25.37 01/27/2024 10:05 PM SEAFOOD SPECIALIST Plan of Treatment Health Maintenance Due Date Last Done Comments ADVANCE CARE PLANNING 1950 ANNUAL REVIEW OF HM ORDERS 1950 CT COLONOGRAPHY 1950 DEXA 1950 FIT 1950 FLEX SIG 1950 MICROALBUMIN 1950 sDNA (Cologuard) 1950 HEPATITIS C SCREENING 1968 Pneumococcal Vaccine: 50+ Years (1 of 1 - PCV) 2000 ZOSTER IMMUNIZATION (1 of 2) 2000 RSV VACCINE (1 - Risk 60-74 years 1-dose series) 2010 FALL RISK ASSESSMENT 06/21/2015 COVID-19 Vaccine ( season) 2023 03/16/2021, 05/23/2020 INFLUENZA VACCINE (#1) 2023 PHQ-2 (once per calendar year) 2024 10/17/2023, 07/25/2023 MEDICARE ANNUAL WELLNESS VISIT 11/21/2024 11/22/2023, 01/21/2022, 01/19/2021, Additional history exists BMP 02/19/2025 02/20/2024, 01/11, 09/27/2023, Additional history exists LIPID 02/19/2025 02/20/2024, 01/27/2024 MAMMO SCREENING 10/08/2025 10/09/2023, 09/11, 12/08/2021, Additional history exists GLUCOSE 02/19/2027 02/20/2024, 01/11, 01/27/2024, Additional history exists DTAP/TDAP/TD IMMUNIZATION (3 - Td or Tdap) 11/09/2027 11/08/2017, 05/30/2007 COLONOSCOPY 10/10/2032 10/10/2022 COLORECTAL CANCER SCREENING 10/10/2032 URINALYSIS Completed 09/27/2023, 08/27/2023 HPV IMMUNIZATION Aged Out No longer e ligible based on patient's age to complete this topic MENINGITIS IMMUNIZATION Aged Out No l onger eligible based on patient's age to complete this topic RSV MONOCLONAL ANTIBODY Aged Out No l onger eligible based on patient's age to complete this topic Procedures Procedure Name Priority Date/Time Associated Diagnosis Comments CK TOTAL Routine 02/20/2024 8:29 AM SEAFOOD SPECIALIST Hyperlipidemia LDL goal <70 COMPREHENSIVE METABOLIC PANEL Routine 02/20/2024 8:29 AM SEAFOOD SPECIALIST Hyperlipidemia LDL goal <70 LIPID REFLEX TO DIRECT LDL PANEL Routine 02/20/2024 8:29 AM SEAFOOD SPECIALIST Hyperlipidemia LDL goal <70 ECHO COMPLETE Routine 01/28/2024 9:20 AM SEAFOOD SPECIALIST MR BRAIN W/O & W CONTRAST STAT 01/27/2024 5:41 PM SEAFOOD SPECIALIST EKG 12-LEAD, TRACING ONLY STAT 01/27/2024 3:43 PM SEAFOOD SPECIALIST CTA HEAD NECK W CONTRAST STAT 01/27/2024 3:[address] HEAD W/O CONTRAST STAT 01/27/2024 3:19 PM SEAFOOD SPECIALIST CBC WITH PLATELETS & DIFFERENTIAL STAT 01/27/2024 3:13 PM SEAFOOD SPECIALIST LDL CHOLESTEROL DIRECT Routine 3:13 PM SEAFOOD SPECIALIST HEMOGLOBIN A1C Add-On 01/27/2024 3:13 PM SEAFOOD SPECIALIST LIPID REFLEX TO DIRECT LDL PANEL Add-On 01/27/2024 3:13 PM SEAFOOD SPECIALIST EXTRA RED TOP TUBE STAT 01/27/2024 3: 13 PM SEAFOOD SPECIALIST CBC WITH PLATELETS AND DIFFERENTIAL STAT 01/27/2024 3:13 PM SEAFOOD SPECIALIST EXTRA TUBE STAT 01/27/2024 3:13 PM SEAFOOD SPECIALIST TROPONIN T, HIGH SENSITIVITY STAT 01/27/2024 3:13 PM SEAFOOD SPECIALIST PARTIAL THROMBOPLASTIN TIME STAT 01/27/2024 3:13 PM SEAFOOD SPECIALIST INR STAT 01/27/2024 3:13 PM SEAFOOD SPECIALIST BASIC METABOLIC PANEL STAT 01/27/2024 3:13 PM SEAFOOD SPECIALIST GLUCOSE BY METER STAT 01/27/2024 3:03 PM SEAFOOD SPECIALIST ROUTINE UA WITH MICROSCOPIC REFLEX TO CULTURE STAT 09/27/2023 8:59 PM CDT from Last 3 Months or Most Recently Relevant to Health Maintenance Results * (ABNORMAL) Lipid panel reflex to direct LDL Fasting (02/20/2024 8:29 AM SEAFOOD SPECIALIST) Only the most recent of2 resultswithin the time period is included. Cholesterol 237(H) <200 mg/dL 02/20/2024 4:11 PM SEAFOOD SPECIALIST [facility] Triglycerides 208(H) <150 mg/dL 02/20/2024 4:11 PM SEAFOOD SPECIALIST [facility] Direct Measure HDL 47(L) >=50 mg/dL 02/20/2024 4:11 PM SEAFOOD SPECIALIST [facility] LDL Cholesterol Calculated 148(H) <100 mg/dL 02/20/2024 4:11 PM SEAFOOD SPECIALIST [facility] Non HDL Cholesterol 190(H) <130 mg/dL 02/20/2024 4:11 PM SEAFOOD SPECIALIST [facility] Patient Fasting > 8hrs? Yes 02/20/2024 4:11 PM SEAFOOD SPECIALIST [facility] Blood BLOOD SPECIMEN / Unknown Venipuncture / Unknown 02/20/2024 8:29 AM SEAFOOD SPECIALIST 02/20/2024 8:29 AM SEAFOOD SPECIALIST Narrative [facility] - 02/20/2024 4:11 PM SEAFOOD SPECIALIST Cholesterol Desirable: < 200 mg/dL Borderline High: 200 - 239 mg/dL High: >= 240 mg/dL Triglycerides Normal: < 150 mg/dL Borderline High: 150 - 199 mg/dL High: 200-499 mg/dL Very High: >= 500 mg/dL Direct Measure HDL Female: >= 50 mg/dL Male: >= 40 mg/dL LDL Cholesterol Desirable: < 100 mg/dL Above Desirable: 100 - 129 mg/dL Borderline High: 130 - 159 mg/dL High: 160 - 189 mg/dL Very High: >= 190 mg/dL Non HDL Cholesterol Desirable: < 130 mg/dL Above Desirable: 130 - 159 mg/dL Borderline High: 160 - 189 mg/dL High: 190 - 219 mg/dL Very High: >= 220 mg/dL us Yves Ballard MD LAB - BLOOD ORDERABL ES Final Result [facility] [address] [facility], [address] [place] [address] * (ABNORMAL) Comprehensive metabolic panel (02/20/2024 8:29 AM SEAFOOD SPECIALIST) Sodium 142 135 - 145 mmol/L 02/20/2024 4:11 PM SEAFOOD SPECIALIST [facility] Potassium 4.5 3.4 - 5.3 mmol/L 02/20/2024 4:11 PM SEAFOOD SPECIALIST [facility] Carbon Dioxide (CO2) 26 22 - 29 mmol/L 02/20/2024 4:11 PM SEAFOOD SPECIALIST [facility] Anion Gap 11 7 - 15 mmol/L 02/20/2024 4:11 PM SEAFOOD SPECIALIST [facility] Urea Nitrogen 16.2 8.0 - 23.0 mg/dL 02/20/2024 4:11 PM SEAFOOD SPECIALIST [facility] Creatinine 0.69 0.51 - 0.95 mg/dL 02/20/2024 4:11 PM SEAFOOD SPECIALIST [facility] GFR Estimate >90 >60 mL/min/1.7 3m2 02/20/2024 4:11 PM SEAFOOD SPECIALIST [facility] Comment:eGFR calculated us2020 CKD-EPI equation. Calcium 9.8 8.8 - 10.4 mg/dL 02/20/2024 4:11 PM SEAFOOD SPECIALIST [facility] Comment:Reference intervals for this test were updated on 09/26/2023 to reflect our healthy population more accurately. There may be differences in the flagging of prior results with similar values performed with this method. Those prior results can be interpreted in the context of the updated reference intervals. Chloride 105 98 - 107 mmol/L 02/20/2024 4:11 PM SEAFOOD SPECIALIST [facility] Glucose 103(H) 70 - 99 mg/dL 02/20/2024 4:11 PM SEAFOOD SPECIALIST [facility] Alkaline Phosphatase 81 40 - 150 U/L 02/20/2024 4:11 PM SEAFOOD SPECIALIST [facility] AST 26 0 - 45 U/L 02/20/2024 4:11 PM SEAFOOD SPECIALIST [facility] ALT 23 0 - 50 U/L 02/20/2024 4:11 PM SEAFOOD SPECIALIST [facility] Protein Total 7.2 6.4 - 8.3 g/dL 02/20/2024 4:11 PM SEAFOOD SPECIALIST [facility] Albumin 4.4 3.5 - 5.2 g/dL 02/20/2024 4:11 PM SEAFOOD SPECIALIST [facility] Bilirubin Total 0.4 <=1.2 mg/dL 02/20/2024 4:11 PM SEAFOOD SPECIALIST [facility] Patient Fasting > 8hrs? Yes 02/20/2024 4:11 PM SEAFOOD SPECIALIST [facility] Blood BLOOD SPECIMEN / Unknown Venipuncture / Unknown 02/20/2024 8:29 AM SEAFOOD SPECIALIST 02/20/2024 8:29 AM SEAFOOD SPECIALIST us Yves Ballard MD LAB - BLOOD ORDERABL ES Final Result [facility] [address] [facility], [address] [address] * CK total (02/20/2024 8:29 AM SEAFOOD SPECIALIST) Pathologist [facility] CK 48 26 - 192 U/L 02/20/2024 4:11 PM SEAFOOD SPECIALIST [facility] Blood BLOOD SPECIMEN / Unknown Venipuncture / Unknown 02/20/2024 8:29 AM SEAFOOD SPECIALIST 02/20/2024 8:29 AM SEAFOOD SPECIALIST us Yves Ballard MD LAB - BLOOD ORDERABL ES Final Result LABORATORY [facility] [address] [facility], [address] [address] * ECHO COMPLETE (01/28/2024 9:20 AM SEAFOOD SPECIALIST) Pathologist [facility] LVEF 55-60% CARDIOLOGY RESULTS Anatomical Region Laterality Modality Echocardiography 01/28/2024 9:12 AM SEAFOOD SPECIALIST Narrative 01/28/2024 10:40 AM SEAFOOD SPECIALIST [id number]^LORRAINE^MARIELENA^S [facility] Ech[facility] Laboratory [address] [place] [address] Name: MIYA CHOW : 1950 Study Date: 01/28/2024 09:12 AM Age: 73 yrs Gender: Female Patient Location: [facility] Reason For Study: TIA Ordering Physician: MARIELENA PETERS Performed By: Kain Burnham RDCS BSA: 1.6 m2 Height: 62 in Weight: 138 lb HR: 75 BP: 207/98 mmHg Procedure Complete Portable Echo Adult. Interpretation Summary The left ventricle is normal in size. A sigmoid septum is present without obstruction The visual ejection fraction is 55-60%. No regional wall motion abnormalities noted. The right ventricle is normal in structure, function and size. There is no significant valve disease No prior studies for comparison Consider cardiac MRI for further evaluation, with consideration for hypertrophic cardiomyopathy Left Ventricle The left ventricle is normal in size. A sigmoid septum is present. Echo findings are not consistent with left ventricular outflow obstruction. The left ventricular ejection fraction is normal. The visual ejection fraction is 55-60%. Left ventricular diastolic function is normal. Normal left ventricular wall motion. No regional wall motion abnormalities noted. Right Ventricle The right ventricle is normal in structure, function and size. Atria Normal left atrial size. Right atrial size is normal. Mitral Valve The mitral valve is normal in structure and function. There is trace to mild mitral regurgitation. Tricuspid Valve The tricuspid valve is not well visualized, but is grossly normal. There is physiologic tricuspid regurgitation. Aortic Valve The aortic valve is trileaflet. There is trace to mild aortic regurgitation. No aortic stenosis is present. Pulmonic Valve The pulmonic valve is not well seen, but is grossly normal. Vessels Normal size aorta. Pericardium The pericardium appears normal. MMode/2D Measurements & Calculations IVSd: 0.87 cm LVIDd: 4.1 cm LVIDs: 2.4 cm LVPWd: 0.77 cm IVC diam: 1.6 cm FS: 42.4 % LV mass(C)d: 102.1 grams LV mass(C)dI: 62.6 grams/m2 Ao root diam: 3.2 cm LA dimension: 3.4 cm asc Aorta Diam: 3.5 cm LA/Ao: 1.0 Ao root diam index Ht(cm/m): 2.1 Ao root diam index BSA (cm/m2): 2.0 Asc Ao diam index BSA (cm/m2): 2.2 Asc Ao diam index Ht(cm/m): 2.2 LA Volume (BP): 28.6 ml LA Volume Index (BP): 17.5 ml/m2 RV Base: 3.1 cm RWT: 0.38 TAPSE: 1.3 cm Doppler Measurements & Calculations MV E max shakeel: 61.8 cm/sec MV A max shakeel: 87.5 cm/sec MV E/A: 0.71 MV dec slope: 292.7 cm/sec2 MV dec time: 0.21 sec LV V1 max P.5 mmHg LV V1 max: 116.9 cm/sec E/E' av.5 Lateral E/e': 9.2 Medial E/e': 15.8 RV S Shakeel: 7.4 cm/sec Report approved by: Tahir Gregorio 01/28/2024 10:40 AM Procedure Note Sandie Perez MD - 01/28/2024 [id number]^LORRAINE^MARIELENA^S [facility] Echocardiography Laboratory [address] [place] [id number] Name: MIYA CHOW Arabella : 1950 Study Date: 01/28/2024 09:12 AM Age: 73 yrs Gender: Female Patient Location: [facility] Reason For Study: TIA Ordering Physician: MARIELENA PETERS Performed By: Kain Burnham JELENA BSA: 1.6 m2 Height: 62 in Weight: 138 lb HR: 75 BP: 207/98 mmHg Procedure Complete Portable Echo Adult. Interpretation Summary The left ventricle is normal in size. A sigmoid septum is present without obstruction The visual ejection fraction is 55-60%. No regional wall motion abnormalities noted. The right ventricle is normal in structure, function and size. There is no significant valve disease No prior studies for comparison Consider cardiac MRI for further evaluation, with consideration for hypertrophic cardiomyopathy Left Ventricle The left ventricle is normal in size. A sigmoid septum is present. Echo findings are not consistent with left ventricular outflow obstruction.The left ventricular ejection fraction is normal. The visual ejection fractionis 55-60%. Left ventricular diastolic function is normal. Normal leftventricular wall motion. No regional wall motion abnormalities noted. Right Ventricle The right ventricle is normal in structure, function and size. Atria Normal left atrial size. Right atrial size is normal. Mitral Valve The mitral valve is normal in structure and function. There is trace tomild mitral regurgitation. Tricuspid Valve The tricuspid valve is not well visualized, but is grossly normal. Thereis physiologic tricuspid regurgitation. Aortic Valve The aortic valve is trileaflet. There is trace to mild aorticregurgitation. No aortic stenosis is present. Pulmonic Valve The pulmonic valve is not well seen, but is grossly normal. Vessels Normal size aorta. Pericardium The pericardium appears normal. MMode/2D Measurements & Calculations IVSd: 0.87 cm LVIDd: 4.1 cm LVIDs: 2.4 cm LVPWd: 0.77 cm IVC diam: 1.6 cm FS: 42.4 % LV mass(C)d: 102.1 grams LV mass(C)dI: 62.6 grams/m2 Ao root diam: 3.2 cm LA dimension: 3.4 cm asc Aorta Diam: 3.5 cm LA/Ao: 1.0 Ao root diam index Ht(cm/m): 2.1 Ao root diam index BSA (cm/m2): 2.0 Asc Ao diam index BSA (cm/m2): 2.2 Asc Ao diam index Ht(cm/m): 2.2 LA Volume (BP): 28.6 ml LA Volume Index (BP): 17.5 ml/m2 RV Base: 3.1 cm RWT: 0.38 TAPSE: 1.3 cm Doppler Measurements & Calculations MV E max shakeel: 61.8 cm/sec MV A max shakeel: 87.5 cm/sec MV E/A: 0.71 MV dec slope: 292.7 cm/sec2 MV dec time: 0.21 sec LV V1 max P.5 mmHg LV V1 max: 116.9 cm/sec E/E' av.5 Lateral E/e': 9.2 Medial E/e': 15.8 RV S Shakeel: 7.4 cm/sec Report approved by: Tahir Gregorio 01/28/2024 10:40 AM us Marielena Peters PA-C CV ECHO ORDERABLES Edited Result - Final * MR Brain w/o & w Contrast (01/27/2024 5:41 PM SEAFOOD SPECIALIST) Anatomical Region Laterality Modality Head, SUBRAD MR NEURO, UMP MR NEURO, RAD MR Magnetic Resonance 01/27/2024 5:41 PM SEAFOOD SPECIALIST Impressions 01/27/2024 5:55 PM SEAFOOD SPECIALIST IMPRESSION: 1. No acute infarct. 2. Chronic intracranial changes described above. Narrative 01/27/2024 5:55 PM SEAFOOD SPECIALIST EXAM: MR BRAIN W/O and W CONTRAST LOCATION: [facility] DATE: 01/27/2024 INDICATION: eval for stroke, Headache, weakness, COMPARISON: CT head 01/27/2024 CONTRAST: 6.5mL Gadavist TECHNIQUE: Routine multiplanar multisequence head MRI without and with intravenous contrast. FINDINGS: INTRACRANIAL CONTENTS: No acute or subacute infarct. No mass, acute hemorrhage, or extra-axial fluid collections. Patchy nonspecific T2/FLAIR hyperintensities within the cerebral white matter most consistent with mild to moderate chronic microvascular ischemic change. Mild generalized cerebral atrophy. No hydrocephalus. Mild cerebellar atrophy. No pathologic contrast enhancement. Right basal ganglia small chronic infarct. Left superior basal ganglia small chronic infarct. Left side mild wallerian degeneration. SELLA: No abnormality accounting for technique. OSSEOUS STRUCTURES/SOFT TISSUES: Normal marrow signal. The major intracranial vascular flow voids are maintained. ORBITS: No abnormality accounting for technique. SINUSES/MASTOIDS: Visualized paranasal sinuses and mastoid air cells are essentially clear. Procedure Note Alvaro Neves MD - 01/27/2024 EXAM: MR BRAIN W/O and W CONTRAST LOCATION: [facility] DATE: 01/27/2024 INDICATION: eval for stroke, Headache, weakness, COMPARISON: CT head 01/27/2024 CONTRAST: 6.5mL Gadavist TECHNIQUE: Routine multiplanar multisequence head MRI without and withintravenous contrast. FINDINGS: INTRACRANIAL CONTENTS: No acute or subacute infarct. No mass, acutehemorrhage, or extra-axial fluid collections. Patchy nonspecific T2/FLAIRhyperintensities within the cerebral white matter most consistent withmild to moderate chronic microvascular ischemic change. Mild generalized cerebral atrophy. No hydrocephalus. Mildcerebellar atrophy. No pathologic contrast enhancement. Right basal ganglia small chronic infarct. Left superior basal gangliasmall chronic infarct. Left side mild wallerian degeneration. SELLA: No abnormality accounting for technique. OSSEOUS STRUCTURES/SOFT TISSUES: Normal marrow signal. The majorintracranial vascular flow voids are maintained. ORBITS: No abnormality accounting for technique. SINUSES/MASTOIDS: Visualized paranasal sinuses and mastoid air cells areessentially clear. IMPRESSION: 1. No acute infarct. 2. Chronic intracranial changes described above. us Luis Armando Dietz MD IMG MRI ORDERABLES Final Res ult * EKG 12-lead, tracing only (01/27/2024 3:43 PM SEAFOOD SPECIALIST) Systolic Blood Pressure mmHg RADIOLOGY RESULTS Diastolic Blood Pressure mmHg RADIOLOGY RESULTS Ventricular Rate 70 BPM RAD IOLOGY RESULTS Atrial Rate 70 BPM RADIOLOG Y RESULTS RI Interval 162 ms RADIOLOG Y RESULTS QRS Duration 80 ms RADIOLO GY RESULTS QT 386 ms RADIOLOGY RESULTS QTc 416 ms RADIOLOGY RESULTS P [place] 49 degrees RADIOLOGY RESULTS R AXIS 10 degrees RADIOLOGY RESULTS T [place] 28 degrees RADIOLOGY RESULTS Interpretation ECG Sinus rhythm Minimal voltage criteria for LVH, may be normal variant ( R in aVL ) Borderline ECG When compared with ECG of 27-Sep-2023 20:06, No significant change was found Confirmed by - EMERGENCY ROOM, PHYSICIAN ([id number]), book or script editor TERRENCE JONES (Tianna) on 01/29/2024 7:06:56 AM RADIOLOGY RESULTS 01/27/2024 3:43 PM SEAFOOD SPECIALIST 01/29/2024 7:06 AM SEAFOOD SPECIALIST us Luis Armando Dietz MD ECG ORDERABLES Edited Resul t - Final RADIOLOGY RESULTS * CTA Head Neck with Contrast (01/27/2024 3:27 PM SEAFOOD SPECIALIST) Anatomical Region Laterality Modality Head, SUBRAD CT NEURO, SUBRA D CT NEURO, UMP CT NEURO, RAD CT Computed Tomography 01/27/2024 3:27 PM SEAFOOD SPECIALIST Impressions 01/27/2024 3:53 PM SEAFOOD SPECIALIST IMPRESSION: HEAD CT: 1. No acute intracranial process. HEAD CTA: 1. Redemonstration of severe multifocal intracranial atherosclerosis. When compared to 09/27/2023 and 07/01/2023, there has been interval development of a short segment of nonopacification involving the proximal A1 segment of the left DARIUSZ. This probably relates to worsening of already previously severe stenosis in this area. Short segment occlusion with distal reconstitution is also possible. Remainder of the intracranial status atherosclerotic stenoses are unchanged. 2. No aneurysm. NECK CTA: 1. Redemonstration of the undulating contour of the bilateral ICAs, similar in appearance to 09/27/2023 and 07/01/2023. This probably relates to fibromuscular dysplasia, as previously discussed. 2. Unchanged appearance of the extremely diminutive left vertebral artery. 3. Remainder of the cervical arterial vasculature is patent without flow-limiting stenosis. Noncontrast head CT findings discussed with Dr. Dietz on 01/27/2024 at 1529 and CTA discussed at 1547 Narrative 01/27/2024 3:53 PM SEAFOOD SPECIALIST EXAM: CTA HEAD NECK W CONTRAST, CT HEAD W/O CONTRAST LOCATION: [facility] DATE: 01/27/2024 INDICATION: Code Stroke to evaluate for potential thrombolysis and thrombectomy. PLEASE READ IMMEDIATELY. Headache, weakness, stroke code COMPARISON: MRI brain 09/27/2023, MRA head and neck 09/27/2023 CONTRAST: 67 mL Isovue 370 TECHNIQUE: Head and neck CT angiogram with IV contrast. Noncontrast head CT followed by axial helical CT images of the head and neck vessels obtained during the arterial phase of intravenous contrast administration. Axial 2D reconstructed images and multiplanar 3D MIP reconstructed images of the head and neck vessels were performed by the technologist. Dose reduction techniques were used. All stenosis measurements made according to NASCET criteria unless otherwise specified. FINDINGS: NONCONTRAST HEAD CT: INTRACRANIAL CONTENTS: No intracranial hemorrhage, extraaxial collection, or mass effect. No CT evidence of acute infarct. Moderate presumed chronic small vessel ischemic changes. Unchanged mild generalized volume loss. No hydrocephalus. VISUALIZED ORBITS/SINUSES/MASTOIDS: No intraorbital abnormality. No paranasal sinus mucosal disease. No middle ear or mastoid effusion. BONES/SOFT TISSUES: No acute abnormality. HEAD CTA: ANTERIOR CIRCULATION: Unchanged severe multifocal stenosis of the M2 branches of the right MCA and mild stenosis of the M1 segment of the right MCA. Severe stenosis of the proximal A1 segment of the left DARIUSZ, now with a short segment of complete nonopacification. POSTERIOR CIRCULATION: Unchanged appearance of the mildly bulbous basilar tip. No discrete aneurysm. Unchanged moderate and severe stenosis of the right BARGAIN TABLE CLERK. DURAL VENOUS SINUSES: Expected enhancement of the major dural venous sinuses. NECK CTA: RIGHT CAROTID: Redemonstration of the undulating contour of the right cervical ICA with focal distal ectasia just caudal to the skull base. LEFT CAROTID: Unchanged luminal irregularity of the left cervical ICA. VERTEBRAL ARTERIES: Extremely diminutive left vertebral artery. Both vertebral arteries are patent. Balanced vertebral arteries. AORTIC ARCH: Classic aortic arch anatomy with no significant stenosis at the origin of the great vessels. NONVASCULAR STRUCTURES: Unremarkable. Procedure Note Adriel Stearns MD - 01/27/2024 EXAM: CTA HEAD NECK W CONTRAST, CT HEAD W/O CONTRAST LOCATION: [facility] DATE: 01/27/2024 INDICATION: Code Stroke to evaluate for potential thrombolysis andthrombectomy. PLEASE READ IMMEDIATELY. Headache, weakness, stroke code COMPARISON: MRI brain 09/27/2023, MRA head and neck 09/27/2023 CONTRAST: 67 mL Isovue 370 TECHNIQUE: Head and neck CT angiogram with IV contrast. Noncontrast headCT followed by axial helical CT images of the head and neck vesselsobtained during the arterial phase of intravenous contrast administration.Axial 2D reconstructed images and multiplanar 3D MIP reconstructed images of the head and neck vessels wereperformed by the technologist. Dose reduction techniques were used. Allstenosis measurements made according to NASCET criteria unless otherwisespecified. FINDINGS: NONCONTRAST HEAD CT: INTRACRANIAL CONTENTS: No intracranial hemorrhage, extraaxial collection,or mass effect. No CT evidence of acute infarct. Moderate presumedchronic small vessel ischemic changes. Unchanged mild generalized volumeloss. No hydrocephalus. VISUALIZED ORBITS/SINUSES/MASTOIDS: No intraorbital abnormality. Noparanasal sinus mucosal disease. No middle ear or mastoid effusion. BONES/SOFT TISSUES: No acute abnormality. HEAD CTA: ANTERIOR CIRCULATION: Unchanged severe multifocal stenosis of the [id number] of the right MCA and mild stenosis of the M1 segment of the rightMCA. Severe stenosis of the proximal A1 segment of the left DARIUSZ, now witha short segment of complete nonopacification. POSTERIOR CIRCULATION: Unchanged appearance of the mildly bulbous basilartip. No discrete aneurysm. Unchanged moderate and severe stenosis of theright BARGAIN TABLE CLERK. DURAL VENOUS SINUSES: Expected enhancement of the major dural venoussinuses. NECK CTA: RIGHT CAROTID: Redemonstration of the undulating contour of the rightcervical ICA with focal distal ectasia just caudal to the skull base. LEFT CAROTID: Unchanged luminal irregularity of the left cervical ICA. VERTEBRAL ARTERIES: Extremely diminutive left vertebral artery. Bothvertebral arteries are patent. Balanced vertebral arteries. AORTIC ARCH: Classic aortic arch anatomy with no significant stenosis atthe origin of the great vessels. NONVASCULAR STRUCTURES: Unremarkable. IMPRESSION: HEAD CT: 1. No acute intracranial process. HEAD CTA: 1. Redemonstration of severe multifocal intracranial atherosclerosis.When compared to 09/27/2023 and 07/01/2023, there has been intervaldevelopment of a short segment of nonopacification involving the proximalA1 segment of the left DARIUSZ. This probably relates to worsening of already previously severe stenosis in this area.Short segment occlusion with distal reconstitution is also possible.Remainder of the intracranial status atherosclerotic stenoses areunchanged. 2. No aneurysm. NECK CTA: 1. Redemonstration of the undulating contour of the bilateral ICAs,similar in appearance to 09/27/2023 and 07/01/2023. This probably relates tofibromuscular dysplasia, as previously discussed. 2. Unchanged appearance of the extremely diminutive left vertebralartery. 3. Remainder of the cervical arterial vasculature is patent withoutflow-limiting stenosis. Noncontrast head CT findings discussed with Dr. Dietz on 01/27/2024 [id number] and CTA discussed at 1547 Luis Armando Dietz MD [facility] [place] ORDERABLES Final Resu lt * CT Head w/o Contrast (01/27/2024 3:19 PM SEAFOOD SPECIALIST) Anatomical Region Laterality Modality Head, SUBRAD CT NEURO, SUBRA D CT NEURO, UMP CT NEURO, RAD CT Computed Tomography 01/27/2024 3:19 PM SEAFOOD SPECIALIST Impressions 01/27/2024 3:53 PM SEAFOOD SPECIALIST IMPRESSION: HEAD CT: 1. No acute intracranial process. HEAD CTA: 1. Redemonstration of severe multifocal intracranial atherosclerosis. When compared to 09/27/2023 and 07/01/2023, there has been interval development of a short segment of nonopacification involving the proximal A1 segment of the left DARIUSZ. This probably relates to worsening of already previously severe stenosis in this area. Short segment occlusion with distal reconstitution is also possible. Remainder of the intracranial status atherosclerotic stenoses are unchanged. 2. No aneurysm. NECK CTA: 1. Redemonstration of the undulating contour of the bilateral ICAs, similar in appearance to 09/27/2023 and 07/01/2023. This probably relates to fibromuscular dysplasia, as previously discussed. 2. Unchanged appearance of the extremely diminutive left vertebral artery. 3. Remainder of the cervical arterial vasculature is patent without flow-limiting stenosis. Noncontrast head CT findings discussed with Dr. Dietz on 01/27/2024 at 1529 and CTA discussed at 1547 Narrative 01/27/2024 3:53 PM SEAFOOD SPECIALIST EXAM: CTA HEAD NECK W CONTRAST, CT HEAD W/O CONTRAST LOCATION: [facility] DATE: 01/27/2024 INDICATION: Code Stroke to evaluate for potential thrombolysis and thrombectomy. PLEASE READ IMMEDIATELY. Headache, weakness, stroke code COMPARISON: MRI brain 09/27/2023, MRA head and neck 09/27/2023 CONTRAST: 67 mL Isovue 370 TECHNIQUE: Head and neck CT angiogram with IV contrast. Noncontrast head CT followed by axial helical CT images of the head and neck vessels obtained during the arterial phase of intravenous contrast administration. Axial 2D reconstructed images and multiplanar 3D MIP reconstructed images of the head and neck vessels were performed by the technologist. Dose reduction techniques were used. All stenosis measurements made according to NASCET criteria unless otherwise specified. FINDINGS: NONCONTRAST HEAD CT: INTRACRANIAL CONTENTS: No intracranial hemorrhage, extraaxial collection, or mass effect. No CT evidence of acute infarct. Moderate presumed chronic small vessel ischemic changes. Unchanged mild generalized volume loss. No hydrocephalus. VISUALIZED ORBITS/SINUSES/MASTOIDS: No intraorbital abnormality. No paranasal sinus mucosal disease. No middle ear or mastoid effusion. BONES/SOFT TISSUES: No acute abnormality. HEAD CTA: ANTERIOR CIRCULATION: Unchanged severe multifocal stenosis of the M2 branches of the right MCA and mild stenosis of the M1 segment of the right MCA. Severe stenosis of the proximal A1 segment of the left DARIUSZ, now with a short segment of complete nonopacification. POSTERIOR CIRCULATION: Unchanged appearance of the mildly bulbous basilar tip. No discrete aneurysm. Unchanged moderate and severe stenosis of the right BARGAIN TABLE CLERK. DURAL VENOUS SINUSES: Expected enhancement of the major dural venous sinuses. NECK CTA: RIGHT CAROTID: Redemonstration of the undulating contour of the right cervical ICA with focal distal ectasia just caudal to the skull base. LEFT CAROTID: Unchanged luminal irregularity of the left cervical ICA. VERTEBRAL ARTERIES: Extremely diminutive left vertebral artery. Both vertebral arteries are patent. Balanced vertebral arteries. AORTIC ARCH: Classic aortic arch anatomy with no significant stenosis at the origin of the great vessels. NONVASCULAR STRUCTURES: Unremarkable. Procedure Note Adriel Stearns MD - 01/27/2024 EXAM: CTA HEAD NECK W CONTRAST, CT HEAD W/O CONTRAST LOCATION: [facility] DATE: 01/27/2024 INDICATION: Code Stroke to evaluate for potential thrombolysis andthrombectomy. PLEASE READ IMMEDIATELY. Headache, weakness, stroke code COMPARISON: MRI brain 09/27/2023, MRA head and neck 09/27/2023 CONTRAST: 67 mL Isovue 370 TECHNIQUE: Head and neck CT angiogram with IV contrast. Noncontrast headCT followed by axial helical CT images of the head and neck vesselsobtained during the arterial phase of intravenous contrast administration.Axial 2D reconstructed images and multiplanar 3D MIP reconstructed images of the head and neck vessels wereperformed by the technologist. Dose reduction techniques were used. Allstenosis measurements made according to NASCET criteria unless otherwisespecified. FINDINGS: NONCONTRAST HEAD CT: INTRACRANIAL CONTENTS: No intracranial hemorrhage, extraaxial collection,or mass effect. No CT evidence of acute infarct. Moderate presumedchronic small vessel ischemic changes. Unchanged mild generalized volumeloss. No hydrocephalus. VISUALIZED ORBITS/SINUSES/MASTOIDS: No intraorbital abnormality. Noparanasal sinus mucosal disease. No middle ear or mastoid effusion. BONES/SOFT TISSUES: No acute abnormality. HEAD CTA: ANTERIOR CIRCULATION: Unchanged severe multifocal stenosis of the [id number] of the right MCA and mild stenosis of the M1 segment of the rightMCA. Severe stenosis of the proximal A1 segment of the left DARIUSZ, now witha short segment of complete nonopacification. POSTERIOR CIRCULATION: Unchanged appearance of the mildly bulbous basilartip. No discrete aneurysm. Unchanged moderate and severe stenosis of theright BARGAIN TABLE CLERK. DURAL VENOUS SINUSES: Expected enhancement of the major dural venoussinuses. NECK CTA: RIGHT CAROTID: Redemonstration of the undulating contour of the rightcervical ICA with focal distal ectasia just caudal to the skull base. LEFT CAROTID: Unchanged luminal irregularity of the left cervical ICA. VERTEBRAL ARTERIES: Extremely diminutive left vertebral artery. Bothvertebral arteries are patent. Balanced vertebral arteries. AORTIC ARCH: Classic aortic arch anatomy with no significant stenosis atthe origin of the great vessels. NONVASCULAR STRUCTURES: Unremarkable. IMPRESSION: HEAD CT: 1. No acute intracranial process. HEAD CTA: 1. Redemonstration of severe multifocal intracranial atherosclerosis.When compared to 09/27/2023 and 07/01/2023, there has been intervaldevelopment of a short segment of nonopacification involving the proximalA1 segment of the left DARIUSZ. This probably relates to worsening of already previously severe stenosis in this area.Short segment occlusion with distal reconstitution is also possible.Remainder of the intracranial status atherosclerotic stenoses areunchanged. 2. No aneurysm. NECK CTA: 1. Redemonstration of the undulating contour of the bilateral ICAs,similar in appearance to 09/27/2023 and 07/01/2023. This probably relates tofibromuscular dysplasia, as previously discussed. 2. Unchanged appearance of the extremely diminutive left vertebralartery. 3. Remainder of the cervical arterial vasculature is patent withoutflow-limiting stenosis. Noncontrast head CT findings discussed with Dr. Dietz on 01/27/2024 [id number] and CTA discussed at 1547 Luis Armando Dietz MD [facility] [place] ORDERABLES Final Resu lt * Extra Red Top Tube (01/27/2024 3:13 PM SEAFOOD SPECIALIST) [facility] Specimen [facility] 01/27/2024 4:32 PM SEAFOOD SPECIALIST [facility] Blood BLOOD SPECIMEN / Unknown Venipuncture / Unknown 01/27/2024 3:13 PM SEAFOOD SPECIALIST 01/27/2024 3:17 PM SEAFOOD SPECIALIST us Jarvis Trevizo MD LAB - BLOOD ORDERABLES Fi nal Result [facility] [address] Lab (1st floor, no room number) [place] [address] * (ABNORMAL) CBC with platelets and differential (01/27/2024 3:13 PM SEAFOOD SPECIALIST) WBC Count 5.2 4.0 - 11.0 10e3/uL 01/27/2024 3:21 PM SEAFOOD SPECIALIST [facility] RBC Count 5.25(H) 3.80 - 5.20 10e6/uL 01/27/2024 3:21 PM SEAFOOD SPECIALIST [facility] Hemoglobin 15.5 11.7 - 15.7 g/dL 01/27/2024 3:21 PM SEAFOOD SPECIALIST [facility] Hematocrit 46.9 35.0 - 47.0 % 01/27/2024 3:21 PM SEAFOOD SPECIALIST [facility] MCV 89 78 - 100 fL 01/27/2024 3:21 PM SEAFOOD SPECIALIST [facility] MCH 29.5 26.5 - 33.0 pg 01/27/2024 3:21 PM SEAFOOD SPECIALIST [facility] MCHC 33.0 31.5 - 36.5 g/dL 01/27/2024 3:21 PM SEAFOOD SPECIALIST [facility] RDW 12.8 10.0 - 15.0 % 01/27/2024 3:21 PM SEAFOOD SPECIALIST [facility] Platelet Count 215 150 - 450 10e3/uL 01/27/2024 3:21 PM SEAFOOD SPECIALIST [facility] % Neutrophils 56 % 01/27/2024 3:21 PM SEAFOOD SPECIALIST [facility] % Lymphocytes 31 % 01/27/2024 3:21 PM SEAFOOD SPECIALIST [facility] % Monocytes 10 % 01/27/2024 3:21 PM SEAFOOD SPECIALIST [facility] % Eosinophils 2 % 01/27/2024 3:21 PM SEAFOOD SPECIALIST [facility] % Basophils 0 % 01/27/2024 3:21 PM SEAFOOD SPECIALIST [facility] % Immature Granulocytes 0 % 01/27/2024 3:21 PM SEAFOOD SPECIALIST [facility] NRBCs per 100 WBC 0 <1 /100 024 3:21 PM SEAFOOD SPECIALIST [facility] Absolute Neutrophils 2.9 1.6 - 8.3 10e3/uL 01/27/2024 3:21 PM SEAFOOD SPECIALIST [facility] Absolute Lymphocytes 1.6 0.8 - 5.3 10e3/uL 01/27/2024 3:21 PM SEAFOOD SPECIALIST [facility] Absolute Monocytes 0.5 0.0 - 1.3 10e3/uL 01/27/2024 3:21 PM SEAFOOD SPECIALIST [facility] Absolute Eosinophils 0.1 0.0 - 0.7 10e3/uL 01/27/2024 3:21 PM SEAFOOD SPECIALIST [facility] Absolute Basophils 0.0 0.0 - 0.2 10e3/uL 01/27/2024 3:21 PM SEAFOOD SPECIALIST LABORATORY Absolute Immature Granulocytes 0.0 <=0.4 10e3/uL 01/27/2024 3:21 PM SEAFOOD SPECIALIST [facility] Absolute NRBCs 0.0 10e3/uL 01/27/2024 3:21 PM SEAFOOD SPECIALIST LABORATORY Blood BLOOD SPECIMEN / Unknown Venipuncture / Unknown 01/27/2024 3:13 PM SEAFOOD SPECIALIST 01/27/2024 3:17 PM SEAFOOD SPECIALIST Luis Armando Dietz MD LAB - BLOOD ORDERABLES Final Result LABORATORY [facility] [address] Lab (1st floor, no room number) [place] [address], [facility] * Troponin T, High Sensitivity (01/27/2024 3:13 PM SEAFOOD SPECIALIST) Pathologist [facility] Troponin T, High Sensitivity 7 <=14 ng/L 01/27/2024 3:43 PM SEAFOOD SPECIALIST [facility] Comment: Either a High Sensitivity Troponin T baseline (0 hours) value = 100 ng/L, or an increase in High Sensitivity Troponin T = 7 ng/L at 2 hours compared to 0 hours (2-0 hours), suggests myocardial injury, and urgent clinical attention is required. If the 2-0 hours increase is <7 [...] follow-up, or urgent outpatient provocative testing. Blood BLOOD SPECIMEN / Unknown Venipuncture / Unknown 01/27/2024 3:13 PM SEAFOOD SPECIALIST 01/27/2024 3:17 PM SEAFOOD SPECIALIST us Luis Armando Dietz MD LAB - BLOOD ORDERABLES Final Result [facility] [address] Lab (1st floor, no room number) [place] [phone] * INR (01/27/2024 3:13 PM SEAFOOD SPECIALIST) INR 0.93 0.85 - 1.15 01/27/2024 3:37 PM SEAFOOD SPECIALIST [facility] Blood BLOOD SPECIMEN / Unknown Venipuncture / Unknown 01/27/2024 3:13 PM SEAFOOD SPECIALIST 01/27/2024 3:17 PM SEAFOOD SPECIALIST us Luis Armando Dietz MD LAB - BLOOD ORDERABLES Final Result Performing Organization Address [facility]/ZIP Co de Phone Number [facility] Lab [address] Lab (1st floor, no room number) [place] [phone] * Partial thromboplastin time (01/27/2024 3:13 PM SEAFOOD SPECIALIST) aPTT 32 22 - 38 Seconds 01/27/2024 3:37 PM SEAFOOD SPECIALIST [facility] Blood BLOOD SPECIMEN / Unknown Venipuncture / Unknown 01/27/2024 3:13 PM SEAFOOD SPECIALIST 01/27/2024 3:17 PM SEAFOOD SPECIALIST us Luis Armando Dietz MD LAB - BLOOD ORDERABLES Final Result Performing Organization Address City/[facility]/ZIP Co de Phone Number [facility] Lab [address] Lab (1st floor, no room number) [place] [address] * (ABNORMAL) LDL cholesterol direct (01/27/2024 3:13 PM SEAFOOD SPECIALIST) LDL Cholesterol Direct 142(H) <100 mg/dL 01/28/2024 1:47 AM SEAFOOD SPECIALIST [facility] Comment: Age 2-19 years: Desirable: < 110 mg/dL Borderline High: 110-129 mg/dL High: >= 130 mg/dL Age 20 years and older: Desirable: < 100 mg/dL Above Desirable: 100-129 mg/dL Borderline High: 130-159 mg/dL High: 160-189 mg/dL Very High: >= 190 mg/dL Blood BLOOD SPECIMEN / Unknown Venipuncture / Unknown 01/27/2024 3:13 PM SEAFOOD SPECIALIST 01/27/2024 3:17 PM SEAFOOD SPECIALIST Marielena Peters PA-C LAB - BLOOD ORDERABLES Fin al Result LABORATORY [facility] [place] [facility] [address], [address] [place] [address] * (ABNORMAL) Hemoglobin A1c (01/27/2024 3:13 PM SEAFOOD SPECIALIST) Pathologist [facility] Estimated Average Glucose 126(H) <117 mg/dL 01/27/2024 8:39 PM SEAFOOD SPECIALIST LABORATORY Hemoglobin A1C 6.0(H) <5.7 % 01/27/2024 8:39 PM SEAFOOD SPECIALIST LABORATORY Comment: Normal <5.7% Prediabetes 5.7-6.4% Diabetes 6.5% or higher Note: Adopted from ADA consensus guidelines. Blood BLOOD SPECIMEN / Unknown Venipuncture / Unknown 01/27/2024 3:13 PM SEAFOOD SPECIALIST 01/27/2024 3:17 PM SEAFOOD SPECIALIST Marielena Peters PA-C LAB - BLOOD ORDERABLES Fin al Result LABORATORY [facility] [address] Lab (1st floor, no room number) [place] [address], [facility] * (ABNORMAL) Basic metabolic panel (01/27/2024 3:13 PM SEAFOOD SPECIALIST) Sodium 140 135 - 145 mmol/L 01/27/2024 3:43 PM SEAFOOD SPECIALIST LABORATORY Potassium 4.0 3.4 - 5.3 mmol/L 01/27/2024 3:43 PM SEAFOOD SPECIALIST LABORATORY Chloride 102 98 - 107 mmol/L 01/27/2024 3:43 PM SEAFOOD SPECIALIST LABORATORY Carbon Dioxide (CO2) 25 22 - 29 mmol/L 01/27/2024 3:43 PM SEAFOOD SPECIALIST LABORATORY Anion Gap 13 7 - 15 mmol/L 01/27/2024 3:43 PM SEAFOOD SPECIALIST LABORATORY Urea Nitrogen 17.2 8.0 - 23.0 mg/dL 01/27/2024 3:43 PM [facility] Creatinine 0.65 0.51 - 0.95 mg/dL 01/27/2024 3:43 PM SEAFOOD SPECIALIST LABORATORY GFR Estimate >90 >60 mL/min/1.7 3m2 01/27/2024 3:43 PM [facility] Comment:eGFR calculated usin 2020 CKD-EPI equation. Calcium 9.6 8.8 - 10.4 mg/dL 01/27/2024 3:43 PM [facility] Comment:Reference intervals for this test were updated on 09/26/2023 to reflect our healthy population more accurately. There may be differences in the flagging of prior results with similar values performed with this method. Those prior results can be interpreted in the context of the updated reference intervals. Glucose 118(H) 70 - 99 mg/dL 01/27/2024 3:43 PM [facility] Blood BLOOD SPECIMEN / Unknown Venipuncture / Unknown 01/27/2024 3:13 PM SEAFOOD SPECIALIST 01/27/2024 3:17 PM SEAFOOD SPECIALIST Luis Armando Dietz MD LAB - BLOOD ORDERABLES Final Result LABORATORY [facility] [address] [facility] Lab (1st floor, no room number) [place] [address], [facility] * (ABNORMAL) Glucose by meter (01/27/2024 3:03 PM SEAFOOD SPECIALIST) GLUCOSE BY METER POCT 110(H) 70 - 99 mg/dL 01/27/2024 3:10 PM SEAFOOD SPECIALIST [facility] POC Comment:Dr/RN Notified Blood, Capillary BLOOD SPECIMEN / Unknown 01/27/2024 3:03 PM SEAFOOD SPECIALIST 01/27/2024 3:10 PM SEAFOOD SPECIALIST Luis Armando Dietz MD LAB - BEAKER POCT Final Resu lt [facility] LABORATORY POC [facility] [address] (1st floor, no room number) [place] [address], [facility] * (ABNORMAL) UA with Microscopic reflex to Culture (09/27/2023 8:59 PM CDT) Color Urine Straw Colorless, Straw, Light Yellow, Yellow 09/27/2023 9:15 PM CDT LABORATORY Appearance Urine Clear Clear 09/27/19 24 9:15 PM CDT LABORATORY Glucose Urine Negative Negative mg/dL 09/27/2023 9:15 PM CDT LABORATORY Bilirubin Urine Negative Negative 9:15 PM CDT LABORATORY Ketones Urine Negative Negative mg/dL 09/27/2023 9:15 PM CDT LABORATORY Specific [place] Urine 1.013 1.003 - 1.035 09/27/2023 9:15 PM CDT LABORATORY Blood Urine Negative Negative 09/27/2023 9:15 PM CDT LABORATORY pH Urine 5.0 5.0 - 7.0 09/27/2023 9:15 PM CDT LABORATORY Protein Albumin Urine Negative Negative mg/dL 09/27/2023 9:15 PM CDT LABORATORY Urobilinogen Urine Normal Normal, 2.0 mg/dL 09/27/2023 9:15 PM CDT LABORATORY Nitrite Urine Negative Negative 09/27/2023 9:15 PM CDT LABORATORY Leukocyte Esterase Urine Small(A) Negative 09/27/2023 9:15 PM CDT LABORATORY Bacteria Urine Few(A) None Seen /HPF 09/27/2023 9:15 PM CDT LABORATORY Mucus Urine Present(A) None Seen /LPF 09/27/2023 9:15 PM CDT [facility] RBC Urine 0 <=2 /HPF 09/27/2023 9:15 PM CDT [facility] WBC Urine 2 <=5 /HPF 09/27/2023 9:15 PM CDT [facility] Squamous Epithelials Urine <1 <=1 /HPF 09/27/2023 9:15 PM CDT [facility] Hyaline Casts Urine 1 <=2 /LPF 09/27/2023 9:15 PM CDT [facility] Urine MID-STREAM URINE SPECIMEN / Unknown Non-blood Collection / Unknown 09/27/2023 8:59 PM CDT 09/27/2023 9:06 PM CDT Narrative [facility] - 09/27/2023 9:15 PM CDT Urine Culture not indicated us Neil Marsh MD LAB - URINE ORDERABLES Final Result [facility] [address] [facility] (1st floor, no room number) [place] [address], [facility] from Last 3 Months or Most Recently Relevant to Health Maintenance Insurance MEDICARE MEDICARE MEDICARE [facility] MEDICARE MEDICARE MEDICARE [employer] [place] [employer] Advance Directives For more information, please contact: [phone] * Full Code (Latest Code Status on File) Date Activated Date Inactivated Comments 01/27/2024 8:00 PM 01/28/2024 2:50 PM All basic and advanced life-sustaining interventions are performed as appropriate Question Answer Comments Code status determined by: Discussion with patie nt/ legal decision maker * Full Code Date Activated Date Inactivated Comments 09/03/2023 5:16 [...] patie nt/ legal decision maker Care Teams Weight Reducing Technician Relationship Specialty Start Date End Date Kyra Perera [address] [place] [address] PCP - General Physician Sample Hand 03/31/22 Angel Hollins MD [address] [address] Neurology 07/20/23 Petra Dorado PA [address] [place] [address] Physician Sample Hand Physical Medicine and Rehabilitation 07/20/23 Angel Hollins MD [address] [address] Assigned Neuroscience Provider 08/03/23 Yves Ballard MD [address] [facility] [address] [id number] Assigned Heart and Vascular Provider 12/04/23
--- OUTSIDE RECORDS SUMMARY | 2024-04-08 00:56 | XMS_ITS | Referral Summary ---
Author Organization [place] Address [address] [facility] [address] Care Team Providers Care Book Cutter Name Role Phone Kyra Perera Primary Care Provider Angel Hollins MD Unavailable Petra Dorado Unavailable [phone] Angel Hollins MD Unavailable Yves Ballard MD Unavailable Encounters Date Type Department Care Team Description 02/29/2024 4:20 PM MECHANIC FIELD SERVICE Virtual Visit [facility] [place] [address] [facility] [place] [phone] Yves Ballard MD Hypertension, unspecified type; Atherosclerosis of abdominal aorta; Hx of Cerebrovascular accident (CVA), (H); Hyperlipidemia LDL goal <70; Statin intolerance; Lymphedema 02/26/2024 Travel 02/26/2024 1:30 PM MECHANIC FIELD SERVICE Therapy Visit [facility] [address] [address] Kyra Perera Matthew M, PAM Cerebrovascular accident (CVA) due to thrombosis of left middle cerebral artery (H) (Primary Dx); Activity of daily living alteration 02/21/2024 MyC Medical Advice [facility] [address] 3rd [place] [phone] Angel Hollins MD 02/20/2024 8:30 AM MECHANIC FIELD SERVICE Lab [facility] [address] [place] [address] Hyperlipidemia LDL goal <70 02/19/2024 Travel 02/19/2024 2:15 PM MECHANIC FIELD SERVICE Therapy Visit [address] [address] Kyra Perera Matthew M, OT Cerebrovascular accident (CVA) due to thrombosis of left middle cerebral artery (H) (Primary Dx); Activity of daily living alteration 01/27/2024 3:06 PM MECHANIC FIELD SERVICE - 01/28/2024 12:30 PM MECHANIC FIELD SERVICE Emergency [place] [address] [facility] [address] [place] [address] Luis Armando Dietz MD Ricklefs, Kendall D, DO Alteration in neurologic function (Primary Dx); History of stroke; Dysarthria; Facial droop; Elevated blood pressure reading with diagnosis of hypertension; Neck pain; Hypertensive urgency Discharge Disposition: Home or Self Care 01/27/2024 Travel 01/22/2024 Travel 01/22/2024 1:30 PM MECHANIC FIELD SERVICE Therapy Visit [address] [address] Kyra Perera Erin, JESSICA Cerebrovascular accident (CVA) due to thrombosis of left middle cerebral artery (H) (Primary Dx) 01/22/2024 2:15 PM MECHANIC FIELD SERVICE Therapy Visit [address] [address] Kyra Perera Matthew M, OT Cerebrovascular accident (CVA) due to thrombosis of left middle cerebral artery (H) (Primary Dx); Activity of daily living alteration 01/19/2024 Travel 01/19/2024 2:00 PM MECHANIC FIELD SERVICE Therapy Visit [address] [address] Kyra Perera Matthew A Lymphedema (Primary Dx) 01/15/2024 Travel 01/15/2024 3:00 PM MECHANIC FIELD SERVICE Therapy Visit [address] [phone] Kyra Perera Erin, PT Cerebrovascular accident (CVA) due to thrombosis of left middle cerebral artery (H) (Primary Dx) 01/15/2024 2:15 PM MECHANIC FIELD SERVICE Therapy Visit [address] [address] Kyra Perera Matthew M, OT Cerebrovascular accident (CVA) due to thrombosis of left middle cerebral artery (H) (Primary Dx); Activity of daily living alteration 01/08/2024 Travel 01/08/2024 11:15 AM CDT Therapy Visit [address] [address] Kyra Perera Matthew M, OT Cerebrovascular accident (CVA) due to thrombosis of left middle cerebral artery (H) (Primary Dx); Activity of daily living alteration from Last 3 Months Allergies Active Allergy [...] of cervical intervertebral disc Raynaud's syndrome 01/02/2007 Social History Tobacco Use Types Packs/Day Years [...] on file Legal Sex Female 3:34 AM MECHANIC FIELD SERVICE Gender Identity Not on file Sexual Orientation Not on file Last Filed Vital Signs Vital Sign Reading Time Taken Comments Blood Pressure 160/93 01/28/2024 10:37 AM MECHANIC FIELD SERVICE Pulse 77 01/28/2024 10:37 AM MECHANIC FIELD SERVICE Temperature 36.8 C (98.3 F) 01/28/2024 10:37 AM MECHANIC FIELD SERVICE Respiratory Rate 20 01/28/2024 10:3 7 AM MECHANIC FIELD SERVICE Oxygen Saturation 96% 01/28/2024 10: 37 AM MECHANIC FIELD SERVICE Inhaled Oxygen Concentration - - Weight 62.9 kg (138 lb 11.4 oz) 024 10:05 PM MECHANIC FIELD SERVICE Height 157.5 cm (5' 2) 01/27/2024 10:0 5 PM MECHANIC FIELD SERVICE Body Mass Index 25.37 01/27/2024 10:05 PM MECHANIC FIELD SERVICE Plan of Treatment Not on file Procedures Procedure Name Priority Date/Time Associated Diagnosis Comments CK TOTAL Routine 02/20/2024 8:29 AM MECHANIC FIELD SERVICE Hyperlipidemia LDL goal <70 COMPREHENSIVE METABOLIC PANEL Routine 02/20/2024 8:29 AM MECHANIC FIELD SERVICE Hyperlipidemia LDL goal <70 LIPID REFLEX TO DIRECT LDL PANEL Routine 02/20/2024 8:29 AM MECHANIC FIELD SERVICE Hyperlipidemia LDL goal <70 ECHO COMPLETE Routine 01/28/2024 9:20 AM MECHANIC FIELD SERVICE MR BRAIN W/O & W CONTRAST STAT 01/27/2024 5:41 PM MECHANIC FIELD SERVICE EKG 12-LEAD, TRACING ONLY STAT 01/27/2024 3:43 PM MECHANIC FIELD SERVICE CTA HEAD NECK W CONTRAST STAT 01/27/2024 3:[address] HEAD W/O CONTRAST STAT 01/27/2024 3:19 PM MECHANIC FIELD SERVICE CBC WITH PLATELETS & DIFFERENTIAL STAT 01/27/2024 3:13 PM MECHANIC FIELD SERVICE LDL CHOLESTEROL DIRECT Routine 3:13 PM MECHANIC FIELD SERVICE HEMOGLOBIN A1C Add-On 01/27/2024 3:13 PM MECHANIC FIELD SERVICE LIPID REFLEX TO DIRECT LDL PANEL Add-On 01/27/2024 3:13 PM MECHANIC FIELD SERVICE EXTRA RED TOP TUBE STAT 01/27/2024 3: 13 PM MECHANIC FIELD SERVICE CBC WITH PLATELETS AND DIFFERENTIAL STAT 01/27/2024 3:13 PM MECHANIC FIELD SERVICE EXTRA TUBE STAT 01/27/2024 3:13 PM MECHANIC FIELD SERVICE TROPONIN T, HIGH SENSITIVITY STAT 01/27/2024 3:13 PM MECHANIC FIELD SERVICE PARTIAL THROMBOPLASTIN TIME STAT 01/27/2024 3:13 PM MECHANIC FIELD SERVICE INR STAT 01/27/2024 3:13 PM MECHANIC FIELD SERVICE BASIC METABOLIC PANEL STAT 01/27/2024 3:13 PM MECHANIC FIELD SERVICE GLUCOSE BY METER STAT 01/27/2024 3:03 PM MECHANIC FIELD SERVICE ROUTINE UA WITH MICROSCOPIC REFLEX TO CULTURE STAT 09/27/2023 8:59 PM CDT from Last 3 Months or Most Recently Relevant to Health Maintenance Results * (ABNORMAL) Lipid panel reflex to direct LDL Fasting (02/20/2024 8:29 AM MECHANIC FIELD SERVICE) Only the most recent of2 resultswithin the time period is included. Cholesterol 237(H) <200 mg/dL 02/20/2024 4:11 PM MECHANIC FIELD SERVICE [facility] Triglycerides 208(H) <150 mg/dL 02/20/2024 4:11 PM MECHANIC FIELD SERVICE [facility] Direct Measure HDL 47(L) >=50 mg/dL 02/20/2024 4:11 PM MECHANIC FIELD SERVICE [facility] LDL Cholesterol Calculated 148(H) <100 mg/dL 02/20/2024 4:11 PM MECHANIC FIELD SERVICE [facility] Non HDL Cholesterol 190(H) <130 mg/dL 02/20/2024 4:11 PM MECHANIC FIELD SERVICE [facility] Patient Fasting > 8hrs? Yes 02/20/2024 4:11 PM MECHANIC FIELD SERVICE [facility] Blood BLOOD SPECIMEN / Unknown Venipuncture / Unknown 02/20/2024 8:29 AM MECHANIC FIELD SERVICE 02/20/2024 8:29 AM MECHANIC FIELD SERVICE Narrative [facility] - 02/20/2024 4:11 PM MECHANIC FIELD SERVICE Cholesterol Desirable: < 200 mg/dL Borderline High: [...] BLOOD ORDERABL ES Final Result [facility] [address] [facility], Room [address] [place] [phone] * (ABNORMAL) Comprehensive metabolic panel (02/20/2024 8:29 AM MECHANIC FIELD SERVICE) Sodium 142 135 - 145 mmol/L 02/20/2024 4:11 PM MECHANIC FIELD SERVICE [facility] Potassium 4.5 3.4 - 5.3 mmol/L 02/20/2024 4:11 PM MECHANIC FIELD SERVICE [facility] Carbon Dioxide (CO2) 26 22 - 29 mmol/L 02/20/2024 4:11 PM MECHANIC FIELD SERVICE [facility] Anion Gap 11 7 - 15 mmol/L 02/20/2024 4:11 PM MECHANIC FIELD SERVICE [facility] Urea Nitrogen 16.2 8.0 - 23.0 mg/dL 02/20/2024 4:11 PM MECHANIC FIELD SERVICE [facility] Creatinine 0.69 0.51 - 0.95 mg/dL 02/20/2024 4:11 PM MECHANIC FIELD SERVICE [facility] GFR Estimate >90 >60 mL/min/1.7 3m2 02/20/2024 4:11 PM MECHANIC FIELD SERVICE [facility] Comment:eGFR calculated us2020 CKD-EPI equation. Calcium 9.8 8.8 - 10.4 mg/dL 02/20/2024 4:11 PM MECHANIC FIELD SERVICE [facility] Comment:Reference intervals for this test were updated on 09/26/2023 to reflect our healthy population more accurately. There may be differences in the flagging of prior results with similar values performed with this method. Those prior results can be interpreted in the context of the updated reference intervals. Chloride 105 98 - 107 mmol/L 02/20/2024 4:11 PM MECHANIC FIELD SERVICE [facility] Glucose 103(H) 70 - 99 mg/dL 02/20/2024 4:11 PM MECHANIC FIELD SERVICE [facility] Alkaline Phosphatase 81 40 - 150 U/L 02/20/2024 4:11 PM MECHANIC FIELD SERVICE [facility] AST 26 0 - 45 U/L 02/20/2024 4:11 PM MECHANIC FIELD SERVICE [facility] ALT 23 0 - 50 U/L 02/20/2024 4:11 PM MECHANIC FIELD SERVICE [facility] Protein Total 7.2 6.4 - 8.3 g/dL 02/20/2024 4:11 PM MECHANIC FIELD SERVICE [facility] Albumin 4.4 3.5 - 5.2 g/dL 02/20/2024 4:11 PM MECHANIC FIELD SERVICE [facility] Bilirubin Total 0.4 <=1.2 mg/dL 02/20/2024 4:11 PM MECHANIC FIELD SERVICE [facility] Patient Fasting > 8hrs? Yes 02/20/2024 4:11 PM MECHANIC FIELD SERVICE [facility] Blood BLOOD SPECIMEN / Unknown Venipuncture / Unknown 02/20/2024 8:29 AM MECHANIC FIELD SERVICE 02/20/2024 8:29 AM MECHANIC FIELD SERVICE us Yves Ballard MD LAB - BLOOD ORDERABL ES Final Result [facility] [address] [facility] [address], [address] [place] [phone] * CK total (02/20/2024 8:29 AM MECHANIC FIELD SERVICE) CK 48 26 - 192 U/L 02/20/2024 4:11 PM MECHANIC FIELD SERVICE [facility] Blood BLOOD SPECIMEN / Unknown Venipuncture / Unknown 02/20/2024 8:29 AM MECHANIC FIELD SERVICE 02/20/2024 8:29 AM MECHANIC FIELD SERVICE us Yves Ballard MD LAB - BLOOD ORDERABL ES Final Result [facility] [address] [facility], [address] [place], [place] [phone] [address] * ECHO COMPLETE (01/28/2024 9:20 AM MECHANIC FIELD SERVICE) LVEF 55-60% CARDIOLOGY RESULTS Anatomical Region Laterality Modality Echocardiography 01/28/2024 9:12 AM MECHANIC FIELD SERVICE Narrative 01/28/2024 10:40 AM MECHANIC FIELD SERVICE [id number]^LORRAINE^MARIELENA^[facility] Echocardiography Laboratory [address] [place] [address] Name: MIYA CHOW : 1950 Study Date: 01/28/2024 09:12 AM Age: 73 yrs Gender: Female Patient Location: [facility] Reason For Study: TIA Ordering Physician: MARIELENA PETERS Performed By: Kain uBrnham RDCS BSA: 1.6 m2 Height: 62 in [...] Procedure Note Sandie Perez MD - 01/28/2024 [id number]^LORRAINE^MARIELENA^[facility] Echocardiography Laboratory [address] [place] [address] Name: MIYA CHOW : 1950 Study Date: 01/28/2024 09:12 AM Age: 73 yrs Gender: Female Patient Location: [facility] Reason For Study: TIA [...] w/o & w Contrast (01/27/2024 5:41 PM MECHANIC FIELD SERVICE) Anatomical Region Laterality Modality Head, SUBRAD MR NEURO, UMP MR NEURO, RAD MR Magnetic Resonance 01/27/2024 5:41 PM MECHANIC FIELD SERVICE Impressions 01/27/2024 5:55 PM MECHANIC FIELD SERVICE IMPRESSION: 1. No acute infarct. 2. Chronic intracranial changes described above. Narrative 01/27/2024 5:55 PM MECHANIC FIELD SERVICE EXAM: MR BRAIN W/O and W CONTRAST LOCATION: [facility] DATE: 01/27/2024 INDICATION: eval for stroke, Headache, [...] MR BRAIN W/O and W CONTRAST LOCATION: [facility] DATE: 01/27/2024 INDICATION: eval for stroke, Headache, [...] EKG 12-lead, tracing only (01/27/2024 3:43 PM MECHANIC FIELD SERVICE) Systolic Blood Pressure mmHg RADIOLOGY RESULTS Diastolic Blood Pressure mmHg RADIOLOGY RESULTS Ventricular Rate 70 BPM RAD IOLOGY RESULTS Atrial Rate 70 BPM RADIOLOG Y RESULTS AR Interval 162 ms RADIOLOG Y RESULTS QRS Duration 80 ms RADIOLO GY RESULTS QT 386 ms RADIOLOGY RESULTS QTc 416 ms RADIOLOGY RESULTS P [place] 49 degrees RADIOLOGY RESULTS R AXIS 10 degrees RADIOLOGY RESULTS T [place] 28 degrees RADIOLOGY RESULTS Interpretation ECG Sinus rhythm Minimal voltage criteria for LVH, may be normal variant ( R in aVL ) Borderline ECG When compared with ECG of 27-Sep-2023 20:06, No significant change was found Confirmed by - EMERGENCY ROOM, PHYSICIAN ([id number]), legal editor TERRENCE JONES (Tianna) on 01/29/2024 7:06:56 AM RADIOLOGY RESULTS 01/27/2024 3:43 PM MECHANIC FIELD SERVICE 01/29/2024 7:06 AM MECHANIC FIELD SERVICE us Luis Armando Dietz MD ECG ORDERABLES Edited Resul t - Final RADIOLOGY RESULTS * CTA Head Neck with Contrast (01/27/2024 3:27 PM MECHANIC FIELD SERVICE) Anatomical Region Laterality Modality Head, SUBRAD CT NEURO, SUBRA D CT NEURO, UMP CT NEURO, RAD CT Computed Tomography 01/27/2024 3:27 PM MECHANIC FIELD SERVICE Impressions 01/27/2024 3:53 PM MECHANIC FIELD SERVICE IMPRESSION: HEAD CT: 1. 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 DURAL VENOUS SINUSES: Expected enhancement of the [...] W CONTRAST, CT HEAD W/O CONTRAST LOCATION: [facility] DATE: 01/27/2024 INDICATION: Code Stroke to evaluate [...] CIRCULATION: Unchanged severe multifocal stenosis of the [id number] of the right MCA and mild stenosis of the M1 segment of the rightMCA. Severe stenosis of the proximal A1 segment of the left DARIUSZ, now witha short segment of complete nonopacification. POSTERIOR CIRCULATION: Unchanged appearance of the mildly bulbous basilartip. No discrete aneurysm. 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 DURAL VENOUS SINUSES: Expected enhancement of the [...] findings discussed with Dr. Dietz on 01/27/2024 [id number] and CTA discussed at 1547 Luis Armando Dietz MD [facility] ORDERABLES Final Resu lt * CT Head w/o Contrast (01/27/2024 3:19 PM MECHANIC FIELD SERVICE) Anatomical Region Laterality Modality Head, SUBRAD CT NEURO, SUBRA D CT NEURO, UMP CT NEURO, RAD CT Computed Tomography 01/27/2024 3:19 PM MECHANIC FIELD SERVICE Impressions 01/27/2024 3:53 PM MECHANIC FIELD SERVICE IMPRESSION: HEAD CT: 1. 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 DURAL VENOUS SINUSES: Expected enhancement of the [...] W CONTRAST, CT HEAD W/O CONTRAST LOCATION: [facility] DATE: 01/27/2024 INDICATION: Code Stroke to evaluate [...] CIRCULATION: Unchanged severe multifocal stenosis of the [id number] of the right MCA and mild stenosis of the M1 segment of the rightMCA. Severe stenosis of the proximal A1 segment of the left DARIUSZ, now witha short segment of complete nonopacification. POSTERIOR CIRCULATION: Unchanged appearance of the mildly bulbous basilartip. No discrete aneurysm. 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 DURAL VENOUS SINUSES: Expected enhancement of the [...] findings discussed with Dr. Dietz on 01/27/2024 [id number] and CTA discussed at 1547 Luis Armando Dietz MD [facility] ORDERABLES Final Resu lt * Extra Red Top Tube (01/27/2024 3:13 PM MECHANIC FIELD SERVICE) [facility] Hold Specimen [facility] 01/27/2024 4:32 PM MECHANIC FIELD SERVICE LABORATORY Blood BLOOD SPECIMEN / Unknown Venipuncture / Unknown 01/27/2024 3:13 PM MECHANIC FIELD SERVICE 01/27/2024 3:17 PM MECHANIC FIELD SERVICE us Jarvis Trevizo MD LAB - BLOOD ORDERABLES Fi nal Result [facility] Lab [address] Lab (1st floor, no room number) [place] [address], [facility] * (ABNORMAL) CBC with platelets and differential (01/27/2024 3:13 PM MECHANIC FIELD SERVICE) WBC Count 5.2 4.0 - 11.0 10e3/uL 01/27/2024 3:21 PM MECHANIC FIELD SERVICE [facility] RBC Count 5.25(H) 3.80 - 5.20 10e6/uL 01/27/2024 3:21 PM MECHANIC FIELD SERVICE [facility] Hemoglobin 15.5 11.7 - 15.7 g/dL 01/27/2024 3:21 PM MECHANIC FIELD SERVICE [facility] Hematocrit 46.9 35.0 - 47.0 % 01/27/2024 3:21 PM MECHANIC FIELD SERVICE [facility] MCV 89 78 - 100 fL 01/27/2024 3:21 PM MECHANIC FIELD SERVICE [facility] MCH 29.5 26.5 - 33.0 pg 01/27/2024 3:21 PM MECHANIC FIELD SERVICE [facility] MCHC 33.0 31.5 - 36.5 g/dL 01/27/2024 3:21 PM MECHANIC FIELD SERVICE [facility] RDW 12.8 10.0 - 15.0 % 01/27/2024 3:21 PM MECHANIC FIELD SERVICE [facility] Platelet Count 215 150 - 450 10e3/uL 01/27/2024 3:21 PM MECHANIC FIELD SERVICE [facility] % Neutrophils 56 % 01/27/2024 3:21 PM MECHANIC FIELD SERVICE [facility] % Lymphocytes 31 % 01/27/2024 3:21 PM MECHANIC FIELD SERVICE [facility] % Monocytes 10 % 01/27/2024 3:21 PM MECHANIC FIELD SERVICE [facility] % Eosinophils 2 % 01/27/2024 3:21 PM MECHANIC FIELD SERVICE [facility] % Basophils 0 % 01/27/2024 3:21 PM MECHANIC FIELD SERVICE [facility] % Immature Granulocytes 0 % 01/27/2024 3:21 PM MECHANIC FIELD SERVICE [facility] NRBCs per 100 WBC 0 <1 /100 024 3:21 PM MECHANIC FIELD SERVICE [facility] Absolute Neutrophils 2.9 1.6 - 8.3 10e3/uL 01/27/2024 3:21 PM MECHANIC FIELD SERVICE [facility] Absolute Lymphocytes 1.6 0.8 - 5.3 10e3/uL 01/27/2024 3:21 PM MECHANIC FIELD SERVICE [facility] Absolute Monocytes 0.5 0.0 - 1.3 10e3/uL 01/27/2024 3:21 PM MECHANIC FIELD SERVICE [facility] Absolute Eosinophils 0.1 0.0 - 0.7 10e3/uL 01/27/2024 3:21 PM MECHANIC FIELD SERVICE [facility] Absolute Basophils 0.0 0.0 - 0.2 10e3/uL 01/27/2024 3:21 PM MECHANIC FIELD SERVICE [facility] Absolute Immature Granulocytes 0.0 <=0.4 10e3/uL 01/27/2024 3:21 PM MECHANIC FIELD SERVICE [facility] Absolute NRBCs 0.0 10e3/uL 01/27/2024 3:21 PM MECHANIC FIELD SERVICE [facility] Blood BLOOD SPECIMEN / Unknown Venipuncture / Unknown 01/27/2024 3:13 PM MECHANIC FIELD SERVICE 01/27/2024 3:17 PM MECHANIC FIELD SERVICE Luis Armando Dietz MD LAB - BLOOD ORDERABLES Final Result LABORATORY [facility] Acute Care Lab [address] [facility] Lab (1st floor, no room number) [place] [address], [facility] * Troponin T, High Sensitivity (01/27/2024 3:13 PM MECHANIC FIELD SERVICE) Troponin T, High Sensitivity 7 <=14 ng/L 01/27/2024 3:43 PM MECHANIC FIELD SERVICE [facility] Comment: Either a High Sensitivity [...] Unknown Venipuncture / Unknown 01/27/2024 3:13 PM MECHANIC FIELD SERVICE 01/27/2024 3:17 PM MECHANIC FIELD SERVICE us Luis Armando Dietz MD LAB - BLOOD ORDERABLES Final Result [facility] Acute Care Lab [address] Lab (1st floor, no room number) [place] [phone] [place] [address] * INR (01/27/2024 3:13 PM MECHANIC FIELD SERVICE) INR 0.93 0.85 - 1.15 01/27/2024 3:37 PM MECHANIC FIELD SERVICE LABORATORY Blood BLOOD SPECIMEN / Unknown Venipuncture / Unknown 01/27/2024 3:13 PM MECHANIC FIELD SERVICE 01/27/2024 3:17 PM MECHANIC FIELD SERVICE us Luis Armando Dietz MD LAB - BLOOD ORDERABLES Final Result Performing Organization Address City/[facility]/ZIP Co de Phone Number [facility] Lab [address] Lab (1st floor, no room number) [place] [phone], [facility] * Partial thromboplastin time (01/27/2024 3:13 PM MECHANIC FIELD SERVICE) aPTT 32 22 - 38 Seconds 01/27/2024 3:37 PM MECHANIC FIELD SERVICE LABORATORY Blood BLOOD SPECIMEN / Unknown Venipuncture / Unknown 01/27/2024 3:13 PM MECHANIC FIELD SERVICE 01/27/2024 3:17 PM MECHANIC FIELD SERVICE us Luis Armando Dietz MD LAB - BLOOD ORDERABLES Final Result [facility] [address] Lab (1st floor, no room number) [place] [address], [facility] * (ABNORMAL) LDL cholesterol direct (01/27/2024 3:13 PM MECHANIC FIELD SERVICE) LDL Cholesterol Direct 142(H) <100 mg/dL 01/28/2024 1:47 AM MECHANIC FIELD SERVICE [facility] Comment: Age 2-19 years: Desirable: < 110 mg/dL Borderline High: 110-129 mg/dL High: >= 130 mg/dL Age 20 years and older: Desirable: < 100 mg/dL Above Desirable: 100-129 mg/dL Borderline High: 130-159 mg/dL High: 160-189 mg/dL Very High: >= 190 mg/dL Blood BLOOD SPECIMEN / Unknown Venipuncture / Unknown 01/27/2024 3:13 PM MECHANIC FIELD SERVICE 01/27/2024 3:17 PM MECHANIC FIELD SERVICE Marielena Peters PA-C LAB - BLOOD ORDERABLES Fin al Result LABORATORY [facility] [address] [facility], [address] [place] [address] * (ABNORMAL) Hemoglobin A1c (01/27/2024 3:13 PM MECHANIC FIELD SERVICE) Estimated Average Glucose 126(H) <117 mg/dL 01/27/2024 8:39 PM MECHANIC FIELD SERVICE LABORATORY Hemoglobin A1C 6.0(H) <5.7 % 01/27/2024 8:39 PM MECHANIC FIELD SERVICE LABORATORY Comment: Normal <5.7% Prediabetes 5.7-6.4% Diabetes 6.5% or higher Note: Adopted from ADA consensus guidelines. Blood BLOOD SPECIMEN / Unknown Venipuncture / Unknown 01/27/2024 3:13 PM MECHANIC FIELD SERVICE 01/27/2024 3:17 PM MECHANIC FIELD SERVICE Marielena Peters PA-C LAB - BLOOD ORDERABLES Fin al Result LABORATORY [facility] Acute Care Lab [address] Lab (1st floor, no room number) [place] [address] * (ABNORMAL) Basic metabolic panel (01/27/2024 3:13 PM MECHANIC FIELD SERVICE) Sodium 140 135 - 145 mmol/L 01/27/2024 3:43 PM MECHANIC FIELD SERVICE LABORATORY Potassium 4.0 3.4 - 5.3 mmol/L 01/27/2024 3:43 PM MECHANIC FIELD SERVICE LABORATORY Chloride 102 98 - 107 mmol/L 01/27/2024 3:43 PM MECHANIC FIELD SERVICE LABORATORY Carbon Dioxide (CO2) 25 22 - 29 mmol/L 01/27/2024 3:43 PM [facility] Anion Gap 13 7 - 15 mmol/L 01/27/2024 3:43 PM MECHANIC FIELD SERVICE LABORATORY Urea Nitrogen 17.2 8.0 - 23.0 mg/dL 01/27/2024 3:43 PM MECHANIC FIELD SERVICE LABORATORY Creatinine 0.65 0.51 - 0.95 mg/dL 01/27/2024 3:43 PM MECHANIC FIELD SERVICE LABORATORY GFR Estimate >90 >60 mL/min/1.7 3m2 01/27/2024 3:43 PM MECHANIC FIELD SERVICE LABORATORY Comment:eGFR calculated usin 2020 CKD-EPI equation. Calcium 9.6 8.8 - 10.4 mg/dL 01/27/2024 3:43 PM [facility] Comment:Reference intervals for this test were updated on 09/26/2023 to reflect our healthy population more accurately. There may be differences in the flagging of prior results with similar values performed with this method. Those prior results can be interpreted in the context of the updated reference intervals. Glucose 118(H) 70 - 99 mg/dL 01/27/2024 3:43 PM MECHANIC FIELD SERVICE LABORATORY Blood BLOOD SPECIMEN / Unknown Venipuncture / Unknown 01/27/2024 3:13 PM MECHANIC FIELD SERVICE 01/27/2024 3:17 PM MECHANIC FIELD SERVICE us Luis Armando Dietz MD LAB - BLOOD ORDERABLES Final Result LABORATORY [facility] Acute Care Lab [address] [facility] Lab (1st floor, no room number) [place] [address], [facility] * (ABNORMAL) Glucose by meter (01/27/2024 3:03 PM MECHANIC FIELD SERVICE) GLUCOSE BY METER POCT 110(H) 70 - 99 mg/dL 01/27/2024 3:10 PM MECHANIC FIELD SERVICE [facility] POC Comment:Dr/RN Notified Blood, Capillary BLOOD SPECIMEN / Unknown 01/27/2024 3:03 PM MECHANIC FIELD SERVICE 01/27/2024 3:10 PM MECHANIC FIELD SERVICE us Luis Armando Dietz MD LAB - BEAKER POCT Final Resu lt [facility] LAB[facility]ATORY POC [facility] Acute Care Lab [address] Lab (1st floor, no room number) [place] [address], [facility] * (ABNORMAL) UA with Microscopic reflex to Culture (09/27/2023 8:59 PM CDT) Color Urine Straw Colorless, Straw, Light Yellow, Yellow 09/27/2023 9:15 PM CDT LABORATORY Appearance Urine Clear Clear 09/27/19 24 9:15 PM CDT LABORATORY Glucose Urine Negative Negative mg/dL 09/27/2023 9:15 PM CDT [facility] Bilirubin Urine Negative Negative 9:15 PM CDT [facility] Ketones Urine Negative Negative mg/dL 09/27/2023 9:15 PM CDT LABORATORY Specific [place] Urine 1.013 1.003 - 1.035 09/27/2023 9:15 PM CDT [facility] Blood Urine Negative Negative 09/27/2023 9:15 PM CDT LABORATORY pH Urine 5.0 5.0 - 7.0 09/27/2023 9:15 PM CDT [facility] LAB[facility] Protein Albumin Urine Negative Negative mg/dL 09/27/2023 9:15 PM CDT [facility] Urobilinogen Urine Normal Normal, 2.0 mg/dL 09/27/2023 9:15 PM CDT [facility] Nitrite Urine Negative Negative 09/27/2023 9:15 PM CDT [facility] Leukocyte Esterase Urine Small(A) Negative 09/27/2023 9:15 PM CDT [facility] LAB[facility] Bacteria Urine Few(A) None Seen /HPF [...] MD LAB - URINE ORDERABLES Final Result LABORATORY [facility] [address] Lab (1st floor, no room number) [place] [address], [facility] from Last 3 Months or Most Recently Relevant to Health Maintenance Insurance MEDICARE MEDICARE MEDICARE [facility] MEDICARE MEDICARE MEDICARE BC[employer] [place] BLUE Advance Directives For more information, please contact: [phone] * Full Code (Latest Code Status on [...] patie nt/ legal decision maker Care Teams Book Cutter Relationship Specialty Start Date End Date Kyra Perera [address] [place] [address] PCP - General Physician Software Integrator 03/31/22 Angel Hollins MD [address] [address] Neurology 07/20/23 Petra Dorado PA [address] [place], [place] [address] Physician Software Integrator Physical Medicine and Rehabilitation 07/20/23 Angel Hollins MD [address] [address] Assigned Neuroscience Provider 08/03/23 Yves Ballard MD [address] [place] [address] Assigned Heart and Vascular Provider 12/04/23
--- OUTSIDE RECORDS SUMMARY | 2024-04-08 00:57 | XMS_ITS | Encounter Summary ---
Author Organization [place] Address [address] [place] [address]. [place] [address] Care Team Providers Care Senior Living Advisor Name Role Phone GwenPramod farahflavio Bell Primary Care Provider [phone] Angel Hollins MD Unavailable Petra Dorado Unavailable [phone] Angel Hollins MD Unavailable Yves Ballard MD Unavailable + [phone] Encounter Details Date Type Department Care Team (Late st Contact Info) Description 02/21/2024 [facility] [address] [place] [address] Angel Hollins MD [address] [place] [address] [id number] [place], [place] [id number] Social History Tobacco Use Types Packs/Day Years [...] on file 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 Gender Identity Not on file Sexual Orientation Not on file documented as of this encounter Plan of Treatment Not on file documented as of this encounter Visit Diagnoses Not on filedocumented in this encounter Care Teams Senior Living Advisor Relationship Specialty Start Date End Date Kyra Perera [address] [place] [address] PCP - General Physician Shovel Oiler 03/31/22 Angel Hollins MD [address] [address] Neurology 07/20/23 Petra Dorado PA [address] [place] [address] Physician Shovel Oiler Physical Medicine and Rehabilitation 07/20/23 Angel Hollins MD [address] [address] Assigned Neuroscience Provider 08/03/23 Yves Ballard MD [address] [facility] [address] [place] [address] Assigned Heart and Vascular Provider 12/04/23 documented as of this encounter
--- OUTSIDE RECORDS SUMMARY | 2024-04-08 00:57 | XMS_ITS | Encounter Summary ---
Author Organization [place] Address [address] [place] [address] Care Team Providers Care Garment Manufacturing Supervisor Name Role Phone Kyra Perera Primary Care Provider [phone] Angel Hollins MD Unavailable Petra Dorado Unavailable [phone] Angel Hollins MD Unavailable Yves Ballard MD Unavailable + [phone] Reason for Visit * Reason Onset Date Comments Patient Request 10/18/2023 Encounter Details Date Type Department Care Team (Late st Contact Info) Description 10/18/2023 [facility] [address] [place] [address] Angel Hollins MD [address] [place] [address] [id number] [place] [address] Patient Request Social History Tobacco Use Types Packs/Day Years [...] on file 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 Gender Identity Not on file Sexual Orientation Not on file documented as of this encounter Miscellaneous Notes * Telephone Encounter - Melissa Hill - 10/18/2023 12:45 PM CDT [facility] Who is the name of the provider?: ANGEL HOLLINS What is the location you see this provider at/preferred location?: [place] Person calling / Facility: Miya Restrepo Phone number: [phone] (home) Nurse call back needed: no Reason for call: Patient has a referral for scheduling Pharmacy location: [address] Outside Imaging: n/a Can we leave a detailed message on this number? YES 10/18/2023, 12:45 PM documented in this encounter Plan of Treatment Not on file documented as of this encounter Visit Diagnoses Not on filedocumented in this encounter Care Teams Garment Manufacturing Supervisor Relationship Specialty Start Date End Date Kyra Perera [address] [place] [address] PCP - General Physician Sketch Artist 03/31/22 Angel Hollins MD [address] [place] [address] Neurology 07/20/23 Petra Dorado PA [address] [address] Physician Sketch Artist Physical Medicine and Rehabilitation 07/20/23 Angel Hollins MD [address] [place] [address] Assigned Neuroscience Provider 08/03/23 Yves Ballard MD [address] [place] [address] Assigned Heart and Vascular Provider 12/04/23 documented as of this encounter
--- OUTSIDE RECORDS SUMMARY | 2024-04-08 00:57 | XMS_ITS | Clinical Summary ---
Author Organization [facility] Address [place], [place] [address] Care Team Providers Care Psychiatric Security Nurse Name Role Phone Kyra Perera Primary Care Provider Genaro Leonard MD Unavailable [phone] Janay Nunez MD Unavailable Carolyn Pisano Unavailable [...] lobster Shellfish Derived Angioedema High 05/11/2010 Lobster: Angioedema and severe stomach pain; has to go to ER when she ate lobster Had severe pain and swelling after lobster Lobster: Angioedema and severe stomach pain; has to go to ER when she ate lobster Sulfa (Sulfonamide Antibiotics) Hives High 05/22/2006 Verapamil Dyspnea High 05/02/2011 Hydrocodone-Acetaminophen Nausea And Vomiting 1 05/01/2011 Medications aspirin (ECOTRIN) 81 mg enteric coated tablet Daily 0 01/10/20 17 Active meclizine (ANTIVERT) 25 mg tabletIndications: Vertigo Take 1 tablet by mouth 3 times daily if needed. 30 tablet 1 08/15/19 19 Active ondansetron (ZOFRAN ODT) 4 mg disintegrating tabletIndications: Nausea DISSOLVE 1 TABLET ON TONGUE EVERY 6 HOURS NEEDED FOR VOMITING 30 Tablet 2 01/20/20 21 Active cholecalciferol (Vitamin D-3) 2,000 unit capsuleIndications :Vitamin D deficiency Take 2 Capsules (4,000 units) by mouth once daily. 0 07/26/20 22 Active famotidine (Pepcid AC) 10 mg tabletIndications: Mast cell activation syndrome (HC) Take 1 Tablet (10 mg) by mouth once daily. 11/22/19 23 Active fluticasone (50 mcg per actuation) nasal solution (FLONASE)Indicatio ns:Acute non-recurrent maxillary sinusitis INHALE 1-2 SPRAYS IN EACH NOSTRIL BY INTRANASAL ROUTE ONCE DAILY. 48 g 3 02/16/20 23 Active durable medical equipment (DME)Indications:L ymphedema Edema glove for daily use 2 Each 10/09/19 24 Active furosemide (LASIX) 20 mg tabletIndications: Hypertension, unspecified type every other morning. 45 Tablet 3 01/16/20 24 Active Additional Information Patient taking differently: 20 mg, Pt states taking 20mg twice a week., Reported on 03/25/2024 ALPRAZolam (XANAX) 0.25 mg tabletIndications: Anxiety state TAKE ONE-HALF TABLET BY MOUTH THREE TIMES DAILY NEEDED 60 Tablet 5 01/16/20 24 Active ezetimibe (ZETIA) 10 mg tabletIndications: Lipid disorder Take 0.5 Tablets (5 mg) by mouth once daily. 45 Tablet 3 01/16/20 24 Active Additional Information Patient taking differently:5 mg Oral DAILY,Pt states taking 5 mg every other day., Reported on 03/25/2024 metoprolol tartrate (LOPRESSOR) 25 mg tabletIndications: Hypertension, unspecified type Take 0.5 Tablets (12.5 mg) by mouth two times daily. 90 Tablet 1 01/16/20 24 Active diazePAM (VALIUM) 5 mg tabletIndications: Anxiety state TAKE 1/2-1 TABLETS BY MOUTH EVERY 6 HOURS NEEDED FOR ANXIETY. 20 Tablet 1 02/21/20 24 Active nitroglycerin (NITROSTAT) 0.4 mg sublingual tabletIndications: Chest pain in adult Place 1 Tablet (0.4 mg) under the tongue every 5 minutes if needed for Chest Pain. Patient tolerated in the past. 25 Tablet 5 02/21/20 24 Active telmisartan (MICARDIS) 20 mg tablet Take 10 mg by mouth two times daily. Active alirocumab (Praluent Pen) 75 mg/mL pnijIndications:Ce rebrovascular accident (CVA), unspecified mechanism (HC),Lipid disorder Inject subcutaneous. Inject 75 mg subcutaneous every 2 weeks. 6 mL 3 08/11/19 24 025 Discontin ued(*Avai lability/ Formulary change/Co st of medicatio n) Pitavastatin (Livalo) 2 mg tabIndications:Cer ebral infarction due to stenosis of left posterior cerebral artery (HC) Take 0.5 Tablets (1 mg) by mouth every Monday, and Monday. 30 Tablet 10/10/19 24 025 Discontin ued(*Avai lability/ Formulary change/Co st of medicatio n) olmesartan (BENICAR) 5 mg tabletIndications: Palpitations,Hyper tension,LVH (left ventricular hypertrophy),Cardi omyopathy, unspecified type (HC),Paroxysmal SVT (supraventricular tachycardia) (HC) Take 1 Tablet (5 mg) by mouth once daily. 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 At risk for hypothyroidism 02/15/2013 Overview (02/15/2013): + TPO: currently euthyroid The presence of [...] C) www.thyroid.org Screen for colon cancer 04/20/2012 Overview (04/20/2012): Colonoscopy 04/2012 normal repeat in 10 years Anxiety state, unspecified 05/05/2011 Lipid disorder 10/28/2010 Sphincter of Oddi dysfunction 08/19/2010 Esophageal reflux 03/22/2010 Overview (03/30/2010): EGD 03/2009 Reactive gastropathy Degeneration of cervical intervertebral disc Raynaud's syndrome 01/02/2007 Hypertension Resolved Problems Problem Noted Date Diagnosed Date Resolved Date Stage 3 chronic kidney disease 01/19/2021 04/07/2021 Cardiomyopathy 10/11/2019 04/07/2021 Closed Head Injury 05/21/2008 06/16/2008 09/08/2023 Overview (06/16/2008): Fell down stairs, didn't miss work, MRI normal except for small vessel white matter changes, now with headaches and fatigue (06/15/2008) Plantar fascial fibromatosis 02/09/2007 09/08/2023 Rosacea 01/02/2007 01/24/2007 Unspecified essential hypertension 09/08/2023 Encounters Date Type Department Care Team Description 03/25/2024 11:10 AM SUPPORT SERVICES REP Office Visit [facility] [address] [place] [address] Kyra Perera PA Follow Up 03/25/2024 Travel 03/07/2024 10:30 AM SUPPORT SERVICES REP Office Visit [facility] [address] [facility] [address] [place] [address] Janay Nunez MD Follow Up (3 Month F/U Please review Echo done at done in Nov. /Medication questions. ) 03/07/2024 Travel 02/28/2024 Telephone [facility] [address] [facility] [address] [place] [address] Junito Greer MD Referral (Ref. Dr. Janay Nunez on 12-29-23 for prevention consult w/ Dr. Greer or Dr. Howell w/ 12hr fasting labs 1-2wks prior.) 02/22/2024 Telephone [facility] [address] [facility] [address] Keo Escobar MD Results 02/22/2024 Telephone [facility] [address] [place] [address] Kyra Perera PA Medication Management (telmisartan (MICARDIS) 20 mg tablet //) 02/22/2024 Orders Only [facility] [address] [place] [address] Keo Escobar MD 1 scan: (1-Ord) [place], CERVICAL SPINE WO CONTRAST, 02/15/2024 02/21/2024 1:00 PM SUPPORT SERVICES REP Office Visit [facility] [address] [place] [address] Kyra Perera PA Hospital F/U (Post hospital visit) 02/21/2024 Travel 02/12/2024 Telephone [facility] [address] [place] [address] Kyra Perera PA Follow Up (APPOINTMENT AVAILABILITY) 02/07/2024 11:20 AM SUPPORT SERVICES REP Office Visit [facility] [address] [facility] [address] Keo Escobar MD Musculoskeletal Problem (Consult right arm pain/Patient does have neck MRI scheduled 02/16/24 through [place]) 02/07/2024 Travel 01/16/2024 9:30 AM SUPPORT SERVICES REP Office Visit [facility] [address] [facility] [address] Kyra Perera PA Arm Pain/problem (R arm pain, having a hard time moving it, hand is turning blue. Edema in hand. Needs an order for PT / OT) 01/16/2024 Travel from Last 3 Months Immunizations Name Administration Dates Next Due COVID-19 vaccine (Amna-J&J) REBA HOPKINS 1 Td, Preservative Free (age [...] 6 Hyperlipidemia Brother 7 Other Father d54 [place], liver e tom Cancer-breast Maternal Aunt Other Mother d86, heart and dm Cancer-breast Paternal Aunt Cancer-breast Paternal Grandmother Lung cancer Sister 1 Good Health Sister 2 possible brain aneurysm, htn Cancer-ovarian No Family History Relation Name Status Comments Brother 1 Alive [...] Answer Date Recorded PHQ-2 TOTAL SCORE 0 11/22/2023 Social Connections Answer Date Recorded Frequency of Communication with Friends and Fami ly 0 09/06/2021 Financial Resource Strain Answer Date R ecorded [...] Housing in the Last Year 1 09/06/2021 Comments No Sex and Gender Information Value Date Recorded Sex Assigned at Not on file Legal Sex Female 5:26 AM SUPPORT SERVICES REP Gender Identity Not on file Sexual Orientation Not on file Obstetrics History Last Filed Vital Signs Vital Sign Reading Time Taken Comments Blood Pressure 164/96 03/25/2024 11:22 AM SUPPORT SERVICES REP Pulse 74 03/25/2024 11:22 AM SUPPORT SERVICES REP Temperature 36.9 C (98.4 F) 02/07/2024 11:34 AM SUPPORT SERVICES REP Respiratory Rate 18 06/23/2023 11:23 AM CDT Oxygen Saturation 96% 03/25/2024 11:22 AM SUPPORT SERVICES REP Inhaled Oxygen Concentration - - Weight 62.6 kg (138 lb) 03/25/2024 11:22 AM SUPPORT SERVICES REP Height 157.5 cm (5' 2) 03/07/2024 10:35 AM SUPPORT SERVICES REP Body Mass Index 25.24 03/07/2024 10:35 AM SUPPORT SERVICES REP Plan of Treatment Upcoming Encounters Date Type Department Care Team (Late st Contact Info) Description 04/10/2024 10:40 AM SUPPORT SERVICES REP Office Visit [facility] [address] [place] [address] Keo Escobar MD [address] [place] [address] 04/11/2024 8:30 AM SUPPORT SERVICES REP Orders Only [facility] [address] [place] [address] Lab, [place] 04/16/2024 10:50 AM SUPPORT SERVICES REP Office Visit [facility] [address] [place] [address] Kyra Perera PA [address] [place] [address] 06/14/2024 11:30 AM CDT Office Visit [facility] [address] [place] [address] [address] [place] [address] Janay Nunez MD [address] [facility] [address] [place] [address] Health Maintenance Due Date Last Done Comments Pneumococcal series for age 50+ (1 of 2 - PCV) 1969 Zoster (shingles) series for age 50+ (1 of 2) 2000 RSV vaccine for adults or (1 - Risk 60-74 years 1-dose series) 2010 DEXA/DXA scan for age 65+ 06/21/2015 COVID-19 vaccine series (2023- season) 2023 03/16/2021, 05/23/2020 Influenza for age 65+ 11/12/2023 Mammogram for age 45-75 10/08/2024 10/09/19 24, 12/08/2021, 12/31/2020, Additional history exists Depression screening for age 12+ 11/21/2024 11/22/2023, 09/08/2023, 01/21/2022, Additional history exists Medicare Wellness for age 65+ 11/22/2024, 01/21/2022, 01/19/2021, Additional history exists BMI (ht and wt on same day) for age 18+ 03/07/2025 03/07/2024, 11/22/2023, 10/25/2023, Additional history exists Tetanus booster 11/09/2027 11/08/2017, 05/30/2007 Lipids for age 45-75 11/21/2028 11/22/2023, 10/23/2023, 09/22/2023, Additional history exists Colonoscopy through age 75 10/10/203210/10, 10/10/2022, 10/10/2022, Additional history exists Tdap Completed 05/30/2007 Hepatitis C screening for ag e 18-79 Completed 02/09/2016 Procedures Procedure Name Priority Date/Time Associated Diagnosis Comments MR SPINE CERVICAL WO Routine 02/15/2024 12:00 AM SUPPORT SERVICES REP DDD (degenerative disc disease), cervical Cervical radiculopathy LIPID PANEL W REFLEX MEASURED LDL Routine 11/22/2023 9:42 AM CDT Lipid disorder Cerebral infarction due to stenosis of left posterior cerebral artery (HC) Cerebrovascular accident (CVA), unspecified mechanism (HC) XR MAMMO ALEENA BILAT SCREEN Routine 10/09/2023 3:57 PM CDT Visit for screening mammogram COLONOSCOPY SCREENING Routine 10/10/2022 12:00 AM CDT Screen for colon cancer ANTI HCV Routine 02/09/2016 10:00 AM SUPPORT SERVICES REP Need for hepatitis C screening test from Last 3 Months or Most Recently Relevant to Health Maintenance Results * MR SPINE CERVICAL WO (02/15/2024 12:00 AM SUPPORT SERVICES REP) Anatomical Region Laterality Modality Spine, CERVICAL SPINE Magnetic R esonance us Keo Escobar MD MR Final Resu lt * (ABNORMAL) LIPID PANEL W REFLEX MEASURED LDL (11/22/2023 9:42 AM CDT) CHOLESTEROL,TOTAL 229(H) 100 - 199 mg/dL 11/22/2023 6:42 PM CDT [facility] Comment: Cholesterol, Total Reference Ranges Desirable <200 mg/dL Borderline 200-239 mg/dL High >=240 mg/dL TRIGLYCERIDES 187(H) <150 mg/dL 11/22/2023 6:42 PM CDT [facility] HDL CHOLESTEROL 50 >40 mg/dL 6:42 PM CDT [facility] NON-HDL CHOLESTEROL 179(H) <145 mg/dl 11/22/2023 6:42 PM CDT [facility] CHOL/HDL RATIO 4.58(H) <4.50 11/22/2023 6:42 PM CDT [facility] LDL CHOLESTEROL 142(H) <=130 mg/dL 11/22/2023 6:42 PM CDT [facility] VLDL CHOLESTEROL 37(H) <=30 mg/dL 11/22/2023 6:42 PM CDT [facility] PROVIDER ORDERED STATUS RANDOM 11/22/2023 6:42 PM CDT [facility] Blood BLOOD SPECIMEN / Unknown Venipuncture / Unknown 11/22/2023 9:42 AM CDT 11/22/2023 9:43 AM CDT Kyra ANTHONY CHEMISTRY Final R esult [facility] [address] [place] [address], [place] * XR MAMMO ALEENA BILAT SCREEN (10/09/2023 3:57 PM CDT) Anatomical Region Laterality Modality BREASTS, Breast Left, Breast Right Bilateral Mammography Impressions 10/10/2023 1:24 PM CDT There is no radiographic evidence for malignancy. Recommend annual mammograms. MAMMOGRAM ASSESSMENT: ACR 1 Negative PATIENTS: You will also receive a letter with your examination results in an easy to read format. If you have questions about your results, please contact your referring provider. Narrative 10/10/2023 1:24 PM CDT For Patients: As a result of the Century Cures Act, medical imaging exams and procedure reports are released immediately into your electronic medical record. You may view this report before your referring provider. If you have questions, please contact your health care provider. XR MAMMO ALEENA BILAT SCREEN [[id number]] CLINICAL HISTORY: This is an asymptomatic 73 y.o. patient. INDICATION FOR EXAM: Mammogram Screening. TECHNIQUE: CC & MLO views were obtained. This study was evaluated with the assistance of Computer-Aided Detection. Breast Tomosynthesis was used in interpretation. COMPARISON FILM: Yes 12/08/21 [facility] FINDINGS: The breasts are heterogeneously dense, which may obscure small masses. There are no dominant masses, suspicious micro calcifications or areas of architectural distortion. Kyra ANTHONY MAMMO Final R esult * COLONOSCOPY SCREENING (10/10/2022 12:00 AM CDT) Andrea Devi MD GI PROCEDURE ORD Final Re sult * ANTI HCV [[id number]] (02/09/2016 10:00 AM SUPPORT SERVICES REP) HEPATITIS C ANTIBODY Non-Reacti ve Non-Reacti ve 02/09/2016 5:42 PM SUPPORT SERVICES REP [facility] Blood BLOOD SPECIMEN / Unknown Venipuncture / Unknown 02/09/2016 10:00 AM SUPPORT SERVICES REP 02/09/2016 10:01 AM SUPPORT SERVICES REP Narrative [facility] - 02/09/2016 5:42 PM SUPPORT SERVICES REP Antibodies to HCV not detected; does not exclude the possibility of exposure to HCV. Kyra ANTHONY SEND OUTS Final R esult [facility] [address] [place] [address], from Last 3 Months or Most Recently Relevant to Health Maintenance Insurance [place] BLUE HB ONLY MEDICARE PART B HB ONLY [place] MR PB ONLY MEDICARE PART A HB ONLY [facility] [employer] Member Subscriber Plan / Payer (Ef fective 2009-Present) Name:Miya Restrepo Relation to Subscriber:Self Name:Miya Restrepo Payer ID:Not on file Group ID:Not on file Type:Not on file [id number] Address: [address] [place] [id number] Advance Directives * Full Code (Latest Code [...] 4:20 AM 03/22/2010 1:40 PM Care Teams Psychiatric Security Nurse Relationship Specialty Start Date End Date Kyra Perera PA [address] [place] [address] PCP - General 06/16/08 Genaro Leonard MD [address] [facility] [address] [place] [address] Cardiology - Electrophysiology 05/30/22 Janay Nunez MD [address] [id number] Cardiology - Interventional 09/21/22 Carolyn Pisano PA [address] [place], [place] [address] [address] Physician Control Director 09/21/22 Keo Escobar MD [address] [place] [address] Sports Medicine - Family Medicine 09/21/22
--- OUTSIDE RECORDS SUMMARY | 2024-04-08 00:57 | XMS_ITS | Encounter Summary ---
Author Organization [facility] Address [address] [place] [id number] Care Team Providers Care Yarn Carrier Name Role Phone Kyra Perera Primary Care Provider Angel Hollins MD Unavailable Petra Dorado Unavailable [phone] Angel Hollins MD Unavailable [phone] Yves Ballard MD Unavailable + [phone] Reason for Visit * Rehab Therapy Integrated Services (Routine) - Closed Specialty Diagnoses / Procedures Referred By Scott muniz Referred To Contact Diagnoses Scot DAUGHERTY PF RN sent order Procedures PT NEURO EVAL [address] [address] Phone: tel: Referral ID Status Reason Start Date Expiration Date Visits Re quested Visits Authorized [id number] Closed 07/18/2023 03/12/2024 365 [id number] Encounter Details Date Type Department Care Team (Latest Contact Info) Description 02/26/2024 1:30 PM PRINTING AGENT Therapy Visit [address] [phone] Kyra Perera [facility] [place] [address] Dylan Mccann OT Cerebrovascular accident (CVA) due to thrombosis [...] on file Legal Sex Female 3:34 AM PRINTING AGENT Gender Identity Not on file Sexual Orientation Not on file documented as of this encounter Progress Notes * Dylan Mccann OT - 04/03/2024 9:56 AM CST 02/26/24 0500 Appointment Info Treating Provider Dylan Mccann OTR/L Visits Used Visit 33, 07/20-Medicare for supplament Medical Diagnosis Cerebrovascular accident (CVA) due to thrombosis of left middle cerebral artery OT Tx Diagnosis Activity of daily living alteration Precautions/Limitations falls, R caitlin/shoulder subluxation Progress Note/Certification Start Of Care Date 07/20/23 Onset of Illness/Injury or Date of Surgery 06/30/23 Therapy Frequency 2x/week decreasing frequency as clinically indicated/necessary Predicted Duration 90 days Certification date from 01/08/24 Certification date to 04/07/24 KX Modifier Statement I certify the need for these services furnished under this plan of treatment and while under my care. (Physician co-signature of this document indicates review and certificationof the therapy plan) Progress Note Due Date 04/07/24 Goals OT Goals 1;2;3;4;5;6;7;8 OT Goal 1 Goal Identifier IADLs/Community Mobility Goal Description Pt will demonstrate visual and divided attention WFL for safe functional and community mobility tasks (navigating new environments, driving, grocery shopping) by scoring WFLs on 3/3 IADL tasks (Dynavision, Scan course, SDMT, trail-making, BiVABA scan sheets, etc.). Rationale In order to maximize safety and independence with performance of self- care activities;In order to maximize safety and independence with ADL/IADLs;In order to maximize safety and independence with functional transfers and functional mobility within the home or community Goal Progress GOAL MET. Pt returned to driving. Target Date 01/08/24 Date Met 01/08/24 OT Goal 2 Goal Identifier R UE function Goal Description Patient to demonstrate functional tasks with 50% use of R UE as gross stabilizer or gross assist for increased ADL/IADL independence and closer return to prior level of function. Rationale In order to maximize safety and independence with ADL/IADLs Goal Progress Goal progressing, variable performance at this time - improving. Trained in multi-activity HEP with focus on RUE ROM, strength, and coordination. Pt reports subjective improvement in functional use including for cutting foods, handwriting, and playing ball, to name a few. Continues samantha limited by discomfort and pain in RUE and neck. Will continue to progress in future sessions. Target Date 04/07/24 OT Goal 3 Goal Identifier home program Goal Description Pt to complete invidualized HEP including ROM, WBing for tone management, NMES if indicated, and progressing to strength training to maximize functional use of R UE during daily living tasks. Rationale In order to maximize safety and independence with ADL/IADLs Goal Progress Goal progressing. Pt trained in multi-activity HEP with focus on RUE ROM, strength, and coordination - see below for specifics. Pt overall demonstrates good adherence to HEP between sessions with functional improvements noted both subjectively and objectively. Will continue to progress as appropriate in future sessions. Target Date 04/07/24 OT Goal 4 Goal Identifier handwriting Goal Description Patient will demonstrate improvement of right handed handwriting, as evidenced by improvement of 15 letters per minute on Assessment of Hnadwriting Fluency and Legibility to increaseparticipation in ADL/IADLs. Target Date 04/07/24 OT Goal 5 Goal Identifier checkroom attendant Goal Description Patient to demonstrate improved B checkroom attendant strength by 5# for increased ADL/IADL independence (hanging onto objects for hygienes, home and work tasks, etc.). Rationale In order to maximize safety and independence with ADL/IADLs Goal Progress Goal progressing. 01/08/24 R: 25.3 lbs, L: 46.6 lbs. 10/26/23 R: 22 lbs, L: 50 lbs. 08/31/23 - R: 15 lbs, L: 46 lbs. Pt overall demonstrating improvement in strength and pt to continue with hand strength HEP. Will continue to progress in session as appropriate. Target Date 04/07/24 OT Goal 6 Goal Identifier 9 hole peg/grooved pegboard Goal Description Pt to demonstrate increased fine motor coordination as evidenced by improvement of9 hole peg test or grooved pegboard test by 15 seconds with left UE in order to increase safety andindependence with ADL/IADL tasks. Rationale In order to maximize safety and independence with performance of self- care activities;In order to maximize safety and independence with ADL/IADLs Goal Progress Goal progressing. 01/08/24 - R: 35 sec. L: 22 sec. 10/26/23 - R: 37 sec L: 20 sec. 08/31/23 - R: 60 sec, L: 22 sec. Pt overall demonstrating improvement in coordination with tasks in session and pt to continue with coordination HEP. Will continue to progress in session as appropriate. Target Date 04/07/24 OT Goal 7 Goal Identifier Pinch strength Goal Description Pt will demonstrate increased right hand pinch (lateral and 3 point) strength by 15% in order to increase safety with ADL tasks. Rationale In order to maximize safety and independence with ADL/IADLs;In order to maximize safety and independence with performance of self-care activities Goal Progress Goal progressing. Lateral pinch - 01/08/24 - R: 8 lbs, L: 10 lbs. 10/26/23 - R: 6 lbs,L: 11 lbs. 08/31/23 - R: 5 lbs, L: 10.5 lbs. 3 pt pinch - 01/08/24 - R: 6.5 lbs, L: 12 lbs. 10/26/23 - R: 5 lbs, L: 11 lbs. 08/31/23 - R: 5 lbs, L: 11 lbs. Pt overall demonstrating improvement in strength and pt to continue with hand strength HEP. Will continue to progress in session as appropriate. Target Date 04/07/24 OT Goal 8 Goal Identifier gross motor coord Goal Description Pt to demonstrate increase of gross motor coordination as evidenced by increase inbox and blocks test performance by 15 blocks, in order to increase independence and safety with ADLtasks. Rationale In order to maximize safety and independence with performance of self- care activities;In order to maximize safety and independence with ADL/IADLs Goal Progress Goal progressing. 01/08/24 - R: 45. 8 - R: 44, L: 70. 08/31/23 - R: 28, L: 66. Recently progressed HEP to include GMC exercises, including roll/bounce/toss/catch/hitting of ball (playground size to tennis ball size). Pt demonstrates min improvements in functional reach and ability to transport items with R hand. Will plan to further assess and progress in future sessions. Target Date 04/07/24 Subjective Report Subjective Report Pt arrives on time, alone. Pt reports R upper arm pain 6/10 with activity, no pain at rest. Pt reports feeling like her arm is getting a little better since cortisone shot. Objective Measures Objective Measures Objective Measure 1;Objective Measure 2;Objective Measure 3;Objective Measure 4;Objective Measure 5;Objective Measure 6;Objective Measure 7;Objective Measure 8;Objective Measure 9;Objective Measure 10;Objective Measure 11;Objective Measure 12;Objective Measure 13 Objective Measure 1 Objective Measure checkroom attendant Details 01/08/24 R: 25.3 lbs, L: 46.6 lbs. 10/26/23 R: 22 lbs, L: 50 lbs. 08/31/23 - R: 15 lbs, L: 46lbs Objective Measure 2 Objective Measure lateral pinch Details 01/08/24 - R: 8 lbs, L: 10 lbs. 10/26/23 - R: 6 lbs, L: 11 lbs. 08/31/23 - R: 5 lbs, L: 10.5 lbs Objective Measure 3 Objective Measure 3 pt pinch Details 01/08/24 - R: 6.5 lbs, L: 12 lbs. 10/26/23 - R: 5 lbs, L: 11 lbs. 08/31/23 - R: 5 lbs, L: 11 lbs Objective Measure 4 Objective Measure 9 hole peg Details 01/08/24 - R: 35 sec. L: 22 sec. 10/26/23 - R: 37 sec L: 20 sec. 08/31/23 - R: 60 sec, L: 22 sec Objective Measure 5 Objective Measure Fugl-Zhang Details 01/08/24 - 61/66. 10/26/23 - 61/66. 08/31/23 - 56/ Objective Measure 6 Objective Measure Box and Blocks Details 01/08/24 - R: 45. 8 - R: 44, L: 70. 08/31/23 - R: 28, L: 66 (completes while standing for optimal positioning with heightened table) Objective Measure 7 Objective Measure Grooved Peg Board Details 01/08/24 - 2:50 min. 10/26/23 - 5:39 min. Completed in placed in 4:45 min. 10/05/23 - grooved pegs placed in 10 min (did not take out) Objective Measure 8 Objective Measure Dynavision Details As of 10/10/23 - Using LUE only throughout. Mode A: 66 hits (average reaction time 0.8 sec top L, 0.9 sec top R, 1.0 sec bottom R, 0.9 sec bottom L; WNLs is 52+ hits). Mode B (1.0 sec intervals), trial 1: 40/67 hits (accuracy was 69% top L, 72% top R, 40% bottom R, 62% bottom L). trial 2: 55/73 hits (accuracy was 85% top L, 76% top R, 80% bottom R, 60% bottom L; WNLs is 42+ hits). Mode B divided attention: 38/67 hits and 10#s (accuracy was 62% top L, 57% R side, 46% bottom L; WNLs is 35+hits with 9-10#s). Objective Measure 9 Objective Measure BiVABA Visual Scan Course Details As of 10/17/23 - On 60 foot scan course with targets high/medium/low, patient gets 9/10 left and 9/10 right in 49.6 sec 1st trial and 10/10 L, 10/10 R in 40.2 sec for second trial then 9/10 left and 10/10 on right in 41.2 sec. WNL is consistent scores of >19/20, completing course in 35-50 seconds. Objective Measure 10 Objective Measure Cognitive IADL Skills Details As of 10/17/23 - on Short Blessed Test (WNLs). 10/12 sign recognition (BNLs) on 10/10/23 but able to state 12/12 on 10/17/23 (WNLs). 8/ law recognition (WNLs). Objective Measure 11 Objective Measure Physical IADL Skills Details As of 10/10/23 - Right Foot Tap Measure requires the patient to tap R foot 10 times, alternating between R and L side of barrier on floor (about 12 inches between tapping sites). Average time is approximately 5-6 seconds. Scored 4.5 sec on first trial and 3.8 sec on second trial (WNLs). Objective Measure 12 Objective Measure Snellen Distance Visual Acuity Details As of 10/17/23 - With Snellen distance visual acuity chart with contact lenses in place, pt demonstrates approximately 20/40 vision with R eye, 20/50 vision with L eye, and 20/30 vision with 1 error with both eyes together. Pt notes she has old contact lenses in during testing today. Recommended she update her contact lenses or wear her glasses for vision-based activities, including driving. Objective Measure 13 Objective Measure Assessment of Handwriting Fluency and Legibility Details 61 letters copied, 40 letters per minute (Adult Norm: 68 letters per minute) Treatment Interventions (OT) Interventions Self Care/Home Management;Therapeutic Procedure/Exercise;Therapeutic Activity;Manual Therapy;Neuromuscular Re- education;Community/Work Reintegration Neuromuscular Re-education Neuromuscular Re-ed Minutes (44031) 30 Neuro Re-ed 1 RUE ROM, FMC, compound movements Neuro Re-ed 1 - Details Pt instructed with use of compound grasp and movements with right UE, requiring pt to hold three items of various size and weight, in hand simultaneously, while traversing over trampoline and cushions to step over in route to placing items into seperate boxes and peg into pegboard. Pt completes transfer x10 reps with good tolerance with RUE for activity, minimal error withcompletion. Pt completes return of all items to locations with RUE with placement at various heights throughout clinic. Pt instructed with toss/catch of tennis ball with therapist across room; use ofoverhand, side arm, underhand, toss and catch. Pt with excellent participation, good accuracy with c ompletion. Skilled Intervention Skilled education and training for RUE AROM with mirror feedback to promote functional use of RUE for daily activities Therapeutic Procedure/Exercise Therapeutic Procedure: strength, endurance, ROM, flexibillity minutes (30859) 15 Ther Proc 1 arm ergometer Ther Proc 1 - Details Arm Ergometer: Pt set up with bilateral UE reciprocal task with use of arm ergometer while seated in order to maintain ROM, increase functional endurance, and coordination of BUE for ADL/IADL task independence. Pt completes 10 min, 5 min level 5, 5 min level 10 resistance withno c/o pain. Skilled Intervention Skilled education and training for RUE AROM with mirror feedback to promote functional use of RUE for daily activities Education Learner/Method Patient;Listening;Demonstration;Pictures/Video;Significant Other Education Comments see tx details above Plan Home program edema management (elevation, massage, functional use, glove, KT tape). UE HEP: AAROM/AROM, table slides, dowel (1-2#), gordon theraputty. FMC activities (progressing, grooved pegs, [place]). GMC: tennis ball, playground ball and dowel. Plan for next session d/c? handwriting testing. tweezer manipulation, FMC with multiple items, compound movements with shoulder - cont. AROM, ball bounce/toss/catch. cont waste picker of items, manipulation, pegs with peg board. Total Session Time Timed Code Treatment Minutes 45 Total Treatment Time (sum of timed and untimed services) 45 DISCHARGE Reason for Discharge: Patient has failed to schedule further appointments. Equipment Issued: BUE HEP Discharge Plan: Patient to continue home program. Referring Provider: Kyra Perera TING AGENT documented in this encounter Plan of Treatment Not on file documented as of this encounter Visit Diagnoses Diagnosis Cerebrovascular accident (CVA) due to thrombosis of left middle cerebral artery (H)- Primary Activity of daily living alteration Debility, unspecified documented in this encounter Care Teams Yarn Carrier Relationship Specialty Start Date End Date Kyra Perera [address] [place] [address] PCP - General Physician Conveyor Belt Installer 03/31/22 Angel Hollins MD [address] [facility] [id number] [place] [address] Neurology 07/20/23 Petra Dorado PA [address] [place], [place] [id number] [place] [address] Physician Conveyor Belt Installer Physical Medicine and Rehabilitation 07/20/23 Angel Hollins MD [address] [id number] [place] [address] Assigned Neuroscience Provider 08/03/23 Yves Ballard MD [address] [facility] [address] [place] [address] Assigned Heart and Vascular Provider 12/04/23 documented as of this encounter
--- OUTSIDE RECORDS SUMMARY | 2024-04-08 00:57 | XMS_ITS | Clinical Summary ---
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 207187984 (SNOMED CT) 09/19 Active 09/19 Fredi Worthy MD Neuropathic pain Infarction of basal ganglia Lt 922203831 (SNOMED CT) 09/19 Active 09/19 Fredi Worthy MD Infarction of basal ganglia Vertigo 125144341 (SNOMED CT) 04/19 Active 2 Fredi Worthy MD Vertigo Sleep apnea 18222968 (SNOMED CT) 09/24 Resolved 09/24 Fredi Worthy MD Sleep apnea New daily persistent headache 462276269673 105 (SNOMED CT) 03/29 Active 03/29 Fredi Worthy MD New daily persistent headache Hypertension, uncontrolled 02367526 (SNOMED CT) 03/29 Active 03/29 Fredi Worthy MD Hypertensive disorder Cardiac arrhythmia 80193406 (SNOMED CT) 09/24 Active 09/24 Armando Granados MD Conduction disorder of the heart Sleep apnea 04170235 (SNOMED CT) 09/24 Removed 09/24 Armando Granados MD Sleep apnea Intracranial vascular stenosis 25308905 (SNOMED CT) 09/24 Active 09/24 Armando Granados MD Cerebral artery occlusion Medications Medication Instructions Start Date Stop Date Generic Name NDC Provider GABAPENTIN 100 MG CAPS 1 capsule by mouth as directed : 1 to 3 caps 2 times/day during the day time as needed for pain. In addition take 200 mg per night and may increase by 100 mg per night as needed until pain controlled or until 600 mg/night 04/03 gabapentin 35889731887 Fredi Worthy MD GABAPENTIN 100 MG CAPS 1 capsule by mouth as directed : 1 cap or 100 mg per night and may increase by 100 mg every 5 night as needed until pain controlled or until 600 mg/night gabapentin 31940936556 Fredi Worthy MD EZETIMIBE 10 MG TABS ezetimibe 33683436668 Fredi Worthy MD GABAPENTIN 100 MG CAPS 1 capsule by mouth as directed : 1 to 3 caps 2 times/day during the day time as needed for pain. In addition take 200 mg per night and may increase by 100 mg per night as needed until pain controlled or until 600 mg/night 04/03 gabapentin 50686247916 Fredi Worthy MD AMLODIPINE BESYLATE 2.5 MG TABS once a day 09/19 amlodipine 23197158854 Fredi Worthy MD DIAZEPAM 5 MG TABS three times a day as needed 09/19 diazepam 57018359720 Fredi Worthy MD EPLERENONE 25 MG TABS once a day 09/19 eplerenone 55041546393 Fredi Worthy MD VITAMIN D 50 MCG (2000 UT) TABS once a day 09/19 cholecalciferol (vitamin d3) 29342590959 Fredi Worthy MD ONDANSETRON 4 MG TBDP every six hours as needed ondansetron 21035368209 Fredi Worthy MD FLUTICASONE PROPIONATE 50 MCG/ACT SUSP twice a day as needed 09/19 fluticasone propionate 74342026107 Fredinadeem Worthy MD MECLIZINE HCL 12.5 MG TABS every eight hours as needed 09/19 meclizine 60805084632 Fredinadeem Worthy MD ALPRAZOLAM 0.25 MG TABS Bedtime alprazolam 72327025141 Fredinadeem Worthy MD DILTIAZEM HCL 30 MG TABS twice a day 09/19 diltiazem hcl 95973812592 Fredi Worthy MD Aspirin once a day as needed Aspirin Fredinadeem Worthy MD COENZYME Q10 10 MG CAPS Discontinued 09/19 coenzyme q10 76969175448 Fredinadeem Worthy MD NITROGLYCERIN 0.4 MG SUBL 5 mg as needed nitroglycerin 67472151477 Fredinadeem Worthy MD FUROSEMIDE 20 MG TABS three times a day 09/19 furosemide 40115921523 Fredinadeem Worthy MD METOPROLOL TARTRATE 25 MG TABS metoprolol tartrate 86314247400 Fredinadeem Worthy MD TELMISARTAN 20 MG TABS TAKE ONE TABLET BY MOUTH (20MG) TWICE A DAY PT REQUESTING THIS SAP PAYROLL CONSULTANT FOR THIS telmisartan 35857866035 Fredi Worthy MD ONDANSETRON 4 MG TBDP Every 6 Hours as needed 11/24 Ondansetron Hcl 59748880497 System Maintenance NITROGLYCERIN 0.4 MG SUBL Every 5 Minutes X 3 as needed 09/19 Nitroglycerin 45368114352 System Maintenance MECLIZINE HCL 12.5 MG TABS Every 8 Hours as needed 09/19 Meclizine Hcl 98180476440 System Maintenance FUROSEMIDE 20 MG TABS 3XWK 09/19 Furosemide 90256982382 System Maintenance FLUTICASONE PROPIONATE 50 MCG/ACT SUSP Twice A Day as needed 09/19 Fluticasone Propionate (Nasal) 13991398589 System Maintenance EPLERENONE 25 MG TABS Daily Eplerenone 91590518302 System Maintenance DILTIAZEM HCL 30 MG TABS Twice A Day 09/19 Diltiazem Hcl 17027765279 System Maintenance DIAZEPAM 5 MG TABS Three Times A Day as needed 09/19 Diazepam 33176447772 System Maintenance COENZYME Q10 10 MG CAPS Discontinued 09/19 Coenzyme Q10 (Ubidecarenone) 71469641321 System Maintenance VITAMIN D 50 MCG (1999 UT) TABS Daily 09/19 Cholecalciferol 59821919417 System Maintenance Aspirin Daily as needed 09/19 Aspirin 56906094400 System Maintenance AMLODIPINE BESYLATE 2.5 MG TABS Daily 09/19 Amlodipine Besylate 45086709712 System Maintenance ALPRAZOLAM 0.25 MG TABS Bedtime 09/19 Alprazolam 71819470757 System Maintenance Medications Administered No information available. Allergies, Adverse Reactions, Alerts Allergy Name Reaction Description Start Date Severity Status Provider Verapamil Mild Active Armando Granados MD Rosuvastatin Mild Active Armandophuc Granados MD Penicillin v Mild Active Armando E Roberta MAURICE Morphine Mild Active Armando E Roberta MAURICE Metronidazole Mild Active Strandquist E Roberta MAURICE Metoprolol Mild Active Armandophuc Granados MD Methyldopa Mild Active Strandquistphuc Granados MD Losartan Mild Active Strandquistphuc Granados MD Lorazepam Mild Active Strandquist E Roberta MAURICE Lisinopril Mild Active Strandquist E Roberta MAURICE Latex Mild Active Strandquist E Roberta MAURICE Lactose Mild Active Armando E Roberta MAURICE Labetalol Mild Active Armandophuc Granados MD Hydrocodone Mild Active Armandophuc Granados MD Hydrochlorothiazide Mild Active Armandophuc Granados MD Hydralazine Mild Active Strandquistphuc Granados MD Diltiazem Mild Active Strandquist E Roberta MAURICE Atorvastatin Mild Active Armandophuc Granados MD Acetaminophen Mild Active Strandquist E Roberta MAURICE <originalText>Sulfa drugs<reference value=#allergy-21/></o Mild Active Rup ert Dion Granados MD <originalText>Milk derivatives<reference value=#allergy-23 Moderate Active Strandquistpuhc Granados MD <originalText>Lobster<refe rence value=#allergy-1/></orig in Moderate Active Armandophuc Granados MD <originalText>Beta Adrenergic Blockers<reference value=#all Mild Active Armando Granados MD Results Date Name Value Unit Range Flag Description Office Visit: 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 Internal Other: Authorizatio n - OBS [email or web address] Yes Authoriza tion: Release of Information - Authorize [facility] - Payment and Healthcare Operations ROIAUTHOTHER Yes Authoriz ation: Release of Information - Authorize Others/Insurance - Payment and Healthcare Operations HIECONSENT Yes Consent To Release information to the Health Information Exchange (HIE) [email or web address] Yes Authorizat ion: Authorization for [facility] to leave messages, voicemail, send text messages, send emails AUTHRELHCARE Yes Authoriz ation: Release/Retrieval of Information to/from Healthcare Facilities, Pharmacy Benefit Payers and Providers AUTHPRIVPRAC Yes Authoriz ation: Notice of privacy practices AUTHBENEFIT Yes Authoriza tion: Assignment of Benefits and Payment Agreement Internal Other: Verbal Autho rization/Emergency Contact - OBS VERBAL_EMER Done Verbal au thorization and emergency contact Office Visit: Office Visit 6 Month follow up fax MEDS REVIEW Done Documenta tion of current medications (procedure) Plan of Care Type Date Detail Appointment 10:00 AM Shawna Bob PA-C, [address], [address], [place], [address], Pending order Follow up TIMMY Pending order Follow up TIMMY Pending order Follow up with N eurologist or TIMMY Pending order Instructions for Staff Pending order Patient Instruct ions Pending order Follow up in [facility] [place] or telemedicine with provider or TIMMY Pending order Follow up in [facility] or telemedicine with provider or TIMMY Pending order Follow up in [facility] [place] or telemedicine with provider or TIMMY Pending order MRA-Neck W/WO Pending order Follow up in [place] or telemedicine with provider or TIMMY Pending order MRA-Neck W/WO Pending order Patient Instruct ions Procedures Code Procedure Name Date Entry Date ORDERS Follow up with Neurologist or TIMMY ORDERS Instructions for Staff 04/03 [facility]-[id number] Documentation of current medicatio ns [id number] Documentation of current medicatio ns ORDERS Patient Instructions [id number] Documentation of current medicatio ns [id number] Documentation of current medicatio ns Vital Signs Date Name Value Unit Description Heart Rate 66 /min pulse rate Height 145 [in_us] height E&M BP Diastolic 115 mm[Hg] blood pressu re, diastolic BP Systolic 209 mm[Hg] blood pressur e, systolic BMI (Body Mass Index) 2.06 kg/m2 Bod y Mass Index (Ratio) Weight Measured 61.5 [lb_av] weight E& M Immunizations No information available. Advance Directives No information available.
--- OUTSIDE RECORDS SUMMARY | 2024-04-08 00:57 | XMS_ITS ---
Author Organization [facility] Address [address] , [address] [place] [address] Phone Care Team Providers Care Specialty Manufacturing Supervisor Name Role Phone Zaynab MAURICE, Fredi Santos Conditions or Problems No information available. Medications Medication Instructions Start Date Stop Date Generic Name [facility] Provider GABAPENTIN 100 MG CAPS 1 capsule by mouth as directed : 1 to 3 caps 2 times/day during the day time as needed for pain. In addition take 200 mg per night and may increase by 100 mg per night as needed until pain controlled or until 600 mg/night 0 gabapentin 95661461309 Fredi Worthy MD GABAPENTIN 100 MG CAPS 1 capsule by mouth as directed : 1 cap or 100 mg per night and may increase by 100 mg every 5 night as needed until pain controlled or until 600 mg/night 2 gabapentin 83115345115 Fredi Worthy MD EZETIMIBE 10 MG TABS ezetimibe 74252309786 Fredi Worthy MD Medications Administered No information available. Allergies, Adverse Reactions, Alerts No information available. Results Date Name Value Unit Range Flag Description Office Visit: Office Visit 6 Month follow up fax MEDS REVIEW Done Documenta tion of current medications (procedure) Plan of Care Type Date Detail Appointment 10:00 AM Shawna Bob PA-C, [address], [address], [place], [address], Pending order Follow up TIMMY Pending order Follow up TIMMY Pending order Instructions for Staff Procedures Code Procedure Name Date Entry Date ORDERS Instructions for Staff 04/03 [facility]-[id number] Documentation of current medicatio ns Vital Signs Date Name Value Unit Description Heart Rate 66 /min pulse rate Height 145 [in_us] height E&M Immunizations No information available. Advance Directives No information available.
--- OUTSIDE RECORDS SUMMARY | 2024-04-08 00:57 | XMS_ITS | Encounter Summary ---
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 Gender Identity Not on file Sexual Orientation Not on file documented as of this encounter Plan of Treatment Not on file documented as of this encounter Visit Diagnoses Not on filedocumented in this encounter Care Teams Scrap Metal Processing Worker Relationship Specialty Start Date End Date [place] [address] PCP - General Physician Home Stereo Equipment Installer 03/31/22 Angel Hollins MD [address] [address] Neurology 07/20/23 Petra Dorado PA [address] [place] [address] Physician Home Stereo Equipment Installer Physical Medicine and Rehabilitation 07/20/23 Angel Hollins MD [address] [address] Assigned Neuroscience Provider 08/03/23 Yves Ballard MD [address] [facility] [address] [place] [address] Assigned Heart and Vascular Provider 12/04/23 documented as of this encounter
--- OUTSIDE RECORDS SUMMARY | 2024-04-08 00:57 | XMS_ITS | Encounter Summary ---
Author Organization [facility] Address [facility] [place] [address] Care Team Providers Care Tung Nut Grower Name Role Phone Trever Kyra Bell Primary Care Provider [phone] Angel Hollins MD Unavailable Petra Dorado Unavailable [phone] Angel Hollins MD Unavailable Yves Balalrd MD Unavailable [phone]- [phone] Reason for Visit * Reason Comments RECHECK VIDEO [phone] llow up to 10/31/23Labs done 02/20/24 * Consultation (Routine: Next available opening) - Pending Review Specialty Diagnoses / Procedures Referred By Contac t Referred To Contact Diagnoses Hypertension, unspecified type Atherosclerosis of abdominal aorta Cerebrovascular accident (CVA), unspecified mechanism (H) Hyperlipidemia LDL goal <70 Statin intolerance Lymphedema Yves Ballard MD [address] [facility] [address] [place] [address] Phone: tel: fax: Referral ID Status Reason Start Date Expiration Date V isits Requested Visits Authorized [id number] Pending Review 12/05/2023 12/04/2024 1 1 Encounter Details Date Type Department Care Team (Latest Contact Info) Description 02/29/2024 4:20 PM RECREATION THERAPY DIRECTOR Virtual Visit [facility] [place] 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 to improve the blood pressure Virtual visit with me in June 2024 after fasting labs order placed EATION THERAPY DIRECTOR EATION THERAPY DIRECTOR EATION THERAPY DIRECTOR documented in this encounter Progress Notes * Yves Ballard MD - 02/29/2024 4:20 PM CST Deyon is a 73 year old who is being evaluated via a billable video visit. How would you like to obtain your AVS? MyChart If the video visit is dropped, the invitation should be resent by: Text to cell phone: [phone] Will anyone else be joining your video visit? No Alycia Hays MA Provider visit note: Follow-up visit She did not tolerate clonidine patch in the past She stopped taking Livalo Recent CMP labs looks good lipids improved but not at goal Started taking Zetia 5 mg every other day Intolerance to multiple statins and listed allergies for 28 different medications Blood pressure is around 150 Taking low-dose metoprolol 12.5 twice a day and currently taking 10 mg of telmisartan twice a day Lasix 20 mg 2 times a week She is planning to get the compounded telmisartan medication through [facility] For full details please see my previous office visit notes Review of systems: Reviewed all 12 point review of systems as per HPI otherwise unremarkable Physical exam:( no physical exam done this is virtual visit) Reviewed recent laboratory tests, imaging studies in the [facility] and updated chart Assessment and plan: 1. Hypertension, unspecified type 2. Atherosclerosis of abdominal aorta (H24) 3. Hx of Cerebrovascular accident (CVA), (H) 4. Hyperlipidemia LDL goal <70 5. Statin intolerance 6. Lymphedema She was initially seen on November 09, 2019 for evaluation and management of hypertension intoleranceto multiple medications listed 28 in the chart There was a questionable FMD findings in the carotidarteries neurologist discussed with neuroradiology and clarified does not fit the criteria for FMD.No evidence of FMD features in the mesenteric or renal arteries on her recent CTA. She is currentlygetting physical therapy and edema therapy. She tried almost all statins could not handle Currently taking only lipid-lowering medication is 5 mg of Zetia every other day She could not handle clonidine patch as well for blood pressure control Most recent statin Zypitamag could not handle and stopped it She is still having aches and pains Blood pressure is around 150 systolic Suggested patient increase the Zetia frequency and take 5 mg daily with food Yoga exercises deep breathing exercises and relaxation techniques for blood pressure control For aches and pains and all other issues follow-up with the primary care physician Virtual visit in May 2024 after fasting labs order placed Video Visit Details Type of Service: Video Visit Video Start Time: 4:25 PM Video End Time: 4:50 PM Total 30 minutes spent on the date of the encounter doing chart review, review of previous evaluation, recent labs, history, documentation and addressed above- mentioned issues. She had a lot of questions all of them were answered AVS with written instructions done The longitudinal care of plan for the above diagnoses was addressed during this visit. Due to addedcomplexity of care, we will continue to supprt Miya Restrepo and the subsequent management of this/these conditions and with ongoing continuity of care for this/these conditions. Originating Location (patient location): Home Distant Location (provider location): [facility] Mode of Communication: Video Conference via CloudPhys[employer] This visit is being conducted as a virtual visit due to the emphasis on mitigation of the COVID-19 virus pandemic. The clinician has decided that the risk of an in-office visit outweighs the benefit for this patient. Yves Ballard MD,FAHA,FSVM,FNLA, FACP Vascular Medicine Clinical Hypertension Specialist Clinical Lipidologist EATION THERAPY DIRECTOR documented in this encounter Plan of Treatment Scheduled Orders Name Type Priority Associated Diagnoses Orde r Schedule Lipid panel reflex to direct LDL Fasting Lab Routine Hyperlipidemia LDL goal <70 Expected: 05/29/2024 (Approximate), Expires: 08/29/2024 Comprehensive metabolic panel Lab Routine Hyperlipidemia LDL goal <70 Expected: 05/29/2024 (Approximate), Expires: 08/29/2024 documented as of this encounter Visit Diagnoses Diagnosis Hypertension, unspecified type Atherosclerosis of abdominal aorta Atherosclerosis of aorta Hx of Cerebrovascular accident (CVA), (H) Hyperlipidemia LDL goal <70 Other and unspecified hyperlipidemia Statin intolerance Other drug allergy Lymphedema Other lymphedema documented in this encounter Care Teams Tung Nut Grower Relationship Specialty Start Date End Date Kyra Perera [address] [place] [address] PCP - General Physician Shot Coat Tender 03/31/22 Angel Hollins MD [address] [facility] [address], [place] [address] Neurology 07/20/23 Petra Dorado PA [address] [place] [address] Physician Shot Coat Tender Physical Medicine and Rehabilitation 07/20/23 Angel Hollins MD [address] [facility] [place] [address] Assigned Neuroscience Provider 08/03/23 Yves Ballard MD [address] [place] [address] Assigned Heart and Vascular Provider 12/04/23 documented as of this encounter
[2024-04-08 01:00] VITALS: BP 243/116; PULSE 75; RESP 18; TEMP 36.6; O2SAT 96; BMI 25.2
[2024-04-08 01:23] LABS: Basophils Absolute Auto 0.02 K/uL (0.00-0.30); Basophils Percent Auto 0.4 % (0.0-3.0); Eosinophils Absolute Auto 0.16 K/uL (0.00-0.50); Eosinophils Percent Auto 3.1 % (0.0-7.0); Hematocrit 45.6 % (33.0-51.0); Immature Granulocytes Abs Auto 0.04 K/uL (0.00-0.30); Immature Granulocytes Pct Auto 0.8 %; Lymphocytes Percent Auto 40.4 % (20-44); Mean Corpuscular HGB Conc 33 gm/dL (32-36); Mean Corpuscular Hemoglobin 29 pg (26-34); Mean Corpuscular Volume 89 fL (80-100); Monocytes Percent Auto 9.4 % (0.0-11.0); Neutrophils Absolute Auto 2.39 K/uL (1.7-7.0); Neutrophils Percent Auto 45.9 % (42.0-72.0); Platelet Count* 189 K/uL (140-440); RDW Coefficient of Variation % 12.9 % (11.5-15.5); Red Blood Count 5.15 m/uL (4.00-5.20)
[2024-04-08] MEDS: diphenhydrAMINE 25 MG CAPSULE PO (01:27)
[2024-04-08] MEDS: FAMOTIDINE 20 MG TABLET PO (01:27)
--- NOTE | 2024-04-08 01:27 | ED.GENADULT ---
HPI - General Adult General Chief complaint: Chest Pain Stated complaint: chest pain Time Seen by Provider: 04/08/24 00:56 Source: patient Mode of arrival: ambulatory Limitations: no limitations History of Present Illness HPI narrative: 73-year-old female presents to the ED with a 1 hour history of dizziness with pressure in the left chest area radiating to the left arm. No trauma or injury. Has sensitivity to multiple medications. Had similar symptoms 2 weeks ago when she was taking telmisartan hand, which had been a new medication for her. Her head of science discontinued the medication and tried transitioning her on to olmesartan 4 days ago. She reports that when she has taken the medication the last couple of nights, she feels a churning sensation in her gut and has loose stools. After taking the medicine at bedtime, she had loose stools, feeling of dizziness and the start of the chest pressure. No fever. She has some weakness in both legs but it is equal and symmetric. No difficulty breathing, no swelling of the airway or lips. No fever or recent illness. She says that she ?feels like she is dehydrated? even though she has been eating and drinking normally and having no vomiting. She requests IV fluids. She says that typically when she gets these reactions to medications, she will take Benadryl and Xanax and symptoms do tend to improve. Denies new focal neurological changes. Has some residual right arm weakness and rare right leg weakness but only with exertional fatigue. No left-sided symptoms and will get some slurring of the speech. This is markedly improved from initially after her stroke where she had difficulty walking and talking at all. No headache. Multiple sensitivities to medications. Discharge summary reviewed from stroke last year. No prior history of acute coronary syndrome or arrhythmia. Prior echo noted. Reports good compliance with her aspirin. No falls, trauma or injury. Medications and allergies reviewed. Only difference is she is taking 12 and half of the metoprolol rather than 6.25 and is also taking olmesartan rather than telmisartan which is listed and was discontinued due to similar side effects. ROS is notable for the GI, generalized, cardiac changes as above. Otherwise states that everything else is baseline times 12 systems Related Data Home Medications ?Medication ?Instructions ?Recorded ?Confirmed alprazolam 0.25 mg tablet 0.125 mg PO TID PRN 10/03/21 09/26/23 cholecalciferol (vitamin D3) 50 50 mcg PO DAILY 10/03/21 09/26/23 mcg (2,000 unit) tablet fluticasone propionate 50 1 - 2 spray intranasal DAILY PRN 10/03/21 09/26/23 mcg/actuation nasal spray,suspension nitroglycerin 0.4 mg sublingual 0.4 mg sublingual Q5M PRN 10/03/21 09/26/23 tablet aspirin 81 mg capsule 81 mg PO DAILY 02/15/22 09/26/23 metoprolol tartrate 25 mg tablet 6.25 mg PO DAILY 06/30/23 09/26/23 telmisartan 20 mg tablet 10 mg PO HS 06/30/23 09/26/23 diazepam 5 mg tablet 2.5 - 5 mg PO Q6H PRN anxiety 07/01/23 09/26/23 famotidine 10 mg tablet 10 mg PO DAILY 07/01/23 09/26/23 furosemide 20 mg tablet 20 mg PO Q OTHER DAY PRN 07/01/23 09/26/23 meclizine 25 mg tablet 25 mg PO TID PRN 07/01/23 09/26/23 Allergies Allergy/AdvReac Type Severity Reaction Status Date / Time Penicillins Allergy Severe Throat Verified 04/08/24 01:09 Closing amlodipine Allergy Intermediate Palpitation Verified 04/08/24 01:09 s atorvastatin Allergy Intermediate Myalgia Verified 04/08/24 01:09 chlorthalidone Allergy Intermediate Dyspnea Verified 04/08/24 01:09 clonidine Allergy Intermediate Dyspnea Verified 04/08/24 01:09 diltiazem Allergy Intermediate Anxiety Verified 04/08/24 01:09 doxazosin Allergy Intermediate Bleeding Verified 04/08/24 01:09 hydralazine Allergy Intermediate Tachycardia Verified 04/08/24 01:09 hydrochlorothiazide Allergy Intermediate Dyspnea Verified 04/08/24 01:09 labetalol Allergy Intermediate Dyspnea Verified 04/08/24 01:09 lisinopril Allergy Intermediate Chest Pain Verified 04/08/24 01:09 lobster Allergy Intermediate Verified 04/08/24 01:09 lorazepam (From Ativan) Allergy Intermediate Depression Verified 04/08/24 01:09 losartan Allergy Intermediate Dyspnea Verified 04/08/24 01:09 methyldopa Allergy Intermediate Rash Verified 04/08/24 01:09 metoprolol Allergy Intermediate Dyspnea Verified 04/08/24 01:09 metronidazole (From Flagyl) Allergy Intermediate Hives Verified 04/08/24 01:09 milk Allergy Intermediate Verified 04/08/24 01:09 rosuvastatin Allergy Intermediate Myalgia Verified 04/08/24 01:09 verapamil Allergy Intermediate Dyspnea Verified 04/08/24 01:09 morphine Allergy Mild Hives Verified 04/08/24 01:09 Sulfa (Sulfonamide Allergy Mild Hives Verified 04/08/24 01:09 Antibiotics) lactose Allergy Unknown Verified 04/08/24 01:09 latex Allergy Unknown Verified 04/08/24 01:09 hydrocodone AdvReac Intermediate Nausea/Vomi Verified 04/08/24 01:09 ting olmesartan AdvReac Intermediate Verified 04/08/24 03:00 [facility] Medical History Hypertension ?I10 - Essential (primary) hypertension (ICD-10) Paroxysmal SVT (supraventricular tachycardia) (04/07/21) ?I47.10 - Supraventricular tachycardia, unspecified (ICD-10) 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) ?D89.40 - Mast cell activation, unspecified (ICD-10) LVH (left ventricular hypertrophy) (01/26/21) ?I51.7 - Cardiomegaly (ICD-10) TBI (traumatic brain injury) ?S06.9XAA - Unspecified intracranial injury with loss of consciousness status unknown, initial encounter (ICD-10) Frequent PVCs ?I49.3 - Ventricular premature depolarization (ICD-10) Anxiety ?F41.9 - Anxiety disorder, unspecified (ICD-10) Statin intolerance ?Z78.9 - Other specified health status (ICD-10) Hypertension with intolerance to multiple antihypertensive drugs ?I10 - Essential (primary) hypertension (ICD-10) Viral infection ?B34.9 - Viral infection, unspecified (ICD-10) Upper back pain ?M54.9 - Dorsalgia, unspecified (ICD-10) Tinnitus ?H93.19 - Tinnitus, unspecified ear (ICD-10) Obstructive sleep apnea treated with continuous positive airway pressure (CPAP) ?G47.33 - Obstructive sleep apnea (adult) (pediatric) (ICD-10) Headache ?R51.9 - Headache, unspecified (ICD-10) Excessive daytime sleepiness ?G47.19 - Other hypersomnia (ICD-10) Encounter for follow-up ?Z09 - Encounter for follow-up examination after completed treatment for conditions other than malignant neoplasm (ICD-10) Disorder of paranasal sinus ?J34.9 - Unspecified disorder of nose and nasal sinuses (ICD-10) Difficulty sleeping ?G47.9 - Sleep disorder, unspecified (ICD-10) Chest pain ?R07.9 - Chest pain, unspecified (ICD-10) Abdominal pain ?R10.9 - Unspecified abdominal pain (ICD-10) Surgical History Hx of removal of ovary H/O section ?Z98.891 - History of uterine scar from previous surgery (ICD-10) H/O resection of rib ?Z98.890 - Other specified postprocedural states (ICD-10) History of tonsillectomy ?Z90.89 - Acquired absence of other organs (ICD-10) Hx of cholecystectomy ?Z90.49 - Acquired absence of other specified parts of digestive tract (ICD-10) History of appendectomy ?Z90.49 - Acquired absence of other specified parts of digestive tract (ICD-10) Family History Brother Prostate cancer Heart disease Sister Lung cancer Social History Narrative: She lives in [place]. Accompanied today by her son David. She does not smoke. She does not drink alcohol. What is your current living situation?: I presently have a place to live Problems where you live: no known problems Problems where you live details: none In the past 12 months, utilities in danger of being shut off: no In past 12 months, lack of transportation kept you from medical appts, meetings, work, or getting things needed for daily living: no In the past 12 mos, have been you worried that your food would run out before you had money to buy more?: never true In the past 12 mos, the food you bought just didn't last and you didn't have money to buy more?: never true Highest level of school completed/degree received: some college, no degree Smoking Status: Never smoker Do you use any of these nicotine containing products: None Second hand tobacco smoke exposure: No How often do you have a drink containing alcohol: never AUDIT-C Alcohol total score: 0 Non-prescribed substance use: denies use Caffeine: No How often does anyone, including family, friends and others, physically hurt you: never How often does anyone, including family, friends and others, insult or talk down to you: never How often does anyone, including family, friends and others, threaten you with harm: never How often does anyone, including family, friends and others, scream or curse at you: never service: No Exam Const: Vital Signs, click to edit/add: Vital Signs - 24 hr 04/08/24 01:00 04/08/24 01:30 04/08/24 01:30 Temperature 97.9 F Pulse Rate 76 Pulse Rate [Left P ulse Oximeter] 75 Respiratory Rate 18 20 Blood Pressure 195/100 H Blood Pressure [Le ft Upper Arm] 243/116 H Pulse Oximetry 96 96 96 Oxygen Delivery Me thod Room Air 04/08/24 02:02 04/08/24 02:31 Temperature Pulse Rate 75 71 Pulse Rate [Left P ulse Oximeter] Respiratory Rate 20 20 Blood Pressure 196/96 H 181/97 H Blood Pressure [Le ft Upper Arm] Pulse Oximetry 95 93 Oxygen Delivery Me thod Documenting provider has reviewed patient's vital signs: yes Common normals: oriented x3 Other: Anxious but redirectable. We work together before. Does seem at her baseline. HENMT: Common normals: normocephalic, moist oral mucous membranes and oropharynx normal Head and scalp: normocephalic Face and sinus: normal facial exam Throat: posterior oropharynx normal Eye: Common normals: PERRL, EOMs intact bilaterally and conjunctivae normal General eye: normal appearance of both eyes Conjunctiva: conjunctiva(e) normal Pupil: PERRL Neck & C-Spine: Common normals: full ROM and no lymphadenopathy Resp: Common normals: normal respiratory effort, no use of accessory muscles and clear to auscultation bilaterally Effort & inspection: able to speak in complete sentences Auscultation: clear to auscultation bilaterally Cardio: Common normals: regular rate, regular rhythm, S1 normal heart sound, S2 normal heart sound and no murmurs Rate: regular rate Rhythm: regular rhythm Heart sounds: S1 normal and S2 normal GI: Common normals: soft to palpation, non-tender, no hepatosplenomegaly and no masses Palpation: soft and no hepatosplenomegaly Other: Benign-appearing, nondistended. Bowel sounds seem hyperactive throughout. Back & Pelvis: Common normals: thoracic and lumbar spine normal to inspection Extremity: Common normals: normal to inspection and normal capillary refill Other: No obvious effusions to the joint or signs of recent trauma or injury. Neuro: Common normals: oriented x3 and CN's II-XII intact bilaterally Speech: speech normal Other: No slurring of the speech detected. Strength and movement in the feet and lower leg is normal. 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 I would say that she has regained about a 3-1/2 out of 5 strength. Left side does move normally with normal strength. Psych: Common normals: thought process normal and cooperative Thought process: normal thought process Attention/concentration: attention grossly intact Memory/cognition: memory grossly intact Insight: insight good Judgement: judgment good Skin: Common normals: no rashes or lesions noted General skin exam: no rashes or lesions noted Course Course ED Course: 73-year-old female with complex medical history and history of anxiety with multiple medication intolerance is presenting with loose stools, dizziness after a episode of diarrhea, episode of chest pain that has now resolved, lasting less than an hour and anxiety. I do think that this sounds consistent with a medication intolerance though not a true anaphylactic allergy. This makes sense with a similar response to telmisartan a couple of weeks ago and recent new titration of this medication. I have advised her to discontinue this medication. We will give famotidine 20 mg p.o. x1 and Benadryl 25 mg p.o. x1 she will be allowed oral fluids but since we are on restrictions for IV fluids, this will not be given. There are no indications for IV fluids today. We will obtain some basic labs to make sure that this is nothing more serious like it acute cardiac process, influenza, COVID, electrolyte abnormality, heart failure, kidney disease from new medication. Will placed on library monitor. She does request alprazolam, I would like to wait to make sure there are no other neurological changes but can discharge on some if warranted. Blood pressures are quite elevated and this does match her typical presentation. She would prefer not to have this treated today which is her previous request as well due to her multiple medication intolerance these and preference for her head of science to manage this. They have reluctantly allowed quite a bit of permissive hypertension due to her intolerance is and anxiety regarding them. Reevaluation(s) Time of Reevaluation #1: 03:44 Reevaluation #1: Inform patient of all negative test results. Her symptoms are slightly improved on the Benadryl and Pepcid. Certainly has had no worsening. Troponins are reassuring, remainder of labs are reassuring. I do suspect that this is related to her illness are 10 and have advised her to discontinue this and contact her head of science for further guidance. Continue the metoprolol as prescribed. Blood pressure has improved to the 180s over 90s without intervention. Telmisartan and olmesartan added to allergy list. Alarm symptoms reviewed of anaphylaxis that would warrant ED presentation. She verbalizes understanding and agreement. Continue Benadryl every 6 hours as needed for continued abdominal cramping, watery diarrhea or other symptoms of reaction. Should clear within about 48 hours though since she has only been on the medication for 4 days. Vital Signs Vital signs: Initial Vital Signs Respiratory Effort Normal, Spontaneous, Non-Labored 04/08/24 00:58 Respiratory Depth Normal 04/08/24 00:58 Respiratory Pattern Normal 04/08/24 00:58 Vital Signs Temperature 97.9 F 04/08/24 01:00 Pulse Rate 75 04/08/24 01:00 Respiratory Rate 18 04/08/24 01:00 Blood Pressure 243/116 H 04/08/24 01:00 Pulse Oximetry 96 04/08/24 01:00 Oxygen Delivery Method Room Air 04/08/24 01:00 Temperature 97.9 F 04/08/24 01:00 Pulse Rate 71 04/08/24 02:31 Respiratory Rate 20 04/08/24 02:31 Blood Pressure 181/97 H 04/08/24 02:31 Pulse Oximetry 93 04/08/24 02:31 Oxygen Delivery Method Room Air 04/08/24 01:00 Medications Administered Medications: Discontinued Medications Generic Name Dose Route Start Last Admin Trade Name Freq PRN Reason Stop Dose Admin Diphenhydramine HCl 25 mg 04/08/24 01:24 04/08/24 01:27 Diphenhydramine 25 Mg Capsule PO 04/08/24 01:25 25 mg ONCE ONE Administration Famotidine 20 mg 04/08/24 01:24 04/08/24 01:27 Famotidine 20 Mg Tablet PO 04/08/24 01:25 20 mg ONCE ONE Administration Medical Decision Making Lab Data Lab results reviewed: Yes I reviewed the patient's lab results Lab results narrative: Labs reassuring Labs: Lab Results 04/08/24 04/08/24 04/08/24 Range/Units 01:14 01:15 01:24 WBC 5.20 (4.50-11.00) K/uL RBC 5.15 (4.00-5.20) m/uL Hgb 15.0 (12.0-16.0) gm/dL Hct 45.6 (33.0-51.0) % MCV 89 (80-100) fL MCH 29 (26-34) pg MCHC 33 (32-36) gm/dL RDW Coeff of Jaylen 12.9 (11.5-15.5) % Plt Count 189 (140-440) K/uL Neut % (Auto) 45.9 (42.0-72.0) % Lymph % (Auto) 40.4 (20-44) % [place] % (Auto) 9.4 (0.0-11.0) % Eos % (Auto) 3.1 (0.0-7.0) % Baso % (Auto) 0.4 (0.0-3.0) % Neut # (Auto) 2.39 (1.7-7.0) K/uL Lymph # (Auto) 2.10 (0.90-2.90) K/uL [place] # (Auto) 0.50 (0.00-0.90) K/UL Eos # (Auto) 0.16 (0.00-0.50) K/uL Baso # (Auto) 0.02 (0.00-0.30) K/uL Abs Immat Gran (auto) 0.04 (0.00-0.30) K/uL Imm/Tot Granulo (auto) 0.8 % Sodium 140 (135-149) mmol/L Potassium 3.9 (3.6-5.1) mmol/L Chloride 105 (96-114) mmol/L Carbon Dioxide 26 (20-32) mmol/L Anion Gap 9 (7-15) mEq/L BUN 18 (7-30) mg/dL Creatinine 0.6 (0.5-1.5) mg/dL Estimated Creat Clear 39.63 Estimated GFR 95 ml/min Glucose 101 (60-115) mg/dL Calcium 9.8 (8.4-10.6) mg/dL Total Bilirubin 0.4 (0.1-1.5) mg/dL AST 24 (12-35) U/L ALT 20 (4-35) U/L Alkaline Phosphatase 95 (40-150) U/L Troponin I < 0.01 L (0.01-0.04) ng/mL C-Reactive Protein < 0.5 L (0.5-1.0) mg/dL NT-Pro-B Natriuret Pep 92 pg/mL Total Protein 7.2 (6.0-8.3) g/dL Albumin 4.4 (3.3-5.0) g/dL Urine Color Yellow (Yellow) Urine Appearance Clear (Clear) Urine pH 6.0 (5.0-8.5) Ur Specific [place] 1.015 (1.000-1.030) Urine Protein Negative (Negative) Urine Glucose (UA) Negative (Negative) Urine Ketones Negative (Negative) Urine Blood Negative (Negative) Urine Nitrite Negative (Negative) Urine Bilirubin Negative (Negative) Urine Urobilinogen 0.2 (0.2-1.0) Ur Leukocyte Esterase Negative (Negative) SARS-CoV-2 (PCR) Negative SARS-CoV-2 (Negative) Influenza Type A (PCR) Negative PCR FLU A (Negative) Influenza Type B (PCR) Negative PCR FLU B (Negative) RSV (PCR) Negative PCR RSV (Negative) POC Troponin I 0.00 L (0.01-0.04) ng/ml 04/08/24 Range/Units 03:00 WBC (4.50-11.00) K/uL RBC (4.00-5.20) m/uL Hgb (12.0-16.0) gm/dL Hct (33.0-51.0) % MCV (80-100) fL MCH (26-34) pg MCHC (32-36) gm/dL RDW Coeff of Jaylen (11.5-15.5) % Plt Count (140-440) K/uL Neut % (Auto) (42.0-72.0) % Lymph % (Auto) (20-44) % [place] % (Auto) (0.0-11.0) % Eos % (Auto) (0.0-7.0) % Baso % (Auto) (0.0-3.0) % Neut # (Auto) (1.7-7.0) K/uL Lymph # (Auto) (0.90-2.90) K/uL [place] # (Auto) (0.00-0.90) K/UL Eos # (Auto) (0.00-0.50) K/uL Baso # (Auto) (0.00-0.30) K/uL Abs Immat Gran (auto) (0.00-0.30) K/uL Imm/Tot Granulo (auto) % Sodium (135-149) mmol/L Potassium (3.6-5.1) mmol/L Chloride (96-114) mmol/L Carbon Dioxide (20-32) mmol/L Anion Gap (7-15) mEq/L BUN (7-30) mg/dL Creatinine (0.5-1.5) mg/dL Estimated Creat Clear Estimated GFR ml/min Glucose (60-115) mg/dL Calcium (8.4-10.6) mg/dL Total Bilirubin (0.1-1.5) mg/dL AST (12-35) U/L ALT (4-35) U/L Alkaline Phosphatase (40-150) U/L Troponin I (0.01-0.04) ng/mL C-Reactive Protein (0.5-1.0) mg/dL NT-Pro-B Natriuret Pep pg/mL Total Protein (6.0-8.3) g/dL Albumin (3.3-5.0) g/dL Urine Color (Yellow) Urine Appearance (Clear) Urine pH (5.0-8.5) Ur Specific [place] (1.000-1.030) Urine Protein (Negative) Urine Glucose (UA) (Negative) Urine Ketones (Negative) Urine Blood (Negative) Urine Nitrite (Negative) Urine Bilirubin (Negative) Urine Urobilinogen (0.2-1.0) Ur Leukocyte Esterase (Negative) SARS-CoV-2 (PCR) (Negative) Influenza Type A (PCR) (Negative) Influenza Type B (PCR) (Negative) RSV (PCR) (Negative) POC Troponin I 0.00 L (0.01-0.04) ng/ml ECG Data Attestation: I personally reviewed and interpreted this ECG as follows: Prior ECG tracings: available for review Interpretation: Comparison EKG 09/19/2023. Today we have normal sinus rhythm with a rate of 78. No significant ST or T-wave abnormalities. Normal intervals and axis. Stable EKG. Discharge Plan Discharge Clinical Impression: Medication side effects Patient Disposition: Home w/ Parent or Adult Condition: Improved Instructions: Adverse Drug Reaction (ED) Additional Instructions: As discussed, I do not think that you will tolerate other similar medicines to the telmisartan or almost heart an. I am sorry this occurred for you. Your blood pressure is starting to come back down which is a good sign. Continue taking your metoprolol as prescribed. Please call your head of science in the daylight hours and let them know about this reaction. I would like for you to stop the home SR gordon for now and await their recommendations for further treatment of your blood pressure. Continue taking your famotidine daily. You may use Benadryl 25 mg up to every 6 hours to help with the reaction. Since you have only been the on the olmesartan for a few days, it should be back out of your system in about 48-72 hours. He any facial swelling, tongue swelling, difficulty swallowing or persistent vomiting would warrant an ED visit. There were no signs of complications with your heart today. Activity Level: No Restrictions Discharge Diet: Regular Prescriptions: No Action aspirin 81 mg capsule 81 mg PO DAILY alprazolam 0.25 mg tablet 0.125 mg PO TID PRN nitroglycerin 0.4 mg tablet, sublingual 0.4 mg sublingual Q5M PRN Patient Comments: Every 5 Minutes X 3 as needed fluticasone propionate 50 mcg/actuation spray,suspension 1 - 2 spray INTRANASAL DAILY PRN cholecalciferol (vitamin D3) 50 mcg (2,000 unit) tablet 50 mcg PO DAILY telmisartan 20 mg tablet 10 mg PO HS metoprolol tartrate 25 mg tablet 6.25 mg PO DAILY furosemide 20 mg tablet 20 mg PO Q OTHER DAY PRN famotidine 10 mg tablet 10 mg PO DAILY diazepam 5 mg tablet 2.5 - 5 mg PO Q6H PRN (Reason: anxiety) meclizine 25 mg tablet 25 mg PO TID PRN Follow Up/Referrals: Kyra Perera PA-C [Primary Care Provider] - Stand Alone Forms: [facility] Info Instructions
[2024-04-08 01:30] VITALS: BP 195/100; PULSE 76; RESP 20; O2SAT 96
[2024-04-08 01:37] LABS: Slide Review Reflex No
[2024-04-08 01:50] LABS: Appearance Urine Clear (Clear); Bilirubin Urine Negative (Negative); Blood Urine Negative (Negative); Color Urine Yellow (Yellow); Glucose Urine Negative (Negative); Ketones Urine Negative (Negative); Leukocyte Esterase Urine Negative (Negative); Nitrite Urine Negative (Negative); Protein Urine Negative (Negative); Specific Gravity Urine 1.015 (1.000-1.030); Urobilinogen Urine 0.2 (0.2-1.0)
[2024-04-08 01:56] LABS: Albumin* 4.4 g/dL (3.3-5.0); Chloride* 105 mmol/L (96-114); Potassium* 3.9 mmol/L (3.6-5.1); Sodium* 140 mmol/L (135-149)
[2024-04-08 01:58] LABS: Bilirubin Total* 0.4 mg/dL (0.1-1.5); Creatinine* 0.6 mg/dL (0.5-1.5); Est. Creatinine Clearance* 39.63; Estimated Glomerular Filt Rate 95 ml/min
[2024-04-08 01:59] LABS: Alanine Aminotransferase* 20 U/L (4-35); Alkaline Phosphatase* 95 U/L (40-150); Anion Gap 9 mEq/L (7-15); Aspartate Amino Transferase* 24 U/L (12-35); Blood Urea Nitrogen* 18 mg/dL (7-30); Calcium* 9.8 mg/dL (8.4-10.6); Carbon Dioxide* 26 mmol/L (20-32); Glucose* 101 mg/dL (60-115); Total Protein* 7.2 g/dL (6.0-8.3)
[2024-04-08 02:00] LABS: PCR FLU A Negative PCR FLU A (Negative); PCR FLU B Negative PCR FLU B (Negative); PCR RSV Negative PCR RSV (Negative); SARS PCR* Negative SARS-CoV-2 (Negative)
[2024-04-08 02:02] VITALS: BP 196/96; PULSE 75; RESP 20; O2SAT 95
--- OUTSIDE RECORDS SUMMARY | 2024-04-08 02:07 | XMS_ITS | Encounter Summary ---
Author Organization [facility] Address [address] [place] [address] Care Team Providers Care Ticket Worker Name Role Phone GwensofiKyra Arabella Primary Care Provider Angel Hollins MD Unavailable Petra Dorado Unavailable [phone] Angel Hollins MD Unavailable Yves Ballard MD Unavailable + [phone] Reason for Visit * Reason Onset Date Comments Appointment 12/22/2023 Virtual - return vascular Encounter Details Date Type Department Care Team (Late st Contact Info) Description 12/22/2023 Telephone [facility] [place] 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 Gender Identity Not on file Sexual Orientation [...] on filedocumented in this encounter Care Teams Ticket Worker Relationship Specialty Start Date End Date Trever Kyra Bell [address] [place] [id number] PCP - General Physician Supervisory Geographer 03/31/22 Angel Hollins MD [address] [place], [place] [address] Neurology 07/20/23 Petra Dorado PA [address] [place], [place] [id number] Physician Supervisory Geographer Physical Medicine and Rehabilitation 07/20/23 Angel Hollins MD [address] [place], [place] [id number] Assigned Neuroscience Provider 08/03/23 Yves Ballard MD [address] [facility] [place] [id number] Assigned Heart and Vascular Provider 12/04/23 documented as of this encounter
--- OUTSIDE RECORDS SUMMARY | 2024-04-08 02:07 | XMS_ITS | Clinical Summary ---
Author Organization [place] Address [address] [place] [address] Care Team Providers Care Beef Breaker Name Role Phone GwenKyra farah Arabella Primary Care Provider [phone] Angel Hollins MD Unavailable [phone] Petra Dorado Unavailable [phone] Angel Hollins MD Unavailable Yves Ballard MD Unavailable [phone] Allergies Active Allergy Reactions Criticality Noted Date [...] Department Care Team Description 02/29/2024 4:20 PM COOK CHILL TECHNICIAN Virtual Visit [facility] [place] [address] [place] [address] Yves Ballard MD Hypertension, unspecified type; Atherosclerosis of abdominal aorta; Hx of Cerebrovascular accident (CVA), (H); Hyperlipidemia LDL goal <70; Statin intolerance; Lymphedema 02/26/2024 1:30 PM COOK CHILL TECHNICIAN Therapy Visit [facility] [place] [address] [address] Kyra Perera Matthew M, OT Cerebrovascular accident (CVA) due to thrombosis of left middle cerebral artery (H) (Primary Dx); Activity of daily living alteration 02/26/2024 Travel 02/21/2024 MyC Medical Advice [facility] [address] 3[address] [place] [address] Angel Hollins MD 02/20/2024 8:30 AM COOK CHILL TECHNICIAN Lab [facility] [address] [place] [address] Hyperlipidemia LDL goal <70 02/19/2024 2:15 PM COOK CHILL TECHNICIAN Therapy Visit [address] [address] Kyra Perera Matthew M, OT Cerebrovascular accident (CVA) due to thrombosis of left middle cerebral artery (H) (Primary Dx); Activity of daily living alteration 02/19/2024 Travel 01/27/2024 3:06 PM COOK CHILL TECHNICIAN - 01/28/2024 12:30 PM COOK CHILL TECHNICIAN Emergency [place] [address] [facility] [address] [place] [address] Luis Armando Dietz MD Ricklefs, Kendall D, DO Alteration in neurologic function (Primary Dx); History of stroke; Dysarthria; Facial droop; Elevated blood pressure reading with diagnosis of hypertension; Neck pain; Hypertensive urgency Discharge Disposition: Home or Self Care 01/27/2024 Travel 01/22/2024 2:15 PM COOK CHILL TECHNICIAN Therapy Visit [address] [address] Kyra Perera Matthew M, OT Cerebrovascular accident (CVA) due to thrombosis of left middle cerebral artery (H) (Primary Dx); Activity of daily living alteration 01/22/2024 1:30 PM COOK CHILL TECHNICIAN Therapy Visit [facility] [address] [place] [address] Kyra Perera Erin, PT Cerebrovascular accident (CVA) due to thrombosis of left middle cerebral artery (H) (Primary Dx) 01/22/2024 Travel 01/19/2024 2:00 PM COOK CHILL TECHNICIAN Therapy Visit [address] [address] Kyra Perera Matthew A Lymphedema (Primary Dx) 01/19/2024 Travel 01/15/2024 3:00 PM COOK CHILL TECHNICIAN Therapy Visit [address] [address] Kyra Perera Erin, PT Cerebrovascular accident (CVA) due to thrombosis of left middle cerebral artery (H) (Primary Dx) 01/15/2024 2:15 PM COOK CHILL TECHNICIAN Therapy Visit [address] [address] Kyra Perera Matthew M, OT Cerebrovascular accident (CVA) due to thrombosis of left middle cerebral artery (H) (Primary Dx); Activity of daily living alteration 01/15/2024 Travel 01/08/2024 11:15 AM CDT Therapy Visit [address] [address] Kyra Perera Matthew M, OT Cerebrovascular accident [...] on file Legal Sex Female 3:34 AM COOK CHILL TECHNICIAN Gender Identity Not on file Sexual Orientation Not on file Last Filed Vital Signs Vital Sign Reading Time Taken Comments Blood Pressure 160/93 01/28/2024 10:37 AM COOK CHILL TECHNICIAN Pulse 77 01/28/2024 10:37 AM COOK CHILL TECHNICIAN Temperature 36.8 C (98.3 F) 01/28/2024 10:37 AM COOK CHILL TECHNICIAN Respiratory Rate 20 01/28/2024 10:3 7 AM COOK CHILL TECHNICIAN Oxygen Saturation 96% 01/28/2024 10: 37 AM COOK CHILL TECHNICIAN Inhaled Oxygen Concentration - - Weight 62.9 kg (138 lb 11.4 oz) 024 10:05 PM COOK CHILL TECHNICIAN Height 157.5 cm (5' 2) 01/27/2024 10:0 5 PM COOK CHILL TECHNICIAN Body Mass Index 25.37 01/27/2024 10:05 PM COOK CHILL TECHNICIAN Plan of Treatment Health Maintenance Due Date [...] Comments CK TOTAL Routine 02/20/2024 8:29 AM COOK CHILL TECHNICIAN Hyperlipidemia LDL goal <70 COMPREHENSIVE METABOLIC PANEL Routine 02/20/2024 8:29 AM COOK CHILL TECHNICIAN Hyperlipidemia LDL goal <70 LIPID REFLEX TO DIRECT LDL PANEL Routine 02/20/2024 8:29 AM COOK CHILL TECHNICIAN Hyperlipidemia LDL goal <70 ECHO COMPLETE Routine 01/28/2024 9:20 AM COOK CHILL TECHNICIAN MR BRAIN W/O & W CONTRAST STAT 01/27/2024 5:41 PM COOK CHILL TECHNICIAN EKG 12-LEAD, TRACING ONLY STAT 01/27/2024 3:43 PM COOK CHILL TECHNICIAN CTA HEAD NECK W CONTRAST STAT 01/27/2024 3:[address] HEAD W/O CONTRAST STAT 01/27/2024 3:19 PM COOK CHILL TECHNICIAN CBC WITH PLATELETS & DIFFERENTIAL STAT 01/27/2024 3:13 PM COOK CHILL TECHNICIAN LDL CHOLESTEROL DIRECT Routine 3:13 PM COOK CHILL TECHNICIAN HEMOGLOBIN A1C Add-On 01/27/2024 3:13 PM COOK CHILL TECHNICIAN LIPID REFLEX TO DIRECT LDL PANEL Add-On 01/27/2024 3:13 PM COOK CHILL TECHNICIAN EXTRA RED TOP TUBE STAT 01/27/2024 3: 13 PM COOK CHILL TECHNICIAN CBC WITH PLATELETS AND DIFFERENTIAL STAT 01/27/2024 3:13 PM COOK CHILL TECHNICIAN EXTRA TUBE STAT 01/27/2024 3:13 PM COOK CHILL TECHNICIAN TROPONIN T, HIGH SENSITIVITY STAT 01/27/2024 3:13 PM COOK CHILL TECHNICIAN PARTIAL THROMBOPLASTIN TIME STAT 01/27/2024 3:13 PM COOK CHILL TECHNICIAN INR STAT 01/27/2024 3:13 PM COOK CHILL TECHNICIAN BASIC METABOLIC PANEL STAT 01/27/2024 3:13 PM COOK CHILL TECHNICIAN GLUCOSE BY METER STAT 01/27/2024 3:03 PM COOK CHILL TECHNICIAN ROUTINE UA WITH MICROSCOPIC REFLEX TO CULTURE STAT 09/27/2023 8:59 PM CDT from Last 3 Months or Most Recently Relevant to Health Maintenance Results * (ABNORMAL) Lipid panel reflex to direct LDL Fasting (02/20/2024 8:29 AM COOK CHILL TECHNICIAN) Only the most recent of2 resultswithin the time period is included. Cholesterol 237(H) <200 mg/dL 02/20/2024 4:11 PM COOK CHILL TECHNICIAN [facility] Triglycerides 208(H) <150 mg/dL 02/20/2024 4:11 PM COOK CHILL TECHNICIAN [facility] Direct Measure HDL 47(L) >=50 mg/dL 02/20/2024 4:11 PM COOK CHILL TECHNICIAN [facility] LDL Cholesterol Calculated 148(H) <100 mg/dL 02/20/2024 4:11 PM COOK CHILL TECHNICIAN [facility] Non HDL Cholesterol 190(H) <130 mg/dL 02/20/2024 4:11 PM COOK CHILL TECHNICIAN [facility] Patient Fasting > 8hrs? Yes 02/20/2024 4:11 PM COOK CHILL TECHNICIAN [facility] Blood BLOOD SPECIMEN / Unknown Venipuncture / Unknown 02/20/2024 8:29 AM COOK CHILL TECHNICIAN 02/20/2024 8:29 AM COOK CHILL TECHNICIAN Narrative [facility] - 02/20/2024 4:11 PM COOK CHILL TECHNICIAN Cholesterol Desirable: < 200 mg/dL Borderline High: [...] BLOOD ORDERABL ES Final Result [facility] Lab [address], [address] [place] [address]UST * (ABNORMAL) Comprehensive metabolic panel (02/20/2024 8:29 AM COOK CHILL TECHNICIAN) Sodium 142 135 - 145 mmol/L 02/20/2024 4:11 PM COOK CHILL TECHNICIAN [facility] Potassium 4.5 3.4 - 5.3 mmol/L 02/20/2024 4:11 PM COOK CHILL TECHNICIAN [facility] Carbon Dioxide (CO2) 26 22 - 29 mmol/L 02/20/2024 4:11 PM COOK CHILL TECHNICIAN [facility] Anion Gap 11 7 - 15 mmol/L 02/20/2024 4:11 PM COOK CHILL TECHNICIAN [facility] Urea Nitrogen 16.2 8.0 - 23.0 mg/dL 02/20/2024 4:11 PM COOK CHILL TECHNICIAN [facility] Creatinine 0.69 0.51 - 0.95 mg/dL 02/20/2024 4:11 PM COOK CHILL TECHNICIAN [facility] GFR Estimate >90 >60 mL/min/1.7 3m2 02/20/2024 4:11 PM COOK CHILL TECHNICIAN [facility] Comment:eGFR calculated us2020 CKD-EPI equation. Calcium 9.8 8.8 - 10.4 mg/dL 02/20/2024 4:11 PM COOK CHILL TECHNICIAN [facility] Comment:Reference intervals for this test were updated on 09/26/2023 to reflect our healthy population more accurately. There may be differences in the flagging of prior results with similar values performed with this method. Those prior results can be interpreted in the context of the updated reference intervals. Chloride 105 98 - 107 mmol/L 02/20/2024 4:11 PM COOK CHILL TECHNICIAN [facility] Glucose 103(H) 70 - 99 mg/dL 02/20/2024 4:11 PM COOK CHILL TECHNICIAN [facility] Alkaline Phosphatase 81 40 - 150 U/L 02/20/2024 4:11 PM COOK CHILL TECHNICIAN [facility] AST 26 0 - 45 U/L 02/20/2024 4:11 PM COOK CHILL TECHNICIAN [facility] ALT 23 0 - 50 U/L 02/20/2024 4:11 PM COOK CHILL TECHNICIAN [facility] Protein Total 7.2 6.4 - 8.3 g/dL 02/20/2024 4:11 PM COOK CHILL TECHNICIAN [facility] Albumin 4.4 3.5 - 5.2 g/dL 02/20/2024 4:11 PM COOK CHILL TECHNICIAN [facility] Bilirubin Total 0.4 <=1.2 mg/dL 02/20/2024 4:11 PM COOK CHILL TECHNICIAN [facility] Patient Fasting > 8hrs? Yes 02/20/2024 4:11 PM COOK CHILL TECHNICIAN [facility] Blood BLOOD SPECIMEN / Unknown Venipuncture / Unknown 02/20/2024 8:29 AM COOK CHILL TECHNICIAN 02/20/2024 8:29 AM COOK CHILL TECHNICIAN us Yves Ballard MD LAB - BLOOD ORDERABL ES Final Result [facility] Core Lab [address], [address] [address] * CK total (02/20/2024 8:29 AM COOK CHILL TECHNICIAN) Pathologist [facility] CK 48 26 - 192 U/L 02/20/2024 4:11 PM COOK CHILL TECHNICIAN [facility] Blood BLOOD SPECIMEN / Unknown Venipuncture / Unknown 02/20/2024 8:29 AM COOK CHILL TECHNICIAN 02/20/2024 8:29 AM COOK CHILL TECHNICIAN us Yves Ballard MD LAB - BLOOD ORDERABL ES Final Result LABORATORY [facility] Core Lab [address], [address] [address] * ECHO COMPLETE (01/28/2024 9:20 AM COOK CHILL TECHNICIAN) Pathologist [facility] LVEF 55-60% CARDIOLOGY RESULTS Anatomical Region Laterality Modality Echocardiography 01/28/2024 9:12 AM COOK CHILL TECHNICIAN Narrative 01/28/2024 10:40 AM COOK CHILL TECHNICIAN [id number]^LORRAINE^MARIELENA^S [facility] Echocardiography Laboratory [address] [place] [address] Name: MIYA CHOW : 1950 Study Date: 01/28/2024 09:12 AM Age: 73 yrs Gender: Female Patient Location: [facility] Reason For Study: TIA Ordering [...] Procedure Note Sandie Perez MD - 01/28/2024 [id number]^LORRAINE^MARIELENA^S [facility] Laboratory [address] [place] [id number] Name: MIYA CHOW Arabella : 1950 Study Date: 01/28/2024 09:12 AM Age: 73 yrs Gender: Female Patient Location: [facility] Reason For Study: TIA Ordering [...] w/o & w Contrast (01/27/2024 5:41 PM COOK CHILL TECHNICIAN) Anatomical Region Laterality Modality Head, SUBRAD MR NEURO, UMP MR NEURO, RAD MR Magnetic Resonance 01/27/2024 5:41 PM COOK CHILL TECHNICIAN Impressions 01/27/2024 5:55 PM COOK CHILL TECHNICIAN IMPRESSION: 1. No acute infarct. 2. Chronic intracranial changes described above. Narrative 01/27/2024 5:55 PM COOK CHILL TECHNICIAN EXAM: MR BRAIN W/O and W CONTRAST LOCATION: [facility] DATE: 01/27/2024 INDICATION: eval for [...] MR BRAIN W/O and W CONTRAST LOCATION: [facility] DATE: 01/27/2024 INDICATION: eval for [...] EKG 12-lead, tracing only (01/27/2024 3:43 PM COOK CHILL TECHNICIAN) Systolic Blood Pressure mmHg RADIOLOGY RESULTS Diastolic Blood Pressure mmHg RADIOLOGY RESULTS Ventricular Rate 70 BPM RAD IOLOGY RESULTS Atrial Rate 70 BPM RADIOLOG Y RESULTS WY Interval 162 ms RADIOLOG Y RESULTS QRS Duration 80 ms RADIOLO GY RESULTS QT 386 ms RADIOLOGY RESULTS QTc 416 ms RADIOLOGY RESULTS P [place] 49 degrees RADIOLOGY RESULTS R AXIS 10 degrees RADIOLOGY RESULTS T [place] 28 degrees RADIOLOGY RESULTS Interpretation ECG Sinus rhythm Minimal voltage criteria for LVH, may be normal variant ( R in aVL ) Borderline ECG When compared with ECG of 27-Sep-2023 20:06, No significant change was found Confirmed by - EMERGENCY ROOM, PHYSICIAN ([id number]), telegraph editor TERRENCE JONES (Tianna) on 01/29/2024 7:06:56 AM RADIOLOGY RESULTS 01/27/2024 3:43 PM COOK CHILL TECHNICIAN 01/29/2024 7:06 AM COOK CHILL TECHNICIAN us Luis Armando Dietz MD ECG ORDERABLES Edited Resul t - Final RADIOLOGY RESULTS * CTA Head Neck with Contrast (01/27/2024 3:27 PM COOK CHILL TECHNICIAN) Anatomical Region Laterality Modality Head, SUBRAD CT NEURO, SUBRA D CT NEURO, UMP CT NEURO, RAD CT Computed Tomography 01/27/2024 3:27 PM COOK CHILL TECHNICIAN Impressions 01/27/2024 3:53 PM COOK CHILL TECHNICIAN IMPRESSION: HEAD CT: 1. No acute intracranial [...] discussed at 1547 Narrative 01/27/2024 3:53 PM COOK CHILL TECHNICIAN EXAM: CTA HEAD NECK W CONTRAST, CT HEAD W/O CONTRAST LOCATION: [facility] DATE: 01/27/2024 INDICATION: Code Stroke [...] moderate and severe stenosis of the right LOOK OUT TOWER FIRE WATCHER. 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 Severe stenosis of the proximal A1 segment of the left DARIUSZ, now witha short segment of complete nonopacification. POSTERIOR CIRCULATION: Unchanged appearance of the mildly bulbous basilartip. No discrete aneurysm. Unchanged moderate and severe stenosis of theright LOOK OUT TOWER FIRE WATCHER. DURAL VENOUS SINUSES: Expected enhancement of the [...] findings discussed with Dr. Dietz on 01/27/2024 [id number] and CTA discussed at 1547 Luis Armando Dietz MD [facility] CT ORDERABLES Final Resu lt * CT Head w/o Contrast (01/27/2024 3:19 PM COOK CHILL TECHNICIAN) Anatomical Region Laterality Modality Head, SUBRAD CT NEURO, SUBRA D CT NEURO, UMP CT NEURO, RAD CT Computed Tomography 01/27/2024 3:19 PM COOK CHILL TECHNICIAN Impressions 01/27/2024 3:53 PM COOK CHILL TECHNICIAN IMPRESSION: HEAD CT: 1. No acute intracranial [...] discussed at 1547 Narrative 01/27/2024 3:53 PM COOK CHILL TECHNICIAN EXAM: CTA HEAD NECK W CONTRAST, CT HEAD W/O CONTRAST LOCATION: [facility] DATE: 01/27/2024 INDICATION: Code Stroke [...] moderate and severe stenosis of the right LOOK OUT TOWER FIRE WATCHER. DURAL VENOUS SINUSES: Expected enhancement of the [...] W CONTRAST, CT HEAD W/O CONTRAST LOCATION: [facility] DATE: 01/27/2024 INDICATION: Code Stroke [...] CIRCULATION: Unchanged severe multifocal stenosis of the P1rgomacwo of the right MCA and mild stenosis of the M1 segment of the rightMCA. Severe stenosis of the proximal A1 segment of the left DARIUSZ, now witha short segment of complete nonopacification. POSTERIOR CIRCULATION: Unchanged appearance of the mildly bulbous basilartip. No discrete aneurysm. Unchanged moderate and severe stenosis of theright LOOK OUT TOWER FIRE WATCHER. DURAL VENOUS SINUSES: Expected enhancement of the [...] findings discussed with Dr. Dietz on 01/27/2024 [id number] and CTA discussed at 1547 Luis Armando Dietz MD [facility] CT ORDERABLES Final Resu lt * Extra Red Top Tube (01/27/2024 3:13 PM COOK CHILL TECHNICIAN) [facility] Specimen [facility] 01/27/2024 4:32 PM COOK CHILL TECHNICIAN [facility] Blood BLOOD SPECIMEN / Unknown Venipuncture / Unknown 01/27/2024 3:13 PM COOK CHILL TECHNICIAN 01/27/2024 3:17 PM COOK CHILL TECHNICIAN us Jarvis Trevizo MD LAB - BLOOD ORDERABLES Fi nal Result [facility] Acute Care Lab [address] Lab (1st floor, no room number) [place] [address] * (ABNORMAL) CBC with platelets and differential (01/27/2024 3:13 PM COOK CHILL TECHNICIAN) WBC Count 5.2 4.0 - 11.0 10e3/uL 01/27/2024 3:21 PM COOK CHILL TECHNICIAN [facility] RBC Count 5.25(H) 3.80 - 5.20 10e6/uL 01/27/2024 3:21 PM COOK CHILL TECHNICIAN [facility] Hemoglobin 15.5 11.7 - 15.7 g/dL 01/27/2024 3:21 PM COOK CHILL TECHNICIAN [facility] Hematocrit 46.9 35.0 - 47.0 % 01/27/2024 3:21 PM COOK CHILL TECHNICIAN [facility] MCV 89 78 - 100 fL 01/27/2024 3:21 PM COOK CHILL TECHNICIAN [facility] MCH 29.5 26.5 - 33.0 pg 01/27/2024 3:21 PM COOK CHILL TECHNICIAN [facility] MCHC 33.0 31.5 - 36.5 g/dL 01/27/2024 3:21 PM COOK CHILL TECHNICIAN [facility] RDW 12.8 10.0 - 15.0 % 01/27/2024 3:21 PM COOK CHILL TECHNICIAN [facility] Platelet Count 215 150 - 450 10e3/uL 01/27/2024 3:21 PM COOK CHILL TECHNICIAN [facility] % Neutrophils 56 % 01/27/2024 3:21 PM COOK CHILL TECHNICIAN [facility] % Lymphocytes 31 % 01/27/2024 3:21 PM COOK CHILL TECHNICIAN [facility] % Monocytes 10 % 01/27/2024 3:21 PM COOK CHILL TECHNICIAN [facility] % Eosinophils 2 % 01/27/2024 3:21 PM COOK CHILL TECHNICIAN [facility] % Basophils 0 % 01/27/2024 3:21 PM COOK CHILL TECHNICIAN [facility] % Immature Granulocytes 0 % 01/27/2024 3:21 PM COOK CHILL TECHNICIAN [facility] NRBCs per 100 WBC 0 <1 /100 024 3:21 PM COOK CHILL TECHNICIAN [facility] Absolute Neutrophils 2.9 1.6 - 8.3 10e3/uL 01/27/2024 3:21 PM COOK CHILL TECHNICIAN [facility] Absolute Lymphocytes 1.6 0.8 - 5.3 10e3/uL 01/27/2024 3:21 PM COOK CHILL TECHNICIAN [facility] Absolute Monocytes 0.5 0.0 - 1.3 10e3/uL 01/27/2024 3:21 PM COOK CHILL TECHNICIAN [facility] Absolute Eosinophils 0.1 0.0 - 0.7 10e3/uL 01/27/2024 3:21 PM COOK CHILL TECHNICIAN [facility] Absolute Basophils 0.0 0.0 - 0.2 10e3/uL 01/27/2024 3:21 PM COOK CHILL TECHNICIAN LABORATORY Absolute Immature Granulocytes 0.0 <=0.4 10e3/uL 01/27/2024 3:21 PM COOK CHILL TECHNICIAN [facility] Absolute NRBCs 0.0 10e3/uL 01/27/2024 3:21 PM COOK CHILL TECHNICIAN LABORATORY Blood BLOOD SPECIMEN / Unknown Venipuncture / Unknown 01/27/2024 3:13 PM COOK CHILL TECHNICIAN 01/27/2024 3:17 PM COOK CHILL TECHNICIAN Luis Armando Dietz MD LAB - BLOOD ORDERABLES Final Result LABORATORY [facility] Acute Care Lab [address] [facility] Lab (1st floor, no room number) [place] [address], [facility] * Troponin T, High Sensitivity (01/27/2024 3:13 PM COOK CHILL TECHNICIAN) Pathologist [facility] Troponin T, High Sensitivity 7 <=14 ng/L 01/27/2024 3:43 PM COOK CHILL TECHNICIAN [facility] Comment: Either a High Sensitivity [...] Unknown Venipuncture / Unknown 01/27/2024 3:13 PM COOK CHILL TECHNICIAN 01/27/2024 3:17 PM COOK CHILL TECHNICIAN us Luis Armando Dietz MD LAB - BLOOD ORDERABLES Final Result [facility] Care Lab [address] Lab (1st floor, no room number) [place] [id number] * INR (01/27/2024 3:13 PM COOK CHILL TECHNICIAN) INR 0.93 0.85 - 1.15 01/27/2024 3:37 PM COOK CHILL TECHNICIAN [facility] Blood BLOOD SPECIMEN / Unknown Venipuncture / Unknown 01/27/2024 3:13 PM COOK CHILL TECHNICIAN 01/27/2024 3:17 PM COOK CHILL TECHNICIAN us Luis Armando Dietz MD LAB - BLOOD ORDERABLES Final Result Performing Organization Address [facility]/ZIP Co de Phone Number [facility] Lab [address] Lab (1st floor, no room number) [place] [id number] * Partial thromboplastin time (01/27/2024 3:13 PM COOK CHILL TECHNICIAN) aPTT 32 22 - 38 Seconds 01/27/2024 3:37 PM COOK CHILL TECHNICIAN [facility] Blood BLOOD SPECIMEN / Unknown Venipuncture / Unknown 01/27/2024 3:13 PM COOK CHILL TECHNICIAN 01/27/2024 3:17 PM COOK CHILL TECHNICIAN us Luis Armando Dietz MD LAB - BLOOD ORDERABLES Final Result Performing Organization Address City/[facility]/ZIP Co de Phone Number [facility] Lab [address] Lab (1st floor, no room number) [place] [address] * (ABNORMAL) LDL cholesterol direct (01/27/2024 3:13 PM COOK CHILL TECHNICIAN) LDL Cholesterol Direct 142(H) <100 mg/dL 01/28/2024 1:47 AM COOK CHILL TECHNICIAN [facility] Comment: Age 2-19 years: Desirable: < 110 mg/dL Borderline High: 110-129 mg/dL High: >= 130 mg/dL Age 20 years and older: Desirable: < 100 mg/dL Above Desirable: 100-129 mg/dL Borderline High: 130-159 mg/dL High: 160-189 mg/dL Very High: >= 190 mg/dL Blood BLOOD SPECIMEN / Unknown Venipuncture / Unknown 01/27/2024 3:13 PM COOK CHILL TECHNICIAN 01/27/2024 3:17 PM COOK CHILL TECHNICIAN Marielena Peters PA-C LAB - BLOOD ORDERABLES Fin al Result LABORATORY [facility] [place] Core Lab [address], [address] [place] [address] * (ABNORMAL) Hemoglobin A1c (01/27/2024 3:13 PM COOK CHILL TECHNICIAN) Pathologist [facility] Estimated Average Glucose 126(H) <117 mg/dL 01/27/2024 8:39 PM COOK CHILL TECHNICIAN LABORATORY Hemoglobin A1C 6.0(H) <5.7 % 01/27/2024 8:39 PM COOK CHILL TECHNICIAN LABORATORY Comment: Normal <5.7% Prediabetes 5.7-6.4% Diabetes 6.5% or higher Note: Adopted from ADA consensus guidelines. Blood BLOOD SPECIMEN / Unknown Venipuncture / Unknown 01/27/2024 3:13 PM COOK CHILL TECHNICIAN 01/27/2024 3:17 PM COOK CHILL TECHNICIAN Marielena Peters PA-C LAB - BLOOD ORDERABLES Fin al Result LABORATORY [facility] Acute Care Lab [address] Lab (1st floor, no room number) [place] [address], [facility] * (ABNORMAL) Basic metabolic panel (01/27/2024 3:13 PM COOK CHILL TECHNICIAN) Sodium 140 135 - 145 mmol/L 01/27/2024 3:43 PM COOK CHILL TECHNICIAN LABORATORY Potassium 4.0 3.4 - 5.3 mmol/L 01/27/2024 3:43 PM COOK CHILL TECHNICIAN LABORATORY Chloride 102 98 - 107 mmol/L 01/27/2024 3:43 PM COOK CHILL TECHNICIAN LABORATORY Carbon Dioxide (CO2) 25 22 - 29 mmol/L 01/27/2024 3:43 PM COOK CHILL TECHNICIAN LABORATORY Anion Gap 13 7 - 15 mmol/L 01/27/2024 3:43 PM COOK CHILL TECHNICIAN LABORATORY Urea Nitrogen 17.2 8.0 - 23.0 mg/dL 01/27/2024 3:43 PM [facility] Creatinine 0.65 0.51 - 0.95 mg/dL 01/27/2024 3:43 PM COOK CHILL TECHNICIAN LABORATORY GFR Estimate >90 >60 mL/min/1.7 3m2 01/27/2024 3:43 PM [facility] Comment:eGFR calculated usin 2020 CKD-EPI equation. Calcium 9.6 8.8 - 10.4 mg/dL 01/27/2024 3:43 PM [facility] Comment:Reference intervals for this test were updated on 09/26/2023 to reflect our healthy population more accurately. There may be differences in the flagging of prior results with similar values performed with this method. Those prior results can be interpreted in the context of the updated reference intervals. Glucose 118(H) 70 - 99 mg/dL 01/27/2024 3:43 PM [facility] Blood BLOOD SPECIMEN / Unknown Venipuncture / Unknown 01/27/2024 3:13 PM COOK CHILL TECHNICIAN 01/27/2024 3:17 PM COOK CHILL TECHNICIAN Luis Armando Dietz MD LAB - BLOOD ORDERABLES Final Result LABORATORY [facility] Acute Care Lab [address] [facility] Lab (1st floor, no room number) [place] [address], [facility] * (ABNORMAL) Glucose by meter (01/27/2024 3:03 PM COOK CHILL TECHNICIAN) GLUCOSE BY METER POCT 110(H) 70 - 99 mg/dL 01/27/2024 3:10 PM COOK CHILL TECHNICIAN [facility] POC Comment:Dr/RN Notified Blood, Capillary BLOOD SPECIMEN / Unknown 01/27/2024 3:03 PM COOK CHILL TECHNICIAN 01/27/2024 3:10 PM COOK CHILL TECHNICIAN Luis Armando Dietz MD LAB - BEAKER POCT Final Resu lt RH [facility] POC [facility] [address] [facility] Lab (1[facility], no room number) [place] [address], [facility] * (ABNORMAL) UA with Microscopic reflex to [...] mg/dL 09/27/2023 9:15 PM CDT LABORATORY Specific [place] Urine 1.013 1.003 - 1.035 09/27/2023 9:15 [...] - URINE ORDERABLES Final Result RH LABORATORY [facility] [address] [facility] Lab (1st floor, no room number) [place] [address], [facility] from Last 3 Months or Most Recently Relevant to Health Maintenance Insurance MEDICARE MEDICARE MEDICARE [facility] MEDICARE MEDICARE MEDICARE [employer] [id number] Advance Directives For more information, please contact: [phone] * Full Code (Latest Code Status on [...] patie nt/ legal decision maker Care Teams Beef Breaker Relationship Specialty Start Date End Date Kyra Perera [address] [place] [address] PCP - General Physician [employer] 03/31/22 Angel Hollins MD [address] [address] Neurology 07/20/23 Petra Dorado PA [address] [place] [address] Physician [employer] Physical Medicine and Rehabilitation 07/20/23 Angel Hollins MD [address] [address] Assigned Neuroscience Provider 08/03/23 Yves Ballard MD [address] [facility] [address] [address] Assigned Heart and Vascular Provider 12/04/23
--- OUTSIDE RECORDS SUMMARY | 2024-04-08 02:07 | XMS_ITS | Clinical Summary ---
Author Organization [facility] Address [address] [place] [address] Care Team Providers Care Tmd Teacher Name Role Phone Bettye Davis MD Primary [...] for each transition of care or referral. [employer] Allergies Active Allergy Reactions Criticality Noted Date [...] age to complete this topic Care Teams Tmd Teacher Relationship Specialty Start Date End Date Bettye Davis MD [address] [place], [place] [id number] PCP - General 06/13/10
--- OUTSIDE RECORDS SUMMARY | 2024-04-08 02:07 | XMS_ITS | Referral Summary ---
Author Organization [place] Address [address] [facility] [place] [address] Care Team Providers Care Riveter Hand Name Role Phone Kyra Perera Primary Care Provider Angel Hollins MD Unavailable Petra Dorado Unavailable [phone] Angel Hollins MD Unavailable Yves Ballard MD Unavailable Encounters Date Type Department Care Team Description 02/29/2024 4:20 PM MEDICAL DRIVER Virtual Visit [facility] [place] [address] [facility] [place] [phone] Yves Ballard MD Hypertension, unspecified type; Atherosclerosis of abdominal aorta; Hx of Cerebrovascular accident (CVA), (H); Hyperlipidemia LDL goal <70; Statin intolerance; Lymphedema 02/26/2024 Travel 02/26/2024 1:30 PM MEDICAL DRIVER Therapy Visit [facility] [address] [address] Kyra Perera Matthew M, PAM Cerebrovascular accident (CVA) due to thrombosis of left middle cerebral artery (H) (Primary Dx); Activity of daily living alteration 02/21/2024 MyC Medical Advice [facility] [address] 3rd [place] [phone] Angel Hollins MD 02/20/2024 8:30 AM MEDICAL DRIVER Lab [facility] [address] [place] [address] Hyperlipidemia LDL goal <70 02/19/2024 Travel 02/19/2024 2:15 PM MEDICAL DRIVER Therapy Visit [address] [address] Kyra Perera Matthew M, OT Cerebrovascular accident (CVA) due to thrombosis of left middle cerebral artery (H) (Primary Dx); Activity of daily living alteration 01/27/2024 3:06 PM MEDICAL DRIVER - 01/28/2024 12:30 PM MEDICAL DRIVER Emergency [place] [address] [facility] [address] [place] [address] Luis Armando Dietz MD Ricklefs, Kendall D, DO Alteration in neurologic function (Primary Dx); History of stroke; Dysarthria; Facial droop; Elevated blood pressure reading with diagnosis of hypertension; Neck pain; Hypertensive urgency Discharge Disposition: Home or Self Care 01/27/2024 Travel 01/22/2024 Travel 01/22/2024 1:30 PM MEDICAL DRIVER Therapy Visit [address] [address] Kyra Perera Erin, JESSICA Cerebrovascular accident (CVA) due to thrombosis of left middle cerebral artery (H) (Primary Dx) 01/22/2024 2:15 PM MEDICAL DRIVER Therapy Visit [address] [address] Kyra Perera Matthew M, OT Cerebrovascular accident (CVA) due to thrombosis of left middle cerebral artery (H) (Primary Dx); Activity of daily living alteration 01/19/2024 Travel 01/19/2024 2:00 PM MEDICAL DRIVER Therapy Visit [address] [address] Kyra Perera Matthew A Lymphedema (Primary Dx) 01/15/2024 Travel 01/15/2024 3:00 PM MEDICAL DRIVER Therapy Visit [address] [address] Kyra Perera Erin, PT Cerebrovascular accident (CVA) due to thrombosis of left middle cerebral artery (H) (Primary Dx) 01/15/2024 2:15 PM MEDICAL DRIVER Therapy Visit [address] [address] Kyra Perera Matthew M, OT Cerebrovascular accident (CVA) due to thrombosis of left middle cerebral artery (H) (Primary Dx); Activity of daily living alteration 01/08/2024 Travel 01/08/2024 11:15 AM CDT Therapy Visit [address] [address] Kyra Perera Matthew M, OT Cerebrovascular accident [...] on file Legal Sex Female 3:34 AM MEDICAL DRIVER Gender Identity Not on file Sexual Orientation Not on file Last Filed Vital Signs Vital Sign Reading Time Taken Comments Blood Pressure 160/93 01/28/2024 10:37 AM MEDICAL DRIVER Pulse 77 01/28/2024 10:37 AM MEDICAL DRIVER Temperature 36.8 C (98.3 F) 01/28/2024 10:37 AM MEDICAL DRIVER Respiratory Rate 20 01/28/2024 10:3 7 AM MEDICAL DRIVER Oxygen Saturation 96% 01/28/2024 10: 37 AM MEDICAL DRIVER Inhaled Oxygen Concentration - - Weight 62.9 kg (138 lb 11.4 oz) 024 10:05 PM MEDICAL DRIVER Height 157.5 cm (5' 2) 01/27/2024 10:0 5 PM MEDICAL DRIVER Body Mass Index 25.37 01/27/2024 10:05 PM MEDICAL DRIVER Plan of Treatment Not on file Procedures Procedure Name Priority Date/Time Associated Diagnosis Comments CK TOTAL Routine 02/20/2024 8:29 AM MEDICAL DRIVER Hyperlipidemia LDL goal <70 COMPREHENSIVE METABOLIC PANEL Routine 02/20/2024 8:29 AM MEDICAL DRIVER Hyperlipidemia LDL goal <70 LIPID REFLEX TO DIRECT LDL PANEL Routine 02/20/2024 8:29 AM MEDICAL DRIVER Hyperlipidemia LDL goal <70 ECHO COMPLETE Routine 01/28/2024 9:20 AM MEDICAL DRIVER MR BRAIN W/O & W CONTRAST STAT 01/27/2024 5:41 PM MEDICAL DRIVER EKG 12-LEAD, TRACING ONLY STAT 01/27/2024 3:43 PM MEDICAL DRIVER CTA HEAD NECK W CONTRAST STAT 01/27/2024 3:[address] HEAD W/O CONTRAST STAT 01/27/2024 3:19 PM MEDICAL DRIVER CBC WITH PLATELETS & DIFFERENTIAL STAT 01/27/2024 3:13 PM MEDICAL DRIVER LDL CHOLESTEROL DIRECT Routine 3:13 PM MEDICAL DRIVER HEMOGLOBIN A1C Add-On 01/27/2024 3:13 PM MEDICAL DRIVER LIPID REFLEX TO DIRECT LDL PANEL Add-On 01/27/2024 3:13 PM MEDICAL DRIVER EXTRA RED TOP TUBE STAT 01/27/2024 3: 13 PM MEDICAL DRIVER CBC WITH PLATELETS AND DIFFERENTIAL STAT 01/27/2024 3:13 PM MEDICAL DRIVER EXTRA TUBE STAT 01/27/2024 3:13 PM MEDICAL DRIVER TROPONIN T, HIGH SENSITIVITY STAT 01/27/2024 3:13 PM MEDICAL DRIVER PARTIAL THROMBOPLASTIN TIME STAT 01/27/2024 3:13 PM MEDICAL DRIVER INR STAT 01/27/2024 3:13 PM MEDICAL DRIVER BASIC METABOLIC PANEL STAT 01/27/2024 3:13 PM MEDICAL DRIVER GLUCOSE BY METER STAT 01/27/2024 3:03 PM MEDICAL DRIVER ROUTINE UA WITH MICROSCOPIC REFLEX TO CULTURE STAT 09/27/2023 8:59 PM CDT from Last 3 Months or Most Recently Relevant to Health Maintenance Results * (ABNORMAL) Lipid panel reflex to direct LDL Fasting (02/20/2024 8:29 AM MEDICAL DRIVER) Only the most recent of2 resultswithin the time period is included. Cholesterol 237(H) <200 mg/dL 02/20/2024 4:11 PM MEDICAL DRIVER [facility] Triglycerides 208(H) <150 mg/dL 02/20/2024 4:11 PM MEDICAL DRIVER [facility] Direct Measure HDL 47(L) >=50 mg/dL 02/20/2024 4:11 PM MEDICAL DRIVER [facility] LDL Cholesterol Calculated 148(H) <100 mg/dL 02/20/2024 4:11 PM MEDICAL DRIVER [facility] Non HDL Cholesterol 190(H) <130 mg/dL 02/20/2024 4:11 PM MEDICAL DRIVER [facility] Patient Fasting > 8hrs? Yes 02/20/2024 4:11 PM MEDICAL DRIVER [facility] Blood BLOOD SPECIMEN / Unknown Venipuncture / Unknown 02/20/2024 8:29 AM MEDICAL DRIVER 02/20/2024 8:29 AM MEDICAL DRIVER Narrative [facility] - 02/20/2024 4:11 PM MEDICAL DRIVER Cholesterol Desirable: < 200 mg/dL Borderline High: [...] BLOOD ORDERABL ES Final Result [facility] [place] [facility] [address] [facility], Room [address] [place] [phone] * (ABNORMAL) Comprehensive metabolic panel (02/20/2024 8:29 AM MEDICAL DRIVER) Sodium 142 135 - 145 mmol/L 02/20/2024 4:11 PM MEDICAL DRIVER [facility] Potassium 4.5 3.4 - 5.3 mmol/L 02/20/2024 4:11 PM MEDICAL DRIVER [facility] Carbon Dioxide (CO2) 26 22 - 29 mmol/L 02/20/2024 4:11 PM MEDICAL DRIVER [facility] Anion Gap 11 7 - 15 mmol/L 02/20/2024 4:11 PM MEDICAL DRIVER [facility] Urea Nitrogen 16.2 8.0 - 23.0 mg/dL 02/20/2024 4:11 PM MEDICAL DRIVER [facility] Creatinine 0.69 0.51 - 0.95 mg/dL 02/20/2024 4:11 PM MEDICAL DRIVER [facility] GFR Estimate >90 >60 mL/min/1.7 3m2 02/20/2024 4:11 PM MEDICAL DRIVER [facility] Comment:eGFR calculated us2020 CKD-EPI equation. Calcium 9.8 8.8 - 10.4 mg/dL 02/20/2024 4:11 PM MEDICAL DRIVER [facility] Comment:Reference intervals for this test were updated on 09/26/2023 to reflect our healthy population more accurately. There may be differences in the flagging of prior results with similar values performed with this method. Those prior results can be interpreted in the context of the updated reference intervals. Chloride 105 98 - 107 mmol/L 02/20/2024 4:11 PM MEDICAL DRIVER [facility] Glucose 103(H) 70 - 99 mg/dL 02/20/2024 4:11 PM MEDICAL DRIVER [facility] Alkaline Phosphatase 81 40 - 150 U/L 02/20/2024 4:11 PM MEDICAL DRIVER [facility] AST 26 0 - 45 U/L 02/20/2024 4:11 PM MEDICAL DRIVER [facility] ALT 23 0 - 50 U/L 02/20/2024 4:11 PM MEDICAL DRIVER [facility] Protein Total 7.2 6.4 - 8.3 g/dL 02/20/2024 4:11 PM MEDICAL DRIVER [facility] Albumin 4.4 3.5 - 5.2 g/dL 02/20/2024 4:11 PM MEDICAL DRIVER [facility] Bilirubin Total 0.4 <=1.2 mg/dL 02/20/2024 4:11 PM MEDICAL DRIVER [facility] Patient Fasting > 8hrs? Yes 02/20/2024 4:11 PM MEDICAL DRIVER [facility] Blood BLOOD SPECIMEN / Unknown Venipuncture / Unknown 02/20/2024 8:29 AM MEDICAL DRIVER 02/20/2024 8:29 AM MEDICAL DRIVER us Yves Ballard MD LAB - BLOOD ORDERABL ES Final Result [facility] [place] [facility] [address] [facility] [address] Building, [address] [place] [phone] * CK total (02/20/2024 8:29 AM MEDICAL DRIVER) CK 48 26 - 192 U/L 02/20/2024 4:11 PM MEDICAL DRIVER [facility] Blood BLOOD SPECIMEN / Unknown Venipuncture / Unknown 02/20/2024 8:29 AM MEDICAL DRIVER 02/20/2024 8:29 AM MEDICAL DRIVER us Yves Ballard MD LAB - BLOOD ORDERABL ES Final Result [facility] Core Lab [address] [facility], Room [address] [place], [place] [phone] * ECHO COMPLETE (01/28/2024 9:20 AM MEDICAL DRIVER) LVEF 55-60% CARDIOLOGY RESULTS Anatomical Region Laterality Modality Echocardiography 01/28/2024 9:12 AM MEDICAL DRIVER Narrative 01/28/2024 10:40 AM MEDICAL DRIVER [id number]^LORRAINE^MARIELENA^[facility] Echocardiography Laboratory [address] [place] [id number] Name: MIYA CHOW : 1950 Study Date: 01/28/2024 09:12 AM Age: 73 yrs Gender: Female Patient Location: [facility] Reason For Study: TIA [...] Procedure Note Sandie Perez MD - 01/28/2024 [id number]^LORRAINE^MARIELENA^[facility] Echocardiography Laboratory [address] [place] [id number] Name: MIYA CHOW : 1950 Study Date: 01/28/2024 09:12 AM Age: 73 yrs Gender: Female Patient Location: [facility] Reason For Study: TIA [...] w/o & w Contrast (01/27/2024 5:41 PM MEDICAL DRIVER) Anatomical Region Laterality Modality Head, SUBRAD MR NEURO, UMP MR NEURO, RAD MR Magnetic Resonance 01/27/2024 5:41 PM MEDICAL DRIVER Impressions 01/27/2024 5:55 PM MEDICAL DRIVER IMPRESSION: 1. No acute infarct. 2. Chronic intracranial changes described above. Narrative 01/27/2024 5:55 PM MEDICAL DRIVER EXAM: MR BRAIN W/O and W CONTRAST LOCATION: [facility] DATE: 01/27/2024 INDICATION: eval for stroke, Headache, [...] MR BRAIN W/O and W CONTRAST LOCATION: [facility] DATE: 01/27/2024 INDICATION: eval for stroke, Headache, [...] EKG 12-lead, tracing only (01/27/2024 3:43 PM MEDICAL DRIVER) Systolic Blood Pressure mmHg RADIOLOGY RESULTS Diastolic Blood Pressure mmHg RADIOLOGY RESULTS Ventricular Rate 70 BPM RAD IOLOGY RESULTS Atrial Rate 70 BPM RADIOLOG Y RESULTS AL Interval 162 ms RADIOLOG Y RESULTS QRS Duration 80 ms RADIOLO GY RESULTS QT 386 ms RADIOLOGY RESULTS QTc 416 ms RADIOLOGY RESULTS P [place] 49 degrees RADIOLOGY RESULTS R AXIS 10 degrees RADIOLOGY RESULTS T [place] 28 degrees RADIOLOGY RESULTS Interpretation ECG Sinus rhythm Minimal voltage criteria for LVH, may be normal variant ( R in aVL ) Borderline ECG When compared with ECG of 27-Sep-2023 20:06, No significant change was found Confirmed by - EMERGENCY ROOM, PHYSICIAN ([id number]), supervising editor news reel TERRENCE JONES (Tianna) on 01/29/2024 7:06:56 AM RADIOLOGY RESULTS 01/27/2024 3:43 PM MEDICAL DRIVER 01/29/2024 7:06 AM MEDICAL DRIVER us Luis Armando Dietz MD ECG ORDERABLES Edited Resul t - Final RADIOLOGY RESULTS * CTA Head Neck with Contrast (01/27/2024 3:27 PM MEDICAL DRIVER) Anatomical Region Laterality Modality Head, SUBRAD CT NEURO, SUBRA D CT NEURO, UMP CT NEURO, RAD CT Computed Tomography 01/27/2024 3:27 PM MEDICAL DRIVER Impressions 01/27/2024 3:53 PM MEDICAL DRIVER IMPRESSION: HEAD CT: 1. 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 Severe stenosis of the proximal A1 segment of the left DARIUSZ, now witha short segment of complete nonopacification. POSTERIOR CIRCULATION: Unchanged appearance of the mildly bulbous basilartip. No discrete aneurysm. 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 DURAL VENOUS SINUSES: Expected enhancement of the [...] findings discussed with Dr. Dietz on 01/27/2024 [id number] and CTA discussed at 1547 Luis Armando Dietz MD [facility] CT ORDERABLES Final Resu lt * CT Head w/o Contrast (01/27/2024 3:19 PM MEDICAL DRIVER) Anatomical Region Laterality Modality Head, SUBRAD CT NEURO, SUBRA D CT NEURO, UMP CT NEURO, RAD CT Computed Tomography 01/27/2024 3:19 PM MEDICAL DRIVER Impressions 01/27/2024 3:53 PM MEDICAL DRIVER IMPRESSION: HEAD CT: 1. 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 DURAL VENOUS SINUSES: Expected enhancement of the [...] W CONTRAST, CT HEAD W/O CONTRAST LOCATION: [facility] DATE: 01/27/2024 INDICATION: Code Stroke to evaluate [...] CIRCULATION: Unchanged severe multifocal stenosis of the [id number] of the right MCA and mild stenosis of the M1 segment of the rightMCA. Severe stenosis of the proximal A1 segment of the left DARIUSZ, now witha short segment of complete nonopacification. POSTERIOR CIRCULATION: Unchanged appearance of the mildly bulbous basilartip. No discrete aneurysm. 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 DURAL VENOUS SINUSES: Expected enhancement of the [...] findings discussed with Dr. Dietz on 01/27/2024 [id number] and CTA discussed at 1547 Luis Armando Dietz MD [facility] CT ORDERABLES Final Resu lt * Extra Red Top Tube (01/27/2024 3:13 PM MEDICAL DRIVER) [facility] Hold Specimen [facility] 01/27/2024 4:32 PM MEDICAL DRIVER LABORATORY Blood BLOOD SPECIMEN / Unknown Venipuncture / Unknown 01/27/2024 3:13 PM MEDICAL DRIVER 01/27/2024 3:17 PM MEDICAL DRIVER us Jarvis Trevizo MD LAB - BLOOD ORDERABLES Fi nal Result [facility]AT[facility] Acute Care Lab [address] Lab (1st floor, no room number) [place] [address], [facility] * (ABNORMAL) CBC with platelets and differential (01/27/2024 3:13 PM MEDICAL DRIVER) WBC Count 5.2 4.0 - 11.0 10e3/uL 01/27/2024 3:21 PM MEDICAL DRIVER [facility] RBC Count 5.25(H) 3.80 - 5.20 10e6/uL 01/27/2024 3:21 PM MEDICAL DRIVER [facility] Hemoglobin 15.5 11.7 - 15.7 g/dL 01/27/2024 3:21 PM MEDICAL DRIVER [facility] Hematocrit 46.9 35.0 - 47.0 % 01/27/2024 3:21 PM MEDICAL DRIVER [facility] MCV 89 78 - 100 fL 01/27/2024 3:21 PM MEDICAL DRIVER [facility] MCH 29.5 26.5 - 33.0 pg 01/27/2024 3:21 PM MEDICAL DRIVER [facility] MCHC 33.0 31.5 - 36.5 g/dL 01/27/2024 3:21 PM MEDICAL DRIVER [facility] RDW 12.8 10.0 - 15.0 % 01/27/2024 3:21 PM MEDICAL DRIVER [facility] Platelet Count 215 150 - 450 10e3/uL 01/27/2024 3:21 PM MEDICAL DRIVER [facility] % Neutrophils 56 % 01/27/2024 3:21 PM MEDICAL DRIVER [facility] % Lymphocytes 31 % 01/27/2024 3:21 PM MEDICAL DRIVER [facility] % Monocytes 10 % 01/27/2024 3:21 PM MEDICAL DRIVER [facility] % Eosinophils 2 % 01/27/2024 3:21 PM MEDICAL DRIVER [facility] % Basophils 0 % 01/27/2024 3:21 PM MEDICAL DRIVER [facility] % Immature Granulocytes 0 % 01/27/2024 3:21 PM MEDICAL DRIVER [facility] NRBCs per 100 WBC 0 <1 /100 024 3:21 PM MEDICAL DRIVER [facility] Absolute Neutrophils 2.9 1.6 - 8.3 10e3/uL 01/27/2024 3:21 PM MEDICAL DRIVER [facility] Absolute Lymphocytes 1.6 0.8 - 5.3 10e3/uL 01/27/2024 3:21 PM MEDICAL DRIVER [facility] Absolute Monocytes 0.5 0.0 - 1.3 10e3/uL 01/27/2024 3:21 PM MEDICAL DRIVER [facility] Absolute Eosinophils 0.1 0.0 - 0.7 10e3/uL 01/27/2024 3:21 PM MEDICAL DRIVER [facility] Absolute Basophils 0.0 0.0 - 0.2 10e3/uL 01/27/2024 3:21 PM MEDICAL DRIVER [facility] Absolute Immature Granulocytes 0.0 <=0.4 10e3/uL 01/27/2024 3:21 PM MEDICAL DRIVER [facility] Absolute NRBCs 0.0 10e3/uL 01/27/2024 3:21 PM MEDICAL DRIVER [facility] Blood BLOOD SPECIMEN / Unknown Venipuncture / Unknown 01/27/2024 3:13 PM MEDICAL DRIVER 01/27/2024 3:17 PM MEDICAL DRIVER Luis Armando Dietz MD LAB - BLOOD ORDERABLES Final Result LABORATORY [facility] Acute Care Lab [address] [facility] Lab (1st floor, no room number) [place] [address], [facility] * Troponin T, High Sensitivity (01/27/2024 3:13 PM MEDICAL DRIVER) Troponin T, High Sensitivity 7 <=14 ng/L 01/27/2024 3:43 PM MEDICAL DRIVER [facility] Comment: Either a High Sensitivity [...] Unknown Venipuncture / Unknown 01/27/2024 3:13 PM MEDICAL DRIVER 01/27/2024 3:17 PM MEDICAL DRIVER us Luis Armando Dietz MD LAB - BLOOD ORDERABLES Final Result [facility] Acute Care Lab [address] Lab (1st floor, no room number) [place] [phone] [place] [address] * INR (01/27/2024 3:13 PM MEDICAL DRIVER) INR 0.93 0.85 - 1.15 01/27/2024 3:37 PM MEDICAL DRIVER LABORATORY Blood BLOOD SPECIMEN / Unknown Venipuncture / Unknown 01/27/2024 3:13 PM MEDICAL DRIVER 01/27/2024 3:17 PM MEDICAL DRIVER us Luis Armando Dietz MD LAB - BLOOD ORDERABLES Final Result Performing Organization Address City/[facility]/ZIP Co de Phone Number [facility] Lab [address] Lab (1st floor, no room number) [place] [phone], [facility] * Partial thromboplastin time (01/27/2024 3:13 PM MEDICAL DRIVER) aPTT 32 22 - 38 Seconds 01/27/2024 3:37 PM MEDICAL DRIVER LABORATORY Blood BLOOD SPECIMEN / Unknown Venipuncture / Unknown 01/27/2024 3:13 PM MEDICAL DRIVER 01/27/2024 3:17 PM MEDICAL DRIVER us Luis Armando Dietz MD LAB - BLOOD ORDERABLES Final Result [facility] Care Lab [address] Lab (1st floor, no room number) [place] [address], [facility] * (ABNORMAL) LDL cholesterol direct (01/27/2024 3:13 PM MEDICAL DRIVER) LDL Cholesterol Direct 142(H) <100 mg/dL 01/28/2024 1:47 AM MEDICAL DRIVER [facility] Comment: Age 2-19 years: Desirable: < 110 mg/dL Borderline High: 110-129 mg/dL High: >= 130 mg/dL Age 20 years and older: Desirable: < 100 mg/dL Above Desirable: 100-129 mg/dL Borderline High: 130-159 mg/dL High: 160-189 mg/dL Very High: >= 190 mg/dL Blood BLOOD SPECIMEN / Unknown Venipuncture / Unknown 01/27/2024 3:13 PM MEDICAL DRIVER 01/27/2024 3:17 PM MEDICAL DRIVER Marielena Peters PA-C LAB - BLOOD ORDERABLES Fin al Result LABORATORY [facility] [address] [facility], [address] [place] [address] * (ABNORMAL) Hemoglobin A1c (01/27/2024 3:13 PM MEDICAL DRIVER) Estimated Average Glucose 126(H) <117 mg/dL 01/27/2024 8:39 PM MEDICAL DRIVER LABORATORY Hemoglobin A1C 6.0(H) <5.7 % 01/27/2024 8:39 PM MEDICAL DRIVER LABORATORY Comment: Normal <5.7% Prediabetes 5.7-6.4% Diabetes 6.5% or higher Note: Adopted from ADA consensus guidelines. Blood BLOOD SPECIMEN / Unknown Venipuncture / Unknown 01/27/2024 3:13 PM MEDICAL DRIVER 01/27/2024 3:17 PM MEDICAL DRIVER Marielena Peters PA-C LAB - BLOOD ORDERABLES Fin al Result LABORATORY [facility] Acute Care Lab [address] Lab (1st floor, no room number) [place] [address] * (ABNORMAL) Basic metabolic panel (01/27/2024 3:13 PM MEDICAL DRIVER) Sodium 140 135 - 145 mmol/L 01/27/2024 3:43 PM MEDICAL DRIVER LABORATORY Potassium 4.0 3.4 - 5.3 mmol/L 01/27/2024 3:43 PM MEDICAL DRIVER LABORATORY Chloride 102 98 - 107 mmol/L 01/27/2024 3:43 PM MEDICAL DRIVER LABORATORY Carbon Dioxide (CO2) 25 22 - 29 mmol/L 01/27/2024 3:43 PM [facility] LABORATORY Anion Gap 13 7 - 15 mmol/L 01/27/2024 3:43 PM MEDICAL DRIVER LABORATORY Urea Nitrogen 17.2 8.0 - 23.0 mg/dL 01/27/2024 3:43 PM MEDICAL DRIVER LABORATORY Creatinine 0.65 0.51 - 0.95 mg/dL 01/27/2024 3:43 PM MEDICAL DRIVER LABORATORY GFR Estimate >90 >60 mL/min/1.7 3m2 01/27/2024 3:43 PM MEDICAL DRIVER LABORATORY Comment:eGFR calculated usin 2020 CKD-EPI equation. Calcium 9.6 8.8 - 10.4 mg/dL 01/27/2024 3:43 PM [facility] LABORATORY Comment:Reference intervals for this test were updated on 09/26/2023 to reflect our healthy population more accurately. There may be differences in the flagging of prior results with similar values performed with this method. Those prior results can be interpreted in the context of the updated reference intervals. Glucose 118(H) 70 - 99 mg/dL 01/27/2024 3:43 PM MEDICAL DRIVER LABORATORY Blood BLOOD SPECIMEN / Unknown Venipuncture / Unknown 01/27/2024 3:13 PM MEDICAL DRIVER 01/27/2024 3:17 PM MEDICAL DRIVER us Luis Armando Dietz MD LAB - BLOOD ORDERABLES Final Result LABORATORY [facility] Acute Care Lab [address] [facility] Lab (1st floor, no room number) [place] [address], [facility] * (ABNORMAL) Glucose by meter (01/27/2024 3:03 PM MEDICAL DRIVER) GLUCOSE BY METER POCT 110(H) 70 - 99 mg/dL 01/27/2024 3:10 PM MEDICAL DRIVER [facility] POC Comment:Dr/RN Notified Blood, Capillary BLOOD SPECIMEN / Unknown 01/27/2024 3:03 PM MEDICAL DRIVER 01/27/2024 3:10 PM MEDICAL DRIVER us Luis Armando Dietz MD LAB - BEAKER POCT Final Resu lt RH LABORATORY POC [facility] Acute Care Lab [address] Lab (1st floor, no room number) [place] [address], [facility] [...] mg/dL 09/27/2023 9:15 PM CDT LABORATORY Specific [place] Urine 1.013 1.003 - 1.035 09/27/2023 9:15 [...] LAB - URINE ORDERABLES Final Result LABORATORY [facility] Acute Care Lab [address] Lab (1st floor, no room number) [place] [address], [facility] from Last 3 Months or Most Recently Relevant to Health Maintenance Insurance MEDICARE MEDICARE MEDICARE [facility] MEDICARE MEDICARE MEDICARE BCBS [employer] BLUE Advance Directives For more information, please contact: [phone] * Full Code (Latest Code Status on [...] patie nt/ legal decision maker Care Teams Riveter Hand Relationship Specialty Start Date End Date Kyra Perera [address] [place] [address] PCP - General Physician Physician Coder 03/31/22 Angel Hollins MD [address] [phone] Neurology 07/20/23 Petra Dorado PA [address] [place], [place] [address] Physician Physician Coder Physical Medicine and Rehabilitation 07/20/23 Angel Hollins MD [address] [address] Assigned Neuroscience Provider 08/03/23 Yves Ballard MD [address] [place] [address] Assigned Heart and Vascular Provider 12/04/23
[2024-04-08 02:08] LABS: C Reactive Protein* < 0.5 mg/dL (0.5-1.0)
--- OUTSIDE RECORDS SUMMARY | 2024-04-08 02:08 | XMS_ITS | Encounter Summary ---
Author Organization [facility] Address [address] [place] [address] Care Team Providers Care Systems Support Officer Name Role Phone Kyra Perera Primary Care Provider [phone] Angel Hollins MD Unavailable Petra Dorado Unavailable [phone] Angel Hollins MD Unavailable Yves Ballard MD Unavailable + [phone] Encounter Details Date Type Department Care Team [...] on file Legal Sex Female 3:34 AM DIRECTOR OF RESIDENCE LIFE Gender Identity Not on file Sexual Orientation Not on file documented as of this encounter Plan of Treatment Not on file documented as of this encounter Visit Diagnoses Not on filedocumented in this encounter Care Teams Systems Support Officer Relationship Specialty Start Date End Date Ky[place] [address] PCP - General Physician Saddle Stitcher 03/31/22 Angel Hollins MD [address] [address] Neurology 07/20/23 Petra Dorado PA [address] [place] [address] Physician Saddle Stitcher Physical Medicine and Rehabilitation 07/20/23 Angel Hollins MD [address] [address] Assigned Neuroscience Provider 08/03/23 Yves Ballard MD 6405 [facility] [address] [place] [address] Assigned Heart and Vascular Provider 12/04/23 documented as of this encounter
--- OUTSIDE RECORDS SUMMARY | 2024-04-08 02:08 | XMS_ITS | Continuity of Care Document ---
Author Organization [facility] [place] Address [address] [place] [address] [address] [place] [address] Phone Care Team Providers Care Supervisor Water Treatment Plant Name Role Phone Bernabe MAURICE, Clayton Unavailable Unavailable Advance Directives Directive Yes / No Effective Date File Name No Information Encounters Encounter Description Practice Location Reason(s) For Visit Diagnoses Date Provider Providers Copied on Encounter [facility], [address] [place], [place] [address], [place], [address], [place] tel:[phone] [facility] No Information Bernabe Arnold. [facility], [address] [place] [address] [address], [place], [place], [id number] , [place]. tel:[phone] Family History Family Member Type Diagnosis Age At Onset No Information Payers Payer name Insurance type Covered alliance party ID Authoriza tion(s) No Information Social [...]
--- OUTSIDE RECORDS SUMMARY | 2024-04-08 02:08 | XMS_ITS | Encounter Summary ---
Author Organization [facility] Address [address] [place] [address]. [place] [address] Care Team Providers Care Pick Up Worker Name Role Phone GwenPramod farahflavio Bell Primary Care Provider Angel Hollins MD Unavailable Petra Dorado Unavailable [phone] Angel Hollins MD Unavailable Yves Ballard MD Unavailable + [phone] Encounter Details Date Type Department Care Team (Late st Contact Info) Description 02/21/2024 [facility] [address] [place] [address] Angel Hollins MD [address] [place] [address] [id number] [place], [place] [id number] Social History Tobacco Use Types Packs/Day Years [...] on file Legal 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 Gender Identity Not on file Sexual Orientation Not on file documented as of this encounter Plan of Treatment Not on file documented as of this encounter Visit Diagnoses Not on filedocumented in this encounter Care Teams Pick Up Worker Relationship Specialty Start Date End Date Kyra Perera [address] [place] [address] PCP - General Physician Cnc Mill Operator 03/31/22 Angel Hollins MD [address] [address] Neurology 07/20/23 Petra Dorado PA [address] [place] [place] [address] Physician Cnc Mill Operator Physical Medicine and Rehabilitation 07/20/23 Angel Hollins MD [address] [address] Assigned Neuroscience Provider 08/03/23 Yves Ballard MD 6405 [facility] [address] [place] [address] Assigned Heart and Vascular Provider 12/04/23 documented as of this encounter
--- OUTSIDE RECORDS SUMMARY | 2024-04-08 02:08 | XMS_ITS | Clinical Summary ---
Author Organization [facility] Address [address] [address] Phone Care Team Providers Care Federal Mediation Commissioner Name Role Phone Elsewhere, Pcp Primary Care [...] on file Insurance MEDICA CHOICE Care Teams Federal Mediation Commissioner Relationship Specialty Start Date End Date Elsewhere, Pcp PCP - General 12/20/14
--- OUTSIDE RECORDS SUMMARY | 2024-04-08 02:08 | XMS_ITS | Encounter Summary ---
Author Organization [facility] Address [address] [place] [address] Care Team Providers Care Harness And Bag Inspector Name Role Phone Kyra Perera Primary Care Provider Angel Hollins MD Unavailable [phone] Petra Dorado Unavailable [phone] Angel Hollins MD Unavailable Yves Ballard MD Unavailable + [phone] Reason for Visit * Rehab Therapy Integrated Services (Routine) - Closed Specialty Diagnoses / Procedures Referred By Scott muniz Referred To Contact Diagnoses Scot DAUGHERTY PF RN sent order Procedures PT NEURO EVAL [address] [address] Phone: tel: Referral ID Status Reason Start Date Expiration Date Visits Re quested Visits Authorized [id number] Closed 07/18/2023 03/12/2024 365 365 Encounter Details Date Type Department Care Team (Latest Contact Info) Description 02/26/2024 1:30 PM DELIMBER OPERATOR Therapy Visit [address] [phone] Kyra Perera [facility] [place] [address] Dylan Mccann OT Cerebrovascular accident (CVA) due [...] on file Legal Sex Female 3:34 AM DELIMBER OPERATOR Gender Identity Not on file Sexual Orientation [...] Date 04/07/24 OT Goal 5 Goal Identifier kitchen food assembler Goal Description Patient to demonstrate improved B kitchen food assembler strength by 5# for increased ADL/IADL independence [...] Measure 13 Objective Measure 1 Objective Measure kitchen food assembler Details 01/08/24 R: 25.3 lbs, L: 46.6 [...] education;Community/Work Reintegration Neuromuscular Re-education Neuromuscular Re-ed Minutes (59203) 30 Neuro Re-ed 1 RUE ROM, FMC, [...] Therapeutic Procedure: strength, endurance, ROM, flexibillity minutes (62770) 15 Ther Proc 1 arm ergometer Ther [...] shoulder - cont. AROM, ball bounce/toss/catch. cont warp picker of items, manipulation, pegs with peg board. Total Session Time Timed Code Treatment Minutes 45 Total Treatment Time (sum of timed and untimed services) 45 DISCHARGE Reason for Discharge: Patient has failed to schedule further appointments. Equipment Issued: BUE HEP Discharge Plan: Patient to continue home program. Referring Provider: Kyra Perera MBER OPERATOR documented in this encounter Plan of Treatment Not on file documented as of this encounter Visit Diagnoses Diagnosis Cerebrovascular accident (CVA) due to thrombosis of left middle cerebral artery (H)- Primary Activity of daily living alteration Debility, unspecified documented in this encounter Care Teams Harness And Bag Inspector Relationship Specialty Start Date End Date Kyra Perera [address] [place] [address] PCP - General Physician County Records Management Officer 03/31/22 Angel Hollins MD 909 [facility] [id number] [place] [address] Neurology 07/20/23 Petra Dorado PA [address] [place], [place] [address] [place] [address] Physician County Records Management Officer Physical Medicine and Rehabilitation 07/20/23 Angel Hollins MD 909 [id number] [place] [address] Assigned Neuroscience Provider 08/03/23 Yves Ballard MD [address] [facility] [address] [place] [address] Assigned Heart and Vascular Provider 12/04/23 documented as of this encounter
--- OUTSIDE RECORDS SUMMARY | 2024-04-08 02:08 | XMS_ITS | Encounter Summary ---
Author Organization [facility] Address [address] [place] [address] Care Team Providers Care Green Marketer Name Role Phone Kyra Perera Primary Care Provider Angel Hollins MD Unavailable Petra Dorado Unavailable [phone] nAgel Hollins MD Unavailable Yves Ballard MD Unavailable + [phone] Reason for Visit * Reason Onset Date Comments Patient Request 10/18/2023 Encounter Details Date Type Department Care Team (Late st Contact Info) Description 10/18/2023 [facility] Medical Adv[facility] [address] [place] [address] Angel Hollins MD [address] [place] [address] [id number] [place] [address] Patient Request Social History Tobacco [...] on file 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 YES 10/18/2023, 12:45 PM documented in this encounter Plan of Treatment Not on file documented as of this encounter Visit Diagnoses Not on filedocumented in this encounter Care Teams Green Marketer Relationship Specialty Start Date End Date Kyra Perera [address] [place] [address] PCP - General Physician Shoe Repairer Helper 03/31/22 Angel Hollins MD [address] [place] [address] Neurology 07/20/23 Petra Dorado PA [address] [address] Physician Shoe Repairer Helper Physical Medicine and Rehabilitation 07/20/23 Angel Hollins MD [address] [place] [address] Assigned Neuroscience Provider 08/03/23 Yves Ballard MD [address] [place] [address] Assigned Heart and Vascular Provider 12/04/23 documented as of this encounter
--- OUTSIDE RECORDS SUMMARY | 2024-04-08 02:08 | XMS_ITS | Clinical Summary ---
Author Organization [employer] Address [place], [place] [address] Care Team Providers Care Visitor Service Assistant Name Role Phone Kyra Perera Primary Care Provider Genaro Leonard MD Unavailable [phone] Janay Nunez MD Unavailable [phone] Unavailable Keo Escobar MD [...] Department Care Team Description 03/25/2024 11:10 AM KILN FURNITURE SAW TENDER Office Visit [facility] [address] [place] [address] Kyra Perera PA Follow Up 03/25/2024 Travel 03/07/2024 10:30 AM KILN FURNITURE SAW TENDER Office Visit [facility] [address] [facility] [address] [place] [address] Janay Nunez MD Follow Up (3 Month F/U Please review Echo done at done in Nov. /Medication questions. ) 03/07/2024 Travel 02/28/2024 Telephone [facility] [address] [facility] [address] [place] [address] Junito Greer MD Referral (Ref. Dr. Janay Nunez on 12-29-23 for prevention consult w/ Dr. Greer or Dr. Howell w/ 12hr fasting labs 1-2wks prior.) 02/22/2024 Telephone [facility] [address] [facility] [address] Keo Escobar MD Results 02/22/2024 Telephone [facility] [address] [place] [address] Kyra Perera PA Medication Management (telmisartan (MICARDIS) 20 mg tablet //) 02/22/2024 Orders Only [facility] [address] [place] [address] Keo Escobar MD 1 scan: (1-Ord) [place], CERVICAL SPINE WO CONTRAST, 02/15/2024 02/21/2024 1:00 PM KILN FURNITURE SAW TENDER Office Visit [facility] [address] [place] [address] Kyra Perera PA Hospital F/U (Post hospital visit) 02/21/2024 Travel 02/12/2024 Telephone [facility] [address] [place] [address] Kyra Perera PA Follow Up (APPOINTMENT AVAILABILITY) 02/07/2024 11:20 AM KILN FURNITURE SAW TENDER Office Visit [facility] [address] [facility] [address] Keo Escobar MD Musculoskeletal Problem (Consult right arm pain/Patient does have neck MRI scheduled 02/16/24 through [place]) 02/07/2024 Travel 01/16/2024 9:30 AM KILN FURNITURE SAW TENDER Office Visit [facility] [address] [facility] [address] Kyra Perera PA Arm Pain/problem (R arm [...] 6 Hyperlipidemia Brother 7 Other Father d54 [place], liver e tom Cancer-breast Maternal Aunt Other [...] on file Legal Sex Female 5:26 AM KILN FURNITURE SAW TENDER Gender Identity Not on file Sexual Orientation Not on file Obstetrics History Last Filed Vital Signs Vital Sign Reading Time Taken Comments Blood Pressure 164/96 03/25/2024 11:22 AM KILN FURNITURE SAW TENDER Pulse 74 03/25/2024 11:22 AM KILN FURNITURE SAW TENDER Temperature 36.9 C (98.4 F) 02/07/2024 11:34 AM KILN FURNITURE SAW TENDER Respiratory Rate 18 06/23/2023 11:23 AM CDT Oxygen Saturation 96% 03/25/2024 11:22 AM KILN FURNITURE SAW TENDER Inhaled Oxygen Concentration - - Weight 62.6 kg (138 lb) 03/25/2024 11:22 AM KILN FURNITURE SAW TENDER Height 157.5 cm (5' 2) 03/07/2024 10:35 AM KILN FURNITURE SAW TENDER Body Mass Index 25.24 03/07/2024 10:35 AM KILN FURNITURE SAW TENDER Plan of Treatment Upcoming Encounters Date Type Department Care Team (Late st Contact Info) Description 04/10/2024 10:40 AM KILN FURNITURE SAW TENDER Office Visit [facility] [address] [place] [address] Keo Escobar MD [address] [place] [address] 04/11/2024 8:30 AM KILN FURNITURE SAW TENDER Orders Only [facility] [address] [place] [address] Lab, [place] 04/16/2024 10:50 AM KILN FURNITURE SAW TENDER Office Visit [facility] [address] [place] [address] Kyra Perera PA 1400 [place] [address] 06/14/2024 11:30 AM CDT Office Visit [facility] [address] [place] [address] 200 [place] [address] Janay Nunez MD [address] [facility] [address] [place] [address] Health Maintenance Due Date Last Done Comments [...] SPINE CERVICAL WO Routine 02/15/2024 12:00 AM KILN FURNITURE SAW TENDER DDD (degenerative disc disease), cervical Cervical radiculopathy [...] cancer ANTI HCV Routine 02/09/2016 10:00 AM KILN FURNITURE SAW TENDER Need for hepatitis C screening test from Last 3 Months or Most Recently Relevant to Health Maintenance Results * MR SPINE CERVICAL WO (02/15/2024 12:00 AM KILN FURNITURE SAW TENDER) Anatomical Region Laterality Modality Spine, CERVICAL SPINE Magnetic R esonance us Keo Escobar MD MR Final Resu lt * (ABNORMAL) LIPID PANEL W REFLEX MEASURED LDL (11/22/2023 9:42 AM CDT) CHOLESTEROL,TOTAL 229(H) 100 - 199 mg/dL 11/22/2023 6:42 PM CDT [facility] Comment: Cholesterol, Total Reference Ranges Desirable <200 mg/dL Borderline 200-239 mg/dL High >=240 mg/dL TRIGLYCERIDES 187(H) <150 mg/dL 11/22/2023 6:42 PM CDT [facility] HDL CHOLESTEROL 50 >40 mg/dL 6:42 PM CDT [facility] NON-HDL CHOLESTEROL 179(H) <145 mg/dl 11/22/2023 6:42 PM CDT [facility] CHOL/HDL RATIO 4.58(H) <4.50 11/22/2023 6:42 PM CDT [facility] LDL CHOLESTEROL 142(H) <=130 mg/dL 11/22/2023 6:42 PM CDT [facility] VLDL CHOLESTEROL 37(H) <=30 mg/dL 11/22/2023 6:42 PM CDT [facility] PROVIDER ORDERED STATUS RANDOM 11/22/2023 6:42 PM CDT [facility] Blood BLOOD SPECIMEN / Unknown Venipuncture / Unknown 11/22/2023 9:42 AM CDT 11/22/2023 9:43 AM CDT Kyra ANTHONY CHEMISTRY Final R esult [facility] [address] [place] [address], [place] * XR MAMMO ALEENA BILAT SCREEN [...] care provider. XR MAMMO ALEENA BILAT SCREEN [[id number]] CLINICAL HISTORY: This is an asymptomatic 73 y.o. patient. INDICATION FOR EXAM: Mammogram Screening. TECHNIQUE: CC & MLO views were obtained. This study was evaluated with the assistance of Computer-Aided Detection. Breast Tomosynthesis was used in interpretation. COMPARISON FILM: Yes 12/08/21 [facility] FINDINGS: The breasts are heterogeneously dense, which may obscure small masses. There are no dominant masses, suspicious micro calcifications or areas of architectural distortion. Kyra ANTHONY MAMMO Final R esult * COLONOSCOPY SCREENING (10/10/2022 12:00 AM CDT) Andrea Devi MD GI PROCEDURE ORD Final Re sult * ANTI HCV [14717.2] (02/09/2016 10:00 AM KILN FURNITURE SAW TENDER) HEPATITIS C ANTIBODY Non-Reacti ve Non-Reacti ve 02/09/2016 5:42 PM KILN FURNITURE SAW TENDER [facility] Blood BLOOD SPECIMEN / Unknown Venipuncture / Unknown 02/09/2016 10:00 AM KILN FURNITURE SAW TENDER 02/09/2016 10:01 AM KILN FURNITURE SAW TENDER Narrative [facility] - 02/09/2016 5:42 PM KILN FURNITURE SAW TENDER Antibodies to HCV not detected; does not exclude the possibility of exposure to HCV. Kyra ANTHONY SEND OUTS Final R esult [facility] [address] [place] [address], from Last 3 Months or Most Recently Relevant to Health Maintenance Insurance [place] HB ONLY MEDICARE PART B HB ONLY [place] BLUE MR PB ONLY MEDICARE PART A HB ONLY [facility] [employer] Member Subscriber Plan / Payer (Ef fective 2009-Present) Name:Miya Restrepo Relation to Subscriber:Self Name:Miya Restrepo Payer ID:Not on file Group ID:Not on file Type:Not on file [id number] Address: [id number] [place] [address] Advance Directives * Full Code (Latest Code [...] 4:20 AM 03/22/2010 1:40 PM Care Teams Visitor Service Assistant Relationship Specialty Start Date End Date Kyra Perera PA [address] [place] [address] PCP - General 06/16/08 Genaro Leonard MD [address] [facility] [address] [place] [address] Cardiology - Electrophysiology 05/30/22 Janay Nunez MD [address] [place] [address] Cardiology - Interventional 09/21/22 Carolyn Pisano PA [address] [place], [place] [address] [address] Physician Warp Scouring Vat Tender 09/21/22 Keo Escobar MD [address] [place] [address] Sports Medicine - Family Medicine 09/21/22
--- OUTSIDE RECORDS SUMMARY | 2024-04-08 02:08 | XMS_ITS | Encounter Summary ---
Author Organization [facility] Address [facility] [place] [address] Care Team Providers Care Art Preparator Name Role Phone Trever Kyra Bell Primary Care Provider [phone] Angel Hollins MD Unavailable Petra Dorado Unavailable [phone] Angel Hollins MD Unavailable Yves Ballard MD Unavailable [phone] Reason for Visit * Reason Comments RECHECK VIDEO [phone] llow up to 10/31/23Labs done 02/20/24 * Consultation (Routine: Next available opening) - Pending Review Specialty Diagnoses / Procedures Referred By Contac t Referred To Contact Diagnoses Hypertension, unspecified type Atherosclerosis of abdominal aorta Cerebrovascular accident (CVA), unspecified mechanism (H) Hyperlipidemia LDL goal <70 Statin intolerance Lymphedema Yves Ballard MD [address] [facility] [address] [place] [address] Phone: tel: fax: Referral ID Status Reason Start Date Expiration Date V isits Requested Visits Authorized [id number] Pending Review 12/05/2023 12/04/2024 1 1 Encounter Details Date Type Department Care Team (Latest Contact Info) Description 02/29/2024 4:20 PM SUMMER LAW CLERK Virtual Visit [facility] [place] [address] [place] [phone] Yves Ballard MD [address] [place] [address] Hypertension, unspecified type; Atherosclerosis of abdominal aorta; [...] on file Legal Sex Female 3:34 AM SUMMER LAW CLERK Gender Identity Not on file Sexual Orientation Not on file documented as of this encounter Patient Instructions * Patient Instructions* Yves Ballard MD - 02/29/2024 4:20 PM SUMMER LAW CLERK As We discussed today, Recent lipids improved [...] June 2024 after fasting labs order placed ER LAW CLERK ER LAW CLERK ER LAW CLERK documented in this encounter Progress Notes * Yves Ballard MD - 02/29/2024 4:20 PM CST Deyon is a 73 year old who is being evaluated via a billable video visit. How would you like to obtain your AVS? MyChart If the video visit is dropped, the invitation should be resent by: Text to cell phone: [phone] Will anyone else be joining your video [...] to get the compounded telmisartan medication through [facility] For full details please see my previous office visit notes Review of systems: Reviewed all 12 point review of systems as per HPI otherwise unremarkable Physical exam:( no physical exam done this is virtual visit) Reviewed recent laboratory tests, imaging studies in the [facility] and updated chart Assessment and plan: 1. [...] (patient location): Home Distant Location (provider location): [facility] Mode of Communication: Video Conference via Optiniimity This visit is being conducted as a virtual visit due to the emphasis on mitigation of the COVID-19 virus pandemic. The clinician has decided that the risk of an in-office visit outweighs the benefit for this patient. Yves Ballard MD,FAHA,FSVM,FNLA, FACP Vascular Medicine Clinical Hypertension Specialist Clinical Lipidologist ER LAW CLERK documented in this encounter Plan of Treatment [...] lymphedema documented in this encounter Care Teams Art Preparator Relationship Specialty Start Date End Date Kyra Perera [address] [place] [address] PCP - General Physician Hospital Receiving Clerk 03/31/22 Angel Hollins MD 909 [facility] [id number], [place] [address] Neurology 07/20/23 Petra Dorado PA [address] [place] [address] Physician Hospital Receiving Clerk Physical Medicine and Rehabilitation 07/20/23 Angel Hollins MD 909 [id number] [place] [address] Assigned Neuroscience Provider 08/03/23 Yves Ballard MD [address] [place] [address] Assigned Heart and Vascular Provider 12/04/23 documented as of this encounter
--- OUTSIDE RECORDS SUMMARY | 2024-04-08 02:08 | XMS_ITS | Encounter Summary ---
Author Organization [place] Address [address] [place] [address] Care Team Providers Care Plant Equipment Engineer Name Role Phone Kyra Perera Primary Care Provider [phone] Angel Hollins MD Unavailable Petra Dorado Unavailable [phone] Angel Hollins MD Unavailable Yves Ballard MD Unavailable + [phone] Reason for Visit * Reason Onset Date Comments Referral 07/19/2023 Encounter Details Date Type Department Care Team (Late st Contact Info) Description 07/19/2023 [facility] Neurology [facility] - [address], [address] [place] [address] None Referral Social History Tobacco Use Types Packs/Day Years Used Date Smoking Tobacco: Never Assessed Adolescent Education Answer Date Record ed Getting School Help Needed Not on file 12/25 Comments Unknown Sex and Gender Information Value Date Recorded Sex Assigned at Not on file Legal Sex Female 3:34 AM NURSES DIRECTOR Gender Identity Not on file Sexual Orientation Not on file documented as of this encounter Miscellaneous Notes * Telephone Encounter - Shantel Garcia - 07/19/2023 11:08 AM CDT [facility] Phone Message May a detailed message be left on voicemail: yes Reason for Call: Other: [facility] is calling from [facility] to schedule stroke follow up. Janay unable to schedule due to no specific instructions to schedule. Please contact patients daughter fatemeh to schedule. Action Taken: Message routed to: Other: [facility] Travel Screening: Not Applicable documented in this encounter Plan of Treatment Not on file documented as of this encounter Visit Diagnoses Not on filedocumented in this encounter Care Teams Plant Equipment Engineer Relationship Specialty Start Date End Date Kyra Perera [address] [place] [address] PCP - General Physician Machine Buffer 03/31/22 Angel Hollins MD [address] [id number] Neurology 07/20/23 Petra Dorado PA [address] [place], [place] [address] Physician Machine Buffer Physical Medicine and Rehabilitation 07/20/23 Angel Hollins MD [address] [place] [address] Assigned Neuroscience Provider 08/03/23 Yves Ballard MD [address] [place] [address] Assigned Heart and Vascular Provider 12/04/23 documented as of this encounter
--- OUTSIDE RECORDS SUMMARY | 2024-04-08 02:08 | XMS_ITS | Continuity of Care Document ---
Author Organization [facility] Address [address] [address] [place] [address] Phone Care Team Providers Care Instrument Technician Helper Name Role Phone Link Jensen MAURICE Unavailable [...] Encounter [facility], [address] [address], [place], [id number], [place] tel:[phone] [facility] No Information 4 Ben Styles. [address], [id number], [place]. tel:[phone] Referring Provider: Kyra ANTHONY, [address] [place] [address], [address]. tel:[phone] Init H[facility] Mod Severity [facility], [address] [address], [place], [place], [id number], [place] tel:[phone] [facility] No Information 4 Agustina Butcher. [address] [place] [address], [id number], [place]. tel:[phone] Referring Provider: Kyra ANTHONY, [address] [place] [address], [address]. tel:[phone] [facility], [address] [address], [place], [place], [id number], [place] tel:[phone] [facility] No Information 1 No Information Referring Provider: Andrea Thomas, [address] [place] [address], [address]. tel:[phone] Init Hosp-da E&m Mod Severity [facility], [address] [address], [place], [id number], [place] tel:[phone] [facility] No Information 1 Bela Gatica. [address], [id number], [place]. tel:[phone] Referring Provider: Nazanin Allan MD [place], [address] [place] [address], [address]. tel:[phone] Offic Cons New/estab Mod-hi 60 [facility], [address] [address], [place], [place], [id number], [place] tel:[phone] [facility] Abdominal Pain, UnspecifiedCo nstipation Unspecified [address] Mar[address] De La Cruz. 3001 [facility], [address], [place], [place], [id number], [place]. tel:[phone] Referring Provider: Iván Sweet MD L, [address], [place], [address]. tel:[phone] [facility], [address] [address], [place], [place], [id number], [place] tel:[phone] [facility] No Information 5 No Information Offic Cons New/estab Mod- [facility], [address] [address], [place], [place], [id number], [place] tel:[phone] [facility] Irritable Bowel SyndromeRUQ pain 5 No Information [...] green party ID Authoriza tion(s) [employer] [place] [employer] BL [id number] Social History Type Description Quantity Date Captured [...]
[2024-04-08 02:10] LABS: NT Pro B Type NatriureticPept* 92 pg/mL
[2024-04-08 02:11] LABS: Troponin I* < 0.01 ng/mL (0.01-0.04)
[2024-04-08 02:31] VITALS: BP 181/97; PULSE 71; RESP 20; O2SAT 93
[2024-04-08 03:00] VITALS: PULSE 68; O2SAT 95
[2024-04-08 03:02] VITALS: BP 187/98; PULSE 70; RESP 16
== END 2024-04-08 03:49 | disposition home or self-care (01) ==
PROVIDERS: Emergency Provider Family Medicine; PCP Physician Assistant Medical
DX: R07.9 Chest pain, unspecified (principal); T46.5X5A Adverse effect of other antihypertensive drugs, initial encounter
CPT/HCPCS: 36415; 80053; 81003; 83880; 84484; 85025; 86140; 87631; 93005; 94761; 99284; A9270

== ENCOUNTER 2024-06-27 10:17 | Emergency (ER) | payer MEDICARE, BC, SELFPAY ==
[2024-06-27] VITALS (10 sets, daily range): BP systolic 192–219; BP diastolic 84–99; PULSE 63–78; RESP 12–18; TEMP 36.9; O2SAT 95–97; BMI 24.7
--- OUTSIDE RECORDS SUMMARY | 2024-06-27 10:21 | XMS_ITS | Encounter Summary ---
Author Organization [place] Address [facility] [place] [address] Care Team Providers Care Wire Stitcher Operator Name Role Phone Trever Kyra Bell Primary Care Provider [phone] Angel Hollins MD Unavailable Petra Dorado Unavailable [phone] Angel Hollins MD Unavailable [phone] Yves Ballard MD Unavailable + [phone] Encounter Details Date Type Department Care Team (Latest Contact Info) Description 06/13/2024 Travel Social History Tobacco Use Types Packs/Day [...] on file Legal Sex Female 3:34 AM CYANIDE FURNACE OPERATOR Gender Identity Not on file Sexual Orientation Not on file documented as of this encounter Plan of Treatment Upcoming Encounters Date Type Department Care Team (Late st Contact Info) Description 08/13/2024 4:00 PM CDT Virtual Visit [facility] [place] [address] [place] [phone] Yvse Ballard MD [address] [place] [address] documented as of this encounter Visit Diagnoses Not on filedocumented in this encounter Care Teams Wire Stitcher Operator Relationship Specialty Start Date End Date MylesloriePramodflavio Bell [address] [place] [address] PCP - General Physician Landman 03/31/22 Angel Hollins MD [address] [id number] Neurology 07/20/23 Petra Dorado PA [address] [place], [place] [address] Physician Landman Physical Medicine and Rehabilitation 07/20/23 Angel Hollins MD [address] [place] [address] Assigned Neuroscience Provider 08/03/23 Yves Ballard MD [address] [place] [address] Assigned Heart and Vascular Provider 12/04/23 documented as of this encounter
--- OUTSIDE RECORDS SUMMARY | 2024-06-27 10:21 | XMS_ITS | Encounter Summary ---
Author Organization [place] Address [address] [place] [address]. [place] [address] Care Team Providers Care Fork Operator Name Role Phone Kyra Perera Primary Care Provider [phone] Angel Hollins MD Unavailable Petra Dorado Unavailable [phone] Angel Hollins MD Unavailable Yves Ballard MD Unavailable + [phone] Reason for Visit * Reason Onset Date Comments Appointment 05/29/2024 Encounter Details Date Type Department Care Team (Late st Contact Info) Description 05/29/2024 Telephone [facility] [place] 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 Alycia Hays MA * Telephone Encounter - Melissa Hill - 06/03/2024 2:12 PM CDT Please refax lab orders to Cheryl [facility] at [phone] * Telephone Encounter - Marleny Pop - 05/29/2024 11:25 AM CDT [facility] fax #[phone] Please fax lab orders per Dr Ballard * Telephone Encounter - Violette Narayanan - 05/29/2024 11:11 AM CDT Patient will call back with the fax # for [facility] and orders will need to be faxed tothem. Patient knows she needs the labs done 1 week prior to her appointment with Dr. Ballard. Patient is scheduled for her virtual visit with Dr. Ballard on 07/03/24. documented in this encounter Plan of Treatment Upcoming Encounters Date Type Department Care Team (Late st Contact Info) Description 08/13/2024 4:00 PM CDT Virtual Visit [facility] [place] [address] [place] [phone] Yves Ballard MD [address] [place] [address] documented as of this encounter Visit Diagnoses Not on filedocumented in this encounter Care Teams Fork Operator Relationship Specialty Start Date End Date Kyra Perera [address] [place] [address] PCP - General Physician Process Safety Specialist 03/31/22 Angel Hollins MD [address] [address] Neurology 07/20/23 Petra Dorado PA [address] [place], [place] [address] Physician Process Safety Specialist Physical Medicine and Rehabilitation 07/20/23 Angel Hollins MD [address] [place] [id number] Assigned Neuroscience Provider 08/03/23 Yves Ballard MD [address] [place] [address] Assigned Heart and Vascular Provider 12/04/23 documented as of this encounter
--- OUTSIDE RECORDS SUMMARY | 2024-06-27 10:21 | XMS_ITS | Encounter Summary ---
Author Organization [place] Address [address] [place] [address]. [place] [address] Care Team Providers Care Fire Extinguisher Technician Name Role Phone Kyra Perera Primary Care Provider [phone] Angel Hollins MD Unavailable Petra Dorado Unavailable [phone] Angel Hollins MD Unavailable Isi Ballard MD Unavailable + [phone] Reason for Visit * Reason Onset Date Comments Medication Question 06/10/2024 Encounter Details Date Type Department Care Team (Late st Contact Info) Description 06/10/[address] [facility] [place] [address] [place] [phone] Isi Ballard MD [address] [place] [id number] Medication Question Social History Tobacco Use Types Packs/Day Years [...] on file Legal Sex Female 3:34 AM TURN DOWN MAN Gender Identity Not on file Sexual Orientation Not on file documented as of this encounter Miscellaneous Notes * Telephone Encounter - Karolina Ramirez - 06/11/2024 2:45 PM CDT Patient's 07/03/[address] Ballard is rescheduled to 06/13/24. * Telephone Encounter - Melissa Hill - 06/11/2024 12:17 PM CDT Left voicemail for patient to call back to schedule appointment(s), provided telephone number for patient to call back to schedule. * Telephone Encounter - Toshia Anaya RN - 06/11/2024 10:[address] Ballard is not currently prescribing this medication for patient. She will need to contact the physician that is currently managing it for a refill or see him for follow up prior to running outof the pills as this must get discussed at a office visit with Dr Ballard. Dr Ballard has several openings prior to 07/03/24- if pt needs this addressed now please move up appt to this week. Toshia RIVERA RN [facility] Office: [phone] * Telephone Encounter - Melissa Hill - 06/10/2024 4:13 PM CDT Patient stated that she only has 6 pills left. She had labs done and has a video visit with . * Telephone Encounter - Toshia Anaya RN - 06/10/2024 3:48 PM CDT MICHELL 02/29/[address] Ballard- at this visit Pitavastatin was discontinued. Currently taking only lipid-lowering medication is 5 mg of Zetia every other day She could not handle clonidine patch as well for blood pressure control. Most recent statin Zypitamag could not handle and stopped it Patient will need to see Dr Ballard for follow up to discuss medications if she would like Dr Ballard to manage this medication for her if she is back on it from another provider- otherwise she will need to reach out the ordering provider to have it refilled. Patient is due for fasting labs and follow up now as well- See active requests. Toshia RIVERA RN [facility] Office: [phone] * Telephone Encounter - Alycia Hays MA - 06/10/2024 1:52 PM CDT [facility] Who is the name of the provider?: ISI BALLARD What is the location you see this provider at/preferred location?: [place] Person calling / Facility: Miya Restrepo Phone number: [phone] (home) Nurse call back needed: no Reason for call: Patient started taking Zypitamag Pitavastatin Magnesium (ZYPITAMAG) [address] Kyra Perera[address]. Ballard had originally prescribed this for the patient. She is wondering if he will send arefill to [facility]. Pharmacy location: [place], [place] - [address] Outside Imaging: n/a Can we leave a detailed message on this number? YES 06/10/2024, 1:53 PM Alycia Hays MA documented in this encounter Plan of Treatment Upcoming Encounters Date Type Department Care Team (Late st Contact Info) Description 08/13/2024 4:00 PM CDT Virtual Visit [facility] [place] [address] [place] [phone] Isi Ballard MD [address] [place] [address] documented as of this encounter Visit Diagnoses Not on filedocumented in this encounter Care Teams Fire Extinguisher Technician Relationship Specialty Start Date End Date GwenKyra farah [facility] [place] [address] PCP - General Physician Warp Hauler 03/31/22 Anegl Hollins MD [address] [address] Neurology 07/20/23 [place] [address] [place] [address] [address] [place] [address] Physician Warp Hauler Physical Medicine and Rehabilitation 07/20/23 Angel Hollins MD [address] [address] Assigned Neuroscience Provider 08/03/23 Isi Ballard MD [address] [place] [address] Assigned Heart and Vascular Provider 12/04/23 documented as of this encounter
--- OUTSIDE RECORDS SUMMARY | 2024-06-27 10:21 | XMS_ITS | Clinical Summary ---
Author Organization [facility] Address [address] [place] [address] Care Team Providers Care Meat Cutting Teacher Name Role Phone Gwensofi Kyra Bell Primary Care Provider Angel Hollins MD Unavailable [phone] Petra Dorado Unavailable [phone] Angel Hollins MD Unavailable [phone] Yves Ballard MD Unavailable [phone] Allergies Active Allergy Reactions Criticality Noted Date Comments Abdias Inhibitors 06/13/2024 Amlodipine Palpitations Low 01/27/2024 Atorvastatin 10/28/2010 Other [...] call 911. Active Vitamin D3 (VITAMIN D, CHOLECALCIFER OL,) 25 mcg (1000 units) tablet Take 1 tablet by mouth daily. Active acetaminophen (TYLENOL) 325 MG tabletIndicat ions:Right upper quadrant abdominal pain Take 2 tablets (650 mg) by mouth every 4 hours as needed for mild pain or other (and adjunct with moderate or severe pain or per patient request) Active aspirin 81 MG EC tabletIndicat ions:Right upper quadrant abdominal pain Take 1 tablet (81 mg) by mouth daily 024 Active famotidine (PEPCID) 20 MG tablet Take 20 mg by mouth daily as needed. Active furosemide (LASIX) 20 MG tablet Take 20 mg by mouth twice a week. Active metoprolol tartrate (LOPRESSOR) 25 MG tablet Take 12.5 mg by mouth 2 times daily. Active Pitavastatin Magnesium (ZYPITAMAG) 2 MG TABSIndicatio ns:Hyperlipid emia LDL goal <70 Take 2 mg by mouth at bedtime. 30 tablet 11 Active alirocumab (PRALUENT) 75 MG/ML injectable penIndication s:Hyperlipide constance LDL goal <70,Statin intolerance,E levated lipoprotein(a ) Inject 1 mL (75 mg) subcutaneously every 14 days. 6 mL 3 025 Active ezetimibe (ZETIA) 10 MG tablet Take 5 mg by mouth every other day. 024 2024 Discontinued telmisartan (MICARDIS) 20 MG tablet Take 10 mg by mouth 2 times daily. 2024 Discontinued pravastatin (PRAVACHOL) 10 MG tablet Take 10 mg by mouth daily. 024 2024 Discontinued(E rroneous Entry (No AVS)) Pitavastatin Magnesium 2 MG TABS Take 1 mg by mouth every other day. 2024 Discontinued Active Problems Problem Noted Date Diagnosed Date Anxiety 01/27/2024 Concussion without loss of consciousness Hypertension 01/27/2024 Post concussion syndrome 01/27/2024 Superficial [...] Encounters Date Type Department Care Team Description 06/17/[address] [facility] [place] [address] [place] [phone] Yves Ballard MD Appointment 06/13/2024 11:30 AM CDT Office Visit [facility] [place] 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 [place] [address] [place] [address] Yves Ballard MD Medication Question 05/29/[address] [facility] [place] 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 DRIVER Gender Identity Not on file Sexual Orientation Not on file Last Filed Vital Signs Vital Sign Reading Time Taken Comments Blood Pressure 172/93 06/13/2024 11:33 AM CDT Pulse 83 06/13/2024 11:33 AM CDT Temperature 36.8 C (98.3 F) 01/28/2024 10:37 AM MIXER DRIVER Respiratory Rate 20 01/28/2024 10:37 AM MIXER DRIVER Oxygen Saturation 97% 06/13/2024 11:33 AM CDT Inhaled Oxygen Concentration - - Weight 62.6 kg (138 lb) 06/13/2024 11:33 AM CDT Height 157.5 cm (5' 2) 01/27/2024 10:05 PM MIXER DRIVER Body Mass Index 25.24 01/27/2024 10:05 PM MIXER DRIVER Plan of Treatment Upcoming Encounters Date Type Department Care Team (Late st Contact Info) Description 08/13/2024 4:00 PM CDT Virtual Visit [facility] [place] [address] [place] [phone] Yves Ballard MD [address] [place] [id number] Health Maintenance Due Date Last Done Comments ADVANCE CARE PLANNING 1950 ANNUAL REVIEW OF HM ORDERS 1950 CT COLONOGRAPHY 1950 DEXA 1950 FIT 1950 FLEX SIG 1950 MICROALBUMIN 1950 sDNA (Cologuard) 1950 Pneumococcal Vaccine: 50+ Years (1 of 1 - PCV) 2000 ZOSTER IMMUNIZATION (1 of 2) 2000 RSV VACCINE (1 - Risk 60-74 years 1-dose series) 2010 COVID-19 Vaccine (3 - season) 2023 03/16/2021, 05/23/2020 INFLUENZA VACCINE (#1) 2023 PHQ-2 (once per calendar year) 2024 10/17/2023, 07/25/2023 MEDICARE ANNUAL WELLNESS VISIT 11/21/2024 11/22/2023, 01/21/2022, 01/19/2021, Additional history exists BMP 02/19/2025 02/20/2024, 01/11, 09/27/2023, Additional history exists LIPID 02/19/2025 02/20/2024, 01/27/2024 FALL RISK ASSESSMENT 06/13/2025 06/13/2024 MAMMO SCREENING 10/08/2025 10/09/2023, 09/11, 12/08/2021, Additional history exists DIABETES SCREENING 02/19/2027 02/20/2024, 1 03/28/2023, 01/27/2024, Additional history exists DTAP/TDAP/TD IMMUNIZATION (3 - Td or Tdap) 11/09/2027 11/08/2017, 05/30/2007 COLONOSCOPY 10/10/2032 10/10/2022 COLORECTAL CANCER SCREENING 10/10/2032 HEPATITIS C SCREENING Completed 02/09/2016 URINALYSIS Completed 09/27/2023, 08/27/2023 HPV IMMUNIZATION Aged Out No longer e ligible based on patient's age to complete this topic MENINGITIS IMMUNIZATION Aged Out No l onger eligible based on patient's age to complete this topic Procedures Procedure Name Priority Date/Time Associated Diagnosis Comments LIPID REFLEX TO DIRECT LDL PANEL Routine 02/20/2024 8:29 AM MIXER DRIVER Hyperlipidemia LDL goal <70 COMPREHENSIVE METABOLIC PANEL Routine 02/20/2024 8:29 AM MIXER DRIVER Hyperlipidemia LDL goal <70 ROUTINE UA WITH MICROSCOPIC REFLEX TO CULTURE STAT 09/27/2023 8:59 PM CDT from Last 3 Months or Most Recently Relevant to Health Maintenance Results * (ABNORMAL) Lipid panel reflex to direct LDL Fasting (02/20/2024 8:29 AM MIXER DRIVER) Cholesterol 237(H) <200 mg/dL 02/20/2024 4:11 PM MIXER DRIVER [facility] Triglycerides 208(H) <150 mg/dL 02/20/2024 4:11 PM MIXER DRIVER [facility] Direct Measure HDL 47(L) >=50 mg/dL 02/20/2024 4:11 PM MIXER DRIVER [facility] LDL Cholesterol Calculated 148(H) <100 mg/dL 02/20/2024 4:11 PM MIXER DRIVER [facility] Non HDL Cholesterol 190(H) <130 mg/dL 02/20/2024 4:11 PM MIXER DRIVER [facility] Patient Fasting > 8hrs? Yes 02/20/2024 4:11 PM MIXER DRIVER [facility] Blood BLOOD SPECIMEN / Unknown Venipuncture / Unknown 02/20/2024 8:29 AM MIXER DRIVER 02/20/2024 8:29 AM MIXER DRIVER Narrative [facility] - 02/20/2024 4:11 PM MIXER DRIVER Cholesterol Desirable: < 200 mg/dL Borderline [...] 219 mg/dL Very High: >= 220 mg/dL Yves Ballard MD LAB - BLOOD ORDERABL ES Final Result [facility] [place] [facility] [address] [facility], [address] [place] [address], [facility] * (ABNORMAL) Comprehensive metabolic panel (02/20/2024 8:29 AM MIXER DRIVER) Sodium 142 135 - 145 mmol/L 02/20/2024 4:11 PM MIXER DRIVER [facility] Potassium 4.5 3.4 - 5.3 mmol/L 02/20/2024 4:11 PM MIXER DRIVER [facility] Carbon Dioxide (CO2) 26 22 - 29 mmol/L 02/20/2024 4:11 PM MIXER DRIVER [facility] Anion Gap 11 7 - 15 mmol/L 02/20/2024 4:11 PM MIXER DRIVER [facility] Urea Nitrogen 16.2 8.0 - 23.0 mg/dL 02/20/2024 4:11 PM MIXER DRIVER [facility] Creatinine 0.69 0.51 - 0.95 mg/dL 02/20/2024 4:11 PM MIXER DRIVER [facility] GFR Estimate >90 >60 mL/min/1.7 3m2 02/20/2024 4:11 PM MIXER DRIVER [facility] Comment:eGFR calculated 2020 CKD-EPI equation. Calcium 9.8 8.8 - 10.4 mg/dL 02/20/2024 4:11 PM MIXER DRIVER [facility] Comment:Reference intervals for this test were updated on 09/26/2023 to reflect our healthy population more accurately. There may be differences in the flagging of prior results with similar values performed with this method. Those prior results can be interpreted in the context of the updated reference intervals. Chloride 105 98 - 107 mmol/L 02/20/2024 4:11 PM MIXER DRIVER [facility] Glucose 103(H) 70 - 99 mg/dL 02/20/2024 4:11 PM MIXER DRIVER [facility] Alkaline Phosphatase 81 40 - 150 U/L 02/20/2024 4:11 PM MIXER DRIVER [facility] AST 26 0 - 45 U/L 02/20/2024 4:11 PM MIXER DRIVER [facility] ALT 23 0 - 50 U/L 02/20/2024 4:11 PM MIXER DRIVER [facility] Protein Total 7.2 6.4 - 8.3 g/dL 02/20/2024 4:11 PM MIXER DRIVER [facility] Albumin 4.4 3.5 - 5.2 g/dL 02/20/2024 4:11 PM MIXER DRIVER [facility] Bilirubin Total 0.4 <=1.2 mg/dL 02/20/2024 4:11 PM MIXER DRIVER [facility] Patient Fasting > 8hrs? Yes 02/20/2024 4:11 PM MIXER DRIVER [facility] Blood BLOOD SPECIMEN / Unknown Venipuncture / Unknown 02/20/2024 8:29 AM MIXER DRIVER 02/20/2024 8:29 AM MIXER DRIVER Yves Ballard MD LAB - BLOOD ORDERABL ES Final Result [facility] [place] [facility] [address] [facility], [address] [place] [address] * (ABNORMAL) UA with Microscopic reflex to Culture (09/27/2023 8:59 PM CDT) Color Urine Straw Colorless, Straw, Light Yellow, Yellow 09/27/2023 9:15 PM CDT [facility] Appearance Urine Clear Clear 09/27/19 24 9:15 PM CDT [facility] Glucose Urine Negative Negative mg/dL 09/27/2023 9:15 PM CDT [facility] Bilirubin Urine Negative Negative 9:15 PM CDT [facility] Ketones Urine Negative Negative mg/dL 09/27/2023 9:15 PM CDT [facility] Specific [place]evay Urine 1.013 1.003 - 1.035 09/27/2023 9:15 PM CDT [facility] Blood Urine Negative Negative 09/27/2023 9:15 PM CDT [facility] pH Urine 5.0 5.0 - 7.0 [...] None Seen /HPF 09/27/2023 9:15 PM CDT [facility] Mucus Urine Present(A) None Seen /LPF [...] PM CDT 09/27/2023 9:06 PM CDT Narrative [facility] - 09/27/2023 9:15 PM CDT Urine Culture not indicated us Neil Marsh MD LAB - URINE ORDERABLES Final Result [facility] [address] [facility] (1st floor, no room number) [place] [address], [facility] from Last 3 Months or Most Recently Relevant to Health Maintenance Insurance MEDICARE [facility], [facility] Address: [address] [address] [place] [address] MEDICARE BC [place] [employer] Advance Directives For more information, please contact: [phone] * Full Code (Latest Code Status on [...] patie nt/ legal decision maker Care Teams Meat Cutting Teacher Relationship Specialty Start Date End Date Kyra Perera [address] [place] [address] PCP - General Physician Category Manager 03/31/22 Angel Hollins MD [address] [place], [place] [id number] [address] Neurology 07/20/23 Petra Dorado PA [address] [place] [address] Physician Category Manager Physical Medicine and Rehabilitation 07/20/23 Angel Hollins MD [address] [id number] [place] [address] Assigned Neuroscience Provider 08/03/23 Yves Ballard MD [address] [facility] [address] [place] [address] Assigned Heart and Vascular Provider 12/04/23
--- OUTSIDE RECORDS SUMMARY | 2024-06-27 10:21 | XMS_ITS | Encounter Summary ---
Author Organization [facility] Address [address] [facility] [place] [address] Care Team Providers Care Hairspring Studder Name Role Phone GwensofiKyra Arabella Primary Care Provider Angel Hollins MD Unavailable Petra Dorado Unavailable [phone] Angel Hollins MD Unavailable Yves Ballard MD Unavailable + [phone] Reason for Visit * Reason Onset Date Comments Appointment 12/22/2023 Virtual - return vascular Encounter Details Date Type Department Care Team (Late st Contact Info) Description 12/22/2023 Telephone [facility] [place] [address] [place] [phone] Yves Ballard MD [address] [place] [phone] Appointment (Virtual - return vascular) Social History [...] file Legal Sex Female 3:34 AM DIRECTOR INTERNATIONAL Gender Identity Not on file Sexual Orientation [...] Description 08/13/2024 4:00 PM CDT Virtual Visit [facility] [place] [address] [place] [phone] Yves Ballard MD [address] [place] [address] documented as of this encounter Visit Diagnoses Not on filedocumented in this encounter Care Teams Hairspring Studder Relationship Specialty Start Date End Date GwensofiPramodflavio Bell [address] [place] [address] PCP - General Physician Health Therapist 03/31/22 Angel Hollins MD [address] [facility] [id number] [place], [place] [id number] Neurology 07/20/23 Petra Dorado PA [address] [place], [place] [address] Physician Health Therapist Physical Medicine and Rehabilitation 07/20/23 Angel Hollins MD [address] [id number] [place] [address] Assigned Neuroscience Provider 08/03/23 Yves Ballard MD [address] [facility] [address] [place] [address] Assigned Heart and Vascular Provider 12/04/23 documented as of this encounter
--- OUTSIDE RECORDS SUMMARY | 2024-06-27 10:21 | XMS_ITS | Clinical Summary ---
Author Organization [facility] Address [address] [place] [address] Care Team Providers Care Correction Officer Supervisor Name Role Phone Bettye Davis MD Primary [...] for each transition of care or referral. [facility] Allergies Active Allergy Reactions Criticality Noted Date Comments Atorvastatin 10/28/2010 Caused myalgias. Diltiazem Anxiety 05/12/2011 Hydralazine Tachycardia 05/12/2011 Hydrochlorothiazide 09/26/2007 ? asthma Hydrocodone-Acetaminophen Nausea And Vomiting 1 05/01/2011 Lorazepam 03/26/2010 Pt reports depression Methyldopa Rash 06/13/2011 Morphine 05/22/2006 Penicillins 05/22/2006 Rosuvastatin 10/28/2010 Caused myalgias. Shellfish-Derived Products Angioedema High 1 Had severe pain and swelling after lobster Sulfa Antibiotics Hives High 05/22/2006 Medications ALPRAZolam (XANAX) 0.25 MG tablet TAKE 1/2 TABLET TWICE DAILY NEEDED 7 Active aspirin, enteric-coated 81 MG enteric coated tablet Daily 7 Active Cholecalciferol (VITAMIN D3) 2000 units Take 2,000 Units by mouth. 2 Active Coenzyme Q10 (SM COENZYME Q-10) 100 MG Take 100 mg by mouth. 7 Active fluticasone (FLONASE) 50 MCG/ACT nasal solution INHALE 1-2 SPRAY IN EACH NOSTRIL BY INTRANASAL ROUTE ONCE DAILY. 4 Active meclizine (ANTIVERT) 25 MG tablet Take 25 mg by mouth. 6 Active nitroglycerin (NITROSTAT) 0.[address] 0.4 mg under tongue. 8 Active pravastatin (PRAVACHOL) 20 MG tablet Take 10 mg by mouth. 8 Active Social History Tobacco Use Types Packs/Day Years Used Date Smoking Tobacco: Never Smokeless Tobacco: Never Comments Unknown Sex and Gender Information Value Date Recorded Sex Assigned at Not on file Legal Sex Female 6:33 AM CDT Gender Identity Not on file Sexual Orientation Not on file Plan of Treatment Health Maintenance Due Date Last Done Comments Hep C Screening (Preventive Services) 1950 Medicare Annual Wellness Visit 1950 Cholesterol 06/21/1995 Pneumococcal Vaccine 50+ Yrs (1 of 1 - PCV) 2000 Zoster/Shingles Vaccine (1 o f 2) 2000 Colon Cancer Screening Plan Due 04/21/2012 04/20/2012 Dexa 06/21/2015 DTaP/Tdap/Td Vaccine (2 - Tdap) 05/29/2017 05/30/2007 Mammogram 12/08/2022 12/08/2021, 01/05/2012 COVID-19 Vaccine (2 - 2023-2 5 season) 2023 05/23/2020 Influenza Vaccine (#1) 2023 RSV Vaccine (1 - 1-dose 75+ series) 2025 HepA Vaccine Aged Out No longer eligi ble based on patient's age to complete this topic HepB Vaccine Aged Out No longer eligi ble based on patient's age to complete this topic Hib Vaccine Aged Out No longer eligi ble based on patient's age to complete this topic IPV (Polio) Vaccine Aged Out No longe r eligible based on patient's age to complete this topic MCV4 Vaccine Aged Out No longer eligi ble based on patient's age to complete this topic Meningococcal B Vaccine Aged Out No l onger eligible based on patient's age to complete this topic Insurance [facility] [place] MEDICARE MANAGED CARE [facility] Care Teams Correction Officer Supervisor Relationship Specialty Start Date End Date Bettye Davis MD [address] [place] [address] PCP - General 06/13/10
--- OUTSIDE RECORDS SUMMARY | 2024-06-27 10:21 | XMS_ITS | Encounter Summary ---
Author Organization [place] Address [address] [facility] [place] [address] Care Team Providers Care Clay Puddler Name Role Phone Kyra Perera Arabella Primary Care Provider [phone] Angel Hollins MD Unavailable [phone] Petra Dorado Unavailable [phone] Angel Hollins MD Unavailable Yves Ballard MD Unavailable + [phone] Reason for Visit * Reason Comments RECHECK Pt. will have labs d one at [facility] (pt to call with fax # see encounter) Follow up to 02/29/24 *gbn Encounter Details Date Type Department Care Team (Latest Contact Info) Description 06/13/2024 11:30 AM CDT Office Visit [facility] [place] 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 Gender Identity Not on file Sexual Orientation Not on file documented as of this encounter Last Filed Vital Signs Vital Sign Reading Time Taken Comments Blood Pressure 172/93 06/13/2024 11:33 AM CDT Pulse 83 06/13/2024 11:33 AM CDT Temperature - - Respiratory Rate - - Oxygen Saturation 97% 06/13/2024 11:33 AM CDT Inhaled Oxygen Concentration - - Weight 62.6 kg (138 lb) 06/13/2024 11:33 AM CDT Height - - Body Mass Index 25.24 01/27/2024 10:05 PM NETWORK PROGRAM MANAGER documented in this encounter Patient Instructions * Patient Instructions* Yves Ballard MD - 06/13/2024 11:30 AM CDT Take Zypitamag 1 mg daily at night time Work with cardiology service for renal denervation etc Your Lipoprotein A is High , you will benefit with PCSK 9 inhibitors ( Reptatha or Praluent) New Rxsent New Rx praluent 75 mg sent to [facility] take every 14 days ( ask phamacist to teach) Video visit with me in 2 to 3 months documented in this encounter Progress Notes * Alycia Hays MA - 06/13/2024 11:30 AM CDT [facility] Patient is here for a follow up. Pt is currently taking Aspirin. BP (!) 172/93 (BP Location: Left arm, Patient Position: Sitting, Cuff Size: Adult Regular) Pulse 83 Wt 138 lb (62.6 kg) SpO2 97% BMI 25.24 kg/m?? The provider has been notified that the patient has concerns of medication. Questions patient would like addressed today are: N/A. Refills are needed: N/A Has homecare services and agency name: No Patient has been identified as a fall risk. Interventions were completed as noted below: [x]Exam tables/chairs remained in the lowest position. []Patient remained in wheelchair. []Provider requested patient in exam chair. Patient required assist and use of transfer belt. [x]Exam room door remained open unless with a provider. []A gaytan provided to patient to notify staff if assistance was needed. [x]Provider notified patient was identified as a fall risk. Alycia Hays MA * Yves Ballard MD - 06/13/2024 11:30 AM CDT [facility] Follow-up visit For full details please see my previous office visit notes Review of recent labs Allergic to 29 different medications Able to tolerate Zypitamag 1 mg every other day Recent lipids improved but not at goal High lipoprotein a She could not tolerate Zetia either stopped taking Her insurance did not cover Repatha but covered Praluent but it was costing more than $700 and she never took it Recently seen and evaluated by cardiology service her blood pressure is very high and cannot handleany medications except low-dose metoprolol 12.5 twice a day She is scheduled to undergo renal denervation through [facility] end of this month she is also scheduled to see her primary clock assembler tomorrow Lasix 20 mg 2 times a week For full details please see my previous office visit notes PAST MEDICAL HISTORY Past Medical History: Diagnosis Date Anxiety CAD (coronary artery disease) HLD (hyperlipidemia) HTN (hypertension) SHERRIE (obstructive sleep apnea) PONV (postoperative nausea and vomiting) CURRENT MEDICATIONS Current Outpatient Medications Medication Sig Dispense Refill acetaminophen (TYLENOL) 325 MG tablet Take 2 tablets (650 mg) by mouth every 4 hours as needed for mild pain or other (and adjunct with moderate or severe pain or per patient request) alirocumab (PRALUENT) 75 MG/ML injectable pen Inject 1 mL (75 mg) subcutaneously every 14 days. 6 mL 3 ALPRAZolam (XANAX) 0.25 MG tablet Take 0.5 tablets by mouth 3 times daily as needed for anxiety. aspirin 81 MG EC tablet Take 1 tablet (81 mg) by mouth daily famotidine (PEPCID) 20 MG tablet Take 20 mg by mouth daily as needed. furosemide (LASIX) 20 MG tablet Take 20 mg by mouth twice a week. metoprolol tartrate (LOPRESSOR) 25 MG tablet Take 12.5 mg by mouth 2 times daily. nitroGLYcerin (NITROSTAT) 0.[address] 0.4 mg under the tongue every 5 minutes asneeded for chest pain For chest pain place 1 tablet under the tongue every 5 minutes for 3 doses. If symptoms persist 5 minutes after 1st dose call 911. Pitavastatin Magnesium (ZYPITAMAG) 2 MG TABS Take 2 mg by mouth at bedtime. 30 tablet 11 Vitamin D3 (VITAMIN D, CHOLECALCIFEROL,) 25 mcg (1000 units) tablet Take 1 tablet by mouth daily. No current facility-administered medications for this visit. PAST SURGICAL HISTORY: Past Surgical History: Procedure Laterality Date CHOLECYSTECTOMY ESOPHAGOSCOPY, GASTROSCOPY, DUODENOSCOPY (EGD), COMBINED N/A 09/04/2023 Procedure: Esophagoscopy, gastroscopy, duodenoscopy (EGD), combined using cold bx forcep; Surgeon: Jensen Contreras MD; Location: [facility] Allergies Allergen Reactions Chlorthalidone Shortness Of Breath Clonidine Shortness Of Breath Gabapentin Shortness Of Breath Labetalol Shortness Of Breath Losartan Shortness Of Breath Noted dyspnea Lyrica [Pregabalin] Shortness Of Breath Morphine Anaphylaxis Propafenone Shortness Of Breath Shellfish-Derived Products Other reaction(s): Angioedema Had severe pain and swelling after lobster Sulfa Antibiotics Hives Verapamil Shortness Of Breath Abdias Inhibitors Atorvastatin Other reaction(s): Myalgia Caused myalgias. Caused myalgias. Caused myalgias. Caused myalgias. Doxazosin Other (See Comments) Bleeding Hydralazine Other reaction(s): Tachycardia Hydrochlorothiazide ? asthma ? asthma Hydrocodone-Acetaminophen Nausea and Vomiting Isosorbide Nitrate Headache Lactose Other reaction(s): Intolerance-Can't Take Flu-like symptoms Latex Other (See Comments) Lisinopril Other reaction(s): Chest Pain Lorazepam Other (See Comments) Pt reports depression Pt reports depression Olmesartan Dizziness vertigo Penicillins Swelling Other reaction(s): Angioedema, Angioedema Rosuvastatin Other reaction(s): Myalgia Caused myalgias. Caused myalgias. Caused myalgias. Caused myalgias. Amlodipine Palpitations Diltiazem Anxiety Methyldopa Rash Propranolol Anxiety FAMILY HISTORY Family History Problem Relation Age of Onset Cancer Sister Prostate Cancer Brother SOCIAL HISTORY Social History Socioeconomic History Marital status: Single Spouse name: Not on file Number of children: Not on file Years of education: Not on file Highest education level: Not on file Occupational History Not on file Tobacco Use Smoking status: Never Smokeless tobacco: Never Substance and Sexual Activity Alcohol use: Not Currently Drug use: Not Currently Sexual activity: Not on file Other Topics Concern Not on file Social History Narrative Not on file Social Drivers of Health Financial Resource Strain: Low Risk (04/16/2024) Received from [employer] Financial Resource Strain Difficulty of Paying Living Expenses: 3 Difficulty of Paying Living Expenses: Not on file Food Insecurity: No Food Insecurity (04/16/2024) Received from [employer] Food Insecurity Do you worry your food will run out before you are able to buy more?: 1 Transportation Needs: No Transportation Needs (04/16/2024) Received from [employer] Transportation Needs Does lack of transportation keep you from medical appointments?: 1 Does lack of transportation keep you from work, meetings or getting things that you need?: 1 Physical Activity: Not on file Stress: Not on file Social Connections: Socially Integrated (04/16/2024) Received from [employer] [facility] Social Connections Do you often feel lonely or isolated from those around you?: 0 Interpersonal Safety: Not on file Housing Stability: Low Risk (04/16/2024) Received from [employer] [facility] Housing Stability What is your housing situation today?: 1 ROS: General: No change in weight, sleep or appetite. Normal energy. No fever or chills Eyes: Negative for vision changes or eye problems ENT: No problems with ears, nose or throat. No difficulty swallowing. Resp: No coughing, wheezing or shortness of breath CV: No chest pains or palpitations GI: No nausea, vomiting, heartburn, abdominal pain, diarrhea, constipation or change in bowel habits : No urinary frequency or dysuria, bladder or kidney problems Musculoskeletal: Right-sided weakness due to recent stroke Neurologic: History of stroke with right-sided weakness Psychiatric: Generalized anxiety Heme/immune/allergy: No history of bleeding or clotting problems or anemia. No allergies or immune system problems Endocrine: No history of thyroid disease, diabetes or other endocrine disorders Skin: No rashes,worrisome lesions or skin problems Vascular: No claudication, lifestyle limiting or otherwise; no ischemic rest pain; no non-healing ulcers. No weakness, No loss of sensation EXAM: BP (!) 172/93 (BP Location: Left arm, Patient Position: Sitting, Cuff Size: Adult Regular) Pulse 83 Wt 138 lb (62.6 kg) SpO2 97% BMI 25.24 kg/m?? In general, the patient is a pleasant female in no apparent distress. Heart: RRR. Normal S1, S2 splits physiologically. No murmur, rub, click, or gallop. Lungs: CTA. No ronchi, wheezes, rales. No dullness to percussion. Abdomen: Soft, nontender, nondistended. No organomegaly. No AAA. No bruits. Extremities: Right upper extremity and lower extremity weaker Good palpable pulses in both lower extremities Right lower extremity lymphedema Labs: LIVER ENZYME RESULTS: Lab Results Component Value Date AST 26 02/20/2024 AST 30 08/16/2019 ALT 23 02/20/2024 ALT 47 08/16/2019 CBC RESULTS: Lab Results Component Value Date WBC 5.2 01/27/2024 WBC 5.9 08/16/2019 RBC 5.25 (H) 01/27/2024 RBC 5.11 08/16/2019 HGB 15.5 01/27/2024 HGB 15.0 08/16/2019 HCT 46.9 01/27/2024 HCT 44.9 08/16/2019 MCV 89 01/27/2024 MCV 88 08/16/2019 MCH 29.5 01/27/2024 MCH 29.4 08/16/2019 MCHC 33.0 01/27/2024 MCHC 33.4 08/16/2019 RDW 12.8 01/27/2024 RDW 13.2 08/16/2019 PLT 215 01/27/2024 PLT 225 08/16/2019 BMP RESULTS: Lab Results Component Value Date NA 142 02/20/2024 NA 141 08/16/2019 POTASSIUM 4.5 02/20/2024 POTASSIUM 3.6 08/16/2019 CHLORIDE 105 02/20/2024 CHLORIDE 109 08/16/2019 CO2 26 02/20/2024 CO2 27 08/16/2019 ANIONGAP 11 02/20/2024 ANIONGAP 5 08/16/2019 GLC 103 (H) 02/20/2024 GLC 110 (H) 01/27/2024 GLC 123 (H) 08/16/2019 BUN 16.2 02/20/2024 BUN 18 08/16/2019 CR 0.69 02/20/2024 CR 0.76 08/16/2019 GFRESTIMATED >90 02/20/2024 GFRESTIMATED 80 08/16/2019 GFRESTBLACK >90 08/16/2019 LIZ 9.8 02/20/2024 LIZ 8.3 (L) 08/16/2019 Procedures: Reviewed recent imaging studies, neurology evaluation in the epic Assessment and Plan: 1. Hypertension, uncontrolled and intolerance to almost all class of drugs currently taking lowest dose of metoprolol 12.5 twice a day 2. Atherosclerosis of abdominal aorta (H24) 3. Hx of Cerebrovascular accident (CVA), (H) 4. Hyperlipidemia LDL goal <70 Intolerance to all statins and Zetia Able to handle Zypitamag 1 mg every other day 5. Elevated Lipoprotein a 192 nmol/L 6. Statin intolerance This is a very pleasant 73-year-old female with complex and complicated past medical and past surgical history intolerance to multiple medications listed 29 medication allergies uncontrolled hypertension only able to take low-dose metoprolol 12.5 mg twice a day intolerance to almost all statins andZetia except able to handle Zypitamag 1 mg every other day with very high lipoprotein a with history of atherosclerosis of abdominal aorta, previous stroke at risk for recurrent events. She is scheduled to see primary clock assembler tomorrow and planning to undergo renal denervation forblood pressure control at [facility] in last week of June which is a reasonable approach. I prescribed in the past the Repatha her insurance did not cover and they covered Praluent but it was costing more than $700 and she never took it Since she is able to handle Zypitamag 1 mg every other day suggested patient to take 1 mg daily Therapeutic lifestyle modifications suggested Prescribed again Praluent 75 mg every 2 weeks to see if her insurance covers this year if not Only other option is Leqvio injections in the future we will decide once she undergoes renal denervation therapy etc. More than 40 minutes spent on the date of the encounter doing chart review, review of recent labs, previous evaluation, history, exam, documentation and addressed above-mentioned issues. AVS with written instructions done Medications refilled The longitudinal care of plan for the above diagnoses was addressed during this visit. Due to addedcomplexity of care, we will continue to supprt Deyon M Kaye and the subsequent management of this/these conditions and with ongoing continuity of care for this/these conditions. Video visit with me in 2 to 3 months Yves Ballard MD,FASARA,FSVM,FNLA, FACP Vascular Medicine Clinical Hypertension Specialist Clinical Lipidologist documented in this encounter Plan of Treatment Upcoming Encounters Date Type Department Care Team (Late st Contact Info) Description 08/13/2024 4:00 PM CDT Virtual Visit [facility] [place] 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 Other disorders of lipoid metabolism Atherosclerosis of abdominal aorta Atherosclerosis of aorta Hx of Cerebrovascular accident (CVA), (H) Benign essential hypertension ( intolerence to multiple BP meds) Essential hypertension, benign documented in this encounter Care Teams Clay Puddler Relationship Specialty Start Date End Date MyleslorieKyra Arabella [address] [place] [address] PCP - General Physician Telecommunicator 03/31/22 Angel Hollins MD [address] [address] Neurology 07/20/23 Petra Dorado PA [address] [place], [place] [address] Physician Telecommunicator Physical Medicine and Rehabilitation 07/20/23 Angel Hollins MD [address] [address] Assigned Neuroscience Provider 08/03/23 Yves Ballard MD [address] [place] [address] Assigned Heart and Vascular Provider 12/04/23 documented as of this encounter
--- OUTSIDE RECORDS SUMMARY | 2024-06-27 10:22 | XMS_ITS | Clinical Summary ---
Author Organization [facility] [employer] [facility] Address [address] [address] Phone Care Team Providers Care Hairspring Studder Name Role Phone Elsewhere, Pcp Primary Care [...] Treatment Not on [place] [address] Care Teams Hairspring Studder Relationship Specialty Start Date End Date Elsewhere, Pcp PCP - General 12/20/14
--- OUTSIDE RECORDS SUMMARY | 2024-06-27 10:22 | XMS_ITS | Encounter Summary ---
Author Organization [place] Address [address] [place] [id number] Care Team Providers Care Senior Patient Account Representative Name Role Phone Kyra Perera Primary Care Provider [phone] Angel Hollins MD Unavailable Petra Dorado Unavailable [phone] Angel Hollins MD Unavailable Yves Ballard MD Unavailable + [phone] Reason for Visit * Reason Onset Date Comments Referral 07/19/2023 Encounter Details Date Type Department Care Team (Late st Contact Info) Description 07/19/2023 [facility] - [address], [address] [place] [address] None Referral Social History Tobacco Use Types Packs/Day Years Used Date Smoking Tobacco: Never Assessed Adolescent Education Answer Date Record ed Getting School Help Needed Not on file 12/25 Comments Unknown Sex and Gender Information Value Date Recorded Sex Assigned at Not on file 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 Janay unable to schedule due to no specific instructions to schedule. Please contact patients daughter fatemeh to schedule. Action Taken: Message routed to: Other: [facility] Travel Screening: Not Applicable documented in this encounter Plan of Treatment Upcoming Encounters Date Type Department Care Team (Late st Contact Info) Description 08/13/2024 4:00 PM CDT Virtual Visit [facility] [place] [address] [place] [phone] Yves Ballard MD [address] [place] [address] documented as of this encounter Visit Diagnoses Not on filedocumented in this encounter Care Teams Senior Patient Account Representative Relationship Specialty Start Date End Date Kyra Perera [address] [place] [address] PCP - General Physician Replenisher 03/31/22 Angel Hollins MD [address] [address] Neurology 07/20/23 Petra Dorado PA [address] [place] [address] [address] Physician Replenisher Physical Medicine and Rehabilitation 07/20/23 Angel Hollins MD [address] [address] Assigned Neuroscience Provider 08/03/23 Yves Ballard MD [address] [place] [address] Assigned Heart and Vascular Provider 12/04/23 documented as of this encounter
--- OUTSIDE RECORDS SUMMARY | 2024-06-27 10:22 | XMS_ITS | Clinical Summary ---
Author Organization [employer] [facility] [employer] [facility] Address [address] [place] [id number] Care Team Providers Care Physical Therapist Name Role Phone Kyra Perera Primary Care Provider Genaro Leonard MD Unavailable Janay Nunez MD Unavailable Carolyn Pisano Unavailable [phone] Keo Escobar MD Unavailable Allergies Active Allergy [...] 05/02/2011 Hydrocodone-Acetaminophen Nausea And Vomiting 1 05/01/2011 Ezetimibe Other - Describe In Comment Field 05/24/2024 Pins and needles feeling all over her body, swollen throat, muscle pain Medications aspirin (ECOTRIN) 81 mg enteric coated tablet Daily 0 7 Active meclizine (ANTIVERT) 25 mg tabletIndications: Vertigo Take 1 tablet by mouth 3 times daily if needed. 30 tablet 1 9 Active ondansetron (ZOFRAN ODT) 4 mg disintegrating tabletIndications: Nausea DISSOLVE 1 TABLET ON TONGUE EVERY 6 HOURS NEEDED FOR VOMITING 30 Tablet 2 1 Active cholecalciferol (Vitamin D-3) 2,000 unit capsuleIndications :Vitamin D deficiency Take 2 Capsules (4,000 units) by mouth once daily. 0 2 Active famotidine (Pepcid AC) 10 mg tabletIndications: Mast cell activation syndrome (HC) Take 1 Tablet (10 mg) by mouth once daily. 3 Active fluticasone (50 mcg per actuation) nasal solution (FLONASE)Indicatio ns:Acute non-recurrent maxillary sinusitis INHALE 1-2 SPRAYS IN EACH NOSTRIL BY INTRANASAL ROUTE ONCE DAILY. 48 g 3 3 Active durable medical equipment (DME)Indications:L ymphedema Edema glove for daily use 2 Each 4 Active furosemide (LASIX) 20 mg tabletIndications: Hypertension, unspecified type every other morning. 45 Tablet 3 4 Active ALPRAZolam (XANAX) 0.25 mg tabletIndications: Anxiety state TAKE ONE-HALF TABLET BY MOUTH THREE TIMES DAILY NEEDED 60 Tablet 5 4 Active metoprolol tartrate (LOPRESSOR) 25 mg tabletIndications: Hypertension, unspecified type Take 0.5 Tablets (12.5 mg) by mouth two times daily. 90 Tablet 1 4 Active diazePAM (VALIUM) 5 mg tabletIndications: Anxiety state TAKE 1/2-1 TABLETS BY MOUTH EVERY 6 HOURS NEEDED FOR ANXIETY. 20 Tablet 1 4 Active nitroglycerin (NITROSTAT) 0.4 mg sublingual tabletIndications: Chest pain in adult Place 1 Tablet (0.4 mg) under the tongue every 5 minutes if needed for Chest Pain. Patient tolerated in the past. 25 Tablet 5 4 Active traMADoL (ULTRAM) 50 mg tabletIndications: C6 radiculopathy Take 1 Tablet (50 mg) by mouth 3 times daily if needed for Pain. 24 Tablet 1 5 Active Pitavastatin (Livalo) 1 mg tabIndications:Hyp erlipidemia, unspecified hyperlipidemia type Take one 1 mg tab by mouth twice weekly. 5 Active pitavastatin magnesium (Zypitamag) 2 mg tab Take 1 mg by mouth one time. Active Active Problems Problem Noted Date Diagnosed [...] Encounters Date Type Department Care Team Description 06/24/2024 8:10 AM CDT Office Visit [facility] [address] [facility] [place] [address] Kyra Perera PA Follow Up (Been in bed a lot, having pain all over / discuss procedure coming up) 06/24/2024 Travel 06/14/2024 11:30 AM CDT Office Visit [facility] [address] [facility] [address] [place] [address] Janay Nunez MD Follow Up (3 MONTH F/U, DISCUSS RENAL DENERVATION /DX;00.2 (ICD-10-CM) - Palpitations; Hypertension; LVH (left ventricular hypertrophy); Cardiomyopathy, unspecified type (HC); Paroxysmal SVT (supraventricular tachycardia) (HC)//PT STATES SHE IS FATIGUED FROM HER STROKE. GETS SOME PALPITATIONS WHEN SHE TAKES METOPROLOL/) 06/14/2024 Telephone [facility] [address] [place] [address] Janay Nunez MD notification 06/14/2024 Orders Only [facility] [address] [place] [address] Janay Nunez MD <No scans attached> 06/14/2024 Travel 06/11/2024 Telephone [facility] [address] [place] [address] Janay Nunez MD Renal Denervation 06/07/2024 Orders Only [facility] [address] [place] [address] Janay Nunez MD <No scans attached> 06/06/2024 9:20 AM CDT Office Visit [facility] [address] [place] [address] Keo Escobar MD Musculoskeletal Problem (Follow up neck and right arm pain) 06/06/2024 Travel 05/29/2024 Telephone [facility] [address] [place] [address] Kyra Perera PA FYI (lab ) 05/20/2024 9:30 AM CDT [facility] [place] [address] Kyra Perera PA Follow Up 05/20/2024 Travel 05/16/2024 8:15 AM TICKET SALES AGENT Orders Only [facility] [place] [address] Lab, [place] Lab 05/16/2024 Travel 05/10/2024 Telephone [facility] [address] [place] [address] Kyra Perera PA Medication Management (reaction) 05/06/2024 3:00 PM TICKET SALES AGENT Ancillary Procedure [facility] [address] [place] [address] 05/06/2024 Travel 05/01/2024 Orders Only [facility] [address] [place] [address] Jose Luis Bush MD <No scans attached> 04/16/2024 10:50 AM TICKET SALES AGENT [facility] [place] [address] Kyra Perera PA Medication Management (Stopped taking olmesartan. ); Concerns 04/16/2024 Travel 04/11/2024 8:30 AM TICKET SALES AGENT Orders [facility] [place] [address] Lab, [place] [facility] 04/10/2024 10:40 AM TICKET SALES AGENT [facility] [place] [address] Keo Escobar MD Musculoskeletal Problem (Follow up neck, and right arm pain review recent MRI) 04/10/2024 Travel from Last 3 Months Immunizations Immunization Administration Dates Next Due COVID-19 vaccine (Amna-J&J) REBA HOPKINS 1 Td, Preservative Free (age >= 7 Years) 8 Tdap 05/30/2007 Family History Medical History Relation Name Comments Heart Disease Brother 1 Osteoarthritis Brother 1 back and leg Other Brother 1 pulmonary hyper tension Cancer-prostate Brother 2 Other Brother [address] y, htn Good Health Brother 4 Heart Disease Brother 5 Heart Disease Brother 6 Hyperlipidemia Brother 7 Other Father d54 [place], liver e tom Cancer-breast Maternal Aunt Other [...] 0 11/22/2023 Social Connections Answer Date Recorded Do you often feel lonely or isolated from those around you? 0 04/16/2024 Financial Resource Strain Answer Date R ecorded Difficulty of Paying Living Expenses 3 04/16/2024 Difficulty of Paying Living Expenses Not on file 04/16/2024 Food Insecurity Answer Date Recorded Do you worry your food will run out before you are able to buy more? 1 04/16/2024 Transportation Needs Answer Date Record ed Does lack of transportation keep you from medica l appointments? 1 04/16/2024 Does lack of transportation keep you from work, meetings or getting things that you need? 1 04/16/2024 Housing Stability Answer Date Recorded What is your housing situation today? 1 04/16/2024 Utilities Answer Date Recorded Do you have trouble paying f or utilities (for example, heat, electricity, water, phone)? 1 04/16/2024 Comments No Sex and Gender Information Value Date Recorded Sex Assigned at Not on file Legal Sex Female 5:26 AM TICKET SALES AGENT Gender Identity Not on file Sexual Orientation Not on file Obstetrics History Last Filed Vital Signs Vital Sign Reading Time Taken Comments Blood Pressure 181/84 06/24/2024 8:17 AM CDT Pulse 77 06/24/2024 8:17 AM CDT Temperature 36.7 C (98 F) 06/06/2024 9:28 AM CDT Respiratory Rate 18 06/23/2023 11:23 AM CDT Oxygen Saturation 97% 06/24/2024 8:17 AM CDT Inhaled Oxygen Concentration - - Weight 62.1 kg (137 lb) 06/24/2024 8:17 AM CDT Height 157.5 cm (5' 2) 06/14/2024 11:30 AM CDT Body Mass Index 25.06 06/14/2024 11:30 AM CDT Plan of Treatment Upcoming Encounters Date Type Department Care Team (Late st Contact Info) Description 07/03/2024 12:00 PM CDT Appointment [facility] [address] [place] [address] 07/09/2024 10:50 AM CDT Office Visit [facility] [address] [place] [address] Kyra Perera PA [address] [place] [address] 09/03/2024 1:30 PM CDT Office Visit [facility] [address] [facility] [address] [place] [address] Janay Nunez MD [address] [place] [address] 09/04/2024 10:00 AM CDT Office Visit [facility] [address] [place] [address] Keo Escobra MD [address] [place] [address] 09/04/2024 1:00 PM CDT Telemedicine [facility] [address] [facility] [address] [place] [phone] Junito Greer MD [address] [place] [address] Health Maintenance Due Date Last Done Comments Pneumococcal series for age 50+ (1 of 2 - PCV) 1969 Zoster (shingles) series for age 50+ (1 of 2) 2000 RSV vaccine for adults or (1 - Risk 60-74 years 1-dose series) 2010 DEXA/DXA scan for age 65+ 06/21/2015 COVID-19 vaccine series ( season) 2023 03/16/2021, 05/23/2020 Mammogram for age 45-75 10/08/2024 10/09/19 24, 12/08/2021, 12/31/2020, Additional history exists Influenza Vaccine (Season Ended) 2024 Depression screening for age 12+ 11/21/2024 11/22/2023, 09/08/2023, 01/21/2022, Additional history exists Medicare Wellness for age 65+ 11/22/2024, 01/21/2022, 01/19/2021, Additional history exists BMI (ht and wt on same day) for age 18+ 06/14/2025 06/14/2024, 03/07/2024, 11/22/2023, Additional history exists Tetanus booster 11/09/2027 11/08/2017, 05/30/2007 Lipids for age 45-75 06/24/2029 06/24/2024, 05/16/2024, 04/11/2024, Additional history exists Colonoscopy through age 75 10/10/203210/10, 10/10/2022, 10/10/2022, Additional history exists Tdap Completed 05/30/2007 Hepatitis C screening for ag e 18-79 Completed 02/09/2016 Procedures Procedure Name Priority Date/Time Associated Diagnosis Comments CBC W PLT NO DIFF Routine 06/24/2024 9:0 3 AM CDT Palpitations Hypertension LVH (left ventricular hypertrophy) Cardiomyopathy, unspecified type (HC) Paroxysmal SVT (supraventricular tachycardia) (HC) COMP METABOLIC PANEL Routine 06/24/2024 9:03 AM CDT Palpitations Hypertension LVH (left ventricular hypertrophy) Cardiomyopathy, unspecified type (HC) Paroxysmal SVT (supraventricular tachycardia) (HC) LIPID PANEL W REFLEX MEASURED LDL Routine 06/24/2024 9:03 AM CDT Palpitations Hypertension LVH (left ventricular hypertrophy) Cardiomyopathy, unspecified type (HC) Paroxysmal SVT (supraventricular tachycardia) (HC) SCAN CORRESP-IMAGING 06/10/2024 1:17 PM CDT SCAN CORRESP-IMAGING 06/10/2024 1:17 PM CDT SCAN CORRESP-DIAGNOSTICS 06/10/2024 1:17 PM CDT LIPID PANEL W REFLEX MEASURED LDL Routine 05/16/2024 8:32 AM TICKET SALES AGENT Cerebrovascular accident (CVA), unspecified mechanism (HC) LIPOPROTEIN A Routine 05/16/2024 8:32 AM TICKET SALES AGENT Cerebrovascular accident (CVA), unspecified mechanism (HC) TSH Routine 05/16/2024 8:32 AM TICKET SALES AGENT Cerebrovascular accident (CVA), unspecified mechanism (HC) Pruritus, unspecified XR SPINE CERVICAL 2 VIEWS FLEXION AND EXTENSION Routine 05/06/2024 3:22 PM TICKET SALES AGENT Pain of cervical spine HEMOGLOBIN Routine 04/16/2024 12:03 PM TICKET SALES AGENT Cerebrovascular accident (CVA), unspecified mechanism (HC) Fatigue, unspecified type FERRITIN Routine 04/16/2024 12:03 PM TICKET SALES AGENT Cerebrovascular accident (CVA), unspecified mechanism (HC) Fatigue, unspecified type Bariatric surgery status IRON PLUS IRON BINDING CAP Routine 04/16/2024 12:03 PM TICKET SALES AGENT Cerebrovascular accident (CVA), unspecified mechanism (HC) Fatigue, unspecified type Other pruritus VITAMIN D 25 (DEFICIENCY) Routine 04/16/2024 12:03 PM TICKET SALES AGENT Vitamin D deficiency BASIC METABOLIC PANEL Routine 04/16/2024 12:03 PM TICKET SALES AGENT Cerebrovascular accident (CVA), unspecified mechanism (HC) BASIC METABOLIC PANEL Routine 04/11/2024 8:29 AM TICKET SALES AGENT Hypertension, unspecified type Cerebrovascular accident (CVA), unspecified mechanism (HC) LIPID PANEL W REFLEX MEASURED LDL Routine 04/11/2024 8:29 AM TICKET SALES AGENT Cerebrovascular accident (CVA), unspecified mechanism (HC) XR MAMMO ALEENA BILAT SCREEN Routine 10/09/2023 3:57 PM CDT Visit for screening mammogram COLONOSCOPY SCREENING Routine 10/10/2022 12:00 AM CDT Screen for colon cancer ANTI HCV Routine 02/09/2016 10:00 AM TICKET SALES AGENT Need for hepatitis C screening test from Last 3 Months or Most Recently Relevant to Health Maintenance Results * (ABNORMAL) LIPID PANEL W REFLEX MEASURED LDL (06/24/2024 9:03 AM CDT) Only the most recent of3 resultswithin the time period is included. CHOLESTEROL, TOTAL 236(H) <200 mg/dL [facility] HDL CHOLESTEROL 46(L) > OR = 50 mg/dL [facility] TRIGLYCERIDES 295(H) <150 mg/dL [facility] Comment: If a non-fasting specimen was collected, consider repeat triglyceride testing on a fasting specimen if clinically indicated. Sue et al. J. of Clin. Lipidol. 2015;9:129-169. LDL-CHOLESTEROL 145(H) mg/dL (calc) [facility] Comment: Reference range: <100 Desirable range <100 mg/dL for primary prevention; <70 mg/dL for patients with CHD or diabetic patients with > or = 2 CHD risk factors. LDL-C is now calculated using the Benji calculation, which is a validated novel method providing better accuracy than the Friedewald equation in the estimation of LDL-C. Andrea SS et al. TEODORO. 2013;310(19): 5568-2336 (http://education.[employer]/faq/NFT318) CHOL/HDLC RATIO 5.1(H) <5.0 (calc) [facility] NON HDL CHOLESTEROL 190(H) <130 mg/dL (calc) [facility] Comment: For patients with diabetes plus 1 major ASCVD risk factor, treating to a non-HDL-C goal of <100 mg/dL (LDL-C of <70 mg/dL) is considered a therapeutic option. Blood BLOOD SPECIMEN / Unknown 06/24/2024 9:03 AM CDT 06/24/2024 9:03 AM CDT [facility] Chano Nunez MD CHEMISTRY Final Result [employer] [facility] [address] [place] [address], [employer] [address] * (ABNORMAL) CBC W PLT NO DIFF (06/24/2024 9:03 AM CDT) WHITE BLOOD CELL COUNT 4.7 3.8 - 10.8 Thousand/u L [facility] RED BLOOD CELL COUNT 5.50(H) 3.80 - 5.10 Million/uL [facility] HEMOGLOBIN 15.9(H) 11.7 - 15.5 g/dL [facility] HEMATOCRIT 50.0(H) 35.0 - 45.0 % [facility] MCV 90.9 80.0 - 100.0 fL [facility] MCH 28.9 27.0 - 33.0 pg [facility] MCHC 31.8(L) 32.0 - 36.0 g/dL [facility] Comment: For adults, a slight decrease in the calculated MCHC value (in the range of 30 to 32 g/dL) is most likely not clinically significant; however, it should be interpreted with caution in correlation with other red cell parameters and the patient's clinical condition. RDW 13.0 11.0 - 15.0 % [facility] PLATELET COUNT 209 140 - 400 Thousand/u L [facility] MPV 10.1 7.5 - 12.5 fL [facility] Blood BLOOD SPECIMEN / Unknown 06/24/2024 9:03 AM CDT 06/24/2024 9:03 AM CDT [facility] Chano Nunez MD HEMATOLOGY Final Result [employer] [facility] [address] [place] [address], [facility] [address] [place] [address] * COMP METABOLIC PANEL (06/24/2024 9:03 AM CDT) [facility] GLUCOSE 89 65 - 99 mg/dL [facility] Comment: Fasting reference interval UREA NITROGEN (BUN) 18 7 - 25 mg/dL [facility] CREATININE 0.74 0.60 - 1.00 mg/dL [facility] EGFR 85 > OR = 60 mL/min/1. 73m2 [facility] BUN/CREATININE RATIO SEE NOTE: 6 - 22 (calc) [facility] Comment: Not Reported: BUN and Creatinine are within reference range. SODIUM 141 135 - 146 mmol/L [facility] POTASSIUM 4.0 3.5 - 5.3 mmol/L [facility] CHLORIDE 104 98 - 110 mmol/L [facility] CARBON DIOXIDE 29 20 - 32 mmol/L [facility] CALCIUM 9.5 8.6 - 10.4 mg/dL [facility] PROTEIN, TOTAL 7.1 6.1 - 8.1 g/dL [facility] ALBUMIN 4.7 3.6 - 5.1 g/dL [facility] GLOBULIN 2.4 1.9 - 3.7 g/dL (calc) [facility] ALBUMIN/GLOBULIN RATIO 2.0 1.0 - 2.5 (calc) [facility] BILIRUBIN, TOTAL 0.5 0.2 - 1.2 mg/dL [facility] ALKALINE PHOSPHATASE 76 37 - 153 U/L [facility] AST 21 10 - 35 U/L [facility] ALT 15 6 - 29 U/L [facility] Blood BLOOD SPECIMEN / Unknown 06/24/2024 9:03 AM CDT 06/24/2024 9:03 AM CDT Janay Nunez MD CHEMISTRY Final Result [facility] [address] [place] [address], [facility] [address] [place] [address] * SCAN CORRESP-DIAGNOSTICS (06/10/2024 1:17 PM CDT) Narrative 06/10/2024 1:17 PM CDT Ordered by an unspecified provider. us Other Clinical Staff OTHER Final Resul t * SCAN CORRESP-IMAGING (06/10/2024 1:17 PM CDT) Only the most recent of2 resultswithin the time period is included. Anatomical Region Laterality Modality Other Narrative 06/10/2024 1:17 PM CDT Ordered by an unspecified provider. us Other Clinical Staff OTHER Final Resul t * (ABNORMAL) LIPOPROTEIN A (05/16/2024 8:32 AM TICKET SALES AGENT) LIPOPROTEIN (a) 192(H) nmol/L [facility] Comment: Reference Range <75 Risk: Optimal <75 Moderate 75-125 High >125 Cardiovascular event risk category cut points (optimal, moderate, high) are based on [employer] Moralez [facility] 2017;69:692-711. Blood BLOOD SPECIMEN / Unknown 05/16/2024 8:32 AM TICKET SALES AGENT 05/16/2024 8:32 AM TICKET SALES AGENT Kyra ANTHONY SEND OUTS Final R esult [facility] [employer] [facility] [address] [place] [address], [place] [phone] [facility] [address] [place] [address] * TSH (05/16/2024 8:32 AM TICKET SALES AGENT) TSH 2.00 0.40 - 4.50 mIU/L [facility] Blood BLOOD SPECIMEN / Unknown 05/16/2024 8:32 AM TICKET SALES AGENT 05/16/2024 8:32 AM TICKET SALES AGENT Kyra ANTHONY CHEMISTRY Final R esult [employer] [facility] [address] [place] [address], [place] [phone] [facility] [address] [place] [address] * XR SPINE CERVICAL 2 VIEWS FLEXION AND EXTENSION (05/06/2024 3:22 PM TICKET SALES AGENT) Anatomical Region Laterality Modality Spine, CERVICAL SPINE Digital [employer] diography 05/08/2024 4:43 AM TICKET SALES AGENT Impressions 05/08/2024 4:43 AM TICKET SALES AGENT 1. Severe degenerative disc disease at C5-C6 with severe loss of disc height. No change in 3 millimeters of posterior listhesis of C5 on C6 between flexion and extension. Dictated by Benedict Parisi MD @ 05/08/2024 4:43:26 AM (Electronically Signed) Narrative 05/08/2024 4:43 AM TICKET SALES AGENT For Patients: As a result of the Cures Act, medical imaging exams and procedure reports are released immediately into your electronic medical record. You may view this report before your referring provider. If you have questions, please contact your health care provider. HISTORY: Pain of cervical spine. TECHNIQUE: Lateral flexion and lateral extension radiographs of the cervical spine. COMPARISON: 12/27/2023. FINDINGS: Degenerative disc disease within the cervical spine. Severe loss of intervertebral disc height at C5-C6 with osteophyte formation. No acute fracture. No prevertebral soft tissue swelling. At C5-C6, no change in 3 millimeters of posterior listhesis of C5 on C6 between flexion and extension. At C3-C4, 1.5 millimeters of anterior listhesis of C3 on C4 in flexion compared to 1 millimeter with extension. Procedure Note Benedict Parisi MD - 05/08/2024 For Patients: As a result of the Cures Act, medical imagingexams and procedure reports are released immediately into your electronicmedical record. You may view this report before your referring provider.If you have questions, please contact your health care provider. HISTORY: Pain of cervical spine. TECHNIQUE: Lateral flexion and lateral extension radiographs of the cervical spine. COMPARISON: 12/27/2023. FINDINGS: Degenerative disc disease within the cervical spine. Severe loss ofintervertebral disc height at C5-C6 with osteophyte formation. No acutefracture. No prevertebral soft tissue swelling. At C5-C6, no change in 3 millimeters of posterior listhesis of C5 on [id number] flexion and extension. At C3-C4, 1.5 millimeters of anterior listhesis of C3 on C4 in flexioncompared to 1 millimeter with extension. IMPRESSION: 1. Severe degenerative disc disease at C5-C6 with severe loss of discheight. No change in 3 millimeters of posterior listhesis of C5 on [id number] flexion and extension. Dictated by Benedict Parisi MD @ 05/08/2024 4:43:26 AM (Electronically Signed) Jose Luis Bush MD GENERAL IMAGING Final Result * (ABNORMAL) VITAMIN D 25 (DEFICIENCY) (04/16/2024 12:03 PM TICKET SALES AGENT) VITAMIN D,25-OH,TOTAL,IA 21(L) 30 - 100 ng/mL [facility] Comment: Vitamin D Status 25-OH Vitamin D: Deficiency: <20 ng/mL Insufficiency: 20 - 29 ng/mL Optimal: > or = 30 ng/mL For 25-OH Vitamin D testing on patients on D2-supplementation and patients for whom quantitation of D2 and D3 fractions is required, the [facility]) 25-OH VIT D, (D2,D3), LC/MS/MS is recommended: order code [id number] (patients >2yrs). See Note 1 Note 1 For additional information, please refer to http://education.[employer]/faq/JAL548 (This link is being provided for informational/ educational purposes only.) Blood BLOOD SPECIMEN / Unknown 04/16/2024 12:03 PM TICKET SALES AGENT 04/16/2024 12:03 PM TICKET SALES AGENT Kyra ANTHONY SEND OUTS Final R esult [employer] [facility] [address] [place] [address], [facility] [address] [place] [address] * IRON PLUS IRON BINDING CAP (04/16/2024 12:03 PM TICKET SALES AGENT) IRON, TOTAL 72 45 - 160 mcg/dL [facility] IRON BINDING CAPACITY 364 250 - 450 mcg/dL (calc) [facility] % SATURATION 20 16 - 45 % (calc) [facility] Blood BLOOD SPECIMEN / Unknown 04/16/2024 12:03 PM TICKET SALES AGENT 04/16/2024 12:03 PM TICKET SALES AGENT Kyra ANTHONY CHEMISTRY Final R esult [employer] [facility] [address] [place] [address], [place] [phone] [facility] [address] [place] [place] [address] * HEMOGLOBIN (04/16/2024 12:03 PM TICKET SALES AGENT) [facility] HEMOGLOBIN 15.3 11.7 - 15.5 g/dL [facility] Blood BLOOD SPECIMEN / Unknown 04/16/2024 12:03 PM TICKET SALES AGENT 04/16/2024 12:03 PM TICKET SALES AGENT Kyra ANTHONY HEMATOLOGY Final R esult Performing Organization Address City/[facility]/ZIP Co de Phone Number [employer] [facility] [address] [place] [address], [facility] [address] [place] [address] * FERRITIN (04/16/2024 12:03 PM TICKET SALES AGENT) [facility] FERRITIN 67 16 - 288 ng/mL [facility] Blood BLOOD SPECIMEN / Unknown 04/16/2024 12:03 PM TICKET SALES AGENT 04/16/2024 12:03 PM TICKET SALES AGENT Kyra ANTHONY CHEMISTRY Final R esult [employer] [facility] [address] [place] [address], [place] [phone] [facility] [address] [facility] [place] [address] * BASIC METABOLIC PANEL (04/16/2024 12:03 PM TICKET SALES AGENT) Only the most recent of2 resultswithin the time period is included. [facility] GLUCOSE 92 65 - 99 mg/dL [facility] Comment: Fasting reference interval UREA NITROGEN (BUN) 16 7 - 25 mg/dL [facility] CREATININE 0.67 0.60 - 1.00 mg/dL [facility] EGFR 92 > OR = 60 mL/min/1. 73m2 [facility] BUN/CREATININE RATIO SEE NOTE: 6 - 22 (calc) [facility] Comment: Not Reported: BUN and Creatinine are within reference range. SODIUM 141 135 - 146 mmol/L [facility] POTASSIUM 4.8 3.5 - 5.3 mmol/L [facility] CHLORIDE 104 98 - 110 mmol/L [facility] CARBON DIOXIDE 28 20 - 32 mmol/L [facility] ELECTROLYTE BALANCE 9 7 - 17 mmol/L (calc) [facility] CALCIUM 9.6 8.6 - 10.4 mg/dL [facility] Blood BLOOD SPECIMEN / Unknown 04/16/2024 12:03 PM TICKET SALES AGENT 04/16/2024 12:03 PM TICKET SALES AGENT us Kyra ANTHONY CHEMISTRY Final R esult [employer] [facility] [address] [place] [address], [facility] [address] [place] [address] * XR MAMMO ALEENA BILAT SCREEN (10/09/2023 [...] care provider. XR MAMMO ALEENA BILAT SCREEN [[id number]] CLINICAL HISTORY: This is an asymptomatic 73 y.o. patient. INDICATION FOR EXAM: Mammogram Screening. TECHNIQUE: CC & MLO views were obtained. This study was evaluated with the assistance of Computer-Aided Detection. Breast Tomosynthesis was used in interpretation. COMPARISON FILM: Yes 12/08/21 [facility] FINDINGS: The breasts are heterogeneously dense, which may obscure small masses. There are no dominant masses, suspicious micro calcifications or areas of architectural distortion. Kyra ANTHONY MAMMO Final R esult * COLONOSCOPY SCREENING (10/10/2022 12:00 AM CDT) Andrea Devi MD GI PROCEDURE ORD Final Re sult * ANTI HCV [[id number]] (02/09/2016 10:00 AM TICKET SALES AGENT) HEPATITIS C ANTIBODY Non-Reacti ve Non-Reacti ve 02/09/2016 5:42 PM TICKET SALES AGENT [facility] Blood BLOOD SPECIMEN / Unknown Venipuncture / Unknown 02/09/2016 10:00 AM TICKET SALES AGENT 02/09/2016 10:01 AM TICKET SALES AGENT Narrative [facility] - 02/09/2016 5:42 PM TICKET SALES AGENT Antibodies to HCV not detected; does not exclude the possibility of exposure to HCV. Result [facility] Kyra ANTHONY SEND OUTS Final R esult [facility] [address] [place] [address], [place] from Last 3 Months or Most Recently Relevant to Health Maintenance Insurance [employer] [place] [place] BLUE HB ONLY MEDICARE PART B HB ONLY [place] BLUE MR PB ONLY MEDICARE PART A HB ONLY [facility] [employer] Member Subscriber Plan / Payer (Ef fective 2009-Present) Name:Miya Restrepo Relation to Subscriber:Self Name:Miya Restrepo Payer ID:Not on file Group ID:Not on file Type:Not on file [id number] Address: [address] [facility] [id number] [place] [address] Advance Directives * Full Code (Latest Code [...] 4:20 AM 03/22/2010 1:40 PM Care Teams Physical Therapist Relationship Specialty Start Date End Date Kyra Perera PA [address] [place] [address] PCP - General 06/16/08 Genaro Leonard MD [address] [facility] [address] [place] [address] Cardiology - Electrophysiology 05/30/22 Janay Nunez MD [address] [facility] [place] [address] Cardiology - Interventional 09/21/22 Carolyn Pisano PA [address] [facility] [place] [address] Physician Supervisor Electric Motor Testing 09/21/22 Keo Escobar MD [address] [place] [address] Sports Medicine - Family Medicine 09/21/22
--- OUTSIDE RECORDS SUMMARY | 2024-06-27 10:22 | XMS_ITS | Encounter Summary ---
Author Organization [place] Address [address] [place] [address]. [place] [address] Care Team Providers Care Doughnut Batter Mixer Name Role Phone GwenPramod farahflavio Bell Primary Care Provider Angel Hollins MD Unavailable Petra Dorado Unavailable [phone] Angel Hollins MD Unavailable Yves Ballard MD Unavailable + [phone] Encounter Details Date Type Department Care Team (Late st Contact Info) Description 02/21/2024 [facility] [address] [place] [address] Angel Hollins MD [address] [place] [address] [id number] [place], [place] [id number] Social History Tobacco Use Types Packs/Day Years [...] on file Legal 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 [place] [address] Yves Ballard MD [address] [place] [address] documented as of this encounter Visit Diagnoses Not on filedocumented in this encounter Care Teams Doughnut Batter Mixer Relationship Specialty Start Date End Date Kyra Perera [address] [place] [address] PCP - General Physician System Safety Engineer 03/31/22 Angel Hollins MD [address] [place] [address] Neurology 07/20/23 Petra Dorado PA [facility] [address] [place] [address] Physician System Safety Engineer Physical Medicine and Rehabilitation 07/20/23 Angel Hollins MD [address] [address] Assigned Neuroscience Provider 08/03/23 Yves Ballard MD [address] [place] [address] Assigned Heart and Vascular Provider 12/04/23 documented as of this encounter
--- OUTSIDE RECORDS SUMMARY | 2024-06-27 10:22 | XMS_ITS | Encounter Summary ---
Author Organization [place] Address [address] [place] [address] Care Team Providers Care Parts And Service Manager Name Role Phone Kyra Perera Primary Care Provider Angel Hollins MD Unavailable [phone] Petra Dorado Unavailable [phone] Angel Hollins MD Unavailable Yves Ballard MD Unavailable + [phone] Reason for Visit * Reason Onset Date Comments Patient Request 10/18/2023 Encounter Details Date Type Department Care Team (Late st Contact Info) Description 10/18/2023 [facility] Medical Advice [facility] [address] [place] [address] Angel Hollins MD [address] [place] [address] [id number] [place] [address] Patient Request Social History Tobacco [...] on file 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 YES 10/18/2023, 12:45 PM documented in this encounter Plan of Treatment Upcoming Encounters Date Type Department Care Team (Late st Contact Info) Description 08/13/2024 4:00 PM CDT Virtual Visit [facility] [place] [address] [place] [phone] Yves Ballard MD [address] [place] [address] documented as of this encounter Visit Diagnoses Not on filedocumented in this encounter Care Teams Parts And Service Manager Relationship Specialty Start Date End Date Kyra Perera [address] [place] [address] PCP - General Physician Clean Rice Broker 03/31/22 Angel Hollins MD [address] [place] [address] [id number] [place] [address] Neurology 07/20/23 Petra Dorado PA [address] [place] [address] Physician Clean Rice Broker Physical Medicine and Rehabilitation 07/20/23 Angel Hollins MD [address] [id number] [place], [place] [address] Assigned Neuroscience Provider 08/03/23 Yves Ballard MD [address] [place], [place] [address] Assigned Heart and Vascular Provider 12/04/23 documented as of this encounter
--- OUTSIDE RECORDS SUMMARY | 2024-06-27 10:22 | XMS_ITS | Encounter Summary ---
Author Organization [facility] Address [address] [place] [address] Care Team Providers Care Hand Painter Name Role Phone Kyra Perera Primary Care Provider [phone] Angel Hollins MD Unavailable Petra Dorado Unavailable [phone] Angel Hollins MD Unavailable Yves Ballard MD Unavailable + [phone] Reason for Visit * Rehab Therapy Integrated Services (Routine) - Closed Specialty Diagnoses / Procedures Referred By Scott muniz Referred To Contact Diagnoses Scot DAUGHERTY PF RN sent order Procedures PT NEURO EVAL [address] [address] Phone: tel: Referral ID Status Reason Start Date Expiration Date Visits Re quested Visits Authorized [id number] Closed 07/18/2023 03/12/2024 365 365 Encounter Details Date Type Department Care Team (Latest Contact Info) Description 01/22/2024 1:30 PM BUSINESS CONTINUITY MANAGEMENT DIRECTOR Therapy Visit [address] [phone] [place] [address] Marquita Trivedi PT Cerebrovascular accident (CVA) due to thrombosis [...] on file Legal 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 Discharge Plan: Patient to continue home program. documented in this encounter Plan of Treatment Upcoming Encounters Date Type Department Care Team (Late st Contact Info) Description 08/13/2024 4:00 PM CDT Virtual Visit [facility] [place] [address] [place] [phone] Yves Ballard MD [address] [place] [address] documented as of this encounter Visit Diagnoses Diagnosis Cerebrovascular accident (CVA) due to thrombosis of left middle cerebral artery (H)- Primary documented in this encounter Care Teams Hand Painter Relationship Specialty Start Date End Date Kyra Perera [address] [place] [address] PCP - General Physician Leather Parts Matcher 03/31/22 Angel Hollins MD [address] [place] [address] [id number] [place], [place] [address] Neurology 07/20/23 Petra Dorado PA [address] [place] [address] Physician Leather Parts Matcher Physical Medicine and Rehabilitation 07/20/23 Angel Hollins MD [address] [id number] [place] [address] Assigned Neuroscience Provider 08/03/23 Yves Ballard MD [address] [place] [address] Assigned Heart and Vascular Provider 12/04/23 documented as of this encounter
--- OUTSIDE RECORDS SUMMARY | 2024-06-27 10:22 | XMS_ITS | Encounter Summary ---
Author Organization [place] Address [address] [place] [address] Care Team Providers Care Cotton Feeder Name Role Phone Trever Kyra Bell Primary Care Provider [phone] Angel Hollins MD Unavailable Petra Dorado Unavailable [phone] Angel Hollins MD Unavailable Yves Ballard MD Unavailable +[phone] Reason for Referral * Consultation (Routine: Next available opening) - Pending Review Specialty Diagnoses / Procedures Referred By Contmichelle t Referred To Contact Diagnoses Hyperlipidemia LDL goal <70 Statin intolerance Elevated lipoprotein(a) Atherosclerosis of abdominal aorta Yves Ballard MD [address] [address] Phone: tel: fax: Referral ID Status Reason Start Date Expiration Date V isits Requested Visits Authorized [id number] Pending Review 06/17/2024 06/17/2025 1 1 Question Answer New or return visit? Return Appt Length 30 Min To be seen by Dr. Yves Ballard Comments Virtual visit Please schedule this in 2 months Appt note: Follow up to 06/13/24 Reason for Visit * Reason Onset Date Comments Appointment 06/17/2024 Encounter Details Date Type Department Care Team (Late st Contact Info) Description 06/17/2024 Telephone [facility] [place] 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 * Telephone Encounter - Toshia Anaya RN - 06/17/2024 11:20 AM CDT Routing to scheduling to coordinate the following: Virtual visit Please schedule this in 2 months Appt note: Follow up to 06/13/24 Toshia RIVERA RN [facility] Office: [phone] documented in this encounter Plan of Treatment Upcoming Encounters Date Type Department Care Team (Late st Contact Info) Description 08/13/2024 4:00 PM CDT Virtual Visit [facility] [place] 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 Atherosclerosis of abdominal aorta Atherosclerosis of aorta documented in this encounter Care Teams Cotton Feeder Relationship Specialty Start Date End Date GwenKyra farah [address] [place] [address] PCP - General Physician Senior Application Programmer 03/31/22 Angel Hollins MD [address] [place] [address] Neurology 07/20/23 Petra Dorado PA [address] [place] [address] Physician Senior Application Programmer Physical Medicine and Rehabilitation 07/20/23 Angel Hollins MD [address] [address] Assigned Neuroscience Provider 08/03/23 Yves Ballard MD [address] [place] [address] Assigned Heart and Vascular Provider 12/04/23 documented as of this encounter
--- NOTE | 2024-06-27 11:10 | CRLHL7_ITS ---
For Patients: As a result of the Century Cures Act, medical imaging exams and procedure reports are released immediately into your electronic medical record. You may view this report before your referring provider. If you have questions, please contact your health care provider. INDICATION: Chest pain/shortness of breath 80. TECHNIQUE: Chest 2 views. COMPARISON: None. FINDINGS/ IMPRESSION: No focal consolidation, effusion or pneumothorax. Cardiac size is within normal limit without pulmonary edema. No acute osseous abnormality. Dictated by Piyush Shaffer MD @ 06/27/2024 12:37:43 PM (Electronically Signed)
--- NOTE | 2024-06-27 11:14 | ED.GENADULT ---
HPI - General Adult General Date Seen: 06/27/24 Chief complaint: Hypertension Stated complaint: high BP-had a stroke about a year ago, having symp Time Seen by Provider: 06/27/24 10:55 Source: patient Mode of arrival: ambulatory Limitations: no limitations History of Present Illness HPI narrative: Patient is a 74-year-old female presenting to emergency department for concern of allergic reaction and hypertension. 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 She has been on several different blood pressure medications and was recently switched to metoprolol due to allergies from other medications. She states she woke up today feeling dizzy, mild chest pain, shortness of breath and tingling sensation in her arms and face. She is also having swelling to her face she states. she states she has had a previous stroke and she was concerned she was having another stroke. States previously from take Benadryl and will sometimes help with symptoms but she states did not help today. Symptoms have been going on since 03:00. She feels like the chest pain and shortness of breath have improved another relatively mild she states. States she was having a squeezing sensation in her chest. The tingling sensation to her arms inpatient not improved. She has taking a home Xanax without much improvement. Denies abdominal pain. Does state she had some diarrhea yesterday she thinks was related to the statin she was recently taken off of. Has had some mild nausea but no abdominal pain. She states she felt like she was going to pass out all morning. Has not noticed any fevers. Related Data Home Medications ?Medication ?Instructions ?Recorded ?Confirmed alprazolam 0.25 mg tablet 0.125 mg PO TID PRN 10/03/21 06/27/24 cholecalciferol (vitamin D3) 50 50 mcg PO DAILY 10/03/21 06/27/24 mcg (2,000 unit) tablet fluticasone propionate 50 1 - 2 spray intranasal DAILY PRN 10/03/21 06/27/24 mcg/actuation nasal spray,suspension nitroglycerin 0.4 mg sublingual 0.4 mg sublingual Q5M PRN 10/03/21 06/27/24 tablet aspirin 81 mg capsule 81 mg PO DAILY 02/15/22 06/27/24 metoprolol tartrate 25 mg tablet 6.25 mg PO DAILY 06/30/23 06/27/24 telmisartan 20 mg tablet 10 mg PO HS 06/30/23 06/27/24 diazepam 5 mg tablet 2.5 - 5 mg PO Q6H PRN anxiety 07/01/23 06/27/24 famotidine 10 mg tablet 10 mg PO DAILY 07/01/23 06/27/24 furosemide 20 mg tablet 20 mg PO Q OTHER DAY PRN 07/01/23 06/27/24 meclizine 25 mg tablet 25 mg PO TID PRN 07/01/23 06/27/24 Previous Rx's ?Medication ?Instructions ?Recorded prednisone 20 mg tablet 40 mg (2 x 20 mg) PO DAILY #8 tabs 06/27/24 Allergies Allergy/AdvReac Type Severity Reaction Status Date / Time Penicillins Allergy Severe Throat Verified 06/27/24 10:29 Closing amlodipine Allergy Intermediate Palpitation Verified 06/27/24 10:29 s atorvastatin Allergy Intermediate Myalgia Verified 06/27/24 10:29 chlorthalidone Allergy Intermediate Dyspnea Verified 06/27/24 10:29 clonidine Allergy Intermediate Dyspnea Verified 06/27/24 10:29 diltiazem Allergy Intermediate Anxiety Verified 06/27/24 10:29 doxazosin Allergy Intermediate Bleeding Verified 06/27/24 10:29 hydralazine Allergy Intermediate Tachycardia Verified 06/27/24 10:29 hydrochlorothiazide Allergy Intermediate Dyspnea Verified 06/27/24 10:29 labetalol Allergy Intermediate Dyspnea Verified 06/27/24 10:29 lisinopril Allergy Intermediate Chest Pain Verified 06/27/24 10:29 lobster Allergy Intermediate Verified 06/27/24 10:29 lorazepam (From Ativan) Allergy Intermediate Depression Verified 06/27/24 10:29 losartan Allergy Intermediate Dyspnea Verified 06/27/24 10:29 methyldopa Allergy Intermediate Rash Verified 06/27/24 10:29 metoprolol Allergy Intermediate Dyspnea Verified 06/27/24 10:29 metronidazole (From Flagyl) Allergy Intermediate Hives Verified 06/27/24 10:29 milk Allergy Intermediate Verified 06/27/24 10:29 rosuvastatin Allergy Intermediate Myalgia Verified 06/27/24 10:29 verapamil Allergy Intermediate Dyspnea Verified 06/27/24 10:29 morphine Allergy Mild Hives Verified 06/27/24 10:29 Sulfa (Sulfonamide Allergy Mild Hives Verified 06/27/24 10:29 Antibiotics) lactose Allergy Unknown Verified 06/27/24 10:29 latex Allergy Unknown Verified 06/27/24 10:29 hydrocodone AdvReac Intermediate Nausea/Vomi Verified 06/27/24 10:29 ting olmesartan AdvReac Intermediate Verified 06/27/24 10:29 Review of Systems Status of ROS: Reports: 10 or more systems reviewed and unremarkable except as noted in History and below PFSH PFS Medical History Hypertension ?I10 - Essential (primary) hypertension (ICD-10) Paroxysmal SVT (supraventricular tachycardia) (04/07/21) ?I47.10 - Supraventricular tachycardia, unspecified (ICD-10) 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) ?D89.40 - Mast cell activation, unspecified (ICD-10) LVH (left ventricular hypertrophy) (01/26/21) ?I51.7 - Cardiomegaly (ICD-10) TBI (traumatic brain injury) ?S06.9XAA - Unspecified intracranial injury with loss of consciousness status unknown, initial encounter (ICD-10) Frequent PVCs ?I49.3 - Ventricular premature depolarization (ICD-10) Anxiety ?F41.9 - Anxiety disorder, unspecified (ICD-10) Statin intolerance ?Z78.9 - Other specified health status (ICD-10) Hypertension with intolerance to multiple antihypertensive drugs ?I10 - Essential (primary) hypertension (ICD-10) Viral infection ?B34.9 - Viral infection, unspecified (ICD-10) Upper back pain ?M54.9 - Dorsalgia, unspecified (ICD-10) Tinnitus ?H93.19 - Tinnitus, unspecified ear (ICD-10) Obstructive sleep apnea treated with continuous positive airway pressure (CPAP) ?G47.33 - Obstructive sleep apnea (adult) (pediatric) (ICD-10) Headache ?R51.9 - Headache, unspecified (ICD-10) Excessive daytime sleepiness ?G47.19 - Other hypersomnia (ICD-10) Encounter for follow-up ?Z09 - Encounter for follow-up examination after completed treatment for conditions other than malignant neoplasm (ICD-10) Disorder of paranasal sinus ?J34.9 - Unspecified disorder of nose and nasal sinuses (ICD-10) Difficulty sleeping ?G47.9 - Sleep disorder, unspecified (ICD-10) Chest pain ?R07.9 - Chest pain, unspecified (ICD-10) Abdominal pain ?R10.9 - Unspecified abdominal pain (ICD-10) Surgical History Hx of removal of ovary H/O section ?Z98.891 - History of uterine scar from previous surgery (ICD-10) H/O resection of rib ?Z98.890 - Other specified postprocedural states (ICD-10) History of tonsillectomy ?Z90.89 - Acquired absence of other organs (ICD-10) Hx of cholecystectomy ?Z90.49 - Acquired absence of other specified parts of digestive tract (ICD-10) History of appendectomy ?Z90.49 - Acquired absence of other specified parts of digestive tract (ICD-10) Family History Brother Prostate cancer Heart disease Sister Lung cancer Social History Narrative: She lives in [place]. Accompanied today by her son David. She does not smoke. She does not drink alcohol. What is your current living situation?: I presently have a place to live Problems where you live: no known problems Problems where you live details: none In the past 12 months, utilities in danger of being shut off: no In past 12 months, lack of transportation kept you from medical appts, meetings, work, or getting things needed for daily living: no In the past 12 mos, have been you worried that your food would run out before you had money to buy more?: never true In the past 12 mos, the food you bought just didn't last and you didn't have money to buy more?: never true Highest level of school completed/degree received: some college, no degree Smoking Status: Never smoker Do you use any of these nicotine containing products: None Second hand tobacco smoke exposure: No How often do you have a drink containing alcohol: never AUDIT-C Alcohol total score: 0 Non-prescribed substance use: denies use Caffeine: No How often does anyone, including family, friends and others, physically hurt you: never How often does anyone, including family, friends and others, insult or talk down to you: never How often does anyone, including family, friends and others, threaten you with harm: never How often does anyone, including family, friends and others, scream or curse at you: never service: No Exam Narrative: Exam Narrative: Const: Well-nourished, Well-developed, in mild distress Eyes: PERRL, no conjunctival injection, and symmetrical lids HENT: Atraumatic external nose and ears. Moist mucous membranes. Neck: Symmetric, trachea midline, No thyromegaly. CVS: RRR, No murmurs or gallops. Peripheral pulses 2+ and equal in all extremities RESP: Unlabored respiratory effort. Clear to auscultation bilaterally. GI: Nontender/Nondistended, No rebound or guarding. MSK:Extremities w/o deformity, Normal Active ROM Skin: Warm, Dry. No rashes or lesions. No obvious swelling or hives seen Neuro: Normal Muscle tone, No focal neurological deficits. Psych: Awake, Alert, & Oriented x3. Appropriate mood and affect. Const: Vital Signs, click to edit/add: Vital Signs - 24 hr 06/27/24 10:22 06/27/24 12:02 06/27/24 12:03 Temperature 98.5 F Pulse Rate 69 66 Pulse Rate [Right Pulse Oximeter] 78 Respiratory Rate 18 12 18 Blood Pressure 205/97 H Blood Pressure [Le ft Upper Arm] 219/99 H Pulse Oximetry 97 96 95 Oxygen Delivery Me thod Room Air 06/27/24 12:15 06/27/24 12:45 06/27/24 13:00 Temperature Pulse Rate 69 63 71 Pulse Rate [Right Pulse Oximeter] Respiratory Rate 18 Blood Pressure Blood Pressure [Le ft Upper Arm] Pulse Oximetry 95 95 95 Oxygen Delivery Me thod 06/27/24 13:02 06/27/24 13:02 06/27/24 13:02 Temperature Pulse Rate 66 66 66 Pulse Rate [Right Pulse Oximeter] Respiratory Rate 18 18 18 Blood Pressure 210/87 H 210/87 H 210/87 H Blood Pressure [Le ft Upper Arm] Pulse Oximetry 95 95 95 Oxygen Delivery Me thod 06/27/24 13:02 06/27/24 13:15 06/27/24 13:18 Temperature Pulse Rate 66 68 Pulse Rate [Right Pulse Oximeter] Respiratory Rate 18 16 Blood Pressure 210/87 H 204/84 H Blood Pressure [Le ft Upper Arm] Pulse Oximetry 95 95 Oxygen Delivery Me thod Course Vital Signs Vital signs: Initial Vital Signs Temperature 98.5 F 06/27/24 10:22 Temperature Source Temporal Artery Scan 06/27/24 10:22 Pulse Rate 78 06/27/24 10:22 Pulse Rhythm Regular 06/27/24 10:22 Pulse Strength 3+ Normal 06/27/24 10:22 Respiratory Rate 18 06/27/24 10:22 Blood Pressure 219/99 H 06/27/24 10:22 Blood Pressure Mean 139 H 06/27/24 10:22 Blood Pressure Position Sitting 06/27/24 10:22 Pulse Oximetry 97 06/27/24 10:22 Oxygen Delivery Method Room Air 06/27/24 10:22 Vital Signs Temperature 98.5 F 06/27/24 10:22 Pulse Rate 78 06/27/24 10:22 Respiratory Rate 18 06/27/24 10:22 Blood Pressure 219/99 H 06/27/24 10:22 Pulse Oximetry 97 06/27/24 10:22 Oxygen Delivery Method Room Air 06/27/24 10:22 Temperature 98.5 F 06/27/24 10:22 Pulse Rate 68 06/27/24 13:15 Respiratory Rate 16 06/27/24 13:15 Blood Pressure 204/84 H 06/27/24 13:18 Pulse Oximetry 95 06/27/24 13:15 Oxygen Delivery Method Room Air 06/27/24 10:22 Medications Administered Medications: Discontinued Medications Generic Name Dose Route Start Last Admin Trade Name Abdirahman PRN Reason Stop Dose Admin Diphenhydramine HCl 25 mg 06/27/24 11:10 06/27/24 11:39 Diphenhydramine 50 Mg/Ml Inj IVP 06/27/24 11:11 25 mg ONCE ONE Administration Famotidine 20 mg 06/27/24 11:10 06/27/24 11:39 Famotidine 10 Mg/Ml Inj IVP 06/27/24 11:11 20 mg ONCE ONE Administration Lactated Ringer's 1,000 mls @ 1,000 mls/hr 06/27/24 11:10 06/27/24 12:38 Lactated Ringers 1000 Ml IV 06/27/24 12:09 Infused .Q1H ONE Infusion Metoclopramide HCl 10 mg 06/27/24 11:10 06/27/24 11:30 Metoclopramide Hcl 5 Mg/Ml Inj IVP 06/27/24 11:11 Not Given ONCE ONE Prednisone 40 mg 06/27/24 11:19 06/27/24 11:30 Prednisone 20 Mg Tablet PO 06/27/24 11:20 40 mg ONCE ONE Administration Medical Decision Making MDM Narrative Medical decision making narrative: patient is a 74-year-old female presenting to the emergency department for concerns of an allergic reaction. She is also having multiple other complaints. Is not showing signs of anaphylaxis at this time. I do not see any obvious swelling or hives to indicate an allergic reaction. She does have a mild headache. A not believe imaging is necessary at this time they will treat her with a migraine cocktail including Benadryl, Reglan, in L of fluids. Also give her some Pepcid and prednisone for possible allergic reaction. She did have some chest pain shortness of breath that is improving. This could be related to allergic reaction, anxiety but do want rule out coronary disease, pneumonia, normal sinus, electrolyte abnormalities, viral syndrome. I concern for PE is relatively low at this time the symptoms are improving on he she is actually hypertensive and not hypotensive. also Does have low concern for aortic aneurysm or aortic dissection. His will do a CBC, BMP, is COVID/flu/ RSV, magnesium, troponin, urinalysis, EKG. patient's lab work shows no concerning abnormalities. EKG shows no concerning findings. Troponin is within normal limits. Considering length of symptoms I do not believe repeat troponin is necessary. Chest x-ray reviewed by myself and the radiologist shows no acute concerning abnormalities. At this time she states her facial swelling has improved. I do not notice much difference. She still states she has a buzzing sensation in her face and head. Abuse and this may be related to anxiety. I did offer her her home Xanax but she states since I am getting ready to discharge her she feels comfortable just taking it at home. She is still hypertensive at 04/16/1983. The I cannot say for certain if she has a past off restarting her metoprolol or holding off until her procedure next week for her blood pressure. Informed her that either option he seems reasonable at this time. She states she understands. She will be discharged Lab Data Labs: Lab Results 06/27/24 06/27/24 Range/Units 11:41 11:48 WBC 4.93 (4.50-11.00) K/uL RBC 5.39 H (4.00-5.20) m/uL Hgb 15.7 (12.0-16.0) gm/dL Hct 48.1 (33.0-51.0) % MCV 89 (80-100) fL MCH 29 (26-34) pg MCHC 33 (32-36) gm/dL RDW Coeff of Jaylen 12.8 (11.5-15.5) % Plt Count 193 (140-440) K/uL Neut % (Auto) 57.5 (42.0-72.0) % Lymph % (Auto) 29.8 (20-44) % [place] % (Auto) 9.9 (0.0-11.0) % Eos % (Auto) 2.2 (0.0-7.0) % Baso % (Auto) 0.6 (0.0-3.0) % Neut # (Auto) 2.83 (1.7-7.0) K/uL Lymph # (Auto) 1.47 (0.90-2.90) K/uL [place] # (Auto) 0.50 (0.00-0.90) K/UL Eos # (Auto) 0.11 (0.00-0.50) K/uL Baso # (Auto) 0.03 (0.00-0.30) K/uL Abs Immat Gran (auto) 0.00 (0.00-0.30) K/uL Imm/Tot Granulo (auto) 0.0 % Sodium 141 (135-149) mmol/L Potassium 4.1 (3.6-5.1) mmol/L Chloride 104 (96-114) mmol/L Carbon Dioxide 29 (20-32) mmol/L Anion Gap 8 (7-15) mEq/L BUN 13 (7-30) mg/dL Creatinine 0.7 (0.5-1.5) mg/dL Estimated Creat Clear 39.04 Estimated GFR 91 ml/min Glucose 98 (60-115) mg/dL Calcium 9.5 (8.4-10.6) mg/dL Magnesium 1.8 (1.5-2.6) mg/dL Troponin I < 0.01 (0.01-0.04) ng/mL Urine Color Yellow (Yellow) Urine Appearance Clear (Clear) Urine pH 6.0 (5.0-8.5) Ur Specific [place] 1.025 (1.000-1.030) Urine Protein Negative (Negative) Urine Glucose (UA) Negative (Negative) Urine Ketones Negative (Negative) Urine Blood Negative (Negative) Urine Nitrite Negative (Negative) Urine Bilirubin Negative (Negative) Urine Urobilinogen 0.2 (0.2-1.0) Ur Leukocyte Esterase Negative (Negative) Urine RBC 0-2 (0-2) Urine WBC 0-2 (0-5) Ur Squamous Epith Cells Few (None-Few) Urine Bacteria None (None) SARS-CoV-2 (PCR) Negative SARS-CoV-2 (Negative) Influenza Type A (PCR) Negative PCR FLU A (Negative) Influenza Type B (PCR) Negative PCR FLU B (Negative) RSV (PCR) Negative PCR RSV (Negative) Imaging Data Chest x-ray: Attestation: I have reviewed the pertinent imaging results. Radiologist's impression: No focal consolidation, effusion or pneumothorax. Cardiac size is within normal limit without pulmonary edema. No acute osseous abnormality. Dictated by Piyush Shaffer MD @ 06/27/2024 12:37:43 PM ECG Data Attestation: I personally reviewed and interpreted this ECG as follows: Prior ECG tracings: not available for review Interpretation: EKG shows normal sinus rhythm with the rate of 73 beats per minute, normal intervals, normal axis, no ST or T-wave abnormalities. PVC is seen. Appears similar previous EKG on file Discharge Plan Discharge Clinical Impression: Allergic reaction Qualifiers: Encounter type: initial encounter Qualified Code(s): T78.40XA - Allergy, unspecified, initial encounter Patient Disposition: Home, Self-Care Condition: Stable Instructions: General Allergic Reaction (ED) Additional Instructions: I cannot say for sure if he should restart your blood pressure medication or not. It is unlikely that the blood pressure will cause an acute issue next week prior to your surgery. Start taking the steroids daily tomorrow as directed. Recommend calling your primary care provider today to inform them of what occurred. Prescriptions: New prednisone 20 mg tablet 40 mg PO DAILY Qty: 8 0RF No Action aspirin 81 mg capsule 81 mg PO DAILY alprazolam 0.25 mg tablet 0.125 mg PO TID PRN nitroglycerin 0.4 mg tablet, sublingual 0.4 mg sublingual Q5M PRN Patient Comments: Every 5 Minutes X 3 as needed fluticasone propionate 50 mcg/actuation spray,suspension 1 - 2 spray INTRANASAL DAILY PRN cholecalciferol (vitamin D3) 50 mcg (2,000 unit) tablet 50 mcg PO DAILY telmisartan 20 mg tablet 10 mg PO HS metoprolol tartrate 25 mg tablet 6.25 mg PO DAILY furosemide 20 mg tablet 20 mg PO Q OTHER DAY PRN famotidine 10 mg tablet 10 mg PO DAILY diazepam 5 mg tablet 2.5 - 5 mg PO Q6H PRN (Reason: anxiety) meclizine 25 mg tablet 25 mg PO TID PRN Follow Up/Referrals: Kyra Perera PA-C [Primary Care Provider] - Stand Alone Forms: [facility] Info Instructions
[2024-06-27] MEDS: predniSONE 20 MG TABLET 40 MG PO (11:30)
--- OUTSIDE RECORDS SUMMARY | 2024-06-27 11:37 | XMS_ITS | Clinical Summary ---
Author Organization [place] Address [address] [place] [address] Care Team Providers Care Electronics Manufacturer Name Role Phone Gwensofi Kyra Bell Primary Care Provider [phone] Angel Hollins MD Unavailable Petra Dorado Unavailable [phone] Angel Hollins MD Unavailable Yves Ballard MD Unavailable [phone] Allergies Active Allergy Reactions Criticality Noted Date [...] Type Department Care Team Description 06/17/2024 Telephone [facility] [place] [address] [place] [phone] Yves Ballard MD Appointment 06/13/2024 11:30 AM CDT Office Visit [facility] [place] 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 [place] [phone] Yves Ballard MD Medication Question 05/29/2024 Telephone [facility] [place] [address] [place] [phone] Yves Ballard MD Appointment from Last 3 [...] on file Legal Sex Female 3:34 AM WATER RESOURCE AGENT Gender Identity Not on file Sexual Orientation Not on file Last Filed Vital Signs Vital Sign Reading Time Taken Comments Blood Pressure 172/93 06/13/2024 11:33 AM CDT Pulse 83 06/13/2024 11:33 AM CDT Temperature 36.8 C (98.3 F) 01/28/2024 10:37 AM WATER RESOURCE AGENT Respiratory Rate 20 01/28/2024 10:37 AM WATER RESOURCE AGENT Oxygen Saturation 97% 06/13/2024 11:33 AM CDT Inhaled Oxygen Concentration - - Weight 62.6 kg (138 lb) 06/13/2024 11:33 AM CDT Height 157.5 cm (5' 2) 01/27/2024 10:05 PM WATER RESOURCE AGENT Body Mass Index 25.24 01/27/2024 10:05 PM WATER RESOURCE AGENT Plan of Treatment Upcoming Encounters Date Type Department Care Team (Late st Contact Info) Description 08/13/2024 4:00 PM CDT Virtual Visit [facility] [place] [address] [place] [phone] Yves Ballard MD [address] [place] [address] Health Maintenance Due Date Last Done Comments [...] DIRECT LDL PANEL Routine 02/20/2024 8:29 AM WATER RESOURCE AGENT Hyperlipidemia LDL goal <70 COMPREHENSIVE METABOLIC PANEL Routine 02/20/2024 8:29 AM WATER RESOURCE AGENT Hyperlipidemia LDL goal <70 ROUTINE UA WITH MICROSCOPIC REFLEX TO CULTURE STAT 09/27/2023 8:59 PM CDT from Last 3 Months or Most Recently Relevant to Health Maintenance Results * (ABNORMAL) Lipid panel reflex to direct LDL Fasting (02/20/2024 8:29 AM WATER RESOURCE AGENT) Cholesterol 237(H) <200 mg/dL 02/20/2024 4:11 PM WATER RESOURCE AGENT [facility] Triglycerides 208(H) <150 mg/dL 02/20/2024 4:11 PM WATER RESOURCE AGENT [facility] Direct Measure HDL 47(L) >=50 mg/dL 02/20/2024 4:11 PM WATER RESOURCE AGENT [facility] LDL Cholesterol Calculated 148(H) <100 mg/dL 02/20/2024 4:11 PM WATER RESOURCE AGENT [facility] Non HDL Cholesterol 190(H) <130 mg/dL 02/20/2024 4:11 PM WATER RESOURCE AGENT [facility] Patient Fasting > 8hrs? Yes 02/20/2024 4:11 PM WATER RESOURCE AGENT [facility] Blood BLOOD SPECIMEN / Unknown Venipuncture / Unknown 02/20/2024 8:29 AM WATER RESOURCE AGENT 02/20/2024 8:29 AM WATER RESOURCE AGENT Narrative [facility] - 02/20/2024 4:11 PM WATER RESOURCE AGENT Cholesterol Desirable: < 200 mg/dL Borderline High: [...] BLOOD ORDERABL ES Final Result [facility] [place] [facility] [address] [facility], [address] [place] [address], [facility] * (ABNORMAL) Comprehensive metabolic panel (02/20/2024 8:29 AM WATER RESOURCE AGENT) Sodium 142 135 - 145 mmol/L 02/20/2024 4:11 PM WATER RESOURCE AGENT [facility] Potassium 4.5 3.4 - 5.3 mmol/L 02/20/2024 4:11 PM WATER RESOURCE AGENT [facility] Carbon Dioxide (CO2) 26 22 - 29 mmol/L 02/20/2024 4:11 PM WATER RESOURCE AGENT [facility] Anion Gap 11 7 - 15 mmol/L 02/20/2024 4:11 PM WATER RESOURCE AGENT [facility] Urea Nitrogen 16.2 8.0 - 23.0 mg/dL 02/20/2024 4:11 PM WATER RESOURCE AGENT [facility] Creatinine 0.69 0.51 - 0.95 mg/dL 02/20/2024 4:11 PM WATER RESOURCE AGENT [facility] GFR Estimate >90 >60 mL/min/1.7 3m2 02/20/2024 4:11 PM WATER RESOURCE AGENT [facility] Comment:eGFR calculated 2020 CKD-EPI equation. Calcium 9.8 8.8 - 10.4 mg/dL 02/20/2024 4:11 PM WATER RESOURCE AGENT [facility] Comment:Reference intervals for this test were updated on 09/26/2023 to reflect our healthy population more accurately. There may be differences in the flagging of prior results with similar values performed with this method. Those prior results can be interpreted in the context of the updated reference intervals. Chloride 105 98 - 107 mmol/L 02/20/2024 4:11 PM WATER RESOURCE AGENT [facility] Glucose 103(H) 70 - 99 mg/dL 02/20/2024 4:11 PM WATER RESOURCE AGENT [facility] Alkaline Phosphatase 81 40 - 150 U/L 02/20/2024 4:11 PM WATER RESOURCE AGENT [facility] AST 26 0 - 45 U/L 02/20/2024 4:11 PM WATER RESOURCE AGENT [facility] ALT 23 0 - 50 U/L 02/20/2024 4:11 PM WATER RESOURCE AGENT [facility] Protein Total 7.2 6.4 - 8.3 g/dL 02/20/2024 4:11 PM WATER RESOURCE AGENT [facility] Albumin 4.4 3.5 - 5.2 g/dL 02/20/2024 4:11 PM WATER RESOURCE AGENT [facility] Bilirubin Total 0.4 <=1.2 mg/dL 02/20/2024 4:11 PM WATER RESOURCE AGENT [facility] Patient Fasting > 8hrs? Yes 02/20/2024 4:11 PM WATER RESOURCE AGENT [facility] Blood BLOOD SPECIMEN / Unknown Venipuncture / Unknown 02/20/2024 8:29 AM WATER RESOURCE AGENT 02/20/2024 8:29 AM WATER RESOURCE AGENT Yves Ballard MD LAB - BLOOD ORDERABL ES Final Result [facility] [place] [facility] [address] [facility], [address] [place] [address] * (ABNORMAL) UA with Microscopic reflex [...] 09/27/2023 9:15 PM CDT [facility] Specific [place] Urine 1.013 1.003 - 1.035 09/27/2023 9:15 [...] LAB - URINE ORDERABLES Final Result [facility]ATORY [facility] Lab [address] [facility] Lab (1st floor, no room number) [place] [address], [facility] from Last 3 Months or Most Recently Relevant to Health Maintenance Insurance MEDICARE [facility] MEDICARE BC [employer] BL[employer] Advance Directives For more information, please contact: [phone] * Full Code (Latest Code Status on [...] patie nt/ legal decision maker Care Teams Electronics Manufacturer Relationship Specialty Start Date End Date Kyra Perera [address] [place] [address] PCP - General Physician Prepress Specialist 03/31/22 Angel Hollins MD [address] [place], [place] [address] [address] Neurology 07/20/23 Petra Dorado PA [address] [place] [address] Physician Prepress Specialist Physical Medicine and Rehabilitation 07/20/23 Angel Hollins MD [address] [address] [address] Assigned Neuroscience Provider 08/03/23 Yves Ballard MD [address] [facility] [address] [place] [address] Assigned Heart and Vascular Provider 12/04/23
--- OUTSIDE RECORDS SUMMARY | 2024-06-27 11:37 | XMS_ITS | Encounter Summary ---
Author Organization [place] Address [address] [place] [address] Care Team Providers Care Insole Lip Turner Name Role Phone Trever Kyra Bell Primary Care Provider [phone] Angel Hollins MD Unavailable Petra Dorado Unavailable [phone] Angel Hollins MD Unavailable Yves Ballard MD Unavailable +- [phone] Reason for Referral * Consultation (Routine: Next available opening) - Pending Review Specialty Diagnoses / Procedures Referred By Contmichelle t Referred To Contact Diagnoses Hyperlipidemia LDL goal <70 Statin intolerance Elevated lipoprotein(a) Atherosclerosis of abdominal aorta Yves Ballard MD [address] [address] Phone: tel: fax: Referral ID Status Reason Start Date Expiration Date V isits Requested Visits Authorized [id number] Pending Review 06/17/2024 06/17/2025 1 1 Question Answer New or return visit? Return Appt Length 30 Min To be seen by Dr. Yves Ballard Comments Virtual visit Please schedule this in 2 months Appt note: Follow up to 06/13/24 Reason for Visit * Reason Onset Date Comments Appointment 06/17/2024 Encounter Details Date Type Department Care Team (Late st Contact Info) Description 06/17/2024 Telephone [facility] [place] 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 [place] [phone] Yves Ballard MD [address] [place] [address] Scheduled Referrals Name Type Priority Associated Diagnoses [...] aorta documented in this encounter Care Teams Insole Lip Turner Relationship Specialty Start Date End Date GwenKyra farah [address] [place] [address] PCP - General Physician Recreation Adviser 03/31/22 Angel Hollins MD [address] [place] [address] Neurology 07/20/23 Petra Dorado PA [address] [place] [address] Physician Recreation Adviser Physical Medicine and Rehabilitation 07/20/23 Angel Hollins MD [address] [address] Assigned Neuroscience Provider 08/03/23 Yves Blalard MD [address] [place] [address] Assigned Heart and Vascular Provider 12/04/23 documented as of this encounter
--- OUTSIDE RECORDS SUMMARY | 2024-06-27 11:37 | XMS_ITS | Encounter Summary ---
Author Organization [place] Address [address] [place] [address] Care Team Providers Care Title Clerk Name Role Phone Kyra Perera [place] Primary Care Provider [phone] Angel Hollins MD Unavailable Petra Dorado Unavailable [phone] Angel Hollins MD Unavailable Yves Ballard MD Unavailable + [phone] Reason for Visit * Reason Comments RECHECK Pt. will have labs d one at [facility] (pt to call with fax # see encounter) Follow up to 02/29/24 *gbn Encounter Details Date Type Department Care Team (Latest Contact Info) Description 06/13/2024 11:30 AM CDT Office Visit [facility] [place] 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 PHYSICIAN Gender Identity Not on file Sexual Orientation [...] Body Mass Index 25.24 01/27/2024 10:05 PM PSYCHIATRY PHYSICIAN documented in this encounter Patient Instructions * Patient Instructions* Yves Ballard MD - 06/13/2024 11:30 AM CDT Take Zypitamag 1 mg daily at night time Work with cardiology service for renal denervation etc Your Lipoprotein A is High , you will benefit with PCSK 9 inhibitors ( Reptatha or Praluent) New Rxsent New Rx praluent 75 mg sent to [facility] take every 14 days ( ask phamacist to teach) Video visit with me in 2 to 3 months documented in this encounter Progress Notes * Alycia Hays MA - 06/13/2024 11:30 AM CDT [facility] Patient is here for [...] Ballard MD - 06/13/2024 11:30 AM CDT [facility] Follow-up visit For full [...] is scheduled to undergo renal denervation through [facility] end of this month she is also scheduled to see her primary station installation supervisor tomorrow Lasix 20 mg 2 times a [...] Resource Strain: Low Risk (04/16/2024) Received from [employer] Financial Resource Strain Difficulty of Paying Living Expenses: 3 Difficulty of Paying Living Expenses: Not on file Food Insecurity: No Food Insecurity (04/16/2024) Received from [employer] Food Insecurity Do you worry your food will run out before you are able to buy more?: 1 Transportation Needs: No Transportation Needs (04/16/2024) Received from [employer] Transportation Needs Does lack of transportation keep you from medical appointments?: 1 Does lack of transportation keep you from work, meetings or getting things that you need?: 1 Physical Activity: Not on file Stress: Not on file Social Connections: Socially Integrated (04/16/2024) Received from [employer] [facility] Social Connections Do you often feel lonely or isolated from those around you?: 0 Interpersonal Safety: Not on file Housing Stability: Low Risk (04/16/2024) Received from [employer] [facility] Housing Stability What is your [...] events. She is scheduled to see primary station installation supervisor tomorrow and planning to undergo renal denervation forblood pressure control at [facility] in last week of June which [...] Description 08/13/2024 4:00 PM CDT Virtual Visit [facility] [place] [address] [place] [phone] Yves Ballard MD [address] [place] [address] documented as of this encounter Visit Diagnoses [...] benign documented in this encounter Care Teams Title Clerk Relationship Specialty Start Date End Date MyleslorieKyra Arabella [address] [place] [address] PCP - General Physician Filler Room Attendant 03/31/22 Angel Hollins MD [address] [address] Neurology 07/20/23 Petra Dorado PA [address] [place], [place] [address] Physician Filler Room Attendant Physical Medicine and Rehabilitation 07/20/23 Angel Hollins MD [address] [address] Assigned Neuroscience Provider 08/03/23 Yves Ballard MD [address] [place] [address] Assigned Heart and Vascular Provider 12/04/23 documented as of this encounter
--- OUTSIDE RECORDS SUMMARY | 2024-06-27 11:37 | XMS_ITS | Encounter Summary ---
Author Organization [place] Address [address] [place] [address]. [place] [address] Care Team Providers Care Fire Support Man Name Role Phone Kyra Perera Primary Care Provider [phone] Angel Hollins MD Unavailable Petra Dorado Unavailable [phone] Angel Hollins MD Unavailable Yves Ballard MD Unavailable + [phone] Reason for Visit * Reason Onset Date Comments Appointment 05/29/2024 Encounter Details Date Type Department Care Team (Late st Contact Info) Description 05/29/2024 Telephone [facility] [place] 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 Alycia Hays MA * Telephone Encounter - Melissa Hill - 06/03/2024 2:12 PM CDT Please refax lab orders to Cheryl Vasquez at [phone] * Telephone Encounter - Marleny Pop - 05/29/2024 11:[address] [facility] #[phone] Please fax lab orders per Dr Ballard [...] Description 08/13/2024 4:00 PM CDT Virtual Visit [facility] [place] [address] [place] [phone] Yves Ballard MD [address] [place] [address] documented as of this encounter Visit Diagnoses Not on filedocumented in this encounter Care Teams Fire Support Man Relationship Specialty Start Date End Date Kyra Perera [address] [place] [address] PCP - General Physician Booking Supervisor 03/31/22 Angel Hollins MD [address] [address] Neurology 07/20/23 Petra Dorado PA [address] [place], [place] [address] Physician Booking Supervisor Physical Medicine and Rehabilitation 07/20/23 Angel Hollins MD [address] [place] [address] Assigned Neuroscience Provider 08/03/23 Yves Ballard MD [address] [place] [address] Assigned Heart and Vascular Provider 12/04/23 documented as of this encounter
--- OUTSIDE RECORDS SUMMARY | 2024-06-27 11:37 | XMS_ITS | Encounter Summary ---
Author Organization [place] Address [address] [place] [address]. [place] [address] Care Team Providers Care Oracle Reports Developer Name Role Phone Kyra Perera Primary Care Provider [phone] Angel Hollins MD Unavailable Petra Dorado Unavailable [phone] Angel Hollins MD Unavailable Isi Ballard MD Unavailable + [phone] Reason for Visit * Reason Onset Date Comments Medication Question 06/10/2024 Encounter Details Date Type Department Care Team (Late st Contact Info) Description 06/10/2024 Telephone [facility] [place] 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 Toshia RIVERA RN [facility] Office: [phone] * Telephone Encounter - Melissa Hill - [...] well- See active requests. Toshia RIVERA RN [facility] Office: [phone] * Telephone Encounter - Alycia Hays MA - 06/10/2024 1:52 PM CDT [facility] Who is the name of the provider?: ISI BALLARD What is the location you see this provider at/preferred location?: [place] Person calling / Facility: Miya Restrepo Phone number: [phone] (home) Nurse call back needed: no Reason for call: Patient started taking Zypitamag Pitavastatin Magnesium (ZYPITAMAG) [address] Ballard had originally prescribed this for the patient. She is wondering if he will send arefill to [facility]. Pharmacy location: [place], [place] - [address] Outside Imaging: n/a Can we leave a detailed message on this number? YES 06/10/2024, 1:53 PM Alycia Hays MA documented in this encounter Plan of Treatment Upcoming Encounters Date Type Department Care Team (Late st Contact Info) Description 08/13/2024 4:00 PM CDT Virtual Visit [facility] [place] [address] [place] [phone] Isi Ballard MD [address] [place] [address] documented as of this encounter Visit Diagnoses Not on filedocumented in this encounter Care Teams Oracle Reports Developer Relationship Specialty Start Date End Date GwenKyra farah [facility] [place] [address] PCP - General Physician Surgical Supply Assistant 03/31/22 Angel Hollins MD [address] [address] Neurology 07/20/23 [place] [address] [place] [address] [address] [place] [address] Physician Surgical Supply Assistant Physical Medicine and Rehabilitation 07/20/23 Angel Hollins MD [address] [address] Assigned Neuroscience Provider 08/03/23 Isi Ballard MD [address] [place] [address] Assigned Heart and Vascular Provider 12/04/23 documented as of this encounter
--- OUTSIDE RECORDS SUMMARY | 2024-06-27 11:37 | XMS_ITS | Encounter Summary ---
Author Organization [place] Address [facility] 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 Gender Identity Not on file Sexual Orientation Not on file documented as of this encounter Plan of Treatment Upcoming Encounters Date Type Department Care Team (Late st Contact Info) Description 08/13/2024 4:00 PM CDT Virtual Visit [facility] [place] [address] [place] [phone] Yves Ballard MD [address] [place] [address] documented as of this encounter Visit Diagnoses Not on filedocumented in this encounter Care Teams Proposal Analyst Relationship Specialty Start Date End Date MylesloriePramodflavio Bell [address] [place] [address] PCP - General Physician Color Printer Operator 03/31/22 Angel Hollins MD [address] [address] Neurology 07/20/23 Petra Dorado PA [address] [place], [place] [address] Physician Color Printer Operator Physical Medicine and Rehabilitation 07/20/23 Angel Hollins MD [address] [place] [address] Assigned Neuroscience Provider 08/03/23 Yves Ballard MD [address] [place] [address] Assigned Heart and Vascular Provider 12/04/23 documented as of this encounter
--- OUTSIDE RECORDS SUMMARY | 2024-06-27 11:37 | XMS_ITS | Encounter Summary ---
Author Organization [place] Address [address] [facility] [place] [address] Care Team Providers Care Sock And Stocking Ironer Name Role Phone GwensofiKyra [place] Primary Care Provider [phone] Angel Hollins MD Unavailable Petra Dorado Unavailable [phone] Angle Hollins MD Unavailable Yves Ballard MD Unavailable + [phone] Reason for Visit * Reason Onset Date Comments Appointment 12/22/2023 Virtual - return vascular Encounter Details Date Type Department Care Team (Late st Contact Info) Description 12/22/2023 Telephone [facility] [place] 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 [place] [phone] Yves Ballard MD [address] [place] [address] documented as of this encounter Visit Diagnoses Not on filedocumented in this encounter Care Teams Sock And Stocking Ironer Relationship Specialty Start Date End Date GwensofiPramodflavio Bell [address] [place] [address] PCP - General Physician Auto Rebuilder 03/31/22 Angel Hollins MD [address] [facility] [id number] [place], [place] [address] Neurology 07/20/23 Petra Dorado PA [address] [place], [place] [address] Physician Auto Rebuilder Physical Medicine and Rehabilitation 07/20/23 Angel Hollins MD [address] [id number] [place] [address] Assigned Neuroscience Provider 08/03/23 Yves Ballard MD [address] [facility] [address] [place] [address] Assigned Heart and Vascular Provider 12/04/23 documented as of this encounter
--- OUTSIDE RECORDS SUMMARY | 2024-06-27 11:37 | XMS_ITS | Clinical Summary ---
Author Organization [facility] Address [address] [place] [address] Care Team Providers Care Laborer Tree Tapping Name Role Phone Bettye Davis MD Primary [...] for each transition of care or referral. [employer] - Dein Lernprogramm im Leben Allergies Active Allergy Reactions Criticality Noted Date [...] patient's age to complete this topic Insurance [facility] BLUE MEDICARE MANAGED CARE [facility] Care Teams Laborer Tree Tapping Relationship Specialty Start Date End Date Bettye Davis MD [address] [place] [address] PCP - General 06/13/10
--- OUTSIDE RECORDS SUMMARY | 2024-06-27 11:38 | XMS_ITS | Encounter Summary ---
Author Organization [facility] Address [address] [place] [address] Care Team Providers Care Pediatric Geneticist Name Role Phone Kyra Perera Primary Care Provider Angel Hollins MD Unavailable [phone] Petra Dorado Unavailable [phone] Angel Hollins MD Unavailable Yves Ballard MD Unavailable + [phone] Reason for Visit * Reason Onset Date Comments Patient Request 10/18/2023 Encounter Details Date Type Department Care Team (Late st Contact Info) Description 10/18/2023 [facility] Medical Advice [facility] [address] [place] [address] Angel Hollins MD [address] [place] [address] [id number] [place] [address] Patient Request Social History Tobacco [...] on file 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 Gender Identity Not on file Sexual Orientation Not on file documented as of this encounter Miscellaneous Notes * Telephone Encounter - Melissa Hill - 10/18/2023 12:45 PM CDT [facility] Who is the name of the provider?: ANGEL HOLLINS What is the location you see this provider at/preferred location?: [place] Person calling / Facility: Miya Restrepo Phone number: [phone] (home) Nurse call back needed: no Reason for call: Patient has a referral for scheduling Pharmacy location: [address] Outside Imaging: n/a Can we leave a detailed message on this number? YES 10/18/2023, 12:45 PM documented in this encounter Plan of Treatment Upcoming Encounters Date Type Department Care Team (Late st Contact Info) Description 08/13/2024 4:00 PM CDT Virtual Visit [facility] [place] [address] [place] [phone] Yves Ballard MD [address] [place] [address] documented as of this encounter Visit Diagnoses Not on filedocumented in this encounter Care Teams Pediatric Geneticist Relationship Specialty Start Date End Date Kyra Perera [address] [place] [address] PCP - General Physician Group Managing Director 03/31/22 Angel Hollins MD [address] [place] [address] [id number] [place] [address] Neurology 07/20/23 Petra Dorado PA [address] [place] [address] Physician Group Managing Director Physical Medicine and Rehabilitation 07/20/23 Angel Hollins MD [address] [facility] [place], [place] [address] Assigned Neuroscience Provider 08/03/23 Yves Ballard MD [address] [place], [place] [address] Assigned Heart and Vascular Provider 12/04/23 documented as of this encounter
--- OUTSIDE RECORDS SUMMARY | 2024-06-27 11:38 | XMS_ITS | Encounter Summary ---
Author Organization [facility] Address [address] [place] [address]. [place] [address] Care Team Providers Care Cable Maintainer Name Role Phone GwenPramod farahflavio Bell Primary Care Provider Angel Hollins MD Unavailable Petra Dorado Unavailable [phone] Angel Hollins MD Unavailable [phone] Yves Ballard MD Unavailable + [phone] Encounter Details Date Type Department Care Team (Late st Contact Info) Description 02/21/2024 [facility] [address] [place] [address] Angel Hollins MD [address] [place] [address] [id number] [place], [place] [id number] Social History Tobacco Use Types Packs/Day Years [...] on file 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 [place] [address] Yves Ballard MD [address] [place] [address] documented as of this encounter Visit Diagnoses Not on filedocumented in this encounter Care Teams Cable Maintainer Relationship Specialty Start Date End Date Kyra Perera [address] [place] [address] PCP - General Physician Energy Consultant 03/31/22 Angel Hollins MD [address] [place] [address] Neurology 07/20/23 Petra Dorado PA [facility] [address] [place] [address] Physician Energy Consultant Physical Medicine and Rehabilitation 07/20/23 Angel Hollins MD [address] [address] Assigned Neuroscience Provider 08/03/23 Yves Ballard MD [address] [place] [address] Assigned Heart and Vascular Provider 12/04/23 documented as of this encounter
--- OUTSIDE RECORDS SUMMARY | 2024-06-27 11:38 | XMS_ITS | Clinical Summary ---
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 543961423 (SNOMED CT) 09/19 Active 09/19 Fredi Worthy MD Neuropathic pain Infarction of basal ganglia Lt 380883701 (SNOMED CT) 09/19 Active 09/19 Fredi Worthy MD Infarction of basal ganglia Vertigo 726577105 (SNOMED CT) 04/19 Active 04/19 Fredi Worthy MD Vertigo Sleep apnea 64043566 (SNOMED CT) 09/24 Resolved 09/24 Fredi Worthy MD Sleep apnea New daily persistent headache 440206900205 105 (SNOMED CT) 03/29 Active 03/29 Fredi Worthy MD New daily persistent headache Hypertension, uncontrolled 64433937 (SNOMED CT) 03/29 Active 03/29 Fredi Worthy MD Hypertensive disorder Cardiac arrhythmia 96166423 (SNOMED CT) 09/24 Active 09/24 Armando Granados MD Conduction disorder of the heart Sleep apnea 93488525 (SNOMED CT) 09/24 Removed 09/24 Armando Granados MD Sleep apnea Intracranial vascular stenosis 31002091 (SNOMED CT) 09/24 Active 09/24 Armando Granados [...] controlled or until 600 mg/night 04/03 gabapentin 01744120026 Fredi Worthy MD GABAPENTIN 100 MG CAPS 1 capsule by mouth as directed : 1 cap or 100 mg per night and may increase by 100 mg every 5 night as needed until pain controlled or until 600 mg/night gabapentin 76174168118 Fredi Worthy MD EZETIMIBE 10 MG TABS ezetimibe 70132654556 Fredi Worthy MD GABAPENTIN 100 MG CAPS 1 capsule by mouth as directed : 1 to 3 caps 2 times/day during the day time as needed for pain. In addition take 200 mg per night and may increase by 100 mg per night as needed until pain controlled or until 600 mg/night 04/03 gabapentin 82493851395 Fredi Worthy MD AMLODIPINE BESYLATE 2.5 MG TABS once a day 09/19 amlodipine 95834428185 Fredi Worthy MD DIAZEPAM 5 MG TABS three times a day as needed 09/19 diazepam 07968533285 Fredi Worthy MD EPLERENONE 25 MG TABS once a day 09/19 eplerenone 92886671049 Fredi Worthy MD VITAMIN D 50 MCG (2000 UT) TABS once a day 09/19 cholecalciferol (vitamin d3) 09335782764 Fredi Worthy MD ONDANSETRON 4 MG TBDP every six hours as needed ondansetron 18075517836 Fredi Worthy MD FLUTICASONE PROPIONATE 50 MCG/ACT SUSP twice a day as needed 09/19 fluticasone propionate 16104947477 Fredi Worthy MD MECLIZINE HCL 12.5 MG TABS every eight hours as needed 09/19 meclizine 37259487193 Fredi Worthy MD ALPRAZOLAM 0.25 MG TABS Bedtime alprazolam 29746447066 Fredinadeem Worthy MD DILTIAZEM HCL 30 MG TABS twice a day 09/19 diltiazem hcl 77268093303 Fredi Worthy MD Aspirin once a day as needed Aspirin Fredi Worthy MD COENZYME Q10 10 MG CAPS Discontinued 09/19 coenzyme q10 50235565474 Fredinadeem Worthy MD NITROGLYCERIN 0.4 MG SUBL 5 mg as needed nitroglycerin 85196720531 Fredi Worthy MD FUROSEMIDE 20 MG TABS three times a day 09/19 furosemide 03215244306 Fredinadeem Worthy MD METOPROLOL TARTRATE 25 MG TABS metoprolol tartrate 62623545685 Fredi Worthy MD TELMISARTAN 20 MG TABS TAKE ONE TABLET BY MOUTH (20MG) TWICE A DAY PT REQUESTING THIS SPEARER FOR THIS telmisartan 57978014117 Fredi Worthy MD ONDANSETRON 4 MG TBDP Every 6 Hours as needed 11/24 Ondansetron Hcl 20558990364 System Maintenance NITROGLYCERIN 0.4 MG SUBL Every 5 Minutes X 3 as needed 09/19 Nitroglycerin 01226236172 System Maintenance MECLIZINE HCL 12.5 MG TABS Every 8 Hours as needed 09/19 Meclizine Hcl 25614418757 System Maintenance FUROSEMIDE 20 MG TABS 3XWK 09/19 Furosemide 07775759633 System Maintenance FLUTICASONE PROPIONATE 50 MCG/ACT SUSP Twice A Day as needed 09/19 Fluticasone Propionate (Nasal) 17066709995 System Maintenance EPLERENONE 25 MG TABS Daily 05/24 Eplerenone 94275885769 System Maintenance DILTIAZEM HCL 30 MG TABS Twice A Day 09/19 Diltiazem Hcl 83513182927 System Maintenance DIAZEPAM 5 MG TABS Three Times A Day as needed 09/19 Diazepam 46138278605 System Maintenance COENZYME Q10 10 MG CAPS Discontinued 09/19 Coenzyme Q10 (Ubidecarenone) 03648067055 System Maintenance VITAMIN D 50 MCG (1999) TABS Daily 09/19 Cholecalciferol 59039723641 System Maintenance Aspirin Daily as needed 09/19 Aspirin 49199757858 System Maintenance AMLODIPINE BESYLATE 2.5 MG TABS Daily 09/19 Amlodipine Besylate 22723507940 System Maintenance ALPRAZOLAM 0.25 MG TABS Bedtime 09/19 Alprazolam 58859564020 System Maintenance Medications Administered No information available. Allergies, Adverse Reactions, Alerts Allergy Name Reaction Description Start Date Severity Status Provider Verapamil Mild Active Armando Granados MD Rosuvastatin Mild Active Moosupphuc Granados MD Penicillin v Mild Active Moosupphuc Granados MD Morphine Mild Active Armandophuc Granados MD Metronidazole Mild Active Armando E Roberta MAURICE Metoprolol Mild Active Moosupphuc Granados MD Methyldopa Mild Active Armandophuc Granados MD Losartan Mild Active Armandophuc Granados MD Lorazepam Mild Active Moosupphuc Granados MD Lisinopril Mild Active Armandophuc Granados MD Latex Mild Active Armando E Roberta MAURICE Lactose Mild Active Moosupphuc Granados MD Labetalol Mild Active Armando Granados MD Hydrocodone Mild Active Armando Granados MD Hydrochlorothiazide Mild Active Armando Granados MD Hydralazine Mild Active Armandophuc Granados MD Diltiazem Mild Active Armandophuc Granados MD Atorvastatin Mild Active Moosupphuc Granados MD Acetaminophen Mild Active Moosupphuc Granados MD <originalText>Sulfa drugs<reference value=#allergy-21/></o Mild Active Rup ert Dion Granados MD <originalText>Milk derivatives<reference value=#allergy-23 Moderate Active Armando Granados MD <originalText>Lobster<refe rence value=#allergy-1/></orig in Moderate Active Armando Granados MD <originalText>Beta Adrenergic Blockers<reference value=#all Mild Active Armando Granados MD Results Date Name Value Unit Range Flag Description Office Visit: 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 smoking status Internal Other: Authorizatio n - [...] Detail Appointment 10:00 AM Shawna Bob PA-C, [address] [place] [address], [address], [place], [address], Pending order Follow up TIMMY Pending order Follow up TIMMY Pending order Instructions for Staff Pending order Follow up with N eurologist or TIMMY Pending order Patient Instruct ions Pending order Patient Instruct ions Pending order Follow up in [facility] or telemedicine with provider or TIMMY Pending Order exclud ed from report: Pending order Follow up in [facility] or telemedicine with provider or TIMMY Pending order Follow up in [facility] or telemedicine with provider or TIMMY Pending order MRA-Neck W/WO Pending order Follow up in [facility] or telemedicine with provider or TIMMY Pending Order exclud ed from report: Pending order MRA-Neck W/WO Pending order Patient Instruct ions Procedures Code Procedure Name Date Entry Date ORDERS Follow up with Neurologist or TIMMY ORDERS Instructions for Staff 04/03 [id number] Documentation of current medicatio ns [id number] Documentation of current medicatio ns ORDERS Follow up in clinic or telemedicine with provider or TIMMY ORDERS Follow up in clinic or telemedicine with provider or TIMMY ORDERS Patient Instructions [id number] Documentation of current medicatio ns [id number] Documentation of current medicatio ns Vital Signs Date Name Value Unit Description Heart Rate 66 /min pulse rate Height 145 [in_us] height E&M BP Diastolic 115 mm[Hg] blood pressu re, diastolic BP Systolic 209 mm[Hg] blood pressur e, systolic BMI (Body Mass Index) 2.06 kg/m2 Bod y Mass Index (Ratio) Weight Measured 61.5 [lb_av] weight E& M Weight Measured 61.5 [lb_av] weight E& M Immunizations No information available. Advance Directives No information available.
--- OUTSIDE RECORDS SUMMARY | 2024-06-27 11:38 | XMS_ITS | Encounter Summary ---
Author Organization [facility] Address [address] [place] [address] Care Team Providers Care Master Rigger Name Role Phone Kyra Perera Primary Care Provider [phone] Angel Hollins MD Unavailable Petra Dorado Unavailable [phone] Angel Hollins MD Unavailable Yves Ballard MD Unavailable + [phone] Reason for Visit * Reason Onset Date Comments Referral 07/19/2023 Encounter Details Date Type Department Care Team (Late st Contact Info) Description 07/19/2023 [facility] - [address], [address] [place] [address] None Referral Social History Tobacco Use Types Packs/Day Years Used Date Smoking Tobacco: Never Assessed Adolescent Education Answer Date Record ed Getting School Help Needed Not on file 12/25 Comments Unknown Sex and Gender Information Value Date Recorded Sex Assigned at Not on file Legal Sex Female 3:34 AM VALET Gender Identity Not on file Sexual Orientation Not on file documented as of this encounter Miscellaneous Notes * Telephone Encounter - Shantel Garcia - 07/19/2023 11:08 AM CDT [facility] Phone Message May a detailed message be left on voicemail: yes Reason for Call: Other: [facility] is calling from [facility] to schedule stroke follow up. Janay unable to schedule due to no specific instructions to schedule. Please contact patients daughter fatemeh to schedule. Action Taken: Message routed to: Other: [facility] Travel Screening: Not Applicable documented in this encounter Plan of Treatment Upcoming Encounters Date Type Department Care Team (Late st Contact Info) Description 08/13/2024 4:00 PM CDT Virtual Visit [facility] [place] [address] [place] [address] Yves Ballard MD [address] [place] [address] documented as of this encounter Visit Diagnoses Not on filedocumented in this encounter Care Teams Master Rigger Relationship Specialty Start Date End Date Kyra Perera [address] [place] [address] PCP - General Physician Defect Repairer Glassware 03/31/22 Angel Hollins MD [address] [address] Neurology 07/20/23 Petra Dorado PA [address] [place] [address] [address] Physician Defect Repairer Glassware Physical Medicine and Rehabilitation 07/20/23 Angel Hollins MD [address] [address] Assigned Neuroscience Provider 08/03/23 Yves Ballard MD [address] [place] [address] Assigned Heart and Vascular Provider 12/04/23 documented as of this encounter
--- OUTSIDE RECORDS SUMMARY | 2024-06-27 11:38 | XMS_ITS | Clinical Summary ---
Author Organization [employer] [employer] [facility] Address [address] [address] Phone Care Team Providers Care Final Inspector Shuttle Name Role Phone Elsewhere, Pcp Primary Care [...] on file Insurance MED[employer] CHOICE Care Teams Final Inspector Shuttle Relationship Specialty Start Date End Date Elsewhere, Pcp PCP - General 12/20/14
--- OUTSIDE RECORDS SUMMARY | 2024-06-27 11:38 | XMS_ITS | Encounter Summary ---
Author Organization [place] Address [address] [place] [address] Care Team Providers Care Irs Agent Name Role Phone Kyra Perera Primary Care Provider Angel Hollins MD Unavailable [phone] Petra Dorado Unavailable [phone] Angel Hollins MD Unavailable Yves Ballard MD Unavailable + [phone] Reason for Visit * Rehab Therapy Integrated Services (Routine) - Closed Specialty Diagnoses / Procedures Referred By Scott muniz Referred To Contact Diagnoses Scot DAUGHERTY PF RN sent order Procedures PT NEURO EVAL [address] [address] Phone: tel: Referral ID Status Reason Start Date Expiration Date Visits Re quested Visits Authorized [id number] Closed 07/18/2023 03/12/2024 365 365 Encounter Details Date Type Department Care Team (Latest Contact Info) Description 01/22/2024 1:30 PM 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 TEACHER Therapy Visit [address] [phone] [place] [address] Marquita Trivedi PT Cerebrovascular accident (CVA) due [...] on file Legal Sex Female 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 Gender Identity Not on file Sexual Orientation [...] Virtual Visit [facility] [place] [address] [place] [phone] Yves Ballard MD [address] [place] [address] documented as of this encounter Visit Diagnoses Diagnosis Cerebrovascular accident (CVA) due to thrombosis of left middle cerebral artery (H)- Primary documented in this encounter Care Teams Irs Agent Relationship Specialty Start Date End Date Kyra Perera [address] [place] [address] PCP - General Physician Pilot Submersible 03/31/22 Angel Hollins MD [address] [place] [address] [id number], [place] [address] Neurology 07/20/23 Petra Dorado PA [address] [place] [address] Physician Pilot Submersible Physical Medicine and Rehabilitation 07/20/23 Angel Hollins MD [address]09 [facility] [place] [address] Assigned Neuroscience Provider 08/03/23 Yves Ballard MD [address] [place] [address] Assigned Heart and Vascular Provider 12/04/23 documented as of this encounter
--- OUTSIDE RECORDS SUMMARY | 2024-06-27 11:38 | XMS_ITS | Clinical Summary ---
Author Organization [facility] Address [address] [place] [address] Care Team Providers Care Sportspersons Name Role Phone Kyra Perera Primary Care Provider Genaro Leonard MD Unavailable [phone] Janay Nunez MD Unavailable [phone] Carolyn Pisano Unavailable Keo Escobar MD [...] 06/24/2024 8:10 AM CDT Office Visit [facility] [address] [place] [address] Kyra Perera PA Follow Up (Been in bed a lot, having pain all over / discuss procedure coming up) 06/24/2024 Travel 06/14/2024 11:30 AM CDT Office Visit [facility] [address] [facility] [address] [place] [address] Janay Nunez MD Follow Up (3 MONTH F/U, DISCUSS RENAL DENERVATION /DX;00.2 (ICD-10-CM) - Palpitations; Hypertension; LVH (left ventricular hypertrophy); Cardiomyopathy, unspecified type (HC); Paroxysmal SVT (supraventricular tachycardia) (HC)//PT STATES SHE IS FATIGUED FROM HER STROKE. GETS SOME PALPITATIONS WHEN SHE TAKES METOPROLOL/) 06/14/2024 Telephone [facility] [place] [address] [place] [address] Janay Nunez MD notification 06/14/2024 Orders Only [facility] [place] [address] [place] [address] Janay Nunez MD <No scans attached> 06/14/2024 Travel 06/11/2024 Telephone [facility] [address] [place] [address] Janay Nunez MD Renal Denervation 06/07/2024 Orders Only [facility] [address] [place] [address] Janay Nunez MD <No scans attached> 06/06/2024 9:20 AM CDT Office Visit [facility] [address] [place] [address] Keo Escobar MD Musculoskeletal Problem (Follow up neck and right arm pain) 06/06/2024 Travel 05/29/2024 Telephone [facility] [address] [place] [address] Kyra Perera PA FYI (lab ) 05/20/2024 9:30 AM CDT Office Visit [facility] [address] [facility] [place] [place] [address] Kyra Perera PA Follow Up 05/20/2024 Travel 05/16/2024 8:15 AM VETERINARY RECEPTIONIST Orders Only [facility] [address] [facility] [facility] [place] [address] Lab, [place] [facility] 05/16/2024 Travel 05/10/2024 Telephone [facility] [address] [facility] [address] Kyra Perera PA Medication Management (reaction) 05/06/2024 3:00 PM VETERINARY RECEPTIONIST Ancillary Procedure [facility] [address] [place] [address] 05/06/2024 Travel 05/01/2024 Orders Only [facility] [address] [place] [address] Jose Luis Bush MD <No scans attached> 04/16/2024 10:50 AM VETERINARY RECEPTIONIST Office Visit [facility] [address] [facility] [facility] [place] [address] Kyra Perera PA Medication Management (Stopped taking olmesartan. ); Concerns 04/16/2024 Travel 04/11/2024 8:30 AM VETERINARY RECEPTIONIST Orders Only [facility] [address] [facility] [facility] [place] [address] Lab, [place] [facility] 04/10/2024 10:40 AM VETERINARY RECEPTIONIST Office Visit [facility] [address] [facility] [place] [address] Keo Escobar MD Musculoskeletal Problem (Follow up [...] 6 Hyperlipidemia Brother 7 Other Father d54 [place], liver e tom Cancer-breast Maternal Aunt Other [...] on file Legal Sex Female 5:26 AM VETERINARY RECEPTIONIST Gender Identity Not on file Sexual Orientation [...] Info) Description 07/03/2024 12:00 PM CDT Appointment [facility] [address] [place] [address] 07/09/2024 10:50 AM CDT Office Visit [facility] [address] [place] [address] Kyra Perera PA [address] [place] [address] 09/03/2024 1:30 PM CDT Office Visit [facility] [address] [facility] [address] [place] [address] Janay Nunez MD [address] [place] [address] 09/04/2024 10:00 AM CDT Office Visit [facility] [address] [place] [address] Keo Escobar MD [address] [place] [address] 09/04/2024 1:00 PM CDT Telemedicine [facility] [address] [facility] [address] [place] [phone] Junito Greer MD [address] [place] [address] Health Maintenance Due Date Last Done Comments [...] REFLEX MEASURED LDL Routine 05/16/2024 8:32 AM VETERINARY RECEPTIONIST Cerebrovascular accident (CVA), unspecified mechanism (HC) LIPOPROTEIN A Routine 05/16/2024 8:32 AM VETERINARY RECEPTIONIST Cerebrovascular accident (CVA), unspecified mechanism (HC) TSH Routine 05/16/2024 8:32 AM VETERINARY RECEPTIONIST Cerebrovascular accident (CVA), unspecified mechanism (HC) Pruritus, unspecified XR SPINE CERVICAL 2 VIEWS FLEXION AND EXTENSION Routine 05/06/2024 3:22 PM VETERINARY RECEPTIONIST Pain of cervical spine HEMOGLOBIN Routine 04/16/2024 12:03 PM VETERINARY RECEPTIONIST Cerebrovascular accident (CVA), unspecified mechanism (HC) Fatigue, unspecified type FERRITIN Routine 04/16/2024 12:03 PM VETERINARY RECEPTIONIST Cerebrovascular accident (CVA), unspecified mechanism (HC) Fatigue, unspecified type Bariatric surgery status IRON PLUS IRON BINDING CAP Routine 04/16/2024 12:03 PM VETERINARY RECEPTIONIST Cerebrovascular accident (CVA), unspecified mechanism (HC) Fatigue, unspecified type Other pruritus VITAMIN D 25 (DEFICIENCY) Routine 04/16/2024 12:03 PM VETERINARY RECEPTIONIST Vitamin D deficiency BASIC METABOLIC PANEL Routine 04/16/2024 12:03 PM VETERINARY RECEPTIONIST Cerebrovascular accident (CVA), unspecified mechanism (HC) BASIC METABOLIC PANEL Routine 04/11/2024 8:29 AM VETERINARY RECEPTIONIST Hypertension, unspecified type Cerebrovascular accident (CVA), unspecified mechanism (HC) LIPID PANEL W REFLEX MEASURED LDL Routine 04/11/2024 8:29 AM VETERINARY RECEPTIONIST Cerebrovascular accident (CVA), unspecified mechanism (HC) XR MAMMO ALEENA BILAT SCREEN Routine 10/09/2023 3:57 PM CDT Visit for screening mammogram COLONOSCOPY SCREENING Routine 10/10/2022 12:00 AM CDT Screen for colon cancer ANTI HCV Routine 02/09/2016 10:00 AM VETERINARY RECEPTIONIST Need for hepatitis C screening test from [...] LDL-C. Andrea SS et al. TEODORO. 2013;310(19): 7789-4285 (http://education.Oppa/faq/TRZ047) CHOL/HDLC RATIO 5.1(H) <5.0 (calc) [facility] NON HDL CHOLESTEROL 190(H) <130 mg/dL (calc) [facility] Comment: For patients with diabetes plus 1 major ASCVD risk factor, treating to a non-HDL-C goal of <100 mg/dL (LDL-C of <70 mg/dL) is considered a therapeutic option. Blood BLOOD SPECIMEN / Unknown 06/24/2024 9:03 AM CDT 06/24/2024 9:03 AM CDT [facility] Chano Nunez MD CHEMISTRY Final Result [facility] [address] [place] [address], [employer] [address] * (ABNORMAL) CBC W PLT NO DIFF [...] 9:03 AM CDT 06/24/2024 9:03 AM CDT [facility] Chano Nunez MD HEMATOLOGY Final Result [facility] [address] [place] [address], [facility] [address] [place] [address] * COMP METABOLIC PANEL (06/24/2024 9:03 AM CDT) [facility] GLUCOSE 89 65 - 99 mg/dL [facility] [...] Nunez MD CHEMISTRY Final Result [facility] [address] [place] [address], [facility] [address] [place] [address] * SCAN [facility] (06/10/2024 1:17 PM CDT) [...] * (ABNORMAL) LIPOPROTEIN A (05/16/2024 8:32 AM VETERINARY RECEPTIONIST) LIPOPROTEIN (a) 192(H) nmol/L [facility] Comment: Reference Range <75 Risk: Optimal <75 Moderate 75-125 High >125 Cardiovascular event risk category cut points (optimal, moderate, high) are based on [employer]x Moralez [facility] 2017;69:692-711. Blood BLOOD SPECIMEN / Unknown 05/16/2024 8:32 AM VETERINARY RECEPTIONIST 05/16/2024 8:32 AM VETERINARY RECEPTIONIST Kyra ANTHONY SEND OUTS Final R esult [facility] [address] [place] [address], [place] [phone] [facility] [address] [place] [address] * TSH (05/16/2024 8:32 AM VETERINARY RECEPTIONIST) TSH 2.00 0.40 - 4.50 mIU/L [facility] Blood BLOOD SPECIMEN / Unknown 05/16/2024 8:32 AM VETERINARY RECEPTIONIST 05/16/2024 8:32 AM VETERINARY RECEPTIONIST Kyra ANTHONY CHEMISTRY Final R esult [facility] [address] [place] [address], [place] [phone] [facility] [address] [place] [address] * XR SPINE CERVICAL 2 VIEWS FLEXION AND EXTENSION (05/06/2024 3:22 PM VETERINARY RECEPTIONIST) Anatomical Region Laterality Modality Spine, CERVICAL SPINE Digital Ra diography 05/08/2024 4:43 AM VETERINARY RECEPTIONIST Impressions 05/08/2024 4:43 AM VETERINARY RECEPTIONIST 1. Severe degenerative disc disease at C5-C6 with severe loss of disc height. No change in 3 millimeters of posterior listhesis of C5 on C6 between flexion and extension. Dictated by Benedict Parisi MD @ 05/08/2024 4:43:26 AM (Electronically Signed) Narrative 05/08/2024 4:43 AM VETERINARY RECEPTIONIST For Patients: As a result of the [...] millimeters of posterior listhesis of C5 on A3zdkgyih flexion and extension. At C3-C4, 1.5 millimeters of anterior listhesis of C3 on C4 in flexioncompared to 1 millimeter with extension. IMPRESSION: 1. Severe degenerative disc disease at C5-C6 with severe loss of discheight. No change in 3 millimeters of posterior listhesis of C5 on G2ijrxalu flexion and extension. Dictated by Benedict Parisi MD @ 05/08/2024 4:43:26 AM (Electronically Signed) Jose Luis Bush MD GENERAL IMAGING Final Result * (ABNORMAL) VITAMIN D 25 (DEFICIENCY) (04/16/2024 12:03 PM VETERINARY RECEPTIONIST) VITAMIN D,25-OH,TOTAL,IA 21(L) 30 - 100 ng/mL [...] D, (D2,D3), LC/MS/MS is recommended: order code [id number] (patients >2yrs). See Note 1 Note 1 For additional information, please refer to http://education.Oppa/faq/CAV418 (This link is being provided for informational/ educational purposes only.) Blood BLOOD SPECIMEN / Unknown 04/16/2024 12:03 PM VETERINARY RECEPTIONIST 04/16/2024 12:03 PM VETERINARY RECEPTIONIST Kyra ANTHONY SEND OUTS Final R esult [facility] [address] [place] [address], [facility] [address] [place] [address] * IRON PLUS IRON BINDING CAP (04/16/2024 12:03 PM VETERINARY RECEPTIONIST) IRON, TOTAL 72 45 - 160 mcg/dL [facility] IRON BINDING CAPACITY 364 250 - 450 mcg/dL (calc) [facility] % SATURATION 20 16 - 45 % (calc) [facility] Blood BLOOD SPECIMEN / Unknown 04/16/2024 12:03 PM VETERINARY RECEPTIONIST 04/16/2024 12:03 PM VETERINARY RECEPTIONIST Kyra ANTHONY CHEMISTRY Final R esult [facility] [address] [place] [address], [place] [phone] [facility] [address] [place] [address] * HEMOGLOBIN (04/16/2024 12:03 PM VETERINARY RECEPTIONIST) [facility] HEMOGLOBIN 15.3 11.7 - 15.5 g/dL [facility] Blood BLOOD SPECIMEN / Unknown 04/16/2024 12:03 PM VETERINARY RECEPTIONIST 04/16/2024 12:03 PM VETERINARY RECEPTIONIST Kyra ANTHONY HEMATOLOGY Final R esult Performing Organization Address City/[facility]/ZIP Co de Phone Number [facility] [address] [place] [address], [facility] [address] [place] [address] * FERRITIN (04/16/2024 12:03 PM VETERINARY RECEPTIONIST) [facility] FERRITIN 67 16 - 288 ng/mL [facility] Blood BLOOD SPECIMEN / Unknown 04/16/2024 12:03 PM VETERINARY RECEPTIONIST 04/16/2024 12:03 PM VETERINARY RECEPTIONIST Kyra ANTHONY CHEMISTRY Final R esult [facility] [address] [place] [address], [place] [phone] [facility] [address] [facility] [place] [address] * BASIC METABOLIC PANEL (04/16/2024 12:03 PM VETERINARY RECEPTIONIST) Only the most recent of2 resultswithin the time period is included. [facility] GLUCOSE 92 65 - 99 mg/dL [facility] [...] BLOOD SPECIMEN / Unknown 04/16/2024 12:03 PM VETERINARY RECEPTIONIST 04/16/2024 12:03 PM VETERINARY RECEPTIONIST us Kyra ANTHONY CHEMISTRY Final R esult [facility] [address] [place] [address], [facility] [employer] [facility] [address] [place] [address] * XR MAMMO ALEENA BILAT SCREEN (10/09/2023 [...] care provider. XR MAMMO ALEENA BILAT SCREEN [[id number]] CLINICAL HISTORY: This is an asymptomatic 73 y.o. patient. INDICATION FOR EXAM: Mammogram Screening. TECHNIQUE: CC & MLO views were obtained. This study was evaluated with the assistance of Computer-Aided Detection. Breast Tomosynthesis was used in interpretation. COMPARISON FILM: Yes [facility] FINDINGS: The breasts are heterogeneously dense, which may obscure small masses. There are no dominant masses, suspicious micro calcifications or areas of architectural distortion. Kyra ANTHONY MAMMO Final R esult * COLONOSCOPY SCREENING (10/10/2022 12:00 AM CDT) Andrea Devi MD GI PROCEDURE ORD Final Re sult * ANTI HCV [93947.2] (02/09/2016 10:00 AM VETERINARY RECEPTIONIST) HEPATITIS C ANTIBODY Non-Reacti ve Non-Reacti ve 02/09/2016 5:42 PM VETERINARY RECEPTIONIST [facility] Blood BLOOD SPECIMEN / Unknown Venipuncture / Unknown 02/09/2016 10:00 AM VETERINARY RECEPTIONIST 02/09/2016 10:01 AM VETERINARY RECEPTIONIST Narrative [facility] - 02/09/2016 5:42 PM VETERINARY RECEPTIONIST Antibodies to HCV not detected; does not exclude the possibility of exposure to HCV. Result [facility] Kyra ANTHONY SEND OUTS Final R esult [facility] [address] [place] [address], [place] from Last 3 Months or Most Recently Relevant to Health Maintenance Insurance [employer] [place] BLUE HB ONLY MEDICARE PART B HB ONLY [employer] [place] BLUE MR PB ONLY MEDICARE PART A HB ONLY [employer] Member Subscriber Plan / Payer (Ef fective 2009-Present) Name:Miya Restrepo Relation to Subscriber:Self Name:Miya Restrepo Payer ID:Not on file Group ID:Not on file Type:Not on file [id number] Address: [address] [facility] [address] [place] [address] Advance Directives * Full Code (Latest Code [...] 4:20 AM 03/22/2010 1:40 PM Care Teams Sportspersons Relationship Specialty Start Date End Date Kyra Perera PA [address] [place] [address] PCP - General 06/16/08 Genaro Leonard MD [address] [facility] [address] [place] [address] Cardiology - Electrophysiology 05/30/22 Janay Nunez MD [address] [facility] [place] [address] Cardiology - Interventional 09/21/22 Carolyn Pisano PA [address] [facility] [place] [address] Physician Savings Teller 09/21/22 Keo Escobar MD [address] [place] [address] Sports Medicine - Family Medicine 09/21/22
[2024-06-27] MEDS: diphenhydrAMINE 50 MG/ML inj 25 MG IVP (11:39)
[2024-06-27] MEDS: LACTATED RINGERS 1000 ML 1,000 ML IV (11:39)
[2024-06-27] MEDS: FAMOTIDINE 10 MG/ML inj 20 MG IVP (11:39)
[2024-06-27 11:47] LABS: Appearance Urine Clear (Clear); Bilirubin Urine Negative (Negative); Blood Urine Negative (Negative); Color Urine Yellow (Yellow); Glucose Urine Negative (Negative); Ketones Urine Negative (Negative); Leukocyte Esterase Urine Negative (Negative); Nitrite Urine Negative (Negative); Protein Urine Negative (Negative); Specific Gravity Urine 1.025 (1.000-1.030); Urobilinogen Urine 0.2 (0.2-1.0)
[2024-06-27 11:57] LABS: RBC Urine 0-2 (0-2); Squamous Epithelial Cell Urine Few (None-Few); WBC Urine 0-2 (0-5)
[2024-06-27 12:01] LABS: Basophils Absolute Auto 0.03 K/uL (0.00-0.30); Basophils Percent Auto 0.6 % (0.0-3.0); Eosinophils Absolute Auto 0.11 K/uL (0.00-0.50); Eosinophils Percent Auto 2.2 % (0.0-7.0); Hematocrit 48.1 % (33.0-51.0); Hemoglobin* 15.7 gm/dL (12.0-16.0); Lymphocytes Absolute Auto 1.47 K/uL (0.90-2.90); Lymphocytes Percent Auto 29.8 % (20-44); Mean Corpuscular HGB Conc 33 gm/dL (32-36); Mean Corpuscular Hemoglobin 29 pg (26-34); Mean Corpuscular Volume 89 fL (80-100); Monocytes Percent Auto 9.9 % (0.0-11.0); Neutrophils Absolute Auto 2.83 K/uL (1.7-7.0); Neutrophils Percent Auto 57.5 % (42.0-72.0); Platelet Count* 193 K/uL (140-440); RDW Coefficient of Variation % 12.8 % (11.5-15.5); Red Blood Count 5.39 m/uL (4.00-5.20); White Blood Count* 4.93 K/uL (4.50-11.00)
[2024-06-27 12:03] LABS: Slide Review Reflex No
[2024-06-27 12:15] LABS: Chloride* 104 mmol/L (96-114); Potassium* 4.1 mmol/L (3.6-5.1); Sodium* 141 mmol/L (135-149)
[2024-06-27 12:18] LABS: Anion Gap 8 mEq/L (7-15); Blood Urea Nitrogen* 13 mg/dL (7-30); Calcium* 9.5 mg/dL (8.4-10.6); Carbon Dioxide* 29 mmol/L (20-32); Creatinine* 0.7 mg/dL (0.5-1.5); Est. Creatinine Clearance* 39.04; Estimated Glomerular Filt Rate 91 ml/min; Glucose* 98 mg/dL (60-115); Magnesium* 1.8 mg/dL (1.5-2.6)
[2024-06-27 12:31] LABS: Troponin I* < 0.01 ng/mL (0.01-0.04)
[2024-06-27 12:41] LABS: PCR FLU A Negative PCR FLU A (Negative); PCR FLU B Negative PCR FLU B (Negative); PCR RSV Negative PCR RSV (Negative); SARS PCR* Negative SARS-CoV-2 (Negative)
== END 2024-06-27 13:52 | disposition home or self-care (01) ==
PROVIDERS: Emergency Provider Student in an Organized Health Care Education/Training Program; PCP Physician Assistant Medical
DX: I10 Essential (primary) hypertension (principal); T78.40XA Allergy, unspecified, initial encounter
CPT/HCPCS: 36415; 71046; 80048; 81001; 83735; 84484; 85025; 87631; 93005; 96374; 96375; 99284; J1200; J1308; J7120; J7512

== ENCOUNTER 2024-11-24 08:29 | Emergency (ER) | payer MEDICARE, BC, SELFPAY ==
--- OUTSIDE RECORDS SUMMARY | 2024-08-13 16:00 | XMS_ITS | Encounter Summary ---
Author Organization [facility] Address [address] [place] [address] Care Team Providers Care Investigator Utility Bill Complaints Name Role Phone Myleslorie Kyra Bell Primary Care Provider [phone] Agnel Hollins MD Unavailable Petra Dorado Unavailable [phone] Angel Hollins MD Unavailable Yves Ballard MD Unavailable [phone] Reason for Referral * Consultation (Routine: Next available opening) - Pending Review Specialty Diagnoses / Procedures Referred By Contmichelle t Referred To Contact Diagnoses Hyperlipidemia LDL goal <70 Statin intolerance Elevated lipoprotein(a) Atherosclerosis of abdominal aorta Yves Ballard MD [address] [address] Phone: tel: fax: Referral ID Status Reason Start Date Expiration Date V isits Requested Visits Authorized [id number] Pending Review 10/21/2024 10/21/2025 1 1 Question Answer New or return visit? Return Appt Length 30 Min To be seen by Dr. Yves Ballard Comments Fasting labs Virtual follow up 1 week after labs Appt note: Follow up to 08/13/24 Reason for Visit * Reason Comments Video Visit * Consultation (Routine: Next available opening) - Pending Review Specialty Diagnoses / Procedures Referred By Scott t Referred To Contact Diagnoses Hyperlipidemia LDL goal <70 Statin intolerance Elevated lipoprotein(a) Atherosclerosis of abdominal aorta Yves Ballard MD [address] [place] [address] Phone: tel: fax: Referral ID Status Reason Start Date Expiration Date V isits Requested Visits Authorized [id number] Pending Review 06/17/2024 06/17/2025 1 1 Encounter Details Date Type Department Care Team (Latest Contact Info) Description 08/13/2024 4:00 PM CDT Virtual Visit [facility] [place] 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 Gender Identity Not on file Sexual Orientation Not on file documented as of this encounter Patient Instructions * Patient Instructions* Yves Ballard MD - 08/13/2024 4:00 PM CDT Please discuss with your insurance company regarding coverage for Leqvio (inclisiran) for cholesterol reduction and if it is covered please let us know we can prescribe Continue therapeutic lifestyle modifications Follow-up with cardiology service as planned end of this month at [facility] Follow-up with me in 3 months virtual video or office visit documented in this encounter Progress Notes * Yves Ballard MD - 08/13/2024 4:00 PM CDT Virtual Visit Details Type of service: Video Visit Originating Location (pt. Location): Home Distant Location (provider location): On-site Platform used for Video Visit: LatiaEUROBOX ([place] did not worked Doximity used) Joseline Tracy MA Provider visit note: Follow-up visit Underwent renal denervation June 2024 at [facility] Still BP Is elevated For full details please see my previous office visit notes Review of recent labs Allergic to 34 different medications Recent lipids improved but not at goal High lipoprotein a She could not tolerate Zetia either stopped taking Her insurance did not cover Repatha but covered Praluent but it was costing more than $770 and she never took it Recently seen and evaluated by cardiology service her blood pressure is very high and cannot handleany medications except low-dose metoprolol 12.5 twice a day Lasix 20 mg 2 times a week Review of systems: Reviewed all 12 point review of systems as per HPI otherwise unremarkable Physical exam:( no physical exam done this is virtual visit) Reviewed recent laboratory tests, imaging studies in the [facility] and updated chart Assessment and plan: 1. Hypertension, uncontrolled and intolerance to almost [...] Statin intolerance This is a very pleasant 74-year-old female with complex and complicated past medical and past surgical history intolerance to multiple medications listed 34 medication allergies uncontrolled hypertension only able to take low-dose metoprolol 12.5 mg twice a day intolerance to almost all statins andZetia except able to handle Zypitamag 1 mg every other day briefly then she stopped due to side effects ? with very high lipoprotein a with history of atherosclerosis of abdominal aorta, previous stroke at risk for recurrent events. She underwent renal denervation for blood pressure control at [facility] in last week of June 2024 which was unsuccessful per patient I prescribed in the past the Repatha her insurance did not cover and they covered Praluent but it was costing more than $700 and she never took it Therapeutic lifestyle modifications suggested Only other option is Leqvio ( Inclisirin) injections in the future, discussed with the patient and suggested her to explore with her insurance company these injections very first year total 3 shots 0, 3 months, 6 months from the second shot and then followed by every 6 months. Video Visit Details Type of Service: Video Visit Video Start Time: 3:55 PM Video End Time: 4:25 PM Total 30 minutes spent on the date of the encounter doing chart review, review of previous evaluation, history, documentation and addressed above-mentioned issues AVS with written instructions done The longitudinal care of plan for the above diagnoses was addressed during this visit. Due to addedcomplexity of care, we will continue to supprt Dewil Bell Kaye and the subsequent management of this/these conditions and with ongoing continuity of care for this/these conditions. Originating Location (patient location): Home Distant Location (provider location): [facility] Mode of Communication: Video Conference via HotClickVideo This visit is being conducted as a virtual visit due to the emphasis on mitigation of the COVID-19 virus pandemic. The clinician has decided that the risk of an in-office visit outweighs the benefit for this patient. MD Yves Mason MD,FAHA,FSVM,FNLA, FACP Vascular Medicine Clinical Hypertension Specialist Clinical Lipidologist documented in this encounter Miscellaneous Notes * Addendum Note - Randy Benton RN - 08/13/2024 4:00 PM CDTAddended by: RANDY BENTON on: 10/21/2024 03:17 PM Modules accepted: Orders documented in this encounter Plan of Treatment Scheduled Referrals Name Type Priority Associated Diagnoses Orde r Schedule Follow-Up with Vascular Medicine Referral Routine: Next available opening Hyperlipidemia LDL goal <70 Statin intolerance Elevated lipoprotein(a) Atherosclerosis of abdominal aorta Expected: 11/21/2024 (Approximate), Expires: 10/21/2025 documented as of this encounter Visit Diagnoses Diagnosis Hyperlipidemia LDL goal <70 Other and unspecified hyperlipidemia Statin intolerance Other drug allergy Elevated lipoprotein(a) Other disorders of lipoid metabolism Atherosclerosis of abdominal aorta Atherosclerosis of aorta documented in this encounter Care Teams Investigator Utility Bill Complaints Relationship Specialty Start Date End Date Kyra Perera [address] [place] [address] PCP - General Physician Bilingual Manager 03/31/22 Angel Hollins MD [address] [address] Neurology 07/20/23 [place] [address] [place], [place] [address] [place] [address] Physician Bilingual Manager Physical Medicine and Rehabilitation 07/20/23 Angel Hollins MD [address] [address] Assigned Neuroscience Provider 08/03/23 Yves Ballard MD [address] [facility] [address] [place] [address] Assigned Heart and Vascular Provider 12/04/23 documented as of this encounter
--- OUTSIDE RECORDS SUMMARY | 2024-11-24 08:31 | XMS_ITS | Encounter Summary ---
Author Organization [facility] Address [address] [place] [address] Care Team Providers Care Requirements Manager Name Role Phone Kyra Perera Primary Care Provider Angel Hollins MD Unavailable [phone] Petra Dorado Unavailable [phone] Angel Hollins MD Unavailable Yves Ballard MD Unavailable Reason for Visit * Reason Onset Date Comments Patient Request 10/18/2023 Encounter Details Date Type Department Care Team (Late st Contact Info) Description 10/18/2023 [facility] Medical Advice [facility] [address] [place] [address] Angel Hollins MD [address] [place] [address] [id number] [address] Patient Request Social History Tobacco [...] file Legal Sex Female 3:34 AM 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 YES 10/18/2023, 12:45 PM documented in this encounter Plan of Treatment Not on file documented as of this encounter Visit Diagnoses Not on filedocumented in this encounter Care Teams Requirements Manager Relationship Specialty Start Date End Date Kyra Perera [address] [place] [address] PCP - General Physician Sheep Killer 03/31/22 Angel Hollins MD [address] [place] [address] Neurology 07/20/23 Petra Dorado PA [address] [id number] Physician Sheep Killer Physical Medicine and Rehabilitation 07/20/23 Angel Hollins MD [address] [place] [address] Assigned Neuroscience Provider 08/03/23 Yves Ballard MD [address] [place] [address] Assigned Heart and Vascular Provider 12/04/23 documented as of this encounter
--- OUTSIDE RECORDS SUMMARY | 2024-11-24 08:31 | XMS_ITS | Clinical Summary ---
Author Organization [facility] [email or web address] [facility] Address [address] [address] Phone Care Team Providers Care Safemaker Name Role Phone Elsewhere, Pcp Primary Care [...] Treatment Not on [place] [address] Care Teams Safemaker Relationship Specialty Start Date End Date Elsewhere, Pcp PCP - General 12/20/14
--- OUTSIDE RECORDS SUMMARY | 2024-11-24 08:31 | XMS_ITS | Clinical Summary ---
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 458832418 (SNOMED CT) 09/19 Active 09/19 Fredi Worthy MD Neuropathic pain Infarction of basal ganglia Lt 273177351 (SNOMED CT) 09/19 Active 09/19 Fredi Worthy MD Infarction of basal ganglia Vertigo 973533851 (SNOMED CT) 2 Active 2 Fredi Worthy MD Vertigo Sleep apnea 62452033 (SNOMED CT) 09/24 Resolved 09/24 Fredi Worthy MD Sleep apnea New daily persistent headache 949820645249 105 (SNOMED CT) 03/29 Active 03/29 Fredi Worthy MD New daily persistent headache Hypertension, uncontrolled 86661782 (SNOMED CT) 03/29 Active 03/29 Fredi Worthy MD Hypertensive disorder Cardiac arrhythmia 56151805 (SNOMED CT) 09/24 Active 09/24 Armando Granados MD Conduction disorder of the heart Sleep apnea 76902685 (SNOMED CT) 09/24 Removed 09/24 Armando Granados MD Sleep apnea Intracranial vascular stenosis 28743608 (SNOMED CT) 09/24 Active 09/24 Armando Granados MD Cerebral artery occlusion Medications Medication Instructions Start Date Stop Date Generic Name NDC Provider METOPROLOL TARTRATE 25 MG TABS 1/2 tab twice a day metoprolol tartrate 69915039501 Shawna Olverail PA-C ASPIRIN 81 MG TBEC aspirin 15592423452 Shawna Olverail PA-C VITAMIN D3 50 MCG (1999) TABS cholecalciferol (vitamin d3) 99902890450 Shawna Olverail PA-C FUROSEMIDE 20 MG TABS 1 tab twice a week furosemide 72505311741 Shawna Olverail PA-C GABAPENTIN 100 MG CAPS 1 capsule by mouth as directed : 1 cap or 100 mg per night and may increase by 100 mg every 5 night as needed until pain controlled or until 600 mg/night 10/01 gabapentin 33302890567 Shawna Bob PA-C Aspirin once a day as needed 10/01 Aspirin Shawna Olverail PA-C ONDANSETRON 4 MG TBDP every six hours as needed 10/01 ondansetron 83874037759 Shawna Bob PA-C EZETIMIBE 10 MG TABS 10/01 ezetimibe 63954424871 Shawna Olverail PA-C ALPRAZOLAM 0.25 MG TABS 1/2 tab q am and qhs as needed alprazolam 67717146749 Shawna Olverail PA-C TELMISARTAN 20 MG TABS TAKE ONE TABLET BY MOUTH (20MG) TWICE A DAY PT REQUESTING THIS FRUIT GRADING SUPERVISOR FOR THIS 10/01 telmisartan 38683471883 Shawna Bob PA-C DULOXETINE HCL 20 MG CPEP Take 1 capsule by mouth once a day duloxetine 21487810404 Shawna Bob PA-C GABAPENTIN 100 MG CAPS 1 capsule by mouth as directed : 1 to 3 caps 2 times/day during the day time as needed for pain. In addition take 200 mg per night and may increase by 100 mg per night as needed until pain controlled or until 600 mg/night 04/03 gabapentin 44168100130 Fredi Worthy MD GABAPENTIN 100 MG CAPS 1 capsule by mouth as directed : 1 cap or 100 mg per night and may increase by 100 mg every 5 night as needed until pain controlled or until 600 mg/night 10/01 gabapentin 63761326609 Fredi Worthy MD EZETIMIBE 10 MG TABS 10/01 ezetimibe 58414046642 Fredi Worthy MD GABAPENTIN 100 MG CAPS 1 capsule by mouth as directed : 1 to 3 caps 2 times/day during the day time as needed for pain. In addition take 200 mg per night and may increase by 100 mg per night as needed until pain controlled or until 600 mg/night 09/20 gabapentin 95743295344 Fredi Worthy MD AMLODIPINE BESYLATE 2.5 MG TABS once a day 09/19 amlodipine 69455249741 Fredi Worthy MD DIAZEPAM 5 MG TABS three times a day as needed 09/19 diazepam 19159058315 Fredi Worthy MD EPLERENONE 25 MG TABS once a day 09/19 eplerenone 45989454246 Fredi Worthy MD VITAMIN D 50 MCG (1999 [place]) TABS once a day 09/19 cholecalciferol (vitamin d3) 71274829317 Fredi Worthy MD ONDANSETRON 4 MG TBDP every six hours as needed 10/01 ondansetron 71899094159 Fredi Worthy MD FLUTICASONE PROPIONATE 50 MCG/ACT SUSP twice a day as needed 09/19 fluticasone propionate 08981754844 Fredi Worthy MD MECLIZINE HCL 12.5 MG TABS every eight hours as needed 09/19 meclizine 35362194921 Fredi Worthy MD ALPRAZOLAM 0.25 MG TABS Bedtime 10/01 alprazolam 92321832825 Fredi Worthy MD DILTIAZEM HCL 30 MG TABS twice a day 09/19 diltiazem hcl 47912200079 Fredi Worthy MD Aspirin once a day as needed 10/01 Aspirin Fredi Worthy MD COENZYME Q10 10 MG CAPS Discontinued 09/19 coenzyme q10 30797652118 Fredi Worthy MD NITROGLYCERIN 0.4 MG SUBL 5 mg as needed nitroglycerin 99967915766 Fredi Worthy MD FUROSEMIDE 20 MG TABS three times a day 09/19 furosemide 88931930986 Fredi Worthy MD METOPROLOL TARTRATE 25 MG TABS 10/02 metoprolol tartrate 57743627828 Fredi Worthy MD TELMISARTAN 20 MG TABS TAKE ONE TABLET BY MOUTH (20MG) TWICE A DAY PT REQUESTING THIS FRUIT GRADING SUPERVISOR FOR THIS 10/01 telmisartan 95243988044 Fredi Worthy MD ONDANSETRON 4 MG TBDP Every 6 Hours as needed 11/24 Ondansetron Hcl 74675749942 System Maintenance NITROGLYCERIN 0.4 MG SUBL Every 5 Minutes X 3 as needed 09/19 Nitroglycerin 82513432889 System Maintenance MECLIZINE HCL 12.5 MG TABS Every 8 Hours as needed 09/19 Meclizine Hcl 53849150839 System Maintenance FUROSEMIDE 20 MG TABS 3XWK 09/19 Furosemide 38421628517 System Maintenance FLUTICASONE PROPIONATE 50 MCG/ACT SUSP Twice A Day as needed 09/20 Fluticasone Propionate (Nasal) 36926054847 System Maintenance EPLERENONE 25 MG TABS Daily 09/20 Eplerenone 54017190182 System Maintenance DILTIAZEM HCL 30 MG TABS Twice A Day 09/20 Diltiazem Hcl 31978072831 System Maintenance DIAZEPAM 5 MG TABS Three Times A Day as needed 09/20 Diazepam 89677964321 System Maintenance COENZYME Q10 10 MG CAPS Discontinued 09/19 Coenzyme Q10 (Ubidecarenone) 92529349861 System Maintenance VITAMIN D 50 MCG (1999) TABS Daily 09/19 Cholecalciferol 88872518597 System Maintenance Aspirin Daily as needed 09/19 Aspirin 12342935111 System Maintenance AMLODIPINE BESYLATE 2.5 MG TABS Daily 09/20 Amlodipine Besylate 05025424470 System Maintenance ALPRAZOLAM 0.25 MG TABS Bedtime 09/19 Alprazolam 46261903704 System Maintenance Medications Administered No information available. Allergies, Adverse Reactions, Alerts Allergy Name Reaction Description Start Date Severity Status Provider Verapamil Mild Active Armando Granados MD Rosuvastatin Mild Active Invernessphuc Granados MD Penicillin v Mild Active Inverness E Roberta MAURICE Morphine Mild Active Armando E Roberta MAURICE Metronidazole Mild Active Armandophuc Granados MD Metoprolol Mild Active Invernessphuc Granados MD Methyldopa Mild Active Invernessphuc Granados MD Losartan Mild Active Armandophuc Granados MD Lorazepam Mild Active Armando E Roberta MAURICE Lisinopril Mild Active Inverness E Roberta MAURICE Latex Mild Active Armando E Roberta MAURICE Lactose Mild Active Inverness E Roberta MAURICE Labetalol Mild Active Armandophuc Granados MD Hydrocodone Mild Active Invernessphuc Granados MD Hydrochlorothiazide Mild Active Invernessphuc Granados MD Hydralazine Mild Active Armandophuc Granados MD Diltiazem Mild Active Armando E Roberta MAURICE Atorvastatin Mild Active Invernessphuc Granados MD Acetaminophen Mild Active Armando E Roberta MAURICE <originalText>Sulfa drugs<reference value=#allergy-21/></o Mild Active Rup ert Dion Granados MD <originalText>Milk derivatives<reference value=#allergy-23 Moderate Active Armandophuc Granados MD <originalText>Lobster<refe rence value=#allergy-1/></orig in Moderate Active Invernessphuc Granados MD <originalText>Beta Adrenergic Blockers<reference value=#all Mild Active Armando Granados MD Results Date Name Value Unit Range Flag Description Office Visit: 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 smoking status Internal Other: Authorizatio n - [...] and emergency contact Office Visit: Office Visit f ax MEDS REVIEW Done Documenta tion of current medications (procedure) Plan of Care Type Date Detail Appointment 11:00 AM [facility] [employer], [employer], [place], [address], Appointment 11:30 AM [facility] [employer], [address], [place], [address], Appointment 10:00 AM Shawna Bob PA-C, [facility] [employer], [address], [place], [address], Pending order Follow up Pending order Follow up with N eurologist or TIMMY Pending order Follow up with N eurologist or TIMMY Pending order Follow up Pending order MRA-Neck W/WO Pending order MRA-Head W/O Pending order MRA-Head W/O Pending order MRA-Neck W/WO Pending order Patient Instruct ions Pending order Follow up TIMMY Pending order [...] TIMMY Pending order MRA-Neck W/WO Pending order MRA-Neck W/WO Pending Order exclud ed from report: Pending order Follow up in [facility]i [facility] or telemedicine with provider or TIMMY Pending Order exclud ed from report: Pending order MRA-Neck W/WO Pending order Patient Instruct ions Procedures Code Procedure Name Date Entry Date ORDERS Follow up TIMMY ORDERS Patient Instructions [facility]-[id number] Documentation of current medicatio ns ORDERS Follow up with Neurologist or TIMMY ORDERS Instructions for Staff 04/03 [facility]-[id number] Documentation of current medicatio ns ORDERS Patient Instructions ORDERS Follow up in clinic or telemedicine with provider or TIMMY [id number] MRA-Neck W/WO ORDERS Follow up in clinic or telemedicine with provider or TIMMY ORDERS Patient Instructions [facility]-[id number] Documentation of current medicatio ns [facility]-[id number] Documentation of current medicatio ns Vital Signs Date Name Value Unit Description Height 145 [in_us] height E&M Heart Rate 66 /min pulse rate BP Diastolic 115 mm[Hg] blood pressu re, diastolic BP Systolic 209 mm[Hg] blood pressur e, systolic BMI (Body Mass Index) 2.06 kg/m2 Bod y Mass Index (Ratio) Weight Measured 61.5 [lb_av] weight E& M Weight Measured 61.5 [lb_av] weight E& M Immunizations No information available. Advance Directives No information available.
--- OUTSIDE RECORDS SUMMARY | 2024-11-24 08:31 | XMS_ITS | Clinical Summary ---
Author Organization [facility] Address [address] [place] [id number] Care Team Providers Care Air Defense Control Officer Name Role Phone Kyra Perera Primary Care Provider Angel Hollins MD Unavailable Petra Dorado Unavailable [phone] Angel Hollins MD Unavailable Yves Ballard MD Unavailable [phone] Allergies Active Allergy Reactions Criticality Noted Date Comments Abdias Inhibitors 06/13/2024 Amlodipine Palpitations Low 03/03/2020 Atorvastatin Muscle Pain (Myalgia) 10/28/2010 Other reaction(s): Myalgia Caused myalgias. Caused myalgias. Caused myalgias. Caused myalgias. Other reaction(s): Myalgia Caused myalgias. Caused myalgias. Caused myalgias. Caused myalgias. Chlorthalidone Shortness Of Breath High 03/03/2020 Clonidine Shortness Of Breath High 03/04/2020 Diltiazem Anxiety Low 05/12/2011 Doxazosin Other (See Comments) 05/21/2020 Bleeding Other Reaction(s): Bleeding Nose bleeding, tried twice for 3 days and happened both times Ezetimibe Other (See Comments) 05/24/2024 Pins and needles feeling all over her body, swollen throat, muscle pain Gabapentin Shortness Of Breath High 11/09/2023 Hydralazine 05/12/2011 Other reaction(s): Tachycardia Other Reaction(s): Tachycardia Hydrochlorothiazide Other (See Comments) 09/26/2007 ? asthma ? asthma ? asthma ? asthma Hydrocodone-Acetaminophen Nausea and Vomiting 1 05/01/2011 Isosorbide Palpitations Low 04/07/2020 Isosorbide Nitrate Headache 01/27/2024 Labetalol Shortness Of Breath High 05/05/2011 Lactose 02/18/2009 Other reaction(s): Intolerance-Can't Take Flu-like symptoms Other Reaction(s): Intolerance-Can't Take Flu-like symptoms Other reaction(s): Intolerance-Can't Take Flu-like symptoms Latex Other (See Comments) 06/15/2016 Lisinopril 11/30/2007 Other reaction(s): Chest Pain Other Reaction(s): Chest Pain Lorazepam Other (See Comments) 03/26/2010 Pt reports depression Pt reports depression Pt reports depression Pt reports depression Losartan Shortness Of Breath High 12/01/2010 Noted dyspnea Noted dyspnea Noted dyspnea Pregabalin Shortness Of Breath High 11/09/2023 Methyldopa Rash Low 06/13/2011 Metoprolol Shortness Of Breath High 12/01/2010 Possible dyspnea. Possible dyspnea. Possible dyspnea. Possible dyspnea. Possible dyspnea. Morphine Anaphylaxis High 05/22/2006 Olmesartan Dizziness 03/18/2022 vertigo Other Drug Allergy (See Comments) Other (See Comments) 03/20/2013 got sick from it Penicillins Swelling,Angioedema Low 05/22/2006 Other reaction(s): Angioedema, Angioedema Propafenone Shortness Of Breath High 11/09/2023 Propranolol Anxiety,Headache Low 01/03/2023 Rosuvastatin Muscle Pain (Myalgia) 10/28/2010 Other reaction(s): Myalgia Caused myalgias. Caused myalgias. Caused myalgias. Caused myalgias. Other reaction(s): Myalgia Caused myalgias. Caused myalgias. Caused myalgias. Caused myalgias. Shellfish Allergy Angioedema High 05/11/2010 Had severe pain and swelling after lobster Other reaction(s): Angioedema Had severe pain and swelling after lobster Shellfish-Derived Products Angioedema High 1 Other reaction(s): Angioedema Had severe [...] to ER when she ate lobster Sulfa Antibiotics Hives High 05/22/2006 Verapamil [...] call 911. Active Vitamin D3 (VITAMIN D, CHOLECALCIFERO L,) 25 mcg (1000 units) tablet Take 1 tablet by mouth daily. Active acetaminophen (TYLENOL) 325 MG tabletIndicati ons:Right upper quadrant abdominal pain Take 2 tablets (650 mg) by mouth every 4 hours as needed for mild pain or other (and adjunct with moderate or severe pain or per patient request) 4 Active aspirin 81 MG EC tabletIndicati ons:Right upper quadrant abdominal pain Take 1 tablet (81 mg) by mouth daily 4 Active famotidine (PEPCID) 20 MG tablet Take 20 mg by mouth daily as needed. Active furosemide (LASIX) 20 MG tablet Take 20 mg by mouth twice a week. Active metoprolol tartrate (LOPRESSOR) 25 MG tablet Take 12.5 mg by mouth 2 times daily. Active alirocumab (PRALUENT) 75 MG/ML injectable penIndications :Hyperlipidemi a LDL goal <70,Statin intolerance,El evated lipoprotein(a) Inject 1 mL (75 mg) subcutaneously every 14 days. 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 Gender Identity Not on file Sexual Orientation Not on file Last Filed Vital Signs Vital Sign Reading Time Taken Comments Blood Pressure 172/93 06/13/2024 11:33 AM CDT Pulse 83 06/13/2024 11:33 AM CDT Temperature 36.8 C (98.3 F) 01/28/2024 10:37 AM FIELD PIPELINES SUPERVISOR Respiratory Rate 20 01/28/2024 10:37 AM FIELD PIPELINES SUPERVISOR Oxygen Saturation 97% 06/13/2024 11:33 AM CDT Inhaled Oxygen Concentration - - Weight 62.6 kg (138 lb) 06/13/2024 11:33 AM CDT Height 157.5 cm (5' 2) 01/27/2024 10:05 PM FIELD PIPELINES SUPERVISOR Body Mass Index 25.24 01/27/2024 10:05 PM FIELD PIPELINES SUPERVISOR Plan of Treatment Health Maintenance Due Date Last Done Comments ADVANCE CARE PLANNING 1950 ANNUAL REVIEW OF HM ORDERS 1950 CT COLONOGRAPHY 1950 DEXA 1950 FIT 1950 FLEX SIG 1950 MICROALBUMIN 1950 sDNA (Cologuard) 1950 PNEUMOCOCCAL VACCINE 50+ YEARS (1 of 1 - PCV) 2000 ZOSTER VACCINE (1 of 2) 2000 RSV VACCINE (1 - Risk 60-74 years 1-dose series) 2010 PHQ-2 (once per calendar year) 2024 10/17/2023, 07/25/2023 COVID-19 VACCINE (3 - season) 2024 03/16/2021, 05/23/2020 INFLUENZA VACCINE (#1) 2024 MEDICARE ANNUAL WELLNESS VISIT 11/21/2024 11/22/2023, 01/21/2022, 01/19/2021, Additional history exists BMP 02/19/2025 02/20/2024, 01/11, 09/27/2023, Additional history exists LIPID 02/19/2025 02/20/2024, 01/27/2024 FALL RISK ASSESSMENT 06/13/2025 06/13/2024 MAMMO SCREENING 10/08/2025 10/09/2023, 09/11, 12/08/2021, Additional history exists DIABETES SCREENING 02/19/2027 02/20/2024, 1 03/28/2023, 01/27/2024, Additional history exists DTAP/TDAP/TD VACCINE (3 - Td or Tdap) 11/09/2027 11/08/2017, 05/30/2007 COLONOSCOPY 10/10/2032 10/10/2022 COLORECTAL CANCER SCREENING 10/10/2032 HEPATITIS C SCREENING Completed 02/09/2016 URINALYSIS Completed 09/27/2023, 08/27/2023 HPV VACCINE (No Doses Required) Completed MENINGITIS VACCINE Aged Out No longer eligible based on patient's age to complete this topic Procedures Procedure Name Priority Date/Time Associated Diagnosis Comments LIPID REFLEX TO DIRECT LDL PANEL Routine 02/20/2024 8:29 AM FIELD PIPELINES SUPERVISOR Hyperlipidemia LDL goal <70 COMPREHENSIVE METABOLIC PANEL Routine 02/20/2024 8:29 AM FIELD PIPELINES SUPERVISOR Hyperlipidemia LDL goal <70 ROUTINE UA WITH MICROSCOPIC REFLEX TO CULTURE STAT 09/27/2023 8:59 PM CDT from Last 3 Months or Most Recently Relevant to Health Maintenance Results * (ABNORMAL) Lipid panel reflex to direct LDL Fasting (02/20/2024 8:29 AM FIELD PIPELINES SUPERVISOR) Cholesterol 237(H) <200 mg/dL 02/20/2024 4:11 PM FIELD PIPELINES SUPERVISOR [facility] Triglycerides 208(H) <150 mg/dL 02/20/2024 4:11 PM FIELD PIPELINES SUPERVISOR [facility] Direct Measure HDL 47(L) >=50 mg/dL 02/20/2024 4:11 PM FIELD PIPELINES SUPERVISOR [facility] LDL Cholesterol Calculated 148(H) <100 mg/dL 02/20/2024 4:11 PM FIELD PIPELINES SUPERVISOR [facility] Non HDL Cholesterol 190(H) <130 mg/dL 02/20/2024 4:11 PM FIELD PIPELINES SUPERVISOR [facility] Patient Fasting > 8hrs? Yes 02/20/2024 4:11 PM FIELD PIPELINES SUPERVISOR [facility] Blood BLOOD SPECIMEN / Unknown Venipuncture / Unknown 02/20/2024 8:29 AM FIELD PIPELINES SUPERVISOR 02/20/2024 8:29 AM FIELD PIPELINES SUPERVISOR Narrative [facility] - 02/20/2024 4:11 PM FIELD PIPELINES SUPERVISOR Cholesterol Desirable: < 200 mg/dL Borderline High: [...] BLOOD ORDERABL ES Final Result [facility] [place] [facility] [address] [facility], [address] [phone] * (ABNORMAL) Comprehensive metabolic panel (02/20/2024 8:29 AM FIELD PIPELINES SUPERVISOR) Sodium 142 135 - 145 mmol/L 02/20/2024 4:11 PM FIELD PIPELINES SUPERVISOR [facility] Potassium 4.5 3.4 - 5.3 mmol/L 02/20/2024 4:11 PM FIELD PIPELINES SUPERVISOR [facility] Carbon Dioxide (CO2) 26 22 - 29 mmol/L 02/20/2024 4:11 PM FIELD PIPELINES SUPERVISOR [facility] Anion Gap 11 7 - 15 mmol/L 02/20/2024 4:11 PM FIELD PIPELINES SUPERVISOR [facility] Urea Nitrogen 16.2 8.0 - 23.0 mg/dL 02/20/2024 4:11 PM FIELD PIPELINES SUPERVISOR [facility] Creatinine 0.69 0.51 - 0.95 mg/dL 02/20/2024 4:11 PM FIELD PIPELINES SUPERVISOR [facility] GFR Estimate >90 >60 mL/min/1.7 3m2 02/20/2024 4:11 PM FIELD PIPELINES SUPERVISOR [facility] Comment:eGFR calculated usin 2020 CKD-EPI equation. Calcium 9.8 8.8 - 10.4 mg/dL 02/20/2024 4:11 PM FIELD PIPELINES SUPERVISOR [facility] Comment:Reference intervals for this test were updated on 09/26/2023 to reflect our healthy population more accurately. There may be differences in the flagging of prior results with similar values performed with this method. Those prior results can be interpreted in the context of the updated reference intervals. Chloride 105 98 - 107 mmol/L 02/20/2024 4:11 PM FIELD PIPELINES SUPERVISOR [facility] Glucose 103(H) 70 - 99 mg/dL 02/20/2024 4:11 PM FIELD PIPELINES SUPERVISOR [facility] Alkaline Phosphatase 81 40 - 150 U/L 02/20/2024 4:11 PM FIELD PIPELINES SUPERVISOR [facility] AST 26 0 - 45 U/L 02/20/2024 4:11 PM FIELD PIPELINES SUPERVISOR [facility] ALT 23 0 - 50 U/L 02/20/2024 4:11 PM FIELD PIPELINES SUPERVISOR [facility] Protein Total 7.2 6.4 - 8.3 g/dL 02/20/2024 4:11 PM FIELD PIPELINES SUPERVISOR [facility] Albumin 4.4 3.5 - 5.2 g/dL 02/20/2024 4:11 PM FIELD PIPELINES SUPERVISOR [facility] Bilirubin Total 0.4 <=1.2 mg/dL 02/20/2024 4:11 PM FIELD PIPELINES SUPERVISOR [facility] Patient Fasting > 8hrs? Yes 02/20/2024 4:11 PM FIELD PIPELINES SUPERVISOR [facility] Blood BLOOD SPECIMEN / Unknown Venipuncture / Unknown 02/20/2024 8:29 AM FIELD PIPELINES SUPERVISOR 02/20/2024 8:29 AM FIELD PIPELINES SUPERVISOR us Yves Ballard MD LAB - BLOOD ORDERABL ES Final Result [facility] [place] [facility] [address] [facility], [address] [place] [phone] * (ABNORMAL) UA with Microscopic reflex [...] 09/27/2023 9:15 PM CDT [facility] [place] Urine 1.013 1.003 - 1.035 09/27/2023 9:15 [...] LAB - URINE ORDERABLES Final Result [facility]ATORY [facility] [address] (1st floor, no room number) [place] [address], [facility] from Last 3 Months or Most Recently Relevant to Health Maintenance Insurance MEDICARE [facility] BLUE MEDICARE [facility] BL[facility] Advance Directives For more information, please contact: [phone] * Full Code (Latest Code Status on [...] patie nt/ legal decision maker Care Teams Air Defense Control Officer Relationship Specialty Start Date End Date Kyra Perera [address] [place] [address] PCP - General Physician Design Engineering Manager 03/31/22 Angel Hollins MD [address] [place] [id number] Neurology 07/20/23 Petra Dorado PA [address] [address] Physician Design Engineering Manager Physical Medicine and Rehabilitation 07/20/23 Angel Hollins MD [address] [address] Assigned Neuroscience Provider 08/03/23 Yves Ballard MD [address] [place] [id number] Assigned Heart and Vascular Provider 12/04/23
--- OUTSIDE RECORDS SUMMARY | 2024-11-24 08:31 | XMS_ITS | Clinical Summary ---
Author Organization [facility] Address [address] [place] [address] Care Team Providers Care Business Development Agent Name Role Phone Bettye Davis MD Primary [...] for each transition of care or referral. [employer] Allergies Active Allergy Reactions Criticality Noted Date [...] 12/08/2022 12/08/2021, 01/05/2012 COVID-19 Vaccine (2 - 2024-2 6 season) 2024 05/23/2020 Influenza Vaccine (#1) 2024 RSV Vaccine (1 - 1-dose 75+ series) [...] patient's age to complete this topic Insurance MEDICARE MANAGED CARE BC [facility] BL[facility] Care Teams Business Development Agent Relationship Specialty Start Date End Date Bettye Davis MD [address] [place] [address] PCP - General 06/13/10
--- OUTSIDE RECORDS SUMMARY | 2024-11-24 08:32 | XMS_ITS | Clinical Summary ---
Author Organization [facility] Address [address] [place] [id number] Care Team Providers Care Field Servicer Name Role Phone Kyra Perera Primary Care Provider Genaro Leonard MD Unavailable [phone] Janay Nunez MD Unavailable Carolyn Pisano Unavailable [...] Comment Field 03/20/2013 got sick from it Gabapentin Dyspnea High 11/09/2023 Hydralazine Tachycardia 05/12/2011 Other reaction(s): Tachycardia Hydrochlorothiazide Other - Describe In Comment Field 09/26/2007 ? asthma ? asthma ? asthma Isosorbide Palpitations 04/07/2020 Labetalol Dyspnea High 05/05/2011 Lactose Intolerance-Can't Take 02/18/2009 Flu-like symptoms Other reaction(s): Intolerance-Can't Take Flu-like symptoms Latex Other - Describe In Comment Field 06/15/2016 Patient is unsure about this allergy Lisinopril Chest Pain 11/30/2007 Other reaction(s): Chest [...] Angioedema Low 05/22/2006 Other reaction(s): Angioedema, Angioedema Pregabalin Dyspnea High 11/09/2023 Propafenone Dyspnea High 11/09/2023 Propranolol Headache 01/03/2023 Rosuvastatin Myalgia 10/28/2010 Caused [...] aspirin (ECOTRIN) 81 mg enteric coated tablet 81 mg once daily with a meal. Daily 0 01/10/20 17 Active meclizine (ANTIVERT) 25 mg tabletIndications :Vertigo Take 1 tablet by mouth 3 times daily if needed. 30 tablet 1 08/15/19 19 Active ondansetron (ZOFRAN ODT) 4 mg disintegrating tabletIndications :Nausea DISSOLVE 1 TABLET ON TONGUE EVERY 6 HOURS NEEDED FOR VOMITING 30 Tablet 2 01/20/20 21 Active cholecalciferol (Vitamin D-3) 2,000 unit capsuleIndication s:Vitamin D deficiency Take 2 Capsules (4,000 units) by mouth once daily. 0 10/06/19 22 Active fluticasone (50 mcg per actuation) nasal solution (FLONASE)Indicati ons:Acute non-recurrent maxillary sinusitis INHALE 1-2 SPRAYS IN EACH NOSTRIL BY INTRANASAL ROUTE ONCE DAILY. 48 g 3 02/16/20 23 Active durable medical equipment (DME)Indications: Lymphedema Edema glove for daily use 2 Each 10/09/19 24 Active nitroglycerin (NITROSTAT) 0.4 mg sublingual tabletIndications :Chest pain in adult Place 1 Tablet (0.4 mg) under the tongue every 5 minutes if needed for Chest Pain. Patient tolerated in the past. 25 Tablet 5 02/21/20 24 Active famotidine (Pepcid AC) 10 mg tabletIndications :Mast cell activation syndrome (HC) Take 1 Tablet (10 mg) by mouth once daily if needed for GI Upset. 07/04/19 25 Active diazePAM 2 mg tabletIndications :Muscle spasm Take 1-2 tabs twice daily as needed. 20 Tablet 07/10/19 25 Active magic mouthwash 1:1:1 (diphen 12.5mg/5mL-lidoca ine 2%-maalox [phone]/5ml) (AMB MIX)Indications:M outh sores Swish and spit 5-10 mL by mouth 4 times daily if needed for Mouth Sores. 240 mL 1 07/24/19 25 Active phytosterol/pante thine (CHOLESTOFF COMPLETE ORAL) Take 1 Capsule by mouth two times daily. Active ALPRAZolam 0.25 mg tabletIndications :Anxiety state TAKE ONE-HALF TABLET BY MOUTH THREE TIMES DAILY NEEDED 60 Tablet 5 09/10/19 25 Active furosemide 20 mg tabletIndications :Hypertension, unspecified type Take 1 tab every other morning. 45 Tablet 3 09/10/19 25 Active metoprolol tartrate (LOPRESSOR) 25 mg tabletIndications :Palpitations,Hyp ertension,Hyperte nsion, unspecified type Take 1 Tablet (25 mg) by mouth two times daily. 180 Tablet 1 10/02/19 25 Active coenzyme q10 100 mg capIndications:Hy perlipidemia, unspecified hyperlipidemia type Take 1 Capsule (100 mg) by mouth two times daily. 10/02/19 25 Active hydrocortisone (ANUSOL-HC) 2.5 % rectal creamIndications: Hemorrhoids, internal Apply topically to affected area(s) three times daily. 28 g 1 10/29/19 25 Active diclofenac topical (VOLTAREN) 1 % gelIndications:Pa in of right scapula Apply 2 g topically to affected area(s) four times daily. 50 g 11/05/19 25 Active naproxen (ALEVE) 220 mg tabletIndications :Acute right-sided back pain, unspecified back location Take 1 Tablet (220 mg) by mouth two times daily with meals. 10 Tablet 11/06/19 25 Active hydrocortisone (ANUSOL-HC SUPPOSITORY) 25 mg suppositoryIndica tions:Hemorrhoids , internal Insert 1 Suppository (25 mg) rectally two times daily. 24 Suppository 1 10/23/19 25 025 Disconti nued(*Av ailabili ty/Sivau oma change/C ost of medicati on) Active Problems Problem Noted Date Diagnosed Date Essential hypertension 07/03/2024 Hemiparesis affecting domina nt side as late [...] Encounters Date Type Department Care Team Description 11/19/2024 Orders Only [facility] Scanner 1 scan: (1-Ord) RC 11/15/2024 9:00 AM CDT Office Visit [facility] [address] [place] [address] Keo Escobar MD Consult (Rt shoulder x 3 week) 11/15/2024 Travel 11/04/2024 4:30 PM CDT Ancillary Procedure [facility] [address] [place] [address] 11/04/2024 4:15 PM CDT Ancillary Procedure [facility] [address] [place] [address] 11/04/2024 3:25 PM CDT Office Visit [facility] [address] [place] [address] Monica Buckner, Back Pain (R shoulder blade pain x1.5 week ) 11/04/2024 Travel 10/24/2024 Telephone [facility] [address] [place] [address] Kyra Perera PA Prior Authorization (hydrocortisone (ANUSOL-HC SUPPOSITORY) 25 mg suppository - EXCLUDED) 10/22/2024 8:10 AM CDT Office Visit [facility] [address] [place] [address] Kyra Perera PA Results (Had heart scan - hasn't heard results); Lab (Lab work?); Concerns (Lower abd swelling); Medication Management (Was put on crestor and having side effects); Musculoskeletal Problem 10/22/2024 Travel 10/11/2024 8:30 AM CDT Ancillary Procedure [facility] [address] [facility] [address] [place] [address] 10/11/2024 Travel 10/02/2024 Transcribe Orders [facility] [address] [facility] [address] [place] [address] Self, Referral 10/01/2024 1:00 PM CDT [facility] [address] [facility] [address] [place] [address] Junito Greer MD CV Preventive Cardiology New (Initial visit (dyslipidemia) Hx of statin intolerance) 10/01/2024 Travel 09/09/2024 11:30 AM CDT Office Visit [facility] [address] [place] [address] Kyra Perera PA Follow Up (Face has been feeling numb, feeling like she's going to pass out. / Severe ringing in ears. ) 09/09/2024 Telephone [facility] [address] [place] [address] Kyra Perera PA Pharmacist Medication Management (Clarification of directions furosemide metoprolol) 09/09/2024 Travel 09/04/2024 10:00 AM CDT Office Visit [facility] [address] [place] [address] Keo Escobar MD Musculoskeletal Problem (Follow up neck and right arm pain) 09/03/2024 1:30 PM CDT Office Visit [facility] [address] [facility] [address] [place] [address] Janay Nunez MD Follow Up (FOLLOW UP, DX: Palpitations [R00.2]; Hypertension [I10]; LVH (left ventricular hypertrophy) [I51.7]; Cardiomyopathy, unspecified type (HC) [I42.9]; Paroxysmal SVT (supraventricular tachycardia) (HC) [I47.10]//Pt denies current cardiac sx/Pt wants to discuss metoprolol) 09/03/2024 Telephone [facility] [address] [place] [phone] Janay Nunez MD Medication Management (PCSK9 Inhibitor) 09/03/2024 Travel from Last 3 Months Immunizations Immunization [...] 6 Hyperlipidemia Brother 7 Other Father d54 [place], liver e tom Cancer-breast Maternal Aunt Other [...] is your housing situation today? 1 04/16/2024 Interpersonal Safety Answer Date Record ed Are you being hit, kicked, p ushed or yelled at (see row info)? No 07/03/2024 Interpersonal Safety Abuse 12 - 18 Not on file 07/03/2024 Interpersonal Safety Ambulatory Vulnerability No t on file 07/03/2024 Utilities Answer Date Recorded Do you have trouble paying f or utilities (for example, heat, electricity, water, phone)? 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 Gender Identity Not on file Sexual Orientation Not on file Obstetrics History Last Filed Vital Signs Vital Sign Reading Time Taken Comments Blood Pressure 147/81 11/15/2024 9:40 AM CDT Pulse 77 11/15/2024 9:06 AM CDT Temperature 37.3 C (99.2 F) 09/04/2024 10:11 AM CDT Respiratory Rate 14 07/03/2024 3:45 PM CDT Oxygen Saturation 98% 11/15/2024 9:06 AM CDT Inhaled Oxygen Concentration - - Weight 63.6 kg (140 lb 3.2 oz) 11/15/2024 9:06 A M CDT Height 157.5 cm (5' 2) 11/15/2024 9:06 AM CDT Body Mass Index 25.64 11/15/2024 9:06 AM CDT Plan of Treatment Upcoming Encounters Date Type Department Care Team (Late st Contact Info) Description 11/26/2024 8:00 AM CDT Ancillary Procedure [facility] [address] [place] [address] 11/26/2024 8:30 AM CDT Office Visit [facility] [address] [place] [address] Kyra Perera PA [address] [place] [address] 12/09/2024 11:00 AM CDT Office Visit [facility] [address] [place] [address] [address] [place] [address] 12/26/2024 11:30 AM CDT Office Visit [facility] [place] [address] [facility] [address] [place] [address] Janay Nunez MD [address] [facility] [address] [place] [address] 01/16/2025 11:00 AM FIELD MAP EDITOR Office Visit [facility] [address] [place] [address] Keo Escobar MD [address] [place] [address] Health Maintenance Due Date Last Done Comments Pneumococcal series for age 50+ (1 of 2 - PCV) 1969 Zoster (shingles) series for age 50+ (1 of 2) 2000 RSV vaccine for adults or (1 - Risk 60-74 years 1-dose series) 2010 DEXA/DXA scan for age 65+ 06/21/2015 Mammogram for age 45-75 10/08/2024 10/09/19 24, 12/08/2021, 12/31/2020, Additional history exists COVID-19 vaccine series (3 - season) 2024 03/16/2021, 05/23/2020 Influenza Vaccine (#1) 2024 Depression screening for age 12+ 11/21/2024 11/22/2023, 09/08/2023, 01/21/2022, Additional history exists Medicare Wellness for age 65+ 11/22/2024 11/22/2023, 01/21/2022, 01/19/2021, Additional history exists BMI (ht and wt on same day) for age 18+ 11/15/2025 11/15/2024, 10/01/2024, 09/03/2024, Additional history exists Tetanus booster 11/09/2027 11/08/2017, 05/30/2007 Lipids for age 45-75 06/24/2029 06/24/2024, 05/16/2024, 04/11/2024, Additional history exists Colonoscopy through age 75 10/10/203210/10, 10/10/2022, 10/10/2022, Additional history exists Hepatitis C screening for age 18-79 Completed 02/09/2016 Hepatitis B series for 19+ Aged Out N o longer eligible based on patient's age to complete this topic Procedures Procedure Name Priority Date/Time Associated Diagnosis Comments SCAN-EYE EXAM 11/19/2024 12:00 AM CDT XR SCAPULA RIGHT Routine 11/04/2024 4:25 PM CDT Pain of right scapula XR RIBS RIGHT AND PA CHEST MINIMUM 3 VIEWS Routine 11/04/2024 4:25 PM CDT Pain of right scapula CT CARDIAC CALCIUM SCORE ONLY WO SINGLE READ Routine 10/11/2024 9:00 AM CDT Screening for cardiovascular condition LIPID PANEL W REFLEX MEASURED LDL Routine 06/24/2024 9:03 AM CDT Palpitations Hypertension LVH (left ventricular hypertrophy) Cardiomyopathy, unspecified type (HC) Paroxysmal SVT (supraventricular tachycardia) (HC) XR MAMMO ALEENA BILAT SCREEN Routine 10/09/2023 3:57 PM CDT Visit for screening mammogram COLONOSCOPY SCREENING Routine 10/10/2022 12:00 AM CDT Screen for colon cancer ANTI HCV Routine 02/09/2016 10:00 AM FIELD MAP EDITOR Need for hepatitis C screening test from Last 3 Months or Most Recently Relevant to Health Maintenance Results * SCAN-EYE EXAM (11/19/2024 12:00 AM CDT) us Scanner OTHER Final Result * XR SCAPULA RIGHT (11/04/2024 4:25 PM CDT) Anatomical Region Laterality Modality SCAPULA Computed Radiogr aphy 11/05/2024 1:06 PM CDT Narrative 11/05/2024 1:06 PM CDT For Patients: As a result of the Cures Act, medical imaging exams and procedure reports are released immediately into your electronic medical record. You may view this report before your referring provider. If you have questions, please contact your health care provider. Indication: Right scapular pain Technique: Two views right scapula Comparison: None Findings: Narrowing and spurring at the acromioclavicular joint. Absence of the right 1st rib. No fracture. Osteopenia. Impression: Acromioclavicular degenerative joint disease. Dictated by Iván Luu MD @ 11/05/2024 1:06:03 PM (Electronically Signed) Procedure Note Iván Luu MD - 11/05/2024 For Patients: As a result of the Cures Act, medical imagingexams and procedure reports are released immediately into your electronicmedical record. You may view this report before your referring provider.If you have questions, please contact your health care provider. Indication: Right scapular pain Technique: Two views right scapula Comparison: None Findings: Narrowing and spurring at the acromioclavicular joint. Absence of theright 1st rib. No fracture. Osteopenia. Impression: Acromioclavicular degenerative joint disease. Dictated by Iván Luu MD @ 11/05/2024 1:06:03 PM (Electronically Signed) us Monica Ghotraqra DO GENERAL IMAGING Final Result * XR RIBS RIGHT AND PA CHEST MINIMUM 3 VIEWS (11/04/2024 4:25 PM CDT) Anatomical Region Laterality Modality RIBS, RIBS R, CHEST Computed Rad iography 11/05/2024 1:05 PM CDT Impressions 11/05/2024 1:05 PM CDT No acute cardiopulmonary disease. No acute rib pathology. Absence of the right 1st rib. Dictated by Iván Luu MD @ 11/05/2024 1:05:09 PM (Electronically Signed) Narrative 11/05/2024 1:05 PM CDT For Patients: As a result of the Cures Act, medical imaging exams and procedure reports are released immediately into your electronic medical record. You may view this report before your referring provider. If you have questions, please contact your health care provider. INDICATION: Pain of right scapula COMPARISON: Chest x-ray 07/26/2014, CT chest 05/01/2018 TECHNIQUE: PA chest and right ribs. FINDINGS: The lungs are clear. There is no evidence of pulmonary contusion, pneumothorax or pleural effusion. The heart and pulmonary vessels are of normal size. Oblique detail views of the ribs demonstrate no evidence of fracture or intrinsic bone lesion. There is no evidence of pleural hematoma. Postop changes of right 1st rib resection. Procedure Note Iván Luu MD - 11/05/2024 For Patients: As a result of the Cures Act, medical imagingexams and procedure reports are released immediately into your electronicmedical record. You may view this report before your referring provider.If you have questions, please contact your health care provider. INDICATION: Pain of right scapula COMPARISON: Chest x-ray 07/26/2014, CT chest 05/01/2018 TECHNIQUE: PA chest and right ribs. FINDINGS: The lungs are clear. There is no evidence of pulmonary contusion,pneumothorax or pleural effusion. The heart and pulmonary vessels are ofnormal size. Oblique detail views of the ribs demonstrate no evidence offracture or intrinsic bone lesion. There is no evidence of pleuralhematoma. Postop changes of right 1st rib resection. IMPRESSION: No acute cardiopulmonary disease. No acute rib pathology. Absence of theright 1st rib. Dictated by Iván Luu MD @ 11/05/2024 1:05:09 PM (Electronically Signed) Monica Buckner DO GENERAL IMAGING Final Result * CT CARDIAC CALCIUM SCORE ONLY WO SINGLE READ (10/11/2024 9:00 AM CDT) Anatomical Region Laterality Modality Computed Tomogra phy Impressions 10/13/2024 8:14 PM CDT Normal caliber thoracic aorta. The heart size is normal. Visualized lungs are clear. Please note that all CT scans at this facility use dose modulation, iterative reconstruction and/or weight-based dosing when appropriate to reduce radiation dose to as low as reasonably achievable. Sarah Wharton M.D. Diagnostic/Breast Radiologist [email or web address] NIKA/solomon / Narrative 10/13/2024 8:[address] CARDIAC CALCIUM SCORING 10/11/2024 PATIENT HISTORY: Screening for cardiovascular condition. REPORT: High-resolution, ECG-synchronized noncontrast computed tomography of the heart with attention to the coronary arteries was performed. Coronary calcification analyzed using Siemens calcium scoring software. These are the results of the evaluation: CT Calcium Scoring: This cardiac CT examination will provide you with a coronary artery calcium score. A coronary artery calcium score is a measurement of the amount of calcified plaque in the coronary arteries, the arteries that supply blood to the heart muscle. The coronary artery calcium score is calculated based on the number, size, and density of the calcified plaques in the coronary arteries. The amount of calcified coronary plaque has been shown to directly correlate with future risk for heart disease. The coronary artery calcium is a marker of how much plaque has accumulated in the sun of the coronary arteries. It is not a test for blockages. This test is intended to assess cardiovascular risk in patients without symptoms. It is not intended to be a test for individuals with chest pain or other possible symptoms suggestive of heart disease. If you are having chest pain or other potential cardiovascular symptoms, see your physician. Calcium Score: Left main = 14 Left anterior descending = 4 Left circumflex = 0 Right coronary artery = 0 Total calcium score = 18 This places the patient at the 40th percentile for matched age and gender. CALCIFIED PLAQUE SEEN Assessment: Your cardiac CT examination demonstrates plaque in the coronary arteries. The amount of plaque in the coronary arteries directly correlates with the risk for heart attack and other coronary events (such as bypass or stenting) As discussed above, the coronary artery calcium score is intended for risk assessment in patients without cardiovascular symptoms. If you are having chest pain or other potential cardiovascular symptoms, see your physician. Recommendations: To lower your cardiovascular risk, we strongly recommend adherence to healthy lifestyle behaviors including: o Following a heart healthy diet focused on modest portion sizes, a high intake of fresh fruits and vegetables, whole grains, healthy fats (olive oil, nuts and seeds, avocados), and healthy proteins (unprocessed meats, fish, legumes) o Following an active lifestyle including 30-45 minutes of moderate intensity exercise 5-6 times per week o Avoidance of tobacco products Cardiovascular preventive medication, including a daily aspirin and cholesterol-lowering statin medications have been shown to reduce the risk of a future heart attack and stroke, especially in individuals at higher risk for heart disease. We recommend that individuals with calcified plaque discuss the risks and benefits of cholesterol-lowering medications, blood pressure medications, and aspirin with their primary care physician. Cholesterol-lowering medications have been shown to reduce the risk of heart attack in individuals at elevated risk, including in patients with n ormal cholesterol levels at baseline. A coronary artery calcium score is not a test for blockages, it is a test for underlying plaque. An elevated calcium score is not an indication for additional testing for coronary heart disease though one may be considered based on your clinical history. The results of your coronary artery calcium score should be reviewed by your primary care provider or sap crm developer. These recommendations are generalized and may not specifically apply to you as an individual. Your primary care physician is in the best position to provide advice on your care and clinical decisions should ultimately be made by you and your physician. us Referral Self CT Final Result * (ABNORMAL) LIPID PANEL W REFLEX MEASURED LDL (06/24/2024 9:03 AM CDT) CHOLESTEROL, TOTAL 236(H) <200 mg/dL [facility] HDL CHOLESTEROL 46(L) > OR = 50 mg/dL [facility] TRIGLYCERIDES 295(H) <150 mg/dL [facility] Comment: If a non-fasting specimen was collected, consider repeat triglyceride testing on a fasting specimen if clinically indicated. Sue et al. J. of Clin. Lipidol. 2015;9:129-169. LDL-CHOLESTEROL 145(H) mg/dL (calc) [facility] Comment: Reference range: <100 Desirable range <100 mg/dL for primary prevention; <70 mg/dL for patients with CHD or diabetic patients with > or = 2 CHD risk factors. LDL-C is now calculated using the Andrea-Nelson calculation, which is a validated novel method providing better accuracy than the Friedewald equation in the estimation of LDL-C. Andrea SS et al. TEODORO. 2013;310(19): 3362-4396 (http://education.[employer].NAME'S Online Department Store/faq/GPC205) CHOL/HDLC RATIO 5.1(H) <5.0 (calc) [facility] NON HDL CHOLESTEROL 190(H) <130 mg/dL (calc) [facility] Comment: For patients with diabetes plus 1 major ASCVD risk factor, treating to a non-HDL-C goal of <100 mg/dL (LDL-C of <70 mg/dL) is considered a therapeutic option. Blood BLOOD SPECIMEN / Unknown 06/24/2024 9:03 AM CDT 06/24/2024 9:03 AM CDT Janay Nunez MD CHEMISTRY Final Result [facility] [address] [place] [address], [facility] [address] [place] [address] * XR MAMMO ALEENA BILAT SCREEN (10/09/2023 [...] care provider. XR MAMMO ALEENA BILAT SCREEN [[id number]] CLINICAL HISTORY: This is an asymptomatic 73 y.o. patient. INDICATION FOR EXAM: Mammogram Screening. TECHNIQUE: CC & MLO views were obtained. This study was evaluated with the assistance of Computer-Aided Detection. Breast Tomosynthesis was used in interpretation. COMPARISON FILM: Yes 12/08/21 [facility] FINDINGS: The breasts are heterogeneously dense, which may obscure small masses. There are no dominant masses, suspicious micro calcifications or areas of architectural distortion. Kyra Perera PA MAMMO Final R esult * COLONOSCOPY SCREENING (10/10/2022 12:00 AM CDT) Andrea Devi MD GI PROCEDURE ORD Final Re sult * ANTI HCV [47370.2] (02/09/2016 10:00 AM FIELD MAP EDITOR) HEPATITIS C ANTIBODY Non-Reacti ve Non-Reacti ve 02/09/2016 5:42 PM FIELD MAP EDITOR [facility] Blood BLOOD SPECIMEN / Unknown Venipuncture / Unknown 02/09/2016 10:00 AM FIELD MAP EDITOR 02/09/2016 10:01 AM FIELD MAP EDITOR Narrative [facility] - 02/09/2016 5:42 PM FIELD MAP EDITOR Antibodies to HCV not detected; does not exclude the possibility of exposure to HCV. us Kyra ANTHONY SEND OUTS Final R esult [facility] [address] [place] [address], from Last 3 Months or Most Recently Relevant to Health Maintenance Insurance [employer] [place] HB ONLY MEDICARE PART B HB ONLY [employer] [place] BL[place] MR PB ONLY MEDICARE PART A HB ONLY [employer] Member Subscriber Plan / Payer ( fective 2009-Present) Name:Miya Restrepo Relation to Subscriber:Self Name:Kaye, Miya Bell Payer ID:Not on file Group ID:Not on file Type:Not on file [id number] Address: [address] [place] [address] Advance Directives * Full Code (Latest Code Status on File) Date Activated Date Inactivated Comments 07/03/2024 2:11 PM 07/03/2024 7:07 PM Question Answer Comments Code Status Discussion: Reviewed Preferences * Full Code Date Activated Date Inactivated Comments 05/11/2010 8:46 AM 05/12/2010 2:51 AM * Full Code Date Activated Date Inactivated Comments 03/22/2010 2:54 PM 03/22/2010 10:16 PM * Full Code Date Activated Date Inactivated Comments 03/22/2010 1:40 PM 03/22/2010 2:54 PM * Full Code Date Activated Date Inactivated Comments 03/22/2010 4:20 AM 03/22/2010 1:40 PM Care Teams Field Servicer Relationship Specialty Start Date End Date Kyra Perera PA [address] [place] [address] PCP - General 06/16/08 Genaro Leonard MD [address] [facility] [address] [place] [address] Cardiology - Electrophysiology 05/30/22 Janay Nunez MD [address] [facility] [place] [address] Cardiology - Interventional 09/21/22 Carolyn Pisano PA [address] [facility] [place] [address] Physician News Video Editor 09/21/22 Keo Escobar MD [address] [place] [address] Sports Medicine - Family Medicine 09/21/22
--- OUTSIDE RECORDS SUMMARY | 2024-11-24 08:32 | XMS_ITS | Encounter Summary ---
Author Organization [facility] Address [address] [place] [address]. [place] [address] Care Team Providers Care Cord Tire Builder Name Role Phone GwenPramod farahflavio Bell Primary Care Provider [phone] Angel Hollins MD Unavailable [phone] Petra Dorado Unavailable [phone] Angel Hollins MD Unavailable Yves Ballard MD Unavailable + [phone] Encounter Details Date Type Department Care Team (Late st Contact Info) Description 02/21/2024 [facility] [address] [place] [address] Angel Hollins MD [address] [place] [address] [id number] [place], [place] [id number] Social History Tobacco Use Types Packs/Day Years [...] on file 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 Gender Identity Not on file Sexual Orientation Not on file documented as of this encounter Plan of Treatment Not on file documented as of this encounter Visit Diagnoses Not on filedocumented in this encounter Care Teams Cord Tire Builder Relationship Specialty Start Date End Date Kyra Perera [address] [place] [address] PCP - General Physician Town Administrator 03/31/22 Angel Hollins MD [address] [address] Neurology 07/20/23 Petra Dorado PA [address] [place] [address] Physician Town Administrator Physical Medicine and Rehabilitation 07/20/23 Angel Hollins MD [address] [address] Assigned Neuroscience Provider 08/03/23 Yves Ballard MD [address] [facility] [address] [place] [address] Assigned Heart and Vascular Provider 12/04/23 documented as of this encounter
[2024-11-24 08:42] VITALS: BP 219/118; PULSE 87; RESP 16; TEMP 36.6; O2SAT 97; BMI 25.2
--- NOTE | 2024-11-24 09:08 | CRLHL7_ITS ---
For Patients: As a result of the Century Cures Act, medical imaging exams and procedure reports are released immediately into your electronic medical record. You may view this report before your referring provider. If you have questions, please contact your health care provider. INDICATION: Right upper quadrant abdominal pain TECHNIQUE: CT abdomen and pelvis with 68 mL Isovue contrast. COMPARISON: None. FINDINGS: Lower chest: Basilar atelectasis and/or fibrotic changes. Liver: Normal in size and attenuation. No suspicious masses. Gallbladder and bile ducts: Cholecystectomy Pancreas: Unremarkable. No mass or inflammation. Spleen: Normal in size. No masses. Adrenal glands: Normal in size. No nodules. Versus a tiny diminutive appendix Kidneys: Left renal cyst GI tract: Unremarkable. Normal in caliber. No sign of mass or inflammation. Vasculature: Abdominal aorta is normal in caliber. Lymph nodes: No lymphadenopathy. Peritoneum/Abdominal Wall: Unremarkable. No sign of mass or infiltration. No free air or significant free fluid. Pelvis: Left adnexal cystic lesion measuring 4.5 centimeters Bones: Unremarkable for age. IMPRESSION: 1. No acute findings in the abdomen or pelvis. 2. 4.5 centimeter left adnexal cystic lesion recommend routine pelvic ultrasound follow-up. Please note that all CT scans at this facility use dose modulation, iterative reconstruction, and/or weight-based dosing when appropriate to reduce radiation dose to as low as reasonably achievable. Dictated by Sarah Wharton MD @ 11/24/2024 11:05:06 AM (Electronically Signed)
--- NOTE | 2024-11-24 09:10 | ED.ABDPAIN ---
HPI - Abdominal Pain General Chief Complaint: Abdominal Pain Stated Complaint: severe side pain Time Seen by Provider: 11/24/24 08:52 History of Present Illness HPI narrative: This 74-year-old female comes in reporting right upper quadrant abdominal pain that began yesterday. She states that it is a constant pain but does fluctuate somewhat. This pain kept her awake last night. She has had her gallbladder and appendix removed. She states that the pain seems to radiate into her back somewhat. She does not report nausea or vomiting. She normally takes metoprolol but did not take it this morning and arrives here we elevated blood pressure. She does not report any fevers or signs of infection. 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 Related Data Home Medications ?Medication ?Instructions ?Recorded ?Confirmed alprazolam 0.25 mg tablet 0.125 mg PO TID PRN 10/03/21 06/27/24 cholecalciferol (vitamin D3) 50 50 mcg PO DAILY 10/03/21 06/27/24 mcg (2,000 unit) tablet fluticasone propionate 50 1 - 2 spray intranasal DAILY PRN 10/03/21 06/27/24 mcg/actuation nasal spray,suspension nitroglycerin 0.4 mg sublingual 0.4 mg sublingual Q5M PRN 10/03/21 06/27/24 tablet aspirin 81 mg capsule 81 mg PO DAILY 02/15/22 06/27/24 metoprolol tartrate 25 mg tablet 6.25 mg PO DAILY 06/30/23 06/27/24 telmisartan 20 mg tablet 10 mg PO HS 06/30/23 06/27/24 diazepam 5 mg tablet 2.5 - 5 mg PO Q6H PRN anxiety 07/01/23 06/27/24 famotidine 10 mg tablet 10 mg PO DAILY 07/01/23 06/27/24 furosemide 20 mg tablet 20 mg PO Q OTHER DAY PRN 07/01/23 06/27/24 meclizine 25 mg tablet 25 mg PO TID PRN 07/01/23 06/27/24 Allergies Allergy/AdvReac Type Severity Reaction Status Date / Time Penicillins Allergy Severe Throat Verified 06/27/24 10:29 Closing amlodipine Allergy Intermediate Palpitation Verified 06/27/24 10:29 s atorvastatin Allergy Intermediate Myalgia Verified 06/27/24 10:29 chlorthalidone Allergy Intermediate Dyspnea Verified 06/27/24 10:29 clonidine Allergy Intermediate Dyspnea Verified 06/27/24 10:29 diltiazem Allergy Intermediate Anxiety Verified 06/27/24 10:29 doxazosin Allergy Intermediate Bleeding Verified 06/27/24 10:29 hydralazine Allergy Intermediate Tachycardia Verified 06/27/24 10:29 hydrochlorothiazide Allergy Intermediate Dyspnea Verified 06/27/24 10:29 labetalol Allergy Intermediate Dyspnea Verified 06/27/24 10:29 lisinopril Allergy Intermediate Chest Pain Verified 06/27/24 10:29 lobster Allergy Intermediate Verified 06/27/24 10:29 lorazepam (From Ativan) Allergy Intermediate Depression Verified 06/27/24 10:29 losartan Allergy Intermediate Dyspnea Verified 06/27/24 10:29 methyldopa Allergy Intermediate Rash Verified 06/27/24 10:29 metoprolol Allergy Intermediate Dyspnea Verified 06/27/24 10:29 metronidazole (From Flagyl) Allergy Intermediate Hives Verified 06/27/24 10:29 milk Allergy Intermediate Verified 06/27/24 10:29 rosuvastatin Allergy Intermediate Myalgia Verified 06/27/24 10:29 verapamil Allergy Intermediate Dyspnea Verified 06/27/24 10:29 morphine Allergy Mild Hives Verified 06/27/24 10:29 Sulfa (Sulfonamide Allergy Mild Hives Verified 06/27/24 10:29 Antibiotics) lactose Allergy Unknown Verified 06/27/24 10:29 latex Allergy Unknown Verified 06/27/24 10:29 hydrocodone AdvReac Intermediate Nausea/Vomi Verified 06/27/24 10:29 ting olmesartan AdvReac Intermediate Verified 06/27/24 10:29 Review of Systems Status of ROS Reports: 10 or more systems reviewed and unremarkable except as noted in History and below Narrative Constitutional: No fevers, no weight gain or loss. Eyes: No discharge. No vision changes. HENT: No congestion, no sore throat, no ear pain. Cardiovascular: No chest pain, no palpitations. Respiratory: No shortness of breath, no wheezes, no cough. Gastrointestinal: No vomiting, no diarrhea. Abdominal pain as described above. Genitourinary: No dysuria, no hematuria. Musculoskeletal: Normal range of motion. Skin: No rashes, no pruritis. Neurological: No dizziness, weakness, sensory change, speech change. Endo/Heme/Allergies: No bruising or bleeding. No polydipsia. Pysch: no suicidality, no anxiety, no insomnia. All other systems reviewed and are negative. 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) ?D89.40 - Mast cell activation, unspecified (ICD-10) LVH (left ventricular hypertrophy) (01/26/21) ?I51.7 - Cardiomegaly (ICD-10) TBI (traumatic brain injury) ?S06.9XAA - Unspecified intracranial injury with loss of consciousness status unknown, initial encounter (ICD-10) Frequent PVCs ?I49.3 - Ventricular premature depolarization (ICD-10) Anxiety ?F41.9 - Anxiety disorder, unspecified (ICD-10) Statin intolerance ?Z78.9 - Other specified health status (ICD-10) Hypertension with intolerance to multiple antihypertensive drugs ?I10 - Essential (primary) hypertension (ICD-10) Viral infection ?B34.9 - Viral infection, unspecified (ICD-10) Upper back pain ?M54.9 - Dorsalgia, unspecified (ICD-10) Tinnitus ?H93.19 - Tinnitus, unspecified ear (ICD-10) Obstructive sleep apnea treated with continuous positive airway pressure (CPAP) ?G47.33 - Obstructive sleep apnea (adult) (pediatric) (ICD-10) Headache ?R51.9 - Headache, unspecified (ICD-10) Excessive daytime sleepiness ?G47.19 - Other hypersomnia (ICD-10) Encounter for follow-up ?Z09 - Encounter for follow-up examination after completed treatment for conditions other than malignant neoplasm (ICD-10) Disorder of paranasal sinus ?J34.9 - Unspecified disorder of nose and nasal sinuses (ICD-10) Difficulty sleeping ?G47.9 - Sleep disorder, unspecified (ICD-10) Chest pain ?R07.9 - Chest pain, unspecified (ICD-10) Abdominal pain ?R10.9 - Unspecified abdominal pain (ICD-10) Surgical History Hx of removal of ovary H/O section ?Z98.891 - History of uterine scar from previous surgery (ICD-10) H/O resection of rib ?Z98.890 - Other specified postprocedural states (ICD-10) History of tonsillectomy ?Z90.89 - Acquired absence of other organs (ICD-10) Hx of cholecystectomy ?Z90.49 - Acquired absence of other specified parts of digestive tract (ICD-10) History of appendectomy ?Z90.49 - Acquired absence of other specified parts of digestive tract (ICD-10) Family History Brother Prostate cancer Heart disease Sister Lung cancer Social History Narrative: She lives in [place]. Accompanied today by her son David. She does not smoke. She does not drink alcohol. What is your current living situation?: I presently have a place to live Problems where you live: no known problems Problems where you live details: none In the past 12 months, utilities in danger of being shut off: no In past 12 months, lack of transportation kept you from medical appts, meetings, work, or getting things needed for daily living: no In the past 12 mos, have been you worried that your food would run out before you had money to buy more?: never true In the past 12 mos, the food you bought just didn't last and you didn't have money to buy more?: never true Highest level of school completed/degree received: some college, no degree Smoking Status: Never smoker Do you use any of these nicotine containing products: None Second hand tobacco smoke exposure: No How often do you have a drink containing alcohol: never AUDIT-C Alcohol total score: 0 Non-prescribed substance use: denies use Caffeine: No How often does anyone, including family, friends and others, physically hurt you: never How often does anyone, including family, friends and others, insult or talk down to you: never How often does anyone, including family, friends and others, threaten you with harm: never How often does anyone, including family, friends and others, scream or curse at you: never service: No Exam Narrative: Exam Narrative: Constitutional: Well-developed, well-nourished, no acute distress. HEENT: Normocephalic, atraumatic. Neck: Normal range of motion. Nontender. Supple. Heart: Regular. No murmurs. Normal rate. Intact distal pulses. Lungs: Clear to auscultation. No chest discomfort. No wheezes, rhonchi, or rales. Abdomen: Normal bowel sounds. Tenderness in the right abdomen. Rebound tenderness is present. Genitalia: Deferred. Back: No midline tenderness. Normal range of motion. Extremities: Normal range of motion. No injury. Skin: Intact. No rash. Warm. No erythema or pallor. Neurologic: No altered sensation. No weakness. Alert and oriented. Psychiatric: No suicidality. No anxiety or depression. No insomnia. Nursing notes and vitals signs are reviewed. Const: Vital Signs, click to edit/add: Vital Signs - 24 hr 11/24/24 08:42 Temperature 97.9 F Pulse Rate [Pulse Oximeter] 87 Respiratory Rate 16 Blood Pressure [Ri ght Upper Arm] 219/118 H Pulse Oximetry 97 Oxygen Delivery Me thod Room Air Course Vital Signs Vital signs: Initial Vital Signs Temperature 97.9 F 11/24/24 08:42 Temperature Source Temporal Artery Scan 11/24/24 08:42 Pulse Rate 87 11/24/24 08:42 Respiratory Rate 16 11/24/24 08:42 Blood Pressure 219/118 H 11/24/24 08:42 Blood Pressure Mean 151 H 11/24/24 08:42 Blood Pressure Position Sitting 11/24/24 08:42 Pulse Oximetry 97 11/24/24 08:42 Oxygen Delivery Method Room Air 11/24/24 08:42 Vital Signs Temperature 97.9 F 11/24/24 08:42 Pulse Rate 87 11/24/24 08:42 Respiratory Rate 16 11/24/24 08:42 Blood Pressure 219/118 H 11/24/24 08:42 Pulse Oximetry 97 11/24/24 08:42 Oxygen Delivery Method Room Air 11/24/24 08:42 Temperature 97.9 F 11/24/24 08:42 Pulse Rate 87 11/24/24 08:42 Respiratory Rate 16 11/24/24 08:42 Blood Pressure 219/118 H 11/24/24 08:42 Pulse Oximetry 97 11/24/24 08:42 Oxygen Delivery Method Room Air 11/24/24 08:42 Discharge Plan Discharge Prescriptions: No Action aspirin 81 mg capsule 81 mg PO DAILY alprazolam 0.25 mg tablet 0.125 mg PO TID PRN nitroglycerin 0.4 mg tablet, sublingual 0.4 mg sublingual Q5M PRN Patient Comments: Every 5 Minutes X 3 as needed fluticasone propionate 50 mcg/actuation spray,suspension 1 - 2 spray INTRANASAL DAILY PRN cholecalciferol (vitamin D3) 50 mcg (2,000 unit) tablet 50 mcg PO DAILY telmisartan 20 mg tablet 10 mg PO HS metoprolol tartrate 25 mg tablet 6.25 mg PO DAILY furosemide 20 mg tablet 20 mg PO Q OTHER DAY PRN famotidine 10 mg tablet 10 mg PO DAILY diazepam 5 mg tablet 2.5 - 5 mg PO Q6H PRN (Reason: anxiety) meclizine 25 mg tablet 25 mg PO TID PRN Follow Up/Referrals: Kyra Perera PA-C [Primary Care Provider, Family Practice]
--- OUTSIDE RECORDS SUMMARY | 2024-11-24 09:12 | XMS_ITS | Clinical Summary ---
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 033506913 (SNOMED CT) 09/19 Active 09/19 Fredi Worthy MD Neuropathic pain Infarction of basal ganglia Lt 644903443 (SNOMED CT) 09/19 Active 09/19 Fredi Worthy MD Infarction of basal ganglia Vertigo 475467182 (SNOMED CT) 2 Active 2 Fredi Worthy MD Vertigo Sleep apnea 34696595 (SNOMED CT) 09/24 Resolved 09/24 Fredi Worthy MD Sleep apnea New daily persistent headache 374568057285 105 (SNOMED CT) 03/29 Active 03/29 Fredi Worthy MD New daily persistent headache Hypertension, uncontrolled 70951943 (SNOMED CT) 03/29 Active 03/29 Fredi Worthy MD Hypertensive disorder Cardiac arrhythmia 50611303 (SNOMED CT) 09/24 Active 09/24 Armando Granados MD Conduction disorder of the heart Sleep apnea 55782520 (SNOMED CT) 09/24 Removed 09/24 Armando Granados MD Sleep apnea Intracranial vascular stenosis 35090718 (SNOMED CT) 09/24 Active 09/24 Armando Granados MD Cerebral artery occlusion Medications Medication Instructions Start Date Stop Date Generic Name NDC Provider METOPROLOL TARTRATE 25 MG TABS 1/2 tab twice a day metoprolol tartrate 44434115697 Shawna Olverail PA-C ASPIRIN 81 MG TBEC aspirin 33236238212 Shawna Olverail PA-C VITAMIN D3 50 MCG (1999) TABS cholecalciferol (vitamin d3) 67273310217 Shawna Olverail PA-C FUROSEMIDE 20 MG TABS 1 tab twice a week furosemide 19433774027 Shawna Olverail PA-C GABAPENTIN 100 MG CAPS 1 capsule by mouth as directed : 1 cap or 100 mg per night and may increase by 100 mg every 5 night as needed until pain controlled or until 600 mg/night 10/01 gabapentin 42103084142 Shawna Bob PA-C Aspirin once a day as needed 10/01 Aspirin Shawna Olverail PA-C ONDANSETRON 4 MG TBDP every six hours as needed 10/01 ondansetron 09835089495 Shawna Bob PA-C EZETIMIBE 10 MG TABS 10/01 ezetimibe 62287472271 Shawna Olverail PA-C ALPRAZOLAM 0.25 MG TABS 1/2 tab q am and qhs as needed alprazolam 46789700917 Shawna Olverail PA-C TELMISARTAN 20 MG TABS TAKE ONE TABLET BY MOUTH (20MG) TWICE A DAY PT REQUESTING THIS TECHNICAL EXPERT FOR THIS 10/01 telmisartan 28180870764 Shawna Bob PA-C DULOXETINE HCL 20 MG CPEP Take 1 capsule by mouth once a day duloxetine 65303485133 Shawna Bob PA-C GABAPENTIN 100 MG CAPS 1 capsule by mouth as directed : 1 to 3 caps 2 times/day during the day time as needed for pain. In addition take 200 mg per night and may increase by 100 mg per night as needed until pain controlled or until 600 mg/night 04/03 gabapentin 39525550558 Fredi Worthy MD GABAPENTIN 100 MG CAPS 1 capsule by mouth as directed : 1 cap or 100 mg per night and may increase by 100 mg every 5 night as needed until pain controlled or until 600 mg/night 10/01 gabapentin 82585026486 Fredi Worthy MD EZETIMIBE 10 MG TABS 10/01 ezetimibe 62573715508 Fredi Worthy MD GABAPENTIN 100 MG CAPS 1 capsule by mouth as directed : 1 to 3 caps 2 times/day during the day time as needed for pain. In addition take 200 mg per night and may increase by 100 mg per night as needed until pain controlled or until 600 mg/night 09/20 gabapentin 07119697295 Fredi oWrthy MD AMLODIPINE BESYLATE 2.5 MG TABS once a day 09/19 amlodipine 64438295552 Fredi Worthy MD DIAZEPAM 5 MG TABS three times a day as needed 09/19 diazepam 25835570514 Fredi Worthy MD EPLERENONE 25 MG TABS once a day 09/19 eplerenone 97343983446 Fredi Worthy MD VITAMIN D 50 MCG (1999 [place]) TABS once a day 09/19 cholecalciferol (vitamin d3) 65525432172 Fredi Worthy MD ONDANSETRON 4 MG TBDP every six hours as needed 10/01 ondansetron 57864872274 Fredi Worthy MD FLUTICASONE PROPIONATE 50 MCG/ACT SUSP twice a day as needed 09/19 fluticasone propionate 01980615152 Fredi Worthy MD MECLIZINE HCL 12.5 MG TABS every eight hours as needed 09/19 meclizine 77236223531 Fredi Worthy MD ALPRAZOLAM 0.25 MG TABS Bedtime 10/01 alprazolam 09200835752 Fredi Worthy MD DILTIAZEM HCL 30 MG TABS twice a day 09/19 diltiazem hcl 58702791016 Fredi Worthy MD Aspirin once a day as needed 10/01 Aspirin Fredi Worthy MD COENZYME Q10 10 MG CAPS Discontinued 09/19 coenzyme q10 46927471851 Fredi Worthy MD NITROGLYCERIN 0.4 MG SUBL 5 mg as needed nitroglycerin 73869329423 Fredi Worthy MD FUROSEMIDE 20 MG TABS three times a day 09/19 furosemide 37460075154 Fredi Worthy MD METOPROLOL TARTRATE 25 MG TABS 10/02 metoprolol tartrate 68285915802 Fredi Worthy MD TELMISARTAN 20 MG TABS TAKE ONE TABLET BY MOUTH (20MG) TWICE A DAY PT REQUESTING THIS TECHNICAL EXPERT FOR THIS 10/01 telmisartan 51951392627 Fredi Worthy MD ONDANSETRON 4 MG TBDP Every 6 Hours as needed 11/24 Ondansetron Hcl 83188930840 System Maintenance NITROGLYCERIN 0.4 MG SUBL Every 5 Minutes X 3 as needed 09/19 Nitroglycerin 60867348500 System Maintenance MECLIZINE HCL 12.5 MG TABS Every 8 Hours as needed 09/19 Meclizine Hcl 60488015801 System Maintenance FUROSEMIDE 20 MG TABS 3XWK 09/19 Furosemide 97485792778 System Maintenance FLUTICASONE PROPIONATE 50 MCG/ACT SUSP Twice A Day as needed 09/20 Fluticasone Propionate (Nasal) 56398354414 System Maintenance EPLERENONE 25 MG TABS Daily 09/20 Eplerenone 73545134416 System Maintenance DILTIAZEM HCL 30 MG TABS Twice A Day 09/20 Diltiazem Hcl 70560138569 System Maintenance DIAZEPAM 5 MG TABS Three Times A Day as needed 09/20 Diazepam 46698669491 System Maintenance COENZYME Q10 10 MG CAPS Discontinued 09/19 Coenzyme Q10 (Ubidecarenone) 26174277920 System Maintenance VITAMIN D 50 MCG (1999) TABS Daily 09/19 Cholecalciferol 11513338975 System Maintenance Aspirin Daily as needed 09/19 Aspirin 40928307407 System Maintenance AMLODIPINE BESYLATE 2.5 MG TABS Daily 09/20 Amlodipine Besylate 47243466014 System Maintenance ALPRAZOLAM 0.25 MG TABS Bedtime 09/19 Alprazolam 64082999768 System Maintenance Medications Administered No information available. Allergies, Adverse Reactions, Alerts Allergy Name Reaction Description Start Date Severity Status Provider Verapamil Mild Active Armando Granados MD Rosuvastatin Mild Active [facility] Gran[facility] MD Penicillin v Mild Active [facility] E Roberta MAURICE Morphine Mild Active Armando E Roberta MAURICE Metronidazole Mild Active Armandophuc Granados MD Metoprolol Mild Active [facility] Gran[facility] MD Methyldopa Mild Active [facility] Granados MD Losartan Mild Active Armandophuc Granados MD Lorazepam Mild Active Armando E Roberta MAURICE Lisinopril Mild Active [facility] Roberta MAURICE Latex Mild Active Armando E Roberta MAURICE Lactose Mild Active [facility] Roberta MAURICE Labetalol Mild Active Armandophuc Granados MD Hydrocodone Mild Active [facility] Gran[facility] MD Hydrochlorothiazide Mild Active [facility] Gran[facility] MD Hydralazine Mild Active Armandophuc Granados MD Diltiazem Mild Active Armando E Roberta MAURICE Atorvastatin Mild Active [facility] Granados MD Acetaminophen Mild Active Armando E Roberta MAURICE <originalText>Sulfa drugs<reference value=#allergy-21/></o Mild Active Rup ert Dion Granados MD <originalText>Milk derivatives<reference value=#allergy-23 Moderate Active Armandophuc Granados MD <originalText>Lobster<refe rence value=#allergy-1/></orig in Moderate Active [facility] Granados MD <originalText>Beta Adrenergic Blockers<reference value=#all Mild [...] Care Type Date Detail Appointment 11:[address] [facility] [employer], [address], Appointment 11:[address] [facility] [employer], [address], [address], Appointment 10:00 AM Shawna Bob PA-C, [facility] [employer], [address], [address], Pending order Follow up Pending order Follow [...] ORDERS Follow up TIMMY ORDERS Patient Instructions [facility]-[id number] Documentation of current medicatio ns ORDERS Follow up with Neurologist or TIMMY ORDERS Instructions for Staff 04/03 [facility]-[id number] Documentation of current medicatio ns ORDERS Patient Instructions ORDERS Follow up in clinic or telemedicine with provider or TIMMY [id number] MRA-Neck W/WO ORDERS Follow up in clinic or telemedicine with provider or TIMMY ORDERS Patient Instructions [facility]-[id number] Documentation of current medicatio ns [facility]-[id number] Documentation of current medicatio ns Vital Signs [...]
[2024-11-24 09:32] LABS: Creatinine, Point-of-Care* 0.8 mg/dl (0.6-1.3)
[2024-11-24 09:35] LABS: Hematocrit* 45.6 % (33.0-51.0); Hemoglobin* 15.0 gm/dL (12.0-16.0); Immature Granulocytes Pct Auto 0.2 %; Mean Corpuscular HGB Conc 33 gm/dL (32-36); Mean Corpuscular Hemoglobin 29 pg (26-34); Mean Corpuscular Volume 89 fL (80-100); RDW Coefficient of Variation % 13.0 % (11.5-15.5); Red Blood Count* 5.15 m/uL (4.00-5.20); White Blood Count* 4.10 K/uL (4.50-11.00)
[2024-11-24 09:46] LABS: Troponin, Point-of-Care* 0.01 ng/ml (0.01-0.04)
[2024-11-24 09:50] LABS: Albumin* 4.5 g/dL (3.3-5.0); Chloride* 105 mmol/L (96-114)
[2024-11-24 09:51] LABS: Potassium* 4.1 mmol/L (3.6-5.1); Sodium* 139 mmol/L (135-149)
[2024-11-24 09:52] LABS: Immature Granulocytes Abs Auto 0.00 K/uL (0.00-0.30); Lymphocytes Absolute Auto 1.30 K/uL (0.90-2.90); Slide Review Reflex No
[2024-11-24 09:53] LABS: Alanine Aminotransferase* 21 U/L (4-35); Anion Gap 6 mEq/L (7-15); Aspartate Amino Transferase* 34 U/L (12-35); Blood Urea Nitrogen* 16 mg/dL (7-30); Carbon Dioxide* 28 mmol/L (20-32); Creatinine* 0.6 mg/dL (0.5-1.5); Est. Creatinine Clearance* 39.04; Estimated Glomerular Filt Rate 94 ml/min; Total Protein* 7.4 g/dL (6.0-8.3)
[2024-11-24 09:54] LABS: Alkaline Phosphatase* 62 U/L (40-150); Bilirubin Direct* 0.2 mg/dL (0.0-0.5); Bilirubin Total* 0.6 mg/dL (0.1-1.5); Calcium* 9.3 mg/dL (8.4-10.6); Glucose* 102 mg/dL (60-115)
--- NOTE | 2024-11-24 11:23 | ED.ABDPAIN ---
HPI - Abdominal Pain General Chief Complaint: Abdominal Pain Stated Complaint: severe side pain Time Seen by Provider: 11/24/24 08:52 History of Present Illness HPI narrative: This 74-year-old female comes in reporting abdominal pain in the right abdomen and right upper quadrant that began yesterday. She has had her gallbladder and appendix removed in the past. She does have history of a stroke with some right-sided weakness that is almost completely resolved. She states that she feels this pain into her back sometimes. She does not report any fevers or sign of infection. She did not sleep so well last night because of this pain. Related Data Home Medications ?Medication ?Instructions ?Recorded ?Confirmed alprazolam 0.25 mg tablet 0.125 mg PO TID PRN 10/03/21 06/27/24 cholecalciferol (vitamin D3) 50 50 mcg PO DAILY 10/03/21 06/27/24 mcg (2,000 unit) tablet fluticasone propionate 50 1 - 2 spray intranasal DAILY PRN 10/03/21 06/27/24 mcg/actuation nasal spray,suspension nitroglycerin 0.4 mg sublingual 0.4 mg sublingual Q5M PRN 10/03/21 06/27/24 tablet aspirin 81 mg capsule 81 mg PO DAILY 02/15/22 06/27/24 metoprolol tartrate 25 mg tablet 6.25 mg PO DAILY 06/30/23 06/27/24 telmisartan 20 mg tablet 10 mg PO HS 06/30/23 06/27/24 diazepam 5 mg tablet 2.5 - 5 mg PO Q6H PRN anxiety 07/01/23 06/27/24 famotidine 10 mg tablet 10 mg PO DAILY 07/01/23 06/27/24 furosemide 20 mg tablet 20 mg PO Q OTHER DAY PRN 07/01/23 06/27/24 meclizine 25 mg tablet 25 mg PO TID PRN 07/01/23 06/27/24 Previous Rx's ?Medication ?Instructions ?Recorded hydrocodone 5 mg-acetaminophen 325 1 tab PO Q4-6H PRN pain #15 tabs 11/24/24 mg tablet Allergies Allergy/AdvReac Type Severity Reaction Status Date / Time Penicillins Allergy Severe Throat Verified 06/27/24 10:29 Closing amlodipine Allergy Intermediate Palpitation Verified 06/27/24 10:29 s atorvastatin Allergy Intermediate Myalgia Verified 06/27/24 10:29 chlorthalidone Allergy Intermediate Dyspnea Verified 06/27/24 10:29 clonidine Allergy Intermediate Dyspnea Verified 06/27/24 10:29 diltiazem Allergy Intermediate Anxiety Verified 06/27/24 10:29 doxazosin Allergy Intermediate Bleeding Verified 06/27/24 10:29 hydralazine Allergy Intermediate Tachycardia Verified 06/27/24 10:29 hydrochlorothiazide Allergy Intermediate Dyspnea Verified 06/27/24 10:29 labetalol Allergy Intermediate Dyspnea Verified 06/27/24 10:29 lisinopril Allergy Intermediate Chest Pain Verified 06/27/24 10:29 lobster Allergy Intermediate Verified 06/27/24 10:29 lorazepam (From Ativan) Allergy Intermediate Depression Verified 06/27/24 10:29 losartan Allergy Intermediate Dyspnea Verified 06/27/24 10:29 methyldopa Allergy Intermediate Rash Verified 06/27/24 10:29 metoprolol Allergy Intermediate Dyspnea Verified 06/27/24 10:29 metronidazole (From Flagyl) Allergy Intermediate Hives Verified 06/27/24 10:29 milk Allergy Intermediate Verified 06/27/24 10:29 rosuvastatin Allergy Intermediate Myalgia Verified 06/27/24 10:29 verapamil Allergy Intermediate Dyspnea Verified 06/27/24 10:29 morphine Allergy Mild Hives Verified 06/27/24 10:29 Sulfa (Sulfonamide Allergy Mild Hives Verified 06/27/24 10:29 Antibiotics) lactose Allergy Unknown Verified 06/27/24 10:29 latex Allergy Unknown Verified 06/27/24 10:29 hydrocodone AdvReac Intermediate Nausea/Vomi Verified 06/27/24 10:29 ting olmesartan AdvReac Intermediate Verified 06/27/24 10:29 Review of Systems Status of ROS Reports: 10 or more systems reviewed and unremarkable except as noted in History and below Narrative Constitutional: No fevers, no weight gain or loss. Eyes: No discharge. No vision changes. HENT: No congestion, no sore throat, no ear pain. Cardiovascular: No chest pain, no palpitations. Respiratory: No shortness of breath, no wheezes, no cough. Gastrointestinal: No vomiting, no diarrhea. Abdominal pain as described above. Genitourinary: No dysuria, no hematuria. Musculoskeletal: Normal range of motion. Skin: No rashes, no pruritis. Neurological: No dizziness, weakness, sensory change, speech change. Endo/Heme/Allergies: No bruising or bleeding. No polydipsia. Pysch: no suicidality, no anxiety, no insomnia. All other systems reviewed and are negative. 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) ?D89.40 - Mast cell activation, unspecified (ICD-10) LVH (left ventricular hypertrophy) (01/26/21) ?I51.7 - Cardiomegaly (ICD-10) TBI (traumatic brain injury) ?S06.9XAA - Unspecified intracranial injury with loss of consciousness status unknown, initial encounter (ICD-10) Frequent PVCs ?I49.3 - Ventricular premature depolarization (ICD-10) Anxiety ?F41.9 - Anxiety disorder, unspecified (ICD-10) Statin intolerance ?Z78.9 - Other specified health status (ICD-10) Hypertension with intolerance to multiple antihypertensive drugs ?I10 - Essential (primary) hypertension (ICD-10) Viral infection ?B34.9 - Viral infection, unspecified (ICD-10) Upper back pain ?M54.9 - Dorsalgia, unspecified (ICD-10) Tinnitus ?H93.19 - Tinnitus, unspecified ear (ICD-10) Obstructive sleep apnea treated with continuous positive airway pressure (CPAP) ?G47.33 - Obstructive sleep apnea (adult) (pediatric) (ICD-10) Headache ?R51.9 - Headache, unspecified (ICD-10) Excessive daytime sleepiness ?G47.19 - Other hypersomnia (ICD-10) Encounter for follow-up ?Z09 - Encounter for follow-up examination after completed treatment for conditions other than malignant neoplasm (ICD-10) Disorder of paranasal sinus ?J34.9 - Unspecified disorder of nose and nasal sinuses (ICD-10) Difficulty sleeping ?G47.9 - Sleep disorder, unspecified (ICD-10) Chest pain ?R07.9 - Chest pain, unspecified (ICD-10) Abdominal pain ?R10.9 - Unspecified abdominal pain (ICD-10) Surgical History Hx of removal of ovary H/O section ?Z98.891 - History of uterine scar from previous surgery (ICD-10) H/O resection of rib ?Z98.890 - Other specified postprocedural states (ICD-10) History of tonsillectomy ?Z90.89 - Acquired absence of other organs (ICD-10) Hx of cholecystectomy ?Z90.49 - Acquired absence of other specified parts of digestive tract (ICD-10) History of appendectomy ?Z90.49 - Acquired absence of other specified parts of digestive tract (ICD-10) Family History Brother Prostate cancer Heart disease Sister Lung cancer Social History Narrative: She lives in [place]. Accompanied today by her son David. She does not smoke. She does not drink alcohol. What is your current living situation?: I presently have a place to live Problems where you live: no known problems Problems where you live details: none In the past 12 months, utilities in danger of being shut off: no In past 12 months, lack of transportation kept you from medical appts, meetings, work, or getting things needed for daily living: no In the past 12 mos, have been you worried that your food would run out before you had money to buy more?: never true In the past 12 mos, the food you bought just didn't last and you didn't have money to buy more?: never true Highest level of school completed/degree received: some college, no degree Smoking Status: Never smoker Do you use any of these nicotine containing products: None Second hand tobacco smoke exposure: No How often do you have a drink containing alcohol: never AUDIT-C Alcohol total score: 0 Non-prescribed substance use: denies use Caffeine: No How often does anyone, including family, friends and others, physically hurt you: never How often does anyone, including family, friends and others, insult or talk down to you: never How often does anyone, including family, friends and others, threaten you with harm: never How often does anyone, including family, friends and others, scream or curse at you: never service: No Exam Narrative: Exam Narrative: Constitutional: Well-developed, well-nourished, no acute distress. HEENT: Normocephalic, atraumatic. Neck: Normal range of motion. Nontender. Supple. Heart: Regular. No murmurs. Normal rate. Intact distal pulses. Lungs: Clear to auscultation. No chest discomfort. No wheezes, rhonchi, or rales. Abdomen: Normal bowel sounds. Diffuse tenderness in the right abdomen. Rebound tenderness is present. Genitalia: Deferred. Back: No midline tenderness. Normal range of motion. Extremities: Normal range of motion. No injury. Skin: Intact. No rash. Warm. No erythema or pallor. Neurologic: No altered sensation. No weakness. Alert and oriented. Psychiatric: No suicidality. No anxiety or depression. No insomnia. Nursing notes and vitals signs are reviewed. Const: Vital Signs, click to edit/add: Vital Signs - 24 hr 11/24/24 08:42 Temperature 97.9 F Pulse Rate [Pulse Oximeter] 87 Respiratory Rate 16 Blood Pressure [Ri ght Upper Arm] 219/118 H Pulse Oximetry 97 Oxygen Delivery Me thod Room Air Course Vital Signs Vital signs: Initial Vital Signs Temperature 97.9 F 11/24/24 08:42 Temperature Source Temporal Artery Scan 11/24/24 08:42 Pulse Rate 87 11/24/24 08:42 Respiratory Rate 16 11/24/24 08:42 Blood Pressure 219/118 H 11/24/24 08:42 Blood Pressure Mean 151 H 11/24/24 08:42 Blood Pressure Position Sitting 11/24/24 08:42 Pulse Oximetry 97 11/24/24 08:42 Oxygen Delivery Method Room Air 11/24/24 08:42 Vital Signs Temperature 97.9 F 11/24/24 08:42 Pulse Rate 87 11/24/24 08:42 Respiratory Rate 16 11/24/24 08:42 Blood Pressure 219/118 H 11/24/24 08:42 Pulse Oximetry 97 11/24/24 08:42 Oxygen Delivery Method Room Air 11/24/24 08:42 Temperature 97.9 F 11/24/24 08:42 Pulse Rate 87 11/24/24 08:42 Respiratory Rate 16 11/24/24 08:42 Blood Pressure 219/118 H 11/24/24 08:42 Pulse Oximetry 97 11/24/24 08:42 Oxygen Delivery Method Room Air 11/24/24 08:42 MDM - Abdominal Pain MDM Narrative Medical decision making narrative: This patient comes in reporting abdominal pain in the right upper quadrant that she feels radiates to her back and to her right shoulder at times. She has had her gallbladder removed as well as her appendix in the past. She arrives here with normal vital signs. A CT scan is obtained with IV contrast and shows no acute findings to explain the patient's pain. She does have a left adnexal cyst measuring 4.5 cm. The patient knew of this and does have plans to follow up to recheck that. This does not explain her current symptoms. 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 This could be explaining her current symptoms. Lab results here also are showing no explanation for her symptoms. This patient did not receive any treatments for her symptoms here. She has a very large list of allergies. She is okay to be discharged home and I did describe signs and symptoms that would indicate need for return and re-evaluation. I did provide [facility] prescriptions for Toradol, Zofran, and [place]. Lab Data Labs: Lab Results 11/24/24 11/24/24 11/24/24 Range/Units 09:09 09:16 09:25 WBC 4.10 L (4.50-11.00) K/uL RBC 5.15 (4.00-5.20) m/uL Hgb 15.0 (12.0-16.0) gm/dL Hct 45.6 (33.0-51.0) % MCV 89 (80-100) fL MCH 29 (26-34) pg MCHC 33 (32-36) gm/dL RDW Coeff of Jaylen 13.0 (11.5-15.5) % Plt Count 187 (140-440) K/uL Neut % (Auto) 56.8 (42.0-72.0) % Lymph % (Auto) 31.0 (20-44) % [place] % (Auto) 9.3 (0.0-11.0) % Eos % (Auto) 2.2 (0.0-7.0) % Baso % (Auto) 0.5 (0.0-3.0) % Neut # (Auto) 2.30 (1.7-7.0) K/uL Lymph # (Auto) 1.30 (0.90-2.90) K/uL [place] # (Auto) 0.40 (0.00-0.90) K/UL Eos # (Auto) 0.10 (0.00-0.50) K/uL Baso # (Auto) 0.00 (0.00-0.30) K/uL Abs Immat Gran (auto) 0.00 (0.00-0.30) K/uL Imm/Tot Granulo (auto) 0.2 % Sodium 139 (135-149) mmol/L Potassium 4.1 (3.6-5.1) mmol/L Chloride 105 (96-114) mmol/L Carbon Dioxide 28 (20-32) mmol/L Anion Gap 6 L (7-15) mEq/L BUN 16 (7-30) mg/dL Creatinine 0.6 (0.5-1.5) mg/dL Estimated Creat Clear 39.04 Estimated GFR 94 ml/min Glucose 102 (60-115) mg/dL Calcium 9.3 (8.4-10.6) mg/dL Total Bilirubin 0.6 (0.1-1.5) mg/dL Direct Bilirubin 0.2 (0.0-0.5) mg/dL AST 34 (12-35) U/L ALT 21 (4-35) U/L Alkaline Phosphatase 62 (40-150) U/L Total Protein 7.4 (6.0-8.3) g/dL Albumin 4.5 (3.3-5.0) g/dL Lipase 100 (23-300) U/L POC Creatinine 0.8 (0.6-1.3) mg/dl POC Troponin I 0.01 (0.01-0.04) ng/ml Imaging Data CT scan - abdomen: Radiologist's impression: 1. No acute findings in the abdomen or pelvis. 2. 4.5 centimeter left adnexal cystic lesion recommend routine pelvic ultrasound follow-up. Discharge Plan Discharge Clinical Impression: Abdominal pain Patient Disposition: Home, Self-Care Condition: Stable Instructions: Abdominal Pain (ED) Additional Instructions: Take medications as needed and directed. Follow up with MD for ongoing management and diagnosis or return if symptoms are persistent or worsening. Prescriptions: New hydrocodone-acetaminophen 5-325 mg tablet 1 tab PO Q4-6H PRN (Reason: pain) Qty: 15 0RF No Action aspirin 81 mg capsule 81 mg PO DAILY alprazolam 0.25 mg tablet 0.125 mg PO TID PRN nitroglycerin 0.4 mg tablet, sublingual 0.4 mg sublingual Q5M PRN Patient Comments: Every 5 Minutes X 3 as needed fluticasone propionate 50 mcg/actuation spray,suspension 1 - 2 spray INTRANASAL DAILY PRN cholecalciferol (vitamin D3) 50 mcg (2,000 unit) tablet 50 mcg PO DAILY telmisartan 20 mg tablet 10 mg PO HS metoprolol tartrate 25 mg tablet 6.25 mg PO DAILY furosemide 20 mg tablet 20 mg PO Q OTHER DAY PRN famotidine 10 mg tablet 10 mg PO DAILY diazepam 5 mg tablet 2.5 - 5 mg PO Q6H PRN (Reason: anxiety) meclizine 25 mg tablet 25 mg PO TID PRN Follow Up/Referrals: Kyra Perera PA-C [Primary Care Provider, Family Practice] Stand Alone Forms: [facility] Info Instructions
== END 2024-11-24 12:21 | disposition home or self-care (01) ==
PROVIDERS: Emergency Provider Emergency Medicine Emergency Medical Services; PCP Physician Assistant Medical
DX: R10.11 Right upper quadrant pain (principal)
CPT/HCPCS: 36415; 74177; 80048; 80076; 82565; 83690; 84484; 85025; 99284; Q9967

== ENCOUNTER 2024-12-08 05:09 | Outpatient (CLI) | payer MEDICARE, BC, SELFPAY | END 2024-12-08 05:10 | disposition home or self-care (01) | LOC: AMB 12-12 07:32 | PROVIDERS: PCP Physician Assistant Medical; Visit Provider Emergency Medicine | DX: R07.89 Other chest pain (principal) | CPT/HCPCS: A0425; A0427 ==

== ENCOUNTER 2025-01-08 13:38 | Outpatient (CLI) | payer MEDICARE, BC, SELFPAY ==
--- NOTE | 2025-01-08 14:00 | CRLHL7_ITS ---
For Patients: As a result of the Cures Act, medical imaging exams and procedure reports are released immediately into your electronic medical record. You may view this report before your referring provider. If you have questions, please contact your health care provider. INDICATION: Hypertension TECHNIQUE: Grayscale, color Doppler and spectral Doppler ultrasound of the kidneys and renal arteries performed. COMPARISON: Renal ultrasound 04/14/2020, CT 11/24/2024 FINDINGS: BILATERAL RENAL ARTERY DUPLEX ULTRASOUND ABDOMINAL AORTA: Peak systolic velocity = 118 cm/s. No aortic aneurysm. RIGHT KIDNEY: 10.6 cm in length. There is no hydronephrosis. Peak systolic velocity = 168 cm/second Renal artery to aortic peak systolic velocity ratio = 1.4 Resistive indices: Normal Renal vein = patent LEFT KIDNEY: 9.8 cm in length. There is no hydronephrosis. Peak systolic velocity = 206 cm/second Renal artery to aortic peak systolic velocity ratio = 1.8 Resistive indices: Normal Renal vein = patent Simple left renal cyst measures 1.6 x 1.4 x 1.4 cm. IMPRESSION: No evidence of significant renal artery stenosis. Dictated by Iván Luu MD @ 01/09/2025 9:20:46 AM (Electronically Signed)
== END 2025-01-08 13:39 | disposition home or self-care (01) ==
LOC: US 13:39
PROVIDERS: PCP Physician Assistant Medical; Visit Provider Internal Medicine
DX: I10 Essential (primary) hypertension (principal)
CPT/HCPCS: 76775; 93975

== ENCOUNTER 2025-02-09 18:53 | Emergency (ER) | payer MEDICARE, BC, SELFPAY ==
--- OUTSIDE RECORDS SUMMARY | 2025-01-08 18:47 | XMS_ITS | Encounter Summary ---
Author Organization [facility] Address [address] [place] [address] Care Team Providers Care Plate Developer Name Role Phone Kyra Perera Primary Care Provider [phone] Angel Hollins MD Unavailable Petra Dorado Unavailable [phone] Angel Hollins MD Unavailable Yves Ballard MD Unavailable [phone]- [phone] Reason for Visit * Reason Comments Chest Pain Encounter Details Date Type Department Care Team (Late st Contact Info) Description 01/08/2025 7:47 PM CDT - 01/08/2025 11:06 PM CDT Emergency [facility] Emergency Dept [address] [place] [address] Neil Marsh MD EMERGENCY PHYSICIAN [facility] [address] [place], [place] [id number] Chest pain (Primary Dx); Headache; Hypertension Discharge Disposition: Home or Self Care Social History Tobacco Use Types Packs/Day Years Used Date Smoking Tobacco: Never Smokeless Tobacco: Never Alcohol Use Standard Drinks/Week Comments Not Currently 0 (1 standard drink = 0.6 oz pur e alcohol) PHQ-2 Answer Date Recorded PHQ-2 Score 0 12/10/2024 Adolescent Education Answer Date Record ed Getting School Help Needed Not on file 12/25 Comments No Sex and Gender Information Value Date Recorded Sex Assigned at Not on file Legal 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 Gender Identity Not on file Sexual Orientation Not on file documented as of this encounter Last Filed Vital Signs Vital Sign Reading Time Taken Comments Blood Pressure 186/93 01/08/2025 10:36 PM CDT Pulse 63 01/08/2025 10:36 PM CDT Temperature 36.9 C (98.4 F) 01/08/2025 7:44 PM CDT Respiratory Rate 18 01/08/2025 7:44 PM CDT Oxygen Saturation 98% 01/08/2025 10:36 PM CDT Inhaled Oxygen Concentration - - Weight 62.6 kg (138 lb 0.1 oz) 01/08/2025 7:44 P M CDT Height 157.5 cm (5' 2) 01/08/2025 7:44 PM CDT Body Mass Index 25.24 01/08/2025 7:44 PM CDT documented in this encounter Functional Status * Calculated C-SSRS Risk Score (Lifetime/Recent) Answer Date of Assessment Author No Risk Indicated 01/08/2025 7:44 PM CDT Bridgett Dao RN * [place] Suicide Severity Rating Scale (Screener/Recent Self-Report) Question Answer Date of Assessment Author 1. Wish to be (Past 1 Month) No 025 7:44 PM CDT Bridgett Dao RN 2. Non-Specific Active Suici sunny Thoughts (Past 1 Month) No 01/08/2025 7:44 PM CDT Micah Dao RN 6. Suicidal Behavior (Lifetime) No 7:44 PM CDT Bridgett Dao RN documented as of this encounter Medications at Time of Discharge acetaminophen (TYLENOL) 325 MG tabletIndicatio ns:Right upper quadrant abdominal pain Take 2 tablets (650 mg) by mouth every 4 hours as needed for mild pain or other (and adjunct with moderate or severe pain or per patient request) 09/04/2023 alirocumab (PRALUENT) 75 MG/ML injectable penIndications: Hyperlipidemia LDL goal <70,Statin intolerance,Dot vated lipoprotein(a) Inject 1 mL (75 mg) subcutaneously every 14 days. 6 mL 3 06/13/2024 ALPRAZolam (XANAX) 0.25 MG tablet Take 0.5 tablets by mouth 3 times daily as needed for anxiety. aspirin 81 MG EC tabletIndicatio ns:Right upper quadrant abdominal pain Take 1 tablet (81 mg) by mouth daily 09/04/2023 famotidine (PEPCID) 20 MG tablet Take 20 [...] 5 minutes after 1st dose call 911. Vitamin D3 (VITAMIN D, CHOLECALCIFEROL ,) 25 mcg (1000 units) tablet Take 1 tablet by mouth daily. Pitavastatin Magnesium (ZYPITAMAG) 2 MG TABS Take by mouth. 12/25/2024 documented as of this encounter ED Notes * Neil Marsh MD - 01/08/2025 9:26 PM CDT ED APC SUPERVISION NOTE: I evaluated this patient in conjunction with Kira Ratliff PA-C I have participated in the care of the patient and personally performed prince elements of the history, exam, and medical decision making. HPI: Miya Restrepo is a 74 year old female with history of a stroke, anxiety, cardiomyopathy, who presents with onset of chest pressure and left arm pain 1.5 hours prior to arrival. The patient has no associated shortness of breath, nausea, diaphoresis. She notes that her blood pressure was also elevated and took half of a Xanax and a nitroglycerin with minimal relief. She is also noted [id number] in her head and a mild headache, neck pain, and perioral numbness. Independent Historian: None Review of External Notes: I reviewed the cardiology office visit from 12/12/2024. This reviewed patient's recent ER visit for shaking-like sensation with numbness. She had MRI/MRA at that visit as well. EXAM: Physical Exam Vitals and nursing note reviewed. Constitutional: General: She is not in acute distress. Appearance: She is not ill-appearing. HENT: Head: Normocephalic and atraumatic. Right Ear: External ear normal. Left Ear: External ear normal. Nose: Nose normal. Mouth/Throat: Mouth: Mucous membranes are moist. Eyes: Extraocular Movements: Extraocular movements intact. Conjunctiva/sclera: Conjunctivae normal. Pupils: Pupils are equal, round, and reactive to light. Cardiovascular: Rate and Rhythm: Normal rate and regular rhythm. Heart sounds: No murmur heard. Pulmonary: Effort: Pulmonary effort is normal. No respiratory distress. Breath sounds: Normal breath sounds. No wheezing, rhonchi or rales. Abdominal: General: Abdomen is flat. Bowel sounds are normal. There is no distension. Palpations: Abdomen is soft. Tenderness: There is no abdominal tenderness. There is no guarding or rebound. Musculoskeletal: General: No deformity or signs of injury. Cervical back: Normal range of motion and neck supple. Skin: General: Skin is warm and dry. Findings: No rash. Neurological: Mental Status: She is alert and oriented to person, place, and time. Cranial Nerves: No cranial nerve deficit. Sensory: No sensory deficit. Motor: No weakness. Psychiatric: Behavior: Behavior normal. Independent Interpretation (X-rays, CTs, rhythm strip): CXR: No pneumothorax, infiltrate, or mediastinal widening. Consultations/Discussion of Management or Tests: None MIPS: None MEDICAL DECISION MAKING/ASSESSMENT AND PLAN: 74-year-old female presenting with chest pressure and left arm pain. She is quite hypertensive on arrival but does have history of poorly controlled hypertension. She also has a nonspecific headache and tingling in her head and lips. The symptoms are bilateral and she has no noticeable neurologic deficits on exam so I have low suspicion for stroke at this time. I am somewhat concerned about ACS given her chest pressure and left arm pain. EKG shows no ischemic changes. Fortunately her troponin is normal x 2. D-dimer was also checked and normal so have low suspicion for PE. Chest x-ray shows nomediastinal widening and she has no pulse deficits to suggest a aortic dissection. 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 We discussed return precautions. DIAGNOSIS: ICD-10-CM 1. Chest pain R07.9 2. Headache R51.9 3. Hypertension I10 Neil Marsh MD 01/08/2025 [facility] EMERGENCY DEPT Neil Marsh MD 01/09/25 0000 * Kira Ratliff PA-C - 01/08/2025 8:29 PM CDT Emergency Department Note History of Present Illness Chief Complaint Chest Pain HPI Miya Restrepo is a 74-year-old female with past medical history for CVA who presents today with chest pressure and left arm pain. Patient notes that this started about an hour and a half prior to arrival. Patient notes that has been constant since then. She notes that his left-sided chest pressure with radiation into the upper arm. She denies any symptoms like this prior. She denies any shortness of breath associated with this. Patient did take Xanax and nitroglycerin, which provided no significant relief. Patient also notes a generalized headache, neck pain, and perioral numbness that started at the same time as this. She does states she has had previous symptoms like this prior, and hashad workup for stroke previously. She denies any vision changes, one-sided weakness or numbness. Patient denies any recent surgery or travel. She denies any leg swelling or history of blood clots. Patient notes difficulties controlling her blood pressure given significant allergies. Independent Historian None Review of External Notes 12/08/24-emergency medicine visit for chest pain, hypertension, along with head pain and arms numbness, MRI with small chronic infarcts in the right basal ganglia and left moore, no acute or subacuteinfarct Past Medical History Medical History and Problem List Past Medical History: Diagnosis Date Anxiety CAD (coronary artery disease) HLD (hyperlipidemia) HTN (hypertension) SHERRIE (obstructive sleep apnea) PONV (postoperative nausea and vomiting) Medications acetaminophen (TYLENOL) 325 MG tablet alirocumab (PRALUENT) 75 MG/ML injectable pen ALPRAZolam (XANAX) 0.25 MG tablet aspirin 81 MG EC tablet famotidine (PEPCID) 20 MG tablet furosemide (LASIX) 20 MG tablet metoprolol tartrate (LOPRESSOR) 25 MG tablet nitroGLYcerin (NITROSTAT) 0.4 MG sublingual tablet Vitamin D3 (VITAMIN D, CHOLECALCIFEROL,) 25 mcg (1000 units) tablet Surgical History Past Surgical History: Procedure Laterality Date CHOLECYSTECTOMY ESOPHAGOSCOPY, GASTROSCOPY, DUODENOSCOPY (EGD), COMBINED N/A 09/04/2023 Procedure: Esophagoscopy, gastroscopy, duodenoscopy (EGD), combined using cold bx forcep; Surgeon: Jensen Conrteras MD; Location: GI Physical Exam Patient Vitals for the past 24 hrs: BP Temp Temp src Pulse Resp SpO2 Height Weight 01/08/25 2236 (!) 186/93 -- -- 63 -- 98 % -- -- 01/08/252225 (!) 179/99 -- -- 63 -- 96 % -- -- 01/08/252215 (!) 204 -- -- 71 -- 96 % -- -- 01/08/252205 (!) 194/101 -- -- 70 -- 95 % -- -- 01/08/252155 (!) 188/94 -- -- 63 -- 95 % -- -- 01/08/252145 (!) 187/91 -- -- 66 -- 97 % -- -- 01/08/252135 (!) 190/99 -- -- -- -- 98 % -- -- 01/08/252110 (!) 180/94 -- -- 64 -- 98 % -- -- 01/08/252049 (!) 163/95 -- -- 65 -- 95 % -- -- 01/08/252044 (!) 172/104 -- -- 67 -- 97 % -- -- 01/08/252041 (!) 182/90 -- -- 63 -- 97 % -- -- 01/08/252040 (!) 182/90 -- -- 67 -- -- -- -- 01/08/252036 (!) 172/92 -- -- 67 -- 95 % -- -- 01/08/252026 (!) 189/101 -- -- 67 -- 97 % -- -- 01/08/252021 (!) 179/94 -- -- 69 -- 96 % -- -- 01/08/252016 (!) 179/87 -- -- 74 -- 96 % -- -- 01/08/252011 (!) 170/103 -- -- 70 -- 95 % -- -- 01/08/252006 (!) 203/104 -- -- 73 -- 95 % -- -- 01/08/252001 (!) 205/101 -- -- 74 -- 95 % -- -- 01/08/251956 (!) 246/117 -- -- 76 -- 97 % -- -- 01/08/251951 (!) 241/114 -- -- 77 -- -- -- -- 01/08/251943 (!) 215/110 98.4 ??F (36.9 ??C) Temporal 76 18 96 % 1.575 m (5' 2) 62.6 kg (138 lb 0.1 oz) Physical Exam General: No acute distress Head: normocephalic, atraumatic Eyes: Conjunctiva normal, PERRL, EOMs intact Throat: moist mucus membranes Neck: ROM normal Cardiovascular: regular rate, regular rhythm, no murmurs Pulmonology: Regular rate, normal effort, no wheezing, crackles, or rales Abdomen: Soft, non-tender, no masses or organomegaly, Bowel sounds present Skin: Warm, dry Neuro: Mental status Alertness: Alert Orientation: Oriented to self, place, and time Language: normal naming, normal fluency, and no dysarthria Cranial nerves CN II: acuity grossly intact, visual joyce intact, and direct pupillary light response normal CN III/IV/: EOMI and consensual pupillary light reflex normal CN V: facial sensation intact to light touch throughout CN VII: face symmetric CN VIII: finger rub normal CN IX/X: palate & uvula symmetric CN XI: equal shoulder shrug CN XII: tongue midline Motor no drift and normal strength in all four extremities Sensory intact sensation to light touch distally in all 4 extremities and face Coordination [id number] normal and heel-andrews normal Psych: normal mood and affect Diagnostics Lab Results Labs Ordered and Resulted from Time of ED Arrival to Time of ED Departure BASIC METABOLIC PANEL (LIMITED OCCURRENCES) - Normal Result Value Sodium 139 Potassium 4.3 Chloride 102 Carbon Dioxide (CO2) 24 Anion Gap 13 Urea Nitrogen 18.0 Creatinine 0.75 GFR Estimate 83 Calcium 9.7 Glucose 97 TROPONIN T, HIGH SENSITIVITY - Normal Troponin T, High Sensitivity 7 D DIMER QUANTITATIVE - Normal D-Dimer Quantitative 0.36 TROPONIN T, HIGH SENSITIVITY - Normal Troponin T, High Sensitivity <6 CBC WITH PLATELETS AND DIFFERENTIAL WBC Count 6.58 RBC Count 5.04 Hemoglobin 15.1 Hematocrit 45.0 MCV 89.3 MCH 30.0 MCHC 33.6 RDW 13.4 Platelet Count 196 % Neutrophils 55.2 % Lymphocytes 31.9 % Monocytes 9.1 % Eosinophils 2.7 % Basophils 0.6 % Immature Granulocytes 0.5 NRBCs per 100 WBC 0.0 Absolute Neutrophils 3.63 Absolute Lymphocytes 2.10 Absolute Monocytes 0.60 Absolute Eosinophils 0.18 Absolute Basophils 0.04 Absolute Immature Granulocytes 0.03 Absolute NRBCs <0.03 Imaging XR Chest 2 Views Final Result IMPRESSION: Heart size and pulmonary vascularity within normal limits. No focal lung infiltrates. Osseous structures grossly intact. Visualized upper abdomen unremarkable. EKG ECG results from 01/08/25 EKG 12-lead, tracing only Value Systolic Blood Pressure Diastolic Blood Pressure Ventricular Rate 77 Atrial Rate 77 VT Interval 154 QRS Duration 84 QT 354 QTc 400 P Jadwin 46 R AXIS 34 T Jadwin 70 Interpretation ECG Sinus rhythm Nonspecific ST and T wave abnormality Abnormal ECG When compared with ECG of 08-Dec-2024 06:13, No significant change was found Independent Interpretation CXR: No pneumothorax, infiltrate, or pleural effusion. ED Course Medications Administered Medications metoprolol tartrate (LOPRESSOR) half-tab 12.5 mg (12.5 mg Oral $Given 01/08/252040) sodium chloride 0.9% BOLUS 1,000 mL (0 mLs Intravenous Stopped 01/08/252214) acetaminophen (TYLENOL) tablet 975 mg (975 mg Oral $Given 01/08/252154) Procedures Procedures Discussion of Management None ED Course Additional Documentation None Medical Decision Making / Diagnosis [facility] Diagnoses: None MIPS None [facility] Miya Restrepo is a 74 year old female with past medical history of CVA who presents today with left-sided chest pressure. HPI as stated above. Patient also endorses a generalized headache, neck pain, and bilateral arm numbness. Upon chart review the patient did have similar presenting symptoms and had an MRI visit last month, where she had an MRI which was negative for any acute or subacute infarcts. Patient does note that symptoms are the same as a presentation at that point in time in termsof headache and bilateral arm numbness. She denies any one-sided weakness or numbness. Patient alsowith a significantly reassuring neurologic exam with no focal deficits. Upon arrival the patient issignificantly hypertensive, but otherwise vitally stable. Laboratory studies were reassuring. Givenpatient's age, did proceed with D- dimer, which was negative. X-ray with no signs of infiltrate or pleural effusion. Patient's troponin was negative, and repeat was stable. Given patient's hypertension, proceeded with her typical dose of metoprolol, which did help with her hypertension. Patient notes typical systolic blood pressure 150- 160. Patient did feel improved after fluids, Tylenol dose, andimprovement in the blood pressure. Patient significantly reassured with negative workup. At this point she is vitally stable to discharge. Patient has had recent cardiology visit had been planned to follow-up within 3 months. I think this is reasonable at this point in time. She can follow-up with her primary care doctor for further hypertensive recommendations. Disposition The patient was discharged. Diagnosis ICD-10-CM 1. Chest pain R07.9 2. Headache R51.9 3. Hypertension I10 Discharge Medications New Prescriptions No medications on file Kira Ratliff PA-C This patient was staffed with Dr. Neil Marsh, who saw the patient and agreed with the plan. Technology Attestation This note was generated with the assistance of technology. I have reviewed and edited the content as needed and attest that it accurately reflects my clinical evaluation and medical decision-making. Kira Ratliff PA-C 01/08/25 0679 * Bridgett Dao RN - 01/08/2025 7:43 PM CDT Was talking on the phone with her grandson when she noticed chest heaviness and pain to left upper arm and now right forearm pain. BP 198/113 - took a xanax and nitroglycerin tab. Didn't help with chest pain. documented in this encounter Plan of Treatment Not on file documented as of this encounter Procedures Procedure Name Priority Date/Time Associated Diagnosis Comments TROPONIN T, HIGH SENSITIVITY STAT 01/08/2025 10:12 PM CDT XR CHEST 2 VIEWS STAT 01/08/2025 9:08 PM CDT EXTRA TUBE STAT 01/08/2025 8:02 PM CDT EXTRA RED TOP TUBE STAT 01/08/2025 8: 02 PM CDT EXTRA BLUE TOP TUBE STAT 01/08/2025 8 :02 PM CDT D DIMER QUANTITATIVE STAT 01/08/2025 8:02 PM CDT CBC WITH PLATELETS AND DIFFERENTIAL STAT 01/08/2025 8:01 PM CDT CBC WITH PLATELETS AND DIFFERENTIAL (LIMITED OCCURRENCES) STAT 01/08/2025 8:01 PM CDT BASIC METABOLIC PANEL (LIMITED OCCURRENCES) STAT 01/08/2025 8:01 PM CDT TROPONIN T, HIGH SENSITIVITY STAT 01/08/2025 8:01 PM CDT EKG 12-LEAD, TRACING ONLY STAT 01/08/2025 7:51 PM CDT documented in this encounter Results * Troponin T, High Sensitivity (01/08/2025 10:12 PM CDT) Troponin T, High Sensitivity <6 <=14 ng/L 01/08/2025 10:39 PM CDT [facility] Comment: Either a High [...] follow-up, or urgent outpatient provocative testing. Blood STRUCTURE OF RIGHT UPPER LIMB / Unknown Venipuncture / Unknown 01/08/2025 10:12 PM CDT 01/08/2025 10:17 PM CDT us Kira Ratliff PA-C LAB - BLOOD ORDERABLES Final R esult [facility] Acute Care Lab [address] Lab (1st floor, no room number) [place] [address] * XR Chest 2 Views (01/08/2025 9:08 PM CDT) Anatomical Region Laterality Modality Chest Digital Radiogra phy 01/08/2025 9:08 PM CDT Impressions 01/08/2025 9:39 PM CDT IMPRESSION: Heart size and pulmonary vascularity within normal limits. No focal lung infiltrates. Osseous structures grossly intact. Visualized upper abdomen unremarkable. Narrative 01/08/2025 9:39 PM CDT EXAM: XR CHEST 2 VIEWS LOCATION: [facility] DATE: 01/08/2025 INDICATION: Chest pressure COMPARISON: 12/08/2024 Procedure Note Bharathi Neville MD - 01/08/2025 EXAM: XR CHEST 2 VIEWS LOCATION: [facility] DATE: 01/08/2025 INDICATION: Chest pressure COMPARISON: 12/08/2024 IMPRESSION: Heart size and pulmonary vascularity within normal limits.No focal lung infiltrates. Osseous structures grossly intact. Visualizedupper abdomen unremarkable. us Kira Ratliff PA-C IMG DIAGNOSTIC IMAGING ORDERAB LES Final Result * D dimer quantitative (01/08/2025 8:02 PM CDT) D-Dimer Quantitative 0.36 0.00 - 0.50 ug/mL FEU 01/08/2025 8:26 PM CDT [facility] Blood STRUCTURE OF RIGHT UPPER LIMB / Unknown Venipuncture / Unknown 01/08/2025 8:02 PM CDT 01/08/2025 8:06 PM CDT Narrative [facility] - 01/08/2025 8:26 PM CDT This D-dimer assay is intended for use in conjunction with a clinical pretest probability assessment model to exclude pulmonary embolism (PE) and deep venous thrombosis (DVT) in outpatients suspected of PE or DVT. The cut-off value is 0.50 ug/mL FEU. For patients 50 years of age or older, the application of age-adjusted cut-off values for D-Dimer may increase the specificity without significant effect on sensitivity. The literature suggested calculation age adjusted cut-off in ug/L = age in years x 10 ug/L. The results in this laboratory are reported as ug/mL rather than ug/L. The calculation for age adjusted cut off in ug/mL= age in years x 0.01 ug/mL. For example, the cut off for a 76 year old male is 76 x 0.01 ug/mL = 0.76 ug/mL (760 ug/L). M Ab et al. Age adjusted D-dimer cut-off levels to rule out pulmonary embolism: The ADJUST-PE Study. TEODORO 2014;311:0903-4922.; SHIRA Connelly et al. Diagnostic accuracy of conventional or age adjusted D-dimer cutoff values in older patients with suspected venous thromboembolism. Systemic review and meta-analysis. BMJ 2013:346:f2492. Kira Ratliff PA-C LAB - BLOOD ORDERABLES Final R esult LABORATORY [facility] Acute Care Lab [address] [facility] Lab (1st floor, no room number) [place] [address], [facility] * Extra Red Top Tube (01/08/2025 8:02 PM CDT) Hold Specimen [facility] 01/08/2025 9:16 PM CDT [facility] Blood STRUCTURE OF RIGHT UPPER LIMB / Unknown Venipuncture / Unknown 01/08/2025 8:02 PM CDT 01/08/2025 8:06 PM CDT us Kira Ratliff PA-C LAB - BLOOD ORDERABLES Final R esult Performing Organization Address City/[facility]/ZIP Co de Phone Number [facility] Lab [address] Lab (1st floor, no room number) [place] [address] * Extra Blue Top Tube (01/08/2025 8:02 PM CDT) Hold Specimen [facility] 01/08/2025 9:16 PM CDT [facility] Blood STRUCTURE OF RIGHT UPPER LIMB / Unknown Venipuncture / Unknown 01/08/2025 8:02 PM CDT 01/08/2025 8:06 PM CDT us Kira Ratliff PA-C LAB - BLOOD ORDERABLES Final R esult Performing Organization Address City/[facility]/ZIP Co de Phone Number [facility] Lab [address] Lab (1st floor, no room number) [place] [address], [place] * CBC with platelets and differential (01/08/2025 8:01 PM CDT) Pathologist [facility] WBC Count 6.58 4.00 - 11.00 10e3/uL 01/08/2025 8:09 PM CDT [facility] RBC Count 5.04 3.80 - 5.20 10e6/uL 01/08/2025 8:09 PM CDT [facility] Hemoglobin 15.1 11.7 - 15.7 g/dL 01/08/2025 8:09 PM CDT [facility] Hematocrit 45.0 35.0 - 47.0 % 01/08/2025 8:09 PM CDT [facility] MCV 89.3 78.0 - 100.0 fL 01/08/2025 8:09 PM CDT [facility] MCH 30.0 26.5 - 33.0 pg 01/08/2025 8:09 PM CDT [facility] MCHC 33.6 31.5 - 36.5 g/dL 01/08/2025 8:09 PM CDT [facility] RDW 13.4 10.0 - 15.0 % 01/08/2025 8:09 PM CDT [facility] Platelet Count 196 150 - 450 10e3/uL 01/08/2025 8:09 PM CDT [facility] % Neutrophils 55.2 % 01/08/2025 8:09 PM CDT [facility] % Lymphocytes 31.9 % 01/08/2025 8:09 PM CDT [facility] % Monocytes 9.1 % 01/08/2025 8:09 PM CDT [facility] % Eosinophils 2.7 % 01/08/2025 8:09 PM CDT [facility] % Basophils 0.6 % 01/08/2025 8:09 PM CDT [facility] % Immature Granulocytes 0.5 % 01/08/2025 8:09 PM CDT [facility] NRBCs per 100 WBC 0.0 <1.0 /100 025 8:09 PM CDT [facility] Absolute Neutrophils 3.63 1.60 - 8.30 10e3/uL 01/08/2025 8:09 PM CDT [facility] Absolute Lymphocytes 2.10 0.80 - 5.30 10e3/uL 01/08/2025 8:09 PM CDT [facility] Absolute Monocytes 0.60 0.00 - 1.30 10e3/uL 01/08/2025 8:09 PM CDT [facility] Absolute Eosinophils 0.18 0.00 - 0.70 10e3/uL 01/08/2025 8:09 PM CDT [facility] Absolute Basophils 0.04 0.00 - 0.20 10e3/uL 01/08/2025 8:09 PM CDT [facility] Absolute Immature Granulocytes 0.03 <=0.40 10e3/uL 01/08/2025 8:09 PM CDT [facility] Absolute NRBCs <0.03 10e3/uL 01/08/2025 8:09 PM CDT [facility] Blood STRUCTURE OF RIGHT UPPER LIMB / Unknown Venipuncture / Unknown 01/08/2025 8:01 PM CDT 01/08/2025 8:05 PM CDT us Kira Ratliff PA-C LAB - BLOOD ORDERABLES Final R esult Performing Organization Address City/[facility]/ZIP Co de Phone Number [facility] Acute Care Lab [address] Lab (1st floor, no room number) [place] [address] * Troponin T, High Sensitivity (01/08/2025 8:01 PM CDT) Troponin T, High Sensitivity 7 <=14 ng/L 01/08/2025 8:27 PM CDT LABORATORY Comment: Either a High Sensitivity [...] follow-up, or urgent outpatient provocative testing. Blood STRUCTURE OF RIGHT UPPER LIMB / Unknown Venipuncture / Unknown 01/08/2025 8:01 PM CDT 01/08/2025 8:06 PM CDT us Kira Ratliff PA-C LAB - BLOOD ORDERABLES Final R esult [facility] Acute Care Lab [address] Lab (1st floor, no room number) [place] [address], [facility] * Basic Metabolic Panel (Limited Occurrences) (01/08/2025 8:01 PM CDT) Sodium 139 135 - 145 mmol/L 01/08/2025 8:27 PM CDT LABORATORY Potassium 4.3 3.4 - 5.3 mmol/L 01/08/2025 8:27 PM CDT LABORATORY Chloride 102 98 - 107 mmol/L 01/08/2025 8:27 PM CDT LABORATORY Carbon Dioxide (CO2) 24 22 - 29 mmol/L 01/08/2025 8:27 PM CDT LABORATORY Anion Gap 13 7 - 15 mmol/L 01/08/2025 8:27 PM CDT LABORATORY Urea Nitrogen 18.0 8.0 - 23.0 mg/dL 01/08/2025 8:27 PM CDT LABORATORY Creatinine 0.75 0.51 - 0.95 mg/dL 01/08/2025 8:27 PM CDT LABORATORY GFR Estimate 83 >60 mL/min/1.7 3m2 01/08/2025 8:27 PM CDT RH LABORATORY Comment:eGFR calculated us2020 CKD-EPI equation. Calcium 9.7 8.8 - 10.4 mg/dL 01/08/2025 8:27 PM CDT LABORATORY Glucose 97 70 - 99 mg/dL 01/08/2025 8:27 PM CDT LABORATORY Blood STRUCTURE OF RIGHT UPPER LIMB / Unknown Venipuncture / Unknown 01/08/2025 8:01 PM CDT 01/08/2025 8:06 PM CDT us Kira Ratliff PA-C LAB - BLOOD ORDERABLES Final R esult LABORATORY [facility] [address] Lab (1st floor, no room number) [place] [address], [facility] * EKG 12-lead, tracing only (01/08/2025 7:51 PM CDT) Systolic Blood Pressure mmHg RADIOLOGY RESULTS Diastolic Blood Pressure mmHg RADIOLOGY RESULTS Ventricular Rate 77 BPM RAD IOLOGY RESULTS Atrial Rate 77 BPM RADIOLOG Y RESULTS VT Interval 154 ms RADIOLOG Y RESULTS QRS Duration 84 ms RADIOLO GY RESULTS QT 354 ms RADIOLOGY RESULTS QTc 400 ms RADIOLOGY RESULTS P Jadwin 46 degrees RADIOLOGY RESULTS R AXIS 34 degrees RADIOLOGY RESULTS T Jadwin 70 degrees RADIOLOGY RESULTS Interpretation ECG Sinus rhythm Nonspecific ST and T wave abnormality Abnormal ECG When compared with ECG of 08-Dec-2024 06:13, No significant change was found Unconfirmed report - interpretation of this ECG is computer generated - see medical record for final interpretation Confirmed by - EMERGENCY ROOM, PHYSICIAN ([id number]), scientific publications editor PETRA WILSON ([id number]) on 01/09/2025 6:44:11 AM RADIOLOGY RESULTS 01/08/2025 7:51 PM CDT 01/09/2025 6:44 AM CDT us Neil Marsh MD ECG ORDERABLES Edited Result - Final RADIOLOGY RESULTS documented in this encounter Visit Diagnoses Diagnosis Chest pain- Primary Chest pain, unspecified Headache Hypertension Unspecified essential hypertension documented in this encounter Administered Medications Inactive Administered Medications - up to 3 most recent administrations Medication Order MAR Action Action Date Dose Rate Site acetaminophen (TYLENOL) tablet 975 mg 975 mg, Oral, ONCE, On Mon01/08/25 at 2150, For 1 dose, Maximum acetaminophen dose from all sources = 75 mg/kg/day not to exceed 4 grams/day. $Given 01/08/2025 9:55 PM CDT 975 mg metoprolol tartrate (LOPRESSOR) half-tab 12.5 mg 12.5 mg, Oral, 2 TIMES DAILY, First dose on Mon01/08/25 at 2034, Tablets can be crushed and given via enteral route. $Given 01/08/2025 8:41 PM CDT 12.5 mg sodium chloride 0.9% BOLUS 1,000 mL Intravenous, 1,000 mL, ONCE, at 1,000 mL/hr, Administer over 1 Hours, On Mon01/08/25 at 2030, For 1 dose $New Bag 01/08/2025 8:42 PM CDT 1,000 mLs 1000 mL/hr documented in this encounter Active and Recently Administered Medications Times are shown in CDT. Scheduled Medication Order 01/06/2025 01/07/2025 01/08/2025 acetaminophen (TYLENOL) tablet 975 mg (COMPLETED) 975 mg, Oral, ONCE, On Mon01/08/25 at 2150, For 1 dose, Maximum acetaminophen dose from all sources = 75 mg/kg/day not to exceed 4 grams/day. 2154 ($Given - Provi shaylee: Aung Garcia RN) metoprolol tartrate (LOPRESSOR) half-tab 12.5 mg 12.5 mg, Oral, 2 TIMES DAILY, First dose on Mon01/08/25 at 2034, Tablets can be crushed and given via enteral route. 2040 ($Given - Provi shaylee: Aung Garcia RN) sodium chloride 0.9% BOLUS 1,000 mL (COMPLETED) Intravenous, 1,000 mL, ONCE, at 1,000 mL/hr, Administer over 1 Hours, On Mon01/08/25 at 2030, For 1 dose 2041 ($New Bag - Pro vider: Aung Garcia RN)2214 (Stopped - Provider: Aung Garcia RN) documented in this encounter Care Teams Plate Developer Relationship Specialty Start Date End Date Kyra Perera [address] [place] [address] PCP - General Physician Stewardesses Teacher 03/31/22 Angel Hollins MD [address] [address] Neurology 07/20/23 Petra Dorado PA [address] [place] [address] Physician Stewardesses Teacher Physical Medicine and Rehabilitation 07/20/23 Angel Hollins MD [address] [address] Assigned Neuroscience Provider 08/03/23 Yves Ballard MD [address] [place] [address] Assigned Heart and Vascular Provider 12/04/23 documented as of this encounter
--- OUTSIDE RECORDS SUMMARY | 2025-01-17 08:42 | XMS_ITS ---
Author Organization [facility] Address [address] [place] [address] , [facility] [address] [place] [address] Phone Care Team Providers Care Hand Tool Lapper Name Role Phone Paulino CHARLES, Shawnagunnar CalderaMelissa Unavailable Conditions or Problems No information available. Medications No information available. Medications Administered No information available. Allergies, Adverse Reactions, Alerts No information available. Results Date Name Value Unit Range Flag Description Office Visit: Office Visit f ax MEDS REVIEW Done Documenta tion of current medications (procedure) Plan of Care Type Date Detail Appointment 10:00 AM Fredi Worthy MD, [address] [place] [address], [address], [place], [address], Appointment 11:30 AM Fredi Worthy MD, [address] [place] [address], [address], [place], [address], Appointment 12:00 PM Fredi Worthy MD, [address] [place] [address], [address], [address], Pending order MRA-Neck W/WO Pending order MRA-Head W/O Pending order Follow up Pending order Patient Instruct ions Pending order Patient Instruct ions Pending order Follow up Pending order MRA-Head W/O Pending order MRA-Neck W/WO Procedures No information available. Vital Signs Date Name Value Unit Description Height 145 [in_us] height E&M Immunizations No information available. Advance Directives No information available.
--- OUTSIDE RECORDS SUMMARY | 2025-01-17 08:42 | XMS_ITS ---
Author Organization [facility] Address [address] [place] [address] , [facility] [address] [place] [address] Phone Care Team Providers Care Legislators Name Role Phone Paulino CHARLES, Shawnagunnar CalderaMelissa [...] Detail Appointment 10:00 AM Fredi Worthy MD, [address] [place] [address], [address], [place], [address], Appointment 11:30 AM Fredi Worthy MD, [address] [place] [address], [address], [place], [address], Appointment 12:00 PM Fredi Worthy MD, [address] [place] [address], [address], [address], Pending order MRA-Neck W/WO Pending order MRA-Head [...]
--- OUTSIDE RECORDS SUMMARY | 2025-01-17 10:30 | XMS_ITS | Encounter Summary ---
Author Organization [facility] Address [address] [place] [address] Care Team Providers Care Centerless Grinder Name Role Phone Trever Kyra Bell Primary Care Provider [phone] Angel Hollins MD Unavailable [phone] Petra Dorado Unavailable [phone] Angel Hollins MD Unavailable [phone] Yves Ballard MD Unavailable [phone] Reason for Visit * Reason Comments RECHECK Follow up to 12/10/24 * Consultation (Routine: Next available opening) - Pending Review Specialty Diagnoses / Procedures Referred By Contac t Referred To Contact Diagnoses Hyperlipidemia LDL goal <70 Statin intolerance Elevated lipoprotein(a) Atherosclerosis of abdominal aorta Cerebrovascular accident (CVA), unspecified mechanism (H) Lymphedema Benign essential hypertension Yves Ballard MD [address] [place] [address] Phone: tel: fax: Referral ID Status Reason Start Date Expiration Date V isits Requested Visits Authorized [id number] Pending Review 12/11/2024 12/11/2025 1 1 Encounter Details Date Type Department Care Team (Latest Contact Info) Description 01/17/2025 10:30 AM CONSTRUCTION CHECKER Office Visit [facility] [place] [address] [place] [phone] Yves Ballard MD [address] [place] [address] Hyperlipidemia LDL goal <70 (Primary Dx); Elevated lipoprotein(a); Atherosclerosis of abdominal aorta; Cerebrovascular accident (CVA), unspecified mechanism (H); Statin intolerance; Hypertension with intolerance to multiple antihypertensive drugs; Medication intolerance ( multiple 40 drugs) Social History Tobacco Use Types Packs/Day Years [...] on file Legal Sex Female 3:34 AM CONSTRUCTION CHECKER Gender Identity Not on file Sexual Orientation Not on file documented as of this encounter Last Filed Vital Signs Vital Sign Reading Time Taken Comments Blood Pressure 171/81 01/17/2025 10:44 AM CONSTRUCTION CHECKER Pulse 76 01/17/2025 10:44 AM CONSTRUCTION CHECKER Temperature - - Respiratory Rate - - Oxygen Saturation 97% 01/17/2025 10:44 AM CONSTRUCTION CHECKER Inhaled Oxygen Concentration - - Weight 63.1 kg (139 lb 3.2 oz) 01/17/2025 10:44 AM CONSTRUCTION CHECKER Height - - Body Mass Index 25.46 01/08/2025 7:44 PM CDT documented in this encounter Patient Instructions * Patient Instructions* Yves Ballard MD - 01/17/2025 10:30 AM CONSTRUCTION CHECKER Please talk to primary and see Pharm D ( child life specialist due to multiple drug allergies) and consider seeing emery grinder If they clear, I can prescribe Bempedoic acid for lipids and Minoxidil for BP Take Zypitamag 2 mg as advised Monitor BP at home Follow up virtual or office in 3-4 months TRUCTION CHECKER TRUCTION CHECKER TRUCTION CHECKER documented in this encounter Progress Notes * Breonna White MA - 01/17/2025 10:30 AM CST [facility] Patient is here for [...] No Has homecare services and agency name: Margarita White MA TRUCTION CHECKER * Yves Ballard MD - 01/17/2025 10:[address] [facility] VASCULAR MEDICINE FOLLOW-UP VISIT Multiple questions and [...] Resource Strain: Low Risk (04/16/2024) [facility] Financial Resource Strain Difficulty of Paying Living Expenses: 3 Difficulty of Paying Living Expenses: Not on file Food Insecurity: No Food Insecurity (04/16/2024) Received from [employer] [facility] Food Insecurity Do you worry your food will run out before you are able to buy more?: 1 Transportation Needs: No Transportation Needs (04/16/2024) Received from [employer] [facility] Transportation Needs Does lack of transportation keep you from medical appointments?: 1 Does lack of transportation keep you from work, meetings or getting things that you need?: 1 Physical Activity: Not on file Stress: Not on file Social Connections: Socially Integrated (04/16/2024) Received from [employer] [facility] Social Connections Do you often feel lonely or isolated from those around you?: 0 Interpersonal Safety: Not on file Housing Stability: Low Risk (04/16/2024) [facility] [employer] [facility] What is your housing situation [...] renal denervation for blood pressure control at [facility] in last week of June 2024 which [...] the process of talking to Pharm.D. at [facility] etc. Refill Zypitamag and send the prescription to [place] suggested patient to take 2 times a [...] a day She will benefit with seeing emery grinder for 40 different medication allergies limiting options [...] of care for this/these conditions. Yves Ballard MD,FASARA,FSVM,FNLA, FACP Vascular Medicine Clinical [...] Hives Isosorbide Palpitations Propranolol Anxiety and Headache TRUCTION CHECKER documented in this encounter Plan of Treatment [...] allergy documented in this encounter Care Teams Centerless Grinder Relationship Specialty Start Date End Date Kyra Perera [address] [place] [address] PCP - General Physician Freight Loader 03/31/22 Angel Hollins MD [address] [address] Neurology 07/20/23 Petra Dorado PA [address] [place] [address] Physician Freight Loader Physical Medicine and Rehabilitation 07/20/23 Angel Hollins MD [address] [address] Assigned Neuroscience Provider 08/03/23 Yves Ballard MD [address] [facility] [address] [place] [address] Assigned Heart and Vascular Provider 12/04/23 documented as of this encounter
--- OUTSIDE RECORDS SUMMARY | 2025-01-30 16:32 | XMS_ITS | Encounter Summary ---
Author Organization [place] Address [address] [place] [id number] Care Team Providers Care Associate Professor Of Communication Name Role Phone Kyra Perera Primary Care Provider [phone] Angel Hollins MD Unavailable Petra Dorado Unavailable [phone] Angel Hollins MD Unavailable Yves Ballard MD Unavailable [phone]- [phone] Reason for Visit * Reason Comments Slurred Speech Numbness Encounter Details Date Type Department Care Team (Late st Contact Info) Description 01/30/2025 4:32 PM BRANCH OFFICE ADMINISTRATOR - 01/30/2025 11:[address] [facility] Emergency [facility] Emergency Dept [address] [place] [address] Andrea Gamboa DO [employer] [facility] [address] [place], [place] [id number] Dysarthria (Primary Dx); Right facial numbness; Nonintractable [...] on file Legal Sex Female 3:34 AM BRANCH OFFICE ADMINISTRATOR Gender Identity Not on file Sexual Orientation Not on file documented as of this encounter Last Filed Vital Signs Vital Sign Reading Time Taken Comments Blood Pressure 155/85 01/30/2025 11:38 PM BRANCH OFFICE ADMINISTRATOR Pulse 68 01/30/2025 11:38 PM BRANCH OFFICE ADMINISTRATOR Temperature 36.9 C (98.5 F) 01/30/2025 4:36 PM BRANCH OFFICE ADMINISTRATOR Respiratory Rate 18 01/30/2025 4:36 PM BRANCH OFFICE ADMINISTRATOR Oxygen Saturation 98% 01/30/2025 11:39 PM BRANCH OFFICE ADMINISTRATOR Inhaled Oxygen Concentration - - Weight 60 kg (132 lb 4.4 oz) 01/30/2025 4:36 PM BRANCH OFFICE ADMINISTRATOR Height - - Body Mass Index 24.19 01/08/2025 7:44 PM CDT documented in this encounter Functional Status * Calculated C-SSRS Risk Score (Lifetime/Recent) Answer Date of Assessment Author No Risk Indicated 01/30/2025 5:08 PM BRANCH OFFICE ADMINISTRATOR Dax Rocha RN * Gordon Suicide Severity Rating Scale (Screener/Recent Self-Report) Question Answer Date of Assessment Author 1. Wish to be (Past 1 Month) No 025 5:08 PM BRANCH OFFICE ADMINISTRATOR Anjelica Rocha, MARY 2. Non-Specific Active Suici sunny Thoughts (Past 1 Month) No 01/30/2025 5:08 PM BRANCH OFFICE ADMINISTRATOR Anjelica Rocha, MARY 6. Suicidal Behavior (Lifetime) No 5:08 PM BRANCH OFFICE ADMINISTRATOR Anjelica Rocha, MARY documented as of this encounter Discharge Instructions * Discharge Instructions* Andrea Gamboa DO - 01/30/2025 10:56 PM BRANCH OFFICE ADMINISTRATOR Please follow-up with your primary care provider and and neurologist regarding your visit to the [facility]. Please return to the emergency department should you experience any of the symptoms we specificallydiscussed, including but not limited to recurrence or worsening of your symptoms, or development ofany new and concerning symptoms such as fever, chest pain, shortness of breath, worsening headache,new lightheaded dizziness, new numbness or weakness, or other new neurological symptoms. CH OFFICE ADMINISTRATOR CH OFFICE ADMINISTRATOR * Attachments The following attachments cannot be sent through Care Everywhere. * Dysarthria: General Info ([facility]) * Numbness and Tingling ([facility]) * Headache ([facility]) documented in this encounter Medications at Time [...] call 911. Pitavastatin Magnesium (ZYPITAMAG) 2 MG TABSIndications :Hyperlipidemia LDL goal <70 Take 2 mg by mouth daily. 30 tablet 5 01/17/2025 Vitamin D3 (VITAMIN D, CHOLECALCIFEROL ,) 25 mcg (1000 units) tablet Take 1 tablet by mouth daily. documented as of this encounter Consult Notes * Jadon Loya MD - 01/30/2025 5:07 PM CST [facility] Stroke Telephone Note I was called by [...] CT read by Stroke Neuro Provider 01/30/25 1654 Was stroke code de-escalated? Yes 01/30/[address] head: No acute intracranial [...] To page me or covering stroke neurology preanalytics team lead, click here: AMCOM Choose Research Instrumentation Technician tab at top, then select NEUROLOGY/ALL SITES from middle drop- down box, press Enter, then look for stroke or telestroke for your site. Cosigned by Raman Bain MD at 02/02/2025 11:58 PM BRANCH OFFICE ADMINISTRATOR CH OFFICE ADMINISTRATOR CH OFFICE ADMINISTRATOR Associated attestation - Rmaan Bain MD - 02/02/2025 11:58 PM BRANCH OFFICE ADMINISTRATOR Vascular Neurology Attending Physician Attestation I agree with the note below. Raman Bain MD, MS Vascular Neurology documented in this encounter ED Notes * Andrea Gamboa DO - 01/30/2025 4:43 PM CST Emergency Department [...] the medication completely as recommended by her co supervisor grounds and landscape. Right-sided weakness is not new due to [...] -- -- 67 -- 94 % -- 01/30/251928 (!) 149/71 -- -- 66 -- 96 [...] Bilirubin Urine Negative Ketones Urine Negative Specific [place] Urine 1.010 Blood Urine Negative pH Urine [...] Dr Alvaro Neves at 5:24 PM 01/30/2025 BRANCH OFFICE ADMINISTRATOR/CDT. CT Head w/o Contrast Final Result IMPRESSION: 1. No acute cranial hemorrhage identified. 2. No evidence CT acute infarct. Aspect score 10. 3. Chronic intracranial changes described above. Dr Andrea Gamboa was notified by Dr Alvaro Neves at 5:07 PM 01/30/2025 BRANCH OFFICE ADMINISTRATOR/CDT. EKG ECG results from 01/30/25 EKG 12-lead, tracing only Value Systolic Blood Pressure Diastolic Blood Pressure Ventricular Rate 70 Atrial Rate 70 WA Interval 144 QRS Duration 84 QT 390 QTc 421 P Midway 39 R AXIS 45 T Midway 59 Interpretation ECG Sinus rhythm Normal ECG [...] scan flush (100 mLs As instructed $Given 01/30/25 164) prochlorperazine (COMPAZINE) injection 5 mg (5 mg Intravenous $Given 01/30/25 174) diphenhydrAMINE (BENADRYL) injection 25 mg (25 mg Intravenous $Given 01/30/25 174) lactated ringers BOLUS 1,000 mL (0 mLs Intravenous Stopped 01/30/252013) gadobutrol (GADAVIST) injection 6 mL (6 mLs Intravenous $Given 01/30/252233) Procedures Procedures Discussion of Management Neurology, Dr. Gonzalez ED Course ED Course as of 01/30/25 2333 [facility] Jan 30, 20[address] Norwood from Stroke/Neuro regarding the patient's presentation and plan of care. 1656 I spoke with from Stroke/Neuro regarding the patient's presentation and plan of care. 1658 I obtained the history and examined the [...] Normal sinus rhythm. Rate of 70. Normal WA and QRS. Normal QTc. Early repolarization type appearance throughout leads. No acute ST elevation or depression as compared with 01/08/2025 EKG. Although prior EKG does have significant amount of artifact. 192 Patient passed swallow eval. 2123 I rechecked and updated the patient. Agreeable to MRI. 2309 Notified by ED geotechnical laboratory technician that patient has been ambulating back [...] Documentation None Medical Decision Making / Diagnosis [facility] Diagnoses: None MIPS None [facility] Miya Restrepo is a 74-year-old female as [...] derangements. Tier 1 stroke alert activated by wood machine carver. Stroke team consulted. Tier 1 stroke orders [...] statements to me. Andrea Gamboa DO 01/30/25 1055 CH OFFICE ADMINISTRATOR * Gabriella Jacome RN - 01/30/2025 4:38 PM CST Bed: ED33 Expected date: Expected time: Means of arrival: Comments: Tier 1 from [facility] CH OFFICE ADMINISTRATOR * Gracia Zayas RN - 01/30/2025 4:32 PM CST Pt was at PT around 1430. Started having slurred speech, right sided facial numbness, RUIZ, heart palpitations. Hx of stroke 9 months ago. Tier 1 code stroke called. BG 112. CH OFFICE ADMINISTRATOR CH OFFICE ADMINISTRATOR documented in this encounter Plan of Treatment Not on file documented as of this encounter Procedures Procedure Name Priority Date/Time Associated Diagnosis Comments MR BRAIN W/O & W CONTRAST STAT 01/30/2025 10:31 PM BRANCH OFFICE ADMINISTRATOR EKG 12-LEAD, TRACING ONLY STAT 01/30/2025 4:59 PM BRANCH OFFICE ADMINISTRATOR EXTRA TUBE STAT 01/30/2025 4:56 PM BRANCH OFFICE ADMINISTRATOR EXTRA RED TOP TUBE STAT 01/30/2025 4: 56 PM BRANCH OFFICE ADMINISTRATOR CBC WITH PLATELETS AND DIFFERENTIAL STAT 01/30/2025 4:56 PM BRANCH OFFICE ADMINISTRATOR CBC WITH PLATELETS AND DIFFERENTIAL (LIMITED OCCURRENCES) STAT 01/30/2025 4:56 PM BRANCH OFFICE ADMINISTRATOR BASIC METABOLIC PANEL (LIMITED OCCURRENCES) STAT 01/30/2025 4:56 PM BRANCH OFFICE ADMINISTRATOR TROPONIN T, HIGH SENSITIVITY STAT 01/30/2025 4:56 PM BRANCH OFFICE ADMINISTRATOR ROUTINE UA WITH MICROSCOPIC REFLEX TO CULTURE STAT 01/30/2025 4:56 PM BRANCH OFFICE ADMINISTRATOR INR STAT 01/30/2025 4:56 PM BRANCH OFFICE ADMINISTRATOR PARTIAL THROMBOPLASTIN TIME STAT 01/30/2025 4:56 PM BRANCH OFFICE ADMINISTRATOR CTA HEAD NECK W CONTRAST STAT 01/30/2025 4:52 PM BRANCH OFFICE ADMINISTRATOR CT HEAD W/O CONTRAST STAT 01/30/2025 4:52 PM BRANCH OFFICE ADMINISTRATOR GLUCOSE BY METER STAT 01/30/2025 4:32 PM BRANCH OFFICE ADMINISTRATOR documented in this encounter Results * MR Brain w/o & w Contrast (01/30/2025 10:31 PM BRANCH OFFICE ADMINISTRATOR) Anatomical Region Laterality Modality Head, SUBRAD MR NEURO, UMP MR NEURO, RAD MR Magnetic Resonance 01/30/2025 10:3 1 PM BRANCH OFFICE ADMINISTRATOR Impressions 01/30/2025 11:10 PM BRANCH OFFICE ADMINISTRATOR IMPRESSION: 1. No acute intracranial abnormality. 2. Chronic right lentiform nucleus lacunar infarct. 3. 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 Narrative 01/30/2025 11:10 PM BRANCH OFFICE ADMINISTRATOR EXAM: MR BRAIN W/O and W CONTRAST LOCATION: [facility] DATE: 01/30/2025 INDICATION: Slurred speech, right [...] MR BRAIN W/O and W CONTRAST LOCATION: [facility] DATE: 01/30/2025 INDICATION: Slurred speech, right [...] left moore radiata infarct with Wallerian degeneration. us Andrea [employer] DO IMG MRI ORDERABLES Final Result * EKG 12-lead, tracing only (01/30/2025 4:59 PM BRANCH OFFICE ADMINISTRATOR) Systolic Blood Pressure mmHg RADIOLOGY RESULTS Diastolic Blood Pressure mmHg RADIOLOGY RESULTS Ventricular Rate 70 BPM RAD IOLOGY RESULTS Atrial Rate 70 BPM RADIOLOG Y RESULTS WA Interval 144 ms RADIOLOG Y RESULTS QRS Duration 84 ms RADIOLO GY RESULTS QT 390 ms RADIOLOGY RESULTS QTc 421 ms RADIOLOGY RESULTS P Midway 39 degrees RADIOLOGY RESULTS R AXIS 45 degrees RADIOLOGY RESULTS T Midway 59 degrees RADIOLOGY RESULTS Interpretation ECG Sinus rhythm Normal ECG When compared with ECG of 08-Jan-2025 19:51, ST elevation now present in Lateral leads Confirmed by SEE ED PROVIDER NOTE FOR, ECG INTERPRETATION (4000), online editor PIYUSH SAAVEDRA ([id number]) on 01/31/2025 7:21:49 AM RADIOLOGY RESULTS 01/30/2025 4:59 PM BRANCH OFFICE ADMINISTRATOR 01/31/2025 7:21 AM BRANCH OFFICE ADMINISTRATOR us Ramah Yeh DO ECG ORDERABLES Edited Result - Final RADIOLOGY RESULTS * UA with Microscopic reflex to Culture (01/30/2025 4:56 PM BRANCH OFFICE ADMINISTRATOR) Color Urine Straw Colorless, Straw, Light Yellow, Yellow 01/30/2025 5:08 PM BRANCH OFFICE ADMINISTRATOR [facility] Appearance Urine Clear Clear 01/31/20 5:08 PM BRANCH OFFICE ADMINISTRATOR [facility] Glucose Urine Negative Negative mg/dL 01/30/2025 5:08 PM BRANCH OFFICE ADMINISTRATOR LABORATORY Bilirubin Urine Negative Negative 5:08 PM BRANCH OFFICE ADMINISTRATOR LABORATORY Ketones Urine Negative Negative mg/dL 01/30/2025 5:08 PM BRANCH OFFICE ADMINISTRATOR LABORATORY Specific [place] Urine 1.010 1.003 - 1.035 01/30/2025 5:08 PM BRANCH OFFICE ADMINISTRATOR LABORATORY Blood Urine Negative Negative 01/30/2025 5:08 PM BRANCH OFFICE ADMINISTRATOR LABORATORY pH Urine 6.5 5.0 - 7.0 01/30/2025 5:08 PM BRANCH OFFICE ADMINISTRATOR LABORATORY Protein Albumin Urine Negative Negative mg/dL 01/30/2025 5:08 PM BRANCH OFFICE ADMINISTRATOR LABORATORY Urobilinogen Urine Normal Normal mg/dL 01/30/2025 5:08 PM BRANCH OFFICE ADMINISTRATOR LABORATORY Nitrite Urine Negative Negative 01/30/2025 5:08 PM BRANCH OFFICE ADMINISTRATOR LABORATORY Leukocyte Esterase Urine Negative Negative 01/30/2025 5:08 PM BRANCH OFFICE ADMINISTRATOR LABORATORY RBC Urine <1 <=2 /HPF 01/30/2025 5:08 PM BRANCH OFFICE ADMINISTRATOR LABORATORY WBC Urine 1 <=5 /HPF 01/30/2025 5:08 PM BRANCH OFFICE ADMINISTRATOR LABORATORY Squamous Epithelials Urine <1 <=1 /HPF 01/30/2025 5:08 PM BRANCH OFFICE ADMINISTRATOR LABORATORY Urine URINE SPECIMEN OBTAINED BY CLEAN CATCH PROCEDURE / Unknown Non-blood Collection / Unknown 01/30/2025 4:56 PM BRANCH OFFICE ADMINISTRATOR 01/30/2025 5:01 PM BRANCH OFFICE ADMINISTRATOR Narrative [facility] - 01/30/2025 5:08 PM BRANCH OFFICE ADMINISTRATOR Urine Culture not indicated us Andrea Gamboa DO LAB - URINE ORDERABLES Final Res ult LABORATORY [facility] [address] Lab (1st floor, no room number) [place] [address], [facility] * Extra Red Top Tube (01/30/2025 4:56 PM BRANCH OFFICE ADMINISTRATOR) Pathologist [facility] Hold Specimen [facility] 01/30/2025 6:05 PM BRANCH OFFICE ADMINISTRATOR LABORATORY Blood BLOOD SPECIMEN / Unknown Venipuncture / Unknown 01/30/2025 4:56 PM BRANCH OFFICE ADMINISTRATOR 01/30/2025 5:01 PM BRANCH OFFICE ADMINISTRATOR us Andrea Gamboa DO LAB - BLOOD ORDERABLES Final Res ult [facility] [address] Lab (1st floor, no room number) [place] [address], [facility] * CBC with platelets and differential (01/30/2025 4:56 PM BRANCH OFFICE ADMINISTRATOR) WBC Count 6.34 4.00 - 11.00 10e3/uL 01/30/2025 5:04 PM BRANCH OFFICE ADMINISTRATOR [facility] RBC Count 4.65 3.80 - 5.20 10e6/uL 01/30/2025 5:04 PM BRANCH OFFICE ADMINISTRATOR [facility] Hemoglobin 13.9 11.7 - 15.7 g/dL 01/30/2025 5:04 PM BRANCH OFFICE ADMINISTRATOR [facility] Hematocrit 40.8 35.0 - 47.0 % 01/30/2025 5:04 PM BRANCH OFFICE ADMINISTRATOR [facility] MCV 87.7 78.0 - 100.0 fL 01/30/2025 5:04 PM BRANCH OFFICE ADMINISTRATOR [facility] MCH 29.9 26.5 - 33.0 pg 01/30/2025 5:04 PM BRANCH OFFICE ADMINISTRATOR [facility] MCHC 34.1 31.5 - 36.5 g/dL 01/30/2025 5:04 PM BRANCH OFFICE ADMINISTRATOR [facility] RDW 13.1 10.0 - 15.0 % 01/30/2025 5:04 PM BRANCH OFFICE ADMINISTRATOR [facility] Platelet Count 225 150 - 450 10e3/uL 01/30/2025 5:04 PM BRANCH OFFICE ADMINISTRATOR [facility] % Neutrophils 60.0 % 01/30/2025 5:04 PM BRANCH OFFICE ADMINISTRATOR [facility] % Lymphocytes 29.3 % 01/30/2025 5:04 PM BRANCH OFFICE ADMINISTRATOR [facility] % Monocytes 7.9 % 01/30/2025 5:04 PM BRANCH OFFICE ADMINISTRATOR [facility] % Eosinophils 2.1 % 01/30/2025 5:04 PM BRANCH OFFICE ADMINISTRATOR [facility] % Basophils 0.5 % 01/30/2025 5:04 PM BRANCH OFFICE ADMINISTRATOR [facility] % Immature Granulocytes 0.2 % 01/30/2025 5:04 PM BRANCH OFFICE ADMINISTRATOR [facility] NRBCs per 100 WBC 0.0 <1.0 /100 025 5:04 PM BRANCH OFFICE ADMINISTRATOR [facility] Absolute Neutrophils 3.81 1.60 - 8.30 10e3/uL 01/30/2025 5:04 PM BRANCH OFFICE ADMINISTRATOR [facility] Absolute Lymphocytes 1.86 0.80 - 5.30 10e3/uL 01/30/2025 5:04 PM BRANCH OFFICE ADMINISTRATOR [facility] Absolute Monocytes 0.50 0.00 - 1.30 10e3/uL 01/30/2025 5:04 PM BRANCH OFFICE ADMINISTRATOR [facility] Absolute Eosinophils 0.13 0.00 - 0.70 10e3/uL 01/30/2025 5:04 PM BRANCH OFFICE ADMINISTRATOR LABORATORY Absolute Basophils 0.03 0.00 - 0.20 10e3/uL 01/30/2025 5:04 PM BRANCH OFFICE ADMINISTRATOR LABORATORY Absolute Immature Granulocytes <0.03 <=0.40 10e3/uL 01/30/2025 5:04 PM BRANCH OFFICE ADMINISTRATOR [facility] Absolute NRBCs <0.03 10e3/uL 01/30/2025 5:04 PM BRANCH OFFICE ADMINISTRATOR LABORATORY Blood BLOOD SPECIMEN / Unknown Venipuncture / Unknown 01/30/2025 4:56 PM BRANCH OFFICE ADMINISTRATOR 01/30/2025 5:01 PM BRANCH OFFICE ADMINISTRATOR us Andrea Gamboa DO LAB - BLOOD ORDERABLES Final Res ult LABORATORY [facility] [address] [facility] Lab (1st floor, no room number) [place] [address] * Troponin T, High Sensitivity (01/30/2025 4:56 PM BRANCH OFFICE ADMINISTRATOR) [facility] Troponin T, High Sensitivity <6 <=14 ng/L 01/30/2025 5:57 PM BRANCH OFFICE ADMINISTRATOR LABORATORY Comment: Either a High Sensitivity Troponin [...] BLOOD SPECIMEN / Unknown Venipuncture / Unknown 01/30/2025 4:56 PM BRANCH OFFICE ADMINISTRATOR 01/30/2025 5:01 PM BRANCH OFFICE ADMINISTRATOR us Andrea Yeh DO LAB - BLOOD ORDERABLES Final Res ult [facility] [address] Lab (1st floor, no room number) [address] * Partial thromboplastin time (01/30/2025 4:56 PM BRANCH OFFICE ADMINISTRATOR) aPTT 33 22 - 38 Seconds 01/30/2025 5:21 PM BRANCH OFFICE ADMINISTRATOR [facility] Blood BLOOD SPECIMEN / Unknown Venipuncture / Unknown 01/30/2025 4:56 PM BRANCH OFFICE ADMINISTRATOR 01/30/2025 5:01 PM BRANCH OFFICE ADMINISTRATOR us Andrea Yeh DO LAB - BLOOD ORDERABLES Final Res ult Performing Organization Address [facility]/ZIP Co de Phone Number [facility] Lab [address] Lab (1st floor, no room number) [address] * INR (01/30/2025 4:56 PM BRANCH OFFICE ADMINISTRATOR) INR 0.97 0.85 - 1.15 01/30/2025 5:21 PM BRANCH OFFICE ADMINISTRATOR [facility] PT 12.8 11.8 - 14.8 Seconds 01/30/2025 5:21 PM BRANCH OFFICE ADMINISTRATOR [facility] Blood BLOOD SPECIMEN / Unknown Venipuncture / Unknown 01/30/2025 4:56 PM BRANCH OFFICE ADMINISTRATOR 01/30/2025 5:01 PM BRANCH OFFICE ADMINISTRATOR us Ramah Yeh DO LAB - BLOOD ORDERABLES Final Res ult [facility] Lab [address] Lab (1st floor, no room number) [place] [id number] * (ABNORMAL) Basic Metabolic Panel (Limited Occurrences) (01/30/2025 4:56 PM BRANCH OFFICE ADMINISTRATOR) Sodium 141 135 - 145 mmol/L 01/30/2025 5:57 PM BRANCH OFFICE ADMINISTRATOR LABORATORY Potassium 3.7 3.4 - 5.3 mmol/L 01/30/2025 5:57 PM BRANCH OFFICE ADMINISTRATOR LABORATORY Chloride 103 98 - 107 mmol/L 01/30/2025 5:57 PM BRANCH OFFICE ADMINISTRATOR LABORATORY Carbon Dioxide (CO2) 25 22 - 29 mmol/L 01/30/2025 5:57 PM BRANCH OFFICE ADMINISTRATOR LABORATORY Anion Gap 13 7 - 15 mmol/L 01/30/2025 5:57 PM BRANCH OFFICE ADMINISTRATOR LABORATORY Urea Nitrogen 16.4 8.0 - 23.0 mg/dL 01/30/2025 5:57 PM BRANCH OFFICE ADMINISTRATOR LABORATORY Creatinine 0.75 0.51 - 0.95 mg/dL 01/30/2025 5:57 PM BRANCH OFFICE ADMINISTRATOR LABORATORY GFR Estimate 83 >60 mL/min/1.7 3m2 01/30/2025 5:57 PM BRANCH OFFICE ADMINISTRATOR LABORATORY Comment:eGFR calculated usmi 2020 CKD-EPI equation. Calcium 9.4 8.8 - 10.4 mg/dL 01/30/2025 5:57 PM BRANCH OFFICE ADMINISTRATOR LABORATORY Glucose 112(H) 70 - 99 mg/dL 01/30/2025 5:57 PM BRANCH OFFICE ADMINISTRATOR LABORATORY Blood BLOOD SPECIMEN / Unknown Venipuncture / Unknown 01/30/2025 4:56 PM BRANCH OFFICE ADMINISTRATOR 01/30/2025 5:01 PM BRANCH OFFICE ADMINISTRATOR us Andrea Gamboa DO LAB - BLOOD ORDERABLES Final Res ult LABORATORY [facility] [address] Lab (1st floor, no room number) [place] [address] * CTA Head Neck with Contrast (01/30/2025 4:52 PM BRANCH OFFICE ADMINISTRATOR) Anatomical Region Laterality Modality Head, SUBRAD CT NEURO, SUBRA D CT NEURO, UMP CT NEURO, RAD CT Computed Tomography 01/30/2025 4:52 PM BRANCH OFFICE ADMINISTRATOR Impressions 01/30/2025 5:28 PM BRANCH OFFICE ADMINISTRATOR IMPRESSION: HEAD CTA: 1. No new intracranial [...] Dr Alvaro Neves at 5:24 PM 01/30/2025 BRANCH OFFICE ADMINISTRATOR/CDT. Narrative 01/30/2025 5:28 PM BRANCH OFFICE ADMINISTRATOR EXAM: CTA HEAD NECK W CONTRAST LOCATION: [facility] DATE: 01/30/2025 INDICATION: Code Stroke, evaluate for LVO. Right facial numbness. Slurred speech. Headache. COMPARISON: CTA head and neck 01/27/2024, MRA head and neck 11/30/2024 CONTRAST: 71mL [id number] TECHNIQUE: Head and neck CT angiogram with [...] M1 moderate focal stenosis. Right proximal M2 segments demonstrate multiple severe stenoses. Findings are similar compared to CTA head and neck 01/27/2024. Left proximal M1 focal severe stenosis. Left distal M1 focal moderate stenosis. Left proximal M2 inferior division moderate focal stenosis. Findings are similar compared to CTA had and neck 01/27/2024. Right P2 moderate focal stenosis. Right P2/P3 branch artery several focal severe stenoses. Findings similar to prior CTA head [...] CTA head and neck 01/27/2024. Right origin SUPERVISOR FINISHING NECK CTA: Right mid to distal cervical [...] EXAM: CTA HEAD NECK W CONTRAST LOCATION: [facility] DATE: 01/30/2025 INDICATION: Code Stroke, evaluate for LVO. Right facial numbness. Slurredspeech. Headache. COMPARISON: CTA head and neck 01/27/2024, MRA head and neck 11/30/2024 CONTRAST: 71mL [id number] TECHNIQUE: Head and neck CT angiogram with [...] priorCTA head and neck 01/27/2024. Right origin SUPERVISOR FINISHING NECK CTA: Right mid to distal cervical [...] Dr Alvaro Neves at 5:24 PM 5CST/CDT. us Andrea Gamboa DO IMG CT ORDERABLES Final Result * CT Head w/o Contrast (01/30/2025 4:52 PM BRANCH OFFICE ADMINISTRATOR) Anatomical Region Laterality Modality Head, SUBRAD CT NEURO, SUBRA D CT NEURO, UMP CT NEURO, RAD CT Computed Tomography 01/30/2025 4:52 PM BRANCH OFFICE ADMINISTRATOR Impressions 01/30/2025 5:28 PM BRANCH OFFICE ADMINISTRATOR IMPRESSION: 1. No acute cranial hemorrhage identified. 2. No evidence CT acute infarct. Aspect score 10. 3. Chronic intracranial changes described above. Dr Andrea Gamboa was notified by Dr Alvaro Neves at 5:07 PM 01/30/2025 BRANCH OFFICE ADMINISTRATOR/CDT. Narrative 01/30/2025 5:28 PM BRANCH OFFICE ADMINISTRATOR EXAM: CT HEAD W/O CONTRAST LOCATION: [facility] DATE: 01/30/2025 INDICATION: Code Stroke, rule [...] 01/30/2025 EXAM: CT HEAD W/O CONTRAST LOCATION: [facility] DATE: 01/30/2025 INDICATION: Code Stroke, rule out hemorrhage and evaluate for potentialthrombolysis thrombectomy. Right facial numbness. Slurred speech.Headache. COMPARISON: MRI brain 11/30/2024 TECHNIQUE: Routine CT Head without IV contrast. Multiplanar reformats.Dose reduction techniques were used. FINDINGS: INTRACRANIAL CONTENTS: No intracranial hemorrhage, extraaxial collection,or mass effect. No CT evidence of acute infarct. Mild to moderatepresumed chronic small vessel ischemic changes. Mild generalized volumeloss. No hydrocephalus. Left frontoparietal deep white matter/left superior basal ganglia small chronicinfarct. VISUALIZED ORBITS/SINUSES/MASTOIDS: No intraorbital abnormality. Noparanasal sinus mucosal disease. No middle ear or mastoid effusion. BONES/SOFT TISSUES: No acute abnormality. IMPRESSION: 1. No acute cranial hemorrhage identified. 2. No evidence CT acute infarct. Aspect score 10. 3. Chronic intracranial changes described above. Dr Andrea Gamboa was notified by Dr Alvaro Neves at 5:07 PM 5CST/CDT. Andrea Gamboa DO IMG CT ORDERABLES Final Result * (ABNORMAL) Glucose by meter (01/30/2025 4:32 PM BRANCH OFFICE ADMINISTRATOR) [facility] GLUCOSE BY METER POCT 112(H) 70 - 99 mg/dL 01/30/2025 4:39 PM BRANCH OFFICE ADMINISTRATOR LABORATORY POC Comment:Dr/RN Notified Blood, Capillary BLOOD SPECIMEN / Unknown 01/30/2025 4:32 PM BRANCH OFFICE ADMINISTRATOR 01/30/2025 4:39 PM BRANCH OFFICE ADMINISTRATOR Provider Unknown LAB - BEAKER POCT Final Result LABORATORY POC [facility] [address] Lab (1st floor, no room number) [place] [address], [facility] documented in this encounter Visit Diagnoses Diagnosis Dysarthria- Primary Right facial numbness Disturbance of skin sensation Nonintractable headache, unspecified chronicity pattern, unspecified headache type documented in this encounter Administered Medications Inactive Administered Medications - up to 3 most recent administrations Medication Order MAR Action Action Date Dose Rate Site diphenhydrAMINE (BENADRYL) injection 25 mg 25 mg, Intravenous, ONCE, On Amy 01/30/25 at 1710, For 1 dose $Given 01/30/2025 5:40 PM BRANCH OFFICE ADMINISTRATOR 25 mg gadobutrol (GADAVIST) injection 6 mL 6 mL, Intravenous, ONCE, On Amy 01/30/25 at 2205, For 1 dose, Supplied by, and administered by MRI. $Given 01/30/2025 10:34 PM BRANCH OFFICE ADMINISTRATOR 6 mLs iohexol (OMNIPAQUE) 350 MG/ML injectable solution 71 mL 71 mL, Intravenous, ONCE, On Amy 01/30/25 at 1640, For 1 dose, To be administered by Imaging staff during CTA Head/Neck scan. $Given 01/30/2025 4:43 PM BRANCH OFFICE ADMINISTRATOR 71 mLs lactated ringers BOLUS 1,000 mL Intravenous, 1,000 mL, ONCE, at 1,000 mL/hr, Administer over 1 Hours, On Amy 01/30/25 at 1710, For 1 dose $New Bag 01/30/2025 5:39 PM BRANCH OFFICE ADMINISTRATOR 1,000 mLs 1000 mL/hr prochlorperazine (COMPAZINE) injection 5 mg 5 mg, Intravenous, ONCE, Administer over 1-2 Minutes, On Amy 01/30/25 at 1710, For 1 dose $Given 01/30/2025 5:41 PM BRANCH OFFICE ADMINISTRATOR 5 mg sodium chloride 0.9 % bag for CT scan flush As instructed, 100 mL, ONCE, On Amy 01/30/25 at 1640, For 1 dose, For use by Radiology to intermittently use as a flush for patients receiving a CT scan. $Given 01/30/2025 4:48 PM BRANCH OFFICE ADMINISTRATOR 100 mLs documented in this encounter Active and Recently Administered Medications Times are shown in BRANCH OFFICE ADMINISTRATOR. Scheduled Medication Order 01/28/2025 01/29/2025 01/30/2025 diphenhydrAMINE (BENADRYL) injection 25 mg (COMPLETED) 25 mg, Intravenous, ONCE, On Amy 01/30/25 at 1710, For 1 dose 1740 ($Given - Provi shaylee: Mindy Whitt RN) gadobutrol (GADAVIST) injection 6 mL (COMPLETED) 6 mL, Intravenous, ONCE, On Amy 01/30/25 at 2205, For 1 dose, Supplied by, and administered by MRI. 2233 ($Given - Provi shaylee: Lyudmila Yahnke, ARRT) iohexol (OMNIPAQUE) 350 MG/ML injectable solution 71 mL (COMPLETED)(Linked Group 1) 71 mL, Intravenous, ONCE, On Amy 01/30/25 at 1640, For 1 dose, To be administered by Imaging staff during CTA Head/Neck scan. 1643 ($Given - Provi shaylee: Nazanin Rios ARRT) lactated ringers BOLUS 1,000 mL (COMPLETED) Intravenous, 1,000 mL, ONCE, at 1,000 mL/hr, Administer over 1 Hours, On Amy 01/30/25 at 1710, For 1 dose 173 ($New Bag - Pro vider: Mindy Whitt, RN)2013 (Stopped - Provider: Marielena Prieto RN) prochlorperazine (COMPAZINE) injection 5 mg (COMPLETED) 5 mg, Intravenous, ONCE, Administer over 1-2 Minutes, On Amy 01/30/25 at 1710, For 1 dose 174 ($Given - Provi shaylee: Mindy Whitt RN) sodium chloride 0.9 % bag for CT scan flush (COMPLETED)(Linked Group 1) As instructed, 100 mL, ONCE, On Amy 01/30/25 at 1640, For 1 dose, For use by Radiology to intermittently use as a flush for patients receiving a CT scan. 164 ($Given - Provi shaylee: BENITA GarciaT) Linked Groups Order Group 1: iohexol (OMNIPAQUE) 350 MG/ML [...] scan. documented in this encounter Care Teams Associate Professor Of Communication Relationship Specialty Start Date End Date Kyra Perera [address] [place] [address] PCP - General Physician Grain Sacker 03/31/22 Angel Hollins MD [id number] [place] [address] Neurology 07/20/23 Petra Dorado PA [address] [place], [place] [id number] Physician Grain Sacker Physical Medicine and Rehabilitation 07/20/23 Angel Hollins MD [id number] [place] [address] Assigned Neuroscience Provider 08/03/23 Yves Ballard MD [address] [facility] [address] [id number] Assigned Heart and Vascular Provider 12/04/23 documented as of this encounter
--- OUTSIDE RECORDS SUMMARY | 2025-02-09 18:55 | XMS_ITS | Clinical Summary ---
Author Organization [facility] Address [address] [address] Phone Care Team Providers Care Monitor And Storage Bin Tender Name Role Phone Elsewhere, Pcp Primary Care [...] on file Insurance MEDICA CHOICE Care Teams Monitor And Storage Bin Tender Relationship Specialty Start Date End Date Elsewhere, Pcp PCP - General 12/20/14
--- OUTSIDE RECORDS SUMMARY | 2025-02-09 18:55 | XMS_ITS | Encounter Summary ---
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 Gender Identity Not on file Sexual Orientation Not on file documented as of this encounter Plan of Treatment Not on file documented as of this encounter Visit Diagnoses Not on filedocumented in this encounter Care Teams Check Writer Relationship Specialty Start Date End Date [place] [address] PCP - General Physician Irrigator Gravity Flow 03/31/22 Angel Hollins MD [address] [address] Neurology 07/20/23 Petra Dorado PA [address] [place] [address] Physician Irrigator Gravity Flow Physical Medicine and Rehabilitation 07/20/23 Angel Hollins MD [address] [address] Assigned Neuroscience Provider 08/03/23 Yves Ballard MD [address] [facility] [address] [place] [address] Assigned Heart and Vascular Provider 12/04/23 documented as of this encounter
--- OUTSIDE RECORDS SUMMARY | 2025-02-09 18:55 | XMS_ITS | Clinical Summary ---
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 459091477 (SNOMED CT) 09/19 Active 09/19 Fredi Worthy MD Neuropathic pain Infarction of basal ganglia Lt 879062558 (SNOMED CT) 09/19 Active 09/19 Fredi Worthy MD Infarction of basal ganglia Vertigo 516896383 (SNOMED CT) 04/19 Active 2 Fredi Worthy MD Vertigo Sleep apnea 06912323 (SNOMED CT) 09/24 Resolved 09/24 Fredi Worthy MD Sleep apnea New daily persistent headache 885672142119 105 (SNOMED CT) 03/29 Active 03/29 Fredi Worthy MD New daily persistent headache Hypertension, uncontrolled 14962911 (SNOMED CT) 03/29 Active 03/29 Fredi Worthy MD Hypertensive disorder Cardiac arrhythmia 72852297 (SNOMED CT) 09/24 Active 09/24 Armando Granados MD Conduction disorder of the heart Sleep apnea 91060579 (SNOMED CT) 09/24 Removed 09/24 Armando Granados MD Sleep apnea Intracranial vascular stenosis 15454121 (SNOMED CT) 09/24 Active 09/24 Armando Granados MD Cerebral artery occlusion Medications Medication Instructions Start Date Stop Date Generic Name NDC Provider METOPROLOL TARTRATE 25 MG TABS 1/2 tab twice a day metoprolol tartrate 72457612018 Shawna Olverail PA-C ASPIRIN 81 MG TBEC aspirin 31038573631 Shawna Olverail PA-C VITAMIN D3 50 MCG (1999) TABS cholecalciferol (vitamin d3) 87496627628 Shawna Bob PA-C FUROSEMIDE 20 MG TABS 1 tab twice a week furosemide 19961512947 Shawna Olverail PA-C GABAPENTIN 100 MG CAPS 1 capsule by mouth as directed : 1 cap or 100 mg per night and may increase by 100 mg every 5 night as needed until pain controlled or until 600 mg/night 10/01 gabapentin 26529306931 Shawna ANTHONY-C Aspirin once a day as needed 10/01 Aspirin Shawna Olverail PA-C ONDANSETRON 4 MG TBDP every six hours as needed 10/01 ondansetron 06214612231 Shawna ANTHONY-C EZETIMIBE 10 MG TABS 10/01 ezetimibe 62850256072 Shawna Olverail PA-C ALPRAZOLAM 0.25 MG TABS 1/2 tab q am and qhs as needed alprazolam 15667963635 Shawna Olverail PA-C TELMISARTAN 20 MG TABS TAKE ONE TABLET BY MOUTH (20MG) TWICE A DAY PT REQUESTING 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 In addition take 200 mg per night and may increase by 100 mg per night as needed until pain controlled or until 600 mg/night 04/03 gabapentin 29829129807 Fredi Worthy MD GABAPENTIN 100 MG CAPS 1 capsule by mouth as directed : 1 cap or 100 mg per night and may increase by 100 mg every 5 night as needed until pain controlled or until 600 mg/night 10/01 gabapentin 05983717155 Fredi Worthy MD EZETIMIBE 10 MG TABS 10/01 ezetimibe 39226860543 Fredi Worthy MD GABAPENTIN 100 MG CAPS 1 capsule by mouth as directed : 1 to 3 caps 2 times/day during the day time as needed for pain. In addition take 200 mg per night and may increase by 100 mg per night as needed until pain controlled or until 600 mg/night 09/20 gabapentin 02423147475 Fredi Worthy MD AMLODIPINE BESYLATE 2.5 MG TABS once a day 09/19 amlodipine 89319380949 Fredi Worthy MD DIAZEPAM 5 MG TABS three times a day as needed 09/19 diazepam 47485377407 Fredi Worthy MD EPLERENONE 25 MG TABS once a day 09/19 eplerenone 43673010250 Fredi Worthy MD VITAMIN D 50 MCG (1999 [place]) TABS once a day 09/19 cholecalciferol (vitamin d3) 18546926060 Fredi Worthy MD ONDANSETRON 4 MG TBDP every six hours as needed 10/01 ondansetron 04880336420 Fredi Worthy MD FLUTICASONE PROPIONATE 50 MCG/ACT SUSP twice a day as needed 09/19 fluticasone propionate 92533388646 Fredi Worthy MD MECLIZINE HCL 12.5 MG TABS every eight hours as needed 09/19 meclizine 01566534326 Fredi Worthy MD ALPRAZOLAM 0.25 MG TABS Bedtime 10/01 alprazolam 26800482097 Fredi Worthy MD DILTIAZEM HCL 30 MG TABS twice a day 09/19 diltiazem hcl 09867436934 Fredi Worthy MD Aspirin once a day as needed 10/01 Aspirin Fredi Worthy MD COENZYME Q10 10 MG CAPS Discontinued 09/19 coenzyme q10 62511293295 Fredi Worthy MD NITROGLYCERIN 0.4 MG SUBL 5 mg as needed nitroglycerin 98256831606 Fredi Worthy MD FUROSEMIDE 20 MG TABS three times a day 09/19 furosemide 40253818451 Fredi Worthy MD METOPROLOL TARTRATE 25 MG TABS 10/02 metoprolol tartrate 87894074333 Fredi Worthy MD TELMISARTAN 20 MG TABS TAKE ONE TABLET BY MOUTH (20MG) TWICE A DAY PT REQUESTING THIS SENIOR INFRASTRUCTURE ARCHITECT FOR THIS 10/01 telmisartan 92775846729 Fredi Worthy MD ONDANSETRON 4 MG TBDP Every 6 Hours as needed 11/24 Ondansetron Hcl 94795527133 System Maintenance NITROGLYCERIN 0.4 MG SUBL Every 5 Minutes X 3 as needed 09/19 Nitroglycerin 83372004283 System Maintenance MECLIZINE HCL 12.5 MG TABS Every 8 Hours as needed 09/19 Meclizine Hcl 43141445428 System Maintenance FUROSEMIDE 20 MG TABS 3XWK 09/19 Furosemide 64410857451 System Maintenance FLUTICASONE PROPIONATE 50 MCG/ACT SUSP Twice A Day as needed 09/20 Fluticasone Propionate (Nasal) 32897009159 System Maintenance EPLERENONE 25 MG TABS Daily 09/20 Eplerenone 20413190717 System Maintenance DILTIAZEM HCL 30 MG TABS Twice A Day 09/20 Diltiazem Hcl 34926581656 System Maintenance DIAZEPAM 5 MG TABS Three Times A Day as needed 09/20 Diazepam 53481560232 System Maintenance COENZYME Q10 10 MG CAPS Discontinued 09/19 Coenzyme Q10 (Ubidecarenone) 00883406910 System Maintenance VITAMIN D 50 MCG (1999 [place]) TABS Daily 09/19 Cholecalciferol 75948610777 System Maintenance Aspirin Daily as needed 09/19 Aspirin 42945227897 System Maintenance AMLODIPINE BESYLATE 2.5 MG TABS Daily 09/20 Amlodipine Besylate 93780594680 System Maintenance ALPRAZOLAM 0.25 MG TABS Bedtime 09/19 Alprazolam 12158368761 System Maintenance Medications Administered No information available. Allergies, Adverse Reactions, Alerts Allergy Name Reaction Description Start Date Severity Status Provider Verapamil Mild Active Armando Granados MD Rosuvastatin Mild Active Restonphuc Granados MD Penicillin v Mild Active Reston E Roberta MAURICE Morphine Mild Active Armando E Roberta MAURICE Metronidazole Mild Active Armando E Roberta MAURICE Metoprolol Mild Active Armandophuc Granados MD Methyldopa Mild Active Restonphuc Granados MD Losartan Mild Active Restonphuc Granados MD Lorazepam Mild Active Reston E Roberta MAURICE Lisinopril Mild Active Armando E Roberta MAURICE Latex Mild Active Reston E Roberta MAURICE Lactose Mild Active Armando E Roberta MAURICE Labetalol Mild Active Restonphuc Granados MD Hydrocodone Mild Active Reston E Roberta MAURICE Hydrochlorothiazide Mild Active Armandophuc Granados MD Hydralazine Mild Active Restonphuc Granados MD Diltiazem Mild Active Armando E Roberta MAURICE Atorvastatin Mild Active Restonphuc Granados MD Acetaminophen Mild Active Armando E Roberta MAURICE <originalText>Sulfa drugs<reference value=#allergy-21/></o Mild Active Rup ert Dion Granados MD <originalText>Milk derivatives<reference value=#allergy-23 Moderate Active Armandopuhc Granados MD <originalText>Lobster<refe rence value=#allergy-1/></orig in Moderate Active Restonphuc Granados MD <originalText>Beta Adrenergic Blockers<reference value=#all Mild Active Armando Granados MD Results Date Name Value Unit Range Flag Description Office Visit: 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 smoking status Internal Other: Authorizatio n - [...] Detail Appointment 10:00 AM Fredi Worthy MD, [address] [place] [address], [address], [place], [address], Appointment 11:30 AM Fredi Worthy MD, [address] [place] [address] [employer], [address], [place], [address], Appointment 12:00 PM Fredi Worthy MD, [facility], [address], [place], [address], Pending order MRA-Neck W/WO Pending order MRA-Head W/O Pending order Follow up Pending order Follow up with N eurologist or TIMMY Pending order Follow up Pending order Follow up Pending order Follow up with N eurologist or TIMMY Pending order MRA-Neck W/WO Pending order MRA-Head [...] ORDERS Follow up TIMMY ORDERS Patient Instructions [facility]-[id number] Documentation of current medicatio ns ORDERS Follow up with Neurologist or TIMMY ORDERS Instructions for Staff 04/03 [facility]-[id number] Documentation of current medicatio ns ORDERS Patient Instructions ORDERS Follow up in clinic or telemedicine with provider or TIMMY [id number] MRA-Neck W/WO ORDERS Follow up in clinic or telemedicine with provider or TIMMY ORDERS Patient Instructions [facility]-[id number] Documentation of current medicatio ns [facility]-[id number] Documentation of current medicatio ns Vital Signs [...]
--- OUTSIDE RECORDS SUMMARY | 2025-02-09 18:55 | XMS_ITS | Encounter Summary ---
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 Wish to be (Past 1 Month) No 025 7:44 PM CDT Bridgett Dao, RN 2. Non-Specific Active Suici sunny Thoughts (Past 1 Month) No 01/08/2025 7:44 PM CDT Micah Dao RN 6. Suicidal Behavior (Lifetime) No 7:44 PM CDT Bridgett Dao RN documented as of this encounter Plan of Treatment Not on file documented as of this encounter Visit Diagnoses Not on filedocumented in this encounter Care Teams Tank Car Reconditioner Relationship Specialty Start Date End Date Kyra Perera [address] [place] [address] PCP - General Physician Ceramic Painter 03/31/22 Angel Hollins MD [address] [address] Neurology 07/20/23 Petra Dorado PA [address] [place], [place] [address] Physician Ceramic Painter Physical Medicine and Rehabilitation 07/20/23 Angel Hollins MD [address] [address] Assigned Neuroscience Provider 08/03/23 Yves Ballard MD [address] [facility] [address] [id number] Assigned Heart and Vascular Provider 12/04/23 documented as of this encounter
--- OUTSIDE RECORDS SUMMARY | 2025-02-09 18:55 | XMS_ITS | Encounter Summary ---
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 Wish to be (Past 1 Month) No 025 5:08 PM Anjelica Blevins, MARY 2. Non-Specific Active Suici sunny Thoughts (Past 1 Month) No 01/30/2025 5:08 PM Anjelica Blevins, MARY 6. Suicidal Behavior (Lifetime) No 5 5:08 PM Anjelica Blevins, MARY documented as of this encounter Plan of Treatment Not on file documented as of this encounter Visit Diagnoses Not on filedocumented in this encounter Care Teams Store Custodian Relationship Specialty Start Date End Date Kyra Perera [address] [place] [address] PCP - General Physician License Issuer 03/31/22 Angel Hollins MD [address] [address] Neurology 07/20/23 Petra Dorado PA [address] [facility] [address] [place], [place] [address] Physician License Issuer Physical Medicine and Rehabilitation 07/20/23 Angel Hollins MD [address] [address] Assigned Neuroscience Provider 08/03/23 Yves Ballard MD [address] [facility] [address] [place] [id number] Assigned Heart and Vascular Provider 12/04/23 documented as of this encounter
--- OUTSIDE RECORDS SUMMARY | 2025-02-09 18:55 | XMS_ITS | Clinical Summary ---
Author Organization [facility] Address [address] [place] [address] Care Team Providers Care Escort Patients Name Role Phone Kyra Perera Primary Care Provider Genaro Leonard MD Unavailable [phone] Janay Nunez MD Unavailable Carolyn Pisano Unavailable [phone] Keo Escobar MD Unavailable Ronaldo Pavon MD Unavailable [phone] Allergies Active Allergy Reactions Criticality Noted Date [...] as needed. 20 Tablet 07/10/19 25 Active phytosterol/pante thine (CHOLESTOFF COMPLETE ORAL) Take 1 Capsule by mouth two times daily. Active ALPRAZolam 0.25 mg tabletIndications :Anxiety state TAKE ONE-HALF TABLET BY MOUTH THREE TIMES DAILY NEEDED 60 Tablet 5 09/10/19 25 Active metoprolol tartrate (LOPRESSOR) 25 mg tabletIndications :Palpitations,Hyp ertension,Hyperte nsion, unspecified type Take 1 Tablet (25 mg) by mouth two times daily. 180 Tablet 1 10/02/19 25 Active Additional Information Patient taking differently: 12.5 mgOral BID, Reported on 01/20/2025 hydrocortisone (ANUSOL-HC) 2.5 % rectal creamIndications: Hemorrhoids, internal Apply topically to affected area(s) three times daily. 28 g 1 10/29/19 25 Active pitavastatin magnesium (Zypitamag) 2 mg tab Take by mouth. 12/26/19 25 Active hydrocortisone (ANUSOL-HC SUPPOSITORY) 25 mg suppositoryIndica tions:Hemorrhoids , internal Insert 1 Suppository (25 mg) rectally two times daily. 24 Suppository 3 12/26/19 25 Active furosemide (LASIX) 20 mg tabletIndications :Resistant hypertension,Cere brovascular accident (CVA), unspecified mechanism (HC) Take 1 Tablet (20 mg) by mouth once daily in the morning. 01/30/20 25 Active isosorbide mononitrate (IMDUR) 30 mg extended release tablet 24 HourIndications:R esistant hypertension,Cere brovascular accident (CVA), unspecified mechanism (HC) Take 0.5 Tablets (15 mg) by mouth once daily. 30 Tablet 01/30/20 25 Active furosemide 20 mg tabletIndications :Hypertension, unspecified type Take 1 tab every other morning. 45 Tablet 3 09/10/19 25 025 Disconti nued(*Pa tient states no longer taking) coenzyme q10 100 mg capIndications:Hy perlipidemia, unspecified hyperlipidemia type Take 1 Capsule (100 mg) by mouth two times daily. 10/02/19 25 025 Disconti nued(*Pa tient states no longer taking) diclofenac topical (VOLTAREN) 1 % gelIndications:Pa in of right scapula Apply 2 g topically to affected area(s) four times daily. 50 g 11/05/19 25 025 Disconti nued(*Pa tient states no longer taking) omeprazole 20 mg tabletIndications :Gastroesophageal reflux disease, unspecified whether esophagitis present Take 1 Tablet (20 mg) by mouth once daily before a meal. 30 Tablet 11/27/19 25 025 Disconti nued(*Pa tient states no longer taking) dilTIAZem SR (CARDIZEM SR) 60 mg extended release 12 hr capsuleIndication s:HTN (hypertension) Take 60 mg once daily. 90 Capsule 01/21/20 25 025 Disconti nued(Reo rder (E-cance l not sent)) dilTIAZem SR (CARDIZEM SR) 60 mg extended release 12 hr capsuleIndication s:HTN (hypertension) Take 60 mg once daily. 30 Capsule 01/22/20 25 025 Disconti nued(*Al lergic/A dverse Rxn/Side Effects) indapamide (LOZOL) 1.25 mg tabletIndications :Hypertension Take 1 Tablet (1.25 mg) by mouth once daily. 90 Tablet 3 01/23/20 25 025 Disconti nued(*Me dication adjustme nt) indapamide (LOZOL) 2.5 mg tabletIndications :Hypertension Take 0.5 Tablets (1.25 mg) by mouth once daily. 45 Tablet 3 01/29/20 25 025 Disconti nued(*Al lergic/A dverse Rxn/Side Effects) Hospital, Clinic, or Other Facility Administered Medication Ordered Dose Route Frequency Start Date End Date Status betamethasone acet,sod phos 6 mg injection (CELESTONE SOLUSPAN)Indications:Cervi cristi myofascial pain syndrome 6 mg IArtic ONE TIME 01/16/2025 01/16/2025 Ended Active Problems Problem Noted Date Diagnosed Date Paroxysmal tachycardia 12/14/2024 Essential hypertension 07/03/2024 Hemiparesis affecting domina nt [...] Encounters Date Type Department Care Team Description 01/29/2025 11:30 AM MANAGER PARKING Office Visit [facility] [address] [place] [address] Kyra Perera PA Follow Up (Holding a few meds due to side effects - would like to discuss); Referral (allergy) 01/29/2025 Travel 01/28/2025 Telephone [facility] [address] [place] [address] Kirsty Valderrama PA Medication Management 01/21/2025 Telephone [facility] [address] [facility] [address] [place] [address] Kirsty Valderrama PA Allergies (Allergic reaction to Diltiazem) 01/20/2025 2:30 PM MANAGER PARKING Office Visit [facility] [address] [facility] [address] [place] [address] Kirsty Valderrama PA Follow Up (REFERRED BACK TO CARDIOLOGY [facility] BY PCP FOR HTN- PCP CLINIC IS SUPPOSED TO BE ENTERING CORRECT FOLLOW UP ORDER [id number] PT states feeling ok, but earlier today she has felt her BP spike and palpitations. She was also feeling dizzy and lightheaded. She is also feeling a chest sensation now. She is also SOB and has head pressure. ) 01/20/2025 9:15 AM MANAGER PARKING Office Visit [facility] [address] [facility] [address] [place] [address] Ronaldo Pavon MD Consult (Abnormal THYROPEROXIDASE ANTIBODY) 01/20/2025 Telephone [facility] [address] [facility] [address] [place] [address] Kirsty Valderrama PA Medication Management 01/20/2025 Travel 01/16/2025 11:00 AM MANAGER PARKING Office Visit [facility] [address] [place] [address] Keo Escobar MD Musculoskeletal Problem (Follow up neck pain ) 01/15/2025 8:40 AM MANAGER PARKING Office Visit [facility] [address] [place] [address] Kelli Bartlett MD Shortness Of Breath; Gi Problem 01/15/2025 Travel 01/10/2025 Orders Only [facility] [address] [place] [address] Janay Nunez MD 1 scan: (1-Ord) [facility] RENAL DOPP, 01/08/2025 01/10/2025 Nurse Triage [facility] [address] [place] [address] Kyra Perera PA Breathing Problem 01/10/2025 Telephone [facility] [address] [place] [facility] [place] [address] Kyra Perera PA Questions 01/09/2025 Telephone [facility] [address] [place] [phone] Janay Nunez MD Results (Diagnostic Imaging Report for 01/09/25 Bilateral Renal Artery Duplex Ultrasound) 12/31/2024 11:00 AM CDT Procedure Only [facility] [address] [place] [facility] [place] [address] Marizol Walton L Ac Acupuncture 12/31/2024 Travel 12/25/2024 1:00 PM CDT Office Visit [facility] [address] [place] [facility] [place] [address] Kyra Perera PA Follow Up (On everything, dizziness, thyroid, BP etc); Neck Pain/problem (Neck pain on both sides, worse in the morning. Very painful) 12/25/2024 Travel 12/23/2024 1:30 PM CDT Orders Only [facility] [address] [place] [address] Lab, [place] Lab 12/23/2024 Travel 12/23/2024 Telephone [facility] [address] [place] [address] Marizol Walton L Ac Acupuncture 12/19/2024 Telephone [facility] Prescription Assistance Program [employer] [address] [facility] [place] [address] Genaro Isaac, [facility] Medication Management (Prescription Assistance - [employer]) 12/12/2024 9:30 AM CDT Office Visit [facility] [address] [place] [address] Janay Nunez MD 12/10/2024 12:10 PM CDT Office Visit [facility] [address] [place] [address] Kyra Perera PA ER Follow up (Go over lab results, discuss cyst that is growing, BP, Thyroid) 12/09/2024 11:00 AM CDT Office Visit [facility] [address] [facility] [place] [address] Marizol Walton L Ac Acupuncture 12/09/2024 Travel 12/06/2024 10:30 AM CDT Ancillary Procedure [facility] [address] [facility] [place] [address] 12/06/2024 Travel 11/26/2024 8:30 AM CDT Office Visit [facility] [address] [facility] [place] [address] Kyra Perera PA Follow Up (Side effects from metoprolol, wants to discuss. / oxygen has been running upper 80s - low 90s); ER Follow up (R sided abd pain. Had CT scan. Recommended US) 11/26/2024 8:00 AM CDT Ancillary Procedure [facility] [address] [facility] [place] [address] 11/26/2024 Travel 11/24/2024 Orders Only [facility] Scanner 1 scan: (1-Ord) [facility], ABDOMEN PELVIS W/CON, 11/24/2024 11/19/2024 Orders Only [facility] Scanner 1 scan: (1-Ord) RCM 11/15/2024 9:00 AM CDT Office Visit [facility] [address] [facility] [place] [address] Keo Escobar MD Consult (Rt shoulder x 3 week) 11/15/2024 Travel from Last 3 Months Immunizations Immunization Administration Dates Next Due COVID-19 vaccine (Holvi-J&J) REBA HOPKINS 1 Td, Preservative Free (age [...] 6 Hyperlipidemia Brother 7 Other Father d54 [place], liver e tom Cancer-breast Maternal Aunt Other [...] isolated from those around you? 0 04/16/2024 Alcohol Use Answer Date Recorded How often do you have a drink containing alcohol ? 0 01/20/2025 Average Number of Drinks Not on file 025 Frequency of Binge Drinking Not on file 01/11 Financial Resource Strain Answer Date R ecorded [...] on file Legal Sex Female 5:26 AM MANAGER PARKING Gender Identity Not on file Sexual Orientation Not on file Obstetrics History Last Filed Vital Signs Vital Sign Reading Time Taken Comments Blood Pressure 168/95 01/29/2025 11:40 AM MANAGER PARKING Pulse 81 01/29/2025 11:40 AM MANAGER PARKING Temperature 36.5 C (97.7 F) 01/16/2025 11:02 AM MANAGER PARKING Respiratory Rate 14 07/03/2024 3:45 PM CDT Oxygen Saturation 97% 01/29/2025 11:40 AM MANAGER PARKING Inhaled Oxygen Concentration - - Weight 62.6 kg (138 lb) 01/29/2025 11:40 AM MANAGER PARKING Height 154.9 cm (5' 1) 01/20/2025 2:39 PM MANAGER PARKING Body Mass Index 26.07 01/20/2025 2:39 PM MANAGER PARKING Plan of Treatment Upcoming Encounters Date Type Department Care Team (Late st Contact Info) Description 02/14/2025 8:00 AM MANAGER PARKING Procedure Only [facility] [address] [place] [address] Marizol Walton L Ac [address] [place] [address] 02/19/2025 10:00 AM MANAGER PARKING Procedure Only [facility] [address] [place] [address] Marizol Walton L Ac [address] [place] [address] 02/24/2025 10:20 AM MANAGER PARKING Office Visit [facility] [address] [place] [address] Junito Thomas MD [address] [place] [address] 02/25/2025 11:30 AM MANAGER PARKING Procedure Only [facility] [address] [place] [address] Marizol Walton L Ac [address] [place] [address] 03/19/2025 8:15 AM MANAGER PARKING Orders Only [facility] [address] [place] [place] 03/20/2025 11:00 AM MANAGER PARKING Procedure Only [facility] [place] [address] Marizol Walton L Ac [address] [place] [address] 03/31/2025 3:30 PM MANAGER PARKING Telemedicine [facility] [address] [place] [address] Janay Nunez MD [address] [facility] [address] [place] [address] 04/02/2025 10:40 AM MANAGER PARKING Office Visit [facility] [place] [address] Keo Escobar MD [address] [place] [address] 04/24/2025 11:00 AM MANAGER PARKING Procedure Only [facility] [place] [address] Marizol Walton L Ac [address] [place] [address] Health Maintenance Due Date Last Done Comments Pneumococcal series for age 50+ (1 of 2 - PCV) 1969 RSV vaccine for adults or (1 - Risk 50-74 years 1-dose series) 2000 Zoster (shingles) series for age 50+ (1 of 2) 2000 DEXA/DXA scan for age 65+ 06/21/2015 COVID-19 vaccine series (2024-26 season) 2024 03/16/2021, 05/23/2020 Influenza Vaccine (#1) 2024 Depression screening for age 12+ 11/21/2024 11/22/2023, 09/08/2023, 01/21/2022, Additional history exists Medicare Wellness for age 65+ 11/22/2024 11/22/2023, 01/21/2022, 01/19/2021, Additional history exists Mammogram for age 45-75 11/26/2025 11/27/19 25, 10/09/2023, 12/08/2021, Additional history exists BMI (ht and wt on same day) for age 18+ 01/20/2026 01/20/2025, 12/12/2024, 11/15/2024, Additional history exists Tetanus booster 11/09/2027 11/08/2017, 05/30/2007 Lipids for age 45-75 11/26/2029 11/26/2024, 06/24/2024, 05/16/2024, Additional history exists Colonoscopy through age 75 10/10/203210/10, 10/10/2022, 10/10/2022, Additional history exists Hepatitis C screening for age 18-79 Completed 02/09/2016 Hepatitis B series for 19+ Aged Out N o longer eligible based on patient's age to complete this topic Procedures Procedure Name Priority Date/Time Associated Diagnosis Comments SCAN CORRESP-EKG RESULTS 025 7:11 AM MANAGER PARKING EKG 12 LEAD Today 01/20/2025 3:41 PM MANAGER PARKING HTN (hypertension) CORTISOL TOTAL Routine 01/20/2025 10:10 AM MANAGER PARKING Endocrine hypertension RENIN ACTIVITY BLOOD Routine 01/20/2025 10:10 AM MANAGER PARKING Endocrine hypertension DHEA-SULFATE (DHEA-S) Routine 01/20/2025 10:10 AM MANAGER PARKING Endocrine hypertension METANEPHRINES FRACTIONATED PLASMA FREE Routine 01/20/2025 10:10 AM MANAGER PARKING Endocrine hypertension ADRENOCORTICOTROPIC HORMONE (ACTH) PLASMA Routine 01/20/2025 10:10 AM MANAGER PARKING Endocrine hypertension ALDOSTERONE LC/MS BLOOD Routine 01/21/20 25 10:10 AM MANAGER PARKING Endocrine hypertension US RENAL WITH DUPLEX COMPLETE Routine 01/08/2025 12:00 AM CDT Hypertension ACUPUNCTURE PLAN OF CARE Routine 025 11:02 AM CDT Chronic neck pain Chronic shoulder pain, unspecified laterality T4,FREE Routine 12/23/2024 1:23 PM CDT Elevated TSH Subacute thyroiditis T3,FREE Routine 12/23/2024 1:23 PM CDT Elevated TSH Subacute thyroiditis TSH Routine 12/23/2024 1:23 PM CDT Elevated TSH Subacute thyroiditis THYROPEROXIDASE ANTIBODY Routine 025 1:02 PM CDT Elevated TSH US PELVIS COMPLETE TA AND TV Routine 12/06/2024 11:51 AM CDT Cyst of left ovary LIPID PANEL W REFLEX MEASURED LDL Routine 11/26/2024 9:21 AM CDT Cerebrovascular accident (CVA), unspecified mechanism (HC) Hyperlipidemia, unspecified hyperlipidemia type XR MAMMO ALEENA BILAT SCREEN Routine 11/26/2024 8:16 AM CDT Visit for screening mammogram SCAN-CT INTERPRETATION 12:00 AM CDT SCAN-EYE EXAM 11/19/2024 12:00 AM CDT COLONOSCOPY SCREENING Routine 10/10/2022 12:00 AM CDT Screen for colon cancer ANTI HCV Routine 02/09/2016 10:00 AM MANAGER PARKING Need for hepatitis C screening test from Last 3 Months or Most Recently Relevant to Health Maintenance Results * SCAN CORRESP-EKG RESULTS (01/23/2025 7:11 AM MANAGER PARKING) Narrative 01/23/2025 7:11 AM MANAGER PARKING Ordered by an unspecified provider. Other Clinical Staff OTHER Final Resul t * EKG 12 LEAD (01/20/2025 3:41 PM MANAGER PARKING) [facility] Interpretation Normal sinus rhythm Normal ECG When compared with ECG of 13-Oct-2023 11:53, No significant change was found Ventricular Rate 73 BPM Atrial Rate 73 BPM P-R Interval 148 ms QRS Duration 82 ms QT 368 ms QTc 405 ms P [place] 39 degrees R [place] 47 degrees T [place] 61 degrees 01/20/2025 3:41 PM MANAGER PARKING 01/20/2025 5:22 PM MANAGER PARKING Kirsty ANTHONY EKG ORD Final Result * CORTISOL TOTAL (01/20/2025 10:10 AM MANAGER PARKING) [facility] CORTISOL, TOTAL 8.2 mcg/dL 6:37 AM MANAGER PARKING [facility] Comment: The Cortisol result may be decreased on average 10-20% relative to results previously obtained with this method due to a recent quality improvement made in October 2024 by the reagent lpn medical assistant. Reference Range: For 8 a.m.(7-9 a.m.) Specimen: 4.0-22.0 Reference Range: For 4 p.m.(3-5 p.m.) Specimen: 3.0-17.0 * Please interpret above results accordingly * Blood BLOOD SPECIMEN / Unknown [facility] / Unknown 01/20/2025 10:10 AM MANAGER PARKING 01/20/2025 10:15 AM MANAGER PARKING Ronaldo Pavon MD CHEMISTRY Final Result [facility] [address] [place] [address], * METANEPHRINES FRACTIONATED PLASMA FREE (01/20/2025 10:10 AM MANAGER PARKING) NORMETANEPHRINE, FREE 110 < OR = 148 pg/mL 01/26/2025 2:41 PM MANAGER PARKING [facility] Comment: This test was developed and its analytical performance characteristics have been determined by [employer]. It has not been cleared or approved by the FDA. This assay has been validated pursuant to the CLIA regulations and is used for clinical purposes. METANEPHRINE, FREE 41 < OR = 57 pg/mL 01/26/2025 2:41 PM MANAGER PARKING [facility] Comment: This test was developed and its analytical performance characteristics have been determined by [facility]. It has not been cleared or approved by the FDA. This assay has been validated pursuant to the CLIA regulations and is used for clinical purposes. TOTAL, FREE ([place] + NMN) 151 < OR = 205 pg/mL 01/26/2025 2:41 PM MANAGER PARKING [facility] Comment: Elevations > 4-fold upper reference range: strongly suggestive of a pheochromocytoma(1). Elevations >1 - 4-fold upper reference range: significant but not diagnostic, may be due to medications or stress. Suggest running 24 hr urine fractionated metanephrines and serum Chromogranin A for confirmation. Reference: (1) Judi Beckwith et al, Plasma Chromogranin A or Urine Fractionated Metanephrines Follow-Up Testing Improves the Diagnostic Accuracy of Plasma Fractionated Metanephrines for Pheochromocytoma. The Journal of Clinical Endocrinology and Metabolism 93 (1),91-95, 2008. For additional information, please refer to http://education.[employer].Compology/faq/MetFractFree (This link is being provided for informational/educational purposes only.) This test was developed and its analytical performance characteristics have been determined by [facility]. It has not been cleared or approved by the FDA. This assay has been validated pursuant to the CLIA regulations and is used for clinical purposes. Blood BLOOD SPECIMEN / Unknown [facility] / Unknown 01/20/2025 10:10 AM MANAGER PARKING 01/20/2025 10:15 AM MANAGER PARKING Ronaldo Pavon MD SEND OUTS Final Result [facility] [address] [place] [address], * ADRENOCORTICOTROPIC HORMONE (ACTH) PLASMA (01/20/2025 10:10 AM MANAGER PARKING) [facility] ACTH, PLASMA 13 6 - 50 pg/mL 01/23/2025 4:39 PM MANAGER PARKING [facility] Comment: Reference range applies only to the specimens collected between 7am-10am. Blood BLOOD SPECIMEN / Unknown [facility] / Unknown 01/20/2025 10:10 AM MANAGER PARKING 01/20/2025 10:15 AM MANAGER PARKING us Ronaldo Pavon MD SEND OUTS Final Result Performing Organization Address [facility] Co de Phone Number [facility] [address] [address], * ALDOSTERONE LC/MS BLOOD (01/20/2025 10:10 AM MANAGER PARKING) [facility] ALDOSTERONE, LC/MS/MS 7 ng/dL 01/24/2025 10:21 AM MANAGER PARKING [facility] Comment: Adult Reference Ranges for Aldosterone: Upright 8:00-10:00 am < or = 28 ng/dL Upright 4:00-6:00 pm < or = 21 ng/dL Supine 8:00-10:00 am 3-16 ng/dL This test was developed and its analytical performance characteristics have been determined by [facility]. It has not been cleared or approved by the FDA. This assay has been validated pursuant to the CLIA regulations and is used for clinical purposes. Blood BLOOD SPECIMEN / Unknown [facility] / Unknown 01/20/2025 10:10 AM MANAGER PARKING 01/20/2025 10:15 AM MANAGER PARKING us Ronaldo Pavon MD SEND OUTS Final Result Performing Organization Address [facility] de Phone Number [facility] [address] [address], * RENIN ACTIVITY BLOOD (01/20/2025 10:10 AM MANAGER PARKING) [facility] PLASMA RENIN ACTIVITY, LC/MS/MS 0.69 0.25 - 5.82 ng/mL/h 01/25/2025 1:25 PM MANAGER PARKING [facility] Comment: This test was developed and its analytical performance characteristics have been determined by [employer]. It has not been cleared or approved by the FDA. This assay has been validated pursuant to the CLIA regulations and is used for clinical purposes. Blood BLOOD SPECIMEN / Unknown [facility] / Unknown 01/20/2025 10:10 AM MANAGER PARKING 01/20/2025 10:15 AM MANAGER PARKING Ronaldo Pavon MD SEND OUTS Final Result Performing Organization Address [facility]/ZIP Co de Phone Number [facility] [address] [address], * DHEA-SULFATE (DHEA-S) (01/20/2025 10:10 AM MANAGER PARKING) [facility] DHEA SULFATE 41 4 - 157 mcg/dL 01/21/2025 5:51 AM MANAGER PARKING [facility] Blood BLOOD SPECIMEN / Unknown [facility] / Unknown 01/20/2025 10:10 AM MANAGER PARKING 01/20/2025 10:15 AM MANAGER PARKING Ronaldo Pavon MD SEND OUTS Final Result Performing Organization Address [facility]/ZIP Co de Phone Number [facility] [address] [address], * US RENAL W DUPLEX COMPLETE (01/08/2025 12:00 AM CDT) Anatomical Region Laterality Modality Abdomen, KIDNEYS, KIDNEY L, KIDNEY R Ultrasound Janay Nunez MD US Final Result * TSH (12/23/2024 1:23 PM CDT) [facility] TSH 1.61 0.40 - 4.50 mIU/L 12/24/2024 4:41 AM CDT [facility] Blood BLOOD SPECIMEN / Unknown [facility] / Unknown 12/23/2024 1:23 PM CDT 12/23/2024 1:23 PM CDT us Kyra ANTHONY CHEMISTRY Final R esult Performing Organization Address [facility]/ZIP Co de Phone Number [facility] [address] [place] [address], [place] [phone] * T3,FREE (12/23/2024 1:23 PM CDT) T3, FREE 2.8 2.3 - 4.2 pg/mL 12/24/2024 4:41 AM CDT [facility] Blood BLOOD SPECIMEN / Unknown [facility] / Unknown 12/23/2024 1:23 PM CDT 12/23/2024 1:23 PM CDT us Kyra ANTHONY CHEMISTRY Final R esult Performing Organization Address [facility] Co de Phone Number [facility] [address] [place] [address], [place] [phone] * T4,FREE (12/23/2024 1:23 PM CDT) Pathologist [facility] T4, FREE 1.2 0.8 - 1.8 ng/dL 12/24/2024 4:41 AM CDT [facility] Blood BLOOD SPECIMEN / Unknown [facility] / Unknown 12/23/2024 1:23 PM CDT 12/23/2024 1:23 PM CDT us Kyra ANTHONY CHEMISTRY Final R esult Performing Organization Address [facility]/ZIP Co de Phone Number [facility] [address] [place] [address], [place] [phone] * (ABNORMAL) THYROPEROXIDASE ANTIBODY (12/10/2024 1:02 PM CDT) THYROID PEROXIDASE ANTIBODIES 82(H) <9 IU/mL 12/11/2024 4:00 PM CDT [facility] Blood BLOOD SPECIMEN / Unknown [facility] / Unknown 12/10/2024 1:02 PM CDT 12/10/2024 1:02 PM CDT Narrative [facility] - 12/11/2024 4:00 PM CDT FASTING:UNKNOWN FASTING: UNKNOWN us Kyra ANTHONY SEND OUTS Final R esult [facility] [address] [place] [address], * US PELVIS COMPLETE TA AND TV (12/06/2024 11:51 AM CDT) Anatomical Region Laterality Modality Pelvis Ultrasound 12/06/2024 2:16 PM CDT Impressions 12/06/2024 2:16 PM CDT Benign left ovarian cyst measures 5.0 cm with a single thin septation noted. Decreased septations compared to the prior study. Similar uterine fibroids. 5 millimeter heterogeneous endometrium. Dictated by Iván Luu MD @ 12/06/2024 2:16:01 PM (Electronically Signed) Narrative 12/06/2024 2:16 PM CDT For Patients: As a result of the Century Cures Act, medical imaging exams and procedure reports are released immediately into your electronic medical record. You may view this report before your referring provider. If you have questions, please contact your health care provider. INDICATION: Left ovarian cyst COMPARISON: 03/29/2016 TECHNIQUE: 2D sal-scale and color Doppler images were acquired of the pelvis using a transabdominal and transvaginal approach. Transvaginal imaging performed to better visualize the endometrial stripe and ovaries. FINDINGS: Sonographic images demonstrate a normal size and smooth outer contour of the uterus. Uterus measures 6.3 cm in length by 6.5 cm in AP diameter by 3.2 cm in transverse dimension. Hyperechoic structure within the uterine myometrium measures 6 x 7 x 5 millimeters, not significantly changed. Right-sided partially exophytic fibroid measures 2.3 x 1.9 x 2.1 cm, also chronic. The endometrial lining appears heterogeneous and measures 5 mm in composite thickness. The right ovary is not visualized due to bowel gas and the left ovary measures 5.4 x 3.7 x 3.1 cm. The left ovary demonstrates normal arterial and venous blood flow on color Doppler analysis. There are no suspicious fluid collections within the cul-de-sac. Benign circumscribed left ovarian cyst measures 5.0 x 3.1 x 3.0 cm. Single thin internal septation noted. No internal color flow. This appears less septated compared to the prior study. Procedure Note Iván Luu MD - 12/06/2024 For Patients: As a result of the Century Cures Act, medical imagingexams and procedure reports are released immediately into your electronicmedical record. You may view this report before your referring provider.If you have questions, please contact your health care provider. INDICATION: Left ovarian cyst COMPARISON: 03/29/2016 TECHNIQUE: 2D sal-scale and color Doppler images were acquired of the pelvis using atransabdominal and transvaginal approach. Transvaginal imaging performedto better visualize the endometrial stripe and ovaries. FINDINGS: Sonographic images demonstrate a normal size and smooth outer contour ofthe uterus. Uterus measures 6.3 cm in length by 6.5 cm in AP diameter by3.2 cm in transverse dimension. Hyperechoic structure within the uterinemyometrium measures 6 x 7 x 5 millimeters, not significantly changed.Right-sided partially exophytic fibroid measures 2.3 x 1.9 x 2.1 cm, alsochronic. The endometrial lining appears heterogeneous and measures 5 mm incomposite thickness. The right ovary is not visualized due to bowel gas and the left ovarymeasures 5.4 x 3.7 x 3.1 cm. The left ovary demonstrates normal arterialand venous blood flow on color Doppler analysis. There are no suspiciousfluid collections within the cul-de-sac. Benign circumscribed left ovariancyst measures 5.0 x 3.1 x 3.0 cm. Single thin internal septation noted. Nointernal color flow. This appears less septated compared to the priorstudy. IMPRESSION: Benign left ovarian cyst measures 5.0 cm with a single thin septationnoted. Decreased septations compared to the prior study. Similar uterine fibroids. 5 millimeter heterogeneous endometrium. Dictated by Iván Luu MD @ 12/06/2024 2:16:01 PM (Electronically Signed) us Kyra ANTHONY Final R esult * (ABNORMAL) LIPID PANEL W REFLEX MEASURED LDL (11/26/2024 9:21 AM CDT) CHOLESTEROL, TOTAL 278(H) <200 mg/dL 11/27/2024 4:19 AM CDT [facility] TRIGLYCERIDES 254(H) <150 mg/dL 11/27/2024 4:19 AM CDT [facility] Comment: If a non-fasting specimen was collected, consider repeat triglyceride testing on a fasting specimen if clinically indicated. Sue et al. J. of Clin. Lipidol. 2015;9:129-169. HDL CHOLESTEROL 53 > OR = 50 mg/dL 11/27/2024 4:19 AM CDT [facility] NON HDL CHOLESTEROL 225(H) <130 mg/dL (calc) 11/27/2024 4:19 AM CDT [facility] Comment: Non-HDL level > or = 220 is very high and may indicate genetic familial hypercholesterolemia (FH). Clinical assessment and measurement of blood lipid levels should be considered for all first-degree relatives of patients with an FH diagnosis. For patients with diabetes plus 1 major ASCVD risk factor, treating to a non-HDL-C goal of <100 mg/dL (LDL-C of <70 mg/dL) is considered a therapeutic option. CHOL/HDLC RATIO 5.2(H) <5.0 (calc) 11/27/2024 4:19 AM CDT [facility] LDL-CHOLESTEROL 180(H) mg/dL (calc) 11/27/2024 4:19 AM ZytoprotecT [facility] Comment: Reference range: <100 Desirable range <100 mg/dL for primary prevention; <70 mg/dL for patients with CHD or diabetic patients with > or = 2 CHD risk factors. LDL-C is now calculated using the Andrea-Leslie calculation, which is a validated novel method providing better accuracy than the Friedewald equation in the estimation of LDL-C. Andrea GUAJARDO et al. TEODORO. 2013;310(19): 1031-5358 (http://education.Womensforum.Compology/faq/CYN010) Blood BLOOD SPECIMEN / Unknown [facility] / Unknown 11/26/2024 9:21 AM CDT 11/26/2024 9:21 AM CDT Narrative [facility] - 11/27/2024 4:19 AM CDT FASTING:UNKNOWN FASTING: UNKNOWN Kyra ANTHONY CHEMISTRY Final R esult [facility] [id number] [place] [address], * XR MAMMO ALEENA BILAT SCREEN (11/26/2024 8:16 AM CDT) Anatomical Region Laterality Modality BREASTS, Breast Left, Breast Right Bilateral Mammography Impressions 11/26/2024 3:10 PM CDT There is no radiographic evidence for malignancy. Recommend annual mammograms. MAMMOGRAM ASSESSMENT: ACR 1 Negative PATIENTS: You will also receive a letter with your examination results in an easy to read format. If you have questions about your results, please contact your referring provider. Narrative 11/26/2024 3:10 PM CDT For Patients: As a result of the Century Cures Act, medical imaging exams and procedure reports are released immediately into your electronic medical record. You may view this report before your referring provider. If you have questions, please contact your health care provider. XR MAMMO ALEENA BILAT SCREEN [[id number]] CLINICAL HISTORY: This is an asymptomatic 74 y.o. patient. INDICATION FOR EXAM: Mammogram Screening. TECHNIQUE: CC and MLO views were obtained. This study was evaluated with the assistance of Computer-Aided Detection. Breast Tomosynthesis was used in interpretation. COMPARISON FILM: Yes 10/09/23 [facility] 12/08/21 [facility] FINDINGS: There are scattered areas of fibroglandular density. There are no dominant masses, suspicious micro calcifications or areas of architectural distortion. Kyra ANTHONY MAMMO Final R esult * SCAN-CT INTERPRETATION (11/24/2024 12:00 AM CDT) Anatomical Region Laterality Modality Other us Scanner OTHER Final Result * SCAN-EYE EXAM (11/19/2024 12:00 AM CDT) us Scanner OTHER Final Result * COLONOSCOPY SCREENING (10/10/2022 12:00 AM CDT) us Andrea Devi MD GI PROCEDURE ORD Final Re sult * ANTI HCV [[id number]] (02/09/2016 10:00 AM MANAGER PARKING) HEPATITIS C ANTIBODY Non-Reacti ve Non-Reacti ve 02/09/2016 5:42 PM MANAGER PARKING [facility] Ticket ABC [facility] Blood BLOOD SPECIMEN / Unknown Venipuncture / Unknown 02/09/2016 10:00 AM MANAGER PARKING 02/09/2016 10:01 AM MANAGER PARKING Narrative [facility] - 02/09/2016 5:42 PM MANAGER PARKING Antibodies to HCV not detected; does not exclude the possibility of exposure to HCV. us Kyra ANTHONY SEND OUTS Final R esult [facility] [address] [place] [address], from Last 3 Months or Most Recently Relevant to Health Maintenance Insurance [employer] [place] [place] BLUE HB ONLY MEDICARE PART B HB ONLY [employer] [place] BLUE MR PB ONLY MEDICARE PART A HB ONLY [employer] Member Subscriber Plan / Payer (Ef fective 2009-Present) Name:Miya Restrepo Relation to Subscriber:Self Name:Kaye Marcoswil Bell Payer ID:Not on file Group ID:Not on file Type:Not on file [id number] Address: [address] [place] [address] Advance Directives * Full Code (Latest Code [...] 4:20 AM 03/22/2010 1:40 PM Care Teams Escort Patients Relationship Specialty Start Date End Date Kyra Perera PA [address] [place] [address] PCP - General 06/16/08 Genaro Leonard MD [address] [facility] Naomi [address] [address] Cardiology - Electrophysiology 05/30/22 Janay Nunez MD [address] [place] [address] Cardiology - Interventional 09/21/22 Carolyn Pisano PA [facility] [place] [address] Physician Denture Packer 09/21/22 Keo Escobar MD [address] [place] [address] Sports Medicine - Family Medicine 09/21/22 [place] [address] [place] [address] Endocrinology Endocrinology 01/20/25
--- OUTSIDE RECORDS SUMMARY | 2025-02-09 18:56 | XMS_ITS | Encounter Summary ---
Author Organization [facility] Address [address] [place] [address]. [place] [address] Care Team Providers Care Table Games Shift Manager Name Role Phone Pramod Pereraflavio Bell Primary Care Provider [phone] Angel Hollins MD Unavailable Petra Dorado Unavailable [phone] Angel Hollins MD Unavailable [phone] Yves Ballard MD Unavailable + [phone] Encounter Details Date Type Department Care Team (Late st Contact Info) Description 02/21/2024 [facility] Medical Advice [facility] [address] [place] [address] Angel Hollins MD [address] [place] [address] [id number] [place] [address] Social History Tobacco Use Types Packs/Day Years [...] on file 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 Gender Identity Not on file Sexual Orientation Not on file documented as of this encounter Plan of Treatment Not on file documented as of this encounter Visit Diagnoses Not on filedocumented in this encounter Care Teams Table Games Shift Manager Relationship Specialty Start Date End Date Kyra Perera [address] [place] [address] PCP - General Physician Sweet Pickled Fruit Maker 03/31/22 Angel Hollins MD [address] [address] Neurology 07/20/23 Petra Dorado PA [address] [place] [address] Physician Sweet Pickled Fruit Maker Physical Medicine and Rehabilitation 07/20/23 Angel Hollins MD [address] [address] Assigned Neuroscience Provider 08/03/23 Yves Ballard MD [address] [facility] [address] [place] [address] Assigned Heart and Vascular Provider 12/04/23 documented as of this encounter
--- OUTSIDE RECORDS SUMMARY | 2025-02-09 18:56 | XMS_ITS | Encounter Summary ---
Author Organization [facility] Address [address] [place] [address] Care Team Providers Care Screening Unit Registered Nurse Name Role Phone Gwendinalorie Kyra Bell Primary Care Provider [phone] Angel Hollins MD Unavailable Petra Dorado Unavailable [phone] Angel Hollins MD Unavailable Yves Ballard MD Unavailable [phone]- [phone] Reason for Visit * Reason Onset Date Comments Patient Request 10/18/2023 Encounter Details Date Type Department Care Team (Late st Contact Info) Description 10/18/2023 [facility] Medical Advice [facility] Neurology Clinic [address] [place] [address] Angel Hollins MD [address] [place] [address] [id number] [place] [address] Patient Request Social History Tobacco [...] file 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 YES 10/18/2023, 12:45 PM documented in this encounter Plan of Treatment Not on file documented as of this encounter Visit Diagnoses Not on filedocumented in this encounter Care Teams Screening Unit Registered Nurse Relationship Specialty Start Date End Date Kyra Perera [address] [place] [address] PCP - General Physician Paid Search Manager 03/31/22 Angel Hollins MD [address] [place] [address] Neurology 07/20/23 Petra Dorado PA [address] [id number] Physician Paid Search Manager Physical Medicine and Rehabilitation 07/20/23 Angel Hollins MD [address] [place] [address] Assigned Neuroscience Provider 08/03/23 Yves Ballard MD [address] [place] [address] Assigned Heart and Vascular Provider 12/04/23 documented as of this encounter
--- OUTSIDE RECORDS SUMMARY | 2025-02-09 18:56 | XMS_ITS | Clinical Summary ---
Author Organization [facility] Address [address] [place] [address] Care Team Providers Care Molder Bench Name Role Phone Bettye Davis MD Primary [...] for each transition of care or referral. [place] Allergies Active Allergy Reactions Criticality Noted Date Comments Atorvastatin 10/28/2010 Caused myalgias. Diltiazem Anxiety 05/12/2011 Hydralazine Tachycardia 05/12/2011 Hydrochlorothiazide 09/26/2007 ? asthma Hydrocodone-Acetaminophen Nausea And Vomiting 1 05/01/2011 Lorazepam 03/26/2010 Pt reports depression Methyldopa Rash 06/13/2011 Morphine 05/22/2006 Penicillins 05/22/2006 Rosuvastatin 10/28/2010 Caused myalgias. Shellfish Protein-Containing Drug Products Angioedema High 05/11/2010 Had severe pain [...] 100 MG Take 100 mg by mouth. 10/30/201 7 Active fluticasone (FLONASE) 50 MCG/ACT nasal [...] this topic Insurance MEDICARE MANAGED CARE BC COUNTS INCLUDE 234 BEDS AT [facility] Care Teams Molder Bench Relationship Specialty Start Date End Date Bettye Davis MD [address] [place] [address] PCP - General 06/13/10
--- OUTSIDE RECORDS SUMMARY | 2025-02-09 18:56 | XMS_ITS | Clinical Summary ---
Author Organization [facility] Address [address] [place] [id number] Care Team Providers Care Auto Dealership Porter Name Role Phone Kyra Perera Arabella Primary Care Provider [phone] Angel Hollins MD Unavailable Petra Dorado Unavailable [phone] Angel Hollins MD Unavailable Yves Ballard MD Unavailable [phone] Allergies Active Allergy Reactions Criticality Noted Date Comments Abdias Inhibitors 06/13/2024 Acetaminophen 09/26/2023 Amlodipine Palpitations High 03/03/2020 Atorvastatin Muscle Pain (Myalgia) High 10/28/2010 Other reaction(s): Myalgia Caused myalgias. Caused myalgias. Caused myalgias. Caused myalgias. Other reaction(s): Myalgia Caused myalgias. Caused myalgias. Caused myalgias. Caused myalgias. Chlorthalidone Shortness Of Breath High 03/03/2020 Other Reaction(s): Dyspnea Clonidine Shortness Of Breath,Difficulty breathing High 03/04/2020 Diltiazem Anxiety High 05/12/2011 Doxazosin Other (See Comments) High 05/21/2020 Bleeding Other Reaction(s): Bleeding Nose bleeding, tried twice for 3 days and happened both times Ezetimibe Other (See Comments) 05/24/2024 Pins and needles feeling all over her body, swollen throat, muscle pain Gabapentin Shortness Of Breath High 11/09/2023 Hydralazine High 05/12/2011 Other reaction(s): Tachycardia Other Reaction(s): Tachycardia Hydrochlorothiazide Other (See Comments),Difficult y breathing High 09/26/2007 ? asthma ? asthma ? asthma ? asthma Hydrocodone Nausea and Vomiting High 09/26/2023 Hydrocodone-Acetaminophen Nausea and Vomiting 1 05/01/2011 Isosorbide Palpitations Low 04/07/2020 Isosorbide Nitrate Headache 01/27/2024 Labetalol Shortness Of Breath,Difficulty breathing High 05/05/2011 Lactose 02/18/2009 Other reaction(s): Intolerance-Can't Take Flu-like symptoms Other Reaction(s): Intolerance-Can't Take Flu-like symptoms Other reaction(s): Intolerance-Can't Take Flu-like symptoms Latex Other (See Comments) 06/15/2016 Lisinopril High 11/30/2007 Other reaction(s): Chest Pain Other Reaction(s): Chest Pain Lorazepam Other (See Comments) High 03/26/2010 Pt reports depression Pt reports depression Pt reports depression Pt reports depression Other Reaction(s): Depression Losartan Shortness Of Breath High 12/01/2010 Noted dyspnea Noted dyspnea Noted dyspnea Other Reaction(s): Dyspnea Pregabalin Shortness Of Breath High 11/09/2023 Methyldopa Rash High 06/13/2011 Metoprolol Other (See Comments) Medium 12/01/2010 Reaction to SUCCINATE was described by patient as throat swelling that she treated at home with benadryl and did not seek medical care (Tolerating metoprolol tartrate as of 10/28/24) Metronidazole Hives High 09/26/2023 Milk (Cow) High 09/26/2023 Morphine Anaphylaxis,Hives,N ausea and Vomiting High 01/12/2005 Olmesartan Dizziness 03/18/2022 vertigo Other (Do Not Use) High 09/26/2023 Other Drug Allergy (See Comments) Other (See Comments) 03/20/2013 got sick from it Penicillins Angioedema,Swelling High 01/12/2005 Other reaction(s): Angioedema, Angioedema Other Reaction(s): Throat Closing, throat swells Propafenone Shortness Of Breath High 11/09/2023 Propranolol Anxiety,Headache Low 01/03/2023 Rosuvastatin Muscle Pain (Myalgia) High 10/28/2010 Other reaction(s): Myalgia Caused myalgias. Caused myalgias. Caused myalgias. Caused myalgias. Other reaction(s): Myalgia Caused myalgias. Caused myalgias. Caused myalgias. Caused myalgias. Shellfish Allergy Angioedema High 05/11/2010 Had severe pain and swelling after lobster Other reaction(s): Angioedema Had severe pain and swelling after lobster Shellfish Protein-Containing Drug Products Angioedema High 05/11/2010 Other reaction(s): Angioedema Had severe pain and [...] ate lobster Sulfa Antibiotics Hives High 05/22/2006 Sulfatolamide Hives 01/12/2005 Verapamil Shortness Of Breath High 05/02/2011 Other Reaction(s): Dyspnea Medications ALPRAZolam (XANAX) 0.25 MG tablet Take [...] or severe pain or per patient request) 09/04/19 Active aspirin 81 MG EC tabletIndicati ons:Right upper quadrant abdominal pain Take 1 tablet (81 mg) by mouth daily 09/04/19 24 Active famotidine (PEPCID) 20 MG tablet Take [...] subcutaneously every 14 days. 6 mL 3 06/14/19 25 Active Pitavastatin Magnesium (ZYPITAMAG) 2 MG TABSIndication s:Hyperlipidem ia LDL goal <70 Take 2 mg by mouth daily. 30 tablet 5 01/18/20 25 Active Pitavastatin Magnesium (ZYPITAMAG) 2 MG TABS Take by mouth. 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 Zio monitor April 2023 reviewed Intolerant of beta-blockers to suppress PVCs Continue home low-dose metoprolol tartrate 6.25 mg twice daily Mucous cyst of finger 12/10/2024 Obstructive sleep apnea beatriz shelby with continuous positive airway pressure (CPAP) 12/10/2024 Overview (12/10/2024): Referred for sleep study. Patient has sleep apnea. She had a CPAP that was recalled. She quit using it because of the recall. Pending further evaluation. 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 For treatment of stroke patient should have aggressive lipid-lowering therapy. Patient is reluctant to attempt statin therapy. Outpatient follow-up to review options. 07/01: Discussed risks and benefits, patient verbalizes understanding 07/02: Prefers to wait until the outpatient setting before considering lipid- lowering agents. 07/03: Will discuss possible treatment options given her relative fear of statins including low-dose rosuvastatin, initially twice weekly and gradually increased dose over time, bempedoic acid, PCSK9 inhibitor inclisiran. 07/04: She is agreeable to start low-dose trial of rosuvastatin 5 mg orally once weekly for 1 week, and if she tolerates that then increase to 5 mg twice weekly for 2 weeks, and if she tolerates that then increase to 5 mg thrice weekly for 2 weeks, and so forth thereafter. Ischemic cerebrovascular accident (CVA) 12/11/19 25 Overview (12/10/2024): Symptom onset, slurred speech, 06/29/2023 around noon. Presented to ED [address] head without evidence of acute intracranial abnormality. CTA head/neck shows no large vessel occlusion, mild stenosis (< 50%) right ICA/left ICA. MRI shows new diffusion restriction within the left centrum semiovale and posterior putamen. Primary symptoms are expressive aphasia and right upper extremity apraxia and difficulty with handwriting. Per [facility] Stroke Neurology, Dr. Wagner, recommendations as follows: Continue aspirin 325 mg daily and Plavix 75 mg daily x 21 days, then d/c plavix and decrease ASA to 81mg daily Allow for permissive hypertension for initial 48 hours, begin slowly lowering blood pressure on Monday (can work on normotensive as an outpatient) Lipids, 04/03/2023, reviewed. Recommending statin (patient reported sensitivities to statins and resistance to initiating therapy). Will need close outpatient follow-up/management with PCP. 07/01: patient reiterates sensitivities to statin, plan to follow-up with PCP PT/OT. Continued daily aerobic activity > 30 minutes as tolerated Continue telemetry. Recent Zio completed April 2023, defer consideration for repeat Zio monitoring to PCP Defer repeat echo to PCP as recently completed 05/03/202306/30: Repeat CT head for reported new symptoms (Neuorology reeval afterward reports these were present on admission as well) now showing evidence of ischemic stroke seen on MRI, no evidence of hemorrhagic transformation. Reviewed with [facility], Dr. Wagner (continuity as also evaluated her last night) Patient is currently followed at [facility] in [place] for TBI. Will continue to attempt inpatient rehab placement if at all possible. Hemiparesis affecting domina nt side as late effect of cerebrovascular accident (CVA) 03/25/2024 Anxiety 01/27/2024 Overview (12/10/2024): Manages her anxiety with p.r.n. diazepam and p.r.n. alprazolam. Likely contributing to her reports of medication intolerance. Concussion without loss of consciousness 024 Hypertension with intoleranc e to multiple antihypertensive drugs 01/27/2024 Overview (12/10/2024): Patient reports intolerance to all classes of blood pressure medications. Real Estate Asset Manager is considering renal denervation surgery for this. Permissive hypertension post stroke (48 hours) to keep blood pressure below to 220/120 Gradual introduction of blood pressure medicines to achieve normotension over the next few weeks. Given longstanding history of medication intolerance, blood pressure control is unlikely with medications. 07/01: Patient has refused evening dose metoprolol the past 2 nights. Tells me she needs to take this slowly. Discussed risks and benefits, verbalizes understanding. 07/02: Willing to continue low-dose antihypertensives for now and to gradually increase the doses. 07/04: Increase telmisartan dose from 10 mg once daily to 10 mg twice daily today. Continue to make very slight doses in her antihypertensive regimen as warranted over time. Post concussion syndrome 01/27/2024 Superficial thrombophlebitis 01/27/2024 [...] of cervical intervertebral disc Raynaud's syndrome 01/02/2007 Irritable bowel syndrome 01/17/2005 Encounters Date Type Department Care Team Description 01/30/2025 4:32 PM DRILLING MANAGER - 01/30/2025 11:46 PM DRILLING MANAGER Emergency [facility] Emergency Dept [address] [place] [address] Andrea Gamboa DO Dysarthria (Primary Dx); Right facial numbness; Nonintractable headache, unspecified chronicity pattern, unspecified headache type Discharge Disposition: Home or Self Care 01/30/2025 Travel 01/17/2025 10:30 AM DRILLING MANAGER Office Visit [facility] [place] [id number] [phone] Yves Ballard MD Hyperlipidemia LDL goal <70 (Primary Dx); Elevated lipoprotein(a); Atherosclerosis of abdominal aorta; Cerebrovascular accident (CVA), unspecified mechanism (H); Statin intolerance; Hypertension with intolerance to multiple antihypertensive drugs; Medication intolerance ( multiple 40 drugs) 01/17/2025 Travel 01/08/2025 7:47 PM CDT - 01/08/2025 11:06 PM CDT Emergency [facility] Emergency Dept [address] [facility] [place] [address] Neil Marsh MD Chest pain (Primary Dx); Headache; Hypertension Discharge Disposition: Home or Self Care 01/08/2025 Travel 12/11/2024 Telephone [facility] [place] [address] [place] [phone] Yves Ballard MD Appointment 12/10/2024 4:40 PM CDT Virtual Visit [facility] [place] [address] [place] [phone] Yves Ballard MD Hyperlipidemia LDL goal <70; Statin intolerance; Elevated lipoprotein(a); Atherosclerosis of abdominal aorta 12/09/2024 Telephone [facility] [place] [address] [place] [phone] Yves Ballard MD Patient Request 12/08/2024 6:08 AM CDT - 12/08/2024 10:27 AM CDT Emergency [facility] Emergency Dept [address] [place] [address] Arabella Suarez MD Chest pain, unspecified type (Primary Dx); Headache, unspecified headache type; Hypertension, unspecified type; Paresthesias; Neck pain Discharge Disposition: Home or Self Care 12/08/2024 Travel from Last 3 Months Immunizations Immunization Administration Dates Next Due TD,PF [...] on file Legal Sex Female 3:34 AM DRILLING MANAGER Gender Identity Not on file Sexual Orientation Not on file Last Filed Vital Signs Vital Sign Reading Time Taken Comments Blood Pressure 155/85 01/30/2025 11:38 PM DRILLING MANAGER Pulse 68 01/30/2025 11:38 PM DRILLING MANAGER Temperature 36.9 C (98.5 F) 01/30/2025 4:36 PM DRILLING MANAGER Respiratory Rate 18 01/30/2025 4:36 PM DRILLING MANAGER Oxygen Saturation 98% 01/30/2025 11:39 PM DRILLING MANAGER Inhaled Oxygen Concentration - - Weight 60 kg (132 lb 4.4 oz) 01/30/2025 4:36 PM DRILLING MANAGER Height 157.5 cm (5' 2) 01/08/2025 7:44 PM CDT Body Mass Index 24.19 01/08/2025 7:44 PM CDT Plan of Treatment Health Maintenance Due Date Last Done Comments ADVANCE CARE PLANNING 1950 ANNUAL REVIEW OF HM ORDERS 1950 CT COLONOGRAPHY 1950 DEXA 1950 FIT 1950 FLEX SIG 1950 MICROALBUMIN 1950 sDNA (Cologuard) 1950 PNEUMOCOCCAL VACCINE 50+ YEARS (1 of 1 - PCV) 2000 RSV VACCINE (1 - Risk 50-74 years 1-dose series) 2000 ZOSTER VACCINE (1 of 2) 2000 COVID-19 VACCINE (3 - season) 2024 03/16/2021, 05/23/2020 INFLUENZA VACCINE (#1) 2024 MEDICARE ANNUAL WELLNESS VISIT 11/21/2024 11/22/2023, 01/21/2022, 01/19/2021, Additional history exists LIPID 02/19/2025 02/20/2024, 01/27/2024 FALL RISK ASSESSMENT 01/17/2026 01/17/2025, 06/14/19 25 BMP 01/30/2026 01/30/2025, 12/12, 12/08/2024, Additional history exists MAMMO SCREENING 11/26/2026 11/26/2024, 11/11, 10/09/2023, Additional history exists DTAP/TDAP/TD VACCINE (3 - Td or Tdap) 11/09/2027 11/08/2017, 05/30/2007 DIABETES SCREENING 01/31/2028 01/30/2025, 1 04/01/2024, 01/08/2025, Additional history exists COLONOSCOPY 10/10/2032 10/10/2022 COLORECTAL CANCER SCREENING 10/10/2032 HEPATITIS C SCREENING Completed 02/09/2016 PHQ-2 (once per calendar year) Completed 12/10/2024, 10/17/2023, 07/25/2023 URINALYSIS Completed 01/30/2025, 09/10, 08/27/2023 HPV VACCINE (No Doses Required) Completed MENINGITIS VACCINE Aged Out No longer eligible based on patient's age to complete this topic Procedures Procedure Name Priority Date/Time Associated Diagnosis Comments MR BRAIN W/O & W CONTRAST STAT 01/30/2025 10:31 PM DRILLING MANAGER EKG 12-LEAD, TRACING ONLY STAT 01/30/2025 4:59 PM DRILLING MANAGER CBC WITH PLATELETS AND DIFFERENTIAL (LIMITED OCCURRENCES) STAT 01/30/2025 4:56 PM DRILLING MANAGER ROUTINE UA WITH MICROSCOPIC REFLEX TO CULTURE STAT 01/30/2025 4:56 PM DRILLING MANAGER EXTRA RED TOP TUBE STAT 01/30/2025 4: 56 PM DRILLING MANAGER CBC WITH PLATELETS AND DIFFERENTIAL STAT 01/30/2025 4:56 PM DRILLING MANAGER EXTRA TUBE STAT 01/30/2025 4:56 PM DRILLING MANAGER TROPONIN T, HIGH SENSITIVITY STAT 01/30/2025 4:56 PM DRILLING MANAGER PARTIAL THROMBOPLASTIN TIME STAT 01/30/2025 4:56 PM DRILLING MANAGER INR STAT 01/30/2025 4:56 PM DRILLING MANAGER BASIC METABOLIC PANEL (LIMITED OCCURRENCES) STAT 01/30/2025 4:56 PM DRILLING MANAGER CTA HEAD NECK W CONTRAST STAT 01/30/2025 4:[address] HEAD W/O CONTRAST STAT 01/30/2025 4:52 PM DRILLING MANAGER GLUCOSE BY METER STAT 01/30/2025 4:32 PM DRILLING MANAGER TROPONIN T, HIGH SENSITIVITY STAT 01/08/2025 10:12 PM CDT XR CHEST 2 VIEWS STAT 01/08/2025 9:08 PM CDT D DIMER QUANTITATIVE STAT 01/08/2025 8:02 PM CDT EXTRA RED TOP TUBE STAT 01/08/2025 8: 02 PM CDT EXTRA BLUE TOP TUBE STAT 01/08/2025 8 :02 PM CDT EXTRA TUBE STAT 01/08/2025 8:02 PM CDT CBC WITH PLATELETS AND DIFFERENTIAL (LIMITED OCCURRENCES) STAT 01/08/2025 8:01 PM CDT CBC WITH PLATELETS AND DIFFERENTIAL STAT 01/08/2025 8:01 PM CDT TROPONIN T, HIGH SENSITIVITY STAT 01/08/2025 8:01 PM CDT BASIC METABOLIC PANEL (LIMITED OCCURRENCES) STAT 01/08/2025 8:01 PM CDT EKG 12-LEAD, TRACING ONLY STAT 01/08/2025 7:51 PM CDT TROPONIN T, HIGH SENSITIVITY STAT 12/08/2024 9:02 AM CDT XR CHEST 2 VIEWS STAT 12/08/2024 8:38 AM CDT MRA NECK (CAROTIDS) W/O & W CONTRAST STAT 12/08/2024 8:26 AM CDT MRA BRAIN (POINT LAY [place]) W/O CONTRAST STAT 12/08/2024 8:26 AM CDT MR BRAIN W/O & W CONTRAST STAT 12/08/2024 8:26 AM CDT BLOOD GAS VENOUS STAT 12/08/2024 6:57 AM CDT CBC WITH PLATELETS AND DIFFERENTIAL (LIMITED OCCURRENCES) STAT 12/08/2024 6:24 AM CDT T4 FREE STAT 12/08/2024 6:24 AM CDT MAGNESIUM (LIMITED OCCURRENCES) STAT 12/08/2024 6:24 AM CDT TSH WITH FREE T4 REFLEX STAT 12/09/19 6:24 AM CDT D DIMER QUANTITATIVE STAT 12/08/2024 6:24 AM CDT HEPATIC FUNCTION PANEL (LIMITED OCCURRENCES) Add-On 12/08/2024 6:24 AM CDT EXTRA RED TOP TUBE STAT 12/08/2024 6: 24 AM CDT EXTRA BLUE TOP TUBE STAT 12/08/2024 6 :24 AM CDT CBC WITH PLATELETS AND DIFFERENTIAL STAT 12/08/2024 6:24 AM CDT EXTRA TUBE STAT 12/08/2024 6:24 AM CDT TROPONIN T, HIGH SENSITIVITY STAT 12/08/2024 6:24 AM CDT BASIC METABOLIC PANEL (LIMITED OCCURRENCES) STAT 12/08/2024 6:24 AM CDT EKG 12-LEAD, TRACING ONLY STAT 12/08/2024 6:13 AM CDT LIPID REFLEX TO DIRECT LDL PANEL Routine 02/20/2024 8:29 AM DRILLING MANAGER Hyperlipidemia LDL goal <70 from Last 3 Months or Most Recently Relevant to Health Maintenance Results * MR Brain w/o & w Contrast (01/30/2025 10:31 PM DRILLING MANAGER) Only the most recent of2 resultswithin the time period is included. Anatomical Region Laterality Modality Head, SUBRAD MR NEURO, UMP MR NEURO, RAD MR Magnetic Resonance 01/30/2025 10:3 1 PM DRILLING MANAGER Impressions 01/30/2025 11:10 PM DRILLING MANAGER IMPRESSION: 1. No acute intracranial abnormality. 2. Chronic right lentiform nucleus lacunar infarct. 3. 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 Narrative 01/30/2025 11:10 PM DRILLING MANAGER EXAM: MR BRAIN W/O and W CONTRAST LOCATION: [facility] DATE: 01/30/2025 INDICATION: Slurred speech, right facial [...] MR BRAIN W/O and W CONTRAST LOCATION: [facility] DATE: 01/30/2025 INDICATION: Slurred speech, right facial [...] left moore radiata infarct with Wallerian degeneration. Nourish DO IMG MRI ORDERABLES Final Result * EKG 12-lead, tracing only (01/30/2025 4:59 PM DRILLING MANAGER) Only the most recent of3 resultswithin the time period is included. Systolic Blood Pressure mmHg RADIOLOGY RESULTS Diastolic Blood Pressure mmHg RADIOLOGY RESULTS Ventricular Rate 70 BPM RAD IOLOGY RESULTS Atrial Rate 70 BPM RADIOLOG Y RESULTS MT Interval 144 ms RADIOLOG Y RESULTS QRS Duration 84 ms RADIOLO GY RESULTS QT 390 ms RADIOLOGY RESULTS QTc 421 ms RADIOLOGY RESULTS P Herscher 39 degrees RADIOLOGY RESULTS R AXIS 45 degrees RADIOLOGY RESULTS T Herscher 59 degrees RADIOLOGY RESULTS Interpretation ECG Sinus rhythm Normal ECG When compared with ECG of 08-Jan-2025 19:51, ST elevation now present in Lateral leads Confirmed by SEE ED PROVIDER NOTE FOR, ECG INTERPRETATION (4000), pictures editor PIYUSH SAAVEDRA ([id number]) on 01/31/2025 7:21:49 AM RADIOLOGY RESULTS 01/30/2025 4:59 PM DRILLING MANAGER 01/31/2025 7:21 AM DRILLING MANAGER Nourish DO ECG ORDERABLES Edited Result - Final RADIOLOGY RESULTS * Extra Red Top Tube (01/30/2025 4:56 PM DRILLING MANAGER) Only the most recent of3 resultswithin the time period is included. Hold Specimen JIC 01/30/2025 6:05 PM DRILLING MANAGER LABORATORY Blood BLOOD SPECIMEN / Unknown Venipuncture / Unknown 01/30/2025 4:56 PM DRILLING MANAGER 01/30/2025 5:01 PM DRILLING MANAGER Andrea Gamboa DO LAB - BLOOD ORDERABLES Final Res ult RH LABORATORY [facility] [address] Lab (1st floor, no room number) [place] [address], [facility] * CBC with platelets and differential (01/30/2025 4:56 PM DRILLING MANAGER) Only the most recent of3 resultswithin the time period is included. WBC Count 6.34 4.00 - 11.00 10e3/uL 01/30/2025 5:04 PM DRILLING MANAGER RH LABORATORY RBC Count 4.65 3.80 - 5.20 10e6/uL 01/30/2025 5:04 PM DRILLING MANAGER RH LABORATORY Hemoglobin 13.9 11.7 - 15.7 g/dL 01/30/2025 5:04 PM DRILLING MANAGER RH LABORATORY Hematocrit 40.8 35.0 - 47.0 % 01/30/2025 5:04 PM DRILLING MANAGER RH LABORATORY MCV 87.7 78.0 - 100.0 fL 01/30/2025 5:04 PM DRILLING MANAGER RH LABORATORY MCH 29.9 26.5 - 33.0 pg 01/30/2025 5:04 PM DRILLING MANAGER RH LABORATORY MCHC 34.1 31.5 - 36.5 g/dL 01/30/2025 5:04 PM DRILLING MANAGER RH LABORATORY RDW 13.1 10.0 - 15.0 % 01/30/2025 5:04 PM DRILLING MANAGER RH LABORATORY Platelet Count 225 150 - 450 10e3/uL 01/30/2025 5:04 PM DRILLING MANAGER RH LABORATORY % Neutrophils 60.0 % 01/30/2025 5:04 PM DRILLING MANAGER RH LABORATORY % Lymphocytes 29.3 % 01/30/2025 5:04 PM DRILLING MANAGER RH LABORATORY % Monocytes 7.9 % 01/30/2025 5:04 PM DRILLING MANAGER RH LABORATORY % Eosinophils 2.1 % 01/30/2025 5:04 PM DRILLING MANAGER RH LABORATORY % Basophils 0.5 % 01/30/2025 5:04 PM DRILLING MANAGER RH LABORATORY % Immature Granulocytes 0.2 % 01/30/2025 5:04 PM DRILLING MANAGER RH LABORATORY NRBCs per 100 WBC 0.0 <1.0 /100 025 5:04 PM DRILLING MANAGER RH LABORATORY Absolute Neutrophils 3.81 1.60 - 8.30 10e3/uL 01/30/2025 5:04 PM DRILLING MANAGER LABORATORY Absolute Lymphocytes 1.86 0.80 - 5.30 10e3/uL 01/30/2025 5:04 PM DRILLING MANAGER LABORATORY Absolute Monocytes 0.50 0.00 - 1.30 10e3/uL 01/30/2025 5:04 PM DRILLING MANAGER LABORATORY Absolute Eosinophils 0.13 0.00 - 0.70 10e3/uL 01/30/2025 5:04 PM DRILLING MANAGER LABORATORY Absolute Basophils 0.03 0.00 - 0.20 10e3/uL 01/30/2025 5:04 PM DRILLING MANAGER LABORATORY Absolute Immature Granulocytes <0.03 <=0.40 10e3/uL 01/30/2025 5:04 PM DRILLING MANAGER LABORATORY Absolute NRBCs <0.03 10e3/uL 01/30/2025 5:04 PM DRILLING MANAGER LABORATORY Blood BLOOD SPECIMEN / Unknown Venipuncture / Unknown 01/30/2025 4:56 PM DRILLING MANAGER 01/30/2025 5:01 PM DRILLING MANAGER us Andrea Gamboa DO LAB - BLOOD ORDERABLES Final Res ult LABORATORY [facility] [address] [facility] Lab (1st floor, no room number) [place] [address], [facility] * (ABNORMAL) Basic Metabolic Panel (Limited Occurrences) (01/30/2025 4:56 PM DRILLING MANAGER) Only the most recent of3 resultswithin the time period is included. Sodium 141 135 - 145 mmol/L 01/30/2025 5:57 PM DRILLING MANAGER LABORATORY Potassium 3.7 3.4 - 5.3 mmol/L 01/30/2025 5:57 PM DRILLING MANAGER LABORATORY Chloride 103 98 - 107 mmol/L 01/30/2025 5:57 PM DRILLING MANAGER LABORATORY Carbon Dioxide (CO2) 25 22 - 29 mmol/L 01/30/2025 5:57 PM DRILLING MANAGER LABORATORY Anion Gap 13 7 - 15 mmol/L 01/30/2025 5:57 PM DRILLING MANAGER LABORATORY Urea Nitrogen 16.4 8.0 - 23.0 mg/dL 01/30/2025 5:57 PM DRILLING MANAGER LABORATORY Creatinine 0.75 0.51 - 0.95 mg/dL 01/30/2025 5:57 PM DRILLING MANAGER RH LABORATORY GFR Estimate 83 >60 mL/min/1.7 3m2 01/30/2025 5:57 PM DRILLING MANAGER LABORATORY Comment:eGFR calculated usin 2020 CKD-EPI equation. Calcium 9.4 8.8 - 10.4 mg/dL 01/30/2025 5:57 PM DRILLING MANAGER LABORATORY Glucose 112(H) 70 - 99 mg/dL 01/30/2025 5:57 PM DRILLING MANAGER LABORATORY Blood BLOOD SPECIMEN / Unknown Venipuncture / Unknown 01/30/2025 4:56 PM DRILLING MANAGER 01/30/2025 5:01 PM DRILLING MANAGER us Andrea Gamboa DO LAB - BLOOD ORDERABLES Final Res ult LABORATORY [facility] [address] [facility] Lab (1st floor, no room number) [place] [address] * Troponin T, High Sensitivity (01/30/2025 4:56 PM DRILLING MANAGER) Only the most recent of5 resultswithin the time period is included. [facility] Troponin T, High Sensitivity <6 <=14 ng/L 01/30/2025 5:57 PM DRILLING MANAGER LABORATORY Comment: Either a High Sensitivity Troponin [...] Unknown Venipuncture / Unknown 01/30/2025 4:56 PM DRILLING MANAGER 01/30/2025 5:01 PM DRILLING MANAGER us Andrea Gamboa DO LAB - BLOOD ORDERABLES Final Res ult LABORATORY [facility] [address] Lab (1st floor, no room number) [place] [address], [facility] * UA with Microscopic reflex to Culture (01/30/2025 4:56 PM DRILLING MANAGER) Color Urine Straw Colorless, Straw, Light Yellow, Yellow 01/30/2025 5:08 PM DRILLING MANAGER LABORATORY Appearance Urine Clear Clear 01/31/20 5:08 PM DRILLING MANAGER LABORATORY Glucose Urine Negative Negative mg/dL 01/30/2025 5:08 PM DRILLING MANAGER LABORATORY Bilirubin Urine Negative Negative 5:08 PM DRILLING MANAGER LABORATORY Ketones Urine Negative Negative mg/dL 01/30/2025 5:08 PM DRILLING MANAGER LABORATORY Specific [place] Urine 1.010 1.003 - 1.035 01/30/2025 5:08 PM DRILLING MANAGER LABORATORY Blood Urine Negative Negative 01/30/2025 5:08 PM DRILLING MANAGER LABORATORY pH Urine 6.5 5.0 - 7.0 01/30/2025 5:08 PM DRILLING MANAGER LABORATORY Protein Albumin Urine Negative Negative mg/dL 01/30/2025 5:08 PM DRILLING MANAGER LABORATORY Urobilinogen Urine Normal Normal mg/dL 01/30/2025 5:08 PM DRILLING MANAGER LABORATORY Nitrite Urine Negative Negative 01/30/2025 5:08 PM DRILLING MANAGER LABORATORY Leukocyte Esterase Urine Negative Negative 01/30/2025 5:08 PM DRILLING MANAGER LABORATORY RBC Urine <1 <=2 /HPF 01/30/2025 5:08 PM DRILLING MANAGER LABORATORY WBC Urine 1 <=5 /HPF 01/30/2025 5:08 PM DRILLING MANAGER LABORATORY Squamous Epithelials Urine <1 <=1 /HPF 01/30/2025 5:08 PM DRILLING MANAGER LABORATORY Urine URINE SPECIMEN OBTAINED BY CLEAN CATCH PROCEDURE / Unknown Non-blood Collection / Unknown 01/30/2025 4:56 PM DRILLING MANAGER 01/30/2025 5:01 PM DRILLING MANAGER Narrative LABORATORY - 01/30/2025 5:08 PM DRILLING MANAGER Urine Culture not indicated us [place] Yeh DO LAB - URINE ORDERABLES Final Res ult [facility] [address] Lab (1st floor, no room number) [place] [phone] * INR (01/30/2025 4:56 PM DRILLING MANAGER) INR 0.97 0.85 - 1.15 01/30/2025 5:21 PM DRILLING MANAGER RH LABORATORY PT 12.8 11.8 - 14.8 Seconds 01/30/2025 5:21 PM DRILLING MANAGER [facility] LABORATORY Blood BLOOD SPECIMEN / Unknown Venipuncture / Unknown 01/30/2025 4:56 PM DRILLING MANAGER 01/30/2025 5:01 PM DRILLING MANAGER us Andrea Yeh DO LAB - BLOOD ORDERABLES Final Res ult Performing Organization Address City/[facility]/ZIP Co de Phone Number [facility] Lab [address] Lab (1st floor, no room number) [place] [phone] * Partial thromboplastin time (01/30/2025 4:56 PM DRILLING MANAGER) aPTT 33 22 - 38 Seconds 01/30/2025 5:21 PM DRILLING MANAGER [facility] LABORATORY Blood BLOOD SPECIMEN / Unknown Venipuncture / Unknown 01/30/2025 4:56 PM DRILLING MANAGER 01/30/2025 5:01 PM DRILLING MANAGER us Andrea Yeh DO LAB - BLOOD ORDERABLES Final Res ult [facility] [address] Lab (1st floor, no room number) [place] [phone] * CTA Head Neck with Contrast (01/30/2025 4:52 PM DRILLING MANAGER) Anatomical Region Laterality Modality Head, SUBRAD CT NEURO, SUBRA D CT NEURO, UMP CT NEURO, RAD CT Computed Tomography 01/30/2025 4:52 PM DRILLING MANAGER Impressions 01/30/2025 5:28 PM DRILLING MANAGER IMPRESSION: HEAD CTA: 1. No new intracranial [...] Dr Alvaro Neves at 5:24 PM 01/30/2025 DRILLING MANAGER/CDT. Narrative 01/30/2025 5:28 PM DRILLING MANAGER EXAM: CTA HEAD NECK W CONTRAST LOCATION: [facility] DATE: 01/30/2025 INDICATION: Code Stroke, evaluate for LVO. Right facial numbness. Slurred speech. Headache. COMPARISON: CTA head and neck 01/27/2024, MRA head and neck 11/30/2024 CONTRAST: 71mL [id number] TECHNIQUE: Head and neck CT angiogram with [...] CTA head and neck 01/27/2024. Right origin CALL CENTER COORDINATOR NECK CTA: Right mid to distal cervical [...] EXAM: CTA HEAD NECK W CONTRAST LOCATION: [facility] DATE: 01/30/2025 INDICATION: Code Stroke, evaluate for LVO. Right facial numbness. Slurredspeech. Headache. COMPARISON: CTA head and neck 01/27/2024, MRA head and neck 11/30/2024 CONTRAST: 71mL [id number] TECHNIQUE: Head and neck CT angiogram with [...] priorCTA head and neck 01/27/2024. Right origin CALL CENTER COORDINATOR NECK CTA: Right mid to distal cervical [...] CT Head w/o Contrast (01/30/2025 4:52 PM DRILLING MANAGER) Anatomical Region Laterality Modality Head, SUBRAD CT NEURO, SUBRA D CT NEURO, UMP CT NEURO, RAD CT Computed Tomography 01/30/2025 4:52 PM DRILLING MANAGER Impressions 01/30/2025 5:28 PM DRILLING MANAGER IMPRESSION: 1. No acute cranial hemorrhage identified. 2. No evidence CT acute infarct. Aspect score 10. 3. Chronic intracranial changes described above. Dr Andrea Gamboa was notified by Dr Alvaro Neves at 5:07 PM 01/30/2025 DRILLING MANAGER/CDT. Narrative 01/30/2025 5:28 PM DRILLING MANAGER EXAM: CT HEAD W/O CONTRAST LOCATION: [facility] DATE: 01/30/2025 INDICATION: Code Stroke, rule out [...] 01/30/2025 EXAM: CT HEAD W/O CONTRAST LOCATION: [facility] DATE: 01/30/2025 INDICATION: Code Stroke, rule out [...] (ABNORMAL) Glucose by meter (01/30/2025 4:32 PM DRILLING MANAGER) [facility] GLUCOSE BY METER POCT 112(H) 70 - 99 mg/dL 01/30/2025 4:39 PM DRILLING MANAGER LABORATORY POC Comment:Dr/RN Notified Blood, Capillary BLOOD SPECIMEN / Unknown 01/30/2025 4:32 PM DRILLING MANAGER 01/30/2025 4:39 PM DRILLING MANAGER Provider Unknown LAB - BEAKER POCT Final Result LABORATORY POC [facility] [address] Lab (1st floor, no room number) [place] [address], [facility] * XR Chest 2 Views (01/08/2025 9:08 PM CDT) Only the most recent of2 resultswithin the time period is included. Anatomical Region Laterality Modality Chest Digital Radiogra phy 01/08/2025 9:08 PM CDT Impressions 01/08/2025 9:39 PM CDT IMPRESSION: Heart size and pulmonary vascularity within normal limits. No focal lung infiltrates. Osseous structures grossly intact. Visualized upper abdomen unremarkable. Narrative 01/08/2025 9:39 PM CDT EXAM: XR CHEST 2 VIEWS LOCATION: [facility] DATE: 01/08/2025 INDICATION: Chest pressure COMPARISON: 12/08/2024 Procedure Note Bharathi Neville MD - 01/08/2025 EXAM: XR CHEST 2 VIEWS LOCATION: [facility] DATE: 01/08/2025 INDICATION: Chest pressure COMPARISON: 12/08/2024 IMPRESSION: Heart size and pulmonary vascularity within normal limits.No focal lung infiltrates. Osseous structures grossly intact. Visualizedupper abdomen unremarkable. Kira Ratliff PA-C IMG DIAGNOSTIC IMAGING ORDERAB LES Final Result * Extra Blue Top Tube (01/08/2025 8:02 PM CDT) Only the most recent of2 resultswithin the time period is included. Pathologist [facility] Hold Specimen JIC 01/08/2025 9:16 PM CDT [facility]ATORY Blood STRUCTURE OF RIGHT UPPER LIMB / Unknown Venipuncture / Unknown 01/08/2025 8:02 PM CDT 01/08/2025 8:06 PM CDT Kira Ratliff PA-C LAB - BLOOD ORDERABLES Final R esult [facility] [address] Lab (1st floor, no room number) [place] [address], [facility] * D dimer quantitative (01/08/2025 8:02 PM CDT) Only the most recent of2 resultswithin the time period is included. D-Dimer Quantitative 0.36 0.00 - 0.50 ug/mL FEU 01/08/2025 8:26 PM CDT [facility] LABORATORY Blood STRUCTURE OF RIGHT UPPER LIMB / Unknown Venipuncture / Unknown 01/08/2025 8:02 PM CDT 01/08/2025 8:06 PM CDT Narrative LABORATORY - 01/08/2025 [...] out pulmonary embolism: The ADJUST-PE Study. TEODORO 2014;311:[id number].; HJ Godwin et al. Diagnostic accuracy of conventional or age adjusted D-dimer cutoff values in older patients with suspected venous thromboembolism. Systemic review and meta-analysis. BMJ 2013:346:[id number]. us Kira Ratliff PA-C LAB - BLOOD ORDERABLES Final R esult [facility] [address] [facility] Lab (1st floor, no room number) [place] [address], [facility] * MRA Angiogram Neck w/o & w Contrast (12/08/2024 8:26 AM CDT) Anatomical Region Laterality Modality Neck, SUBRAD MR NEURO, UMP MR NEURO, RAD MR Magnetic Resonance 12/08/2024 8:26 AM CDT Impressions 12/08/2024 9:03 AM CDT IMPRESSION: HEAD MRI: 1. No MRI evidence for an acute intracranial process. 2. 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 3. 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 HEAD MRA: 1. 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 2. Unchanged multifocal severe stenosis/near occlusion of the proximal right M2 MCA branches. 3. Additional multifocal arterial stenoses are not significantly changed and likely represent atherosclerosis.. 4. 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 NECK MRA: 1. Unchanged diminutive left vertebral artery. 2. Mild irregularity of the mid cervical ICAs is unchanged and may represent fibromuscular dysplasia. Narrative 12/08/2024 9:03 AM CDT EXAM: MR BRAIN W/O and W CONTRAST, MRA NECK (CAROTIDS) W/O and W CONTRAST, MRA BRAIN (POINT LAY [place]) W/O CONTRAST LOCATION: [facility] DATE: 12/08/2024 INDICATION: headache, ataxia, vertigo COMPARISON: CT angiogram dated 01/27/2024. Brain MRI dated 01/27/2024. Brain MRI and head and neck MR angiograms dated 09/27/2023. CONTRAST: 10 mL Gadavist intravenous TECHNIQUE: 1) Routine multiplanar multisequence head MRI without and with intravenous contrast. 2) 3D [id number]-cv-[id number] head MRA without intravenous contrast. 3) Neck MRA without and with IV contrast. Stenosis measurements made according to NASCET criteria unless otherwise specified. FINDINGS: HEAD MRI: INTRACRANIAL CONTENTS: No acute or subacute infarct. 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 No mass, acute hemorrhage, or extra-axial fluid collections. Patchy nonspecific T2/FLAIR hyperintensities within the cerebral white matter most consistent with mild to moderate chronic microvascular ischemic change. Mild generalized cerebral atrophy. No hydrocephalus. Normal position of the cerebellar tonsils. No pathologic contrast enhancement. SELLA: No abnormality accounting for technique. OSSEOUS STRUCTURES/SOFT TISSUES: Normal marrow signal. The major intracranial vascular flow voids are maintained. ORBITS: No abnormality accounting for technique. SINUSES/MASTOIDS: No paranasal sinus mucosal disease. No middle ear or mastoid effusion. HEAD MRA: ANTERIOR CIRCULATION: Severe stenosis/near occlusion of the left A1 DARIUSZ appears similar to 01/27/2024 CT angiogram. Unchanged irregularity and moderate stenosis of the right M1 MCA. Unchanged multifocal severe stenosis/near occlusion of the proximal right M2 MCA branches. Unchanged mild to moderate stenosis of the left M1 MCA and severe stenosis of the proximal anterior M2 MCA branch. Multiple additional mild to moderate arterial stenoses likely represent atherosclerosis. No aneurysm or high flow vascular malformation. -type posterior cerebral arteries bilaterally. POSTERIOR CIRCULATION: No flow related signal within the left vertebral artery, unchanged. Multifocal moderate arterial stenoses of the bilateral posterior cerebral arteries likely represent atherosclerosis. No significant stenosis or occlusion of the right vertebral artery or basilar artery. No aneurysm or high flow vascular malformation. Dominant right and vertebral artery supplying a normal basilar artery. NECK MRA: RIGHT CAROTID: No measurable stenosis or dissection. Mild irregularity of the mid cervical ICA may represent fibromuscular dysplasia. LEFT CAROTID: No measurable stenosis or dissection. Mild irregularity of the mid cervical ICA may represent fibromuscular dysplasia. VERTEBRAL ARTERIES: Unchanged hypoplastic left vertebral artery. No significant stenosis of the right vertebral artery. AORTIC ARCH: Classic aortic arch anatomy with no significant stenosis at the origin of the great vessels. Procedure Note Oskar Suarez MD - 12/08/2024 EXAM: MR BRAIN W/O and W CONTRAST, MRA NECK (CAROTIDS) W/O and W CONTRAST,MRA BRAIN (POINT LAY [place]) W/O CONTRAST LOCATION: [facility] DATE: 12/08/2024 INDICATION: headache, ataxia, vertigo COMPARISON: CT angiogram dated 01/27/2024. Brain MRI dated 01/27/2024.Brain MRI and head and neck MR angiograms dated 09/27/2023. CONTRAST: 10 mL Gadavist intravenous TECHNIQUE: 1) Routine multiplanar multisequence head MRI without and with intravenouscontrast. 2) 3D ajuq-az-[id number] head MRA without intravenous contrast. 3) Neck MRA without and with IV contrast. Stenosis measurements madeaccording to NASCET criteria unless otherwise specified. FINDINGS: HEAD MRI: INTRACRANIAL CONTENTS: No acute or subacute infarct. Small chronicinfarctions in the right basal ganglia and left moore radiata. No mass,acute hemorrhage, or extra- axial fluid collections. Patchy nonspecificT2/FLAIR hyperintensities within the cerebral white matter most consistent with mild to moderate chronicmicrovascular ischemic change. Mild generalized cerebral atrophy. Nohydrocephalus. Normal position of the cerebellar tonsils. No pathologiccontrast enhancement. SELLA: No abnormality accounting for technique. OSSEOUS STRUCTURES/SOFT TISSUES: Normal marrow signal. The majorintracranial vascular flow voids are maintained. ORBITS: No abnormality accounting for technique. SINUSES/MASTOIDS: No paranasal sinus mucosal disease. No middle ear ormastoid effusion. HEAD MRA: ANTERIOR CIRCULATION: Severe stenosis/near occlusion of the left A1 ACAappears similar to 01/27/2024 CT angiogram. Unchanged irregularity andmoderate stenosis of the right M1 MCA. Unchanged multifocal severestenosis/near occlusion of the proximal right M2 MCA branches. Unchanged mild to moderate stenosis of the left M1MCA and severe stenosis of the proximal anterior M2 MCA branch. Multipleadditional mild to moderate arterial stenoses likely representatherosclerosis. No aneurysm or high flow vascular malformation. -type posterior cerebral arteries bilaterally. POSTERIOR CIRCULATION: No flow related signal within the left vertebralartery, unchanged. Multifocal moderate arterial stenoses of the bilateralposterior cerebral arteries likely represent atherosclerosis. Nosignificant stenosis or occlusion of the right vertebral artery or basilar artery. No aneurysm or high flowvascular malformation. Dominant right and vertebral artery supplying anormal basilar artery. NECK MRA: RIGHT CAROTID: No measurable stenosis or dissection. Mild irregularity ofthe mid cervical ICA may represent fibromuscular dysplasia. LEFT CAROTID: No measurable stenosis or dissection. Mild irregularity ofthe mid cervical ICA may represent fibromuscular dysplasia. VERTEBRAL ARTERIES: Unchanged hypoplastic left vertebral artery. Nosignificant stenosis of the right vertebral artery. AORTIC ARCH: Classic aortic arch anatomy with no significant stenosis atthe origin of the great vessels. IMPRESSION: HEAD MRI: 1. No MRI evidence for an acute intracranial process. 2. Small chronic infarctions in the right basal ganglia and left coronaradiata. 3. 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 HEAD MRA: 1. Severe stenosis/near occlusion of the left A1 DARIUSZ appears similar to01/27/2024. 2. Unchanged multifocal severe stenosis/near occlusion of the proximalright M2 MCA branches. 3. Additional multifocal arterial stenoses are not significantly changedand likely represent atherosclerosis.. 4. 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 NECK MRA: 1. Unchanged diminutive left vertebral artery. 2. Mild irregularity of the mid cervical ICAs is unchanged and mayrepresent fibromuscular dysplasia. Arabella Suarez MD [facility] MRI ORDERABLES Final Result * MRA Angiogram Head w/o Contrast (12/08/2024 8:26 AM CDT) Anatomical Region Laterality Modality Head, SUBRAD MR NEURO, UMP MR NEURO, RAD MR Magnetic Resonance 12/08/2024 8:26 AM CDT Impressions 12/08/2024 9:03 AM CDT IMPRESSION: HEAD MRI: 1. No MRI evidence for an acute intracranial process. 2. 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 3. 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 HEAD MRA: 1. 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 2. Unchanged multifocal severe stenosis/near occlusion of the proximal right M2 MCA branches. 3. Additional multifocal arterial stenoses are not significantly changed and likely represent atherosclerosis.. 4. 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 NECK MRA: 1. Unchanged diminutive left vertebral artery. 2. Mild irregularity of the mid cervical ICAs is unchanged and may represent fibromuscular dysplasia. Narrative 12/08/2024 9:03 AM CDT EXAM: MR BRAIN W/O and W CONTRAST, MRA NECK (CAROTIDS) W/O and W CONTRAST, MRA BRAIN (POINT LAY [place]) W/O CONTRAST LOCATION: [facility] DATE: 12/08/2024 INDICATION: headache, ataxia, vertigo COMPARISON: CT angiogram dated 01/27/2024. Brain MRI dated 01/27/2024. Brain MRI and head and neck MR angiograms dated 09/27/2023. CONTRAST: 10 mL Gadavist intravenous TECHNIQUE: 1) Routine multiplanar multisequence head MRI without and with intravenous contrast. 2) 3D hfyc-of-dtchzy head MRA without intravenous contrast. 3) Neck MRA without and with IV contrast. Stenosis measurements made according to NASCET criteria unless otherwise specified. FINDINGS: HEAD MRI: INTRACRANIAL CONTENTS: No acute or subacute infarct. 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 No mass, acute hemorrhage, or extra-axial fluid collections. Patchy nonspecific T2/FLAIR hyperintensities within the cerebral white matter most consistent with mild to moderate chronic microvascular ischemic change. Mild generalized cerebral atrophy. No hydrocephalus. Normal position of the cerebellar tonsils. No pathologic contrast enhancement. SELLA: No abnormality accounting for technique. OSSEOUS STRUCTURES/SOFT TISSUES: Normal marrow signal. The major intracranial vascular flow voids are maintained. ORBITS: No abnormality accounting for technique. SINUSES/MASTOIDS: No paranasal sinus mucosal disease. No middle ear or mastoid effusion. HEAD MRA: ANTERIOR CIRCULATION: Severe stenosis/near occlusion of the left A1 DARIUSZ appears similar to 01/27/2024 CT angiogram. Unchanged irregularity and moderate stenosis of the right M1 MCA. Unchanged multifocal severe stenosis/near occlusion of the proximal right M2 MCA branches. Unchanged mild to moderate stenosis of the left M1 MCA and severe stenosis of the proximal anterior M2 MCA branch. Multiple additional mild to moderate arterial stenoses likely represent atherosclerosis. No aneurysm or high flow vascular malformation. -type posterior cerebral arteries bilaterally. POSTERIOR CIRCULATION: No flow related signal within the left vertebral artery, unchanged. Multifocal moderate arterial stenoses of the bilateral posterior cerebral arteries likely represent atherosclerosis. No significant stenosis or occlusion of the right vertebral artery or basilar artery. No aneurysm or high flow vascular malformation. Dominant right and vertebral artery supplying a normal basilar artery. NECK MRA: RIGHT CAROTID: No measurable stenosis or dissection. Mild irregularity of the mid cervical ICA may represent fibromuscular dysplasia. LEFT CAROTID: No measurable stenosis or dissection. Mild irregularity of the mid cervical ICA may represent fibromuscular dysplasia. VERTEBRAL ARTERIES: Unchanged hypoplastic left vertebral artery. No significant stenosis of the right vertebral artery. AORTIC ARCH: Classic aortic arch anatomy with no significant stenosis at the origin of the great vessels. Procedure Note Oskar Suarez MD - 12/08/2024 EXAM: MR BRAIN W/O and W CONTRAST, MRA NECK (CAROTIDS) W/O and W CONTRAST,MRA BRAIN (POINT LAY [place]) W/O CONTRAST LOCATION: [facility] DATE: 12/08/2024 INDICATION: headache, ataxia, vertigo COMPARISON: CT angiogram dated 01/27/2024. Brain MRI dated 01/27/2024.Brain MRI and head and neck MR angiograms dated 09/27/2023. CONTRAST: 10 mL Gadavist intravenous TECHNIQUE: 1) Routine multiplanar multisequence head MRI without and with intravenouscontrast. 2) 3D soyx-zv-xpjyud head MRA without intravenous contrast. 3) Neck MRA without and with IV contrast. Stenosis measurements madeaccording to NASCET criteria unless otherwise specified. FINDINGS: HEAD MRI: INTRACRANIAL CONTENTS: No acute or subacute infarct. Small chronicinfarctions in the right basal ganglia and left moore radiata. No mass,acute hemorrhage, or extra- axial fluid collections. Patchy nonspecificT2/FLAIR hyperintensities within the cerebral white matter most consistent with mild to moderate chronicmicrovascular ischemic change. Mild generalized cerebral atrophy. Nohydrocephalus. Normal position of the cerebellar tonsils. No pathologiccontrast enhancement. SELLA: No abnormality accounting for technique. OSSEOUS STRUCTURES/SOFT TISSUES: Normal marrow signal. The majorintracranial vascular flow voids are maintained. ORBITS: No abnormality accounting for technique. SINUSES/MASTOIDS: No paranasal sinus mucosal disease. No middle ear ormastoid effusion. HEAD MRA: ANTERIOR CIRCULATION: Severe stenosis/near occlusion of the left A1 ACAappears similar to 01/27/2024 CT angiogram. Unchanged irregularity andmoderate stenosis of the right M1 MCA. Unchanged multifocal severestenosis/near occlusion of the proximal right M2 MCA branches. Unchanged mild to moderate stenosis of the left M1MCA and severe stenosis of the proximal anterior M2 MCA branch. Multipleadditional mild to moderate arterial stenoses likely representatherosclerosis. No aneurysm or high flow vascular malformation. -type posterior cerebral arteries bilaterally. POSTERIOR CIRCULATION: No flow related signal within the left vertebralartery, unchanged. Multifocal moderate arterial stenoses of the bilateralposterior cerebral arteries likely represent atherosclerosis. Nosignificant stenosis or occlusion of the right vertebral artery or basilar artery. No aneurysm or high flowvascular malformation. Dominant right and vertebral artery supplying anormal basilar artery. NECK MRA: RIGHT CAROTID: No measurable stenosis or dissection. Mild irregularity ofthe mid cervical ICA may represent fibromuscular dysplasia. LEFT CAROTID: No measurable stenosis or dissection. Mild irregularity ofthe mid cervical ICA may represent fibromuscular dysplasia. VERTEBRAL ARTERIES: Unchanged hypoplastic left vertebral artery. Nosignificant stenosis of the right vertebral artery. AORTIC ARCH: Classic aortic arch anatomy with no significant stenosis atthe origin of the great vessels. IMPRESSION: HEAD MRI: 1. No MRI evidence for an acute intracranial process. 2. Small chronic infarctions in the right basal ganglia and left coronaradiata. 3. 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 HEAD MRA: 1. Severe stenosis/near occlusion of the left A1 DARIUSZ appears similar to01/27/2024. 2. Unchanged multifocal severe stenosis/near occlusion of the proximalright M2 MCA branches. 3. Additional multifocal arterial stenoses are not significantly changedand likely represent atherosclerosis.. 4. 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 NECK MRA: 1. Unchanged diminutive left vertebral artery. 2. Mild irregularity of the mid cervical ICAs is unchanged and mayrepresent fibromuscular dysplasia. Arabella Suarez MD [facility] MRI ORDERABLES Final Result * (ABNORMAL) Blood gas venous (12/08/2024 6:57 AM CDT) pH Venous 7.37 7.32 - 7.43 12/08/2024 7:04 AM CDT [facility] pCO2 Venous 46 40 - 50 mm Hg 12/08/2024 7:04 AM CDT [facility] pO2 Venous 50(H) 25 - 47 mm Hg 12/08/2024 7:04 AM CDT [facility] Bicarbonate Venous 27 21 - 28 mmol/L 12/08/2024 7:04 AM CDT [facility] Base Excess/Deficit Venous 0.7 -3.0 - 3.0 mmol/L 12/08/2024 7:04 AM CDT [facility] FIO2 2 TAWANDA 12/08/2024 7:04 AM CDT [facility] Comment:2L NC Oxyhemoglobin Venous 82(H) 70 - 75 % 12/08/2024 7:04 AM CDT [facility] O2 Sat, Venous 83.5(H) 70.0 - 75.0 % 12/08/2024 7:04 AM CDT [facility] Blood, venous STRUCTURE OF LEFT UPPER LIMB / Unknown Venipuncture / Unknown 12/08/2024 6:57 AM CDT 12/08/2024 7:02 AM CDT Narrative [facility] - 12/08/2024 7:04 AM CDT In healthy individuals, oxyhemoglobin (O2Hb) and oxygen saturation (SO2) are approximately equal. In the presence of dyshemoglobins, oxyhemoglobin can be considerably lower than oxygen saturation. Arabella Suarez MD LAB - BLOOD ORDERABLES F inal Result Performing Organization Address City/[facility]/ZIP Co de Phone Number LABORATORY [facility] [address] Lab (1st floor, no room number) [place] [address] * Hepatic Function Panel (Limited Occurrences) (12/08/2024 6:24 AM CDT) Protein Total 7.2 6.4 - 8.3 g/dL 12/08/2024 7:35 AM CDT [facility] Albumin 4.4 3.5 - 5.2 g/dL 12/08/2024 7:35 AM CDT [facility] Bilirubin Total 0.4 <=1.2 mg/dL 12/08/2024 7:35 AM CDT [facility] Alkaline Phosphatase 76 40 - 150 U/L 12/08/2024 7:35 AM CDT [facility] AST 25 0 - 45 U/L 12/08/2024 7:35 AM CDT [facility] ALT 20 0 - 50 U/L 12/08/2024 7:35 AM CDT [facility] Bilirubin Direct 0.11 0.00 - 0.30 mg/dL 12/08/2024 7:35 AM CDT [facility] Comment:As of 24, refer ence ranges and trending lines may vary depending on the testing location. Blood BLOOD SPECIMEN / Unknown Venipuncture / Unknown 12/08/2024 6:24 AM CDT 12/08/2024 6:29 AM CDT Arabella Suarez MD LAB - BLOOD ORDERABLES F inal Result LABORATORY [facility] [address] Lab (1st floor, no room number) [place] [address] * Magnesium (Limited Occurrences) (12/08/2024 6:24 AM CDT) Magnesium 1.9 1.7 - 2.3 mg/dL 12/08/2024 7:35 AM CDT [facility] Blood BLOOD SPECIMEN / Unknown Venipuncture / Unknown 12/08/2024 6:24 AM CDT 12/08/2024 6:29 AM CDT Arabella Suarez MD LAB - BLOOD ORDERABLES F inal Result [facility] [address] Lab (1st floor, no room number) [place] [phone] [place] [address] * (ABNORMAL) TSH with free T4 reflex (12/08/2024 6:24 AM CDT) TSH 6.47(H) 0.30 - 4.20 uIU/mL 12/08/2024 7:39 AM CDT LABORATORY Blood BLOOD SPECIMEN / Unknown Venipuncture / Unknown 12/08/2024 6:24 AM CDT 12/08/2024 6:29 AM CDT Arabella Suarez MD LAB - BLOOD ORDERABLES F inal Result Performing Organization Address [facility]/ZIP Co de Phone Number [facility] [address] Lab (1st floor, no room number) [place] [phone] [place] [address] * T4 free (12/08/2024 6:24 AM CDT) Free T4 1.19 0.90 - 1.70 ng/dL 12/08/2024 8:37 AM CDT LABORATORY Blood BLOOD SPECIMEN / Unknown Venipuncture / Unknown 12/08/2024 6:24 AM CDT 12/08/2024 6:29 AM CDT Arabella Suarez MD LAB - BLOOD ORDERABLES F inal Result [facility] [address] Lab (1st floor, no room number) [place] [phone] * (ABNORMAL) Lipid panel reflex to direct LDL Fasting (02/20/2024 8:29 AM DRILLING MANAGER) Cholesterol 237(H) <200 mg/dL 02/20/2024 4:11 PM DRILLING MANAGER [facility] Triglycerides 208(H) <150 mg/dL 02/20/2024 4:11 PM DRILLING MANAGER [facility] Direct Measure HDL 47(L) >=50 mg/dL 02/20/2024 4:11 PM DRILLING MANAGER [facility] LDL Cholesterol Calculated 148(H) <100 mg/dL 02/20/2024 4:11 PM DRILLING MANAGER [facility] Non HDL Cholesterol 190(H) <130 mg/dL 02/20/2024 4:11 PM DRILLING MANAGER [facility] Patient Fasting > 8hrs? Yes 02/20/2024 4:11 PM DRILLING MANAGER [facility] Blood BLOOD SPECIMEN / Unknown Venipuncture / Unknown 02/20/2024 8:29 AM DRILLING MANAGER 02/20/2024 8:29 AM DRILLING MANAGER Narrative [facility] - 02/20/2024 4:11 PM DRILLING MANAGER Cholesterol Desirable: < 200 mg/dL Borderline High: [...] BLOOD ORDERABL ES Final Result [facility] [address] [facility], [address] [place] [address], [facility] from Last 3 Months or Most Recently Relevant to Health Maintenance Insurance MEDICARE [facility] BLUE MEDICARE [facility] BL[facility] Advance Directives For more information, please contact: [phone] * Full Code (Latest Code Status on [...] patie nt/ legal decision maker Care Teams Auto [employer] Porter Relationship Specialty Start Date End Date Kyra Perera [address] [place] [address] PCP - General Physician [employer] Applier 03/31/22 Angel Hollins MD [address] [place] [address] Neurology 07/20/23 Petra Dorado PA [address] [id number] Physician [employer]lier Physical Medicine and Rehabilitation 07/20/23 Angel Hollins MD [address] [place] [address] [id number] Assigned Neuroscience Provider 08/03/23 Yves Ballard MD [address] [place] [address] Assigned Heart and Vascular Provider 12/04/23
[2025-02-09 19:01] VITALS: BP 191/93; PULSE 89; RESP 24; TEMP 36.6; O2SAT 96; BMI 25.1
--- OUTSIDE RECORDS SUMMARY | 2025-02-09 20:02 | XMS_ITS | Clinical Summary ---
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 120869007 (SNOMED CT) 09/19 Active 09/19 Fredi Worthy MD Neuropathic pain Infarction of basal ganglia Lt 678950478 (SNOMED CT) 09/19 Active 09/19 Fredi Worthy MD Infarction of basal ganglia Vertigo 627926747 (SNOMED CT) 04/19 Active 2 Fredi Worthy MD Vertigo Sleep apnea 25799172 (SNOMED CT) 09/24 Resolved 09/24 Fredi Worthy MD Sleep apnea New daily persistent headache [id number] 105 (SNOMED CT) 03/29 Active 03/29 Fredi Worthy MD New daily persistent headache Hypertension, uncontrolled 84695743 (SNOMED CT) 03/29 Active 03/29 Fredi Worthy MD Hypertensive disorder Cardiac arrhythmia 95529443 (SNOMED CT) 09/24 Active 09/24 Armando Granados MD Conduction disorder of the heart Sleep apnea 49031978 (SNOMED CT) 09/24 Removed 09/24 Armando Granados MD Sleep apnea Intracranial vascular stenosis 20698472 (SNOMED CT) 09/24 Active 09/24 Armando Granados MD Cerebral artery occlusion Medications Medication Instructions Start Date Stop Date Generic Name NDC Provider METOPROLOL TARTRATE 25 MG TABS 1/2 tab twice a day metoprolol tartrate 81881249293 Shawna Olverail PA-C ASPIRIN 81 MG TBEC aspirin 20594507492 Shawna Olverail PA-C VITAMIN D3 50 MCG (1999) TABS cholecalciferol (vitamin d3) 65910962036 Shawna Bob PA-C FUROSEMIDE 20 MG TABS 1 tab twice a week furosemide 11900164757 Shawna Olverail PA-C GABAPENTIN 100 MG CAPS 1 capsule by mouth as directed : 1 cap or 100 mg per night and may increase by 100 mg every 5 night as needed until pain controlled or until 600 mg/night 10/01 gabapentin 49087200202 Shawna ANTHONY-C Aspirin once a day as needed 10/01 Aspirin Shawna Olverail PA-C ONDANSETRON 4 MG TBDP every six hours as needed 10/01 ondansetron 37789983842 Shawna ANTHONY-C EZETIMIBE 10 MG TABS 10/01 ezetimibe 74929801508 Shawna Olverail PA-C ALPRAZOLAM 0.25 MG TABS 1/2 tab q am and qhs as needed alprazolam 71604563480 Shawna Olverail PA-C TELMISARTAN 20 MG TABS TAKE ONE TABLET BY MOUTH (20MG) TWICE A DAY PT REQUESTING THIS 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 In addition take 200 mg per night and may increase by 100 mg per night as needed until pain controlled or until 600 mg/night 04/03 gabapentin 30332273461 Fredi Worthy MD GABAPENTIN 100 MG CAPS 1 capsule by mouth as directed : 1 cap or 100 mg per night and may increase by 100 mg every 5 night as needed until pain controlled or until 600 mg/night 10/01 gabapentin 10786338306 Fredi Worthy MD EZETIMIBE 10 MG TABS 10/01 ezetimibe 49112201669 Fredi Worthy MD GABAPENTIN 100 MG CAPS 1 capsule by mouth as directed : 1 to 3 caps 2 times/day during the day time as needed for pain. In addition take 200 mg per night and may increase by 100 mg per night as needed until pain controlled or until 600 mg/night 09/20 gabapentin 52504390016 Fredi Worthy MD AMLODIPINE BESYLATE 2.5 MG TABS once a day 09/19 amlodipine 75246879720 Fredi Worthy MD DIAZEPAM 5 MG TABS three times a day as needed 09/19 diazepam 75360492413 Fredi Worthy MD EPLERENONE 25 MG TABS once a day 09/19 eplerenone 97103132940 Fredi Worthy MD VITAMIN D 50 MCG (1999 [place]) TABS once a day 09/19 cholecalciferol (vitamin d3) 79241115229 Fredi Worthy MD ONDANSETRON 4 MG TBDP every six hours as needed 10/01 ondansetron 09740578866 Fredi Worthy MD FLUTICASONE PROPIONATE 50 MCG/ACT SUSP twice a day as needed 09/19 fluticasone propionate 27871952237 Fredi Worthy MD MECLIZINE HCL 12.5 MG TABS every eight hours as needed 09/19 meclizine 71875342498 Fredi Worthy MD ALPRAZOLAM 0.25 MG TABS Bedtime 10/01 alprazolam 04853880867 Fredi Worthy MD DILTIAZEM HCL 30 MG TABS twice a day 09/19 diltiazem hcl 84543964245 Fredi Worthy MD Aspirin once a day as needed 10/01 Aspirin Fredi Worthy MD COENZYME Q10 10 MG CAPS Discontinued 09/19 coenzyme q10 96844153715 Fredi Worthy MD NITROGLYCERIN 0.4 MG SUBL 5 mg as needed nitroglycerin 74716959273 Fredi Worthy MD FUROSEMIDE 20 MG TABS three times a day 09/19 furosemide 74972977626 Fredi Worthy MD METOPROLOL TARTRATE 25 MG TABS 10/02 metoprolol tartrate 54324128987 Fredi Worthy MD TELMISARTAN 20 MG TABS TAKE ONE TABLET BY MOUTH (20MG) TWICE A DAY PT REQUESTING THIS FREEZER TUNNEL OPERATOR FOR THIS 10/01 telmisartan 25079231779 Fredi Worthy MD ONDANSETRON 4 MG TBDP Every 6 Hours as needed 11/24 Ondansetron Hcl 13557343989 System Maintenance NITROGLYCERIN 0.4 MG SUBL Every 5 Minutes X 3 as needed 09/19 Nitroglycerin 67918376019 System Maintenance MECLIZINE HCL 12.5 MG TABS Every 8 Hours as needed 09/19 Meclizine Hcl 75042670190 System Maintenance FUROSEMIDE 20 MG TABS 3XWK 09/19 Furosemide 73972577316 System Maintenance FLUTICASONE PROPIONATE 50 MCG/ACT SUSP Twice A Day as needed 09/20 Fluticasone Propionate (Nasal) 80989375104 System Maintenance EPLERENONE 25 MG TABS Daily 09/20 Eplerenone 13939115221 System Maintenance DILTIAZEM HCL 30 MG TABS Twice A Day 09/20 Diltiazem Hcl 15815393678 System Maintenance DIAZEPAM 5 MG TABS Three Times A Day as needed 09/20 Diazepam 69857544806 System Maintenance COENZYME Q10 10 MG CAPS Discontinued 09/19 Coenzyme Q10 (Ubidecarenone) 49144740137 System Maintenance VITAMIN D 50 MCG (1999 [place]) TABS Daily 09/19 Cholecalciferol 59611842138 System Maintenance Aspirin Daily as needed 09/19 Aspirin 46269488787 System Maintenance AMLODIPINE BESYLATE 2.5 MG TABS Daily 09/20 Amlodipine Besylate 73370342724 System Maintenance ALPRAZOLAM 0.25 MG TABS Bedtime 09/19 Alprazolam 90264733881 System Maintenance Medications Administered No information available. Allergies, Adverse Reactions, Alerts Allergy Name Reaction Description Start Date Severity Status Provider Verapamil Mild Active Armando Granados MD Rosuvastatin Mild Active Miamiphuc Granados MD Penicillin v Mild Active [place] Roberta MAURICE Morphine Mild Active Armando E Roberta MAURICE Metronidazole Mild Active Armando E Roberta MAURICE Metoprolol Mild Active Armandophuc Granados MD Methyldopa Mild Active Miamiphuc Granados MD Losartan Mild Active Miamiphuc Granados MD Lorazepam Mild Active [place] MAURICE Lisinopril Mild Active Armando E Roberta MAURICE Latex Mild Active [place] MAURICE Lactose Mild Active Armando E Roberta MAURICE Labetalol Mild Active Miamiphuc Granados MD Hydrocodone Mild Active [place] MAURICE Hydrochlorothiazide Mild Active Armandophuc Granados MD Hydralazine Mild Active Miamiphuc Granados MD Diltiazem Mild Active Armando E Roberta MAURICE Atorvastatin Mild Active Miamiphuc Granados MD Acetaminophen Mild Active Armando E Roberta MAURICE <originalText>Sulfa drugs<reference value=#allergy-21/></o Mild Active Rup ert Dion Granados MD <originalText>Milk derivatives<reference value=#allergy-23 Moderate Active Armandophuc Granados MD <originalText>Lobster<refe rence value=#allergy-1/></orig in Moderate Active Miamiphuc Granados MD <originalText>Beta Adrenergic Blockers<reference value=#all Mild Active Armando Granados MD Results Date Name Value Unit Range Flag Description Office Visit: 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 Toba account contact associate smoking status Internal Other: Authorizatio n - [...] Detail Appointment 10:00 AM Fredi Worthy MD, [address] [place] [address], [address], [address], Appointment 11:30 AM Fredi Worthy MD, [address] [place] [address] [facility], [address], [address], Appointment 12:00 PM Fredi Worthy MD, [facility], [address], [address], Pending order MRA-Neck W/WO Pending order MRA-Head [...] ORDERS Follow up TIMMY ORDERS Patient Instructions [facility]-[id number] Documentation of current medicatio ns ORDERS Follow up with Neurologist or TIMMY ORDERS Instructions for Staff 04/03 [facility]-[id number] Documentation of current medicatio ns ORDERS Patient Instructions ORDERS Follow up in clinic or telemedicine with provider or TIMMY [id number] MRA-Neck W/WO ORDERS Follow up in clinic or telemedicine with provider or TIMMY ORDERS Patient Instructions [facility]-[id number] Documentation of current medicatio ns [facility]-[id number] Documentation of current medicatio ns Vital Signs [...]
== END 2025-02-09 20:31 | disposition left against medical advice (07) ==
LOC: ED 19:59
PROVIDERS: PCP Physician Assistant Medical
DX: Z53.21 Procedure and treatment not carried out due to patient leaving prior to being seen by health care provider (principal)

== ENCOUNTER 2025-02-10 09:21 | Outpatient (CLI) | payer MEDICARE, BC, SELFPAY | END 2025-02-10 09:22 | disposition home or self-care (01) | LOC: AMB 02-14 11:39 | PROVIDERS: PCP Physician Assistant Medical; Visit Provider Family Medicine | DX: R07.89 Other chest pain (principal) | CPT/HCPCS: A0425; A0427 ==

== ENCOUNTER 2025-02-21 16:46 | Emergency (ER) | payer MEDICARE, BC, SELFPAY ==
--- OUTSIDE RECORDS SUMMARY | 2025-01-08 18:47 | XMS_ITS | Encounter Summary ---
Author Organization [facility] Address [address] [place] [address] Care Team Providers Care Door Closer Mechanic Name Role Phone Kyra Perera Primary Care Provider [phone] Angel Hollins MD Unavailable Petra Dorado Unavailable [phone] Angel Hollins MD Unavailable Yves Ballard MD Unavailable + [phone] Reason for Visit * ReasonCommentsChest Pain Encounter Details DateTypeDepartmentCare Team (Latest Contact Info)Lvvxexslqif05/29/2025 7:47 PM CDT - 01/08/2025 11:[address] [place] [facility] Emergency Dept [address] [place] [phone] Neil Marsh MD EMERGENCY PHYSICIAN PA [address] [place], [place] [id number] Chest pain (Primary Dx); Headache; Hypertension Discharge Disposition: Home or Self Care Social History Tobacco UseTypesPacks/DayYears UsedDateSmoking Tobacco: NeverSmokeless Tobacco: NeverAlcohol UseStandard Drinks/WeekCommentsNot Currently0 (1 standard drink = 0.6 oz pure alcohol)PHQ-2AnswerDate RecordedPHQ-2 Zytvp047dolescent EducationAnswerDate RecordedGetting School Help NeededNot on file12/25/2022 CommentsNoSex and Gender InformationValueDate RecordedSex Assigned at BirthNot on fileLegal OtdRokvoq29/04/2012 3:34 AM CSTGender IdentityNot on file Sexual OrientationNot on filedocumented as of this encounter Last Filed Vital Signs Vital SignReadingTime TakenCommentsBlood Xrfavpqh670/9301/08/2025 10:36 PM CDT Wobwa777601/08/2025 10:36 PM XOYEmljjyjbmpk93.9 ??C (98.4 ??F)01/08/2025 7:44 PM CDTRespiratory Jfbn5589 7:44 PM CDTOxygen Rqdjamrdik22%01/08/2025 10:36 PM CDTInhaled Oxygen Concentration--Euovnb55.6 kg (138 lb 0.1 oz)01/08/2025 7:44 PM UMSBvsyoz475.5 cm (5' 2)01/08/2025 7:44 PM CDTBody Mass Index25.241 7:44 PM CDTdocumented in this encounter Functional Status * Calculated C-SSRS Risk Score (Lifetime/Recent)AnswerDate of AssessmentAuthorNo Risk Jxxprmxws36/29/2025 7:44 PM Bridgett Dawson RN * [place] Suicide Severity Rating Scale (Screener/Recent Self-Report)Question AnswerDate of AssessmentAuthor1. Wish to be (Past 1 Month)No01/08/2025 7:44 PM Bridgett Dawson RN2. Non-Specific Active Suicidal Thoughts (Past 1 Month)No01/08/2025 7:44 PM Bridgett Dawson RN6. Suicidal Behavior (Lifetime)No01/08/2025 7:44 PM Bridgett Dawson RN documented as of this encounter Medications at Time of Discharge MedicationSigDispense QuantityRefillsLast FilledStart DateEnd Date acetaminophen (TYLENOL) 325 MG tablet Indications:Right upper quadrant abdominal painTake 2 tablets (650 mg) by mouth every 4 hours as needed for mild pain or other (and adjunct with moderate or severe pain or per patient request)09/04/2023 alirocumab (PRALUENT) 75 MG/ML injectable pen Indications:Hyperlipidemia LDL goal <70,Statin intolerance,Elevated lipoprotein(a)Inject 1 mL (75 mg) subcutaneously every 14 days. 6 mL ALPRAZolam (XANAX) 0.25 MG tablet Take 0.5 tablets by mouth 3 times daily as needed for anxiety. aspirin 81 MG EC tablet Indications:Right upper quadrant abdominal painTake 1 tablet (81 mg) by mouth daily09/04/2023 famotidine (PEPCID) 20 MG tablet Take 20 [...] dose call 911. Vitamin D3 (VITAMIN D, CHOLECALCIFEROL,) 25 mcg (1000 units) tablet Take 1 tablet by mouth daily. Pitavastatin Magnesium (ZYPITAMAG) 2 MG TABS Take by mouth.documented as of this encounter ED Notes * [...] with minimal relief. She is also noted kqbe-xlb-wmlwukl in her head and a mild headache, [...] closely with her primary care provider and applications specialist. We discussed return precautions. DIAGNOSIS: ICD-10-CM 1. Chest pain R07.9 2. Headache R51.9 3. Hypertension I10 Neil Marsh MD 01/08/2025 [facility] EMERGENCY DEPT Neil Marsh MD [...] forcep; Surgeon: Jensen Contreras MD; Location: GI Physical Exam Patient Vitals for the past 24 hrs: BP Temp Temp src Pulse Resp SpO2 Height Weight 01/08/25 2236 (!) 186/93 -- -- 63 -- 98 % -- -- 01/08/252225 (!) 179/ -- -- 63 -- 96 % -- -- 01/08/252215 (!) 204 -- -- 71 -- 96 % -- -- 01/08/252205 (!) 194/101 -- -- 70 -- 95 % -- -- 01/08/252155 (!) 188/ -- -- 63 -- 95 % -- -- 01/08/252145 (!) 187/ -- -- 66 -- 97 % -- -- 01/08/252135 (!) 190/ -- -- -- -- 98 % -- -- 01/08/252110 (!) 180/ -- -- 64 -- 98 % -- -- 01/08/252049 (!) 163/ -- -- 65 -- 95 % -- -- 01/08/252044 (!) 172/ -- -- 67 -- 97 % -- -- 01/08/252041 (!) 182/ -- -- 63 -- 97 % -- [...] in all 4 extremities and face Coordination vrtjzr-wrvn-kibavl normal and heel-andrews normal Psych: normal mood [...] Duration 84 QT 354 QTc 400 P Deshler 46 R AXIS 34 T Deshler 70 Interpretation ECG Sinus rhythm Nonspecific ST [...] Documentation None Medical Decision Making / Diagnosis [facility] Diagnoses: None MIPS None [facility] Miya Restrepo is a 74 year old [...] and medical decision-making. Kira Ratliff PA-C 01/08/25 [id number] * Bridgett Dao RN - 01/08/2025 7:43 [...] documented as of this encounter Procedures Procedure NamePriorityDate/TimeAssociated DiagnosisCommentsTROPONIN T, HIGH SUEVGHNHGLOTQVN30/29/2025 10:12 PM CDT XR CHEST 2 TEWVLVMRO96/29/2025 9:08 PM CDT EXTRA FLGRDWUQ93/29/2025 8:02 PM CDT EXTRA RED TOP QHWSBMTZ61/29/2025 8:02 PM CDT EXTRA BLUE TOP GLISBVAZ29/29/2025 8:02 PM CDT D DIMER YLZYZTNMIVSODZSX56/29/2025 8:02 PM CDT CBC WITH PLATELETS AND PTBXULTIJMMZKQTU66/29/2025 8:01 PM CDT CBC WITH PLATELETS AND DIFFERENTIAL (LIMITED OCCURRENCES)STAT1 8:01 PM CDT BASIC METABOLIC PANEL (LIMITED OCCURRENCES)STAT1 8:01 PM CDT TROPONIN T, HIGH GDKHILCWIOCSDAL18/29/2025 8:01 PM CDT EKG 12-LEAD, TRACING MTWUHECR96/29/2025 7:51 PM CDT documented in this encounter Results * Troponin T, High Sensitivity (01/08/2025 10:12 PM CDT)ComponentValueRef Range Test MethodAnalysis TimePerformed AtPathologist SignatureTroponin T, High Sensitivity<6<=14 ng/L1 10:39 PM CDTRH LABORATORYComment: Either a High Sensitivity Troponin T baseline (0 hours) value = 100 ng/L, or an increase in High Sensitivity Troponin T = 7 ng/L at 2 hours compared to 0 hours (2-0 hours), suggests myocardial injury, and urgent clinical attention is required. ?? If the 2-0 hours increase is <7 ng/L, a High Sensitivity Troponin T result above gender-specificreference ranges warrants further evaluation. Recommendations for further evaluation include correlation with clinical decision-making tool (e.g., HEART), a 3rd High Sensitivity Troponin T test 2 hours after the 2nd (a 20% change from baseline would represent concern), admission for observation, close PCC/cardiology follow-up, or urgent outpatient provocative testing. Specimen (Source)Anatomical Location / LateralityCollection Method / Volume Collection TimeReceived TimeBloodSTRUCTURE OF RIGHT UPPER LIMB / Unknown Venipuncture / Loutoiq7001/08/2025 10:12 PM CDT1 10:17 PM CDT Narrative Authorizing ProviderResult TypeResult StatusKira JOSE - BLOOD ORDERABLESFinal ResultPerforming OrganizationAddressCity/State/ZIP CodePhone Number [facility] Acute [facility] Lab [address] [facility] Lab (1st floor, no room number) [place] [address], [facility] * XR Chest 2 Views (01/08/2025 9:08 PM CDT)Anatomical RegionLateralityModality ChestDigital RadiographySpecimen (Source)Anatomical Location / Laterality Collection Method / VolumeCollection TimeReceived Time01/08/2025 9:08 PM CDT Impressions 01/08/2025 9:39 PM CDT IMPRESSION: Heart size and pulmonary vascularity within normal limits. No focal lung infiltrates. Osseous structures grossly intact. Visualized upper abdomen unremarkable. Narrative 01/08/2025 9:39 PM CDT EXAM: XR CHEST 2 VIEWS LOCATION: [facility] DATE: 01/08/2025 INDICATION: Chest pressure COMPARISON: 12/08/2024 Procedure Note Bharathi Neville MD - 01/08/2025 EXAM: XR CHEST 2 VIEWS LOCATION: [facility] DATE: 01/08/2025 INDICATION: Chest pressure COMPARISON: 12/08/2024 IMPRESSION: Heart size and pulmonary vascularity within normal limits.No focal lung infiltrates. Osseous structures grossly intact. Visualizedupper abdomen unremarkable. Authorizing ProviderResult TypeResult StatusKira Ratliff [facility] DIAGNOSTIC IMAGING ORDERABLESFinal Result * D dimer quantitative (01/08/2025 8:02 PM CDT)ComponentValueRef RangeTest MethodAnalysis TimePerformed AtPathologist SignatureD-Dimer Quantitative0.36 0.00 - 0.50 ug/mL FEU1 8:26 PM CDTRH LABORATORYSpecimen (Source) Anatomical Location / LateralityCollection Method / VolumeCollection Time Received TimeBloodSTRUCTURE OF RIGHT UPPER LIMB / UnknownVenipuncture / Mybgjae9701/08/2025 8:02 PM CDT1 8:06 PM CDT Narrative LABORATORY - 01/08/2025 8:26 PM CDT This [...] 0.01 ug/mL = 0.76 ug/mL (760 ug/L). Arabella Berger et al. Age adjusted D-dimer cut-off levels to rule out pulmonary embolism: The ADJUST-PE Study. TEODORO 2014;311:4647-9366.; HJ Godwin et al. Diagnostic accuracy of conventional or age adjusted D-dimer cutoff values in older patients with suspected venous thromboembolism. Systemic review and meta- analysis. BMJ 2013:346:f2492. Authorizing ProviderResult TypeResult StatusElla Gaudencio PA-CLAB - BLOOD ORDERABLESFinal ResultPerforming OrganizationAddressCity/State/ZIP CodePhone Number [facility] Care Lab [address] Lab (1st floor, no room number) [place] [address] * Extra Red Top Tube (01/08/2025 8:02 PM CDT)ComponentValueRef RangeTest Method Analysis TimePerformed AtPathologist SignatureHold AekafiulBBV37/29/2025 9:16 PM CDTRH LABORATORYSpecimen (Source)Anatomical Location / LateralityCollection Method / VolumeCollection TimeReceived TimeBloodSTRUCTURE OF RIGHT UPPER LIMB / UnknownVenipuncture / Wzaaqvi6901/08/2025 8:02 PM CDT1 8:06 PM CDT Narrative Authorizing ProviderResult TypeResult StatusElla Gaudencio PA-CLAB - BLOOD ORDERABLESFinal ResultPerforming OrganizationAddressCity/State/ZIP CodePhone Number [facility] Lab [address] Lab (1st floor, no room number) [place] [address], [facility] * Extra Blue Top Tube (01/08/2025 8:02 PM CDT)ComponentValueRef RangeTest Method Analysis TimePerformed AtPathologist SignatureHold YksglvkdCCB93/29/2025 9:16 PM CDTRH LABORATORYSpecimen (Source)Anatomical Location / LateralityCollection Method / VolumeCollection TimeReceived TimeBloodSTRUCTURE OF RIGHT UPPER LIMB / UnknownVenipuncture / Rzqkmve9301/08/2025 8:02 PM CDT1 8:06 PM CDT Narrative Authorizing ProviderResult TypeResult StatusElla Gaudencio PA-CLAB - BLOOD ORDERABLESFinal ResultPerforming OrganizationAddressCity/State/ZIP CodePhone Number [facility] Care Lab [address] Lab (1st floor, no room number) [place] [address], [facility] * CBC with platelets and differential (01/08/2025 8:01 PM CDT)ComponentValueRef RangeTest MethodAnalysis TimePerformed AtPathologist SignatureWBC Count6.58 4.00 - 11.00 10e3/uL01/08/2025 8:09 PM TR LABORATORYRBC Count5.043.80 - 5.20 10e6/uL01/08/2025 8:09 PM CDTR WEMGWVUKVUJjfcuevmic69.111.7 - 15.7 g/dL 01/08/2025 8:09 PM TR AERNXVYVORZzuckclpnc31.035.0 - 47.0 %01/08/2025 8:09 PM [facility] QVGIHGWZRYZBJ63.378.0 - 100.0 fL01/08/2025 8:09 PM TR LABORATORY MCH30.026.5 - 33.0 pg01/08/2025 8:09 PM [facility] SUZLVOIGHKRTZG40.631.5 - 36.5 g/dL01/08/2025 8:09 PM [facility] XKEEHDDRXMZUJ35.410.0 - 15.0 %01/08/2025 8:09 PM CDTR LABORATORYPlatelet Izizm645071 - 450 10e3/uL01/08/2025 8:09 PM CDTR LABORATORY% Vzmtilqxjyy77.2%01/08/2025 8:09 PM CDTR LABORATORY% Lymphocytes 31.9%01/08/2025 8:09 PM CDTR LABORATORY% Monocytes9.1%01/08/2025 8:09 PM CDT LABORATORY% Eosinophils2.7%01/08/2025 8:09 PM CDTR LABORATORY% Basophils 0.6%01/08/2025 8:09 PM CDTR LABORATORY% Immature Granulocytes0.5%01/08/2025 8:09 PM CDTR LABORATORYNRBCs per 100 WBC0.0<1.0 /0634701/08/2025 8:09 PM CDTR LABORATORYAbsolute Neutrophils3.631.60 - 8.30 10e3/uL01/08/2025 8:09 PM CDTR LABORATORYAbsolute Lymphocytes2.100.80 - 5.30 10e3/uL01/08/2025 8:09 PM CDTR LABORATORYAbsolute Monocytes0.600.00 - 1.30 10e3/uL01/08/2025 8:09 PM CDTR LABORATORYAbsolute Eosinophils0.180.00 - 0.70 10e3/uL01/08/2025 8:09 PM CDTRH LABORATORYAbsolute Basophils0.040.00 - 0.20 10e3/uL01/08/2025 8:09 PM CDTRH LABORATORYAbsolute Immature Granulocytes0.03<=0.40 10e3/uL01/08/2025 8:09 PM CDTRH LABORATORYAbsolute NRBCs<0.0310e3/uL01/08/2025 8:09 PM CDTRH LABORATORY Specimen (Source)Anatomical Location / LateralityCollection Method / Volume Collection TimeReceived TimeBloodSTRUCTURE OF RIGHT UPPER LIMB / Unknown Venipuncture / Bmoocgm7201/08/2025 8:01 PM CDT1 8:05 PM CDT Narrative Authorizing ProviderResult TypeResult StatusKira JOSE - BLOOD ORDERABLESFinal ResultPerforming OrganizationAddressCity/State/ZIP CodePhone Number [facility] Lab [address] [facility] Lab (1st floor, no room number) [place] [address] * Troponin T, High Sensitivity (01/08/2025 8:01 PM CDT)ComponentValueRef Range Test MethodAnalysis TimePerformed AtPathologist SignatureTroponin T, High Sensitivity7<=14 ng/L1 8:27 PM CDTR LABORATORYComment: Either a High Sensitivity Troponin T baseline (0 hours) value = 100 ng/L, or an increase in High Sensitivity Troponin T = 7 ng/L at 2 hours compared to 0 hours (2-0 hours), suggests myocardial injury, and urgent clinical attention is required. ?? If the 2-0 hours increase is <7 ng/L, a High Sensitivity Troponin T result above gender-specificreference ranges warrants further evaluation. Recommendations for further evaluation include correlation with clinical decision-making tool (e.g., HEART), a 3rd High Sensitivity Troponin T test 2 hours after the 2nd (a 20% change from baseline would represent concern), admission for observation, close PCC/cardiology follow-up, or urgent outpatient provocative testing. Specimen (Source)Anatomical Location / LateralityCollection Method / Volume Collection TimeReceived TimeBloodSTRUCTURE OF RIGHT UPPER LIMB / Unknown Venipuncture / Lejwqfh1001/08/2025 8:01 PM CDT1 8:06 PM CDT Narrative Authorizing ProviderResult TypeResult StatusKira Ratliff PA-CLAB - BLOOD ORDERABLESFinal ResultPerforming OrganizationAddressCity/State/ZIP CodePhone Number [facility] Lab [address] [facility] Lab (1st floor, no room number) [place] [address], [facility] * Basic Metabolic Panel (Limited Occurrences) (01/08/2025 8:01 PM CDT)Component ValueRef RangeTest MethodAnalysis TimePerformed AtPathologist SignatureSodium 876545 - 145 mmol/L1 8:27 PM CDTRH LABORATORYPotassium4.33.4 - 5.3 mmol/L1 8:27 PM CDTRH KVGBYXJVQSFatcuemp56191 - 107 mmol/L1 8:27 PM CDTRH LABORATORYCarbon Dioxide (CO2)2422 - 29 mmol/L1 8:27 PM CDTRH LABORATORYAnion Ceo711 - 15 mmol/L1 8:27 PM CDTRH LABORATORY Urea Eztqfrif02.08.0 - 23.0 mg/dL01/08/2025 8:27 PM CDTRH LABORATORYCreatinine 0.750.51 - 0.95 mg/dL01/08/2025 8:27 PM CDTRH LABORATORYGFR Dyybbptd33>60 mL/min/1.89h86301/08/2025 8:27 PM CDTRH LABORATORYComment:eGFR calculated using 2020 CKD-EPI equation.Calcium9.78.8 - 10.4 mg/dL01/08/2025 8:27 PM CDTRH UKGVPIUBUJXpgvbah2254 - 99 mg/dL01/08/2025 8:27 PM CDTRH LABORATORYSpecimen (Source)Anatomical Location / LateralityCollection Method / VolumeCollection TimeReceived TimeBloodSTRUCTURE OF RIGHT UPPER LIMB / UnknownVenipuncture / Ewipoow2801/08/2025 8:01 PM CDT1 8:06 PM CDT Narrative Authorizing ProviderResult TypeResult StatusKira Gaudencio PA-CLAB - BLOOD ORDERABLESFinal ResultPerforming OrganizationAddressCity/State/ZIP CodePhone Number [facility] Lab [address] [facility] Lab (1st floor, no room number) [place] [address], [facility] * EKG 12-lead, tracing only (01/08/2025 7:51 PM CDT)ComponentValueRef RangeTest MethodAnalysis TimePerformed AtPathologist SignatureSystolic Blood Pressure mmHgRADIOLOGY RESULTSDiastolic Blood PressuremmHgRADIOLOGY RESULTSVentricular Qrhq08ECWBZRLWTFXE RESULTSAtrial Euan53FVQMZTEMIKRE RESULTSPR Cpelizlj867iq RADIOLOGY RESULTSQRS Tzfcxttp23kzBXNZNUPYG BNTTBCBHT740tbBVTWGNFRS RESULTSQTc 400msRADIOLOGY RESULTSP Dthr03trumydoDKEPHEKIJ RESULTSR MWWH64dtertgsZSKGYLFAE RESULTST Cvir15gqtnjgsOOFYJCTKE RESULTSInterpretation ECGSinus rhythm Nonspecific ST and T wave abnormality Abnormal ECG When compared with ECG of 08-Dec-2024 06:13, No significant change was found Unconfirmed report - interpretation of this ECG is computer generated - see medical record for final interpretation Confirmed by - EMERGENCY ROOM, PHYSICIAN ([id number]), manuscript editor PETRA WILSON ([id number]) on 01/09/2025 6:44:11 AM RADIOLOGY RESULTSSpecimen (Source)Anatomical Location / LateralityCollection Method / VolumeCollection TimeReceived Time01/08/2025 7:51 PM CDT1 6:44 AM CDT Narrative Authorizing ProviderResult TypeResult StatusNeil BORGES ORDERABLES Edited Result - FinalPerforming OrganizationAddressCity/State/ZIP CodePhone Number RADIOLOGY RESULTS documented in this encounter Visit Diagnoses Diagnosis Chest pain- Primary Chest pain, unspecified Headache Hypertension Unspecified essential hypertension documented in this encounter Administered Medications Medication OrderMAR ActionAction DateDoseRateSite acetaminophen (TYLENOL) tablet 975 mg 975 mg, Oral, ONCE, On Mon01/08/25 at 2150, For 1 dose, Maximum acetaminophen dose from all sources = 75 mg/kg/day not to exceed 4 grams/day. $Given01/08/2025 9:55 PM EBE591 mg metoprolol tartrate (LOPRESSOR) half-tab 12.5 mg 12.5 mg, Oral, 2 TIMES DAILY, First dose on Mon01/08/25 at 2034, Tablets can be crushed and given via enteral route. $Given01/08/2025 8:41 PM CDT12.5 mg sodium chloride 0.9% BOLUS 1,000 mL Intravenous, 1,000 mL, ONCE, at 1,000 mL/hr, Administer over 1 Hours, On Mon01/08/25 at 2030, For 1 dose $New Bag01/08/2025 8:42 PM CDT1,000 oLw0937 mL/hrdocumented in this encounter Active and Recently Administered Medications Times are shown in CDT.Medication Order/ acetaminophen (TYLENOL) tablet 975 mg (COMPLETED) 975 mg, Oral, ONCE, On Mon01/08/25 at 2149, For 1 dose, Maximum acetaminophen dose from all sources = 75 mg/kg/day not to exceed 4 grams/day. * 2154 ($Given - Provider: Aung Garcia RN) metoprolol tartrate (LOPRESSOR) half-tab 12.5 mg 12.5 mg, Oral, 2 TIMES DAILY, First dose on Mon01/08/25 at 2034, Tablets can be crushed and given via enteral route. * 2040 ($Given - Provider: Aung Garcia RN) sodium chloride 0.9% BOLUS 1,000 mL (COMPLETED) Intravenous, 1,000 mL, ONCE, at 1,000 mL/hr, Administer over 1 Hours, On Mon01/08/25 at 2030, For 1 dose * 2041 ($New Bag - Provider: Aung Garcia RN) * 2214 (Stopped - Provider: Aung Garcia RN) documented in this encounter Care Teams Team MemberRelationshipSpecialtyStart DateEnd Date Kyra Perera [address] [place] [address] PCP - GeneralPhysician Assistant03/31/22 Angel Hollins MD [address] [facility] MD[address]G [place] [address] Neurology07/20/23 Petra Dorado PA [address] [place], [place] [phone] Physician AssistantPhysical Medicine and Rehabilitation07/20/23 Angel Hollins MD [address] [facility] TA[address]PE [place] [address] Assigned Neuroscience Provider08/03/23 Yves Ballard MD [address] [place], [place] [address] Assigned Heart and Vascular Provider12/04/23documented as of this encounter
--- OUTSIDE RECORDS SUMMARY | 2025-01-17 10:30 | XMS_ITS | Encounter Summary ---
Author Organization [place] Address [facility] [place] [address] Care Team Providers Care Bowl Attendant Name Role Phone GwendinalorieKyra Primary Care Provider [phone] Angel Hollins MD Unavailable [phone] Petra Dorado Unavailable [phone] Angel Hollins MD Unavailable [phone] Yves Ballard MD Unavailable [phone] Reason for Visit * ReasonCommentsRECHECKFollow up to 12/10/24 * Consultation (Routine: Next available opening) - Pending ReviewSpecialty Diagnoses / ProceduresReferred By ContactReferred To Contact Diagnoses Hyperlipidemia LDL goal <70 Statin intolerance Elevated lipoprotein(a) Atherosclerosis of abdominal aorta Cerebrovascular accident (CVA), unspecified mechanism (H) Lymphedema Benign essential hypertension Yves Ballard MD [address] [facility] [address] [place] [address] Phone: tel: fax: Referral IDStatusReasonStart DateExpiration DateVisits RequestedVisits [id number] Encounter Details DateTypeDepartmentCare Team (Latest Contact Info)Jlbfpljfdvh27/07/2025 10:30 AM CSTOffice Visit [facility] [address] [place] [phone] Yves Ballard MD [address] [place] [address] Hyperlipidemia LDL goal <70 (Primary Dx); Elevated lipoprotein(a); Atherosclerosis of abdominal aorta; Cerebrovascular accident (CVA), unspecified mechanism (H); Statin intolerance; Hypertension with intolerance to multiple antihypertensive drugs; Medication intolerance ( multiple 40 drugs) Social History Tobacco UseTypesPacks/DayYears UsedDateSmoking Tobacco: NeverSmokeless Tobacco: NeverAlcohol UseStandard Drinks/WeekCommentsNot Currently0 (1 standard drink = 0.6 oz pure alcohol)PHQ-2AnswerDate RecordedPHQ-2 [id number] EducationAnswerDate RecordedGetting School Help NeededNot on file12/25/2022 CommentsNoSex and Gender InformationValueDate RecordedSex Assigned at BirthNot on fileLegal BqpCetkcj58/04/2012 3:34 AM CSTGender IdentityNot on file Sexual OrientationNot on filedocumented as of this encounter Last Filed Vital Signs Vital SignReadingTime TakenCommentsBlood Rnamfuir780/8101/17/2025 10:44 AM WHEEL BUFFER Avftt862201/17/2025 10:44 AM CSTTemperature--Respiratory Rate--Oxygen Saturation 97%01/17/2025 10:44 AM CSTInhaled Oxygen Concentration--Jpkiaj63.1 kg (139 lb 3.2 oz)01/17/2025 10:44 AM CSTHeight--Body Mass Index25.4601/08/2025 7:44 PM CDT documented in this encounter Patient Instructions * Patient Instructions* Yves Ballard MD - 01/17/2025 10:30 AM WHEEL BUFFER Please talk to primary and see Pharm D ( communications specialist due to multiple drug allergies) and consider seeing manager convention If they clear, I can prescribe Bempedoic acid for lipids and Minoxidil for BP Take Zypitamag 2 mg as advised Monitor BP at home Follow up virtual or office in 3-4 months L BUFFER L BUFFER L BUFFER documented in this encounter Progress Notes * Breonna White MA - 01/17/2025 10:30 AM CST [facility] Patient is here for a follow up. Pt is currently taking Aspirin. BP (!) 171/81 (BP Location: Left arm, Patient Position: Chair, Cuff Size: Adult Regular) Pulse 76 Wt 139 lb 3.2 oz (63.1 kg) SpO2 97% BMI 25.46 kg/m?? The provider has been notified that the patient has no concerns. Questions patient would like addressed today are: Follow up. Refills are needed: No Has homecare services and agency name: No Breonna White MA L BUFFER * Yves Ballard MD - 01/17/2025 10:30 AM CST [facility] VASCULAR MEDICINE FOLLOW-UP VISIT Multiple questions and concerns Very complex and complicated past medical history and she is allergic to 14 medications Currently not taking any cholesterol-lowering medication previously tried multiple of them close just she tolerated was Zypitamag 2 mg 2 times a week PCSK9 inhibitors are not covered or expensive more than $600 Recently seen in the ER underwent head and neck CTA MRI of the brain chronic changes no acute findings noted Now the blood pressure is better Underwent renal denervation June 2024 at [facility] some improvement in blood pressure but still systolic is around 170 Recent hypertension urgency seen in ER , MRI brain diffuse changes For full details please see my previous office visit notes Review of recent labs Allergic to 40 different medications Recent lipids worse High lipoprotein a She could not tolerate Zetia either stopped taking Her insurance did not cover Repatha but covered Praluent but it was costing more than $770 and she never took it Recently seen and evaluated by cardiology service her blood pressure is very high and cannot handleany medications except low-dose metoprolol 25 mg twice a day PAST MEDICAL HISTORY Past Medical History: Diagnosis [...] 20 mg by mouth twice a week. nitroGLYcerin (NITROSTAT) 0.[address] 0.4 mg under the tongue every 5 minutes asneeded for chest pain For chest pain place 1 tablet under the tongue every 5 minutes for 3 doses. If symptoms persist 5 minutes after 1st dose call 911. Pitavastatin Magnesium (ZYPITAMAG) 2 MG TABS Take 2 mg by mouth daily. 30 tablet 5 Vitamin D3 (VITAMIN D, CHOLECALCIFEROL,) 25 mcg (1000 units) tablet Take 1 tablet by mouth daily. metoprolol tartrate (LOPRESSOR) 25 MG tablet Take 12.5 mg by mouth 2 times daily. (Patient taking differently: Take 12.5 mg by mouth daily.) No current facility-administered medications for this visit. PAST SURGICAL HISTORY: Past Surgical History: Procedure Laterality Date CHOLECYSTECTOMY ESOPHAGOSCOPY, GASTROSCOPY, DUODENOSCOPY (EGD), COMBINED N/A 09/04/2023 Procedure: Esophagoscopy, gastroscopy, duodenoscopy (EGD), combined using cold bx forcep; Surgeon: Jensen Contreras MD; Location: [facility] Allergies[1] FAMILY HISTORY Family History Problem Relation Age of Onset Cancer Sister Prostate Cancer Brother SOCIAL HISTORY Social History Socioeconomic History Marital status: Spouse name: Not on file Number of [...] Resource Strain: Low Risk (04/16/2024) Received from [employer] Financial Resource Strain Difficulty of Paying Living Expenses: 3 Difficulty of Paying Living Expenses: Not on file Food Insecurity: No Food Insecurity (04/16/2024) [facility] Food Insecurity Do you worry your food will run out before you are able to buy more?: 1 Transportation Needs: No Transportation Needs (04/16/2024) Received from [facility] Transportation Needs Does lack of transportation keep you from medical appointments?: 1 Does lack of transportation keep you from work, meetings or getting things that you need?: 1 Physical Activity: Not on file Stress: Not on file Social Connections: Socially Integrated (04/16/2024) Received from [employer] Social Connections Do you often feel lonely or isolated from those around you?: 0 Interpersonal Safety: Not on file Housing Stability: Low Risk (04/16/2024) Received from [employer] Housing Stability What is your housing situation today?: 1 ROS: General: No change in weight, sleep or appetite. Normal energy. No fever or chills Reviewed all 12 point review of systems as per HPI EXAM: BP (!) 171/81 (BP Location: Left arm, Patient Position: Chair, Cuff Size: Adult Regular) Pulse 76 Wt 139 lb 3.2 oz (63.1 kg) SpO2 97% BMI 25.46 kg/m?? In general, the patient is a pleasant female in no apparent distress. Neck: No adenopathy. No thyromegaly. Carotids +2/2 bilaterally without bruits. No jugular venous distension. Heart: RRR. Normal S1, S2 Lungs: CTA. No ronchi, wheezes, rales. No dullness to percussion. Abdomen: Soft, nontender, nondistended. No organomegaly. No AAA. No bruits. Extremities: No clubbing, cyanosis, or edema. No wounds. Labs: LIPID RESULTS: Lab Results Component Value Date CHOL 237 (H) 02/20/2024 HDL 47 (L) 02/20/2024 LDL 148 (H) 02/20/2024 TRIG 208 (H) 02/20/2024 LIVER ENZYME RESULTS: Lab Results Component Value Date AST 25 12/08/2024 AST 30 08/16/2019 ALT 20 12/08/2024 ALT 47 08/16/2019 CBC RESULTS: Lab Results Component Value Date WBC 6.58 01/08/2025 WBC 5.9 08/16/2019 RBC 5.04 01/08/2025 RBC 5.11 08/16/2019 HGB 15.1 01/08/2025 HGB 15.0 08/16/2019 HCT 45.0 01/08/2025 HCT 44.9 08/16/2019 MCV 89.3 01/08/2025 MCV 88 08/16/2019 MCH 30.0 01/08/2025 MCH 29.4 08/16/2019 MCHC 33.6 01/08/2025 MCHC 33.4 08/16/2019 RDW 13.4 01/08/2025 RDW 13.2 08/16/2019 PLT 196 01/08/2025 PLT 225 08/16/2019 BMP RESULTS: Lab Results Component Value Date NA 139 01/08/2025 NA 141 08/16/2019 POTASSIUM 4.3 01/08/2025 POTASSIUM 3.6 08/16/2019 CHLORIDE 102 01/08/2025 CHLORIDE 109 08/16/2019 CO2 24 01/08/2025 CO2 27 08/16/2019 ANIONGAP 13 01/08/2025 ANIONGAP 5 08/16/2019 GLC 97 01/08/2025 GLC 110 (H) 01/27/2024 GLC 123 (H) 08/16/2019 BUN 18.0 01/08/2025 BUN 18 08/16/2019 CR 0.75 01/08/2025 CR 0.76 08/16/2019 GFRESTIMATED 83 01/08/2025 GFRESTIMATED 80 08/16/2019 GFRESTBLACK >90 08/16/2019 LIZ 9.7 01/08/2025 LIZ 8.3 (L) 08/16/2019 A1C RESULTS: Lab Results Component Value Date A1C 6.0 (H) 01/27/2024 THYROID RESULTS: Lab Results Component Value Date TSH 6.47 (H) 12/08/2024 Procedures: Reviewed recent ER eval, multiple imaging studies Assessment and Plan: 1. Hypertension, uncontrolled and intolerance to almost all class of drugs currently taking metoprolol to tartrate 25 mg twice a day 2. Atherosclerosis of abdominal aorta (H24) 3. Hx of Cerebrovascular accident (CVA), (H) 4. Hyperlipidemia LDL goal <70 5. Elevated Lipoprotein a 192 nmol/L 6. Statin intolerance, Zetia intolerance, Repatha not covered, Praluent expensive more than $700 a month This is a very pleasant 74-year-old female with complex and complicated past medical and past surgical history intolerance to multiple medications listed 40 medication allergies uncontrolled hypertension only able to [...] renal denervation for blood pressure control at [facility] in last week of June 2024 which [...] and then followed by every 6 months. Other option is bempedoic acid or tradename Nexletol, she would like to explore coverage and she will get it from her primary Her primary also trying to get the Leqvio and in the process of talking to Pharm.D. at [facility] etc. Refill Zypitamag and send the prescription to [place] suggested patient to take 2 times a week for a month if tolerates increase to 3 times a week Advised patient to discuss with Pharm.D. for bempedoic acid options coupon given will prescribe if it is covered by her insurance or if she can afford Advised patient to discuss with Pharm.D. if minoxidil is an option if so we can prescribe 2.5 mg once a day and if tolerates this can be increased to twice a day She will benefit with seeing manager convention for 40 different medication allergies limiting options of treating Virtual video or office visit in 3 to 4 months 55 minutes spent on the date of the encounter doing chart review, history and exam, documentation, and further activities as noted above. The longitudinal care of plan for the above diagnoses was addressed during this visit. Due to addedcomplexity of care, we will continue to supprt Miya Lamberts and the subsequent management of this/these conditions and with ongoing continuity of care for this/these conditions. Yves Ballard MD,FAHA,FSVM,FNLA, FACP Vascular Medicine Clinical Hypertension Specialist Clinical Lipidologist [1] Allergies Allergen Reactions Amlodipine Palpitations Atorvastatin Muscle Pain (Myalgia) Other reaction(s): Myalgia Caused myalgias. Caused myalgias. Caused myalgias. Caused myalgias. Other reaction(s): Myalgia Caused myalgias. Caused myalgias. Caused myalgias. Caused myalgias. Chlorthalidone Shortness Of Breath Other Reaction(s): Dyspnea Clonidine Shortness Of Breath and Difficulty breathing Diltiazem Anxiety Doxazosin Other (See Comments) Bleeding Other Reaction(s): Bleeding Nose bleeding, tried twice for 3 days and happened both times Gabapentin Shortness Of Breath Hydralazine Other reaction(s): Tachycardia Other Reaction(s): Tachycardia Hydrochlorothiazide Other (See Comments) and Difficulty breathing ? asthma ? asthma ? asthma ? asthma Hydrocodone Nausea and Vomiting Labetalol Shortness Of Breath and Difficulty breathing Lisinopril Other reaction(s): Chest Pain Other Reaction(s): Chest Pain Lorazepam Other (See Comments) Pt reports depression Pt reports depression Pt reports depression Pt reports depression Other Reaction(s): Depression Losartan Shortness Of Breath Noted dyspnea Noted dyspnea Noted dyspnea Other Reaction(s): Dyspnea Lyrica [Pregabalin] Shortness Of Breath Methyldopa Rash Metronidazole Hives Milk (Cow) Morphine Anaphylaxis, Hives and Nausea and Vomiting Other (Do Not Use) Penicillins Angioedema and Swelling Other reaction(s): Angioedema, Angioedema Other Reaction(s): Throat Closing, throat swells Propafenone Shortness Of Breath Rosuvastatin Muscle Pain (Myalgia) Other reaction(s): Myalgia Caused myalgias. Caused myalgias. Caused myalgias. Caused myalgias. Other reaction(s): Myalgia Caused myalgias. Caused myalgias. Caused myalgias. Caused myalgias. Shellfish Allergy Angioedema Had severe pain and swelling after lobster Other reaction(s): Angioedema Had severe pain and swelling after lobster Shellfish Protein-Containing Drug Products Angioedema Other reaction(s): Angioedema Had severe pain and [...] when she ate lobster Sulfa Antibiotics Hives Verapamil Shortness Of Breath Other Reaction(s): Dyspnea Metoprolol Succinate [Metoprolol] Other (See Comments) Reaction to SUCCINATE was described by patient as throat swelling that she treated at home with benadryl and did not seek medical care (Tolerating metoprolol tartrate as of 10/28/24) Abdias Inhibitors Acetaminophen Ezetimibe Other (See Comments) Pins and needles feeling all over her body, swollen throat, muscle pain Hydrocodone-Acetaminophen Nausea and Vomiting Isosorbide Nitrate Headache Lactose Other reaction(s): Intolerance-Can't Take Flu-like symptoms Other Reaction(s): Intolerance-Can't Take Flu-like symptoms Other reaction(s): Intolerance-Can't Take Flu-like symptoms Latex Other (See Comments) Olmesartan Dizziness vertigo Other Drug Allergy (See Comments) Other (See Comments) got sick from it Sulfatolamide Hives Isosorbide Palpitations Propranolol Anxiety and Headache L BUFFER documented in this encounter Plan of Treatment Not on file documented as of this encounter Visit Diagnoses Diagnosis Hyperlipidemia LDL goal <70- Primary Other and unspecified hyperlipidemia Elevated lipoprotein(a) Other disorders of lipoid metabolism Atherosclerosis of abdominal aorta Atherosclerosis of aorta Cerebrovascular accident (CVA), unspecified mechanism (H) Statin intolerance Other drug allergy Hypertension with intolerance to multiple antihypertensive drugs Medication intolerance ( multiple 40 drugs) Other drug allergy documented in this encounter Care Teams Team MemberRelationshipSpecialtyStart DateEnd Date Kyra Perera [address] [place] [address] PCP - GeneralPhysician Assistant03/31/22 Angel Hollins MD [address] [address] Neurology07/20/23 Petra Dorado PA [address] [place] [address] Physician AssistantPhysical Medicine and Rehabilitation07/20/23 Angel Hollins MD [address] [address] Assigned Neuroscience Provider08/03/23 Yves Ballard MD [address] [facility] [address] [place] [address] Assigned Heart and Vascular Provider12/04/23documented as of this encounter
--- OUTSIDE RECORDS SUMMARY | 2025-01-30 16:32 | XMS_ITS | Encounter Summary ---
Author Organization [facility] Address [address] [place] [address] Care Team Providers Care Survey Technologist Name Role Phone Kyra Perera Primary Care Provider [phone] Angel Hollins MD Unavailable [phone] Petra Dorado Unavailable [phone] Angel Hollins MD Unavailable Yves Ballard MD Unavailable + [phone] Reason for Visit * ReasonCommentsSlurred SpeechNumbness Encounter Details DateTypeDepartmentCare Team (Latest Contact Info)Znyakxpnzyn83/20/2025 4:32 PM THIRD LOADER - 01/30/2025 11:46 PM CSTEmecatarina Bell [facility] Emergency Dept [address] [place] [address] Andrea Gamboa DO [facility] [address] [place], [place] [id number] Dysarthria (Primary Dx); Right facial numbness; Nonintractable headache, unspecified chronicity pattern, unspecified headache type Discharge Disposition: Home or Self Care Social History Tobacco UseTypesPacks/DayYears UsedDateSmoking Tobacco: NeverSmokeless Tobacco: NeverAlcohol UseStandard Drinks/WeekCommentsNot Currently0 (1 standard drink = 0.6 oz pure alcohol)PHQ-2AnswerDate RecordedPHQ-2 Ytrhk685dolescent EducationAnswerDate RecordedGetting School Help NeededNot on file12/25/2022 CommentsNoSex and Gender InformationValueDate RecordedSex Assigned at BirthNot on fileLegal HdsKgsnci16/04/2012 3:34 AM CSTGender IdentityNot on file Sexual OrientationNot on filedocumented as of this encounter Last Filed Vital Signs Vital SignReadingTime TakenCommentsBlood Kymfexnn749/8501/30/2025 11:38 PM THIRD LOADER Vhixw178001/30/2025 11:38 PM ZZYReqwpoprljx76.9 ??C (98.5 ??F)01/30/2025 4:36 PM CSTRespiratory Asmk920404/01/2024 4:36 PM CSTOxygen Vnleqvteps99%01/30/2025 11:39 PM CSTInhaled Oxygen Concentration--Uzwdlx58 kg (132 lb 4.4 oz)01/30/2025 4:36 PM CSTHeight--Body Mass Index24. 7:44 PM CDTdocumented in this encounter Functional Status * Calculated C-SSRS Risk Score (Lifetime/Recent)AnswerDate of AssessmentAuthorNo Risk Votymolun76/20/2025 5:08 PM Anjelica Mederos RN * [place] Suicide Severity Rating Scale (Screener/Recent Self-Report)Question AnswerDate of AssessmentAuthor1. Wish to be (Past 1 Month)No01/30/2025 5:08 PM Anjelica Mederos RN2. Non-Specific Active Suicidal Thoughts (Past 1 Month)No01/30/2025 5:08 PM Anjelica Mederos RN6. Suicidal Behavior (Lifetime)No 01/30/2025 5:08 PM Anjelica Mederos RN documented as of this encounter Discharge Instructions * Discharge Instructions* Andrea Gamboa DO - 01/30/2025 10:56 PM THIRD LOADER Please follow-up with your primary care provider and and neurologist regarding your visit to the [facility]. Please return to the emergency department should you experience any of the symptoms we specificallydiscussed, including but not limited to recurrence or worsening of your symptoms, or development ofany new and concerning symptoms such as fever, chest pain, shortness of breath, worsening headache,new lightheaded dizziness, new numbness or weakness, or other new neurological symptoms. D LOADER D LOADER * Attachments The following attachments cannot be sent through Care Everywhere. * Dysarthria: General Info (Sri Lankan) * Numbness and Tingling ([place]ankan) * Headache ([place]ankan) documented in this encounter Medications at Time [...] 911. Pitavastatin Magnesium (ZYPITAMAG) 2 MG TABS Indications:Hyperlipidemia LDL goal <70Take 2 mg by mouth daily. 30 tablet Vitamin D3 (VITAMIN D, CHOLECALCIFEROL,) 25 mcg (1000 units) tablet Take 1 tablet by mouth daily.documented as of this encounter Consult Notes * Jadon Loya MD - 01/30/2025 5:07 PM CST [facility] Stroke Telephone Note I was called by Andrea Gamboa on 01/30/2025 regarding patient Miya Restrepo. The patient is a 74 year old female past medical history notable for left subcortical infarct 06/2023, HTN, HLD, SHERRIE, CKD, mast cell activation syndrome, SVT who has chronic stroke deficits including right sided numbness, dysarthria, RUE/RLE weakness who is presenting to the emergency department for worsening right facial numbness and dysarthria. LKW 1400. Patient is presenting to the emergency department with slurred speech, right facial numbness, headache, heart palpitations. She has a history of a stroke in 06/2023 involving the left subcortical periventricular. Upon arrival to the emergency department her blood pressure is 200/94. Patient has 7/10 headache. Per ED MD examination patient demonstrates RUE ataxia with some drift (prior deficit), right face and arm numbness (prior deficit), as well as patient subjective reports of tonguethickness (dysarthria as a prior stroke deficit). The patient reported to the MD that her symptoms are rapidly improving but not quite completely back to her new baseline. Upon chart review, patient presented to the emergency department 01/2024 with similar symptoms which included worsening of her baseline deficits including right facial droop, dysarthria, right-sided numbness, unsteady gait. This was in the setting of hypertensive urgency with initial presenting blood pressure of 225/98. MRI was obtained at that time which did not demonstrate new ischemic stroke. Vitals BP: (!) 179/83 Pulse: 80 Resp: 18 Temp: 98.5 ??F (36.9 ??C) Weight: 60 kg (132 lb 4.4 oz) Stroke Code Data (for stroke code without tele) Stroke code activated 01/30/25 1633 Stroke provider first response 01/30/25 1635 Last known normal 01/30/25 1400 Time of discovery (or onset of symptoms) 01/30/[address] read by Stroke Neuro Provider 01/30/25 8821 Was stroke code de-escalated? Yes 01/30/[address] head: No acute intracranial abnormality. Chronic appearing left centrum semiovale hypodensity coinciding with MRI brain from 12/08/2024 CTA head/neck: No large vessel occlusion. Diminutive left vertebral artery. Stenosis of the left A1ACA stable compared to MRA from 12/08/2024. Stenosis of the right M2 stable compared to prior from 12/08/2024 Intravenous Thrombolysis Not given due to: - minor/isolated/quickly resolving symptoms - stroke mimic: Recrudescence of prior stroke symptoms, hypertensive urgency Endovascular Treatment Not initiated due to absence of proximal vessel occlusion Impression Miya Restrepo is a 74-year-old female past medical history notable for HTN, HLD, SHERRIE, CKD, mast cell activation syndrome, SVT, left subcortical infarct 06/2023 with chronic deficits including right facial droop, dysarthria, right-sided numbness, unsteady gait who is now presenting with worsening of her baseline symptoms including dysarthria and right facial numbness. LKW 1400. Patient's symptoms include worsening of baseline dysarthria and right facial numbness. CTof the head did not demonstrate any acute intracranial abnormality. CTA of the head and neck did not demonstrate large vessel occlusion however did demonstrate stable multifocal intracranial stenoses. Per ED MD examination patient reported a 7/10 headache and demonstrated RUE ataxia, RUE drift, right face and arm numbness (all of which are symptoms of her prior stroke). She does have these deficits chronically but were worse compared to her baseline. She reported to ED MD that her symptoms wereimproving significantly although not quite back to her baseline. Since her symptoms were improving r apidly, appeared to be return of prior stroke symptoms (in association with headache and BP 200/93 upon arrival), and suspected stroke mimic (prior stroke symptoms, hypertensive urgency, migraine) she was deemed not a candidate for IV thrombolytic. She did not have a large vessel occlusion for consideration of EVT. Code stroke was de-escalated at this time. # History of left subcortical ischemic stroke # Baseline deficits from prior stroke # Acute on chronic right facial numbness and dysarthria Recommendations -Obtain MRI brain with and without IV contrast My recommendations are based on the information provided over the phone by Miya Restrepo's in-person providers. They are not intended to replace the clinical judgment of her in-person providers. I was not requested to personally see or examine the patient at this time. The Stroke Staff is Dr. Bain. Jadon Napoles. MD [facility] V[facility] Neurology Fellow To page me or covering stroke neurology steamer operator, click here: [employer] Choose Helicopter Dispatcher tab at top, then select NEUROLOGY/ALL SITES from middle drop- down box, press Enter, then look for stroke or telestroke for your site. Cosigned by Raman Bain MD at 02/02/2025 11:58 PM THIRD LOADER D LOADER D LOADER Associated attestation - Raman Bain MD - 02/02/2025 11:58 PM THIRD LOADER Vascular Neurology Attending Physician Attestation I agree with the note below. Raman Bain MD, MS Vascular Neurology documented in this encounter ED Notes * Andrea Gamboa - 01/30/2025 4:43 PM CST Emergency Department Note History of Present Illness Chief Complaint Slurred Speech and Numbness HPI Miya Restrepo is a 74 year old female with a history of stroke, hypertension, hyperlipidemia, SVT, amongst others presenting with slurred speech and numbness. The patient reports she was at physical therapy today at 1430 when her therapist stated, your words are not coming out right. They're toothick. Miya's reports her stroke episode today has similar symptoms and is more severe than the prior episodes. Miya describes the episode also presented as right facial numbness, a gradually worsening headache, bilateral ear ringing, and heart flutters. Her headache initially presented as a 7/10. Upon examination, her facial numbness and verbiage has improved. Her tongues still feels a little thick. Miya explains prior to today's episode she had halted taking metoprolol for a dayand half due to experiencing shortness of breath and neck pain as a side effect. She took a half-dose last night so as to not stop the medication completely as recommended by her eviscerator. Right-sided weakness is not new due to her history of strokes. Miya endorses severe neck pain and mild britton rtness of breath. Denies fever, chills, runny nose, congestion, cough, nausea, vomiting, abdominal pain, or urinary issues. Independent Historian as detailed above. Review of External Notes I reviewed a 01/08/25 ED note from chest pain. Chest pressure and left arm pain. Past Medical History Medical History and Problem List Stroke Coronary artery disease Hyperlipidemia Hypertension Esophageal reflux Supraventricular tachycardia Mast cell activation syndrome Raynaud's syndrome Thrombophlebitis Dysarthria Irritable bowel syndrome Sleep apnea Osteoarthritis Transient ischemic attack Medications Aspirin 81mg Alprazolam Famotidine Furosemide Metoprolol Nitroglycerin Surgical History Cholecystectomy Esophagogastroduodenoscopy Physical Exam Patient Vitals for the past 24 hrs: BP Temp Temp src Pulse Resp SpO2 Weight 01/30/252200 -- -- -- 63 -- -- -- 01/30/252199 (!) 156/92 -- -- 70 -- -- -- 01/30/252149 -- -- -- 74 -- -- -- 01/30/252144 (!) 162/86 -- -- 71 -- -- -- 01/30/252129 (!) 164/81 -- -- 67 -- -- -- 01/30/252115 -- -- -- -- -- 94 % -- 01/30/252114 (!) 152/86 -- -- 66 -- -- -- 01/30/252044 (!) 159/86 -- -- 69 -- 93 % -- 01/30/252039 -- -- -- 68 -- 95 % -- 01/30/252034 -- -- -- 68 -- 97 % -- 01/30/252029 (!) 155/84 -- -- 67 -- 96 % -- 01/30/251948 -- -- -- 67 -- 94 % -- 01/30/251943 (!) 145/65 -- -- 65 -- 97 % -- 01/30/251933 -- -- -- 67 -- 94 % -- 01/30/25 192 (!) 149/71 -- -- 66 -- 96 % -- 01/30/251918 -- -- -- 67 -- 95 % -- 01/30/25 191 (!) 148/76 -- -- 70 -- 96 % -- 01/30/25 1854 (!) 146/71 -- -- 60 -- 95 % -- 01/30/25 1824 (!) 148/86 -- -- 68 -- 95 % -- 01/30/25 1809 138/87 -- -- 66 -- 96 % -- 01/30/25 1754 (!) 156/85 -- -- 68 -- 96 % -- 01/30/25 1739 (!) 151/106 -- -- 60 -- 96 % -- 01/30/25 1703 (!) 179/83 -- -- 80 -- 97 % -- 01/30/25 1636 (!) 200/94 98.5 ??F (36.9 ??C) Temporal 83 18 99 % 60 kg (132 lb 4.4 oz) Physical Exam Constitutional: General: Not in acute distress. Appearance: Normal appearance HENT: Head: Normocephalic and atraumatic. Eyes: Extraocular Movements: Extraocular movements intact. Conjunctiva/sclera: Conjunctivae normal. Pupils: Pupils are equal, round, and reactive to light. Cardiovascular: Rate and Rhythm: Normal rate and regular rhythm. Pulmonary: Effort: Pulmonary effort is normal. Breath sounds: Normal breath sounds. Abdominal: General: Abdomen is flat. There is no distension. Palpations: Abdomen is soft. Tenderness: There is no abdominal tenderness. Musculoskeletal: Cervical back: Normal range of motion and neck supple. No rigidity. General: No swelling or deformity. Skin: General: Skin is warm and dry. Neurological: General: Patient alert and keenly responsive. Able to answer month and age. Able and blink eyes andsqueeze hands. No gaze palsy. No visual field deficits. No facial palsy. Mild right arm drift but does not hit bed. Mild right leg drift but does not hit bed. Mild right upper extremity and right lower extremity ataxia. Slightly diminished sensation to palpation of the right sided face, arm, and leg. No language deficits/aphasia. No dysarthria. No extinction/inattention. Mental Status: Alert and oriented to person, place, and time. Psychiatric: Mood and Affect: Mood normal. Diagnostics Lab Results Labs Ordered and Resulted from Time of ED Arrival to Time of ED Departure BASIC METABOLIC PANEL (LIMITED OCCURRENCES) - Abnormal Result Value Sodium 141 Potassium 3.7 Chloride 103 Carbon Dioxide (CO2) 25 Anion Gap 13 Urea Nitrogen 16.4 Creatinine 0.75 GFR Estimate 83 Calcium 9.4 Glucose 112 (*) GLUCOSE BY METER - Abnormal GLUCOSE BY METER POCT 112 (*) INR - Normal INR 0.97 PT 12.8 PARTIAL THROMBOPLASTIN TIME - Normal aPTT 33 TROPONIN T, HIGH SENSITIVITY - Normal Troponin T, High Sensitivity <6 ROUTINE UA WITH MICROSCOPIC REFLEX TO CULTURE - Normal Color Urine Straw Appearance Urine Clear Glucose Urine Negative Bilirubin Urine Negative Ketones Urine Negative Specific Catlett Urine 1.010 Blood Urine Negative pH Urine 6.5 Protein Albumin Urine Negative Urobilinogen Urine Normal Nitrite Urine Negative Leukocyte Esterase Urine Negative RBC Urine <1 WBC Urine 1 Squamous Epithelials Urine <1 GLUCOSE MONITOR NURSING POCT CBC WITH PLATELETS AND DIFFERENTIAL WBC Count 6.34 RBC Count 4.65 Hemoglobin 13.9 Hematocrit 40.8 MCV 87.7 MCH 29.9 MCHC 34.1 RDW 13.1 Platelet Count 225 % Neutrophils 60.0 % Lymphocytes 29.3 % Monocytes 7.9 % Eosinophils 2.1 % Basophils 0.5 % Immature Granulocytes 0.2 NRBCs per 100 WBC 0.0 Absolute Neutrophils 3.81 Absolute Lymphocytes 1.86 Absolute Monocytes 0.50 Absolute Eosinophils 0.13 Absolute Basophils 0.03 Absolute Immature Granulocytes <0.03 Absolute NRBCs <0.03 Imaging MR Brain w/o & w Contrast Final Result IMPRESSION: 1. No acute intracranial abnormality. 2. Chronic right lentiform nucleus lacunar infarct. 3. 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 CTA Head Neck with Contrast Final Result IMPRESSION: HEAD CTA: 1. No new intracranial arterial large vessel occlusion compared to prior exams. 2. Multifocal intracranial arterial stenoses and occlusions described above similar compared to MRAbrain 12/08/2024 and CTA head and neck 01/27/2024 likely due to atherosclerotic vascular disease. Please above for discussion. NECK CTA: 1. Findings concerning for fibromuscular dysplasia described above. 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 2. Cervical artery stenoses described above secondary to atherosclerotic vascular disease. Please above discussion. 3. No cervical artery dissection. 4. No significant interval change compared to prior exams. Dr Andrea Gamboa was notified by Dr Alvaro Neves at 5:24 PM 01/30/2025 THIRD LOADER/CDT. CT Head w/o Contrast Final Result IMPRESSION: 1. No acute cranial hemorrhage identified. 2. No evidence CT acute infarct. Aspect score 10. 3. Chronic intracranial changes described above. Dr Andrea Gamboa was notified by Dr Alvaro Neves at 5:07 PM 01/30/2025 THIRD LOADER/CDT. EKG ECG results from 01/30/25 EKG 12-lead, tracing only Value Systolic Blood Pressure Diastolic Blood Pressure Ventricular Rate 70 Atrial Rate 70 MI Interval 144 QRS Duration 84 QT 390 QTc 421 P [place] 39 R AXIS 45 T [place] 59 Interpretation ECG Sinus rhythm Normal ECG When compared with ECG of 08-Jan-2025 19:51, ST elevation now present in Lateral leads Reviewed by Andrea Gamboa DO at 1831. Independent Interpretation None ED Course Medications Administered Medications iohexol (OMNIPAQUE) 350 MG/ML injectable solution 71 mL (71 mLs Intravenous $Given 01/30/25 164) And sodium chloride 0.9 % bag for CT scan flush (100 mLs As instructed $Given 01/30/251647) prochlorperazine (COMPAZINE) injection 5 mg (5 mg Intravenous $Given 01/30/25 174) diphenhydrAMINE (BENADRYL) injection 25 mg (25 mg Intravenous $Given 01/30/25 174) lactated ringers BOLUS 1,000 mL (0 mLs Intravenous Stopped 01/30/252013) gadobutrol (GADAVIST) injection 6 mL (6 mLs Intravenous $Given 01/30/252233) Procedures Procedures Discussion of Management Neurology, Dr. Gonzalez ED Course ED Course as of 01/30/25 2333 [facility] Jan 30, [address] Norwood from Stroke/Neuro regarding the patient's presentation and plan of care. 1656 I spoke with from Stroke/Neuro regarding the patient's presentation and plan of care. 165 I obtained the history and examined the patient as noted above. [address] Neves from Radiology regarding the patient's presentation and plan of care. 1713 I spoke with from Stroke/Neuro regarding the patient's presentation and plan of care.The stroke call is deescalated pending MRI. [address] Norwood from Stroke Neuro regarding the patient's presentation and plan of care. The CTAs were changed to MRAs. [address] Neves from Radiology regarding the patient's presentation and plan of care. Unchanged findings compared to prior. 1829 EKG 12-lead, tracing only Normal sinus rhythm. Rate of 70. Normal MI and QRS. Normal QTc. Early repolarization type appearance throughout leads. No acute ST elevation or depression as compared with 01/08/2025 EKG. Although prior EKG does have significant amount of artifact. 192 Patient passed swallow eval. 2123 I rechecked and updated the patient. Agreeable to MRI. 2309 Notified by ED computer operations technician that patient has been ambulating back and forth to the bathroom without difficulty. 2319 Case discussed with stroke neurology, they recommend discharge patient is back to baseline. 2327 On reevaluation, patient reports that her symptoms are back to baseline and patient feels comfortable discharge home. Patient will seek out a different neurologist to follow-up outpatient. Additional Documentation None Medical Decision Making / Diagnosis [facility] Diagnoses: None MIPS None [facility] Miya Restrepo is a 74-year-old female as described above presents to the emergency department with sudden worsening of prior stroke symptoms in which patient had worsening dysarthria, tongue thickness sensation, right-sided facial numbness with tingling that is worse from baseline. Patient baseline has right- sided deficits from prior stroke, but reports that symptoms today appear to be worse compared to baseline while at discal therapy. Last known well time around 1430. Patient also reportedly having some ambulation issues leading towards 1 side. On examination, patient hemodynamically stable. Nonseptic nontoxic appearing. Does have some diminished sensation to the right side of face, right arm, and right leg, but patient reports this may not be significantly different from her prior stroke lingering symptoms. Mild right arm drifting and right leg drifting and mild ataxia to the rightarm and right leg, but patient reports that this may also be near baseline since her prior stroke. At this time, patient reports her symptoms while at physical therapy is rapidly resolving, but still better. Patient also still has a right differential diagnosis considered includes, but not limited to, recrudescence of prior stroke, complex migraine, new CVA, neck vessel dissection, and metabolic derangements. Tier 1 stroke alert activated by picc nurse. Stroke team consulted. Tier 1 stroke orders placed. Stroke neurology reviewed CT imaging without acute findings and escalated stroke alert. Inthe meantime, will trial headache cocktail. Obtain MRI of the brain for further evaluation. Discussed care plan with patient and family at bedside who voiced understanding and agreement with plan. Answered all questions. Additional workup and orders as listed in chart. Ultimately, work up shows no acute findings on CT head, CTA head and neck, and MRI of the brain. Remainder of blood work unremarkable. Stroke neurology reviewed imaging and believes patient may be discharged home to outpatient neurology follow-up if back to baseline symptoms. Patient does endorse some mild improvement in headache after headache cocktail, but endorses symptoms otherwise is at baseline. Patient feels comfortable discharge home. Suspect most likely recrudescence of prior stroke symptoms. Discussed return precautions. Answered all questions. Patient voiced understanding and agreement with plan and comfortable discharge home to outpatient follow-up with her neurologist. Please refer to ED course above as part of continuation of MDM for details on the patient's treatment course and any potential changes or updates beyond my initial evaluation and MDM creation. Disposition The patient was discharged. Diagnosis ICD-10-CM 1. Dysarthria R47.1 2. Right facial numbness R20.0 3. Nonintractable headache, unspecified chronicity pattern, unspecified headache type R51.9 Discharge Medications New Prescriptions No medications on file Scribe Disclosure: I, Ne Alexis, am serving as a scribe at 5:51 PM on 01/30/2025 to document services personally performed by Andrea Gamboa DO based on my observations and the provider's statements to me. Andrea Gamboa DO 01/30/25 7766 D LOADER * Gabriella Jacome RN - 01/30/2025 4:38 PM CST Bed: ED33 Expected date: Expected time: Means of arrival: Comments: Tier 1 from [facility] D LOADER * Gracia Zayas RN - 01/30/2025 4:32 PM CST Pt was at PT around 1430. Started having slurred speech, right sided facial numbness, RUIZ, heart palpitations. Hx of stroke 9 months ago. Tier 1 code stroke called. BG 112. D LOADER D LOADER documented in this encounter Plan of Treatment Not on file documented as of this encounter Procedures Procedure NamePriorityDate/TimeAssociated DiagnosisCommentsMR BRAIN W/O & W TSJXNDTHESHF15/20/2025 10:31 PM THIRD LOADER EKG 12-LEAD, TRACING ZEYNYKDV76/20/2025 4:59 PM THIRD LOADER EXTRA EYPFMRBM56/20/2025 4:56 PM THIRD LOADER EXTRA RED TOP SLWGGBCO94/20/2025 4:56 PM THIRD LOADER CBC WITH PLATELETS AND YRKVEPITJYJQVSIF03/20/2025 4:56 PM THIRD LOADER CBC WITH PLATELETS AND DIFFERENTIAL (LIMITED OCCURRENCES)STAT104/01/2024 4:56 PM THIRD LOADER BASIC METABOLIC PANEL (LIMITED OCCURRENCES)STAT104/01/2024 4:56 PM THIRD LOADER TROPONIN T, HIGH ABGPFRZLREWUVGM53/20/2025 4:56 PM THIRD LOADER ROUTINE UA WITH MICROSCOPIC REFLEX TO MNOSDUKCGIF70/20/2025 4:56 PM THIRD LOADER OZJLWMW7501/30/2025 4:56 PM THIRD LOADER PARTIAL THROMBOPLASTIN DWYOQFIJ21/20/2025 4:56 PM THIRD LOADER CTA HEAD NECK W IYONTRSNYCDE65/20/2025 4:[address] HEAD W/O ACZFUKXMNEVD70/20/2025 4:52 PM THIRD LOADER GLUCOSE BY MQPKVJZBQ46/20/2025 4:32 PM THIRD LOADER documented in this encounter Results * MR Brain w/o & w Contrast (01/30/2025 10:31 PM THIRD LOADER)Anatomical RegionLaterality ModalityHead, SUBRAD MR NEURO, UMP MR NEURO, RAD MRMagnetic ResonanceSpecimen (Source)Anatomical Location / LateralityCollection Method / VolumeCollection TimeReceived Time01/30/2025 10:31 PM THIRD LOADER Impressions 01/30/2025 11:10 PM THIRD LOADER IMPRESSION: 1. ??No acute intracranial abnormality. 2. ??Chronic right lentiform nucleus lacunar infarct. 3. 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 Narrative 01/30/2025 11:10 PM THIRD LOADER EXAM: MR BRAIN W/O and W CONTRAST LOCATION: [facility] DATE: 01/30/2025 INDICATION: Slurred speech, right facial numbness, history of CVA COMPARISON: MRI brain 12/08/2024 CONTRAST: 6 mL Gadavist TECHNIQUE: Routine multiplanar multisequence head MRI without and with intravenous contrast. FINDINGS: INTRACRANIAL CONTENTS: No acute or subacute infarct. No mass, acute hemorrhage, or extra-axial fluid collections. Chronic lacunar infarct in the right lentiform nucleus. 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 Mild generalized cerebral atrophy. No hydrocephalus. Normal position of the cerebellar tonsils. No pathologic contrast enhancement. SELLA: No abnormality accounting for technique. OSSEOUS STRUCTURES/SOFT TISSUES: Normal marrow signal. The major intracranial vascular flow voids are maintained. ORBITS: No abnormality accounting for technique. SINUSES/MASTOIDS: No paranasal sinus mucosal disease. No middle ear or mastoid effusion. Procedure Note Manny Padilla MD - 01/30/2025 EXAM: MR BRAIN W/O and W CONTRAST LOCATION: [facility] DATE: 01/30/2025 INDICATION: Slurred speech, right facial numbness, history of CVA COMPARISON: MRI brain 12/08/2024 CONTRAST: 6 mL Gadavist TECHNIQUE: Routine multiplanar multisequence head MRI without and with intravenous contrast. FINDINGS: INTRACRANIAL CONTENTS: No acute or subacute infarct. No mass, acutehemorrhage, or extra-axial fluid collections. Chronic lacunar infarct inthe right lentiform nucleus. Chronic left moore radiata infarct withWallerian degeneration. Mild generalized cerebral atrophy. No hydrocephalus. Normal position of the cerebellartonsils. No pathologic contrast enhancement. SELLA: No abnormality accounting for technique. OSSEOUS STRUCTURES/SOFT TISSUES: Normal marrow signal. The majorintracranial vascular flow voids are maintained. ORBITS: No abnormality accounting for technique. SINUSES/MASTOIDS: No paranasal sinus mucosal disease. No middle ear ormastoid effusion. IMPRESSION: 1. No acute intracranial abnormality. 2. Chronic right lentiform nucleus lacunar infarct. 3. 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 Authorizing ProviderResult TypeResult StatusFerris [facility] MRI ORDERABLESFinal Result * EKG 12-lead, tracing only (01/30/2025 4:59 PM THIRD LOADER)ComponentValueRef RangeTest MethodAnalysis TimePerformed AtPathologist SignatureSystolic Blood Pressure mmHgRADIOLOGY RESULTSDiastolic Blood PressuremmHgRADIOLOGY RESULTSVentricular Gcrt47MTZOTPFVZCXJ RESULTSAtrial Wotj30ZWQMWTLGIIFV RESULTSPR Galaoito942to RADIOLOGY RESULTSQRS Mmlalhfk82vnHIXLXRLZF GOBTTCQQI049gbRUAKSCEVV RESULTSQTc 421msRADIOLOGY RESULTSP Xitz91cgqtuvdLGAUYMQBK RESULTSR LQAU39dyaimkyPPHOAJBUS RESULTST Oliy22pyhjumaTMDKZBHHE RESULTSInterpretation ECGSinus rhythm Normal ECG When compared with ECG of 08-Jan-2025 19:51, ST elevation now present in Lateral leads Confirmed by SEE ED PROVIDER NOTE FOR, ECG INTERPRETATION (4000), clinical editor PIYUSH SAAVEDRA ([id number]) on 01/31/2025 7:21:49 AM RADIOLOGY RESULTSSpecimen (Source)Anatomical Location / LateralityCollection Method / VolumeCollection TimeReceived Time01/30/2025 4:59 PM CST01/31/2025 7:21 AM THIRD LOADER Narrative Authorizing ProviderResult TypeResult StatusFerris [facility] DOECG ORDERABLESEdited Result - FinalPerforming OrganizationAddressCity/State/ZIP CodePhone Number RADIOLOGY RESULTS * UA with Microscopic reflex to Culture (01/30/2025 4:56 PM THIRD LOADER)ComponentValue Ref RangeTest MethodAnalysis TimePerformed AtPathologist SignatureColor Urine StrawColorless, Straw, Light Yellow, Gdlasq0501/30/2025 5:08 PM [facility] Appearance OfgidSwapkBfchj90/20/2025 5:08 PM [facility] LABORATORYGlucose Urine NegativeNegative mg/dL01/30/2025 5:08 PM [facility] LABORATORYBilirubin Urine ZvmnunkxHmrmprno87/20/2025 5:08 PM [facility] LABORATORYKetones UrineNegative Negative mg/dL01/30/2025 5:08 PM [facility] LABORATORYSpecific Catlett Urine1.010 1.003 - 1.6158101/30/2025 5:08 PM [facility] LABORATORYBlood UrineNegativeNegative 01/30/2025 5:08 PM [facility] LABORATORYpH Urine6.55.0 - 7. 5:08 PM [facility] LABORATORYProtein Albumin UrineNegativeNegative mg/dL01/30/2025 5:08 PM [facility] LABORATORYUrobilinogen UrineNormalNormal mg/dL01/30/2025 5:08 PM [facility] LABORATORYNitrite TbpssKhekauklOjkfkkcj61/20/2025 5:08 PM [facility] Leukocyte Esterase EzpukGuotaszxBwmofkas57/20/2025 5:08 PM [facility] LABORATORYRBC Urine<1<=2 /HPF01/30/2025 5:08 PM [facility] LABOR[facility]ORYWBC Urine1<=5 /HPF01/30/2025 5:08 PM [facility] LABORATORYSquamous Epithelials Urine<1<=1 /HPF01/30/2025 5:08 PM [facility] LABORATORYSpecimen (Source)Anatomical Location / LateralityCollection Method / VolumeCollection TimeReceived TimeUrineURINE SPECIMEN OBTAINED BY CLEAN CATCH PROCEDURE / UnknownNon-blood Collection / Crzbkgn2801/30/2025 4:56 PM CST01/30/2025 5:01 PM THIRD LOADER Narrative [facility] - 01/30/2025 5:08 PM [facility] Urine Culture not indicated Authorizing ProviderResult TypeResult StatusFerris Yenadeem DOLAB - URINE ORDERABLES Final ResultPerforming OrganizationAddressCity/State/ZIP CodePhone Number [facility] [address] [facility] Lab (1st floor, no room number) [place] [address] * Extra Red Top Tube (01/30/2025 4:56 PM THIRD LOADER)ComponentValueRef RangeTest Method Analysis TimePerformed AtPathologist SignatureHold HwfmbnzkUEN46/20/2025 6:05 PM [facility] LABORATORYSpecimen (Source)Anatomical Location / LateralityCollection Method / VolumeCollection TimeReceived TimeBloodBLOOD SPECIMEN / Unknown Venipuncture / Fzglwju5301/30/2025 4:56 PM CST01/30/2025 5:01 PM THIRD LOADER Narrative Authorizing ProviderResult TypeResult StatusFermartha Gamboa DOLAB - BLOOD ORDERABLES Final ResultPerforming OrganizationAddressCity/State/ZIP CodePhone Number [facility] [address] [facility] Lab (1st floor, no room number) [place] [phone] * CBC with platelets and differential (01/30/2025 4:56 PM THIRD LOADER)ComponentValueRef RangeTest MethodAnalysis TimePerformed AtPathologist SignatureWBC Count6.34 4.00 - 11.00 10e3/uL01/30/2025 5:04 PM [facility] LABORATORYRBC Count4.653.80 - 5.20 10e6/uL01/30/2025 5:04 PM [facility] NIHWRAPCJZBwpiispfvv51.911.7 - 15.7 g/dL 01/30/2025 5:04 PM [facility] VTEMODCZSSTcftpwavwf02.835.0 - 47.0 %01/30/2025 5:04 PM [facility] TRNMWFCXZMRMQ11.778.0 - 100.0 fL01/30/2025 5:04 PM [facility] MCH29.926.5 - 33.0 pg01/30/2025 5:04 PM [facility] RGVSBEJAQOEEFW87.131.5 - 36.5 g/dL01/30/2025 5:04 PM [facility] GMRNHXBRZMCQF75.110.0 - 15.0 %01/30/2025 5:04 PM [facility] LABORATORYPlatelet Fwhwm422696 - 450 10e3/uL01/30/2025 5:04 PM [facility]% Nnsheoshtsn81.0%01/30/2025 5:04 PM [facility]% Lymphocytes 29.3%01/30/2025 5:04 PM [facility]% Monocytes7.9%01/30/2025 5:04 PM THIRD LOADER LABORATORY% Eosinophils2.1%01/30/2025 5:04 PM [facility]% Basophils 0.5%01/30/2025 5:04 PM [facility]% Immature Granulocytes0.2%01/30/2025 5:04 PM [facility] LABORATORYNRBCs per 100 WBC0.0<1.0 /1440001/30/2025 5:04 PM [facility] LABORATORYAbsolute Neutrophils3.811.60 - 8.30 10e3/uL01/30/2025 5:04 PM [facility] LABORATORYAbsolute Lymphocytes1.860.80 - 5.30 10e3/uL01/30/2025 5:04 PM [facility] LABORATORYAbsolute Monocytes0.500.00 - 1.30 10e3/uL01/30/2025 5:04 PM [facility] LABORATORYAbsolute Eosinophils0.130.00 - 0.70 10e3/uL01/30/2025 5:04 PM [facility] LABORATORYAbsolute Basophils0.030.00 - 0.20 10e3/uL01/30/2025 5:04 PM [facility] LABORATORYAbsolute Immature Granulocytes<0.03<=0.40 10e3/uL01/30/2025 5:04 PM [facility] LABORATORYAbsolute NRBCs<0.0310e3/uL01/30/2025 5:04 PM [facility] Specimen (Source)Anatomical Location / LateralityCollection Method / Volume Collection TimeReceived TimeBloodBLOOD SPECIMEN / UnknownVenipuncture / Dlhcynu5001/30/2025 4:56 PM CST01/30/2025 5:01 PM [facility] Narrative Authorizing ProviderResult TypeResult StatusFerris [facility] DOLAB - BLOOD ORDERABLES Final ResultPerforming OrganizationAddressCity/State/ZIP CodePhone Number LABORATORY [facility] [address] [facility] ([facility], no room number) [place] [address], [facility] * Troponin T, High Sensitivity (01/30/2025 4:56 PM THIRD LOADER)ComponentValueRef Range Test MethodAnalysis TimePerformed AtPathologist SignatureTroponin T, High Sensitivity<6<=14 ng/L104/01/2024 5:57 PM [facility] LABORATORYComment: Either a High Sensitivity Troponin T [...] / LateralityCollection Method / Volume Collection TimeReceived TimeBloodBLOOD SPECIMEN / UnknownVenipuncture / Unknown 01/30/2025 4:56 PM CST01/30/2025 5:01 PM THIRD LOADER Narrative Authorizing ProviderResult TypeResult StatusFerris Cooper DOLAB - BLOOD ORDERABLES Final ResultPerforming OrganizationAddressCity/State/ZIP CodePhone Number [facility] [address] [facility] Lab (1st floor, no room number) [place] [address], [facility] * Partial thromboplastin time (01/30/2025 4:56 PM THIRD LOADER)ComponentValueRef Range Test MethodAnalysis TimePerformed AtPathologist NnhutdkncfYEE0543 - 38 Seconds 01/30/2025 5:21 PM [facility] LABORATORYSpecimen (Source)Anatomical Location / LateralityCollection Method / VolumeCollection TimeReceived TimeBloodBLOOD SPECIMEN / UnknownVenipuncture / Bkxfhmk7201/30/2025 4:56 PM CST01/30/2025 5:01 PM THIRD LOADER Narrative Authorizing ProviderResult TypeResult StatusFerris Yeh DOLAB - BLOOD ORDERABLES Final ResultPerforming OrganizationAddressCity/State/ZIP CodePhone Number [facility] [address] Lab (1st floor, no room number) [place] [address], [facility] * INR (01/30/2025 4:56 PM THIRD LOADER)ComponentValueRef RangeTest MethodAnalysis Time Performed AtPathologist SignatureINR0.970.85 - 1.15104/01/2024 5:21 PM CST JDFHHEWAHLEH26.811.8 - 14.8 Vxhatwn2501/30/2025 5:21 PM [facility] LABORATORYSpecimen (Source)Anatomical Location / LateralityCollection Method / VolumeCollection TimeReceived TimeBloodBLOOD SPECIMEN / UnknownVenipuncture / Xdqfjak1701/30/2025 4:56 PM CST01/30/2025 5:01 PM THIRD LOADER Narrative Authorizing ProviderResult TypeResult StatusFerris [facility] DOLAB - BLOOD ORDERABLES Final ResultPerforming OrganizationAddressCity/State/ZIP CodePhone Number [facility] [address] [facility] Lab (1st floor, no room number) [place] [address], [facility] * (ABNORMAL) Basic Metabolic Panel (Limited Occurrences) (01/30/2025 4:56 PM THIRD LOADER)ComponentValueRef RangeTest MethodAnalysis TimePerformed AtPathologist ZvgvslserDlqmob428635 - 145 mmol/L104/01/2024 5:57 PM [facility] LABORATORYPotassium 3.73.4 - 5.3 mmol/L104/01/2024 5:57 PM CST FAGUJAYVTQTvtrgluf21011 - 107 mmol/L104/01/2024 5:57 PM [facility] LABORATORYCarbon Dioxide (CO2)2522 - 29 mmol/L 01/30/2025 5:57 PM [facility] LABORATORYAnion Gbb731 - 15 mmol/L104/01/2024 5:57 PM [facility] LABORATORYUrea Wixfmyhy10.48.0 - 23.0 mg/dL01/30/2025 5:57 PM [facility] LABORATORYCreatinine0.750.51 - 0.95 mg/dL01/30/2025 5:57 PM [facility] GFR Mpcnqkrt61>60 mL/min/1.39u52201/30/2025 5:57 PM [facility] LABORATORYComment:eGFR calculated using 2020 CKD-EPI equation.Calcium9.48.8 - 10.4 mg/dL01/30/2025 5:57 PM CSTRH OYSSOSYTJBMmspamj289(H)70 - 99 mg/dL01/30/2025 5:57 PM [facility] LABORATORYSpecimen (Source)Anatomical Location / LateralityCollection Method / VolumeCollection TimeReceived TimeBloodBLOOD SPECIMEN / UnknownVenipuncture / Lyqyflf9401/30/2025 4:56 PM CST01/30/2025 5:01 PM THIRD LOADER Narrative Authorizing ProviderResult TypeResult StatusFermartha Gamboa DOLAB - BLOOD ORDERABLES Final ResultPerforming OrganizationAddressCity/State/ZIP CodePhone Number [facility] [address] [facility] Lab (1st floor, no room number) [place] [address] * CTA Head Neck with Contrast (01/30/2025 4:52 PM THIRD LOADER)Anatomical Region LateralityModalityHead, SUBRAD CT NEURO, SUBRAD CT NEURO, UMP CT NEURO, RAD CT Computed TomographySpecimen (Source)Anatomical Location / LateralityCollection Method / VolumeCollection TimeReceived Time01/30/2025 4:52 PM THIRD LOADER Impressions 01/30/2025 5:28 PM THIRD LOADER IMPRESSION: HEAD CTA: 1. ??No new intracranial arterial large vessel occlusion compared to prior exams. 2. ??Multifocal intracranial arterial stenoses and occlusions described above similar compared to MRA brain 12/08/2024 and CTA head and neck 01/27/2024 likely due to atherosclerotic vascular disease. Please above for discussion. NECK CTA: 1. ??Findings concerning for fibromuscular dysplasia described above. 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 2. ??Cervical artery stenoses described above secondary to atherosclerotic vascular disease. Pleaseabove discussion. 3. ??No cervical artery dissection. 4. ??No significant interval change compared to prior exams. Dr Andrea Gamboa was notified by Dr Alvaro Neves at ??5:24 PM 01/30/2025 THIRD LOADER/CDT. Narrative 01/30/2025 5:28 PM THIRD LOADER EXAM: CTA HEAD NECK W CONTRAST LOCATION: [facility] DATE: 01/30/2025 INDICATION: Code Stroke, evaluate for LVO. Right facial numbness. Slurred speech. Headache. COMPARISON: CTA head and neck 01/27/2024, MRA head and neck 11/30/2024 CONTRAST: 71mL Zzhpubqkp812 TECHNIQUE: Head and neck CT angiogram with IV contrast. Axial helical CT images of the head and neck vessels obtained during the arterial phase of intravenous contrast administration. Axial 2D reconstructed images and multiplanar 3D MIP reconstructed images of the head and neck vessels were performed by the technologist. Dose reduction techniques were used. All stenosis measurements made according to NASCET criteria unless otherwise specified. FINDINGS: HEAD CTA: Right distal carotid siphon mild stenosis secondary to calcified plaque. Hypoplastic left proximal A1 segment occlusion/near occlusion with reconstitution similar compared to MRA brain 12/08/2024. Proximal M1 focal severe stenosis. Right mid M1 moderate focal stenosis. Right proximal M2 segmentsdemonstrate multiple severe stenoses. Findings are similar compared to CTA head and neck 01/27/2024. Left proximal M1 focal severe stenosis. Left distal M1 focal moderate stenosis. Left proximal M2 inferior division moderate focal stenosis. Findings are similar compared to CTA had and neck 01/27/2024. Right P2 moderate focal stenosis. Right P2/P3 branch artery several focal severe stenoses. Findingssimilar to prior CTA head and neck 01/27/2024. Left distal P2 and several left P3 segments demonstrate multiple focal severe stenoses similar to prior examination. No additional significant stenosis or occlusion. ?? No brain aneurysm. No AVM/AVF. Severely hypoplastic left A1 segment. Severely hypoplastic left V4 segment likely terminates in left PICA. Findings appear similar compared to prior CTA head and neck 01/27/2024. Right origin [employer] NECK CTA: Right mid to distal cervical ICA mild irregularity concerning for fibromuscular dysplasia. 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 RIGHT CAROTID: Atherosclerotic plaque results in less than 50% stenosis in the right proximal cervical ICA. No dissection. LEFT CAROTID: No significant stenosis/occlusion. No dissection. VERTEBRAL ARTERIES: Dominant right vertebral artery. Severely hypoplastic left vertebral artery. Right vertebral artery origin mild stenosis. Left vertebral artery origin suboptimally evaluated. Left V1 segment and left proximal V2 segment suboptimally evaluated due to venous contamination and streak artifact. Left distal V3 segment moderate stenosis similar to prior examination. Otherwise, no significant stenosis or occlusion. No dissection. ?? AORTIC ARCH: Classic aortic arch anatomy. Left proximal subclavian artery mild stenosis. Right proximal subclavian artery mild stenosis. ARTERIAL PLAQUE: Calcified/noncalcified plaque noted throughout portions of the arterial system. NONVASCULAR STRUCTURES: Multilevel spondylosis worse at C5-6. Procedure Note Alvaro Neves MD - 01/30/2025 EXAM: CTA HEAD NECK W CONTRAST LOCATION: [facility] DATE: 01/30/2025 INDICATION: Code Stroke, evaluate for LVO. Right facial numbness. Slurredspeech. Headache. COMPARISON: CTA head and neck 01/27/2024, MRA head and neck 11/30/2024 CONTRAST: 71mL Fuydxdusf813 TECHNIQUE: Head and neck CT angiogram with IV contrast. Axial helical CTimages of the head and neck vessels obtained during the arterial phase ofintravenous contrast administration. Axial 2D reconstructed images andmultiplanar 3D MIP reconstructed images of the head and neck vessels were performed by the technologist.Dose reduction techniques were used. All stenosis measurements madeaccording to NASCET criteria unless otherwise specified. FINDINGS: HEAD CTA: Right distal carotid siphon mild stenosis secondary to calcified plaque. Hypoplastic left proximal A1 segment occlusion/near occlusion withreconstitution similar compared to MRA brain 12/08/2024. Proximal M1 focal severe stenosis. Right mid M1 moderate focal stenosis.Right proximal M2 segments demonstrate multiple severe stenoses. Findingsare similar compared to CTA head and neck 01/27/2024. Left proximal M1 focal severe stenosis. Left distal M1 focal moderatestenosis. Left proximal M2 inferior division moderate focal stenosis.Findings are similar compared to CTA had and neck 01/27/2024. Right P2 moderate focal stenosis. Right P2/P3 branch artery several focalsevere stenoses. Findings similar to prior CTA head and neck 01/27/2024. Left distal P2 and several left P3 segments demonstrate multiple focalsevere stenoses similar to prior examination. No additional significant stenosis or occlusion. No brain aneurysm. No AVM/AVF. Severely hypoplastic left A1 segment. Severely hypoplastic left V4 segmentlikely terminates in left PICA. Findings appear similar compared to priorCTA head and neck 01/27/2024. Right origin [employer] NECK CTA: Right mid to distal cervical ICA mild irregularity concerning forfibromuscular dysplasia. Bilateral distal cervical ICAs demonstratefusiform aneurysms. RIGHT CAROTID: Atherosclerotic plaque results in less than 50% stenosis in the rightproximal cervical ICA. No dissection. LEFT CAROTID: No significant stenosis/occlusion. No dissection. VERTEBRAL ARTERIES: Dominant right vertebral artery. Severely hypoplastic left vertebralartery. Right vertebral artery origin mild stenosis. Left vertebral artery origin suboptimally evaluated. Left V1 segment andleft proximal V2 segment suboptimally evaluated due to venouscontamination and streak artifact. Left distal V3 segment moderatestenosis similar to prior examination. Otherwise, no significant stenosis or occlusion. No dissection. AORTIC ARCH: Classic aortic arch anatomy. Left proximal subclavian arterymild stenosis. Right proximal subclavian artery mild stenosis. ARTERIAL PLAQUE: Calcified/noncalcified plaque noted throughout portionsof the arterial system. NONVASCULAR STRUCTURES: Multilevel spondylosis worse at C5-6. IMPRESSION: HEAD CTA: 1. No new intracranial arterial large vessel occlusion compared to priorexams. 2. Multifocal intracranial arterial stenoses and occlusions describedabove similar compared to MRA brain 12/08/2024 and CTA head and neck01/27/2024 likely due to atherosclerotic vascular disease. Please abovefor discussion. NECK CTA: 1. Findings concerning for fibromuscular dysplasia described above.Bilateral distal cervical ICAs demonstrate fusiform aneurysms describedabove. 2. Cervical artery stenoses described above secondary to atheroscleroticvascular disease. Please above discussion. 3. No cervical artery dissection. 4. No significant interval change compared to prior exams. Dr Andrea Gamboa was notified by Dr Alvaro Neves at 5:24 PM 5CST/CDT. Authorizing ProviderResult TypeResult StatusFermartha Gamboa [facility] ORDERABLESFinal Result * CT Head w/o Contrast (01/30/2025 4:52 PM THIRD LOADER)Anatomical RegionLaterality ModalityHead, SUBRAD CT NEURO, SUBRAD CT NEURO, UMP CT NEURO, RAD CTComputed TomographySpecimen (Source)Anatomical Location / LateralityCollection Method / VolumeCollection TimeReceived Time01/30/2025 4:52 PM THIRD LOADER Impressions 01/30/2025 5:28 PM THIRD LOADER IMPRESSION: 1. ??No acute cranial hemorrhage identified. 2. ??No evidence CT acute infarct. Aspect score 10. 3. ??Chronic intracranial changes described above. Dr Andrea Gamboa was notified by Dr Alvaro Neves at ??5:07 PM 01/30/2025 THIRD LOADER/CDT. Narrative 01/30/2025 5:28 PM THIRD LOADER EXAM: CT HEAD W/O CONTRAST LOCATION: [facility] DATE: 01/30/2025 INDICATION: Code Stroke, rule out hemorrhage and evaluate for potential thrombolysis thrombectomy. Right facial numbness. Slurred speech. Headache. COMPARISON: MRI brain 11/30/2024 TECHNIQUE: Routine CT Head without IV contrast. Multiplanar reformats. Dose reduction techniques were used. FINDINGS: INTRACRANIAL CONTENTS: No intracranial hemorrhage, extraaxial collection, or mass effect. ??No CT evidence of acute infarct. Mild to moderate presumed chronic small vessel ischemic changes. Mild generalized volume loss. No hydrocephalus. Left frontoparietal deep white matter/left superior basal ganglia small chronic infarct. VISUALIZED ORBITS/SINUSES/MASTOIDS: No intraorbital abnormality. No paranasal sinus mucosal disease. No middle ear or mastoid effusion. BONES/SOFT TISSUES: No acute abnormality. Procedure Note Alvaro Neves MD - 01/30/2025 EXAM: CT HEAD W/O CONTRAST LOCATION: [facility] DATE: 01/30/2025 INDICATION: Code Stroke, rule out hemorrhage and evaluate for potential thrombolysis thrombectomy. Right facial numbness. Slurred speech.Headache. COMPARISON: MRI brain 11/30/2024 TECHNIQUE: Routine CT Head without IV contrast. Multiplanar reformats.Dose reduction techniques were used. FINDINGS: INTRACRANIAL CONTENTS: No intracranial hemorrhage, extraaxial collection,or mass effect. No CT evidence of acute infarct. Mild to moderatepresumed chronic small vessel ischemic changes. Mild generalized volumeloss. No hydrocephalus. Left frontoparietal deep white matter/left superior basal ganglia small chronic infarct. VISUALIZED ORBITS/SINUSES/MASTOIDS: No intraorbital abnormality. Noparanasal sinus mucosal disease. No middle ear or mastoid effusion. BONES/SOFT TISSUES: No acute abnormality. IMPRESSION: 1. No acute cranial hemorrhage identified. 2. No evidence CT acute infarct. Aspect score 10. 3. Chronic intracranial changes described above. Dr Andrea Gamboa was notified by Dr Alvaro Neves at 5:07 PM 5CST/CDT. Authorizing ProviderResult TypeResult StatusFerris Cooper DOIMG CT ORDERABLESFinal Result * (ABNORMAL) Glucose by meter (01/30/2025 4:32 PM THIRD LOADER)ComponentValueRef Range Test MethodAnalysis TimePerformed AtPathologist SignatureGLUCOSE BY METER POCT 112(H)70 - 99 mg/dL01/30/2025 4:39 PM [facility] LABORATORY POCComment:Dr/RN NotifiedSpecimen (Source)Anatomical Location / LateralityCollection Method / VolumeCollection TimeReceived TimeBlood, CapillaryBLOOD SPECIMEN / Unknown 01/30/2025 4:32 PM CST01/30/2025 4:39 PM THIRD LOADER Narrative Authorizing ProviderResult TypeResult StatusProvider UnknownLAB - BEAKER POCT Final ResultPerforming OrganizationAddressCity/State/ZIP CodePhone Number LABORATORY [facility] [address] [facility] (1st floor, no room number) [place] [address] documented in this encounter Visit Diagnoses Diagnosis Dysarthria- Primary Right facial numbness Disturbance of skin sensation Nonintractable headache, unspecified chronicity pattern, unspecified headache type documented in this encounter Administered Medications Medication OrderMAR ActionAction DateDoseRateSite diphenhydrAMINE (BENADRYL) injection 25 mg 25 mg, Intravenous, ONCE, On Amy 01/30/25 at 1710, For 1 dose $Given01/30/2025 5:40 PM CST25 mg gadobutrol (GADAVIST) injection 6 mL 6 mL, Intravenous, ONCE, On Amy 01/30/25 at 2205, For 1 dose, Supplied by, and administered by MRI. $Given01/30/2025 10:34 PM CST6 mLs iohexol (OMNIPAQUE) 350 MG/ML injectable solution 71 mL 71 mL, Intravenous, ONCE, On Amy 01/30/25 at 1640, For 1 dose, To be administered by Imaging staff during CTA Head/Neck scan. $Given01/30/2025 4:43 PM CST71 mLs lactated ringers BOLUS 1,000 mL Intravenous, 1,000 mL, ONCE, at 1,000 mL/hr, Administer over 1 Hours, On Amy 01/30/25 at 1710, For 1 dose $New Bag01/30/2025 5:39 PM CST1,000 [id number] mL/hr prochlorperazine (COMPAZINE) injection 5 mg 5 mg, Intravenous, ONCE, Administer over 1-2 Minutes, On Amy 01/30/25 at 1710, For 1 dose $Given01/30/2025 5:41 PM CST5 mg sodium chloride 0.9 % bag for CT scan flush As instructed, 100 mL, ONCE, On Amy 01/30/25 at 1640, For 1 dose, For use by Radiology to intermittently use as a flush for patients receiving a CT scan. $Given01/30/2025 4:48 PM [id number] mLsdocumented in this encounter Active and Recently Administered Medications Times are shown in THIRD LOADER.Medication Order/ diphenhydrAMINE (BENADRYL) injection 25 mg (COMPLETED) 25 mg, Intravenous, ONCE, On Amy 01/30/25 at 1710, For 1 dose * 1740 ($Given - Provider: Mindy Whitt, MARY) gadobutrol (GADAVIST) injection 6 mL (COMPLETED) 6 mL, Intravenous, ONCE, On Amy 01/30/25 at 2205, For 1 dose, Supplied by, and administered by MRI. * 2234 ($Given - Provider: Lyudmila Patino ARRT) iohexol (OMNIPAQUE) 350 MG/ML injectable solution 71 mL (COMPLETED)(Linked Group 1) 71 mL, Intravenous, ONCE, On Amy 01/30/25 at 1640, For 1 dose, To be administered by Imaging staff during CTA Head/Neck scan. * 1643 ($Given - Provider: BENITA GarciaT) lactated ringers BOLUS 1,000 mL (COMPLETED) Intravenous, 1,000 mL, ONCE, at 1,000 mL/hr, Administer over 1 Hours, On Amy 01/30/25 at 1710, For 1 dose * 1739 ($New Bag - Provider: Mindy Whitt RN) * 2013 (Stopped - Provider: Marielena Prieto RN) prochlorperazine (COMPAZINE) injection 5 mg (COMPLETED) 5 mg, Intravenous, ONCE, Administer over 1-2 Minutes, On Amy 01/30/25 at 1710, For 1 dose * 1741 ($Given - Provider: Mindy Whitt RN) sodium chloride 0.9 % bag for CT scan flush (COMPLETED)(Linked Group 1) As instructed, 100 mL, ONCE, On Amy 01/30/25 at 1640, For 1 dose, For use by Radiology to intermittently use as a flush for patients receiving a CT scan. * 1388 ($Given - Provider: CED Garcia) Order Group 1: iohexol (OMNIPAQUE) 350 MG/ML injectable solution 71 mL (COMPLETED)Jump to med 71 mL, Intravenous, ONCE, On Amy 01/30/25 at 1640, For 1 dose, To be administered by Imaging staff during CTA Head/Neck scan. And sodium chloride 0.9 % bag for CT scan flush (COMPLETED)Jump to med As instructed, 100 mL, ONCE, On Amy 01/30/25 at 1640, For 1 dose, For use by Radiology to intermittently use as a flush for patients receiving a CT scan. documented in this encounter Care Teams Team MemberRelationshipSpecialtyStart DateEnd Date Kyra Perera [address] [place] [address] PCP - GeneralPhysician Assistant03/31/22 Angel Hollins MD [address] [id number] Neurology07/20/23 Petra Dorado PA [address] [place], [place] [id number] Physician AssistantPhysical Medicine and Rehabilitation07/20/23 Angel Hollins MD [address] [id number] Assigned Neuroscience Provider08/03/23 Yves Ballard MD [address] [place] [id number] Assigned Heart and Vascular Provider12/04/23documented as of this encounter
--- OUTSIDE RECORDS SUMMARY | 2025-02-10 10:50 | XMS_ITS | Encounter Summary ---
Author Organization [facility] Address [address] [place] [id number] Care Team Providers Care Fashion Patternmaker Name Role Phone Kyra Perera Primary Care Provider [phone] Angel Hollins MD Unavailable Petra Dorado Unavailable [phone] Angel Hollins MD Unavailable Yves Ballard MD Unavailable + [phone] Reason for Visit * ReasonCommentsChest Pain Encounter Details DateTypeDepartmentCare Team (Latest Contact Info)Gqnyukdgjje10/01/2025 10:50 AM ASSISTANT GM OF CONTENT & DELIVERY - 02/10/2025 3:42 PM Rosie Bell [facility] Emergency Dept [address] [place] [id number] [phone] Jensen Jacob, DO [facility] [address] [place], [place] [id number] Chest pain, unspecified type (Primary Dx); Elevated blood pressure reading with diagnosis of hypertension Discharge Disposition: Home or Self Care Social History Tobacco UseTypesPacks/DayYears UsedDateSmoking Tobacco: NeverSmokeless Tobacco: NeverAlcohol UseStandard Drinks/WeekCommentsNot Currently0 (1 standard drink = 0.6 oz pure alcohol)PHQ-2AnswerDate RecordedPHQ-2 Azamf914dolescent EducationAnswerDate RecordedGetting School Help NeededNot on file12/25/2022 CommentsNoSex and Gender InformationValueDate RecordedSex Assigned at BirthNot on fileLegal QrgOcinil64/04/2012 3:34 AM CSTGender IdentityNot on file Sexual OrientationNot on filedocumented as of this encounter Last Filed Vital Signs Vital SignReadingTime TakenCommentsBlood Ftbubymw417/9302/10/2025 3:15 PM ASSISTANT GM OF CONTENT & DELIVERY Uzlmf675702/10/2025 3:15 PM CPJJazismztdez10.3 ??C (99.1 ??F)02/10/2025 10:56 AM CSTRespiratory Spxa640604/13/2024 12:45 PM CSTOxygen Hhvmdkbzmb06%02/10/2025 12:45 PM CSTInhaled Oxygen Concentration--Mrzxta33.1 kg (137 lb)02/10/2025 10:53 AM OWEPxmhmh882.5 cm (5' 2)02/10/2025 10:53 AM CSTBody Mass Index25.0602/10/2025 10:53 AM CSTdocumented in this encounter Functional Status * Calculated C-SSRS Risk Score (Lifetime/Recent)AnswerDate of AssessmentAuthorNo Risk Mibykjcue74/01/2025 10:52 AM Dulce Hebert RN * Wilson Suicide Severity Rating Scale (Screener/Recent Self-Report)Question AnswerDate of AssessmentAuthor1. Wish to be (Past 1 Month)No02/10/2025 10:52 AM Dulce Hebert RN2. Non-Specific Active Suicidal Thoughts (Past 1 Month)No02/10/2025 10:52 AM Dulce Hebert RN6. Suicidal Behavior (Lifetime)No02/10/2025 10:52 AM Dulce Hebert RN documented as of this encounter Discharge Instructions * Discharge Instructions* Jensen Jacob, - 02/10/2025 3:24 PM ASSISTANT GM OF CONTENT & DELIVERY Discharge Instructions Chest Pain You have been seen today for chest pain or discomfort. At this time, your provider has found no signs that your chest pain is due to a serious or life- threatening condition, (or you have declined more testing and/or admission to the hospital). However, sometimes there is a serious problem that doesnot show up right away. Your evaluation today may not be complete and you may need further testing and evaluation. Generally, every Emergency Department visit should have a follow-up clinic visit with either a primary or a specialty clinic/provider. Please follow-up as instructed by your emergency provider today. Return to the Emergency Department if: Your chest pain changes, gets worse, starts to happen more often, or comes with less activity. You are newly short of breath. You get very weak or tired. You pass out or faint. You have any new symptoms, like fever, cough, numb legs, or you cough up blood. You have anything else that worries you. Until you follow-up with your regular provider, please do the following: Take one aspirin daily unless you have an allergy or are told not to by your provider. If a stress test appointment has been made, go to the appointment. If you have questions, contact your regular provider. Follow-up with your regular provider/clinic as directed; this is very important. If you were given a prescription for medicine here today, be sure to read all of the information (including the package insert) that comes with your prescription. This will include important information about the medicine, its side effects, and any warnings that you need to know about. The pharmacist who fills the prescription can provide more information and answer questions you may have about the medicine. If you have questions or concerns that the pharmacist cannot address, please call or return to the Emergency Department. Remember that you can always come back to the Emergency Department if you are not able to see your regular provider in the amount of time listed above, if you get any new symptoms, or if there is anything that worries you. Discharge Instructions Hypertension - High Blood Pressure During you visit to the Emergency Department, your blood pressure was higher than the recommended blood pressure. This may be related to stress, pain, medication or other temporary conditions. In these cases, your blood pressure may return to normal on its own. If you have a history of high blood pressure, you may need to have your provider adjust your medications. Sometimes, your high measurement here may indicate that you have developed high blood pressure that will stay high unless it is treated. As a general rule, high blood pressure causes problems over years rather than days, weeks, or months. So, while it is important to treat blood pressure, it is rarely important to treat blood pres sure immediately. Occasionally we will begin a medication in the Emergency Department; more often we will recommend close follow-up for medications with a primary doctor/clinic. Generally, every Emergency Department visit should have a follow-up clinic visit with either a primary or a specialty clinic/provider. Please follow-up as instructed by your emergency provider today. Return to the Emergency Department if you start to have: A severe headache. Chest pain. Shortness of breath. Weakness or numbness that affects one part of the body. Confusion. Vision changes. Significant swelling of legs and/or eyes. A reaction to any medication started in the Emergency Department. What can I do to help myself? Avoid alcohol. Take any blood pressure medicine that you are prescribed. Get a good night???s sleep. Lower your salt intake. Exercise. Lose weight. Manage stress. See your doctor regularly If blood pressure medication was started in the Emergency Department: The medicine may not have an immediate effect. The body and brain determine what blood pressure youhave. The medicine???s job is to retrain the body???s ???thermostat?? to a lower blood pressure. You will need to follow up with your provider to see how this medicine is working for you. If you were given a prescription for medicine here today, be sure to read all of the information (including the package insert) that comes with your prescription. This will include important information about the medicine, its side effects, and any warnings that you need to know about. The pharmacist who fills the prescription can provide more information and answer questions you may have about the medicine. If you have questions or concerns that the pharmacist cannot address, please call or return to the Emergency Department. Remember that you can always come back to the Emergency Department if you are not able to see your regular provider in the amount of time listed above, if you get any new symptoms, or if there is anything that worries you. STANT GM OF CONTENT & DELIVERY documented in this encounter Medications at Time [...] by mouth daily.documented as of this encounter ED Notes * Dulce Hyatt, RN - 02/10/2025 3:13 PM CST [facility] ED Nurse Handoff Report ED Chief complaint: Chest Pain . ED Diagnosis: Final diagnoses: None Allergies: Allergies[1] Code Status: Full Code Activity level - Baseline/Home: independent. Activity Level - Current: assist of 1. Lift room needed: No. Bariatric: No Senior Shipping Clerk Needed: No Isolation: No. Infection: Not Applicable. Respiratory status: Room air Vital Signs (within 30 minutes): Vitals: 02/10/25 1233 02/10/25 1243 02/10/25 1245 02/10/25 1253 BP: (!) 173/87 (!) 173/98 Pulse: 75 76 76 74 Resp: 18 Temp: TempSrc: SpO2: 99% Weight: Height: Cardiac Rhythm: , Cardiac Cardiac Rhythm: Normal sinus rhythm Pain level: Patient confused: No. Patient Falls Risk: nonskid shoes/slippers when out of bed, arm band in place, patient and family education, and assistive device/personal items within reach. Elimination Status: Has voided Patient Report - Initial Complaint: Miya Restrepo is a 74 year old female with a past medical history significant for coronary artery disease, hyperlipidemia, hypertension, cardiomyopathy, stroke, esophageal reflux and supraventricular tachycardia who presents to the ED for an evaluation of chestpain & hypertension. Patient reports chest pain that started yesterday that occasionally radiates to her back as well as her left arm. She states that this is constant. She reports that this chest pain is associated with shortness of breath as well as lightheadedness, pale-ness & blue lips.She endorses a low appetite and nausea since yesterday as well. She reports concerns for her blood pressure; she has a history of hypertension but states that her blood pressure is still abnormally high, measuring at 200/100s for the past week. Today, her blood pressure was measured at 233/135 and her daughter stated that she needed to be evaluated in the ED. She states that she chewed 4x Ijhyisy28av, and was given nitroglycerin en route via EMS, which helped lower her pressure. Focused Assessment: see assessment Abnormal Results: Labs Ordered and Resulted from Time of ED Arrival to Time of ED Departure TROPONIN T, HIGH SENSITIVITY - Normal Result Value Troponin T, High Sensitivity <6 BASIC METABOLIC PANEL (LIMITED OCCURRENCES) - Normal Sodium 141 Potassium 4.0 Chloride 105 Carbon Dioxide (CO2) 25 Anion Gap 11 Urea Nitrogen 13.5 Creatinine 0.70 GFR Estimate 90 Calcium 9.3 Glucose 99 CBC WITH PLATELETS AND DIFFERENTIAL WBC Count 4.96 RBC Count 3.94 Hemoglobin 11.7 Hematocrit 35.2 MCV 89.3 MCH 29.7 MCHC 33.2 RDW 12.9 Platelet Count 175 % Neutrophils 72.7 % Lymphocytes 19.0 % Monocytes 6.9 % Eosinophils 1.0 % Basophils 0.2 % Immature Granulocytes 0.2 NRBCs per 100 WBC 0.0 Absolute Neutrophils 3.61 Absolute Lymphocytes 0.94 Absolute Monocytes 0.34 Absolute Eosinophils 0.05 Absolute Basophils <0.03 Absolute Immature Granulocytes <0.03 Absolute NRBCs <0.03 XR Chest 2 Views Final Result IMPRESSION: The cardiac silhouette is unchanged. No pneumothorax. No pleural effusions. No focal airspace consolidations. Treatments provided: see MAR Family Comments: n/a OBS brochure/video discussed/provided to patient: N/A ED Medications: Medications acetaminophen (TYLENOL) tablet 1,000 mg (has no administration in time range) Drips infusing: No For the majority of the shift this patient was Green. Interventions performed were n/a. Sepsis treatment initiated: No Cares/treatment/interventions/medications to be completed following ED care: n/a ED Nurse Name: Amina Bazan RN 3:13 PM [1] Allergies Allergen Reactions Amlodipine Palpitations Atorvastatin [...] Hives Isosorbide Palpitations Propranolol Anxiety and Headache STANT GM OF CONTENT & DELIVERY * Jensen Jacob DO - 02/10/2025 11:04 AM CST Emergency Department Note History of Present Illness Chief Complaint Chest Pain HPI Miya Restrepo is a 74 year old female with a past medical history significant for coronary arterydisease, hyperlipidemia, hypertension, cardiomyopathy, stroke, esophageal reflux and supraventricular tachycardia who presents to the ED for an evaluation of chest pain & hypertension. Patient reports chest pain that started yesterday that occasionally radiates to her back as well as her left arm. She states that this is constant. She reports that this chest pain is associated with shortness of breath as well as lightheadedness, pale-ness & blue lips. She endorses a low appetite and nausea since yesterday as well. She reports concerns for her blood pressure; she has a history of hypertension but states that her blood pressure is still abnormally high, measuring at 200/100s for the past week. Today, her blood pressure was measured at 233/135 and her daughter stated that she needed to be evaluated in the ED. She states that she chewed 4x Aspirin 81mg, and was given nitroglycerin en route via EMS, which helped lower her pressure. Independent Historian None Review of External Notes Did review ED visit from 01/30/2025 Past Medical History Medical History and Problem List Anxiety Coronary artery disease Hyperlipidemia Hypertension Obstructive sleep apnea PONV Esophageal reflux Stroke Ovarian cyst Cardiomyopathy Concussion Kidney disease Lipid disorder Paroxysmal SVT Raynaud's syndrome Thrombophlebitis Frequent PVC's Statin intolerance Osteoarthritis Irritable bowel syndrome Medications Alprazolam Duloxetine Hydrocortisone acetate Metoprolol Nitroglycerin Surgical History Cholecystectomy Esophagogastroduodenoscopy section Physical Exam Patient Vitals for the past 24 hrs: BP Temp Temp src Pulse Resp SpO2 Height Weight 02/10/25 1515 (!) 176/93 -- -- 89 -- -- -- -- 02/10/25 1500 (!) 173/92 -- -- 85 -- -- -- -- 02/10/25 1445 (!) 181/99 -- -- 73 -- -- -- -- 02/10/25 1430 (!) 173/95 -- -- 74 -- -- -- -- 02/10/25 1415 (!) 174/88 -- -- 73 -- -- -- -- 02/10/25 1400 (!) 157/95 -- -- 82 -- -- -- -- 02/10/25 1345 (!) 157/93 -- -- 78 -- -- -- -- 02/10/25 1330 (!) 163/91 -- -- 73 -- -- -- -- 02/10/25 1315 (!) 169/102 -- -- 77 -- -- -- -- 02/10/25 1300 (!) 157/96 -- -- 75 -- -- -- -- 02/10/25 1253 -- -- -- 74 -- -- -- -- 02/10/25 1245 (!) 173/98 -- -- 76 18 99 % -- -- 02/10/25 1243 -- -- -- 76 -- -- -- -- 02/10/25 1233 (!) 173/87 -- -- 75 -- -- -- -- 02/10/25 1223 -- -- -- 76 -- -- -- -- 02/10/25 1216 -- -- -- 85 -- -- -- -- 02/10/25 1213 (!) 188/95 -- -- 79 -- -- -- -- 02/10/25 1203 -- -- -- 71 -- -- -- -- 02/10/25 1201 -- -- -- 77 -- -- -- -- 02/10/25 1200 (!) 180/92 -- -- 75 -- -- -- -- 02/10/25 1116 (!) 166/101 -- -- 75 -- 95 % -- -- 02/10/25 1101 (!) 178/91 -- -- 74 -- 94 % -- -- 02/10/25 1056 (!) 178/91 99.1 ??F (37.3 ??C) Oral 80 18 94 % -- -- 02/10/25 1053 -- -- -- -- -- -- 1.575 m (5' 2) 62.1 kg (137 lb) Physical Exam Nursing note and vitals reviewed. HENT: Mouth/Throat: Oropharynx is clear and moist. Eyes: Conjunctivae and EOM are normal. Pupils are equal, round, and reactive to light. Cardiovascular: Normal rate, regular rhythm and normal heart sounds. Pulmonary/Chest: Effort normal and breath sounds normal. Abdominal: Soft. Bowel sounds are normal. Musculoskeletal: The patient exhibits no edema. Neurological: The patient is alert. No facial droop or focal extremity weakness. Skin: Skin is warm and dry. No rash noted. Psychiatric: The patient has a normal mood and affect. The patient's behavior is normal. Diagnostics Lab Results Labs Ordered and Resulted from Time of ED Arrival to Time of ED Departure TROPONIN T, HIGH SENSITIVITY - Normal Result Value Troponin T, High Sensitivity <6 BASIC METABOLIC PANEL (LIMITED OCCURRENCES) - Normal Sodium 141 Potassium 4.0 Chloride 105 Carbon Dioxide (CO2) 25 Anion Gap 11 Urea Nitrogen 13.5 Creatinine 0.70 GFR Estimate 90 Calcium 9.3 Glucose 99 CBC WITH PLATELETS AND DIFFERENTIAL WBC Count 4.96 RBC Count 3.94 Hemoglobin 11.7 Hematocrit 35.2 MCV 89.3 MCH 29.7 MCHC 33.2 RDW 12.9 Platelet Count 175 % Neutrophils 72.7 % Lymphocytes 19.0 % Monocytes 6.9 % Eosinophils 1.0 % Basophils 0.2 % Immature Granulocytes 0.2 NRBCs per 100 WBC 0.0 Absolute Neutrophils 3.61 Absolute Lymphocytes 0.94 Absolute Monocytes 0.34 Absolute Eosinophils 0.05 Absolute Basophils <0.03 Absolute Immature Granulocytes <0.03 Absolute NRBCs <0.03 Imaging XR Chest 2 Views Final Result IMPRESSION: The cardiac silhouette is unchanged. No pneumothorax. No pleural effusions. No focal airspace consolidations. EKG ECG results from 02/10/25 EKG 12 lead Value Systolic Blood Pressure Diastolic Blood Pressure Ventricular Rate 80 Atrial Rate 80 WY Interval 156 QRS Duration 78 QT 362 QTc 417 P [place] 62 R AXIS 27 T Monument 45 Interpretation ECG Sinus rhythm Normal ECG When compared with ECG of 30-Jan-2025 16:59, No significant change was found Unconfirmed report - interpretation of this ECG is computer generated - see medical record for final interpretation Confirmed by - EMERGENCY ROOM, PHYSICIAN ([id number]), visual effects editor Raymundo Bustamante ([id number]) on 02/10/2025 11:34:31AM Independent Interpretation CXR: No pneumothorax, infiltrate, cardiomegaly, or mediastinal widening. ED Course Medications Administered Medications acetaminophen (TYLENOL) tablet 1,000 mg (1,000 mg Oral $Given 02/10/25 4238) Procedures Procedures Discussion of Management None ED Course ED Course as of 02/10/25 1609 Mon Feb 10, 2025 1105 I obtained history and examined the patient as noted above. Additional Documentation None Medical Decision Making / Diagnosis [facility] Diagnoses: None MIPS None MDM Miya Restrepo is a 74 year old female with a history of hypertension and previous stroke presenting to the emergency department for chest pain and concerns of elevated blood pressure. On evaluationhere, she was hypertensive but otherwise vitals are within normal limits. Given her symptoms, concern for potential ACS, pneumonia, pneumothorax, dissection. Here her EKG shows no evidence of acute ischemia and her troponin is undetectable making ACS unlikely. Her chest x-ray shows no focal infiltrate to suggest a pneumonia. There is no pneumothorax seen or widened mediastinum to suggest a dissection. The remainder of her lab work was unremarkable as well showing no signs of acute organ damage. Did discuss with her a workup here and disposition. Do believe that it is appropriate for her to bedischarged home with close outpatient follow-up for continued management of her blood pressure given that this is a longstanding issue. Patient was somewhat hesitant about this so I did offer potential observation admission. Patient's daughter then arrived and shared decision making through them, the plan will be for discharge home with close outpatient follow-up and they were also given very strict return precautions. They both were comfortable in agreement with this plan. Disposition The patient was discharged. Diagnosis ICD-10-CM 1. Chest pain, unspecified type R07.9 2. Elevated blood pressure reading with diagnosis of hypertension I10 Discharge Medications Discharge Medication List as of 02/10/2025 3:34 PM Scribe Disclosure: I, Annie Ash, am serving as a scribe at 11:04 AM on 02/10/2025 to document services personallyperformed by Jensen Jacob DO based on my observations and the provider's statements to me. Jensen Jacob DO 02/10/25 1609 STANT GM OF CONTENT & DELIVERY * Dulce Hyatt, RN - 02/10/2025 10:54 AM CST Pt arrives via EMS from home d/t mid-sternal CP that radiates to back since last night. Home BP last few days 230/120s, hasn't taken BP meds in a few days. EKG SR. Given one sublingual nitroglycerin and 324 mg ASA INVESTMENT ANALYST. 20 g L AC. Hx CVA with R hand def. BG 121. Reports SOB and nausea. No diaphoresis. ABC intact. A&Ox4. STANT GM OF CONTENT & DELIVERY * Gwen Trujillo RN - 02/10/2025 10:50 AM CST Bed: ED13 Expected date: Expected time: Means of arrival: Comments: [id number] 74 f yoo cp STANT GM OF CONTENT & DELIVERY documented in this encounter Plan of Treatment Not on file documented as of this encounter Procedures Procedure NamePriorityDate/TimeAssociated DiagnosisCommentsEXTRA TUBESTAT 02/10/2025 12:13 PM ASSISTANT GM OF CONTENT & DELIVERY EXTRA PURPLE TOP WSHCPWMU33/01/2025 12:13 PM ASSISTANT GM OF CONTENT & DELIVERY BASIC METABOLIC PANEL (LIMITED OCCURRENCES)STAT104/13/2024 12:13 PM ASSISTANT GM OF CONTENT & DELIVERY XR CHEST 2 RPIFECNKJ43/01/2025 11:36 AM ASSISTANT GM OF CONTENT & DELIVERY EXTRA EGECVXZZ53/01/2025 11:01 AM ASSISTANT GM OF CONTENT & DELIVERY EXTRA BLUE TOP MLRXHGAM85/01/2025 11:01 AM ASSISTANT GM OF CONTENT & DELIVERY CBC WITH PLATELETS AND VFGOJMSBIUAPKOAY81/01/2025 11:01 AM ASSISTANT GM OF CONTENT & DELIVERY CBC WITH PLATELETS AND DIFFERENTIAL (LIMITED OCCURRENCES)STAT104/13/2024 11:01 AM ASSISTANT GM OF CONTENT & DELIVERY TROPONIN T, HIGH RDINRPTLPTZKTET82/01/2025 11:01 AM ASSISTANT GM OF CONTENT & DELIVERY EKG 12-LEAD, TRACING SBWDIMCV17/01/2025 10:51 AM ASSISTANT GM OF CONTENT & DELIVERY documented in this encounter Results * Extra Purple Top Tube (02/10/2025 12:13 PM ASSISTANT GM OF CONTENT & DELIVERY)ComponentValueRef RangeTest MethodAnalysis TimePerformed AtPathologist SignatureHold FbehjqltZUK98/01/2025 1:32 PM [facility] LABORATORYSpecimen (Source)Anatomical Location / Laterality Collection Method / VolumeCollection TimeReceived TimeBloodBLOOD SPECIMEN / UnknownVenipuncture / Ttbnaui8902/10/2025 12:13 PM CST02/10/2025 12:20 PM ASSISTANT GM OF CONTENT & DELIVERY Narrative Authorizing ProviderResult TypeResult StatusAasherman Jacob DOLAB - BLOOD ORDERABLESFinal ResultPerforming OrganizationAddressCity/State/ZIP CodePhone Number [facility] Lab [address] [facility] (1st floor, no room number) [place] [address], [facility] * Basic Metabolic Panel (Limited Occurrences) (02/10/2025 12:13 PM ASSISTANT GM OF CONTENT & DELIVERY)Component ValueRef RangeTest MethodAnalysis TimePerformed AtPathologist SignatureSodium 082364 - 145 mmol/L104/13/2024 12:40 PM [facility] LABORATORYPotassium4.03.4 - 5.3 mmol/L104/13/2024 12:40 PM [facility] QCUGEXZOWGRagsitth75404 - 107 mmol/L104/13/2024 12:40 PM [facility] LABORATORYCarbon Dioxide (CO2)2522 - 29 mmol/L104/13/2024 12:40 PM [facility] LABORATORYAnion Tbt726 - 15 mmol/L104/13/2024 12:40 PM [facility] LABORATORYUrea Aatdsbxw87.58.0 - 23.0 mg/dL02/10/2025 12:40 PM [facility] LABORATORYCreatinine0.700.51 - 0.95 mg/dL02/10/2025 12:40 PM [facility] GFR Wfdzutgn36>60 mL/min/1.64x85602/10/2025 12:40 PM [facility] LABORATORYComment: eGFR calculated using 2020 CKD-EPI equation.Calcium9.38.8 - 10.4 mg/dL 02/10/2025 12:40 PM [facility] AWFTECJRWSAswijrw2261 - 99 mg/dL02/10/2025 12:40 PM [facility] LABORATORYSpecimen (Source)Anatomical Location / LateralityCollection Method / VolumeCollection TimeReceived TimeBloodBLOOD SPECIMEN / Unknown Venipuncture / Trmqzcf1602/10/2025 12:13 PM CST02/10/2025 12:20 PM ASSISTANT GM OF CONTENT & DELIVERY Narrative Authorizing ProviderResult TypeResult StatusJensen Jacob DOLAB - BLOOD ORDERABLESFinal ResultPerforming OrganizationAddressCity/State/ZIP CodePhone Number [facility] [address], no room number) [place] [address], [facility] * XR Chest 2 Views (02/10/2025 11:36 AM ASSISTANT GM OF CONTENT & DELIVERY)Anatomical RegionLateralityModality ChestDigital RadiographySpecimen (Source)Anatomical Location / Laterality Collection Method / VolumeCollection TimeReceived Time02/10/2025 11:36 AM ASSISTANT GM OF CONTENT & DELIVERY Impressions 02/10/2025 11:40 AM ASSISTANT GM OF CONTENT & DELIVERY IMPRESSION: The cardiac silhouette is unchanged. No pneumothorax. No pleural effusions. No focal airspace consolidations. Narrative 02/10/2025 11:40 AM ASSISTANT GM OF CONTENT & DELIVERY EXAM: XR CHEST 2 VIEWS LOCATION: [facility] DATE: 02/10/2025 INDICATION: chest pain COMPARISON: 01/08/2025 Procedure Note Jim Madera MD - 02/10/2025 EXAM: XR CHEST 2 VIEWS LOCATION: [facility] DATE: 02/10/2025 INDICATION: chest pain COMPARISON: 01/08/2025 IMPRESSION: The cardiac silhouette is unchanged. No pneumothorax. Nopleural effusions. No focal airspace consolidations. Authorizing ProviderResult TypeResult Danyel Jacob DOI DIAGNOSTIC IMAGING ORDERABLESFinal Result * Extra Blue Top Tube (02/10/2025 11:01 AM ASSISTANT GM OF CONTENT & DELIVERY)ComponentValueRef RangeTest MethodAnalysis TimePerformed AtPathologist SignatureHold IhbnwhdsEUG19/01/2025 12:08 PM [facility] LABORATORYSpecimen (Source)Anatomical Location / Laterality Collection Method / VolumeCollection TimeReceived TimeBloodBLOOD SPECIMEN / UnknownVenipuncture / Rybwrkz8402/10/2025 11:01 AM CST02/10/2025 11:07 AM ASSISTANT GM OF CONTENT & DELIVERY Narrative Authorizing ProviderResult TypeResult StatusAasherman Jacob DOLAB - BLOOD ORDERABLESFinal ResultPerforming OrganizationAddressCity/State/ZIP CodePhone Number LABORATORY [facility] Acute Care Lab [address] [facility] (1st floor, no room number) [place] [address], [facility] * CBC with platelets and differential (02/10/2025 11:01 AM [facility])ComponentValueRef RangeTest MethodAnalysis TimePerformed AtPathologist SignatureWBC Count4.96 4.00 - 11.00 10e3/uL02/10/2025 11:10 AM [facility] LABORATORYRBC Count3.943.80 - 5.20 10e6/uL02/10/2025 11:10 AM [facility] QERQVDQRCFPyyubukycv34.711.7 - 15.7 g/dL 02/10/2025 11:10 AM [facility] IUIBSBWJSBXnnsrdiprm67.235.0 - 47.0 %02/10/2025 11:10 AM [facility] CIDMEROMWIKDS27.378.0 - 100.0 fL02/10/2025 11:10 AM [facility] FYEQPJETSMHJZ12.726.5 - 33.0 pg02/10/2025 11:10 AM [facility] QNHDBSNGDHXKNT57.2 31.5 - 36.5 g/dL02/10/2025 11:10 AM [facility] NFAAOYNNXVMUS87.910.0 - 15.0 % 02/10/2025 11:10 AM [facility] LABORATORYPlatelet Brorf041447 - 450 10e3/uL 02/10/2025 11:10 AM [facility] LABORATORY% Xhjsyzlawvq45.7%02/10/2025 11:10 AM [facility] LABORATORY% Negdbxhzxnz60.0%02/10/2025 11:10 AM [facility] LABORATORY% Monocytes 6.9%02/10/2025 11:10 AM [facility] LABORATORY% Eosinophils1.0%02/10/2025 11:10 AM [facility] LABORATORY% Basophils0.2%02/10/2025 11:10 AM [facility] LABORATORY% Immature Granulocytes0.2%02/10/2025 11:10 AM [facility] LABORATORYNRBCs per 100 WBC0.0<1.0 /1091702/10/2025 11:10 AM [facility] LABORATORYAbsolute Neutrophils3.611.60 - 8.30 10e3/uL02/10/2025 11:10 AM [facility] LABORATORYAbsolute Lymphocytes0.940.80 - 5.30 e3/uL02/10/2025 11:10 AM [facility] LABORATORYAbsolute Monocytes0.340.00 - 1.30 e3/uL02/10/2025 11:10 AM [facility] LABORATORYAbsolute Eosinophils0.050.00 - 0.70 e3/uL02/10/2025 11:10 AM [facility] LABORATORYAbsolute Basophils<0.030.00 - 0.20 10e3/uL02/10/2025 11:10 AM [facility] LABORATORYAbsolute Immature Granulocytes <0.03<=0.40 10e3/uL02/10/2025 11:10 AM [facility] LABORATORYAbsolute NRBCs<0.03 /uL02/10/2025 11:10 AM [facility] LABORATORYSpecimen (Source)Anatomical Location / LateralityCollection Method / VolumeCollection TimeReceived Time BloodBLOOD SPECIMEN / UnknownVenipuncture / Wlbxhag5002/10/2025 11:01 AM ASSISTANT GM OF CONTENT & DELIVERY 02/10/2025 11:07 AM [facility] Narrative Authorizing ProviderResult TypeResult StatusAasherman Jacob DOLAB - BLOOD ORDERABLESFinal ResultPerforming OrganizationAddressCity/State/ZIP CodePhone Number [facility] Acute Care Lab [address] [facility] (1st floor, no room number) [place] [address], [facility] * Troponin T, High Sensitivity (02/10/2025 11:01 AM ASSISTANT GM OF CONTENT & DELIVERY)ComponentValueRef Range Test MethodAnalysis TimePerformed AtPathologist SignatureTroponin T, High Sensitivity<6<=14 ng/L104/13/2024 11:29 AM [facility] LABORATORYComment: Either a High Sensitivity Troponin T [...] TimeReceived TimeBloodBLOOD SPECIMEN / UnknownVenipuncture / Unknown 02/10/2025 11:01 AM CST02/10/2025 11:08 AM ASSISTANT GM OF CONTENT & DELIVERY Narrative Authorizing ProviderResult TypeResult StatusJensen Jacob DOLAB - BLOOD ORDERABLESFinal ResultPerforming OrganizationAddressCity/State/ZIP CodePhone Number [facility] Acute Care Lab [address] [facility] (1st floor, no room number) [place] [address] * EKG 12 lead (02/10/2025 10:51 AM ASSISTANT GM OF CONTENT & DELIVERY)ComponentValueRef RangeTest Method Analysis TimePerformed AtPathologist SignatureSystolic Blood PressuremmHg RADIOLOGY RESULTSDiastolic Blood PressuremmHgRADIOLOGY RESULTSVentricular Rate 80BPMRADIOLOGY RESULTSAtrial Mams44AKYCMESNUUYB RESULTSPR Qnhmyiml886cl RADIOLOGY RESULTSQRS Yoqpximd86ojDAJMTUSCL GZWACWNCP679aeETIEQKHOJ RESULTSQTc 417msRADIOLOGY RESULTSP Ztfz37ekfywazEYKZOFNWO RESULTSR UXUE14jpkbkfhWDCABMVHR RESULTST Afbj84tsuqqhhNVTUXXRIT RESULTSInterpretation ECGSinus rhythm Normal ECG When compared with ECG of 30-Jan-2025 16:59, No significant change was found Unconfirmed report - interpretation of this ECG is computer generated - see medical record for final interpretation Confirmed by - EMERGENCY ROOM, PHYSICIAN ([id number]), visual effects editor Raymundo Bustamante ([id number]) on 02/10/2025 11:34:31AM RADIOLOGY RESULTSSpecimen (Source)Anatomical Location / LateralityCollection Method / VolumeCollection TimeReceived Time02/10/2025 10:51 AM CST02/10/2025 11:34 AM ASSISTANT GM OF CONTENT & DELIVERY Narrative Authorizing ProviderResult TypeResult StatusKylah Garcia MDECG ORDERABLESEdited Result - FinalPerforming OrganizationAddressCity/State/ZIP Code Phone Number RADIOLOGY RESULTS documented in this encounter Visit Diagnoses Diagnosis Chest pain, unspecified type- Primary Elevated blood pressure reading with diagnosis of hypertension documented in this encounter Administered Medications Medication OrderMAR ActionAction DateDoseRateSite acetaminophen (TYLENOL) tablet 1,000 mg 1,000 mg, Oral, ONCE, On Mon02/10/25 at 1445, For 1 dose, Maximum acetaminophen dose from all sources = 75 mg/kg/day not to exceed 4 gram $Given02/10/2025 3:26 PM CST1,000 mgdocumented in this encounter Active and Recently Administered Medications Times are shown in ASSISTANT GM OF CONTENT & DELIVERY.Medication Order02/08/20240313// acetaminophen (TYLENOL) tablet 1,000 mg (COMPLETED) 1,000 mg, Oral, ONCE, On Mon02/10/25 at 1445, For 1 dose, Maximum acetaminophen dose from all sources = 75 mg/kg/day not to exceed 4 gram * 1526 ($Given - Provider: Syklar Shah RN) documented in this encounter Care Teams Team MemberRelationshipSpecialtyStart DateEnd Date Kyra Perera [address] [place] [address] PCP - GeneralPhysician Assistant03/31/22 Angel Hollins MD [address] [place] [address] Neurology07/20/23 Petra Dorado PA [address] [address] Physician AssistantPhysical Medicine and Rehabilitation07/20/23 Angel Hollins MD [address] [address] Assigned Neuroscience Provider08/03/23 Yves Ballard MD [address] [address] Assigned Heart and Vascular Provider12/04/23documented as of this encounter
[2025-02-21] VITALS (13 sets, daily range): BP systolic 144–207; BP diastolic 84–98; PULSE 66–86; RESP 11–21; TEMP 36.5; O2SAT 92–98; BMI 24.9
--- OUTSIDE RECORDS SUMMARY | 2025-02-21 16:48 | XMS_ITS | Encounter Summary ---
Author Organization [facility] Address [address] [place] [address] Care Team Providers Care Manager Leasing Name Role Phone Trever Kyra Bell Primary Care Provider [phone] Angel Hollins MD Unavailable Petra Dorado Unavailable [phone] Angel Hollins MD Unavailable Yves Ballard MD Unavailable [phone] Encounter Details DateTypeDepartmentCare Team (Latest Contact Info)Blufswsmrua64/29/2025Travel Social History Tobacco UseTypesPacks/DayYears UsedDateSmoking Tobacco: NeverSmokeless Tobacco: NeverAlcohol UseStandard Drinks/WeekCommentsNot Currently0 (1 standard drink = 0.6 oz pure alcohol)PHQ-2AnswerDate RecordedPHQ-2 [id number] EducationAnswerDate RecordedGetting School Help NeededNot on file12/25/2022 CommentsNoSex and Gender InformationValueDate RecordedSex Assigned at BirthNot on fileLegal FrjRssepc93/04/2012 3:34 AM CSTGender IdentityNot on file Sexual OrientationNot on filedocumented as of this encounter Functional Status * Calculated C-SSRS Risk Score (Lifetime/Recent)AnswerDate of AssessmentAuthorNo Risk Gsyurtkhj71/29/2025 7:44 PM Bridgett Dawson RN * [place] Suicide Severity Rating Scale (Screener/Recent Self-Report)Question AnswerDate of AssessmentAuthor1. Wish to be (Past 1 Month)No01/08/2025 7:44 PM Bridgett Dawson RN2. Non-Specific Active Suicidal Thoughts (Past 1 Month)No01/08/2025 7:44 PM Bridgett Dawson RN6. Suicidal Behavior (Lifetime)No01/08/2025 7:44 PM Bridgett Dawson RN documented as of this encounter Plan of Treatment Not on file documented as of this encounter Visit Diagnoses Not on filedocumented in this encounter Care Teams Team MemberRelationshipSpecialtyStart DateEnd Date Kyra Perera [address] [place] [address] PCP - GeneralPhysician Assistant03/31/22 Angel Hollins MD [address] [address] Neurology07/20/23 Petra Dorado PA [address] [facility] [address] [place] [address] Physician AssistantPhysical Medicine and Rehabilitation07/20/23 Angel Hollins MD [address] [address] Assigned Neuroscience Provider08/03/23 Yves Ballard MD [address] [facility] [address] [place] [address] Assigned Heart and Vascular Provider12/04/23documented as of this encounter
--- OUTSIDE RECORDS SUMMARY | 2025-02-21 16:50 | XMS_ITS | Encounter Summary ---
Author Organization [facility] Address [address] [place] [address] Care Team Providers Care Bridal Gown Fitter Name Role Phone Trever Kyra Bell Primary Care Provider [phone] Angel Hollins MD Unavailable Petra Dorado Unavailable [phone] Angel Hollins MD Unavailable Yves Ballard MD Unavailable [phone] Encounter Details DateTypeDepartmentCare Team (Latest Contact Info)Hlxzswisosq26/20/2025Travel Social History Tobacco UseTypesPacks/DayYears UsedDateSmoking Tobacco: NeverSmokeless Tobacco: NeverAlcohol UseStandard Drinks/WeekCommentsNot Currently0 (1 standard drink = 0.6 oz pure alcohol)PHQ-2AnswerDate RecordedPHQ-2 [id number] EducationAnswerDate RecordedGetting School Help NeededNot on file12/25/2022 CommentsNoSex and Gender InformationValueDate RecordedSex Assigned at BirthNot on fileLegal MpoXeuexo28/04/2012 3:34 AM CSTGender IdentityNot on file Sexual OrientationNot on filedocumented as of this encounter Functional Status * Calculated C-SSRS Risk Score (Lifetime/Recent)AnswerDate of AssessmentAuthorNo Risk Qbdikvgmg42/20/2025 5:08 PM Anjelica Mederos RN * [place] Suicide Severity Rating Scale (Screener/Recent Self-Report)Question AnswerDate of AssessmentAuthor1. Wish to be (Past 1 Month)No01/30/2025 5:08 PM Anjelica Mederos RN2. Non-Specific Active Suicidal Thoughts (Past 1 Month)No01/30/2025 5:08 PM Anjelica Mederos RN6. Suicidal Behavior (Lifetime)No 01/30/2025 5:08 PM Anjelica Mederos RN documented as of this encounter Plan of Treatment Not on file documented as of this encounter Visit Diagnoses Not on filedocumented in this encounter Care Teams Team MemberRelationshipSpecialtyStart DateEnd Date Kyra Perera [address] [place] [address] PCP - GeneralPhysician Assistant03/31/22 Angel Hollins MD [address] [address] Neurology07/20/23 Petra Dorado PA [address] [facility] [address] [place] [address] Physician AssistantPhysical Medicine and Rehabilitation07/20/23 Angel Hollins MD [address] [address] Assigned Neuroscience Provider08/03/23 Yves Ballard MD [address] [facility] [address] [place] [address] Assigned Heart and Vascular Provider12/04/23documented as of this encounter
--- OUTSIDE RECORDS SUMMARY | 2025-02-21 16:50 | XMS_ITS | Encounter Summary ---
Author Organization [facility] Address [address] [place] [address] Care Team Providers Care Tape Transferrer Name Role Phone Kyra Perera Primary Care Provider [phone] Angel Hollins MD Unavailable Petra Dorado Unavailable [phone] Angel Hollins MD Unavailable Yves Ballard MD Unavailable + [phone] Encounter Details DateTypeDepartmentCare Team (Latest Contact Info)Aagubcjchgi98/07/2025Travel Social History Tobacco UseTypesPacks/DayYears UsedDateSmoking Tobacco: NeverSmokeless Tobacco: NeverAlcohol UseStandard Drinks/WeekCommentsNot Currently0 (1 standard drink = 0.6 oz pure alcohol)PHQ-2AnswerDate RecordedPHQ-2 Ayygx1985Adolescent EducationAnswerDate RecordedGetting School Help NeededNot on file12/25/2022 CommentsNoSex and Gender InformationValueDate RecordedSex Assigned at BirthNot on fileLegal EiqKyjdec19/04/2012 3:34 AM CSTGender IdentityNot on file Sexual OrientationNot on filedocumented as of this encounter Plan of Treatment Not on file documented as of this encounter Visit Diagnoses Not on filedocumented in this encounter Care Teams Team MemberRelationshipSpecialtyStart DateEnd Date McLdinan, Kyra M [address] [place] [address] PCP - GeneralPhysician Assistant03/31/22 Angel Hollins MD [address] [address] Neurology07/20/23 Petra Dorado PA [address] [place], [place] [address] Physician AssistantPhysical Medicine and Rehabilitation07/20/23 Angel Hollins MD [address] [address] Assigned Neuroscience Provider08/03/23 Yves Ballard MD [address] [place] [address] Assigned Heart and Vascular Provider12/04/23documented as of this encounter
--- OUTSIDE RECORDS SUMMARY | 2025-02-21 16:51 | XMS_ITS | Encounter Summary ---
Author Organization [facility] Address [address] [place] [address] Care Team Providers Care Computer Technician Name Role Phone Trever Kyra Bell Primary Care Provider [phone] Angel Hollins MD Unavailable [phone] Petra Dorado Unavailable [phone] Angel Hollins MD Unavailable Yves Ballard MD Unavailable [phone] Encounter Details DateTypeDepartmentCare Team (Latest Contact Info)Uumvhvlfext03/01/2025Travel Social History Tobacco UseTypesPacks/DayYears UsedDateSmoking Tobacco: NeverSmokeless Tobacco: NeverAlcohol UseStandard Drinks/WeekCommentsNot Currently0 (1 standard drink = 0.6 oz pure alcohol)PHQ-2AnswerDate RecordedPHQ-2 Yopxj5085Adolescent EducationAnswerDate RecordedGetting School Help NeededNot on file12/25/2022 CommentsNoSex and Gender InformationValueDate RecordedSex Assigned at BirthNot on fileLegal SxeIbofee51/04/2012 3:34 AM CSTGender IdentityNot on file Sexual OrientationNot on filedocumented as of this encounter Functional Status * Calculated C-SSRS Risk Score (Lifetime/Recent)AnswerDate of AssessmentAuthorNo Risk Jythrmomq84/01/2025 10:52 AM Dulce Hebert RN * [place] Suicide Severity Rating Scale (Screener/Recent Self-Report)Question AnswerDate of AssessmentAuthor1. Wish to be (Past 1 Month)No02/10/2025 10:52 AM Dulce Hebert RN2. Non-Specific Active Suicidal Thoughts (Past 1 Month)No02/10/2025 10:52 AM Dulce Hebert RN6. Suicidal Behavior (Lifetime)No02/10/2025 10:52 AM Dulce Hebert RN documented as of this encounter Plan of Treatment Not on file documented as of this encounter Visit Diagnoses Not on filedocumented in this encounter Care Teams Team MemberRelationshipSpecialtyStart DateEnd Date Kyra Perera [address] [place] [address] PCP - GeneralPhysician Assistant03/31/22 Angel Hollins MD [address] [address] Neurology07/20/23 Petra Dorado PA [address] [facility] [address] [place] [address] Physician AssistantPhysical Medicine and Rehabilitation07/20/23 Angel Hollins MD [address] [address] Assigned Neuroscience Provider08/03/23 Yves Ballard MD [address] [facility] [address] [place] [address] Assigned Heart and Vascular Provider12/04/23documented as of this encounter
--- OUTSIDE RECORDS SUMMARY | 2025-02-21 16:51 | XMS_ITS | Clinical Summary ---
Author Organization [facility] Address [address] [address] Phone Care Team Providers Care Superintendent Maintenance Airports Name Role Phone Elsewhere, Pcp Primary Care Provider Unavailabl e Allergies Active AllergyReactionsCriticalityNoted DateCommentsAmoxicillinSwelling 12/20/20141943MbulflgnAyahdngvobr69/10/2015Penicillin TZutqjhht20/10/2015Unclear Patient Xziydq5612/20/2014 Blood pressure medications Hydrocodone-AcetaminophenNausea and Dkxbqwrv41/10/2015 Active Problems No known active problems Surgical History SurgeryDateSite/LateralityCommentsCHOLECYSTECTOMY SECTION TONSILLECTOMY Medical History Medical HistoryDateCommentsHTN (hypertension)Anxiety Social History Tobacco UseTypesPacks/DayYears UsedDateSmoking Tobacco: NeverAlcohol UseStandard Drinks/WeekCommentsNo0 (1 standard drink = 0.6 oz pure alcohol)Comments NoSex and Gender InformationValueDate RecordedSex Assigned at BirthNot on file Legal RjpZiixqw17/10/2015 11:44 AM CDTGender IdentityNot on fileSexual OrientationNot on file Last Filed Vital Signs Vital SignReadingTime TakenCommentsBlood Akuxwwaq452/8512/20/2014 1:30 PM CDT Ytaaj337912/20/2014 1:30 PM HHCOpwktuxmzbg81.6 ??C (97.8 ??F)12/20/2014 11:53 AM CDTRespiratory Usey616912/20/2014 1:30 PM CDTOxygen Hryyyuytet57%12/20/2014 1:30 PM CDTInhaled Oxygen Concentration--Pqlmin71.7 kg (125 lb)12/20/2014 11:53 AM XDVZrihuj730.5 cm (5' 2)12/20/2014 11:53 AM CDTBody Mass Index22.8612/20/2014 11:53 AM CDT Plan of Treatment Not on file Insurance Care Teams Team MemberRelationshipSpecialtyStart DateEnd Date Elsewhere, Pcp PCP - Almxaof70/10/15
--- OUTSIDE RECORDS SUMMARY | 2025-02-21 16:51 | XMS_ITS | Clinical Summary ---
Author Organization [facility] Address [address] [place] [address] Care Team Providers Care Agent Telegrapher Name Role Phone Gwensofi Kyra Bell Primary Care Provider Angel Hollins MD Unavailable Petra Dorado Unavailable [phone] Angel Hollins MD Unavailable Yves Ballard MD Unavailable + [phone] Allergies Active AllergyReactionsCriticalityNoted DateCommentsAce Iopwuylqrw54/03/2025 Aarsquqkyzcpq606915ZeakwstjewMikfwzmrbzlxFdzd10/22/2020AtorvastatinMuscle Pain (Myalgia)High10/28/2010 Other reaction(s): Myalgia Caused myalgias. Caused myalgias. Caused myalgias. Caused myalgias. Other reaction(s): Myalgia Caused myalgias. Caused myalgias. Caused myalgias. Caused myalgias. ChlorthalidoneShortness Of CfrjjiWhxy68/22/2020 Other Reaction(s): Dyspnea ClonidineShortness Of Breath,Difficulty itpxagewkAfvj55/23/2020DiltiazemAnxiety High05/12/2011DoxazosinOther (See Comments)High05/21/2020 Bleeding Other Reaction(s): Bleeding Nose bleeding, tried twice for 3 days and happened both times EzetimibeOther (See Comments)05/24/2024 Pins and needles feeling all over her body, swollen throat, muscle pain GabapentinShortness Of QvbwvsInlh10/29/9888UyfcykvytnzAjiu18/01/2012 Other reaction(s): Tachycardia Other Reaction(s): Tachycardia HydrochlorothiazideOther (See Comments),Difficulty ytbiwqsglHrjt97/16/2008 ? asthma ? asthma ? asthma ? asthma HydrocodoneNausea and PjvyureuFsdq63/16/2024Hydrocodone-AcetaminophenNausea and Tdkmjopu56/19/0785GwylajkfwbXhapufqvmninTvu71/26/2021Isosorbide NitrateHeadache 01/27/2024LabetalolShortness Of Breath,Difficulty bttxfdaahTrpw17/23/2012Lactose 02/18/2009 Other reaction(s): Intolerance-Can't Take Flu-like symptoms Other Reaction(s): Intolerance-Can't Take Flu-like symptoms Other reaction(s): Intolerance-Can't Take Flu-like symptoms LatexOther (See Comments)06/15/20162357ZguahsrbkrXaug15/19/2008 Other reaction(s): Chest Pain Other Reaction(s): Chest Pain LorazepamOther (See Comments)High03/26/2010 Pt reports depression Pt reports depression Pt reports depression Pt reports depression Other Reaction(s): Depression LosartanShortness Of XmtrxzGzuc42/21/2011 Noted dyspnea Noted dyspnea Noted dyspnea Other Reaction(s): Dyspnea PregabalinShortness Of TeivyuOmfx38/29/0660HeqowqmhkbDlduAbed12/02/2012 MetoprololOther (See Comments)Rgjjix0712/01/2010 Reaction to SUCCINATE was described by patient as throat swelling that she treated at home with ??benadryl and did not seek medical care (Tolerating metoprolol tartrate as of 10/28/24) BewbkdgnvcirdWuhchBqia78/16/2024Milk (Cow)High09/26/2023MorphineAnaphylaxis, Hives,Nausea and CntacnxiRero56/02/5204YuurxmlktkUpdvbjsoh82/06/2023 vertigo Other (Do Not Use)High09/26/2023Other Drug Allergy (See Comments)Other (See Comments)03/20/2013 got sick from it PenicillinsAngioedema,XnqnofnaSbvf32/02/2005 Other reaction(s): Angioedema, Angioedema Other Reaction(s): Throat Closing, throat swells PropafenoneShortness Of DtadsfYagn79/29/2024PropranololAnxiety,HeadacheLow 01/03/2023RosuvastatinMuscle Pain (Myalgia)High10/28/2010 Other reaction(s): Myalgia Caused myalgias. Caused myalgias. Caused myalgias. Caused myalgias. Other reaction(s): Myalgia Caused myalgias. Caused myalgias. Caused myalgias. Caused myalgias. Shellfish YrihqwoZymnqrqrqbRdep54/01/2011 Had severe pain and swelling after lobster Other reaction(s): Angioedema Had severe pain and swelling after lobster Shellfish Protein-Containing Drug EbdhimakMkqxjmyomwIkmy32/01/2011 Other reaction(s): Angioedema Had severe pain and swelling after lobster Lobster: ??Angioedema and severe stomach pain; has to go to ER when she ate lobster Had severe painand swelling after lobster Lobster: ??Angioedema and severe stomach pain; has to go to ER when she ate lobster Had severe pain and swelling after lobster Lobster: ??Angioedema and severe stomach pain; has to goto ER when she ate lobster Sulfa YftdsgmgbobFqgtrOpnq04/12/6991EqdnyqymsloppUpgsn68/02/2005Verapamil Shortness Of SxehnkXhtb91/20/2012 Other Reaction(s): Dyspnea Medications MedicationSigDispense QuantityRefillsLast FilledStart DateEnd DateStatus ALPRAZolam (XANAX) 0.25 MG tablet Take 0.5 tablets by mouth 3 times daily as needed for anxiety.Active nitroGLYcerin (NITROSTAT) 0.[address] 0.4 mg under the tongue every 5 minutes as needed for chest pain For chest pain place 1 tablet under the tongue every 5 minutes for 3 doses. If symptoms persist 5 minutes after 1st dose call 911.Active Vitamin D3 (VITAMIN D, CHOLECALCIFEROL,) 25 mcg (1000 units) tablet Take 1 tablet by mouth daily.Active acetaminophen (TYLENOL) 325 MG tablet Indications:Right upper quadrant abdominal painTake 2 tablets (650 mg) by mouth every 4 hours as needed for mild pain or other (and adjunct with moderate or severe pain or per patient request)4Active aspirin 81 MG EC tablet Indications:Right upper quadrant abdominal painTake 1 tablet (81 mg) by mouth daily4Active famotidine (PEPCID) 20 MG tablet Take 20 mg by mouth daily as needed.Active furosemide (LASIX) 20 MG tablet Take 20 mg by mouth twice a week.Active metoprolol tartrate (LOPRESSOR) 25 MG tablet Take 12.5 mg by mouth 2 times daily.Active alirocumab (PRALUENT) 75 MG/ML injectable pen Indications:Hyperlipidemia LDL goal <70,Statin intolerance,Elevated lipoprotein(a)Inject 1 mL (75 mg) subcutaneously every 14 days. 6 mL 5Active Pitavastatin Magnesium (ZYPITAMAG) 2 MG TABS Indications:Hyperlipidemia LDL goal <70Take 2 mg by mouth daily. 30 tablet 5Active Active Problems ProblemNoted DateDiagnosed DateParoxysmal oorgmhuppri68/04/2025Frequent PVCs 12/10/2024 Overview (12/10/2024): Patient is aware of frequent PVCs. Zio monitor April 2023 reviewed Intolerant of beta-blockers to suppress PVCs Continue home low-dose metoprolol tartrate 6.25 mg twice daily Mucous cyst of iglkgb3012/10/2024Obstructive sleep apnea treated with continuous positive airway pressure (CPAP)12/10/2024 Overview (12/10/2024): Referred for sleep study. Patient has sleep apnea. She had a CPAP that was recalled. She quit usingit because of the recall. Pending further evaluation. 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 Ischemic cerebrovascular accident (CVA)12/10/2024 Overview (12/10/2024): Symptom onset, slurred speech, 06/29/2023 [...] extremity apraxia and difficulty with handwriting. Per [facility] Stroke Neurology, Dr. Wagner, recommendations as follows: Continue aspirin 325 mg daily and Plavix 75 mg daily x 21 days, then d/c plavix and decrease ASA to81mg daily Allow for permissive hypertension for initial [...] no evidence of hemorrhagic transformation. Reviewed with [facility] Neurology, Dr. Wagner (continuity as also evaluated her last night) Patient is currently followed at [facility] in [place] for TBI. Will continue to attempt inpatient rehab placement if at all possible. Hemiparesis affecting dominant side as late effect of cerebrovascular accident (CVA)8976Lexaomr03/16/2024 Overview (12/10/2024): Manages her anxiety with p.r.n. diazepam and p.r.n. alprazolam. Likely contributing to her reports of medication intolerance. Concussion without loss of kepvcntfpmqgj38/16/2024Hypertension with intolerance to multiple antihypertensive drugs01/27/2024 Overview (12/10/2024): Patient reports intolerance to all classes of blood pressure medications. Vice Principal is considering renal denervation surgery for this. [...] regimen as warranted over time. Post concussion durivsqi54/16/2024Superficial aslnmkookakmfmdm58/16/2024Facial droop01/27/2024History of opvkus7101/27/20247242Repyibqdsi19/16/2024lteration in neurologic /16/2024Elevated blood pressure reading with diagnosis of yxexhldcotpj94/16/2024Left ovarian cyst09/03/2023ight upper quadrant abdominal pain09/03/2023Exudative age-related macular degeneration, unspecified laterality, unspecified stage07/24/2023Other speech teqnkdvxntz29/09/2024Stroke (cerebrum)07/06/2023ardiomyopathy, unspecified type03/18/2022aroxysmal SVT (supraventricular tachycardia)04/07/2021LVH (left ventricular hypertrophy) 01/26/2021Mast cell activation yiiawwfy98/09/2021Hypertensive kidney disease, stage Lipid ykeifztt82/18/2011Sphincter of Oddi ndbwascfgem92/09/2011 Esophageal hgwktb9703/22/2010 Overview (01/27/2024): EGD 03/2009 Reactive gastropathy Degeneration of cervical intervertebral disc06/25/2008Raynaud's syndrome 01/02/2007Irritable bowel bnggrlze91/07/2005 Encounters DateTypeDepartmentCare JjskDzpumnsvrgd48/01/2025 10:50 AM GROCERY SACKER - 02/10/2025 3:42 PM [facility] [address] [place] [phone] Jensen Jacob DO Chest pain, unspecified type (Primary Dx); Elevated blood pressure reading with diagnosis of hypertension Discharge Disposition: Home or Self Care02/10/20259456Gfsqez81/20/2025 4:32 PM GROCERY SACKER - 01/30/2025 11:46 PM [facility] [address] [place] [phone] Andrea Gamboa DO Dysarthria (Primary Dx); Right facial numbness; Nonintractable headache, unspecified chronicity pattern, unspecified headache type Discharge Disposition: Home or Self Care01/30/20253705Ljdsgi97/07/2025 10:30 AM GROCERY SACKER Office Visit [facility] [place] [address] [place] [phone] Yves Ballard MD Hyperlipidemia LDL goal <70 (Primary Dx); Elevated lipoprotein(a); Atherosclerosis of abdominal aorta; Cerebrovascular accident (CVA), unspecified mechanism (H); Statin intolerance; Hypertension with intolerance to multiple antihypertensive drugs; Medication intolerance ( multiple 40 drugs)01/17/20256159Fhufif26/29/2025 7:47 PM CDT - 01/08/2025 11:[facility] [address] [place] [address] Neil Marsh MD Chest pain (Primary Dx); Headache; Hypertension Discharge Disposition: Home or Self Care01/08/20255153Hcupsx98/01/2025Telephone [facility] [place] [address] [place] [phone] Yves Ballard MD Tghgaiwmscb79/30/2025 4:40 PM CDTVirtual Visit [facility] [address] [place] [phone] Yves Ballard MD Hyperlipidemia LDL goal <70; Statin intolerance; Elevated lipoprotein(a); Atherosclerosis of abdominal aorta12/[facility] [address] [place] [phone] Yves Ballard MD Patient Cqkuhmu9112/08/2024 6:08 AM CDT - 12/08/2024 10:27 AM [facility] [address] [place] [address] Arabella Suarez MD Chest pain, unspecified type (Primary Dx); Headache, unspecified headache type; Hypertension, unspecified type; Paresthesias; Neck pain Discharge Disposition: Home or Self Care12/08/2024Travelfrom Last 3 Months Immunizations ImmunizationAdministration DatesNext DueTD,PF 7+ (Tenivac)11/08/2017TDAP (Adacel,Boostrix)05/30/2007 Family History Medical HistoryRelationCommentsProstate CancerBrotherCancerSisterRelationStatus CommentsBrotherSister Social History Tobacco UseTypesPacks/DayYears UsedDateSmoking Tobacco: NeverSmokeless Tobacco: Never Tobacco Cessation:Counseling Given: Not Answered Alcohol UseStandard Drinks/WeekCommentsNot Currently0 (1 standard drink = 0.6 oz pure alcohol)PHQ-2AnswerDate RecordedPHQ-2 Fihkv282dolescent Education AnswerDate RecordedGetting School Help NeededNot on file3 CommentsNoSex and Gender InformationValueDate RecordedSex Assigned at BirthNot on fileLegal WcuSihjbz76/04/2012 3:34 AM CSTGender IdentityNot on fileSexual OrientationNot on file Last Filed Vital Signs Vital SignReadingTime TakenCommentsBlood Yjcumegg436/9302/10/2025 3:15 PM GROCERY SACKER Fjpuv116302/10/2025 3:15 PM PDAOmftriaesxh38.3 ??C (99.1 ??F)02/10/2025 10:56 AM CSTRespiratory Ninb211704/13/2024 12:45 PM CSTOxygen Bldseepawg27%02/10/2025 12:45 PM CSTInhaled Oxygen Concentration--Cigiae40.1 kg (137 lb)02/10/2025 10:53 AM EBWLwhiyh663.5 cm (5' 2)02/10/2025 10:53 AM CSTBody Mass Index25.0602/10/2025 10:53 AM GROCERY SACKER Plan of Treatment Health MaintenanceDue DateLast DoneCommentsADVANCE CARE KUUXNBIM56/10/1951NNUAL REVIEW OF HM SGYIMR58 1950T JUATQZNXCMFG05/10/1119CALM58/10/1951FIT 1950FLEX SIG1950 7037VGNGBSYMWLBT50/10/1951DNA (Cologuard)1950 PNEUMOCOCCAL VACCINE 50+ YEARS (1 of 1 - PCV)2000RSV VACCINE (1 - Risk 50- 74 years 1-dose series)2000ZOSTER VACCINE (1 of 2)2000COVID-19 VACCINE ( - 2024- season)/06/2021, 05/23/2020INFLUENZA VACCINE (#1)2024MEDICARE ANNUAL WELLNESS VISIT/01/2024, 01/21/2022, 01/19/2021, Additional history goxswtNQHJG53, 01/27/2024FALL RISK SYLPJYXXPR38/07/202611/09/2024, 06/13/2024BMP, 01/30/2025, 01/08/2025, Additional history existsMAMMO CSXGCANJG25/16/2027 11/26/2024, 11/26/2024, 10/09/2023, Additional history existsDTAP/TDAP/TD VACCINE (3 - Td or Tdap)8011/08/2017, 05/30/2007DIABETES SCREENING , 01/30/2025, 01/30/2025, Additional history exists OEOOLVGHLFZ91OLORECTAL CANCER QNNDGMJGK81/31/2033HEPATITIS C HDCOASMKCAofkhuvwv00/29/2016PHQ-2 (once per calendar year)Zvoxzciji23/30/2025, 10/17/2023, 07/25/20237603MEUNUDEQJKCzgwcihnk78/20/2025, 09/27/2023, 08/27/2023HPV VACCINE (No Doses Required)CompletedMENINGITIS VACCINEAged OutNo longer eligible based on patient's age to complete this topic Procedures Procedure NamePriorityDate/TimeAssociated DiagnosisCommentsEXTRA PURPLE TOP TUBE STAT104/13/2024 12:13 PM GROCERY SACKER EXTRA ONUPISJZ26/01/2025 12:13 PM GROCERY SACKER BASIC METABOLIC PANEL (LIMITED OCCURRENCES)STAT104/13/2024 12:13 PM GROCERY SACKER XR CHEST 2 LLWRTSBHG64/01/2025 11:36 AM GROCERY SACKER CBC WITH PLATELETS AND DIFFERENTIAL (LIMITED OCCURRENCES)STAT104/13/2024 11:01 AM GROCERY SACKER EXTRA BLUE TOP GCOBRYNN56/01/2025 11:01 AM GROCERY SACKER CBC WITH PLATELETS AND SJFQZLGSIIDEIZBL89/01/2025 11:01 AM GROCERY SACKER EXTRA OMAGJHVR83/01/2025 11:01 AM GROCERY SACKER TROPONIN T, HIGH YPWCSFMBLGNNHJN01/01/2025 11:01 AM GROCERY SACKER EKG 12-LEAD, TRACING IPWHTVOX10/01/2025 10:51 AM GROCERY SACKER MR BRAIN W/O & W BTDUVWAOSPWA58/20/2025 10:31 PM GROCERY SACKER EKG 12-LEAD, TRACING THEQNEIF93/20/2025 4:59 PM GROCERY SACKER CBC WITH PLATELETS AND DIFFERENTIAL (LIMITED OCCURRENCES)01/30/2025 4:56 PM GROCERY SACKER ROUTINE UA WITH MICROSCOPIC REFLEX TO YHXXIXONHZY05/20/2025 4:56 PM GROCERY SACKER EXTRA RED TOP JXUZVFNQ18/20/2025 4:56 PM GROCERY SACKER CBC WITH PLATELETS AND FALKGZMGQHPGKSBK43/20/2025 4:56 PM GROCERY SACKER EXTRA ZLRKQNNR42/20/2025 4:56 PM GROCERY SACKER TROPONIN T, HIGH WVJXTCXAULSDQSF84/20/2025 4:56 PM GROCERY SACKER PARTIAL THROMBOPLASTIN ONCQYVRE83/20/2025 4:56 PM GROCERY SACKER VAFRPXT8401/30/2025 4:56 PM GROCERY SACKER BASIC METABOLIC PANEL (LIMITED OCCURRENCES)STAT104/01/2024 4:56 PM GROCERY SACKER CTA HEAD NECK W PAVWIFKRMQQF11/20/2025 4:[address] HEAD W/O TMLIRIEDLHBE43/20/2025 4:52 PM GROCERY SACKER GLUCOSE BY TNVWMVFBR39/20/2025 4:32 PM GROCERY SACKER TROPONIN T, HIGH UHERQACLQCBUVPZ36/29/2025 10:12 PM CDT XR CHEST 2 UWPCRJSQQ34/29/2025 9:08 PM CDT D DIMER EIOKVGTFAYJTFUHH18/29/2025 8:02 PM CDT EXTRA RED TOP PSSDXECT62/29/2025 8:02 PM CDT EXTRA BLUE TOP YKRELIPH05/29/2025 8:02 PM CDT EXTRA RSVFCCLK07/29/2025 8:02 PM CDT CBC WITH PLATELETS AND DIFFERENTIAL (LIMITED OCCURRENCES)STAT1 8:01 PM CDT CBC WITH PLATELETS AND VLYEASRHGKQLIHYC31/29/2025 8:01 PM CDT TROPONIN T, HIGH OJDNBSVEGBDMJWS48/29/2025 8:01 PM CDT BASIC METABOLIC PANEL (LIMITED OCCURRENCES)01/08/2025 8:01 PM CDT EKG 12-LEAD, TRACING GNSGFVNP41/29/2025 7:51 PM CDT TROPONIN T, HIGH LBMLGDJGKMFYYXO89/28/2025 9:02 AM CDT XR CHEST 2 YAMSJTLEL29/28/2025 8:38 AM CDT MRA NECK (CAROTIDS) W/O & W HGLEYLCUBIXY69/28/2025 8:26 AM CDT MRA BRAIN (MILLE LACS OF [place]) W/O AXWGWBWUSAQC31/28/2025 8:26 AM CDT MR BRAIN W/O & W IJXYEAKKYFTD14/28/2025 8:26 AM CDT BLOOD GAS XKOWUVEJYR48/28/2025 6:57 AM CDT CBC WITH PLATELETS AND DIFFERENTIAL (LIMITED OCCURRENCES)STAT12/08/2024 6:24 AM CDT T4 EULUFYZI09/28/2025 6:24 AM CDT MAGNESIUM (LIMITED OCCURRENCES)STAT12/08/2024 6:24 AM CDT TSH WITH FREE T4 LEDKJCIDNJ34/28/2025 6:24 AM CDT D DIMER DPLVIKEOSYPTLNDY52/28/2025 6:24 AM CDT HEPATIC FUNCTION PANEL (LIMITED OCCURRENCES)Add-On12/08/2024 6:24 AM CDT EXTRA RED TOP LWOKJEIE77/28/2025 6:24 AM CDT EXTRA BLUE TOP WBVOTPUJ88/28/2025 6:24 AM CDT CBC WITH PLATELETS AND PPJUBJWKSGJEVQGX32/28/2025 6:24 AM CDT EXTRA THWTSIDA76/28/2025 6:24 AM CDT TROPONIN T, HIGH ZOBUAUHPOUTVPFO86/28/2025 6:24 AM CDT BASIC METABOLIC PANEL (LIMITED OCCURRENCES)STAT12/08/2024 6:24 AM CDT EKG 12-LEAD, TRACING NGMXCFSS98/28/2025 6:13 AM CDT LIPID REFLEX TO DIRECT LDL MMZDCNaumxqy37/10/2024 8:29 AM GROCERY SACKER Hyperlipidemia LDL goal <70 from Last 3 Months or Most Recently Relevant to Health Maintenance Results * Extra Purple Top Tube (02/10/2025 12:13 PM GROCERY SACKER)ComponentValueRef RangeTest MethodAnalysis TimePerformed AtPathologist SignatureHold CkgoqknhMER67/01/2025 1:32 PM [facility] LABORATORYSpecimen (Source)Anatomical Location / Laterality Collection Method / VolumeCollection TimeReceived TimeBloodBLOOD SPECIMEN / UnknownVenipuncture / Obajqyd4302/10/2025 12:13 PM CST02/10/2025 12:20 PM GROCERY SACKER Narrative Authorizing ProviderResult TypeResult StatusAasherman Jacob DOLAB - BLOOD ORDERABLESFinal ResultPerforming OrganizationAddressCity/State/ZIP CodePhone Number [facility] [address] [facility] (1st floor, no room number) [place] [address], [facility] * Basic Metabolic Panel (Limited Occurrences) (02/10/2025 12:13 PM GROCERY SACKER) Only the most recent of4 resultswithin the time period is included. ComponentValueRef RangeTest MethodAnalysis TimePerformed AtPathologist Signature Ddmtey844603 - 145 mmol/L104/13/2024 12:40 PM [facility] LABORATORYPotassium4.03.4 - 5.3 mmol/L104/13/2024 12:40 PM [facility] SQTKHMEINKQyfkepxy34771 - 107 mmol/L 02/10/2025 12:40 PM [facility] LABORATORYCarbon Dioxide (CO2)2522 - 29 mmol/L 02/10/2025 12:40 PM [facility] LABORATORYAnion Ohp759 - 15 mmol/L104/13/2024 12:40 PM [facility] LABORATORYUrea Eziavpej96.58.0 - 23.0 mg/dL02/10/2025 12:40 PM [facility] LABORATORYCreatinine0.700.51 - 0.95 mg/dL02/10/2025 12:40 PM [facility] LABORATORYGFR Xtkltdqk50>60 mL/min/1.65b02102/10/2025 12:40 PM [facility] LABORATORYComment:eGFR calculated using 2020 CKD-EPI equation.Calcium9.38.8 - 10.4 mg/dL02/10/2025 12:40 PM [facility] LBQULYMXNJSkhrprm7941 - 99 mg/dL02/10/2025 12:40 PM [facility] LABORATORYSpecimen (Source)Anatomical Location / LateralityCollection Method / VolumeCollection TimeReceived TimeBloodBLOOD SPECIMEN / UnknownVenipuncture / Zkqrrby5902/10/2025 12:13 PM CST02/10/2025 12:20 PM GROCERY SACKER Narrative Authorizing ProviderResult TypeResult StatusJensen Jacob DOLAB - BLOOD ORDERABLESFinal ResultPerforming OrganizationAddressCity/State/ZIP CodePhone Number [facility] [address] [facility], no room number) [place] [address], [facility] * XR Chest 2 Views (02/10/2025 11:36 AM GROCERY SACKER) Only the most recent of3 resultswithin the time period is included. Anatomical RegionLateralityModalityChestDigital RadiographySpecimen (Source) Anatomical Location / LateralityCollection Method / VolumeCollection Time Received Time02/10/2025 11:36 AM GROCERY SACKER Impressions 02/10/2025 11:40 AM GROCERY SACKER IMPRESSION: The cardiac silhouette is unchanged. No pneumothorax. No pleural effusions. No focal airspace consolidations. Narrative 02/10/2025 11:40 AM GROCERY SACKER EXAM: XR CHEST 2 VIEWS LOCATION: [facility] DATE: 02/10/2025 INDICATION: chest pain COMPARISON: 01/08/2025 Procedure Note Jim Madera MD - 02/10/2025 EXAM: XR CHEST 2 VIEWS LOCATION: [facility] DATE: 02/10/2025 INDICATION: chest pain COMPARISON: 01/08/2025 IMPRESSION: The cardiac silhouette is unchanged. No pneumothorax. Nopleural effusions. No focal airspace consolidations. Authorizing ProviderResult TypeResult Danyel Jacob DOIMG DIAGNOSTIC IMAGING ORDERABLESFinal Result * Extra Blue Top Tube (02/10/2025 11:01 AM GROCERY SACKER) Only the most recent of3 resultswithin the time period is included. ComponentValueRef RangeTest MethodAnalysis TimePerformed AtPathologist Signature Hold BmrzlioxAPB47/01/2025 12:08 PM [facility] LABORATORYSpecimen (Source)Anatomical Location / LateralityCollection Method / VolumeCollection TimeReceived TimeBlood BLOOD SPECIMEN / UnknownVenipuncture / Wqqrofe2402/10/2025 11:01 AM CST02/10/2025 11:07 AM [facility] Narrative Authorizing ProviderResult TypeResult StatusJensen Jacob DOLAB - BLOOD ORDERABLESFinal ResultPerforming OrganizationAddressCity/State/ZIP CodePhone Number [facility] [address] [facility], no room number) [place] [address], [facility] * CBC with platelets and differential (02/10/2025 11:01 AM [facility]) Only the most recent of4 resultswithin the time period is included. ComponentValueRef RangeTest MethodAnalysis TimePerformed AtPathologist Signature WBC Count4.964.00 - 11.00 10e3/uL02/10/2025 11:10 AM [facility] LABORATORYRBC Count 3.943.80 - 5.20 10e6/uL02/10/2025 11:10 AM [facility] UTCUIPZFIRUgpdaljlij63.711.7 - 15.7 g/dL02/10/2025 11:10 AM [facility] JYFKHJDIXQVooydjuthl55.235.0 - 47.0 % 02/10/2025 11:10 AM [facility] FHBHGRQBOIYJA50.378.0 - 100.0 fL02/10/2025 11:10 AM [facility] YWSTDEHVUFXMP19.726.5 - 33.0 pg02/10/2025 11:10 AM [facility] LABORATORYMCHC 33.231.5 - 36.5 g/dL02/10/2025 11:10 AM [facility] HMNUYOQRPCDKR92.910.0 - 15.0 % 02/10/2025 11:10 AM [facility] LABORATORYPlatelet Zvplg634887 - 450 10e3/uL02/10/2025 11:10 AM [facility]% Tzskqpohcyk86.7%02/10/2025 11:10 AM [facility]% Gzfzwnxvbyf81.0%02/10/2025 11:10 AM [facility]% Monocytes6.9%02/10/2025 11:10 AM [facility]% Eosinophils1.0%02/10/2025 11:10 AM [facility]% Basophils0.2%02/10/2025 11:10 AM [facility]% Immature Granulocytes0.2% 02/10/2025 11:10 AM [facility] LABORATORYNRBCs per 100 WBC0.0<1.0 /8288002/10/2025 11:10 AM [facility] LABORATORYAbsolute Neutrophils3.611.60 - 8.30 10e3/uL02/10/2025 11:10 AM [facility] LABORATORYAbsolute Lymphocytes0.940.80 - 5.30 10e3/uL02/10/2025 11:10 AM [facility] LABORATORYAbsolute Monocytes0.340.00 - 1.30 10e3/uL02/10/2025 11:10 AM [facility] Eosinophils0.050.00 - 0.70 10e3/uL02/10/2025 11:10 AM [facility] Basophils<0.030.00 - 0.20 10e3/uL02/10/2025 11:10 AM [facility] Immature Granulocytes<0.03<=0.40 10e3/uL 02/10/2025 11:10 AM [facility] NRBCs<0.0310e3/uL02/10/2025 11:10 AM [facility]ATORYSpecimen (Source)Anatomical Location / LateralityCollection Method / VolumeCollection TimeReceived TimeBloodBLOOD SPECIMEN / Unknown Venipuncture / Oz[place]9602/10/2025 11:01 AM CST02/10/2025 11:07 AM [facility] Narrative Authorizing ProviderResult TypeResult StatusAasherman Jacob DOLAB - BLOOD ORDERABLESFinal ResultPerforming OrganizationAddressCity/State/ZIP CodePhone Number [facility] [address] (1st floor, no room number) [place] [address], [facility] * Troponin T, High Sensitivity (02/10/2025 11:01 AM GROCERY SACKER) Only the most recent of6 resultswithin the time period is included. ComponentValueRef RangeTest MethodAnalysis TimePerformed AtPathologist Signature Troponin T, High Sensitivity<6<=14 ng/L104/13/2024 11:29 AM [facility] Comment: Either a High Sensitivity Troponin [...] Unknown 02/10/2025 11:01 AM CST02/10/2025 11:08 AM GROCERY SACKER Narrative Authorizing ProviderResult TypeResult StatusJensen Jacob DOLAB - BLOOD ORDERABLESFinal ResultPerforming OrganizationAddressCity/State/ZIP CodePhone Number [facility] [address] (1st floor, no room number) [place] [address] * EKG 12 lead (02/10/2025 10:51 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 ComponentValueRef RangeTest MethodAnalysis TimePerformed AtPathologist Signature Systolic Blood PressuremmHgRADIOLOGY RESULTSDiastolic Blood PressuremmHg RADIOLOGY RESULTSVentricular Pbcu18NUPLKNRGPJJV RESULTSAtrial Dwuc54YVAVOKXPQXGS RESULTSPR Fqqyzttb225goJRQSPLAQY RESULTSQRS Opqfgxzw16woPAVUAHLWL MMDVDATLE574wc RADIOLOGY PANURRLVZj718scXVXJRRBPW RESULTSP Kpxz83yqwtbdlYAXFWBMWJ RESULTSR AXIS 27degreesRADIOLOGY RESULTST Ssbu26yltgfesRLGMGWLRY RESULTSInterpretation ECG Sinus rhythm Normal ECG When compared with ECG of 30-Jan-2025 16:59, No significant change was found Unconfirmed report - interpretation of this ECG is computer generated - see medical record for final interpretation Confirmed by - EMERGENCY ROOM, PHYSICIAN ([id number]), graphics editor Raymundo Bustamante ([id number]) on 02/10/2025 11:34:31AM RADIOLOGY RESULTSSpecimen (Source)Anatomical Location / LateralityCollection Method / VolumeCollection TimeReceived Time02/10/2025 10:51 AM CST12/03/2024 11:34 AM GROCERY SACKER Narrative Authorizing ProviderResult TypeResult StatusKristgunnar BORGES ORDERABLESEdited Result - FinalPerforming OrganizationAddressCity/State/ZIP Code Phone Number RADIOLOGY RESULTS * MR Brain w/o & w Contrast (01/30/2025 10:31 PM GROCERY SACKER) Only the most recent of2 resultswithin the time period is included. Anatomical RegionLateralityModalityHead, SUBRAD MR NEURO, UMP MR NEURO, RAD MR Magnetic ResonanceSpecimen (Source)Anatomical Location / LateralityCollection Method / VolumeCollection TimeReceived Time01/30/2025 10:31 PM GROCERY SACKER Impressions 01/30/2025 11:10 PM GROCERY SACKER IMPRESSION: 1. ??No acute intracranial abnormality. 2. ??Chronic right lentiform nucleus lacunar infarct. 3. 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 Narrative 01/30/2025 11:10 PM GROCERY SACKER EXAM: MR BRAIN W/O and W CONTRAST LOCATION: [facility] DATE: 01/30/2025 INDICATION: Slurred speech, right facial [...] MR BRAIN W/O and W CONTRAST LOCATION: [facility] DATE: 01/30/2025 INDICATION: Slurred speech, right facial [...] infarct with Wallerian degeneration. Authorizing ProviderResult TypeResult Harish Gamboa [facility] MRI ORDERABLESFinal Result * Extra Red Top Tube (01/30/2025 4:56 PM GROCERY SACKER) Only the most recent of3 resultswithin the time period is included. ComponentValueRef RangeTest MethodAnalysis TimePerformed AtPathologist Signature Hold NazmtnvrWAS46/20/2025 6:05 PM [facility] LABORATORYSpecimen (Source)Anatomical Location / LateralityCollection Method / VolumeCollection TimeReceived TimeBlood BLOOD SPECIMEN / UnknownVenipuncture / Kfnlsdh3801/30/2025 4:56 PM CST01/30/2025 5:01 PM GROCERY SACKER Narrative Authorizing ProviderResult TypeResult StatusAndrea Gamboa DOLAB - BLOOD ORDERABLES Final ResultPerforming OrganizationAddressCity/State/ZIP CodePhone Number [facility] [address] (1st floor, no room number) [place] [address], [facility] * UA with Microscopic reflex to Culture (01/30/2025 4:56 PM GROCERY SACKER)ComponentValue Ref RangeTest MethodAnalysis TimePerformed AtPathologist SignatureColor Urine StrawColorless, Straw, Light Yellow, Hypjvr6101/30/2025 5:08 PM CST LABORATORY Appearance IinbiKhzqbQzudf53/20/2025 5:08 PM CST LABORATORYGlucose Urine NegativeNegative mg/dL01/30/2025 5:08 PM [facility] LABORATORYBilirubin Urine FtctyrqwFauqaczr44/20/2025 5:08 PM [facility] LABORATORYKetones UrineNegative Negative mg/dL01/30/2025 5:08 PM [facility] LABORATORYSpecific Celina Urine1.010 1.003 - 1.5932101/30/2025 5:08 PM [facility] LABORATORYBlood UrineNegativeNegative 01/30/2025 5:08 PM [facility] LABORATORYpH Urine6.55.0 - 7.011 5:08 PM GROCERY SACKER LABORATORYProtein Albumin UrineNegativeNegative mg/dL01/30/2025 5:08 PM [facility] LABORATORYUrobilinogen UrineNormalNormal mg/dL01/30/2025 5:08 PM [facility] LABORATORYNitrite NcyngJsrldjmeNmgoygiq13/20/2025 5:08 PM [facility] Leukocyte Esterase LpoukRorynzlvRvbuiyjz95/20/2025 5:08 PM [facility] LABORATORYRBC Urine<1<=2 /HPF01/30/2025 5:08 PM [facility] LABORATORYWBC Urine1<=5 /HPF01/30/2025 5:08 PM [facility] LABORATORYSquamous Epithelials Urine<1<=1 /HPF01/30/2025 5:08 PM [facility] LABORATORYSpecimen (Source)Anatomical Location / LateralityCollection Method / VolumeCollection TimeReceived TimeUrineURINE SPECIMEN OBTAINED BY CLEAN CATCH PROCEDURE / UnknownNon-blood Collection / Oemfrrt5401/30/2025 4:56 PM CST01/30/2025 5:01 PM GROCERY SACKER Narrative LABORATORY - 01/30/2025 5:08 PM GROCERY SACKER Urine Culture not indicated Authorizing ProviderResult TypeResult StatusFerris Ye DOLAB - URINE ORDERABLES Final ResultPerforming OrganizationAddressCity/State/ZIP CodePhone Number LABORATORY [facility] Lab [address] Lab (1st floor, no room number) [place] [address], [facility] * INR (01/30/2025 4:56 PM GROCERY SACKER)ComponentValueRef RangeTest MethodAnalysis Time Performed AtPathologist SignatureINR0.970.85 - 1.1511/ 5:21 PM [facility] GQAZYXDHWLGZ74.811.8 - 14.8 Mwmoaga1601/30/2025 5:21 PM [facility] LABORATORYSpecimen (Source)Anatomical Location / LateralityCollection Method / VolumeCollection TimeReceived TimeBloodBLOOD SPECIMEN / UnknownVenipuncture / Qftaatj6901/30/2025 4:56 PM CST01/30/2025 5:01 PM GROCERY SACKER Narrative Authorizing ProviderResult TypeResult StatusFermartha Gamboa DOLAB - BLOOD ORDERABLES Final ResultPerforming OrganizationAddressCity/State/ZIP CodePhone Number [facility] [address] Lab (1st floor, no room number) [place] [address], [facility] * Partial thromboplastin time (01/30/2025 4:56 PM GROCERY SACKER)ComponentValueRef Range Test MethodAnalysis TimePerformed AtPathologist WjrjwruyapLDH9637 - 38 Seconds 01/30/2025 5:21 PM [facility] LABORATORYSpecimen (Source)Anatomical Location / LateralityCollection Method / VolumeCollection TimeReceived TimeBloodBLOOD SPECIMEN / UnknownVenipuncture / Yzpcwdy8701/30/2025 4:56 PM CST01/30/2025 5:01 PM GROCERY SACKER Narrative Authorizing ProviderResult TypeResult StatusAndrea Gamboa DOLAB - BLOOD ORDERABLES Final ResultPerforming OrganizationAddressCity/State/ZIP CodePhone Number [facility] [address] Lab (1st floor, no room number) [place] [address], [facility] * CTA Head Neck with Contrast (01/30/2025 4:52 PM GROCERY SACKER)Anatomical Region LateralityModalityHead, SUBRAD CT NEURO, SUBRAD CT NEURO, UMP CT NEURO, RAD CT Computed TomographySpecimen (Source)Anatomical Location / LateralityCollection Method / VolumeCollection TimeReceived Time01/30/2025 4:52 PM GROCERY SACKER Impressions 01/30/2025 5:28 PM GROCERY SACKER IMPRESSION: HEAD CTA: 1. ??No new intracranial [...] Dr Alvaro Neves at ??5:24 PM 01/30/2025 GROCERY SACKER/CDT. Narrative 01/30/2025 5:28 PM GROCERY SACKER EXAM: CTA HEAD NECK W CONTRAST LOCATION: [facility] DATE: 01/30/2025 INDICATION: Code Stroke, evaluate for LVO. Right facial numbness. Slurred speech. Headache. COMPARISON: CTA head and neck 01/27/2024, MRA head and neck 11/30/2024 CONTRAST: 71mL Giqqfvmdt403 TECHNIQUE: Head and neck CT angiogram with [...] CTA head and neck 01/27/2024. Right origin SENIOR RISK MANAGER NECK CTA: Right mid to distal cervical [...] EXAM: CTA HEAD NECK W CONTRAST LOCATION: [facility] DATE: 01/30/2025 INDICATION: Code Stroke, evaluate for LVO. Right facial numbness. Slurredspeech. Headache. COMPARISON: CTA head and neck 01/27/2024, MRA head and neck 11/30/2024 CONTRAST: 71mL Kiypcjpct760 TECHNIQUE: Head and neck CT angiogram with [...] priorCTA head and neck 01/27/2024. Right origin SENIOR RISK MANAGER NECK CTA: Right mid to distal cervical [...] at 5:24 PM 5CST/CDT. Authorizing ProviderResult TypeResult StatusFerris Cooper [facility] CT ORDERABLESFinal Result * CT Head w/o Contrast (01/30/2025 4:52 PM GROCERY SACKER)Anatomical RegionLaterality ModalityHead, SUBRAD CT NEURO, SUBRAD CT NEURO, UMP CT NEURO, RAD CTComputed TomographySpecimen (Source)Anatomical Location / LateralityCollection Method / VolumeCollection TimeReceived Time01/30/2025 4:52 PM GROCERY SACKER Impressions 01/30/2025 5:28 PM GROCERY SACKER IMPRESSION: 1. ??No acute cranial hemorrhage identified. 2. ??No evidence CT acute infarct. Aspect score 10. 3. ??Chronic intracranial changes described above. Dr Andrea Gamboa was notified by Dr Alvaro Neves at ??5:07 PM 01/30/2025 GROCERY SACKER/CDT. Narrative 01/30/2025 5:28 PM GROCERY SACKER EXAM: CT HEAD W/O CONTRAST LOCATION: [facility] DATE: 01/30/2025 INDICATION: Code Stroke, rule out [...] 01/30/2025 EXAM: CT HEAD W/O CONTRAST LOCATION: [facility] DATE: 01/30/2025 INDICATION: Code Stroke, rule out [...] at 5:07 PM 5CST/CDT. Authorizing ProviderResult TypeResult StatusFermartha Gamboa [facility] CT ORDERABLESFinal Result * (ABNORMAL) Glucose by meter (01/30/2025 4:32 PM GROCERY SACKER)ComponentValueRef Range Test MethodAnalysis TimePerformed AtPathologist SignatureGLUCOSE BY METER POCT 112(H)70 - 99 mg/dL01/30/2025 4:39 PM CST LABORATORY POCComment:Dr/RN NotifiedSpecimen (Source)Anatomical Location / LateralityCollection Method / VolumeCollection TimeReceived TimeBlood, CapillaryBLOOD SPECIMEN / Unknown 01/30/2025 4:32 PM CST01/30/2025 4:39 PM GROCERY SACKER Narrative Authorizing ProviderResult TypeResult StatusProvider UnknownLAB - BEAKER POCT Final ResultPerforming OrganizationAddressCity/State/ZIP CodePhone Number LABORATORY [facility] Lab [address] (1st floor, no room number) [place] [address], [facility] * D dimer quantitative (01/08/2025 8:02 PM CDT) Only the most recent of2 resultswithin the time period is included. ComponentValueRef RangeTest MethodAnalysis TimePerformed AtPathologist Signature D-Dimer Quantitative0.360.00 - 0.50 ug/mL FEU1 8:26 PM CDTRH LABORATORY Specimen (Source)Anatomical Location / LateralityCollection Method / Volume Collection TimeReceived TimeBloodSTRUCTURE OF RIGHT UPPER LIMB / Unknown Venipuncture / Ugohhan1601/08/2025 8:02 PM CDT1 8:06 PM CDT Narrative [...] out pulmonary embolism: The ADJUST-PE Study. TEODORO 2014;311:[id number].; HJ Godwin et al. Diagnostic accuracy of conventional or age adjusted D-dimer cutoff values in older patients with suspected venous thromboembolism. Systemic review and meta- analysis. BMJ 2013:346:f2492. Authorizing ProviderResult TypeResult StatusKira JOSE - BLOOD ORDERABLESFinal ResultPerforming OrganizationAddressCity/State/ZIP CodePhone Number LABORATORY [facility] Lab [address] (1st floor, no room number) [place] [address], [facility] * MRA Angiogram Neck w/o & w Contrast (12/08/2024 8:26 AM CDT)Anatomical Region LateralityModalityNeck, SUBRAD MR NEURO, UMP MR NEURO, RAD MRMagnetic ResonanceSpecimen (Source)Anatomical Location / LateralityCollection Method / VolumeCollection TimeReceived Time12/08/2024 8:26 AM CDT Impressions 12/08/2024 9:03 AM CDT IMPRESSION: HEAD MRI: 1. ??No MRI evidence for an acute intracranial process. 2. ??Small chronic infarctions in the right basal ganglia and left moore radiata. 3. 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 HEAD MRA: 1. 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 2. ??Unchanged multifocal severe stenosis/near occlusion of the proximal right M2 MCA branches. 3. ??Additional multifocal arterial stenoses are not significantly changed and likely represent atherosclerosis.. 4. 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 NECK MRA: 1. ??Unchanged diminutive left vertebral artery. 2. ??Mild irregularity of the mid cervical ICAs is unchanged and may represent fibromuscular dysplasia. Narrative 12/08/2024 9:03 AM CDT EXAM: MR BRAIN W/O and W CONTRAST, MRA NECK (CAROTIDS) W/O and W CONTRAST, MRA BRAIN (MILLE LACS OF [place]) W/O CONTRAST LOCATION: [facility] DATE: 12/08/2024 INDICATION: headache, ataxia, vertigo COMPARISON: CT angiogram dated 01/27/2024. Brain MRI dated 01/27/2024. Brain MRI and head and neck MR angiograms dated 09/27/2023. CONTRAST: 10 mL Gadavist intravenous TECHNIQUE: 1) Routine multiplanar multisequence head MRI without and with intravenous contrast. 2) 3D rulc-ur-ckeamc head MRA without intravenous contrast. 3) Neck [...] Multiple additional mild to moderate arterial stenoses likelyrepresent atherosclerosis. No aneurysm or high flow vascular [...] NECK (CAROTIDS) W/O and W CONTRAST,MRA BRAIN (MILLE LACS OF [place]) W/O CONTRAST LOCATION: [facility] DATE: 12/08/2024 INDICATION: headache, ataxia, vertigo COMPARISON: CT angiogram dated 01/27/2024. Brain MRI dated 01/27/2024.Brain MRI and head and neck MR angiograms dated 09/27/2023. CONTRAST: 10 mL Gadavist intravenous TECHNIQUE: 1) Routine multiplanar multisequence head MRI without and with intravenous contrast. 2) 3D ryim-ll-yprdqt head MRA without intravenous contrast. 3) Neck MRA without and with IV contrast. Stenosis measurements madeaccording to NASCET criteria unless otherwise specified. FINDINGS: HEAD MRI: INTRACRANIAL CONTENTS: No acute or subacute infarct. Small chronicinfarctions in the right basal ganglia and left moore radiata. No mass,acute hemorrhage, or extra-axial fluid collections. Patchy nonspecificT2/FLAIR hyperintensities within the [...] ICAs is unchanged and mayrepresent fibromuscular dysplasia. Authorizing ProviderResult TypeResult StatusTracy Richa [facility] MRI ORDERABLESFinal Result * MRA Angiogram Head w/o Contrast (12/08/2024 8:26 AM CDT)Anatomical Region LateralityModalityHead, SUBRAD MR NEURO, UMP MR NEURO, RAD MRMagnetic ResonanceSpecimen (Source)Anatomical Location / LateralityCollection Method / VolumeCollection TimeReceived Time12/08/2024 8:26 AM CDT Impressions 12/08/2024 9:03 AM CDT IMPRESSION: HEAD MRI: 1. ??No MRI evidence for an acute intracranial process. 2. ??Small chronic infarctions in the right basal ganglia and left moore radiata. 3. 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 HEAD MRA: 1. 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 2. ??Unchanged multifocal severe stenosis/near occlusion of the proximal right M2 MCA branches. 3. ??Additional multifocal arterial stenoses are not significantly changed and likely represent atherosclerosis.. 4. 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 NECK MRA: 1. ??Unchanged diminutive left vertebral artery. 2. ??Mild irregularity of the mid cervical ICAs is unchanged and may represent fibromuscular dysplasia. Narrative 12/08/2024 9:03 AM CDT EXAM: MR BRAIN W/O and W CONTRAST, MRA NECK (CAROTIDS) W/O and W CONTRAST, MRA BRAIN (MILLE LACS OF [place]MAN) W/O CONTRAST LOCATION: [facility] DATE: 12/08/2024 INDICATION: headache, ataxia, vertigo COMPARISON: CT angiogram dated 01/27/2024. Brain MRI dated 01/27/2024. Brain MRI and head and neck MR angiograms dated 09/27/2023. CONTRAST: 10 mL Gadavist intravenous TECHNIQUE: 1) Routine multiplanar multisequence head MRI without and with intravenous contrast. 2) 3D tmkf-vs-dvgdtd head MRA without intravenous contrast. 3) Neck [...] Multiple additional mild to moderate arterial stenoses likelyrepresent atherosclerosis. No aneurysm or high flow vascular [...] NECK (CAROTIDS) W/O and W CONTRAST,MRA BRAIN (MILLE LACS OF [place]MAN) W/O CONTRAST LOCATION: [facility] DATE: 12/08/2024 INDICATION: headache, ataxia, vertigo COMPARISON: CT angiogram dated 01/27/2024. Brain MRI dated 01/27/2024.Brain MRI and head and neck MR angiograms dated 09/27/2023. CONTRAST: 10 mL Gadavist intravenous TECHNIQUE: 1) Routine multiplanar multisequence head MRI without and with intravenous contrast. 2) 3D kzti-ng-vunebq head MRA without intravenous contrast. 3) Neck MRA without and with IV contrast. Stenosis measurements madeaccording to NASCET criteria unless otherwise specified. FINDINGS: HEAD MRI: INTRACRANIAL CONTENTS: No acute or subacute infarct. Small chronicinfarctions in the right basal ganglia and left moore radiata. No mass,acute hemorrhage, or extra-axial fluid collections. Patchy nonspecificT2/FLAIR hyperintensities within the [...] ICAs is unchanged and mayrepresent fibromuscular dysplasia. Authorizing ProviderResult TypeResult StatusTracy Richa [facility] MRI ORDERABLESFinal Result * (ABNORMAL) Blood gas venous (12/08/2024 6:57 AM CDT)ComponentValueRef Range Test MethodAnalysis TimePerformed AtPathologist SignaturepH Venous7.377.32 - 7.4309 7:04 AM CDTRH LABORATORYpCO2 Qrewfo8271 - 50 mm Hg12/08/2024 7:04 AM CD[facility] LABORATORYpO2 Sciytp27(H)25 - 47 mm Hg12/08/2024 7:04 AM CD[facility] LABORATORYBicarbonate Tzcrub6026 - 28 mmol/L12/08/2024 7:04 AM CD[facility] LABORATORYBase Excess/Deficit Venous0.7-3.0 - 3.0 mmol/L12/08/2024 7:04 AM CDT RH WHIGWRJZSTNGF35 TAWANDA 12/08/2024 7:04 AM CDTRH LABORATORYComment:2L NCOxyhemoglobin Kzguzl59(H)70 - 75 %12/08/2024 7:04 AM CDTRH LABORATORYO2 Sat, Cdreay56.5(H)70.0 - 75.0 %12/08/2024 7:04 AM CDTR[facility] LABORATORYSpecimen (Source)Anatomical Location / Laterality Collection Method / VolumeCollection TimeReceived TimeBlood, venousSTRUCTURE OF LEFT UPPER LIMB / UnknownVenipuncture / Mvjpprx7212/08/2024 6:57 AM CDT12/08/2024 7:02 AM CDT Narrative LABORATORY - 12/08/2024 7:04 AM CDT In healthy individuals, oxyhemoglobin (O2Hb) and oxygen saturation (SO2) are approximately equal. In the presence of dyshemoglobins, oxyhemoglobin can be considerably lower than oxygen saturation. Authorizing ProviderResult TypeResult StatusTracy Richa Suarez MDLAB - BLOOD ORDERABLESFinal ResultPerforming OrganizationAddressCity/State/ZIP CodePhone Number [facility] [address] Lab (1st floor, no room number) [place] [address], [facility] * Hepatic Function Panel (Limited Occurrences) (12/08/2024 6:24 AM CDT)Component ValueRef RangeTest MethodAnalysis TimePerformed AtPathologist SignatureProtein Total7.26.4 - 8.3 g/dL12/08/2024 7:35 AM CDTRH LABORATORYAlbumin4.43.5 - 5.2 g/dL12/08/2024 7:35 AM CDTRH LABORATORYBilirubin Total0.4<=1.2 mg/dL12/08/2024 7:35 AM CDTRH LABORATORYAlkaline Xwhcoyoffbq7033 - 150 U/L12/08/2024 7:35 AM CDTRH RXBUNJAZZNPOB777 - 45 U/L12/08/2024 7:35 AM CDTRH THZXUENPQFHPB399 - 50 U/L12/08/2024 7:35 AM CDTRH LABORATORYBilirubin Direct0.110.00 - 0.30 mg/dL 12/08/2024 7:35 AM CDTR LABORATORYComment:As of 07/24/24, reference ranges and trending lines may vary depending on the testing location.Specimen (Source) Anatomical Location / LateralityCollection Method / VolumeCollection Time Received TimeBloodBLOOD SPECIMEN / UnknownVenipuncture / Xlwzjcg5312/08/2024 6:24 AM CDT12/08/2024 6:29 AM CDT Narrative Authorizing ProviderResult TypeResult StatusTracy Richa WARREN - BLOOD ORDERABLESFinal ResultPerforming OrganizationAddressCity/State/ZIP CodePhone Number [facility] [address] Lab (1st floor, no room number) [address] * Magnesium (Limited Occurrences) (12/08/2024 6:24 AM CDT)ComponentValueRef RangeTest MethodAnalysis TimePerformed AtPathologist SignatureMagnesium1.91.7 - 2.3 mg/dL12/08/2024 7:35 AM CDTRH LABORATORYSpecimen (Source)Anatomical Location / LateralityCollection Method / VolumeCollection TimeReceived Time BloodBLOOD SPECIMEN / UnknownVenipuncture / Uczzwaf7312/08/2024 6:24 AM CDT 12/08/2024 6:29 AM CDT Narrative Authorizing ProviderResult TypeResult StatusTracy Richa WARREN - BLOOD ORDERABLESFinal ResultPerforming OrganizationAddressCity/State/ZIP CodePhone Number [facility] [address] Lab (1st floor, no room number) [address] * (ABNORMAL) TSH with free T4 reflex (12/08/2024 6:24 AM CDT)ComponentValueRef RangeTest MethodAnalysis TimePerformed AtPathologist SignatureTSH6.47(H)0.30 - 4.20 uIU/mL12/08/2024 7:39 AM CDTRH LABORATORYSpecimen (Source)Anatomical Location / LateralityCollection Method / VolumeCollection TimeReceived Time BloodBLOOD SPECIMEN / UnknownVenipuncture / Vpbmvru9712/08/2024 6:24 AM CDT 12/08/2024 6:29 AM CDT Narrative Authorizing ProviderResult TypeResult StatusTracy Richa WARREN - BLOOD ORDERABLESFinal ResultPerforming OrganizationAddressCity/State/ZIP CodePhone Number [facility] [address] Lab (1st floor, no room number) [address] * T4 free (12/08/2024 6:24 AM CDT)ComponentValueRef RangeTest MethodAnalysis TimePerformed AtPathologist SignatureFree T41.190.90 - 1.70 ng/dL12/08/2024 8:37 AM CDTRH LABORATORYSpecimen (Source)Anatomical Location / Laterality Collection Method / VolumeCollection TimeReceived TimeBloodBLOOD SPECIMEN / UnknownVenipuncture / Ledewov2912/08/2024 6:24 AM CDT12/08/2024 6:29 AM CDT Narrative Authorizing ProviderResult TypeResult StatusTracy Richa Suarez MDLAB - BLOOD ORDERABLESFinal ResultPerforming OrganizationAddressCity/State/ZIP CodePhone Number [facility] [address] Lab (1st floor, no room number) [place] [address], [facility] * (ABNORMAL) Lipid panel reflex to direct LDL Fasting (02/20/2024 8:29 AM GROCERY SACKER) ComponentValueRef RangeTest MethodAnalysis TimePerformed AtPathologist FkunqmucfQpkdgsrnvrx917(H)<200 mg/dL02/20/2024 4:11 PM CSTUU LABORATORY Okcbxhnbtgdkb249(H)<150 mg/dL02/20/2024 4:11 PM CSTUU LABORATORYDirect Measure HDL47(L)>=50 mg/dL02/20/2024 4:11 PM CSTUU LABORATORYLDL Cholesterol Nrgjlvwyqp994(H)<100 mg/dL02/20/2024 4:11 PM CSTUU LABORATORYNon HDL Kdadknrjefp264(H)<130 mg/dL02/20/2024 4:11 PM CSTUU LABORATORYPatient Fasting > 8hrs?Yes02/20/2024 4:11 PM CSTUU LABORATORYSpecimen (Source)Anatomical Location / LateralityCollection Method / VolumeCollection TimeReceived Time BloodBLOOD SPECIMEN / UnknownVenipuncture / Pgqxnht1202/20/2024 8:29 AM GROCERY SACKER 02/20/2024 8:29 AM GROCERY SACKER Narrative [facility] LAB[facility]ATORY - 02/20/2024 4:11 PM GROCERY SACKER Cholesterol Desirable: < 200 mg/dL Borderline High: [...] Borderline High: 130 - 159 mg/dL High: ??160 - 189 mg/dL Very High: >= 190 mg/dL Non HDL Cholesterol Desirable: < 130 mg/dL Above Desirable: 130 - 159 mg/dL Borderline High: 160 - 189 mg/dL High: 190 - 219 mg/dL Very High: >= 220 mg/dL Authorizing ProviderResult TypeResult StatusLaxradhamack Adarsh Elio MDLAB - BLOOD ORDERABLESFinal ResultPerforming OrganizationAddressCity/State/ZIP Code Phone Number [facility] [address] [facility] [address] [facility], [address] [place] [address] from Last 3 Months or Most Recently Relevant to Health Maintenance Insurance Advance Directives For more information, please contact: [phone] * Full Code (Latest Code Status on File) Date ActivatedDate OiddrqhuyxlIjdtlyrm75/16/2024 8:00 PM01/28/2024 2:50 PMAll basic and advanced life-sustaining interventions are performed as appropriate QuestionAnswerCommentsCode status determined by:* Discussion with patient/ legal decision maker * Full Code Date ActivatedDate InactivatedComments09/03/2023 5:16 PM09/05/2023 3:36 PMAll basic and advanced life-sustaining interventions are performed as appropriate QuestionAnswerCommentsCode status determined by:* Discussion with patient/ legal decision maker * Full Code Date ActivatedDate InactivatedComments07/06/2023 5:36 PM07/19/2023 1:50 PMAll basic and advanced life-sustaining interventions are performed as appropriateQuestion AnswerCommentsCode status determined by:* Discussion with patient/ legal decision maker Care Teams Team MemberRelationshipSpecialtyStart DateEnd Date Kyra Perera [address] [place] [address] PCP - GeneralPhysician Assistant03/31/22 Angel Hollins MD [address] [facility] [place] [address] Neurology07/20/23 Petra Dorado PA [address] [place], [place] [address] Physician AssistantPhysical Medicine and Rehabilitation07/20/23 Angel Hollins MD [address] [facility] [place] [address] Assigned Neuroscience Provider08/03/23 Yves Ballard MD [address] [facility] [address] [place] [id number] Assigned Heart and Vascular Provider12/04/23
--- OUTSIDE RECORDS SUMMARY | 2025-02-21 16:51 | XMS_ITS | Clinical Summary ---
Author Organization [facility] Address [address] [place] [address] Care Team Providers Care Counseling Specialist Name Role Phone Bettye Davis MD Primary [...] for each transition of care or referral. [facility] Allergies Active AllergyReactionsCriticalityNoted WdunSmpxbialNhadtcciqimi76/18/2011 Caused myalgias. YbaujdbouGqwrkpz84/01/8370VgaemjpszzeWmvgtyzjxxc56/01/2012Hydrochlorothiazide 09/26/2007 ? asthma Hydrocodone-AcetaminophenNausea And Kpkslikv15/19/6530Ichfdibzy87/14/2011 Pt reports depression CmdzptqojrSyem92/02/0562Nkqvbrgm97/12/5632Rxcmzxmohmz50/12/2007Rosuvastatin 10/28/2010 Caused myalgias. Shellfish Protein-Containing Drug LkltnrqgDoggxocdolNnkz22/01/2011 Had severe pain and swelling after lobster Sulfa QkspxwjlyseArxfwSbrr82/12/2007 Medications MedicationSigDispense QuantityRefillsLast FilledStart DateEnd DateStatus ALPRAZolam (XANAX) 0.25 MG tablet TAKE 1/2 TABLET TWICE DAILY DTMQPO6010/05/2016Active aspirin, enteric-coated 81 MG enteric coated tablet Daily01/09/2017Active Cholecalciferol (VITAMIN D3) 2000 units Take 2,000 Units by mouth.02/27/2012ctive Coenzyme Q10 (SM COENZYME Q-10) 100 MG Take 100 mg by mouth.01/09/2017Active fluticasone (FLONASE) 50 MCG/ACT nasal solution INHALE 1-2 SPRAY IN EACH NOSTRIL BY INTRANASAL ROUTE ONCE DAILY.12/30/2013ctive meclizine (ANTIVERT) 25 MG tablet Take 25 mg by mouth.02/09/2016Active nitroglycerin (NITROSTAT) 0.[address] 0.4 mg under tongue.04/12/2017Active pravastatin (PRAVACHOL) 20 MG tablet Take 10 mg by mouth.04/12/2017Active Social History Tobacco UseTypesPacks/DayYears UsedDateSmoking Tobacco: NeverSmokeless Tobacco: NeverCommentsUnknownSex and Gender InformationValueDate RecordedSex Assigned at BirthNot on fileLegal WmlShueof09/10/2012 6:33 AM CDTGender Identity Not on fileSexual OrientationNot on file Plan of Treatment Health MaintenanceDue DateLast DoneCommentsHep C Screening (Preventive Services) 1950Medicare Annual Wellness Visit1950 6254Ezypvkkapwr48/10/1996 Pneumococcal Vaccine 50+ Yrs (1 of 1 - PCV)2000Zoster/Shingles Vaccine (1 of 2)2000Colon Cancer Screening Plan Due04/21/178207/10/20128908Unmw41/10/2016 DTaP/Tdap/Td Vaccine (2 - Tdap)Mammogram12/08/2022 12/08/2021, 01/05/2012COVID-19 Vaccine (2 - 2024- season)503/ Influenza Vaccine (#1)2024RSV Vaccine (1 - 1-dose 75+ series)2025 HepA VaccineAged OutNo longer eligible based on patient's age to complete this topicHepB VaccineAged OutNo longer eligible based on patient's age to complete this topicHib VaccineAged OutNo longer eligible based on patient's age to complete this topicIPV (Polio) VaccineAged OutNo longer eligible based on patient's age to complete this topicMCV4 VaccineAged OutNo longer eligible based on patient's age to complete this topicMeningococcal B VaccineAged OutNo longer eligible based on patient's age to complete this topic Insurance Care Teams Team MemberRelationshipSpecialtyStart DateEnd Date Bettye Davis MD [address] [place], [place] [address] [facility]06/13/10
--- OUTSIDE RECORDS SUMMARY | 2025-02-21 16:51 | XMS_ITS | Clinical Summary ---
Author Organization [facility] Address [address] [place] [address] Care Team Providers Care Patient Relations Coordinator Name Role Phone Kyra Perera Primary Care Provider Genaro Leoanrd MD Unavailable [phone] Janay Nunez MD Unavailable Carolyn Pisano Unavailable [phone] Keo Escobar MD Unavailable Ronaldo Pavon MD Unavailable [phone] Allergies Active AllergyReactionsCriticalityNoted DateCommentsAmlodipinePalpitations 03/03/20205724PomecftlurfrMgbvujn58/18/2011 Caused myalgias. Caused myalgias. Caused myalgias. Other reaction(s): Myalgia Caused myalgias. Caused myalgias. Caused myalgias. Caused myalgias. ChlorthalidoneShortness Of Enhifi3703/03/2020ClonidineShortness Of Breath 03/04/20204233MwqezowizLlgroalGkb15/01/2174KcecwjdyySjoyqccl86/11/2021 Nose bleeding, tried twice for 3 days and happened both times NitroimidazolesOther - Describe In Comment Field03/20/2013 got sick from it KjalscvngnLlshnspXqer42/29/9343NaltvyhpzjxKirhdfwvtxp60/01/2012 Other reaction(s): Tachycardia HydrochlorothiazideOther - Describe In Comment Field09/26/2007 ? asthma ? asthma ? asthma FpqdupuzfnGrrqnlhtdpyl14/26/8867PmwusohwcIpafuphKfbz05/23/2012Lactose Intolerance-Can't Take02/18/2009 Flu-like symptoms Other reaction(s): Intolerance-Can't Take Flu-like symptoms LatexOther - Describe In Comment Field06/15/2016 Patient is unsure about this allergy LisinoprilChest Pain11/30/2007 Other reaction(s): Chest Pain LorazepamOther - Describe In Comment Field03/26/2010 Pt reports depression Pt reports depression Pt reports depression LosartanShortness Of Breath,NxmpitcHtmv58/21/2011 Noted dyspnea Noted dyspnea EgouwqsfaaZdfrMgc01/02/2012MetoprololShortness Of Breath,BcbcrrkGgym48/21/2011 Possible dyspnea. Possible dyspnea. Possible dyspnea. Possible dyspnea. LfoagbncCzqzummewotWwrh49/12/8649UhguwwtxzaWjccgotrq45/06/2023 vertigo RndbfpdslteTeukwkswafTmv70/12/2007 Other reaction(s): Angioedema, Angioedema SmeyysrxreOilhahtEcmd50/29/6253ActytnxzdlmQgggfloUgcf53/29/2024Propranolol Scmwuwml70/24/6826WhreghpbjunxWeurfhb04/18/2011 Caused myalgias. Caused myalgias. Caused myalgias. Other reaction(s): Myalgia Caused myalgias. Caused myalgias. Caused myalgias. Caused myalgias. Shellfish Containing KyqpcqvsOxzjnhtlytYxfe92/01/2011 Had severe pain and swelling after lobster Other reaction(s): Angioedema Had severe pain and swelling after lobster Shellfish RzvkhecGxjguospbtXpcn92/01/2011 Lobster: ??Angioedema and severe stomach pain; has to go to ER when she ate lobster Had severe pain and swelling after lobster Lobster: ??Angioedema and severe stomach pain; has to go to ER when she ate lobster Sulfa (Sulfonamide Antibiotics)UrpwdMilt13/12/8498UxndrdkpbRjffdxxTrcw27/20/2012 Hydrocodone-AcetaminophenNausea And Xqgbuhmk17/19/2012EzetimibeOther - Describe In Comment Field05/24/2024 Pins and needles feeling all over her body, swollen throat, muscle pain Medications MedicationSigDispense QuantityRefillsLast FilledStart DateEnd DateStatus aspirin (ECOTRIN) 81 mg enteric coated tablet 81 mg once daily with a meal. Xqgux725Active meclizine (ANTIVERT) 25 mg tablet Indications:VertigoTake 1 tablet by mouth 3 times daily if needed. 30 tablet Active ondansetron (ZOFRAN ODT) 4 mg disintegrating tablet Indications:NauseaDISSOLVE 1 TABLET ON TONGUE EVERY 6 HOURS NEEDED FOR VOMITING 30 Tablet ctive cholecalciferol (Vitamin D-3) 2,000 unit capsule Indications:Vitamin D deficiencyTake 2 Capsules (4,000 units) by mouth once daily.ctive fluticasone (50 mcg per actuation) nasal solution (FLONASE) Indications:Acute non-recurrent maxillary sinusitisINHALE 1-2 SPRAYS IN EACH NOSTRIL BY INTRANASAL ROUTE ONCE DAILY. 48 g ctive durable medical equipment (DME) Indications:LymphedemaEdema glove for daily use 2 Each 10/09/2023ctive nitroglycerin (NITROSTAT) 0.4 mg sublingual tablet Indications:Chest pain in adultPlace 1 Tablet (0.4 mg) under the tongue every 5 minutes if needed for Chest Pain. Patient tolerated in the past. 25 Tablet ctive famotidine (Pepcid AC) 10 mg tablet Indications:Mast cell activation syndrome (HC)Take 1 Tablet (10 mg) by mouth once daily if needed for GI Upset.07/03/2024tive diazePAM 2 mg tablet Indications:Muscle spasmTake 1-2 tabs twice daily as needed. 20 Tablet 07/09/2024tive phytosterol/pantethine (CHOLESTOFF COMPLETE ORAL) Take 1 Capsule by mouth two times daily.Active ALPRAZolam 0.25 mg tablet Indications:Anxiety stateTAKE ONE-HALF TABLET BY MOUTH THREE TIMES DAILY NEEDED 60 Tablet 5Active metoprolol tartrate (LOPRESSOR) 25 mg tablet Indications:Palpitations,Hypertension,Hypertension, unspecified typeTake 1 Tablet (25 mg) by mouth two times daily. 180 Tablet 5Active Additional Information Patient taking differently: 12.5 mgOral BID, Reported on 02/19/2025 hydrocortisone (ANUSOL-HC) 2.5 % rectal cream Indications:Hemorrhoids, internalApply topically to affected area(s) three times daily. 28 g 5Active pitavastatin magnesium (Zypitamag) 2 mg tab Take by mouth.5Active hydrocortisone (ANUSOL-HC SUPPOSITORY) 25 mg suppository Indications:Hemorrhoids, internalInsert 1 Suppository (25 mg) rectally two times daily. 24 Suppository 5Active furosemide (LASIX) 20 mg tablet Indications:Resistant hypertension,Cerebrovascular accident (CVA), unspecified mechanism (HC)Take 1 Tablet (20 mg) by mouth once daily in the morning. 5Active coenzyme q10 100 mg cap Indications:Hyperlipidemia, unspecified hyperlipidemia typeTake 1 Capsule (100 mg) by mouth two times daily.Discontinued(*Patient states no longer taking) omeprazole 20 mg tablet Indications:Gastroesophageal reflux disease, unspecified whether esophagitis presentTake 1 Tablet (20 mg) by mouth once daily before a meal. 30 Tablet Discontinued(*Patient states no longer taking) dilTIAZem SR (CARDIZEM SR) 60 mg extended release 12 hr capsule Indications:HTN (hypertension)Take 60 mg once daily. 30 Capsule Discontinued(*Allergic/Adverse Rxn/Side Effects) indapamide (LOZOL) 1.25 mg tablet Indications:HypertensionTake 1 Tablet (1.25 mg) by mouth once daily. 90 Tablet Discontinued(*Medication adjustment) indapamide (LOZOL) 2.5 mg tablet Indications:HypertensionTake 0.5 Tablets (1.25 mg) by mouth once daily. 45 Tablet Discontinued(*Allergic/Adverse Rxn/Side Effects) isosorbide mononitrate (IMDUR) 30 mg extended release tablet 24 Hour Indications:Resistant hypertension,Cerebrovascular accident (CVA), unspecified mechanism (HC)Take 0.5 Tablets (15 mg) by mouth once daily. 30 Tablet 512/12/2024Discontinued(*Patient states no longer taking) Active Problems ProblemNoted DateDiagnosed DateParoxysmal gfxjioeirzk49/04/2025Essential lktmsfjqxlil20/23/2025Hemiparesis affecting dominant side as late effect of cerebrovascular accident (CVA)03/25/2024Exudative age-related macular degeneration, unspecified laterality, unspecified stage07/24/2023ardiomyopathy, unspecified type03/18/2022aroxysmal SVT (supraventricular tachycardia) 04/07/2021LVH (left ventricular hypertrophy)01/26/2021Mast cell activation kvpwxori42/09/2021t risk for xhuidgtitaixpg24/06/2013 Overview (02/15/2013): + TPO: currently euthyroid The [...] to Patient. C) www.thyroid.org Screen for colon xezkib1504/20/2012 Overview (04/20/2012): Colonoscopy 04/2012 normal repeat in 10 years Anxiety state, jbseqdpdyxx25/23/2012Lipid pwfdsxag40/18/2011Sphincter of Oddi tapkthipdef79/09/2011Esophageal xbvxcs9503/22/2010 Overview (03/30/2010): EGD 03/2009 Reactive gastropathy Degeneration of cervical intervertebral disc06/25/2008Raynaud's syndrome 01/02/2007Hypertension Resolved Problems ProblemNoted DateDiagnosed DateResolved DateStage 3 chronic kidney disease /26/9940Etbyittqjtdxgz15/31/202001/losed Head Injury / Overview (06/16/2008): Fell down stairs, didn't miss work, MRI normal except for small vessel white matter changes, now with headaches and fatigue (06/15/2008) Plantar fascial coxjlapgqwjy90osacea1 Unspecified essential rewirpspltvi08/28/2024 Encounters DateTypeDepartmentCare SohtLkdgkwzferh51/10/2025 1:00 PM CSTOffice Visit [facility] [address] [place] [address] Kyra Perera PA ER Follow up (Elevated BP and having episodes with her heart, lighheaded) 02/19/2025 10:00 AM CSTProcedure Only [facility] [address] [place] [address] Marizol Walton L Ac Vyzunioovhi75/10/4973Hwlfrt19/05/2025Telephone [facility] [address] [place] [address] Kyra Perera PA Referral ([employer] Technician at [place] with new diagnosis)02/14/2025Telephone [facility] [address] [place] [address] Kyra Perera PA Questions (Referral)02/10/2025Telephone [facility] [address] [place] [address] Kyra Perera PA Appointment Aogurzo7302/10/2025Telephone [facility] [address] [place] [address] Kyra Perera PA General Illness/Other01/29/2025 11:30 AM CSTOffice Visit [facility] [address] [place] [address] Kyra Perera PA Follow Up (Holding a few meds due to side effects - would like to discuss); Referral (allergy)01/29/20255499Iqgzbo10/18/2025Telephone [facility] [address] [facility] [address] [place] [address] Aaron'Kirsty Ernst PA Medication Bqnmocvhtx47/11/2025Telephone [facility] [address] [facility] [address] [place] [address] Aaron'Kirsty Ernst PA Allergies (Allergic reaction to Diltiazem)01/20/2025 2:30 PM CSTOffice Visit [facility] [address] [address] Kirsty Valderrama PA Follow Up (REFERRED BACK TO [facility] BY PCP FOR HTN- PCP CLINIC IS SUPPOSED TO BE ENTERING CORRECT FOLLOW UP ORDER [id number] PT states feeling ok, but earlier today she has felt her BP spike and palpitations. She was also feeling dizzy and lightheaded. She is also feeling a chest sensation now.She is also SOB and has head pressure. )01/20/2025 9:15 AM CSTOffice Visit [facility] [address] [facility] [address] [place] [address] Ronaldo Pavon MD Consult (Abnormal THYROPEROXIDASE ANTIBODY)01/20/2025Telephone [facility] [address] [facility] [address] [place] [address] O'Kirsty Ernst PA Medication Tzdqvudgbz45/10/0684Uarvdl81/06/2025 11:00 AM CSTOffice Visit [facility] [address] [place] [address] Keo Escobar MD Musculoskeletal Problem (Follow up neck pain )01/15/2025 8:40 AM CSTOffice Visit [facility] [address] [place] [address] Kelli Bartlett MD Shortness Of Breath; Gi Btwuuue0301/15/20250410Didggd40/31/2025Orders Only [facility] [address] [place] [address] Janay Nunez MD 1 scan: (1-Ord) [facility] RENAL DOPP, Nurse Triage [facility] [address] [place] [address] Kyra Perera PA Breathing Osseamg2401/10/2025Telephone [facility] [address] [place] [address] Kyra Perera PA Onownklsc22/30/2025Telephone [facility] [place] [address] [place] [phone] Janay Nunez MD Results (Diagnostic Imaging Report for 01/09/25 Bilateral Renal Artery Duplex Ultrasound)12/31/2024 11:00 AM CDTProcedure Only [facility] [address] [place] [address] Marizol Walton L Ac Yabapajxlob87/21/8393Nskpmk40/15/2025 1:00 PM CDTOffice Visit [facility] [address] [place] [address] Kyra Perera PA Follow Up (On everything, dizziness, thyroid, BP etc); Neck Pain/problem (Neck pain on both sides, worse in the morning. Very painful)12/25/2024Travel 12/23/2024 1:30 PM CDTOrders Only [facility] [address] [place] [address] [place], [place] Lab12/23/20245921Pmhodk96/13/2025Telephone [facility] [address] [place] [address] Marizol Walton L Ac Daxrplzxnbd34/09/2025Telephone [facility] [employer] [address] [facility] [address] [place] [address] Genaro Isaac, [facility] Medication Management (Prescription Assistance - Levqio)12/12/2024 9:30 AM CDT Office Visit [facility] [address] [place] [address] Janay Nunez MD 12/10/2024 12:10 PM CDTOffice Visit [facility] [address] [place] [address] Kyra Perera PA ER Follow up (Go over lab results, discuss cyst that is growing, BP, Thyroid) 12/09/2024 11:00 AM CDTOffice Visit [facility] [address] [place] [address] Marizol Walton L Ac Pglbhxwctos42/29/0260Erzdnx83/26/2025 10:30 AM CDTAncillary Procedure [facility] [address] [place] [address] 12/06/20240508Uzuxdu89/16/2025 8:30 AM CDTOffice Visit [facility] [address] [place] [address] Kyra Perera PA Follow Up (Side effects from metoprolol, wants to discuss. / oxygen has been running upper 80s - low 90s); ER Follow up (R sided abd pain. Had CT scan. Recommended US)11/26/2024 8:00 AM CDTAncillary Procedure [facility] [address] [place] [address] 11/26/20245518Kfubxo61/14/2025Orders Only [facility] Scanner 1 scan: (1-Ord) [facility], ABDOMEN PELVIS W/CON, 11/24/2024from Last 3 Months Immunizations ImmunizationAdministration DatesNext DueCOVID-19 vaccine (Amna-J&J) REBA HOPKINS 03/13/2021Td, Preservative Free (age >= 7 Years)11/08/2017Tdap05/30/2007 Family History Medical HistoryRelationNameCommentsHeart DiseaseBrother 1OsteoarthritisBrother 1 back and legOtherBrother 1pulmonary hypertensionCancer-prostateBrother 2Other Brother 3etoh but now dry, htnGood HealthBrother 4Heart DiseaseBrother 5Heart DiseaseBrother 6HyperlipidemiaBrother 0SopzgBnpynqy90 [place], liver etoh Cancer-breastMaternal IjgfLbagvIvunhfg70, heart and dmCancer-breastPaternal Aunt Cancer-breastPaternal GrandmotherLung cancerSister 1Good HealthSister 2possible brain aneurysm, htnCancer-ovarianNo Family HistoryRelationNameStatusComments Brother 1AliveBrother 2DeceasedBrother 3Brother 4Brother 5Brother 6Brother 7 FatherDeceasedMaternal AuntMaternal GrandfatherMotherDeceasedPaternal Aunt Paternal GrandmotherSister 1DeceasedSister 2 Social History Tobacco UseTypesPacks/DayYears UsedDateSmoking Tobacco: NeverSmokeless Tobacco: Never Tobacco Cessation:Counseling Given: Yes Alcohol UseStandard Drinks/WeekCommentsNo0 (1 standard drink = 0.6 oz pure alcohol)does not drinkPHQ-2AnswerDate RecordedPHQ-2 TOTAL CYYKV629Social ConnectionsAnswerDate RecordedDo you often feel lonely or isolated from those around you?lcohol UseAnswerDate RecordedHow often do you have a drink containing alcohol?verage Number of DrinksNot on file 01/20/2025Frequency of Binge DrinkingNot on file01/20/2025Financial Resource StrainAnswerDate RecordedDifficulty of Paying Living Qyycwspp627/04/2025 Difficulty of Paying Living ExpensesNot on file04/16/2024Food InsecurityAnswer Date RecordedDo you worry your food will run out before you are able to buy more?Transportation NeedsAnswerDate RecordedDoes lack of transportation keep you from medical appointments?Does lack of transportation keep you from work, meetings or getting things that you need?1 04/16/2024Housing StabilityAnswerDate RecordedWhat is your housing situation today?Interpersonal SafetyAnswerDate RecordedAre you being hit, kicked, pushed or yelled at (see row info)?No07/03/2024Interpersonal Safety Abuse 12 - 18Not on file07/03/2024Interpersonal Safety Ambulatory Vulnerability Not on file07/03/2024UtilitiesAnswerDate RecordedDo you have trouble paying for utilities (for example, heat, electricity, water, phone)? CommentsNoSex and Gender InformationValueDate RecordedSex Assigned at BirthNot on fileLegal PdrHvbtjy26/14/2013 5:26 AM CSTGender IdentityNot on fileSexual OrientationNot on file Last Filed Vital Signs Vital SignReadingTime TakenCommentsBlood Rxzaanpz662/9102/19/2025 1:05 PM FOREMAN/PROJECT MANAGER Rqcsz705602/19/2025 1:05 PM WXCCcvxhicauyj49.5 ??C (97.7 ??F)01/16/2025 11:02 AM CSTRespiratory Xddo208707/03/2024 3:45 PM CDTOxygen Aabwdthtxw37%01/29/2025 11:40 AM CSTInhaled Oxygen Concentration--Tnoqrg53.5 kg (135 lb 9.6 oz)02/19/2025 1:05 PM QQKEntymk385.9 cm (5' 1)01/20/2025 2:39 PM CSTBody Mass Index25.6201/20/2025 2:39 PM FOREMAN/PROJECT MANAGER Plan of Treatment DateTypeDepartmentCare Team (Latest Contact Info)Wwkrxdnswzk80/16/2025 11:30 AM CSTProcedure Only [facility] [address] [facility] [place] [address] Marizol Walton L [address] [place] [address] 03/03/2025 2:00 PM CSTOffice Visit [facility] [address] [facility] [place] [address] Kyra Perera PA [address] [place] [address] 03/19/2025 8:15 AM CSTOrders Only [facility] [address] [place] 03/20/2025 11:00 AM CSTProcedure Only [facility] [address] [place] [address] Marizol Walton L Ac [address] [place] [address] 03/31/2025 3:30 PM CSTTelemedicine [facility] [place] [address] [facility] [place] [address] Janay Nunez MD [address] [facility] [address] [place] [address] 04/02/2025 10:40 AM CSTOffice Visit [facility] [address] [place] [address] Keo Escobar MD [address] [place] [address] 04/24/2025 11:00 AM CSTProcedure Only [facility] [address] [place] [address] Marizol Walton L Ac [address] [place] [address] Health MaintenanceDue DateLast DoneCommentsPneumococcal series for age 50+ (1 of 2 - PCV)1969RSV vaccine for adults or (1 - Risk 50-74 years 1- dose series)2000Zoster (shingles) series for age 50+ (1 of 2)2000 DEXA/DXA scan for age 65+06/21/2015COVID-19 vaccine series (2024- season) 501/06/2021, 05/23/2020Influenza Vaccine (#1)2024Depression screening for age 12+/01/2024, 09/08/2023, 01/21/2022, Additional history existsMedicare Wellness for age 65+, 01/21/2022, 01/19/2021, Additional history existsMammogram for age 45-75011/26/2025 11/26/2024, 10/09/2023, 12/08/2021, Additional history existsBMI (ht and wt on same day) for age 18+, 12/12/2024, 11/15/2024, Additional history existsTetanus , 05/30/2007Lipids for age 45-750, 06/24/2024, 05/16/2024, Additional history exists Colonoscopy through age 7507//, 10/10/2022, 10/10/2022, Additional history existsHepatitis C screening for age 18-15Nqduvqonp72/29/2016 Hepatitis B series for 19+Aged OutNo longer eligible based on patient's age to complete this topic Procedures Procedure NamePriorityDate/TimeAssociated DiagnosisCommentsACUPUNCTURE PLAN OF JAHLYkbtnbr29/10/2025 10:04 AM FOREMAN/PROJECT MANAGER Chronic neck pain Chronic shoulder pain, unspecified laterality SCAN CORRESP-EKG DOOYSLE9601/23/2025 7:11 AM FOREMAN/PROJECT MANAGER EKG 12 MTMPYqjyi15/10/2025 3:41 PM FOREMAN/PROJECT MANAGER HTN (hypertension) CORTISOL QUSJNEtplxmd48/10/2025 10:10 AM FOREMAN/PROJECT MANAGER Endocrine hypertension RENIN ACTIVITY QESOWNfiyrsy98/10/2025 10:10 AM FOREMAN/PROJECT MANAGER Endocrine hypertension DHEA-SULFATE (DHEA-S)Vdplxxj1201/20/2025 10:10 AM FOREMAN/PROJECT MANAGER Endocrine hypertension METANEPHRINES FRACTIONATED PLASMA KXONFaecuwx00/10/2025 10:10 AM FOREMAN/PROJECT MANAGER Endocrine hypertension ADRENOCORTICOTROPIC HORMONE (ACTH) OHNJDQTsyvzun97/10/2025 10:10 AM FOREMAN/PROJECT MANAGER Endocrine hypertension ALDOSTERONE LC/MS YMBEAJxflpvw60/10/2025 10:10 AM FOREMAN/PROJECT MANAGER Endocrine hypertension US RENAL WITH DUPLEX OLSWAVEWSgqambb27/29/2025 12:00 AM CDT Hypertension ACUPUNCTURE PLAN OF IIKTRwjsvpx37/21/2025 11:02 AM CDT Chronic neck pain Chronic shoulder pain, unspecified laterality T4,GRSGPnojkpc76/13/2025 1:23 PM CDT Elevated TSH Subacute thyroiditis T3,AWYWGbzedbw92/13/2025 1:23 PM CDT Elevated TSH Subacute thyroiditis NETHpfdaur16/13/2025 1:23 PM CDT Elevated TSH Subacute thyroiditis THYROPEROXIDASE HXBQZPXOUezmfeo39/30/2025 1:02 PM CDT Elevated TSH US PELVIS COMPLETE TA AND XGHgpstsd44/26/2025 11:51 AM CDT Cyst of left ovary LIPID PANEL W REFLEX MEASURED MQRUimnggd93/16/2025 9:21 AM CDT Cerebrovascular accident (CVA), unspecified mechanism (HC) Hyperlipidemia, unspecified hyperlipidemia type XR MAMMO ALEENA BILAT XAQWQRUwxbkeu33/16/2025 8:16 AM CDT Visit for screening mammogram SCAN-CT HYFSIMKSDNFHOH62/14/2025 12:00 AM CDTCOLONOSCOPY SCREENINGRoutine 10/10/2022 12:00 AM CDT Screen for colon cancer ANTI UHKWvdpbdy26/29/2016 10:00 AM FOREMAN/PROJECT MANAGER Need for hepatitis C screening test from Last 3 Months or Most Recently Relevant to Health Maintenance Results * SCAN CORRESP-EKG RESULTS (01/23/2025 7:11 AM FOREMAN/PROJECT MANAGER) Narrative 01/23/2025 7:11 AM FOREMAN/PROJECT MANAGER Ordered by an unspecified provider. Authorizing ProviderResult TypeResult StatusOther Clinical StaffOTHERFinal Result * EKG 12 LEAD (01/20/2025 3:41 PM FOREMAN/PROJECT MANAGER)ComponentValueRef RangeTest MethodAnalysis TimePerformed AtPathologist SignatureInterpretationNormal sinus rhythm Normal ECG When compared with ECG of 13-Oct-2023 11:53, No significant change was found Ventricular Matg29QVKTctrcn Eqww19EFWN-E Hxgqafxc831bqIDH Wiysinnt81gxAV079ctQPh 405msP Havf02gxplildU Dgar29pkvigueP Mpmc83gzkqrehSizozqmf (Source)Anatomical Location / LateralityCollection Method / VolumeCollection TimeReceived Time 01/20/2025 3:41 PM CST01/20/2025 5:22 PM FOREMAN/PROJECT MANAGER Narrative Authorizing ProviderResult TypeResult StatusLanegrito Valderrama PAEKG ORD Final Result * CORTISOL TOTAL (01/20/2025 10:10 AM FOREMAN/PROJECT MANAGER)ComponentValueRef RangeTest Method Analysis TimePerformed AtPathologist SignatureCORTISOL, TOTAL8.2mcg/dL 01/21/2025 6:37 AM CSTQUEST DIAGNOSTICSComment: The Cortisol result may be decreased on average 10-20% relative to results previously obtained with this method due to a recent quality improvement made in October 2024 by the reagent textile machine mechanic. Reference Range: For 8 a.m.(7-9 a.m.) Specimen: 4.0-22.0 Reference Range: For 4 p.m.(3-5 p.m.) Specimen: 3.0-17.0 ??* Please interpret above results accordingly * Specimen (Source)Anatomical Location / LateralityCollection Method / Volume Collection TimeReceived TimeBloodBLOOD SPECIMEN / UnknownQuest Collect / Unknown 01/20/2025 10:10 AM CST01/20/2025 10:15 AM FOREMAN/PROJECT MANAGER Narrative Authorizing ProviderResult TypeResult StatusAkuffo Quarde MDCHEMISTRYFinal ResultPerforming OrganizationAddressCity/State/ZIP CodePhone Number [facility] [address] [place] [address], * METANEPHRINES FRACTIONATED PLASMA FREE (01/20/2025 10:10 AM FOREMAN/PROJECT MANAGER)ComponentValue Ref RangeTest MethodAnalysis TimePerformed AtPathologist Signature NORMETANEPHRINE, EUHR544< OR = 148 pg/mL01/26/2025 2:41 PM CSTQUEST DIAGNOSTICSComment: This test was developed and its analytical performance characteristics have been determined by [facility]. It has not been cleared or approved by the FDA. This assay has been validated pursuant to the CLIA regulations and is used for clinical purposes. METANEPHRINE, FREE41< OR = 57 pg/mL01/26/2025 2:41 PM CSTSmart Pipe DIAGNO[facility]ICS Comment: This test was developed and its analytical performance characteristics have been determined by [facility]. It has not been cleared or approved by the FDA. This assay has been validated pursuant to the CLIA regulations and is used for clinical purposes. TOTAL, FREE ([place] + [place])151< OR = 205 pg/mL01/26/2025 2:41 PM CSTQUEST DIAGNOSTICS Comment: Elevations > 4-fold upper reference [...] 2008. For additional information, please refer to http://education.[employer] Cloud/faq/MetFractFree (This link is being provided for informational/educational purposes only.) This test was developed and its analytical performance characteristics have been determined by [facility]. It has not been cleared or approved by the FDA. This assay has been validated pursuant to the CLIA regulations and is used for clinical purposes. Specimen (Source)Anatomical Location / LateralityCollection Method / Volume Collection TimeReceived TimeBloodBLOOD SPECIMEN / UnknownQuest Collect / Unknown 01/20/2025 10:10 AM CST01/20/2025 10:15 AM FOREMAN/PROJECT MANAGER Narrative Authorizing ProviderResult TypeResult StatusAkuffo Quarde [facility] CITYEND OUTSHuntington Hospitalal ResultPerforming OrganizationAddKirkbride Center/State/ZIP CodePhone Number [facility] [address] [phone], * ADRENOCORTICOTROPIC HORMONE (ACTH) PLASMA (01/20/2025 10:10 AM FOREMAN/PROJECT MANAGER)Component ValueRef RangeTest MethodAnalysis TimePerformed AtPathologist SignatureACTH, [id number] - 50 pg/mL01/23/2025 4:39 PM CSTQUEST DIAGNOSTICSComment: Reference range applies only to the specimens collected between 7am-10am. Specimen (Source)Anatomical Location / LateralityCollection Method / Volume Collection TimeReceived TimeBloodBLOOD SPECIMEN / UnknownQuest Collect / Unknown 01/20/2025 10:10 AM CST01/20/2025 10:15 AM FOREMAN/PROJECT MANAGER Narrative Authorizing ProviderResult TypeResult StatusAkuffo Quarde [facility] OUTSAt[facility] Health Southpark ResultPerforming OrganizationAddKirkbride Center/[facility]/ZIP CodePhone Number [facility] [address] [phone], * ALDOSTERONE LC/MS BLOOD (01/20/2025 10:10 AM FOREMAN/PROJECT MANAGER)ComponentValueRef RangeTest MethodAnalysis TimePerformed AtPathologist SignatureALDOSTERONE, LC/MS/MS7 ng/dL01/24/2025 10:21 AM CSTQUEST DIAGNOSTICSComment: Adult Reference Ranges for Aldosterone: Upright 8:00-10:00 am < or = 28 ng/dL Upright 4:00-6:00 pm < or = 21 ng/dL ?? Supine ??8:00-10:00 am ?3-16 ng/dL This test was developed and its analytical performance characteristics have been determined by [facility]. It has not been cleared or approved by the FDA. This assay has been validated pursuant to the CLIA regulations and is used for clinical purposes. Specimen (Source)Anatomical Location / LateralityCollection Method / Volume Collection TimeReceived TimeBloodBLOOD SPECIMEN / UnknownQuest Collect / Unknown 01/20/2025 10:10 AM CST01/20/2025 10:15 AM FOREMAN/PROJECT MANAGER Narrative Authorizing ProviderResult TypeResult StatusAkuffo Quarde MDSEND OUTSFinal ResultPerforming OrganizationAddGeisinger Community Medical Centerty/State/ZIP CodePhone Number [facility] [address] [address], [place] [phone] * RENIN ACTIVITY BLOOD (01/20/2025 10:10 AM FOREMAN/PROJECT MANAGER)ComponentValueRef RangeTest MethodAnalysis TimePerformed AtPathologist SignaturePLASMA RENIN ACTIVITY, LC/MS/MS0.690.25 - 5.82 ng/mL/h103/27/2024 1:25 PM CSTQUEST DIAGNOSTICSComment: This test was developed and its analytical performance characteristics have been determined by [facility]. It has not been cleared or approved by the FDA. This assay has been validated pursuant to the CLIA regulations and is used for clinical purposes. Specimen (Source)Anatomical Location / LateralityCollection Method / Volume Collection TimeReceived TimeBloodBLOOD SPECIMEN / UnknownQuest Collect / Unknown 01/20/2025 10:10 AM CST01/20/2025 10:15 AM FOREMAN/PROJECT MANAGER Narrative Authorizing ProviderResult TypeResult StatusAkuffo Quarde MDSEND OUTSFinal ResultPerforming OrganizationAddKirkbride Center/State/ZIP CodePhone Number [facility] [address] [address], [place] [phone] * DHEA-SULFATE (DHEA-S) (01/20/2025 10:10 AM FOREMAN/PROJECT MANAGER)ComponentValueRef RangeTest MethodAnalysis TimePerformed AtPathologist SignatureDHEA [id number] - 157 mcg/dL01/21/2025 5:51 AM CSTQUEST DIAGNOSTICSSpecimen (Source)Anatomical Location / LateralityCollection Method / VolumeCollection TimeReceived Time BloodBLOOD SPECIMEN / UnknownQuest Collect / Edmygpd5901/20/2025 10:10 AM FOREMAN/PROJECT MANAGER 01/20/2025 10:15 AM FOREMAN/PROJECT MANAGER Narrative Authorizing ProviderResult TypeResult StatusAkuffo Quarde MDSEND OUTSFinal ResultPerforming OrganizationAddressCity/State/ZIP CodePhone Number [facility] [address] [place] [address], * US RENAL W DUPLEX COMPLETE (01/08/2025 12:00 AM CDT)Anatomical Region LateralityModalityAbdomen, KIDNEYS, KIDNEY L, KIDNEY RUltrasound Narrative Authorizing ProviderResult TypeResult StatusJanay Nunez MDUSFinal Result * TSH (12/23/2024 1:23 PM CDT)ComponentValueRef RangeTest MethodAnalysis Time Performed AtPathologist SignatureTSH1.610.40 - 4.50 mIU/L1 4:41 AM CDTQUEST DIAGNOSTICSSpecimen (Source)Anatomical Location / Laterality Collection Method / VolumeCollection TimeReceived TimeBloodBLOOD SPECIMEN / UnknownQuest Collect / Ksyxrmm2212/23/2024 1:23 PM CDT1 1:23 PM CDT Narrative Authorizing ProviderResult TypeResult StatusBridget Omaira Perera PACHEMISTRY Final ResultPerforming OrganizationAddressCity/State/ZIP CodePhone Number [facility] [address] [place] [address], * T3,FREE (12/23/2024 1:23 PM CDT)ComponentValueRef RangeTest MethodAnalysis TimePerformed AtPathologist SignatureT3, FREE2.82.3 - 4.2 pg/mL12/24/2024 4:41 AM CDTQUEST DIAGNOSTICSSpecimen (Source)Anatomical Location / Laterality Collection Method / VolumeCollection TimeReceived TimeBloodBLOOD SPECIMEN / UnknownQuest Collect / Rltumbn2412/23/2024 1:23 PM CDT1 1:23 PM CDT Narrative Authorizing ProviderResult TypeResult StatusBridget Omaira Gweneran PACHEMISTRY Final ResultPerforming OrganizationAddressCity/State/ZIP CodePhone Number [facility] [address] [place] [address], * T4,FREE (12/23/2024 1:23 PM CDT)ComponentValueRef RangeTest MethodAnalysis TimePerformed AtPathologist SignatureT4, FREE1.20.8 - 1.8 ng/dL12/24/2024 4:41 AM CDTQUEST DIAGNOSTICSSpecimen (Source)Anatomical Location / Laterality Collection Method / VolumeCollection TimeReceived TimeBloodBLOOD SPECIMEN / UnknownQuest Collect / Mjrsogr0112/23/2024 1:23 PM CDT1 1:23 PM CDT Narrative Authorizing ProviderResult TypeResult StatusKyra Omaira Trever PACHEMISTRY Final ResultPerforming OrganizationAddressCity/State/ZIP CodePhone Number [facility] [address] [place] [address], * (ABNORMAL) THYROPEROXIDASE ANTIBODY (12/10/2024 1:02 PM CDT)ComponentValueRef RangeTest MethodAnalysis TimePerformed AtPathologist SignatureTHYROID PEROXIDASE WFWORLDOMG64(H)<9 IU/mL12/11/2024 4:00 PM CDTQUEST DIAGNOSTICS Specimen (Source)Anatomical Location / LateralityCollection Method / Volume Collection TimeReceived TimeBloodBLOOD SPECIMEN / UnknownQuest Collect / Lnytwbg6612/10/2024 1:02 PM CDT12/10/2024 1:02 PM CDT Narrative [facility] - 12/11/2024 4:00 PM CDT FASTING:UNKNOWN FASTING: UNKNOWN Authorizing ProviderResult TypeResult StatusKyra Omaira Hidalgosofi PASEND OUTS Final ResultPerforming OrganizationAddressCity/State/ZIP CodePhone Number [facility] [address] [place] [phone], [place] [phone] * US PELVIS COMPLETE TA AND TV (12/06/2024 11:51 AM CDT)Anatomical Region LateralityModalityPelvisUltrasoundSpecimen (Source)Anatomical Location / LateralityCollection Method / VolumeCollection TimeReceived Time12/06/2024 2:16 PM CDT Impressions 12/06/2024 2:16 PM [...] by 3.2 cm in transverse dimension. Hyperechoic structurewithin the uterine myometrium measures 6 x 7 [...] a transabdominal and transvaginal approach. Transvaginal imaging performedto better [...] MD @ 12/06/2024 2:16:01 PM (Electronically Signed) Authorizing ProviderResult TypeResult StatusBridget Omaira Perera PAUSFinal Result * (ABNORMAL) LIPID PANEL W REFLEX MEASURED LDL (11/26/2024 9:21 AM CDT)Component ValueRef RangeTest MethodAnalysis TimePerformed AtPathologist Signature CHOLESTEROL, FCEYF852(H)<200 mg/dL11/27/2024 4:19 AM CDTQUEST DIAGNOSTICS NDUBRBXABTNFX193(H)<150 mg/dL11/27/2024 4:19 AM CDTQUEST DIAGNOSTICSComment: If a non-fasting specimen was collected, consider repeat triglyceride testing on a fasting specimen if clinically indicated. Sue et al. J. of Clin. Lipidol. 2015;9:129-169. HDL HUEVUQKDSQH60> OR = 50 mg/dL11/27/2024 4:19 AM CDTQUEST DIAGNOSTICSNON HDL KCIKYADIYOP831(H)<130 mg/dL (calc)11/27/2024 4:19 AM [facility]ail[facility]ruTQUEST [facility]AG[facility] Comment: Non-HDL level > or = [...] mg/dL) is considered a therapeutic option. CHOL/HDLC RATIO5.2(H)<5.0 (calc)11/27/2024 4:19 AM CDTSmart [facility]NO[facility] LDL-ZTGBMOIREVV261(H)mg/dL (calc)11/27/2024 4:19 AM SailthruTSmart Pipe DIAGNOSTICSComment: Reference range: <100 Desirable range <100 mg/dL for primary prevention; <70 mg/dL for patients with CHD or diabetic patients with > or = 2 CHD risk factors. LDL-C is now calculated using the Benji calculation, which is a validated novel method providing better accuracy than the Friedewald equation in the estimation of LDL-C. Andrea SS et al. TEODORO. 2013;310(19): 3977-3028 (http://education.GrandCamp/faq/GNM483) Specimen (Source)Anatomical Location / LateralityCollection Method / Volume Collection TimeReceived TimeBloodBLOOD SPECIMEN / UnknownQuest Collect / Unknown 11/26/2024 9:21 AM CDT11/26/2024 9:21 AM CDT Narrative [facility] - 11/27/2024 4:19 AM CDT FASTING:UNKNOWN FASTING: UNKNOWN Authorizing ProviderResult TypeResult StatusBridget Omaira Perera PACHEMISTRY Final ResultPerforming OrganizationAddressCity/State/ZIP CodePhone Number [facility] [address] [place] [phone], * XR MAMMO ALEENA BILAT SCREEN (11/26/2024 8:16 AM CDT)Anatomical RegionLaterality ModalityBREASTS, Breast Left, Breast RightBilateralMammographySpecimen (Source)Anatomical Location / LateralityCollection Method / VolumeCollection TimeReceived Time Impressions 11/26/2024 3:10 PM CDT There is no radiographic evidence for malignancy. Recommend annual mammograms. MAMMOGRAM ASSESSMENT: ??ACR 1 Negative PATIENTS: You will also receive [...] care provider. XR MAMMO ALEENA BILAT SCREEN [[id number]] CLINICAL HISTORY: ??This is an asymptomatic 74 y.o. patient. INDICATION FOR EXAM: Mammogram Screening. TECHNIQUE: CC and MLO views were obtained. ??This study was evaluated with the assistance of Computer-Aided Detection. Breast Tomosynthesis was used in interpretation. COMPARISON FILM: Yes 10/09/23 Movie Mouth 12/08/21 [facility] Score The Board FINDINGS: ??There are scattered areas of fibroglandular density. There are no dominant masses, suspicious micro calcifications or areas of architectural distortion. Authorizing ProviderResult TypeResult StatusBridgeflavio Perera PAMAMMOFinal Result * SCAN-CT INTERPRETATION (11/24/2024 12:00 AM CDT)Anatomical RegionLaterality ModalityOther Narrative Authorizing ProviderResult TypeResult StatusScannerOTHERFinal Result * COLONOSCOPY SCREENING (10/10/2022 12:00 AM CDT) Narrative Authorizing ProviderResult TypeResult StatusAndrea SANDERS PROCEDURE ORDFinal Result * ANTI HCV [45940.2] (02/09/2016 10:00 AM FOREMAN/PROJECT MANAGER)ComponentValueRef RangeTest Method Analysis TimePerformed AtPathologist SignatureHEPATITIS C ANTIBODYNon-Reactive Non-Fqitecoi39/29/2016 5:42 PM CSTWE[facility] Specimen (Source)Anatomical Location / LateralityCollection Method / Volume Collection TimeReceived TimeBloodBLOOD SPECIMEN / UnknownVenipuncture / Ipyjilw1202/09/2016 10:00 AM CST02/09/2016 10:01 AM FOREMAN/PROJECT MANAGER Narrative [facility] - 02/09/2016 5:42 PM FOREMAN/PROJECT MANAGER Antibodies to HCV not detected; does not exclude the possibility of exposure to HCV. Authorizing ProviderResult TypeResult StatusBridget Omaira STODDARD Final ResultPerforming OrganizationAddressCity/State/ZIP CodePhone Number [facility] [address] [place] [address], [place] from Last 3 Months or Most Recently Relevant to Health Maintenance Insurance MemberSubscriberPlan / Payer (Effective 2009-Present)Name:Kaye Miya Arabella Relation to Subscriber:SelfName:Rodaswil Arabella Payer ID:Not on file Group ID:Not on file Type:Not on file [id number] Address: [address] [place] [address] * Guarantor: Miya Restrepo TypeRelation to PatientDate of BirthPhone Billing [id number][address] [place] [phone] Advance Directives * Full Code (Latest Code Status on File) Date ActivatedDate InactivatedComments07/03/2024 2:11 PM07/03/2024 7:07 PMQuestion AnswerCommentsCode Status Discussion:* Reviewed Preferences * Full Code Date ActivatedDate InactivatedComments05/11/2010 8:46 AM05/12/2010 2:51 AM * Full Code Date ActivatedDate InactivatedComments03/22/2010 2:54 PM03/22/2010 10:16 PM * Full Code Date ActivatedDate InactivatedComments03/22/2010 1:40 PM03/22/2010 2:54 PM * Full Code Date ActivatedDate InactivatedComments03/22/2010 4:20 AM03/22/2010 1:40 PM Care Teams Team MemberRelationshipSpecialtyStart DateEnd Date Kyra Perera PA [address] [facility] [place] [address] PCP - General06/16/08 Genaro Leonard MD [address] [facility] [address] [address] Cardiology - Electrophysiology05/30/22 Janay Nunez MD [address] [facility] [place] [address] Cardiology - Interventional09/21/22 Carolyn Pisano PA [address] [facility] [place] [address] Physician Assistant09/21/22 Keo Escobar MD [address] [facility] [place] [address] Sports Medicine - Family Medicine09/21/22 [place] [address] [place] [address] UkpsystgqflswApefujpzruahs96/10/25
--- NOTE | 2025-02-21 17:18 | XR_ITS ---
Patient: JOSE CHOW Facility:?[facility] Patient ID:?[id number] Site Patient ID:?[id number]. Site :?[id number] Study:?XRay-Chest 2V-02/21/2025 6:04:47 PM Ordering Physician:Naomie Harris Final Report: INDICATION: Chest pain. TECHNIQUE: X-ray chest two views PA and lateral COMPARISON: X-ray chest 06/27/2024 FINDINGS: Lungs and pleura: There is subsegmental bibasilar atelectasis. No lobar airspace consolidation, pleural effusion or pneumothorax. Heart/mediastinum: The heart size is normal. There are calcifications in the thoracic aorta. Osseous structures: There are degenerative changes in the spine. IMPRESSION: Subsegmental bibasilar atelectasis. No lobar consolidation, pleural effusion or pneumothorax. Dictated by Rikki Benito MD @ 02/21/2025 6:20:40 PM Signed by:?Rikki Benito MD @02/21/2025 6:20:40 PM (Electronic Signature)
[2025-02-21 18:03] LABS: Hematocrit* 42.9 % (33.0-51.0); Hemoglobin* 14.9 gm/dL (12.0-16.0); Immature Granulocytes Abs Auto 0.00 K/uL (0.00-0.30); Immature Granulocytes Pct Auto 0.0 %; Lymphocytes Absolute Auto 1.63 K/uL (0.90-2.90); Mean Corpuscular HGB Conc 35 gm/dL (32-36); Mean Corpuscular Hemoglobin 30 pg (26-34); Mean Corpuscular Volume 85 fL (80-100); RDW Coefficient of Variation % 12.7 % (11.5-15.5); Red Blood Count* 5.03 m/uL (4.00-5.20); White Blood Count* 5.40 K/uL (4.50-11.00)
--- NOTE | 2025-02-21 18:05 | ED.CHESTPAIN ---
HPI - Chest Pain General Date Seen: 02/21/25 Chief Complaint: Chest Pain Stated Complaint: Chest pain Time Seen by Provider: 02/21/25 17:11 Source: patient, family, RN notes reviewed and old records reviewed Mode of arrival: ambulatory Limitations: no limitations History of Present Illness HPI narrative: patient is a 74-year-old female who presents here with multiple complaints of chest pain, shortness of breath, hypertension, worsening anxiety. She tells me she also has PVCs or an SVT, she saw her primary care doc physician a couple days ago Holter was ordered. She is allergic to beta-blockers and is trying to cut back on her beta-aston, and says she notices her PVCs more. She is very anxious, is telling me she is here with her significant other. She has not had a fevers chills, she took a nitroglycerin before coming in, when I ask her if she has coronary disease she says she does not think so, but does follow-up with the career center advisor. She has never before had an ablation, she says she can walk, does not become short of breath with the chest pain with walking. She had a full workup at [facility] on 02/10/2025, negative troponins, negative findings, and discharged home. Past history in her chart I see of TIA, /CVA. MD complaint: chest heaviness and chest discomfort Pertinent past history: coronary artery disease Timing of current episode: episodic, constant and daily Prior episodes: Yes Pain location: substernal and left chest Pain radiation: none Severity: moderate Quality: tightness, aching, heaviness, sharp, dull, burning, shooting and fullness Relieving factors: nothing Treatment prior to arrival: none Risk Factors Coronary artery disease risk factors: hypertension Thoracic aortic dissection risk factors: none and longstanding hypertension Related Data On Oral Contraceptives: No Home Medications ?Medication ?Instructions ?Recorded ?Confirmed alprazolam 0.25 mg tablet 0.125 mg PO TID PRN 10/03/21 02/21/25 cholecalciferol (vitamin D3) 50 50 mcg PO DAILY 10/03/21 02/21/25 mcg (2,000 unit) tablet fluticasone propionate 50 1 - 2 spray intranasal DAILY PRN 10/03/21 02/21/25 mcg/actuation nasal spray,suspension nitroglycerin 0.4 mg sublingual 0.4 mg sublingual Q5M PRN 10/03/21 02/21/25 tablet aspirin 81 mg capsule 81 mg PO DAILY 02/15/22 02/21/25 diazepam 5 mg tablet 2.5 - 5 mg PO Q6H PRN anxiety 07/01/23 02/21/25 famotidine 10 mg tablet 10 mg PO DAILY 07/01/23 02/21/25 furosemide 20 mg tablet 20 mg PO Q OTHER DAY PRN 07/01/23 02/21/25 metoprolol succinate 25 mg mg PO 02/21/25 tablet,extended release 24 hr metoprolol tartrate 25 mg tablet 25 mg PO BID 02/21/25 02/21/25 Allergies Allergy/AdvReac Type Severity Reaction Status Date / Time Penicillins Allergy Severe Throat Verified 02/21/25 16:54 Closing amlodipine Allergy Intermediate Palpitation Verified 02/21/25 16:54 s atorvastatin Allergy Intermediate Myalgia Verified 02/21/25 16:54 chlorthalidone Allergy Intermediate Dyspnea Verified 02/21/25 16:54 clonidine Allergy Intermediate Dyspnea Verified 02/21/25 16:54 diltiazem Allergy Intermediate Anxiety Verified 02/21/25 16:54 doxazosin Allergy Intermediate Bleeding Verified 02/21/25 16:54 hydralazine Allergy Intermediate Tachycardia Verified 02/21/25 16:54 hydrochlorothiazide Allergy Intermediate Dyspnea Verified 02/21/25 16:54 labetalol Allergy Intermediate Dyspnea Verified 02/21/25 16:54 lisinopril Allergy Intermediate Chest Pain Verified 02/21/25 16:54 lobster Allergy Intermediate Verified 02/21/25 16:54 lorazepam (From Ativan) Allergy Intermediate Depression Verified 02/21/25 16:54 losartan Allergy Intermediate Dyspnea Verified 02/21/25 16:54 methyldopa Allergy Intermediate Rash Verified 02/21/25 16:54 metoprolol Allergy Intermediate Dyspnea Verified 02/21/25 16:54 metronidazole (From Flagyl) Allergy Intermediate Hives Verified 02/21/25 16:54 milk Allergy Intermediate Verified 02/21/25 16:54 rosuvastatin Allergy Intermediate Myalgia Verified 02/21/25 16:54 verapamil Allergy Intermediate Dyspnea Verified 02/21/25 16:54 morphine Allergy Mild Hives Verified 02/21/25 16:54 Sulfa (Sulfonamide Allergy Mild Hives Verified 02/21/25 16:54 Antibiotics) lactose Allergy Unknown Verified 02/21/25 16:54 latex Allergy Unknown Verified 02/21/25 16:54 hydrocodone AdvReac Intermediate Nausea/Vomi Verified 02/21/25 16:54 ting olmesartan AdvReac Intermediate Verified 02/21/25 16:54 Review of Systems Status of ROS Reports: 10 or more systems reviewed and unremarkable except as noted in History and below [facility] Medical History Hypertension ?I10 - Essential (primary) hypertension (ICD-10) Paroxysmal SVT (supraventricular tachycardia) (04/07/21) ?I47.10 - Supraventricular tachycardia, unspecified (ICD-10) 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) ?D89.40 - Mast cell activation, unspecified (ICD-10) LVH (left ventricular hypertrophy) (01/26/21) ?I51.7 - Cardiomegaly (ICD-10) TBI (traumatic brain injury) ?S06.9XAA - Unspecified intracranial injury with loss of consciousness status unknown, initial encounter (ICD-10) Frequent PVCs ?I49.3 - Ventricular premature depolarization (ICD-10) Anxiety ?F41.9 - Anxiety disorder, unspecified (ICD-10) Statin intolerance ?Z78.9 - Other specified health status (ICD-10) Hypertension with intolerance to multiple antihypertensive drugs ?I10 - Essential (primary) hypertension (ICD-10) Viral infection ?B34.9 - Viral infection, unspecified (ICD-10) Upper back pain ?M54.9 - Dorsalgia, unspecified (ICD-10) Tinnitus ?H93.19 - Tinnitus, unspecified ear (ICD-10) Obstructive sleep apnea treated with continuous positive airway pressure (CPAP) ?G47.33 - Obstructive sleep apnea (adult) (pediatric) (ICD-10) Headache ?R51.9 - Headache, unspecified (ICD-10) Excessive daytime sleepiness ?G47.19 - Other hypersomnia (ICD-10) Encounter for follow-up ?Z09 - Encounter for follow-up examination after completed treatment for conditions other than malignant neoplasm (ICD-10) Disorder of paranasal sinus ?J34.9 - Unspecified disorder of nose and nasal sinuses (ICD-10) Difficulty sleeping ?G47.9 - Sleep disorder, unspecified (ICD-10) Chest pain ?R07.9 - Chest pain, unspecified (ICD-10) Abdominal pain ?R10.9 - Unspecified abdominal pain (ICD-10) Surgical History Hx of removal of ovary H/O section ?Z98.891 - History of uterine scar from previous surgery (ICD-10) H/O resection of rib ?Z98.890 - Other specified postprocedural states (ICD-10) History of tonsillectomy ?Z90.89 - Acquired absence of other organs (ICD-10) Hx of cholecystectomy ?Z90.49 - Acquired absence of other specified parts of digestive tract (ICD-10) History of appendectomy ?Z90.49 - Acquired absence of other specified parts of digestive tract (ICD-10) Family History Brother Prostate cancer Heart disease Sister Lung cancer Social History Narrative: She lives in [place]. Accompanied today by her son David. She does not smoke. She does not drink alcohol. What is your current living situation?: I presently have a place to live Problems where you live: no known problems Problems where you live details: none In the past 12 months, utilities in danger of being shut off: no In past 12 months, lack of transportation kept you from medical appts, meetings, work, or getting things needed for daily living: no In the past 12 mos, have been you worried that your food would run out before you had money to buy more?: never true In the past 12 mos, the food you bought just didn't last and you didn't have money to buy more?: never true Highest level of school completed/degree received: some college, no degree Smoking Status: Never smoker Do you use any of these nicotine containing products: None Second hand tobacco smoke exposure: No How often do you have a drink containing alcohol: never AUDIT-C Alcohol total score: 0 Non-prescribed substance use: denies use Caffeine: No How often does anyone, including family, friends and others, physically hurt you: never How often does anyone, including family, friends and others, insult or talk down to you: never How often does anyone, including family, friends and others, threaten you with harm: never How often does anyone, including family, friends and others, scream or curse at you: never service: No Exam Narrative Exam Narrative: On examination in room 5 she is in no apparent distress she does have significant anxiety, in the room, abnormal vital signs are listed with elevated blood pressure, normal pulse rate, respiratory rate. Saturations. She is nontoxic speaking to me normally her pupils equal round reactive to light there is no scleral icterus redness or TMs are normal oropharynx is normal JVP is flat, carotid upstrokes are equal her cranial through her nerves 3-12 are grossly normal her chest is good air entry bilaterally with no splinting there is no extra sounds, no signs respiratory distress. Heart sounds no clicks murmurs or gallops, are noted. Abdomen is soft and a little bit pot belly there is no guarding no organomegaly moves all extremities independently and well with no edema noted. Const Vital Signs, click to edit/add: Vital Signs - 24 hr 02/21/25 17:34 02/21/25 17:35 02/21/25 17:45 Temperature 97.7 F Pulse Rate 73 70 Pulse Rate [Pulse Oximeter] 86 Respiratory Rate 20 20 20 Blood Pressure Blood Pressure [Right Upper Arm] 207/93 H Pulse Oximetry 95 96 93 Oxygen Delivery Method Room Air 02/21/25 17:51 02/21/25 17:56 02/21/25 18:03 Temperature Pulse Rate 66 Pulse Rate [Pulse Oximeter] Respiratory Rate 21 Blood Pressure 144/84 H 184/90 H Blood Pressure [Right Upper Arm] Pulse Oximetry 94 98 Oxygen Delivery Method Room Air 02/21/25 18:13 02/21/25 18:15 02/21/25 18:30 Temperature Pulse Rate 66 70 68 Pulse Rate [Pulse Oximeter] Respiratory Rate 18 18 Blood Pressure Blood Pressure [Right Upper Arm] Pulse Oximetry 94 93 95 Oxygen Delivery Method 02/21/25 18:32 02/21/25 18:45 02/21/25 19:00 Temperature Pulse Rate 68 74 67 Pulse Rate [Pulse Oximeter] Respiratory Rate 19 11 L Blood Pressure 158/98 H Blood Pressure [Right Upper Arm] Pulse Oximetry 95 92 94 Oxygen Delivery Method 02/21/25 19:02 02/21/25 19:12 Temperature Pulse Rate 74 Pulse Rate [Pulse Oximeter] Respiratory Rate 14 Blood Pressure 159/89 H Blood Pressure [Right Upper Arm] Pulse Oximetry 96 Oxygen Delivery Method Room Air Room Air Documenting provider has reviewed patient's vital signs: yes Course Reevaluation(s) Time of Reevaluation #1: 19:16 Reevaluation #1: Patient's blood pressure went down to 144 and 85, she felt much better she was still having PVCs and we had a long discussion over this. I explained to her that the PVCs are not a bad thing, and it is just the heart re setting itself, and she has this frequently I did review her cardiology note from 01/04/[address] Nunez. She actually did have a procedure for denervation of her kidneys, hoping to help her blood pressure, as she does have these episodic spikes. I do believe these are secondary to actually her anxiety more than anything, she does have a lot of adverse consequences to medications in the beta-blockers sound like are the best of up were situation. I do recommend follow-up with the primary care physician I did give her reassurance here, I do think 1 troponin is all he needed she has been having the symptoms now for days, previous cardiac workup done on 02/10/2025 at [facility] was also negative. She was very comfortable with this plan, Vital Signs Vital signs: Initial Vital Signs Pulse Rate 73 02/21/25 17:34 Respiratory Rate 20 02/21/25 17:34 Pulse Oximetry 95 02/21/25 17:34 Vital Signs Pulse Rate 73 02/21/25 17:34 Respiratory Rate 20 02/21/25 17:34 Pulse Oximetry 95 02/21/25 17:34 Temperature 97.7 F 02/21/25 17:35 Pulse Rate 74 02/21/25 19:02 Respiratory Rate 14 02/21/25 19:02 Blood Pressure 159/89 H 02/21/25 19:02 Pulse Oximetry 96 02/21/25 19:02 Oxygen Delivery Method Room Air 02/21/25 19:12 MDM - Chest Pain MDM Narrative Medical decision making narrative: During the evaluation of this patient I considered multiple differential diagnosis is. The life-threatening differential diagnosis include coronary disease/AK, pulmonary embolism, pneumothorax, pneumonia, and aortic dissection. Other differential diagnosis included but were not limited to pericarditis, myocarditis, chest wall pain, GERD, esophageal rupture, rib fracture contusion, pleurisy, as well as other etiologies. Medical Records Data Attestation: I reviewed the patient's medical records. Lab Data Attestation: I reviewed the patient's lab results. Labs: Lab Results 02/21/25 02/21/25 Range/Units 17:48 17:54 WBC 5.40 (4.50-11.00) K/uL RBC 5.03 (4.00-5.20) m/uL Hgb 14.9 (12.0-16.0) gm/dL Hct 42.9 (33.0-51.0) % MCV 85 (80-100) fL MCH 30 (26-34) pg MCHC 35 (32-36) gm/dL RDW Coeff of Jaylen 12.7 (11.5-15.5) % Plt Count 193 (140-440) K/uL Neut % (Auto) 57.8 (42.0-72.0) % Lymph % (Auto) 30.2 (20-44) % Emmet % (Auto) 9.4 (0.0-11.0) % Eos % (Auto) 2.0 (0.0-7.0) % Baso % (Auto) 0.6 (0.0-3.0) % Neut # (Auto) 3.12 (1.7-7.0) K/uL Lymph # (Auto) 1.63 (0.90-2.90) K/uL Emmet # (Auto) 0.50 (0.00-0.90) K/UL Eos # (Auto) 0.11 (0.00-0.50) K/uL Baso # (Auto) 0.03 (0.00-0.30) K/uL Abs Immat Gran (auto) 0.00 (0.00-0.30) K/uL Imm/Tot Granulo (auto) 0.0 % APTT 34 H (23-33) Seconds D-Dimer Quant (PE/DVT) < 0.27 (0.00-0.50) ug/ml Sodium 140 (135-149) mmol/L Potassium 3.8 (3.6-5.1) mmol/L Chloride 103 (96-114) mmol/L Carbon Dioxide 26 (20-32) mmol/L Anion Gap 11 (7-15) mEq/L BUN 16 (7-30) mg/dL Creatinine 0.7 (0.5-1.5) mg/dL Estimated Creat Clear 39.04 Estimated GFR 91 ml/min Glucose 104 (60-115) mg/dL Calcium 9.4 (8.4-10.6) mg/dL Magnesium 1.9 (1.5-2.6) mg/dL Troponin I < 0.01 (0.01-0.04) ng/mL C-Reactive Protein < 0.5 L (0.5-1.0) mg/dL NT-Pro-B Natriuret Pep 187 (See Note) pg/mL Ethyl Alcohol < 0.01 (0.01-0.03) % SARS-CoV-2 (PCR) Negative SARS-CoV-2 (Negative) Influenza Type A (PCR) Negative PCR FLU A (Negative) Influenza Type B (PCR) Negative PCR FLU B (Negative) RSV (PCR) Negative PCR RSV (Negative) Imaging Data Chest x-ray: Attestation: I have reviewed the pertinent imaging results. My impression: I reviewed the chest x-ray results I did not see any evidence of an acute process, ECG Data Attestation: I personally reviewed and interpreted this ECG as follows: ECG interpretation date: 02/21/25 Prior ECG tracings: available for review Interpretation: EKG shows normal sinus rhythm with a ventricular rate of 97, OH interval 158 QRS is 78 QT is 342 and QTC is 434. No acute ST wave changes, occasional PVCs are noted. Discharge Plan Discharge Clinical Impression: Frequent PVCs, Chest pain, Anxiety, Hypertension Patient Disposition: Home w/ Parent or Adult Condition: Improved Instructions: Chest Pain (DC), Chronic Hypertension (DC), Premature Ventricular Contractions (ED), Anxiety (ED) Additional Instructions: home, rest, continue with medications, reassurance given, follow-up with Cardiology and also primary care, return if increasing chest pain shortness of breath any atypical features. Activity Level: Light activity Discharge Diet: Regular Prescriptions: No Action aspirin 81 mg capsule 81 mg PO DAILY alprazolam 0.25 mg tablet 0.125 mg PO TID PRN nitroglycerin 0.4 mg tablet, sublingual 0.4 mg sublingual Q5M PRN Patient Comments: Every 5 Minutes X 3 as needed fluticasone propionate 50 mcg/actuation spray,suspension 1 - 2 spray INTRANASAL DAILY PRN cholecalciferol (vitamin D3) 50 mcg (2,000 unit) tablet 50 mcg PO DAILY furosemide 20 mg tablet 20 mg PO Q OTHER DAY PRN famotidine 10 mg tablet 10 mg PO DAILY diazepam 5 mg tablet 2.5 - 5 mg PO Q6H PRN (Reason: anxiety) metoprolol succinate 25 mg tablet extended release 24 hr PO metoprolol tartrate 25 mg tablet 25 mg PO BID Follow Up/Referrals: Kyra Perera PA-C [Primary Care Provider, Family Practice] Stand Alone Forms: [employer] Info Instructions
[2025-02-21 18:22] LABS: Slide Review Reflex No
[2025-02-21 18:23] LABS: Chloride* 103 mmol/L (96-114); Potassium* 3.8 mmol/L (3.6-5.1); Sodium* 140 mmol/L (135-149)
[2025-02-21 18:26] LABS: Anion Gap 11 mEq/L (7-15); Blood Urea Nitrogen* 16 mg/dL (7-30); Carbon Dioxide* 26 mmol/L (20-32); Creatinine* 0.7 mg/dL (0.5-1.5); Est. Creatinine Clearance* 39.04; Estimated Glomerular Filt Rate 91 ml/min
[2025-02-21 18:27] LABS: Calcium* 9.4 mg/dL (8.4-10.6); Glucose* 104 mg/dL (60-115)
[2025-02-21 18:35] LABS: D Dimer Quantitative* < 0.27 ug/ml (0.00-0.50); Ethanol* < 0.01 % (0.01-0.03)
[2025-02-21 18:41] LABS: NT Pro B Type NatriureticPept* 187 pg/mL (See Note)
[2025-02-21 18:49] LABS: PCR FLU A Negative PCR FLU A (Negative); PCR FLU B Negative PCR FLU B (Negative); PCR RSV Negative PCR RSV (Negative); SARS PCR* Negative SARS-CoV-2 (Negative)
== END 2025-02-21 19:25 | disposition home or self-care (01) ==
PROVIDERS: Emergency Provider Family Medicine; PCP Physician Assistant Medical
DX: I49.3 Ventricular premature depolarization (principal); R07.9 Chest pain, unspecified; F41.9 Anxiety disorder, unspecified; I10 Essential (primary) hypertension; Z79.899 Other long term (current) drug therapy
CPT/HCPCS: 36415; 71046; 80048; 80306; 82077; 83735; 83880; 84484; 85025; 85379; 85730; 86140; 87631; 93005; 94761; 99284; 99285

== ENCOUNTER 2025-03-08 14:36 | Emergency (ER) | payer MEDICARE, BC, SELFPAY ==
--- OUTSIDE RECORDS SUMMARY | 2025-01-30 16:32 | XMS_ITS | Encounter Summary ---
Author Organization [facility] Address [address] [place] [address] Care Team Providers Care Health Data Analyst Name Role Phone Kyra Perera Primary Care Provider [phone] Angel Hollins MD Unavailable Petra Dorado Unavailable [phone] Angel Hollins MD Unavailable Yves Ballard MD Unavailable + [phone] Reason for Visit * ReasonCommentsSlurred SpeechNumbness Encounter Details DateTypeDepartmentCare Team (Latest Contact Info)Tlanunkqewk74/20/2025 4:32 PM ENERGY PROJECTS LEAD - 01/30/2025 11:46 PM CSTEmecatarina [facility] [address] [place] [address] Andrea Gamboa DO [facility] [address] [place], [place] [address] Dysarthria (Primary Dx); Right facial numbness; Nonintractable headache, unspecified chronicity pattern, unspecified headache type Discharge Disposition: Home or Self Care Social History Tobacco UseTypesPacks/DayYears UsedDateSmoking Tobacco: NeverSmokeless Tobacco: NeverAlcohol UseStandard Drinks/WeekCommentsNot Currently0 (1 standard drink = 0.6 oz pure alcohol)PHQ-2AnswerDate RecordedPHQ-2 Tpsqs084dolescent EducationAnswerDate RecordedGetting School Help NeededNot on file12/25/2022 CommentsNoSex and Gender InformationValueDate RecordedSex Assigned at BirthNot on fileLegal YaaYuvkal62/04/2012 3:34 AM CSTGender IdentityNot on file Sexual OrientationNot on filedocumented as of this encounter Last Filed Vital Signs Vital SignReadingTime TakenCommentsBlood Mjdszigs413/8501/30/2025 11:38 PM ENERGY PROJECTS LEAD Lwijw372001/30/2025 11:38 PM ADOWbecohzfodj89.9 ??C (98.5 ??F)01/30/2025 4:36 PM CSTRespiratory Sttn481604/01/2024 4:36 PM CSTOxygen Nnxpkrsbdz55%01/30/2025 11:39 PM CSTInhaled Oxygen Concentration--Lsaizh42 kg (132 lb 4.4 oz)01/30/2025 4:36 PM CSTHeight--Body Mass Index24. 7:44 PM CDTdocumented in this encounter Functional Status * Calculated C-SSRS Risk Score (Lifetime/Recent)AnswerDate of AssessmentAuthorNo Risk Tuuclhbht65/20/2025 5:08 PM Anjelica Mederos RN * [place] Suicide Severity Rating Scale (Screener/Recent Self-Report)Question AnswerDate of AssessmentAuthor1. Wish to be (Past 1 Month)No01/30/2025 5:08 PM Anjelica Mederos RN2. Non-Specific Active Suicidal Thoughts (Past 1 Month)No01/30/2025 5:08 PM Anjelica Mederos RN6. Suicidal Behavior (Lifetime)No 01/30/2025 5:08 PM Anjelica Mederos RN documented as of this encounter Discharge Instructions * Discharge Instructions* Andrea Gamboa DO - 01/30/2025 10:56 PM ENERGY PROJECTS LEAD Please follow-up with your primary care provider and and neurologist regarding your visit to the [facility]. Please return to the emergency department should you experience any of the symptoms we specificallydiscussed, including but not limited to recurrence or worsening of your symptoms, or development ofany new and concerning symptoms such as fever, chest pain, shortness of breath, worsening headache,new lightheaded dizziness, new numbness or weakness, or other new neurological symptoms. GY PROJECTS LEAD GY PROJECTS LEAD * Attachments The following attachments cannot be sent through Care Everywhere. * Dysarthria: General Info (Macanese) * Numbness and Tingling (Macanese) * Headache (Macanese) documented in this encounter Medications at Time [...] Loya MD - 01/30/2025 5:07 PM CST [facility] Stroke Telephone Note I was called by [...] CT read by Stroke Neuro Provider 01/30/25 4623 Was stroke code de-escalated? Yes 01/30/[address] head: No acute intracranial [...] To page me or covering stroke neurology team automobile assembler, click here: AMCOM Choose Senior Information Security Architect tab at top, then select NEUROLOGY/ALL SITES from middle drop- down box, press Enter, then look for stroke or telestroke for your site. Cosigned by Raman Bain MD at 02/02/2025 11:58 PM ENERGY PROJECTS LEAD GY PROJECTS LEAD GY PROJECTS LEAD Associated attestation - Raman Bain MD - 02/02/2025 11:58 PM ENERGY PROJECTS LEAD Vascular Neurology Attending Physician Attestation I agree [...] the medication completely as recommended by her ruby on rails developer. Right-sided weakness is not new due to [...] Bilirubin Urine Negative Ketones Urine Negative Specific Goodwin Urine 1.010 Blood Urine Negative pH Urine [...] Dr Alvaro Neves at 5:24 PM 01/30/2025 ENERGY PROJECTS LEAD/CDT. CT Head w/o Contrast Final Result IMPRESSION: 1. No acute cranial hemorrhage identified. 2. No evidence CT acute infarct. Aspect score 10. 3. Chronic intracranial changes described above. Dr Andrea Gamboa was notified by Dr Alvaro Neves at 5:07 PM 01/30/2025 ENERGY PROJECTS LEAD/CDT. EKG ECG results from 01/30/25 EKG 12-lead, tracing only Value Systolic Blood Pressure Diastolic Blood Pressure Ventricular Rate 70 Atrial Rate 70 TN Interval 144 QRS Duration 84 QT 390 QTc 421 P [place] 39 R AXIS 45 T [place] 59 Interpretation ECG Sinus rhythm Normal ECG [...] Course ED Course as of 01/30/[address] [facility] Jan 30, 2025 164 I spoke with [...] Normal sinus rhythm. Rate of 70. Normal TN and QRS. Normal QTc. Early repolarization type appearance throughout leads. No acute ST elevation or depression as compared with 01/08/2025 EKG. Although prior EKG does have significant amount of artifact. 192 Patient passed swallow eval. 2123 I rechecked and updated the patient. Agreeable to MRI. 2309 Notified by ED echocardiograph technician that patient has been ambulating back [...] Documentation None Medical Decision Making / Diagnosis [facility] Diagnoses: None MIPS None [facility] Miya Restrepo is a 74-year-old female [...] derangements. Tier 1 stroke alert activated by wind turbine engineer. Stroke team consulted. Tier 1 stroke orders [...] statements to me. Andrea Gamboa DO 01/30/25 5446 GY PROJECTS LEAD * Gabriella Jacome RN - 01/30/2025 4:38 PM CST Bed: ED33 Expected date: Expected time: Means of arrival: Comments: Tier 1 from [facility] GY PROJECTS LEAD * Gracia Zayas RN - 01/30/2025 4:32 PM CST Pt was at PT around 1430. Started having slurred speech, right sided facial numbness, RUIZ, heart palpitations. Hx of stroke 9 months ago. Tier 1 code stroke called. BG 112. GY PROJECTS LEAD GY PROJECTS LEAD documented in this encounter Plan of Treatment Not on file documented as of this encounter Procedures Procedure NamePriorityDate/TimeAssociated DiagnosisCommentsMR BRAIN W/O & W IDPKSMXXZTCY10/20/2025 10:31 PM ENERGY PROJECTS LEAD EKG 12-LEAD, TRACING SQFFYXKR88/20/2025 4:59 PM ENERGY PROJECTS LEAD EXTRA VCDWDQXC24/20/2025 4:56 PM ENERGY PROJECTS LEAD EXTRA RED TOP KCNDQWQN86/20/2025 4:56 PM ENERGY PROJECTS LEAD CBC WITH PLATELETS AND MLKEUDQDZSEQFCEN10/20/2025 4:56 PM ENERGY PROJECTS LEAD CBC WITH PLATELETS AND DIFFERENTIAL (LIMITED OCCURRENCES)STAT104/01/2024 4:56 PM ENERGY PROJECTS LEAD BASIC METABOLIC PANEL (LIMITED OCCURRENCES)STAT104/01/2024 4:56 PM ENERGY PROJECTS LEAD TROPONIN T, HIGH WCILJSIALXKBROV81/20/2025 4:56 PM ENERGY PROJECTS LEAD ROUTINE UA WITH MICROSCOPIC REFLEX TO LAEBWXBTEQG70/20/2025 4:56 PM ENERGY PROJECTS LEAD YWMLOXZ6601/30/2025 4:56 PM ENERGY PROJECTS LEAD PARTIAL THROMBOPLASTIN GJJGPBIV51/20/2025 4:56 PM ENERGY PROJECTS LEAD CTA HEAD NECK W IHCVRIATXLJP11/20/2025 4:[address] HEAD W/O TJEHGLQIZDXW63/20/2025 4:52 PM ENERGY PROJECTS LEAD GLUCOSE BY KLSOZJUEM50/20/2025 4:32 PM ENERGY PROJECTS LEAD documented in this encounter Results * MR Brain w/o & w Contrast (01/30/2025 10:31 PM ENERGY PROJECTS LEAD)Anatomical RegionLaterality ModalityHead, SUBRAD MR NEURO, UMP MR NEURO, RAD MRMagnetic ResonanceSpecimen (Source)Anatomical Location / LateralityCollection Method / VolumeCollection TimeReceived Time01/30/2025 10:31 PM ENERGY PROJECTS LEAD Impressions 01/30/2025 11:10 PM ENERGY PROJECTS LEAD IMPRESSION: 1. ??No acute intracranial abnormality. 2. ??Chronic right lentiform nucleus lacunar infarct. 3. 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 Narrative 01/30/2025 11:10 PM ENERGY PROJECTS LEAD EXAM: MR BRAIN W/O and W CONTRAST LOCATION: [facility] DATE: 01/30/2025 INDICATION: Slurred speech, right facial [...] MR BRAIN W/O and W CONTRAST LOCATION: [facility] DATE: 01/30/2025 INDICATION: Slurred speech, right facial [...] with Wallerian degeneration. Authorizing ProviderResult TypeResult StatusFerris [facility] MRI ORDERABLESFinal Result * EKG 12-lead, tracing only (01/30/2025 4:59 PM ENERGY PROJECTS LEAD)ComponentValueRef RangeTest MethodAnalysis TimePerformed AtPathologist SignatureSystolic Blood Pressure mmHgRADIOLOGY RESULTSDiastolic Blood PressuremmHgRADIOLOGY RESULTSVentricular Myok31WIBITFZNGXRL RESULTSAtrial Khej23YXNGSWIMEMXE RESULTSPR Tyaopcjx761hi RADIOLOGY RESULTSQRS Twybzwpk72qzWHYNXNKRB UFNSQBVVU283faFHSUFMODG RESULTSQTc 421msRADIOLOGY RESULTSP Coeh25eeuagheWXOCRXZSG RESULTSR FUND30ixksujmJLMHTFKBR RESULTST Aaag17yrjnzlcXIEIEXCFO RESULTSInterpretation ECGSinus rhythm Normal ECG When compared with ECG of 08-Jan-2025 19:51, ST elevation now present in Lateral leads Confirmed by SEE ED PROVIDER NOTE FOR, ECG INTERPRETATION (4000), editor continuity and script PIYUSH SAAVEDRA ([id number]) on 01/31/2025 7:21:49 AM RADIOLOGY RESULTSSpecimen (Source)Anatomical Location / LateralityCollection Method / VolumeCollection TimeReceived Time01/30/2025 4:59 PM CST01/31/2025 7:21 AM ENERGY PROJECTS LEAD Narrative Authorizing ProviderResult TypeResult StatusFerris [facility] DOECG ORDERABLESEdited Result - FinalPerforming OrganizationAddressCity/State/ZIP CodePhone Number RADIOLOGY RESULTS * UA with Microscopic reflex to Culture (01/30/2025 4:56 PM ENERGY PROJECTS LEAD)ComponentValue Ref RangeTest MethodAnalysis TimePerformed AtPathologist SignatureColor Urine StrawColorless, Straw, Light Yellow, Laadfi0601/30/2025 5:08 PM [facility] Appearance TiqsjSbzqdEryja45/20/2025 5:08 PM [facility] LABORATORYGlucose Urine NegativeNegative mg/dL01/30/2025 5:08 PM [facility] LABORATORYBilirubin Urine ZkyturaeLarwzzwt62/20/2025 5:08 PM [facility] LABORATORYKetones UrineNegative Negative mg/dL01/30/2025 5:08 PM [facility] LABORATORYSpecific Goodwin Urine1.010 1.003 - 1.5487501/30/2025 5:08 PM [facility] LABORATORYBlood UrineNegativeNegative 01/30/2025 5:08 PM [facility] LABORATORYpH Urine6.55.0 - 7. 5:08 PM [facility] LABORATORYProtein Albumin UrineNegativeNegative mg/dL01/30/2025 5:08 PM [facility] LABORATORYUrobilinogen UrineNormalNormal mg/dL01/30/2025 5:08 PM [facility] LABORATORYNitrite DolevSrfjcjepWpqrykiy15/20/2025 5:08 PM [facility] Leukocyte Esterase ZrewnPwagssgwBwncgoui66/20/2025 5:08 PM [facility] LABORATORYRBC Urine<1<=2 /HPF01/30/2025 5:08 PM [facility] LABORATORYWBC Urine1<=5 /HPF01/30/2025 5:08 PM [facility] LABORATORYSquamous Epithelials Urine<1<=1 /HPF01/30/2025 5:08 PM [facility] LABORATORYSpecimen (Source)Anatomical Location / LateralityCollection Method / VolumeCollection TimeReceived TimeUrineURINE SPECIMEN OBTAINED BY CLEAN CATCH PROCEDURE / UnknownNon-blood Collection / Lfsrrvd7001/30/2025 4:56 PM CST01/30/2025 5:01 PM ENERGY PROJECTS LEAD Narrative [facility] - 01/30/2025 5:08 PM [facility] Urine Culture not indicated Authorizing ProviderResult TypeResult StatusFerris Yenadeem DOLAB - URINE ORDERABLES Final ResultPerforming OrganizationAddressCity/State/ZIP CodePhone Number [facility] Lab [address] [facility] Lab (1st floor, no room number) [place] [address] * Extra Red Top Tube (01/30/2025 4:56 PM ENERGY PROJECTS LEAD)ComponentValueRef RangeTest Method Analysis TimePerformed AtPathologist SignatureHold XhdlzxocMTW70/20/2025 6:05 PM [facility] LABORATORYSpecimen (Source)Anatomical Location / LateralityCollection Method / VolumeCollection TimeReceived TimeBloodBLOOD SPECIMEN / Unknown Venipuncture / Vuzephc6801/30/2025 4:56 PM CST01/30/2025 5:01 PM ENERGY PROJECTS LEAD Narrative Authorizing ProviderResult TypeResult StatusFermartha Gamboa DOLAB - BLOOD ORDERABLES Final ResultPerforming OrganizationAddressCity/State/ZIP CodePhone Number [facility] [address] [facility] Lab (1st floor, no room number) [place] [phone] * CBC with platelets and differential (01/30/2025 4:56 PM ENERGY PROJECTS LEAD)ComponentValueRef RangeTest MethodAnalysis TimePerformed AtPathologist SignatureWBC Count6.34 4.00 - 11.00 10e3/uL01/30/2025 5:04 PM [facility] LABORATORYRBC Count4.653.80 - 5.20 10e6/uL01/30/2025 5:04 PM [facility] KCLUUUGRBAXkuevmwpog34.911.7 - 15.7 g/dL 01/30/2025 5:04 PM [facility] ZGPSYUSNNKKiwxpygonu80.835.0 - 47.0 %01/30/2025 5:04 PM [facility] KZHKGGHHJLFON04.778.0 - 100.0 fL01/30/2025 5:04 PM [facility] MCH29.926.5 - 33.0 pg01/30/2025 5:04 PM [facility] VOYECEHAIBWCMH21.131.5 - 36.5 g/dL01/30/2025 5:04 PM [facility] UHUGPUSPIGGFM19.110.0 - 15.0 %01/30/2025 5:04 PM [facility] LABORATORYPlatelet Nqjiu716809 - 450 10e3/uL01/30/2025 5:04 PM [facility] LABORATORY% Bsxuyhhtsay25.0%01/30/2025 5:04 PM [facility] LABORATORY% Lymphocytes 29.3%01/30/2025 5:04 PM [facility] LABORATORY% Monocytes7.9%01/30/2025 5:04 PM ENERGY PROJECTS LEAD LABORATORY% Eosinophils2.1%01/30/2025 5:04 PM [facility] LABORATORY% Basophils 0.5%01/30/2025 5:04 PM [facility]% Immature Granulocytes0.2%01/30/2025 5:04 PM [facility] LABORATORYNRBCs per 100 WBC0.0<1.0 /7453201/30/2025 5:04 PM [facility] LABORATORYAbsolute Neutrophils3.811.60 - 8.30 10e3/uL01/30/2025 5:04 PM [facility] LABORATORYAbsolute Lymphocytes1.860.80 - 5.30 10e3/uL01/30/2025 5:04 PM [facility] LABORATORYAbsolute Monocytes0.500.00 - 1.30 10e3/uL01/30/2025 5:04 PM [facility] LABORATORYAbsolute Eosinophils0.130.00 - 0.70 10e3/uL01/30/2025 5:04 PM [facility] LABORATORYAbsolute Basophils0.030.00 - 0.20 10e3/uL01/30/2025 5:04 PM [facility] LABORATORYAbsolute Immature Granulocytes<0.03<=0.40 10e3/uL01/30/2025 5:04 PM [facility] LABORATORYAbsolute NRBCs<0.0310e3/uL01/30/2025 5:04 PM [facility] Specimen (Source)Anatomical Location / LateralityCollection Method / Volume Collection TimeReceived TimeBloodBLOOD SPECIMEN / UnknownVenipuncture / Hgmnqgz5901/30/2025 4:56 PM CST01/30/2025 5:01 PM [facility] Narrative Authorizing ProviderResult TypeResult StatusFerris [facility] DOLAB - BLOOD ORDERABLES Final ResultPerforming OrganizationAddressCity/State/ZIP CodePhone Number LABORATORY [facility] [address] [facility] [facility] ([facility] floor, no room number) [place] [address], [facility] * Troponin T, High Sensitivity (01/30/2025 4:56 PM ENERGY PROJECTS LEAD)ComponentValueRef Range Test MethodAnalysis TimePerformed AtPathologist SignatureTroponin T, High Sensitivity<6<=14 ng/L104/01/2024 5:57 PM [facility] LABORATORYComment: Either a High Sensitivity Troponin [...] Unknown 01/30/2025 4:56 PM CST01/30/2025 5:01 PM ENERGY PROJECTS LEAD Narrative Authorizing ProviderResult TypeResult StatusFerris Cooper DOLAB - BLOOD ORDERABLES Final ResultPerforming OrganizationAddressCity/State/ZIP CodePhone Number [facility] [address] [facility] Lab (1st floor, no room number) [place] [address], [facility] * Partial thromboplastin time (01/30/2025 4:56 PM ENERGY PROJECTS LEAD)ComponentValueRef Range Test MethodAnalysis TimePerformed AtPathologist BmpfnoqayvQOX5963 - 38 Seconds 01/30/2025 5:21 PM CST LABORATORYSpecimen (Source)Anatomical Location / LateralityCollection Method / VolumeCollection TimeReceived TimeBloodBLOOD SPECIMEN / UnknownVenipuncture / Qpjsbuh9401/30/2025 4:56 PM CST01/30/2025 5:01 PM ENERGY PROJECTS LEAD Narrative Authorizing ProviderResult TypeResult StatusFerris Yeh DOLAB - BLOOD ORDERABLES Final ResultPerforming OrganizationAddressCity/State/ZIP CodePhone Number [facility] [address] Lab (1st floor, no room number) [place] [address], [facility] * INR (01/30/2025 4:56 PM ENERGY PROJECTS LEAD)ComponentValueRef RangeTest MethodAnalysis Time Performed AtPathologist SignatureINR0.970.85 - 1.15104/01/2024 5:21 PM CST SNEISIANLRCP09.811.8 - 14.8 Hlrwgxn4901/30/2025 5:21 PM [facility] LABORATORYSpecimen (Source)Anatomical Location / LateralityCollection Method / VolumeCollection TimeReceived TimeBloodBLOOD SPECIMEN / UnknownVenipuncture / Zflhlyf4001/30/2025 4:56 PM CST01/30/2025 5:01 PM ENERGY PROJECTS LEAD Narrative Authorizing ProviderResult TypeResult StatusFerris [facility] DOLAB - BLOOD ORDERABLES Final ResultPerforming OrganizationAddressCity/State/ZIP CodePhone Number [facility] [address] [facility] Lab (1st floor, no room number) [place] [address], [facility] * (ABNORMAL) Basic Metabolic Panel (Limited Occurrences) (01/30/2025 4:56 PM ENERGY PROJECTS LEAD)ComponentValueRef RangeTest MethodAnalysis TimePerformed AtPathologist VmniagxemSdgcdi646062 - 145 mmol/L104/01/2024 5:57 PM [facility] LABORATORYPotassium 3.73.4 - 5.3 mmol/L104/01/2024 5:57 PM CST ISLFYLJMOSQwsmgjbn32829 - 107 mmol/L104/01/2024 5:57 PM [facility] LABORATORYCarbon Dioxide (CO2)2522 - 29 mmol/L 01/30/2025 5:57 PM CST LABORATORYAnion Xip874 - 15 mmol/L104/01/2024 5:57 PM CST LABORATORYUrea Cpaaykpe16.48.0 - 23.0 mg/dL01/30/2025 5:57 PM CST LABORATORYCreatinine0.750.51 - 0.95 mg/dL01/30/2025 5:57 PM [facility] LABORATORY GFR Mtnuixni84>60 mL/min/1.48x41801/30/2025 5:57 PM CST LABORATORYComment:eGFR calculated using 2020 CKD-EPI equation.Calcium9.48.8 - 10.4 mg/dL01/30/2025 5:57 PM CSTRH ELEWZQGUMVHuaushb129(H)70 - 99 mg/dL01/30/2025 5:57 PM CSTRH LABORATORYSpecimen (Source)Anatomical Location / LateralityCollection Method / VolumeCollection TimeReceived TimeBloodBLOOD SPECIMEN / UnknownVenipuncture / Ayxeftl0801/30/2025 4:56 PM CST01/30/2025 5:01 PM ENERGY PROJECTS LEAD Narrative Authorizing ProviderResult TypeResult StatusFermartha Gamboa DOLAB - BLOOD ORDERABLES Final ResultPerforming OrganizationAddressCity/State/ZIP CodePhone Number [facility] Lab [address] [facility] Lab (1st floor, no room number) [place] [address] * CTA Head Neck with Contrast (01/30/2025 4:52 PM ENERGY PROJECTS LEAD)Anatomical Region LateralityModalityHead, SUBRAD CT NEURO, SUBRAD CT NEURO, UMP CT NEURO, RAD CT Computed TomographySpecimen (Source)Anatomical Location / LateralityCollection Method / VolumeCollection TimeReceived Time01/30/2025 4:52 PM ENERGY PROJECTS LEAD Impressions 01/30/2025 5:28 PM ENERGY PROJECTS LEAD IMPRESSION: HEAD CTA: 1. ??No new intracranial [...] Dr Alvaro Neves at ??5:24 PM 01/30/2025 ENERGY PROJECTS LEAD/CDT. Narrative 01/30/2025 5:28 PM ENERGY PROJECTS LEAD EXAM: CTA HEAD NECK W CONTRAST LOCATION: [facility] DATE: 01/30/2025 INDICATION: Code Stroke, evaluate for LVO. Right facial numbness. Slurred speech. Headache. COMPARISON: CTA head and neck 01/27/2024, MRA head and neck 11/30/2024 CONTRAST: 71mL Cuieogcwt139 TECHNIQUE: Head and neck CT angiogram with [...] head and neck 01/27/2024. Right origin [employer] NECK CTA: Right mid to distal cervical [...] EXAM: CTA HEAD NECK W CONTRAST LOCATION: [facility] DATE: 01/30/2025 INDICATION: Code Stroke, evaluate for LVO. Right facial numbness. Slurredspeech. Headache. COMPARISON: CTA head and neck 01/27/2024, MRA head and neck 11/30/2024 CONTRAST: 71mL Ngabxiqtz619 TECHNIQUE: Head and neck CT angiogram with [...] head and neck 01/27/2024. Right origin [employer] NECK CTA: Right mid to distal cervical [...] PM 5CST/CDT. Authorizing ProviderResult TypeResult StatusFermartha Gamboa [facility] CT ORDERABLESFinal Result * CT Head w/o Contrast (01/30/2025 4:52 PM ENERGY PROJECTS LEAD)Anatomical RegionLaterality ModalityHead, SUBRAD CT NEURO, SUBRAD CT NEURO, UMP CT NEURO, RAD CTComputed TomographySpecimen (Source)Anatomical Location / LateralityCollection Method / VolumeCollection TimeReceived Time01/30/2025 4:52 PM ENERGY PROJECTS LEAD Impressions 01/30/2025 5:28 PM ENERGY PROJECTS LEAD IMPRESSION: 1. ??No acute cranial hemorrhage identified. 2. ??No evidence CT acute infarct. Aspect score 10. 3. ??Chronic intracranial changes described above. Dr Andrea Gamboa was notified by Dr Alvaro Neves at ??5:07 PM 01/30/2025 ENERGY PROJECTS LEAD/CDT. Narrative 01/30/2025 5:28 PM ENERGY PROJECTS LEAD EXAM: CT HEAD W/O CONTRAST LOCATION: [facility] DATE: 01/30/2025 INDICATION: Code Stroke, rule out [...] 01/30/2025 EXAM: CT HEAD W/O CONTRAST LOCATION: [facility] DATE: 01/30/2025 INDICATION: Code Stroke, rule out [...] (ABNORMAL) Glucose by meter (01/30/2025 4:32 PM ENERGY PROJECTS LEAD)ComponentValueRef Range Test MethodAnalysis TimePerformed AtPathologist SignatureGLUCOSE BY METER POCT 112(H)70 - 99 mg/dL01/30/2025 4:39 PM CST LABORATORY POCComment:Dr/RN NotifiedSpecimen (Source)Anatomical Location / LateralityCollection Method / VolumeCollection TimeReceived TimeBlood, CapillaryBLOOD SPECIMEN / Unknown 01/30/2025 4:32 PM CST01/30/2025 4:39 PM ENERGY PROJECTS LEAD Narrative Authorizing ProviderResult TypeResult StatusProvider UnknownLAB - BEAKER POCT Final ResultPerforming OrganizationAddressCity/State/ZIP CodePhone Number LABORATORY [facility] [address] [facility] Lab (1st floor, no room number) [place] [address] documented in this encounter Visit Diagnoses Diagnosis [...] 1 dose $New Bag01/30/2025 5:39 PM CST1,000 iKd4840 mL/hr prochlorperazine (COMPAZINE) injection 5 mg 5 [...] receiving a CT scan. $Given01/30/2025 4:48 PM PWC816 mLsdocumented in this encounter Active and Recently Administered Medications Times are shown in ENERGY PROJECTS LEAD.Medication Order/ diphenhydrAMINE (BENADRYL) injection 25 mg (COMPLETED) [...] 1,000 mL/hr, Administer over 1 Hours, On Aym 01/30/25 at 1710, For 1 dose * [...] for patients receiving a CT scan. * 9729 ($Given - Provider: CED Garcia) Order Group [...] Team MemberRelationshipSpecialtyStart DateEnd Date Kyra Perera [address] [place] [address] PCP - GeneralPhysician Assistant03/31/22 Angel Hollins MD [address] [id number] Neurology07/20/23 Petra Dorado PA [address] [place], [place] [address] Physician AssistantPhysical Medicine and Rehabilitation07/20/23 Angel Hollins MD [address] [address] Assigned Neuroscience Provider08/03/23 Yves Ballard MD [address] [place] [address] Assigned Heart and Vascular Provider12/04/23documented as of this encounter
--- OUTSIDE RECORDS SUMMARY | 2025-02-10 10:50 | XMS_ITS | Encounter Summary ---
Author Organization [place] Address [address] [place] [address] Care Team Providers Care Server Assistant Name Role Phone Kyra Perera Primary Care Provider [phone] Angel Hollins MD Unavailable Petra Dorado Unavailable [phone] Angel Hollins MD Unavailable Yves Ballard MD Unavailable + [phone] Reason for Visit * ReasonCommentsChest Pain Encounter Details DateTypeDepartmentCare Team (Latest Contact Info)Bjvyyszyqax08/01/2025 10:50 AM ASSURANCE SENIOR - 02/10/2025 3:42 PM Rosie [facility] Emergency Dept [address] [place] [address] [phone] Jensen Jacob, DO [facility] [address] [place], [place] [id number] Chest pain, unspecified type (Primary Dx); Elevated blood pressure reading with diagnosis of hypertension Discharge Disposition: Home or Self Care Social History Tobacco UseTypesPacks/DayYears UsedDateSmoking Tobacco: NeverSmokeless Tobacco: NeverAlcohol UseStandard Drinks/WeekCommentsNot Currently0 (1 standard drink = 0.6 oz pure alcohol)PHQ-2AnswerDate RecordedPHQ-2 Tzyii524dolescent EducationAnswerDate RecordedGetting School Help NeededNot on file12/25/2022 CommentsNoSex and Gender InformationValueDate RecordedSex Assigned at BirthNot on fileLegal DvaYhofum27/04/2012 3:34 AM CSTGender IdentityNot on file Sexual OrientationNot on filedocumented as of this encounter Last Filed Vital Signs Vital SignReadingTime TakenCommentsBlood Szheulgx512/9302/10/2025 3:15 PM ASSURANCE SENIOR Vejar420202/10/2025 3:15 PM KFHEfgnavetwit87.3 ??C (99.1 ??F)02/10/2025 10:56 AM CSTRespiratory Zwvq438504/13/2024 12:45 PM CSTOxygen Hphswljxnb21%02/10/2025 12:45 PM CSTInhaled Oxygen Concentration--Rcnfnh41.1 kg (137 lb)02/10/2025 10:53 AM UACGwqjed386.5 cm (5' 2)02/10/2025 10:53 AM CSTBody Mass Index25.0602/10/2025 10:53 AM CSTdocumented in this encounter Functional Status * Calculated C-SSRS Risk Score (Lifetime/Recent)AnswerDate of AssessmentAuthorNo Risk Dxaimnpkw03/01/2025 10:52 AM Dulce Hebert RN * [place] Suicide Severity Rating Scale (Screener/Recent Self-Report)Question AnswerDate of AssessmentAuthor1. Wish to be (Past 1 Month)No02/10/2025 10:52 AM Dulce Hebert RN2. Non-Specific Active Suicidal Thoughts (Past 1 Month)No02/10/2025 10:52 AM Dulce Hebert RN6. Suicidal Behavior (Lifetime)No02/10/2025 10:52 AM Dulce Hebert RN documented as of this encounter Discharge Instructions * Discharge Instructions* Jensen Jacob, - 02/10/2025 3:24 PM ASSURANCE SENIOR Discharge Instructions Chest Pain You have been [...] if there is anything that worries you. RANCE SENIOR documented in this encounter Medications at Time [...] Hyatt, RN - 02/10/2025 3:13 PM CST [facility] ED Nurse Handoff Report ED Chief complaint: Chest Pain . ED Diagnosis: Final diagnoses: None Allergies: Allergies[1] Code Status: Full Code Activity level - Baseline/Home: independent. Activity Level - Current: assist of 1. Lift room needed: No. Bariatric: No Excelsior Picker Needed: No Isolation: No. Infection: Not Applicable. [...] ED. She states that she chewed 4x Dqolcvk05ee, and was given nitroglycerin en route via [...] Hives Isosorbide Palpitations Propranolol Anxiety and Headache RANCE SENIOR * Jensen Jacob DO - 02/10/2025 11:04 [...] Pressure Ventricular Rate 80 Atrial Rate 80 [place] Interval 156 QRS Duration 78 QT 362 QTc 417 P [place] 62 R AXIS 27 T [place] 45 Interpretation ECG Sinus rhythm Normal ECG When compared with ECG of 30-Jan-2025 16:59, No significant change was found Unconfirmed report - interpretation of this ECG is computer generated - see medical record for final interpretation Confirmed by - EMERGENCY ROOM, PHYSICIAN ([id number]), state editor Raymundo Bustamante ([id number]) on 02/10/2025 11:34:31AM Independent Interpretation CXR: No pneumothorax, infiltrate, cardiomegaly, or mediastinal widening. ED Course Medications Administered Medications acetaminophen (TYLENOL) tablet 1,000 mg (1,000 mg Oral $Given 02/10/25 8632) Procedures Procedures Discussion of Management None ED Course ED Course as of 02/10/25 1609 Mon Feb 10, 2025 1105 I obtained history and examined the patient as noted above. Additional Documentation None Medical Decision Making / Diagnosis [facility] Diagnoses: None MIPS None MDM Miya Restrepo [...] to me. Jensen Jacob DO 02/10/25 1609 RANCE SENIOR * Dulce Hyatt, RN - 02/10/2025 10:54 AM CST Pt arrives via EMS from home d/t mid-sternal CP that radiates to back since last night. Home BP last few days 230/120s, hasn't taken BP meds in a few days. EKG SR. 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 20 g L AC. Hx CVA with R hand def. BG 121. Reports SOB and nausea. No diaphoresis. ABC intact. A&Ox4. RANCE SENIOR * Gwen Trujillo RN - 02/10/2025 10:50 AM CST Bed: ED13 Expected date: Expected time: Means of arrival: Comments: [id number] 74 f yoo cp RANCE SENIOR documented in this encounter Plan of Treatment Not on file documented as of this encounter Procedures Procedure NamePriorityDate/TimeAssociated DiagnosisCommentsEXTRA TUBESTAT 02/10/2025 12:13 PM ASSURANCE SENIOR EXTRA PURPLE TOP RIXSVESC02/01/2025 12:13 PM ASSURANCE SENIOR BASIC METABOLIC PANEL (LIMITED OCCURRENCES)STAT104/13/2024 12:13 PM ASSURANCE SENIOR XR CHEST 2 WUPFJXKYH02/01/2025 11:36 AM ASSURANCE SENIOR EXTRA QJFBGFXL44/01/2025 11:01 AM ASSURANCE SENIOR EXTRA BLUE TOP QRBWNOPN50/01/2025 11:01 AM ASSURANCE SENIOR CBC WITH PLATELETS AND SZEKHHUQTUCZLLOP29/01/2025 11:01 AM ASSURANCE SENIOR CBC WITH PLATELETS AND DIFFERENTIAL (LIMITED OCCURRENCES)STAT104/13/2024 11:01 AM ASSURANCE SENIOR TROPONIN T, HIGH UGZSAJBOOUIHXSR94/01/2025 11:01 AM ASSURANCE SENIOR EKG 12-LEAD, TRACING YEABLBJZ34/01/2025 10:51 AM ASSURANCE SENIOR documented in this encounter Results * Extra Purple Top Tube (02/10/2025 12:13 PM ASSURANCE SENIOR)ComponentValueRef RangeTest MethodAnalysis TimePerformed AtPathologist SignatureHold FdkijqtrBDK58/01/2025 1:32 PM [facility] LABORATORYSpecimen (Source)Anatomical Location / Laterality Collection Method / VolumeCollection TimeReceived TimeBloodBLOOD SPECIMEN / UnknownVenipuncture / Gcmypug3102/10/2025 12:13 PM CST02/10/2025 12:20 PM ASSURANCE SENIOR Narrative Authorizing ProviderResult TypeResult StatusAasherman Jacob DOLAB - BLOOD ORDERABLESFinal ResultPerforming OrganizationAddressCity/State/ZIP CodePhone Number [facility] Acute Care Lab [address] [facility] Lab (1st floor, no room number) [place] [address], [facility] * Basic Metabolic Panel (Limited Occurrences) (02/10/2025 12:13 PM ASSURANCE SENIOR)Component ValueRef RangeTest MethodAnalysis TimePerformed AtPathologist SignatureSodium 575685 - 145 mmol/L104/13/2024 12:40 PM [facility] LABORATORYPotassium4.03.4 - 5.3 mmol/L104/13/2024 12:40 PM [facility] KNYZBEFGKMVixhftwu16018 - 107 mmol/L104/13/2024 12:40 PM [facility] LABORATORYCarbon Dioxide (CO2)2522 - 29 mmol/L104/13/2024 12:40 PM [facility] LABORATORYAnion Yra418 - 15 mmol/L104/13/2024 12:40 PM [facility] LABORATORYUrea Vuosefty96.58.0 - 23.0 mg/dL02/10/2025 12:40 PM [facility] LABORATORYCreatinine0.700.51 - 0.95 mg/dL02/10/2025 12:40 PM [facility] LABORATORY GFR Ubqoxrms15>60 mL/min/1.77e30802/10/2025 12:40 PM [facility] LABORATORYComment: eGFR calculated using 2020 CKD-EPI equation.Calcium9.38.8 - 10.4 mg/dL 02/10/2025 12:40 PM [facility] DLDXIFAUGXRtauioh1858 - 99 mg/dL02/10/2025 12:40 PM [facility] LABORATORYSpecimen (Source)Anatomical Location / LateralityCollection Method / VolumeCollection TimeReceived TimeBloodBLOOD SPECIMEN / Unknown Venipuncture / Ieaqdhr0002/10/2025 12:13 PM CST02/10/2025 12:20 PM ASSURANCE SENIOR Narrative Authorizing ProviderResult TypeResult StatusJensen Jacob DOLAB - BLOOD ORDERABLESFinal ResultPerforming OrganizationAddressCity/State/ZIP CodePhone Number [facility] Acute Care Lab [address] [facility] floor, no room number) [place] [address], [facility] * XR Chest 2 Views (02/10/2025 11:36 AM ASSURANCE SENIOR)Anatomical RegionLateralityModality ChestDigital RadiographySpecimen (Source)Anatomical Location / Laterality Collection Method / VolumeCollection TimeReceived Time02/10/2025 11:36 AM ASSURANCE SENIOR Impressions 02/10/2025 11:40 AM ASSURANCE SENIOR IMPRESSION: The cardiac silhouette is unchanged. No pneumothorax. No pleural effusions. No focal airspace consolidations. Narrative 02/10/2025 11:40 AM ASSURANCE SENIOR EXAM: XR CHEST 2 VIEWS LOCATION: [facility] DATE: 02/10/2025 INDICATION: chest pain COMPARISON: 01/08/2025 Procedure Note Jim Madera MD - 02/10/2025 EXAM: XR CHEST 2 VIEWS LOCATION: [facility] DATE: 02/10/2025 INDICATION: chest pain COMPARISON: 01/08/2025 IMPRESSION: The cardiac silhouette is unchanged. No pneumothorax. Nopleural effusions. No focal airspace consolidations. Authorizing ProviderResult TypeResult Danyel Jacob DOI DIAGNOSTIC IMAGING ORDERABLESFinal Result * Extra Blue Top Tube (02/10/2025 11:01 AM ASSURANCE SENIOR)ComponentValueRef RangeTest MethodAnalysis TimePerformed AtPathologist SignatureHold GhzomkxyCBL62/01/2025 12:08 PM [facility] LABORATORYSpecimen (Source)Anatomical Location / Laterality Collection Method / VolumeCollection TimeReceived TimeBloodBLOOD SPECIMEN / UnknownVenipuncture / Yxcupxr3102/10/2025 11:01 AM CST02/10/2025 11:07 AM ASSURANCE SENIOR Narrative Authorizing ProviderResult TypeResult StatusAasherman Jacob DOLAB - BLOOD ORDERABLESFinal ResultPerforming OrganizationAddressCity/State/ZIP CodePhone Number LABORATORY [facility] Acute Care Lab [address] [facility] Lab (1st floor, no room number) [place] [address], [facility] * CBC with platelets and differential (02/10/2025 11:01 AM [facility])ComponentValueRef RangeTest MethodAnalysis TimePerformed AtPathologist SignatureWBC Count4.96 4.00 - 11.00 10e3/uL02/10/2025 11:10 AM [facility] LABORATORYRBC Count3.943.80 - 5.20 10e6/uL02/10/2025 11:10 AM [facility] CNHYLRYXMSSzhwfoabtk40.711.7 - 15.7 g/dL 02/10/2025 11:10 AM [facility] IJJOBUGYGOEloliatrgf18.235.0 - 47.0 %02/10/2025 11:10 AM [facility] EUWISLFXZEBKE96.378.0 - 100.0 fL02/10/2025 11:10 AM [facility] TZFYJGUNPCEWW34.726.5 - 33.0 pg02/10/2025 11:10 AM [facility] XSNXDNAMXKYOHK69.2 31.5 - 36.5 g/dL02/10/2025 11:10 AM [facility] VLALHHDDNRRKV38.910.0 - 15.0 % 02/10/2025 11:10 AM [facility] LABORATORYPlatelet Uintr540643 - 450 10e3/uL 02/10/2025 11:10 AM [facility] LABORATORY% Qzufeukqqmw81.7%02/10/2025 11:10 AM [facility] LABORATORY% Kqbruhgixdt94.0%02/10/2025 11:10 AM [facility] LABORATORY% Monocytes 6.9%02/10/2025 11:10 AM [facility] LABORATORY% Eosinophils1.0%02/10/2025 11:10 AM [facility]% Basophils0.2%02/10/2025 11:10 AM [facility] LABORATORY% Immature Granulocytes0.2%02/10/2025 11:10 AM [facility] LABORATORYNRBCs per 100 WBC0.0<1.0 /7285902/10/2025 11:10 AM [facility] LABORATORYAbsolute Neutrophils3.611.60 - 8.30 10e3/uL02/10/2025 11:10 AM [facility] LABORATORYAbsolute Lymphocytes0.940.80 - 5.30 e3/uL02/10/2025 11:10 AM [facility] LABORATORYAbsolute Monocytes0.340.00 - 1.30 e3/uL02/10/2025 11:10 AM [facility] LABORATORYAbsolute Eosinophils0.050.00 - 0.70 e3/uL02/10/2025 11:10 AM [facility] LABORATORYAbsolute Basophils<0.030.00 - 0.20 10e3/uL02/10/2025 11:10 AM [facility] LABORATORYAbsolute Immature Granulocytes <0.03<=0.40 10e3/uL02/10/2025 11:10 AM [facility] LABORATORYAbsolute NRBCs<0.03 /uL02/10/2025 11:10 AM [facility] LABORATORYSpecimen (Source)Anatomical Location / LateralityCollection Method / VolumeCollection TimeReceived Time BloodBLOOD SPECIMEN / UnknownVenipuncture / Retwohg5502/10/2025 11:01 AM ASSURANCE SENIOR 02/10/2025 11:07 AM [facility] Narrative Authorizing ProviderResult TypeResult StatusAasherman Jacob DOLAB - BLOOD ORDERABLESFinal ResultPerforming OrganizationAddressCity/State/ZIP CodePhone Number [facility] Acute Care Lab [address] [facility] Lab (1st floor, no room number) [place] [address], [facility] * Troponin T, High Sensitivity (02/10/2025 11:01 AM ASSURANCE SENIOR)ComponentValueRef Range Test MethodAnalysis TimePerformed AtPathologist SignatureTroponin T, High Sensitivity<6<=14 ng/L104/13/2024 11:29 AM [facility] LABORATORYComment: Either a High Sensitivity Troponin T [...] Unknown 02/10/2025 11:01 AM CST02/10/2025 11:08 AM ASSURANCE SENIOR Narrative Authorizing ProviderResult TypeResult StatusJensen Jacob DOLAB - BLOOD ORDERABLESFinal ResultPerforming OrganizationAddressCity/State/ZIP CodePhone Number [facility] Acute Care Lab [address] [facility] Lab (1st floor, no room number) [place] [address] * EKG 12 lead (02/10/2025 10:51 AM ASSURANCE SENIOR)ComponentValueRef RangeTest Method Analysis TimePerformed AtPathologist SignatureSystolic Blood PressuremmHg RADIOLOGY RESULTSDiastolic Blood PressuremmHgRADIOLOGY RESULTSVentricular Rate 80BPMRADIOLOGY RESULTSAtrial Ddvu21PKXFHIRJSRBX RESULTSPR Sdyceuqp326wu RADIOLOGY RESULTSQRS Blaipezj81wjWXTJOHVKY POBSFXQUZ129asEHAYTNJPS RESULTSQTc 417msRADIOLOGY RESULTSP Aivt13vjzzefeHGIWVZEPZ RESULTSR WWHP94hebudmyRTIOXCQPM RESULTST Nsej51mpxqbxmXXSBNFMVJ RESULTSInterpretation ECGSinus rhythm Normal ECG When compared with ECG of 30-Jan-2025 16:59, No significant change was found Unconfirmed report - interpretation of this ECG is computer generated - see medical record for final interpretation Confirmed by - EMERGENCY ROOM, PHYSICIAN ([id number]), state editor Raymundo Bustamante ([id number]) on 02/10/2025 11:34:31AM RADIOLOGY RESULTSSpecimen (Source)Anatomical Location / LateralityCollection Method / VolumeCollection TimeReceived Time02/10/2025 10:51 AM CST02/10/2025 11:34 AM ASSURANCE SENIOR Narrative Authorizing ProviderResult TypeResult StatusKylah Garcia MDECG [...] Recently Administered Medications Times are shown in ASSURANCE SENIOR.Medication Order02/08/20240313// acetaminophen (TYLENOL) tablet 1,000 mg (COMPLETED) 1,000 mg, Oral, ONCE, On Mon02/10/25 at 1445, For 1 dose, Maximum acetaminophen dose from all sources = 75 mg/kg/day not to exceed 4 gram * 1526 ($Given - Provider: Skylar Shah RN) documented in this encounter Care Teams Team MemberRelationshipSpecialtyStart DateEnd Date Kyra Perera [address] [place] [address] PCP - GeneralPhysician Assistant03/31/22 Angel Hollins MD [address] [place] [address] Neurology07/20/23 Petra Dorado PA [address] [address] Physician AssistantPhysical Medicine and Rehabilitation07/20/23 Angel Hollins MD [address] [address] Assigned Neuroscience Provider08/03/23 Yves Ballard MD [address] [address] Assigned Heart and Vascular Provider12/04/23documented as of this encounter
[2025-03-08] VITALS (14 sets, daily range): BP systolic 132–227; BP diastolic 78–102; PULSE 67–81; RESP 12–24; TEMP 36.6; O2SAT 93–97; BMI 24.7
--- OUTSIDE RECORDS SUMMARY | 2025-03-08 14:38 | XMS_ITS | Encounter Summary ---
Author Organization [facility] Address [address] [place] [address] Care Team Providers Care Supervisor [employer] Name Role Phone Kyra Perera Primary Care Provider [phone] Angel Hollins MD Unavailable Ptera Dorado Unavailable [phone] Angel Hollins MD Unavailable [phone] Yves Ballard MD Unavailable + [phone] Encounter Details DateTypeDepartmentCare Team (Latest Contact Info)Foldwlbmshn50/20/2025Travel Social History Tobacco UseTypesPacks/DayYears UsedDateSmoking Tobacco: NeverSmokeless Tobacco: NeverAlcohol UseStandard Drinks/WeekCommentsNot Currently0 (1 standard drink = 0.6 oz pure alcohol)PHQ-2AnswerDate RecordedPHQ-2 [id number] EducationAnswerDate RecordedGetting School Help NeededNot on file12/25/2022 CommentsNoSex and Gender InformationValueDate RecordedSex Assigned at BirthNot on fileLegal UxhCvhbhl13/04/2012 3:34 AM CSTGender IdentityNot on file Sexual OrientationNot on filedocumented as of this encounter Plan of Treatment Not on file documented as of this encounter Visit Diagnoses Not on filedocumented in this encounter Care Teams Team MemberRelationshipSpecialtyStart DateEnd Date McLdinan, Kyra M [address] [place] [address] PCP - GeneralPhysician Assistant03/31/22 Angel Hollins MD [address] [id number] Neurology07/20/23 Petra Dorado PA [address] [place], [place] [address] Physician AssistantPhysical Medicine and Rehabilitation07/20/23 Angel Hollins MD [address] [id number] Assigned Neuroscience Provider08/03/23 Yves Ballard MD [address] [place] [id number] Assigned Heart and Vascular Provider12/04/23documented as of this encounter
--- OUTSIDE RECORDS SUMMARY | 2025-03-08 14:38 | XMS_ITS | Encounter Summary ---
Author Organization [facility] Address [address] [place] [address] Care Team Providers Care Tow Truck Operator Name Role Phone Kyra Perera Primary Care Provider [phone] Angel Hollins MD Unavailable [phone] Petra Dorado Unavailable [phone] Angel Hollins MD Unavailable Yves Ballard MD Unavailable + [phone] Encounter Details DateTypeDepartmentCare Team (Latest Contact Info)Ftvjjviqfjz03/01/2025Travel Social History Tobacco UseTypesPacks/DayYears UsedDateSmoking Tobacco: NeverSmokeless Tobacco: NeverAlcohol UseStandard Drinks/WeekCommentsNot Currently0 (1 standard drink = 0.6 oz pure alcohol)PHQ-2AnswerDate RecordedPHQ-2 Tpjpv2775Adolescent EducationAnswerDate RecordedGetting School Help NeededNot on file12/25/2022 CommentsNoSex and Gender InformationValueDate RecordedSex Assigned at BirthNot on fileLegal AcaToencd14/04/2012 3:34 AM CSTGender IdentityNot on file Sexual OrientationNot on filedocumented as of this encounter Plan of Treatment Not on file documented as of this encounter Visit Diagnoses Not on filedocumented in this encounter Care Teams Team MemberRelationshipSpecialtyStart DateEnd Date McLdinan, Kyra M [address] [place] [address] PCP - GeneralPhysician Assistant03/31/22 Angel Hollins MD [address] [id number] Neurology07/20/23 Petra Dorado PA [address] [place], [place] [address] Physician AssistantPhysical Medicine and Rehabilitation07/20/23 Angel Hollins MD [address] [id number] Assigned Neuroscience Provider08/03/23 Yves Ballard MD [address] [place] [id number] Assigned Heart and Vascular Provider12/04/23documented as of this encounter
--- OUTSIDE RECORDS SUMMARY | 2025-03-08 14:38 | XMS_ITS | Clinical Summary ---
Author Organization [facility] Address [address] [address] Phone Care Team Providers Care Reconciliation Analyst Name Role Phone Elsewhere, Pcp Primary Care Provider Unavailabl e Allergies Active AllergyReactionsCriticalityNoted DateCommentsAmoxicillinSwelling 12/20/20141669LnkmjzroAzrgzcrjrjs08/10/2015Penicillin MMlrdqeyp79/10/2015Unclear Patient Nxmfvg7812/20/2014 Blood pressure medications Hydrocodone-AcetaminophenNausea and Jxgokcji39/10/2015 Active Problems No known active problems Surgical History SurgeryDateSite/LateralityCommentsCHOLECYSTECTOMY SECTION TONSILLECTOMY Medical History Medical HistoryDateCommentsHTN (hypertension)Anxiety Social History Tobacco UseTypesPacks/DayYears UsedDateSmoking Tobacco: NeverAlcohol UseStandard Drinks/WeekCommentsNo0 (1 standard drink = 0.6 oz pure alcohol)Comments NoSex and Gender InformationValueDate RecordedSex Assigned at BirthNot on file Legal VerYmcyco19/10/2015 11:44 AM CDTGender IdentityNot on fileSexual OrientationNot on file Last Filed Vital Signs Vital SignReadingTime TakenCommentsBlood Njmawhzr184/8512/20/2014 1:30 PM CDT Ztjed975112/20/2014 1:30 PM GPCTkdeqtdyodb98.6 ??C (97.8 ??F)12/20/2014 11:53 AM CDTRespiratory Xzvr811612/20/2014 1:30 PM CDTOxygen Vedgxmpwuo96%12/20/2014 1:30 PM CDTInhaled Oxygen Concentration--Bsmrlh26.7 kg (125 lb)12/20/2014 11:53 AM RMXMrtaah662.5 cm (5' 2)12/20/2014 11:53 AM CDTBody Mass Index22.8612/20/2014 11:53 AM CDT Plan of Treatment [place] [address] Care Teams Team MemberRelationshipSpecialtyStart DateEnd Date Elsewhere, Pcp PCP - Yxhugqh11/10/15
--- OUTSIDE RECORDS SUMMARY | 2025-03-08 14:38 | XMS_ITS | Clinical Summary ---
Author Organization [employer] [facility] [employer] [facility] Address [address] [place] [address] Care Team Providers Care Reactor Fueling Supervisor Name Role Phone Kyra ePrera Primary Care Provider Genaro Leonard MD Unavailable Janay Nunez MD Unavailable [phone] Carolyn Pisano Unavailable Keo Escobar MD Unavailable [phone] Ronaldo Pavon MD Unavailable [phone] Allergies Active AllergyReactionsCriticalityNoted DateCommentsAmlodipinePalpitations 03/03/20205543MqknawloxiygIgdiqbq13/18/2011 Caused myalgias. Caused myalgias. Caused myalgias. Other reaction(s): Myalgia Caused myalgias. Caused myalgias. Caused myalgias. Caused myalgias. ChlorthalidoneShortness Of Hldtbj5103/03/2020ClonidineShortness Of Breath 03/04/20207910CgofqwjzeOylvnboMzc05/01/3329SvcrcmzjwQvdnvxmm15/11/2021 Nose bleeding, tried twice for 3 days and happened both times NitroimidazolesOther - Describe In Comment Field03/20/2013 got sick from it ZvoqswkzssFdavxuiTucu88/29/2708MhshumtidpwNexcmfvbaeu40/01/2012 Other reaction(s): Tachycardia HydrochlorothiazideOther - Describe In Comment Field09/26/2007 ? asthma ? asthma ? asthma UidkzxkuqdOjmutsxagasd64/26/6086EwrjluumqChxieneBvxn84/23/2012Lactose Intolerance-Can't Take02/18/2009 Flu-like symptoms Other reaction(s): Intolerance-Can't Take Flu-like symptoms LatexOther - Describe In Comment Field06/15/2016 Patient is unsure about this allergy LisinoprilChest Pain11/30/2007 Other reaction(s): Chest Pain LorazepamOther - Describe In Comment Field03/26/2010 Pt reports depression Pt reports depression Pt reports depression LosartanShortness Of Breath,LdqmusuPlyd06/21/2011 Noted dyspnea Noted dyspnea SszxnpqcdwJxvfLhv30/02/2012MetoprololShortness Of Breath,ZjbaljiSpve83/21/2011 Possible dyspnea. Possible dyspnea. Possible dyspnea. Possible dyspnea. CwcdtlsjSnjidwqnveyQshu76/12/7196TscdwsddcdJrgtvwmrl69/06/2023 vertigo KeofrdmsybmUxtrefvnczHtk94/12/2007 Other reaction(s): Angioedema, Angioedema GcougfazijDotyqzsXggm02/29/4960IaucaiwvwffOicejatInmg96/29/2024Propranolol Ghzjqvgh15/24/6936XqpsjyftufgtEegkwxx52/18/2011 Caused myalgias. Caused myalgias. Caused myalgias. Other reaction(s): Myalgia Caused myalgias. Caused myalgias. Caused myalgias. Caused myalgias. Shellfish Containing WurnyuwkIocjhopehqXjqn94/01/2011 Had severe pain and swelling after lobster Other reaction(s): Angioedema Had severe pain and swelling after lobster Shellfish GgvnqfvYablqxinjhMdwt29/01/2011 Lobster: ??Angioedema and severe stomach pain; has to go to ER when she ate lobster Had severe pain and swelling after lobster Lobster: ??Angioedema and severe stomach pain; has to go to ER when she ate lobster Sulfa (Sulfonamide Antibiotics)JvodjFokh88/12/4791FjrzhsczhBjqlhzwPfrm76/20/2012 Hydrocodone-AcetaminophenNausea And Hdavomwf00/19/2012EzetimibeOther - Describe In Comment Field05/24/2024 Pins and needles feeling all over her body, swollen throat, muscle pain Medications MedicationSigDispense QuantityRefillsLast FilledStart DateEnd DateStatus aspirin (ECOTRIN) 81 mg enteric coated tablet 81 mg once daily with a meal. Xechf129Active meclizine (ANTIVERT) 25 mg tablet Indications:VertigoTake 1 [...] taking differently: 12.5 mgOral BID, Reported on 03/03/2025 hydrocortisone (ANUSOL-HC) 2.5 % rectal cream Indications:Hemorrhoids, [...] mouth once daily in the morning. 5Active busPIRone (BUSPAR) 5 mg tablet Indications:AnxietyTake 0.5 Tablets (2.5 mg) by mouth two times daily. 60 Tablet 5Active isosorbide mononitrate (IMDUR) 30 mg extended release tablet 24 Hour Indications:Resistant hypertension,Cerebrovascular accident (CVA), unspecified mechanism (HC)Take 0.5 Tablets (15 mg) by mouth once daily. 30 Tablet Discontinued(*Patient states no longer taking) Active Problems ProblemNoted DateDiagnosed DateParoxysmal nyntaaxlfrt55/04/2025Essential vobrzvborxvv24/23/2025Hemiparesis affecting dominant side as late effect of cerebrovascular accident (CVA)03/25/2024Exudative age-related macular degeneration, unspecified laterality, unspecified stage4Cardiomyopathy, unspecified type03/18/2022aroxysmal SVT (supraventricular tachycardia) 04/07/2021LVH (left ventricular hypertrophy)01/26/2021Mast cell activation efbhmotc16/09/2021t risk for ojxkjluoczrbad62/06/2013 Overview (02/15/2013): + TPO: currently euthyroid The [...] to Patient. C) [email or web address].org Screen for colon zxwgek9904/20/2012 Overview (04/20/2012): Colonoscopy 04/2012 normal repeat in 10 years Anxiety state, icyppanpmjj54/23/2012Lipid emyflscn30/18/2011Sphincter of Oddi eduimzpxmhh54/09/2011Esophageal lbazja7903/22/2010 Overview (03/30/2010): EGD 03/2009 Reactive gastropathy Degeneration of cervical intervertebral disc06/25/2008Raynaud's syndrome 01/02/2007Hypertension Resolved Problems ProblemNoted DateDiagnosed DateResolved DateStage 3 chronic kidney disease /6028Obuqbekghgbfql94/31/202001/2Closed Head Injury // Overview (06/16/2008): Fell down stairs, didn't miss work, MRI normal except for small vessel white matter changes, now with headaches and fatigue (06/15/2008) Plantar fascial eklbtsuoubbz81/30/4Rosacea1/ Unspecified essential eqvnnwxlgjkb80/28/2024 Encounters DateTypeDepartmentCare FoaoSbwdfzddfch40/22/2025 2:00 PM CSTOffice Visit [facility] [address] [place] [address] Kyra Perera PA Follow Up (Not feeling well at all, has heart monitor on and now had pain in R abd area and stomach, gets sick when she eats, BP is still very high)03/03/2025 Chtcat5702/25/2025 11:30 AM CSTProcedure Only [facility] [address] [place] [address] Marizol Walton L Ac Qhujhrzfvci32/16/8966Ahsjbv49/12/2025Orders Only [facility] Scanner 1 scan: (1-Ord) [facility], XR CHEST 2V, 1:00 PM CSTOffice Visit [facility] [address] [place] [address] Kyra Perera PA ER Follow up (Elevated BP and having episodes with her heart, lighheaded) 02/19/2025 10:00 AM CSTProcedure Only [facility] [address] [place] [address] Marizol Walton L Ac Fvzjjvgwuva94/10/6734Hlssgr17/05/2025Telephone [address] [address] Kyra Perera PA Referral (Digital Sales Planner at [place] with new diagnosis)02/14/2025Telephone [address] [address] Kyra Perera PA Questions (Referral)02/10/2025Telephone [address] [address] Kyra Perera PA Appointment Daddhcn4602/10/2025Telephone [address] [address] Kyra Perera PA General Illness/Other01/29/2025 11:30 AM CSTOffice Visit [address] [address] Kyra Perera PA Follow Up (Holding a few meds due to side effects - would like to discuss); Referral (allergy)01/29/20253131Goplgs87/18/2025Telephone [facility] [address] [facility] [address] [place] [address] O'Kirsty Ernst PA Medication Ogjuvkpxgl94/11/2025Telephone [facility] [address] [facility] [address] [place] [address] Aaron'Kirsty Ernst PA Allergies (Allergic reaction to Diltiazem)01/20/2025 2:30 PM CSTOffice Visit [facility] [address] [facility] [address] [place] [address] Aaron'Kirsty Ernst PA Follow Up (REFERRED BACK TO CARDIOLOGY [facility] BY PCP FOR HTN- PCP CLINIC IS SUPPOSED TO BE ENTERING CORRECT FOLLOW UP ORDER [id number] PT states feeling ok, but earlier today she has felt her BP spike and palpitations. She was also feeling dizzy and lightheaded. She is also feeling a chest sensation now.She is also SOB and has head pressure. )01/20/2025 9:15 AM CSTOffice Visit [facility] [address] [facility] [address] [place] [address] Ronaldo Pavon MD Consult (Abnormal THYROPEROXIDASE ANTIBODY)01/20/2025Telephone [facility] [address] [facility] [address] [place] [address] O'Kirsty Ernst PA Medication Vhteupjhko31/10/8732Rsmcnw81/06/2025 11:00 AM CSTOffice Visit [facility] [address] [place] [address] Keo Escobar MD Musculoskeletal Problem (Follow up neck pain )01/15/2025 8:40 AM CSTOffice Visit [facility] [address] [place] [address] Kelli Bartlett MD Shortness Of Breath; Gi Osaqncx6901/15/20255415Mzrzuq29/31/2025Orders Only [facility] [address] [place] [address] Janay Nunez MD 1 scan: (1-Ord) [facility] RENAL DOPP, 51Nurse Triage [facility] [address] [place] [address] Kyra Perera PA Breathing Rrtxxow4201/10/2025Telephone [facility] [address] [place] [address] Kyra Perera PA Crhmerypu34/30/2025Telephone [facility] [address] [place] [phone] Janay Nunez MD Results (Diagnostic Imaging Report for 01/09/25 Bilateral Renal Artery Duplex Ultrasound)12/31/2024 11:00 AM CDTProcedure Only [facility] [address] [place] [address] Marizol Walton L Ac Yhmzcqdfhux48/21/3128Cffyfw18/15/2025 1:00 PM CDTOffice Visit [address] [address] Kyra Perera PA Follow Up (On everything, dizziness, thyroid, BP etc); Neck Pain/problem (Neck pain on both sides, worse in the morning. Very painful)12/25/2024Travel 12/23/2024 1:30 PM CDTOrders Only [address] [address] [place] Lab12/23/20245984Tigxoz75/13/2025Telephone [facility] [address] [place] [address] Marizol Walton L Ac Ulxfssbster07/09/2025Telephone [facility] Prescription Assistance Program [email or web address] [address] [place] [address] Genaro Isaac, [facility] Medication Management (Prescription Assistance - [employer])12/12/2024 9:30 AM CDT Office Visit [facility] [address] [place] [address] Janay Nunez MD 12/10/2024 12:10 PM CDTOffice Visit [facility] [address] [place] [address] Kyra Perera PA ER Follow up (Go over lab results, discuss cyst that is growing, BP, Thyroid) 12/09/2024 11:00 AM CDTOffice Visit [facility] [address] [place] [address] Marizol Walton L Ac Tfyztdcluuq89/29/2025Travelfrom Last 3 Months Immunizations ImmunizationAdministration DatesNext DueCOVID-19 vaccine (Amna-J&J) REBA HOPKINS 05/23/2020Td, Preservative Free (age >= 7 Years)11/08/2017Tdap05/30/2007 Family History Medical HistoryRelationNameCommentsHeart DiseaseBrother 1OsteoarthritisBrother 1 back and legOtherBrother 1pulmonary hypertensionCancer-prostateBrother 2Other Brother 3etoh but now dry, htnGood HealthBrother 4Heart DiseaseBrother 5Heart DiseaseBrother 6HyperlipidemiaBrother 5TfmzjHhacoeo62 [place], liver etoh Cancer-breastMaternal RxrpQpfnfNzwnydm97, heart and dmCancer-breastPaternal Aunt Cancer-breastPaternal GrandmotherLung cancerSister 1Good HealthSister 2possible brain aneurysm, htnCancer-ovarianNo Family HistoryRelationNameStatusComments Brother 1AliveBrother 2DeceasedBrother 3Brother 4Brother 5Brother 6Brother 7 FatherDeceasedMaternal AuntMaternal GrandfatherMotherDeceasedPaternal Aunt Paternal GrandmotherSister 1DeceasedSister 2 Social History Tobacco UseTypesPacks/DayYears UsedDateSmoking Tobacco: NeverSmokeless Tobacco: Never Tobacco Cessation:Counseling Given: Yes Alcohol UseStandard Drinks/WeekCommentsNo0 (1 standard drink = 0.6 oz pure alcohol)does not drinkPHQ-2AnswerDate RecordedPHQ-2 TOTAL SOGJR115Social ConnectionsAnswerDate RecordedDo you often feel lonely or isolated from those around you?lcohol UseAnswerDate RecordedHow often do you have a drink containing alcohol?verage Number of DrinksNot on file 01/20/2025Frequency of Binge DrinkingNot on file01/20/2025Financial Resource StrainAnswerDate RecordedDifficulty of Paying Living Ppoazfid391/04/2025 Difficulty of Paying Living ExpensesNot on file04/16/2024Food [...] InformationValueDate RecordedSex Assigned at BirthNot on fileLegal TwgBzgqoy56/14/2013 5:26 AM CSTGender IdentityNot on fileSexual OrientationNot on file Last Filed Vital Signs Vital SignReadingTime TakenCommentsBlood Uhkphuqe179/8403/03/2025 2:13 PM BUTTON INSPECTOR Klutm978403/03/2025 2:13 PM FRLDmkskeetkjw07.5 ??C (97.7 ??F)01/16/2025 11:02 AM CSTRespiratory Bqfk125107/03/2024 3:45 PM CDTOxygen Rggmlwppxy38%01/29/2025 11:40 AM CSTInhaled Oxygen Concentration--Itngtr72.7 kg (136 lb)03/03/2025 2:13 PM BUTTON INSPECTOR Vmqyqi568.9 cm (5' 1)01/20/2025 2:39 PM CSTBody Mass Index25.7103/22/2024 2:39 PM BUTTON INSPECTOR Plan of Treatment DateTypeDepartmentCare Team (Latest Contact Info)Yaotgwjqgln53/30/2025 8:15 AM CSTAncillary Procedure [facility] [address] [place] [address] 03/12/2025 10:30 AM CSTOrders Only [address] [place] [address] [place] 03/19/2025 8:15 AM CSTOrders Only [address] [place] [address] [place] 03/20/2025 11:00 AM CSTProcedure Only [facility] [address] [place] [address] Marizol Walton L Ac [address] [facility] [place] [address] 03/26/2025 11:10 AM CSTOffice Visit [facility] [address] [place] [facility] [place] [address] Kyra Perera PA [address] [place] [address] 03/31/2025 3:30 PM CSTTelemedicine [facility] [address] [place] [address] Janay Nunez MD [address] [address] 04/02/2025 10:40 AM CSTOffice Visit [facility] [address] [place] [address] Keo Escobar MD [address] [place] [address] 04/24/2025 11:00 AM CSTProcedure Only [facility] [address] [place] [address] Marizol Walton L Ac [address] [place] [address] Health MaintenanceDue DateLast DoneCommentsPneumococcal series for age 50+ (1 of 2 - PCV)1969RSV vaccine for adults or (1 - Risk 50-74 years 1- dose series)2000Zoster (shingles) series for age 50+ (1 of 2)2000 DEXA/DXA scan for age 65+06/21/2015COVID-19 vaccine series ( season) /06/2021, 05/23/2020Influenza Vaccine (#1)2024Depression screening for age 12+, 09/08/2023, 01/21/2022, Additional history existsMedicare Wellness for age 65+, 01/21/2022, 01/19/2021, Additional history existsMammogram for age 40-11/26/2024, 10/09/2023, 12/08/2021, Additional history existsBMI (ht and wt on same day) for age 18+, 12/12/2024, 11/15/2024, Additional history existsTetanus /, 05/30/2007Lipids for age 45-, 06/24/2024, 05/16/2024, Additional history exists Colonoscopy through age , 10/10/2022, 10/10/2022, Additional history existsHepatitis C screening for age 18-04Iscmpxauz44/29/2016 Hepatitis B series for 19+Aged OutNo longer eligible based on patient's age to complete this topic Procedures Procedure NamePriorityDate/TimeAssociated DiagnosisCommentsACUPUNCTURE PLAN OF JAIHOmkdpnq75/16/2025 11:18 AM BUTTON INSPECTOR Chronic neck pain Chronic shoulder pain, unspecified laterality SCAN-RADIOLOGY INELNS4602/21/2025 12:00 AM BUTTON INSPECTOR ACUPUNCTURE PLAN OF JQRPLtpjpyc79/10/2025 10:04 AM BUTTON INSPECTOR Chronic neck pain Chronic shoulder pain, unspecified laterality SCAN CORRESP-EKG DQRQTJU0401/23/2025 7:11 AM BUTTON INSPECTOR EKG 12 TTTENdhzq18/10/2025 3:41 PM BUTTON INSPECTOR HTN (hypertension) CORTISOL JELOAJsmwpku37/10/2025 10:10 AM BUTTON INSPECTOR Endocrine hypertension RENIN ACTIVITY JYPURUycekcy67/10/2025 10:10 AM BUTTON INSPECTOR Endocrine hypertension DHEA-SULFATE (DHEA-S)Kdwwman5301/20/2025 10:10 AM BUTTON INSPECTOR Endocrine hypertension METANEPHRINES FRACTIONATED PLASMA XTHVWtsugeq58/10/2025 10:10 AM BUTTON INSPECTOR Endocrine hypertension ADRENOCORTICOTROPIC HORMONE (ACTH) LOOBOOAksampu73/10/2025 10:10 AM BUTTON INSPECTOR Endocrine hypertension ALDOSTERONE LC/MS YJWWCAgyuzvl07/10/2025 10:10 AM BUTTON INSPECTOR Endocrine hypertension US RENAL WITH DUPLEX CPCSZSSUZtjvkit26/29/2025 12:00 AM CDT Hypertension ACUPUNCTURE PLAN OF OZZSDftgvua04/21/2025 11:02 AM CDT Chronic neck pain Chronic shoulder pain, unspecified laterality T4,GMUMJiiytqk64/13/2025 1:23 PM CDT Elevated TSH Subacute thyroiditis T3,RHLZIaoycub12/13/2025 1:23 PM CDT Elevated TSH Subacute thyroiditis TDRIoeivnq19/13/2025 1:23 PM CDT Elevated TSH Subacute thyroiditis THYROPEROXIDASE IDGOEWYYIoiajnc42/30/2025 1:02 PM CDT Elevated TSH LIPID PANEL W REFLEX MEASURED PMRBsvirmq02/16/2025 9:21 AM CDT Cerebrovascular accident (CVA), unspecified mechanism (HC) Hyperlipidemia, unspecified hyperlipidemia type XR MAMMO ALEENA BILAT GJLRFWDqlcsoa97/16/2025 8:16 AM CDT Visit for screening mammogram COLONOSCOPY MITJMCWLMTxkydbw15/31/2023 12:00 AM CDT Screen for colon cancer ANTI TFCQkbnyzu98/29/2016 10:00 AM BUTTON INSPECTOR Need for hepatitis C screening test from Last 3 Months or Most Recently Relevant to Health Maintenance Results * SCAN-RADIOLOGY REPORT (02/21/2025 12:00 AM BUTTON INSPECTOR)Anatomical RegionLaterality ModalityOther Narrative Authorizing ProviderResult TypeResult StatusScannerOTHERFinal Result * SCAN CORRESP-EKG RESULTS (01/23/2025 7:11 AM BUTTON INSPECTOR) Narrative 01/23/2025 7:11 AM BUTTON INSPECTOR Ordered by an unspecified provider. Authorizing ProviderResult TypeResult StatusOther Clinical StaffOTHERFinal Result * EKG 12 LEAD (01/20/2025 3:41 PM BUTTON INSPECTOR)ComponentValueRef RangeTest MethodAnalysis TimePerformed AtPathologist SignatureInterpretationNormal sinus rhythm Normal ECG When compared with ECG of 13-Oct-2023 11:53, No significant change was found Ventricular Qbxh28AZKWchlja Mfmc01JZYZ-G Hpjvnyha191dvAYD Qujqkrzk10rhGM836ezIGe 405msP Vkuv29wupvfjuA Kayc61ohwefefF Rfny56iwjauhwLexzjagb (Source)Anatomical Location / LateralityCollection Method / VolumeCollection TimeReceived Time 01/20/2025 3:41 PM CST01/20/2025 5:22 PM BUTTON INSPECTOR Narrative Authorizing ProviderResult TypeResult StatusKirsty Luevano Lavelle PAEKG ORD Final Result * CORTISOL TOTAL (01/20/2025 10:10 AM BUTTON INSPECTOR)ComponentValueRef RangeTest Method Analysis TimePerformed AtPathologist SignatureCORTISOL, TOTAL8.2mcg/dL 01/21/2025 6:37 AM CSTQUEST DIAGNOSTICSComment: The Cortisol result may be decreased on average 10-20% relative to results previously obtained with this method due to a recent quality improvement made in October 2024 by the reagent superintendent drivers. Reference Range: For 8 a.m.(7-9 a.m.) Specimen: 4.0-22.0 Reference Range: For 4 p.m.(3-5 p.m.) Specimen: 3.0-17.0 ??* Please interpret above results accordingly * Specimen (Source)Anatomical Location / LateralityCollection Method / Volume Collection TimeReceived TimeBloodBLOOD SPECIMEN / UnknownQuest Collect / Unknown 01/20/2025 10:10 AM CST01/20/2025 10:15 AM BUTTON INSPECTOR Narrative Authorizing ProviderResult TypeResult StatusAkuffo Quarde MDCHEMISTRYFinal ResultPerforming OrganizationAddressCity/State/ZIP CodePhone Number [employer] [facility] [address] [place] [address], * METANEPHRINES FRACTIONATED PLASMA FREE (01/20/2025 10:10 AM BUTTON INSPECTOR)ComponentValue Ref RangeTest MethodAnalysis TimePerformed AtPathologist Signature NORMETANEPHRINE, JZID001< OR = 148 pg/mL01/26/2025 2:41 PM CSTQUEST DIAGNOSTICSComment: This test was developed and its analytical performance characteristics have been determined by [employer]. It has not been cleared or approved by the FDA. This assay has been validated pursuant to the CLIA regulations and is used for clinical purposes. METANEPHRINE, FREE41< OR = 57 pg/mL01/26/2025 2:41 PM CSTQUEST DIAGNOSTICS Comment: This test was developed and its analytical performance characteristics have been determined by [employer]. It has not been cleared or approved [...] 2008. For additional information, please refer to http://education.LocalBonus/faq/MetFractFree (This link is being provided for informational/educational purposes only.) This test was developed and its analytical performance characteristics have been determined by [employer]. It has not been cleared or approved by the FDA. This assay has been validated pursuant to the CLIA regulations and is used for clinical purposes. Specimen (Source)Anatomical Location / LateralityCollection Method / Volume Collection TimeReceived TimeBloodBLOOD SPECIMEN / UnknownQuest Collect / Unknown 01/20/2025 10:10 AM CST01/20/2025 10:15 AM BUTTON INSPECTOR Narrative Authorizing ProviderResult TypeResult StatusAkuffo Quarde MDSEND OUTSFinal ResultPerforming OrganizationAddressCity/State/ZIP CodePhone Number [employer] [facility] [address] [place] [address], * ADRENOCORTICOTROPIC HORMONE (ACTH) PLASMA (01/20/2025 10:10 AM BUTTON INSPECTOR)Component ValueRef RangeTest MethodAnalysis TimePerformed AtPathologist SignatureACTH, YUEDTF400 - 50 pg/mL01/23/2025 4:39 PM CSTQUEST DIAGNOSTICSComment: Reference range applies only to the specimens collected between 7am-10am. Specimen (Source)Anatomical Location / LateralityCollection Method / Volume Collection TimeReceived TimeBloodBLOOD SPECIMEN / UnknownQuest Collect / Unknown 01/20/2025 10:10 AM CST01/20/2025 10:15 AM BUTTON INSPECTOR Narrative Authorizing ProviderResult TypeResult StatusAkuffo Quarde MDSEND OUTSFinal ResultPerforming OrganizationAddEncompass Health Rehabilitation Hospital of [place]/State/ZIP CodePhone Number [employer] [address] [phone], * ALDOSTERONE LC/MS BLOOD (01/20/2025 10:10 AM BUTTON INSPECTOR)ComponentValueRef RangeTest MethodAnalysis TimePerformed AtPathologist SignatureALDOSTERONE, LC/MS/MS7 ng/dL01/24/2025 10:21 AM CSTQUEST DIAGNOSTICSComment: Adult Reference Ranges for Aldosterone: Upright 8:00-10:00 am < or = 28 ng/dL Upright 4:00-6:00 pm < or = 21 ng/dL ?? Supine ??8:00-10:00 am ?3-16 ng/dL This test was developed and its analytical performance characteristics have been determined by [employer]. It has not been cleared or approved by the FDA. This assay has been validated pursuant to the CLIA regulations and is used for clinical purposes. Specimen (Source)Anatomical Location / LateralityCollection Method / Volume Collection TimeReceived TimeBloodBLOOD SPECIMEN / UnknownQuest Collect / Unknown 01/20/2025 10:10 AM CST01/20/2025 10:15 AM BUTTON INSPECTOR Narrative Authorizing ProviderResult TypeResult StatusAkuffo Quarde [facility] CITYEND OUTSSmallpox Hospitalal ResultPerdepartment of veterans affairs medical center-[facility] Medical CenterAddEncompass Health [facility]/ZIP CodePhone Number [employer] [address] [address], * RENIN ACTIVITY BLOOD (01/20/2025 10:10 AM BUTTON INSPECTOR)ComponentValueRef RangeTest MethodAnalysis TimePerformed AtPathologist SignaturePLASMA RENIN ACTIVITY, LC/MS/MS0.690.25 - 5.82 ng/mL/h103/27/2024 1:25 PM CSTQUEST DIAGNOSTICSComment: This test was developed and its analytical performance characteristics have been determined by [employer]. It has not been cleared or approved by the FDA. This assay has been validated pursuant to the CLIA regulations and is used for clinical purposes. Specimen (Source)Anatomical Location / LateralityCollection Method / Volume Collection TimeReceived TimeBloodBLOOD SPECIMEN / UnknownQuest Collect / Unknown 01/20/2025 10:10 AM CST01/20/2025 10:15 AM BUTTON INSPECTOR Narrative Authorizing ProviderResult TypeResult StatusAkuffo Quarde MDSEND OUTSFinal ResultPerforming OrganizationAddressCity/State/ZIP CodePhone Number [employer] [address] [address], * DHEA-SULFATE (DHEA-S) (01/20/2025 10:10 AM BUTTON INSPECTOR)ComponentValueRef RangeTest MethodAnalysis TimePerformed AtPathologist SignatureDHEA EGLLYQC064 - 157 mcg/dL01/21/2025 5:51 AM CSTQUEST DIAGNOSTICSSpecimen (Source)Anatomical Location / LateralityCollection Method / VolumeCollection TimeReceived Time BloodBLOOD SPECIMEN / UnknownQuest Collect / Ywngfjx2901/20/2025 10:10 AM BUTTON INSPECTOR 01/20/2025 10:15 AM BUTTON INSPECTOR Narrative Authorizing ProviderResult TypeResult StatusAkuffo Quarde MDSEND OUTSFinal ResultPerforming OrganizationAddressCity/State/ZIP CodePhone Number [facility] [address] [address], * US RENAL W DUPLEX COMPLETE (01/08/2025 12:00 AM CDT)Anatomical Region LateralityModalityAbdomen, KIDNEYS, KIDNEY L, KIDNEY RUltrasound Narrative Authorizing ProviderResult TypeResult StatusJanay Nunez MDUSFinal Result * TSH (12/23/2024 1:23 PM CDT)ComponentValueRef RangeTest MethodAnalysis Time Performed AtPathologist SignatureTSH1.610.40 - 4.50 mIU/L1 4:41 AM CDTQUEST DIAGNOSTICSSpecimen (Source)Anatomical Location / Laterality Collection Method / VolumeCollection TimeReceived TimeBloodBLOOD SPECIMEN / UnknownQuest Collect / Awyqzbb9812/23/2024 1:23 PM CDT1 1:23 PM CDT Narrative Authorizing ProviderResult TypeResult StatusBridgeflavio Perera PACHEMISTRY Final ResultPerforming OrganizationAddressty/State/ZIP CodePhone Number [facility] [address] [place] [place] [address], * T3,FREE (12/23/2024 1:23 PM CDT)ComponentValueRef RangeTest MethodAnalysis TimePerformed AtPathologist SignatureT3, FREE2.82.3 - 4.2 pg/mL12/24/2024 4:41 AM CDTQUEST DIAGNOSTICSSpecimen (Source)Anatomical Location / Laterality Collection Method / VolumeCollection TimeReceived TimeBloodBLOOD SPECIMEN / UnknownQuest Collect / Jlmiinn9812/23/2024 1:23 PM CDT1 1:23 PM CDT Narrative Authorizing ProviderResult TypeResult StatusBridgeflavio Perera PACHEMISTRY Final ResultPerforming OrganizationAddressCity/State/ZIP CodePhone Number [facility] [address] [address], * T4,FREE (12/23/2024 1:23 PM CDT)ComponentValueRef RangeTest MethodAnalysis TimePerformed AtPathologist SignatureT4, FREE1.20.8 - 1.8 ng/dL12/24/2024 4:41 AM CDTQUEST DIAGNOSTICSSpecimen (Source)Anatomical Location / Laterality Collection Method / VolumeCollection TimeReceived TimeBloodBLOOD SPECIMEN / UnknownQuest Collect / Ormupwc9812/23/2024 1:23 PM CDT1 1:23 PM CDT Narrative Authorizing ProviderResult TypeResult StatusBridgeflavio Perera PACHEMISTRY Final ResultPerforming OrganizationAddressty/State/ZIP CodePhone Number [facility] [address] [address], * (ABNORMAL) THYROPEROXIDASE ANTIBODY (12/10/2024 1:02 PM CDT)ComponentValueRef RangeTest MethodAnalysis TimePerformed AtPathologist SignatureTHYROID PEROXIDASE NKWOIOCJXH69(H)<9 IU/mL12/11/2024 4:00 PM CDTQUEST DIAGNOSTICS Specimen (Source)Anatomical Location / LateralityCollection Method / Volume Collection TimeReceived TimeBloodBLOOD SPECIMEN / UnknownQuest Collect / Kjwhqov4012/10/2024 1:02 PM CDT12/10/2024 1:02 PM CDT Narrative [facility] - 12/11/2024 4:00 PM CDT FASTING:UNKNOWN FASTING: UNKNOWN Authorizing ProviderResult TypeResult StatusBridget Omaira Perera PASEND OUTS Final ResultPerforming OrganizationAddressCity/State/ZIP CodePhone Number [facility] [place] [place] [address], * (ABNORMAL) LIPID PANEL W REFLEX MEASURED LDL (11/26/2024 9:21 AM CDT)Component ValueRef RangeTest MethodAnalysis TimePerformed AtPathologist Signature CHOLESTEROL, CIQPG576(H)<200 mg/dL11/27/2024 4:19 AM [facility] MJSEMDCGLCICM358(H)<150 mg/dL11/27/2024 4:19 AM [facility]olverTRateElert DIAGNOSTICSComment: If a non-fasting specimen was collected, consider repeat triglyceride testing on a fasting specimen if clinically indicated. Rogers et al. J. of Clin. Lipidol. 2015;9:129-169. HDL CWNUXTXUQST32> OR = 50 mg/dL11/27/2024 4:19 AM TravolverTQUEST DIAGNOSTICSNON HDL JFVQGYSQLET292(H)<130 mg/dL (calc)11/27/2024 4:19 AM [facility] Comment: Non-HDL level > or = [...] therapeutic option. CHOL/HDLC RATIO5.2(H)<5.0 (calc)11/27/2024 4:19 AM [facility] LDL-TYHENTEQJQE119(H)mg/dL (calc)11/27/2024 4:19 AM CDTQUEST DIAGNOSTICSComment: Reference range: <100 Desirable range <100 mg/dL for primary prevention; <70 mg/dL for patients with CHD or diabetic patients with > or = 2 CHD risk factors. LDL-C is now calculated using the Benji calculation, which is a validated novel method providing better accuracy than the Friedewald equation in the estimation of LDL-C. Andrea GUAJARDO et al. TEODORO. 2013;310(56): 6961-8929 (http://education.ROCKI/faq/ZKS088) Specimen (Source)Anatomical Location / LateralityCollection Method / Volume Collection TimeReceived TimeBloodBLOOD SPECIMEN / UnknownQuest Collect / Unknown 11/26/2024 9:21 AM CDT11/26/2024 9:21 AM CDT Narrative [facility] - 11/27/2024 4:19 AM CDT FASTING:UNKNOWN FASTING: UNKNOWN Authorizing ProviderResult TypeResult StatusBridget Omaira Perera PACHEMISTRY Final ResultPerforming OrganizationAddressCity/State/ZIP CodePhone Number [facility] [place] [address] [address], * XR MAMMO ALEENA BILAT SCREEN (11/26/2024 [...] For Patients: As a result of the 21st Century Cures Act, medical imaging exams and procedure reports are released immediately into your electronic medical record. You may view this report before your referring provider. If you have questions, please contact your health care provider. XR MAMMO ALEENA BILAT SCREEN [[id number]] CLINICAL HISTORY: ??This is an asymptomatic 74 y.o. patient. INDICATION FOR EXAM: Mammogram Screening. TECHNIQUE: CC and MLO views were obtained. ??This study was evaluated with the assistance of Computer-Aided Detection. Breast Tomosynthesis was used in interpretation. COMPARISON FILM: Yes 10/09/23 [facility] 12/08/21 [facility] FINDINGS: ??There are scattered areas of fibroglandular density. There are no dominant masses, suspicious micro calcifications or areas of architectural distortion. Authorizing ProviderResult TypeResult StatusKyra Perera PAMAMMOFinal Result * COLONOSCOPY SCREENING (10/10/2022 12:00 AM CDT) Narrative Authorizing ProviderResult TypeResult StatusAndrea Devi MDGI PROCEDURE ORDFinal Result * ANTI HCV [80991.2] (02/09/2016 10:00 AM BUTTON INSPECTOR)ComponentValueRef RangeTest Method Analysis TimePerformed AtPathologist SignatureHEPATITIS C ANTIBODYNon-Reactive Non-Eitytgoj42/29/2016 5:42 PM [facility]STW[facility] Specimen (Source)Anatomical Location / LateralityCollection Method / Volume Collection TimeReceived TimeBloodBLOOD SPECIMEN / UnknownVenipuncture / Dgcavlg7102/09/2016 10:00 AM CST02/09/2016 10:01 AM BUTTON INSPECTOR Narrative [facility] - 02/09/2016 5:42 PM BUTTON INSPECTOR Antibodies to HCV not detected; does not exclude the possibility of exposure to HCV. Authorizing ProviderResult TypeResult StatusKyra Perera PASEND OUTS Final ResultPerforming OrganizationAddressCity/State/ZIP CodePhone Number [facility] [address] [place] [address], from Last 3 Months or Most Recently Relevant to Health Maintenance Insurance MemberSubscriberPlan / Payer (Effective 2009-Present)Name:Miya Restrepo Relation to Subscriber:SelfName:Miya Restrepo Payer ID:Not on file Group ID:Not on file Type:Not on file [id number] Address: [address] [place] [address] * Guarantor: Miya Restrepo TypeRelation to PatientDate of BirthPhone Billing [id number]/10/1951 [address] [place] [address] Advance Directives * Full Code (Latest Code [...] Team MemberRelationshipSpecialtyStart DateEnd Date Kyra Perera PA [facility] [place] [address] PCP - General06/16/08 Genaro Leonard MD [address] [facility] [address] [address] Cardiology - Electrophysiology05/30/22 Janay Nunez MD [address] [address] Cardiology - Interventional09/21/22 Carolyn Pisano PA [address] [address] Physician Assistant09/21/22 Keo Escobar MD [address] [place] [address] Sports Medicine - Family Medicine09/21/22 [place] [address] [place] [address] HrokwbyzknzyrCoykamnbdmjzn38/10/25
--- OUTSIDE RECORDS SUMMARY | 2025-03-08 14:39 | XMS_ITS | Clinical Summary ---
Author Organization [facility] Address [address] [place] [address] Care Team Providers Care Assembler Name Role Phone Gwensofi Kyra Bell Primary Care Provider Angel Hollins MD Unavailable Petra Dorado Unavailable [phone] Angel Hollins MD Unavailable Yves Ballard MD Unavailable Allergies Active AllergyReactionsCriticalityNoted DateCommentsAce Aufhiyqdka92/03/2025 Okwaikxpyqmgc273515UlequtgngqWplcrgndzfqqFggn60/22/2020AtorvastatinMuscle Pain (Myalgia)High10/28/2010 Other reaction(s): Myalgia Caused myalgias. Caused myalgias. Caused myalgias. Caused myalgias. Other reaction(s): Myalgia Caused myalgias. Caused myalgias. Caused myalgias. Caused myalgias. ChlorthalidoneShortness Of HfnhyaZavt51/22/2020 Other Reaction(s): Dyspnea ClonidineShortness Of Breath,Difficulty kczldtifbGqvb11/23/2020DiltiazemAnxiety High05/12/2011DoxazosinOther (See Comments)High05/21/2020 Bleeding Other Reaction(s): Bleeding Nose bleeding, tried twice for 3 days and happened both times EzetimibeOther (See Comments)05/24/2024 Pins and needles feeling all over her body, swollen throat, muscle pain GabapentinShortness Of AbgxemCozq57/29/1206HwsznpldfdqAfpr42/01/2012 Other reaction(s): Tachycardia Other Reaction(s): Tachycardia HydrochlorothiazideOther (See Comments),Difficulty vfthkpvdvAuaf23/16/2008 ? asthma ? asthma ? asthma ? asthma HydrocodoneNausea and GhkuvczyDnny42/16/2024Hydrocodone-AcetaminophenNausea and Dakiqecm48/19/0833TawmhqhponDsfhxffmryfpJws29/26/2021Isosorbide NitrateHeadache 01/27/2024LabetalolShortness Of Breath,Difficulty dmcehsyfgXnbe78/23/2012Lactose 02/18/2009 Other reaction(s): Intolerance-Can't Take Flu-like symptoms Other Reaction(s): Intolerance-Can't Take Flu-like symptoms Other reaction(s): Intolerance-Can't Take Flu-like symptoms LatexOther (See Comments)06/15/20163879KjfjsrpgbtQkwh70/19/2008 Other reaction(s): Chest Pain Other Reaction(s): Chest Pain LorazepamOther (See Comments)High03/26/2010 Pt reports depression Pt reports depression Pt reports depression Pt reports depression Other Reaction(s): Depression LosartanShortness Of DyqnqtOlfr38/21/2011 Noted dyspnea Noted dyspnea Noted dyspnea Other Reaction(s): Dyspnea PregabalinShortness Of KynomnOire87/29/8500JmegfvwanwPrdvQvtb43/02/2012 MetoprololOther (See Comments)Rnmlri8212/01/2010 Reaction to SUCCINATE was described by patient as throat swelling that she treated at home with ??benadryl and did not seek medical care (Tolerating metoprolol tartrate as of 10/28/24) QsmranhebyjieAapujHjik15/16/2024Milk (Cow)High09/26/2023MorphineAnaphylaxis, Hives,Nausea and XygrudkaXwdc60/02/9975YetjktlbmjDogpnkrld31/06/2023 vertigo Other (Do Not Use)High09/26/2023Other Drug Allergy (See Comments)Other (See Comments)03/20/2013 got sick from it PenicillinsAngioedema,BzyzwrcwNqas24/02/2005 Other reaction(s): Angioedema, Angioedema Other Reaction(s): Throat Closing, throat swells PropafenoneShortness Of VuiyhkZsno17/29/2024PropranololAnxiety,HeadacheLow 01/03/2023RosuvastatinMuscle Pain (Myalgia)High10/28/2010 Other reaction(s): Myalgia Caused myalgias. Caused myalgias. Caused myalgias. Caused myalgias. Other reaction(s): Myalgia Caused myalgias. Caused myalgias. Caused myalgias. Caused myalgias. Shellfish OdkppbuIqapeatpyxEjou66/01/2011 Had severe pain and swelling after lobster Other reaction(s): Angioedema Had severe pain and swelling after lobster Shellfish Protein-Containing Drug OffjlmudSelbgxcmlqZvih35/01/2011 Other reaction(s): Angioedema Had severe pain and [...] goto ER when she ate lobster Sulfa YnqkmrftpzzQgdebTzil74/12/7763TyzscdlqwztkwKapeq61/02/2005Verapamil Shortness Of WkkyqzCqzu04/20/2012 Other Reaction(s): Dyspnea Medications MedicationSigDispense QuantityRefillsLast FilledStart [...] tablet 5Active Active Problems ProblemNoted DateDiagnosed DateParoxysmal vcvbcmujzee65/04/2025Frequent PVCs 12/10/2024 Overview (12/10/2024): Patient is aware of frequent PVCs. Zio monitor April 2023 reviewed Intolerant of beta-blockers to suppress PVCs Continue home low-dose metoprolol tartrate 6.25 mg twice daily Mucous cyst of vzjwdp7612/10/2024Obstructive sleep apnea treated with continuous positive airway pressure (CPAP)12/10/2024 Overview (12/10/2024): Referred for sleep study. Patient has sleep apnea. She had a CPAP that was recalled. She quit usingit because of the recall. Pending further evaluation. 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 Per [facility] Stroke Neurology, Dr. Wagner, recommendations as follows: [...] no evidence of hemorrhagic transformation. Reviewed with [facility] Neurology, Dr. Wagner (continuity as also evaluated her last night) Patient is currently followed at [facility] in [place] for TBI. Will continue to attempt inpatient rehab placement if at all possible. Hemiparesis affecting dominant side as late effect of cerebrovascular accident (CVA)4303Moekjtu30/16/2024 Overview (12/10/2024): Manages her anxiety with p.r.n. diazepam and p.r.n. alprazolam. Likely contributing to her reports of medication intolerance. Concussion without loss of /16/2024Hypertension with intolerance to multiple antihypertensive drugs01/27/2024 Overview (12/10/2024): Patient reports intolerance to all classes of blood pressure medications. Staff Radiologist is considering renal denervation surgery for this. [...] regimen as warranted over time. Post concussion dexmqsqh00/16/2024Superficial tjphbfeltviuucrb41/16/2024Facial droop01/27/2024History of mdqudr4301/27/20247706Lidiforudj21/16/2024lteration in neurologic qucrswnv27/16/2024Elevated blood pressure reading with diagnosis of pqswqqwgranf71/16/2024Left ovarian cyst09/03/2023ight upper quadrant abdominal pain09/03/2023Exudative age-related macular degeneration, unspecified laterality, unspecified stage07/24/2023Other speech cseyamozxhr14/09/2024Stroke (cerebrum)07/06/2023ardiomyopathy, unspecified type03/18/2022aroxysmal SVT (supraventricular tachycardia)04/07/2021LVH (left ventricular hypertrophy) 01/26/2021Mast cell activation jnhzhkzy43/09/2021Hypertensive kidney disease, stage Lipid wwuvmqkh36/18/2011Sphincter of Oddi uvcougafocn91/09/2011 Esophageal zowptx3603/22/2010 Overview (01/27/2024): EGD 03/2009 Reactive gastropathy Degeneration of cervical intervertebral disc06/25/2008Raynaud's syndrome 01/02/2007Irritable bowel jnwboybn96/07/2005 Encounters DateTypeDepartmentCare CwkiEtxtrgbfklr95/01/2025 10:50 AM [facility]ADER - 02/10/2025 3:42 [facility] [address] [place] [phone] Jensen Jacob DO Chest pain, unspecified type (Primary Dx); Elevated blood pressure reading with diagnosis of hypertension Discharge Disposition: Home or Self Care02/10/20255386Cwqbxy2025 4:32 PM [facility]HE[facility] BEADER - 01/30/2025 11:46 PM [facility] [address] [place] [phone] Andrea Gamboa DO Dysarthria (Primary Dx); Right facial numbness; Nonintractable headache, unspecified chronicity pattern, unspecified headache type Discharge Disposition: Home or Self Care01/30/20251624Nttivx40/07/2025 10:30 AM [facility]ADER Office Visit [facility] [place] [address] [place] [phone] Yves Ballard MD Hyperlipidemia LDL goal <70 (Primary Dx); Elevated lipoprotein(a); Atherosclerosis of abdominal aorta; Cerebrovascular accident (CVA), unspecified mechanism (H); Statin intolerance; Hypertension with intolerance to multiple antihypertensive drugs; Medication intolerance ( multiple 40 drugs)01/17/20259225Voasxc09/29/2025 7:47 PM CDT - 01/08/2025 11:06 [facility] [address] [place] [address] Neil Marsh MD Chest pain (Primary Dx); Headache; Hypertension Discharge Disposition: Home or Self Care01/08/20251100Wxusxt70/01/2025Telephone [facility] [place] [address] [place] [phone] Yves Ballard MD Vhqwziggrcv99/30/2025 4:40 PM CDTVirtual Visit [facility] [address] [place] [phone] Yves Ballard MD Hyperlipidemia LDL goal <70; Statin intolerance; Elevated lipoprotein(a); Atherosclerosis of abdominal aorta12/09/2024[facility] [address] [place] [phone] Yves Ballard MD Patient Lonujst1712/08/2024 6:08 AM CDT - 12/08/2024 10:27 AM [facility] [address] [place] [address] Arabella Suarez MD Chest pain, unspecified type [...] drink = 0.6 oz pure alcohol)PHQ-2AnswerDate RecordedPHQ-2 Dybig681dolescent Education AnswerDate RecordedGetting School Help NeededNot on file3 CommentsNoSex and Gender InformationValueDate RecordedSex Assigned at BirthNot on fileLegal RoxUojmnd97/04/2012 3:34 AM CSTGender IdentityNot on fileSexual OrientationNot on file Last Filed Vital Signs Vital SignReadingTime TakenCommentsBlood Hckcpiiw529/9302/10/2025 3:15 PM [facility]T BEADER Ltnho335902/10/2025 3:15 PM CGTWstwkncjqbn63.3 ??C (99.1 ??F)02/10/2025 10:56 AM CSTRespiratory Vtcj261204/13/2024 12:45 PM CSTOxygen Dmdkbhmplg69%02/10/2025 12:45 PM CSTInhaled Oxygen Concentration--Nfuzbw39.1 kg (137 lb)02/10/2025 10:53 AM ZKWAipuba678.5 cm (5' 2)02/10/2025 10:53 AM CSTBody Mass Index25.0602/10/2025 10:53 AM [facility] BEADER Plan of Treatment Health MaintenanceDue DateLast DoneCommentsADVANCE CARE CSKCSZZQ87/10/1951NNUAL REVIEW OF HM IOBEEN00 1950T LJPFMSNEWLAZ77/10/9443ERKK64/10/1951FIT 1950FLEX SIG1950 9578IXZWUIWDSSAP77/10/1951DNA (Cologuard)1950 PNEUMOCOCCAL VACCINE 50+ YEARS (1 of 1 - PCV)2000RSV VACCINE (1 - Risk 50- 74 years 1-dose series)2000ZOSTER VACCINE (1 of 2)2000COVID-19 VACCINE ( - 2024- season)/06/2021, 05/23/2020INFLUENZA VACCINE (#1)2024MEDICARE ANNUAL WELLNESS VISIT/01/2024, 01/21/2022, 01/19/2021, Additional history esxibbONIUW52, 01/27/2024FALL RISK UMSSCRWBGY83/07/202611/09/2024, 06/13/2024BMP, 01/30/2025, 01/08/2025, Additional history existsMAMMO VDKJEUUZD53/16/2027 11/26/2024, 11/26/2024, 10/09/2023, Additional history existsDTAP/TDAP/TD VACCINE (3 - Td or Tdap)8011/08/2017, 05/30/2007DIABETES SCREENING , 01/30/2025, 01/30/2025, Additional history exists TNOEUBGHDYS34OLORECTAL CANCER SDPIMHPIY95/31/2033HEPATITIS C ATUTFNSZDNnhyempty13/29/2016PHQ-2 (once per calendar year)Xkyizwnqs18/30/2025, 10/17/2023, 07/25/20230559UQFXUQXFPXPxoqshapm79/20/2025, 09/27/2023, 08/27/2023HPV VACCINE (No Doses Required)CompletedMENINGITIS VACCINEAged OutNo longer eligible based on patient's age to complete this topic Procedures Procedure NamePriorityDate/TimeAssociated DiagnosisCommentsEXTRA PURPLE TOP TUBE STAT104/13/2024 12:13 PM [facility]ER EXTRA OGRXFEGX86/01/2025 12:13 PM [facility]ER BASIC METABOLIC PANEL (LIMITED OCCURRENCES)STAT104/13/2024 12:13 PM [facility]ER XR CHEST 2 KQPYHTJTM24/01/2025 11:36 AM [facility]HE[facility] BEADER CBC WITH PLATELETS AND DIFFERENTIAL (LIMITED OCCURRENCES)STAT104/13/2024 11:01 AM [facility] BEADER EXTRA BLUE TOP UGEQJRUG52/01/2025 11:01 AM [facility]ADER CBC WITH PLATELETS AND NZCBMZBJWNDHJMHZ49/01/2025 11:01 AM [facility]ADER EXTRA HVUZRZSR97/01/2025 11:01 AM [facility] BEADER TROPONIN T, HIGH FVGCOKCJULJZSMS62/01/2025 11:01 AM [facility] BEADER EKG 12-LEAD, TRACING JMYMYZAZ14/01/2025 10:51 AM [facility]ADER MR BRAIN W/O & W JYOKUGHFOHPI55/20/2025 10:31 PM [facility] BEADER EKG 12-LEAD, TRACING ZJBBPRED24/20/2025 4:59 PM [facility]ADER CBC WITH PLATELETS AND DIFFERENTIAL (LIMITED OCCURRENCES)01/30/2025 4:56 PM [facility] BEADER ROUTINE UA WITH MICROSCOPIC REFLEX TO KTGLGYFHQJL74/20/2025 4:56 PM [facility] BEADER EXTRA RED TOP NOQECCVA32/20/2025 4:56 PM [facility]ADER CBC WITH PLATELETS AND NYWZEALEPGVYVQFI04/20/2025 4:56 PM [facility] BEADER EXTRA IXOVFIUG92/20/2025 4:56 PM [facility]ER TROPONIN T, HIGH MXRKRNYVAWEYRMO03/20/2025 4:56 PM [facility] BEADER PARTIAL THROMBOPLASTIN SNNKIVSI08/20/2025 4:56 PM [facility] BEADER WDFHEBY9901/30/2025 4:56 PM [facility] BEADER BASIC METABOLIC PANEL (LIMITED OCCURRENCES)STAT104/01/2024 4:56 PM [facility]HE[facility] BEADER CTA HEAD NECK W ZBCXJBNPBNWF61/20/2025 4:[address] HEAD W/O IQXIDYPCSNDG11/20/2025 4:52 PM [facility]ADER GLUCOSE BY TMMPSQGXG17/20/2025 4:32 PM [facility]ER TROPONIN T, HIGH OBWQBKGEEKNMBOC77/29/2025 10:12 PM CDT XR CHEST 2 OPMQPQYSL68/29/2025 9:08 PM CDT D DIMER CFZOKQCLGMDJUMXS04/29/2025 8:02 PM CDT EXTRA RED TOP YEPOMEHP58/29/2025 8:02 PM CDT EXTRA BLUE TOP JHLJOXQZ00/29/2025 8:02 PM CDT EXTRA LNXQPYKJ69/29/2025 8:02 PM CDT CBC WITH PLATELETS AND DIFFERENTIAL (LIMITED OCCURRENCES)STAT1 8:01 PM CDT CBC WITH PLATELETS AND ZNCTGZYAERWUNNII90/29/2025 8:01 PM CDT TROPONIN T, HIGH OYFESRXJYHQICXG60/29/2025 8:01 PM CDT BASIC METABOLIC PANEL (LIMITED OCCURRENCES)01/08/2025 8:01 PM CDT EKG 12-LEAD, TRACING XHJVEDZM25/29/2025 7:51 PM CDT TROPONIN T, HIGH GISZWQSTVIQNXWD58/28/2025 9:02 AM CDT XR CHEST 2 QOKPZTTIB89/28/2025 8:38 AM CDT MRA NECK (CAROTIDS) W/O & W NZPTLKHKEAOE64/28/2025 8:26 AM CDT MRA BRAIN ([place]) W/O CNBBRQQSWVOQ76/28/2025 8:26 AM CDT MR BRAIN W/O & W QUDFXYUISFIB17/28/2025 8:26 AM CDT BLOOD GAS XWYEHSMEQK22/28/2025 6:57 AM CDT CBC WITH PLATELETS AND DIFFERENTIAL (LIMITED OCCURRENCES)STAT12/08/2024 6:24 AM CDT T4 OMAQGODQ02/28/2025 6:24 AM CDT MAGNESIUM (LIMITED OCCURRENCES)STAT12/08/2024 6:24 AM CDT TSH WITH FREE T4 YDGEVODQBH65/28/2025 6:24 AM CDT D DIMER OOCOZUKWASYYGYSZ70/28/2025 6:24 AM CDT HEPATIC FUNCTION PANEL (LIMITED OCCURRENCES)Add-On12/08/2024 6:24 AM CDT EXTRA RED TOP PGLYLXSF73/28/2025 6:24 AM CDT EXTRA BLUE TOP JAXHYJLB05/28/2025 6:24 AM CDT CBC WITH PLATELETS AND UDKGGBGZEWSNINMP69/28/2025 6:24 AM CDT EXTRA MALUUEGT47/28/2025 6:24 AM CDT TROPONIN T, HIGH BVJCZYTETOHGTUY50/28/2025 6:24 AM CDT BASIC METABOLIC PANEL (LIMITED OCCURRENCES)STAT12/08/2024 6:24 AM CDT EKG 12-LEAD, TRACING JILRRLTY58/28/2025 6:13 AM CDT LIPID REFLEX TO DIRECT LDL USIGERtvqlrp72/10/2024 8:29 AM [facility] BEADER Hyperlipidemia LDL goal <70 from Last 3 Months or Most Recently Relevant to Health Maintenance Results * Extra Purple Top Tube (02/10/2025 12:13 PM [facility]HET BEADER)ComponentValueRef RangeTest MethodAnalysis TimePerformed AtPathologist SignatureHold EaankbrnHDM09/01/2025 1:[address] [facility] LABORATORYSpecimen (Source)Anatomical Location / Laterality Collection Method / VolumeCollection TimeReceived TimeBloodBLOOD SPECIMEN / UnknownVenipuncture / Yrqblmf5202/10/2025 12:13 PM CST02/10/2025 12:20 PM [facility] Narrative Authorizing ProviderResult TypeResult StatusAasherman Jacob DOLAB - BLOOD ORDERABLESFinal ResultPerforming OrganizationAddressCity/State/ZIP CodePhone Number [facility] [address] [facility] (1st floor, no room number) [place] [address], [facility] * Basic Metabolic Panel (Limited Occurrences) (02/10/2025 12:13 PM [facility]HE[facility] BEADER) Only the most recent of4 resultswithin the time period is included. ComponentValueRef RangeTest MethodAnalysis TimePerformed AtPathologist Signature Namnyt160203 - 145 mmol/L104/13/2024 12:[address] [facility] LABORATORYPotassium4.03.4 - 5.3 mmol/L104/13/2024 12:[address] [facility] DVLANWDPRYAorbwvub35046 - 107 mmol/L 02/10/2025 12:[address] [facility] LABORATORYCarbon Dioxide (CO2)2522 - 29 mmol/L 02/10/2025 12:[address] [facility] LABORATORYAnion Yez056 - 15 mmol/L104/13/2024 12:[address] [facility] LABORATORYUrea Dskhevxi16.58.0 - 23.0 mg/dL02/10/2025 12:[address] [facility] LABORATORYCreatinine0.700.51 - 0.95 mg/dL02/10/2025 12:[address] [facility] LABORATORYGFR Sarcgxre39>60 mL/min/1.58o49402/10/2025 12:[address] [facility] LABORATORYComment:eGFR calculated using 2020 CKD-EPI equation.Calcium9.38.8 - 10.4 mg/dL02/10/2025 12:[address] [facility] KEDHDWVGVTUiertux3641 - 99 mg/dL02/10/2025 12:[address] [facility] LABORATORYSpecimen (Source)Anatomical Location / LateralityCollection Method / VolumeCollection TimeReceived TimeBloodBLOOD SPECIMEN / UnknownVenipuncture / Ibtgowf4002/10/2025 12:13 PM CST02/10/2025 12:20 PM [facility] Narrative Authorizing ProviderResult TypeResult StatusJensen Jacob DOLAB - BLOOD ORDERABLESFinal ResultPerforming OrganizationAddressCity/State/ZIP CodePhone Number [facility] [address] [facility], no room number) [place] [address], [facility] * XR Chest 2 Views (02/10/2025 11:36 AM [facility]T BEADER) Only the most recent of3 resultswithin the time period is included. Anatomical RegionLateralityModalityChestDigital RadiographySpecimen (Source) Anatomical Location / LateralityCollection Method / VolumeCollection Time Received Time02/10/2025 11:36 AM [facility]ER Impressions 02/10/2025 11:40 AM [facility]ER IMPRESSION: The cardiac silhouette is unchanged. No pneumothorax. No pleural effusions. No focal airspace consolidations. Narrative 02/10/2025 11:40 AM [facility]HET BEADER EXAM: XR CHEST 2 VIEWS LOCATION: [facility] DATE: 02/10/2025 INDICATION: chest pain COMPARISON: 01/08/2025 Procedure Note Jim Madera MD - 02/10/2025 EXAM: XR CHEST 2 VIEWS LOCATION: [facility] DATE: 02/10/2025 INDICATION: chest pain COMPARISON: 01/08/2025 IMPRESSION: The cardiac silhouette is unchanged. No pneumothorax. Nopleural effusions. No focal airspace consolidations. Authorizing ProviderResult TypeResult Danyel Jacob DOIMG DIAGNOSTIC IMAGING ORDERABLESFinal Result * Extra Blue Top Tube (02/10/2025 11:01 AM [facility]ER) Only the most recent of3 resultswithin the time period is included. ComponentValueRef RangeTest MethodAnalysis TimePerformed AtPathologist Signature Hold HttakpzcSTO73/01/2025 12:08 PM [facility] LABORATORYSpecimen (Source)Anatomical Location / LateralityCollection Method / VolumeCollection TimeReceived TimeBlood BLOOD SPECIMEN / UnknownVenipuncture / Yvnqreh4902/10/2025 11:01 AM CST02/10/2025 11:07 AM [facility] Narrative Authorizing ProviderResult TypeResult StatusJensen Jacob DOLAB - BLOOD ORDERABLESFinal ResultPerforming OrganizationAddressCity/State/ZIP CodePhone Number [facility] [address] [facility] ([facility], no room number) [place] [address], [facility] * CBC with platelets and differential (02/10/2025 11:01 AM [facility]) Only the most recent of4 resultswithin the time period is included. ComponentValueRef RangeTest MethodAnalysis TimePerformed AtPathologist Signature WBC Count4.964.00 - 11.00 10e3/uL02/10/2025 11:[address] [facility] LABORATORYRBC Count 3.943.80 - 5.20 10e6/uL02/10/2025 11:[address] [facility] LSMVAAGQWIVplbjdqwkm74.711.7 - 15.7 g/dL02/10/2025 11:[address] [facility] JQFQJVYVBZNwqwjdybcl12.235.0 - 47.0 % 02/10/2025 11:[address] [facility] SMMQYXXSVVTMF42.378.0 - 100.0 fL02/10/2025 11:[address] [facility] FUCOTSLPOLGCN06.726.5 - 33.0 pg02/10/2025 11:[address] [facility] LABORATORYMCHC 33.231.5 - 36.5 g/dL02/10/2025 11:[address] [facility] WZIRVRAZAXLOB04.910.0 - 15.0 % 02/10/2025 11:[address] [facility] LABORATORYPlatelet Ygepn055782 - 450 10e3/uL02/10/2025 11:[address] [facility]% Tmhcvvnwsvb40.7%02/10/2025 11:[address] [facility]% Dbumkstefcf61.0%02/10/2025 11:[address] [facility]% Monocytes6.9%02/10/2025 11:[address] [facility]% Eosinophils1.0%02/10/2025 11:[address] [facility]% Basophils0.2%02/10/2025 11:[address] [facility]% Immature Granulocytes0.2% 02/10/2025 11:[address] [facility] LABORATORYNRBCs per 100 WBC0.0<1.0 /5792702/10/2025 11:[address] [facility] LABORATORYAbsolute Neutrophils3.611.60 - 8.30 10e3/uL02/10/2025 11:[address] [facility] LABORATORYAbsolute Lymphocytes0.940.80 - 5.30 10e3/uL02/10/2025 11:[address] [facility] LABORATORYAbsolute Monocytes0.340.00 - 1.30 10e3/uL02/10/2025 11:[address] [facility] LABORATORYAbsolute Eosinophils0.050.00 - 0.70 10e3/uL02/10/2025 11:[address] [facility] LABORATORYAbsolute Basophils<0.030.00 - 0.20 10e3/uL02/10/2025 11:[address] [facility] LABORATORYAbsolute Immature Granulocytes<0.03<=0.40 10e3/uL 02/10/2025 11:[address] [facility] LABORATORYAbsolute NRBCs<0.0310e3/uL02/10/2025 11:[address] [facility] LABORATORYSpecimen (Source)Anatomical Location / LateralityCollection Method / VolumeCollection TimeReceived TimeBloodBLOOD SPECIMEN / Unknown Venipuncture / Nedwfkh3302/10/2025 11:01 AM CST02/10/2025 11:07 AM [facility] Narrative Authorizing ProviderResult TypeResult StatusAasherman Jacob DOLAB - BLOOD ORDERABLESFinal ResultPerforming OrganizationAddressCity/State/ZIP CodePhone Number [facility] [address] [facility] (1st floor, no room number) [place] [address], [facility] * Troponin T, High Sensitivity (02/10/2025 11:01 AM CROCHET BEADER) Only the most recent of6 resultswithin the time period is included. ComponentValueRef RangeTest MethodAnalysis TimePerformed AtPathologist Signature Troponin T, High Sensitivity<6<=14 ng/L104/13/2024 11:[address] [facility] Comment: Either a High Sensitivity [...] Unknown 02/10/2025 11:01 AM CST02/10/2025 11:08 AM [facility]ER Narrative Authorizing ProviderResult TypeResult StatusJensen Jacob DOLAB - BLOOD ORDERABLESFinal ResultPerforming OrganizationAddressCity/State/ZIP CodePhone Number [facility] [address] [facility] (1st floor, no room number) [place] [address] * EKG 12 lead (02/10/2025 10:51 AM [facility]HET BEADER) Only the most recent of4 resultswithin the time period is included. ComponentValueRef RangeTest MethodAnalysis TimePerformed AtPathologist Signature Systolic Blood PressuremmHgRADIOLOGY RESULTSDiastolic Blood PressuremmHg RADIOLOGY RESULTSVentricular Lrte85QMCZEKWGJNYZ RESULTSAtrial Csti74MVHVCFKMUSJD RESULTSPR Qaojlkum123guDZZCJDKCI RESULTSQRS Rrruvttt19gcNBQDWWMEK CWMDDBHXD100bv RADIOLOGY VKFRFAPGMf239okVYQAUVTUY RESULTSP Drew28tkjmlklAGZPVQXHK RESULTSR AXIS 27degreesRADIOLOGY RESULTST Nbzx70mtspkbvVYVUVQSNX RESULTSInterpretation ECG Sinus rhythm Normal ECG When compared with ECG of 30-Jan-2025 16:59, No significant change was found Unconfirmed report - interpretation of this ECG is computer generated - see medical record for final interpretation Confirmed by - EMERGENCY ROOM, PHYSICIAN ([id number]), news editor Raymundo Bustamante ([id number]) on 02/10/2025 11:34:31AM RADIOLOGY RESULTSSpecimen (Source)Anatomical Location / LateralityCollection Method / VolumeCollection TimeReceived Time02/10/2025 10:51 AM CST12/03/2024 11:34 AM [employer]OCHET BEADER Narrative Authorizing ProviderResult TypeResult StatusKristgunnar BORGES ORDERABLESEdited Result - FinalPerforming OrganizationAddressCity/State/ZIP Code Phone Number RADIOLOGY RESULTS * MR Brain w/o & w Contrast (01/30/2025 10:31 PM CROCHET BEADER) Only the most recent of2 resultswithin the time period is included. Anatomical RegionLateralityModalityHead, SUBRAD MR NEURO, UMP MR NEURO, RAD MR Magnetic ResonanceSpecimen (Source)Anatomical Location / LateralityCollection Method / VolumeCollection TimeReceived Time01/30/2025 10:31 PM [employer]OC[employer]T BEADER Impressions 01/30/2025 11:10 PM [employer]HET BEADER IMPRESSION: 1. ??No acute intracranial abnormality. 2. ??Chronic right lentiform nucleus lacunar infarct. 3. 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 Narrative 01/30/2025 11:10 PM CROCHET BEADER EXAM: MR BRAIN W/O and W CONTRAST LOCATION: [facility] DATE: 01/30/2025 INDICATION: Slurred speech, [...] MR BRAIN W/O and W CONTRAST LOCATION: [facility] DATE: 01/30/2025 INDICATION: Slurred speech, [...] Wallerian degeneration. Authorizing ProviderResult TypeResult Harish Gamboa [facility] MRI ORDERABLESFinal Result * Extra Red Top Tube (01/30/2025 4:56 PM CROCHET BEADER) Only the most recent of3 resultswithin the time period is included. ComponentValueRef RangeTest MethodAnalysis TimePerformed AtPathologist Signature Hold PadbepgvALT85/20/2025 6:[address] [facility] LABORATORYSpecimen (Source)Anatomical Location / LateralityCollection Method / VolumeCollection TimeReceived TimeBlood BLOOD SPECIMEN / UnknownVenipuncture / Azugvuk5601/30/2025 4:56 PM CST01/30/2025 5:01 PM CROCHET BEADER Narrative Authorizing ProviderResult TypeResult StatusAndrea Gamboa DOLAB - BLOOD ORDERABLES Final ResultPerforming OrganizationAddressCity/State/ZIP CodePhone Number [facility] [address] Lab (1st floor, no room number) [place] [address], [facility] * UA with Microscopic reflex to Culture (01/30/2025 4:56 PM CROCHET BEADER)ComponentValue Ref RangeTest MethodAnalysis TimePerformed AtPathologist SignatureColor Urine StrawColorless, Straw, Light Yellow, Xkcphr7301/30/2025 5:08 PM CST LABORATORY Appearance ZkiwiExzkaFzfeo98/20/2025 5:08 PM CST LABORATORYGlucose Urine NegativeNegative mg/dL01/30/2025 5:[address] [facility] LABORATORYBilirubin Urine HqgqlmkcBymunirk58/20/2025 5:[address] [facility] LABORATORYKetones UrineNegative Negative mg/dL01/30/2025 5:[address] [facility] LABORATORYSpecific [place] Urine1.010 1.003 - 1.3913801/30/2025 5:[address] [facility] LABORATORYBlood UrineNegativeNegative 01/30/2025 5:[address] [facility] LABORATORYpH Urine6.55.0 - 7.011 5:08 PM CROCHET BEADER LABORATORYProtein Albumin UrineNegativeNegative mg/dL01/30/2025 5:08 PM [facility] LABORATORYUrobilinogen UrineNormalNormal mg/dL01/30/2025 5:[address] [facility] LABORATORYNitrite ThhsoVdudqttoDvkarlmd67/20/2025 5:[address] [facility] LABORATORY Leukocyte Esterase JdusjZbcxtqfnWxsyvevm96/20/2025 5:[address] [facility] LABORATORYRBC Urine<1<=2 /HPF01/30/2025 5:[address] [facility] LABORATORYWBC Urine1<=5 /HPF01/30/2025 5:[address] [facility] LABORATORYSquamous Epithelials Urine<1<=1 /HPF01/30/2025 5:[address] [facility] LABORATORYSpecimen (Source)Anatomical Location / LateralityCollection Method / VolumeCollection TimeReceived TimeUrineURINE SPECIMEN OBTAINED BY CLEAN CATCH PROCEDURE / UnknownNon-blood Collection / Vaofbfq4401/30/2025 4:56 PM CST01/30/2025 5:01 PM [employer]OCHET BEADER Narrative LABORATORY - 01/30/2025 5:08 PM CROCHET BEADER Urine Culture not indicated Authorizing ProviderResult TypeResult StatusFerris Ye DOLAB - URINE ORDERABLES Final ResultPerforming OrganizationAddressCity/State/ZIP CodePhone Number LABORATORY [facility] Acute Care Lab [address] Lab (1st floor, no room number) [place] [address], [facility] * INR (01/30/2025 4:56 PM CROCHET BEADER)ComponentValueRef RangeTest MethodAnalysis Time Performed AtPathologist SignatureINR0.970.85 - 1.1511/ 5:[address] [facility] MTQOIPWQHIXN61.811.8 - 14.8 Ofizzkc2101/30/2025 5:[address] [facility] LABORATORYSpecimen (Source)Anatomical Location / LateralityCollection Method / VolumeCollection TimeReceived TimeBloodBLOOD SPECIMEN / UnknownVenipuncture / Eapqupr1601/30/2025 4:56 PM CST01/30/2025 5:01 PM CROCHET BEADER Narrative Authorizing ProviderResult TypeResult StatusFermartha Gamboa DOLAB - BLOOD ORDERABLES Final ResultPerforming OrganizationAddressCity/State/ZIP CodePhone Number [facility] Lab [address] Lab (1st floor, no room number) [place] [address], [facility] * Partial thromboplastin time (01/30/2025 4:56 PM CROCHET BEADER)ComponentValueRef Range Test MethodAnalysis TimePerformed AtPathologist DfpbuwboqfEKJ0824 - 38 Seconds 01/30/2025 5:[address] [facility] LABORATORYSpecimen (Source)Anatomical Location / LateralityCollection Method / VolumeCollection TimeReceived TimeBloodBLOOD SPECIMEN / UnknownVenipuncture / Ghazmpw2201/30/2025 4:56 PM CST01/30/2025 5:01 PM [employer]HET BEADER Narrative Authorizing ProviderResult TypeResult StatusAndrea Gamboa DOLAB - BLOOD ORDERABLES Final ResultPerforming OrganizationAddressCity/State/ZIP CodePhone Number [facility] [address] Lab (1st floor, no room number) [place] [address], [facility] * CTA Head Neck with Contrast (01/30/2025 4:52 PM CROCHET BEADER)Anatomical Region LateralityModalityHead, SUBRAD CT NEURO, SUBRAD CT NEURO, UMP CT NEURO, RAD CT Computed TomographySpecimen (Source)Anatomical Location / LateralityCollection Method / VolumeCollection TimeReceived Time01/30/2025 4:52 PM CROCHET BEADER Impressions 01/30/2025 5:28 PM CROCHET BEADER IMPRESSION: HEAD CTA: 1. ??No new intracranial [...] Dr Alvaro Neves at ??5:24 PM 01/30/2025 CROCHET BEADER/CDT. Narrative 01/30/2025 5:28 PM CROCHET BEADER EXAM: CTA HEAD NECK W CONTRAST LOCATION: [facility] DATE: 01/30/2025 INDICATION: Code Stroke, evaluate for LVO. Right facial numbness. Slurred speech. Headache. COMPARISON: CTA head and neck 01/27/2024, MRA head and neck 11/30/2024 CONTRAST: 71mL Eotsaqluq788 TECHNIQUE: Head and neck CT angiogram with [...] CTA head and neck 01/27/2024. Right origin [employer]MENT MANAGER NECK CTA: Right mid to distal [...] EXAM: CTA HEAD NECK W CONTRAST LOCATION: [facility] DATE: 01/30/2025 INDICATION: Code Stroke, evaluate for LVO. Right facial numbness. Slurredspeech. Headache. COMPARISON: CTA head and neck 01/27/2024, MRA head and neck 11/30/2024 CONTRAST: 71mL Flcrjzibw818 TECHNIQUE: Head and neck CT angiogram with [...] priorCTA head and neck 01/27/2024. Right origin [employer]MENT MANAGER NECK CTA: Right mid to distal [...] PM 5CST/CDT. Authorizing ProviderResult TypeResult StatusFerris Cooper [facility] CT ORDERABLESFinal Result * CT Head w/o Contrast (01/30/2025 4:52 PM CROCHET BEADER)Anatomical RegionLaterality ModalityHead, SUBRAD CT NEURO, SUBRAD CT NEURO, UMP CT NEURO, RAD CTComputed TomographySpecimen (Source)Anatomical Location / LateralityCollection Method / VolumeCollection TimeReceived Time01/30/2025 4:52 PM CROCHET BEADER Impressions 01/30/2025 5:28 PM CROCHET BEADER IMPRESSION: 1. ??No acute cranial hemorrhage identified. 2. ??No evidence CT acute infarct. Aspect score 10. 3. ??Chronic intracranial changes described above. Dr Andrea Gamboa was notified by Dr Alvaro Neves at ??5:07 PM 01/30/2025 CROCHET BEADER/CDT. Narrative 01/30/2025 5:28 PM CROCHET BEADER EXAM: CT HEAD W/O CONTRAST LOCATION: [facility] DATE: 01/30/2025 INDICATION: Code Stroke, [...] 01/30/2025 EXAM: CT HEAD W/O CONTRAST LOCATION: [facility] DATE: 01/30/2025 INDICATION: Code Stroke, [...] PM 5CST/CDT. Authorizing ProviderResult TypeResult StatusFermartha Gamboa [facility] CT ORDERABLESFinal Result * (ABNORMAL) Glucose by meter (01/30/2025 4:32 PM CROCHET BEADER)ComponentValueRef Range Test MethodAnalysis TimePerformed AtPathologist SignatureGLUCOSE BY METER POCT 112(H)70 - 99 mg/dL01/30/2025 4:39 PM CST LABORATORY POCComment:Dr/RN NotifiedSpecimen (Source)Anatomical Location / LateralityCollection Method / VolumeCollection TimeReceived TimeBlood, CapillaryBLOOD SPECIMEN / Unknown 01/30/2025 4:32 PM CST01/30/2025 4:39 PM CROCHET BEADER Narrative Authorizing ProviderResult TypeResult StatusProvider UnknownLAB - BEAKER POCT Final ResultPerforming OrganizationAddressCity/State/ZIP CodePhone Number LABORATORY [facility] Acute Care Lab [address] Lab (1st floor, no room number) [place] [address], [facility] * D dimer quantitative (01/08/2025 8:02 PM CDT) Only the most recent of2 resultswithin the time period is included. ComponentValueRef RangeTest MethodAnalysis TimePerformed AtPathologist Signature D-Dimer Quantitative0.360.00 - 0.50 ug/mL FEU1 8:26 PM CDTRH LABORATORY Specimen (Source)Anatomical Location / LateralityCollection Method / Volume Collection TimeReceived TimeBloodSTRUCTURE OF RIGHT UPPER LIMB / Unknown Venipuncture / Hiccfcs5201/08/2025 8:02 PM CDT1 8:06 PM CDT Narrative [...] out pulmonary embolism: The ADJUST-PE Study. TEODORO 2014;311:7440-0946.; HJ Godwin et al. Diagnostic accuracy of conventional or age adjusted D-dimer cutoff values in older patients with suspected venous thromboembolism. Systemic review and meta- analysis. BMJ 2013:346:f2492. Authorizing ProviderResult TypeResult StatusKira JOSE - BLOOD ORDERABLESFinal ResultPerforming OrganizationAddressCity/State/ZIP CodePhone Number LABORATORY [facility] Acute Care Lab [address] Lab (1st floor, no room number) [place] [address], [facility] * MRA Angiogram Neck w/o & w [...] (CAROTIDS) W/O and W CONTRAST, MRA BRAIN ([place]) W/O CONTRAST LOCATION: [facility] DATE: 12/08/2024 INDICATION: headache, ataxia, vertigo COMPARISON: CT angiogram dated 01/27/2024. Brain MRI dated 01/27/2024. Brain MRI and head and neck MR angiograms dated 09/27/2023. CONTRAST: 10 mL Gadavist intravenous TECHNIQUE: 1) Routine multiplanar multisequence head MRI without and with intravenous contrast. 2) 3D bwef-ah-whhebu head MRA without intravenous contrast. 3) Neck [...] of the great vessels. Procedure Note Oskar Suaerz MD - 12/08/2024 EXAM: MR BRAIN W/O and W CONTRAST, MRA NECK (CAROTIDS) W/O and W CONTRAST,MRA BRAIN ([place]) W/O CONTRAST LOCATION: [facility] DATE: 12/08/2024 INDICATION: headache, ataxia, vertigo COMPARISON: CT angiogram dated 01/27/2024. Brain MRI dated 01/27/2024.Brain MRI and head and neck MR angiograms dated 09/27/2023. CONTRAST: 10 mL Gadavist intravenous TECHNIQUE: 1) Routine multiplanar multisequence head MRI without and with intravenous contrast. 2) 3D ajmx-ni-ywjblf head MRA without intravenous contrast. 3) Neck [...] (CAROTIDS) W/O and W CONTRAST, MRA BRAIN ([place]) W/O CONTRAST LOCATION: [facility] DATE: 12/08/2024 INDICATION: headache, ataxia, vertigo COMPARISON: CT angiogram dated 01/27/2024. Brain MRI dated 01/27/2024. Brain MRI and head and neck MR angiograms dated 09/27/2023. CONTRAST: 10 mL Gadavist intravenous TECHNIQUE: 1) Routine multiplanar multisequence head MRI without and with intravenous contrast. 2) 3D gwpd-ep-smvtbx head MRA without intravenous contrast. 3) Neck [...] NECK (CAROTIDS) W/O and W CONTRAST,MRA BRAIN ([place]) W/O CONTRAST LOCATION: [facility] DATE: 12/08/2024 INDICATION: headache, ataxia, vertigo COMPARISON: CT angiogram dated 01/27/2024. Brain MRI dated 01/27/2024.Brain MRI and head and neck MR angiograms dated 09/27/2023. CONTRAST: 10 mL Gadavist intravenous TECHNIQUE: 1) Routine multiplanar multisequence head MRI without and with intravenous contrast. 2) 3D covp-bh-mjytvm head MRA without intravenous contrast. 3) Neck [...] Venous7.377.32 - 7.4309 7:04 AM CDTRH LABORATORYpCO2 Tnnxrx7575 - 50 mm Hg12/08/2024 7:04 AM CDTRH LABORATORYpO2 Sergzu47(H)25 - 47 mm Hg12/08/2024 7:04 AM CDTRH LABORATORYBicarbonate Lswxgt1663 - 28 mmol/L12/08/2024 7:04 AM CDTRH LABORATORYBase Excess/Deficit Venous0.7-3.0 - 3.0 mmol/L12/08/2024 7:04 AM CDT RH AJAPJSUFCSLXO70 TAWANDA 12/08/2024 7:04 AM CDTRH LABORATORYComment:2L NCOxyhemoglobin Rwxomt62(H)70 - 75 %12/08/2024 7:04 AM CDTRH LABORATORYO2 Sat, Zqwsck13.5(H)70.0 - 75.0 %12/08/2024 7:04 AM CDTRH LABORATORYSpecimen (Source)Anatomical Location / Laterality Collection Method / VolumeCollection TimeReceived TimeBlood, venousSTRUCTURE OF LEFT UPPER LIMB / UnknownVenipuncture / Yawjlim1012/08/2024 6:57 AM CDT12/08/2024 7:02 AM CDT Narrative LABORATORY - 12/08/2024 7:04 AM CDT In healthy individuals, oxyhemoglobin (O2Hb) and oxygen saturation (SO2) are approximately equal. In the presence of dyshemoglobins, oxyhemoglobin can be considerably lower than oxygen saturation. Authorizing ProviderResult TypeResult StatusTracy Richa Suarez MDLAB - BLOOD ORDERABLESFinal ResultPerforming OrganizationAddressCity/State/ZIP CodePhone Number [facility] Lab [address] Lab (1st floor, no room number) [place] [address], [facility] * Hepatic Function Panel (Limited Occurrences) (12/08/2024 6:24 AM CDT)Component ValueRef RangeTest MethodAnalysis TimePerformed AtPathologist SignatureProtein Total7.26.4 - 8.3 g/dL12/08/2024 7:35 AM CDTRH LABORATORYAlbumin4.43.5 - 5.2 g/dL12/08/2024 7:35 AM CDTRH LABORATORYBilirubin Total0.4<=1.2 mg/dL12/08/2024 7:35 AM CDTRH LABORATORYAlkaline Jjlpvhptwme9316 - 150 U/L12/08/2024 7:35 AM CDTRH DVJNVPZUPCPHH765 - 45 U/L12/08/2024 7:35 AM CDTRH PUNOUNDFVPYLX489 - 50 U/L12/08/2024 7:35 AM CDTRH LABORATORYBilirubin Direct0.110.00 - 0.30 mg/dL 12/08/2024 7:35 AM CDTR LABORATORYComment:As of 07/24/24, reference ranges and trending lines may vary depending on the testing location.Specimen (Source) Anatomical Location / LateralityCollection Method / VolumeCollection Time Received TimeBloodBLOOD SPECIMEN / UnknownVenipuncture / Zijdpfa0212/08/2024 6:24 AM CDT12/08/2024 6:29 AM CDT Narrative Authorizing ProviderResult TypeResult StatusTracy Richa WARREN - BLOOD ORDERABLESFinal ResultPerforming OrganizationAddressCity/State/ZIP CodePhone Number [facility] Lab [address] Lab (1st floor, no room number) [address] * Magnesium (Limited Occurrences) (12/08/2024 6:24 AM CDT)ComponentValueRef RangeTest MethodAnalysis TimePerformed AtPathologist SignatureMagnesium1.91.7 - 2.3 mg/dL12/08/2024 7:35 AM CDTRH LABORATORYSpecimen (Source)Anatomical Location / LateralityCollection Method / VolumeCollection TimeReceived Time BloodBLOOD SPECIMEN / UnknownVenipuncture / Rbmquyy1612/08/2024 6:24 AM CDT 12/08/2024 6:29 AM CDT Narrative Authorizing ProviderResult TypeResult StatusTracy Richa WARREN - BLOOD ORDERABLESFinal ResultPerforming OrganizationAddressCity/State/ZIP CodePhone Number [facility] [address] Lab (1st floor, no room number) [address] * (ABNORMAL) TSH with free T4 reflex (12/08/2024 6:24 AM CDT)ComponentValueRef RangeTest MethodAnalysis TimePerformed AtPathologist SignatureTSH6.47(H)0.30 - 4.20 uIU/mL12/08/2024 7:39 AM CDTRH LABORATORYSpecimen (Source)Anatomical Location / LateralityCollection Method / VolumeCollection TimeReceived Time BloodBLOOD SPECIMEN / UnknownVenipuncture / Gkrtxyr9712/08/2024 6:24 AM CDT 12/08/2024 6:29 AM CDT Narrative Authorizing ProviderResult TypeResult StatusTracy Richa WARREN - BLOOD ORDERABLESFinal ResultPerforming OrganizationAddressCity/State/ZIP CodePhone Number [facility] [address] Lab (1st floor, no room number) [address] * T4 free (12/08/2024 6:24 AM CDT)ComponentValueRef RangeTest MethodAnalysis TimePerformed AtPathologist SignatureFree T41.190.90 - 1.70 ng/dL12/08/2024 8:37 AM CDTRH LABORATORYSpecimen (Source)Anatomical Location / Laterality Collection Method / VolumeCollection TimeReceived TimeBloodBLOOD SPECIMEN / UnknownVenipuncture / Dtigkly5712/08/2024 6:24 AM CDT12/08/2024 6:29 AM CDT Narrative Authorizing ProviderResult TypeResult StatusTracy Richa Suarez MDLAB - BLOOD ORDERABLESFinal ResultPerforming OrganizationAddressCity/State/ZIP CodePhone Number [facility] Lab [address] Lab (1st floor, no room number) [place] [address], [facility] * (ABNORMAL) Lipid panel reflex to direct LDL Fasting (02/20/2024 8:29 AM CROCHET BEADER) ComponentValueRef RangeTest MethodAnalysis TimePerformed AtPathologist ZqlphpicqKxvrrseviuw561(H)<200 mg/dL02/20/2024 4:11 PM CSTUU LABORATORY Tsnynyjwfkshh682(H)<150 mg/dL02/20/2024 4:11 PM CSTUU LABORATORYDirect Measure HDL47(L)>=50 mg/dL02/20/2024 4:11 PM CSTUU LABORATORYLDL Cholesterol Jehftpmakg100(H)<100 mg/dL02/20/2024 4:11 PM CSTUU LABORATORYNon HDL Lbewfnqcotn342(H)<130 mg/dL02/20/2024 4:11 PM CSTUU LABORATORYPatient Fasting > 8hrs?Yes02/20/2024 4:11 PM CSTUU LABORATORYSpecimen (Source)Anatomical Location / LateralityCollection Method / VolumeCollection TimeReceived Time BloodBLOOD SPECIMEN / UnknownVenipuncture / Krvfszq0202/20/2024 8:29 AM CROCHET BEADER 02/20/2024 8:29 AM CROCHET BEADER Narrative [facility] - 02/20/2024 4:11 PM CROCHET BEADER Cholesterol Desirable: < 200 mg/dL Borderline High: [...] ResultPerforming OrganizationAddressCity/State/ZIP Code Phone Number [facility]AT[facility] [place] [facility] [address] [facility] [place] [address] from Last 3 Months or Most Recently Relevant to Health Maintenance Insurance Advance Directives For more information, please contact: [phone] * Full Code (Latest Code Status on File) Date ActivatedDate SccavoooazmRgaibwpk47/16/2024 8:00 PM01/28/2024 2:50 PMAll basic and advanced [...] DateEnd Date Kyra Perera [address] [place] [address] PCP - GeneralPhysician Assistant03/31/22 Angel Hollins MD [address] [facility] [place] [address] Neurology07/20/23 Petra Dorado PA [address] [place], [place] [address] Physician AssistantPhysical Medicine and Rehabilitation07/20/23 Angel Hollins MD [address] [facility] [place] [address] Assigned Neuroscience Provider08/03/23 Yves Ballard MD [address] [facility] [address] [address] [place] [id number] Assigned Heart and Vascular Provider12/04/23
--- OUTSIDE RECORDS SUMMARY | 2025-03-08 14:39 | XMS_ITS | Clinical Summary ---
Author Organization [facility] Address [address] [place] [address] Care Team Providers Care Loss Prevention And Safety Manager Name Role Phone Bettye Davis MD [...] for each transition of care or referral. [facility] Allergies Active AllergyReactionsCriticalityNoted CfnhLarhonxpCpjuzpellqbw38/18/2011 Caused myalgias. VhefwmutiIrcrzrn71/01/6398PemtfouopfvTpaiifrxpzu25/01/2012Hydrochlorothiazide 09/26/2007 ? asthma Hydrocodone-AcetaminophenNausea And Gwtcrxiz43/19/6697Uezoggfgy60/14/2011 Pt reports depression EpfyiyiuflCymc62/02/2716Dvryxhlu22/12/2226Gxkcamlwsvu22/12/2007Rosuvastatin 10/28/2010 Caused myalgias. Shellfish Protein-Containing Drug PblcfopdJfmkhkyrinPkqa26/01/2011 Had severe pain and swelling after lobster Sulfa QqxdeuywuiuGegjrGiae61/12/2007 Medications MedicationSigDispense QuantityRefillsLast FilledStart DateEnd DateStatus ALPRAZolam (XANAX) 0.25 MG tablet TAKE 1/2 TABLET TWICE DAILY ECFXRC5110/05/2016Active aspirin, enteric-coated 81 MG enteric coated tablet [...] InformationValueDate RecordedSex Assigned at BirthNot on fileLegal WytPsmnus74/10/2012 6:33 AM CDTGender Identity Not on fileSexual OrientationNot on file Plan of Treatment Health MaintenanceDue DateLast DoneCommentsHep C Screening (Preventive Services) 1950Medicare Annual Wellness Visit1950 6511Sdnhinscuvl18/10/1996 Pneumococcal Vaccine 50+ Yrs (1 of 1 - PCV)2000Zoster/Shingles Vaccine (1 of 2)2000Colon Cancer Screening Plan Due04/21/170543/10/20124062Mxne38/10/2016 DTaP/Tdap/Td Vaccine (2 - Tdap)Mammogram12/08/2022 12/08/2021, 01/05/2012COVID-19 [...] Team MemberRelationshipSpecialtyStart DateEnd Date Bettye Davis MD [address] [place], [place] [id number] [facility]06/13/10
--- NOTE | 2025-03-08 15:29 | ED.ARRPALP ---
HPI - Arrhythmia/Palpitations General Chief Complaint: Arrhythmia/Palpitations Stated Complaint: low pulse heart complications Time Seen by Provider: 03/08/25 14:41 History of Present Illness HPI narrative: This 74-year-old female comes in with her reporting palpitations and states that sometimes her heart rate jumps down to around 40 beats per minute and then back up to normal rate and rhythm. She has been in numerous times with complaints of these types of symptoms and has had previous workups with no significant findings except for PVCs. She has worn a Zio patch on a couple different occasions in the past month or so. She has taken them off prematurely and then states after removing it she starts to have symptoms again. She has many allergies and had been on a beta-aston but discontinue this could is she did not care for adverse effects. She arrives here with normal vital signs but does have elevated blood pressure. She does report a history of a stroke. She does not show any residual affects from the stroke. Related Data Home Medications ?Medication ?Instructions ?Recorded ?Confirmed alprazolam 0.25 mg tablet 0.125 mg PO TID PRN 10/03/21 02/26/25 cholecalciferol (vitamin D3) 50 50 mcg PO DAILY 10/03/21 02/26/25 mcg (2,000 unit) tablet fluticasone propionate 50 1 - 2 spray intranasal DAILY PRN 10/03/21 02/26/25 mcg/actuation nasal spray,suspension nitroglycerin 0.4 mg sublingual 0.4 mg sublingual Q5M PRN 10/03/21 02/26/25 tablet aspirin 81 mg capsule 81 mg PO DAILY 02/15/22 02/26/25 diazepam 5 mg tablet 2.5 - 5 mg PO Q6H PRN anxiety 07/01/23 02/26/25 famotidine 10 mg tablet 10 mg PO DAILY 07/01/23 02/26/25 furosemide 20 mg tablet 20 mg PO Q OTHER DAY PRN 07/01/23 02/26/25 metoprolol succinate 25 mg mg PO 02/21/25 02/26/25 tablet,extended release 24 hr metoprolol tartrate 25 mg tablet 25 mg PO BID 02/21/25 02/26/25 Previous Rx's ?Medication ?Instructions ?Recorded propranolol 10 mg tablet 10 mg PO BID #60 tabs 03/08/25 Allergies Allergy/AdvReac Type Severity Reaction Status Date / Time Penicillins Allergy Severe Throat Verified 02/21/25 16:54 Closing amlodipine Allergy Intermediate Palpitation Verified 02/21/25 16:54 s atorvastatin Allergy Intermediate Myalgia Verified 02/21/25 16:54 chlorthalidone Allergy Intermediate Dyspnea Verified 02/21/25 16:54 clonidine Allergy Intermediate Dyspnea Verified 02/21/25 16:54 diltiazem Allergy Intermediate Anxiety Verified 02/21/25 16:54 doxazosin Allergy Intermediate Bleeding Verified 02/21/25 16:54 hydralazine Allergy Intermediate Tachycardia Verified 02/21/25 16:54 hydrochlorothiazide Allergy Intermediate Dyspnea Verified 02/21/25 16:54 labetalol Allergy Intermediate Dyspnea Verified 02/21/25 16:54 lisinopril Allergy Intermediate Chest Pain Verified 02/21/25 16:54 lobster Allergy Intermediate Verified 02/21/25 16:54 lorazepam (From Ativan) Allergy Intermediate Depression Verified 02/21/25 16:54 losartan Allergy Intermediate Dyspnea Verified 02/21/25 16:54 methyldopa Allergy Intermediate Rash Verified 02/21/25 16:54 metoprolol Allergy Intermediate Dyspnea Verified 02/21/25 16:54 metronidazole (From Flagyl) Allergy Intermediate Hives Verified 02/21/25 16:54 milk Allergy Intermediate Verified 02/21/25 16:54 rosuvastatin Allergy Intermediate Myalgia Verified 02/21/25 16:54 verapamil Allergy Intermediate Dyspnea Verified 02/21/25 16:54 morphine Allergy Mild Hives Verified 02/21/25 16:54 Sulfa (Sulfonamide Allergy Mild Hives Verified 02/21/25 16:54 Antibiotics) lactose Allergy Unknown Verified 02/21/25 16:54 latex Allergy Unknown Verified 02/21/25 16:54 hydrocodone AdvReac Intermediate Nausea/Vomi Verified 02/21/25 16:54 ting olmesartan AdvReac Intermediate Verified 02/21/25 16:54 Review of Systems Status of ROS: Reports: 10 or more systems reviewed and unremarkable except as noted in History and below Narrative: Constitutional: No fevers, no weight gain or loss. Eyes: No discharge. No vision changes. HENT: No congestion, no sore throat, no ear pain. Cardiovascular: Palpitations as described above. Respiratory: No shortness of breath, no wheezes, no cough. Gastrointestinal: No abdominal pain, no vomiting, no diarrhea. Genitourinary: No dysuria, no hematuria. Musculoskeletal: Normal range of motion. Skin: No rashes, no pruritis. Neurological: No weakness, sensory change, speech change. She reports lightheadedness episodes. Endo/Heme/Allergies: No bruising or bleeding. No polydipsia. Pysch: no suicidality, no insomnia. Anxiety about her health. All other systems reviewed and are negative. 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) ?D89.40 - Mast cell activation, unspecified (ICD-10) LVH (left ventricular hypertrophy) (01/26/21) ?I51.7 - Cardiomegaly (ICD-10) TBI (traumatic brain injury) ?S06.9XAA - Unspecified intracranial injury with loss of consciousness status unknown, initial encounter (ICD-10) Frequent PVCs ?I49.3 - Ventricular premature depolarization (ICD-10) Anxiety ?F41.9 - Anxiety disorder, unspecified (ICD-10) Statin intolerance ?Z78.9 - Other specified health status (ICD-10) Hypertension with intolerance to multiple antihypertensive drugs ?I10 - Essential (primary) hypertension (ICD-10) Viral infection ?B34.9 - Viral infection, unspecified (ICD-10) Upper back pain ?M54.9 - Dorsalgia, unspecified (ICD-10) Tinnitus ?H93.19 - Tinnitus, unspecified ear (ICD-10) Obstructive sleep apnea treated with continuous positive airway pressure (CPAP) ?G47.33 - Obstructive sleep apnea (adult) (pediatric) (ICD-10) Headache ?R51.9 - Headache, unspecified (ICD-10) Excessive daytime sleepiness ?G47.19 - Other hypersomnia (ICD-10) Encounter for follow-up ?Z09 - Encounter for follow-up examination after completed treatment for conditions other than malignant neoplasm (ICD-10) Disorder of paranasal sinus ?J34.9 - Unspecified disorder of nose and nasal sinuses (ICD-10) Difficulty sleeping ?G47.9 - Sleep disorder, unspecified (ICD-10) Chest pain ?R07.9 - Chest pain, unspecified (ICD-10) Abdominal pain ?R10.9 - Unspecified abdominal pain (ICD-10) Surgical History Hx of removal of ovary H/O section ?Z98.891 - History of uterine scar from previous surgery (ICD-10) H/O resection of rib ?Z98.890 - Other specified postprocedural states (ICD-10) History of tonsillectomy ?Z90.89 - Acquired absence of other organs (ICD-10) Hx of cholecystectomy ?Z90.49 - Acquired absence of other specified parts of digestive tract (ICD-10) History of appendectomy ?Z90.49 - Acquired absence of other specified parts of digestive tract (ICD-10) Family History Brother Prostate cancer Heart disease Sister Lung cancer Social History Narrative: She lives in [place]. Accompanied today by her son David. She does not smoke. She does not drink alcohol. What is your current living situation?: I presently have a place to live Problems where you live: no known problems Problems where you live details: none In the past 12 months, utilities in danger of being shut off: no In past 12 months, lack of transportation kept you from medical appts, meetings, work, or getting things needed for daily living: no In the past 12 mos, have been you worried that your food would run out before you had money to buy more?: never true In the past 12 mos, the food you bought just didn't last and you didn't have money to buy more?: never true Highest level of school completed/degree received: some college, no degree Smoking Status: Never smoker Do you use any of these nicotine containing products: None Second hand tobacco smoke exposure: No How often do you have a drink containing alcohol: never AUDIT-C Alcohol total score: 0 Non-prescribed substance use: denies use Caffeine: No How often does anyone, including family, friends and others, physically hurt you: never How often does anyone, including family, friends and others, insult or talk down to you: never How often does anyone, including family, friends and others, threaten you with harm: never How often does anyone, including family, friends and others, scream or curse at you: never service: No Exam Narrative: Exam Narrative: Constitutional: Well-developed, well-nourished, no acute distress. HEENT: Normocephalic, atraumatic. Neck: Normal range of motion. Nontender. Supple. Heart: Regular. No murmurs. Normal rate. Intact distal pulses. Lungs: Clear to auscultation. No chest discomfort. No wheezes, rhonchi, or rales. Abdomen: Normal bowel sounds. Nontender. No rebound tenderness. Genitalia: Deferred. Back: No midline tenderness. Normal range of motion. Extremities: Normal range of motion. No injury. Skin: Intact. No rash. Warm. No erythema or pallor. Neurologic: No altered sensation. No weakness. Alert and oriented. Psychiatric: No suicidality. No insomnia. She is anxious about her health and reports adverse affects to most medications and treatments. Nursing notes and vitals signs are reviewed. Const: Vital Signs, click to edit/add: Vital Signs - 24 hr 03/08/25 14:41 03/08/25 15:45 03/08/25 15:51 Temperature 98 F Pulse Rate [Pulse Oximeter] 81 Respiratory Rate 24 22 14 Blood Pressure 148/85 H Blood Pressure [Ri ght Upper Arm] 227/102 H Pulse Oximetry 97 Oxygen Delivery Me thod Room Air 03/08/25 15:52 03/08/25 16:02 03/08/25 16:15 Temperature Pulse Rate [Pulse Oximeter] Respiratory Rate 16 18 22 Blood Pressure 153/81 H 135/78 Blood Pressure [Ri ght Upper Arm] Pulse Oximetry Oxygen Delivery Me thod 03/08/25 16:32 Temperature Pulse Rate [Pulse Oximeter] Respiratory Rate 15 Blood Pressure 138/81 Blood Pressure [Ri ght Upper Arm] Pulse Oximetry Oxygen Delivery Me thod Room Air Course Vital Signs Vital signs: Initial Vital Signs Temperature 98 F 03/08/25 14:41 Temperature Source Temporal Artery Scan 03/08/25 14:41 Pulse Rate 81 03/08/25 14:41 Respiratory Rate 24 03/08/25 14:41 Blood Pressure 227/102 H 03/08/25 14:41 Blood Pressure Mean 143 H 03/08/25 14:41 Blood Pressure Position Sitting 03/08/25 14:41 Pulse Oximetry 97 03/08/25 14:41 Oxygen Delivery Method Room Air 03/08/25 14:41 Vital Signs Temperature 98 F 03/08/25 14:41 Pulse Rate 81 03/08/25 14:41 Respiratory Rate 24 03/08/25 14:41 Blood Pressure 227/102 H 03/08/25 14:41 Pulse Oximetry 97 03/08/25 14:41 Oxygen Delivery Method Room Air 03/08/25 14:41 Temperature 98 F 03/08/25 14:41 Pulse Rate 81 03/08/25 14:41 Respiratory Rate 15 03/08/25 16:32 Blood Pressure 138/81 03/08/25 16:32 Pulse Oximetry 97 03/08/25 14:41 Oxygen Delivery Method Room Air 03/08/25 16:32 MDM - Arrhythmia/Palpitations MDM Narrative Medical decision making narrative: This patient comes in reporting feelings of lightheadedness and palpitations. She has had several workups and has had a Zio patch to try to capture her symptoms and heart rhythm. Today her EKG looks normal and on the monitor strip she does show occasional PVCs. She feels each 1 of these and states that sometimes at home they seem to happen more frequently. This could explain her symptoms of lightheadedness. She did have a Zio patch on until earlier today and decided to take it off after about a week. It was after this that she began to have symptoms again. There is a fair amount of anxiety related to all of this with her. She had seen me before in the past and I did prescribe a low dose of propranolol which she states really seem to help her. The beta-blockade along with his anxiety benefits may be appropriate for her. She had labs done today and these all returned with normal findings. In particular her troponin, magnesium, and thyroid stimulating hormone levels are all normal. This was reassuring to her and she feels okay to return home. She has follow-up plans with her primary doctor and at the [facility]. She does have metoprolol and a small dose that she can take at home and I did prescribe propranolol again for her at 10 mg twice daily as needed. Lab Data Labs: Lab Results 03/08/25 03/08/25 Range/Units 15:28 15:36 WBC 5.55 (4.50-11.00) K/uL RBC 4.90 (4.00-5.20) m/uL Hgb 14.4 (12.0-16.0) gm/dL Hct 45.2 (33.0-51.0) % MCV 92 (80-100) fL MCH 29 (26-34) pg MCHC 32 (32-36) gm/dL RDW Coeff of Jaylen 13.0 (11.5-15.5) % Plt Count 203 (140-440) K/uL Neut % (Auto) 59.6 (42.0-72.0) % Lymph % (Auto) 27.9 (20-44) % Gibson % (Auto) 9.2 (0.0-11.0) % Eos % (Auto) 2.7 (0.0-7.0) % Baso % (Auto) 0.4 (0.0-3.0) % Neut # (Auto) 3.31 (1.7-7.0) K/uL Lymph # (Auto) 1.55 (0.90-2.90) K/uL Gibson # (Auto) 0.50 (0.00-0.90) K/UL Eos # (Auto) 0.15 (0.00-0.50) K/uL Baso # (Auto) 0.02 (0.00-0.30) K/uL Abs Immat Gran (auto) 0.01 (0.00-0.30) K/uL Imm/Tot Granulo (auto) 0.2 % Sodium 138 (135-149) mmol/L Potassium 4.2 (3.6-5.1) mmol/L Chloride 104 (96-114) mmol/L Carbon Dioxide 28 (20-32) mmol/L Anion Gap 6 L (7-15) mEq/L BUN 15 (7-30) mg/dL Creatinine 0.9 (0.5-1.5) mg/dL Estimated Creat Clear 39.04 Estimated GFR 67 ml/min Glucose 107 (60-115) mg/dL Calcium 9.3 (8.4-10.6) mg/dL Magnesium 1.8 (1.5-2.6) mg/dL POC Troponin I High Sensi 5.7 (2.9-13.0) pg/mL TSH 1.410 (0.270-4.20) uIU/mL ECG Data Attestation: I personally reviewed and interpreted this ECG as follows: Interpretation: Normal sinus rhythm. Rate is 79 beats per minute. There are no ST or T-wave abnormalities. Discharge Plan Discharge Clinical Impression: Palpitations, Ventricular premature beats Patient Disposition: Home, Self-Care Condition: Stable Additional Instructions: Continue current plans. Okay to take metoprolol as directed and also use propranolol as needed and directed for symptomatic relief. Prescriptions: New propranolol 10 mg tablet 10 mg PO BID Qty: 60 0RF No Action aspirin 81 mg capsule 81 mg PO DAILY alprazolam 0.25 mg tablet 0.125 mg PO TID PRN nitroglycerin 0.4 mg tablet, sublingual 0.4 mg sublingual Q5M PRN Patient Comments: Every 5 Minutes X 3 as needed fluticasone propionate 50 mcg/actuation spray,suspension 1 - 2 spray INTRANASAL DAILY PRN cholecalciferol (vitamin D3) 50 mcg (2,000 unit) tablet 50 mcg PO DAILY furosemide 20 mg tablet 20 mg PO Q OTHER DAY PRN famotidine 10 mg tablet 10 mg PO DAILY diazepam 5 mg tablet 2.5 - 5 mg PO Q6H PRN (Reason: anxiety) metoprolol succinate 25 mg tablet extended release 24 hr PO metoprolol tartrate 25 mg tablet 25 mg PO BID Follow Up/Referrals: Kyra Perera PA-C [Primary Care Provider, Family Practice] Stand Alone Forms: Health Integrated Info Instructions
[2025-03-08 16:02] LABS: Hematocrit* 45.2 % (33.0-51.0); Hemoglobin* 14.4 gm/dL (12.0-16.0); Immature Granulocytes Abs Auto 0.01 K/uL (0.00-0.30); Immature Granulocytes Pct Auto 0.2 %; Lymphocytes Absolute Auto 1.55 K/uL (0.90-2.90); Mean Corpuscular HGB Conc 32 gm/dL (32-36); Mean Corpuscular Hemoglobin 29 pg (26-34); Mean Corpuscular Volume 92 fL (80-100); RDW Coefficient of Variation % 13.0 % (11.5-15.5); Red Blood Count* 4.90 m/uL (4.00-5.20); White Blood Count* 5.55 K/uL (4.50-11.00)
[2025-03-08 16:04] LABS: Chloride* 104 mmol/L (96-114); Potassium* 4.2 mmol/L (3.6-5.1); Sodium* 138 mmol/L (135-149)
[2025-03-08 16:07] LABS: Anion Gap 6 mEq/L (7-15); Blood Urea Nitrogen* 15 mg/dL (7-30); Calcium* 9.3 mg/dL (8.4-10.6); Carbon Dioxide* 28 mmol/L (20-32); Creatinine* 0.9 mg/dL (0.5-1.5); Est. Creatinine Clearance* 39.04; Estimated Glomerular Filt Rate 67 ml/min; Glucose* 107 mg/dL (60-115); Slide Review Reflex No
== END 2025-03-08 18:33 | disposition home or self-care (01) ==
PROVIDERS: Emergency Provider Emergency Medicine Emergency Medical Services; PCP Physician Assistant Medical
DX: I49.3 Ventricular premature depolarization (principal); R00.2 Palpitations; F41.9 Anxiety disorder, unspecified; Z79.899 Other long term (current) drug therapy; Z86.73 Personal history of transient ischemic attack (TIA), and cerebral infarction without residual deficits
CPT/HCPCS: 36415; 80048; 83735; 84443; 84484; 85025; 93005; 99284; 99285